=== PATIENT | female | born 2000 | race Caucasian/White ===

== ENCOUNTER 2024-02-06 09:15 | Outpatient (OUT) | payer OTHER, SELFPAY ==
[2024-02-06 10:31] LABS: Estimated Average Glucose 88 mg/dL; Glycohemoglobin A1C 4.7 % (4.5-6.2)
[2024-02-06 10:43] LABS: Thyroid Stimulating Hormone 1.626 uIU/mL (0.358-3.740); Total Protein 6.9 g/dL (6.4-8.2)
[2024-02-07 15:08] LABS: Beta-2 Glycoprotein I Ab, IgA <9 (0-25); Beta-2 Glycoprotein I Ab, IgG <9 (0-20); Beta-2 Glycoprotein I Ab, IgM <9 (0-32)
[2024-02-08 00:07] LABS: Antithrombin Activity 110 % (75-135); Protein C-Functional 101 % (73-180); Protein S, Free 95 % (61-136); Protein S, Total 58 % (60-150)
== END 2024-02-06 09:16 | disposition home or self-care (01) ==
PROVIDERS: PCP Family Medicine; Visit Provider Obstetrics & Gynecology
DX: O09.299 Supervision of pregnancy with other poor reproductive or obstetric history, unspecified trimester (principal); O26.899 Other specified pregnancy related conditions, unspecified trimester; D69.9 Hemorrhagic condition, unspecified; Z3A.00 Weeks of gestation of pregnancy not specified
CPT/HCPCS: 36415; 81241; 83036; 84155; 84443; 85300; 85303; 85305; 85306; 85613; 86146; 86147

== ENCOUNTER 2024-02-17 11:23 | Outpatient (OUT) | payer SELFPAY ==
--- OUTSIDE RECORDS SUMMARY | 2024-02-17 11:27 | XMS_ITS | CCD ---
Author Organization [facility] Care Team Providers Care District Administrator Name Role Phone KEYLA LEYVA Attending Unavailable Unavailable Primary Care Provider UnavailRina Carpio Unavailable MD Zachary Mayes Primary Care Provider DO Paloma Vazquez Attending Provider MD Zachary Mayes Primary Care Provider MD Jackie Reardon Attending Provider [phone] DO Gaby Woods Attending Provider Peggy, Gaby Attending Unavailable Peggy, Gaby Admitting Unavailable Brown, Zachary R Primary Care Unavailable Peggy, Gaby Attending Unavailable Peggy, Gaby Admitting Unavailable Brown, Zachary R Primary Care Unavailable Peggy, Gaby Admitting Unavailable Brown, Zachary R Primary Care Unavailable Peggy, Gaby Attending Unavailable Peggy, Gaby Admitting Unavailable Brown, Zachary R Primary Care Unavailable Peggy, Gaby Attending Unavailable Peggy, Gaby Admitting Unavailable Brown, Zachary R Primary Care Unavailable Peggy, Gaby Attending Unavailable Brown, Zachary R Primary Care Unavailable Peggy, Gaby Admitting Unavailable Peggy, Gaby Attending Unavailable Peggy, Gaby Admitting Unavailable Brown, Zachary R Primary Care Unavailable Peggy, Gaby Attending Unavailable Taylor, Paloma Admitting Unavailable Paloma Vazquez Attending Unavailable Brown, Zachary R Primary Care Unavailable Jackie Reardon Admitting Unavailable Jackie Reardon Attending Unavailable Brown, Zachary R Primary Care Unavailable PEGGY, GABY Attending Unavailable PEGGY, GBAY Attending Unavailable PALOMA VAZQUEZ E Attending Unavailable PALOMA VAZQUEZ Referring Unavailable PALOMA VAZQUEZ Referring Unavailable Allergies Allergy Classification Reported Allergen(s) Allergy Type Date of Onset Reaction(s) Facility (10 sources) Cephalexin Drug Allergy 9 Nausea And Vomiting [place] (10 sources) predniSONE Drug Allergy 9 Nausea And Vomiting [place] (1 source) Cephalexin Drug Allergy 0 [facility] (1 source) predniSONE Drug Allergy 0 [facility] Medications Current Medications Medication Drug Class(es) Dates Sig (Normalized) Sig (Original) ethinyl estradiol 0.03 mg / ferrous fumarate 75 mg / norethindrone 1.5 mg oral tablet (1 source) Estrogen take 1 tablet by mouth once daily, then take 1.5-30 tablets by mouth norethindrone-et hinyl estradiol-iron (AKIL FE 1.5/30) 1.5-30 MG-MCG tablet Take 1 tablet by mouth daily 0 Active ibuprofen 600 mg oral tablet (9 sources) Nonsteroidal Anti-inflammatory Drug Start: 11-20-2019 take 600 mg by mouth every six hours Ibuprofen Active 600 MG PO Q6H November 20, 2019 12:00am predniSONE 20 mg oral tablet (1 source) Start: 03-21-2023 take 1 tablet by mouth every twelve hours prednisone 20 MG 1 tablet Orally BID for 5 Mar, Active traMADol hydrochloride 50 mg oral tablet (9 sources) Opioid Agonist Start: 11-20-2019 take 50 mg by mouth every four to six hours Tramadol Active 50 MG PO EVERY 4-6 HOURS 30 November 20, 2019 12:00am Completed/Discontinued Medications Medication Drug Class(es) Dates Sig (Normalized) Sig (Original) acetaminophen 325 mg / HYDROcodone bitartrate 5 mg oral tablet (1 source) Opioid Agonist Start: 02-01-2019 End: 02-01-2019 HYDROcodone-acetam inophen (NORCO) 5-325 MG per tablet 1 tablet Problems Active Problems Problem Classification Problem Date Documented Date Episodic/Chronic Menstrual disorders (1 source) Irregular menstruation, unspecified; Translations: [Irregular menstruation, unspecified] Onset: 12-07-2023 Chronic Other complications of (1 source) Supervision of with other poor reproductive or obstetric history, unspecified trimester; Translations: [Supervision of with other poor reproductive or obstetric history, unspecified trimester] Onset: 12-22-2023 Episodic Other upper respiratory infections (2 sources) Acute pharyngitis, unspecified; Translations: [Acute upper respiratory infection, unspecified] Episodic Residual codes; unclassified (2 sources) Personal history of other complications of , childbirth and the puerperium; Translations: [Personal history of other complications of , childbirth and the puerperium] Onset: 05-01-2023 Episodic Past or Other Problems Problem Classification Problem Date Documented Da te Episodic/Chronic Abdominal pain (1 source) Right lower quadrant pain; Translations: [Abdominal pain, right lower quadrant] Episodic Other female genital disorders (1 source) H/O gynecological disorder; Translations: [History of ovarian cyst] Episodic Results Test Name Value Interpretation Reference Range Facility Choriogonadotropin.beta subu nit [Units/volume] in Serum or PlasmaOrdered By: Gaby Woods on 01-05-2024 HCG.beta subunit Qn 4.96 m[IU]/mL [facility] Comment on above: Approximate Approxim ate hCG Gestational Age Range (mIU/ml) (weeks)0.2-1 5-50 1-2 50-500 2-3 100-5,000 3-4 500-10,000 4-5 1,000-50,000 5-6 10,000-100,000 6-8 15,000-200,000 8-12 10,000-100,000 HCG,Quantitativeon 4 HCG,Quantitative 4.96 m[iU]/mL Normal [facility] Comment on above: Result Comment: Appr oximate Approximate hCG Gestational Age Range (mIU/ml) (weeks) 0.2-1 5-50 1-2 50-500 2-3 100-5,000 3-4 500-10,000 4-5 1,000-50,000 5-6 10,000-100,000 6-8 15,000-200,000 8-12 10,000-100,000 PERFORMED BY: [place] [id number] PATHOLOGIST SET UP INSPECTOR TO ANAYA M.D. Performed By: #### H CGQNT #### [address] Choriogonadotropin.beta subu nit [Units/volume] in Serum or PlasmaOrdered By: Gaby Woods on 12-28-2023 HCG.beta subunit Qn 108.32 m[IU]/mL [facility] Comment on above: Approximate Approxim ate hCG Gestational Age Range (mIU/ml) (weeks)0.2-1 5-50 1-2 50-500 2-3 100-5,000 3-4 500-10,000 4-5 1,000-50,000 5-6 10,000-100,000 6-8 15,000-200,000 8-12 10,000-100,000 HCG,Quantitativeon 4 HCG,Quantitative 108.32 m[iU]/mL Normal [facility] Comment on above: Result Comment: Appr oximate Approximate hCG Gestational Age Range (mIU/ml) (weeks) 0.2-1 5-50 1-2 50-500 2-3 100-5,000 3-4 500-10,000 4-5 1,000-50,000 5-6 10,000-100,000 6-8 15,000-200,000 8-12 10,000-100,000 PERFORMED BY: [place] [id number] PATHOLOGIST SET UP INSPECTOR TO ANAYA M.D. Performed By: #### H CGQNT #### [address] Choriogonadotropin.beta subu nit [Units/volume] in Serum or PlasmaOrdered By: Gaby Woods on 12-22-2023 HCG.beta subunit Qn 1030.88 m[IU]/mL [facility] Comment on above: Approximate Approxim ate hCG Gestational Age Range (mIU/ml) (weeks)0.2-1 5-50 1-2 50-500 2-3 100-5,000 3-4 500-10,000 4-5 1,000-50,000 5-6 10,000-100,000 6-8 15,000-200,000 8-12 10,000-100,000 HCG,Quantitativeon 4 HCG,Quantitative 1030.88 m[iU]/mL Normal [facility] Comment on above: Result Comment: Appr oximate Approximate hCG Gestational Age Range (mIU/ml) (weeks) 0.2-1 5-50 1-2 50-500 2-3 100-5,000 3-4 500-10,000 4-5 1,000-50,000 5-6 10,000-100,000 6-8 15,000-200,000 8-12 10,000-100,000 PERFORMED BY: [place] [address] PATHOLOGIST SET UP INSPECTOR TO ANAYA M.D. Performed By: #### H CGQNT ####[facility] [address] [place], [place] [address] Choriogonadotropin.beta subu nit [Units/volume] in Serum or PlasmaOrdered By: Gaby Woods on 12-20-2023 HCG.beta subunit Qn 988.06 m[IU]/mL [facility] Comment on above: Approximate Approxim ate hCG Gestational Age Range (mIU/ml) (weeks)0.2-1 5-50 1-2 50-500 2-3 100-5,000 3-4 500-10,000 4-5 1,000-50,000 5-6 10,000-100,000 6-8 15,000-200,000 8-12 10,000-100,000 HCG,Quantitativeon 4 HCG,Quantitative 988.06 m[iU]/mL Normal [facility] Comment on above: Result Comment: Appr oximate Approximate hCG Gestational Age Range (mIU/ml) (weeks) 0.2-1 5-50 1-2 50-500 2-3 100-5,000 3-4 500-10,000 4-5 1,000-50,000 5-6 10,000-100,000 6-8 15,000-200,000 8-12 10,000-100,000 PERFORMED BY: [address] [address] PATHOLOGIST SET UP INSPECTOR TO ANAYA M.D. Performed By: #### H CGQNT #### [facility] [address] [place] [address] [facility] US OB transvaginalon 024 US OB transvaginal [facility] [address] [place] [address] Ultrasound Report Signed Patient: Daphney Al MR#: [id number] : 2000 Acct:[id number] Age/Sex: 23 / F ADM Date: 12/20/23 Loc: Room: Type: [facility] Attending Dr: Gaby Woods DO Ordering Provider: Gaby Woods Date of Service: 12/20/23 US/US OB <= 14 weeks fetus: N92.6 ([id number]) US/US OB transvaginal: N92.6 Copies to: Gaby Woods FIRST TRIMESTER OB ULTRASOUND (transabdominal and transvaginal) COMPARISON: None CLINICAL DATA: Missed menses. History of endometriosis. No current available beta-hCG. Real-time ultrasound evaluation the pelvis was performed utilizing both a transabdominal and transvaginal approach. TRANSABDOMINAL: Estimated uterine size is approximately 9.4 x 3.7 x 5.9 cm. No obvious gestational sac is seen by this approach. The endometrial lining measures 9 - 10 mm in thickness. Both ovaries are seen. There are no dominant adnexal cysts. TRANSVAGINAL: Transvaginal scans were performed to better evaluate the uterus and adnexa. There is a tiny cystic area within the endometrial canal at the fundus. If this is a gestational sac, based on the mean gestational sac size of 3.4 mm, this would correlate with an ultrasound age of 4 weeks 6 days. The estimated date of delivery would be August 22, 2024. There is a hypoechoic area at the myometrium anteriorly toward the left measuring 16 x 10 x 13 mm that may be a fibroid. Both ovaries are again seen. The right measures 4.7 x 3.2 x 3.8 cm. There is a hypoechoic area measuring 3.6 x 2.7 x 3.3 cm. The left ovary measures 4.5 x 3.0 x 4.8 cm. It contains a hypoechoic area measuring approximately 3.4 x 2.4 x 2.9 cm. These hypoechoic areas may be a chocolate cysts/endometrioma given the history of endometriosis. There is documentation of ovarian blood flow. US/US OB <= 14 weeks fetus IMPRESSION: POSSIBLE VERY EARLY INTRAUTERINE 4 WEEKS 6 DAYS. FOLLOW-UP SERIAL BETA-HCG IS RECOMMENDED ALONG WITH REPEAT ULTRASOUND, WARRANTED. POTENTIAL SMALL UTERINE FIBROID. HYPOECHOIC NODULAR AREAS AT BOTH OVARIES THAT MAY BE ENDOMETRIOMAS GIVEN HISTORY OF ENDOMETRIOSIS. Impression dictated by: Lisa Rojas M.D.12/20/2023 5:46 PM Dictation Location: [place] [address] Tech: Deb Real Transcribed By: FLETCHER 12/20/23 174 Dictated By: Lisa Rojas MD 12/20/23 1739 Signed By: 12/20/23 174 Normal [facility] Choriogonadotropin.beta subu nit [Units/volume] in Serum or PlasmaOrdered By: Gaby Woods on 12-09-2023 HCG.beta subunit Qn 295.86 m[IU]/mL [facility] Comment on above: Approximate Approxim ate hCG Gestational Age Range (mIU/ml) (weeks)0.2-1 5-50 1-2 50-500 2-3 100-5,000 3-4 500-10,000 4-5 1,000-50,000 5-6 10,000-100,000 6-8 15,000-200,000 8-12 10,000-100,000 HCG,Quantitativeon 4 HCG,Quantitative 295.86 m[iU]/mL Normal [facility] Comment on above: Result Comment: Appr oximate Approximate hCG Gestational Age Range (mIU/ml) (weeks) 0.2-1 5-50 1-2 50-500 2-3 100-5,000 3-4 500-10,000 4-5 1,000-50,000 5-6 10,000-100,000 6-8 15,000-200,000 8-12 10,000-100,000 PERFORMED BY: [address] [address] PATHOLOGIST SET UP INSPECTOR TO ANAYA M.D. Performed By: #### H CGQNT #### [address] [place] [address] [place] Choriogonadotropin.beta subu nit [Units/volume] in Serum or PlasmaOrdered By: Gaby Woods on 12-07-2023 HCG.beta subunit Qn 135.80 m[IU]/mL [facility] Comment on above: Approximate Approxim ate hCG Gestational Age Range (mIU/ml) (weeks)0.2-1 5-50 1-2 50-500 2-3 100-5,000 3-4 500-10,000 4-5 1,000-50,000 5-6 10,000-100,000 6-8 15,000-200,000 8-12 10,000-100,000 HCG,Quantitativeon 4 HCG,Quantitative 135.80 m[iU]/mL Normal [facility] Comment on above: Result Comment: Appr oximate Approximate hCG Gestational Age Range (mIU/ml) (weeks) 0.2-1 5-50 1-2 50-500 2-3 100-5,000 3-4 500-10,000 4-5 1,000-50,000 5-6 10,000-100,000 6-8 15,000-200,000 8-12 10,000-100,000 PERFORMED BY: [place] [address] PATHOLOGIST SET UP INSPECTOR TO ANAYA M.D. Performed By: #### H CGQNT #### [facility] [address] [place] [address] Choriogonadotropin.beta subu nit [Units/volume] in Serum or PlasmaOrdered By: AMBAR Reardon on 12-05-2023 HCG.beta subunit Qn 69.85 m[IU]/mL [facility] Comment on above: Approximate Approxim ate hCG Gestational Age Range (mIU/ml) (weeks)0.2-1 5-50 1-2 50-500 2-3 100-5,000 3-4 500-10,000 4-5 1,000-50,000 5-6 10,000-100,000 6-8 15,000-200,000 8-12 10,000-100,000 HCG,Quantitativeon 07-23-202 4 HCG,Quantitative 69.85 m[iU]/mL Normal [facility] Comment on above: Result Comment: Appr oximate Approximate hCG Gestational Age Range (mIU/ml) (weeks) 0.2-1 5-50 1-2 50-500 2-3 100-5,000 3-4 500-10,000 4-5 1,000-50,000 5-6 10,000-100,000 6-8 15,000-200,000 8-12 10,000-100,000 PERFORMED BY: [place] [address] PATHOLOGIST SET UP INSPECTOR TO ANAYA M.D. Performed By: #### H CGQNT #### [address] Progesteroneon 12-05-2023 Progesterone 26.5 ng/mL Normal . [facility] Comment on above: Result Comment: Foll icular phase 0.1 - 0.9 Luteal phase 1.8 - 23.9 Ovulation phase 0.1 - 12.0 First trimester 11.0 - 44.3 Second trimester 25.4 - 83.3 Third trimester 58.7 - 214.0 Postmenopausal 0.0 - 0.1 Performed at: [facility] [address] [id number] Security Flex Officer: Jordin Rao PhD, Phone: [phone] PERFORMED BY: [place] [address] PATHOLOGIST SET UP INSPECTOR TO ANAYA M.D. Performed By: #### P JOO #### [facility] , Serum or plasma progesterone measurement (mass/volume)Ordered By: Gaby Woods on 12-05-2023 Progesterone [Mass/Vol] 26.5 ng/mL . [facility] Comment on above: Follicular phase 0.1 - 0.9 Luteal phase 1.8 - 23.9 Ovulation phase 0.1 - 12.0 First trimester 11.0 - 44.3 Second trimester 25.4 - 83.3 Third trimester 58.7 - 214.0 Postmenopausal 0.0 - 0.1Performed at: [facility] [address] [place], [place] [id number] Director: Jordin Rao PhD, Phone: [phone] Choriogonadotropin.beta subu nit [Units/volume] in Serum or PlasmaOrdered By: AMBAR Reardon on 12-02-2023 HCG.beta subunit Qn 12.64 m[IU]/mL [facility] Comment on above: Approximate Approxim ate hCG Gestational Age Range (mIU/ml) (weeks)0.2-1 5-50 1-2 50-500 2-3 100-5,000 3-4 500-10,000 4-5 1,000-50,000 5-6 10,000-100,000 6-8 15,000-200,000 8-12 10,000-100,000 HCG,Quantitativeon 4 HCG,Quantitative 12.64 m[iU]/mL Normal [facility] Comment on above: Result Comment: Appr oximate Approximate hCG Gestational Age Range (mIU/ml) (weeks) 0.2-1 5-50 1-2 50-500 2-3 100-5,000 3-4 500-10,000 4-5 1,000-50,000 5-6 10,000-100,000 6-8 15,000-200,000 8-12 10,000-100,000 PERFORMED BY: [place] [address] PATHOLOGIST SET UP INSPECTOR TO ANAYA M.D. Performed By: #### H CGQNT #### [address] Operative Reporton 3 Operative Report [id number] 20 [id number]#[id number] [id number] Normal [facility] FL hysterosalpingographyon 1 07-02-2022 [place] hysterosalpingography [facility] Main [place] [address] [place], [place] [id number] Fluoroscopy Report Signed Patient: Daphney Al MR#: [id number] : 2000 Acct:[id number] Age/Sex: 23 / F ADM Date: 05/01/23 Loc: XD Room: Type: [facility] Attending Dr: Paloma Vazquez DO Copies to: Paloma Vazquez DO Ordering Provider: Paloma Vazquez DO Date of Service: 05/01/23 FL/FL hysterosalpingography: Z87.59 05/01/2023 6:47 AM SIGNS AND SYMPTOMS: Check for tubal patency, history of endometriosis with 3 miscarriages PROTOCOL: Intraoperative views of the pelvis were obtained during contrast administration through the endometrial canal via the cervix. CONTRAST: 10 mL of Omnipaque 200 COMPARISON: None FINDINGS: Contrast fills the endometrial canal with free passage of contrast through the fallopian tubes spilling into the pelvis bilaterally. Cumulative Air Kerma in mGy: 34.15 mGy FL/FL hysterosalpingography IMPRESSION: Normal hysterosalpingogram. Impression dictated by: Librado Haney M.D.05/01/2023 11:43 AM Dictation Location: [place] [address] Transcribed By: [facility] 05/01/23 1143 Dictated By: Librado Haney II, MD 05/01/23 1141 Signed By: 05/01/23 1143 Normal [facility] Quick Strepon 03-21-2023 S. pyogenes Org specific cx Ql (Throat) Negative Synchro Other Quick Strep Synchro Other CBC Auto Differentialon 09-2 0 Basophils (Bld) [#/Vol] 0.00 10*3/uL [facility] [place] Basophils/100 WBC (Bld) 0 % 0 - 2 % [place], [place] Differential Type YES [place], [place] Eosinophils (Bld) [#/Vol] 0.20 10*3/uL [facility], [place] Eosinophils/100 WBC (Bld) 2 % 0 - 5 % [facility] Erythrocyte distribution width (RBC) [Ratio] 12.6 % 12.1 - 15.2 % [facility] [place] Hematocrit (Bld) [Volume fraction] 39.8 % 36 - 46 % [place], [place] Hemoglobin (Bld) [Mass/Vol] 13.8 g/dL 12 - 16 g/dL [place] Interpretation and review of laboratory results Abnormal [place] Lymphocytes (Bld) [#/Vol] 1.70 10*3/uL [place] Lymphocytes/100 WBC (Bld) 14 % Low 15 - 40 % [place] MCH (RBC) [Entitic mass] 31.5 pg 26 - 34 pg [place] MCHC (RBC) [Mass/Vol] 34.6 g/dL 31 - 3 7 g/dL [place] MCV (RBC) [Entitic vol] 91.2 fL 80 - 100 fL [place] Monocytes (Bld) [#/Vol] 0.60 10*3/uL [place] Monocytes/100 WBC (Bld) 5 % 4 - 8 % M [place], [place] Platelet mean volume (Bld) [Entitic vol] NOT REPORTED 6 - 12 fL [place], [place] Platelets (Bld) [#/Vol] NOT REPORTED [place] Platelets (Bld) [#/Vol] 287 10*3/uL [place] RBC (Bld) [#/Vol] 4.37 10*6/uL 4 - 5.2 m/uL [place] RBC morphology finding Nom (Bld) NOT REPORTED [place] Segmented neutrophils/100 WBC (Bld) 79 % High 47 - 75 % [place] Segs Absolute 9.50 High [place], [place] WBC (Bld) [#/Vol] 12.0 10*3/uL [place] WBC (Bld) [#/Vol] NOT REPORTED per 100 WBC [place] WBC Morphology NOT REPORTED [place], [place] CBC with Diffon 02-01-2019 Abs. Basophil 0.00 k/uL Normal 0.0-0.2 [facility] Comment on above: Performed By: #### C P, CDP #### [facility] [address] [place] [address] Security Flex Officer: Jonathan Chisholm MD Abs.Neutrophil (Seg) 9.50 k/uL High 2.5-7.0 [facility] Comment on above: Performed By: #### C P, CDP #### [facility] [address] [place] [address] Security Flex Officer: Jonathan Chisholm MD Auto Diff Performed YES Normal [facility] Comment on above: Performed By: #### C P, CDP #### [facility] [address] [place] [address] Security Flex Officer: Jonathan Chisholm MD Basophils/100 WBC (Bld) 0 % Normal 0-2 [facility] Comment on above: Performed By: #### C P, CDP #### [facility] [address] [place] [id number] Security Flex Officer: Jonathan Chisholm MD Eosinophils (Bld) [#/Vol] 0.20 10*3/uL Normal 0.0-0.4 [facility] Comment on above: Performed By: #### C P, CDP #### [facility] [address] [place] [address] Security Flex Officer: Jonathan Chisholm MD Eosinophils/100 WBC (Bld) 2 % Normal 0-5 [facility] Comment on above: Performed By: #### C P, CDP #### [facility] [address] [place] [address] Security Flex Officer: Jonathan Chisholm MD Erythrocyte distribution width (RBC) [Ratio] 12.6 % Normal 12.1-15.2 [facility] Comment on above: Performed By: #### C P, CDP #### [facility] [address] [place] [address] Security Flex Officer: Jonathan Chisholm MD Hematocrit (Bld) [Volume fraction] 39.8 % Normal 36-46 [facility] Comment on above: Performed By: #### C P, CDP #### [facility] [address] [place] [address] Security Flex Officer: Jonathan Chisholm MD Hemoglobin (Bld) [Mass/Vol] 13.8 g/dL Normal 12.0-16.0 [facility] Comment on above: Performed By: #### C P, CDP #### [facility] [address] [place] [address] Security Flex Officer: Jonathan Chisholm MD Lymphocytes (Bld) [#/Vol] 1.70 10*3/uL Normal 1.2-5.2 [facility] Comment on above: Performed By: #### C P, CDP #### [facility] [address] [place] [address] Security Flex Officer: Jonathan Chisholm MD Lymphocytes/100 WBC (Bld) 14 % Low 15-40 [facility] Comment on above: Performed By: #### C P, CDP #### [facility] [address] [place] [address] Security Flex Officer: Jonathan Chisholm MD MCH (RBC) [Entitic mass] 31.5 pg Normal 26-34 [facility] Comment on above: Performed By: #### C P, CDP #### [facility] [address] [place] [address] Security Flex Officer: Jonathan Chisholm MD MCHC (RBC) [Mass/Vol] 34.6 g/dL Normal 31-37 [facility] Comment on above: Performed By: #### C P, CDP #### [facility] [address] [place] [address] Security Flex Officer: Jonathan Chisholm MD MCV (RBC) [Entitic vol] 91.2 fL Normal 80-100 [facility] Comment on above: Performed By: #### C P, CDP #### [facility] [address] [place] [address] Security Flex Officer: Jonathan Chisholm MD Monocytes (Bld) [#/Vol] 0.60 10*3/uL Normal 0.0-1.0 [facility] Comment on above: Performed By: #### C P, CDP #### [facility] [address] [place] [address] [phone] Security Flex Officer: Jonathan Chisholm MD Monocytes/100 WBC (Bld) 5 % Normal 4-8 [facility] Comment on above: Performed By: #### C P, CDP #### [facility] [address] [place] [address] [phone] Security Flex Officer: Jonathan Chisholm MD Neutrophil (Seg) 79 % High 47-75 [facility] Comment on above: Performed By: #### C P, CDP #### [facility] [address] [place] [address] Security Flex Officer: Jonathan Chisholm MD Platelets (Bld) [#/Vol] 287 10*3/uL Normal 140-450 [facility] Comment on above: Performed By: #### C P, CDP #### [facility] [address] [place] [address] [phone] Security Flex Officer: Jonathan Chisholm MD RBC (Bld) [#/Vol] 4.37 10*6/uL Normal 4.0-5.2 [facility] Comment on above: Performed By: #### C P, CDP #### [facility] [address] [place] [address] [phone] Security Flex Officer: Jonathan Chisholm MD WBC (Bld) [#/Vol] 12.0 10*3/uL Normal 4.5-13.5 [facility] Comment on above: Performed By: #### C P, CDP #### [facility] [address] [place] [address] [phone] Security Flex Officer: Jonathan Chisholm MD Abs.Imm.Granulocyte NOT REPORTED Normal 0.00-0.30 [facility] Comment on above: Performed By: #### C P, CDP #### [facility] [address] [place], [place] [phone] Security Flex Officer: Jonathan Chisholm MD Immature granulocytes (Bld) [#/Vol] NOT REPORTED Normal 0 [facility] Comment on above: Performed By: #### C P, CDP #### [facility] [address] [place], [place] [id number] [phone] Security Flex Officer: Jonathan Chisholm MD NRBC Automated NOT REPORTED Normal [facility] [facility] Comment on above: Performed By: #### C P, CDP #### [facility] [address] [place] [address] Security Flex Officer: Jonathan Chisholm MD Platelet mean volume (Bld) [Entitic vol] NOT REPORTED Normal 6.0-12.0 [facility] Comment on above: Performed By: #### C P, CDP #### [facility] [address] [place], [place] [phone] Security Flex Officer: Jonathan Chisholm MD Platelets (Bld) [#/Vol] NOT REPORTED Normal [facility] Comment on above: Performed By: #### C P, CDP #### [facility] [address] [place] [address] Security Flex Officer: Jonathan Chisholm MD RBC morphology finding Nom (Bld) NOT REPORTED Normal [facility] Comment on above: Performed By: #### C P, CDP #### [facility] [address] [facility] [place] [address] Security Flex Officer: Jonathan Chisholm MD WBC Morphology NOT REPORTED Normal [facility] Comment on above: Performed By: #### C P, CDP #### [facility] [address] [place] [address] Security Flex Officer: Jonathan Chisholm MD Comp Metabolic Profon 2018 (cont.) Normal [facility] Comment on above: Result Comment: Aver age GFR for 20-29 years old: 116 mL/min/1.73sq m Chronic Kidney Disease: <60 mL/min/1.73sq m Kidney failure: <15 mL/min/1.73sq m eGFR calculated using average adult body mass. Additional eGFR calculator available at: http://www.Bluetector/multiple_crcl_2012.htm Performed By: #### C P, CDP #### [facility] [address] [place], [place] [phone] Security [employer] Officer: Jonathan Chisholm MD Albumin [Mass/Vol] 4.1 g/dL Normal 3.5-5.2 [facility] Comment on above: Performed By: #### C P, CDP #### [facility] [address] [place], [place] [phone] Security [employer] Officer: Jonathan Chisholm MD Alkaline Phos 63 U/L Normal 35-104 [facility] Comment on above: Performed By: #### C P, CDP #### [facility] [address] [place], [place] [phone] Security [employer] Officer: Jonathan Chisholm MD ALT [Catalytic activity/Vol] 8 U/L Normal 5-33 [facility] Comment on above: Performed By: #### C P, CDP #### [facility] [address] [place], [place] [phone] Security Flex Officer: Jonathan Chisholm MD Anion gap [Moles/Vol] 12 mmol/L Normal 9-17 [facility] Comment on above: Performed By: #### C P, CDP #### [facility] [address] [place], [place] [phone] Security Flex Officer: Jonathan Chisholm MD AST [Catalytic activity/Vol] 13 U/L Normal <32 [facility] Comment on above: Performed By: #### C P, CDP #### [facility] [address] [place], [place] [phone] Security Flex Officer: Jonathan Chisholm MD Bilirubin Ql (U) 0.40 mg/dL Normal 0.30-1.20 [facility] Comment on above: Performed By: #### C P, CDP #### [facility] [address] [place] [address] Security Flex Officer: Jonathan Chisholm MD BUN/CRE Ratio 13 Normal 9-20 [facility] Comment on above: Performed By: #### C P, CDP #### [facility] [address] [place] [phone] Security Flex Officer: Jonathan Chisholm MD Calcium [Mass/Vol] 9.1 mg/dL Normal 8.6-10.4 [facility] Comment on above: Performed By: #### C P, CDP #### [facility] [address] [place] [address] Security Flex Officer: Jonathan Chisholm MD Chloride [Moles/Vol] 103 mmol/L Normal 98-107 [facility] Comment on above: Performed By: #### C P, CDP #### [facility] [address] [place] [address] Security Flex Officer: Jonathan Chisholm MD CO2 [Moles/Vol] 24 mmol/L Normal 20-31 [facility] Comment on above: Performed By: #### C P, CDP #### [facility] [address] [place] [address] Security Flex Officer: Jonathan Chisholm MD Creatinine [Mass/Vol] 0.61 mg/dL Normal 0.50-0.90 [facility] Comment on above: Performed By: #### C P, CDP #### [facility] [address] [place] [address] Security Flex Officer: Jonathan Chisholm MD GFR, Amer >60 Normal >60 [facility] Comment on above: Performed By: #### C P, CDP #### [facility] [address] [place] [address] Security Flex Officer: Jonathan Chisholm MD GFR,non Amer >60 Normal >60 [facility] Comment on above: Performed By: #### C P, CDP #### [facility] [address] [place], [place] [phone] Security Flex Officer: Jonathan Chisholm MD Glucose [Mass/Vol] 94 mg/dL Normal 70-99 [facility] Comment on above: Performed By: #### C P, CDP #### [facility] [address] [place], [place] [phone] Security Flex Officer: Jonathan Chisholm MD Potassium [Moles/Vol] 3.8 mmol/L Normal 3.7-5.3 [facility] Comment on above: Performed By: #### C P, CDP #### [facility] [address] [place] [address] Security Flex Officer: Jonathan Chisholm MD Protein [Mass/Vol] 7.1 g/dL Normal 6.4-8.3 [facility] Comment on above: Performed By: #### C P, CDP #### [facility] [address] [place] [address] Security Flex Officer: Jonathan Chisholm MD Sodium [Moles/Vol] 139 mmol/L Normal 135-144 [facility] Comment on above: Performed By: #### C P, CDP #### [facility] [address] [place] [address] Security Flex Officer: Jonathan Chisholm MD Urea nitrogen [Mass/Vol] 8 mg/dL Normal 6-20 [facility] Comment on above: Performed By: #### C P, CDP #### [facility] [address] [place] [address] Security Flex Officer: Jonathan Chisholm MD Albumin/Globulin [Mass ratio] NOT REPORTED Normal 1.0-2.5 [facility] Comment on above: Performed By: #### C P, CDP #### [facility] [address] [place] [address] Security Flex Officer: Jonathan Chisholm MD Staging: NOT REPORTED Normal [facility] Comment on above: Performed By: #### C P, CDP #### [facility] [address] [place] [address] Security Flex Officer: Jonathan Chisholm MD Comprehensive Metabolic Pane markus 02-01-2019 Albumin [Mass/Vol] 4.1 g/dL 3.5 - 5.2 g/dL [place] Albumin/Globulin [Mass ratio] NOT REPORTED [place] ALP [Catalytic activity/Vol] 63 U/L 35 - 104 U/L [place] ALT [Catalytic activity/Vol] 8 U/L 5 - 33 U/L [place] Anion gap [Moles/Vol] 12 mmol/L 9 - 17 mmol/L [place] AST [Catalytic activity/Vol] 13 U/L <32 [place] Bilirubin Ql (U) 0.40 mg/dL 0.3 - 1.2 mg/dL [place] Bun/Cre Ratio 13 [place] Calcium [Mass/Vol] 9.1 mg/dL 8.6 - 10. 4 mg/dL [place] Chloride [Moles/Vol] 103 mmol/L 98 - 10 7 mmol/L [place] CO2 [Moles/Vol] 24 mmol/L 20 - 31 mmol/L [place] Creatinine [Mass/Vol] 0.61 mg/dL 0.5 - 0.9 mg/dL [place] GFR >60 >60 mL/min [place] GFR Non- >60 >60 mL/min [place] GFR/1.73 sq M predicted among non-blacks MDRD (S/P/Bld) [Vol rate/Area] NOT REPORTED [place] GFR/1.73 sq M predicted among non-blacks MDRD (S/P/Bld) [Vol rate/Area] [place] Comment on above: Average GFR for 20-2 9 years old: 116 mL/min/1.73sq m Chronic Kidney Disease: <60 mL/min/1.73sq m Kidney failure: <15 mL/min/1.73sq m eGFR calculated using average adult body mass. Additional eGFR calculator available at: http://www.Bluetector/multiple_crcl_2012.htm Glucose [Mass/Vol] 94 mg/dL 70 - 99 mg/dL [place] Potassium [Moles/Vol] 3.8 mmol/L 3.7 - 5.3 mmol/L [place] Protein [Mass/Vol] 7.1 g/dL 6.4 - 8.3 g/dL [place] Sodium [Moles/Vol] 139 mmol/L 135 - 144 mmol/L [place] Urea nitrogen [Mass/Vol] 8 mg/dL 6 - 20 mg/dL [place] HCG, ,Urineon 02-01 Beta HCG ( test) Ql (U) Negative Normal NEG [facility] Comment on above: Performed By: #### U MICAO, CG, UA #### [facility] [address] [place] [address] Security Flex Officer: Jonathan Chisholm MD Microscopic Urinalysison Amorphous, UA NOT REPORTED None [place] Bacteria, UA 3+ Abnormal None [place] Casts UA NOT REPORTED /LPF [place] Crystals UA NOT REPORTED None /HPF [place] Epithelial Cells UA 20 TO 50 /HPF [place] Interpretation and review of laboratory results Abnormal [place] Mucus, UA 2+ Abnormal None [place] Other Observations UA NOT REPORTED NOT REQ. M [place] RBC (U) [#/Vol] 2 TO 5 [place] Renal Epithelial, Urine NOT REPORTED 0 /HPF [place] Trichomonas, UA NOT REPORTED None [place] WBC, UA 2 TO 5 0 /HPF [place] Yeast, UA NOT REPORTED None [place] Otheron 02-01-2019 Immature granulocytes (Bld) [#/Vol] NOT REPORTED [place] , Urineon 9 Beta HCG ( test) Ql (U) Negative NEGATIVE [place] Urinalysison 02-01-2019 Bilirubin Urine Negative NEGATIVE [place] Color, UA YELLOW YELLOW [place] Glucose, Ur Negative NEGATIVE [place] Interpretation and review of laboratory results Abnormal [place] Ketones Ql (U) TRACE Abnormal NEGATIVE [place] Leukocyte esterase Test strip Ql (U) Negative NEGATIVE [place] Nitrite, Urine Negative NEGATIVE [place] pH, UA 6.0 [place] Protein (U) [Mass/Vol] 1+ Abnormal NEGATIVE [place] Specific [place], UA 1.020 [place] Turbidity UA CLEAR CLEAR [place] Urinalysis Comments [place] Urine Hgb 3+ Abnormal NEGATIVE [place] Urobilinogen, Urine Normal Normal [place] Urinalysis, Routineon 2018 Acetoacetic Acid,Ur TRACE Abnormal NEG [facility] Comment on above: Performed By: #### U PREMA, [facility], UA #### [facility] [address] [place] [address] Security Flex Officer: Jonathan Chisholm MD Bilirubin, SemiQt,Ur Negative Normal NEG [facility] Comment on above: Performed By: #### U MICAO, [facility], UA #### [facility] [address] [place] [address] Security Flex Officer: Jonathan Chisholm MD Color (U) YELLOW Normal L [facility] Comment on above: Performed By: #### U MICAO, [facility], UA #### [facility] [address] [place], [place] [phone] Security Flex Officer: Jonathna Chisholm MD Comment Normal [facility] Comment on above: Performed By: #### U MICAO, [facility], UA #### [facility] [address] [place] [address] Security Flex Officer: Jonathan Chisholm MD Glucose Ql (U) Negative Normal NEG [facility] Comment on above: Performed By: #### U MICAO, [facility], UA #### [facility] [address] [place], [place] [phone] Security Flex Officer: Jonathan Chisholm MD Hemoglobin, Ur 3+ Abnormal NEG [facility] Comment on above: Performed By: #### U MICAO, [facility], UA #### [facility] [address] [place] [address] Security Flex Officer: Jonathan Chisholm MD Leukocyte esterase Test strip Ql (U) Negative Normal NEG [facility] Comment on above: Performed By: #### U MICAO, [facility], UA #### [facility] [address] [place], [place] [phone] Security Flex Officer: Jonathan Chisholm MD Nitrite,Ur Negative Normal [facility] Comment on above: Performed By: #### U MICAO, [facility], UA #### [facility] [address] [place], [place] [phone] Security Flex Officer: Jonathan Chisholm MD pH (U) 6.0 [pH] Normal 5.0-8.0 [facility] Comment on above: Performed By: #### U MICAO, [facility], UA #### [facility] [address] [place], [place] [phone] Security Flex Officer: Jonathan Chisholm MD Protein Ql (U) 1+ Abnormal NEG [facility] Comment on above: Performed By: #### [facility]O, [facility] #### [facility] [address] [place] [address] Security Flex Officer: Jonathan Chisholm MD Specific gravity (U) [Rel density] 1.020 Normal 1.005-1.03 0 [facility] Comment on above: Performed By: #### U MICAO, [facility], UA #### [facility] [address] [place] [address] Security Flex Officer: Jonathan Chisholm MD Turbidity CLEAR Normal CLEAR [facility] Comment on above: Performed By: #### U MICAO, [facility], UA #### [facility] [address] [place] [address] Security Flex Officer: Jonathan Chisholm MD Urobilinogen,Ur Normal Normal NORM [facility] Comment on above: Performed By: #### U JAZMINEO, [facility], UA #### [facility] [address] [place] [address] Security Flex Officer: Jonathan Chisholm MD Urinalysis,Microon 9 ----- Normal [facility] Comment on above: Performed By: #### U MICAO, [facility], UA #### [facility] [address] [place] [address] Security Flex Officer: Jonathan Chisholm MD Bacteria LM.HPF (Urine sed) [#/Area] 3+ Abnormal NONE [facility] Comment on above: Performed By: #### U MICAO, [facility], UA #### [facility] [address] [place] [address] Security Flex Officer: Jonathan Chisholm MD Epithelial cells LM.HPF (Urine sed) [#/Area] 20 TO 50 Normal [facility] Comment on above: Performed By: #### U MICAO, [facility], UA #### [facility] [address] [place] [address] Security Flex Officer: Jonathan Chisholm MD Mucus Strands 2+ Abnormal NONE [facility] Comment on above: Performed By: #### U PREMA, [facility], UA #### [facility] [address] [place], [place] [phone] Security Flex Officer: Jonathan Chisholm MD RBC (U) [#/Vol] 2 TO 5 Normal 0-2 [facility] Comment on above: Performed By: #### U PREMA, [facility], UA #### [facility] [address] [place], [place] [phone] Security Flex Officer: Jonathan Chisholm MD WBC (U) [#/Vol] 2 TO 5 Normal 0 [facility] Comment on above: Performed By: #### U PREMA, [facility], UA #### [facility] [address] [place] [address] Security Flex Officer: Jonatahn Chisholm MD Amorphous sediment LM Ql (Urine sed) NOT REPORTED Normal [facility] Comment on above: Performed By: #### U PREMA, [facility], UA #### [facility] [address] [place] [address] Security Flex Officer: Jonathan Chisholm MD Casts LM.LPF (Urine sed) [#/Area] NOT REPORTED Normal [facility] Comment on above: Performed By: #### U PREMA [facility], UA #### [facility] [address] [place], [place] [phone] Security Flex Officer: Jonathan Chisholm MD Crystals LM Nom (Urine sed) NOT REPORTED Normal [facility] Comment on above: Performed By: #### U MICAO, [facility], UA #### [facility] [address] [place] [address] Security Flex Officer: Jonathan Chisholm MD Epithelial, Renal NOT REPORTED Normal 0 [facility] Comment on above: Performed By: #### U MICAO, [facility], UA #### [facility] [address] [facility], [place] [phone] Security Flex Officer: Jonathan Chisholm MD Other Observations NOT REPORTED Normal NREQ [facility] Comment on above: Performed By: #### U JAZMINEO, [facility], UA #### [facility] [address] [place] [address] Security Flex Officer: Jonathan Chisholm MD Trichomonas NOT REPORTED Normal NONE [facility] Comment on above: Performed By: #### U JAZMINEO, [facility], UA #### [facility] [address] [facility] [place] [address] Security Flex Officer: Jonathan Chisholm MD Yeast LM Ql (Urine sed) NOT REPORTED Normal NONE [facility] Comment on above: Performed By: #### U JAZMINE, [facility], UA #### [facility] [address] [place] [address] Security Flex Officer: Jonathan Chisholm MD Vital Signs Date Time Vital Sign Value Performing Clinician Facility 03-21-2023 18:10-0500 Body height 167.64 cm Rina Anton Other [facility] Other 03-21-2023 18:10-0500 Body mass index (BMI) [Ratio] 26.95 kg/m2 Rina Anton Other [facility] Other 03-21-2023 18:10-0500 Body temperature 98.9 [degF] Rina Anton Other [facility] Other 03-21-2023 18:10-0500 Body weight 75.75 kg Rina Anton Other [facility] Other 03-21-2023 18:10-0500 Respiratory rate 18 /min Rina Anton Other [facility] Other 03-21-2023 18:10-0500 SaO2% (BldA) [Mass fraction] 97 % Rina Anton Other [facility] Other 02-01-2019 06:41-0400 BP Diastolic 64 mm[Hg] [facility] 02-01-2019 06:41-0400 BP Systolic 107 mm[Hg] [facility] [place] 02-01-2019 06:41-0400 Pulse (Heart Rate) 64 /min [facility] - [place] 02-01-2019 04:30-0400 Body Temperature 98.01 [degF] [facility]- [place] 02-01-2019 04:30-0400 Body weight 58.92 kg [facility] [employer] [place] 02-01-2019 04:30-0400 Pulse Oximetry 100 % [facility] 02-01-2019 04:30-0400 Respiratory Rate 18 /min [facility] [place] Encounters Encounter Date Encounter Type Care Provider Facility Start: 2024 End: 2024 ambulatory GABY WOODS Not Available Start: 01-05-2024 End: 01-05-2024 Patient encounter procedure MD Zachary Mayes Work Phone: [facility] [place] Work Phone: Start: 01-05-2024 End: 01-05-2024 ambulatory MD Zachary Mayes Work Phone: [facility] Work Phone: Start: 12-28-2023 End: 12-28-2023 Patient encounter procedure MD Zachary Mayes Work Phone: [facility] [place] Work Phone: Start: 12-28-2023 End: 12-28-2023 ambulatory MD Zachary Mayes Work Phone: [facility] Work Phone: Start: 12-22-2023 End: 12-22-2023 Patient encounter procedure MD Zachary Mayes Work Phone: [facility] [place] Work Phone: Start: 12-22-2023 End: 12-22-2023 ambulatory MD Zachary Mayes Work Phone: [facility] Work Phone: Start: 12-21-2023 End: 12-21-2023 ambulatory GABY WOODS Not Available Start: 12-20-2023 End: 12-20-2023 Patient encounter procedure MD Zachary Mayes Work Phone: [facility] [place] Work Phone: Start: 12-20-2023 End: 12-20-2023 ambulatory MD Zachary Mayes Work Phone: [facility] Work Phone: Start: 12-09-2023 End: 12-09-2023 Patient encounter procedure MD Zachary Mayes Work Phone: [facility] [place] Work Phone: Start: 12-09-2023 End: 12-09-2023 ambulatory MD Zachary Mayes Work Phone: [facility] Work Phone: Start: 12-07-2023 End: 12-07-2023 Patient encounter procedure MD Zachary Mayes Work Phone: [facility] [place] Work Phone: Start: 12-07-2023 End: 12-07-2023 ambulatory MD Zachary Mayes Work Phone: [facility] Work Phone: Start: 12-05-2023 End: 12-05-2023 Patient encounter procedure MD Zachary Mayes Work Phone: [facility] [place] Work Phone: Start: 12-05-2023 End: 12-05-2023 ambulatory MD Zachary Mayes Work Phone: [facility] Work Phone: Start: 12-02-2023 End: 12-02-2023 ambulatory MD Zachary Mayes Work Phone: [facility] Work Phone: Start: 12-02-2023 End: 12-02-2023 Patient encounter procedure MD Zachary Mayes Work Phone: [facility] [place] Work Phone: Start: 05-02-2023 End: 05-02-2023 ambulatory PALOMA Ballesteros YAAKOVJUDIE Not Available Start: 05-01-2023 End: 05-01-2023 Admission to same day surgery center MD Zachary Mayes Work Phone: [facility] [place] Work Phone: Start: 05-01-2023 End: 05-01-2023 ambulatory MD Zachary Mayes Work Phone: [facility] Work Phone: Start: 03-21-2023 End: 03-21-2023 ambulatory Rina Anton Other [facility] Other Start: 03-21-2023 Office outpatient ne w 30 minutes Rina Anton [facility] Start: 02-01-2019 End: 02-01-2019 Emergency department patient visit [facility] Start: 02-01-2019 End: 02-01-2019 Emergency department patient visit [facility] Work Phone: [facility] ED Comment on above: Abdominal pain, righ t lower quadrant (Primary Dx); History of ovarian cyst Procedures Date Procedure Procedure Detail Performing Clinician Start: 12-20-2023 Diagnostic ultrasoun d of gravid uterus MD Zachary Mayes Work Phone: Start: 02-01-2019 Urinalysis microscopic only VESELIN GORDON Start: 02-01-2019 Urine test visual color cmprsn meths VESELIN GORDON Start: 02-01-2019 Urnls dip stick/tabl et rgnt auto w/o microscopy VESELIN GORDON Start: 02-01-2019 Blood count complete auto&auto difrntl wbc VESELIN GORDNO Start: 02-01-2019 Comprehensive metabo lic panel VESELIN GORDON Start: 02-01-2019 Urinalysis microscopic only Veselin Gordon Work Phone: Start: 02-01-2019 Urine test visual color cmprsn meths Veselin Gordon Work Phone: Start: 02-01-2019 Urnls dip stick/tabl et rgnt auto w/o microscopy Veselin Gordon Work Phone: Start: 02-01-2019 Blood count complete auto&auto difrntl wbc Veselin Gordon Work Phone: Start: 02-01-2019 Comprehensive metabo lic panel Veselin Gordon Work Phone: Plan of Treatment Date Care Activity Detail Author Start: 01-13-2019 Influenza vaccination Flu vaccine (# 1) [place] Progesterone [Mass/v olume] in Serum or Plasma [facility] Payers Date Payer Category Payer Self-pay [id number] 2023 Private Health Insurance [id number] 2014 Unknown [id number] 2014 Unknown BC[place] - [place] P PO xxxxxxxxxxxx 2014-Present [address] [place] [address] xxxxxxxxxxxx [id number] 1998 Unknown [id number] 2.16.840.1.147518.3.579.2 .174 1998 Unknown [id number] 2.16840.1.692326.3.579.2 .1259 1998 Unknown [id number] 2.16840.1.168948.3.579.2 .1259 1998 Unknown [id number] 2.16.840.1.850671.3.579.2 .1259 1998 Unknown [id number] 2.16840.1.056618.3.579.2 .1259 Unknown [facility] [id number] Unknown [place] [id number] Unknown [id number] 2.16840.1.003202.3.579.2 .531 Unknown [id number] 2.840.1.798366.3.579.2 .531 Unknown [id number] 2.16840.1.372134.3.579.2 .531 Unknown [id number] 2.16840.1.843106.3.579.2 .531 Unknown [id number] 2.16840.1.411798.3.579.2 .531 Unknown [id number] 2.840.1.709397.3.579.2 .531 Unknown [id number] 2.840.1.924370.3.579.2 .531 Unknown [id number] 2.16840.1.204485.3.579.2 .531 Unknown [id number] 2.840.1.239599.3.579.2 .531 Social History Date Type Detail Facility Start: 02-01-2019 End: 11-20-2019 Tobacco smoking status NHIS Never smoker [facility] Start: 02-01-2019 Alcohol intake Not Currently [place], [place] Sex Assigned At Not on file [place], [place] Start: 2000 Sex Assigned At Female F [facility] Evaluation note 03-21-2023 Note Date & Type Note Facility 03-21-2023 Evaluation note Encounter Date Diagnosis Assessment Notes Mar, Sore throat (ICD-10 - J02.9) Mar, Viral URI (ICD-10 - J06.9) Advised patient that rapid Strep test was negative today. Patient declines/refuses other testing today. Advised patient that will treat as viral URI. Supportive care as directed, increase fluids and rest, rx of prednisone,Tyleno l as directed, OTC cough/cold remedies as directed on packaging, cool mist humidifier, throat lozenges. Discussed infection control practices such as good hand washing and mask wearing. Patient to follow up with PCP if symptoms persist or worsen despite treatment. Immediate eval for SOB, difficulty breathing, chest pain, fevers that do not break with antipyretic or any other concerning symptoms as reviewed on patient education handout. Patient verbalizes understanding and is agreeable to treatment plan. Patient left in stable condition [facility] Other Evaluation note Note Date & Type Note Facility Evaluation note No assessment information availa [facility] Work Phone: History general Narrative - Reported Note Date & Type Note Facility History general Narrative - Reported Type Surgical History tonsillectomy Surgical History laparoscopy [facility] Other Summary Purpose Family History No Family History Records Found Relationship Condition Age at Onset Recorded Date/T juliette father Congestive heart failure Unknown Advance Directives No Advanced Directives Records FoundDocuments on File Type Date Recorded Patient Urban [employer]ster Expl anation Advance Directives and Living Will Power of Relay Dispatcher Advance Directive Response Recorded Date/ Time Advance Directives No August 08 7:47am Advance Directive Response Recorded Date/ Time Advance Directives No August 08 8:47am Discharge Instructions * Instructions* Keyla Leyva MD - 02/01/2019 Follow-up with [facility] * Attachments The following attachments cannot be sent through Care Everywhere. * Abdominal Pain (Italian) * Appendicitis (Italian) documented in this encounter Assessments Diagnosis Abdominal pain, right lower quadrant- Primary History of ovarian cyst Personal history of other genital system and obstetric disorders Chief Complaint and Reason for Visit Chief Complaint Z87.59 Chief Complaint Z87.59 Z87.59 Chief Complaint Z87.59 Z87.59 Z87.59 N92.6 Chief Complaint Z87.59 Z87.59 Z87.59 N92.6 n92.6 Chief Complaint Z87.59 Z87.59 Z87.59 N92.6 n92.6 N92.6 Chief Complaint Z87.59 Z87.59 Z87.59 N92.6 n92.6 N92.6 O029.299 Chief Complaint Z87.59 Z87.59 Z87.59 N92.6 n92.6 N92.6 O029.299 N92.6 Chief Complaint Z87.59 Z87.59 Z87.59 N92.6 n92.6 N92.6 O029.299 N92.6 N92.6 Additional Source Comments INFORMATION SOURCE (unrecogn ized section and content) DATE CREATED AUTHOR 02/01/2019 [facility] DATE CREATED AUTHOR AUTHOR'S ORGANIZ ATION 05/05/2023 [facility] DATE CREATED AUTHOR AUTHOR'S ORGANIZ ATION 01/19/2024 [facility] DATE CREATED AUTHOR AUTHOR'S ORGANIZ ATION 02/08/2024 [facility] EPIC Reason for Visit (unrecogniz ed section and content) Reason Comments Abdominal Pain RLQ pain x 1 hour Care Teams (unrecognized sec tion and content) Team Status: Active Member Role Status Dates Zachary Mayes MD Primary Care Provider Active Team Status: Inactive Member Role Status Dates Zachary Mayes MD Primary Care Provider Active Paloma Vazquez DO Attending Provider Active Team Status: Inactive Member Role Status Dates Zachary Mayes MD Primary Care Provider Active Start: December 02, 2023 End: December 02, 2023 Jackie Reardon MD Attending Provider Active St art: December 02, 2023 End: December 02, 2023 Team Status: Inactive Member Role Status Dates Zachary Mayes MD Primary Care Provider Active Start: December 05, 2023 End: December 05, 2023 Gaby Woods DO Attending Provider Active Start : December 05, 2023 End: December 05, 2023 Team Status: Inactive Member Role Status Dates Zachary Mayes MD Primary Care Provider Active Start: December 07, 2023 End: December 07, 2023 Gaby Woods , DO Attending Provider Active Start : December 07, 2023 End: December 07, 2023 Team Status: Inactive Member Role Status Dates Zachary Mayes MD Primary Care Provider Active Start: December 09, 2023 End: December 09, 2023 Gaby Woods , DO Attending Provider Active Start : December 09, 2023 End: December 09, 2023 Team Status: Inactive Member Role Status Dates Zachary Mayes MD Primary Care Provider Active Start: December 20, 2023 End: December 20, 2023 Gaby Woods DO Attending Provider Active Start : December 20, 2023 End: December 20, 2023 Team Status: Inactive Member Role Status Dates Zachary Mayes MD Primary Care Provider Active Start: December 22, 2023 End: December 22, 2023 Gaby Woods , Attending Provider Active Start : December 22, 2023 End: December 22, 2023 Team Status: Inactive Member Role Status Dates Zachary Mayes MD Primary Care Provider Active Start: December 28, 2023 End: December 28, 2023 Gaby Woods , Attending Provider Active Start : December 28, 2023 End: December 28, 2023 Team Status: Inactive Member Role Status Dates Zachary Mayes MD Primary Care Provider Active Start: January 05, 2024 End: January 05, 2024 Gaby Woods DO Attending Provider Active Start : January 05, 2024 End: January 05, 2024 Goals (unrecognized section and content) Goals may be documented in a n alternate section FOR RECORDS PERTAINING TO PATIENTS WHO ARE OR HAVE BEEN ENROLLED IN A CHEMICAL DEPENDENCY/SUBSTANCEABUSE PROGRAM, SOME INFORMATION MAY BE OMITTED. This clinical summary was aggregated from multiple sources. Caution should be exercised in using it in the provision of clinical care. This summary normalizes information from multiple sources, and as a consequence, information in this document may materially change the coding, format and clinical context of patient data. In addition, data may be omitted in some cases. CLINICAL DECISIONS SHOULD BE BASED ON THE PRIMARY CLINICAL RECORDS. [employer] provides no warranty or guarantee of the accuracy or completeness of information in this document.
[2024-02-19 13:08] LABS: Progesterone 17.9 ng/mL (.)
== END 2024-02-17 11:24 | disposition home or self-care (01) ==
PROVIDERS: PCP Family Medicine; Visit Provider Obstetrics & Gynecology
DX: N97.0 Female infertility associated with anovulation (principal)
CPT/HCPCS: 36415; 84144

== ENCOUNTER 2024-03-21 10:35 | Outpatient (OUT) | payer BC, SELFPAY ==
--- OUTSIDE RECORDS SUMMARY | 2024-03-21 10:44 | XMS_ITS | CCD ---
Author Organization [facility] Care Team Providers Care Tool Straightener Name Role Phone KEYLA LEYVA Attending Unavailable Unavailable Primary Care Provider UnavailRina Carpio Unavailable MD Zachary Mayes Primary Care Provider DO Paloma Vazquez Attending Provider [phone] MD Zachary Mayes Primary Care Provider MD Jackie Reardon Attending Provider DO Gaby Woods Attending Provider Peggy, Gaby [...] Primary Care Unavailable Peggy, Gaby Attending Unavailable Rinkes, Paloma Admitting Unavailable Taylor, Paloma Attending Unavailable Brown, Zachary R Primary Care Unavailable Jackie Reardon Admitting Unavailable Jackie Reardon Attending Unavailable Brown, Zachary R Primary Care Unavailable PEGGY, GABY Attending Unavailable PEGGY, GABY Attending Unavailable RINKES, PALOMA E Attending Unavailable RINKES, PALOMA E Referring Unavailable RINKES, PALOMA E Referring Unavailable Rinkes DO, Paloma E Unavailable Alberto Mayes MD Primary Care Provider Allergies Allergy Classification Reported Allergen(s) Allergy Type Date of Onset Reaction(s) Facility (11 sources) Cephalexin Drug Allergy 9 Nausea And Vomiting [place] (10 sources) predniSONE Drug Allergy 9 Nausea And Vomiting [place] (1 source) Cephalexin Drug Allergy 0 [facility]ository (1 source) predniSONE Drug Allergy 0 [facility] (1 source) Ciprofloxacin Drug Allergy 9 [facility] Healthcare (1 source) Prednisone Propensity to adverse reactions 9 Nausea And Vomiting [facility] Healthcare Medications Current Medications Medication Drug Class(es) Dates Sig (Normalized) Sig (Original) aspirin 81 mg oral tablet (1 source) Platelet Aggregation Inhibitor, Nonsteroidal Anti-inflammatory Drug Start: 10-14-2023 aspirin 81 MG oral suspension 10/14/2023 Active ethinyl estradiol 0.03 mg / ferrous fumarate 75 mg / norethindrone 1.5 mg oral tablet (1 source) Estrogen take 1 tablet by mouth once daily, then take 1.5-30 tablets by mouth norethindrone-ethi nyl estradiol-iron (AKIL FE 1.5/30) 1.5-30 MG-MCG tablet [...] tablet Orally BID for 5 Mar, Active Vit w/Tm-Fawxftmwi-FT (PNV PO) (1 source) Vit w/Ns-Txnzbcmcq-RC (PNV PO) Active Progesterone 200 MG suppository (1 source) Start: 02-14-2024 End: 03-15-2024 Progesterone 200 MG suppository Indications: History of miscarriage Insert 200 mg into the vagina in the morning and 200 mg before bedtime. 30 suppository 3 02/14/2024 03/15/2024 Active traMADol hydrochloride 50 mg oral tablet (9 sources) Opioid Agonist Start: 11-20-2019 take 50 mg by mouth every four to six hours Tramadol Active 50 MG PO EVERY 4-6 HOURS 11 12November 20, 2019 12:00am Completed/Discontinued Medications Medication Drug [...] Test Name Value Interpretation Reference Range Facility ALL PROGESTERONEon 4 PROGESTERONE 17.9 ng/mL . [facility] Comment on above: Follicular phase 0.1 - 0.9 Luteal phase 1.8 - 23.9 Ovulation phase 0.1 - 12.0 First trimester 11.0 - 44.3 Second trimester 25.4 - 83.3 Third trimester 58.7 - 214.0 Postmenopausal 0.0 - 0.1 Performed at: [address] [id number] Wire Winding Machine Operator: Jordin Rao PhD, Phone: [phone] [facility] Choriogonadotropin.beta subu nit [Units/volume] in Serum or PlasmaOrdered By: Gaby Woods on 01-05-2024 HCG.beta subunit Qn 4.96 m[IU]/mL [facility] Comment on above: Approximate Approxim ate hCG Gestational Age Range (mIU/ml) (weeks)0.2-1 5-50 1-2 50-500 2-3 100-5,000 3-4 500-10,000 4-5 1,000-50,000 5-6 10,000-100,000 6-8 15,000-200,000 8-12 10,000-100,000 HCG,Quantitativeon 4 HCG,Quantitative 4.96 m[iU]/mL Normal [facility] Comment on above: Result Comment: Appr oximate Approximate hCG Gestational Age Range (mIU/ml) (weeks) 0.2-1 5-50 1-2 50-500 2-3 100-5,000 3-4 500-10,000 4-5 1,000-50,000 5-6 10,000-100,000 6-8 15,000-200,000 8-12 10,000-100,000 PERFORMED BY: [place] [address] PATHOLOGIST FLOOR LAYER TILE TO ANAYA M.D. Performed By: #### H CGQNT #### [address] Choriogonadotropin.beta subu nit [Units/volume] in Serum or PlasmaOrdered By: Gaby Woods on 12-28-2023 HCG.beta subunit Qn 108.32 m[IU]/mL [facility] Comment on above: Approximate Approxim ate hCG Gestational Age Range (mIU/ml) (weeks)0.2-1 5-50 1-2 50-500 2-3 100-5,000 3-4 500-10,000 4-5 1,000-50,000 5-6 10,000-100,000 6-8 15,000-200,000 8-12 10,000-100,000 HCG,Quantitativeon 4 HCG,Quantitative 108.32 m[iU]/mL Normal [facility] Comment on above: Result Comment: Appr oximate Approximate hCG Gestational Age Range (mIU/ml) (weeks) 0.2-1 5-50 1-2 50-500 2-3 100-5,000 3-4 500-10,000 4-5 1,000-50,000 5-6 10,000-100,000 6-8 15,000-200,000 8-12 10,000-100,000 PERFORMED BY: [place] [address] PATHOLOGIST FLOOR LAYER TILE TO ANAYA M.D. Performed By: #### H CGQNT #### [address] [address] Choriogonadotropin.beta subu nit [Units/volume] in Serum or PlasmaOrdered By: Gaby Woods on 12-22-2023 HCG.beta subunit Qn 1030.88 m[IU]/mL [facility] Comment on above: Approximate Approxim ate hCG Gestational Age Range (mIU/ml) (weeks)0.2-1 5-50 1-2 50-500 2-3 100-5,000 3-4 500-10,000 4-5 1,000-50,000 5-6 10,000-100,000 6-8 15,000-200,000 8-12 10,000-100,000 HCG,Quantitativeon 4 HCG,Quantitative 1030.88 m[iU]/mL Normal [facility] Comment on above: Result Comment: Appr oximate Approximate hCG Gestational Age Range (mIU/ml) (weeks) 0.2-1 5-50 1-2 50-500 2-3 100-5,000 3-4 500-10,000 4-5 1,000-50,000 5-6 10,000-100,000 6-8 15,000-200,000 8-12 10,000-100,000 PERFORMED BY: [address] [address] PATHOLOGIST FLOOR LAYER TILE TO ANAYA M.D. Performed By: #### H CGQNT ####[facility] [address] Choriogonadotropin.beta subu nit [Units/volume] in Serum or PlasmaOrdered By: Gaby Woods on 12-20-2023 HCG.beta subunit Qn 988.06 m[IU]/mL [facility] Comment on above: Approximate Approxim ate hCG Gestational Age Range (mIU/ml) (weeks)0.2-1 5-50 1-2 50-500 2-3 100-5,000 3-4 500-10,000 4-5 1,000-50,000 5-6 10,000-100,000 6-8 15,000-200,000 8-12 10,000-100,000 HCG,Quantitativeon 4 HCG,Quantitative 988.06 m[iU]/mL Normal [facility] Comment on above: Result Comment: Appr oximate Approximate hCG Gestational Age Range (mIU/ml) (weeks) 0.2-1 5-50 1-2 50-500 2-3 100-5,000 3-4 500-10,000 4-5 1,000-50,000 5-6 10,000-100,000 6-8 15,000-200,000 8-12 10,000-100,000 PERFORMED BY: [place] [address] PATHOLOGIST FLOOR LAYER TILE TO ANAYA M.D. Performed By: #### H CGQNT #### [facility] [address] [id number] [facility] US OB transvaginalon 024 US OB transvaginal [facility] Main [place] [address] [place] [address] Ultrasound Report Signed Patient: Daphney Montesinos MR#: [id number] : 2000 Acct:[id number] Age/Sex: 23 / F ADM Date: 12/20/23 Loc: Room: Type: [facility] Attending Dr: Gaby Woods DO Ordering Provider: Gaby Woods Date of Service: 12/20/23 US/US OB <= 14 weeks fetus: N92.6 ([id number]) US/US OB transvaginal: N92.6 Copies to: Gabyashish [facility] FIRST TRIMESTER OB ULTRASOUND (transabdominal and transvaginal) [...] Lisa Rojas M.D.12/20/2023 5:46 PM Dictation Location: [place] [address] Tech: Deb Farhan Transcribed By: FLETCHER 12/20/23 8362 Dictated By: Lisa Rojas MD 12/20/23 1739 Signed By: 12/20/23 1746 Normal [facility] Choriogonadotropin.beta subu nit [Units/volume] in Serum or PlasmaOrdered By: Gaby Woods on 12-09-2023 HCG.beta subunit Qn 295.86 m[IU]/mL [facility] Comment on above: Approximate Approxim ate hCG Gestational Age Range (mIU/ml) (weeks)0.2-1 5-50 1-2 50-500 2-3 100-5,000 3-4 500-10,000 4-5 1,000-50,000 5-6 10,000-100,000 6-8 15,000-200,000 8-12 10,000-100,000 HCG,Quantitativeon HCG,Quantitative 295.86 m[iU]/mL Normal [facility] Comment on above: Result Comment: Appr oximate Approximate hCG Gestational Age Range (mIU/ml) (weeks) 0.2-1 5-50 1-2 50-500 2-3 100-5,000 3-4 500-10,000 4-5 1,000-50,000 5-6 10,000-100,000 6-8 15,000-200,000 8-12 10,000-100,000 PERFORMED BY: [place] [address] PATHOLOGIST FLOOR LAYER TILE TO ANAYA M.D. Performed By: #### H CGQNT #### [address] Choriogonadotropin.beta subu nit [Units/volume] in Serum or PlasmaOrdered By: Gaby Woods on 12-07-2023 HCG.beta subunit Qn 135.80 m[IU]/mL [facility] Comment on above: Approximate Approxim ate hCG Gestational Age Range (mIU/ml) (weeks)0.2-1 5-50 1-2 50-500 2-3 100-5,000 3-4 500-10,000 4-5 1,000-50,000 5-6 10,000-100,000 6-8 15,000-200,000 8-12 10,000-100,000 HCG,Quantitativeon 4 HCG,Quantitative 135.80 m[iU]/mL Normal [facility] Comment on above: Result Comment: Appr oximate Approximate hCG Gestational Age Range (mIU/ml) (weeks) 0.2-1 5-50 1-2 50-500 2-3 100-5,000 3-4 500-10,000 4-5 1,000-50,000 5-6 10,000-100,000 6-8 15,000-200,000 8-12 10,000-100,000 PERFORMED BY: [place] [address] PATHOLOGIST FLOOR LAYER TILE TO ANAYA M.D. Performed By: #### H CGQNT #### [address] [address] [facility] Choriogonadotropin.beta subu nit [Units/volume] in Serum or PlasmaOrdered By: AMBAR Rearodn on 12-05-2023 HCG.beta subunit Qn 69.85 m[IU]/mL [facility] Comment on above: Approximate Approxim ate hCG Gestational Age Range (mIU/ml) (weeks)0.2-1 5-50 1-2 50-500 2-3 100-5,000 3-4 500-10,000 4-5 1,000-50,000 5-6 10,000-100,000 6-8 15,000-200,000 8-12 10,000-100,000 HCG,Quantitativeon 4 HCG,Quantitative 69.85 m[iU]/mL Normal [facility] Comment on above: Result Comment: Appr oximate Approximate hCG Gestational Age Range (mIU/ml) (weeks) 0.2-1 5-50 1-2 50-500 2-3 100-5,000 3-4 500-10,000 4-5 1,000-50,000 5-6 10,000-100,000 6-8 15,000-200,000 8-12 10,000-100,000 PERFORMED BY: [address] [address] PATHOLOGIST FLOOR LAYER TILE TO ANAYA M.D. Performed By: #### H CGQNT #### [address] Progesteroneon 12-05-2023 Progesterone 26.5 ng/mL Normal . [facility] Comment on above: Result Comment: Foll icular phase 0.1 - 0.9 Luteal phase 1.8 - 23.9 Ovulation phase 0.1 - 12.0 First trimester 11.0 - 44.3 Second trimester 25.4 - 83.3 Third trimester 58.7 - 214.0 Postmenopausal 0.0 - 0.1 Performed at: [facility] [address] [id number] Wire Winding Machine Operator: Jordin Rao PhD, Phone: [phone] PERFORMED BY: [place] [address] PATHOLOGIST FLOOR LAYER TILE TO ANAYA M.D. Performed By: #### P JOO #### [facility] , Serum or plasma progesterone measurement (mass/volume)Ordered By: Gaby Woods on 12-05-2023 Progesterone [Mass/Vol] 26.5 ng/mL . [facility] Comment on above: Follicular phase 0.1 - 0.9 Luteal phase 1.8 - 23.9 Ovulation phase 0.1 - 12.0 First trimester 11.0 - 44.3 Second trimester 25.4 - 83.3 Third trimester 58.7 - 214.0 Postmenopausal 0.0 - 0.1Performed at: - [facility] [id number] Director: Jordin Rao PhD, Phone: [phone] Choriogonadotropin.beta subu nit [Units/volume] in Serum or PlasmaOrdered By: AMBAR Reardon on 12-02-2023 HCG.beta subunit Qn 12.64 m[IU]/mL [facility] Comment on above: Approximate Approxim ate hCG Gestational Age Range (mIU/ml) (weeks)0.2-1 5-50 1-2 50-500 2-3 100-5,000 3-4 500-10,000 4-5 1,000-50,000 5-6 10,000-100,000 6-8 15,000-200,000 8-12 10,000-100,000 HCG,Quantitativeon 4 HCG,Quantitative 12.64 m[iU]/mL Normal [facility] Comment on above: Result Comment: Appr oximate Approximate hCG Gestational Age Range (mIU/ml) (weeks) 0.2-1 5-50 1-2 50-500 2-3 100-5,000 3-4 500-10,000 4-5 1,000-50,000 5-6 10,000-100,000 6-8 15,000-200,000 8-12 10,000-100,000 PERFORMED BY: [place] [address] PATHOLOGIST FLOOR LAYER TILE TO ANAYA M.D. Performed By: #### H CGQNT #### [address] Operative Reporton 3 Operative Report [id number] 20 [id number]#[id number] [id number] Normal [facility] [place] hysterosalpingographyon 1 07-02-2022 [place] hysterosalpingography [facility] Main [place] [address] [place], [place] [id number] Fluoroscopy Report Signed Patient: Daphney Montesinos MR#: [id number] : 2000 Acct:[id number] Age/Sex: 23 / F ADM Date: 05/01/23 Loc: XD Room: Type: [facility] Attending Dr: Paloma Vazquez DO Copies to: [...] Librado Haney M.D.05/01/2023 11:43 AM Dictation Location: [place] [address] Transcribed By: FLETCHER 05/01/23 1143 Dictated By: Librado Haney II, MD 05/01/23 1141 Signed By: 05/01/23 1143 Normal [facility] Quick Strepon 03-21-2023 S. pyogenes Org specific cx Ql (Throat) Negative [employer] [facility] [employer] Other Quick Strep [employer] [facility] [employer] [facility] Other CBC Auto Differentialon 01-14 Basophils (Bld) [#/Vol] 0.00 10*3/uL [place] Basophils/100 WBC (Bld) 0 % 0 - 2 % [place], [place] Differential Type YES [place] Eosinophils (Bld) [#/Vol] 0.20 10*3/uL [place] Eosinophils/100 WBC (Bld) 2 % 0 - 5 % [place] Erythrocyte distribution width (RBC) [Ratio] 12.6 % 12.1 - 15.2 % [place] Hematocrit (Bld) [Volume fraction] 39.8 % 36 - 46 % [place] Hemoglobin (Bld) [Mass/Vol] 13.8 g/dL 12 - 16 g/dL [place] Interpretation and review of laboratory results Abnormal [place] Lymphocytes (Bld) [#/Vol] 1.70 10*3/uL [place] Lymphocytes/100 WBC (Bld) 14 % Low 15 - 40 % [place] MCH (RBC) [Entitic mass] 31.5 pg 26 - 34 pg [place] MCHC (RBC) [Mass/Vol] 34.6 g/dL 31 - 3 7 g/dL [place] MCV (RBC) [Entitic vol] 91.2 fL 80 - 100 fL [place] Monocytes (Bld) [#/Vol] 0.60 10*3/uL [place] Monocytes/100 WBC (Bld) 5 % 4 - 8 % [place] Platelet mean volume (Bld) [Entitic vol] NOT REPORTED 6 - 12 fL [place] Platelets (Bld) [#/Vol] NOT REPORTED [place] Platelets (Bld) [#/Vol] 287 10*3/uL [place] RBC (Bld) [#/Vol] 4.37 10*6/uL 4 - 5.2 m/uL [place] RBC morphology finding Nom (Bld) NOT REPORTED [place] Segmented neutrophils/100 WBC (Bld) 79 % High 47 - 75 % [place] Segs Absolute 9.50 [place] WBC (Bld) [#/Vol] 12.0 10*3/uL [place] WBC (Bld) [#/Vol] NOT REPORTED per 100 WBC [place] WBC Morphology NOT REPORTED [place], [place] CBC with Diffon 02-01-2019 Abs. Basophil 0.00 k/uL Normal 0.0-0.2 [facility] Comment on above: Performed By: #### C P, CDP #### [facility] [address] [place] [address] Wire Winding Machine Operator: Jonathan Chisholm MD Abs.Neutrophil (Seg) 9.50 k/uL High 2.5-7.0 [facility] Comment on above: Performed By: #### C P, CDP #### [facility] [address] [place] [address] Wire Winding Machine Operator: Jonathan Chisholm MD Auto Diff Performed YES Normal [facility] Comment on above: Performed By: #### C P, CDP #### [facility] [address] [place] [address] Wire Winding Machine Operator: Jonathan Chisholm MD Basophils/100 WBC (Bld) 0 % Normal 0-2 M [facility] Comment on above: Performed By: #### C P, CDP #### [facility] [address] [place] [address] Wire Winding Machine Operator: Jonathan Chisholm MD Eosinophils (Bld) [#/Vol] 0.20 10*3/uL Normal 0.0-0.4 [facility] Comment on above: Performed By: #### C P, CDP #### [facility] [address] [place] [address] Wire Winding Machine Operator: Jonathan Chisholm MD Eosinophils/100 WBC (Bld) 2 % Normal 0-5 [facility] Comment on above: Performed By: #### C P, CDP #### [facility] [address] [place] [address] Wire Winding Machine Operator: Jonathan Chisholm MD Erythrocyte distribution width (RBC) [Ratio] 12.6 % Normal 12.1-15.2 [facility] Comment on above: Performed By: #### C P, CDP #### [facility] [address] [place] [address] Wire Winding Machine Operator: Jonathan Chisholm MD Hematocrit (Bld) [Volume fraction] 39.8 % Normal 36-46 [facility] Comment on above: Performed By: #### C P, CDP #### [facility] [address] [place] [address] Wire Winding Machine Operator: Jonathan Chisholm MD Hemoglobin (Bld) [Mass/Vol] 13.8 g/dL Normal 12.0-16.0 [facility] Comment on above: Performed By: #### C P, CDP #### [facility] [address] [place] [address] Wire Winding Machine Operator: Jonathan Chisholm MD Lymphocytes (Bld) [#/Vol] 1.70 10*3/uL Normal 1.2-5.2 [facility] Comment on above: Performed By: #### C P, CDP #### [facility] [address] [place] [address] Wire Winding Machine Operator: Jonathan Chisholm MD Lymphocytes/100 WBC (Bld) 14 % Low 15-40 [facility] Comment on above: Performed By: #### C P, CDP #### [facility] [address] [place] [id number] Wire Winding Machine Operator: Jonathan Chisholm MD MCH (RBC) [Entitic mass] 31.5 pg Normal 26-34 [facility] Comment on above: Performed By: #### C P, CDP #### [facility] [address] [place] [address] Wire Winding Machine Operator: Jonathan Chisholm MD MCHC (RBC) [Mass/Vol] 34.6 g/dL Normal 31-[address] [facility] Comment on above: Performed By: #### C P, CDP #### [facility] [address] [place] [address] Wire Winding Machine Operator: Jonathan Chisholm MD MCV (RBC) [Entitic vol] 91.2 fL Normal 80-100 M [facility] Comment on above: Performed By: #### C P, CDP #### [facility] [address] [place] [address] Wire Winding Machine Operator: Jonathan Chisholm MD Monocytes (Bld) [#/Vol] 0.60 10*3/uL Normal 0.0-1.0 [facility] Comment on above: Performed By: #### C P, CDP #### [facility] [address] [place] [address] Wire Winding Machine Operator: Jonathan Chisholm MD Monocytes/100 WBC (Bld) 5 % Normal 4-8 [facility] Comment on above: Performed By: #### C P, CDP #### [facility] [address] [place] [address] Wire Winding Machine Operator: Jonathan Chisholm MD Neutrophil (Seg) 79 % High 47-75 [facility] Comment on above: Performed By: #### C P, CDP #### [facility] [address] [place], [place] [id number] Wire Winding Machine Operator: Jonathan Chisholm MD Platelets (Bld) [#/Vol] 287 10*3/uL Normal 140-450 [facility] Comment on above: Performed By: #### C P, CDP #### [facility] [address] [place], [place] [id number] Wire Winding Machine Operator: Jonathan Chisholm MD RBC (Bld) [#/Vol] 4.37 10*6/uL Normal 4.0-5.2 [facility] Comment on above: Performed By: #### C P, CDP #### [facility] [address] [place] [id number] Wire Winding Machine Operator: Jonathan Chisholm MD WBC (Bld) [#/Vol] 12.0 10*3/uL Normal 4.5-13.5 [facility] Comment on above: Performed By: #### C P, CDP #### [facility] [address] [place] [address] Wire Winding Machine Operator: Jonathan Chisholm MD Abs.Imm.Granulocyte NOT REPORTED Normal 0.00-0.[address] [facility] Comment on above: Performed By: #### C P, CDP #### [facility] [address] [place] [address] Wire Winding Machine Operator: Jonathan Chisholm MD Immature granulocytes (Bld) [#/Vol] NOT REPORTED Normal 0 [facility] Comment on above: Performed By: #### C P, CDP #### [facility] [address] [place] [address] Wire Winding Machine Operator: Jonathan Chisholm MD NRBC Automated NOT REPORTED Normal [facility] Comment on above: Performed By: #### C P, CDP #### [facility] [address] [place], [place] [id number] Wire Winding Machine Operator: Jonathan Chisholm MD Platelet mean volume (Bld) [Entitic vol] NOT REPORTED Normal 6.0-12.0 [facility] Comment on above: Performed By: #### C P, CDP #### [facility] [address] [place], [place] [id number] Wire Winding Machine Operator: Jonathan Chisholm MD Platelets (Bld) [#/Vol] NOT REPORTED Normal [facility] Comment on above: Performed By: #### C P, CDP #### [facility] [address] [place], [place] [id number] Wire Winding Machine Operator: Jonathan Chisholm MD RBC morphology finding Nom (Bld) NOT REPORTED Normal [facility] Comment on above: Performed By: #### C P, CDP #### [facility] [address] [place], [place] [id number] Wire Winding Machine Operator: Jonathan Chisholm MD WBC Morphology NOT REPORTED Normal [facility] Comment on above: Performed By: #### C P, CDP #### [facility] [address] [place] [address] Wire Winding Machine Operator: Jonathan Chisholm MD Comp Metabolic Profon 2018 (cont.) Normal [facility] Comment on above: Result Comment: Aver age GFR for 20-29 years old: 116 mL/min/1.73sq m Chronic Kidney Disease: <60 mL/min/1.73sq m Kidney failure: <15 mL/min/1.73sq m eGFR calculated using average adult body mass. Additional eGFR calculator available at: http://www.[employer].com/multiple_crcl_2012.htm Performed By: #### C P, CDP #### [facility] [address] [place] [address] Wire Winding Machine Operator: Jonathan Chisholm MD Albumin [Mass/Vol] 4.1 g/dL Normal 3.5-5.2 [facility] Comment on above: Performed By: #### C P, CDP #### [facility] [address] [place], [place] [id number] Wire Winding Machine Operator: Jonathan Chisholm MD Alkaline Phos 63 U/L Normal 35-104 [facility] Comment on above: Performed By: #### C P, CDP #### [facility] [address] [place], [place] [id number] Wire Winding Machine Operator: Jonathan Chisholm MD ALT [Catalytic activity/Vol] 8 U/L Normal 5-33 [facility] Comment on above: Performed By: #### C P, CDP #### [facility] [address] [place], [place] [id number] Wire Winding Machine Operator: Jonathan Chisholm MD Anion gap [Moles/Vol] 12 mmol/L Normal 9-[address] [facility] Comment on above: Performed By: #### C P, CDP #### [facility] [address] [place], [place] [id number] Wire Winding Machine Operator: Jonathan Chisholm MD AST [Catalytic activity/Vol] 13 U/L Normal <32 [facility] Comment on above: Performed By: #### C P, CDP #### [facility] [address] [place], [place] [id number] Wire Winding Machine Operator: Jonathan Chisholm MD Bilirubin Ql (U) 0.40 mg/dL Normal 0.30-1.20 [facility] Comment on above: Performed By: #### C P, CDP #### [facility] [address] [place], [place] [id number] Wire Winding Machine Operator: Jonathan Chisholm MD BUN/CRE Ratio 13 Normal 9-20 [facility] Comment on above: Performed By: #### C P, CDP #### [facility] [address] [place], [place] [address]690 Wire Winding Machine Operator: Jonathan Chisholm MD Calcium [Mass/Vol] 9.1 mg/dL Normal 8.6-10.4 [facility] Comment on above: Performed By: #### C P, CDP #### [facility] [address] [place], [place] [id number] Wire Winding Machine Operator: Jonathan Chisholm MD Chloride [Moles/Vol] 103 mmol/L Normal 98-107 [facility] Comment on above: Performed By: #### C P, CDP #### [facility] [address] [place], [place] [id number] Wire Winding Machine Operator: Jonathan Chisholm MD CO2 [Moles/Vol] 24 mmol/L Normal 20-31 [facility] Comment on above: Performed By: #### C P, CDP #### [facility] [address] [place] [address] Wire Winding Machine Operator: Jonathan Chisholm MD Creatinine [Mass/Vol] 0.61 mg/dL Normal 0.50-0.[address] [facility] Comment on above: Performed By: #### C P, CDP #### [facility] [address] [place], [place] [id number] Wire Winding Machine Operator: Jonathan Chisholm MD GFR, Amer >60 Normal >60 [facility] Comment on above: Performed By: #### C P, CDP #### [facility] [address] [place], [place] [id number] Wire Winding Machine Operator: Jonathan Chisholm MD GFR,non Amer >60 Normal >60 [facility] Comment on above: Performed By: #### C P, CDP #### [facility] [address] [place], [place] [id number] Wire Winding Machine Operator: Jonathan Chisholm MD Glucose [Mass/Vol] 94 mg/dL Normal 70-99 [facility] Comment on above: Performed By: #### C P, CDP #### [facility] [address] [place], [place] [phone] Wire Winding Machine Operator: Jonathan Chisholm MD Potassium [Moles/Vol] 3.8 mmol/L Normal 3.7-5.[address] [facility] Comment on above: Performed By: #### C P, CDP #### [facility] [address] [place], [place] [phone] Wire Winding Machine Operator: Jonathan Chisholm MD Protein [Mass/Vol] 7.1 g/dL Normal 6.4-8.3 [facility] Comment on above: Performed By: #### C P, CDP #### [facility] [address] [place], [place] [phone] Wire Winding Machine Operator: Jonathan Chisholm MD Sodium [Moles/Vol] 139 mmol/L Normal 135-144 [facility] Comment on above: Performed By: #### C P, CDP #### [facility] [address] [place], [place] [phone] Wire Winding Machine Operator: Jonathan Chisholm MD Urea nitrogen [Mass/Vol] 8 mg/dL Normal 6-20 [facility] Comment on above: Performed By: #### C P, CDP #### [facility] [address] [place], [place] [phone] Wire Winding Machine Operator: Jonathan Chisholm MD Albumin/Globulin [Mass ratio] NOT REPORTED Normal 1.0-2.5 [facility] Comment on above: Performed By: #### C P, CDP #### [facility] [address] [place], [place] [phone] Wire Winding Machine Operator: Jonathan Chisholm MD Staging: NOT REPORTED Normal [facility] Comment on above: Performed By: #### C P, CDP #### [facility] [address], [place] [phone] Wire Winding Machine Operator: Jonathan Chisholm MD Comprehensive Metabolic Pane markus 02-01-2019 Albumin [Mass/Vol] 4.1 g/dL 3.5 - 5.2 g/dL [place] Albumin/Globulin [Mass ratio] NOT REPORTED [place] ALP [Catalytic activity/Vol] 63 U/L 35 - 104 U/L [place] ALT [Catalytic activity/Vol] 8 U/L 5 - 33 U/L [place] Anion gap [Moles/Vol] 12 mmol/L 9 - 17 mmol/L [place] AST [Catalytic activity/Vol] 13 U/L <32 [place] Bilirubin Ql (U) 0.40 mg/dL 0.3 - 1.2 mg/dL [place] Bun/Cre Ratio 13 [place] Calcium [Mass/Vol] 9.1 mg/dL 8.6 - 10. 4 mg/dL [place] Chloride [Moles/Vol] 103 mmol/L 98 - 10 7 mmol/L [place] CO2 [Moles/Vol] 24 mmol/L 20 - 31 mmol/L [place] Creatinine [Mass/Vol] 0.61 mg/dL 0.5 - 0.9 mg/dL [place] GFR >60 >60 mL/min [place] GFR Non- >60 >60 mL/min [place] GFR/1.73 sq M predicted among non-blacks MDRD (S/P/Bld) [Vol rate/Area] NOT REPORTED [place] GFR/1.73 sq M predicted among non-blacks MDRD (S/P/Bld) [Vol rate/Area] [place] Comment on above: Average GFR for 20-2 9 years old: 116 mL/min/1.73sq m Chronic Kidney Disease: <60 mL/min/1.73sq m Kidney failure: <15 mL/min/1.73sq m eGFR calculated using average adult body mass. Additional eGFR calculator available at: http://www.Drive [employer]/multiple_crcl_2012.htm Glucose [Mass/Vol] 94 mg/dL 70 - 99 mg/dL [place] Potassium [Moles/Vol] 3.8 mmol/L 3.7 - 5.3 mmol/L [place] Protein [Mass/Vol] 7.1 g/dL 6.4 - 8.3 g/dL [place] Sodium [Moles/Vol] 139 mmol/L 135 - 144 mmol/L [place] Urea nitrogen [Mass/Vol] 8 mg/dL 6 - 20 mg/dL [place] HCG, ,Urineon 02-01 Beta HCG ( test) Ql (U) Negative Normal NEG [facility] Comment on above: Performed By: #### U MICAO, UHCG, UA #### [facility] [address] [place] [address] Wire Winding Machine Operator: Jonathan Chisholm MD Microscopic Urinalysison Amorphous, UA NOT REPORTED None [place], [place] Bacteria, UA 3+ Abnormal None [place] Casts UA NOT REPORTED /LPF [place] Crystals UA NOT REPORTED None /HPF [place] Epithelial Cells UA 20 TO 50 /HPF [place] Interpretation and review of laboratory results Abnormal [place] Mucus, UA 2+ Abnormal None [place] Other Observations UA NOT REPORTED NOT REQ. [place] RBC (U) [#/Vol] 2 TO 5 [place] Renal Epithelial, Urine NOT REPORTED 0 /HPF [place] Trichomonas, UA NOT REPORTED None [facility] [place] WBC, UA 2 TO 5 0 /HPF [place] Yeast, UA NOT REPORTED None [place] - [place] Otheron 02-01-2019 Immature granulocytes (Bld) [#/Vol] NOT REPORTED [place] , Urineon 9 Beta HCG ( test) Ql (U) Negative NEGATIVE [place] Urinalysison 02-01-2019 Bilirubin Urine Negative NEGATIVE [place] Color, UA YELLOW YELLOW [place] Glucose, Ur Negative NEGATIVE [place] Interpretation and review of laboratory results Abnormal [place] Ketones Ql (U) TRACE Abnormal NEGATIVE [place] Leukocyte esterase Test strip Ql (U) Negative NEGATIVE [place] Nitrite, Urine Negative NEGATIVE [place] pH, UA 6.0 [place] Protein (U) [Mass/Vol] 1+ Abnormal NEGATIVE [place] Specific [place], UA 1.020 [place], [place] Turbidity UA CLEAR CLEAR [place] Urinalysis Comments [place] Urine Hgb 3+ Abnormal NEGATIVE [place] Urobilinogen, Urine Normal Normal [place] Urinalysis, Routineon 2018 Acetoacetic Acid,Ur TRACE Abnormal NEG [facility] Comment on above: Performed By: #### U MICAO, [facility], UA #### [facility] [address] [place] [address] Wire Winding Machine Operator: Jonathan Chisholm MD Bilirubin, SemiQt,Ur Negative Normal NEG [facility] Comment on above: Performed By: #### U MICAO, [facility], UA #### [facility] [address] [place] [phone] Wire Winding Machine Operator: Jonathan Chisholm MD Color (U) YELLOW Normal L [facility] Comment on above: Performed By: #### U MICAO, CG, UA #### [facility] [address] [place] [id number] Wire Winding Machine Operator: Jonathan Chisholm MD Comment Normal [facility] Comment on above: Performed By: #### [facility], [facility] #### [facility] [address] [place] [phone] Wire Winding Machine Operator: Jonathan Chisholm MD Glucose Ql (U) Negative Normal NEG [facility] Comment on above: Performed By: #### U MICAO, CG, UA #### [facility] [address] [place] [phone] Wire Winding Machine Operator: Jonathan Chisholm MD Hemoglobin, Ur 3+ Abnormal NEG [facility] Comment on above: Performed By: #### U PREMA [facility], UA #### [facility] [address] [place] [address] Wire Winding Machine Operator: Jonathan Chisholm MD Leukocyte esterase Test strip Ql (U) Negative Normal NEG [facility] Comment on above: Performed By: #### U PREMA [facility], UA #### [facility] [address] [place] [address] Wire Winding Machine Operator: Jonathan Chisholm MD Nitrite,Ur Negative Normal NEG [facility] Comment on above: Performed By: #### U PREMA [facility], UA #### [facility] [address] [place] [address] Wire Winding Machine Operator: Jonathan Chisholm MD pH (U) 6.0 [pH] Normal 5.0-8.0 [facility] Comment on above: Performed By: #### U PREMA [facility], UA #### [facility] [address] [place] [address] Wire Winding Machine Operator: Jonathan Chisholm MD Protein Ql (U) 1+ Abnormal NEG [facility] Comment on above: Performed By: #### U PREMA [facility], UA #### [facility] [address] [place] [address] Wire Winding Machine Operator: Jonathan Chisholm MD Specific gravity (U) [Rel density] 1.020 Normal 1.005-1.03 0 [facility] Comment on above: Performed By: #### U PREMA [facility], UA #### [facility] [address] [place] [phone] Wire Winding Machine Operator: Jonathan Chisholm MD Turbidity CLEAR Normal CLEAR [facility] Comment on above: Performed By: #### U PREMA CG, UA #### [facility] [address] [place] [address] Wire Winding Machine Operator: Jonathan Chisholm MD Urobilinogen,Ur Normal Normal NORM [facility] Comment on above: Performed By: #### U [facility]ICAO, [facility] #### [facility] [address] [place] [address] Wire Winding Machine Operator: Jonathan Chisholm MD Urinalysis,Microon 9 ----- Normal [facility] Comment on above: Performed By: #### U MICAO, [facility], UA #### [facility] [address] [place] [address] Wire Winding Machine Operator: Jonathan Chisholm MD Bacteria LM.HPF (Urine sed) [#/Area] 3+ Abnormal NONE [facility] Comment on above: Performed By: #### U MICAO, [facility], UA #### [facility] [address] [place] [address] Wire Winding Machine Operator: Jonathan Chisholm MD Epithelial cells LM.HPF (Urine sed) [#/Area] 20 TO 50 Normal [facility] Comment on above: Performed By: #### U [facility], [facility] #### [facility] [address] [place] [address] Wire Winding Machine Operator: Jonathan Chisholm MD Mucus Strands 2+ Abnormal NONE [facility] Comment on above: Performed By: #### U [facility]ICAO, [facility] #### [facility] [address] [place] [address] Wire Winding Machine Operator: Jonathan Chisholm MD RBC (U) [#/Vol] 2 TO 5 Normal 0-2 [facility] Comment on above: Performed By: #### U [facility]O, [facility] #### [facility] [address] [place] [address] Wire Winding Machine Operator: Jonathan Chisholm MD WBC (U) [#/Vol] 2 TO 5 Normal 0 [facility] Comment on above: Performed By: #### U MICAO, [facility], UA #### [facility] [address] [place] [address] Wire Winding Machine Operator: Jonathan Chisholm MD Amorphous sediment LM Ql (Urine sed) NOT REPORTED Normal NONE [facility] Comment on above: Performed By: #### U MICAO, [facility], UA #### [facility] [address] [place] [address] Wire Winding Machine Operator: Jonathan Chisholm MD Casts LM.LPF (Urine sed) [#/Area] NOT REPORTED Normal [facility] Comment on above: Performed By: #### U JAZMINEO, [facility], UA #### [facility] [address] [place], [place] [phone] Wire Winding Machine Operator: Jonathan Chisholm MD Crystals LM Nom (Urine sed) NOT REPORTED Normal NONE [facility] Comment on above: Performed By: #### U PREMA, [facility], UA #### [facility] [address] [place], [place] [phone] Wire Winding Machine Operator: Jonathan Chisholm MD Epithelial, Renal NOT REPORTED Normal 0 [facility] Comment on above: Performed By: #### U JAZMINEO, [facility], UA #### [facility] [address] [place], [place] [phone] Wire Winding Machine Operator: Jonathan Chisholm MD Other Observations NOT REPORTED Normal NREQ [facility] Comment on above: Performed By: #### U MICAO, [facility], UA #### [facility] [address] [place], [place] [phone] Wire Winding Machine Operator: Jonathan Chisholm MD Trichomonas NOT REPORTED Normal NONE [facility] Comment on above: Performed By: #### U [facility]O, [facility] #### [facility] [address] [place] [address] Wire Winding Machine Operator: Jonathan Chisholm MD Yeast LM Ql (Urine sed) NOT REPORTED Normal NONE [facility] Comment on above: Performed By: #### U MICAO, [facility], UA #### [facility] [address] [place] [address] Wire Winding Machine Operator: Jonathan Chisholm MD Vital Signs Date Time Vital Sign Value Performing Clinician Facility 03-21-2023 18:10-0500 Body height 167.64 cm Rina Anton Other [facility] Other 03-21-2023 18:10-0500 Body mass index (BMI) [Ratio] 26.95 kg/m2 Rina Anton Other [facility] Other 03-21-2023 18:10-0500 Body temperature 98.9 [degF] Rina Anton Other [facility] Other 03-21-2023 18:10-0500 Body weight 75.75 kg Rina Anton Other [facility] Other 03-21-2023 18:10-0500 Respiratory rate 18 /min Rina Anton Other [facility] Other 03-21-2023 18:10-0500 SaO2% (BldA) [Mass fraction] 97 % Rina Anton Other [facility] Other 02-01-2019 06:41-0400 BP Diastolic 64 mm[Hg] [facility] [place] 02-01-2019 06:41-0400 BP Systolic 107 mm[Hg[facility] [place] 02-01-2019 06:41-0400 Pulse (Heart Rate) 64 /min [facility] 02-01-2019 04:30-0400 Body Temperature 98.01 [degF] [facility] [place] 02-01-2019 04:30-0400 Body weight 58.92 kg [facility] [place] [facility] [place] 02-01-2019 04:30-0400 Pulse Oximetry 100 % [facility] [place] [facility] [place] 02-01-2019 04:30-0400 Respiratory Rate 18 /min [facility], [place] Encounters Encounter Date Encounter Type Care Provider Facility Start: 02-17-2024 End: 02-19-2024 Clinisync Result Encounter Gaby Peggy DO Work Phone: [facility] Unsolicited Start: 02-17-2024 End: 02-19-2024 Clinisync Result Encounter Gaby Peggy DO Work Phone: [facility] External [facility] Unsolicited Start: 2024 End: 2024 ambulatory GABY PEGGY Not Available Start: 01-05-2024 End: 01-05-2024 Patient encounter procedure MD Zachary Mayes Work Phone: [facility] [place] Work Phone: Start: 01-05-2024 End: 01-05-2024 ambulatory MD Zachary Mayes Work Phone: [facility] Work Phone: Start: 12-28-2023 End: 12-28-2023 Patient encounter procedure MD Zachary Mayes Work Phone: [facility] [place] Work Phone: Start: 12-28-2023 End: 12-28-2023 ambulatory MD Zachary Mayes Work Phone: [facility] Work Phone: Start: 12-22-2023 End: 12-22-2023 Patient encounter procedure MD Zachary Mayes Work Phone: [facility] [place] Work Phone: Start: 12-22-2023 End: 12-22-2023 ambulatory MD Zachary Mayes Work Phone: [facility] Work Phone: Start: 12-21-2023 End: 12-21-2023 ambulatory GABY WOODS Not Available Start: 12-20-2023 End: 12-20-2023 Patient encounter procedure MD Zachary Mayes Work Phone: [facility] [place] Work Phone: Start: 12-20-2023 End: 12-20-2023 ambulatory MD Zachary Mayes Work Phone: [facility] Work Phone: Start: 12-09-2023 End: 12-09-2023 Patient encounter procedure MD Zachary Mayes Work Phone: [facility] [place] Work Phone: Start: 12-09-2023 End: 12-09-2023 ambulatory MD Zachary Mayes Work Phone: [facility] Work Phone: Start: 12-07-2023 End: 12-07-2023 Patient encounter procedure MD Zachary Mayes Work Phone: [facility] [place] Work Phone: Start: 12-07-2023 End: 12-07-2023 ambulatory MD Zachary Mayes Work Phone: [facility] Work Phone: Start: 12-05-2023 End: 12-05-2023 Patient encounter procedure MD Zachary Mayes Work Phone: [facility] [place] Work Phone: Start: 12-05-2023 End: 12-05-2023 ambulatory MD Zachary Mayes Work Phone: [facility] Work Phone: Start: 12-02-2023 End: 12-02-2023 ambulatory MD Zachary Mayes Work Phone: [facility] Work Phone: Start: 12-02-2023 End: 12-02-2023 Patient encounter procedure MD Zachary Mayes Work Phone: [facility] [place] Work Phone: Start: 05-02-2023 End: 05-02-2023 ambulatory PALOMA VAZQUEZ Not Available Start: 05-01-2023 End: 05-01-2023 Admission to same day surgery center MD Zachary Mayes Work Phone: [facility] [place] Work Phone: Start: 05-01-2023 End: 05-01-2023 ambulatory MD Zachary Mayes Work Phone: [facility] Work Phone: Start: 03-21-2023 End: 03-21-2023 ambulatory Rina Anton Other [facility] Other Start: 03-21-2023 Office outpatient ne w 30 minutes Rina Anton [facility] Start: 02-01-2019 End: 02-01-2019 Emergency department patient visit VESELIN GORDON [facility] Start: 02-01-2019 End: 02-01-2019 Emergency department patient visit Veselin Gordon Work Phone: [facility] ED Comment on above: Abdominal pain, righ t lower quadrant (Primary Dx); History of ovarian cyst Procedures Date Procedure Procedure Detail Performing Clinician Start: 02-17-2024 ALL PROGESTERONE Gaby Peggy DO Work Phone: Start: 12-20-2023 Diagnostic ultrasoun d of gravid uterus MD Zachary Mayes Work Phone: Start: 02-01-2019 Urinalysis microscopic only VESELIN GORDON Start: 02-01-2019 Urine test visual color cmprsn meths VESELIN GORDON Start: 02-01-2019 Urnls dip stick/tabl et rgnt auto w/o microscopy VESELIN GORDON Start: 02-01-2019 Blood count complete auto&auto difrntl wbc VESELIN GORDON Start: 02-01-2019 Comprehensive metabo lic panel VESELIN [...] 01-13-2019 Influenza vaccination Flu vaccine (# 1) [place], [place] Progesterone [Mass/v olume] in Serum or Plasma [facility] Payers Date Payer Category Payer Self-pay [id number] 2023 Private Health Insurance CIGNA CIGNA [id number] 2023-Present [address] [place] [address] [id number] 2023 Private Health Insurance [id number] 2014 Unknown [id number] 2014 Unknown BCBS BCBS - [place] P PO xxxxxxxxxxxx 2014-Present [address] [place] [address] xxxxxxxxxxxx [id number] 1998 Unknown [id number] 1998 Unknown [id number] 1998 Unknown [id number] 1998 Unknown [id number] 1998 Unknown [id number] Unknown [facility] [id number] Unknown [place] BC/BS [id number] Unknown [id number] Unknown [id number] .531 Unknown [id number] .531 Unknown [id number] .531 Unknown [id number] .531 Unknown [id number] .531 Unknown [id number] .531 Unknown [id number] Unknown [id number] Social History Date Type Detail Facility Start: 02-01-2019 End: 04-28-2023 Tobacco smoking status NHIS Never smoker [facility] Start: 02-01-2019 End: 04-28-2023 Alcohol intake Not Currently [facility] Start: 1998 [facility]igned [facility] Start: 2000 Sex Assigned At Female F [facility] Start: 2024 Alcoholic beverage intake Lifetime non-drinker (finding) [facility] Start: 04-28-2023 History of Social function [facility] Start: 04-28-2023 Alcohol Comment Caffeine intak e: 3-4 cups per day [facility] Evaluation note 03-21-2023 Note Date & Type [...] treatment plan. 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 * Abdominal Pain (Stateless) * Appendicitis (Stateless) documented in this encounter Assessments Diagnosis Abdominal [...] and content) DATE CREATED AUTHOR 02/01/2019 Fina Eric Jose ila DATE CREATED AUTHOR AUTHOR'S ORGANIZ ATION 05/05/2023 [facility] DATE CREATED AUTHOR AUTHOR'S ORGANIZ ATION 01/19/2024 [facility] DATE CREATED AUTHOR AUTHOR'S ORGANIZ ATION 02/08/2024 [facility] EPIC Reason for Visit (unrecogniz [...] December 05, 2023 End: December 05, 2023 Gabyashish Altamiranoo , DO Attending Provider Active Start : December 05, 2023 End: December 05, 2023 Team Status: Inactive Member Role Status Dates Zachary Mayes MD Primary Care Provider Active Start: December 07, 2023 End: December 07, 2023 Gaby Peggy , DO Attending Provider Active Start : December 07, 2023 End: December 07, 2023 Team Status: Inactive Member Role Status Dates Zachary Mayes MD Primary Care Provider Active Start: December 09, 2023 End: December 09, 2023 Gaby Peggy , DO Attending Provider Active Start : December 09, 2023 End: December 09, 2023 Team Status: Inactive Member Role Status Dates Zachary Mayes MD Primary Care Provider Active Start: December 20, 2023 End: December 20, 2023 Gaby Peggy , DO Attending Provider Active Start : December 20, 2023 End: December 20, 2023 Team Status: Inactive Member Role Status Dates Zachary Mayes MD Primary Care Provider Active Start: December 22, 2023 End: December 22, 2023 Gaby Peggy , DO Attending Provider Active Start : December 22, 2023 End: December 22, 2023 Team Status: Inactive Member Role Status Dates Zachary Mayes MD Primary Care Provider Active Start: December 28, 2023 End: December 28, 2023 Gaby Peggy , DO Attending Provider Active Start : December 28, 2023 End: December 28, 2023 Team Status: Inactive Member Role Status Dates Zachary Mayes MD Primary Care Provider Active Start: January 05, 2024 End: January 05, 2024 Gaby Peggy , DO Attending Provider Active Start : January 05, 2024 End: January 05, 2024 Tool Straightener Relationship Specialty Start Date End Date Alberto Mayes MD [address] [place] [address] [place] [address] PCP - General 05/02/23 Paloma Vazquez DO [address] [place] [address] Referring Physician Obstetrics and Gynecology 04/25/23 Goals (unrecognized section and content) Goals may [...] BE BASED ON THE PRIMARY CLINICAL RECORDS. [employer] provides no warranty or guarantee of the accuracy or completeness of information in this document.
[2024-03-21 11:43] LABS: HCG Quantitative <1 mIU/mL
[2024-03-22 09:13] LABS: Progesterone 14.9 ng/mL (.)
== END 2024-03-21 10:36 | disposition home or self-care (01) ==
LOC: LAB 10:37
PROVIDERS: PCP Family Medicine; Visit Provider Obstetrics & Gynecology
DX: N97.0 Female infertility associated with anovulation (principal); N92.6 Irregular menstruation, unspecified
CPT/HCPCS: 36415; 84144; 84702

== ENCOUNTER 2024-04-18 09:15 | Outpatient (OUT) | payer BC, SELFPAY ==
[2024-04-19 04:07] LABS: Progesterone 59.6 ng/mL (.)
== END 2024-04-18 09:16 | disposition home or self-care (01) ==
LOC: LAB 09:17
PROVIDERS: PCP Family Medicine; Visit Provider Obstetrics & Gynecology
DX: E34.9 Endocrine disorder, unspecified (principal); N97.0 Female infertility associated with anovulation
CPT/HCPCS: 36415; 82397; 84144

== ENCOUNTER 2024-06-14 06:39 | Outpatient (OUT) | payer BC, SELFPAY ==
--- OUTSIDE RECORDS SUMMARY | 2024-06-14 06:44 | XMS_ITS | CCD ---
Author Organization [facility] Care Team Providers Care Juice Scaleman Name Role Phone KEYLA LEYVA Attending Unavailable Unavailable Primary Care Provider Unavailcasimiro Anton Rina Unavailable MD Zachary Mayes Primary Care Provider [phone] DO Paloma Vazquez Attending Provider MD Zachary Mayes Primary Care Provider [phone] MD Jackie Reardon Attending Provider [phone] DO Gaby Woods Attending Provider Peggy, Gaby [...] Primary Care Unavailable Peggy, Gaby Attending Unavailable Paloma Vazquez Admitting Unavailable Paloma Vazquez Attending Unavailable Brown, Zachary R Primary Care Unavailable Jackie Reardon Admitting Unavailable Jackie Reardon Attending Unavailable Brown, Zachary R Primary Care Unavailable Paloma Vazquez DO E Unavailable [phone] Alberto Mayes MD Primary Care Provider RAJ WOODSY Attending Unavailable PEGGY, GABY Attending Unavailable PALOMA VAZQUEZ Attending Unavailable PALOMA VAZQUEZ Referring Unavailable PALOMA VAZQUEZ Referring Unavailable GABY WOODS Attending Unavailable Allergies Allergy Classification Reported Allergen(s) Allergy Type Date of Onset Reaction(s) Facility (19 sources) Cephalexin Drug Allergy 9 Nausea And Vomiting [place] (10 sources) predniSONE Drug Allergy 9 Nausea And Vomiting [place] (1 source) Cephalexin Drug Allergy 0 [facility] Repository (1 source) predniSONE Drug Allergy 0 [facility] Repository (9 sources) Ciprofloxacin Drug Allergy 9 [facility] Healthcare (9 sources) Prednisone Propensity to adverse reactions 9 Nausea And Vomiting [facility] Healthcare Medications Current Medications Medication Drug Class(es) Dates Sig (Normalized) Sig (Original) aspirin 81 mg oral tablet (9 sources) Platelet Aggregation Inhibitor, Nonsteroidal Anti-inflammatory Drug Start: [...] Orally BID for 5 Mar, Active Vit w/Hq-Morjuyrmf-[place] (PNV PO) (9 sources) Vit w/Up-Maxbiicds-GH (PNV PO) Active Progesterone 200 MG suppository (3 sources) Start: 02-14-2024 End: 03-15-2024 Progesterone 200 MG suppository Indications: History of miscarriage Insert 200 mg into the vagina in the morning and 200 mg before bedtime. 30 suppository 3 02/14/2024 03/15/2024 Active Start: 2024 End: 03-07-2024 Progesterone 200 MG supposit ory Indications: History of miscarriage Insert 200 mg into the vagina at bedtime Insert suppository vaginally every night at bedtime until 12 weeks gestation 30 suppository 3 2024 03/07/2024 Active traMADol hydrochloride 50 mg oral tablet [...] Problem Classification Problem Date Documented Date Episodic/Chronic Contraceptive and procreative management (2 sources) Patient encounter status; Translations: [Encounter for procreative management, unspecified] 04-10-2024 Episodic Female infertility (2 sources) Female infertility; Translations: [Female infertility, unspecified] 2024 Chronic Menstrual disorders (1 source) Irregular menstruation, unspecified; Translations: [Irregular menstruation, unspecified] Onset: 12-07-2023 Chronic Other complications of (1 source) Supervision of with other poor reproductive or obstetric history, unspecified trimester; Translations: [Supervision of with other poor reproductive or obstetric history, unspecified trimester] Onset: 12-22-2023 Episodic Other endocrine disorders (2 sources) Disorder of endocrine system; Translations: [Endocrine disorder, unspecified] 04-10-2024 Episodic Other upper respiratory infections (2 sources) Acute pharyngitis, unspecified; Translations: [Acute upper respiratory infection, unspecified] Episodic Residual codes; unclassified (2 sources) Personal history of other complications of , childbirth and the puerperium; Translations: [Personal history of other complications of , childbirth and the puerperium] Onset: 05-01-2023 Episodic Residual codes; unclassified (2 sources) H/O: miscarriage; Translations: [Personal history of other complications of , childbirth and the puerperium] 2024 Episodic Past or Other Problems Problem Classification Problem Date Documented Da te Episodic/Chronic Abdominal pain (1 source) Right lower quadrant pain; Translations: [Abdominal pain, right lower quadrant] Episodic Other female genital disorders (1 source) H/O gynecological disorder; Translations: [History of ovarian cyst] Episodic Results Test Name Value Interpretation Reference Range Facility ALL PROGESTERONEon 4 PROGESTERONE 59.6 ng/mL . [facility] Comment on above: Follicular phase 0.1 - 0.9 Luteal phase 1.8 - 23.9 Ovulation phase 0.1 - 12.0 First trimester 11.0 - 44.3 Second trimester 25.4 - 83.3 Third trimester 58.7 - 214.0 Postmenopausal 0.0 - 0.1 Performed at: [facility] [employer] [id number] Mobile Application Architect: Jordin Rao PhD, Phone: [phone] [facility]H PREG QUANT HCGon 024 HCG QUANTITATIVE <1 mIU/mL [facility] Comment on above: 5-50 0.2-1 WEEK 50-500 1-2 WEEKS 100-5,000 2-3 WEEKS 500-10,000 3-4 WEEKS 1,000-50,000 4-5 WEEKS 10,000-100,000 5-6 WEEKS 15,000-200,000 6-8 WEEKS 10,000-100,000 2-[address] [facility] ALL PROGESTERONEon 4 PROGESTERONE 17.9 ng/mL . [facility] Comment on above: Follicular phase 0.1 - 0.9 Luteal phase 1.8 - 23.9 Ovulation phase 0.1 - 12.0 First trimester 11.0 - 44.3 Second trimester 25.4 - 83.3 Third trimester 58.7 - 214.0 Postmenopausal 0.0 - 0.1 Performed at: [employer] [id number] Mobile Application Architect: Jordin Rao PhD, Phone: [phone] [facility] HEMOGLOBIN A1Con 024 Glucose [Mass/Vol] 88 mg/dL [facility] HbA1c (Bld) [Mass fraction] 4.7 % 4.5 - 6.2 % [facility] Comment on above: ADA RECOMMENDED LIMI T 4.0 - 6.0 ADA THERAPEUTIC TARGET < 7.0 ACTION SUGGESTED > 7.0 [facility] Choriogonadotropin.beta subu nit [Units/volume] in Serum or PlasmaOrdered By: Gaby Woods on 01-05-2024 HCG.beta subunit Qn 4.96 m[IU]/mL [facility] Comment on above: Approximate Approxim ate hCG Gestational Age Range (mIU/ml) (weeks)0.2-1 5-50 1-2 50-500 2-3 100-5,000 3-4 500-10,000 4-5 1,000-50,000 5-6 10,000-100,000 6-8 15,000-200,000 8-12 10,000-100,000 HCG,Quantitativeon 4 HCG,Quantitative 4.96 m[iU]/mL Normal [facility] Comment on above: Result Comment: Appr oximate Approximate hCG Gestational Age Range (mIU/ml) (weeks) 0.2-1 5-50 1-2 50-500 2-3 100-5,000 3-4 500-10,000 4-5 1,000-50,000 5-6 10,000-100,000 6-8 15,000-200,000 8-12 10,000-100,000 PERFORMED BY: [place] [address] PATHOLOGIST FURNACE HAND TO ANAYA M.D. Performed By: #### H CGQNT #### [address] Choriogonadotropin.beta subu nit [Units/volume] in Serum or PlasmaOrdered By: Gaby Woods on 12-28-2023 HCG.beta subunit Qn 108.32 m[IU]/mL [facility] Comment on above: Approximate Approxim ate hCG Gestational Age Range (mIU/ml) (weeks)0.2-1 5-50 1-2 50-500 2-3 100-5,000 3-4 500-10,000 4-5 1,000-50,000 5-6 10,000-100,000 6-8 15,000-200,000 8-12 10,000-100,000 HCG,Quantitativeon 4 HCG,Quantitative 108.32 m[iU]/mL Normal [facility] Comment on above: Result Comment: Appr oximate Approximate hCG Gestational Age Range (mIU/ml) (weeks) 0.2-1 5-50 1-2 50-500 2-3 100-5,000 3-4 500-10,000 4-5 1,000-50,000 5-6 10,000-100,000 6-8 15,000-200,000 8-12 10,000-100,000 PERFORMED BY: [place] [address] PATHOLOGIST FURNACE HAND TO ANAYA M.D. Performed By: #### H CGQNT #### [address] Choriogonadotropin.beta subu nit [Units/volume] in Serum or PlasmaOrdered By: Gaby Woods on 12-22-2023 HCG.beta subunit Qn 1030.88 m[IU]/mL [facility] Comment on above: Approximate Approxim ate hCG Gestational Age Range (mIU/ml) (weeks)0.2-1 5-50 1-2 50-500 2-3 100-5,000 3-4 500-10,000 4-5 1,000-50,000 5-6 10,000-100,000 6-8 15,000-200,000 8-12 10,000-100,000 HCG,Quantitativeon 4 HCG,Quantitative 1030.88 m[iU]/mL Normal [facility] Comment on above: Result Comment: Appr oximate Approximate hCG Gestational Age Range (mIU/ml) (weeks) 0.2-1 5-50 1-2 50-500 2-3 100-5,000 3-4 500-10,000 4-5 1,000-50,000 5-6 10,000-100,000 6-8 15,000-200,000 8-12 10,000-100,000 PERFORMED BY: [place] [id number] PATHOLOGIST FURNACE HAND TO ANAYA M.D. Performed By: #### H CGQNT ####[facility] [address] [place] [id number] [facility] Choriogonadotropin.beta subu nit [Units/volume] in Serum or PlasmaOrdered By: Gaby Woods on 12-20-2023 HCG.beta subunit Qn 988.06 m[IU]/mL [facility] Comment on above: Approximate Approxim ate hCG Gestational Age Range (mIU/ml) (weeks)0.2-1 5-50 1-2 50-500 2-3 100-5,000 3-4 500-10,000 4-5 1,000-50,000 5-6 10,000-100,000 6-8 15,000-200,000 8-12 10,000-100,000 HCG,Quantitativeon 4 HCG,Quantitative 988.06 m[iU]/mL Normal [facility] Comment on above: Result Comment: Appr oximate Approximate hCG Gestational Age Range (mIU/ml) (weeks) 0.2-1 5-50 1-2 50-500 2-3 100-5,000 3-4 500-10,000 4-5 1,000-50,000 5-6 10,000-100,000 6-8 15,000-200,000 8-12 10,000-100,000 PERFORMED BY: [place] [address] PATHOLOGIST FURNACE HAND TO ANAYA M.D. Performed By: #### H CGQNT #### [facility] [address] [place], [place] [id number] [facility] US OB transvaginalon 024 US OB transvaginal [facility] Main [place] [id number] Ultrasound Report Signed Patient: Daphney Montesinos MR#: [id number] : 2000 Acct:[id number] Age/Sex: 23 / F ADM Date: 12/20/23 Loc: Room: Type: REG CLI Attending Dr: Gaby Woods DO Ordering Provider: Gaby Woods Date of Service: 12/20/23 US/US OB <= 14 weeks fetus: N92.6 ([id number]) US/US OB transvaginal: N92.6 Copies to: Gaby [...] Lisa Rojas M.D.12/20/2023 5:46 PM Dictation Location: [place] [address] Tech: Deb Farhan Transcribed By: FLETCHER 12/20/23 174 Dictated By: Lisa Rojas MD 12/20/23 1739 Signed By: 12/20/23 174 Normal [facility] Choriogonadotropin.beta subu nit [Units/volume] in Serum or PlasmaOrdered By: Gaby Woods on 12-09-2023 HCG.beta subunit Qn 295.86 m[IU]/mL [facility] Comment on above: Approximate Approxim ate hCG Gestational Age Range (mIU/ml) (weeks)0.2-1 5-50 1-2 50-500 2-3 100-5,000 3-4 500-10,000 4-5 1,000-50,000 5-6 10,000-100,000 6-8 15,000-200,000 8-12 10,000-100,000 HCG,Quantitativeon HCG,Quantitative 295.86 m[iU]/mL Normal [facility] Comment on above: Result Comment: Appr oximate Approximate hCG Gestational Age Range (mIU/ml) (weeks) 0.2-1 5-50 1-2 50-500 2-3 100-5,000 3-4 500-10,000 4-5 1,000-50,000 5-6 10,000-100,000 6-8 15,000-200,000 8-12 10,000-100,000 PERFORMED BY: [place] [address] PATHOLOGIST FURNACE HAND TO ANAYA M.D. Performed By: #### H CGQNT #### [address] Choriogonadotropin.beta subu nit [Units/volume] in Serum or PlasmaOrdered By: Gaby Woods on 12-07-2023 HCG.beta subunit Qn 135.80 m[IU]/mL [facility] Comment on above: Approximate Approxim ate hCG Gestational Age Range (mIU/ml) (weeks)0.2-1 5-50 1-2 50-500 2-3 100-5,000 3-4 500-10,000 4-5 1,000-50,000 5-6 10,000-100,000 6-8 15,000-200,000 8-12 10,000-100,000 HCG,Quantitativeon 4 HCG,Quantitative 135.80 m[iU]/mL Normal [facility] Comment on above: Result Comment: Appr oximate Approximate hCG Gestational Age Range (mIU/ml) (weeks) 0.2-1 5-50 1-2 50-500 2-3 100-5,000 3-4 500-10,000 4-5 1,000-50,000 5-6 10,000-100,000 6-8 15,000-200,000 8-12 10,000-100,000 PERFORMED BY: [place] [address] PATHOLOGIST FURNACE HAND TO ANAYA M.D. Performed By: #### H CGQNT #### [facility] [address] [place] [address] Choriogonadotropin.beta subu nit [Units/volume] in Serum or PlasmaOrdered By: AMBAR Reardon on 12-05-2023 HCG.beta subunit Qn 69.85 m[IU]/mL [facility] Comment on above: Approximate Approxim ate hCG Gestational Age Range (mIU/ml) (weeks)0.2-1 5-50 1-2 50-500 2-3 100-5,000 3-4 500-10,000 4-5 1,000-50,000 5-6 10,000-100,000 6-8 15,000-200,000 8-12 10,000-100,000 HCG,Quantitativeon 4 HCG,Quantitative 69.85 m[iU]/mL Normal [facility] Comment on above: Result Comment: Appr oximate Approximate hCG Gestational Age Range (mIU/ml) (weeks) 0.2-1 5-50 1-2 50-500 2-3 100-5,000 3-4 500-10,000 4-5 1,000-50,000 5-6 10,000-100,000 6-8 15,000-200,000 8-12 10,000-100,000 PERFORMED BY: [place] [address] PATHOLOGIST FURNACE HAND TO ANAYA M.D. Performed By: #### H CGQNT #### [address] Progesteroneon 12-05-2023 Progesterone 26.5 ng/mL Normal . [facility] Comment on above: Result Comment: Foll icular phase 0.1 - 0.9 Luteal phase 1.8 - 23.9 Ovulation phase 0.1 - 12.0 First trimester 11.0 - 44.3 Second trimester 25.4 - 83.3 Third trimester 58.7 - 214.0 Postmenopausal 0.0 - 0.1 Performed at: [facility] [address] [place], [place] [id number] Mobile Application Architect: Jordin Rao PhD, Phone: [phone] PERFORMED BY: [place] [address] PATHOLOGIST FURNACE HAND TO ANAYA M.D. Performed By: #### P JOO #### [facility] , Serum or plasma progesterone measurement (mass/volume)Ordered By: Gaby Woods on 12-05-2023 Progesterone [Mass/Vol] 26.5 ng/mL . [facility] Comment on above: Follicular phase 0.1 - 0.9 Luteal phase 1.8 - 23.9 Ovulation phase 0.1 - 12.0 First trimester 11.0 - 44.3 Second trimester 25.4 - 83.3 Third trimester 58.7 - 214.0 Postmenopausal 0.0 - 0.1Performed at: [facility] [place], [place] [id number] Director: Jordin Rao PhD, Phone: [phone] Choriogonadotropin.beta subu nit [Units/volume] in Serum or PlasmaOrdered By: AMBAR Reardon on 12-02-2023 HCG.beta subunit Qn 12.64 m[IU]/mL [facility] Comment on above: Approximate Approxim ate hCG Gestational Age Range (mIU/ml) (weeks)0.2-1 5-50 1-2 50-500 2-3 100-5,000 3-4 500-10,000 4-5 1,000-50,000 5-6 10,000-100,000 6-8 15,000-200,000 8-12 10,000-100,000 HCG,Quantitativeon 4 HCG,Quantitative 12.64 m[iU]/mL Normal [facility] Comment on above: Result Comment: Appr oximate Approximate hCG Gestational Age Range (mIU/ml) (weeks) 0.2-1 5-50 1-2 50-500 2-3 100-5,000 3-4 500-10,000 4-5 1,000-50,000 5-6 10,000-100,000 6-8 15,000-200,000 8-12 10,000-100,000 PERFORMED BY: [place] [address] PATHOLOGIST FURNACE HAND TO ANAYA M.D. Performed By: #### H CGQNT #### [address] Operative Reporton 3 Operative Report [id number] 20 [id number]#[id number] 0TIFF Normal [facility] [place] hysterosalpingographyon 1 07-02-2022 [place] hysterosalpingography [facility] Main [place] [address] [place] [address] Fluoroscopy Report Signed Patient: Daphney Montesinos MR#: [id number] : 2000 Acct:[id number] Age/Sex: 23 / F ADM Date: 05/01/23 Loc: XD Room: Type: [facility] Attending Dr: Paloma Vazquez DO Copies [...] Librado Haney M.D.05/01/2023 11:43 AM Dictation Location: [place] [address] Transcribed By: [facility] 05/01/23 1143 Dictated By: Librado Haney II, MD 05/01/23 1141 Signed By: 05/01/23 1143 Normal [facility] Quick Strepon 03-21-2023 S. pyogenes Org specific cx Ql (Throat) Negative Spl[employer] Other Quick Strep [employer] Other CBC Auto Differentialon 01-14 Basophils (Bld) [#/Vol] 0.00 10*3/uL [place] Basophils/100 WBC (Bld) 0 % 0 - 2 % [place], [place] Differential Type YES [place], [place] Eosinophils (Bld) [#/Vol] 0.20 10*3/uL [place] Eosinophils/100 WBC (Bld) 2 % 0 - 5 % [place] Erythrocyte distribution width (RBC) [Ratio] 12.6 % 12.1 - 15.2 % [place] Hematocrit (Bld) [Volume fraction] 39.8 % 36 - 46 % [place] Hemoglobin (Bld) [Mass/Vol] 13.8 g/dL 12 - 16 g/dL [place] Interpretation and review of laboratory results Abnormal [place], [place] Lymphocytes (Bld) [#/Vol] 1.70 10*3/uL [place] Lymphocytes/100 WBC (Bld) 14 % Low 15 - 40 % [place] MCH (RBC) [Entitic mass] 31.5 pg 26 - 34 pg [place] MCHC (RBC) [Mass/Vol] 34.6 g/dL 31 - 3 7 g/dL [place] MCV (RBC) [Entitic vol] 91.2 fL 80 - 100 fL [place] Monocytes (Bld) [#/Vol] 0.60 10*3/uL [place] Monocytes/100 WBC (Bld) 5 % 4 - 8 % [place] Platelet mean volume (Bld) [Entitic vol] NOT REPORTED 6 - 12 fL [place], [place] Platelets (Bld) [#/Vol] NOT REPORTED [place] Platelets (Bld) [#/Vol] 287 10*3/uL [place] RBC (Bld) [#/Vol] 4.37 10*6/uL 4 - 5.2 m/uL [place] RBC morphology finding Nom (Bld) NOT REPORTED [place] Segmented neutrophils/100 WBC (Bld) 79 % High 47 - 75 % [place] Segs Absolute 9.50 High [place] WBC (Bld) [#/Vol] 12.0 10*3/uL [place] WBC (Bld) [#/Vol] NOT REPORTED per 100 WBC [place] WBC Morphology NOT REPORTED [place], [place] CBC with Diffon 02-01-2019 Abs. Basophil 0.00 k/uL Normal 0.0-0.2 [facility] Comment on above: Performed By: #### C P, CDP #### [facility] [address] [place] [address] Mobile Application Architect: Jonathan Chisholm MD Abs.Neutrophil (Seg) 9.50 k/uL High 2.5-7.0 [facility] Comment on above: Performed By: #### C P, CDP #### [facility] [address] [place] [address] Mobile Application Architect: Jonathan Chisholm MD Auto Diff Performed YES Normal [facility] Comment on above: Performed By: #### C P, CDP #### [facility] [address] [place] [address] Mobile Application Architect: Jonathan Chisholm MD Basophils/100 WBC (Bld) 0 % Normal 0-2 M [facility] Comment on above: Performed By: #### C P, CDP #### [facility] [address] [place] [address] Mobile Application Architect: Jonathan Chisholm MD Eosinophils (Bld) [#/Vol] 0.20 10*3/uL Normal 0.0-0.4 [facility] Comment on above: Performed By: #### C P, CDP #### [facility] [address] [place] [address] Mobile Application Architect: Jonathan Chisholm MD Eosinophils/100 WBC (Bld) 2 % Normal 0-5 [facility] Comment on above: Performed By: #### C P, CDP #### [facility] [address] [place] [address] Mobile Application Architect: Jonathan Chisholm MD Erythrocyte distribution width (RBC) [Ratio] 12.6 % Normal 12.1-15.2 [facility] Comment on above: Performed By: #### C P, CDP #### [facility] [address] [place] [address] Mobile Application Architect: Jonathan Chisholm MD Hematocrit (Bld) [Volume fraction] 39.8 % Normal 36-46 [facility] Comment on above: Performed By: #### C P, CDP #### [facility] [address] [place] [address] Mobile Application Architect: Jonathan Chisholm MD Hemoglobin (Bld) [Mass/Vol] 13.8 g/dL Normal 12.0-16.0 [facility] Comment on above: Performed By: #### C P, CDP #### [facility] [address] [place], [place] [id number] Mobile Application Architect: Jonathan Chisholm MD Lymphocytes (Bld) [#/Vol] 1.70 10*3/uL Normal 1.2-5.2 [facility] Comment on above: Performed By: #### C P, CDP #### [facility] [address] [place] [address] (973) Mobile Application Architect: Jonathan Chisholm MD Lymphocytes/100 WBC (Bld) 14 % Low 15-40 [facility] Comment on above: Performed By: #### C P, CDP #### [facility] [address] [place] [address] Mobile Application Architect: Jonathan Chisholm MD MCH (RBC) [Entitic mass] 31.5 pg Normal 26-34 [facility] Comment on above: Performed By: #### C P, CDP #### [facility] [address] [place] [address] Mobile Application Architect: Jonathan Chisholm MD MCHC (RBC) [Mass/Vol] 34.6 g/dL Normal 31-37 [facility] Comment on above: Performed By: #### C P, CDP #### [facility] [address] [place] [address] (619) Mobile Application Architect: Jonathan Chisholm MD MCV (RBC) [Entitic vol] 91.2 fL Normal 80-100 M [facility] Comment on above: Performed By: #### C P, CDP #### [facility] [address] [place] [address] Mobile Application Architect: Jonathan Chisholm MD Monocytes (Bld) [#/Vol] 0.60 10*3/uL Normal 0.0-1.0 [facility] Comment on above: Performed By: #### C P, CDP #### [facility] [address] [place] [address] Mobile Application Architect: Jonathan Chisholm MD Monocytes/100 WBC (Bld) 5 % Normal 4-8 M [facility] Comment on above: Performed By: #### C P, CDP #### [facility] [address] [place] [address] Mobile Application Architect: Jonathan Chisholm MD Neutrophil (Seg) 79 % High 47-75 [facility] Comment on above: Performed By: #### C P, CDP #### [facility] [address] [place] [address] Mobile Application Architect: Jonathan Chisholm MD Platelets (Bld) [#/Vol] 287 10*3/uL Normal 140-450 [facility] Comment on above: Performed By: #### C P, CDP #### [facility] [address] [place] [id number] Mobile Application Architect: Jonathan Chisholm MD RBC (Bld) [#/Vol] 4.37 10*6/uL Normal 4.0-5.2 [facility] Comment on above: Performed By: #### C P, CDP #### [facility] [address] [place] [address] Mobile Application Architect: Jonathan Chisholm MD WBC (Bld) [#/Vol] 12.0 10*3/uL Normal 4.5-13.5 [facility] Comment on above: Performed By: #### C P, CDP #### [facility] [address] [place] [address] Mobile Application Architect: Jonathan Chisholm MD Abs.Imm.Granulocyte NOT REPORTED Normal 0.00-0.30 [facility] Comment on above: Performed By: #### C P, CDP #### [facility] [address] [place] [address] Mobile Application Architect: Jonathan Chisholm MD Immature granulocytes (Bld) [#/Vol] NOT REPORTED Normal 0 [facility] Comment on above: Performed By: #### C P, CDP #### [facility] [address] [place] [address] Mobile Application Architect: Jonathan Chisholm MD NRBC Automated NOT REPORTED Normal [facility] Comment on above: Performed By: #### C P, CDP #### [facility] [address] [place], [place] [id number] Mobile Application Architect: Jonathan Chisholm MD Platelet mean volume (Bld) [Entitic vol] NOT REPORTED Normal 6.0-12.0 [facility] Comment on above: Performed By: #### C P, CDP #### [facility] [address] [place], [place] [id number] Mobile Application Architect: Jonathan Chisholm MD Platelets (Bld) [#/Vol] NOT REPORTED Normal [facility] Comment on above: Performed By: #### C P, CDP #### [facility] [address] [place] [address] Mobile Application Architect: Jonathan Chisholm MD RBC morphology finding Nom (Bld) NOT REPORTED Normal [facility] Comment on above: Performed By: #### C P, CDP #### [facility] [address] [place] [address] Mobile Application Architect: oJnathan Chisholm MD WBC Morphology NOT REPORTED Normal [facility] Comment on above: Performed By: #### C P, CDP #### [facility] [address] [place] [address] Mobile Application Architect: Jonathan Chisholm MD Comp Metabolic Profon 2018 (cont.) Normal [facility] Comment on above: Result Comment: Aver age GFR for 20-29 years old: 116 mL/min/1.73sq m Chronic Kidney Disease: <60 mL/min/1.73sq m Kidney failure: <15 mL/min/1.73sq m eGFR calculated using average adult body mass. Additional eGFR calculator available at: [email or web address] [email or web address]_[email or web address] Performed By: #### C P, CDP #### [facility] [address] [place], [place] [phone] Mobile Application Architect: Jonathan Chisholm MD Albumin [Mass/Vol] 4.1 g/dL Normal 3.5-5.2 [facility] Comment on above: Performed By: #### C P, CDP #### [facility] [address] [place], [place] [phone] Mobile Application Architect: Jonathan Chisholm MD Alkaline Phos 63 U/L Normal 35-104 [facility] Comment on above: Performed By: #### C P, CDP #### [facility] [address] [place], [place] [phone] Mobile Application Architect: Jonathan Chisholm MD ALT [Catalytic activity/Vol] 8 U/L Normal 5-33 [facility] Comment on above: Performed By: #### C P, CDP #### [facility] [address] [place], [place] [phone] Mobile Application Architect: Jonathan Chisholm MD Anion gap [Moles/Vol] 12 mmol/L Normal 9-17 [facility] Comment on above: Performed By: #### C P, CDP #### [facility] [address] [place], [place] [phone] Mobile Application Architect: Jonathan Chisholm MD AST [Catalytic activity/Vol] 13 U/L Normal <32 [facility] Comment on above: Performed By: #### C P, CDP #### [facility] [address] [place], [place] [phone] Mobile Application Architect: Jonathan Chisholm MD Bilirubin Ql (U) 0.40 mg/dL Normal 0.30-1.20 [facility] Comment on above: Performed By: #### C P, CDP #### [facility] [address] [place], [place] [phone] Mobile Application Architect: Jonathan Chisholm MD BUN/CRE Ratio 13 Normal 9-20 [facility] Comment on above: Performed By: #### C P, CDP #### [facility] [address] [place], [place] [phone] Mobile Application Architect: Jonathan Chisholm MD Calcium [Mass/Vol] 9.1 mg/dL Normal 8.6-10.4 [facility] Comment on above: Performed By: #### C P, CDP #### [facility] [address] [place], [place] [phone] Mobile Application Architect: Jonathan Chisholm MD Chloride [Moles/Vol] 103 mmol/L Normal 98-107 [facility] Comment on above: Performed By: #### C P, CDP #### [facility] [address] [place], [place] [phone] Mobile Application Architect: Jonathan Chisholm MD CO2 [Moles/Vol] 24 mmol/L Normal 20-31 [facility] Comment on above: Performed By: #### C P, CDP #### [facility] [address] [place], [place] [phone] Mobile Application Architect: Jonathan Chisholm MD Creatinine [Mass/Vol] 0.61 mg/dL Normal 0.50-0.90 [facility] Comment on above: Performed By: #### C P, CDP #### [facility] [address] [place], [place] [phone] Mobile Application Architect: Jonathan Chisholm MD GFR, Amer >60 Normal >60 [facility] Comment on above: Performed By: #### C P, CDP #### [facility] [address] [place], [place] [phone] Mobile Application Architect: Jonathan Chisholm MD GFR,non Amer >60 Normal >60 [facility] Comment on above: Performed By: #### C P, CDP #### [facility] [address] [place], [place] [phone] Mobile Application Architect: Jonathan Chisholm MD Glucose [Mass/Vol] 94 mg/dL Normal 70-99 [facility] Comment on above: Performed By: #### C P, CDP #### [facility] [address] [place], [place] [phone] Mobile Application Architect: Jonathan Chisholm MD Potassium [Moles/Vol] 3.8 mmol/L Normal 3.7-5.3 [facility] Comment on above: Performed By: #### C P, CDP #### [facility] [address] [place], [place] [phone] Mobile Application Architect: Jonathan Chisholm MD Protein [Mass/Vol] 7.1 g/dL Normal 6.4-8.3 [facility] Comment on above: Performed By: #### C P, CDP #### [facility] [address] [place], [place] [phone] Mobile Application Architect: Jonathan Chisholm MD Sodium [Moles/Vol] 139 mmol/L Normal 135-144 [facility] Comment on above: Performed By: #### C P, CDP #### [facility] [address] [place], [place] [phone] Mobile Application Architect: Jonathan Chisholm MD Urea nitrogen [Mass/Vol] 8 mg/dL Normal 6-20 [facility] Comment on above: Performed By: #### C P, CDP #### [facility] [address] [place], [place] [phone] Mobile Application Architect: Jonathan Chisholm MD Albumin/Globulin [Mass ratio] NOT REPORTED Normal 1.0-2.5 [facility] Comment on above: Performed By: #### C P, CDP #### [facility] [address] [place] [address] Mobile Application Architect: Jonathan Chisholm MD Staging: NOT REPORTED Normal [facility] Comment on above: Performed By: #### C P, CDP #### [facility] [address] [place], [place] [phone] Mobile Application Architect: Jonathan Chisholm MD Comprehensive Metabolic Pane markus 09-20-2019 Albumin [Mass/Vol] 4.1 g/dL 3.5 - 5.2 g/dL [place] Albumin/Globulin [Mass ratio] NOT REPORTED [place] ALP [Catalytic activity/Vol] 63 U/L 35 - 104 U/L [place] ALT [Catalytic activity/Vol] 8 U/L 5 - 33 U/L [place] Anion gap [Moles/Vol] 12 mmol/L 9 - 17 mmol/L [place] AST [Catalytic activity/Vol] 13 U/L <32 [place] Bilirubin Ql (U) 0.40 mg/dL 0.3 - 1.2 mg/dL [place] Bun/Cre Ratio 13 [place] Calcium [Mass/Vol] 9.1 mg/dL 8.6 - 10. 4 mg/dL [place] Chloride [Moles/Vol] 103 mmol/L 98 - 10 7 mmol/L [place] CO2 [Moles/Vol] 24 mmol/L 20 - 31 mmol/L [place] Creatinine [Mass/Vol] 0.61 mg/dL 0.5 - 0.9 mg/dL [place] GFR >60 >60 mL/min [place] GFR Non- >60 >60 mL/min [place] GFR/1.73 sq M predicted among non-blacks MDRD (S/P/Bld) [Vol rate/Area] NOT REPORTED [place] GFR/1.73 sq M predicted among non-blacks MDRD (S/P/Bld) [Vol rate/Area] [place] Comment on above: Average GFR for 20-2 9 years old: 116 mL/min/1.73sq m Chronic Kidney Disease: <60 mL/min/1.73sq m Kidney failure: <15 mL/min/1.73sq m eGFR calculated using average adult body mass. Additional eGFR calculator available at: http://www.Or[employer]ush.Complete Genomics/multiple_crcl_2011.htm Glucose [Mass/Vol] 94 mg/dL 70 - 99 mg/dL [place] Potassium [Moles/Vol] 3.8 mmol/L 3.7 - 5.3 mmol/L [place] Protein [Mass/Vol] 7.1 g/dL 6.4 - 8.3 g/dL [place] Sodium [Moles/Vol] 139 mmol/L 135 - 144 mmol/L [place] Urea nitrogen [Mass/Vol] 8 mg/dL 6 - 20 mg/dL [place] HCG, ,Urineon 02-01 Beta HCG ( test) Ql (U) Negative Normal NEG [facility] Comment on above: Performed By: #### U MICAO, CG, UA #### [facility] [address] [place] [address] Mobile Application Architect: Jonathan Chisholm MD Microscopic Urinalysison Amorphous, UA NOT REPORTED None [place], [place] Bacteria, UA 3+ Abnormal None [place] Casts UA NOT REPORTED /LPF [place] Crystals UA NOT REPORTED None /HPF [place] Epithelial Cells UA 20 TO 50 /HPF [place] Interpretation and review of laboratory results Abnormal [place], [place] Mucus, UA 2+ Abnormal None [place] Other Observations UA NOT REPORTED NOT REQ. M [place] RBC (U) [#/Vol] 2 TO 5 [place] Renal Epithelial, Urine NOT REPORTED 0 /HPF [place] Trichomonas, UA NOT REPORTED None [facility] [place] WBC, UA 2 TO 5 0 /HPF [place] Yeast, UA NOT REPORTED None [place] - [place] Otheron 02-01-2019 Immature granulocytes (Bld) [#/Vol] NOT REPORTED [place] , Urineon 9 Beta HCG ( test) Ql (U) Negative NEGATIVE [place] Urinalysison 02-01-2019 Bilirubin Urine Negative NEGATIVE [facility], [place] Color, UA YELLOW YELLOW [place] Glucose, Ur Negative NEGATIVE [place] Interpretation and review of laboratory results Abnormal [place] Ketones Ql (U) TRACE Abnormal NEGATIVE [place] Leukocyte esterase Test strip Ql (U) Negative NEGATIVE [place] Nitrite, Urine Negative NEGATIVE [place] pH, UA 6.0 [place] Protein (U) [Mass/Vol] 1+ Abnormal NEGATIVE [place], [place] Specific [place], UA 1.020 [place] Turbidity UA CLEAR CLEAR [place] Urinalysis Comments [place] Urine Hgb 3+ Abnormal NEGATIVE [place] Urobilinogen, Urine Normal Normal [place] Urinalysis, Routineon 2018 Acetoacetic Acid,Ur TRACE Abnormal NEG [facility] Comment on above: Performed By: #### U MICAO, [facility], UA #### [facility] [address] [place] [address] Mobile Application Architect: Jonathan Chisholm MD Bilirubin, SemiQt,Ur Negative Normal NEG [facility] Comment on above: Performed By: #### U MICAO, [facility], UA #### [facility] [address] [place] [address] Mobile Application Architect: Jonathan Chisholm MD Color (U) YELLOW Normal YEL [facility] Comment on above: Performed By: #### U MICAO, [facility], UA #### [facility] [address] [place] [address] Mobile Application Architect: Jonathan Chisholm MD Comment Normal [facility] Comment on above: Performed By: #### U MICAO, [facility], UA #### [facility] [address] [place] [address] Mobile Application Architect: Jonathan Chisholm MD Glucose Ql (U) Negative Normal NEG [facility] Comment on above: Performed By: #### U JAZMINEO, [facility], UA #### [facility] [address] [place], [place] [phone] Mobile Application Architect: Jonathan Chisholm MD Hemoglobin, Ur 3+ Abnormal NEG [facility] Comment on above: Performed By: #### U PREMA [facility], UA #### [facility] [address] [place] [address] Mobile Application Architect: Jonathan Chisholm MD Leukocyte esterase Test strip Ql (U) Negative Normal NEG [facility] Comment on above: Performed By: #### U PREMA [facility], UA #### [facility] [address] [place], [place] [phone] Mobile Application Architect: Jonathan Chisholm MD Nitrite,Ur Negative Normal NEG [facility] Comment on above: Performed By: #### U PREMA [facility], UA #### [facility] [address] [place], [place] [phone] Mobile Application Architect: Jonathan Chisholm MD pH (U) 6.0 [pH] Normal 5.0-8.0 [facility] Comment on above: Performed By: #### U PREMA, [facility], UA #### [facility] [address] [place], [place] [phone] Mobile Application Architect: Jonathan Chisholm MD Protein Ql (U) 1+ Abnormal NEG [facility] Comment on above: Performed By: #### U JAZMINEO, [facility], UA #### [facility] [address] [place], [place] [phone] Mobile Application Architect: Jonathan Chisholm MD Specific gravity (U) [Rel density] 1.020 Normal 1.005-1.03 0 [facility] Comment on above: Performed By: #### U JAZMINEO, [facility], UA #### [facility] [address] [place], [place] [phone] Mobile Application Architect: Jonathan Chisholm MD Turbidity CLEAR Normal CLEAR [facility] Comment on above: Performed By: #### U PREMA [facility], UA #### [facility] [address] [place] [address] Mobile Application Architect: Jonathan Chisholm MD Urobilinogen,Ur Normal Normal NORM [facility] Comment on above: Performed By: #### U PREMA [facility], UA #### [facility] [address] [place] [address] Mobile Application Architect: Jonathan Chisholm MD Urinalysis,Microon 9 ----- Normal [facility] Comment on above: Performed By: #### Yane LLOYD [facility], UA #### [facility] [address] [place] [address] Mobile Application Architect: Jonathan Chisholm MD Bacteria LM.HPF (Urine sed) [#/Area] 3+ Abnormal NONE [facility] Comment on above: Performed By: #### Yane LLOYD [facility], UA #### [facility] [address] [place] [address] Mobile Application Architect: Jonathan Chisholm MD Epithelial cells LM.HPF (Urine sed) [#/Area] 20 TO 50 Normal [facility] Comment on above: Performed By: #### U PREMA [facility], UA #### [facility] [address] [place] [phone] Mobile Application Architect: Jonathan Chisholm MD Mucus Strands 2+ Abnormal [facility] Comment on above: Performed By: #### U PREMA [facility], UA #### [facility] [address] [place] [address] Mobile Application Architect: Jonathan Chisholm MD RBC (U) [#/Vol] 2 TO 5 Normal 0-2 [facility] Comment on above: Performed By: #### [facility] #### [facility] [address] [place] [address] Mobile Application Architect: Jonathan Chisholm MD WBC (U) [#/Vol] 2 TO 5 Normal 0 [facility] Comment on above: Performed By: #### [facility], [facility] #### [facility] [address] [place], [place] [phone] Mobile Application Architect: Jonathan Chisholm MD Amorphous sediment LM Ql (Urine sed) NOT REPORTED Normal NONE [facility] Comment on above: Performed By: #### U MICAO, [facility], UA #### [facility] [address] [place] [address] Mobile Application Architect: Jonathan Chisholm MD Casts LM.LPF (Urine sed) [#/Area] NOT REPORTED Normal [facility] Comment on above: Performed By: #### U MICAO, [facility], UA #### [facility] [address] [place], [place] [phone] Mobile Application Architect: Jonathan Chisholm MD Crystals LM Nom (Urine sed) NOT REPORTED Normal [facility] Comment on above: Performed By: #### U MICAO, [facility], UA #### [facility] [address] [place], [place] [phone] Mobile Application Architect: Jonathan Chisholm MD Epithelial, Renal NOT REPORTED Normal 0 [facility] Comment on above: Performed By: #### U MICAO, [facility], UA #### [facility] [address] [place], [place] [phone] Mobile Application Architect: Jonathan Chisholm MD Other Observations NOT REPORTED Normal NREQ [facility] Comment on above: Performed By: #### [facility], [facility] #### [facility] [address] [place], [place] [phone] Mobile Application Architect: Jonathan Chisholm MD Trichomonas NOT REPORTED Normal NONE [facility] Comment on above: Performed By: #### U JAZMINEO, [facility], UA #### [facility] [address] [place] [address] Mobile Application Architect: Jonathan Chisholm MD Yeast LM Ql (Urine sed) NOT REPORTED Normal NONE [facility] Comment on above: Performed By: #### U PREMA, [facility], UA #### [facility] [address] [place], [place] [phone] Mobile Application Architect: Jonathan Chisholm MD Vital Signs Date Time Vital Sign Value Performing Clinician Facility 04-10-2024 11:05-0500 Body mass index (BMI) [Ratio] 27.6 kg/m2 Gaby Peggy DO Work Phone: [facility] 04-10-2024 11:05-0500 Body weight 77.56 kg Gaby Peggy DO Work Phone: [facility] 04-10-2024 11:05-0500 Diastolic blood pressure 72 mm[Hg] Gaby Peggy DO Work Phone: [facility] 04-10-2024 11:05-0500 Systolic blood pressure 114 mm[Hg] Gaby Peggy DO Work Phone: [facility] 2024 13:52-0400 Body height 167.6 cm Gaby Peggy DO Work Phone: [facility] 2024 13:52-0400 Body mass index (BMI) [Ratio] 26.6 kg/m2 Gaby Peggy DO Work Phone: [facility] 2024 13:52-0400 Body weight 74.75 kg Gaby Peggy DO Work Phone: [facility] 2024 13:52-0400 Diastolic blood pressure 56 mm[Hg] Gaby Peggy DO Work Phone: [facility] 2024 13:52-0400 Systolic blood pressure 100 mm[Hg] Gaby Peggy DO Work Phone: [facility] 03-21-2023 18:10-0500 Body height 167.64 cm Rina Anton Other [facility] Other 03-21-2023 18:10-0500 Body mass index (BMI) [Ratio] 26.95 kg/m2 Rina Anton Other [facility] Other 03-21-2023 18:10-0500 Body temperature 98.9 [degF] Rina Anton Other [facility] Other 03-21-2023 18:10-0500 Body weight 75.75 kg Rina Anton Other [facility] Other 03-21-2023 18:10-0500 Respiratory rate 18 /min Rina Anton Other [facility] Other 03-21-2023 18:10-0500 SaO2% (BldA) [Mass fraction] 97 % Rina Anton Other [facility] Other 02-01-2019 06:41-0400 BP Diastolic 64 mm[Hg] [facility] [employer] [facility] [place] 02-01-2019 06:41-0400 BP Systolic 107 mm[Hg] [facility] [place] 02-01-2019 06:41-0400 Pulse (Heart Rate) 64 /min [facility] [employer] [facility] [place] 02-01-2019 04:30-0400 Body Temperature 98.01 [degF] [facility] [employer] [place] 02-01-2019 04:30-0400 Body weight 58.92 kg [facility] [employer] [facility] [place] 02-01-2019 04:30-0400 Pulse Oximetry 100 % [facility] [employer] [facility] [place] 02-01-2019 04:30-0400 Respiratory Rate 18 /min Keyla Leyva [facility], [place] Encounters Encounter Date Encounter Type Care Provider Facility Start: 04-18-2024 End: 04-19-2024 Clinisync Result Encounter Gaby Peggy DO Work Phone: [facility] Unsolicited Start: 04-18-2024 End: 04-19-2024 Clinisync Result Encounter Gaby Peggy DO Work Phone: [facility] Unsolicited Start: 04-10-2024 End: 04-10-2024 Bamboo flowsheet Gaby Peggy DO Work Phone: [facility] Start: 04-10-2024 End: 04-10-2024 Bamboo flowsheet Gaby Peggy DO Work Phone: [facility] Start: 04-10-2024 End: 04-10-2024 Office outpatient visit 15 minutes Gaby Peggy DO Work Phone: [facility] Comment on above: Encounter for infert ility; Hormone disorder Start: 04-10-2024 End: 04-10-2024 ambulatory GABY PEGGY Not Available Start: 03-21-2024 End: 03-21-2024 Clinisync Result Encounter Gaby Peggy DO Work Phone: [facility] Unsolicited Start: 03-21-2024 End: 03-21-2024 Clinisync Result Encounter Gaby Peggy DO Work Phone: [facility] Unsolicited Start: 02-17-2024 End: 02-19-2024 Clinisync Result Encounter Gaby Peggy DO Work Phone: [facility] Unsolicited Start: 02-17-2024 End: 02-19-2024 Clinisync Result Encounter Gaby Peggy DO Work Phone: [facility] Unsolicited Start: 2024 End: 2024 Clinisync Result Encounter Gaby Peggy DO Work Phone: [facility] Unsolicited Start: 2024 End: 2024 Clinisync Result Encounter Gaby Peggy DO Work Phone: [facility] Unsolicited Start: 2024 End: 2024 Office outpatient visit 15 minutes Gaby Peggy DO Work Phone: [facility] Comment on above: Female infertility; History of miscarriage Start: 2024 End: 2024 ambulatory GABY PEGGY Not Available Start: 01-05-2024 End: 01-05-2024 Patient encounter procedure MD Zachary Mayes Work Phone: [facility] [place] Work Phone: Start: 01-05-2024 End: 01-05-2024 ambulatory MD Zachary Mayes Work Phone: [facility] Work Phone: Start: 12-28-2023 End: 12-28-2023 Patient encounter procedure MD Zachary Mayes Work Phone: [facility] [place] Work Phone: Start: 12-28-2023 End: 12-28-2023 ambulatory MD Zachary Mayes Work Phone: [facility] Work Phone: Start: 12-22-2023 End: 12-22-2023 Patient encounter procedure MD Zachary Mayes Work Phone: [facility] [place] Work Phone: Start: 12-22-2023 End: 12-22-2023 ambulatory MD Zachary Mayes Work Phone: [facility] Work Phone: Start: 12-21-2023 End: 12-21-2023 ambulatory GABY PEGGY Not Available Start: 12-20-2023 End: 12-20-2023 Patient encounter procedure MD Zachary Mayes Work Phone: [facility] [place] Work Phone: Start: 12-20-2023 End: 12-20-2023 ambulatory MD Zachary Mayes Work Phone: [facility] Work Phone: Start: 12-09-2023 End: 12-09-2023 Patient encounter procedure MD Zachary Mayes Work Phone: [facility] [place] Work Phone: Start: 12-09-2023 End: 12-09-2023 ambulatory MD Zachary Mayes Work Phone: [facility] Work Phone: Start: 12-07-2023 End: 12-07-2023 Patient encounter procedure MD Zachary Mayes Work Phone: [facility] [place] Work Phone: Start: 12-07-2023 End: 12-07-2023 ambulatory MD Zachary Mayes Work Phone: [facility] Work Phone: Start: 12-05-2023 End: 12-05-2023 Patient encounter procedure MD Zachary Mayes Work Phone: [facility] [place] Work Phone: Start: 12-05-2023 End: 12-05-2023 ambulatory MD Zachary Mayes Work Phone: [facility] Work Phone: Start: 12-02-2023 End: 12-02-2023 ambulatory MD Zachary Mayes Work Phone: [facility] Work Phone: Start: 12-02-2023 End: 12-02-2023 Patient encounter procedure MD Zachary Mayes Work Phone: [facility] [place] Work Phone: Start: 05-02-2023 End: 05-02-2023 ambulatory PALOMA VAZQUEZ Not Available Start: 05-01-2023 End: 05-01-2023 Admission to same day surgery center MD Zachary Mayes Work Phone: [facility] Work Phone: Start: 05-01-2023 End: 05-01-2023 ambulatory MD Zachary Mayes Work Phone: [facility] Work Phone: Start: 03-21-2023 End: 03-21-2023 ambulatory Rina Anton Other [employer] Other Start: 03-21-2023 Office outpatient ne w 30 minutes Rina Anton [facility] Start: 02-01-2019 End: 02-01-2019 Emergency department patient visit VESELIN GORDON [facility] Start: 02-01-2019 End: 02-01-2019 Emergency department patient visit Veselin Gordon Work Phone: [facility] ED Comment on above: Abdominal pain, righ t lower quadrant (Primary Dx); History of ovarian cyst Procedures Date Procedure Procedure Detail Performing Clinician Start: 04-18-2024 ALL PROGESTERONE Gaby Peggy DO Work Phone: Start: 03-21-2024 [facility] PREG QUANT HCG Core y Peggy DO Work Phone: Start: 02-17-2024 ALL PROGESTERONE Gaby Peggy DO Work Phone: Start: 2024 MLR HEMOGLOBIN A1C Core y Peggy DO Work Phone: Start: 12-20-2023 Diagnostic [...] Treatment Date Care Activity Detail Author Start: 04-10-2024 End: 04-10-2025 Antimullerian hormone ([facility]) Antimullerian hormone ([facility]) Lab Routine Hormone disorder Expected: 04/10/2024 (Approximate), Expires: 04/10/2025 [facility] Work Phone: Comment on above: Expected: 04/10/2024 (Approximate), Expires: 04/10/2025 Start: 04-10-2024 End: 04-10-2024 Patient encounter procedure 04/10/2024 11:10 AM EST Office Visit [facility] [address] [place] [id number] Gaby Woods, DO [address] [place] [address] Arrived [facility] Comment on above: Arrived Start: 2024 End: 2024 Patient encounter procedure 2024 1:20 PM EDT Office Visit [facility] [address] [place] [address] Gaby Woods, DO [address] [place] [address] [place] [address] [facility] Start: 01-13-2019 Influenza vaccination Flu vaccine (# 1) [facility] [place], [place] Progesterone [Mass/volume] in Serum or Plasma [facility] Payers Date Payer Category Payer [employer] [id number] 2024 Unknown [id number] 2023 Self-pay [id number] 2023 Private Health Insurance [id number] 2023 Private Health Insurance [id number] Unknown [id number] 2014 Unknown BCBS [place] - [place] P PO xxxxxxxxxxxx 2014-Present [id number] [place] [address] xxxxxxxxxxxx [id number] 1998 Unknown [id number] 2.16.840.1.418236.3.579.2 .174 1998 Unknown [id number] 2.16.840.1.911142.3.579.2 .1259 1998 Unknown [id number] 2.16.840.1.018630.3.579.2 .1259 1998 Unknown [id number] 2.16.840.1.986580.3.579.2 .1259 1998 Unknown [id number] 2.16.840.1.841095.3.579.2 .1259 1998 Unknown [id number] 2.16.840.1.305341.3.579.2 .1259 Unknown O [id number] Unknown Waves BC/BS [id number] Unknown [id number] 2.16.840.1.912679.3.579.2 .531 Unknown [id number] 2.16.840.1.875451.3.579.2 .531 Unknown [id number] 2.16.840.1.957997.3.579.2 .531 Unknown [id number] 2.16.840.1.534750.3.579.2 .531 Unknown [id number] 2.16.840.1.412685.3.579.2 .531 Unknown [id number] 2.16.840.1.458542.3.579.2 .531 Unknown [id number] 2.16840.1.683803.3.579.2 .531 Unknown [id number] 2.16840.1.670472.3.579.2 .531 Unknown [id number] 2.16840.1.130884.3.579.2 .531 Social History Date Type Detail Facility Start: 02-01-2019 End: 04-28-2023 Tobacco smoking status NHIS Never smoker [facility] Start: 02-01-2019 End: 04-28-2023 Alcohol intake Not Currently [place], [place] Start: 1998 Sex Assigned At Not on file [place], [place] Start: 1998 Sex Assigned At Female [facility] Start: 12-21-2023 End: 2024 Alcoholic beverage intake Lifetime non-drinker (finding) [facility] Start: 04-28-2023 History of Social function [facility] Start: 04-28-2023 Alcohol Comment Caffeine intak e: 3-4 cups per day [facility] History of Present illness Narrative 04-10-2024 Lisa Prasad, BRIANA - 04/10/2024 11:10 AM EST Note Date & Type Note Facility 04-10-2024 History of Presen t illness Narrative Reason for Appointment: Patient ID: Daphney Montesinos is a 24 y.o. female who presents for Infertility Patient presents today for Fertility Follow Up appointment. MEDICATIONS Current Outpatient Medications Medication Instructions aspirin 81 MG oral suspension Vit w/Xj-Bohzrfxsq-QO (PNV PO) ALLERGIES Allergies Allergen Reactions Cephalexin Nausea And Vomiting Other Reaction(s): severe vomiting Other Reaction(s): Vomiting Ciprofloxacin Other Reaction(s): GI Intolerance Pt states projectile vomiting. Prednisone Nausea And Vomiting Other Reaction(s): severe vomiting Other Reaction(s): Vomiting PROBLEMS Active Ambulatory Problems Diagnosis Date Noted No Active Ambulatory Problems Resolved Ambulatory Problems Diagnosis Date Noted No Resolved Ambulatory Problems Past Medical History: Diagnosis Date Acne vulgaris Endometriosis History of medical problems Miscarriage Ovarian cyst HISTORY PAST MEDICAL HISTORY SOCIAL HISTORY Past Medical History: Diagnosis Date Acne vulgaris Endometriosis History of medical problems recurrent strep Miscarriage Ovarian cyst Social History Tobacco Use Smoking status: Never Smokeless tobacco: Not on file Substance Use Topics Alcohol use: Never Comment: Caffeine intake: 3-4 cups per day Drug use: Never FAMILY HISTORY Family History Problem Relation Name Age of Onset Hypertension Father Diabetes Maternal Grandmother Heart disease Maternal Grandfather Heart disease Paternal Grandmother Other (liver failure) Paternal Grandfather Kidney failure Paternal Grandfather SURGICAL HISTORY Past Surgical History: Procedure Laterality Date BREAST BIOPSY Right 12/2018 LAPAROSCOPY DIAGNOSTIC / BIOPSY / ASPIRATION / LYSIS 11/20/2019 Diagnostic lap-endometriosis TONSILLECTOMY 11/03/2016 REVIEW OF SYSTEMS Review of Systems: Review of Systems Constitutional: Negative. HENT: Negative. Eyes: Negative. Respiratory: Negative. Cardiovascular: Negative. Gastrointestinal: Negative. Genitourinary: Negative. Musculoskeletal: Negative. Skin: Negative. Neurological: Negative. All other systems reviewed and are negative. Hematological: Negative. Endocrine: Negative. Allergic/Immunologic: Negative. OBJECTIVE Objective: Physical Exam Constitutional: Appearance: Normal appearance. She is well-developed. Cardiovascular: Rate and Rhythm: Normal rate and regular rhythm. Pulmonary: Effort: Pulmonary effort is normal. Breath sounds: Normal breath sounds. Abdominal: General: Bowel sounds are normal. There is no distension. Palpations: Abdomen is soft. Tenderness: There is no abdominal tenderness. There is no guarding or rebound. Musculoskeletal: General: No swelling. Normal range of motion. Right lower leg: No edema. Left lower leg: No edema. Neurological: Mental Status: She is alert and oriented to person, place, and time. Skin: General: Skin is warm and dry. Psychiatric: Mood and Affect: Mood normal. Behavior: Behavior normal. Vitals and nursing note reviewed. Exam conducted with a side gluer present. Vitals: Estimated body mass index is 27.6 kg/m as calculated from the following: Height as of 02/06/24: 5' 6 . Weight as of this encounter: 171 lb. BP: 114/72 Patient's last menstrual period was 03/29/2024 (exact date). ASSESSMENT & PLAN ICD-10-CM 1. Encounter for infertility Z31.9 Pt presents to discuss fertility and ovulation regarding when to start progesterone. Discussed role of estrogen and progesterone. Pt advised to start progesterone on day 19 of cycle, and continue intercourse on days 12, 14, 16,18, 20. Pt is currently on 3rd round of femara. Progesterone levels show pt is ovulating. Pt voiced understanding. Discussed LAST referral towards [facility]. Documented by Lisa Prasad LPN on behalf of: Gaby Woods DO documented in this encounter [facility] History of Present illness Narrative 2024 Lisa Prasad LPN - 2024 1:20 PM EDT Note Date & Type Note Facility 2024 History of Presen t illness Narrative Reason for Appointment: Patient ID: Daphney Montesinos is a 23 y.o. female who presents for Infertility Patient presents today for Fertility Follow Up appointment. MEDICATIONS Current Outpatient Medications Medication Instructions aspirin 81 MG oral suspension Vit w/Zm-Zdbahkckq-OY (PNV PO) ALLERGIES Allergies Allergen Reactions Cephalexin Nausea And Vomiting Other Reaction(s): severe vomiting Other Reaction(s): Vomiting Ciprofloxacin Other Reaction(s): GI Intolerance Pt states projectile vomiting. Prednisone Nausea And Vomiting Other Reaction(s): severe vomiting Other Reaction(s): Vomiting PROBLEMS Active Ambulatory Problems Diagnosis Date Noted No Active Ambulatory Problems Resolved Ambulatory Problems Diagnosis Date Noted No Resolved Ambulatory Problems Past Medical History: Diagnosis Date Acne vulgaris Endometriosis History of medical problems Miscarriage Ovarian cyst HISTORY PAST MEDICAL HISTORY SOCIAL HISTORY Past Medical History: Diagnosis Date Acne vulgaris Endometriosis History of medical problems recurrent strep Miscarriage Ovarian cyst Social History Tobacco Use Smoking status: Never Smokeless tobacco: Not on file Substance Use Topics Alcohol use: Never Comment: Caffeine intake: 3-4 cups per day Drug use: Never FAMILY HISTORY Family History Problem Relation Name Age of Onset Hypertension Father Diabetes Maternal Grandmother Heart disease Maternal Grandfather Heart disease Paternal Grandmother Other (liver failure) Paternal Grandfather Kidney failure Paternal Grandfather SURGICAL HISTORY Past Surgical History: Procedure Laterality Date BREAST BIOPSY Right 12/2018 LAPAROSCOPY DIAGNOSTIC / BIOPSY / ASPIRATION / LYSIS 11/20/2019 Diagnostic lap-endometriosis TONSILLECTOMY 11/03/2016 REVIEW OF SYSTEMS Review of Systems: Review of Systems Constitutional: Negative. HENT: Negative. Eyes: Negative. Respiratory: Negative. Cardiovascular: Negative. Gastrointestinal: Negative. Genitourinary: Negative. Musculoskeletal: Negative. Skin: Negative. Neurological: Negative. All other systems reviewed and are negative. Hematological: Negative. Endocrine: Negative. Allergic/Immunologic: Negative. OBJECTIVE Objective: Physical Exam Constitutional: Appearance: Normal appearance. She is well-developed. Cardiovascular: Rate and Rhythm: Normal rate and regular rhythm. Pulmonary: Effort: Pulmonary effort is normal. Breath sounds: Normal breath sounds. Abdominal: General: Bowel sounds are normal. There is no distension. Palpations: Abdomen is soft. Tenderness: There is no abdominal tenderness. There is no guarding or rebound. Musculoskeletal: General: No swelling. Normal range of motion. Right lower leg: No edema. Left lower leg: No edema. Neurological: Mental Status: She is alert and oriented to person, place, and time. Skin: General: Skin is warm and dry. Psychiatric: Mood and Affect: Mood normal. Behavior: Behavior normal. Vitals and nursing note reviewed. Exam conducted with a side gluer present. Vitals: Estimated body mass index is 26.6 kg/m as calculated from the following: Height as of this encounter: 5' 6 . Weight as of this encounter: 164 lb 12.8 oz. BP: 100/56 Patient's last menstrual period was 01/28/2024. ASSESSMENT & PLAN ICD-10-CM 1. Female infertility N97.9 Pt has stage 4 endometriosis, currently taking femara. Pt has h/o miscarriages- when pt is will call office and progesterone suppositories will be called in 200mg twice a day. Pt states she is an early ovulation will start intercourse days 10, 12, 14,16, 18 and 20. Pt will start progesterone on day 17 of cycle and still have progesterone lab day 21 of cycle. Reviewed HSG and sonohysterogram with pt. Pt given standing order of HCG. Documented by Lisa Prasad LPN on behalf of: Gaby Woods DO documented in this encounter [facility] Evaluation note 03-21-2023 Note [...] treatment plan. Patient left in stable condition [facility] Other Evaluation note Note Date & Type Note Facility Evaluation note [facility] Evaluation note Note Date & Type Note Facility Evaluation note Diagnosis Encounter for infertility Hormone disorder Unspecified endocrine disorder documented in this encounter [facility] Evaluation note Note Date & Type Note Facility Evaluation note Diagnosis Female infertility Female infertility of unspecified origin History of miscarriage Personal history of other genital system and obstetric disorders documented in this encounter [facility] History general Narrative - Reported Note Date & Type Note Facility History general Narrative - Reported Type Surgical History tonsillectomy Surgical History laparoscopy [facility] Other Summary Purpose Family History Relationship Condition Age at Onset Recorded Date/T juliette father Congestive heart failure Unknown Advance Directives Documents on File Type Date Recorded 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 * Abdominal Pain (Greenlandic) * Appendicitis (Greenlandic) documented in this encounter Assessments Diagnosis Abdominal [...] and content) DATE CREATED AUTHOR 02/01/2019 Fina thorpe DATE CREATED AUTHOR AUTHOR'S ORGANIZ ATION 05/05/2023 [facility] DATE CREATED AUTHOR AUTHOR'S ORGANIZ ATION 01/19/2024 [facility] DATE CREATED AUTHOR AUTHOR'S ORGANIZ ATION 04/13/2024 [facility] EPIC Reason for Visit (unrecogniz ed section and content) Reason Comments Abdominal Pain RLQ pain x 1 hour Reason Comments Infertility Care Teams (unrecognized sec tion and content) [...] 2023 End: December 05, 2023 Gaby Woods , Attending Provider Active Start : December 05, [...] December 20, 2023 End: December 20, 2023 Gabyashish Altamiranoo , DO Attending Provider Active Start : December 20, 2023 End: December 20, 2023 Team Status: Inactive Member Role Status Dates Zachary Mayes MD Primary Care Provider Active Start: December 22, 2023 End: December 22, 2023 Gaby Altamiranoo , DO Attending Provider Active Start : December 22, 2023 End: December 22, 2023 Team Status: Inactive Member Role Status Dates Zachary Mayes MD Primary Care Provider Active Start: December 28, 2023 End: December 28, 2023 Gaby Woods DO Attending Provider Active Start : December 28, 2023 End: December 28, 2023 Team Status: Inactive Member Role Status Dates Zachary Mayes MD Primary Care Provider Active Start: January 05, 2024 End: January 05, 2024 Gaby Woods DO Attending Provider Active Start : January 05, 2024 End: January 05, 2024 Juice Scaleman Relationship Specialty Start Date End Date Alberto Mayes MD [address] [place] [address] PCP - General 05/02/23 Paloma Vazquez DO [address] [place] [address] Referring Physician Obstetrics and Gynecology 04/25/23 Juice Scaleman Relationship Specialty Start Date End Date Alberto Mayes MD [address] [place] [id number] PCP - General 05/02/23 Paloma Vazquez DO [address] [place] [address] Referring Physician Obstetrics and Gynecology 04/25/23 Juice Scaleman Relationship Specialty Start Date End Date Alberto Mayes MD [address] [place] [address] PCP - General 05/02/23 Paloma Vazquez DO [address] [place] [address] Referring Physician Obstetrics and Gynecology 04/25/23 Juice Scaleman Relationship Specialty Start Date End Date Alberto Mayes MD [address] [place] [address] PCP - General 05/02/23 Paloma Vazquez DO [address] [place] [address] Referring Physician Obstetrics and Gynecology 04/25/23 Juice Scaleman Relationship Specialty Start Date End Date Alberto Mayes MD [address] [place] [address] [place] [address] [place] [address] PCP - General 05/02/23 Paloma Vazquez DO [address] [facility] [[email or web address] [address] [place] [address] Referring Physician Obstetrics and Gynecology 04/25/23 Goals [...] BE BASED ON THE PRIMARY CLINICAL RECORDS. [facility] [employer] [facility]. provides no warranty or guarantee of the accuracy or completeness of information in this document.
[2024-06-15 04:08] LABS: Progesterone 26.8 ng/mL (.)
== END 2024-06-14 06:40 | disposition home or self-care (01) ==
LOC: LAB 06:42
PROVIDERS: PCP Family Medicine; Visit Provider Obstetrics & Gynecology
DX: N97.0 Female infertility associated with anovulation (principal)
CPT/HCPCS: 36415; 84144

== ENCOUNTER 2024-08-15 07:37 | Outpatient (RCR) | payer BC, SELFPAY ==
[2024-08-15 08:21] LABS: HCG Quantitative 7 mIU/mL
[2024-08-17 09:33] LABS: HCG Quantitative 42 mIU/mL
[2024-08-20 09:27] LABS: HCG Quantitative 197 mIU/mL
[2024-08-22 10:04] LABS: HCG Quantitative 513 mIU/mL
[2024-08-26 14:34] LABS: HCG Quantitative 2576 mIU/mL
== END 2024-09-11 09:54 | disposition home or self-care (01) ==
LOC: LAB 07:37
PROVIDERS: PCP Family Medicine; Visit Provider Obstetrics & Gynecology
DX: N92.6 Irregular menstruation, unspecified (principal); Z87.59 Personal history of other complications of pregnancy, childbirth and the puerperium
CPT/HCPCS: 36415; 84702

== ENCOUNTER 2024-08-24 06:54 | Outpatient (OUT) | payer BC, SELFPAY ==
--- OUTSIDE RECORDS SUMMARY | 2024-08-24 06:59 | XMS_ITS | CCD ---
Author Organization [facility] Care Team Providers Care Foundation Relations Director Name Role Phone KEYLA LEYVA Attending Unavailable [...] Care Unavailable Paloma Vazquez DO E Unavailable Alberto Mayes MD Primary Care Provider [phone] RAJ WOODSY Attending Unavailable PEGGY, GABY Attending Unavailable PALOMA VAZQUEZ Attending Unavailable PALOMA VAZQUEZ Referring Unavailable PALOMA VAZQUEZ Referring Unavailable GABY WOODS Attending Unavailable Allergies Allergy Classification Reported Allergen(s) Allergy Type Date of Onset Reaction(s) Facility (20 sources) Cephalexin Drug Allergy 9 Nausea And Vomiting [place] (10 sources) predniSONE Drug Allergy 9 Nausea And Vomiting [place] (1 source) Cephalexin Drug Allergy 0 [facility]ository (1 source) predniSONE Drug Allergy 0 [facility] (14 sources) Ciprofloxacin Drug Allergy 9 [facility] Healthcare (14 sources) Prednisone Propensity to adverse reactions 9 Nausea And Vomiting [facility] Healthcare Medications Current Medications Medication Drug Class(es) Dates Sig (Normalized) Sig (Original) aspirin 81 mg oral tablet (14 sources) Platelet Aggregation Inhibitor, Nonsteroidal Anti-inflammatory Drug [...] Orally BID for 5 Mar, Active Vit w/Lc-Opahwrbnz-IW (PNV PO) (14 sources) Vit w/Il-Bgzoigoxn-II (PNV PO) Active Progesterone 200 MG suppository [...] Results Test Name Value Interpretation Reference Range [facility] PREG QUANT HCGon 025 HCG QUANTITATIVE 513 mIU/mL [facility] Comment on above: 5-50 0.2-1 WEEK 50-500 1-2 WEEKS 100-5,000 2-3 WEEKS 500-10,000 3-4 WEEKS 1,000-50,000 4-5 WEEKS 10,000-100,000 5-6 WEEKS 15,000-200,000 6-8 WEEKS 10,000-100,000 2-3 MONTHS [facility] PREG QUANT HCGon 025 HCG QUANTITATIVE 197 mIU/mL [facility] Comment on above: 5-50 0.2-1 WEEK 50-500 1-2 WEEKS 100-5,000 2-3 WEEKS 500-10,000 3-4 WEEKS 1,000-50,000 4-5 WEEKS 10,000-100,000 5-6 WEEKS 15,000-200,000 6-8 WEEKS 10,000-100,000 2-3 MONTHS [facility] PREG QUANT HCGon 025 HCG QUANTITATIVE 42 mIU/mL [facility] Comment on above: 5-50 0.2-1 WEEK 50-500 1-2 WEEKS 100-5,000 2-3 WEEKS 500-10,000 3-4 WEEKS 1,000-50,000 4-5 WEEKS 10,000-100,000 5-6 WEEKS 15,000-200,000 6-8 WEEKS 10,000-100,000 2-3 MONTHS [facility] PREG QUANT HCGon 025 HCG QUANTITATIVE 7 mIU/mL [facility] Comment on above: 5-50 0.2-1 WEEK 50-500 1-2 WEEKS 100-5,000 2-3 WEEKS 500-10,000 3-4 WEEKS 1,000-50,000 4-5 WEEKS 10,000-100,000 5-6 WEEKS 15,000-200,000 6-8 WEEKS 10,000-100,000 2-3 MONTHS [facility] ALL PROGESTERONEon 5 PROGESTERONE 26.8 ng/mL . [facility] Comment on above: Follicular phase 0.1 - 0.9 Luteal phase 1.8 - 23.9 Ovulation phase 0.1 - 12.0 First trimester 11.0 - 44.3 Second trimester 25.4 - 83.3 Third trimester 58.7 - 214.0 Postmenopausal 0.0 - 0.1 Performed at: [address] [id number] [employer]ator: Jordin Rao PhD, Phone: [phone] [facility] ALL PROGESTERONEon 4 PROGESTERONE 59.6 ng/mL . [facility] Comment on above: Follicular phase 0.1 - 0.9 Luteal phase 1.8 - 23.9 Ovulation phase 0.1 - 12.0 First trimester 11.0 - 44.3 Second trimester 25.4 - 83.3 Third trimester 58.7 - 214.0 Postmenopausal 0.0 - 0.1 Performed at: [address] [id number] [employer]ator: Jordin Rao PhD, Phone: [phone] [facility] PREG QUANT HCGon 024 HCG QUANTITATIVE <1 mIU/mL [facility] Comment on above: 5-50 0.2-1 WEEK 50-500 1-2 WEEKS 100-5,000 2-3 WEEKS 500-10,000 3-4 WEEKS 1,000-50,000 4-5 WEEKS 10,000-100,000 5-6 WEEKS 15,000-200,000 6-8 WEEKS 10,000-100,000 2-3 MONTHS [facility] ALL PROGESTERONEon 4 PROGESTERONE 17.9 ng/mL . [facility] Comment on above: Follicular phase 0.1 - 0.9 Luteal phase 1.8 - 23.9 Ovulation phase 0.1 - 12.0 First trimester 11.0 - 44.3 Second trimester 25.4 - 83.3 Third trimester 58.7 - 214.0 Postmenopausal 0.0 - 0.1 Performed at: CB - [facility] [address] [id number] [employer]ator: Jordin Rao PhD, Phone: [phone] [facility] MLR HEMOGLOBIN A1Con 024 Glucose [Mass/Vol] 88 mg/dL [facility] HbA1c (Bld) [Mass fraction] 4.7 % 4.5 - 6.2 % [facility] Comment on above: ADA RECOMMENDED LIMI T 4.0 - 6.0 ADA THERAPEUTIC TARGET < 7.0 ACTION SUGGESTED > 7.0 [facility] Choriogonadotropin.beta subu nit [Units/volume] in Serum or PlasmaOrdered By: Gaby Woods on 01-05-2024 HCG.beta subunit Qn 4.96 m[IU]/mL [facility] Comment on above: Approximate Approxim ate [...] 10,000-100,000 6-8 15,000-200,000 8-12 10,000-100,000 PERFORMED BY: [place] [address] PATHOLOGIST AIRPLANE PILOT TO ANAYA M.D. Performed By: #### H CGQNT #### [address] Choriogonadotropin.beta subu nit [Units/volume] in Serum or PlasmaOrdered By: Gaby Woods on 08-15-2024 HCG.beta subunit Qn 108.32 m[IU]/mL [facility] Comment on above: Approximate Approxim ate hCG Gestational Age Range (mIU/ml) (weeks)0.2-1 5-50 1-2 50-500 2-3 100-5,000 3-4 500-10,000 4-5 1,000-50,000 5-6 10,000-100,000 6-8 15,000-200,000 8-12 10,000-100,000 HCG,Quantitativeon 4 HCG,Quantitative 108.32 m[iU]/mL Normal [facility] Comment on above: Result Comment: Appr oximate Approximate hCG Gestational Age Range (mIU/ml) (weeks) 0.2-1 5-50 1-2 50-500 2-3 100-5,000 3-4 500-10,000 4-5 1,000-50,000 5-6 10,000-100,000 6-8 15,000-200,000 8-12 10,000-100,000 PERFORMED BY: [place] [address] PATHOLOGIST AIRPLANE PILOT TO ANAYA M.D. Performed By: #### H CGQNT #### [address] Choriogonadotropin.beta subu nit [Units/volume] in Serum or PlasmaOrdered By: Gaby Woods on 12-22-2023 HCG.beta subunit Qn 1030.88 m[IU]/mL [facility] Comment on above: Approximate Approxim ate hCG Gestational Age Range (mIU/ml) (weeks)0.2-1 5-50 1-2 50-500 2-3 100-5,000 3-4 500-10,000 4-5 1,000-50,000 5-6 10,000-100,000 6-8 15,000-200,000 8-12 10,000-100,000 HCG,Quantitativeon 4 HCG,Quantitative 1030.88 m[iU]/mL Normal [facility] Comment on above: Result Comment: Appr oximate Approximate hCG Gestational Age Range (mIU/ml) (weeks) 0.2-1 5-50 1-2 50-500 2-3 100-5,000 3-4 500-10,000 4-5 1,000-50,000 5-6 10,000-100,000 6-8 15,000-200,000 8-12 10,000-100,000 PERFORMED BY: [facility] [address] [place] [address] PATHOLOGIST AIRPLANE PILOT TO ANAYA M.D. Performed By: #### H CGQNT ####[facility] [id number] [place] [id number] [facility] Choriogonadotropin.beta subu nit [Units/volume] in Serum or PlasmaOrdered By: Gaby Woods on 12-20-2023 HCG.beta subunit Qn 988.06 m[IU]/mL [facility] Comment on above: Approximate Approxim ate hCG Gestational Age Range (mIU/ml) (weeks)0.2-1 5-50 1-2 50-500 2-3 100-5,000 3-4 500-10,000 4-5 1,000-50,000 5-6 10,000-100,000 6-8 15,000-200,000 8-12 10,000-100,000 HCG,Quantitativeon 4 HCG,Quantitative 988.06 m[iU]/mL Normal [facility] Comment on above: Result Comment: Appr oximate Approximate hCG Gestational Age Range (mIU/ml) (weeks) 0.2-1 5-50 1-2 50-500 2-3 100-5,000 3-4 500-10,000 4-5 1,000-50,000 5-6 10,000-100,000 6-8 15,000-200,000 8-12 10,000-100,000 PERFORMED BY: [facility] [address] [place] [address] PATHOLOGIST AIRPLANE PILOT TO ANAYA M.D. Performed By: #### H CGQNT #### [facility] [address] [place] [address] [facility] US OB transvaginalon 024 OB transvaginal [facility] Main [place] [address] [place] [address] Ultrasound Report Signed Patient: Daphney Montesinos MR#: [id number] : 2000 Acct:[id number] Age/Sex: 23 / F ADM Date: 12/20/23 Loc: Room: Type: [facility] Attending Dr: Gaby Woods DO Ordering Provider: Gaby Woods Date of Service: 12/20/23 US/US OB <= 14 weeks fetus: N92.6 ([id number]) US/US OB transvaginal: N92.6 Copies to: Gaby [...] Lisa Rojas M.D.12/20/2023 5:46 PM Dictation Location: [place] [address] Tech: Deb Real Transcribed By: FLETCHER 12/20/231745 Dictated By: Lisa Rojas MD 12/20/23 1739 Signed By: 12/20/231745 Normal [facility] Choriogonadotropin.beta subu nit [Units/volume] in Serum or PlasmaOrdered By: Gaby Woods on 12-09-2023 HCG.beta subunit Qn 295.86 m[IU]/mL [facility] Comment on above: Approximate Approxim ate hCG Gestational Age Range (mIU/ml) (weeks)0.2-1 5-50 1-2 50-500 2-3 100-5,000 3-4 500-10,000 4-5 1,000-50,000 5-6 10,000-100,000 6-8 15,000-200,000 8-12 10,000-100,000 HCG,Quantitativeon 4 HCG,Quantitative 295.86 m[iU]/mL Normal [facility] Comment on above: Result Comment: Appr oximate Approximate hCG Gestational Age Range (mIU/ml) (weeks) 0.2-1 5-50 1-2 50-500 2-3 100-5,000 3-4 500-10,000 4-5 1,000-50,000 5-6 10,000-100,000 6-8 15,000-200,000 8-12 10,000-100,000 PERFORMED BY: [place] [address] PATHOLOG[address] AIRPLANE PILOT TO ANAYA M.D. Performed By: #### H CGQNT #### [address] Choriogonadotropin.beta subu nit [Units/volume] in Serum or PlasmaOrdered By: Gaby Woods on 12-07-2023 HCG.beta subunit Qn 135.80 m[IU]/mL [facility] Comment on above: Approximate Approxim ate hCG Gestational Age Range (mIU/ml) (weeks)0.2-1 5-50 1-2 50-500 2-3 100-5,000 3-4 500-10,000 4-5 1,000-50,000 5-6 10,000-100,000 6-8 15,000-200,000 8-12 10,000-100,000 HCG,Quantitativeon 4 HCG,Quantitative 135.80 m[iU]/mL Normal [facility] Comment on above: Result Comment: Appr oximate Approximate hCG Gestational Age Range (mIU/ml) (weeks) 0.2-1 5-50 1-2 50-500 2-3 100-5,000 3-4 500-10,000 4-5 1,000-50,000 5-6 10,000-100,000 6-8 15,000-200,000 8-12 10,000-100,000 PERFORMED BY: [place] [address] PATHOLOGIST AIRPLANE PILOT TO ANAYA M.D. Performed By: #### H CGQNT #### [address] Choriogonadotropin.beta subu nit [Units/volume] in Serum or PlasmaOrdered By: AMBAR Reardon on 12-05-2023 HCG.beta subunit Qn 69.85 m[IU]/mL [facility] Comment on above: Approximate Approxim ate hCG Gestational Age Range (mIU/ml) (weeks)0.2-1 5-50 1-2 50-500 2-3 100-5,000 3-4 500-10,000 4-5 1,000-50,000 5-6 10,000-100,000 6-8 15,000-200,000 8-12 10,000-100,000 HCG,Quantitativeon 4 HCG,Quantitative 69.85 m[iU]/mL Normal [facility] Comment on above: Result Comment: Appr oximate Approximate hCG Gestational Age Range (mIU/ml) (weeks) 0.2-1 5-50 1-2 50-500 2-3 100-5,000 3-4 500-10,000 4-5 1,000-50,000 5-6 10,000-100,000 6-8 15,000-200,000 8-12 10,000-100,000 PERFORMED BY: [place] [address] PATHOLOGIST AIRPLANE PILOT TO ANAYA M.D. Performed By: #### H CGQNT #### [address] Progesteroneon 12-05-2023 Progesterone 26.5 ng/mL Normal . [facility] Comment on above: Result Comment: Foll icular phase 0.1 - 0.9 Luteal phase 1.8 - 23.9 Ovulation phase 0.1 - 12.0 First trimester 11.0 - 44.3 Second trimester 25.4 - 83.3 Third trimester 58.7 - 214.0 Postmenopausal 0.0 - 0.1 Performed at: [email or web address] [address] [id number] [employer] Fab[employer]ator: Jordin Rao PhD, Phone: [phone] PERFORMED BY: [place] [address] PATHOLOGIST AIRPLANE PILOT TO ANAYA M.D. Performed By: #### P JOO #### [facility] , Serum or plasma progesterone measurement (mass/volume)Ordered By: Gaby Woods on 12-05-2023 Progesterone [Mass/Vol] 26.5 ng/mL . [facility] Comment on above: Follicular phase 0.1 - 0.9 Luteal phase 1.8 - 23.9 Ovulation phase 0.1 - 12.0 First trimester 11.0 - 44.3 Second trimester 25.4 - 83.3 Third trimester 58.7 - 214.0 Postmenopausal 0.0 - 0.1Performed at: [employer] [id number] Director: Jordin Rao PhD, Phone: [phone] Choriogonadotropin.beta subu nit [Units/volume] in Serum or PlasmaOrdered By: AMBAR Reardon on 12-02-2023 HCG.beta subunit Qn 12.64 m[IU]/mL [facility] Comment on above: Approximate Approxim ate hCG Gestational Age Range (mIU/ml) (weeks)0.2-1 5-50 1-2 50-500 2-3 100-5,000 3-4 500-10,000 4-5 1,000-50,000 5-6 10,000-100,000 6-8 15,000-200,000 8-12 10,000-100,000 HCG,Quantitativeon 4 HCG,Quantitative 12.64 m[iU]/mL Normal [facility] Comment on above: Result Comment: Appr oximate Approximate hCG Gestational Age Range (mIU/ml) (weeks) 0.2-1 5-50 1-2 50-500 2-3 100-5,000 3-4 500-10,000 4-5 1,000-50,000 5-6 10,000-100,000 6-8 15,000-200,000 8-12 10,000-100,000 PERFORMED BY: [place] [address] PATHOLOGIST AIRPLANE PILOT TO ANAYA M.D. Performed By: #### H CGQNT #### [address] Operative Reporton 3 Operative Report [id number]#1.0 0TIFF Normal [facility] [place] hysterosalpingographyon 1 07-02-2022 [place] hysterosalpingography [facility] Main [place] [address] [place] [address] Fluoroscopy Report Signed Patient: Daphney Montesinos MR#: [id number] : 2000 Acct:[id number] Age/Sex: 23 / F ADM Date: 05/01/23 Loc: XD Room: Type: [facility] Attending Dr: Paloma Vazquez DO Copies to: [...] Librado Haney M.D.05/01/2023 11:43 AM Dictation Location: [place] [address] Transcribed By: [facility] 05/01/23 1143 Dictated By: Librado Haney II, MD 05/01/23 1141 Signed By: 05/01/23 1143 Normal [facility] Quick Strepon 03-21-2023 S. pyogenes Org specific cx Ql (Throat) Negative Medialets Other Quick Strep Medialets Other CBC Auto Differentialon 01-14 Basophils (Bld) [#/Vol] 0.00 10*3/uL [place] Basophils/100 WBC (Bld) 0 % 0 - 2 % [place], [place] Differential Type YES [place] Eosinophils (Bld) [#/Vol] 0.20 10*3/uL [place] Eosinophils/100 WBC (Bld) 2 % 0 - 5 % [place] Erythrocyte distribution width (RBC) [Ratio] 12.6 % 12.1 - 15.2 % [place] Hematocrit (Bld) [Volume fraction] 39.8 % 36 - 46 % [place] Hemoglobin (Bld) [Mass/Vol] 13.8 g/dL 12 - 16 g/dL [place] Interpretation and review of laboratory results Abnormal [place], [place] Lymphocytes (Bld) [#/Vol] 1.70 10*3/uL [place] Lymphocytes/100 WBC (Bld) 14 % Low 15 - 40 % [place] MCH (RBC) [Entitic mass] 31.5 pg 26 - 34 pg [place] MCHC (RBC) [Mass/Vol] 34.6 g/dL 31 - 3 7 g/dL [place] MCV (RBC) [Entitic vol] 91.2 fL 80 - 100 fL [place] Monocytes (Bld) [#/Vol] 0.60 10*3/uL [place] Monocytes/100 WBC (Bld) 5 % 4 - 8 % M [place], [place] Platelet mean volume (Bld) [Entitic vol] NOT REPORTED 6 - 12 fL [place], [place] Platelets (Bld) [#/Vol] NOT REPORTED [place] Platelets (Bld) [#/Vol] 287 10*3/uL [place] RBC (Bld) [#/Vol] 4.37 10*6/uL 4 - 5.2 m/uL [place] RBC morphology finding Nom (Bld) NOT REPORTED [place] Segmented neutrophils/100 WBC (Bld) 79 % High 47 - 75 % [place] Segs Absolute 9.50 High [place], [place] WBC (Bld) [#/Vol] 12.0 10*3/uL [place] WBC (Bld) [#/Vol] NOT REPORTED per 100 WBC [place] WBC Morphology NOT REPORTED [place], [place] CBC with Diffon 02-01-2019 Abs. Basophil 0.00 k/uL Normal 0.0-0.2 [facility] Comment on above: Performed By: #### C P, CDP #### [facility] [address] [place] [address] [employer] Fabricator: Jonathan Chisholm MD Abs.Neutrophil (Seg) 9.50 k/uL High 2.5-7.0 [facility] Comment on above: Performed By: #### C P, CDP #### [facility] [address] [place] [address] [employer]ator: Jonathan Chisholm MD Auto Diff Performed YES Normal [facility] Comment on above: Performed By: #### C P, CDP #### [facility] [address] [place] [address] [employer] Fab[employer]ator: Jonathan Chisholm MD Basophils/100 WBC (Bld) 0 % Normal 0-2 [facility] Comment on above: Performed By: #### C P, CDP #### [facility] [address] [place] [address] [employer]ator: Jonathan Chisholm MD Eosinophils (Bld) [#/Vol] 0.20 10*3/uL Normal 0.0-0.4 [facility] Comment on above: Performed By: #### C P, CDP #### [facility] [address] [place] [address] [employer] Fab[employer]ator: Jonathan Chisholm MD Eosinophils/100 WBC (Bld) 2 % Normal 0-5 [facility] Comment on above: Performed By: #### C P, CDP #### [facility] [address] [place] [address] [employer]ator: Jonathan Chisholm MD Erythrocyte distribution width (RBC) [Ratio] 12.6 % Normal 12.1-15.2 [facility] Comment on above: Performed By: #### C P, CDP #### [facility] [address] [place] [address] [employer] Fab[employer]ator: Jonathan Chisholm MD Hematocrit (Bld) [Volume fraction] 39.8 % Normal 36-46 [facility] Comment on above: Performed By: #### C P, CDP #### [facility] [address] [place] [address] [employer] Fab[employer]ator: Jonathan Chisholm MD Hemoglobin (Bld) [Mass/Vol] 13.8 g/dL Normal 12.0-16.0 [facility] Comment on above: Performed By: #### C P, CDP #### [facility] [address] [place] [address] [employer] Fab[employer]ator: Jonathan Chisholm MD Lymphocytes (Bld) [#/Vol] 1.70 10*3/uL Normal 1.2-5.2 [facility] Comment on above: Performed By: #### C P, CDP #### [facility] [address] [place] [address] [employer]ator: Jonathan Chisholm MD Lymphocytes/100 WBC (Bld) 14 % Low 15-40 [facility] Comment on above: Performed By: #### C P, CDP #### [facility] [address] [place] [address] [employer] Fab[employer]ator: Jonathan Chisholm MD MCH (RBC) [Entitic mass] 31.5 pg Normal 26-34 [facility] Comment on above: Performed By: #### C P, CDP #### [facility] [address] [place] [address] [employer] Fab[employer]ator: Jonathan Chisholm MD MCHC (RBC) [Mass/Vol] 34.6 g/dL Normal 31-37 [facility] Comment on above: Performed By: #### C P, CDP #### [facility] [address] [place] [address] [employer] Fab[employer]ator: Jonathan Chisholm MD MCV (RBC) [Entitic vol] 91.2 fL Normal 80-100 [facility] Comment on above: Performed By: #### C P, CDP #### [facility] [address] [place] [address] [employer] Fab[employer]ator: Jonathan Chisholm MD Monocytes (Bld) [#/Vol] 0.60 10*3/uL Normal 0.0-1.0 [facility] Comment on above: Performed By: #### C P, CDP #### [facility] [address] [place] [address] [employer] Fab[employer]ator: Jonathan Chisholm MD Monocytes/100 WBC (Bld) 5 % Normal 4-8 [facility] Comment on above: Performed By: #### C P, CDP #### [facility] [address] [place] [address] [employer] Fab[employer]ator: Jonathan Chisholm MD Neutrophil (Seg) 79 % High 47-75 [facility] Comment on above: Performed By: #### C P, CDP #### [facility] [address] [place] [address] [employer] Fab[employer]ator: Jonathan Chisholm MD Platelets (Bld) [#/Vol] 287 10*3/uL Normal 140-450 [facility] Comment on above: Performed By: #### C P, CDP #### [facility] [address] [place] [address] [employer]ator: Jonathan Chisholm MD RBC (Bld) [#/Vol] 4.37 10*6/uL Normal 4.0-5.2 [facility] Comment on above: Performed By: #### C P, CDP #### [facility] [address] [place] [address] [employer]ator: Jonathan Chisholm MD WBC (Bld) [#/Vol] 12.0 10*3/uL Normal 4.5-13.5 [facility] Comment on above: Performed By: #### C P, CDP #### [facility] [address] [place] [address] [employer] Fab[employer]ator: Jonathan Chisholm MD Abs.Imm.Granulocyte NOT REPORTED Normal 0.00-0.30 [facility] Comment on above: Performed By: #### C P, CDP #### [facility] [address] [place], [place] [id number] [employer]ator: Jonathan Chisholm MD Immature granulocytes (Bld) [#/Vol] NOT REPORTED Normal 0 [facility] Comment on above: Performed By: #### C P, CDP #### [facility] [address] [place], [place] [id number] [employer]ator: Jonathan Chisholm MD NRBC Automated NOT REPORTED Normal [facility] Comment on above: Performed By: #### C P, CDP #### [facility] [address] [place], [place] [id number] [employer]ator: Jonathan Chisholm MD Platelet mean volume (Bld) [Entitic vol] NOT REPORTED Normal 6.0-12.0 [facility] Comment on above: Performed By: #### C P, CDP #### [facility] [address] [place] [address] [employer]ator: Jonathan Chisholm MD Platelets (Bld) [#/Vol] NOT REPORTED Normal [facility] Comment on above: Performed By: #### C P, CDP #### [facility] [address] [place] [address] [employer] Fab[employer]ator: Jonathan Chisholm MD RBC morphology finding Nom (Bld) NOT REPORTED Normal [facility] Comment on above: Performed By: #### C P, CDP #### [facility] [address] [place] [address] [employer] Fabricator: Jonathan Chisholm MD WBC Morphology NOT REPORTED Normal [facility] Comment on above: Performed By: #### C P, CDP #### [facility] [address] [place] [address] [employer] Fab[employer]ator: Jonathan Chisholm MD Comp Metabolic Profon 2018 (cont.) Normal [facility] Comment on above: Result Comment: Aver age GFR for 20-29 years old: 116 mL/min/1.73sq m Chronic Kidney Disease: <60 mL/min/1.73sq m Kidney failure: <15 mL/min/1.73sq m eGFR calculated using average adult body mass. Additional eGFR calculator available at: http://www.[employer].Vivonet/multiple_crcl_2012.htm Performed By: #### C P, CDP #### [facility] [address] [place], [place] [id number] [employer]ator: Jonathan Chisholm MD Albumin [Mass/Vol] 4.1 g/dL Normal 3.5-5.2 [facility] Comment on above: Performed By: #### C P, CDP #### [facility] [address] [place], [place] [id number] [employer]ator: Jonathan Chisholm MD Alkaline Phos 63 U/L Normal 35-104 [facility] Comment on above: Performed By: #### C P, CDP #### [facility] [address] [place], [place] [id number] [employer]ator: Jonathan Chisholm MD ALT [Catalytic activity/Vol] 8 U/L Normal 5-33 [facility] Comment on above: Performed By: #### C P, CDP #### [facility] [address] [place], [place] [id number] [employer]ator: Jonathan Chisholm MD Anion gap [Moles/Vol] 12 mmol/L Normal 9-17 [facility] Comment on above: Performed By: #### C P, CDP #### [facility] [address] [place], [place] [id number] [employer]ator: Jonathan Chisholm MD AST [Catalytic activity/Vol] 13 U/L Normal <32 [facility] Comment on above: Performed By: #### C P, CDP #### [facility] [address] [place], [place] [id number] [employer]ator: Jonathan Chisholm MD Bilirubin Ql (U) 0.40 mg/dL Normal 0.30-1.20 [facility] Comment on above: Performed By: #### C P, CDP #### [facility] [address] [place], [place] [id number] [employer]ator: Jonathan Chisholm MD BUN/CRE Ratio 13 Normal 9-20 [facility] Comment on above: Performed By: #### C P, CDP #### [facility] [address] [place] [address] [employer] Fab[employer]ator: Jonathan Chisholm MD Calcium [Mass/Vol] 9.1 mg/dL Normal 8.6-10.4 [facility] Comment on above: Performed By: #### C P, CDP #### [facility] [address] [place], [place] [id number] [employer]ator: Jonathan Chisholm MD Chloride [Moles/Vol] 103 mmol/L Normal 98-107 [facility] Comment on above: Performed By: #### C P, CDP #### [facility] [address] [place], [place] [id number] [employer]ator: Jonathan Chisholm MD CO2 [Moles/Vol] 24 mmol/L Normal 20-31 [facility] Comment on above: Performed By: #### C P, CDP #### [facility] [facility] [address], [place] [id number] [employer]: Jonathan Chisholm MD Creatinine [Mass/Vol] 0.61 mg/dL Normal 0.50-0.90 [facility] Comment on above: Performed By: #### C P, CDP #### [facility] [address], [place] [id number] [employer]: Jonathan Chisholm MD GFR, Amer >60 Normal >60 [facility] Comment on above: Performed By: #### C P, CDP #### [facility] [address], [place] [id number] [employer]: Jonathan Chisholm MD GFR,non Amer >60 Normal >60 [facility] Comment on above: Performed By: #### C P, CDP #### [facility] [address], [place] [id number] [employer]: Jonathan Chisholm MD Glucose [Mass/Vol] 94 mg/dL Normal 70-99 [facility] Comment on above: Performed By: #### C P, CDP #### [facility] [address], [place] [id number] [employer]: Jonathan Chisholm MD Potassium [Moles/Vol] 3.8 mmol/L Normal 3.7-5.3 [facility] Comment on above: Performed By: #### C P, CDP #### [facility] [address], [place] [id number] [employer]: Jonathan Chisholm MD Protein [Mass/Vol] 7.1 g/dL Normal 6.4-8.3 [facility] Comment on above: Performed By: #### C P, CDP #### [facility] [address], [place] [id number] [employer]: Jonathan Chisholm MD Sodium [Moles/Vol] 139 mmol/L Normal 135-144 [facility] Comment on above: Performed By: #### C P, CDP #### [facility] [address], [place] [id number] [employer]: Jonathan Chisholm MD Urea nitrogen [Mass/Vol] 8 mg/dL Normal 6-20 [facility] Comment on above: Performed By: #### C P, CDP #### [facility] [address] [place] [address] [employer]ator: Jonathan Chisholm MD Albumin/Globulin [Mass ratio] NOT REPORTED Normal 1.0-2.5 [facility] Comment on above: Performed By: #### C P, CDP #### [facility] [address], [place] [id number] [employer]ator: Jonathan Chisholm MD Staging: NOT REPORTED Normal [facility] Comment on above: Performed By: #### C P, CDP #### [facility] [address] [place] [address] [employer]ator: Jonathan Chisholm MD Comprehensive Metabolic Pane markus 02-01-2019 Albumin [Mass/Vol] 4.1 g/dL 3.5 - 5.2 g/dL [place], [place] Albumin/Globulin [Mass ratio] NOT REPORTED [place] ALP [Catalytic activity/Vol] 63 U/L 35 - 104 U/L [place] ALT [Catalytic activity/Vol] 8 U/L 5 - 33 U/L [place] Anion gap [Moles/Vol] 12 mmol/L 9 - 17 mmol/L [place] AST [Catalytic activity/Vol] 13 U/L <32 [place] Bilirubin Ql (U) 0.40 mg/dL 0.3 - 1.2 mg/dL [place] Bun/Cre Ratio 13 [place] Calcium [Mass/Vol] 9.1 mg/dL 8.6 - 10. 4 mg/dL [place] Chloride [Moles/Vol] 103 mmol/L 98 - 10 7 mmol/L [place] CO2 [Moles/Vol] 24 mmol/L 20 - 31 mmol/L [place] Creatinine [Mass/Vol] 0.61 mg/dL 0.5 - 0.9 mg/dL [place] GFR >60 >60 mL/min [place] GFR Non- >60 >60 mL/min [place] GFR/1.73 sq M predicted among non-blacks MDRD (S/P/Bld) [Vol rate/Area] NOT REPORTED [place] GFR/1.73 sq M predicted among non-blacks MDRD (S/P/Bld) [Vol rate/Area] [place] Comment on above: Average GFR for 20-2 9 years old: 116 mL/min/1.73sq m Chronic Kidney Disease: <60 mL/min/1.73sq m Kidney failure: <15 mL/min/1.73sq m eGFR calculated using average adult body mass. Additional eGFR calculator available at: http://www.[employer]/multiple_crcl_2012.htm Glucose [Mass/Vol] 94 mg/dL 70 - 99 mg/dL [place] Potassium [Moles/Vol] 3.8 mmol/L 3.7 - 5.3 mmol/L [place] Protein [Mass/Vol] 7.1 g/dL 6.4 - 8.3 g/dL [place] Sodium [Moles/Vol] 139 mmol/L 135 - 144 mmol/L [place] Urea nitrogen [Mass/Vol] 8 mg/dL 6 - 20 mg/dL [place] HCG, ,Urineon 02-01 Beta HCG ( test) Ql (U) Negative Normal NEG [facility] Comment on above: Performed By: #### U MICAO, CG, UA #### [facility] [address] [place] [address] [employer]ator: Jonathan Chisholm MD Microscopic Urinalysison Amorphous, UA NOT REPORTED None [facility], [place] Bacteria, UA 3+ Abnormal None [facility], [place] Casts UA NOT REPORTED /LPF [place], [place] Crystals UA NOT REPORTED None /HPF [facility], [place] Epithelial Cells UA 20 TO 50 /HPF [place] Interpretation and review of laboratory results Abnormal [facility] [place], [place] Mucus, UA 2+ Abnormal None [place], [place] Other Observations UA NOT REPORTED NOT REQ. M [facility], [place] RBC (U) [#/Vol] 2 TO 5 [facility] [place], [place] Renal Epithelial, Urine NOT REPORTED 0 /HPF [place] Trichomonas, UA NOT REPORTED None [facility], [place] WBC, UA 2 TO 5 0 /HPF [facility], [place] Yeast, UA NOT REPORTED None [place], [place] - [place] Otheron 02-01-2019 Immature granulocytes (Bld) [#/Vol] NOT REPORTED [place], [place] , Urineon 9 Beta HCG ( test) Ql (U) Negative NEGATIVE [place] Urinalysison 02-01-2019 Bilirubin Urine Negative NEGATIVE [place], [place] Color, UA YELLOW YELLOW [place] Glucose, Ur Negative NEGATIVE [place] Interpretation and review of laboratory results Abnormal [place], [place] Ketones Ql (U) TRACE Abnormal NEGATIVE [place] Leukocyte esterase Test strip Ql (U) Negative NEGATIVE [place] Nitrite, Urine Negative NEGATIVE [place], [place] pH, UA 6.0 [place] Protein (U) [Mass/Vol] 1+ Abnormal NEGATIVE [place], [place] Specific Seffner, UA 1.020 [place], [place] Turbidity UA CLEAR CLEAR [place] Urinalysis Comments [place] Urine Hgb 3+ Abnormal NEGATIVE [place] Urobilinogen, Urine Normal Normal [place] Urinalysis, Routineon 2018 Acetoacetic Acid,Ur TRACE Abnormal NEG [facility] Comment on above: Performed By: #### U MICA, [facility], UA #### [facility] [address] [place] [address] [employer]ator: Jonathan Chisholm MD Bilirubin, SemiQt,Ur Negative Normal NEG [facility] Comment on above: Performed By: #### U MICA, [facility], UA #### [facility] [address] [place] [address] [employer]ator: Jonathan Chisholm MD Color (U) YELLOW Normal L [facility] Comment on above: Performed By: #### U MICAO, [facility], UA #### [facility] [address] [place] [address] [employer] Fab[employer]ator: Jonathan Chisholm MD Comment Normal [facility] Comment on above: Performed By: #### U MICAO, [facility], UA #### [facility] [address] [place] [address] [employer] Fab[employer]ator: Jonathan Chisholm MD Glucose Ql (U) Negative Normal NEG [facility] Comment on above: Performed By: #### U MICAO, [facility], UA #### [facility] [address] [place] [address] [employer] Fab[employer]ator: Jonathan Chisholm MD Hemoglobin, Ur 3+ Abnormal NEG [facility] Comment on above: Performed By: #### U MICAO, [facility], UA #### [facility] [address] [place] [address] [employer] Fab[employer]ator: Jonathan Chisholm MD Leukocyte esterase Test strip Ql (U) Negative Normal NEG [facility] Comment on above: Performed By: #### U MICAO, [facility], UA #### [facility] [address] [place] [address] [employer] Fab[employer]ator: Jonathan Chisholm MD Nitrite,Ur Negative Normal NEG [facility] Comment on above: Performed By: #### U MICAO, [facility], UA #### [facility] [address] [place] [address] [employer] Fab[employer]ator: Jonathan Chisholm MD pH (U) 6.0 [pH] Normal 5.0-8.0 [facility] Comment on above: Performed By: #### U MICAO, [facility], UA #### [facility] [address] [place] [address] [employer] Fab[employer]ator: Jonathan Chisholm MD Protein Ql (U) 1+ Abnormal NEG [facility] Comment on above: Performed By: #### [facility], [facility] #### [facility] [address] [place] [address] [employer] Fab[employer]ator: Jonathan Chisholm MD Specific gravity (U) [Rel density] 1.020 Normal 1.005-1.03 0 [facility] Comment on above: Performed By: #### U PREMA [facility], UA #### [facility] [address], [place] [id number] [employer] Fab[employer]ator: Jonathan Chisholm MD Turbidity CLEAR Normal CLEAR [facility] Comment on above: Performed By: #### U PREMA [facility], UA #### [facility] [address] [place] [address] [employer] Fab[employer]ator: Jonathan Chisholm MD Urobilinogen,Ur Normal Normal NORM [facility] Comment on above: Performed By: #### U PREMA [facility], UA #### [facility] [address] [place] [address] [employer] Fabricator: Jonathan Chisholm MD Urinalysis,Microon 9 ----- Normal [facility] Comment on above: Performed By: #### U PREMA [facility], UA #### [facility] [address], [place] [phone] [employer] Fab[employer]ator: Jonathan Chisholm MD Bacteria LM.HPF (Urine sed) [#/Area] 3+ Abnormal [facility] Comment on above: Performed By: #### U PREMA [facility], UA #### [facility] [address], [place] [phone] [employer]ator: Jonathan Chisholm MD Epithelial cells LM.HPF (Urine sed) [#/Area] 20 TO 50 Normal [facility] Comment on above: Performed By: #### U PREMA [facility], UA #### [facility] [address], [place] [phone] [employer] Fab[employer]ator: Jonathan Chisholm MD Mucus Strands 2+ Abnormal [facility] Comment on above: Performed By: #### [facility] #### [facility] [address] [place] [address] [employer]ator: Jonathan Chisholm MD RBC (U) [#/Vol] 2 TO 5 Normal 0-2 [facility] Comment on above: Performed By: #### U MICAO, [facility] #### [facility] [address] [place] [address] [employer] Fab[employer]ator: Jonathan Chisholm MD WBC (U) [#/Vol] 2 TO 5 Normal 0 [facility] Comment on above: Performed By: #### U MICAO, [facility], UA #### [facility] [address] [place] [address] [employer] Fab[employer]ator: Jonathan Chisholm MD Amorphous sediment LM Ql (Urine sed) NOT REPORTED Normal NONE [facility] Comment on above: Performed By: #### U MICAO, [facility], UA #### [facility] [address], [place] [id number] [employer] Fab[employer]ator: Jonathan Chisholm MD Casts LM.LPF (Urine sed) [#/Area] NOT REPORTED Normal [facility] Comment on above: Performed By: #### U MICAO, [facility] #### [facility] [address] [place] [address] [employer] Fab[employer]ator: Jonathan Chisholm MD Crystals LM Nom (Urine sed) NOT REPORTED Normal [facility] Comment on above: Performed By: #### U MICAO, [facility] #### [facility] [address] [place] [address] T[employer] Fabricator: Jonathan Chisholm MD Epithelial, Renal NOT REPORTED Normal 0 [facility] Comment on above: Performed By: #### U MICAO, CG, UA #### [facility] [address], [place] [id number] [employer] Fabricator: Jonathan Chisholm MD Other Observations NOT REPORTED Normal NREQ [facility] Comment on above: Performed By: #### U JAZMINENeville, [facility], UA #### [facility] [address], [place] [id number] [employer] Fab[employer]ator: Jonathan Chisholm MD Trichomonas NOT REPORTED Normal NONE [facility] Comment on above: Performed By: #### U JAZMINENeville, [facility], UA #### [facility] [address], [place] [id number] T[employer] Fab[employer]ator: Jonathan Chisholm MD Yeast LM Ql (Urine sed) NOT REPORTED Normal NONE [facility] Comment on above: Performed By: #### U JAZMINENeville, [facility], UA #### [facility] [address], [place] [phone] [employer]ator: Jonathan Chisholm MD Vital Signs Date Time Vital Sign Value Performing Clinician Facility 04-10-2024 11:05-0500 Body mass index (BMI) [Ratio] 27.6 kg/m2 Gaby Peggy DO Work Phone: [facility] 04-10-2024 11:05-0500 Body weight 77.56 kg Gaby Peggy DO Work Phone: [facility] 04-10-2024 11:05-0500 Diastolic blood pressure 72 mm[Hg] Gaby Peggy DO Work Phone: [facility] 04-10-2024 11:05-0500 Systolic blood pressure 114 mm[Hg] Gaby Peggy DO Work Phone: [facility] 2024 13:52-0400 Body height 167.6 cm Gaby Peggy DO Work Phone: [facility] 2024 13:52-0400 Body mass index (BMI) [Ratio] 26.6 kg/m2 Gaby Peggy DO Work Phone: [facility] 2024 13:52-0400 Body weight 74.75 kg Gaby Peggy DO Work Phone: [facility] 2024 13:52-0400 Diastolic blood pressure 56 mm[Hg] Gaby Altamiranoo DO Work Phone: [facility] 2024 13:52-0400 Systolic blood pressure 100 mm[Hg] Gaby Altamiranoo DO Work Phone: [facility] 03-21-2023 18:10-0500 Body height 167.64 cm Rina Anton Other [employer] Other 03-21-2023 18:10-0500 Body mass index (BMI) [Ratio] 26.95 kg/m2 Rina Anton Other [employer] Other 03-21-2023 18:10-0500 Body temperature 98.9 [degF] Rina Anton Other [employer] Other 03-21-2023 18:10-0500 Body weight 75.75 kg Rina Anton Other [employer] Other 03-21-2023 18:10-0500 Respiratory rate 18 /min Rina Anton Other [employer] Other 03-21-2023 18:10-0500 SaO2% (BldA) [Mass fraction] 97 % Rina Anton Other [employer] Other 02-01-2019 06:41-0400 BP Diastolic 64 mm[Hg] [facility] [place] 02-01-2019 06:41-0400 BP Systolic 107 mm[Hg] [facility] 02-01-2019 06:41-0400 Pulse (Heart Rate) 64 /min [facility] [employer] [place] 02-01-2019 04:30-0400 Body Temperature 98.01 [degF] Keyla Leyva [employer] [facility], [place] 02-01-2019 04:30-0400 Body weight 58.92 kg [facility] [place] 02-01-2019 04:30-0400 Pulse Oximetry 100 % [facility] [place] [facility] [place] 02-01-2019 04:30-0400 Respiratory Rate 18 /min [facility] [place] Encounters Encounter Date Encounter Type Care Provider Facility Start: 08-22-2024 End: 08-22-2024 Clinisync Result Encounter Gaby Peggy DO Work Phone: [facility] Unsolicited Start: 08-22-2024 End: 08-22-2024 Clinisync Result Encounter Gaby Peggy DO Work Phone: [facility] Unsolicited Start: 08-20-2024 End: 08-20-2024 Clinisync Result Encounter Gaby Peggy DO Work Phone: [facility] Unsolicited Start: 08-20-2024 End: 08-20-2024 Clinisync Result Encounter Gaby Peggy DO Work Phone: [facility] Unsolicited Start: 08-17-2024 End: 08-17-2024 Clinisync Result Encounter Gaby Peggy DO Work Phone: [facility] Unsolicited Start: 08-17-2024 End: 08-17-2024 Clinisync Result Encounter Gaby Peggy DO Work Phone: [facility] Unsolicited Start: 08-15-2024 End: 08-15-2024 Clinisync Result Encounter Gaby Peggy DO Work Phone: [facility] Unsolicited Start: 08-15-2024 End: 08-15-2024 Clinisync Result Encounter Gaby Peggy DO Work Phone: [facility] Unsolicited Start: 06-14-2024 End: 06-15-2024 Clinisync Result Encounter Gaby Peggy DO Work Phone: [facility] Unsolicited Start: 06-14-2024 End: 06-15-2024 Clinisync Result Encounter Gaby Peggy DO Work [...] encounter procedure MD Zachary Mayes Work Phone: [facility] [place] Work Phone: Start: 01-05-2024 End: 01-05-2024 ambulatory MD Zachary Mayes Work Phone: [facility] Work Phone: Start: 12-28-2023 End: 12-28-2023 Patient encounter procedure MD Zachary Mayes Work Phone: [facility] [place] Work Phone: Start: 12-28-2023 End: 12-28-2023 ambulatory MD Zachary Mayes Work Phone: [facility] Work Phone: Start: 12-22-2023 End: 12-22-2023 Patient encounter procedure MD Zachary Mayes Work Phone: [facility] [place] Work Phone: Start: 12-22-2023 End: 12-22-2023 ambulatory MD Zachary Mayes Work Phone: [facility] Work Phone: Start: 12-21-2023 End: 12-21-2023 ambulatory GABY PEGGY Not Available Start: 12-20-2023 End: 12-20-2023 Patient encounter procedure MD Zachary Mayes Work Phone: [facility] [place] Work Phone: Start: 12-20-2023 End: 12-20-2023 ambulatory MD Zachary Mayes Work Phone: [facility] Work Phone: Start: 12-09-2023 End: 12-09-2023 Patient encounter procedure MD Zachary Mayes Work Phone: [facility] [place] Work Phone: Start: 12-09-2023 End: 12-09-2023 ambulatory MD Zachary Mayes Work Phone: [facility] Work Phone: Start: 12-07-2023 End: 12-07-2023 Patient encounter procedure MD Zachary Mayes Work Phone: [facility] [place] Work Phone: Start: 12-07-2023 End: 12-07-2023 ambulatory MD Zachary Mayes Work Phone: [facility] Work Phone: Start: 12-05-2023 End: 12-05-2023 Patient encounter procedure MD Zachary Mayes Work Phone: [facility] [place] Work Phone: Start: 12-05-2023 End: 12-05-2023 ambulatory MD Zachary Mayes Work Phone: [facility] Work Phone: Start: 12-02-2023 End: 12-02-2023 ambulatory MD Zachary Mayes Work Phone: [facility] Work Phone: Start: 12-02-2023 End: 12-02-2023 Patient encounter procedure MD Zachary Mayes Work Phone: [facility] [place] Work Phone: Start: 05-02-2023 End: 05-02-2023 ambulatory PALOMA VAZQUEZ Not Available Start: 05-01-2023 End: 05-01-2023 Admission to same day surgery center MD Zachary Mayes Work Phone: [facility] [place] Work Phone: Start: 05-01-2023 End: 05-01-2023 ambulatory MD Zachary Mayes Work Phone: [facility] Work Phone: Start: 03-21-2023 End: 03-21-2023 ambulatory Rina Anton Other [employer] Other Start: 03-21-2023 Office outpatient ne w 30 minutes Rina Anton [facility] Start: 02-01-2019 End: 02-01-2019 Emergency department patient visit [facility] Start: 02-01-2019 End: 02-01-2019 Emergency department patient visit [facility] Work Phone: [facility] ED Comment on above: Abdominal pain, righ t lower quadrant (Primary Dx); History of ovarian cyst Procedures Date Procedure Procedure Detail Performing Clinician Start: 08-22-2024 [facility] PREG QUANT HCG Core y Peggy DO Work Phone: Start: 08-20-2024 [facility] PREG QUANT HCG Core y Peggy DO Work Phone: Start: 08-17-2024 [facility] PREG QUANT HCG Core y Peggy DO Work Phone: Start: 08-15-2024 [facility] PREG QUANT HCG Core y Peggy DO Work Phone: Start: 06-14-2024 ALL PROGESTERONE Gaby Peggy DO Work Phone: Start: 04-18-2024 ALL PROGESTERONE Gaby Peggy DO [...] Hormone disorder Expected: 04/10/2024 (Approximate), Expires: 04/10/2025 [facility] Work Phone: Comment on above: Expected: 04/10/2024 (Approximate), Expires: 04/10/2025 Start: 04-10-2024 End: 04-10-2024 Patient encounter procedure 04/10/2024 11:10 AM EST Office Visit [facility] [address] [place] [id number] Gaby oWods, DO [address] [place], [place] [id number] Arrived [facility] Comment on above: Arrived Start: 2024 End: 2024 Patient encounter procedure 2024 1:20 PM EDT Office Visit [facility] [address] [place] [address] Gaby Woods, DO [address] [place], [place] [id number] [facility] Start: 01-13-2019 Influenza vaccination Flu vaccine (# 1) [place], [place] Progesterone [Mass/volume] in Serum or Plasma [facility] Payers Date Payer Category Payer [facility] [id number] 2024 Unknown [id number] 2023 Self-pay [id number] 2023 Private Health Insurance [id number] 2023 Private Health Insurance [id number] 2014 Unknown [id number] 2014 Unknown BCBS [place] P PO xxxxxxxxxxxx 2014-Present [address] [place] [address] xxxxxxxxxxxx [id number] 1998 Unknown [id number] .174 1998 Unknown [id number] [id number] .1259 1998 Unknown [id number] 2.16.840.1.871969.3.579.2 .1259 1998 Unknown [id number] [id number] .1259 1998 Unknown [id number] [id number] .1259 1998 Unknown [id number] [id number] .1259 Unknown [facility] [id number] Unknown [place]/BS [id number] Unknown [id number] .531 Unknown [id number] 2.16.840.1.395800.3.579.2 .531 Unknown [id number] 2.16.840.1.030619.3.579.2 .531 Unknown [id number] [id number] .531 Unknown [id number] [id number] .531 Unknown [id number] 2.16.840.1.323492.3.579.2 .531 Unknown [id number] 2..[id number] .531 Unknown [id number] 2..[id number] .531 Unknown [id number] 2..[id number] .531 Social History Date Type Detail Facility Start: 02-01-2019 End: 04-28-2023 Tobacco smoking status NHIS Never smoker [facility] Start: 02-01-2019 End: 04-28-2023 Alcohol intake Not [facility] Start: 2000 Sex Assigned At [facility] on file [facility] Start: 1998 Sex Assigned At Female F [facility] Start: 12-21-2023 End: 2024 Alcoholic beverage intake Lifetime non-drinker (finding) [facility] Start: 04-28-2023 History of Social function [facility] Start: 04-28-2023 Alcohol Comment Caffeine intak e: 3-4 cups per day [facility] History of Present illness Narrative 04-10-2024 Lisapeter Prasad LPN - 04/10/2024 11:10 AM EST Note Date & Type Note Facility 04-10-2024 History of Presen t illness Narrative Reason for Appointment: Patient ID: Daphney Montesinos is a 24 y.o. female who presents for Infertility Patient presents today for Fertility Follow Up appointment. MEDICATIONS Current Outpatient Medications Medication Instructions aspirin 81 MG oral suspension Vit w/Lu-Fvgramnuq-YX (PNV PO) ALLERGIES Allergies Allergen Reactions Cephalexin [...] nursing note reviewed. Exam conducted with a head school custodian present. Vitals: Estimated body mass index is [...] Pt voiced understanding. Discussed LAST referral towards [facility]. Documented by Lisa Prasad LPN on behalf [...] Instructions aspirin 81 MG oral suspension Vit w/Eo-Eidwydgib-DG (PNV PO) ALLERGIES Allergies Allergen Reactions Cephalexin [...] nursing note reviewed. Exam conducted with a head school custodian present. Vitals: Estimated body mass index is [...] Gaby Woods DO documented in this encounter [facility] Evaluation note 03-21-2023 Note Date & Type [...] treatment plan. 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 * Abdominal Pain (Spanish) * Appendicitis (Spanish) documented in this encounter Assessments Diagnosis Abdominal [...] DATE CREATED AUTHOR AUTHOR'S ORGANIZ ATION 05/05/2023 [facility] DATE CREATED AUTHOR AUTHOR'S ORGANIZ ATION 01/19/2024 [facility] DATE CREATED AUTHOR AUTHOR'S ORGANIZ ATION 04/13/2024 [facility] Specialists EPIC Reason for Visit (unrecogniz [...] 2023 End: December 07, 2023 Gaby Woods DO Attending Provider Active [...] 20, 2023 End: December 20, 2023 Gaby Altamiranoo , DO Attending Provider Active Start : December 20, 2023 End: December 20, 2023 Team Status: Inactive Member Role Status Dates Zachary Mayes MD Primary Care Provider Active Start: December 22, 2023 End: December 22, 2023 Gaby Woods , DO Attending Provider Active Start : December 22, 2023 End: December 22, 2023 Team Status: Inactive Member Role Status Dates Zachary Mayes MD Primary Care Provider Active Start: December 28, 2023 End: December 28, 2023 Gaby Woods , DO Attending Provider Active Start : December 28, 2023 End: December 28, 2023 Team Status: Inactive Member Role Status Dates Zachary Mayes MD Primary Care Provider Active Start: January 05, 2024 End: January 05, 2024 Gaby Woods , Attending Provider Active Start : January 05, 2024 End: January 05, 2024 Foundation Relations Director Relationship Specialty Start Date End Date Alberto Mayes MD [address] [place] [phone] PCP - General 05/02/23 Paloma Vazquez DO [address] [facility] [address] [place] [address] Referring Physician Obstetrics and Gynecology 04/25/23 Foundation Relations Director Relationship Specialty Start Date End Date Alberto Mayes MD [address] [place] [id number] PCP - General 05/02/23 Paloma Vazquez DO [address] [place] [address] Referring Physician Obstetrics and Gynecology 04/25/23 Foundation Relations Director Relationship Specialty Start Date End Date Alberto Mayes MD [address] [place] [address] PCP - General 05/02/23 Paloma Vazquez DO [address] [place] [address] Referring Physician Obstetrics and Gynecology 04/25/23 Foundation Relations Director Relationship Specialty Start Date End Date Alberto Mayes MD [address] [place] [address] PCP General 05/02/23 Paloma Vazquez DO [address] [facility] [address] [place] [address] Referring Physician Obstetrics and Gynecology 04/25/23 Foundation Relations Director Relationship Specialty Start Date End Date Alberto Mayes MD [address] [place] [address] [facility] General 05/02/23 Paloma Vazquez DO [address] [facility] [address] [place] [address] Referring Physician Obstetrics and Gynecology 04/25/23 Goals [...] BE BASED ON THE PRIMARY CLINICAL RECORDS. [facility], [facility]. provides no warranty or guarantee of the accuracy or completeness of information in this document.
[2024-08-24 07:47] LABS: HCG Quantitative 964 mIU/mL
[2024-08-25 09:08] LABS: Progesterone 55.2 ng/mL (.)
== END 2024-08-24 06:55 | disposition home or self-care (01) ==
PROVIDERS: PCP Family Medicine; Visit Provider Obstetrics & Gynecology
DX: Z87.59 Personal history of other complications of pregnancy, childbirth and the puerperium (principal); N92.6 Irregular menstruation, unspecified
CPT/HCPCS: 36415; 84144; 84702

== ENCOUNTER 2024-09-24 10:14 | Outpatient (OUT) | payer BC, SELFPAY ==
[2024-09-24 10:49] LABS: Estimated Average Glucose 100 mg/dL; Glycohemoglobin A1C 5.1 % (4.5-6.2)
[2024-09-24 11:10] LABS: Basophils Percent Auto 0.4 % (0.2-2.0); Eosinophils Absolute Auto 0.1 10^3/uL (0.0-0.7); Eosinophils Percent Auto 0.8 % (0.9-7.0); Hematocrit 38.3 % (36.0-48.0); Hemoglobin 13.5 g/dL (12.0-16.0); Immature Granulocytes Abs Auto 0.04 10^3/uL (0.00-0.03); Immature Granulocytes Pct Auto 0.4 % (0.0-0.5); Lymphocytes Absolute Auto 1.8 10^3/uL (1.2-3.8); Lymphocytes Percent Auto 19.3 % (20.5-60.0); Mean Corpuscular HGB Conc 35.2 g/dL (29.9-35.2); Mean Corpuscular Hemoglobin 31.2 pg (26.7-34.0); Mean Corpuscular Volume 88.5 fL (81.0-99.0); Mean Platelet Volume 10.1 fL (9.5-13.5); Monocytes Absolute Auto 0.5 10^3/uL (0.3-0.8); Monocytes Percent Auto 5.2 % (1.7-12.0); Neutrophils Absolute Auto 6.8 10^3/uL (1.4-6.5); Neutrophils Percent Auto 73.9 % (43.0-75.0); Platelet Count 281 10^3/uL (150-450); Red Blood Count 4.33 10^6/uL (4.20-5.40); Red Cell Distribution Width 11.8 % (11.0-15.0); White Blood Count 9.2 10^3/uL (4.0-11.0)
[2024-09-24 11:44] LABS: Amphetamine Screen Urine NEGATIVE (NEGATIVE); Barbiturates Screen Urine NEGATIVE (NEGATIVE); Benzodiazepines Screen Urine NEGATIVE (NEGATIVE); Buprenorphine Screen Urine NEGATIVE (NEGATIVE); Cannabinoid Screen Urine NEGATIVE (NEGATIVE); Cocaine Screen Urine NEGATIVE (NEGATIVE); Methadone Screen Urine NEGATIVE (NEGATIVE); Methamphetamines Screen Urine NEGATIVE (NEGATIVE); Opiate Screen Urine NEGATIVE (NEGATIVE); Oxycodone Screen Urine NEGATIVE (NEGATIVE); Phencyclidine Screen Urine NEGATIVE (NEGATIVE); Tricyclic Antidepressant Urine NEGATIVE (NEGATIVE)
[2024-09-24 14:09] LABS: BOX Test Reference Lab unity; BOX Test Sent Out unity
[2024-09-25 05:07] LABS: HIV Ab/p24 Ag Screen Non Reactive (Non Reactive)
[2024-09-25 06:07] LABS: HBsAg Screen Negative (Negative); HCV Ab Non Reactive (Non Reactive)
[2024-09-25 08:09] LABS: Rubella Antibodies, IgG 5.37 index (Immune >0.99)
[2024-09-25 12:10] LABS: Rapid Plasma Reagin, Quant Non Reactive titer (NonRea<1:1)
== END 2024-09-24 10:15 | disposition home or self-care (01) ==
LOC: LAB 10:15
PROVIDERS: PCP Family Medicine; Visit Provider Obstetrics & Gynecology
DX: Z34.01 Encounter for supervision of normal first pregnancy, first trimester (principal); Z36.0 Encounter for antenatal screening for chromosomal anomalies; N92.6 Irregular menstruation, unspecified
CPT/HCPCS: 36415; 80307; 83036; 85025; 86592; 86762; 86803; 86850; 86900; 86901; 87086; 87340; 87389

== ENCOUNTER 2024-11-05 16:48 | Outpatient (REF) | payer BC, SELFPAY ==
--- OUTSIDE RECORDS SUMMARY | 2015-04-03 10:28 | XMS_ITS | Continuity of Care Document ---
Author Organization [facility] Address [address] [place] [address] Phone Care Team Providers Care Mash Tub Cooker Name Role Phone Jonathan Herrera Unavailable Unavailable Procedures Procedure Date TB INTRADERMAL TEST TB INTRADERMAL TEST Advance Directives Directive Yes / No Effective Date File Name No Information Encounters Encounter Description Practice Location Reason(s) For Visit Diagnoses Date Provider Providers Copied on Encounter [facility], [address] [place] [address], [id number], tel:[phone] [facility] No Information Beronica Lopez. [address] [place], [place], [id number], [place]. tel:[phone] [facility], [address] [place] [address], [id number], [place] tel:[phone] [facility] No Information Beronica Lopez. [address] [place], [place], [id number], [place]. tel:[phone] [facility], [address] [place], [place], [id number], [place] tel:[phone] [facility] No Information Beronica Lopez. [address] [place], [place], [id number], [place]. tel:[phone] Family History Family Member Type Diagnosis Age [...]
--- OUTSIDE RECORDS SUMMARY | 2024-11-05 13:40 | XMS_ITS | Encounter Summary ---
Author Organization [facility] Address [address] [place] [address] Care Team Providers Care Console Assembler Name Role Phone Paloma Vazquez DO Unavailable [phone] Alberto Mayes MD Primary Care Provider Encounter Details Date Type Department Care Team (Latest Contact Info) Description 11/05/2024 1:40 PM EDT Routine [facility] OB [address] [place] [address] Jack Woods DO [address] [facility] [address] [place], [place] [id number] Well woman exam with routine gynecological exam; Second trimester ([facility]); 15 weeks gestation of ([facility]); Vaginal discharge; STD exposure Social History Tobacco Use Types Packs/Day Years Used Date Smoking Tobacco: Never Alcohol Use Standard Drinks/Week Comments Never 0 (1 standard drink = 0.6 oz pure alcohol) Caffeine intake: 3-4 cups per day Estimated Date of Delivery Comme nts Yes 04/29/2025 Based on last me nstrual period of 07/23/2024 Sex and Gender Information Value Date Recorded Sex Assigned at Not on file Legal Sex Female 7:33 PM EDT Gender Identity Not on file Sexual Orientation Not on file documented as of this encounter Last Filed Vital Signs Vital Sign Reading Time Taken Comments Blood Pressure 106/68 11/05/2024 2:10 PM EDT Pulse - - Temperature - - Respiratory Rate - - Oxygen Saturation - - Inhaled Oxygen Concentration - - Weight 75.9 kg (167 lb 6.4 oz) 11/05/2024 2:10 P M EDT Height - - Body Mass Index 27.02 2024 1:52 PM EDT documented in this encounter Plan of Treatment Upcoming Encounters Date Type Department Care Team (Late st Contact Info) Description 12/03/2024 1:30 PM EDT Routine [facility] BCP OB [address] [facility] [place] [address] Jayla Leiva PA [address] [place] [address] Scheduled Orders Name Type Priority Associated Diagnoses Orde r Schedule SURESWAB(R) ADVANCED VAGINITIS PLUS, TMA Pathology and Cytology Routine Vaginal discharge Ordered: 11/05/2024 CHLAMYDIA TRACHOMATIS (GENITO/STI) Lab Routine STD exposure Ordered: 11/05/2024 Neisseria gonorrhea DNA probe, direct Lab Routine STD exposure Ordered: 11/05/2024 Alpha fetoprotein, maternal Lab Routine Second trimester ([facility]) 15 weeks gestation of ([facility]) Expected: 11/05/2024 (Approximate), Expires: 05/07/2025 Pap Smear Pathology and Cytology Routine Well woman exam with routine gynecological exam Ordered: 11/05/2024 documented as of this encounter Procedures Procedure Name Priority Date/Time Associated Diagnosis Comments POCT URINALYSIS DIPSTICK Routine 11/05/2024 2:15 PM EDT Second trimester ([facility]) 15 weeks gestation of ([facility]) documented in this encounter Results * POCT urinalysis dipstick manually resulted (11/05/2024 2:15 PM EDT) Color, UA Yellow Clarity, UA Clear Glucose, UA Negative Negative - 2000(110) ++++ mg/dL Bilirubin, UA Negative Negative - 4(70) +++ mg/dL Ketones, UA Negative Negative - 160(16) ++++ mg/dL Spec Grav, UA 1.020 1 - 1.03 Blood, UA Negative Negative - 50 Clarke/mcL pH, UA 5.5 5 - 9 Protein, UA Negative Negative - 2000(20) ++++ mg/dL Urobilinogen, UA 1.0 0.2 - 12 mg/dL Leukocytes, UA Negative Negative - 500+++ Kamaljit/mcL Nitrite, UA Negative Negative - Positive Urine 11/05/2024 2:15 PM EDT Jack Woods DO POINT OF CARE TEST ENTER/EDIT OR DERABLES Final Result documented in this encounter Visit Diagnoses Diagnosis Well woman exam with routine gynecological exam Routine gynecological examination Second trimester ([facility]) state, incidental 15 weeks gestation of ([facility]) Vaginal discharge Leukorrhea, not specified as infective STD exposure documented in this encounter Care Teams Console Assembler Relationship Specialty Start Date End Date Alberto Mayes MD [address] [place] [address] PCP - General 05/02/23 Paloma Vazquez DO [address] [place] [address] Referring Physician Obstetrics and Gynecology 04/25/23 documented as of this encounter
--- OUTSIDE RECORDS SUMMARY | 2024-11-12 08:33 | XMS_ITS | Encounter Summary ---
Author Organization [facility] Address [id number] [address] [place] [address] Care Team Providers Care Mobile Application Tester Name Role Phone Unavailable Primary Care Provider Unavailabl e Reason for Visit * Diagnostic Imaging (Routine) - Pending Review Specialty Diagnoses / Procedures Referred By Contac t Referred To Contact Maternal and Medicine Diagnoses Encounter for anatomic survey Procedures US MFM with or without consult US MFM with or without consult Samantha Peres MD [address] [facility] 1st [place] [address] Phone: tel: fax: Maternal- Medicine at [facility] [address] [place] [address] Phone: tel: fax: Referral ID Status Reason Start Date Expiration Date V isits Requested Visits Authorized [id number] Pending Review 09/27/2024 09/27/2025 1 1 Encounter Details Date Type Department Care Team (Latest Contact Info) Description 11/12/2024 8:33 AM EDT - 11/12/2024 11:59 PM EDT Hospital Encounter [facility] - MFM US Imaging [address] [place] [phone] Encounter for anatomic survey Discharge Disposition: Home Social History Tobacco Use Types Packs/Day Years Used Date Smoking Tobacco: Never Alcohol Use Standard Drinks/Week Comments Never 0 (1 standard drink = 0.6 oz pur e alcohol) Hunger Screening Answer Date Recorded Within the past 12 months we worried whether our food would run out before we got money to buy more. Never True 11/12/2024 Within the past 12 months th e food we bought just didn't last and we didn't have money to get more. Never True 11/12/2024 Estimated Date of Delivery Comme nts Yes 04/29/2025 Based on Ultraso und Sex and Gender Information Value Date Recorded Sex Assigned at Not on file Legal Sex Female 2:00 PM EDT Gender Identity Not on file Sexual Orientation Not on file documented as of this encounter Medications at Time of Discharge aspirin 81 mg chewable tablet Chew 1 tablet (81 mg total) and swallow in the morning. omeprazole (PriLOSEC) 20 mg capsule Take 1 capsule (20 mg total) by mouth in the morning. ondansetron (ZOFRAN) 4 mg tablet Take 1 tablet (4 mg total) by mouth every 8 (eight) hours as needed for nausea or vomiting. PNV 77-oykc-qqtidwjdu ate-dha 29 mg iron-1 mg -350 mg comb pack,tablet DR,capsule DR Take 1 tablet by mouth in the morning. documented as of this encounter Plan of Treatment Upcoming Encounters Date Type Department Care Team (Late st Contact Info) Description 12/10/2024 1:30 PM EDT Appointment Maternal Medicine [place] [address] [facility] [address] [place] [address] documented as of this encounter Procedures Procedure Name Priority Date/Time Associated Diagnosis Comments [facility] COMPREHENSIVE ANATOMIC SURVEY Routine 11/12/2024 10:10 AM EDT Encounter for anatomic survey documented in this encounter Results * [facility] COMPREHENSIVE ANATOMIC SURVEY (11/12/2024 10:10 AM EDT) Anatomical Region Laterality Modality 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 11/12/2024 8:40 AM EDT Narrative 11/12/2024 11:20 AM EDT NAME: SERVANDO LANGLEY : 2000 SEX: F Accession Number: [id number] ORDERING PHYSICIAN: SAMANTHA PERES REFERRING PHYSICIAN: GABY FOX Coding ----- --------- Procedures [id number]: Ultrasound, uterus, real time with image documentation, and maternal evaluation plus detailed anatomic examination, transabdominal approach;single or first gestation 47406: Transvaginal Ultrasound (OB) Indication ----- --------- Screening for Anatomic Survey, Uterine fibroid affecting , Supervision of high risk (bilateral complex ovaries), Screening for cervical length. History ----- --------- OB History 3. Para 0 [id number] Current ----- --------- Cell free DNA Low Risk analysis Maternal Assessment ----- --------- Physical Exam Height 168 cm, 5 ft 6 in. Weight 77 kg, 170 lb. Initial weight 77 kg, 170 lb. BMI 27.44 kg/m . Initial BMI 27.44 kg/m . Weight gain 0 kg, 0 lb Method ----- --------- Transabdominal ultrasound examination. View: Suboptimal view: limited by early gestational age and position. ----- --------- Rodriguez . Number of fetuses: 1 Dating ----- --------- LMP on: 07/23/2024 GA by LMP 16 w + 0 d PORFIRIO by LMP: 04/29/2025 Previous Ultrasound on: 09/19/2024 Type of prior assessment: GA GA at prior assessment date 8 w + 2 d GA by previous U/S 16 w + 0 d PORFIRIO by previous Ultrasound: 04/29/2025 Ultrasound examination on: 11/12/2024 GA by U/S based upon: AC, BPD, Femur, HC GA by U/S 16 w + 3 d PORFIRIO by U/S: 04/26/2025 Assigned: based on the LMP, selected on 11/12/2024 Assigned GA 16 w + 0 d Assigned PORFIRIO: 04/29/2025 General Evaluation ----- --------- Cardiac activity Present. FHR 144 bpm. movements: visualized. Presentation: variable Placenta: Placental site: posterior, away from cervical os Umbilical cord: Cord vessels: 3 vessel cord. Insertion site: normal insertion Amniotic fluid: Amount of AF: normal amount. MVP 3.6 cm Biometry ----- --------- Standard BPD 33.4 mm 16w 3d 64% Hadlock OFD 43.9 mm 17w 0d 82% Nuno HC 123.8 mm 16w 2d 48% Hadlock Cerebellum tr 16.0 mm 16w 3d 50% Hill Nuchal fold 2.7 mm AC 114.0 mm 17w 1d 87% Hadlock Femur 18.7 mm 15w 4d 27% Hadlock Humerus 20.5 mm 16w 0d 58% Nuno HC / AC 1.09 2% Hadlock EFW 154 g 67% Hadlock EFW (lb) 0 lb EFW (oz) 5 oz EFW by: Hadlock (HIM-TS-UR-FL) Extended Tibia 17.7 mm 16w 0d 61% Nuno CM 1.6 mm <1% Nicolaides Nasal bone 4.1 mm 22% S[place] Head / Face / Neck Cephalic index 0.76 15% Nicolaides Nasal bone: present Extremities / Bony Struc FL / BPD 0.56 11% Hadlock FL / HC 0.15 9% Hadlock FL / AC 0.16 <1% Hadlock Other Structures FHR 144 bpm Anatomy ----- --------- The following structures appear normal: Head/Neck: Cranium. Choroid plexus. Midline falx. Cerebellum. Cisterna magna. Parenchyma. Neck. Nuchal fold. Face: Profile. Nasal bone. Maxilla. Orbits. Heart/Thorax: Situs. Cardiac rhythm. Abdomen: Abdom. wall. Cord insertion. Stomach. Kidneys. Bladder. Small bowel. Large bowel. Right renal artery. Left renal artery. Genitals. Extremities/Skeleton: Right upper arm. Right forearm. Right hand. Left upper arm. Left forearm. Left hand. Right upper leg. Right lower leg. Left upper leg. Left lower leg. The following structures could not be adequately visualized: Head / Neck Cavum septi pellucidi. Heart / Thorax 4-chamber view. RVOT view. 3-vessel view. 2-izbeiz-zfpfspj view. Aortic arch view. Ductal arch view. Interventricular septum. Cardiac position. Cardiac axis. Cardiac size. Diaphragm. Spine: Cervical spine. Thoracic spine. Lumbar spine. Sacral spine. The following structures could not be examined: Head / Neck Lateral ventricles. Vermis. Face Lips. Nose. Mandible. Heart / Thorax LVOT view. Bicaval view. Great vessels. Right lung. Left lung. Extremities / Right foot. Left foot. Skeleton Maternal Structures ----- --------- Uterus Visualized Fibroid(s) 1. Size 28 mm x 21 mm x 25 mm. Mean 24.3 mm. Vol 7.307 cm 2. Size 27 mm x 21 mm. Mean 24.0 mm. Vol 6.312 cm Cervix Visualized Approach - Transvaginal: Cervical length 3.83 cm Right Ovary Visualized Size 4.7 cm x 4.3 cm x 3.1 cm. Vol 32.5 cm Left Ovary Visualized Size 3.9 cm x 3.8 cm x 2.7 cm. Vol 21.1 cm Cul de Sac Visualized. No free fluid visualized Impression ----- --------- Single viable intrauterine consistent with 16w 0d with an PORFIRIO of 04/29/2025. Transvaginal cervical length measures 3.83 cm. Amniotic fluid MVP measures 3.6 cm. Uterine fibroid(s) as noted above. Bilateral complex adnexal masses with thick septations and heterogenous echogenic textures. Recommendations ----- --------- Please see [facility] documentation from today. The patient is scheduled in four weeks to complete anatomic survey and cervical length ultrasound. Subsequent follow up or other follow up as clinically determined by primary OB provider unless otherwise specified by [facility]. Results forwarded to ordering provider so they can follow up with the patient as necessary. Procedure Note Samantha Peres MD - 11/12/2024 NAME: SERVANDO LANGLEY : 2000 SEX: F Accession Number: [id number] ORDERING PHYSICIAN: SAMANTHA PERES REFERRING PHYSICIAN: GABY FOX Coding ----- --------- Procedures [id number]: Ultrasound, uterus, real time with imagedocumentation, and maternal evaluation plus detailed anatomic examination, transabdominalapproach;single or first gestation 35644: Transvaginal Ultrasound (OB) Indication ----- --------- Screening for Anatomic Survey, Uterine fibroid affecting ,Supervision of high risk (bilateral complex ovaries), Screening for cervical length. History ----- --------- OB History 3. Para 0 [id number] Current ----- --------- Cell free DNA Low Risk analysis Maternal Assessment ----- --------- Physical Exam Height 168 cm, 5 ft 6 in. Weight 77 kg, 170 lb. Initialweight 77 kg, 170 lb. BMI 27.44 kg/m . Initial BMI 27.44 kg/m . Weight gain 0 kg, 0 lb Method ----- --------- Transabdominal ultrasound examination. View: Suboptimal view: limited byearly gestational age and position. ----- --------- Rodriguez . Number of fetuses: 1 Dating ----- --------- LMP on: 07/23/2024 GA by LMP 16 w + 0 d PORFIRIO by LMP: 04/29/2025 Previous Ultrasound on: 09/19/2024 Type of prior assessment: GA GA at prior assessment date 8 w + 2 d GA by previous U/S 16 w + 0 d PORFIRIO by previous Ultrasound: 04/29/2025 Ultrasound examination on: 11/12/2024 GA by U/S based upon: AC, BPD, Femur, HC GA by U/S 16 w + 3 d PORFIRIO by U/S: 04/26/2025 Assigned: based on the LMP, selected on 11/12/2024 Assigned GA 16 w + 0 d Assigned PORFIRIO: 04/29/2025 General Evaluation ----- --------- Cardiac activity Present. FHR 144 bpm. movements: visualized.Presentation: variable Placenta: Placental site: posterior, away from cervical os Umbilical cord: Cord vessels: 3 vessel cord. Insertion site: normalinsertion Amniotic fluid: Amount of AF: normal amount. MVP 3.6 cm Biometry ----- --------- Standard BPD 33.4 mm 16w 3d 64% Hadlock OFD 43.9 mm 17w 0d 82% Nuno HC 123.8 mm 16w 2d 48% Hadlock Cerebellum tr 16.0 mm 16w 3d 50% Hill Nuchal fold 2.7 mm AC 114.0 mm 17w 1d 87% Hadlock Femur 18.7 mm 15w 4d 27% Hadlock Humerus 20.5 mm 16w 0d 58% Nuno HC / AC 1.09 2% Hadlock EFW 154 g 67% Hadlock EFW (lb) 0 lb EFW (oz) 5 oz EFW by: Hadlock (GLH-MI-WP-FL) Extended Tibia 17.7 mm 16w 0d 61% Nuno CM 1.6 mm <1% Nicolaides Nasal bone 4.1 mm 22% ClassDojo Head / Face / Neck Cephalic index 0.76 15% Nicolaides Nasal bone: present Extremities / Bony Struc FL / BPD 0.56 11% Hadlock FL / HC 0.15 9% Hadlock FL / AC 0.16 <1% Hadlock Other Structures FHR 144 bpm Anatomy ----- --------- The following structures appear normal: Head/Neck: Cranium. Choroid plexus. Midline falx. Cerebellum. Cisternamagna. Parenchyma. Neck. Nuchal fold. Face: Profile. Nasal bone. Maxilla. Orbits. Heart/Thorax: Situs. Cardiac rhythm. Abdomen: Abdom. wall. Cord insertion. Stomach. Kidneys. Bladder. Smallbowel. Large bowel. Right renal artery. Left renal artery. Genitals. Extremities/Skeleton: Right upper arm. Right forearm. Right hand. Leftupper arm. Left forearm. Left hand. Right upper leg. Right lower leg. Left upper leg. Left lower leg. The following structures could not be adequately visualized: Head / Neck Cavum septi pellucidi. Heart / Thorax 4-chamber view. RVOT view. 3-vessel view. 3-nvodva-vunbtcabktc. Aortic arch view. Ductal arch view. Interventricular septum. Cardiac position. Cardiac axis. Cardiacsize. Diaphragm. Spine: Cervical spine. Thoracic spine. Lumbar spine. Sacral spine. The following structures could not be examined: Head / Neck Lateral ventricles. Vermis. Face Lips. Nose. Mandible. Heart / Thorax LVOT view. Bicaval view. Great vessels. Right lung. Left lung. Extremities / Right foot. Left foot. Skeleton Maternal Structures ----- --------- Uterus Visualized Fibroid(s) 1. Size 28 mm x 21 mm x 25 mm. Mean 24.3 mm. Vol 7.307 cm 2. Size 27 mm x 21 mm. Mean 24.0 mm. Vol 6.312 cm Cervix Visualized Approach - Transvaginal: Cervical length 3.83 cm Right Ovary Visualized Size 4.7 cm x 4.3 cm x 3.1 cm. Vol 32.5 cm Left Ovary Visualized Size 3.9 cm x 3.8 cm x 2.7 cm. Vol 21.1 cm Cul de Sac Visualized. No free fluid visualized Impression ----- --------- Single viable intrauterine consistent with 16w 0d with an PORFIRIO of04/29/2025. Transvaginal cervical length measures 3.83 cm. Amniotic fluid MVP measures 3.6 cm. Uterine fibroid(s) as noted above. Bilateral complex adnexal masses with thick septations and heterogenousechogenic textures. Recommendations ----- --------- Please see [facility] documentation from today. The patient is scheduled in four weeks to complete anatomic survey andcervical length ultrasound. Subsequent follow up or other follow up as clinically determined byprimary OB provider unless otherwise specified by MFM. Results forwarded to ordering provider so they can follow up with thepatient as necessary. us Samantha Peres MD [facility] [place] Final Result documented in this encounter Visit Diagnoses Diagnosis Encounter for anatomic survey documented in this encounter
--- OUTSIDE RECORDS SUMMARY | 2024-11-12 10:00 | XMS_ITS | Encounter Summary ---
Author Organization AppSame tem Address [id number] [address] [place] [address] Care Team Providers Care Special Delivery Carrier Name Role Phone Unavailable Primary Care Provider Unavailabl e Reason for Referral * Vascular (Routine) - Pending Review Specialty Diagnoses / Procedures Referred By Contac t Referred To Contact Diagnoses Localized swelling of right lower extremity Procedures Vas venous duplex insufficiency lwr rt Samantha Peres MD [address] [place] [address] Phone: tel: fax: Referral ID Status Reason Start Date Expiration Date V isits Requested Visits Authorized [id number] Pending Review 11/12/2024 11/12/2025 1 1 * Diagnostic Imaging (Routine) - Pending Review Specialty Diagnoses / Procedures Referred By Contac t Referred To Contact Radiology Diagnoses Adnexal mass 16 weeks gestation of Procedures MR pelvis without contrast Samantha Peres MD [address] [place] [address] Phone: tel: fax: Referral ID Status Reason Start Date Expiration Date V isits Requested Visits Authorized [id number] Pending Review 11/12/2024 11/12/2025 1 1 Reason for Visit * Reason Comments Enlarged & Heterogeneous Bilateral Ovari es 2.3cm Isoechoic Left-sided Lesion Possible Endometrioma Encounter Details Date Type Department Care Team (Late st Contact Info) Description 11/12/2024 10:00 AM EDT Office Visit Maternal- Medicine at [facility] [address] [place] [phone] Samantha Peres MD [address] [facility] [address] [place], [place] [id number] Adnexal mass (Primary Dx); 16 weeks gestation [...] nausea or vomiting., Disp: , Rfl: PNV 30-nyjn-nefkwvxunadt-dha 29 mg iron-1 mg -350 mg comb [...] TESTS AND ULTRASOUND REPORTS: Referral records and [facility] chart were reviewed Pertinent Ultrasound findings are [...] (2019) [facility] maternal- medicine :principles and practice [place], [place] : [employer]/Elsevier Sonographic diagnosis of ovarian torsion: accuracy and predictive factors. Monica R, Jeff N, Zion N, Sohan-Chelsea G, Bright I. J Ultrasound Med. 2011 Jan;30(9):1205-10. Adnexal masses in : An updated review. Olivia AM, Dorie Rocha, Adelaide DOMÍNGUEZ, Nory H, Alexi RICKS. [facility] J Med. 2017 Feb-Apr;7(4):153-157. doi: [id number]/[email or web address]. PMID: [id number] Uterine fibroids, affecting I reviewed the uterine [...] and evaluation of bilateral adnexal masses, through [facility] Recommend repeat growth ultrasound in the 3rd trimester, through primary OB, given known uterine fibroid Anticipate term vaginal delivery at local hospital Precautions regarding shortness of breath and chest pain were reviewed with the patient today DISPOSITION: At this point the patient is in complete care of her nurses' association counselor. Thank you for allowing me to participate in the care of Daphney Montesinos. If there any questions please do not hesitate to contact us. Samantha Peres MD Maternal- Medicine [facility] [address] [facility] [address] [place] [address] This document was created with [employer] technology. Though I make every effort to review the dictation as it is transcribed, on occasion the spoken word can be misinterpreted by the technology leading to inappropriate words, phrases, or sentences. This note is addressed to the requesting provider as a consultation for clinical guidance. Specificmedical abbreviations are occasionally used and those are generally approved by the [place]?Board of?Obstetrics and?Gynecology?as well as?[place]???s abbreviations. The above plan of care was based solely on the diagnoses for which a consultation was requested. ?More frequent testing may be indicated based on her other medical/obstetrical conditions. The management of other or medical conditions is beyond the scope of requested consultation and will c ontinue to be followed by the primary nurses' association counselor or primary care provider. Note to patient: [...] risk Have you been seen here at [facility] in a previous ? No Recent ER visits or hospitalizations? No Bring blood sugar log or meter with you today? (Please bring them with you for every visit at [facility]) N/A Flu vaccine (Mar-July)? N/A Any concerns [...] 12/10/2024 1:30 PM EDT Appointment Maternal Medicine [place] [address] [facility] [address] [place] [address] Scheduled Orders Name Type Priority Associated Diagnoses [...]
--- OUTSIDE RECORDS SUMMARY | 2024-11-13 16:50 | XMS_ITS | Encounter Summary ---
Author Organization [facility] Address [address] [place] [address] Care Team Providers Care Advertising Analyst Name Role Phone Paloma Vazquez DO Unavailable [phone] Alberto Mayes MD Primary Care Provider Encounter Details Date Type Department Care Team (Late st Contact Info) Description 09/24/2024 Abstract [facility] [address] [place] [address] Jack Woods [facility] [place], [facility]11 Social History Tobacco Use Types Packs/Day [...] [place] [address] Jayla Leiva PA [address] [place] [address] [place] [address] documented as of this encounter Visit Diagnoses Not on filedocumented in this encounter Care Teams Advertising Analyst Relationship Specialty Start Date End Date Alberto Mayes MD [address] [address] PCP - General 05/02/23 Paolma Vazquez DO [address] [facility] [address] [place] [address] Referring Physician Obstetrics and Gynecology 04/25/23 documented as of this encounter
--- OUTSIDE RECORDS SUMMARY | 2024-11-13 16:50 | XMS_ITS | Encounter Summary ---
Author Organization [employer] Address [id number] [address] [place] [address] Care Team Providers Care Ct Technologist Name Role Phone Unavailable Primary Care Provider [...] 12/10/2024 1:30 PM EDT Appointment Maternal Medicine [place] [address] [address] [place] [address] documented as of this encounter Visit Diagnoses Not on filedocumented in this encounter
--- OUTSIDE RECORDS SUMMARY | 2024-11-13 16:50 | XMS_ITS | Encounter Summary ---
Author Organization [facility] Address [address] [place] [address] Care Team Providers Care Break Up Worker Name Role Phone Paloma Vazquez DO Unavailable [phone] Alberto Mayes MD Primary Care Provider Encounter [...] [place] [address] Jayla Leiva PA [address] [place], [facility]11 documented as of this encounter Visit Diagnoses Not on filedocumented in this encounter Care Teams Break Up Worker Relationship Specialty Start Date End Date Alberto Mayes MD [address] [place] [address] PCP - General 05/02/23 Paloma Vazquez DO [address] [place] [address] Referring Physician Obstetrics and Gynecology 04/25/23 documented as of this encounter
--- OUTSIDE RECORDS SUMMARY | 2024-11-13 16:50 | XMS_ITS | Encounter Summary ---
Author Organization [facility] Address [address] [place] [address] Care Team Providers Care Editor Publications Name Role Phone Paloma Vazquez DO Unavailable [phone] Alberto Mayes MD Primary Care Provider Encounter Details Date Type Department Care Team (Late st Contact Info) Description 11/05/2024 Bamboo flowsheet [facility] [address] [place] [address] Jack Woods [address] [place], [place] [id number] Social History Tobacco Use Types Packs/Day Years [...] PM EDT Routine [facility] [address] [place] [address] Jayla Leiva PA [address] [place] [address] [place] [address] documented as of this encounter Visit Diagnoses Not on filedocumented in this encounter Care Teams Editor Publications Relationship Specialty Start Date End Date Alberto Mayes MD [address] [email or web address] [address] [place] [address] PCP - General 05/02/23 Paloma Vazquez DO [address] [facility] [[email or web address] [address] [place] [address] Referring Physician Obstetrics and Gynecology 04/25/23 documented as of this encounter
--- OUTSIDE RECORDS SUMMARY | 2024-11-13 16:50 | XMS_ITS | Encounter Summary ---
Author Organization [facility] Address [address] [place] [address] Care Team Providers Care Product Applications Engineer Name Role Phone Paloma Vazquez DO Unavailable [phone] Alberto Mayes MD Primary Care Provider Encounter Details Date Type Department Care Team (Late st Contact Info) Description 10/03/2024 Abstract [facility] [address] [place] [address] Jack Woods [facility] [place], [facility]11 Social History Tobacco Use Types Packs/Day Years [...] Routine [facility] OB [address] [place] [address] Jayla Leiva PA [address] [place] [address] [place] [address] documented as of this encounter Visit Diagnoses Not on filedocumented in this encounter Care Teams Product Applications Engineer Relationship Specialty Start Date End Date Alberto Mayes MD [address] [address] PCP - General 05/02/23 Paloma Vazquez DO [address] [facility] [address] [place] [address] Referring Physician Obstetrics and Gynecology 04/25/23 documented as of this encounter
--- OUTSIDE RECORDS SUMMARY | 2024-11-13 16:50 | XMS_ITS | Encounter Summary ---
Author Organization [facility] Address [address] [place] [address] Care Team Providers Care Solar Field Installation Crew Member Name Role Phone Paloma Vazquez DO Unavailable [phone] Alberto Mayes MD Primary Care Provider Encounter Details Date Type Department Care Team (Late st Contact Info) Description 09/25/2024 Abstract [facility] OB [address] [place] [address] [facility] Juan Stephenson, [id number] Social History Tobacco Use Types Packs/Day [place] [...] [place] [address] Jayla Leiva PA [address] [place] [address] [place] [address] documented as of this encounter Visit Diagnoses Not on filedocumented in this encounter Care Teams Solar Field Installation Crew Member Relationship Specialty Start Date End Date Alberto Mayes MD [address] [address] PCP - General 05/02/23 Paloma Vazquez DO [address] [facility] [facility] [address] [place] [address] Referring Physician Obstetrics and Gynecology 04/25/23 documented as of this encounter
--- OUTSIDE RECORDS SUMMARY | 2024-11-13 16:50 | XMS_ITS | Clinical Summary ---
Author Organization [facility] Address [address] [place] [address] Care Team Providers Care Bale Coverer Name Role Phone Paloma Vazquez DO Unavailable [phone] Alberto Mayes MD Primary Care Provider Allergies [...] Department Care Team Description 11/12/2024 Abstract [facility] [address] [place] [address] Gaby Woods, DO 11/12/2024 External Result Encounter [facility] [address] [place] [address] Gaby Woods, DO 11/05/2024 1:40 PM EDT Routine [facility] [address] [place] [address] Gaby Woods, Well woman exam with routine gynecological exam; Second trimester ([facility]); 15 weeks gestation of ([facility]); Vaginal discharge; STD exposure 11/05/2024 External Result Encounter [facility] External Department Unsolicited Gaby Woods, DO 11/05/2024 Clinisync Result Encounter [facility]OM[facility] External Department Unsolicited Gaby Woods, DO 11/05/2024 External Result Encounter [facility] External Department Unsolicited Gaby Woods, DO 11/05/2024 Bamboo flowsheet [facility] [address] [place] [address] Gaby Woods, DO 11/04/2024 Travel 10/08/2024 2:30 PM EDT Routine [facility] [address] [place] [address] Gaby Woods, 11 weeks gestation of ([facility]); First trimester ([facility]); Other constipation; Gastroesophageal reflux in ([facility]) 10/08/2024 Bamboo flowsheet [facility] [address] [place] [address] Gaby Woods, DO 10/03/20[address] Abstract [facility] [address] [place] [address] Gaby Woods, DO 09/25/2024 Abstract [facility] OB [address] [place] [address] [place] [address] Gaby Woods, DO 09/24/2024 Abstract [facility] [address] [place] [address] Gaby Woods, DO 09/24/2024 Clinisync Result Encounter [facility] External Department Unsolicited Gaby Woods, DO 09/23/[address] [address] [place] [address] Kelley Sepulveda, BRIANA 09/19/2024 1:30 PM EDT Initial [facility] [address] [place] [address] GA: 8w2d 09/19/2024 1:00 PM EDT Ancillary Procedure [facility] [address] [place] [address] Missed menses 09/18/2024 Travel 09/05/[address] [address] [place] [address] Kelley Sepulveda LPN History of miscarriage 08/28/2024 8:30 AM EDT Ancillary Procedure [facility] [address] [place] [address] Missed menses 08/26/[address] [address] [place] [address] Kelley Sepulveda LPN 08/26/2024 Clinisync Result Encounter [facility] External Department Unsolicited Gaby Woods, DO 08/26/[address] [address] [place] [address] Kelley Sepluveda LPN 08/24/2024 Clinisync Result Encounter [facility]OMS External Department Unsolicited Peggy, Gaby, DO 08/23/2024 Telephone [facility] OB [address] [place] [address] [place] [address] Bianca Gentile [place] 08/23/2024 Telephone [facility] OB [address] [place] [address] [place] [address] Bianca Gentile GA 08/22/2024 Clinisync Result Encounter [facility] External Department Unsolicited Peggy, Gaby, DO 08/21/2024 Telephone [facility] OB [address] [place] [address] [place] [address] Bianca Gentile [place] 08/20/2024 Clinisync Result Encounter NOMS External Department [...] [address] [facility] [place] [address] Jayla Leiva PA [address] [facility] [place] [address] Procedures Procedure Name Priority Date/Time Associated Diagnosis Comments US OB 14+ WEEKS ANATOMY SCAN 11/12/2024 11:20 AM EDT RECURRENT VAGINITIS (HTRX) Routine 11/05/2024 3:29 PM EDT POCT URINALYSIS DIPSTICK Routine 11/05/2024 2:15 PM EDT Second trimester ([facility]) 15 weeks gestation of ([facility]) IGP,APTIMA HPV,AGE GDLN Routine 11/05/2024 1:57 [...] HCG Routine 08/17/2024 8: 35 AM EDT [facility] PREG QUANT HCG Routine 08/15/2024 7: 50 AM EDT from Last 3 Months Results * US OB 14+ weeks anatomy scan (11/12/2024 11:20 AM EDT) Anatomical Region Laterality Modality Body Ultrasound 11/12/2024 11:2 0 AM EDT Narrative 11/12/2024 11:20 AM EDT THIS EXAM WAS PERFORMED AT [facility] NAME: SERVANDO LANGLEY : 2000 SEX: F Accession Number: [id number] ORDERING PHYSICIAN: GUADALUPE SCHMIDT REFERRING PHYSICIAN: GABY WOODS Coding ----- --------- Procedures 29097: Ultrasound, uterus, real time with image documentation, and maternal evaluation plus detailed anatomic examination, transabdominal approach;single or first gestation 04693: Transvaginal Ultrasound (OB) Indication ----- --------- Screening for Anatomic Survey, Uterine fibroid affecting , Supervision of high risk (bilateral complex ovaries), Screening for cervical length. History ----- --------- OB History 3. Para 0 [id number] Current ----- --------- Cell free DNA Low [...] EFW (oz) 5 oz EFW by: Hadlock (WSI-ON-OP-FL) Extended Tibia 17.7 mm 16w 0d 61% [...] Thorax 4-chamber view. RVOT view. 3-vessel view. 4-rhjscw-bnlklpa view. Aortic arch view. Ductal arch view. [...] echogenic textures. Recommendations ----- --------- Please see [facility] documentation from today. The patient is scheduled in four weeks to complete anatomic survey and cervical length ultrasound. Subsequent follow up or other follow up as clinically determined by primary OB provider unless otherwise specified by [facility]. Results forwarded to ordering provider so they can follow up with the patient as necessary. The copy-to physician of this order is GABY Miguel The ordering physician of this order is GUADALUPE Pacheco Procedure Note Radiology, Radiologist, MD - 11/12/2024 THIS EXAM WAS PERFORMED AT [facility] NAME: SERVANDO LANGLEY : 2000 SEX: F Accession Number: [id number] ORDERING PHYSICIAN: GUADALUPE SCHMIDT REFERRING PHYSICIAN: GABY WOODS Coding ----- --------- Procedures 16621: Ultrasound, uterus, real time with imagedocumentation, and maternal evaluation plus detailed anatomic examination, transabdominalapproach;single or first gestation 73646: Transvaginal Ultrasound (OB) Indication ----- --------- Screening for Anatomic Survey, Uterine fibroid affecting ,Supervision of high risk (bilateral complex ovaries), Screening for cervical length. History ----- --------- OB History 3. Para 0 [id number] Current ----- --------- Cell free DNA Low [...] EFW (oz) 5 oz EFW by: Hadlock (OCT-ZG-KN-FL) Extended Tibia 17.7 mm 16w 0d 61% [...] Thorax 4-chamber view. RVOT view. 3-vessel view. 8-efpowd-krbqewgrlku. Aortic arch view. Ductal arch view. Interventricular [...] heterogenousechogenic textures. Recommendations ----- --------- Please see [facility] documentation from today. The patient is scheduled in four weeks to complete anatomic survey andcervical length ultrasound. Subsequent follow up or other follow up as clinically determined byprimary OB provider unless otherwise specified by [facility]. Results forwarded to ordering provider so they can follow up with thepatient as necessary. The copy-to physician of this order is GABY Miguel The ordering physician of this order is GUADALUPE Pacheco us Gaby Woods DO IMG OB US PROCEDURES Final Resul t * RECURRENT VAGINITIS (HTRX) (11/05/2024 3:29 PM EDT) [facility] ATOPOBIUM VAGINAE 0 19.961 - 24.689 ppm 11/06/2024 7:37 AM EDT [facility] ATOPOBIUM VAGINAE Not Detected 19.961 - 24.689 ppm 11/06/2024 7:37 AM EDT [facility] BVAB 2,3 (BACTERIAL VAGINOSIS ASSOCIATED BACTERIA 2, 3); MOBILUNCUS SPP 0 19.961 - 24.689 ppm 11/06/2024 7:37 AM EDT [facility] BVAB 2,3 (BACTERIAL VAGINOSIS ASSOCIATED BACTERIA 2, 3); MOBILUNCUS SPP Not Detected 19.961 - 24.689 ppm 11/06/2024 7:37 AM EDT [facility] LINDA ALBICANS, PARAPSILOSIS, TROPICALIS 0 19.961 - 30.770 ppm 11/06/2024 7:37 AM EDT [facility] LINDA ALBICANS, PARAPSILOSIS, TROPICALIS Not Detected 19.961 - 30.770 ppm 11/06/2024 7:37 AM EDT [facility] LINDA GLABRATA 0 23.000 - 32.138 ppm 11/06/2024 7:37 AM EDT [facility] LINDA GLABRATA Not Detected 23.000 - 32.138 ppm 11/06/2024 7:37 AM EDT [facility] LINDA KRUSEI 0 23.000 - 32.271 ppm 11/06/2024 7:37 AM EDT [facility] LINDA KRUSEI Not Detected 23.000 - 32.271 ppm 11/06/2024 7:37 AM EDT [facility] CHLAMYDIA TRACHOMATIS 0 23.000 - 31.467 ppm 11/06/2024 7:37 AM EDT [facility] CHLAMYDIA TRACHOMATIS Not Detected 23.000 - 31.467 ppm 11/06/2024 7:37 AM EDT [facility] GARDNERELLA VAGINALIS 0 19.961 - 24.689 ppm 11/06/2024 7:37 AM EDT [facility] GARDNERELLA VAGINALIS Not Detected 19.961 - 24.689 ppm 11/06/2024 7:37 AM EDT [facility] MEGASPHAERA (TYPES 1, 2) 0 19.961 - 24.689 ppm 11/06/2024 7:37 AM EDT [facility] MEGASPHAERA (TYPES 1, 2) Not Detected 19.961 - 24.689 ppm 11/06/2024 7:37 AM EDT [facility] NEISSERIA GONORRHOEAE 0 23.000 - 32.117 ppm 11/06/2024 7:37 AM EDT [facility] NEISSERIA GONORRHOEAE Not Detected 23.000 - 32.117 ppm 11/06/2024 7:37 AM EDT [facility] TRICHOMONAS VAGINALIS 0 23.000 - 32.119 ppm 11/06/2024 7:37 AM EDT [facility] TRICHOMONAS VAGINALIS Not Detected 23.000 - 32.119 ppm 11/06/2024 7:37 AM EDT [facility] MYCOPLASMA GENITALIUM 0 19.961 - 24.689 ppm 11/06/2024 7:37 AM EDT [facility] MYCOPLASMA GENITALIUM Not Detected 19.961 - 24.689 ppm 11/06/2024 7:37 AM EDT [facility] Tissue 11/05/2024 3:29 PM EDT 11/06/2024 2:40 AM EDT us Gaby Woods DO LAB BLOOD ORDERABLES Final Resul t [facility] [address] [place] [address] * POCT urinalysis dipstick manually resulted (11/05/2024 [...] EDT) AGE GDLN ACOG TESTING Note . [facility] Comment: TESTS RESULT FLAG UNITS REF RANGE LAB Clinician Provided Cytology Information Source.............Cervix No. of containers..01 ThinPrep Vial Age Algo ACOG Nery... -12 06 FLAG LEGEND: L-Low Normal,H-High Normal,LL-Alert Low,HH-Alert High <-Panic Low,>-Panic High,A-Abnormal,AA-Critical Abnormal Performed at: 01 =G [facility] [address] [place] [address] Gypsy Mtz MD, IGP, RFX APTIMA HPV ASCU Note . [facility] Comment: TESTS RESULT FLAG UNITS REF RANGE LAB DIAGNOSIS: 02 NEGATIVE FOR INTRAEPITHELIAL LESION OR MALIGNANCY. THIS SPECIMEN WAS RESCREENED PART OF OUR COMPUTER AIDED DESIGN TECHNICIAN PROGRAM. Specimen adequacy: 02 Satisfactory for evaluation. Endocervical and/or squamous metaplastic cells (endocervical component) are present. Performed by: 02 Felicity Rosen, Hotbed Operator ([facility]) QC reviewed by: 02 Esme Mahoney, Hotbed Operator ([facility]) . 02 Note: Note 02 The Pap [...] <-Panic Low,>-Panic High,A-Abnormal,AA-Critical Abnormal Performed at: [address] [address] Gypsy Mtz MD, Performed at: =G - [facility] [address] [id number] Grain Blender: Gypsy Mtz MD, Phone: [phone] Performed at: - [facility] [id number] Grain Blender: Gypsy Mtz MD, Phone: [phone] 11/05/2024 1:57 PM EDT 11/05/2024 9:04 PM EDT Narrative [facility] - 11/11/2024 3:09 PM EDT SPATULA-ALONE CERVIX Gaby Peggy DO LAB BLOOD ORDERABLES [facility] t [facility] PATHOLOGY REQUEST FOR LAB GIA (11/05/2024 12:00 AM EDT) PATHOLOGY REQUEST FOR LAB GIA 11/12/2024 8:15 AM EDT [facility] Comment:See report. Scanned copy available in EMR. Other Topography unknown / Unknown 11/05/2024 11/06/2024 1:31 PM EDT Narrative [facility] - 11/12/2024 8:15 AM EDT SKIN TAG Gaby Peggy DO LAB BLOOD ORDERABLES Final Resul t Performing Organization Address City/[facility]/ZIP Co de Phone Number [facility] [address] [place] [address], [facility] [address] [place] [address] * BOX TEST (09/24/2024 10:25 AM EDT) BOX TEST SENT OUT [facility] BOX1 [facility] BOX2 09/24/24 [facility] 09/24/2024 10:2 5 AM EDT 09/24/2024 10:30 AM EDT Narrative [facility] - 09/24/2024 2:09 PM EDT UNITY BOX Gaby Peggy LAB BLOOD ORDERABLES Final Resul t Performing Organization Address City/[facility]/ZIP Co de Phone Number [facility] * HBSAG SCREEN (09/24/2024 10:25 AM EDT) [facility] HBSAG SCREEN Negative Negative [facility] Comment: Performed at: [address] [id number] Grain Blender: Jordin Rao PhD, Phone: [phone] 09/24/2024 10:2 5 AM EDT 09/24/2024 10:30 AM EDT Narrative [facility] - 09/25/2024 12:10 PM EDT [facility] Peggy LAB BLOOD ORDERABLES Final Resul t Performing Organization Address [facility] Co de Phone Number [facility] * RAPID PLASMA REAGIN, QUANT (09/24/2024 10:25 AM EDT) [facility] RAPID PLASMA REAGIN, QUANT Non Reactive NonRea<1: 1 titer [facility] Comment: Please Note: This test does not meet current guidelines for screening and diagnosis of syphilis. This test is intended for following treatment response in patients being treated for syphilis infection. To screen for syphilis infection, a reflex cascade that includes both RPR and a treponema-specific assay should be utilized, such as Treponema pallidum (Syphilis) Screening Dinuba (522820) or Rapid Plasma Reagin (RPR) Test With Reflex to Quantitative RPR and Confirmatory Treponema pallidum Antibodies (819390). Performed at: [address] [id number] Grain Blender: Jordin Rao PhD, Phone: [phone] 09/24/2024 10:2 5 AM EDT 09/24/2024 10:30 AM EDT Narrative [facility] - 09/25/2024 12:10 PM EDT us Gaby Peggy DO LAB BLOOD ORDERABLES Final Resul t Performing Organization Address [facility] Co de Phone Number [facility] * HIV AB/P24 AG WITH REFLEX (09/24/2024 10:25 AM EDT) HIV AB/P24 AG SCREEN Non Reactive Non Reactive TB Comment: HIV-1/HIV-2 antibodies and HIV-1 p24 antigen were NOT detected. There is no laboratory evidence of HIV infection. HIV Negative Performed at: [address] [id number] Grain Blender: Jordin Rao PhD, Phone: [phone] 09/24/2024 10:2 5 AM EDT 09/24/2024 10:30 AM EDT [facility]3] - 09/25/2024 5:07 AM EDT us Looglao DO LAB BLOOD ORDERABLES Final Resul t Performing Organization Address [facility] de Phone Number [facility] * HCV ANTIBODY RFX TO QUANT PCR (09/24/2024 10:25 AM EDT) Pathologist [facility] HCV AB Non Reactive Non Reactive TB INTERPRETATION: Comment . [facility] Comment: Not infected with HCV unless early or acute infection is suspected (which may be delayed in an immunocompromised individual), or other evidence exists to indicate HCV infection. Performed at: [address] [id number] Grain Blender: Jordin Rao PhD, Phone: [phone] 09/24/2024 10:2 5 AM EDT 09/24/2024 10:30 AM EDT [facility]3] - 09/25/2024 8:09 AM EDT us Gaby Peggy DO LAB BLOOD ORDERABLES Final Resul t Performing Organization Address [facility] Co de Phone Number [facility] * MLR HEMOGLOBIN A1C (09/24/2024 10:25 AM EDT) GLYCOHEMOGLOBIN A1C 5.1 4.5 - 6.2 % [facility] Comment: ADA RECOMMENDED LIMIT 4.0 - 6.0 ADA THERAPEUTIC TARGET < 7.0 ACTION SUGGESTED > 7.0 ESTIMATED AVERAGE GLUCOSE 100 mg/dL TB 09/24/2024 10:2 5 AM EDT 09/24/2024 10:30 AM EDT Narrative [facility] - 09/24/2024 10:49 AM EDT Gaby Peggy DO [facility] Final Result [facility] * ALL TYPE AND SCREEN (09/24/2024 10:25 AM EDT) Pathologist [facility] BLOOD TYPE O Positive [facility] ANTIBODY SCREEN NEGATIVE TB 09/24/2024 10:2 5 AM EDT 09/24/2024 10:30 AM EDT Narrative [facility] - 09/24/2024 12:08 PM EDT [facility] , Gaby Peggy DO [facility] Final Result Performing Organization Address [facility] Co de Phone Number [facility] * ALL RUBELLA IGG AB (09/24/2024 10:25 AM EDT) Pathologist [facility] RUBELLA ANTIBODIES, IGG 5.37 Immune >0.99 index [facility] Comment: Non-immune <0.90 Equivocal 0.90 - 0.99 Immune >0.99 Performed at: - [facility] [id number] Grain Blender: Jordin Rao PhD, Phone: [phone] 09/24/2024 10:2 5 AM EDT 09/24/2024 10:30 AM EDT Narrative [facility] - 09/25/2024 8:09 AM EDT Gaby Peggy DO [facility] * (ABNORMAL) ALL CBC WITH AUTO DIFF (09/24/2024 10:25 AM EDT) [facility] TB WBC 9.2 4.0 - 11.0 10 [...] DO [facility] Final Result Performing Organization Address City/[facility]/ZIP Co de Phone Number [facility] * [facility] DRUG SCREEN RAPID (URINE) (09/24/2024 [...] EDT Gaby Altamiranoo DO [facility] Final Result [facility] * (ABNORMAL) POCT , urine manually [...] II, MD, PHD at 22-Sep-2024 08:21:31 PM [facility] Procedure Note Markie Crawford MD - [...] signed by MARKIE CRAWFORD II, MD, PHD [id number] 08:21:31 PM [facility] us Gaby Peggy DO IMG OB [...] DO [facility] Final Result Performing Organization Address [facility] de Phone Number [facility] * ALL PROGESTERONE (08/24/2024 7:06 AM EDT) [facility] PROGESTERONE 55.2 . ng/mL [facility] Comment: Follicular phase 0.1 - 0.9 Luteal phase 1.8 - 23.9 Ovulation phase 0.1 - 12.0 First trimester 11.0 - 44.3 Second trimester 25.4 - 83.3 Third trimester 58.7 - 214.0 Postmenopausal 0.0 - 0.1 Performed at: - [facility] [id number] Grain Blender: Jordin Rao PhD, Phone: [phone] 08/24/2024 7:06 AM EDT 08/24/2024 7:09 AM EDT Narrative [facility] - 08/25/2024 9:08 AM EDT us Gaby Peggy DO [facility] Final Result Performing Organization Address City/[facility] Co de Phone Number [facility] from Last 3 Months Insurance BCBS Care Teams Bale Coverer Relationship Specialty Start Date End Date Alberto Mayes MD [address] [place] [address] PCP - General 05/02/23 Paloma Vazquez DO [address] [facility] [address] [place] [address] Referring Physician Obstetrics and Gynecology 04/25/23
--- OUTSIDE RECORDS SUMMARY | 2024-11-13 16:50 | XMS_ITS | Clinical Summary ---
Author Organization [facility] Address [address] [place] [address] Care Team Providers Care Packaging Coordinator Name Role Phone Unavailable Primary Care Provider [...] Plan of Treatment Not on file Insurance [facility]
--- OUTSIDE RECORDS SUMMARY | 2024-11-13 16:51 | XMS_ITS | Encounter Summary ---
Author Organization [facility] Address [address] [place] [address] Care Team Providers Care Electrical Engineering Drafting Officer Name Role Phone Paloma Vazquez DO Unavailable [phone] Alberto Mayes MD Primary Care Provider Encounter Details Date Type Department Care Team (Late st Contact Info) Description 11/12/2024 External Result Encounter [facility] OB [address] [place] [address] Gaby Woods [facility] [place], [place] [id number] Social History Tobacco Use Types Packs/Day Years [...] Routine [facility] B[facility] OB [address] [place] [address] Jayla Leiva PA [address] [place] [address] [place] [address] documented as of this encounter Procedures Procedure Name Priority Date/Time Associated Diagnosis Comments US OB 14+ WEEKS ANATOMY SCAN 11/12/2024 11:20 AM EDT documented in this encounter Results * US OB 14+ weeks anatomy scan (11/12/2024 11:20 AM EDT) Anatomical Region Laterality Modality Body Ultrasound 11/12/2024 11:2 0 AM EDT Narrative 11/12/2024 11:20 AM EDT THIS EXAM WAS PERFORMED AT [facility] NAME: SERVANDO LANGLEY : 2000 SEX: F Accession Number: [id number] ORDERING PHYSICIAN: GUADALUPE SCHMIDT REFERRING PHYSICIAN: GABY WOODS Coding ----- --------- Procedures 46151: Ultrasound, uterus, real time with image documentation, and maternal evaluation plus detailed anatomic examination, transabdominal approach;single or first gestation 05893: Transvaginal Ultrasound (OB) Indication ----- --------- Screening for Anatomic Survey, Uterine fibroid affecting , Supervision of high risk (bilateral complex ovaries), Screening for cervical length. History ----- --------- OB History 3. Para 0 [id number] Current ----- --------- Cell free DNA Low [...] EFW (oz) 5 oz EFW by: Hadlock (DOB-AF-PH-FL) Extended Tibia 17.7 mm 16w 0d 61% Nuno CM 1.6 mm <1% Nicolaides Nasal bone 4.1 mm 22% [facility] Head / Face / Neck Cephalic index [...] Thorax 4-chamber view. RVOT view. 3-vessel view. 4-dbeqlx-jnmrxof view. Aortic arch view. Ductal arch view. [...] - 11/12/2024 THIS EXAM WAS PERFORMED AT [facility] NAME: SERVANDO LANGLEY : 2000 SEX: F Accession Number: [id number] ORDERING PHYSICIAN: GUADALUPE SCHMIDT REFERRING PHYSICIAN: GABY WOODS Coding ----- --------- Procedures 18572: Ultrasound, uterus, real time with imagedocumentation, and maternal evaluation plus detailed anatomic examination, transabdominalapproach;single or first gestation 71040: Transvaginal Ultrasound (OB) Indication ----- --------- Screening for Anatomic Survey, Uterine fibroid affecting ,Supervision of high risk (bilateral complex ovaries), Screening for cervical length. History ----- --------- OB History 3. Para 0 [id number] Current ----- --------- Cell free DNA Low [...] EFW (oz) 5 oz EFW by: Hadlock (KRQ-WE-DK-FL) Extended Tibia 17.7 mm 16w 0d 61% Nuno CM 1.6 mm <1% Nicolaides Nasal bone 4.1 mm 22% [facility] Head / Face / Neck Cephalic index [...] Thorax 4-chamber view. RVOT view. 3-vessel view. 7-ixpqtp-wtprijpmqwt. Aortic arch view. Ductal arch view. Interventricular [...] on filedocumented in this encounter Care Teams Electrical Engineering Drafting Officer Relationship Specialty Start Date End Date Alberto Mayes MD [address] [place] [address] PCP - General 05/02/23 Paloma Vazquez DO [address] [place] [address] Referring Physician Obstetrics and Gynecology 04/25/23 documented as of this encounter
--- OUTSIDE RECORDS SUMMARY | 2024-11-13 16:51 | XMS_ITS | Encounter Summary ---
Author Organization [facility] Address [address] [place] [address] Care Team Providers Care Garage Laborer Name Role Phone Paloma Vazquez DO Unavailable Alberto Mayes MD Primary Care Provider Encounter Details Date Type Department Care Team (Late st Contact Info) Description 01/01/2024 Abstract [facility] BCP OB [address] [place] [address] Jack Woods [facility] [address] [place], [facility]11 Social History Tobacco Use Types Packs/Day [...] Routine [facility] BCP OB [address] [place] [address] Jayla Leiva PA [address] [place], [facility]11 documented as of this encounter Visit Diagnoses Not on filedocumented in this encounter Care Teams Garage Laborer Relationship Specialty Start Date End Date Alberto Mayes MD [address] [facility] [address] [place] [address] PCP - General 05/02/23 Paloma Vazquez DO [address] [facility] [address] [place] [address] Referring Physician Obstetrics and Gynecology 04/25/23 documented as of this encounter
--- OUTSIDE RECORDS SUMMARY | 2024-11-13 16:51 | XMS_ITS | Encounter Summary ---
Author Organization [facility] Address [address] [place] [address] Care Team Providers Care Nougat Candy Maker Helper Name Role Phone Paloma Vazquez DO Unavailable [phone] Alberto Mayes MD Primary Care Provider Encounter Details Date Type Department Care Team (Late st Contact Info) Description 11/12/2024 Abstract [facility] BCP OB [address] [place] [address] Jack Woods [facility] [place], [facility]11 Social History Tobacco Use Types [...] Routine [facility] BCP OB [address] [place] [address] Jayla Leiva PA [address] [place] [address] [place] [address] documented as of this encounter Visit Diagnoses Not on filedocumented in this encounter Care Teams Nougat Candy Maker Helper Relationship Specialty Start Date End Date Alberto Mayes MD [address] [address] PCP - General 05/02/23 Paloma Vazquez DO [address] [facility] [address] [place] [address] Referring Physician Obstetrics and Gynecology 04/25/23 documented as of this encounter
--- OUTSIDE RECORDS SUMMARY | 2024-11-13 16:51 | XMS_ITS | Encounter Summary ---
Author Organization [facility] Address [address] [place] [address] Care Team Providers Care Components Engineer Name Role Phone Paloma Vazquez DO Unavailable [phone] Alberto Mayes MD Primary Care Provider [phone] Encounter Details Date Type Department Care Team (Late st Contact Info) Description 12/08/2023 Abstract [facility] B[facility] OB [address] [facility] [address] Corie Cavanaugh LPN [address] [place] [address] Social History Tobacco Use Types [...] EDT Routine [facility] B[facility] OB [address] [facility] [address] Jayla Leiva PA [address] [place] [address] documented as of this encounter Visit Diagnoses Not on filedocumented in this encounter Care Teams Components Engineer Relationship Specialty Start Date End Date Alberto Mayes MD [address] [facility] [address] [place] [address] PCP - General 05/02/23 Paloma Vazquez DO [address] [facility] [address] [place] [address] Referring Physician Obstetrics and Gynecology 04/25/23 documented as of this encounter
--- OUTSIDE RECORDS SUMMARY | 2024-11-13 16:51 | XMS_ITS | Encounter Summary ---
Author Organization [facility] Address [address] [place] [address] Care Team Providers Care Receptionist Clerk Name Role Phone Paloma Vazquez DO Unavailable [phone] Alberto Mayes MD Primary Care Provider [phone] Encounter Details Date Type Department Care Team (Late st Contact Info) Description 11/05/2024 Clinisync Result Encounter NOMS External Department Unsolicited Jack Woods DO [address] [facility] [place] [address] Social History Tobacco Use Types Packs/Day Years [...] PM EDT Routine [facility] BCP OB [address] [facility] [place] [address] Jayla Leiva PA [address] [facility] [place] [address] documented as of this encounter Procedures Procedure Name Priority Date/Time Associated Diagnosis Comments IGP,APTIMA HPV,AGE GDLN Routine 11/05/2024 1:57 PM EDT documented in this encounter Results * IGP,APTIMA HPV,AGE GDLN (11/05/2024 1:57 PM EDT) AGE GDLN ACOG TESTING Note . [facility] Comment: TESTS RESULT FLAG UNITS REF RANGE LAB Clinician Provided Cytology Information Source.............Cervix No. of containers..01 ThinPrep Vial Age Algo ACOG Nery... 01 FLAG LEGEND: L-Low Normal,H-High Normal,LL-Alert Low,HH-Alert High <-Panic Low,>-Panic High,A-Abnormal,AA-Critical Abnormal Performed at: 01 =[facility] [address] [place], [place] [address] [address] Gypsy Mtz MD, IGP, RFX APTIMA HPV ASCU Note . [facility] Comment: TESTS RESULT FLAG UNITS REF RANGE LAB DIAGNOSIS: 02 NEGATIVE FOR INTRAEPITHELIAL LESION OR MALIGNANCY. THIS SPECIMEN WAS RESCREENED PART OF OUR CORRECTIONS NURSE PROGRAM. Specimen adequacy: 02 Satisfactory for evaluation. Endocervical and/or squamous metaplastic cells (endocervical component) are present. Performed by: 02 Felicity Rosen, Director [facility] ([facility]) QC reviewed by: 02 Esme Mahoney, Director [facility] ([facility]) . 02 Note: Note 02 The [...] <-Panic Low,>-Panic High,A-Abnormal,AA-Critical Abnormal Performed at: [address] [place] [address] Gypsy Mtz MD, Performed at: = - [facility] [address], [place] [id number] Geosciences Professor: Gypsy Mtz MD, Phone: [phone] Performed at: [facility] [address] [id number] Geosciences Professor: Gypsy Mtz MD, Phone: [phone] 11/05/2024 1:57 PM EDT 11/05/2024 9:04 PM EDT Narrative [facility] - 11/11/2024 3:09 PM EDT SPATULA-ALONE CERVIX us Jack Peggy DO LAB BLOOD ORDERABLES Final Resul t [facility] documented in this encounter Visit Diagnoses Not on filedocumented in this encounter Care Teams Receptionist Clerk Relationship Specialty Start Date End Date Alberto Mayes MD [address] [place] [address] PCP - General 05/02/23 Paloma Vazquez DO [address] [place] [address] Referring Physician Obstetrics and Gynecology 04/25/23 documented as of this encounter
--- OUTSIDE RECORDS SUMMARY | 2024-11-13 16:51 | XMS_ITS | Encounter Summary ---
Author Organization [facility] Address [address] [place] [address] Care Team Providers Care Nuclear Equipment Sales Engineer Name Role Phone Paloma Vazquez DO Unavailable [phone] Alebrto Mayes MD Primary Care Provider Encounter Details Date Type Department Care Team (Late st Contact Info) Description 05/01/2023 External Result Encounter [facility]OMS External Department Unsolicited Paloma Vazquez, DO [address] [place] [address] Social History Tobacco Use Types Packs/Day Years [...] EDT Routine [facility] BCP OB [address] [facility] [place] [address] Jayla Leiva PA [address] [facility] [place] [address] documented as of this encounter Procedures Procedure Name Priority Date/Time Associated Diagnosis Comments XR HYSTEROSALPINGOGRAM 11:41 AM EST documented in this encounter Results * XR hysterosalpingogram (05/01/2023 11:41 AM EST) Anatomical Region Laterality Modality Uterus Radiographic Jennifer ging 05/01/2023 11:4 1 AM EST Impressions 05/02/2023 2:28 PM EST Normal hysterosalpingogram. Impression dictated by: Librado Haney M.D.05/01/2023 11:43 AM Dictation Location: [place] [address] Transcribed By: [facility] 05/01/23 1143 Dictated By: Librado Haney II, MD 05/01/23 1141 Signed By: <Electronically signed by Librado Haney II, MD in OV> 05/01/23 1143 Narrative 05/02/2023 2:28 PM EST [facility] [place] [address] Fluoroscopy Report Signed Patient: Daphney Montesinos MR#: [id number] : 2000 Acct:[id number] Age/Sex: 23 / F ADM Date: 05/01/23 Loc: XD Room: Type: [facility] Attending Dr: Paloma Vazquez DO Copies to: [...] hysterosalpingography Procedure Note Radiology, Radiologist, - 06/27/2023 [facility] [address] [address] Fluoroscopy Report Signed Patient: Daphney Montesinos JMR#: [id number] : 2000Acct:[id number] Age/Sex: 23 / FADM Date: 05/01/23 Loc: XD Room:Type: [facility] Attending Dr: Paloma Vazquez DO Copies to: [...] Librado Haney M.D.05/01/2023 11:43 AM Dictation Location: [place] [address] Transcribed By: [facility] 05/01/23 1143 Dictated By: Librado Haney II, MD 05/01/23 1141 Signed By: <Electronically signed by Librado Haney II, MD inOV> 05/01/23 1143 Paloma Vazquez DO IMG XR PROCEDURES Edited Re sult - Final documented in this encounter Visit Diagnoses Not on filedocumented in this encounter Care Teams Nuclear Equipment Sales Engineer Relationship Specialty Start Date End Date Alberto Mayes MD [address] [place] [address] PCP - General 05/02/23 Paloma Vazquez DO [address] [place] [address] Referring Physician Obstetrics and Gynecology 04/25/23 documented as of this encounter
--- OUTSIDE RECORDS SUMMARY | 2024-11-13 16:51 | XMS_ITS | Encounter Summary ---
Author Organization [facility] Address [address] [place] [address] Care Team Providers Care Pipefitter Helper Name Role Phone Paloma Vazquez DO Unavailable [phone] Alberto Mayes MD Primary Care Provider Encounter Details Date Type Department Care Team (Late st Contact Info) Description 12/11/2023 Abstract [facility] BCP OB [address] [place] [address] Jack Woods [facility] [address] [place], [id number] Social History Tobacco Use Types Packs/Day Years [...] [address] Jayla Leiva PA [address] [place], [facility] documented as of this encounter Visit Diagnoses Not on filedocumented in this encounter Care Teams Pipefitter Helper Relationship Specialty Start Date End Date Alberto Mayes MD [address] [facility] [address] [place] [address] PCP - General 05/02/23 Paloma Vazquez DO [address] [facility] [address] [place] [address] Referring Physician Obstetrics and Gynecology 04/25/23 documented as of this encounter
--- OUTSIDE RECORDS SUMMARY | 2024-11-13 16:51 | XMS_ITS | Encounter Summary ---
Author Organization [facility] Address [address] [place] [address] Care Team Providers Care Supervisor Mold Shop Name Role Phone Paloma Vazquez DO Unavailable [phone] Alberto Mayes MD Primary Care Provider Encounter Details Date Type Department Care Team (Late st Contact Info) Description 11/05/2024 External Result Encounter NOMS External Department Unsolicited Jack Woods DO [address] [facility] [address] [place], [place] [id number] Social History Tobacco Use Types Packs/Day Years [...] OB [address] [facility] [phone] Jayla Leiva PA [address] [facility] [place] [address] documented as of this encounter Procedures Procedure Name Priority Date/Time Associated Diagnosis Comments PATHOLOGY REQUEST FOR LAB GIA Routine 11/05/2024 12:00 AM EDT documented in this encounter Results * PATHOLOGY REQUEST FOR LAB GIA (11/05/2024 12:00 AM EDT) PATHOLOGY REQUEST FOR LAB GIA 11/12/2024 8:15 AM EDT [facility] Comment:See report. Scanned copy available in EMR. Other Topography unknown / Unknown 11/05/2024 11/06/2024 1:31 PM EDT Narrative [facility] - 11/12/2024 8:15 AM EDT SKIN TAG us Jack Altamiranoo DO LAB BLOOD ORDERABLES Final Resul t Performing Organization Address City/State/[facility] Co de Phone Number [facility] [address] [place] [address], [facility] [address] [place] [address] documented in this encounter Visit Diagnoses Not on filedocumented in this encounter Care Teams Supervisor Mold Shop Relationship Specialty Start Date End Date Alberto Mayes MD [address] [place] [address] PCP - General 05/02/23 Paloma Vazquez DO [address] [place] [address] Referring Physician Obstetrics and Gynecology 04/25/23 documented as of this encounter
--- OUTSIDE RECORDS SUMMARY | 2024-11-13 16:51 | XMS_ITS | Encounter Summary ---
Author Organization [facility] Address [address] [place] [address] Care Team Providers Care Machine Set Up Operator Paper Goods Name Role Phone Paloma Vazquez DO Unavailable Alberto Mayes MD Primary Care Provider Encounter Details Date Type Department Care Team (Late st Contact Info) Description 12/06/2023 Abstract [facility] BCP OB [address] [facility] [place] [address] Corie Cavanaugh LPN [address] [place] [address] Social History Tobacco Use Types [...] PM EDT Routine [facility] BCP OB [address] [facility] [place] [address] Jayla Leiva PA [address] [facility] [place] [address] documented as of this encounter Visit Diagnoses Not on filedocumented in this encounter Care Teams Machine Set Up Operator Paper Goods Relationship Specialty Start Date End Date Alberto Mayes MD [address] [facility] [address] [place] [address] PCP - General 05/02/23 Paloma Vazquez DO [address] [facility] [address] [place] [address] Referring Physician Obstetrics and Gynecology 04/25/23 documented as of this encounter
--- OUTSIDE RECORDS SUMMARY | 2024-11-13 16:51 | XMS_ITS | Clinical Summary ---
Author Organization [facility] tem Address [id number] [address] [place] [address] Care Team Providers Care Test Engineering Manager Name Role Phone Unavailable Primary Care [...] by mouth in the morning. Active PNV 76-krbr-jeszkx folate-dha 29 mg iron-1 mg -350 mg comb pack,tablet DR,capsule DR Take 1 tablet by mouth in the morning. Active progesterone (PROMETRIUM) 200 mg capsule Take 1 capsule (200 mg total) by mouth in the morning. 11/13/19 25 Discontinued Encounters Date Type Department Care Team Description 11/12/2024 10:00 AM EDT Office Visit Maternal- Medicine at [facility] [address] [place] [phone] Samantha Peres MD Adnexal mass (Primary Dx); 16 weeks gestation of ; Uterine fibroids affecting in second trimester; Localized swelling of right lower extremity 11/12/2024 8:33 AM EDT - 11/12/2024 11:59 PM EDT Hospital Encounter [facility] US Imaging [address] [facility] [place] [address] Encounter for anatomic survey Discharge Disposition: Home 11/12/2024 Orders Only Maternal- Medicine at [facility] [address] [place] [address] Jayla Avina LPN Adnexal mass (Primary Dx); Uterine fibroids affecting in second trimester; Localized swelling of right lower extremity 11/12/2024 Travel 10/04/2024 Orders Only Maternal- Medicine at [facility] [address] [place] [address] Ref Prov, Not In System 10/04/2024 Abstract Maternal- Medicine at [facility] [address] [place] [phone] Samantha Peres MD from Last 3 Months [...] 12/10/2024 1:30 PM EDT Appointment Maternal Medicine [place] [address] [place] [address] Health Maintenance Due Date Last Done Comments [...] Ella l Result MANUALLY TRANSCRIBED RESULTS * US [facility] COMPREHENSIVE ANATOMIC SURVEY (11/12/2024 10:10 AM EDT) Anatomical Region Laterality Modality OB-MOMD TEACHER Ultrasound 11/12/2024 8:40 AM EDT Narrative 11/12/2024 11:20 AM EDT NAME: SERVANDO LANGLEY : 2000 SEX: F Accession Number: [id number] ORDERING PHYSICIAN: SAMANTHA PERES REFERRING PHYSICIAN: GABY FOX Coding ----- --------- Procedures [id number]: Ultrasound, uterus, real time with image documentation, and maternal evaluation plus detailed anatomic examination, transabdominal approach;single or first gestation 77200: Transvaginal Ultrasound (OB) Indication ----- --------- Screening for Anatomic Survey, Uterine fibroid affecting , Supervision of high risk (bilateral complex ovaries), Screening for cervical length. History ----- --------- OB History 3. Para 0 [id number] Current ----- --------- Cell free DNA Low [...] EFW (oz) 5 oz EFW by: Hadlock (NUS-IF-TQ-FL) Extended Tibia 17.7 mm 16w 0d 61% Nuno CM 1.6 mm <1% Nicolaides Nasal bone 4.1 mm 22% [facility] Head / Face / Neck Cephalic [...] Thorax 4-chamber view. RVOT view. 3-vessel view. 6-hziscx-uwkzlfx view. Aortic arch view. Ductal arch view. [...] echogenic textures. Recommendations ----- --------- Please see [facility] documentation from today. The patient is [...] LANGLEY : 2000 SEX: F Accession Number: [id number] ORDERING PHYSICIAN: SAMANTHA PERES REFERRING PHYSICIAN: GABY FOX Coding ----- --------- Procedures 97458: Ultrasound, uterus, real time with imagedocumentation, and maternal evaluation plus detailed anatomic examination, transabdominalapproach;single or first gestation 85793: Transvaginal Ultrasound (OB) Indication ----- --------- Screening for Anatomic Survey, Uterine fibroid affecting ,Supervision of high risk (bilateral complex ovaries), Screening for cervical length. History ----- --------- OB History 3. Para 0 [id number] Current ----- --------- Cell free DNA Low [...] EFW (oz) 5 oz EFW by: Hadlock (XAN-SR-DP-FL) Extended Tibia 17.7 mm 16w 0d 61% [...] Thorax 4-chamber view. RVOT view. 3-vessel view. 2-mfmuqv-sjxxnhmmhby. Aortic arch view. Ductal arch view. Interventricular [...] heterogenousechogenic textures. Recommendations ----- --------- Please see [facility] documentation from today. The patient is scheduled in four weeks to complete anatomic survey andcervical length ultrasound. Subsequent follow up or other follow up as clinically determined byprimary OB provider unless otherwise specified by [facility]. Results forwarded to ordering provider so they can follow up with thepatient as necessary. us Samantha Peres MD [facility] US ORDERABLES Final Result * Ultrasound - [...] ORDERABLES Final Re sult Performing Organization Address [facility] de Phone Number MANUALLY TRANSCRIBED RESULTS * CBC without diff (09/24/2024) Only the most recent of2 resultswithin the time period is included. Platelets 281 MANUALLY TRANSCRIBED RESULTS Blood Venous blood / Unknown us Not In System Ref Prov LAB BLOOD ORDERABLES Ella l Result Performing Organization Address [facility] de Phone Number MANUALLY TRANSCRIBED RESULTS * CBC and differential (09/24/2024) Neutrophils Absolute (A) 6.80 1.30 - 8.30 10*3/uL MANUALLY TRANSCRIBED RESULTS Auto WBC 9.2 3.3 - 10.0 10*3/mL MANUALLY TRANSCRIBED RESULTS Blood us Samantha Peres MD LAB BLOOD ORDERABLES Final Resul t Performing Organization Address [facility] de Phone Number MANUALLY TRANSCRIBED RESULTS * Hemoglobin A1c (09/24/2024) Hemoglobin A1C 5.1 4.0 - 6.0 % MANUALLY TRANSCRIBED RESULTS Blood Venous blood / Unknown us Samantha Peres MD LAB BLOOD ORDERABLES Final Resul t MANUALLY TRANSCRIBED RESULTS from Last 3 Months Insurance [address] [place] [address] [facility]
--- OUTSIDE RECORDS SUMMARY | 2024-11-13 16:51 | XMS_ITS | Encounter Summary ---
Author Organization [facility] Inside Secure [facility] tem Address [id number] [address] [place] [address] Care Team Providers Care Car Shunter Name Role Phone Unavailable Primary Care Provider Unavailabl e Encounter Details Date Type Department Care Team (Late Contact Info) Description 10/04/2024 Orders Only Maternal- Medicine at [facility] [address] [place] [address] Ref Prov, [place] [address] Social History Tobacco Use Types Packs/Day Years [...] 12/10/2024 1:30 PM EDT Appointment Maternal Medicine [address] [place] [address] documented as of this encounter Procedures Procedure [...]
--- OUTSIDE RECORDS SUMMARY | 2024-11-13 16:51 | XMS_ITS | Encounter Summary ---
Author Organization [facility] Address [address] [place] [address] Care Team Providers Care Cattle Producers Name Role Phone Paloma Vazquez DO Unavailable Alberto Mayes MD Primary Care Provider Encounter Details Date Type Department Care Team (Late st Contact Info) Description 11/05/2024 External Result Encounter [facility] External Department Unsolicited Jack Woods DO [address] [facility] [address] [place], [place] [id number] Social History Tobacco Use Types Packs/Day Years [...] [address] [facility] [place] [phone] Jayla Leiva PA [address] [facility] [place] [address] documented as of this encounter Procedures Procedure Name Priority Date/Time Associated Diagnosis Comments RECURRENT VAGINITIS (HTRX) Routine 11/05/2024 3:29 PM EDT documented in this encounter Results * RECURRENT VAGINITIS (HTRX) (11/05/2024 3:29 PM EDT) [facility] ATOPOBIUM VAGINAE 0 19.961 - 24.689 ppm 11/06/2024 7:37 AM EDT [facility] ATOPOBIUM VAGINAE Not Detected 19.961 - 24.689 ppm 11/06/2024 7:37 AM EDT [facility] BVAB 2,3 (BACTERIAL VAGINOSIS ASSOCIATED BACTERIA 2, 3); MOBILUNCUS SPP 0 19.961 - 24.689 ppm 11/06/2024 7:37 AM EDT [facility] BVAB 2,3 (BACTERIAL VAGINOSIS ASSOCIATED BACTERIA 2, 3); MOBILUNCUS SPP Not Detected 19.961 - 24.689 ppm 11/06/2024 7:37 AM EDT [facility] LINDA ALBICANS, PARAPSILOSIS, TROPICALIS 0 19.961 - 30.770 ppm 11/06/2024 7:37 AM EDT [facility] LINDA ALBICANS, PARAPSILOSIS, TROPICALIS Not Detected 19.961 - 30.770 ppm 11/06/2024 7:37 AM EDT [facility] LINDA GLABRATA 0 23.000 - 32.138 ppm 11/06/2024 7:37 AM EDT [facility] LINDA GLABRATA Not Detected 23.000 - 32.138 ppm 11/06/2024 7:37 AM EDT [facility] LINDA KRUSEI 0 23.000 - 32.271 ppm 11/06/2024 7:37 AM EDT [facility] LINDA KRUSEI Not Detected 23.000 - 32.271 ppm 11/06/2024 7:37 AM EDT [facility] CHLAMYDIA TRACHOMATIS 0 23.000 - 31.467 ppm 11/06/2024 7:37 AM EDT [facility] CHLAMYDIA TRACHOMATIS Not Detected 23.000 - 31.467 ppm 11/06/2024 7:37 AM EDT [facility] GARDNERELLA VAGINALIS 0 19.961 - 24.689 ppm 11/06/2024 7:37 AM EDT [facility] GARDNERELLA VAGINALIS Not Detected 19.961 - 24.689 ppm 11/06/2024 7:37 AM EDT [facility] MEGASPHAERA (TYPES 1, 2) 0 19.961 - 24.689 ppm 11/06/2024 7:37 AM EDT [facility] MEGASPHAERA (TYPES 1, 2) Not Detected 19.961 - 24.689 ppm 11/06/2024 7:37 AM EDT [facility] NEISSERIA GONORRHOEAE 0 23.000 - 32.117 ppm 11/06/2024 7:37 AM EDT [facility] NEISSERIA GONORRHOEAE Not Detected 23.000 - 32.117 ppm 11/06/2024 7:37 AM EDT [facility] TRICHOMONAS VAGINALIS 0 23.000 - 32.119 ppm 11/06/2024 7:37 AM EDT [facility] TRICHOMONAS VAGINALIS Not Detected 23.000 - 32.119 ppm 11/06/2024 7:37 AM EDT [facility] MYCOPLASMA GENITALIUM 0 19.961 - 24.689 ppm 11/06/2024 7:37 AM EDT [facility] MYCOPLASMA GENITALIUM Not Detected 19.961 - 24.689 ppm 11/06/2024 7:37 AM EDT [facility] Tissue 11/05/2024 3:29 PM EDT 11/06/2024 2:40 AM EDT us Jack Peggy DO LAB BLOOD ORDERABLES Final Resul t [facility] [address] [place] [address] documented in this encounter Visit Diagnoses Not on filedocumented in this encounter Care Teams Cattle Producers Relationship Specialty Start Date End Date Alberto Mayes MD [address] [place] [address] PCP - General 05/02/23 Paloma Vazquez DO [address] [place] [address] Referring Physician Obstetrics and Gynecology 04/25/23 documented as of this encounter
--- OUTSIDE RECORDS SUMMARY | 2024-11-13 16:51 | XMS_ITS | Encounter Summary ---
Author Organization [facility] Address [address] [place] [address] Care Team Providers Care Leather Repairer Name Role Phone Paloma Vazquez DO Unavailable [phone] Alberto Mayes MD Primary Care Provider Encounter Details Date Type Department Care Team (Late st Contact Info) Description 12/06/2023 Abstract [facility] BCP OB [address] [facility] [place] [address] Corie Cavanaugh LPN [address] [place] [address] Social History Tobacco Use Types [...] Routine [facility] BCP OB [address] [facility] [place] [address] Jayla Leiva PA [address] [facility] [place] [address] documented as of this encounter Visit Diagnoses Not on filedocumented in this encounter Care Teams Leather Repairer Relationship Specialty Start Date End Date Alberto Mayes MD [address] [facility] [address] [place] [address] PCP - General 05/02/23 Paloma Vazquez DO [address] [facility] [address] [place] [address] Referring Physician Obstetrics and Gynecology 04/25/23 documented as of this encounter
--- OUTSIDE RECORDS SUMMARY | 2024-11-13 16:51 | XMS_ITS | Clinical Summary ---
Author Organization [facility] Address [facility] [place] [address] Care Team Providers Care Email Marketing Processor Name Role Phone Alberto Mayes MD Primary Care Provider [phone] Allergies Active Allergy Reactions Criticality Noted Date [...] Tetanus: Every 10yrs 12/24/2019 12/23/2009 COVID-19 Vaccine (2023- 5 season) 2024 Influenza Vaccine (#1) 2025 03/18/2017 Pneumococcal Vaccine: Ped or At-Risk Aged Out No longer eligible b ased on patient's age to complete this topic Insurance [employer]/PREF/HMO/PPO ANTHEM BLUE/PREF/HMO/PPO Care Teams Email Marketing Processor Relationship Specialty Start Date End Date Alberto Mayes MD [address] [place] [address] PCP - General Family Medicine 08/03/18
--- OUTSIDE RECORDS SUMMARY | 2024-11-13 16:51 | XMS_ITS | Encounter Summary ---
Author Organization [facility] Address [address] [place] [address] Care Team Providers Care Photographic Restorer Name Role Phone Paloma Vazquez DO Unavailable Alberto Mayes MD Primary Care Provider [phone] Encounter Details Date Type Department Care Team (Late st Contact Info) Description 01/01/2024 Abstract [facility] BCP OB [address] [place] [address] Jack Woods [facility] [address] [place], [facility]11 Social History Tobacco Use Types Packs/Day [...] [place] [address] Jayla Leiva PA [address] [place], [facility]11 documented as of this encounter Visit Diagnoses Not on filedocumented in this encounter Care Teams Photographic Restorer Relationship Specialty Start Date End Date Alberto Mayes MD [address] [facility] [address] [place] [address] PCP - General 05/02/23 Paloma Vazquez DO [address] [facility] [address] [place] [address] Referring Physician Obstetrics and Gynecology 04/25/23 documented as of this encounter
--- OUTSIDE RECORDS SUMMARY | 2024-11-13 16:51 | XMS_ITS | Encounter Summary ---
Author Organization [facility] Address [address] [place] [address] Care Team Providers Care X Ray Control Equipment Repairer Name Role Phone Paloma Vazquez DO Unavailable [phone] Alberto Mayes MD Primary Care Provider Encounter Details Date Type Department Care Team (Late st Contact Info) Description 12/27/2023 Abstract [facility] BCP OB [address] [facility] [place] [address] Corie Cavanaugh LPN [address] [place] [address] Social History Tobacco Use Types [...] [facility] BCP OB [address] [facility] [place] [address] Jayla Leiva PA [address] [facility] [place] [address] documented as of this encounter Visit Diagnoses Not on filedocumented in this encounter Care Teams X Ray Control Equipment Repairer Relationship Specialty Start Date End Date Alberto Mayes MD [address] [facility] [address] [place] [address] PCP - General 05/02/23 Paloma Vazquez DO [address] [facility] [address] [place] [address] Referring Physician Obstetrics and Gynecology 04/25/23 documented as of this encounter
--- OUTSIDE RECORDS SUMMARY | 2024-11-13 16:51 | XMS_ITS | Encounter Summary ---
Author Organization [facility] Address [address] [place] [address] Care Team Providers Care Yarding Supervisor Name Role Phone Paloma Vazquez DO Unavailable [phone] Alberto Mayes MD Primary Care Provider Encounter Details Date Type Department Care Team (Late st Contact Info) Description 01/08/2024 Abstract [facility] [address] [facility] [place] [address] Jack Woods [address] [place], [facility]11 Social History Tobacco Use Types [...] Routine [facility] BCP OB [address] [place] [address] Jayla Leiva PA [address] [place], [facility]11 documented as of this encounter Visit Diagnoses Not on filedocumented in this encounter Care Teams Yarding Supervisor Relationship Specialty Start Date End Date Alberto Mayes MD [address] [facility] [address] [place] [address] PCP - General 05/02/23 Paloma Vazquez DO [address] [facility] [address] [place] [address] Referring Physician Obstetrics and Gynecology 04/25/23 documented as of this encounter
== END 2024-11-05 16:49 | disposition home or self-care (01) ==
LOC: LAB 16:48
PROVIDERS: PCP Family Medicine; Visit Provider Obstetrics & Gynecology
DX: L91.8 Other hypertrophic disorders of the skin (principal); B07.8 Other viral warts

== ENCOUNTER 2024-11-05 19:05 | Outpatient (REF) | payer BC, SELFPAY ==
--- OUTSIDE RECORDS SUMMARY | 2015-04-03 10:28 | XMS_ITS | Continuity of Care Document ---
Author Organization [facility] Address [address] [place] [address] Phone Care Team Providers Care Pulp Plant Supervisor Name Role Phone Jonathan Herrera Unavailable Unavailable Procedures Procedure Date TB INTRADERMAL TEST TB INTRADERMAL TEST Advance Directives Directive Yes / No Effective Date File Name No Information Encounters Encounter Description Practice Location Reason(s) For Visit Diagnoses Date Provider Providers Copied on Encounter [facility], [address] [place] [address], [id number], tel:[phone] [facility] No Information Beronica Lopez. [address] [place], [place], [id number], [place]. tel:[phone] [facility], [address] [place] [address], [id number], [place] tel:[phone] [facility] No Information Beronica Lopez. [address] [place], [place], [id number], [place]. tel:[phone] [facility], [address] [place], [place], [id number], [place] tel:[phone] [facility] No Information Beronica Lopez. [address] [place], [place], [id number], [place]. tel:[phone] Family History Family Member Type Diagnosis Age At Onset No Information Payers Payer name Insurance type Covered republican ID Authoriza tion(s) No Information Social History [...]
--- OUTSIDE RECORDS SUMMARY | 2024-11-05 13:40 | XMS_ITS | Encounter Summary ---
Author Organization [facility] Address [address] [place] [address] Care Team Providers Care Draw String Knotter Name Role Phone Paloma Vazquez DO Unavailable [phone] Alberto Mayes MD Primary Care Provider Encounter Details Date Type Department Care Team (Latest Contact Info) Description 11/05/2024 1:40 PM EDT Routine [facility] BCP OB [address] [place] [address] Jack Woods DO [address] [facility] [address] [place], [place] [id number] Well woman exam with routine gynecological exam; Second trimester ([facility]); 15 weeks gestation of ([facility]); Vaginal discharge; STD exposure Social History Tobacco [...] PM EDT Routine [facility] BCP OB [address] [facility] [place] [address] Jayla Leiva PA [address] [place] [address] Scheduled Orders Name Type Priority Associated Diagnoses Orde r Schedule SURESWAB(R) ADVANCED VAGINITIS PLUS, TMA Pathology and Cytology Routine Vaginal discharge Ordered: 11/05/2024 CHLAMYDIA TRACHOMATIS (GENITO/STI) Lab Routine STD exposure Ordered: 11/05/2024 Neisseria gonorrhea DNA probe, direct Lab Routine STD exposure Ordered: 11/05/2024 Alpha fetoprotein, maternal Lab Routine Second trimester ([facility]) 15 weeks gestation of ([facility]) Expected: 11/05/2024 (Approximate), Expires: 05/07/2025 Pap Smear Pathology and Cytology Routine Well woman exam with routine gynecological exam Ordered: 11/05/2024 documented as of this encounter Procedures Procedure Name Priority Date/Time Associated Diagnosis Comments POCT URINALYSIS DIPSTICK Routine 11/05/2024 2:15 PM EDT Second trimester ([facility]) 15 weeks gestation of ([facility]) documented in this encounter Results * POCT [...] gynecological exam Routine gynecological examination Second trimester ([facility]) state, incidental 15 weeks gestation of ([facility]) Vaginal discharge Leukorrhea, not specified as infective STD exposure documented in this encounter Care Teams Draw String Knotter Relationship Specialty Start Date End Date Alberto Mayes MD [address] [place] [address] PCP - General 05/02/23 Paloma Vazquez DO [address] [place] [address] Referring Physician Obstetrics and Gynecology 04/25/23 documented as of this encounter
--- OUTSIDE RECORDS SUMMARY | 2024-11-05 19:07 | XMS_ITS | Encounter Summary ---
Author Organization [facility] Address [address] [place] [address] Care Team Providers Care Diet Aide Name Role Phone Paloma Vazquez DO Unavailable [phone] Alberto Mayes MD Primary Care Provider Encounter Details Date Type Department Care Team (Late st Contact Info) Description 09/24/2024 Abstract [facility] BCP OB [address] [place] [address] Jack Woods [facility] [place], [facility]11 Social History Tobacco Use Types Packs/Day Years [...] on file documented as of this encounter Plan of Treatment Upcoming Encounters Date Type Department Care Team (Late st Contact Info) Description 12/03/2024 1:30 PM EDT Routine [facility] BCP OB [address] [place] [address] Jayla Leiva PA [address] [place] [address] [place] [address] documented as of this encounter Visit Diagnoses Not on filedocumented in this encounter Care Teams Diet Aide Relationship Specialty Start Date End Date Alberto Mayes MD [address] [address] PCP - General 05/02/23 Paloma Vazquez DO [address] [facility] [address] [place] [address] Referring Physician Obstetrics and Gynecology 04/25/23 documented as of this encounter
--- OUTSIDE RECORDS SUMMARY | 2024-11-05 19:07 | XMS_ITS | Encounter Summary ---
Author Organization [facility] Address [address] [place] [address] Care Team Providers Care Shoe Lacer Name Role Phone Paloma Vazquez DO Unavailable [phone] Alberto Mayes MD Primary Care Provider [phone] Encounter Details Date Type Department Care Team (Late st Contact Info) Description 10/03/2024 Abstract [facility] BCP OB [address] [place] [address] Jack Woods [facility] [place], [facility]11 Social History Tobacco Use Types Packs/Day Years [...] Routine [facility] BCP OB [address] [place] [address] Jayla Leiva PA [address] [place] [address] [place] [address] documented as of this encounter Visit Diagnoses Not on filedocumented in this encounter Care Teams Shoe Lacer Relationship Specialty Start Date End Date Alberto Mayes MD [address] [address] PCP - General 05/02/23 Paloma Vazquez DO [address] [facility] [address] [place] [address] Referring Physician Obstetrics and Gynecology 04/25/23 documented as of this encounter
--- OUTSIDE RECORDS SUMMARY | 2024-11-05 19:08 | XMS_ITS | Encounter Summary ---
Author Organization [facility] Address [address] [place] [address] Care Team Providers Care Cardiology Clinical Nurse Specialist Name Role Phone Paloma Vazquez DO Unavailable Alberto Mayes MD Primary Care Provider Encounter Details Date Type Department Care Team (Late st Contact Info) Description 01/08/2024 Abstract [facility] OB [address] [facility] [place] [address] [address] Woods [address] [place], [facility]11 Social History Tobacco Use Types Packs/Day Years Used Date Smoking Tobacco: Never Alcohol Use Standard Drinks/Week Comments Never 0 (1 standard drink = 0.6 oz pure alcohol) Caffeine intake: 3-4 cups per day Comments Unknown Sex and Gender Information Value Date Recorded Sex Assigned at Not on file Legal Sex Female 7:33 PM EDT Gender Identity Not on file Sexual Orientation Not on file documented as of this encounter Plan of Treatment Upcoming Encounters Date Type Department Care Team (Late st Contact Info) Description 12/03/2024 1:30 PM EDT Routine [facility] BCP OB [address] [place] [address] Jayla Leiva PA [address] [place], [facility]11 documented as of this encounter Visit Diagnoses Not on filedocumented in this encounter Care Teams Cardiology Clinical Nurse Specialist Relationship Specialty Start Date End Date Alberto Mayes MD [address] [facility] [address] [place] [address] PCP - General 05/02/23 Paloma Vazquze DO [address] [facility] [address] [place] [address] Referring Physician Obstetrics and Gynecology 04/25/23 documented as of this encounter
--- OUTSIDE RECORDS SUMMARY | 2024-11-05 19:08 | XMS_ITS | Encounter Summary ---
Author Organization [facility] Address [address] [place] [address] Care Team Providers Care Clinical Marketing Manager Name Role Phone Paloma Vazquez DO Unavailable Alberto Mayes MD Primary Care Provider Encounter Details Date Type Department Care Team (Late st Contact Info) Description 12/27/2023 Abstract [facility] BCP OB [address] [facility] [place] [address] Corie Cavanaugh LPN [address] [place] [address] Social History Tobacco Use Types Packs/Day Years [...] PM EDT Routine [facility] BCP OB [address] [facility] [place] [address] Jayla Leiva PA [address] [facility] [place] [address] documented as of this encounter Visit Diagnoses Not on filedocumented in this encounter Care Teams Clinical Marketing Manager Relationship Specialty Start Date End Date Alberto Mayes MD [address] [facility] [address] [place] [address] PCP - General 05/02/23 Paloma Vazquez DO [address] [facility] [address] [place] [address] Referring Physician Obstetrics and Gynecology 04/25/23 documented as of this encounter
--- OUTSIDE RECORDS SUMMARY | 2024-11-05 19:08 | XMS_ITS | Clinical Summary ---
Author Organization [facility] Address [facility] [place] [address] Care Team Providers Care Lawn Specialist Name Role Phone Alberto Mayes MD Primary Care Provider [phone] Allergies Active Allergy Reactions Criticality Noted Date Comments Ciprofloxacin GI Intolerance Low 08/03/2018 Pt states projectile vomiting. Medications norethindrone-et hinyl estradiol-iron (MICROGESTIN FE1.5/30) 1.5 mg-30 mcg (21)/75 mg (7) tablet Take 1 (one) tablet by mouth daily . 28 tablet 11 08/15/2018 Active Active Problems No known active problems Family History Medical History Relation Comments Arthritis Father Hypertension Father Diabetes Mother Relation Status Comments Father Mother Social History Tobacco Use Types Packs/Day Years Used Date Smoking Tobacco: Never Smokeless Tobacco: Never Alcohol Use Standard Drinks/Week Comments Never 0 (1 standard drink = 0.6 oz pur e alcohol) AUDIT-C Answer Date Recorded Frequency of Alcohol Consumption Never 08/03/2018 Average Number of Drinks Not on file 019 Frequency of Binge Drinking Not on file 07/14 Comments No Sex and Gender Information Value Date Recorded Sex Assigned at Not on file Legal Sex Female 11:38 AM EST Gender Identity Female 08/03/2018 1:23 PM EDT Sexual Orientation Straight 08/03/2018 1: 23 PM EDT Last Filed Vital Signs Vital Sign Reading Time Taken Comments Blood Pressure 110/70 08/15/2018 3:04 PM EDT Pulse 64 08/15/2018 3:04 PM EDT Temperature 36.4 C (97.5 F) 08/15/2018 3:04 PM EDT Respiratory Rate 13 08/15/2018 3:04 PM EDT Oxygen Saturation - - Inhaled Oxygen Concentration - - Weight 59.8 kg (131 lb 12.8 oz) 08/15/2018 3:04 PM EDT Height 163.2 cm (5' 4.25 ) 08/15/2018 3:04 PM ED T Body Mass Index 22.45 08/15/2018 3:04 PM EDT Plan of Treatment Health Maintenance Due Date Last Done Comments Wellness Visit 2001 Depression Screening/Follow- Up (PHQ-2/9) 2010 HIV Screening 2013 Hepatitis C Screening 02/07/2016 Pap Smear 2019 Tetanus: Every 10yrs 12/24/2019 12/23/2009 COVID-19 Vaccine (2023-06 5 season) 2024 Influenza Vaccine (Season Ended) 2025 03/18/20 17 Pneumococcal Vaccine: Ped or At-Risk Aged Out No longer eligible b ased on patient's age to complete this topic Insurance [employer] BLUE/PREF/HMO/PPO [employer] BLUE/PREF/HMO/PPO Care Teams Lawn Specialist Relationship Specialty Start Date End Date Alberto Mayes MD [address] [place] [address] PCP - General Family Medicine 08/03/18
--- OUTSIDE RECORDS SUMMARY | 2024-11-05 19:08 | XMS_ITS | Encounter Summary ---
Author Organization [facility] Address [address] [place] [address] Care Team Providers Care Machinist Set Up Name Role Phone Paloma Vazquez DO Unavailable [phone] Alberto Mayes MD Primary Care Provider Encounter Details Date Type Department Care Team (Late st Contact Info) Description 01/01/2024 Abstract [facility] BCP OB [address] [place] [address] Jack Woods [address] [place], [facility]11 Social History Tobacco Use Types Packs/Day Years [...] Routine [facility] BCP OB [address] [place] [address] Jayla Leiva PA [address] [place], [facility]11 documented as of this encounter Visit Diagnoses Not on filedocumented in this encounter Care Teams Machinist Set Up Relationship Specialty Start Date End Date Alberto Mayes MD [address] [facility] [address] [place] [address] PCP - General 05/02/23 Paloma Vazquez DO [address] [facility] [address] [place] [address] Referring Physician Obstetrics and Gynecology 04/25/23 documented as of this encounter
--- OUTSIDE RECORDS SUMMARY | 2024-11-05 19:08 | XMS_ITS | Encounter Summary ---
Author Organization [facility] [employer] [facility] Address [id number] [address] [place] [address] Care Team Providers Care Drug Room Clerk Name Role Phone Unavailable Primary Care Provider Unavailabl e Encounter Details Date Type Department Care Team (Late Contact Info) Description 10/04/2024 Orders Only Maternal- Medicine at [facility] [address] [facility] [place] [phone] Ref Prov, [place] [address] Social History Tobacco Use Types Packs/Day Years Used Date Smoking Tobacco: Never Alcohol Use Standard Drinks/Week Comments Never 0 (1 standard drink = 0.6 oz pur e alcohol) Estimated Date of Delivery Comme nts Yes 04/29/2025 Based on Ultraso und Sex and Gender Information Value Date Recorded Sex Assigned at Not on file Legal Sex Female 2:00 PM EDT Gender Identity Not on file Sexual Orientation Not on file documented as of this encounter Plan of Treatment Upcoming Encounters Date Type Department Care Team (Late Contact Info) Description 11/12/2024 8:45 AM EDT Appointment [facility] US Imaging [address] [place] [phone] 11/12/2024 10:00 AM EDT Office Visit Maternal- Medicine at [facility] [address] [place] [phone] Samantha Peres MD [address] 1[address] [place] [address] documented as of this encounter Procedures Procedure Name Priority Date/Time Associated Diagnosis Comments ULTRASOUND OFFICE Routine 10/04/2024 2:50 PM EDT ULTRASOUND OFFICE Routine 10/04/2024 2:48 PM EDT documented in this encounter Results * Ultrasound - Office (10/04/2024 2:50 PM EDT) Anatomical Region Laterality Modality AMB Ultrasound us Not In System Ref Prov IMG US ORDERABLES Final R esult * Ultrasound - Office (10/04/2024 2:48 PM EDT) Anatomical Region Laterality Modality AMB Ultrasound us Not In System Ref Prov IMG US ORDERABLES Final R esult documented in this encounter Visit Diagnoses Not on filedocumented in this encounter
--- OUTSIDE RECORDS SUMMARY | 2024-11-05 19:08 | XMS_ITS | Encounter Summary ---
Author Organization [facility] Address [address] [place] [address] Care Team Providers Care Building Architect Name Role Phone Paloma Vazquez DO Unavailable [phone] Alberto Mayes MD Primary Care Provider Encounter Details Date Type Department Care Team (Late st Contact Info) Description 12/11/2023 Abstract [facility] [address] [place] [address] Jack Woods [facility] [address] Zia Stephenson, [facility]11 Social History Tobacco Use Types [...] [place] [address] Jayla Leiva PA [address] [place], [facility]11 documented as of this encounter Visit Diagnoses Not on filedocumented in this encounter Care Teams Building Architect Relationship Specialty Start Date End Date Alberto Mayes MD [address] [facility] [address] [place] [address] PCP - General 05/02/23 Paloma Vazquez DO [address] [facility] [address] [place] [address] Referring Physician Obstetrics and Gynecology 04/25/23 documented as of this encounter
--- OUTSIDE RECORDS SUMMARY | 2024-11-05 19:08 | XMS_ITS | Clinical Summary ---
Author Organization [employer] [facility] Address [id number] [address] [place] [address] Care Team Providers Care Camp Maintenance Supervisor Name Role Phone Unavailable Primary Care Provider Unavailabl e Allergies Active Allergy Reactions Criticality Noted Date Comments Cephalexin Nausea And Vomiting 10/04/2024 Ciprofloxacin Vomiting 10/04/2024 PROJECTILE VOMITING Prednisone Nausea And Vomiting 10/04/2024 Medications ondansetron (ZOFRAN) 4 mg tablet Take 1 tablet (4 mg total) by mouth every 8 (eight) hours as needed for nausea or vomiting. Active aspirin 81 mg chewable tablet Chew 1 tablet (81 mg total) and swallow in the morning. Active omeprazole (PriLOSEC) 20 mg capsule Take 1 capsule (20 mg total) by mouth in the morning. Active progesterone (PROMETRIUM) 200 mg capsule Take 1 capsule (200 mg total) by mouth in the morning. Active PNV 56-bxsu-xhjewka olate-dha 29 mg iron-1 mg -350 mg comb pack,tablet DR,capsule DR Take 1 tablet by mouth in the morning. Active Encounters Date Type Department Care Team Description 10/04/2024 Orders Only Maternal- Medicine at [facility] [address] [place] [phone] Ref Prov, Not In System 10/04/2024 Abstract Maternal- Medicine at [facility] [address] [place] [phone] Samantha Peres MD from Last 3 Months Family History Medical History Relation Name Comments Hypertension Father Heart disease Maternal Grandfather Diabetes Maternal Grandmother Kidney disease Paternal Grandfather Liver disease Paternal Grandfather Heart disease Paternal Grandmother Relation Name Status Comments Father Maternal Grandfather Maternal Grandmother Paternal Grandfather Paternal Grandmother Social History Tobacco Use Types Packs/Day Years Used Date Smoking Tobacco: Never Tobacco Cessation:Counseling Given: Not Answered Alcohol Use Standard Drinks/Week Comments Never 0 (1 standard drink = 0.6 oz pur e alcohol) Estimated Date of Delivery Comme nts Yes 04/29/2025 Based on Ultraso und Sex and Gender Information Value Date Recorded Sex Assigned at Not on file Legal Sex Female 2:00 PM EDT Gender Identity Not on file Sexual Orientation Not on file Last Filed Vital Signs Vital Sign Reading Time Taken Comments Blood Pressure - - Pulse - - Temperature - - Respiratory Rate - - Oxygen Saturation - - Inhaled Oxygen Concentration - - Weight - - Height 167.6 cm (5' 6 ) 10/04/2024 3:09 PM EDT Body Mass Index - - Plan of Treatment Upcoming Encounters Date Type Department Care Team (Late st Contact Info) Description 11/12/2024 8:45 AM EDT Appointment [facility] - [facility] US Imaging [address] [place] [phone] 11/12/2024 10:00 AM EDT Office Visit Maternal- Medicine at [facility] [address] [place] [phone] Samantha Peres MD [address] [facility] 1st [place] [address] Health Maintenance Due Date Last Done Comments Depression Screening 2010 Tobacco Screening 2010 Adult BMI Screening 02/07/2016 Pap Smear 2019 DTaP,Tdap and Td Vaccines (2 - Td or Tdap) 12/24/2019 12/23/2009 Influenza Vaccine 01/13/2025 03/18/2017 Medical Devices Not on file Procedures Procedure Name Priority Date/Time Associated Diagnosis Comments ULTRASOUND OFFICE Routine 10/04/2024 2:5 0 PM EDT ULTRASOUND OFFICE Routine 10/04/2024 2:4 8 PM EDT DRUG SCREEN, URINE Routine 09/24/2024 HEMOGLOBIN A1C Routine 09/24/2024 CBC (NO DIFF) Routine 09/24/2024 CBC AND DIFFERENTIAL Routine 09/24/2024 CBC (NO DIFF) Routine 09/24/2024 from Last 3 Months Results * Ultrasound - Office (10/04/2024 2:50 PM EDT) Only the most recent of2 resultswithin the time period is included. Anatomical Region Laterality Modality AMB Ultrasound us Not In System Ref Prov IMG US ORDERABLES Final R esult * Drug Screen, Urine (09/24/2024) Methadone NEGATIVE MANUALLY TRANSCRIBED RESULTS Opiates NEGATIVE MANUALLY TRANSCRIBED RESULTS Amphetamine/Methamp hetamine NEGATIVE MANUALLY TRANSCRIBED RESULTS Cocaine Metabolite NEGATIVE M ANUALLY TRANSCRIBED RESULTS Phencyclidine NEGATIVE MANUAL LY TRANSCRIBED RESULTS Thc Marijuana, Urine NEGATIVE MANUALLY TRANSCRIBED RESULTS Oxycodone NEGATIVE MANUALLY TRANSCRIBED RESULTS Barbiturates NEGATIVE MANUALL Y TRANSCRIBED RESULTS Benzodiazepines NEGATIVE MANU ALLY TRANSCRIBED RESULTS Urine us Not In System Ref Prov URINE ORDERABLES Final Re sult Performing Organization Address City/[facility]/ZIP Co de Phone Number MANUALLY TRANSCRIBED RESULTS * CBC without diff (09/24/2024) Only the most recent of2 resultswithin the time period is included. Platelets 281 MANUALLY TRANSCRIBED RESULTS Blood Venous blood / Unknown us Not In System Ref Prov LAB BLOOD ORDERABLES Ella l Result MANUALLY TRANSCRIBED RESULTS * CBC and differential (09/24/2024) Neutrophils Absolute (A) 6.80 1.30 - 8.30 10*3/uL MANUALLY TRANSCRIBED RESULTS Auto WBC 9.2 3.3 - 10.0 10*3/mL MANUALLY TRANSCRIBED RESULTS Blood Samatnha Peres MD LAB BLOOD ORDERABLES Final Resul t MANUALLY TRANSCRIBED RESULTS * Hemoglobin A1c (09/24/2024) Hemoglobin A1C 5.1 4.0 - 6.0 % MANUALLY TRANSCRIBED RESULTS Blood Venous blood / Unknown Samantha Peres MD LAB BLOOD ORDERABLES Final Resul t MANUALLY TRANSCRIBED RESULTS from Last 3 Months Insurance [address] [place] [address] [facility]
--- OUTSIDE RECORDS SUMMARY | 2024-11-05 19:08 | XMS_ITS | Clinical Summary ---
Author Organization [facility] Address [address] [place] [address] Care Team Providers Care Fermentation Engineer Name Role Phone Unavailable Primary Care Provider Unavailabl e Allergies Active Allergy Reactions Criticality Noted Date Comments Cephalexin Nausea And Vomiting Low 02/01/2019 Prednisone Nausea And Vomiting Low 02/01/2019 Medications norethindrone-et hinyl estradiol-iron (AKIL FE .10/11) 1.5-30 MG-MCG tablet Take 1 tablet by mouth daily Active Social History Tobacco Use Types Packs/Day Years Used Date Smoking Tobacco: Never Smokeless Tobacco: Never Alcohol Use Standard Drinks/Week Comments Not Currently 0 (1 standard drink = 0.6 oz pur e alcohol) Comments No Sex and Gender Information Value Date Recorded Sex Assigned at Not on file Legal Sex Female 4:01 AM EDT Gender Identity Not on file Sexual Orientation Not on file Last Filed Vital Signs Vital Sign Reading Time Taken Comments Blood Pressure 107/64 02/01/2019 6:41 AM EDT Pulse 64 02/01/2019 6:41 AM EDT Temperature 36.7 C (98 F) 02/01/2019 4:30 AM EDT Respiratory Rate 18 02/01/2019 4:30 AM EDT Oxygen Saturation 100% 02/01/2019 4:30 AM EDT Inhaled Oxygen Concentration - - Weight 58.9 kg (129 lb 14.4 oz) 02/01/2019 4:30 AM EDT Height - - Body Mass Index - - Plan of Treatment Not on file Insurance [facility]
--- OUTSIDE RECORDS SUMMARY | 2024-11-05 19:08 | XMS_ITS | Encounter Summary ---
Author Organization [facility] Address [address] [place] [address] Care Team Providers Care Animation Director Name Role Phone Paloma Vazquez DO Unavailable [phone] Alberto Mayes MD Primary Care Provider Encounter Details Date Type Department Care Team (Late st Contact Info) Description 11/05/2024 Bamboo flowsheet [facility] [address] [place] [address] Jack oWods [address] [place] [place], [place] [id number] Social History Tobacco Use Types Packs/Day Years [...] PM EDT Routine [facility] [address] [facility] [place] [address] Jayla Leiva PA [address] [place] [address] [place] [address] documented as of this encounter Visit Diagnoses Not on filedocumented in this encounter Care Teams Animation Director Relationship Specialty Start Date End Date Alberto Mayes MD [address] [facility] [address] [place] [address] PCP - General 05/02/23 Paloma Vazquez DO [address] [facility] [address] [place] [address] Referring Physician Obstetrics and Gynecology 04/25/23 documented as of this encounter
--- OUTSIDE RECORDS SUMMARY | 2024-11-05 19:08 | XMS_ITS | Encounter Summary ---
Author Organization [facility] Address [address] [place] [address] Care Team Providers Care Tailman Name Role Phone Paloma Vazquez DO Unavailable Alberto Mayes MD Primary Care Provider Encounter Details Date Type Department Care Team (Late st Contact Info) Description 12/06/2023 Abstract [facility] [address] [facility] [place] [address] oCrie Cavanaugh LPN [address] [place] [address] Social History Tobacco Use Types [...] PM EDT Routine [facility] [address] [facility] [place] [address] Jayla Leiva PA [address] [facility] [place] [address] documented as of this encounter Visit Diagnoses Not on filedocumented in this encounter Care Teams Tailman Relationship Specialty Start Date End Date Alberto Mayes MD [address] [facility] [address] [place] [address] PCP - General 05/02/23 Paloma Vazquez DO [address] [place] [address] Referring Physician Obstetrics and Gynecology 04/25/23 documented as of this encounter
--- OUTSIDE RECORDS SUMMARY | 2024-11-05 19:08 | XMS_ITS | Encounter Summary ---
Author Organization [facility] Address [address] [place] [address] Care Team Providers Care Manager Package Name Role Phone Paloma Vazquez DO Unavailable Alberto Mayes MD Primary Care Provider [phone] Encounter Details Date Type Department Care Team (Late st Contact Info) Description 12/08/2023 Abstract [facility] OB [address] [facility] [place] [address] Corie Cavanaugh LPN [address] [place] [address] Social History Tobacco Use Types [...] Routine [facility] OB [address] [facility] [place] [address] Jayla Leiva PA [address] [facility] [place] [address] documented as of this encounter Visit Diagnoses Not on filedocumented in this encounter Care Teams Manager Package Relationship Specialty Start Date End Date Alberto Mayes MD [address] [facility] [address] [place] [address] PCP - General 05/02/23 Paloma Vazquez DO [address] [facility] [address] [place] [address] Referring Physician Obstetrics and Gynecology 04/25/23 documented as of this encounter
--- OUTSIDE RECORDS SUMMARY | 2024-11-05 19:08 | XMS_ITS ---
Author Organization [employer] (ClinicalSummary Clone) Address Unknown Care Team Providers Care Drum Sealer Name Role Phone Unavailable Primary Care Physician Unavailab le Results * [UNITY] ANEUPLOIDY NIPT Performed by: [employer] Component Value Range Date Fraction 3.2% 10/03/2024 06 :42 am UTC Rh(D) NIPT RhD DETECTED 10/03/2024 06:4 2 am UTC Sex Chromosome Aneuploidy NOT DETECTED 06:42 am UTC Monosomy X LOW RISK <1 in 10,000 2024 06:42 am UTC Trisomy 13 LOW RISK <1 in 10,000 2024 06:42 am UTC Trisomy 18 LOW RISK <1 in 10,000 2024 06:42 am UTC Trisomy 21 LOW RISK <1 in 10,000 2024 06:42 am UTC Sex MALE 10/03/2024 06:4 2 am UTC Gestation FARRAR 10/04/19 06:42 am UTC For detailed report, see PDF See PDF 10/03/2024 06:42 am UTC 10/03/2024 06:4 2 am UT Social History Observation Value Start Date End Date
--- OUTSIDE RECORDS SUMMARY | 2024-11-05 19:08 | XMS_ITS | Encounter Summary ---
Author Organization [facility] Address [address] [place] [address] Care Team Providers Care Certified Executive Chef Name Role Phone Paloma Vazquez DO Unavailable [phone] Alberto Mayes MD Primary Care Provider Encounter Details Date Type Department Care Team (Late st Contact Info) Description 01/01/2024 Abstract [facility] OB [address] [place] [address] Jack Woods [address] Zia Stephenson, [facility] [address] Social History Tobacco Use Types Packs/Day Years [...] Routine [facility] B[facility] OB [address] [place] [address] Jayla Leiva PA [address] [place], [facility] [address] documented as of this encounter Visit Diagnoses Not on filedocumented in this encounter Care Teams Certified Executive Chef Relationship Specialty Start Date End Date Alberto Mayes MD [address] [place] [address] PCP - General 05/02/23 Paloma Vazquez DO [address] [place] [address] Referring Physician Obstetrics and Gynecology 04/25/23 documented as of this encounter
--- OUTSIDE RECORDS SUMMARY | 2024-11-05 19:08 | XMS_ITS | Clinical Summary ---
Author Organization [facility] Address [address] [place] [address] Care Team Providers Care Cell Tender Helper Name Role Phone Paloma Vazquez DO Unavailable [phone] Alberto Mayes MD Primary Care Provider Allergies Active Allergy Reactions Criticality Noted Date Comments Cephalexin Nausea And Vomiting Low 02/01/2019 Other Reaction(s): severe vomiting Other Reaction(s): Vomiting Ciprofloxacin Low 08/03/2018 Other Reaction(s): GI Intolerance Pt states projectile vomiting. Other Reaction(s): Vomiting PROJECTILE VOMITING Prednisone Nausea And Vomiting Low 02/01/2019 Other Reaction(s): severe vomiting Other Reaction(s): Vomiting Medications aspirin 81 MG oral suspension 10/14/19 24 Active Vit w/Fe-Methylfol- FA (PNV PO) Active ondansetron (Zofran) 4 MG tabletIndicatio ns:Gastroesopha geal reflux in (HHS-HCC),Nause a and vomiting during (HHS-HCC) Take 1 tablet (4 mg) by mouth every 6 (six) hours if needed for nausea or vomiting for up to 30 doses Take 1 tablet by mouth every 6 hours as needed for nausea. 30 tablet 3 09/20/19 25 Active Doxylamine Succinate, Sleep, (UNISOM PO) Take by mouth Active pyridoxine (Vitamin B-6) 25 MG tablet Take 25 mg by mouth Daily Active docusate sodium (Colace) 100 MG capsule Take 100 mg by mouth Daily Active omeprazole (PriLOSEC) [address] capsuleIndicati ons:Gastroesoph ageal Reflux Disease,Heartbu rn Take 1 capsule (40 mg) by mouth in the morning. Take before meals. Do not crush or chew. 30 capsule 3 10/09/19 25 025 Active omeprazole (PriLOSEC) [address] capsuleIndicati ons:Gastroesoph ageal Reflux Disease,Heartbu rn Take 1 capsule (20 mg) by mouth in the morning. Take before meals. Do not crush or chew. 30 capsule 3 09/20/19 25 025 Discontinu ed(Reorder ) bisacodyl (Dulcolax) 10 MG suppositoryIndi cations:Other constipation Insert 1 suppository (10 mg) into the rectum Daily for 4 days 4 suppository 10/09/19 25 025 Encounters Date Type Department Care Team Description 11/05/2024 1:40 PM EDT Routine [facility] [address] [place] [id number] Jack Woods, Well woman exam with routine gynecological exam; Second trimester ([facility]); 15 weeks gestation of ([facility]); Vaginal discharge; STD exposure 11/05/2024 Bamboo flowsheet [address] [place] [address] Jack Woods, 11/04/2024 Travel 10/08/2024 2:30 PM EDT Routine [facility] [address] [place] [address] Jack Woods, 11 weeks gestation of ([facility]); First trimester ([facility]); Other constipation; Gastroesophageal reflux in ([facility]) 10/08/2024 Bamboo flowsheet [address] [place] [address] Jack Woods, 10/03/2024 Abstract [facility] [address] [place] [address] Jack Woods, DO 09/25/2024 Abstract [facility] [address] [place] [address] Jack Woods, DO 09/24/2024 Abstract [facility] [address] [place] [address] Jack Woods, DO 09/24/2024 Clinisync Result Encounter [facility] External Department Unsolicited Jack Woods, DO 09/23/2024 Telephone [facility] [address] [place] [address] Kelley Sepulveda, BRIANA 09/19/2024 1:30 PM EDT Initial [facility] [address] [place] [address] GA: 8w2d 09/19/2024 1:00 PM EDT Ancillary Procedure [facility] [address] [place] [address] Missed menses 09/18/2024 Travel 09/05/20[address]ill [facility] [address] [place] [address] Kelley Sepulveda, BRIANA History of miscarriage 08/28/2024 8:30 AM EDT Ancillary Procedure [facility] [address] [place] [address] Missed menses 08/26/2024 Telephone [facility] [address] [place] [address] Kelley Sepulveda, BRIANA 08/26/2024 Clinisync Result Encounter [facility] External Department Unsolicited Jack Woods, DO 08/26/2024 [address]phone [facility] [address] [place] [address] Kelley Sepulveda, RESEARCH PHYSICIST 08/24/2024 Clinisync Result Encounter [facility] External Department Unsolicited Jack Woods, DO 08/23/2024 Telephone [facility] [address] [place] [address] Gentile Bianca, [place] 08/23/2024 Telephone [facility] [address] [place] [address] [place] [address] GentileBianca MA 08/22/2024 Clinisync Result Encounter [facility] External Department Unsolicited Jack Woods, DO 08/21/2024 [address]phone [facility] [address] [place] [address] Gentile Bianca, [place] 08/20/2024 Clinisync Result Encounter [facility] External Department Unsolicited Jack Woods, DO 08/17/2024 Clinisync Result Encounter [facility] External Department Unsolicited Jack Woods, 08/15/2024 Clinisync Result Encounter [facility] External Department Unsolicited Jack Woods, DO from Last 3 Months Family History Medical History Relation Name Comments Hypertension Father Heart disease Maternal Grandfather Diabetes Maternal Grandmother Kidney failure Paternal Grandfather liver failure Paternal Grandfather Heart disease Paternal Grandmother Relation Name Status Comments Father Alive Maternal Grandfather Maternal Grandmother Mother Alive Paternal Grandfather Paternal Grandmother Social History Tobacco [...] oz) 11/05/2024 2:10 P M EDT Height 167.6 cm (5' 6 ) 2024 1:52 PM EDT Body Mass Index 27.02 2024 1:52 PM EDT Plan of Treatment Upcoming Encounters Date Type Department Care Team (Late st Contact Info) Description 12/03/2024 1:30 PM EDT Routine [facility] [address] [place] [address] Jayla Leiva PA [address] [facility] [address] Procedures Procedure Name Priority Date/Time Associated Diagnosis Comments POCT URINALYSIS DIPSTICK Routine 11/05/2024 2:15 PM EDT Second trimester ([facility]HS-HCC) 15 weeks gestation of ([facility]) POCT URINALYSIS DIPSTICK Routine 10/08/2024 2:43 PM EDT 11 weeks gestation of ([facility]HS-HCC) First trimester ([facility]) HBSAG SCREEN Routine 09/24/2024 10:25 AM EDT RAPID PLASMA REAGIN, QUANT Routine 09/24/2024 10:25 AM EDT HCV ANTIBODY RFX TO QUANT PCR Routine 09/24/2024 10:25 AM EDT ALL RUBELLA IGG AB Routine 09/24/2024 10 :25 AM EDT HIV AB/P24 AG WITH REFLEX Routine 09/24/2024 10:25 AM EDT BOX TEST Routine 09/24/2024 10:25 AM EDT ALL TYPE AND SCREEN Routine 09/24/2024 1 0:25 AM EDT ALL CBC WITH AUTO DIFF Routine 09/24/2024 10:25 AM EDT MLR HEMOGLOBIN A1C Routine 09/24/2024 10 :25 AM EDT TBH DRUG SCREEN RAPID (URINE) Routine 09/24/2024 10:18 AM EDT POCT URINALYSIS DIPSTICK Routine 09/19/2024 3:23 PM EDT Missed menses POCT , URINE Routine 09/19/2024 3:23 PM EDT Missed menses US OB TRANSVAGINAL Routine 09/19/2024 1: 56 PM EDT Missed menses US OB TRANSVAGINAL Routine 08/28/2024 9: 09 AM EDT Missed menses TBH PREG QUANT HCG Routine 08/26/2024 1 :28 PM EDT ALL PROGESTERONE Routine 08/24/2024 7:06 AM EDT TBH PREG QUANT HCG Routine 08/24/2024 7: 06 AM EDT TBH PREG QUANT HCG Routine 08/22/2024 7: 50 AM EDT TBH PREG QUANT HCG Routine 08/20/2024 7: 41 AM EDT TBH PREG QUANT HCG Routine 08/17/2024 8: 35 AM EDT TBH PREG QUANT HCG Routine 08/15/2024 7: 50 AM EDT from Last 3 Months Results * POCT urinalysis dipstick manually resulted (11/05/2024 2:15 PM EDT) Only the most recent of3 resultswithin the time period is included. Color, UA Yellow Clarity, UA Clear Glucose, [...] Positive Urine 11/05/2024 2:15 PM EDT Jack Peggy DO POINT OF CARE TEST ENTER/EDIT OR DERABLES Final Result * BOX TEST (09/24/2024 10:25 AM EDT) [facility] BOX TEST SENT OUT [facility] BOX1 [facility] BOX2 09/24/24 [facility] 09/24/2024 10:2 5 AM EDT 09/24/2024 10:30 AM EDT Narrative CLINISYNY - 09/24/2024 2:09 PM EDT [place] [facility] Jack Peggy DO LAB BLOOD ORDERABLES Final Resul t Performing Organization Address [facility] Co de Phone Number [facility] * HBSAG SCREEN (09/24/2024 10:25 AM EDT) [facility] HBSAG SCREEN Negative Negative [facility] Comment: Performed at: [address] [id number] Marketing Communications Manager: Jordin Rao PhD, Phone: [phone] 09/24/2024 10:2 5 AM EDT 09/24/2024 10:30 AM EDT Narrative CLINISYNC - 09/25/2024 12:10 PM EDT Jack Peggy DO LAB BLOOD ORDERABLES Final Resul t Performing Organization Address City/[facility] Co de Phone Number [facility] * RAPID PLASMA REAGIN, QUANT (09/24/2024 10:25 AM EDT) [facility] RAPID PLASMA REAGIN, QUANT Non Reactive NonRea<1: 1 titer [facility] Comment: Please Note: This test does not meet current guidelines for screening and diagnosis of syphilis. This test is intended for following treatment response in patients being treated for syphilis infection. To screen for syphilis infection, a reflex cascade that includes both RPR and a treponema-specific assay should be utilized, such as Treponema pallidum (Syphilis) Screening [facility] (980151) or Rapid Plasma Reagin (RPR) Test With Reflex to Quantitative RPR and Confirmatory Treponema pallidum Antibodies (771619). Performed at: [address] [id number] Marketing Communications Manager: Jordin Rao PhD, Phone: [phone] 09/24/2024 10:2 5 AM EDT 09/24/2024 10:30 AM EDT Narrative CLINISYNY - 09/25/2024 12:10 PM EDT Jack Peggy DO LAB BLOOD ORDERABLES Final Resul t Performing Organization Address [facility]/ZIP Co de Phone Number [facility] * HIV AB/P24 AG WITH REFLEX (09/24/2024 10:25 AM EDT) [facility] HIV AB/P24 AG SCREEN Non Reactive Non Reactive [facility] Comment: HIV-1/HIV-2 antibodies and HIV-1 p24 antigen were NOT detected. There is no laboratory evidence of HIV infection. HIV Negative Performed at: [address] [id number] Marketing Communications Manager: Jordin Rao PhD, Phone: [phone] 09/24/2024 10:2 5 AM EDT 09/24/2024 10:30 AM EDT Narrative CLINISYNC - 09/25/2024 5:07 AM EDT us Jack Peggy DO LAB BLOOD ORDERABLES Final Resul t Performing Organization Address [facility]/ZIP Co de Phone Number [facility] * HCV ANTIBODY RFX TO QUANT PCR (09/24/2024 10:25 AM EDT) HCV AB Non Reactive Non Reactive TB INTERPRETATION: Comment . TB Comment: Not infected with HCV unless early or acute infection is suspected (which may be delayed in an immunocompromised individual), or other evidence exists to indicate HCV infection. Performed at: - [facility] [id number] Marketing Communications Manager: Jordin Rao PhD, Phone: [phone] 09/24/2024 10:2 5 AM EDT 09/24/2024 10:30 AM EDT Narrative CLINISYNC - 09/25/2024 8:09 AM EDT Jack Peggy DO LAB BLOOD ORDERABLES Final Resul t Performing Organization Address [facility] Co de Phone Number [facility] * MLR HEMOGLOBIN A1C (09/24/2024 10:25 AM EDT) Pathologist [facility] GLYCOHEMOGLOBIN A1C 5.1 4.5 - 6.2 % [facility] Comment: ADA RECOMMENDED LIMIT 4.0 - 6.0 ADA THERAPEUTIC TARGET < 7.0 ACTION SUGGESTED > 7.0 ESTIMATED AVERAGE GLUCOSE 100 mg/dL TB 09/24/2024 10:2 5 AM EDT 09/24/2024 10:30 AM EDT Narrative CLINISYNC - 09/24/2024 10:49 AM EDT Jack Peggy DO CLINISYNC Final Result Performing Organization Address City/[facility]/ZIP Co de Phone Number [facility] * ALL TYPE AND SCREEN (09/24/2024 10:25 AM EDT) BLOOD TYPE O Positive TBH ANTIBODY SCREEN NEGATIVE TB 09/24/2024 10:2 5 AM EDT 09/24/2024 10:30 AM EDT Narrative CLINISYNC - 09/24/2024 12:08 PM EDT [facility] , Jack Peggy DO CLINISYNC Final Result [facility] * ALL RUBELLA IGG AB (09/24/2024 10:25 AM EDT) [facility] RUBELLA ANTIBODIES, IGG 5.37 Immune >0.99 index [facility]H Comment: Non-immune <0.90 Equivocal 0.90 - 0.99 Immune >0.99 Performed at: - [facility] [id number] Marketing Communications Manager: Jordin Rao PhD, Phone: [phone] 09/24/2024 10:2 5 AM EDT 09/24/2024 10:30 AM EDT Narrative CLINISYNC - 09/25/2024 8:09 AM EDT us Jack Peggy DO CLINISYNC Final Result Performing Organization Address City/[facility]/ZIP Co de Phone Number [facility] * (ABNORMAL) ALL CBC WITH AUTO DIFF (09/24/2024 10:25 AM EDT) [facility] WBC 9.2 4.0 - 11.0 10 3/uL TBH TB RBC 4.33 4.20 - 5.40 10 6/uL TBH TB HGB 13.5 12.0 - 16.0 g/dL TB TB HCT 38.3 36.0 - 48.0 % TB TB MCV 88.5 81.0 - 99.0 fL TB TB MCH 31.2 26.7 - 34.0 pg TBH TB MCHC 35.2 29.9 - 35.2 g/dL TB TB RDW 11.8 11.0 - 15.0 % TBH TB PLT 281 150 - 450 10 3/uL TB TB MPV 10.1 9.5 - 13.5 fL TB NEUTROPHILS PERCENT AUTO 73.9 43.0 - 75.0 % TBH LYMPHOCYTES PERCENT AUTO 19.3(L) 20.5 - 60.0 % TBH MONOCYTES PERCENT AUTO 5.2 1.7 - 12.0 % TBH TBH EO % 0.8(L) 0.9 - 7.0 % TBH BASOPHILS PERCENT AUTO 0.4 0.2 - 2.0 % TBH IMMATURE GRANULOCYTES PCT AUTO 0.4 0.0 - 0.5 % TBH NEUTROPHILS ABSOLUTE AUTO 6.8(H) 1.4 - 6.5 10 3/uL TBH LYMPHOCYTES ABSOLUTE AUTO 1.8 1.2 - 3.8 10 3/uL TBH MONOCYTES ABSOLUTE AUTO 0.5 0.3 - 0.8 10 3/uL TBH TBH EO # 0.1 0.0 - 0.7 10 3/uL TBH BASOPHILS ABSOLUTE AUTO 0.0 0.0 - 0.1 10 3/uL TBH IMMATURE GRANULOCYTES ABS AUTO 0.04(H) 0.00 - 0.03 10 3/uL TBH 09/24/2024 10:2 5 AM EDT 09/24/2024 10:30 AM EDT Narrative CLINISYNC - 09/24/2024 11:12 AM EDT Jack Woods DO CLINISYNC Final Result [facility] * TB DRUG SCREEN RAPID (URINE) (09/24/2024 10:18 AM EDT) CANNABINOID SCREEN URINE NEGATIVE NEGATIVE TBH PHENCYCLIDINE SCREEN URINE NEGATIVE NEGATIVE TBH COCAINE SCREEN URINE NEGATIVE NEGATIVE TBH METHAMPHETAMINES SCREEN URINE NEGATIVE NEGATIVE TBH OPIATE SCREEN URINE NEGATIVE NEGATIVE TBH AMPHETAMINE SCREEN URINE NEGATIVE NEGATIVE TBH BENZODIAZEPINES SCREEN URINE NEGATIVE NEGATIVE TBH TRICYCLIC ANTIDEPRESSANT URINE NEGATIVE NEGATIVE TBH METHADONE SCREEN URINE NEGATIVE NEGATIVE TBH BARBITURATES SCREEN URINE NEGATIVE NEGATIVE TBH OXYCODONE SCREEN URINE NEGATIVE NEGATIVE TBH BUPRENORPHINE SCREEN URINE NEGATIVE NEGATIVE TBH Comment: DRUG CLASS TEST SYSTEM CUT-OFF CONCENTRATIONS ARE FOLLOWS: AMP (Amphetamine): 500 ng/mL BAR (Barbiturates): 200 ng/mL BZO (Benzodiazepines): 150 ng/mL BUP (Buprenorphine): 10 ng/mL GORDY (Cocaine): 150 ng/mL mAMP (Methamphetamine): 500 ng/mL MTD (Methadone): 200 ng/mL OPI (Opiates): 100 ng/mL OXY (Oxycodone): 100 ng/mL PCP (Phencyclidine): 25 ng/mL THC (Cannabinoids): 50 ng/mL TCA (Trycyclic Antidepressants): 300 ng/mL 09/24/2024 10:1 8 AM EDT 09/24/2024 10:30 AM EDT Narrative RODRIGO - 09/24/2024 11:44 AM EDT us Jack Peggy DO CLINISYNC Final Result RODRIGO [facility] * (ABNORMAL) POCT , urine manually resulted (09/19/2024 3:23 PM EDT) Preg Test, Ur Positive Negative Urine 09/19/2024 3:23 PM EDT us Jack Peggy DO POINT OF CARE TEST ENTER/EDIT OR DERABLES Final Result * US OB transvaginal (09/19/2024 1:56 PM EDT) Only the most recent of2 resultswithin the time period is included. Anatomical Region Laterality Modality Body Ultrasound 09/22/2024 8:22 PM EDT Narrative 09/22/2024 8:22 PM EDT EXAM: US OB TRANSVAGINAL HISTORY: Dating/viability. LMP 07/23/2024. A2. Patient has known stage IV endometriosis affecting her ovaries. COMPARISON: U/S Ob 08/28/2024 TECHNIQUE: Two-dimensional transvaginal grayscale and color Doppler ultrasound imaging of the pelvis was performed. FINDINGS: The uterus demonstrates a normal homogeneous echotexture. There is a 2.5 x 1.7 x 1.7 cm intramural left fundal fibroid. A 0.7 cm intramural fibroid is visualized anterior to the gestational sac. The cervical os is closed. The right ovary is enlarged measuring 5.4 x 2.1 x 4.3 cm and demonstrates a heterogeneous echotexture without definite mass lesion. A 1.9 cm corpus luteal cyst is visualized within the right ovary. There is normal color Doppler flow. The left ovary is enlarged measuring 5.1 x 2.8 x 4.7 cm and demonstrates a heterogeneous echotexture. There is a 2.3 x 1.5 x 2.2 cm isoechoic lesion visualized, possibly representing an endometrioma. There is normal color Doppler flow. No fluid is present within the cul-de-sac. There is a single, live intrauterine gestation identified with a heart rate of 185 beats per minute and a crown-rump length measurement of 1.8 cm, correlating to a gestational age of 8 weeks 2 days (+/- 5 days). There is no subchorionic hemorrhage visualized. A yolk sac is visualized. IMPRESSION: 1. Single, live intrauterine gestation 8 weeks, 2 days by LMP. Today's ultrasound measurements correlate with a gestational age of 8 weeks 2 days (+/- 5 days). PORFIRIO by today's ultrasound is 04/29/2025. 2. Enlarged and heterogeneous bilateral ovaries with a 2.3 cm isoechoic left- sided lesion, possibly representing an endometrioma. 3. Right ovarian corpus luteal cyst. Interpreted by: Electronically signed by MARKIE CRAWFORD II, MD, PHD at 22-Sep-2024 08:21:31 PM [facility] Procedure Note Markie Crawford MD - 09/22/2024 EXAM: US OB TRANSVAGINAL HISTORY: Dating/viability. LMP 07/23/2024. A2. Patient has knownstage IV endometriosis affecting her ovaries. COMPARISON: U/S Ob 08/28/2024 TECHNIQUE: Two-dimensional transvaginal grayscale and color Dopplerultrasound imaging of the pelvis was performed. FINDINGS: The uterus demonstrates a normal homogeneous echotexture. There is a 2.5x 1.7 x 1.7 cm intramural left fundal fibroid. A 0.7 cm intramuralfibroid is visualized anterior to the gestational sac. The cervical os isclosed. The right ovary is enlarged measuring 5.4 x 2.1 x 4.3 cm and demonstratesa heterogeneous echotexture without definite mass lesion. A 1.9 cm corpusluteal cyst is visualized within the right ovary. There is normal colorDoppler flow. The left ovary is enlarged measuring 5.1 x 2.8 x 4.7 cm and demonstrates aheterogeneous echotexture. There is a 2.3 x 1.5 x 2.2 cm isoechoic lesionvisualized, possibly representing an endometrioma. There is normal colorDoppler flow. No fluid is present within the cul-de-sac. There is a single, live intrauterine gestation identified with a fetalheart rate of 185 beats per minute and a crown-rump length measurement of1.8 cm, correlating to a gestational age of 8 weeks 2 days (+/- 5 days).There is no subchorionic hemorrhage visualized. A yolk sac isvisualized. IMPRESSION: 1. Single, live intrauterine gestation 8 weeks, 2 days by LMP. Today'sultrasound measurements correlate with a gestational age of 8 weeks 2days (+/- 5 days). PORFIRIO by today's ultrasound is 04/29/2025. 2. Enlarged and heterogeneous bilateral ovaries with a 2.3 cm isoechoicleft- sided lesion, possibly representing an endometrioma. 3. Right ovarian corpus luteal cyst. Interpreted by: Electronically signed by MARKIE CRAWFORD II, MD, PHD [id number] 08:21:31 PM [facility] us Jack Peggy DO IMG OB US PROCEDURES Final Resul t * TBH PREG QUANT HCG (08/26/2024 1:28 PM EDT) Only the most recent of6 resultswithin the time period is included. [facility] HCG QUANTITATIVE 2,576 mIU/mL TBH Comment: 5-50 0.2-1 WEEK 50-500 1-2 WEEKS 100-5,000 2-3 WEEKS 500-10,000 3-4 WEEKS 1,000-50,000 4-5 WEEKS 10,000-100,000 5-6 WEEKS 15,000-200,000 6-8 WEEKS 10,000-100,000 2-3 MONTHS 08/26/2024 1:28 PM EDT 08/26/2024 1:28 PM EDT Narrative CLINISYNC - 08/26/2024 2:34 PM EDT us Jack Peggy DO CLINISYNC Final Result [facility] * ALL PROGESTERONE (08/24/2024 7:06 AM EDT) PROGESTERONE 55.2 . ng/mL TBH Comment: Follicular phase 0.1 - 0.9 Luteal phase 1.8 - 23.9 Ovulation phase 0.1 - 12.0 First trimester 11.0 - 44.3 Second trimester 25.4 - 83.3 Third trimester 58.7 - 214.0 Postmenopausal 0.0 - 0.1 Performed at: - [facility] [id number] Marketing Communications Manager: Jordin Rao PhD, Phone: [phone] 08/24/2024 7:06 AM EDT 08/24/2024 7:09 AM EDT Narrative CLINISYNC - 08/25/2024 9:08 AM EDT Jack Peggy DO CLINISYNC Final Result CLINISYNC TB from Last 3 Months Insurance [facility] [address] [id number] BCBS Care Teams Cell Tender Helper Relationship Specialty Start Date End Date Alberto Mayes MD [address] [place] [address] PCP - General 05/02/23 Paloma Vazquez DO [address] [place] [address] Referring Physician Obstetrics and Gynecology 04/25/23
--- OUTSIDE RECORDS SUMMARY | 2024-11-05 19:08 | XMS_ITS | Encounter Summary ---
Author Organization [facility] Address [address] [place] [address] Care Team Providers Care Computer Numerical Control Machinist Name Role Phone Paloma Vazquez DO Unavailable [phone] Alberto Mayes MD Primary Care Provider Encounter Details Date Type Department Care Team (Late st Contact Info) Description 12/06/2023 Abstract [facility] BCP OB [address] [facility] [address] [place] [address] Corie Cavanaugh LPN [address] [place] [address] Social History Tobacco Use Types [...] PM EDT Routine [facility] BCP OB [address] [facility] [place] [address] Jayla Leiva PA [address] [facility] [place] [address] documented as of this encounter Visit Diagnoses Not on filedocumented in this encounter Care Teams Computer Numerical Control Machinist Relationship Specialty Start Date End Date Alberto Mayes MD [address] [facility] [address] [place] [address] PCP - General 05/02/23 Paloma Vazquez DO [address] [facility] [address] [place] [address] Referring Physician Obstetrics and Gynecology 04/25/23 documented as of this encounter
--- OUTSIDE RECORDS SUMMARY | 2024-11-05 19:08 | XMS_ITS | Encounter Summary ---
Author Organization [facility] Address [address] [place] [address] Care Team Providers Care Dispatcher Relay Name Role Phone Paloma Vazquez DO Unavailable [phone] Alberto Mayes MD Primary Care Provider [phone] Encounter Details Date Type Department Care Team (Latest Contact Info) Description 11/04/2024 Travel Social History Tobacco Use Types Packs/Day Years [...] Routine [facility] BCP OB [address] [place] [address] Jayla Leiva PA [address] [place], [facility] documented as of this encounter Visit Diagnoses Not on filedocumented in this encounter Care Teams Dispatcher Relay Relationship Specialty Start Date End Date Alberto Mayes MD [address] [place] [address] PCP - General 05/02/23 Paloma Vazquez DO [address] [place] [address] Referring Physician Obstetrics and Gynecology 04/25/23 documented as of this encounter
--- OUTSIDE RECORDS SUMMARY | 2024-11-05 19:08 | XMS_ITS | Encounter Summary ---
Author Organization [facility] Address [address] [place] [address] Care Team Providers Care Motor And Chassis Inspector Name Role Phone Paloma Vazquez DO Unavailable [phone] Alberto Mayes MD Primary Care Provider Encounter Details Date Type Department Care Team (Late st Contact Info) Description 05/01/2023 External Result Encounter [facility] External Department Unsolicited Paloma Vazquez, DO [address] [place] [address] Social History Tobacco Use Types Packs/Day Years [...] PM EDT Routine [facility] OB [address] [place] [place] [id number] Jayla Leiva PA [address] [place] [address] documented as of this encounter Procedures Procedure Name Priority Date/Time Associated Diagnosis Comments XR HYSTEROSALPINGOGRAM 11:41 AM EST documented in this encounter Results * XR hysterosalpingogram (05/01/2023 11:41 AM EST) Anatomical Region Laterality Modality Uterus Radiographic Jennifer ging 05/01/2023 11:4 1 AM EST Impressions 05/02/2023 2:28 PM EST Normal hysterosalpingogram. Impression dictated by: Librado Haney M.D.05/01/2023 11:43 AM Dictation Location: [place] [address] Transcribed By: [facility] 05/01/23 1143 Dictated By: Librado Haney II, MD 05/01/23 1141 Signed By: <Electronically signed by Librado Haney II, MD in OV> 05/01/23 1143 Narrative 05/02/2023 2:28 PM EST [facility] [place] [address] Fluoroscopy Report Signed Patient: Daphney Montesinos MR#: [id number] : 2000 Acct:[id number] Age/Sex: 23 / F ADM Date: 05/01/23 Loc: XD Room: Type: [facility] Attending Dr: Paloma Vazquez DO Copies to: [...] Kerma in mGy: 34.15 mGy FL/FL hysterosalpingography Procedure Note Radiology, Radiologist, - 06/27/2023 [facility] [address] [address] Fluoroscopy Report Signed Patient: Daphney Montesinos JMR#: [id number] : 2000Acct:[id number] Age/Sex: 23 / FADM Date: 05/01/23 Loc: XD Room:Type: [facility] Attending Dr: Paloma Vazquez DO Copies to: Paloma Vazquez DO Ordering Provider: Paloma Vazquez DO Date of Service: 05/01/23 FL/FL hysterosalpingography: Z87.59 05/01/2023 6:47 AM SIGNS AND SYMPTOMS: Check for tubal patency, history of endometriosis with3 miscarriages PROTOCOL: Intraoperative views of the pelvis were obtained during contrastadministration through the endometrial canal via the cervix. CONTRAST: 10 mL of Omnipaque 200 COMPARISON: None FINDINGS: Contrast fills the endometrial canal with free passage of contrast throughthe fallopian tubes spilling into the pelvis bilaterally. Cumulative Air Kerma in mGy: 34.15 mGy FL/FL hysterosalpingography IMPRESSION: Normal hysterosalpingogram. Impression dictated by: Librado Haney M.D.05/01/2023 11:43 AM Dictation Location: [place] [address] Transcribed By: [facility] 05/01/23 1143 Dictated By: Librado Haney II, MD 05/01/23 1141 Signed By: <Electronically signed by Librado Haney II, MD inOV> 05/01/23 1143 Paloma Vazquez DO IMG XR PROCEDURES Edited Re sult - Final documented in this encounter Visit Diagnoses Not on filedocumented in this encounter Care Teams Motor And Chassis Inspector Relationship Specialty Start Date End Date Alberto Mayes MD [address] [place] [address] PCP - General 05/02/23 Paloma Vazquez DO [address] [place] [address] Referring Physician Obstetrics and Gynecology 04/25/23 documented as of this encounter
[2024-11-11 15:09] LABS: Age Gdln ACOG Testing Note (.); IGP, rfx Aptima HPV ASCU Note (.)
== END 2024-11-05 19:06 | disposition home or self-care (01) ==
LOC: LAB 19:05
PROVIDERS: PCP Family Medicine; Visit Provider Obstetrics & Gynecology
DX: Z01.419 Encounter for gynecological examination (general) (routine) without abnormal findings (principal)
CPT/HCPCS: 88175

== ENCOUNTER 2024-11-12 18:19 | Emergency (ER) | payer BC, SELFPAY ==
--- OUTSIDE RECORDS SUMMARY | 2015-04-03 10:28 | XMS_ITS | Continuity of Care Document ---
Author Organization [facility] Address [address] [place] [address] Phone Care Team Providers Care Toll Testboard Worker Name Role Phone Jonathan Herrera Unavailable Unavailable Procedures Procedure Date TB INTRADERMAL TEST TB INTRADERMAL TEST Advance Directives Directive Yes / No Effective Date File Name No Information Encounters Encounter Description Practice Location Reason(s) For Visit Diagnoses Date Provider Providers Copied on Encounter [facility], [address] [place] [address], [id number], tel:[phone] [facility] No Information Beronica Lopez. [address] [place], [place], [id number], [place]. tel:[phone] [facility], [address] [place] [address], [id number], [place] tel:[phone] [facility] No Information Beronica Lopez. [address] [place], [place], [id number], [place]. tel:[phone] [facility], [address] [place], [place], [id number], [place] tel:[phone] [facility] No Information Beronica Lopez. [address] [place], [place], [id number], [place]. tel:[phone] Family History Family Member Type Diagnosis Age At Onset No Information Payers Payer name Insurance type Covered green party ID Authoriza tion(s) No Information Social [...]
--- OUTSIDE RECORDS SUMMARY | 2024-11-05 13:40 | XMS_ITS | Encounter Summary ---
Author Organization [facility] Address [address] [place] [address] Care Team Providers Care Photo Print Specialist Name Role Phone Paloma Vazquez DO Unavailable [phone] Alberto Mayes MD Primary Care Provider Encounter Details Date Type Department Care Team (Latest Contact Info) Description 11/05/2024 1:40 PM EDT Routine [facility] BCP OB [address] [place] [address] Jack Woods DO [address] [facility] [address] [place], [place] [id number] Well woman exam with routine gynecological exam; Second trimester ([facility]); 15 weeks gestation of ([facility]); Vaginal discharge; STD exposure Social History Tobacco [...] PM EDT Routine [facility] BCP OB [address] [facility] [place] [address] Jayla Leiva PA [address] [facility] [place] [address] Scheduled Orders Name Type Priority Associated Diagnoses Orde r Schedule SURESWAB(R) ADVANCED VAGINITIS PLUS, TMA Pathology and Cytology Routine Vaginal discharge Ordered: 11/05/2024 CHLAMYDIA TRACHOMATIS (GENITO/STI) Lab Routine STD exposure Ordered: 11/05/2024 Neisseria gonorrhea DNA probe, direct Lab Routine STD exposure Ordered: 11/05/2024 Alpha fetoprotein, maternal Lab Routine Second trimester ([facility]) 15 weeks gestation of ([facility]) Expected: 11/05/2024 (Approximate), Expires: 05/07/2025 Pap Smear Pathology and Cytology Routine Well woman exam with routine gynecological exam Ordered: 11/05/2024 documented as of this encounter Procedures Procedure Name Priority Date/Time Associated Diagnosis Comments POCT URINALYSIS DIPSTICK Routine 11/05/2024 2:15 PM EDT Second trimester ([facility]) 15 weeks gestation of ([facility]) documented in this encounter Results * POCT [...] gynecological exam Routine gynecological examination Second trimester ([facility]) state, incidental 15 weeks gestation of ([facility]) Vaginal discharge Leukorrhea, not specified as infective STD exposure documented in this encounter Care Teams Photo Print Specialist Relationship Specialty Start Date End Date Alberto Mayes MD [address] [place] [address] PCP - General 05/02/23 Paloma Vazquez DO [address] [place] [address] Referring Physician Obstetrics and Gynecology 04/25/23 documented as of this encounter
--- OUTSIDE RECORDS SUMMARY | 2024-11-12 08:33 | XMS_ITS | Encounter Summary ---
Author Organization [facility]99Bill tem Address [id number] [address] [place] [address] Care Team Providers Care Prep Manager Name Role Phone Unavailable Primary Care Provider Unavailabl e Reason for Visit * Diagnostic Imaging (Routine) - Pending Review Specialty Diagnoses / Procedures Referred By Contac t Referred To Contact Maternal and Medicine Diagnoses Encounter for anatomic survey Procedures US MFM with or without consult US MFM with or without consult Samantha Peres MD [address] [facility] 1st [place] [address] Phone: tel: fax: Maternal- Medicine at [facility] [address] [place] [address] Phone: tel: fax: Referral ID Status Reason Start Date Expiration Date V isits Requested Visits Authorized [id number] Pending Review 09/27/2024 09/27/2025 1 1 Encounter Details Date Type Department Care Team (Latest Contact Info) Description 11/12/2024 8:33 AM EDT Hospital Encounter [facility] - MFM US Imaging [address] [place] [phone] Encounter for anatomic survey Social History Tobacco Use Types Packs/Day Years [...] 12/10/2024 1:30 PM EDT Appointment Maternal Medicine [place] [address] [facility] [address] [address] [place] [address] documented as of this encounter Procedures Procedure Name Priority Date/Time Associated Diagnosis Comments [facility] COMPREHENSIVE ANATOMIC SURVEY Routine 11/12/2024 10:10 AM EDT Encounter for anatomic survey documented in this encounter Results * [facility] COMPREHENSIVE ANATOMIC SURVEY (11/12/2024 10:10 AM EDT) Anatomical Region Laterality Modality 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 11/12/2024 8:40 AM EDT Narrative 11/12/2024 11:20 AM EDT NAME: SERVANDO LANGLEY : 2000 SEX: F Accession Number: [id number] ORDERING PHYSICIAN: SAMANTHA PERES REFERRING PHYSICIAN: GABY FOX Coding ----- --------- Procedures [id number]: Ultrasound, uterus, real time with image documentation, and maternal evaluation plus detailed anatomic examination, transabdominal approach;single or first gestation 65195: Transvaginal Ultrasound (OB) Indication ----- --------- Screening for Anatomic Survey, Uterine fibroid affecting , Supervision of high risk (bilateral complex ovaries), Screening for cervical length. History ----- --------- OB History 3. Para 0 [id number] Current ----- --------- Cell free DNA Low [...] EFW (oz) 5 oz EFW by: Hadlock (QGO-DX-NQ-FL) Extended Tibia 17.7 mm 16w 0d 61% [...] Thorax 4-chamber view. RVOT view. 3-vessel view. 3-sdodyj-ynrzxgh view. Aortic arch view. Ductal arch view. [...] echogenic textures. Recommendations ----- --------- Please see [facility] documentation from today. The patient is scheduled in four weeks to complete anatomic survey and cervical length ultrasound. Subsequent follow up or other follow up as clinically determined by primary OB provider unless otherwise specified by [facility]. Results forwarded to ordering provider so they can follow up with the patient as necessary. Procedure Note Samantha Peres MD - 11/12/2024 NAME: SERVANDO LANGLEY : 2000 SEX: F Accession Number: [id number] ORDERING PHYSICIAN: SAMANTHA PERES REFERRING PHYSICIAN: GABY FOX Coding ----- --------- Procedures 44011: Ultrasound, uterus, real time with imagedocumentation, and maternal evaluation plus detailed anatomic examination, transabdominalapproach;single or first gestation 94246: Transvaginal Ultrasound (OB) Indication ----- --------- Screening for Anatomic Survey, Uterine fibroid affecting ,Supervision of high risk (bilateral complex ovaries), Screening for cervical length. History ----- --------- OB History 3. Para 0 [id number] Current ----- --------- Cell free DNA Low [...] EFW (oz) 5 oz EFW by: Hadlock (ISP-FK-MO-FL) Extended Tibia 17.7 mm 16w 0d 61% [...] Thorax 4-chamber view. RVOT view. 3-vessel view. 2-cnskax-imbxsbrxjwc. Aortic arch view. Ductal arch view. Interventricular [...] heterogenousechogenic textures. Recommendations ----- --------- Please see [facility] documentation from today. The patient is scheduled in four weeks to complete anatomic survey andcervical length ultrasound. Subsequent follow up or other follow up as clinically determined byprimary OB provider unless otherwise specified by [facility]. Results forwarded to ordering provider so they can follow up with thepatient as necessary. us Samantha Peres MD [facility] [place] ORDERABLES Final Result documented in this encounter Visit Diagnoses Diagnosis Encounter for anatomic survey documented in this encounter
--- OUTSIDE RECORDS SUMMARY | 2024-11-12 10:00 | XMS_ITS | Encounter Summary ---
Author Organization [email or web address] tem Address [id number] [address] [place] [address] Care Team Providers Care Technician Submarine Cable Equipment Name Role Phone Unavailable Primary Care Provider Unavailabl e Reason for Referral * Vascular (Routine) - Pending Review Specialty Diagnoses / Procedures Referred By Contac t Referred To Contact Diagnoses Localized swelling of right lower extremity Procedures Vas venous duplex insufficiency lwr rt Samantha Peres MD [address] [place] [address] Phone: tel: fax: Referral ID Status Reason Start Date Expiration Date V isits Requested Visits Authorized [id number] Pending Review 11/12/2024 11/12/2025 1 1 * Diagnostic Imaging (Routine) - Pending Review Specialty Diagnoses / Procedures Referred By Contac t Referred To Contact Radiology Diagnoses Adnexal mass 16 weeks gestation of Procedures MR pelvis without contrast Samantha Peres MD [address] [place] [address] Phone: tel: fax: Referral ID Status Reason Start Date Expiration Date V isits Requested Visits Authorized [id number] Pending Review 11/12/2024 11/12/2025 1 1 Reason for Visit * Reason Comments Enlarged & Heterogeneous Bilateral Ovari es 2.3cm Isoechoic Left-sided Lesion Possible Endometrioma Encounter Details Date Type Department Care Team (Late st Contact Info) Description 11/12/2024 10:00 AM EDT Office Visit Maternal- Medicine at [facility] [address] [place] [phone] Samantha Peres MD [address] [facility] [address] [place], [place] [id number] Adnexal mass (Primary Dx); 16 weeks gestation of ; Uterine fibroids affecting in second trimester; Localized swelling of right lower extremity Social History Tobacco Use Types Packs/Day Years [...] Sign Reading Time Taken Comments Blood Pressure 105/73 11/12/2024 8:47 AM EDT Pulse 90 11/12/2024 8:47 AM EDT Temperature - - Respiratory Rate - - Oxygen Saturation - - Inhaled Oxygen Concentration - - Weight 77.2 kg (170 lb 3.2 oz) 11/12/2024 8:47 A M EDT Height 167.6 cm (5' 5.98 ) 11/12/2024 8:47 AM ED T Body Mass Index 27.48 11/12/2024 8:47 AM EDT documented in this encounter Progress Notes * Samantha Peres MD - 11/12/2024 10:00 AM EDT Images from the original note were not included. REASON FOR CONSULTATION: Bilaterally enlarged ovaries HISTORY OF PRESENT ILLNESS: Daphney Montesinos is a pleasant 24 y.o. at 15w6d due on Estimated Date of Delivery: 04/29/25. complicated by: Bilateral adnexal masses in setting of history of endometriosis. Uterine fibroids Right lower extremity pain with some swelling. Patient does not believe she has a bruise and potentially a clot. Today, the patient is doing well. She denies contractions, vaginal bleeding, leaking of fluid. Aneuploidy screening: low risk cell free DNA per patient report Carrier screening: Baby Boy: Rubin Parra Aj have reviewed the pertinent available patient records including but not limited to notes, labs and images. PAST OBSTETRICAL HISTORY: OB History Para Term AB Living 3 2 SAB IAB Ectopic Multiple Live Births 2 # Outcome Date GA Lbr Anand/2nd Weight Sex Type Anes PTL Lv 3 Current 2 SAB 12/2023 6w0d SAB 1 SAB 06/2022 4w0d Biochemical MEDICAL HISTORY: Past Medical History: Diagnosis Date Acne vulgaris Endometriosis History of Miscarriage History of Recurrent strep Ovarian cyst SURGICAL HISTORY: Past Surgical History: Procedure Laterality Date BREAST BIOPSY Right 12/2018 DIAGNOSTIC LAPAROSCOPY 11/20/2019 LAPAROSCOPY DIAGNOSTIC / BIOPSY / ASPIRATION / LYSIS ENDOMETRIOSIS TONSILLECTOMY 11/03/2016 FAMILY/GENETIC HISTORY: Family History Problem Relation Age of Onset Liver disease Paternal Grandfather Kidney disease Paternal Grandfather Heart disease Paternal Grandmother Diabetes Maternal Grandmother Heart disease Maternal Grandfather Autoimmune disease Father RA Hypertension Father Developmental delay Cousin Heart defect Cousin Cancer Neg Hx Autism Neg Hx Down syndrome Neg Hx Bleeding Disorder Neg Hx Clotting disorder Neg Hx Sudden Neg Hx Dysfunctional uterine bleeding Neg Hx SOCIAL HISTORY: Social History Tobacco Use Smoking status: Never Vaping Use Vaping status: Never Used Substance Use Topics Alcohol use: Never Drug use: Never ALLERGIES: Allergies Allergen Reactions Cephalexin Nausea And Vomiting Ciprofloxacin Vomiting PROJECTILE VOMITING Prednisone Nausea And Vomiting CURRENT MEDICATIONS: Current Outpatient Medications: aspirin 81 mg chewable tablet, Chew 1 tablet (81 mg total) and swallow in the morning., Disp: , Rfl: omeprazole (PriLOSEC) 20 mg capsule, Take 1 capsule (20 mg total) by mouth in the morning., Disp: ,Rfl: ondansetron (ZOFRAN) 4 mg tablet, Take 1 tablet (4 mg total) by mouth every 8 (eight) hours as needed for nausea or vomiting., Disp: , Rfl: PNV 94-miib-thsjcjnhnmlb-dha 29 mg iron-1 mg -350 mg comb pack,tablet DR,capsule DR, Take 1 tablet by mouth in the morning., Disp: , Rfl: progesterone (PROMETRIUM) 200 mg capsule, Take 1 capsule (200 mg total) by mouth in the morning., Disp: , Rfl: RECENT HOSPITALIZATION: none HABITS: Patient activity no restrictions, diet no restrictions REVIEW OF SYSTEMS: Head and Neck: Negative for any dizziness and headaches. Cardiovascular and Respiratory System: Denies any chest pain, shortness of breath, and coughing. Abdominal and System: Denies any abdominal pain, nausea, vomiting, vaginal bleeding, and vaginal discharge REVIEW OF TESTS AND ULTRASOUND REPORTS: Referral records and [facility] chart were reviewed Pertinent Ultrasound findings are see formal ultrasound report. PHYSICAL EXAMINATION: BP 105/73 (BP Site: Left Arm, BP Postition: Lying) Pulse 90 Ht 167.6 cm (5' 5.98 ) Wt 77.2 kg (170 lb 3.2 oz) LMP 07/23/2024 BMI 27.48 kg/m?? Well-appearing in no distress. Respirations not labored, speaking comfortably in full sentences Gravid abdomen IMAGING 09/22/2024 OVERALL ASSESSMENT -Daphney Montesinos is a pleasant 24 y.o. at 16w0d -bilateral adnexal masses -history of endometriosis -uterine fibroids -right lower extremity pain COUNSELING/MEDICAL DECISION-MAKING Adnexal mass Patient has a bilateral complex adnexal masses genetic has a having Rubin Fidel noted on ultrasound today. Patient has known history of endometriomas and endometriosis, diagnosed on laparoscopic evaluation. Bilateral adnexal masses today do not appear consistent with endometriomas, though certainly hemorrhagic organized endometriomas could present as more complicated adnexal masses. The majority of adnexal masses in are simple ovarian cysts, many of which spontaneously resolve by the 2nd trimester of . However some large cysts or complex adnexal masses persistthrough and have the potential to cause related complications and may require surgical intervention. Functional cysts are the most common adnexal mass in , followed by dermoid (benign cystic teratoma). Malignant adnexal masses are uncommon, representing approximately 1-3% of related adnexal masses. Large adnexal masses in pose an increased risk of complications during such as pain, internal hemorrhage (<1%), torsion (1-22%) or rupture (0-9%) - and potentially result in urgent/ emergent surgical intervention. Urgent, unscheduled surgical intervention performed as a result of a complication of adnexal mass in incurs a substantially higher risk of complications such as labor or PPROM, compared to planned non- urgent surgical intervention (which has not been found to increase complication risk). Masses that are simple and cystic in nature and <6 cm in diameter have a low risk of malignancy (<1%) and torsion and may be observed during . However, surgical management during is recommended for masses that persist into the second trimester, are rapidly enlarging, appearmalignant, OR are >8 cm in diameter. Serum testing with CA125 in is not reliable. Planned surgical management for adnexal masses in is generally recommended at 16-20 weeks of gestational age, but would be indicated at any gestational age if a complication related to the mass (i.e. torsion) occurs. We discussed the limitation of ultrasound to rule out torsion, and typical approach is with clinical diagnosis combining ultrasound findings in addition to clinical symptoms. The absence of typical sonographic signs of torsion on ultrasound does not rule out ovarian torsion, especially when the clinical presentation is suggestive. To better evaluate the morphology of the mass, an MRI pelvis without contrast has been ordered . MRI has an accuracy rate of 90+% in distinguishing between benign and malignant etiologies. Ref: Gregg Duke, Gregg Casanova.Irvin Tejada (Eds.) (2019) [facility] maternal- medicine :principles and practice [place], [place] : Hall/Elsevier Sonographic diagnosis of ovarian torsion: accuracy and predictive factors. Monica R, Jeff N, Zion N, Sohan-Chelsea G, Bright I. J Ultrasound Med. 2011 Jan;30(9):1205-10. Adnexal masses in : An updated review. Olivia AM, Dorie Rocha, Adelaide DOMÍNGUEZ, Nory H, Alexi RICKS. [facility] J Med. 2017 Feb-Apr;7(4):153-157. doi: [id number]. PMID: [id number] Uterine fibroids, affecting I reviewed the uterine fibroids otherwise known as leiomyomas, are benign smooth muscle tumors of the uterus. We discussed that in the first trimester about half of patients experience growth of fibroids, and half have reduction in size or they remain stable. Later in , in the the majorityof cases (75%), fibroids decrease in size. Several complications have been associated with uterine myomas during . Myomas may degenerate during secondary to ischemia as the uterus grows and can result in severe pain. Pedunculated myomas may also torsed, resulting in severe pain. In addition, there is slight increase in risk of early loss, labor, placenta previa, growth abnormalities, placental abr uption, malpresentation, delivery and hemorrhage. For symptomatic pain control, recommend acetaminophen as the initial intervention. However short courses of NSAIDs can be utilized in severe refractory pain. Indomethacin 25 mg orally every 6 hours for up to 48 hours is a commonly prescribed course if needed. NSAID therapy should be limited to pregn ancies less than 32 weeks of gestation because of the possibility of inducing premature closure of the ductus arteriosus, pulmonary hypertension, oligohydramnios, and / plateletdysfunction. Given the size and the number of the uterine fibroids, I recommend a repeat growth ultrasound in the 3rd trimester through the primary OB. Right lower extremity pain There was no gross evidence of DVT on exam today. However given increased risk of DVTs in , a right lower extremity duplex was ordered. Precautions for chest pain or shortness of breath as asign of VTE were reviewed. SUMMARY/RECOMMENDATION: MRI abdomen without contrast to evaluate bilateral adnexal masses was ordered Right lower extremity venous duplex to rule out DVT, ordered Detailed anatomy ultrasound at 20 weeks' gestation with repeat cervical length and evaluation of bilateral adnexal masses, through [facility] Recommend repeat growth ultrasound in the 3rd trimester, through primary OB, given known uterine fibroid Anticipate term vaginal delivery at local hospital Precautions regarding shortness of breath and chest pain were reviewed with the patient today DISPOSITION: At this point the patient is in complete care of her pinball machine repairer. Thank you for allowing me to participate in the care of Daphney Montesinos. If there any questions please do not hesitate to contact us. Samantha Peres MD Maternal- Medicine [facility] [address] [place] [address] This document was created with [employer] technology. Though I make every effort to review the dictation as it is transcribed, on occasion the spoken word can be misinterpreted by the technology leading to inappropriate words, phrases, or sentences. This note is addressed to the requesting provider as a consultation for clinical guidance. Specificmedical abbreviations are occasionally used and those are generally approved by the [place]?Board of?Obstetrics and?Gynecology?as well as?[place]???s abbreviations. The above plan of care was based solely on the diagnoses for which a consultation was requested. ?More frequent testing may be indicated based on her other medical/obstetrical conditions. The management of other or medical conditions is beyond the scope of requested consultation and will c ontinue to be followed by the primary pinball machine repairer or primary care provider. Note to patient: The Cures Act makes medical notes like these available to patients inthe interest of transparency. However, be advised this is a medical document. It is intended as peer to peer communication. It is written in medical language and may contain abbreviations or verbiagethat are unfamiliar. It may appear blunt or direct. Medical documents are intended to carry relevant information, facts as evident, and the clinical opinion of the practitioner. * Jayla Avina LPN - 11/12/2024 10:00 AM EDT Headache/epigastric pain/blurry vision/swelling? Swelling in BLE with N/T - pre- . Bilat hip pain. Cramping/contractions? No Spotting/vaginal bleeding? Bleeding after pelvic exam x 2 days last week Loss or gush of fluid like your water may have broken? No Do you have cats at home? No Do you change the litter box (reason: risk of toxoplasmosis)? N/A Genetic testing done this here or other office? Yes, through primary OB, [facility], low risk Have you been seen here at [facility] in a previous ? No Recent ER visits or hospitalizations? No Bring blood sugar log or meter with you today? (Please bring them with you for every visit at [facility]) N/A Flu vaccine (Mar-July)? N/A Any concerns that you would like me to mention to the provider today? R calf bruising, +Homans sign, wants to make sure about cysts, feeling nervous about cervix being short, has never been this far along. Right calf = 36.4cm, Left calf = 39.0cm documented in this encounter Plan of Treatment Upcoming Encounters Date Type Department Care Team (Late st Contact Info) Description 12/10/2024 1:30 PM EDT Appointment Maternal Medicine [place] [address] [address] [place] [address] Scheduled Orders Name Type Priority Associated Diagnoses Order Schedule MR pelvis without contrast Imaging Routine Adnexal mass 16 weeks gestation of Expected: 11/12/2024, Expires: 11/12/2025 Vas venous duplex insufficiency lwr rt Vascular Ultrasound Routine Localized swelling of right lower extremity Expected: 11/12/2024, Expires: 11/12/2025 documented as of this encounter Visit Diagnoses Diagnosis Adnexal mass- Primary Other specified symptom associated with female genital organs 16 weeks gestation of Uterine fibroids affecting in second trimester Localized swelling of right lower extremity documented in this encounter
[2024-11-12 18:24] VITALS: BP 118/76; PULSE 98; TEMP 36.8; O2SAT 98; BMI 27.4
--- OUTSIDE RECORDS SUMMARY | 2024-11-12 18:27 | XMS_ITS | Encounter Summary ---
Author Organization [facility] Address [id number] [address] [place] [address] Care Team Providers Care Engineering Librarian Name Role Phone Unavailable Primary Care Provider Unavailabl e Reason for Referral * Diagnostic Imaging (Routine) - Pending Review Specialty Diagnoses / Procedures Referred By Contac t Referred To Contact Maternal and Medicine Diagnoses Adnexal mass Uterine fibroids affecting in second trimester Localized swelling of right lower extremity Procedures US MFM with or without consult Samantha Peres MD [address] [facility] [address] [place] [address] Phone: tel: fax: Maternal- Medicine at [facility] [address] [place] [address] Phone: tel: fax: Referral ID Status Reason Start Date Expiration Date V isits Requested Visits Authorized [id number] Pending Review 11/12/2024 11/12/2025 1 1 Encounter Details Date Type Department Care Team (Late st Contact Info) Description 11/12/2024 Orders Only Maternal- Medicine at [facility] [address] [place] [address] Jayla Avina, BRIANA Adnexal mass (Primary Dx); Uterine fibroids affecting in second trimester; Localized [...] 12/10/2024 1:30 PM EDT Appointment Maternal Medicine [address] [place] [address] Scheduled Orders Name Type Priority Associated Diagnoses Orde r Schedule US MFM with or without consult Imaging Routine Adnexal mass Uterine fibroids affecting in second trimester Localized swelling of right lower extremity Expected: 11/12/2024, Expires: 11/12/2025 documented as of this encounter Procedures Procedure Name Priority Date/Time Associated Diagnosis Comments FREE CELL DNA (NON-[facility] SEND OUT) Routine 11/12/2024 2:42 PM EDT documented in this encounter Results * Free Cell DNA (Non-[facility] Send Out) (11/12/2024 2:42 PM EDT) us Not In System Ref Prov LAB BLOOD ORDERABLES Ella l Result MANUALLY TRANSCRIBED RESULTS documented in this encounter Visit Diagnoses Diagnosis Adnexal mass- Primary Other specified symptom associated with female genital organs Uterine fibroids affecting in second trimester Localized swelling of right lower extremity documented in this encounter
--- OUTSIDE RECORDS SUMMARY | 2024-11-12 18:28 | XMS_ITS | Encounter Summary ---
Author Organization [employer] tem Address [id number] [address] [place] [address] Care Team Providers Care Luggage Repairer Name Role Phone Unavailable Primary Care Provider Unavailabl e Encounter Details Date Type Department Care Team (Latest Contact Info) Description 11/12/2024 Travel Social History Tobacco Use Types Packs/Day [...] 12/10/2024 1:30 PM EDT Appointment Maternal Medicine [place] [address] [facility] [facility] [address] [place] [address] documented as of this encounter Visit Diagnoses Not on filedocumented in this encounter
--- OUTSIDE RECORDS SUMMARY | 2024-11-12 18:28 | XMS_ITS | Clinical Summary ---
Author Organization [facility] Address [address] [place] [address] Care Team Providers Care Hands Assembler Name Role Phone Unavailable Primary Care Provider Unavailabl e Allergies Active Allergy Reactions Criticality Noted Date Comments Cephalexin Nausea And Vomiting Low 02/01/2019 Prednisone Nausea And Vomiting Low 02/01/2019 Medications norethindrone-et hinyl estradiol-iron (AKIL FE .5) 1.5-30 MG-MCG tablet Take 1 tablet by [...] 4:30 AM EDT Respiratory Rate 18 02/01/2019 4:3 0 AM EDT Oxygen Saturation 100% 02/01/2019 4:30 AM EDT Inhaled Oxygen Concentration - - Weight 58.9 kg (129 lb 14.4 oz) 02/01/2019 4:30 AM EDT Height - - Body Mass Index - - Plan of Treatment Not on file Insurance [place] BCBS
--- OUTSIDE RECORDS SUMMARY | 2024-11-12 18:28 | XMS_ITS | Encounter Summary ---
Author Organization [facility] Address [address] [place] [address] Care Team Providers Care Food Quality Tester Name Role Phone Paloma Vazquez DO Unavailable Alberto Mayes MD Primary Care Provider [phone] Encounter Details Date Type Department Care Team (Late st Contact Info) Description 11/05/2024 Bamboo flowsheet [facility] [address] [place] [address] Jack Woods [address] [place], [place] [id number] Social History Tobacco Use Types Packs/Day Years [...] PM EDT Routine [facility] [address] [facility] [place] [address] Jayla Leiva PA [address] [place] [address] [place] [address] documented as of this encounter Visit Diagnoses Not on filedocumented in this encounter Care Teams Food Quality Tester Relationship Specialty Start Date End Date Alberto Mayes MD [address] [facility] [address] [place] [address] PCP - General 05/02/23 Paloma Vazquez DO [address] [facility] [address] [place] [address] Referring Physician Obstetrics and Gynecology 04/25/23 documented as of this encounter
--- OUTSIDE RECORDS SUMMARY | 2024-11-12 18:28 | XMS_ITS | Encounter Summary ---
Author Organization [facility] Address [address] [place] [address] Care Team Providers Care Senior Care Provider Name Role Phone Paloma Vazquez DO Unavailable [phone] Alberto Mayes MD Primary Care Provider Encounter Details Date Type Department Care Team (Late st Contact Info) Description 09/25/2024 Abstract [facility] [address] [place] [address] Jack Woods [facility] Juan [place], [facility] Social History Tobacco Use Types Packs/Day [...] Routine [facility] [address] [place] [address] Jayla Leiva PA [address] [place] [address] [place] [address] documented as of this encounter Visit Diagnoses Not on filedocumented in this encounter Care Teams Senior Care Provider Relationship Specialty Start Date End Date Alberto Mayes MD [address] [address] PCP - General 05/02/23 Paloma Vazquez DO [address] [facility] [address] [place] [address] Referring Physician Obstetrics and Gynecology 04/25/23 documented as of this encounter
--- OUTSIDE RECORDS SUMMARY | 2024-11-12 18:28 | XMS_ITS | Encounter Summary ---
Author Organization [facility] Address [address] [place] [address] Care Team Providers Care Poll Clerk Name Role Phone Paloma Vazquez DO Unavailable [phone] Alberto Mayes MD Primary Care Provider Encounter Details Date Type Department Care Team (Late st Contact Info) Description 09/24/2024 Abstract [facility] [address] [place] [address] [facility] Juan [place], [facility]11 Social History Tobacco Use Types Packs/Day Years [...] Routine [facility] [address] [place] [address] Jayla Leiva PA [address] [place] [address] [place] [address] documented as of this encounter Visit Diagnoses Not on filedocumented in this encounter Care Teams Poll Clerk Relationship Specialty Start Date End Date Alberto Mayes MD [address] [address] PCP - General 05/02/23 Paloma Vazquez DO [address] [facility] [address] [place] [address] Referring Physician Obstetrics and Gynecology 04/25/23 documented as of this encounter
--- OUTSIDE RECORDS SUMMARY | 2024-11-12 18:28 | XMS_ITS | Encounter Summary ---
Author Organization [facility] Address [address] [place] [address] Care Team Providers Care Carbon Capture Power Plant Operator Name Role Phone Paloma Vazquez DO Unavailable [phone] Alberto Mayes MD Primary Care Provider [phone] Encounter Details Date Type Department Care Team [...] Routine [facility] [address] [place] [address] Jayla Leiva PA [address] [place], [facility]11 documented as of this encounter Visit Diagnoses Not on filedocumented in this encounter Care Teams Carbon Capture Power Plant Operator Relationship Specialty Start Date End Date Alberto Mayes MD [address] [place] [address] [place] [address] PCP - General 05/02/23 Paloma Vazquez DO [address] [place] [address] [place] [address] Referring Physician Obstetrics and Gynecology 04/25/23 documented as of this encounter
--- OUTSIDE RECORDS SUMMARY | 2024-11-12 18:28 | XMS_ITS | Encounter Summary ---
Author Organization [facility] Address [address] [address] Care Team Providers Care Nurse Auditor Name Role Phone Paloma Vazquez DO Unavailable [phone] Alberto Mayes MD Primary Care Provider Encounter Details Date Type Department Care Team (Late st Contact Info) Description 10/03/2024 Abstract [facility] [address] [place] [address] Jack Woods [facility] Juan [place], [facility] Social History Tobacco Use Types Packs/Day Years [...] Routine [facility] [address] [place] [address] Jayla Leiva PA [address] [place] [address] [place] [address] documented as of this encounter Visit Diagnoses Not on filedocumented in this encounter Care Teams Nurse Auditor Relationship Specialty Start Date End Date Alberto Mayes MD [address] [address] PCP - General 05/02/23 Paloma Vazquez DO [address] [facility] [address] [place] [address] Referring Physician Obstetrics and Gynecology 04/25/23 documented as of this encounter
--- OUTSIDE RECORDS SUMMARY | 2024-11-12 18:28 | XMS_ITS | Clinical Summary ---
Author Organization [facility] Address [address] [place] [address] Care Team Providers Care Product Technology Scientist Name Role Phone Paloma Vazquez DO Unavailable [phone] Alberto Mayes MD Primary Care Provider Allergies Active Allergy Reactions Criticality Noted Date Comments Cephalexin Nausea And Vomiting Low 02/01/2019 Other Reaction(s): severe vomiting Other Reaction(s): Vomiting Ciprofloxacin Low 08/03/2018 Other Reaction(s): GI Intolerance Pt states projectile vomiting. Other Reaction(s): Vomiting PROJECTILE VOMITING Prednisone Nausea And Vomiting Low 02/01/2019 Other Reaction(s): severe vomiting Other Reaction(s): Vomiting Medications aspirin 81 MG oral suspension 10/14/2023 Act indra Vit w/Fe-Methylfol- FA (PNV PO) Active ondansetron (Zofran) 4 MG tabletIndicatio ns:Gastroesopha geal reflux in (HHS-HCC),Nause a and vomiting during (HHS-HCC) Take 1 tablet (4 mg) by mouth every 6 (six) hours if needed for nausea or vomiting for up to 30 doses Take 1 tablet by mouth every 6 hours as needed for nausea. 30 tablet 3 09/19/2024 Active Doxylamine Succinate, Sleep, (UNISOM PO) Take by mouth Active pyridoxine (Vitamin B-6) 25 MG tablet Take 25 mg by mouth Daily Active docusate sodium (Colace) 100 MG capsule Take 100 mg by mouth Daily Active omeprazole (PriLOSEC) [address] Loera ons:Gastroesoph ageal Reflux Disease,Heartbu rn Take 1 capsule (40 mg) by mouth in the morning. Take before meals. Do not crush or chew. 30 capsule 3 10/08/2024 Active Encounters Date Type Department Care Team Description 11/12/2024 Abstract [facility] [address] [place] [address] Gaby Woods, DO 11/12/2024 External Result Encounter [facility] [address] [place] [address] Gaby Woods, DO 11/05/2024 1:40 PM EDT Routine [facility] [address] [place] [address] Gaby Woods, Well woman exam with routine gynecological exam; Second trimester ([facility]); 15 weeks gestation of ([facility]); Vaginal discharge; STD exposure 11/05/2024 External Result Encounter [facility] External Department Unsolicited Gaby Woods, DO 11/05/2024 Clinisync Result Encounter [facility] External Department Unsolicited Gaby Woods, DO 11/05/2024 External Result Encounter [facility] External Department Unsolicited Gaby Woods, DO 11/05/2024 Bamboo flowsheet [facility] [address] [place] [address] Gaby Woods, DO 11/04/2024 Travel 10/08/2024 2:30 PM EDT Routine [facility] [address] [place] [address] Gaby Woods, 11 weeks gestation of ([facility]); First trimester ([facility]); Other constipation; Gastroesophageal reflux in ([facility]) 10/08/2024 Bamboo flowsheet [facility] [address] [place] [address] Gaby Woods, DO 10/03/[address] [address] [place] [address] Gaby Woods, DO 09/25/2024 Abstract [facility] [address] [place] [address] [place] [address] Gaby Woods, DO 09/24/[address] [facility] [address] [place] [address] Gaby Woods, DO 09/24/2024 Clinisync Result Encounter [facility] External Department Unsolicited Gaby Woods, DO 09/23/[address] [address] [place] [address] Kelley Sepulveda, BRIANA 09/19/2024 1:30 PM EDT Initial [facility] [address] [place] [address] GA: 8w2d 09/19/2024 1:00 PM EDT Ancillary Procedure [facility] [address] [place] [address] Missed menses 09/18/2024 Travel 09/05/[address] [address] [place] [address] Kelley Sepulveda LPN History of miscarriage 08/28/2024 8:30 AM EDT Ancillary Procedure [facility] [address] [place] [address] Missed menses 08/26/[address] [address] [place] [address] Kelley Sepulveda LPN 08/26/2024 Clinisync Result Encounter [facility] External Department Unsolicited Gaby Woods, DO 08/26/[address] [address] [place] [address] Kelley Sepulveda LPN 08/24/2024 Clinisync Result Encounter [facility] External Department Unsolicited Peggy, Gaby, DO 08/23/2024 Telephone [facility] [address] [place] [address] [place] [address] Bianca Gentile [place] 08/23/2024 Telephone [facility] [address] [place] [address] [place] [address] Bianca Gentile MT 08/22/2024 Clinisync Result Encounter [facility] External Department Unsolicited Peggy, Gaby, DO 08/21/2024 Telephone [facility] [address] [place] [address] [place] [address] Bianca Gentile MT 08/20/2024 Clinisync Result Encounter [facility] External Department Unsolicited Peggy, Gaby, DO 08/17/2024 Clinisync Result Encounter [facility]OM[facility] External Department Unsolicited PeggyFidey, DO 08/15/2024 Clinisync Result Encounter [facility] External Department Unsolicited Peggy, Gaby, DO from Last 3 Months Family History [...] PM EDT Routine [facility] [address] [place] [address] Jayla Leiva PA [address] [address] Procedures Procedure Name Priority Date/Time Associated Diagnosis Comments US OB 14+ WEEKS ANATOMY SCAN 11/12/2024 11:20 AM EDT RECURRENT VAGINITIS (HTRX) Routine 11/05/2024 3:29 PM EDT POCT URINALYSIS DIPSTICK Routine 11/05/2024 2:15 PM EDT Second trimester ([facility]) 15 weeks gestation of ([facility]) IGP,APTIMA HPV,AGE GDLN Routine 11/05/2024 1:57 PM EDT PATHOLOGY REQUEST FOR LAB GIA Routine 11/05/2024 12:00 AM EDT POCT URINALYSIS DIPSTICK Routine 10/08/2024 2:43 PM EDT 11 weeks gestation of ([facility]-HCC) First trimester ([facility]) HBSAG SCREEN Routine 09/24/2024 10:25 AM EDT [...] menses [facility] PREG QUANT HCG Routine 08/26/2024 1: 28 PM EDT ALL PROGESTERONE Routine 08/24/2024 7:06 AM EDT TBH PREG QUANT HCG Routine 08/24/2024 7: 06 AM EDT TBH PREG QUANT HCG Routine 08/22/2024 7: 50 AM EDT TBH PREG QUANT HCG Routine 08/20/2024 7: 41 AM EDT [facility] PREG QUANT HCG Routine 08/17/2024 8: 35 AM EDT [facility] PREG QUANT HCG Routine 08/15/2024 7: 50 AM EDT from Last 3 Months Results * US OB 14+ weeks anatomy scan (11/12/2024 11:20 AM EDT) Anatomical Region Laterality Modality Body Ultrasound 11/12/2024 11:2 0 AM EDT Narrative 11/12/2024 11:20 AM EDT THIS EXAM WAS PERFORMED AT [facility] ([place], [place]) NAME: SERVANDO LANGLEY : 2000 SEX: F Accession Number: [id number] ORDERING PHYSICIAN: GUADALUPE SCHMIDT REFERRING PHYSICIAN: GABY WOODS Coding ----- --------- Procedures 75930: Ultrasound, uterus, real time with image documentation, and maternal evaluation plus detailed anatomic examination, transabdominal approach;single or first gestation 69374: Transvaginal Ultrasound (OB) Indication ----- --------- Screening for Anatomic Survey, Uterine fibroid affecting , Supervision of high risk (bilateral complex ovaries), Screening for cervical length. History ----- --------- OB History 3. Para 0 [id number] Current ----- --------- Cell free DNA Low Risk analysis Maternal Assessment ----- --------- Physical Exam Height 168 cm, 5 ft 6 in. Weight 77 kg, 170 lb. Initial weight 77 kg, 170 lb. BMI 27.44 kg/m???. Initial BMI 27.44 kg/m???. Weight gain 0 kg, 0 lb Method [...] EFW (oz) 5 oz EFW by: Hadlock ([id number]-AS-WG-FL) Extended Tibia 17.7 mm 16w 0d 61% [...] Thorax 4-chamber view. RVOT view. 3-vessel view. 4-ifsvhm-htrzkyp view. Aortic arch view. Ductal arch view. [...] 25 mm. Mean 24.3 mm. Vol 7.307 cm??? 2. Size 27 mm x 21 mm. Mean 24.0 mm. Vol 6.312 cm??? Cervix Visualized Approach - Transvaginal: Cervical length 3.83 cm Right Ovary Visualized Size 4.7 cm x 4.3 cm x 3.1 cm. Vol 32.5 cm??? Left Ovary Visualized Size 3.9 cm x 3.8 cm x 2.7 cm. Vol 21.1 cm??? Cul de Sac Visualized. No free fluid visualized Impression ----- --------- Single viable intrauterine consistent with 16w 0d with an PORFIRIO of 04/29/2025. Transvaginal cervical length measures 3.83 cm. Amniotic fluid MVP measures 3.6 cm. Uterine fibroid(s) as noted above. Bilateral complex adnexal masses with thick septations and heterogenous echogenic textures. Recommendations ----- --------- Please see [facility] documentation from today. The patient is scheduled in four weeks to complete anatomic survey and cervical length ultrasound. Subsequent follow up or other follow up as clinically determined by primary OB provider unless otherwise specified by [facility]. Results forwarded to ordering provider so they can follow up with the patient as necessary. The copy-to physician of this order is GABY Miguel The ordering physician of this order is GUADALUPE Pacheco Procedure Note Radiology, Radiologist, MD - 11/12/2024 THIS EXAM WAS PERFORMED AT [facility] ([place], [place]) NAME: SERVANDO LANGLEY : 2000 SEX: F Accession Number: [id number] ORDERING PHYSICIAN: GUADALUPE SCHMIDT REFERRING PHYSICIAN: GABY WOODS Coding ----- --------- Procedures 25847: Ultrasound, uterus, real time with imagedocumentation, and maternal evaluation plus detailed anatomic examination, transabdominalapproach;single or first gestation 33731: Transvaginal Ultrasound (OB) Indication ----- --------- Screening for Anatomic Survey, Uterine fibroid affecting ,Supervision of high risk (bilateral complex ovaries), Screening for cervical length. History ----- --------- OB History 3. Para 0 [id number] Current ----- --------- Cell free DNA Low Risk analysis Maternal Assessment ----- --------- Physical Exam Height 168 cm, 5 ft 6 in. Weight 77 kg, 170 lb. Initialweight 77 kg, 170 lb. BMI 27.44 kg/m???. Initial BMI 27.44 kg/m???. Weight gain 0 kg, 0 lb Method [...] EFW (oz) 5 oz EFW by: Hadlock (RBX-HS-OA-FL) Extended Tibia 17.7 mm 16w 0d 61% [...] Thorax 4-chamber view. RVOT view. 3-vessel view. 9-nveucf-upaxrapbjjo. Aortic arch view. Ductal arch view. Interventricular [...] 25 mm. Mean 24.3 mm. Vol 7.307 cm??? 2. Size 27 mm x 21 mm. Mean 24.0 mm. Vol 6.312 cm??? Cervix Visualized Approach - Transvaginal: Cervical length 3.83 cm Right Ovary Visualized Size 4.7 cm x 4.3 cm x 3.1 cm. Vol 32.5 cm??? Left Ovary Visualized Size 3.9 cm x 3.8 cm x 2.7 cm. Vol 21.1 cm??? Cul de Sac Visualized. No free fluid visualized Impression ----- --------- Single viable intrauterine consistent with 16w 0d with an PORFIRIO of04/29/2025. Transvaginal cervical length measures 3.83 cm. Amniotic fluid MVP measures 3.6 cm. Uterine fibroid(s) as noted above. Bilateral complex adnexal masses with thick septations and heterogenousechogenic textures. Recommendations ----- --------- Please see [facility] documentation from today. The patient is scheduled in four weeks to complete anatomic survey andcervical length ultrasound. Subsequent follow up or other follow up as clinically determined byprimary OB provider unless otherwise specified by [facility]. Results forwarded to ordering provider so they can follow up with thepatient as necessary. The copy-to physician of this order is GABY Miguel The ordering physician of this order is GUADALUPE Pacheco us Gaby Woods DO IMG OB US PROCEDURES Final Resul t * RECURRENT VAGINITIS (HTRX) (11/05/2024 3:29 PM EDT) [facility] ATOPOBIUM VAGINAE 0 19.961 - 24.689 ppm 11/06/2024 7:37 AM EDT [facility] ATOPOBIUM VAGINAE Not Detected 19.961 - 24.689 ppm 11/06/2024 7:37 AM EDT [facility] BVAB 2,3 (BACTERIAL VAGINOSIS ASSOCIATED BACTERIA 2, 3); MOBILUNCUS SPP 0 19.961 - 24.689 ppm 11/06/2024 7:37 AM EDT [facility] BVAB 2,3 (BACTERIAL VAGINOSIS ASSOCIATED BACTERIA 2, 3); MOBILUNCUS SPP Not Detected 19.961 - 24.689 ppm 11/06/2024 7:37 AM EDT [facility] LINDA ALBICANS, PARAPSILOSIS, TROPICALIS 0 19.961 - 30.770 ppm 11/06/2024 7:37 AM EDT [facility] LINDA ALBICANS, PARAPSILOSIS, TROPICALIS Not Detected 19.961 - 30.770 ppm 11/06/2024 7:37 AM EDT [facility] LINDA GLABRATA 0 23.000 - 32.138 ppm 11/06/2024 7:37 AM EDT [facility] LINDA GLABRATA Not Detected 23.000 - 32.138 ppm 11/06/2024 7:37 AM EDT [facility] LINDA KRUSEI 0 23.000 - 32.271 ppm 11/06/2024 7:37 AM EDT [facility] LINDA KRUSEI Not Detected 23.000 - 32.271 ppm 11/06/2024 7:37 AM EDT [facility] CHLAMYDIA TRACHOMATIS 0 23.000 - 31.467 ppm 11/06/2024 7:37 AM EDT [facility] CHLAMYDIA TRACHOMATIS Not Detected 23.000 - 31.467 ppm 11/06/2024 7:37 AM EDT [facility] GARDNERELLA VAGINALIS 0 19.961 - 24.689 ppm 11/06/2024 7:37 AM EDT [facility] GARDNERELLA VAGINALIS Not Detected 19.961 - 24.689 ppm 11/06/2024 7:37 AM EDT [facility] MEGASPHAERA (TYPES 1, 2) 0 19.961 - 24.689 ppm 11/06/2024 7:37 AM EDT [facility] MEGASPHAERA (TYPES 1, 2) Not Detected 19.961 - 24.689 ppm 11/06/2024 7:37 AM EDT [facility] NEISSERIA GONORRHOEAE 0 23.000 - 32.117 ppm 11/06/2024 7:37 AM EDT [facility] NEISSERIA GONORRHOEAE Not Detected 23.000 - 32.117 ppm 11/06/2024 7:37 AM EDT [facility] TRICHOMONAS VAGINALIS 0 23.000 - 32.119 ppm 11/06/2024 7:37 AM EDT [facility] TRICHOMONAS VAGINALIS Not Detected 23.000 - 32.119 ppm 11/06/2024 7:37 AM EDT [facility] MYCOPLASMA GENITALIUM 0 19.961 - 24.689 ppm 11/06/2024 7:37 AM EDT [facility] MYCOPLASMA GENITALIUM Not Detected 19.961 - 24.689 ppm 11/06/2024 7:37 AM EDT [facility] Tissue 11/05/2024 3:29 PM EDT 11/06/2024 2:40 AM EDT us Gaby Woods DO LAB BLOOD ORDERABLES Final Resul t [facility] [address] [place] [address] * POCT urinalysis dipstick manually resulted (11/05/2024 2:15 PM EDT) Only the most recent of3 resultswithin the time period is included. Color, UA Yellow Clarity, UA Clear Glucose, UA Negative Negative - 1999(110) ++++ mg/dL Bilirubin, UA Negative Negative - 4(70) +++ mg/dL Ketones, UA Negative Negative - 160(16) ++++ mg/dL Spec Grav, UA 1.020 1 - 1.03 Blood, UA Negative Negative - 50 Clarke/mcL pH, UA 5.5 5 - 9 Protein, UA Negative Negative - 1999(20) ++++ mg/dL Urobilinogen, UA 1.0 0.2 - 12 mg/dL Leukocytes, UA Negative Negative - 500+++ Kamaljit/mcL Nitrite, UA Negative Negative - Positive Urine 11/05/2024 2:15 PM EDT Gaby Woods DO POINT OF CARE TEST ENTER/EDIT OR DERABLES Final Result * IGP,APTIMA HPV,AGE GDLN (11/05/2024 1:57 PM EDT) AGE GDLN ACOG TESTING Note . [facility] Comment: TESTS RESULT FLAG UNITS REF RANGE LAB Clinician Provided Cytology Information Source.............Cervix No. of containers..01 ThinPrep Vial Age Algo ACOG Nery... -12 06 FLAG LEGEND: L-Low Normal,H-High Normal,LL-Alert Low,HH-Alert High <-Panic Low,>-Panic High,A-Abnormal,AA-Critical Abnormal Performed at: 01 =G [facility] [address] [place] [address] Gypsy Mtz MD, IGP, RFX APTIMA HPV ASCU Note . [facility] Comment: TESTS RESULT FLAG UNITS REF RANGE LAB DIAGNOSIS: 02 NEGATIVE FOR INTRAEPITHELIAL LESION OR MALIGNANCY. THIS SPECIMEN WAS RESCREENED PART OF OUR COMPREHENSIVE OPHTHALMOLOGIST PROGRAM. Specimen adequacy: 02 Satisfactory for evaluation. Endocervical and/or squamous metaplastic cells (endocervical component) are present. Performed by: 02 Felicity Rosen, Can Reconditioner ([facility]) QC reviewed by: 02 Esme Mahoney, Can Reconditioner ([facility]) . 02 Note: Note 02 The Pap smear is a screening test designed to aid in the detection of premalignant and malignant conditions of the uterine cervix. It is not a diagnostic procedure and should not be used as the sole means of detecting cervical cancer. Both false-positive and false-negative reports do occur. Test Methodology: Note 02 This liquid based ThinPrep(R) pap test was screened with the use of an image guided system. . 02 The HPV DNA reflex criteria were not met with this specimen result therefore, no HPV testing was performed. FLAG LEGEND: L-Low Normal,H-High Normal,LL-Alert Low,HH-Alert High <-Panic Low,>-Panic High,A-Abnormal,AA-Critical Abnormal Performed at: [address] [address] Gypsy Mtz MD, Performed at: =G - [facility] [address] [id number] Supervisor Lump Room: Gypsy Mtz MD, Phone: [phone] Performed at: - [facility] [id number] Supervisor Lump Room: Gypsy Mtz MD, Phone: [phone] 11/05/2024 1:57 PM EDT 11/05/2024 9:04 PM EDT Narrative [facility] - 11/11/2024 3:09 PM EDT SPATULA-ALONE CERVIX Gaby Peggy DO LAB BLOOD ORDERABLES Final Resul t [facility] * PATHOLOGY REQUEST FOR LAB GIA (11/05/2024 12:00 AM EDT) PATHOLOGY REQUEST FOR LAB GIA 11/12/2024 8:15 AM EDT [facility] Comment:See report. Scanned copy available in EMR. Other Topography unknown / Unknown 11/05/2024 11/06/2024 1:31 PM EDT Narrative [facility] - 11/12/2024 8:15 AM EDT SKIN TAG Gaby Peggy DO LAB BLOOD ORDERABLES Final Resul t Performing Organization Address City/[facility]/ZIP Co de Phone Number [facility] [address] [place] [address], [facility] [address] [place] [address] * BOX TEST (09/24/2024 10:25 AM EDT) BOX TEST SENT OUT Critical access hospital BOX[facility] hospital BOX[facility] 09/24/24 [facility] 09/24/2024 10:2 5 AM EDT 09/24/2024 10:30 AM EDT Narrative [facility] - 09/24/2024 2:09 PM EDT UNITY BOX Gaby Peggy LAB BLOOD ORDERABLES Final Resul t Performing Organization Address City/[facility]/ZIP Co de Phone Number * HBSAG SCREEN (09/24/2024 10:25 AM EDT) [facility] HBSAG SCREEN Negative Negative [facility] Comment: Performed at: [address] [id number] Supervisor Lump Room: Jordin Rao PhD, Phone: [phone] 09/24/2024 10:2 5 AM EDT 09/24/2024 10:30 AM EDT Narrative [facility] - 09/25/2024 12:10 PM EDT [facility] Peggy LAB BLOOD ORDERABLES Final Resul t Performing Organization Address [facility] Co de Phone Number * RAPID PLASMA REAGIN, QUANT (09/24/2024 10:25 AM EDT) [facility] RAPID PLASMA REAGIN, QUANT Non Reactive NonRea<1: 1 titer [facility] Comment: Please Note: This test does not meet current guidelines for screening and diagnosis of syphilis. This test is intended for following treatment response in patients being treated for syphilis infection. To screen for syphilis infection, a reflex cascade that includes both RPR and a treponema-specific assay should be utilized, such as Treponema pallidum (Syphilis) Screening [place] (710518) or Rapid Plasma Reagin (RPR) Test With Reflex to Quantitative RPR and Confirmatory Treponema pallidum Antibodies (184713). Performed at: [address] [id number] Supervisor Lump Room: Jordin Rao PhD, Phone: [phone] 09/24/2024 10:2 5 AM EDT 09/24/2024 10:30 AM EDT Narrative [facility] - 09/25/2024 12:10 PM EDT us Gaby Peggy DO LAB BLOOD ORDERABLES Final Resul t Performing Organization Address [facility] Co de Phone Number * HIV AB/P24 AG WITH REFLEX (09/24/2024 10:25 AM EDT) HIV AB/P24 AG SCREEN Non Reactive Non Reactive TB Comment: HIV-1/HIV-2 antibodies and HIV-1 p24 antigen were NOT detected. There is no laboratory evidence of HIV infection. HIV Negative Performed at: [address] [id number] Supervisor Lump Room: Jordin Rao PhD, Phone: [phone] 09/24/2024 10:2 5 AM EDT 09/24/2024 10:30 AM EDT [facility] - 09/25/2024 5:07 AM EDT us [employer] DO LAB BLOOD ORDERABLES Final Resul t Performing Organization Address [facility] de Phone Number * HCV ANTIBODY RFX TO QUANT PCR (09/24/2024 10:25 AM EDT) Pathologist [facility] HCV AB Non Reactive Non Reactive TB INTERPRETATION: Comment . [facility] Comment: Not infected with HCV unless early or acute infection is suspected (which may be delayed in an immunocompromised individual), or other evidence exists to indicate HCV infection. Performed at: [address] [id number] Supervisor Lump Room: Jordin Rao PhD, Phone: [phone] 09/24/2024 10:2 5 AM EDT 09/24/2024 10:30 AM EDT [facility] - 09/25/2024 8:09 AM EDT us Gaby Peggy DO LAB BLOOD ORDERABLES Final Resul t Performing Organization Address [facility] Co de Phone Number [facility] * MLR HEMOGLOBIN A1C (09/24/2024 10:25 AM EDT) GLYCOHEMOGLOBIN A1C 5.1 4.5 - 6.2 % [facility] Comment: ADA RECOMMENDED LIMIT 4.0 - 6.0 ADA THERAPEUTIC TARGET < 7.0 ACTION SUGGESTED > 7.0 ESTIMATED AVERAGE GLUCOSE 100 mg/dL TB 09/24/2024 10:2 5 AM EDT 09/24/2024 10:30 AM EDT Narrative [facility] - 09/24/2024 10:49 AM EDT Gaby Peggy DO [facility] Final Result * ALL TYPE AND SCREEN (09/24/2024 10:25 AM EDT) Pathologist [facility] BLOOD TYPE O Positive [facility] ANTIBODY SCREEN NEGATIVE TB 09/24/2024 10:2 5 AM EDT 09/24/2024 10:30 AM EDT Narrative [facility] - 09/24/2024 12:08 PM EDT [facility] , Gaby Peggy DO CLIN[facility] Final Result Performing Organization Address [facility] Co de Phone Number * ALL RUBELLA IGG AB (09/24/2024 10:25 AM EDT) Pathologist [facility] RUBELLA ANTIBODIES, IGG 5.37 Immune >0.99 index [facility] Comment: Non-immune <0.90 Equivocal 0.90 - 0.99 Immune >0.99 Performed at: - [facility] [id number] Supervisor Lump Room: Jordin Rao PhD, Phone: [phone] 09/24/2024 10:2 5 AM EDT 09/24/2024 10:30 AM EDT Narrative [facility] - 09/25/2024 8:09 AM EDT Gaby Peggy DO [facility] Final Result [facility] * (ABNORMAL) ALL CBC WITH AUTO DIFF (09/24/2024 10:25 AM EDT) [facility] TB WBC 9.2 4.0 - 11.0 10 3/uL TBH TBH RBC 4.33 4.20 - 5.40 10 6/uL TB[facility] TBH HGB 13.5 12.0 - 16.0 g/dL TBH TBH HCT 38.3 36.0 - 48.0 % [facility]H [facility]H MCV 88.5 81.0 - 99.0 fL TBH TBH MCH 31.2 26.7 - 34.0 pg TBH TBH MCHC 35.2 29.9 - 35.2 g/dL TBH TBH RDW 11.8 11.0 - 15.0 % TBH TBH PLT 281 150 - 450 10 3/uL TBH TBH MPV 10.1 9.5 - 13.5 fL [facility]H NEUTROPHILS PERCENT AUTO 73.9 43.0 - 75.0 [...] Narrative [facility] - 09/24/2024 11:12 AM EDT Gaby Peggy DO [facility] Final Result Performing Organization Address City/[facility]/ZIP Co de Phone Number * [facility] DRUG SCREEN RAPID (URINE) (09/24/2024 10:18 AM [...] 10:30 AM EDT Narrative [facility] - 09/24/2024 11:44 AM EDT Gaby Altamiranoo DO [facility] Final Result [facility] * (ABNORMAL) POCT , urine manually resulted (09/19/2024 3:23 PM EDT) Preg Test, Ur Positive Negative Urine 09/19/2024 3:23 PM EDT Gaby Woods DO POINT OF CARE TEST ENTER/EDIT [...] II, MD, PHD at 22-Sep-2024 08:21:31 PM [facility] Procedure Note Markie Crawford MD - [...] signed by MARKIE CRAWFORD II, MD, PHD [id number] 08:21:31 PM [facility] us Gaby Peggy DO IMG OB US PROCEDURES Final Resul t * [facility] PREG QUANT HCG (08/26/2024 1:28 PM EDT) Only the most recent of6 resultswithin the time period is included. HCG QUANTITATIVE 2,576 mIU/mL [facility] Comment: 5-50 0.2-1 WEEK 50-500 1-2 WEEKS 100-5,000 2-3 WEEKS 500-10,000 3-4 WEEKS 1,000-50,000 4-5 WEEKS 10,000-100,000 5-6 WEEKS 15,000-200,000 6-8 WEEKS 10,000-100,000 2-3 MONTHS 08/26/2024 1:28 PM EDT 08/26/2024 1:28 PM EDT Narrative [facility] - 08/26/2024 2:34 PM EDT us Gaby Peggy DO [facility] Final Result Performing Organization Address [facility] de Phone Number [facility] * ALL PROGESTERONE (08/24/2024 7:06 AM EDT) [facility] PROGESTERONE 55.2 . ng/mL [facility] Comment: Follicular phase 0.1 - 0.9 Luteal phase 1.8 - 23.9 Ovulation phase 0.1 - 12.0 First trimester 11.0 - 44.3 Second trimester 25.4 - 83.3 Third trimester 58.7 - 214.0 Postmenopausal 0.0 - 0.1 Performed at: - [facility] [id number] Supervisor Lump Room: Jordin Rao PhD, Phone: [phone] 08/24/2024 7:06 AM EDT 08/24/2024 7:09 AM EDT Narrative [facility] - 08/25/2024 9:08 AM EDT us Gaby Peggy DO [facility] Final Result Performing Organization Address City/[facility] Co de Phone Number [facility] from Last 3 Months Insurance BCBS Care Teams Product Technology Scientist Relationship Specialty Start Date End Date Alberto Mayes MD [address] [place] [address] PCP - General 05/02/23 Paloma Vazquez DO [address] [facility] [address] [place] [address] Referring Physician Obstetrics and Gynecology 04/25/23
--- OUTSIDE RECORDS SUMMARY | 2024-11-12 18:28 | XMS_ITS | Encounter Summary ---
Author Organization [facility] Address [address] [place] [address] Care Team Providers Care Straightener And Aligner Name Role Phone Paloma Vazquez DO Unavailable [phone] Alberto Mayes MD Primary Care Provider Encounter Details Date Type Department Care Team (Late st Contact Info) Description 11/05/2024 Clinisync Result Encounter NOMS External Department Unsolicited Jack Woods DO [address] [facility] [place] [address] Social History Tobacco Use Types Packs/Day Years [...] PM EDT Routine [facility] BCP OB [address] [place] [phone] Jayla Leiva PA [address] [facility] [place] [address] documented as of this encounter Procedures Procedure Name Priority Date/Time Associated Diagnosis Comments IGP,APTIMA HPV,AGE GDLN Routine 11/05/2024 1:57 PM EDT documented in this encounter Results * IGP,APTIMA HPV,AGE GDLN (11/05/2024 1:57 PM EDT) AGE GDLN ACOG TESTING Note . [facility] Comment: TESTS RESULT FLAG UNITS REF RANGE LAB Clinician Provided Cytology Information Source.............Cervix No. of containers..01 ThinPrep Vial Age Algo ACOG Nery... 01 FLAG LEGEND: L-Low Normal,H-High Normal,LL-Alert Low,HH-Alert High <-Panic Low,>-Panic High,A-Abnormal,AA-Critical Abnormal Performed at: 01 =[facility] [address] [place], [place] [address] [address] Gypsy Mtz MD, IGP, RFX APTIMA HPV ASCU Note . [facility] Comment: TESTS RESULT FLAG UNITS REF RANGE LAB DIAGNOSIS: 02 NEGATIVE FOR INTRAEPITHELIAL LESION OR MALIGNANCY. THIS SPECIMEN WAS RESCREENED PART OF OUR INJECTION MOLDING MACHINE OPERATOR PROGRAM. Specimen adequacy: 02 Satisfactory for evaluation. Endocervical and/or squamous metaplastic cells (endocervical component) are present. Performed by: 02 Felicity Rosen, Heel Dipper ([facility]) QC reviewed by: 02 Esme Mahoney, Heel Dipper ([facility]) . 02 Note: Note 02 The Pap [...] <-Panic Low,>-Panic High,A-Abnormal,AA-Critical Abnormal Performed at: [address] [place] [address] Gypsy Mtz MD, Performed at: = - [facility] [address], [place] [id number] Meter Calibrator: Gypsy Mtz MD, Phone: [phone] Performed at: [facility] [address] [id number] Meter Calibrator: Gypsy Mtz MD, Phone: [phone] 11/05/2024 1:57 PM EDT 11/05/2024 9:04 PM EDT Narrative [facility] - 11/11/2024 3:09 PM EDT SPATULA-ALONE CERVIX us Jack Peggy DO LAB BLOOD ORDERABLES Final Resul t [facility] documented in this encounter Visit Diagnoses Not on filedocumented in this encounter Care Teams Straightener And Aligner Relationship Specialty Start Date End Date Alberto Mayes MD [address] [place] [address] PCP - General 05/02/23 Paloma Vazquez DO [address] [place] [address] Referring Physician Obstetrics and Gynecology 04/25/23 documented as of this encounter
--- OUTSIDE RECORDS SUMMARY | 2024-11-12 18:28 | XMS_ITS | Encounter Summary ---
Author Organization [facility] Address [address] [place] [address] Care Team Providers Care Goat Driver Name Role Phone Paloma Vazquez DO Unavailable [phone] Alberto Mayes MD Primary Care Provider [phone] Encounter Details Date Type Department Care Team (Late st Contact Info) Description 11/05/2024 External Result Encounter NOMS External Department Unsolicited Jack Woods DO [address] [facility] [address] [place], [place] [id number] Social History Tobacco Use Types Packs/Day Years [...] PM EDT Routine [facility] BCP OB [address] [place] [phone] Jayla Leiva PA [address] [facility] [place] [address] documented as of this encounter Procedures Procedure Name Priority Date/Time Associated Diagnosis Comments PATHOLOGY REQUEST FOR LAB GIA Routine 11/05/2024 12:00 AM EDT documented in this encounter Results * PATHOLOGY REQUEST FOR LAB GIA (11/05/2024 12:00 AM EDT) PATHOLOGY REQUEST FOR LAB GIA 11/12/2024 8:15 AM EDT [facility] Comment:See report. Scanned copy available in EMR. Other Topography unknown / Unknown 11/05/2024 11/06/2024 1:31 PM EDT Narrative [facility] - 11/12/2024 8:15 AM EDT SKIN TAG us Jack Altamiranoo DO LAB BLOOD ORDERABLES Final Resul t Performing Organization Address City/State/[facility] Co de Phone Number [facility] [address] [place] [address], [facility] [address] [place] [address] documented in this encounter Visit Diagnoses Not on filedocumented in this encounter Care Teams Goat Driver Relationship Specialty Start Date End Date Alberto Mayes MD [address] [place] [address] PCP - General 05/02/23 Paloma Vazquez DO [address] [place] [address] Referring Physician Obstetrics and Gynecology 04/25/23 documented as of this encounter
--- OUTSIDE RECORDS SUMMARY | 2024-11-12 18:29 | XMS_ITS | Encounter Summary ---
Author Organization [facility] Address [address] [place] [address] Care Team Providers Care Rail Car Loader Name Role Phone Paloma Vazquez DO Unavailable Alberto Mayes MD Primary Care Provider Encounter Details Date Type Department Care Team (Late st Contact Info) Description 12/08/2023 Abstract [facility] BCP OB [address] [place] [address] Corie Cavanaugh LPN [address] [place] [address] Social History Tobacco Use Types [...] BCP OB [address] [place] [address] Jayla Leiva PA [address] [facility] [place] [address] documented as of this encounter Visit Diagnoses Not on filedocumented in this encounter Care Teams Rail Car Loader Relationship Specialty Start Date End Date Alberto Mayes MD [address] [facility] [address] [place] [address] PCP - General 05/02/23 Paloma Vazquez DO [address] [facility] [address] [place] [address] Referring Physician Obstetrics and Gynecology 04/25/23 documented as of this encounter
--- OUTSIDE RECORDS SUMMARY | 2024-11-12 18:29 | XMS_ITS | Encounter Summary ---
Author Organization [facility] Address [address] [place] [address] Care Team Providers Care Crime Specialist Name Role Phone Paloma Vazquez DO Unavailable [phone] Alberto Mayes MD Primary Care Provider Encounter Details Date Type Department Care Team (Late st Contact Info) Description 11/12/2024 Abstract [facility] BCP OB [address] [place] [address] Jack Woods [facility] [place], [facility]11 Social History Tobacco Use Types Packs/Day [...] Routine [facility] BCP OB [address] [place] [address] Jayla Leiva PA [address] [place] [address] [place] [address] documented as of this encounter Visit Diagnoses Not on filedocumented in this encounter Care Teams Crime Specialist Relationship Specialty Start Date End Date Alberto Mayes MD [address] [address] PCP - General 05/02/23 Paloma Vazquez DO [address] [facility] [address] [place] [address] Referring Physician Obstetrics and Gynecology 04/25/23 documented as of this encounter
--- OUTSIDE RECORDS SUMMARY | 2024-11-12 18:29 | XMS_ITS | Encounter Summary ---
Author Organization [facility] Address [address] [place] [address] Care Team Providers Care Assembly Lead Person Name Role Phone Paloma Vazquez DO Unavailable [phone] Alberto Mayes MD Primary Care Provider Encounter Details Date Type Department Care Team (Late st Contact Info) Description 12/06/2023 Abstract [facility] BCP OB [address] [facility] [address] Corie Cavanaugh LPN [address] [place] [address] Social History Tobacco Use Types [...] PM EDT Routine [facility] BCP OB [address] [facility] [place] [address] Jayla Leiva PA [address] [place] [address] documented as of this encounter Visit Diagnoses Not on filedocumented in this encounter Care Teams Assembly Lead Person Relationship Specialty Start Date End Date Alberto Mayes MD [address] [facility] [address] [place] [address] PCP - General 05/02/23 Paloma Vazquez DO [address] [facility] [address] [place] [address] Referring Physician Obstetrics and Gynecology 04/25/23 documented as of this encounter
--- OUTSIDE RECORDS SUMMARY | 2024-11-12 18:29 | XMS_ITS | Encounter Summary ---
Author Organization [facility] Address [address] [place] [address] Care Team Providers Care Proposal Rep Name Role Phone Paloma Vazquez DO Unavailable [phone] Alberto Mayes MD Primary Care Provider Encounter Details Date Type Department Care Team (Late st Contact Info) Description 01/01/2024 Abstract [facility] BCP OB [address] [place] [address] Jack Woods [facility] [address] [place], [facility]11 Social History Tobacco Use Types Packs/Day [...] Routine [facility] BCP OB [address] [place] [address] Jayla Leiva PA [address] [place], [facility]11 documented as of this encounter Visit Diagnoses Not on filedocumented in this encounter Care Teams Proposal Rep Relationship Specialty Start Date End Date Alberto Mayes MD [address] [facility] [address] [place] [address] PCP - General 05/02/23 Paloma Vazquez DO [address] [facility] [address] [place] [address] Referring Physician Obstetrics and Gynecology 04/25/23 documented as of this encounter
--- OUTSIDE RECORDS SUMMARY | 2024-11-12 18:29 | XMS_ITS | Encounter Summary ---
Author Organization [facility] Address [address] [place] [address] Care Team Providers Care Cable Dispatcher Name Role Phone Paloma Vazquez DO Unavailable [phone] Alberto Mayes MD Primary Care Provider [phone] Encounter Details Date Type Department Care Team (Late st Contact Info) Description 11/05/2024 External Result Encounter NOMS External Department Unsolicited Jack Woods DO [address] [facility] [address] [place], [place] [id number] Social History Tobacco Use Types Packs/Day Years [...] PM EDT Routine [facility] BCP OB [address] [facility] [place] [phone] Jayla Leiva PA [address] [facility] [place] [address] documented as of this encounter Procedures Procedure Name Priority Date/Time Associated Diagnosis Comments RECURRENT VAGINITIS (HTRX) Routine 11/05/2024 3:29 PM EDT documented in this encounter Results * RECURRENT VAGINITIS (HTRX) (11/05/2024 3:29 PM EDT) [facility] ATOPOBIUM VAGINAE 0 19.961 - 24.689 ppm 11/06/2024 7:37 AM EDT [facility] ATOPOBIUM VAGINAE Not Detected 19.961 - 24.689 ppm 11/06/2024 7:37 AM EDT [facility] BVAB 2,3 (BACTERIAL VAGINOSIS ASSOCIATED BACTERIA 2, 3); MOBILUNCUS SPP 0 19.961 - 24.689 ppm 11/06/2024 7:37 AM EDT [facility] BVAB 2,3 (BACTERIAL VAGINOSIS ASSOCIATED BACTERIA 2, 3); MOBILUNCUS SPP Not Detected 19.961 - 24.689 ppm 11/06/2024 7:37 AM EDT [facility] LINDA ALBICANS, PARAPSILOSIS, TROPICALIS 0 19.961 - 30.770 ppm 11/06/2024 7:37 AM EDT [facility] LINDA ALBICANS, PARAPSILOSIS, TROPICALIS Not Detected 19.961 - 30.770 ppm 11/06/2024 7:37 AM EDT [facility] LINDA GLABRATA 0 23.000 - 32.138 ppm 11/06/2024 7:37 AM EDT [facility] LINDA GLABRATA Not Detected 23.000 - 32.138 ppm 11/06/2024 7:37 AM EDT [facility] LINDA KRUSEI 0 23.000 - 32.271 ppm 11/06/2024 7:37 AM EDT [facility] LINDA KRUSEI Not Detected 23.000 - 32.271 ppm 11/06/2024 7:37 AM EDT [facility] CHLAMYDIA TRACHOMATIS 0 23.000 - 31.467 ppm 11/06/2024 7:37 AM EDT [facility] CHLAMYDIA TRACHOMATIS Not Detected 23.000 - 31.467 ppm 11/06/2024 7:37 AM EDT [facility] GARDNERELLA VAGINALIS 0 19.961 - 24.689 ppm 11/06/2024 7:37 AM EDT [facility] GARDNERELLA VAGINALIS Not Detected 19.961 - 24.689 ppm 11/06/2024 7:37 AM EDT [facility] MEGASPHAERA (TYPES 1, 2) 0 19.961 - 24.689 ppm 11/06/2024 7:37 AM EDT [facility] MEGASPHAERA (TYPES 1, 2) Not Detected 19.961 - 24.689 ppm 11/06/2024 7:37 AM EDT [facility] NEISSERIA GONORRHOEAE 0 23.000 - 32.117 ppm 11/06/2024 7:37 AM EDT [facility] NEISSERIA GONORRHOEAE Not Detected 23.000 - 32.117 ppm 11/06/2024 7:37 AM EDT [facility] TRICHOMONAS VAGINALIS 0 23.000 - 32.119 ppm 11/06/2024 7:37 AM EDT [facility] TRICHOMONAS VAGINALIS Not Detected 23.000 - 32.119 ppm 11/06/2024 7:37 AM EDT [facility] MYCOPLASMA GENITALIUM 0 19.961 - 24.689 ppm 11/06/2024 7:37 AM EDT [facility] MYCOPLASMA GENITALIUM Not Detected 19.961 - 24.689 ppm 11/06/2024 7:37 AM EDT [facility] Tissue 11/05/2024 3:29 PM EDT 11/06/2024 2:40 AM EDT us Jack Peggy DO LAB BLOOD ORDERABLES Final Resul t [facility] [address] [place] [address] documented in this encounter Visit Diagnoses Not on filedocumented in this encounter Care Teams Cable Dispatcher Relationship Specialty Start Date End Date Alberto Mayes MD [address] [place] [address] PCP - General 05/02/23 Paloma Vazquez DO [address] [place] [address] Referring Physician Obstetrics and Gynecology 04/25/23 documented as of this encounter
--- OUTSIDE RECORDS SUMMARY | 2024-11-12 18:29 | XMS_ITS | Encounter Summary ---
Author Organization [facility] Address [address] [place] [address] Care Team Providers Care Cargoman Name Role Phone Paloma Vazquez DO Unavailable Alberto Mayes MD Primary Care Provider Encounter Details Date Type Department Care Team (Late st Contact Info) Description 01/08/2024 Abstract [facility] BCP OB [address] [place] [address] Jack Woods [facility] [address] [place], [facility]11 Social History Tobacco Use Types Packs/Day Years [...] Routine [facility] BCP OB [address] [place] [address] Jayla Leiva PA [address] [place], [facility]11 documented as of this encounter Visit Diagnoses Not on filedocumented in this encounter Care Teams Cargoman Relationship Specialty Start Date End Date Alberto Mayes MD [address] [facility] 210 [place] [address] PCP - General 05/02/23 Paloma Vazquez DO [address] [facility] [address] [place] [address] Referring Physician Obstetrics and Gynecology 04/25/23 documented as of this encounter
--- OUTSIDE RECORDS SUMMARY | 2024-11-12 18:29 | XMS_ITS | Encounter Summary ---
Author Organization [facility] Address [address] [place] [address] Care Team Providers Care Catalyst Plant Supervisor Name Role Phone Paloma Vazquez DO Unavailable [phone] Alberto Mayes MD Primary Care Provider Encounter Details Date Type Department Care Team (Late st Contact Info) Description 05/01/2023 External Result Encounter NOMS External Department Unsolicited Paloma Vazquez, DO [address] [place] [address] Social History Tobacco Use Types Packs/Day Years [...] PM EDT Routine [facility] BCP OB [address] [facility] [place] [phone] Jayla Leiva PA [address] [facility] [place] [address] documented as of this encounter Procedures Procedure Name Priority Date/Time Associated Diagnosis Comments XR HYSTEROSALPINGOGRAM 11:41 AM EST documented in this encounter Results * XR hysterosalpingogram (05/01/2023 11:41 AM EST) Anatomical Region Laterality Modality Uterus Radiographic Jennifer ging 05/01/2023 11:4 1 AM EST Impressions 05/02/2023 2:28 PM EST Normal hysterosalpingogram. Impression dictated by: Librado Haney M.D.05/01/2023 11:43 AM Dictation Location: [place] [address] Transcribed By: [facility] 05/01/23 1143 Dictated By: Librado Haney II, MD 05/01/23 1141 Signed By: <Electronically signed by Librado Haney II, MD in OV> 05/01/23 1143 Narrative 05/02/2023 2:28 PM EST [facility] [address] Fluoroscopy Report Signed Patient: Daphney Montesinos MR#: [id number] : 2000 Acct:[id number] Age/Sex: 23 / F ADM Date: 05/01/23 Loc: XD Room: Type: [facility] Attending Dr: Paloma Vazquez DO [...] hysterosalpingography Procedure Note Radiology, Radiologist, - 06/27/2023 [facility] [address] [address] Fluoroscopy Report Signed Patient: Daphney Montesinos JMR#: [id number] : 2000Acct:[id number] Age/Sex: 23 / FADM Date: 05/01/23 Loc: XD Room:Type: [facility] Attending Dr: Paloma Vazquez DO [...] Librado Haney M.D.05/01/2023 11:43 AM Dictation Location: [place] [address] Transcribed By: [facility] 05/01/23 1143 Dictated By: Librado Haney II, MD 05/01/23 1141 Signed By: <Electronically signed by Librado Haney II, MD inOV> 05/01/23 1143 Paloma Vazquez DO IMG XR PROCEDURES Edited Re sult - Final documented in this encounter Visit Diagnoses Not on filedocumented in this encounter Care Teams Catalyst Plant Supervisor Relationship Specialty Start Date End Date Alberto Mayes MD [address] [place] [address] PCP - General 05/02/23 Paloma Vazquez DO [address] [place] [address] Referring Physician Obstetrics and Gynecology 04/25/23 documented as of this encounter
--- OUTSIDE RECORDS SUMMARY | 2024-11-12 18:29 | XMS_ITS | Encounter Summary ---
Author Organization [facility] Address [address] [place] [address] Care Team Providers Care Knotting Machine Operator Name Role Phone Paloma Vazquez DO Unavailable [phone] Alberto Mayes MD Primary Care Provider Encounter Details Date Type Department Care Team (Late st Contact Info) Description 12/11/2023 Abstract [facility] BCP OB [address] [place] [address] Jack Woods [facility] [address] [place], [facility]11 Social History Tobacco Use Types Packs/Day Years [...] Routine [facility] BCP OB [address] [place] [address] Jayla Leiva PA [address] [place], [facility]11 documented as of this encounter Visit Diagnoses Not on filedocumented in this encounter Care Teams Knotting Machine Operator Relationship Specialty Start Date End Date Alberto Mayes MD [address] [facility] [address] [place] [address] PCP - General 05/02/23 Paloma Vazquez DO [address] [facility] [address] [place] [address] Referring Physician Obstetrics and Gynecology 04/25/23 documented as of this encounter
--- OUTSIDE RECORDS SUMMARY | 2024-11-12 18:29 | XMS_ITS | Encounter Summary ---
Author Organization [facility] Address [address] [place] [address] Care Team Providers Care Supervisory Investigative Specialist Name Role Phone Paloma Vazquez DO Unavailable Alberto Mayes MD Primary Care Provider Encounter Details Date Type Department Care Team (Late st Contact Info) Description 01/01/2024 Abstract [facility] BCP OB [address] [place] [address] Jack Woods [facility] [address] [place], [facility]11 [...] PM EDT Routine [facility] BCP OB [address] [place] [address] Jayla Leiva PA [address] [place], [facility]11 documented as of this encounter Visit Diagnoses Not on filedocumented in this encounter Care Teams Supervisory Investigative Specialist Relationship Specialty Start Date End Date Alberto Mayes MD [address] [facility] [address] [place] [address] PCP - General 05/02/23 Paloma Vazquez DO [address] [facility] [address] [place] [address] Referring Physician Obstetrics and Gynecology 04/25/23 documented as of this encounter
--- OUTSIDE RECORDS SUMMARY | 2024-11-12 18:29 | XMS_ITS | Encounter Summary ---
Author Organization [facility] Address [address] [place] [address] Care Team Providers Care Student Financial Services Counselor Name Role Phone Paloma Vazquez DO Unavailable Alberto Mayes MD Primary Care Provider Encounter Details Date Type Department Care Team (Late st Contact Info) Description 12/06/2023 Abstract [facility] BCP OB [address] [facility] [place] [address] Corie Cavanaugh LPN [address] [place] [address] Social History Tobacco Use Types [...] PM EDT Routine [facility] BCP OB [address] [facility] [place] [address] Jayla Leiva PA [address] [place] [address] documented as of this encounter Visit Diagnoses Not on filedocumented in this encounter Care Teams Student Financial Services Counselor Relationship Specialty Start Date End Date Alberto Mayes MD [address] [facility] [address] [place] [address] PCP - General 05/02/23 Paloma Vazquez DO [address] [facility] [address] [place] [address] Referring Physician Obstetrics and Gynecology 04/25/23 documented as of this encounter
--- OUTSIDE RECORDS SUMMARY | 2024-11-12 18:29 | XMS_ITS | Encounter Summary ---
Author Organization [facility] Address [address] [place] [address] Care Team Providers Care Income Tax Consultant Name Role Phone Paloma Vazquez DO Unavailable [phone] Alberto Mayes MD Primary Care Provider Encounter Details Date Type Department Care Team (Late st Contact Info) Description 12/27/2023 Abstract [facility] BCP OB [address] [facility] [address] Corie Cavanaugh LPN [address] [place] [address] Social History Tobacco Use Types [...] PM EDT Routine [facility]S BCP OB [address] [facility] [address] Jayla Leiva PA [address] [facility] [place] [address] documented as of this encounter Visit Diagnoses Not on filedocumented in this encounter Care Teams Income Tax Consultant Relationship Specialty Start Date End Date Alberto Mayes MD [address] [facility] [address] [place] [address] PCP - General 05/02/23 Paloma Vazquez DO [address] [facility] [address] [place] [address] Referring Physician Obstetrics and Gynecology 04/25/23 documented as of this encounter
--- OUTSIDE RECORDS SUMMARY | 2024-11-12 18:29 | XMS_ITS | Encounter Summary ---
Author Organization [facility] tem Address [id number] [address] [place] [address] Care Team Providers Care Machine Deburrer Name Role Phone Unavailable Primary Care Provider Unavailabl e Encounter Details Date Type Department Care Team (Late Contact Info) Description 10/04/2024 Orders Only Maternal- Medicine at [facility] [address] [place] [address] Ref Prov, [place] [address] Social History Tobacco Use Types Packs/Day Years [...] 12/10/2024 1:30 PM EDT Appointment Maternal Medicine [address] [place] [address] documented as of this encounter Procedures Procedure [...]
--- OUTSIDE RECORDS SUMMARY | 2024-11-12 18:29 | XMS_ITS | Clinical Summary ---
Author Organization [facility] tem Address [id number] [address] [place] [address] Care Team Providers Care Brood Station Manager Name Role Phone Unavailable Primary Care [...] by mouth in the morning. Active PNV 84-bxsb-vxyseq folate-dha 29 mg iron-1 mg -350 mg comb pack,tablet DR,capsule DR Take 1 tablet by mouth in the morning. Active progesterone (PROMETRIUM) 200 mg capsule Take 1 capsule (200 mg total) by mouth in the morning. 11/13/19 25 Discontinued Encounters Date Type Department Care Team Description 11/12/2024 10:00 AM EDT Office Visit Maternal- Medicine at [facility] [address] [place] [phone] Samantha Peres MD Adnexal mass (Primary Dx); 16 weeks gestation of ; Uterine fibroids affecting in second trimester; Localized swelling of right lower extremity 11/12/2024 8:33 AM EDT Hospital Encounter [facility] US Imaging [address] [place] [id number] Encounter for anatomic survey 11/12/2024 Orders Only Maternal- Medicine at [facility] [address] [place] [address] Jayla Avina, BRIANA Adnexal mass (Primary Dx); Uterine fibroids affecting in second trimester; Localized swelling of right lower extremity 11/12/2024 Travel 10/04/2024 Orders Only Maternal- Medicine at [facility] [address] [place] [address] Ref Prov, Not In System 10/04/2024 Abstract Maternal- Medicine at [facility] [address] [place] [address] Samantha Peres MD from Last 3 Months Family History Medical History Relation Name Comments Developmental delay Cousin Heart defect Cousin Autoimmune disease Father RA Hypertension Father Heart disease Maternal Grandfather Diabetes Maternal Grandmother Kidney disease Paternal Grandfather Liver disease Paternal Grandfather Heart disease Paternal Grandmother Autism Neg Hx Bleeding Disorder Neg Hx Cancer Neg Hx Clotting disorder Neg Hx Down syndrome Neg Hx Dysfunctional uterine bleeding Neg Hx Sudden Neg Hx Relation Name Status Comments Cousin Alive Father Maternal Grandfather Maternal Grandmother Paternal Grandfather [...] Mass Index 27.48 11/12/2024 8:47 AM EDT Plan of Treatment Upcoming Encounters Date Type Department Care Team (Late st Contact Info) Description 12/10/2024 1:30 PM EDT Appointment Maternal Medicine [place] [address] [place] [address] Health Maintenance Due Date Last Done Comments Depression Screening 2010 Adult BMI Follow Up Plan 02/07/2016 Pap Smear 2019 DTaP,Tdap and Td Vaccines (2 - Td or Tdap) 12/24/2019 12/23/2009 Influenza Vaccine 01/13/2025 03/18/2017 Adult BMI Screening 11/12/2025 11/12/2024 Tobacco Screening 11/12/2025 11/12/2024 Medical Devices Not on file Procedures Procedure Name Priority Date/Time Associated Diagnosis Comments FREE CELL DNA (NON-[facility] SEND OUT) Routine 11/12/2024 2:42 PM EDT US [facility] COMPREHENSIVE ANATOMIC SURVEY Routine 11/12/2024 10:10 AM EDT Encounter for anatomic survey ULTRASOUND OFFICE Routine 10/04/2024 2:5 0 PM EDT ULTRASOUND OFFICE Routine 10/04/2024 2:4 8 PM EDT DRUG SCREEN, URINE Routine 09/24/2024 HEMOGLOBIN A1C Routine 09/24/2024 CBC (NO DIFF) Routine 09/24/2024 CBC AND DIFFERENTIAL Routine 09/24/2024 CBC (NO DIFF) Routine 09/24/2024 from Last 3 Months Results * Free Cell DNA (Non-[facility] Send Out) (11/12/2024 2:42 PM EDT) us Not In System Ref Prov LAB BLOOD ORDERABLES Ella hummel Result MANUALLY TRANSCRIBED RESULTS * US [facility] COMPREHENSIVE ANATOMIC SURVEY (11/12/2024 10:10 AM EDT) Anatomical Region Laterality Modality OB-TECHNICIAN PLANT AND MAINTENANCE Ultrasound 11/12/2024 8:40 AM EDT Narrative 11/12/2024 11:20 AM EDT NAME: SERVANDO LANGLEY : 2000 SEX: F Accession Number: [id number] ORDERING PHYSICIAN: SAMANTHA PERES REFERRING PHYSICIAN: GABY FOX Coding ----- --------- Procedures [id number]: Ultrasound, uterus, real time with image documentation, and maternal evaluation plus detailed anatomic examination, transabdominal approach;single or first gestation 64561: Transvaginal Ultrasound (OB) Indication ----- --------- Screening for Anatomic Survey, Uterine fibroid affecting , Supervision of high risk (bilateral complex ovaries), Screening for cervical length. History ----- --------- OB History 3. Para 0 [id number] Current ----- --------- Cell free DNA Low [...] EFW (oz) 5 oz EFW by: Hadlock (HEO-HF-CJ-FL) Extended Tibia 17.7 mm 16w 0d 61% Nuno CM 1.6 mm <1% Nicolaides Nasal bone 4.1 mm 22% [facility] Head / Face / Neck Cephalic index [...] Thorax 4-chamber view. RVOT view. 3-vessel view. 8-xcevwq-dpbpbgc view. Aortic arch view. Ductal arch view. [...] echogenic textures. Recommendations ----- --------- Please see [facility] documentation from today. The patient is scheduled in four weeks to complete anatomic survey and cervical length ultrasound. Subsequent follow up or other follow up as clinically determined by primary OB provider unless otherwise specified by [facility]. Results forwarded to ordering provider so they can follow up with the patient as necessary. Procedure Note Samantha Peres MD - 11/12/2024 NAME: SERVANDO LANGLEY : 2000 SEX: F Accession Number: [id number] ORDERING PHYSICIAN: SAMANTHA PERES REFERRING PHYSICIAN: GABY FOX Coding ----- --------- Procedures 48100: Ultrasound, uterus, real time with imagedocumentation, and maternal evaluation plus detailed anatomic examination, transabdominalapproach;single or first gestation 10203: Transvaginal Ultrasound (OB) Indication ----- --------- Screening for Anatomic Survey, Uterine fibroid affecting ,Supervision of high risk (bilateral complex ovaries), Screening for cervical length. History ----- --------- OB History 3. Para 0 [id number] Current ----- --------- Cell free DNA Low [...] by LMP 16 w + 0 d PROFIRIO by LMP: 04/29/2025 Previous Ultrasound on: 09/19/2024 [...] EFW (oz) 5 oz EFW by: Hadlock (VGW-MR-HD-FL) Extended Tibia 17.7 mm 16w 0d 61% [...] Thorax 4-chamber view. RVOT view. 3-vessel view. 0-zgpkfr-hpufoslkrlx. Aortic arch view. Ductal arch view. Interventricular [...] heterogenousechogenic textures. Recommendations ----- --------- Please see [facility] documentation from today. The patient is scheduled in four weeks to complete anatomic survey andcervical length ultrasound. Subsequent follow up or other follow up as clinically determined byprimary OB provider unless otherwise specified by [facility]. Results forwarded to ordering provider so they can follow up with thepatient as necessary. us Samantha Peres MD [facility] US ORDERABLES Final Result * Ultrasound - Office (10/04/2024 2:50 PM [...] ORDERABLES Final Re sult Performing Organization Address [facility] de Phone Number MANUALLY TRANSCRIBED RESULTS * CBC without diff (09/24/2024) Only the most recent of2 resultswithin the time period is included. Platelets 281 MANUALLY TRANSCRIBED RESULTS Blood Venous blood / Unknown us Not In System Ref Prov LAB BLOOD ORDERABLES Ella l Result Performing Organization Address [facility] de Phone Number MANUALLY TRANSCRIBED RESULTS * CBC and differential (09/24/2024) Neutrophils Absolute (A) 6.80 1.30 - 8.30 10*3/uL MANUALLY TRANSCRIBED RESULTS Auto WBC 9.2 3.3 - 10.0 10*3/mL MANUALLY TRANSCRIBED RESULTS Blood us Samantha Peres MD LAB BLOOD ORDERABLES Final Resul t Performing Organization Address City/[facility] de Phone Number MANUALLY TRANSCRIBED RESULTS * Hemoglobin A1c (09/24/2024) Hemoglobin A1C 5.1 4.0 - 6.0 % MANUALLY TRANSCRIBED RESULTS Blood Venous blood / Unknown us Samantha Peres MD LAB BLOOD ORDERABLES Final Resul t Performing Organization Address City/[facility] de Phone Number MANUALLY TRANSCRIBED RESULTS from Last [address] [place] [address] [facility]
--- OUTSIDE RECORDS SUMMARY | 2024-11-12 18:29 | XMS_ITS | Clinical Summary ---
Author Organization [facility] Address [facility] [place] [address] Care Team Providers Care Web Applications Programmer Name Role Phone Alberto Mayes MD Primary Care Provider [phone] Allergies Active Allergy Reactions Criticality Noted Date [...] patient's age to complete this topic Insurance [employer] BLUE/PREF/HMO/PPO ANTHEM BLUE/PREF/HMO/PPO Care Teams Web Applications Programmer Relationship Specialty Start Date End Date Alberto Mayes MD [address] [place] [address] PCP - General Family Medicine 08/03/18
--- OUTSIDE RECORDS SUMMARY | 2024-11-12 18:29 | XMS_ITS | Encounter Summary ---
Author Organization [facility] Address [address] [place] [address] Care Team Providers Care Investment Officer Name Role Phone Paloma Vazquez DO Unavailable Alberto Mayes MD Primary Care Provider Encounter Details Date Type Department Care Team (Late st Contact Info) Description 11/12/2024 External Result Encounter [facility] [address] [place] [address] Gaby Woods [facility] [address] [place], [place] [id number] Social History Tobacco Use Types Packs/Day Years [...] Routine [facility] [address] [place] [address] Jayla Leiva PA [address] [place] [address] [place] [address] documented as of this encounter Procedures Procedure Name Priority Date/Time Associated Diagnosis Comments US OB 14+ WEEKS ANATOMY SCAN 11/12/2024 11:20 AM EDT documented in this encounter Results * US OB 14+ weeks anatomy scan (11/12/2024 11:20 AM EDT) Anatomical Region Laterality Modality Body Ultrasound 11/12/2024 11:2 0 AM EDT Narrative 11/12/2024 11:20 AM EDT THIS EXAM WAS PERFORMED AT [facility] NAME: SERVANDO LANGLEY : 2000 SEX: F Accession Number: [id number] ORDERING PHYSICIAN: GUADALUPE SCHMIDT REFERRING PHYSICIAN: GABY WOODS Coding ----- --------- Procedures 99059: Ultrasound, uterus, real time with image documentation, and maternal evaluation plus detailed anatomic examination, transabdominal approach;single or first gestation 89998: Transvaginal Ultrasound (OB) Indication ----- --------- Screening for Anatomic Survey, Uterine fibroid affecting , Supervision of high risk (bilateral complex ovaries), Screening for cervical length. History ----- --------- OB History 3. Para 0 [id number] Current ----- --------- Cell free DNA Low [...] EFW (oz) 5 oz EFW by: Hadlock (FQC-XM-MI-FL) Extended Tibia 17.7 mm 16w 0d 61% Nuno CM 1.6 mm <1% Nicolaides Nasal bone 4.1 mm 22% [facility] Head / Face / Neck Cephalic index [...] Thorax 4-chamber view. RVOT view. 3-vessel view. 7-hglwja-ewvlwrg view. Aortic arch view. Ductal arch view. [...] echogenic textures. Recommendations ----- --------- Please see M documentation from today. The patient is scheduled in four weeks to complete anatomic survey and cervical length ultrasound. Subsequent follow up or other follow up as clinically determined by primary OB provider unless otherwise specified by [facility]. Results forwarded to ordering provider so they can follow up with the patient as necessary. The copy-to physician of this order is GABY Miguel The ordering physician of this order is GUADALUPE Pacheco Procedure Note Radiology, Radiologist, MD - 11/12/2024 THIS EXAM WAS PERFORMED AT [facility] NAME: SERVANDO LANGLEY : 2000 SEX: F Accession Number: [id number] ORDERING PHYSICIAN: GUADALUPE SCHMIDT REFERRING PHYSICIAN: GABY WOODS Coding ----- --------- Procedures 26075: Ultrasound, uterus, real time with imagedocumentation, and maternal evaluation plus detailed anatomic examination, transabdominalapproach;single or first gestation 98679: Transvaginal Ultrasound (OB) Indication ----- --------- Screening for Anatomic Survey, Uterine fibroid affecting ,Supervision of high risk (bilateral complex ovaries), Screening for cervical length. History ----- --------- OB History 3. Para 0 [id number] Current ----- --------- Cell free DNA Low [...] EFW (oz) 5 oz EFW by: Hadlock (TEX-SO-ZF-FL) Extended Tibia 17.7 mm 16w 0d 61% Nuno CM 1.6 mm <1% Nicolaides Nasal bone 4.1 mm 22% [facility] Head / Face / Neck Cephalic index [...] Thorax 4-chamber view. RVOT view. 3-vessel view. 7-wcoxql-lohwdsnzxyt. Aortic arch view. Ductal arch view. Interventricular [...] heterogenousechogenic textures. Recommendations ----- --------- Please see [facility] documentation from today. The patient is scheduled in four weeks to complete anatomic survey andcervical length ultrasound. Subsequent follow up or other follow up as clinically determined byprimary OB provider unless otherwise specified by [facility]. Results forwarded to ordering provider so they can follow up with thepatient as necessary. The copy-to physician of this order is GABY Miguel The ordering physician of this order is GUADALUPE Pacheco us Gaby Woods DO IMG OB US PROCEDURES Final Resul t documented in this encounter Visit Diagnoses Not on filedocumented in this encounter Care Teams Investment Officer Relationship Specialty Start Date End Date Alberto Mayes MD [address] [place] [address] PCP - General 05/02/23 Paloma Vazquez DO [address] [place] [address] Referring Physician Obstetrics and Gynecology 04/25/23 documented as of this encounter
--- NOTE | 2024-11-12 18:37 | ED.GENADUL1 ---
HPI HPI - General Adult General Chief complaint: Extremity Problem, Nontraumatic Stated complaint: Possible Blood Clot in Leg 16 weeks Time Seen by Provider: 11/12/24 18:24 Source: patient Mode of arrival: walk-in Limitations: no limitations History of Present Illness HPI narrative: The patient is a 24-year-old female who presents to the emergency department today for evaluation of concerns for swelling and pain to her right lower leg. She endorses she is approximately 16 weeks and since yesterday she has had some swelling and pain to her right lower leg. She denies any injury/trauma. She mentions there was some bruising to the posterior aspect of the distal right lower leg. No history of VTE. She denies any chest pain, shortness of breath, dizziness or syncope. 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 Related Data Home Medications ?Medication ?Instructions ?Recorded ?Confirmed omeprazole 40 mg capsule,delayed 40 mg PO DAILY 11/12/24 11/12/24 release ondansetron HCl 4 mg tablet 4 mg PO Q6H PRN nausea and vomiting 11/12/24 11/12/24 vit no.95-ferrous 1 tab PO DAILY 11/12/24 11/12/24 fumarate 28 mg-folic acid 800 mcg tablet () Allergies Allergy/AdvReac Type Severity Reaction Status Date / Time ciprofloxacin (From Cipro) AdvReac Intermediate N/V Verified 11/12/24 18:24 prednisone AdvReac Intermediate n/v Verified 11/12/24 18:24 Opioid HPI Opioid Management Most Recent Opioid Data: Ur Phencyclidine Scrn, (NEGATIVE) Negative 09/24/24, 10:18 Review of Systems ROS Status of ROS 10 or more systems reviewed and unremarkable except as noted in history and below PFSH PFSH Social History Little interest or pleasure in doing things: not at all Feeling down, depressed, or hopeless: not at all Exam Narrative Exam Narrative: Constituational: Awake/ alert, no apparent distress, well hydrated HENMT: normocephalic, external ears normal, moist oral mucous membranes and oropharynx normal Eyes: EOMI and conjunctivae normal Neck: ROM intact Chest: inspection of chest normal Respiratory: Normal respiratory effort, clear to auscultation bilaterally Cardio: regular rate and regular rhythm GI: soft to palpation and non-tender Back: nontender MSK: + Edema R lower leg with small area of ecchymosis to posterior/lateral and distal R lower leg, +NVI Skin: no rashes or petechiae Neuro: no focal deficits Psych: mental status grossly normal Constitutional Vital Signs, click to edit/add: Last Vital Signs Temp 98.2 F 11/12/24 18:24 Pulse 97 H 11/12/24 19:35 Resp 16 11/12/24 19:35 BP 117/69 11/12/24 19:35 Pulse Ox 98 11/12/24 19:35 O2 Del Method Room Air 11/12/24 19:35 Course Vital Signs Vital signs: Vital Signs Temperature 98.2 F 11/12/24 18:24 Pulse Rate 98 H 11/12/24 18:24 Respiratory Rate 16 11/12/24 18:24 Blood Pressure 118/76 11/12/24 18:24 Pulse Oximetry 98 11/12/24 18:24 Oxygen Delivery Method Room Air 11/12/24 18:24 Temperature 98.2 F 11/12/24 18:24 Pulse Rate 97 H 11/12/24 19:35 Respiratory Rate 16 11/12/24 19:35 Blood Pressure 117/69 11/12/24 19:35 Pulse Oximetry 98 11/12/24 19:35 Oxygen Delivery Method Room Air 11/12/24 19:35 Medical Decision Making MDM Narrative Medical decision making narrative: Well-appearing 24-year-old female who presented to the emergency department today for evaluation concerns for discomfort and mild edema to her right lower leg. Initial examination vital signs overall stable. No concerning neurovascular or motor findings on exam. Patient noted to have a focal area of ecchymosis to the posterior lateral distal aspect of the right lower leg otherwise no evidence of injury or trauma. Venous Doppler is negative for DVT. Discussed this with the patient including recommendations for supportive care for likely myalgia of the right leg. Advised on follow-up with patient's HEATING ENGINEER and/or PCP for reevaluation. Discussed signs and symptoms of any worsening condition and when to consider reevaluation by the emergency department. Patient verbalized an understanding of this and is agreeable with the plan to be discharged home. Medical Records Medical records reviewed: Yes I reviewed the patient's medical records Imaging Data Venous Doppler Right Leg: Attestation: I have reviewed the pertinent imaging results. (Negative for DVT per bakery technician) Radiologist's impression: Negative for right lower extremity DVT Discharge Plan Discharge Chief Complaint: Extremity Problem, Nontraumatic Clinical Impression: Myalgia Patient Disposition: Home, Self-Care Prescriptions / Home Meds: No Action ondansetron HCl 4 mg tablet 4 mg PO Q6H PRN (Reason: nausea and vomiting) omeprazole 40 mg capsule,delayed release(DR/EC) 40 mg PO DAILY PNV cmb#95-ferrous fumarate-FA [] 28 mg iron- 800 mcg tablet 1 tab PO DAILY Print Language: Setswana Instructions: Musculoskeletal Pain (ED) Additional Instructions: As needed for any pain. May apply warm compresses and gentle massage. If your legs are swollen please keep elevated. Drink plenty of fluids. May wear compression stockings additionally as needed. Follow-up with your primary care provider and/her HEATING ENGINEER for reevaluation as discussed. Referrals: Alberto Mayes MD [Primary Care Provider] - 1 week
[2024-11-12 19:35] VITALS: BP 117/69; PULSE 97; O2SAT 98
== END 2024-11-12 19:40 | disposition home or self-care (01) ==
PROVIDERS: Emergency Provider Student in an Organized Health Care Education/Training Program; PCP Family Medicine
DX: O26.892 Other specified pregnancy related conditions, second trimester (principal); M79.10 Myalgia, unspecified site; Z3A.16 16 weeks gestation of pregnancy
CPT/HCPCS: 93971; 99284

== ENCOUNTER 2025-01-07 14:55 | Emergency (ER) | payer BC, SELFPAY ==
--- OUTSIDE RECORDS SUMMARY | 2024-12-31 14:10 | XMS_ITS | Encounter Summary ---
Author Organization [facility] Address [address] [place] [address] Care Team Providers Care Roll Press Operator Name Role Phone Alberto Mayes MD Primary Care Provider Reason for Visit * Reason Comments Routine Visit Encounter Details Date Type Department Care Team (Late st Contact Info) Description 12/31/2024 2:10 PM EDT Routine [facility] [place] [facility] [address] [facility] [place] [phone] Jack Woods DO [address] [facility] [address] [place], [place] [id number] Second trimester ([facility]); 23 weeks gestation of ([facility]); Diabetes mellitus screening Social History Tobacco Use Types Packs/Day Years [...] Sign Reading Time Taken Comments Blood Pressure 112/62 12/31/2024 2:30 PM EDT Pulse - - Temperature - - Respiratory Rate - - Oxygen Saturation - - Inhaled Oxygen Concentration - - Weight 83.8 kg (184 lb 12.8 oz) 12/31/2024 2:30 PM EDT Height - - Body Mass Index 29.83 2024 1:52 PM EDT documented in this encounter Progress Notes * Lisa Prasad, OPERATOR [employer] - 12/31/2024 2:10 PM EDT Reason for Appointment: Patient ID: Daphney Montesinos is a 24 y.o. female who presents for Routine Visit Patient presents today for Return OB appointment. MEDICATIONS Current Outpatient Medications Medication Instructions aspirin 81 MG oral suspension docusate sodium (COLACE) 100 mg, Daily Doxylamine Succinate, Sleep, (UNISOM PO) Take by mouth omeprazole (PRILOSEC) 40 mg, Oral, Daily before breakfast, Do not crush or chew. ondansetron (ZOFRAN) 4 mg, Oral, Every 6 hours PRN, Take 1 tablet by mouth every 6 hours as needed for nausea. Vit w/Xu-Pbwwexdpp-BS (PNV PO) pyridoxine (VITAMIN B-6) 25 mg, Daily ALLERGIES Allergies Allergen Reactions Cephalexin Nausea And Vomiting Other Reaction(s): severe vomiting Other Reaction(s): Vomiting Ciprofloxacin Other Reaction(s): GI Intolerance Pt states projectile vomiting. Other Reaction(s): Vomiting PROJECTILE VOMITING Prednisone Nausea And Vomiting Other Reaction(s): severe vomiting Other Reaction(s): Vomiting PROBLEMS Active Ambulatory Problems Diagnosis Date Noted No Active Ambulatory Problems Resolved Ambulatory Problems Diagnosis Date Noted No Resolved Ambulatory Problems Past Medical History: Diagnosis Date Acne vulgaris Endometriosis History of medical problems Miscarriage ([facility]) Ovarian cyst HISTORY PAST MEDICAL HISTORY SOCIAL HISTORY Past Medical History: Diagnosis Date Acne vulgaris Endometriosis History of medical problems recurrent strep Miscarriage ([facility]-HCC) Ovarian cyst Social History Tobacco Use Smoking [...] nursing note reviewed. Exam conducted with a gang supervisor present. Vitals: Estimated body mass index is 29.83 kg/m?? as calculated from the following: Height as of 02/06/24: 5' 6 . Weight as of this encounter: 184 lb 12.8 oz. BP: 112/62 Patient's last menstrual period was 07/23/2024. ASSESSMENT & PLAN ICD-10-CM 1. Second trimester ([facility]) Z34.92 POCT urinalysis dipstick manually resulted 2. 23 weeks gestation of ([facility]) Z3A.23 POCT urinalysis dipstick manually resulted 3. Diabetes mellitus screening Z13.1 CBC Glucose tolerance, 1 hour CBC Glucose tolerance, 1 hour Return OB: Patient presents today for a routine obstetrics appointment. Patient is currently 23w0d . Patient states she is doing well but has complaints of being tired due to current . Patient has verbalizes frequent movement. labor precautions was discussed/given. Pt given glucola and cbc orders to have obtained. Orders Placed This Encounter Procedures CBC Glucose tolerance, 1 hour POCT urinalysis dipstick manually resulted Follow Up: Patient is to return to office in 2 week for routine OB appointment. Documented by Lisa Prasad LPN on behalf of: Jack Woods DO documented in this encounter Plan of Treatment Upcoming Encounters Date Type Department Care Team (Late st Contact Info) Description 01/28/2025 8:40 AM EDT Routine [facility] [place] [facility] [address] [facility] [place] [phone] Jayla Leiva PA [address] [facility] [place] [address] Scheduled Orders Name Type Priority Associated Diagnoses Orde r Schedule CBC Lab Routine Diabetes mellitus screening Expected: 12/31/2024 (Approximate), Expires: 12/31/2025 Glucose tolerance, 1 hour Lab Routine Diabetes mellitus screening Expected: 12/31/2024 (Approximate), Expires: 12/31/2025 documented as of this encounter Procedures Procedure Name Priority Date/Time Associated Diagnosis Comments POCT URINALYSIS DIPSTICK Routine 12/31/2024 2:41 PM EDT Second trimester ([facility]) 23 weeks gestation of ([facility]) documented in this encounter Results * (ABNORMAL) POCT urinalysis dipstick manually resulted (12/31/2024 2:41 PM EDT) Color, UA Yellow Clarity, UA Clear Glucose, UA Negative Negative - 1999(110) ++++ mg/dL Bilirubin, UA Negative Negative - 4(70) +++ mg/dL Ketones, UA Negative Negative - 160(16) ++++ mg/dL Spec Grav, UA 1.010 1 - 1.03 Blood, UA Negative Negative - 50 Clarke/mcL pH, UA 6.0 5 - 9 Protein, UA Negative Negative - 2000(20) ++++ mg/dL Urobilinogen, UA 1.0 0.2 - 12 mg/dL Leukocytes, UA Negative Negative - 500+++ Kamaljit/mcL Nitrite, UA Negative Negative - Positive Urine 12/31/2024 2:41 PM EDT Jack Woods DO POINT OF CARE TEST ENTER/EDIT OR DERABLES Final Result documented in this encounter Visit Diagnoses Diagnosis Second trimester ([facility]) state, incidental 23 weeks gestation of ([facility]) Diabetes mellitus screening Screening for diabetes mellitus documented in this encounter Care Teams Roll Press Operator Relationship Specialty Start Date End Date Alberto Mayes MD PCP - General 05/02/23 documented as of this encounter
--- OUTSIDE RECORDS SUMMARY | 2025-01-07 13:50 | XMS_ITS | Encounter Summary ---
Author Organization [facility] Address [address] [place] [address] Care Team Providers Care Rn Radiation Oncology Name Role Phone Alberto Mayes MD Primary Care Provider Reason for Referral * (Routine) - Incomplete Specialty Diagnoses / Procedures Referred By Ky martini Referred To Contact Radiology Diagnoses Palpitations Tachycardia Procedures Echocardiogram 2D complete Jayla Leiva PA [address] [place] [address] Phone: tel: fax: Referral ID Status Reason Start Date Expiration Date Visits Requested Visits Authorized [id number] Incomplete Perform Procedure 01/07/2025 07/06/2025 1 1 Reason for Visit * Reason Comments Routine Visit Encounter Details Date Type Department Care Team (Late st Contact Info) Description 01/07/2025 1:50 PM EDT Routine [facility] [address] [place] [phone] Jayla Leiva PA [address] [place] [address] Dr [place], [facility] Second trimester ([facility]); 23 weeks gestation of ([facility]); Palpitations; Tachycardia Social History Tobacco Use [...] AM EDT Routine [facility] [address] [place] [phone] Jayla Leiva PA [address] [place] [address] Scheduled Orders Name Type Priority Associated Diagnoses Order Schedule ECG 12 lead unit performed ECG Routine Palpitations Expected: 01/07/2025 (Approximate), Expires: 01/07/2026 Echocardiogram 2D complete Echocardiography Routine Palpitations Tachycardia Expected: 01/07/2025 (Approximate), Expires: 01/07/2027 documented as of this encounter Procedures Procedure Name Priority Date/Time Associated Diagnosis Comments POCT URINALYSIS DIPSTICK Routine 01/07/2025 2:18 PM EDT Second trimester ([facility]) documented in this encounter Results * (ABNORMAL) [...] this encounter Visit Diagnoses Diagnosis Second trimester ([facility]) state, incidental 23 weeks gestation of ([facility]) Palpitations Tachycardia Unspecified tachycardia documented in this encounter Care Teams Rn Radiation Oncology Relationship Specialty Start Date End Date Alberto Mayes MD PCP - General 05/02/23 documented as of this encounter
--- NOTE | 2025-01-07 15:00 | ECG_ITS ---
[facility] Test Date: 2025-01-07 Pat Name: KORIN AL Department: Room: - Gender: Female Hand Booked Folder And Stitcher: : 2000 Requested By: [id number] Order Number: [id number] Reading MD: YOSEF MCGARRY Measurements Intervals [place] Rate: 108 P: 34 IL: 138 QRS: 78 QRSD: 74 T: 8 QT: 330 QTc: 393 Interpretive Statements 1120 Sinus tachycardia 4068 Nonspecific Twave abnormality 9140 abnormal rhythm ECG No previous ECG available for comparison Electronically Signed On 01-08-2025 15:57:02 EDT by YOSEF MCGARRY
--- OUTSIDE RECORDS SUMMARY | 2025-01-07 15:01 | XMS_ITS | Encounter Summary ---
Author Organization [facility] Address [address] [place] [address] Care Team Providers Care Back Feeder Plywood Layup Line Name Role Phone Paloma Vazquez DO Unavailable [phone] Alberto Mayes MD Primary Care Provider Encounter Details Date Type Department Care Team (Late st Contact Info) Description 11/14/2024 Orders Only [facility] [address] [place] [place] [address] Manjula Elias MA Social History Tobacco Use Types Packs/Day Years [...] 01/28/2025 8:40 AM EDT Routine [facility] [address] [place] [address] Jayla Leiva PA [address] [place] [address] documented as of this encounter Procedures Procedure Name Priority Date/Time Associated Diagnosis Comments PAP SMEAR Routine 11/05/2024 12:00 AM EDT documented in this encounter Results * Pap Smear (11/05/2024 12:00 AM EDT) Swab Cervical swab / Unknown us Jack Peggy DO LAB CYTOLOGY ORDERABLES Final Re sult EXTERNAL LAB documented in this encounter Visit Diagnoses Not on filedocumented in this encounter Care Teams Back Feeder Plywood Layup Line Relationship Specialty Start Date End Date Alberto Mayes MD [address] [place] [address] PCP - General 05/02/23 Paloma Vazquez DO [address] [place] [address] Referring Physician Obstetrics and Gynecology 04/25/23 12/02/24 documented as of this encounter
--- OUTSIDE RECORDS SUMMARY | 2025-01-07 15:01 | XMS_ITS | Encounter Summary ---
Author Organization [facility] Address [address] [place] [address] Care Team Providers Care Reinforced Concrete Inspector Name Role Phone Alberto Mayes MD Primary Care Provider Encounter Details Date Type Department Care Team (Latest Contact Info) Description 12/31/2024 Travel Social History Tobacco Use Types Packs/Day [...] AM EDT Routine [facility] [address] [place] [phone] Jayla Leiva PA [address] [place] [address] documented as of this encounter Visit Diagnoses Not on filedocumented in this encounter Care Teams Reinforced Concrete Inspector Relationship Specialty Start Date End Date Alberto Mayes MD PCP - General 05/02/23 documented as of this encounter
--- OUTSIDE RECORDS SUMMARY | 2025-01-07 15:01 | XMS_ITS | Encounter Summary ---
Author Organization [facility] Address [address] [place] [address] Care Team Providers Care Data Analysis Intern Name Role Phone Paloma Vazquez DO Unavailable Alberto Mayes MD Primary Care Provider Encounter Details Date Type Department Care Team (Late st Contact Info) Description 09/24/2024 Abstract [facility] [place] [phone] Jack Woods DO [address] [facility] [address] [place], [place] [phone] Social History Tobacco Use Types Packs/Day Years [...] Info) Description 01/28/2025 8:40 AM EDT Routine [facility] [address] [place] [address] Jayla Leiva PA [address] [place] [address] [place] [address] documented as of this encounter Visit Diagnoses Not on filedocumented in this encounter Care Teams Data Analysis Intern Relationship Specialty Start Date End Date Alberto Mayes MD [address] [facility] [address] [place] [address] PCP - General 05/02/23 Paloma Vazquez DO [address] [facility] [address] [place] [address] Referring Physician Obstetrics and Gynecology 04/25/23 12/02/24 documented as of this encounter
--- OUTSIDE RECORDS SUMMARY | 2025-01-07 15:01 | XMS_ITS | Encounter Summary ---
Author Organization [facility] Address [address] [place] [address] Care Team Providers Care Systems Architect Name Role Phone Paloma Vazquez DO Unavailable [phone] Alberto Mayes MD Primary Care Provider Encounter Details Date Type Department Care Team (Late st Contact Info) Description 11/12/2024 External Result Encounter [facility] [place] [phone] Gaby Woods DO [address] [place], [place] [phone] Social History Tobacco Use Types Packs/Day Years [...] AM EDT Routine [facility] [address] [place] [address] Jayla Leiva PA [address] [place] [address] [place] [address] documented as of this encounter Procedures Procedure Name Priority Date/Time Associated Diagnosis Comments US OB 14+ WEEKS ANATOMY SCAN 11/12/2024 11:20 AM EDT documented in this encounter Results * US OB 14+ weeks anatomy scan (11/12/2024 11:20 AM EDT) Anatomical Region Laterality Modality Body Ultrasound 11/12/2024 11:2 0 AM EDT Narrative 11/12/2024 11:20 AM EDT THIS EXAM WAS PERFORMED AT [facility] NAME: SERVANDO LANGLEY : 2000 SEX: F Accession Number: [id number] ORDERING PHYSICIAN: GUADALUPE SCHMIDT REFERRING PHYSICIAN: GABY WOODS Coding ----- --------- Procedures 82923: Ultrasound, uterus, real time with image documentation, and maternal evaluation plus detailed anatomic examination, transabdominal approach;single or first gestation 11743: Transvaginal Ultrasound (OB) Indication ----- --------- Screening for Anatomic Survey, Uterine fibroid affecting , Supervision of high risk (bilateral complex ovaries), Screening for cervical length. History ----- --------- OB History 3. Para 0 [id number] Current ----- --------- Cell free DNA Low [...] EFW (oz) 5 oz EFW by: Hadlock (CAR-SY-SZ-FL) Extended Tibia 17.7 mm 16w 0d 61% [...] Thorax 4-chamber view. RVOT view. 3-vessel view. 8-gvdxdm-ixfzjcy view. Aortic arch view. Ductal arch view. [...] - 11/12/2024 THIS EXAM WAS PERFORMED AT [facility] NAME: SERVANDO LANGLEY : 2000 SEX: F Accession Number: [id number] ORDERING PHYSICIAN: GUADALUPE SCHMIDT REFERRING PHYSICIAN: GABY WOODS Coding ----- --------- Procedures 15646: Ultrasound, uterus, real time with imagedocumentation, and maternal evaluation plus detailed anatomic examination, transabdominalapproach;single or first gestation 17646: Transvaginal Ultrasound (OB) Indication ----- --------- Screening for Anatomic Survey, Uterine fibroid affecting ,Supervision of high risk (bilateral complex ovaries), Screening for cervical length. History ----- --------- OB History 3. Para 0 [id number] Current ----- --------- Cell free DNA Low [...] EFW (oz) 5 oz EFW by: Hadlock (MYO-IM-WM-FL) Extended Tibia 17.7 mm 16w 0d 61% Nuno CM 1.6 mm <1% Nicolaides Nasal bone 4.1 mm 22% [facility] Head / Face / Neck Cephalic [...] Thorax 4-chamber view. RVOT view. 3-vessel view. 6-ovxxbk-orziflsiikn. Aortic arch view. Ductal arch view. Interventricular [...] heterogenousechogenic textures. Recommendations ----- --------- Please see [facility] documentation from today. The patient is scheduled in four weeks to complete anatomic survey andcervical length ultrasound. Subsequent follow up or other follow up as clinically determined byprimary OB provider unless otherwise specified by [facility]. Results forwarded to ordering provider so they can follow up with thepatient as necessary. The copy-to physician of this order is GABY Miguel The ordering physician of this order is GUADALUPE Pacheco us Gaby Woods DO IMG OB US PROCEDURES Final Resul t documented in this encounter Visit Diagnoses Not on filedocumented in this encounter Care Teams Systems Architect Relationship Specialty Start Date End Date Alberto Mayes MD [address] [place] [address] PCP - General 05/02/23 Paloma Vazquez DO [address] [place] [address] Referring Physician Obstetrics and Gynecology 04/25/23 12/02/24 documented as of this encounter
--- OUTSIDE RECORDS SUMMARY | 2025-01-07 15:01 | XMS_ITS | Clinical Summary ---
Author Organization [facility] Healthcare Address [address] [place] [address] Care Team Providers Care Senior Project Manager Engineering Name Role Phone Alberto Mayes MD Primary Care Provider [phone] Allergies Active Allergy Reactions Criticality Noted Date Comments Cephalexin Nausea And Vomiting Low 02/01/2019 Other Reaction(s): severe vomiting Other Reaction(s): Vomiting Ciprofloxacin Low 08/03/2018 Other Reaction(s): GI Intolerance Pt states projectile vomiting. Other Reaction(s): Vomiting PROJECTILE VOMITING Prednisone Nausea And Vomiting Low 02/01/2019 Other Reaction(s): severe vomiting Other Reaction(s): Vomiting Medications aspirin 81 MG oral suspension 4 Active Vit w/Bv-Cvsgskpku-DQ (PNV PO) Active Doxylamine Succinate, Sleep, (UNISOM PO) Take by mouth Active pyridoxine (Vitamin B-6) 25 MG tablet Take 25 mg by mouth Daily Active docusate sodium (Colace) 100 MG capsule Take 100 mg by mouth Daily Active omeprazole (PriLOSEC) [address] capsuleIndications: Gastroesophageal Reflux Disease,Heartburn Take 1 capsule (40 mg) by mouth in the morning. Take before meals. Do not crush or chew. 30 capsule 3 5 Active ondansetron (Zofran) 4 MG tabletIndications:G astroesophageal reflux in (HHS-HCC),Nausea and vomiting during (HHS-HCC) Take 1 tablet (4 mg) by mouth every 6 (six) hours if needed for nausea or vomiting for up to 30 doses Take 1 tablet by mouth every 6 hours as needed for nausea. 30 tablet 3 5 Active iron polysaccharides (ProFe) 391.3 (180 Fe) MG capsuleIndications: Second trimester ([facility]) Take 1 capsule (391.3 mg) by mouth Daily 30 capsule 6 5 08/06/19 Active Encounters Date Type Department Care Team Description 01/07/2025 1:50 PM EDT Routine [facility] [place] [address] Jayla Leiva PA Second trimester ([facility]); 23 weeks gestation of ([facility]); Palpitations; Tachycardia 01/07/2025 Bamboo flowsheet [facility] [place] [address] Jayla Leiva PA 01/03/2025 Telephone [facility] [address] [place] [address] [place] [address] Gaby Woods DO 12/31/2024 2:10 [place] [address] Gaby Woods, Second trimester ([facility]); 23 weeks gestation of ([facility]); Diabetes mellitus screening 12/31/2024 Bamboo flowsheet [facility] [address] [place] [address] [place] [address] Gaby Woods DO 12/31/2024 Travel 12/03/2024 1:30 [place] [address] Jayla Leiva PA Second trimester ([facility]); 19 weeks gestation of ([facility]) 12/03/2024 Bamboo flowsheet [facility] [place] [address] Jayla Leiva PA 11/20/2024 Telephone [facility] [place] [address] Manjula Elias DC 11/14/2024 Orders Only [facility] [place] [address] Manjula Elias, DC 11/12/2024 Abstract [facility] [place] [address] Gaby Woods, DO 11/12/2024 Abstract [facility] [address] [place] [address] [place] [address] Gaby Woods, DO 11/12/2024 External Result Encounter [facility] [place] [address] Gaby Woods, DO 11/05/2024 1:40 PM EDT Routine [place] [place] [address] Gaby Woods, DO Well woman exam with routine gynecological exam; Second trimester ([facility] 15 weeks gestation of ([facility]); Vaginal discharge; STD exposure 11/05/2024 Abstract [facility] [address] [place] [address] [place] [address] Gaby Woods, DO 11/05/2024 External Result Encounter [facility] External Department Unsolicited Gaby Woods, DO 11/05/2024 Clinisync Result Encounter [facility] External Department Unsolicited Gaby Woods, DO 11/05/2024 External Result Encounter [facility] External Department Unsolicited Gaby Woods, DO 11/05/2024 Bamboo flowsheet [facility] [place] [address] Gaby Woods DO 11/04/2024 Travel 10/08/2024 2:30 PM EDT Routine [facility] [address] [place] [address] [place] [address] Gaby Woods DO 11 weeks gestation of ([facility]); First trimester ([facility]); Other constipation; Gastroesophageal reflux in ([facility]) 10/08/2024 Bamboo flowsheet [facility] [address] [place] [address] [place] [address] Gaby Woods DO from Last 3 Months Family History [...] Weight 83.8 kg (184 lb 12.8 oz) 025 2:30 PM EDT Height 167.6 cm (5' 6 ) 2024 1:52 PM EDT Body Mass Index 29.83 2024 1:52 PM EDT Plan of Treatment Upcoming Encounters Date Type Department Care Team (Late st Contact Info) Description 01/28/2025 8:40 AM EDT Routine [facility] [address] [facility] [place] [address] Jayla Leiva PA [address] [facility] [place] [address] Procedures Procedure Name Priority Date/Time Associated Diagnosis Comments POCT URINALYSIS DIPSTICK Routine 01/07/2025 2:18 PM EDT Second trimester ([facility]HS-HCC) POCT URINALYSIS DIPSTICK Routine 12/31/2024 2:41 PM EDT Second trimester ([facility]) 23 weeks gestation of ([facility]) POCT URINALYSIS DIPSTICK Routine 12/03/2024 1:30 PM EDT Second trimester ([facility]HS-HCC) US OB 14+ WEEKS ANATOMY SCAN 11/12/2024 11:20 AM EDT RECURRENT VAGINITIS (HTRX) Routine 11/05/2024 3:29 PM EDT POCT URINALYSIS DIPSTICK Routine 11/05/2024 2:15 PM EDT Second trimester ([facility]-HCC) 15 weeks gestation of ([facility]HCC) IGP,APTIMA HPV,AGE GDLN Routine 11/05/2024 1:57 PM EDT PAP SMEAR Routine 11/05/2024 12:00 AM EDT PATHOLOGY REQUEST FOR LAB GIA Routine 11/05/2024 12:00 AM EDT POCT URINALYSIS DIPSTICK Routine 10/08/2024 2:43 PM EDT 11 weeks gestation of ([facility]-HCC) First trimester ([facility]-HCC) from Last 3 Months Results * (ABNORMAL) POCT urinalysis dipstick manually resulted (01/07/2025 2:18 PM EDT) Only the most recent of5 resultswithin the time period is included. Color, [...] - Positive Urine 01/07/2025 2:18 PM EDT us Jayla DA SILVA POINT OF CARE TEST ENTER/EDIT OR DERABLES Final Result * US OB 14+ weeks anatomy scan (11/12/2024 11:20 AM EDT) Anatomical Region Laterality Modality Body Ultrasound 11/12/2024 11:2 0 AM EDT Narrative 11/12/2024 11:20 AM EDT THIS EXAM WAS PERFORMED AT [facility] NAME: SERVANDO LANGLEY : 2000 SEX: F Accession Number: [id number] ORDERING PHYSICIAN: GUADALUPE SCHMIDT REFERRING PHYSICIAN: GABY WOODS Coding ----- --------- Procedures [id number]: Ultrasound, uterus, real time with image documentation, and maternal evaluation plus detailed anatomic examination, transabdominal approach;single or first gestation 10909: Transvaginal Ultrasound (OB) Indication ----- --------- Screening for Anatomic Survey, Uterine fibroid affecting , Supervision of high risk (bilateral complex ovaries), Screening for cervical length. History ----- --------- OB History 3. Para 0 [id number] Current ----- --------- Cell free DNA Low [...] EFW (oz) 5 oz EFW by: Hadlock (AHA-PZ-BU-FL) Extended Tibia 17.7 mm 16w 0d 61% [...] Thorax 4-chamber view. RVOT view. 3-vessel view. 7-vuxawo-qydwgjd view. Aortic arch view. Ductal arch view. [...] echogenic textures. Recommendations ----- --------- Please see [facility] documentation from today. The patient is scheduled in four weeks to complete anatomic survey and cervical length ultrasound. Subsequent follow up or other follow up as clinically determined by primary OB provider unless otherwise specified by [facility]. Results forwarded to ordering provider so they can follow up with the patient as necessary. The copy-to physician of this order is GABY Miguel The ordering physician of this order is GUADALUPE Pacheco Procedure Note Radiology, Radiologist, - 11/12/2024 THIS EXAM WAS PERFORMED AT [facility] NAME: SERVANDO LANGLEY : 2000 SEX: F Accession Number: [id number] ORDERING PHYSICIAN: GUADALUPE SCHMIDT REFERRING PHYSICIAN: GABY WOODS Coding ----- --------- Procedures [id number]: Ultrasound, uterus, real time with imagedocumentation, and maternal evaluation plus detailed anatomic examination, transabdominalapproach;single or first gestation 50844: Transvaginal Ultrasound (OB) Indication ----- --------- Screening for Anatomic Survey, Uterine fibroid affecting ,Supervision of high risk (bilateral complex ovaries), Screening for cervical length. History ----- --------- OB History 3. Para 0 [id number] Current ----- --------- Cell free DNA Low [...] Cerebellum tr 16.0 mm 16w 3d 50% [place] Nuchal fold 2.7 mm AC 114.0 mm 17w 1d 87% Hadlock Femur 18.7 mm 15w 4d 27% Hadlock Humerus 20.5 mm 16w 0d 58% Nuno HC / AC 1.09 2% Hadlock EFW 154 g 67% Hadlock EFW (lb) 0 lb EFW (oz) 5 oz EFW by: Hadlock (EJW-ER-VB-FL) Extended Tibia 17.7 mm 16w 0d 61% [...] Thorax 4-chamber view. RVOT view. 3-vessel view. 0-bwvbty-nlyosbggdhj. Aortic arch view. Ductal arch view. Interventricular [...] heterogenousechogenic textures. Recommendations ----- --------- Please see [facility] documentation from today. The patient is scheduled in four weeks to complete anatomic survey andcervical length ultrasound. Subsequent follow up or other follow up as clinically determined byprimary OB provider unless otherwise specified by [facility]. Results forwarded to ordering provider so they can follow up with thepatient as necessary. The copy-to physician of this order is GABY Miguel The ordering physician of this order is GUADALUPE Pacheco us Gaby Woods DO IMG OB US PROCEDURES Final Resul t * RECURRENT VAGINITIS (HTRX) (11/05/2024 3:29 PM EDT) Pathologist [facility] ATOPOBIUM VAGINAE 0 19.961 - 24.689 ppm 11/06/2024 7:37 AM EDT [facility] ATOPOBIUM VAGINAE Not Detected 19.961 - 24.689 ppm 11/06/2024 7:37 AM EDT [facility] BVAB 2,3 (BACTERIAL VAGINOSIS ASSOCIATED BACTERIA 2, 3); MOBILUNCUS SPP 0 19.961 - 24.689 ppm 11/06/2024 7:37 AM EDT [facility] BVAB 2,3 (BACTERIAL VAGINOSIS ASSOCIATED BACTERIA 2, 3); MOBILUNCUS SPP Not Detected 19.961 - 24.689 ppm 11/06/2024 7:37 AM EDT [facility] LINDA ALBICANS, PARAPSILOSIS, TROPICALIS 0 19.961 - 30.770 ppm 11/06/2024 7:37 AM EDT [facility] LINDA ALBICANS, PARAPSILOSIS, TROPICALIS Not Detected 19.961 - 30.770 ppm 11/06/2024 7:37 AM EDT [facility] LINDA GLABRATA 0 23.000 - 32.138 ppm 11/06/2024 7:37 AM EDT [facility] LINDA GLABRATA Not Detected 23.000 - 32.138 ppm 11/06/2024 7:37 AM EDT [facility] LINDA KRUSEI 0 23.000 - 32.271 ppm 11/06/2024 7:37 AM EDT [facility] LINDA KRUSEI Not Detected 23.000 - 32.271 ppm 11/06/2024 7:37 AM EDT [facility] CHLAMYDIA TRACHOMATIS 0 23.000 - 31.467 ppm 11/06/2024 7:37 AM EDT [facility] CHLAMYDIA TRACHOMATIS Not Detected 23.000 - 31.467 ppm 11/06/2024 7:37 AM EDT [facility] GARDNERELLA VAGINALIS 0 19.961 - 24.689 ppm 11/06/2024 7:37 AM EDT [facility] GARDNERELLA VAGINALIS Not Detected 19.961 - 24.689 ppm 11/06/2024 7:37 AM EDT [facility] MEGASPHAERA (TYPES 1, 2) 0 19.961 - 24.689 ppm 11/06/2024 7:37 AM EDT [facility] MEGASPHAERA (TYPES 1, 2) Not Detected 19.961 - 24.689 ppm 11/06/2024 7:37 AM EDT [facility] NEISSERIA GONORRHOEAE 0 23.000 - 32.117 ppm 11/06/2024 7:37 AM EDT [facility] NEISSERIA GONORRHOEAE Not Detected 23.000 - 32.117 ppm 11/06/2024 7:37 AM EDT [facility] TRICHOMONAS VAGINALIS 0 23.000 - 32.119 ppm 11/06/2024 7:37 AM EDT [facility] TRICHOMONAS VAGINALIS Not Detected 23.000 - 32.119 ppm 11/06/2024 7:37 AM EDT [facility] MYCOPLASMA GENITALIUM 0 19.961 - 24.689 ppm 11/06/2024 7:37 AM EDT [facility] MYCOPLASMA GENITALIUM Not Detected 19.961 - 24.689 ppm 11/06/2024 7:37 AM EDT [facility] Tissue 11/05/2024 3:29 PM EDT 11/06/2024 2:40 AM EDT us Gaby Woods DO LAB BLOOD ORDERABLES Final Resul t [facility] [address] [place] [address] * IGP,APTIMA HPV,AGE GDLN (11/05/2024 1:57 PM EDT) AGE GDLN ACOG TESTING Note . [facility] Comment: TESTS RESULT FLAG UNITS REF RANGE LAB Clinician Provided Cytology Information Source.............Cervix No. of containers..01 ThinPrep Vial Age Algo ACOG Nery... -12 06 FLAG LEGEND: L-Low Normal,H-High Normal,LL-Alert Low,HH-Alert High <-Panic Low,>-Panic High,A-Abnormal,AA-Critical Abnormal Performed at: 01 =G [facility] [address] [place] [address] Gypsy Mtz MD, IGP, RFX APTIMA HPV ASCU Note . [facility] Comment: TESTS RESULT FLAG UNITS REF RANGE LAB DIAGNOSIS: 02 NEGATIVE FOR INTRAEPITHELIAL LESION OR MALIGNANCY. THIS SPECIMEN WAS RESCREENED PART OF OUR COMMISSIONS MANAGER PROGRAM. Specimen adequacy: 02 Satisfactory for evaluation. Endocervical and/or squamous metaplastic cells (endocervical component) are present. Performed by: 02 Felicity Rosen, Rn Ed ([facility]) QC reviewed by: 02 Esme Mahoney, Rn Ed ([facility]) . 02 Note: Note 02 The [...] <-Panic Low,>-Panic High,A-Abnormal,AA-Critical Abnormal Performed at: 02 [facility] [address] [place] [address] Gypsy Mtz MD, Performed at: =G - [facility] [place] [address] [place] [id number] [employer] Member: Gypsy Mtz MD, Phone: [phone] Performed at: - [facility] [address] [place] [id number] [employer] Member: Gypsy Mtz MD, Phone: [phone] 11/05/2024 1:57 PM EDT 11/05/2024 9:04 PM EDT Narrative [facility] - 11/11/2024 3:09 PM EDT SPATULA-ALONE CERVIX us Gaby Peggy DO LAB BLOOD ORDERABLES Final Resul t [facility] * PATHOLOGY REQUEST FOR LAB GIA (11/05/2024 12:00 AM EDT) PATHOLOGY REQUEST FOR LAB GIA 11/12/2024 8:15 AM EDT [facility] Comment:See report. Scanned copy available in EMR. Other Topography unknown / Unknown 11/05/2024 11/06/2024 1:31 PM EDT Narrative [facility] - 11/12/2024 8:15 AM EDT SKIN TAG us Gaby Peggy DO LAB BLOOD ORDERABLES Final Resul t Performing Organization Address [facility]/ZIP Co de Phone Number [address] [address], [facility] [address] [place] [address] * Pap Smear (11/05/2024 12:00 AM EDT) Swab Cervical swab / Unknown us Gaby Peggy DO LAB CYTOLOGY ORDERABLES Final Re sult EXTERNAL LAB from Last 3 Months Insurance BCBS Care Teams Senior Project Manager Engineering Relationship Specialty Start Date End Date Alberto Mayes MD PCP - General 05/02/23
--- OUTSIDE RECORDS SUMMARY | 2025-01-07 15:01 | XMS_ITS | Encounter Summary ---
Author Organization [facility] Address [address] [place] [address] Care Team Providers Care Visual Associate Name Role Phone Paloma Vazquez DO Unavailable Alberto Mayes MD Primary Care Provider Encounter Details Date Type Department Care Team (Late st Contact Info) Description 10/03/2024 Abstract [facility] [place] [address] Jack Woods DO [address] [facility] [address] [place], [place] [id number] Social History Tobacco Use Types Packs/Day Years [...] EDT Routine [facility] [address] [place] [address] Jayla Leiva PA [address] [place] [address] [place] [address] documented as of this encounter Visit Diagnoses Not on filedocumented in this encounter Care Teams Visual Associate Relationship Specialty Start Date End Date Alberto Mayes MD [address] [facility] [address] [place] [address] PCP - General 05/02/23 Paloma Vazquez DO [address] [facility] [address] [place] [address] Referring Physician Obstetrics and Gynecology 04/25/23 12/02/24 documented as of this encounter
--- OUTSIDE RECORDS SUMMARY | 2025-01-07 15:01 | XMS_ITS | Encounter Summary ---
Author Organization [facility] Address [address] [place] [address] Care Team Providers Care Networks Software Consultant Name Role Phone Alberto Mayes MD Primary Care Provider Encounter Details Date Type Department Care Team (Late Contact Info) Description 12/31/2024 Bamboo flowsheet [facility] [address] [facility] [place] [address] Jack Woods DO [address] [facility] [address] [place], [place] [address] Social History Tobacco Use Types Packs/Day Years [...] Department Care Team (Late Contact Info) Description 01/28/2025 8:40 AM EDT Routine [facility] [address] [facility] [place] [address] Jayla Leiva PA [address] [place] [address] [place] [address] documented as of this encounter Visit Diagnoses Not on filedocumented in this encounter Care Teams Networks Software Consultant Relationship Specialty Start Date End Date Alberto Mayes MD PCP - General 05/02/23 documented as of this encounter
--- OUTSIDE RECORDS SUMMARY | 2025-01-07 15:01 | XMS_ITS | Encounter Summary ---
Author Organization [facility] Address [address] [place] [address] Care Team Providers Care Personal Banking Officer Name Role Phone Alberto Mayes MD Primary Care Provider [phone] Encounter Details Date Type Department Care Team (Late st Contact Info) Description 01/03/2025 Telephone [facility] [address] [place] [address] Jack Woods DO [address] [place], [facility] [address] Social History Tobacco Use Types Packs/Day [...] on file documented as of this encounter Miscellaneous Notes * Telephone Encounter - Ale BRIANA Erwin - 01/03/2025 9:54 AM EDT Patient called the office and she states that she did black out at work and she did drink some fluids but did vomit this so started to sip it and feels better she thinks was dehydrated a little. Patient does not report injury and this was first time happening. Patient was advised to make sure to drink she can drink Gatordae Lyte and if this does happen again to report for Eval. PVU documented in this encounter Plan of Treatment Upcoming Encounters Date Type Department Care Team (Late st Contact Info) Description 01/28/2025 8:40 AM EDT Routine [facility] [address] [facility] [place] [address] Jayla Leiva PA [address] [facility] [place] [address] documented as of this encounter Visit Diagnoses Not on filedocumented in this encounter Care Teams Personal Banking Officer Relationship Specialty Start Date End Date Alberto Mayes MD PCP - General 05/02/23 documented as of this encounter
--- OUTSIDE RECORDS SUMMARY | 2025-01-07 15:01 | XMS_ITS | Encounter Summary ---
Author Organization [facility] Address [address] [place] [address] Care Team Providers Care Health Policy Analyst Name Role Phone Paloma Vazquez DO Unavailable [phone] Alberto Mayes MD Primary Care Provider Encounter Details Date Type Department Care Team (Late st Contact Info) Description 11/05/2024 Abstract [facility] [place] [phone] Jack Woods DO [address] [facility] [address] [place], [place] [id number] Social History Tobacco Use Types Packs/Day Years [...] EDT Routine [facility] [address] [place] [address] Jayla Leiva PA [address] [place] [address] [place] [address] documented as of this encounter Visit Diagnoses Not on filedocumented in this encounter Care Teams Health Policy Analyst Relationship Specialty Start Date End Date Alberto Mayes MD [address] [facility] [address] [place] [address] PCP - General 05/02/23 Paloma Vazquez DO [address] [facility] [address] [place] [address] Referring Physician Obstetrics and Gynecology 04/25/23 12/02/24 documented as of this encounter
--- OUTSIDE RECORDS SUMMARY | 2025-01-07 15:01 | XMS_ITS | Clinical Summary ---
Author Organization [facility] tem Address [id number] [address] [place] [address] Care Team Providers Care Practice Lead Name Role Phone Unavailable Primary Care Provider [...] by mouth in the morning. Active PNV 82-glxj-hkdbvwz olate-dha 29 mg iron-1 mg -350 mg comb pack,tablet DR,capsule DR Take 1 tablet by mouth in the morning. Active Encounters Date Type Department Care Team Description 12/10/2024 Travel 11/12/2024 10:00 AM EDT Office Visit Maternal- Medicine at [facility] [address] [place] [phone] Samantha Peres MD Adnexal mass (Primary Dx); 16 weeks gestation of ; Uterine fibroids affecting in second trimester; Localized swelling of right lower extremity 11/12/2024 8:33 AM EDT - 11/12/2024 11:59 PM EDT Hospital Encounter [facility] US Imaging [address] [place] [address] Encounter for anatomic survey Discharge Disposition: Home 11/12/2024 Orders Only Maternal- Medicine at [facility] [address] [place] [address] Fabrice, Jayla, BANK REPRESENTATIVE Adnexal mass (Primary Dx); Uterine fibroids affecting in second trimester; Localized swelling of right lower extremity 11/12/2024 Travel from Last 3 Months Family History Medical [...] 11/12/2024 8:47 AM EDT Plan of Treatment Health Maintenance Due Date Last Done Comments Depression Screening 2010 Adult BMI Follow Up Plan 02/07/2016 DTaP,Tdap and Td Vaccines (2 - Td or Tdap) 12/24/2019 12/23/2009 Influenza Vaccine 01/13/2025 03/18/2017 Adult BMI Screening 11/12/2025 11/12/2024 Tobacco Screening 11/12/2025 11/12/2024 Pap Smear 11/06/2027 11/05/2024 Medical Devices Not on file Procedures Procedure Name Priority Date/Time Associated Diagnosis Comments US MFM OB FOLLOW-UP, 1 FETUS Routine 12/10/2024 4:00 PM EDT Adnexal mass Uterine fibroids affecting in second trimester Localized swelling of right lower extremity FREE CELL DNA ([facility] SEND OUT) Routine 11/12/2024 2:42 PM EDT US MFM COMPREHENSIVE ANATOMIC SURVEY Routine 11/12/2024 10:10 AM EDT Encounter for anatomic survey from Last 3 Months Results * US MFM OB FOLLOW-UP, 1 FETUS (12/10/2024 4:00 PM EDT) Only the most recent of2 resultswithin the time period is included. Anatomical Region Laterality Modality OB-IMPLEMENTATION LEAD Ultrasound 12/10/2024 1:46 PM EDT Narrative 12/10/2024 4:07 PM EDT NAME: SERVANDO LANGLEY : 2000 SEX: F Accession Number: [id number] ORDERING PHYSICIAN: SAMANTHA PERES REFERRING PHYSICIAN: GABY FOX Coding ----- --------- Procedures 62451: Follow-up Ultrasound, per fetus Indication ----- --------- Screening for follow-up survey, Uterine fibroid affecting , Supervision of high risk (bilateral complex ovaries), Screening for cervical length History ----- --------- OB History 3. Para 0 [id number] Current ----- --------- Cell free DNA Low Risk analysis Maternal Assessment ----- --------- Physical Exam Height 168 cm, 5 ft 6 in. Weight 77 kg, 170 lb. Initial weight 77 kg, 170 lb. BMI 27.44 kg/m . Initial BMI 27.44 kg/m . Weight gain 0 kg, 0 lb Method ----- --------- Transabdominal and transvaginal ultrasound examination ----- --------- Rodriguez . Number of fetuses: 1 Dating ----- --------- LMP on: 07/23/2024 GA by LMP 20 w + 0 d PORFIRIO by LMP: 04/29/2025 Previous Ultrasound on: 09/19/2024 Type of prior assessment: GA GA at prior assessment date 8 w + 2 d GA by previous U/S 20 w + 0 d PORFIRIO by previous Ultrasound: 04/29/2025 Ultrasound examination on: 12/10/2024 GA by U/S based upon: AC, BPD, Femur, HC GA by U/S 20 w + 2 d PORFIRIO by U/S: 04/27/2025 Assigned: based on the LMP, selected on 11/12/2024 Assigned GA 20 w + 0 d Assigned PORFIRIO: 04/29/2025 General Evaluation ----- --------- Cardiac activity Present. FHR 146 bpm. Presentation: variable Placenta: Placental site: anterior, away from cervical os Umbilical cord: Cord vessels: 3 vessel cord. Insertion site: documented previously Amniotic fluid: Amount of AF: normal amount. MVP 5.9 cm Biometry ----- --------- Standard BPD 46.9 mm 20w 1d 58% Hadlock OFD 61.1 mm 21w 0d 83% Nuno HC 174.4 mm 20w 0d 40% Hadlock Cerebellum tr 20.0 mm 19w 2d 50% Hill Nuchal fold 4.7 mm AC 163.3 mm 21w 3d 86% Hadlock Femur 30.7 mm 19w 4d 25% Hadlock Humerus 30.4 mm 20w 0d 57% Nuno HC / AC 1.07 5% Hadlock EFW 356 g 71% Hadlock EFW (lb) 0 lb EFW (oz) 13 oz EFW by: Hadlock ([id number]-[id number]-FL) Extended Tibia 26.9 mm 19w 5d 48% Nuno Software Sales 5.3 mm CM 2.2 mm <1% Nicolaides Head / Face / Neck Cephalic index 0.77 28% Nicolaides Nasal bone: present Extremities / Bony Struc FL / BPD 0.65 13% Hadlock FL / HC 0.18 26% Hadlock FL / AC 0.19 1% Hadlock Other Structures FHR 146 bpm Anatomy ----- --------- The following structures appear normal: Head/Neck: Cranium. Lateral ventricles. Cavum septi pellucidi. Cerebellum. Cisterna magna. Parenchyma. Vermis. Face: Lips. Profile. Nose. Nasal bone. Maxilla. Mandible. Orbits. Heart/Thorax: 4-chamber view. RVOT view. LVOT view. 3-vessel view. 1-uhplix-ujztwqz view. Situs. Aortic arch view. Bicaval view. Ductal arch view. Interventricular septum. Great vessels. Cardiac position. Cardiac axis. Cardiac size. Cardiac rhythm. Right lung. Left lung. Diaphragm. Abdomen: Abdom. wall. Cord insertion. Stomach. Kidneys. Bladder. Small bowel. Large bowel. Spine: Cervical spine. Thoracic spine. Lumbar spine. Sacral spine. Extremities/Skeleton: Right foot. Left foot. Skeleton The following structures were documented previously: Head / Neck Choroid plexus. Midline falx. Neck. Abdomen Right renal artery. Left renal artery. Genitals. Extremities / Right upper arm. Right forearm. Right hand. Left upper arm. Left forearm. Left hand. Right upper leg. Right lower leg. Left upper leg. Left lower leg. Maternal Structures ----- --------- Uterus Visualized Fibroid(s) 1. Size 34 mm x 21 mm x 30 mm. Mean 28.3 mm. Vol 11.177 cm . Intramural, anterior Lt Low 2. Size 14 mm x 8 mm x 11 mm. Mean 10.9 mm. Vol 0.644 cm . Intramural, anterior ML Cervix Visualized Cervical length 4.41 cm Right Ovary Abnormal Size 2.3 cm x 2.4 cm x 4.3 cm. Vol 12.5 cm Appearance: Heterogenous appearance Left Ovary Abnormal Size 4.1 cm x 2.8 cm x 3.2 cm. Vol 19.3 cm Appearance: Heterogenous appearance Cul de Sac Visualized. Free fluid visualized Impression ----- --------- Single viable intrauterine with appropriate interval growth. EFW measures at the 71%, AC measures at the 86%. anatomic survey did not reveal sonographic evidence of any gross structural abnormalities. Amniotic fluid MVP measures 5.9 cm. Transvaginal cervical length measures 4.41 cm. Uterine fibroid(s) as noted above. Bilateral complex adnexal masses again noted with heterogenous appearance. Recommendations ----- --------- Please see [facility] recommendations from prior clinical and/or ultrasound report documentation. Follow up growth ultrasound in the 3rd trimester to be done in referring OB office. Subsequent follow up or other follow up as clinically determined by primary OB provider unless otherwise specified by [facility]. Results forwarded to ordering provider so they can follow up with the patient as necessary. Procedure Note Zion Castillo MD - 12/10/2024 NAME: SERVANDO LANGLEY : 2000 SEX: F Accession Number: [id number] ORDERING PHYSICIAN: SAMANTHA PERES REFERRING PHYSICIAN: GABY FOX Coding ----- --------- Procedures [id number]: Follow-up Ultrasound, per fetus Indication ----- --------- Screening for follow-up survey, Uterine fibroid affecting ,Supervision of high risk (bilateral complex ovaries), Screening for cervical length History ----- --------- OB History 3. Para 0 [id number] Current ----- --------- Cell free DNA Low Risk analysis Maternal Assessment ----- --------- Physical Exam Height 168 cm, 5 ft 6 in. Weight 77 kg, 170 lb. Initialweight 77 kg, 170 lb. BMI 27.44 kg/m . Initial BMI 27.44 kg/m . Weight gain 0 kg, 0 lb Method ----- --------- Transabdominal and transvaginal ultrasound examination ----- --------- Rodriguez . Number of fetuses: 1 Dating ----- --------- LMP on: 07/23/2024 GA by LMP 20 w + 0 d PORFIRIO by LMP: 04/29/2025 Previous Ultrasound on: 09/19/2024 Type of prior assessment: GA GA at prior assessment date 8 w + 2 d GA by previous U/S 20 w + 0 d PORFIRIO by previous Ultrasound: 04/29/2025 Ultrasound examination on: 12/10/2024 GA by U/S based upon: AC, BPD, Femur, HC GA by U/S 20 w + 2 d PORFIRIO by U/S: 04/27/2025 Assigned: based on the LMP, selected on 11/12/2024 Assigned GA 20 w + 0 d Assigned PORFIRIO: 04/29/2025 General Evaluation ----- --------- Cardiac activity Present. FHR 146 bpm. Presentation: variable Placenta: Placental site: anterior, away from cervical os Umbilical cord: Cord vessels: 3 vessel cord. Insertion site: documentedpreviously Amniotic fluid: Amount of AF: normal amount. MVP 5.9 cm Biometry ----- --------- Standard BPD 46.9 mm 20w 1d 58% Hadlock OFD 61.1 mm 21w 0d 83% Nuno HC 174.4 mm 20w 0d 40% Hadlock Cerebellum tr 20.0 mm 19w 2d 50% Hill Nuchal fold 4.7 mm AC 163.3 mm 21w 3d 86% Hadlock Femur 30.7 mm 19w 4d 25% Hadlock Humerus 30.4 mm 20w 0d 57% Nuno HC / AC 1.07 5% Hadlock EFW 356 g 71% Hadlock EFW (lb) 0 lb EFW (oz) 13 oz EFW by: Hadlock (FHY-YD-OY-FL) Extended Tibia 26.9 mm 19w 5d 48% Nuno Software Sales 5.3 mm CM 2.2 mm <1% Nicolaides Head / Face / Neck Cephalic index 0.77 28% Nicolaides Nasal bone: present Extremities / Bony Struc FL / BPD 0.65 13% Hadlock FL / HC 0.18 26% Hadlock FL / AC 0.19 1% Hadlock Other Structures FHR 146 bpm Anatomy ----- --------- The following structures appear normal: Head/Neck: Cranium. Lateral ventricles. Cavum septi pellucidi. Cerebellum.Cisterna magna. Parenchyma. Vermis. Face: Lips. Profile. Nose. Nasal bone. Maxilla. Mandible. Orbits. Heart/Thorax: 4-chamber view. RVOT view. LVOT view. 3-vessel view.4-wisulq-cowwfnz view. Situs. Aortic arch view. Bicaval view. Ductal arch view. Interventricular septum. Greatvessels. Cardiac position. Cardiac axis. Cardiac size. Cardiac rhythm. Right lung. Left lung. Diaphragm. Abdomen: Abdom. wall. Cord insertion. Stomach. Kidneys. Bladder. Smallbowel. Large bowel. Spine: Cervical spine. Thoracic spine. Lumbar spine. Sacral spine. Extremities/Skeleton: Right foot. Left foot. Skeleton The following structures were documented previously: Head / Neck Choroid plexus. Midline falx. Neck. Abdomen Right renal artery. Left renal artery. Genitals. Extremities / Right upper arm. Right forearm. Right hand. Left upper arm.Left forearm. Left hand. Right upper leg. Right lower leg. Left upper leg. Left lower leg. Maternal Structures ----- --------- Uterus Visualized Fibroid(s) 1. Size 34 mm x 21 mm x 30 mm. Mean 28.3 mm. Vol 11.177 cm .Intramural, anterior Lt Low 2. Size 14 mm x 8 mm x 11 mm. Mean 10.9 mm. Vol 0.644 cm .Intramural, anterior ML Cervix Visualized Cervical length 4.41 cm Right Ovary Abnormal Size 2.3 cm x 2.4 cm x 4.3 cm. Vol 12.5 cm Appearance: Heterogenous appearance Left Ovary Abnormal Size 4.1 cm x 2.8 cm x 3.2 cm. Vol 19.3 cm Appearance: Heterogenous appearance Cul de Sac Visualized. Free fluid visualized Impression ----- --------- Single viable intrauterine with appropriate interval growth. EFWmeasures at the 71%, AC measures at the 86%. anatomic survey did not reveal sonographic evidence of any grossstructural abnormalities. Amniotic fluid MVP measures 5.9 cm. Transvaginal cervical length measures 4.41 cm. Uterine fibroid(s) as noted above. Bilateral complex adnexal masses again noted with heterogenousappearance. Recommendations ----- --------- Please see [facility] recommendations from prior clinical and/or ultrasoundreport documentation. Follow up growth ultrasound in the 3rd trimester to be done in referringOB office. Subsequent follow up or other follow up as clinically determined byprimary OB provider unless otherwise specified by MFM. Results forwarded to ordering provider so they can follow up with thepatient as necessary. us Samantha Peres MD IMG US ORDERABLES Final Result * Free Cell DNA ([facility] Send Out) (11/12/2024 2:42 PM EDT) us Not In System Ref Prov LAB BLOOD ORDERABLES Ella l Result MANUALLY TRANSCRIBED RESULTS from Last 3 Months Insurance [address] [place], [place] [id number] [place] [address]
--- OUTSIDE RECORDS SUMMARY | 2025-01-07 15:01 | XMS_ITS | Encounter Summary ---
Author Organization [facility] Address [address] [place] [address] Care Team Providers Care Interior Surface Insulation Worker Name Role Phone Paloma Vazquez DO Unavailable Alberto Mayes MD Primary Care Provider [phone] Encounter Details Date Type Department Care Team (Late st Contact Info) Description 09/25/2024 Abstract [facility] [place] [phone] Jack Woods DO [address] [place], [place] [id number] Social History Tobacco Use Types Packs/Day Years [...] EDT Routine [facility] [address] [place] [address] Jayla Leiva PA [address] [place] [address] [place] [address] documented as of this encounter Visit Diagnoses Not on filedocumented in this encounter Care Teams Interior Surface Insulation Worker Relationship Specialty Start Date End Date Alberto Mayes MD [address] [facility] [address] [place] [address] PCP - General 05/02/23 Paloma Vazquez DO [address] [facility] [address] [place] [address] Referring Physician Obstetrics and Gynecology 04/25/23 12/02/24 documented as of this encounter
--- OUTSIDE RECORDS SUMMARY | 2025-01-07 15:01 | XMS_ITS | Encounter Summary ---
Author Organization [facility] Address [address] [place] [address] Care Team Providers Care Compliance Consultant Name Role Phone Paloma Vazquez DO Unavailable Alberto Mayes MD Primary Care Provider Encounter Details Date Type Department Care Team (Late st Contact Info) Description 11/12/2024 Abstract [facility] [place] [phone] Jack Woods DO [address] [facility] [address] [place], [place] [id number] Social History Tobacco Use Types Packs/Day Years [...] EDT Routine RIMMA GALDAMEZ [address] [place] [address] Jayla Leiva PA [address] [place] [address] [place] [address] documented as of this encounter Visit Diagnoses Not on filedocumented in this encounter Care Teams Compliance Consultant Relationship Specialty Start Date End Date Alberto Mayes MD [address] [facility] [address] [place] [address] PCP - General 05/02/23 Paloma Vazquez DO [address] [facility] [address] [place] [address] Referring Physician Obstetrics and Gynecology 04/25/23 12/02/24 documented as of this encounter
--- OUTSIDE RECORDS SUMMARY | 2025-01-07 15:01 | XMS_ITS | Encounter Summary ---
Author Organization [facility] Address [address] [place] [address] Care Team Providers Care Director Nurses' Registry Name Role Phone Paloma Vazquez DO Unavailable Alberto Mayes MD Primary Care Provider Encounter Details Date Type Department Care Team (Late st Contact Info) Description 11/12/2024 Abstract [facility] [place] [phone] Jack Woods DO [address] [facility] [address] [place], [place] [id number] Social History Tobacco Use Types Packs/Day Years [...] EDT Routine RIMMA GALDAMEZ [address] [place] [address] Jayla Leiva PA [address] [place] [address] [place] [address] documented as of this encounter Visit Diagnoses Not on filedocumented in this encounter Care Teams Director Nurses' Registry Relationship Specialty Start Date End Date Alberto Mayes MD [address] [facility] [address] [place] [address] PCP - General 05/02/23 Paloma Vazquez DO [address] [facility] [address] [place] [address] Referring Physician Obstetrics and Gynecology 04/25/23 12/02/24 documented as of this encounter
--- OUTSIDE RECORDS SUMMARY | 2025-01-07 15:01 | XMS_ITS | Encounter Summary ---
Author Organization [facility] Address [address] [place] [address] Care Team Providers Care Clinical Services Consultant Name Role Phone Paloma Vazquez DO Unavailable [phone] Alberto Mayes MD Primary Care Provider Encounter Details Date Type Department Care Team (Late st Contact Info) Description 05/01/2023 External Result Encounter [facility] External Department Unsolicited Paloma Vazquez, DO [address] [facility] [address] [place] [address] Social History Tobacco Use Types Packs/Day Years [...] 01/28/2025 8:40 AM EDT Routine [facility] [address] [facility] [place] [phone] Jayla Leiva PA [address] [facility] [address] [place], [place] [phone] documented as of this encounter Procedures Procedure Name Priority Date/Time Associated Diagnosis Comments XR HYSTEROSALPINGOGRAM 3 11:41 AM EST documented in this encounter Results * XR hysterosalpingogram (05/01/2023 11:41 AM EST) Anatomical Region Laterality Modality Uterus Radiographic Jennifer ging 05/01/2023 11:4 1 AM EST Impressions 05/02/2023 2:28 PM EST Normal hysterosalpingogram. Impression dictated by: Librado Haney M.D.05/01/2023 11:43 AM Dictation Location: [place] [address] Transcribed By: [facility] 05/01/23 1143 Dictated By: Librado Haney II, MD 05/01/23 1141 Signed By: <Electronically signed by Librado Haney II, MD in OV> 05/01/23 1143 Narrative 05/02/2023 2:28 PM EST [facility] [place] [address] Fluoroscopy Report Signed Patient: Daphney Montesinos MR#: [id number] : 2000 Acct:[id number] Age/Sex: 23 / F ADM Date: 05/01/23 Loc: XD Room: Type: [facility] Attending Dr: Paloma Vazquez DO Copies to: [...] hysterosalpingography Procedure Note Radiology, Radiologist, - 06/27/2023 [facility] Main [place] [address] [place] [address] Fluoroscopy Report Signed Patient: Daphney Montesinos JMR#: [id number] : 2000Acct:[id number] Age/Sex: 23 / FADM Date: 05/01/23 Loc: XD Room:Type: [facility] Attending Dr: Paloma Vazquez DO Copies to: [...] Librado Haney M.D.05/01/2023 11:43 AM Dictation Location: [place] [address] Transcribed By: [facility] 05/01/23 1143 Dictated By: Librado Haney II, MD 05/01/23 1141 Signed By: <Electronically signed by Librado Haney II, MD inOV> 05/01/23 1143 Paloma Vazquez DO IMG XR PROCEDURES Edited Re sult - Final documented in this encounter Visit Diagnoses Not on filedocumented in this encounter Care Teams Clinical Services Consultant Relationship Specialty Start Date End Date Alberto Mayes MD [address] [facility] [address] [place] [address] PCP - General 05/02/23 Paloma Vazquez DO [address] [facility] [address] [place] [address] Referring Physician Obstetrics and Gynecology 04/25/23 12/02/24 documented as of this encounter
--- OUTSIDE RECORDS SUMMARY | 2025-01-07 15:01 | XMS_ITS | Encounter Summary ---
Author Organization [facility] tem Address [id number] [address] [place] [address] Care Team Providers Care Dry Box Tender Name Role Phone Unavailable Primary Care Provider Unavailabl e Encounter Details Date Type Department Care Team (Late st Contact Info) Description 10/04/2024 Orders Only Maternal- Medicine at [facility] [address] [place] [address] Ref Prov, [place] [address] Social History Tobacco Use Types Packs/Day Years [...] as of this encounter Plan of Treatment Not on file documented as of this encounter Procedures Procedure [...]
--- OUTSIDE RECORDS SUMMARY | 2025-01-07 15:01 | XMS_ITS | Clinical Summary ---
Author Organization [facility] Address [address] [facility] [address], [address] [place] [address] Care Team Providers Care Leach Cell Operator Name Role Phone Unavailable Primary Care Provider [...]
[2025-01-07 15:02] VITALS: BP 119/84; PULSE 117; O2SAT 100; BMI 29.2
--- OUTSIDE RECORDS SUMMARY | 2025-01-07 15:02 | XMS_ITS | Encounter Summary ---
Author Organization [facility] Address [address] [place] [address] Care Team Providers Care Assistant Fitness Manager Name Role Phone Paloma Vazquez DO Unavailable Alberto Mayes MD Primary Care Provider Encounter Details Date Type Department Care Team (Late st Contact Info) Description 12/08/2023 Abstract [facility] [address] [place] [address] Corie Cavanaugh LPN [address] [place] [phone] Social History Tobacco Use Types Packs/Day Years [...] Description 01/28/2025 8:40 AM EDT Routine [facility] [address] [place] [address] Jayla Leiva PA [address] [facility] [place] [address] documented as of this encounter Visit Diagnoses Not on filedocumented in this encounter Care Teams Assistant Fitness Manager Relationship Specialty Start Date End Date Alberto Mayes MD [address] [facility] [address] [place] [address] PCP - General 05/02/23 Paloma Vazquez DO [address] [facility] [address] [place] [address] Referring Physician Obstetrics and Gynecology 04/25/23 12/02/24 documented as of this encounter
--- OUTSIDE RECORDS SUMMARY | 2025-01-07 15:02 | XMS_ITS | Encounter Summary ---
Author Organization [facility] Address [address] [place] [address] Care Team Providers Care Title I Assistant Name Role Phone Alberto Mayes MD Primary Care Provider Encounter Details Date Type Department Care Team (Late Contact Info) Description 01/07/2025 Bamboo flowsheet [facility] [address] [place] [address] [place] [address] Jayla Leiva PA [address] [place] [address] Dr [place], [place] [address] Social History Tobacco Use Types Packs/Day Years [...] 8:40 AM EDT Routine [facility] [address] [place] [address] Jayla LeivaREKHA [address] [place] [address] [place] [address] documented as of this encounter Visit Diagnoses Not on filedocumented in this encounter Care Teams Title I Assistant Relationship Specialty Start Date End Date Alberto Mayes MD PCP - General 05/02/23 documented as of this encounter
--- OUTSIDE RECORDS SUMMARY | 2025-01-07 15:02 | XMS_ITS | Encounter Summary ---
Author Organization [facility] Address [address] [place] [address] Care Team Providers Care Glove Printer Name Role Phone Paloma Vazquez DO Unavailable Alberto Mayes MD Primary Care Provider Encounter Details Date Type Department Care Team (Late st Contact Info) Description 12/06/2023 Abstract [facility] [address] [facility] [place] [address] Corie Cavanaugh LPN [address] [place] [phone] Social History Tobacco Use Types Packs/Day Years [...] 8:40 AM EDT Routine [facility] [address] [facility] [place] [address] Jayla Leiva PA [address] [facility] [place] [address] documented as of this encounter Visit Diagnoses Not on filedocumented in this encounter Care Teams Glove Printer Relationship Specialty Start Date End Date Alberto Mayes MD [address] [facility] [address] [place] [address] PCP - General 05/02/23 Paloma Vazquez DO [address] [facility] [address] [place] [address] Referring Physician Obstetrics and Gynecology 04/25/23 12/02/24 documented as of this encounter
--- OUTSIDE RECORDS SUMMARY | 2025-01-07 15:02 | XMS_ITS | Encounter Summary ---
Author Organization [facility] Address [address] [place] [address] Care Team Providers Care Mobile Home Set Up Person Name Role Phone Paloma Vazquez DO Unavailable Alberto Mayes MD Primary Care Provider Encounter Details Date Type Department Care Team (Late st Contact Info) Description 12/27/2023 Abstract [facility] [address] [facility] [place] [address] Corie Cavanaugh LPN [address] [id number] Social History Tobacco Use Types Packs/Day Years [...] 8:40 AM EDT Routine [facility] [address] [facility] [place] [address] Jayla Leiva PA [address] [facility] [place] [address] documented as of this encounter Visit Diagnoses Not on filedocumented in this encounter Care Teams Mobile Home Set Up Person Relationship Specialty Start Date End Date Alberto Mayes MD [address] [facility] [address] [place] [address] PCP - General 05/02/23 Paloma Vazquez DO [address] [facility] [address] [place] [address] Referring Physician Obstetrics and Gynecology 04/25/23 12/02/24 documented as of this encounter
--- OUTSIDE RECORDS SUMMARY | 2025-01-07 15:02 | XMS_ITS | Encounter Summary ---
Author Organization [facility] Address [address] [place] [address] Care Team Providers Care Senior Fire Protection Engineer Name Role Phone Paloma Vazquez DO Unavailable [phone] Alberto Mayes MD Primary Care Provider Encounter Details Date Type Department Care Team (Late st Contact Info) Description 12/06/2023 Abstract [facility] [address] [facility] [place] [address] Corie Cavanaugh LPN [address] [place] [id number] Social History Tobacco Use Types Packs/Day Years [...] [address] [facility] [place] [address] Jayla Leiva PA [address] [facility] [place] [address] documented as of this encounter Visit Diagnoses Not on filedocumented in this encounter Care Teams Senior Fire Protection Engineer Relationship Specialty Start Date End Date Alberto Mayes MD [address] [facility] [address] [place] [address] PCP - General 05/02/23 Paloma Vazquez DO [address] [facility] [address] [place] [address] Referring Physician Obstetrics and Gynecology 04/25/23 12/02/24 documented as of this encounter
--- OUTSIDE RECORDS SUMMARY | 2025-01-07 15:02 | XMS_ITS | Encounter Summary ---
Author Organization [facility] Address [address] [place] [address] Care Team Providers Care Grey Goods Examiner Name Role Phone Paloma Vazquez DO Unavailable [phone] Alberto Mayes MD Primary Care Provider Encounter Details Date Type Department Care Team (Late st Contact Info) Description 01/08/2024 Abstract [facility] [address] [place] [phone] Jack Woods DO [address] [facility] [address] [place], [place] [id number] Social History Tobacco Use Types Packs/Day Years [...] 8:40 AM EDT Routine [facility] [address] [place] [address] Jayla Leiva PA [address] [facility] [address] [place], [place] [phone] documented as of this encounter Visit Diagnoses Not on filedocumented in this encounter Care Teams Grey Goods Examiner Relationship Specialty Start Date End Date Alberto Mayse MD [address] [facility] [facility] [address] [place] [address] PCP - General 05/02/23 Paloma Vazquez DO [address] [facility] [facility] [address] [place] [address] Referring Physician Obstetrics and Gynecology 04/25/23 12/02/24 documented as of this encounter
--- OUTSIDE RECORDS SUMMARY | 2025-01-07 15:02 | XMS_ITS | Encounter Summary ---
Author Organization [facility] Address [address] [place] [address] Care Team Providers Care Linux Engineer Name Role Phone Paloma Vazquez DO Unavailable [phone] Alberto Mayes MD Primary Care Provider Encounter Details Date Type Department Care Team (Late st Contact Info) Description 12/11/2023 Abstract [facility] [address] [facility] [place] [phone] Jack Woods DO [address] [facility] [address] [place], [place] [id number] Social History Tobacco Use Types Packs/Day Years [...] EDT Routine [facility] [address] [facility] [place] [address] Jayla Leiva PA [address] [facility] [address] [place], [place] [phone] documented as of this encounter Visit Diagnoses Not on filedocumented in this encounter Care Teams Linux Engineer Relationship Specialty Start Date End Date Alberto Mayes MD [address] [facility] [address] [place] [address] PCP - General 05/02/23 Paloma Vazquez DO [address] [facility] [address] [place] [address] Referring Physician Obstetrics and Gynecology 04/25/23 12/02/24 documented as of this encounter
--- OUTSIDE RECORDS SUMMARY | 2025-01-07 15:02 | XMS_ITS | Encounter Summary ---
Author Organization [facility] Address [address] [place] [address] Care Team Providers Care Nuclear Physics Teacher Name Role Phone Paloma Vazquez DO Unavailable Alberto Mayes MD Primary Care Provider Encounter Details Date Type Department Care Team (Late st Contact Info) Description 01/01/2024 Abstract [facility] [address] [facility] [place] [phone] Jack Woods DO [address] [facility] [address] [place], [place] [address] Social History Tobacco Use Types Packs/Day Years [...] GALDAMEZ [address] [facility] [place] [address] Jayla Leiva PA [address] [place] [address] documented as of this encounter Visit Diagnoses Not on filedocumented in this encounter Care Teams Nuclear Physics Teacher Relationship Specialty Start Date End Date Alberto Mayes MD [address] [facility] [address] [place] [address] PCP - General 05/02/23 Paloma Vazquez DO [address] [facility] [address] [place] [address] Referring Physician Obstetrics and Gynecology 04/25/23 12/02/24 documented as of this encounter
--- OUTSIDE RECORDS SUMMARY | 2025-01-07 15:02 | XMS_ITS | Clinical Summary ---
Author Organization [facility] Address [facility] [place] [address] Care Team Providers Care Director Of Acquisitions Name Role Phone Alberto Mayes MD Primary Care Provider [phone] Allergies Active Allergy Reactions Criticality Noted Date [...] patient's age to complete this topic Insurance [employer]/PREF/HMO/PPO ANTHEM BLUE/PREF/HMO/PPO Care Teams Director Of Acquisitions Relationship Specialty Start Date End Date Alberto Mayes MD [address] [place] [address] PCP - General Family Medicine 08/03/18
--- OUTSIDE RECORDS SUMMARY | 2025-01-07 15:02 | XMS_ITS | Encounter Summary ---
Author Organization [facility] Address [address] [place] [address] Care Team Providers Care Corporate Trainer Name Role Phone Paloma Vazquez DO Unavailable Alberto Mayes MD Primary Care Provider Encounter Details Date Type Department Care Team (Late st Contact Info) Description 01/01/2024 Abstract [facility] [address] [place] [phone] Jack Wodos DO [address] [facility] [address] [place], [place] [phone] Social History Tobacco Use Types Packs/Day Years [...] 8:40 AM EDT Routine [facility] [address] [facility] [place] [address] Jayla Leiva PA [address] [facility] [place] [address] documented as of this encounter Visit Diagnoses Not on filedocumented in this encounter Care Teams Corporate Trainer Relationship Specialty Start Date End Date Alberto Mayes MD [address] [facility] [address] [place] [address] PCP - General 05/02/23 Paloma Vazquez DO [address] [facility] [address] [place] [address] Referring Physician Obstetrics and Gynecology 04/25/23 12/02/24 documented as of this encounter
[2025-01-07 15:18] LABS: Hematocrit 31.9 % (36.0-48.0); Hemoglobin 11.3 g/dL (12.0-16.0); Immature Granulocytes Abs Auto 0.19 10^3/uL (0.00-0.03); Immature Granulocytes Pct Auto 1.5 % (0.0-0.5); Lymphocytes Absolute Auto 1.7 10^3/uL (1.2-3.8); Mean Corpuscular HGB Conc 35.4 g/dL (29.9-35.2); Mean Corpuscular Hemoglobin 31.6 pg (26.7-34.0); Mean Corpuscular Volume 89.1 fL (81.0-99.0); Platelet Count 299 10^3/uL (150-450); Red Blood Count 3.58 10^6/uL (4.20-5.40); White Blood Count 12.4 10^3/uL (4.0-11.0)
[2025-01-07 15:38] LABS: Anion Gap 13.1; Blood Urea Nitrogen 5.0 mg/dL (7.0-18.0); Calcium 8.1 mg/dL (8.5-10.1); Carbon Dioxide 24.2 mmol/L (21.0-32.0); Chloride 104 mmol/L (98-107); Estimated GFR (African America >60 (>=60 mL/min/1.73m^2); Estimated GFR (Non-African Ame >60 (>=60 mL/min/1.73m^2); Glucose 101 mg/dL (74-106); NT Pro B Type Natriuretic Pept 57.0 pg/mL (<=450.0); Potassium 3.3 mmol/L (3.5-5.1); Sodium 138 mmol/L (136-145)
[2025-01-07] MEDS: 0.9 % SODIUM CHLORIDE 1,000 ML 1000 ML IV (15:45)
[2025-01-07 15:46] VITALS: PULSE 116
--- NOTE | 2025-01-07 16:08 | CT_ITS ---
[address] [address] Patient Name: KORIN AL MRN: [id number] date: 2000 Sex: F Assigned Patient Location: ED.MAIN Current Patient Location: ED.MAIN Accession/Order Number: [id number] Exam Date: 01/07/2025 16:00 Report Date: 01/07/2025 16:41 At the request of: PATI HUDSON DO Procedure: CT angio chest CT angio chest 01/07/2025 4:09 PM SIGN AND SYMPTOMS: Irregular heart rate, dizziness, chest palpitations CONTRAST: 100 mL of intravenous Omnipaque 350 TECHNIQUE: Multidetector CT axial slices of the chest were obtained with IV contrast. Multiplanar and 3-D reformats were performed and viewed on a separate workstation and reviewed to further define anatomy and possible pathology. CT was performed with one or more of the following dose reduction techniques: Automated exposure control, adjustment of the mA and/or kV according to patient size, or use of iterative reconstruction technique. COMPARISON: None. FINDINGS: Lower neck: Thyroid gland within normal limits, no supraclavicle adenopathy. Vessels: Within normal limits. There is no evidence of pulmonary embolism. Mediastinum and Kya: Calcified left hilar lymph nodes are noted. Heart: Normal size. No pericardial effusion. Airways: Within normal limits Lungs: Within normal limits. Pleura: Within normal limits. Chest Wall: Within normal limits. Upper Abdomen: Within normal limits. Bones: Within normal limits. CT/CT angio chest IMPRESSION: No acute intracranial pathology. No evidence of pulmonary most. Impression dictated by: Librado Haney M.D. 01/07/2025 4:41 PM Dictation Location[facility] Electron[facility] authenticated by: [id number] Y Date: 01/07/2025 16:41
[2025-01-07 16:47] VITALS: BP 100/69; PULSE 95; O2SAT 96
--- NOTE | 2025-01-07 17:00 | ED.GENADUL1 ---
HPI HPI - General Adult General Chief complaint: Arrhythmia/Palpitations Stated complaint: 24 WEEKS IRREGULAR HEART RATE Time Seen by Provider: 01/07/25 14:58 Source: patient Mode of arrival: walk-in Limitations: no limitations History of Present Illness HPI narrative: 24-year-old female presents here to the emergency room with a chief complaint of a near syncopal event. She is currently 24 weeks . She was seen at her [facility] office earlier today complaining of dizziness lightheadedness elevated heart rate and near syncopal event earlier today. She states while at work she was doing an activity and fell to the floor with dizziness. She said her heart was racing. 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 She denies any chest pain but states over the past couple days she has increased shortness of breath. She states she has been drinking mom hydration which is an electrolyte supplement to form setter helper in her fluids. She has been drinking that for the past 2 weeks. Related Data Home Medications ?Medication ?Instructions ?Recorded ?Confirmed omeprazole 40 mg capsule,delayed 40 mg PO DAILY 11/12/24 01/07/25 release ondansetron HCl 4 mg tablet 4 mg PO Q6H PRN nausea and vomiting 11/12/24 01/07/25 vit no.95-ferrous 1 tab PO DAILY 11/12/24 01/07/25 fumarate 28 mg-folic acid 800 mcg tablet () aspirin 81 mg capsule 81 mg PO DAILY 01/07/25 01/07/25 Allergies Allergy/AdvReac Type Severity Reaction Status Date / Time ciprofloxacin (From Cipro) AdvReac Intermediate N/V Verified 01/07/25 15:01 prednisone AdvReac Intermediate n/v Verified 01/07/25 15:01 Opioid HPI Opioid Management Most Recent Opioid Data: Ur Phencyclidine Scrn, (NEGATIVE) Negative 09/24/24, 10:18 Review of Systems ROS Status of ROS 10 or more systems reviewed and unremarkable except as noted in history and below PFSH PFSH Social History Little interest or pleasure in doing things: not at all Feeling down, depressed, or hopeless: not at all Exam Constitutional Vital Signs, click to edit/add: Last Vital Signs Pulse 95 H 01/07/25 16:47 Resp 16 01/07/25 16:47 BP 100/69 01/07/25 16:47 Pulse Ox 96 01/07/25 16:47 O2 Del Method Room Air 01/07/25 15:02 Course Vital Signs Vital signs: Vital Signs Pulse Rate 117 H 01/07/25 15:02 Respiratory Rate 20 01/07/25 15:02 Blood Pressure 119/84 01/07/25 15:02 Pulse Oximetry 100 01/07/25 15:02 Oxygen Delivery Method Room Air 01/07/25 15:02 Pulse Rate 95 H 01/07/25 16:47 Respiratory Rate 16 01/07/25 16:47 Blood Pressure 100/69 01/07/25 16:47 Pulse Oximetry 96 01/07/25 16:47 Oxygen Delivery Method Room Air 01/07/25 15:02 Medical Decision Making MDM Narrative Medical decision making narrative: 24-year-old female presents here to the emergency room with a chief complaint of a near syncopal event. She is currently 24 weeks . She was seen at her [employer] [facility] office earlier today complaining of dizziness lightheadedness elevated heart rate and near syncopal event earlier today. She states while at work she was doing an activity and fell to the floor with dizziness. She said her heart was racing. 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 She denies any chest pain but states over the past couple days she has increased shortness of breath. She states she has been drinking mom hydration which is an electrolyte supplement to form setter helper in her fluids. She has been drinking that for the past 2 weeks. Patient was sent over to the emergency room for evaluation per her [facility] office. Patient had complete workup including a PE study which was negative. CBC and CMP were reviewed. Patient does not appear anemic. She does appear dehydrated as BUN and creatinine were 5.0 and 0.41. Patient was given a liter of fluids here she does feel much better heart rate has improved from the 130s to 140s at the [employer] [facility] office to 99-100 here in the emergency room. I explained hydration to the patient. To the patient's symptoms she will be given an outpatient order for a cardiac echo. If her symptoms should return or worsen she is to have the echo scheduled. Patient agrees with plan of care. She will follow-up with as scheduled [facility] office Differential Diagnosis Differential Diagnosis: Dehydration, syncopal, near syncopal event Medical Records Medical records reviewed: Yes I reviewed the patient's medical records Lab Data Lab results reviewed: Yes I reviewed the patient's lab results Labs: Lab Results 01/07/25 Range/Units 15:11 WBC 12.4 H (4.0-11.0) 10^3/uL RBC 3.58 L (4.20-5.40) 10^6/uL Hgb 11.3 L (12.0-16.0) g/dL Hct 31.9 L (36.0-48.0) % MCV 89.1 (81.0-99.0) fL MCH 31.6 (26.7-34.0) pg MCHC 35.4 H (29.9-35.2) g/dL RDW 12.1 (11.0-15.0) % Plt Count 299 (150-450) 10^3/uL MPV 9.6 (9.5-13.5) fL Neut % (Auto) 77.0 H (43.0-75.0) % Lymph % (Auto) 13.7 L (20.5-60.0) % [place] % (Auto) 6.6 (1.7-12.0) % Eos % (Auto) 0.8 L (0.9-7.0) % Baso % (Auto) 0.4 (0.2-2.0) % Neut # (Auto) 9.6 H (1.4-6.5) 10^3/uL Lymph # (Auto) 1.7 (1.2-3.8) 10^3/uL [place] # (Auto) 0.8 (0.3-0.8) 10^3/uL Eos # (Auto) 0.1 (0.0-0.7) 10^3/uL Baso # (Auto) 0.1 (0.0-0.1) 10^3/uL Abs Immat Gran (auto) 0.19 H (0.00-0.03) 10^3/uL Imm/Tot Granulo (auto) 1.5 H (0.0-0.5) % Sodium 138 (136-145) mmol/L Potassium 3.3 L (3.5-5.1) mmol/L Chloride 104 (98-107) mmol/L Carbon Dioxide 24.2 (21.0-32.0) mmol/L Anion Gap 13.1 BUN 5.0 L (7.0-18.0) mg/dL Creatinine 0.41 L (0.55-1.02) mg/dL Est GFR ( Amer) >60 (>=60 mL/min/1.73m^2) Est GFR (Non-Af Amer) >60 (>=60 mL/min/1.73m^2) BUN/Creatinine Ratio 12.2 Glucose 101 (74-106) mg/dL Calcium 8.1 L (8.5-10.1) mg/dL Troponin I High Sens <4.0 L (4.0-51.3) pg/mL NT-Pro-B Natriuret Pep 57.0 (<=450.0) pg/mL ECG Data Interpretation: 1542 sinus tachycardia with a rate of 108 bpm, ME interval 138 ms QRS duration [address] elevation or depression no STEMI Discharge Plan Discharge Chief Complaint: Arrhythmia/Palpitations Clinical Impression: Sinus tachycardia, Near syncope, Dehydration Patient Disposition: Home, Self-Care Time of Disposition Decision: 16:56 Condition: Good Prescriptions / Home Meds: No Action ondansetron HCl 4 mg tablet 4 mg PO Q6H PRN (Reason: nausea and vomiting) omeprazole 40 mg capsule,delayed release(DR/EC) 40 mg PO DAILY PNV no.95-ferrous fumarate-FA [] 28 mg iron- 800 mcg tablet 1 tab PO DAILY aspirin 81 mg capsule 81 mg PO DAILY Print Language: Vietnamese Instructions: Dehydration (ED), Near Syncope (ED) Referrals: Jack Woods DO [Physician, [facility]] - 1 week Referral Note: as scheduled or sooner if symptoms return Alberto Mayes MD [Primary Care Provider] - 1 week
== END 2025-01-07 17:24 | disposition home or self-care (01) ==
PROVIDERS: Emergency Provider Student in an Organized Health Care Education/Training Program; PCP Family Medicine
DX: O99.282 Endocrine, nutritional and metabolic diseases complicating pregnancy, second trimester (principal); E86.0 Dehydration; O99.891 Other specified diseases and conditions complicating pregnancy; R00.0 Tachycardia, unspecified; R55 Syncope and collapse; Z3A.24 24 weeks gestation of pregnancy
CPT/HCPCS: 36415; 71275; 80048; 83880; 84484; 85025; 93005; 96360; 99285; Q9967

== ENCOUNTER 2025-01-20 06:49 | Outpatient (OUT) | payer BC, SELFPAY ==
--- OUTSIDE RECORDS SUMMARY | 2015-04-03 10:28 | XMS_ITS | Continuity of Care Document ---
Author Organization [facility] Address [address] [place] [address] Phone Care Team Providers Care Pulmonology Technician Name Role Phone Jonathan Herrera Unavailable Unavailable Procedures Procedure Date TB INTRADERMAL TEST TB INTRADERMAL TEST Advance Directives Directive Yes / No Effective Date File Name No Information Encounters Encounter Description Practice Location Reason(s) For Visit Diagnoses Date Provider Providers Copied on Encounter [facility], [address] [place] [address], [id number], tel:[phone] [facility] No Information Beronica Lopez. [address] [place], [place], [id number], [place]. tel:[phone] [facility], [address] [place] [address], [id number], [place] tel:[phone] [facility] No Information Beronica Lopez. [address] [place], [place], [id number], [place]. tel:[phone] [facility], [address] [place], [place], [id number], [place] tel:[phone] [facility] No Information Beronica Lopez. [address] [place], [place], [id number], [place]. tel:[phone] Family History Family Member Type Diagnosis Age At Onset No Information Payers Payer name Insurance type Covered constitution party ID Authoriza tion(s) No Information Social [...]
--- OUTSIDE RECORDS SUMMARY | 2025-01-07 13:50 | XMS_ITS | Encounter Summary ---
Author Organization [facility] Address [address] [place] [address] Care Team Providers Care Insulation Sprayer Name Role Phone lAberto Mayes MD Primary Care Provider Reason for Referral * (Routine) - Incomplete Specialty Diagnoses / Procedures Referred By Ky martini Referred To Contact Radiology Diagnoses Palpitations Tachycardia Procedures Echocardiogram 2D complete Jayla Leiva PA [address] [facility] [place] [address] Phone: tel: fax: Referral ID Status Reason Start Date Expiration Date Visits Requested Visits Authorized [id number] Incomplete Perform Procedure 01/07/2025 07/06/2025 1 1 Reason for Visit * Reason Comments Routine Visit Encounter Details Date Type Department Care Team (Late st Contact Info) Description 01/07/2025 1:50 PM EDT Routine [facility] [place] [address] [place] [phone] Jayla Leiva PA [address] [place] [address] Dr [place], [facility]11 Second trimester ([facility]); 23 weeks gestation of ([facility]); Palpitations; Tachycardia Social History Tobacco Use Types Packs/Day Years [...] on file documented as of this encounter Progress Notes * REKHA Ott - 01/07/2025 1:50 PM EDT Reason for Appointment: Patient ID: Daphney Montesinos is a 24 y.o. female who presents for Routine Visit Patient presents today for Return OB appointment. MEDICATIONS Current Outpatient Medications Medication Instructions aspirin 81 MG oral suspension docusate sodium (COLACE) 100 mg, Daily Doxylamine Succinate, Sleep, (UNISOM PO) Take by mouth iron polysaccharides (PROFE) 391.3 mg, Oral, Daily omeprazole (PRILOSEC) 40 mg, Oral, Daily before breakfast, Do not crush or chew. ondansetron (ZOFRAN) 4 mg, Oral, Every 6 hours PRN, Take 1 tablet by mouth every 6 hours as needed for nausea. Vit w/Bp-Ofxwsxeav-ZS (PNV PO) pyridoxine (VITAMIN B-6) 25 mg, [...] Constitutional: Negative. HENT: Negative. Eyes: Negative. Respiratory: Positive for shortness of breath. Gastrointestinal: Negative. Genitourinary: Negative. Musculoskeletal: Negative. Skin: Negative. Neurological: Negative. All other systems reviewed and are negative. Hematological: Negative. Endocrine: Negative. Allergic/Immunologic: Negative. OBJECTIVE Objective: Physical Exam Constitutional: Appearance: Normal appearance. She is normal weight. HENT: Head: Normocephalic. Cardiovascular: Rate and Rhythm: Tachycardia present. Pulses: Normal pulses. Pulmonary: Effort: Pulmonary effort is normal. Breath sounds: Normal breath sounds. Abdominal: Palpations: Abdomen is soft. Musculoskeletal: General: Normal range of motion. Neurological: General: No focal deficit present. Mental Status: She is alert and oriented to person, place, and time. Skin: General: Skin is warm. Coloration: Skin is pale. Psychiatric: Mood and Affect: Mood normal. Behavior: Behavior normal. Thought Content: Thought content normal. Judgment: Judgment normal. Vitals and nursing note reviewed. Vitals: Estimated body mass index is 29.83 kg/m?? as calculated from the following: Height as of 02/06/24: 5' 6 . Weight as of 12/31/24: 184 lb 12.8 oz. BP: Patient's last menstrual period was 07/23/2024. ASSESSMENT & PLAN ICD-10-CM 1. Second trimester ([facility]) Z34.92 POCT urinalysis dipstick manually resulted iron polysaccharides (ProFe) 391.3 (180 Fe) MG capsule 2. 23 weeks gestation of ([facility]) Z3A.23 3. Palpitations R00.2 ECG 12 lead unit performed Echocardiogram 2D complete Echocardiogram 2D complete 4. Tachycardia R00.0 Echocardiogram 2D complete Echocardiogram 2D complete Return OB: Patient presents today for a routine obstetrics appointment. Patient is currently 24w1d . Patient states she is doing well but has complaints of being tired due to current . Patient has verbalizes frequent movement. Orders Placed This Encounter Procedures POCT urinalysis dipstick manually resulted ECG 12 lead unit performed Echocardiogram 2D complete Patient states she has been feeling light headed and heart racing. Patient states she has had 2 syncopal events recently. Patient is lighted headed and tachycardic in office. We will send her to ER today for r/o PE or pneumonia work up. Pt agrees with plan of care Follow Up: Patient is to return to office in 2 week for routine OB appointment. Documented by REKHA Ott on behalf of: REKHA Ott documented in this encounter Plan of Treatment Upcoming Encounters Date Type Department Care Team (Late st Contact Info) Description 01/21/2025 8:40 AM EDT Office Visit [facility] GALDAMEZ [address] [facility] [place] [phone] Jack Woods DO [address] [facility] [address] [place], [facility]11 01/28/2025 8:40 AM EDT Routine [facility] [address] [facility] [place] [address] Jayla Leiva PA [address] [facility] [place] [address] Scheduled Orders Name Type Priority Associated Diagnoses Order Schedule ECG 12 lead unit performed ECG Routine Palpitations Expected: 01/07/2025 (Approximate), Expires: 01/07/2026 Echocardiogram 2D complete Echocardiography Routine Palpitations Tachycardia Expected: 01/07/2025 (Approximate), Expires: 01/07/2027 documented as of this encounter Procedures Procedure Name Priority Date/Time Associated Diagnosis Comments POCT URINALYSIS DIPSTICK Routine 01/07/2025 2:18 PM EDT Second trimester ([facility]) documented in this encounter Results * (ABNORMAL) POCT urinalysis dipstick manually resulted (01/07/2025 2:18 PM EDT) Color, UA Yellow Clarity, UA Clear Glucose, UA Negative Negative - 1999(110) ++++ mg/dL Bilirubin, UA Negative Negative - 4(70) +++ mg/dL Ketones, UA Negative Negative - 160(16) ++++ mg/dL Spec Grav, UA 1.010 1 - 1.03 Blood, UA Negative Negative - 50 Clarke/mcL pH, UA 6.5 5 - 9 Protein, UA Negative Negative - 1999(20) ++++ mg/dL Urobilinogen, UA 0.2 0.2 - 12 mg/dL Leukocytes, UA Positive Negative - 500+++ Kamaljit/mcL Comment:3+ Nitrite, UA Negative Negative - Positive Urine 01/07/2025 2:18 PM EDT Jayla DA SILVA POINT OF CARE TEST ENTER/EDIT OR DERABLES Final Result documented in this encounter Visit Diagnoses Diagnosis Second trimester ([facility]) state, incidental 23 weeks gestation of ([facility]) Palpitations Tachycardia Unspecified tachycardia documented in this encounter Care Teams Insulation Sprayer Relationship Specialty Start Date End Date Alberto Mayes MD PCP - General 05/02/23 documented as of this encounter
--- OUTSIDE RECORDS SUMMARY | 2025-01-16 09:20 | XMS_ITS | Encounter Summary ---
Author Organization [facility] Address [address] [address] Care Team Providers Care Water Safety Instructor Name Role Phone Alberto Mayes MD Primary Care Provider Reason for Visit * Reason Comments Routine Visit Encounter Details Date Type Department Care Team (Late st Contact Info) Description 01/16/2025 9:20 AM EDT Office Visit [facility] [facility] [address] [place] [address] Jack Woods DO [address] [place], [place] [phone] 25 weeks gestation of ([facility]); Second trimester ([facility]); Palpitations; Syncope, unspecified syncope type; Gastroesophageal reflux in ([facility]) Social History Tobacco Use Types Packs/Day Years [...] 6 hours as needed for nausea. Vit w/Cw-Pcpazjvtr-IH (PNV PO) ALLERGIES Allergies Allergen Reactions Cephalexin [...] nursing note reviewed. Exam conducted with a steamtable worker present. Vitals: Estimated body mass index is 29.67 kg/m?? as calculated from the following: Height as of 02/06/24: 5' 6 . Weight as of this encounter: 183 lb 12.8 oz. BP: 120/78 Patient's last menstrual period was 07/23/2024. ASSESSMENT & PLAN ICD-10-CM 1. 25 weeks gestation of ([facility]) Z3A.25 POCT urinalysis dipstick manually resulted 2. Second trimester ([facility]) Z34.92 POCT urinalysis dipstick manually resulted 3. Palpitations R00.2 4. Syncope, unspecified syncope type R55 5. Gastroesophageal reflux in ([facility]) O99.619 K21.9 Patient presents today for a routine obstetrics appointment. Patient is currently 25w2d with a Estimated Date of Delivery: 04/29/25. Patient had spells where she passed out. Patient to have Cardiac Consult hopefully within the next week. Referral will be made today to Cardiology at [facility]. Patient has a EKG scheduled for Monday [...] Description 01/21/2025 8:40 AM EDT Office Visit [facility] [address] [place] [address] Jack Woods DO [address] [place], [place] [phone] 01/28/2025 8:40 AM EDT Routine [facility] [address] [place] [address] Jayla Leiva PA [address] [address] documented as of this encounter Procedures Procedure Name Priority Date/Time Associated Diagnosis Comments POCT URINALYSIS DIPSTICK Routine 01/16/2025 9:45 AM EDT 25 weeks gestation of ([facility]) Second trimester ([facility]) documented in this encounter Results * [...] Visit Diagnoses Diagnosis 25 weeks gestation of ([facility]) Second trimester ([facility]) state, incidental Palpitations Syncope, unspecified syncope type Gastroesophageal reflux in ([facility]) documented in this encounter Care Teams Water Safety Instructor Relationship Specialty Start Date End Date Alberto Mayes MD PCP - General 05/02/23 documented as of this encounter
--- OUTSIDE RECORDS SUMMARY | 2025-01-20 06:53 | XMS_ITS | Encounter Summary ---
Author Organization [facility] Address [address] [place] [address] Care Team Providers Care Post Doctoral Fellow Name Role Phone Paloma Vazquez DO Unavailable [phone] Alberto Mayes MD Primary Care Provider Encounter Details Date Type Department Care Team (Late st Contact Info) Description 11/14/2024 Orders Only [facility] [address] [place] [address] Manjula Elias MA Social History Tobacco [...] AM EDT Office Visit [facility] [address] [place] [address] Jack Woods DO [address] [place], [place] [phone] 01/28/2025 8:40 AM EDT Routine [facility] [address] [phone] Jayla Leiva PA [address] [address] documented as of this encounter Procedures Procedure Name Priority Date/Time Associated Diagnosis Comments PAP SMEAR Routine 11/05/2024 12:00 AM EDT documented in this encounter Results * Pap Smear (11/05/2024 12:00 AM EDT) Swab Cervical swab / Unknown Jack Woods DO LAB CYTOLOGY ORDERABLES Final Re sult EXTERNAL LAB documented in this encounter Visit Diagnoses Not on filedocumented in this encounter Care Teams Post Doctoral Fellow Relationship Specialty Start Date End Date Alberto Mayes MD [address] [place] [address] PCP - General 05/02/23 Paloma Vazquez DO [address] [place] [address] Referring Physician Obstetrics and Gynecology 04/25/23 12/02/24 documented as of this encounter
--- OUTSIDE RECORDS SUMMARY | 2025-01-20 06:53 | XMS_ITS | Clinical Summary ---
Author Organization [facility] Address [address] [place] [address] Care Team Providers Care Loan Representative Name Role Phone Alberto Mayes MD Primary Care Provider Allergies [...] MG oral suspension 10/14/19 24 Active Vit w/Rj-Tfkzdxmsd-IA (PNV PO) Active ondansetron (Zofran) 4 MG tabletIndications: Gastroesophageal reflux in ([facility]),Nausea and vomiting during ([facility]) Take 1 tablet (4 mg) by mouth every 6 (six) hours if needed for nausea or vomiting for up to 30 doses Take 1 tablet by mouth every 6 hours as needed for nausea. 30 tablet 3 11/21/19 25 Active Doxylamine Succinate, Sleep, (UNISOM PO) Take by mouth 025 Discontinued pyridoxine (Vitamin B-6) 25 MG tablet Take 25 mg by mouth Daily 025 Discontinued docusate sodium (Colace) 100 MG capsule Take 100 mg by mouth Daily 025 Discontinued omeprazole (PriLOSEC) 40 MG capsuleIndications :Gastroesophageal Reflux Disease,Heartburn Take 1 capsule (40 mg) by mouth in the morning. Take before meals. Do not crush or chew. 30 capsule 3 10/09/19 25 025 Discontinued iron polysaccharides (ProFe) 391.3 (180 Fe) MG capsuleIndications :Second trimester ([facility]) Take 1 capsule (391.3 mg) by mouth Daily 30 capsule 6 01/08/20 025 Discontinued Encounters Date Type Department Care Team Description 01/16/2025 9:20 AM EDT Office Visit [facility] [address] [place] [address] Gaby Woods DO 25 weeks gestation of ([facility]); Second trimester ([facility]); Palpitations; Syncope, unspecified syncope type; Gastroesophageal reflux in ([facility]) 01/16/2025 Telephone [facility] [address] [place], [phone] Kelley Sepulveda LPN 01/16/2025 Bamboo flowsheet [facility] [address] [place] [address] Gaby Woods DO 01/09/2025 Telephone [facility] [address] [place] [address] Jayla Leiva PA 01/07/2025 1:50 PM EDT Routine [facility] [address] [place] [address] Jayla Leiva PA Second trimester ([facility]); 23 weeks gestation of ([facility]); Palpitations; Tachycardia 01/07/2025 Bamboo flowsheet [facility] [address] [place] [address] Jayla Leiva PA 01/03/2025 [place] [address] Gaby Woods, 12/31/2024 2:10 PM EDT Routine [facility] [address] [place] [address] Gaby Woods, Second trimester ([facility]); 23 weeks gestation of ([facility]); Diabetes mellitus screening 12/31/2024 Bamboo flowsheet [facility] [address] [place] [address] Gaby Woods, DO 12/31/2024 Travel 12/03/2024 1:30 PM EDT Routine [facility] [address] [place] [address] [place] [address] Jayla Leiva, PA Second trimester ([facility]); 19 weeks gestation of ([facility]) 12/03/2024 Bamboo flowsheet [facility] [address] [place] [address] [place] [address] Jayla Leiva PA 11/20/2024 Telephone [facility] [address] [place] [address] [place] [address] Manjula Eli[place], [place] 11/14/2024 Orders Only [facility] [address] [place] [address] [place] [phone] Manjula Eli[place], [place] 11/12/2024 Abstract [facility] [address] [place] [address] [place] [address] Gaby Woods, 11/12/2024 Abstract [facility] [address] [place] [address] [place] [address] Gaby Woods, 11/12/2024 External Result Encounter [facility] [address] [place] [address] [place] [address] Gaby Woods, DO 11/05/2024 1:40 PM EDT Routine [facility] [place] [address] Gaby Woods, DO Well woman exam with routine gynecological exam; Second trimester ([facility]); 15 weeks gestation of ([facility]); Vaginal discharge; STD exposure 11/05/2024 Abstract [facility] [address] Gaby Woods, DO 11/05/2024 External Result Encounter NOMS External Department Unsolicited Gaby Woods, DO 11/05/2024 Clinisync Result Encounter NOMS External Department Unsolicited Gaby Woods, DO 11/05/2024 External Result Encounter NOMS External Department Unsolicited Gaby Woods, DO 11/05/2024 Bamboo flowsheet [facility] [address] [place] [address] [place] [address] Gaby Woods, DO 11/04/2024 Travel from Last 3 Months Family History [...] 12.8 oz) 01/16/2025 9:38 AM EDT Height 167.6 cm (5' 6 ) 2024 1:52 PM EDT Body Mass Index 29.67 2024 1:52 PM EDT Plan of Treatment Upcoming Encounters Date Type Department Care Team (Late st Contact Info) Description 01/21/2025 8:40 AM EDT Office Visit [facility] [address] [place] [address] Gaby Woods DO [address] [place] [address] 01/28/2025 8:40 AM EDT Routine [facility] [address] [address] Jayla Leiva PA [address] [place] [address] Procedures Procedure Name Priority Date/Time Associated Diagnosis Comments POCT URINALYSIS DIPSTICK Routine 01/16/2025 9:45 AM EDT 25 weeks gestation of ([facility]) Second trimester ([facility]) POCT URINALYSIS DIPSTICK Routine 01/07/2025 2:18 PM EDT Second trimester ([facility]) POCT URINALYSIS DIPSTICK Routine 12/31/2024 2:41 PM EDT Second trimester ([facility]) 23 weeks gestation of ([facility]) POCT URINALYSIS DIPSTICK Routine 12/03/2024 1:30 PM EDT Second trimester ([facility]) US OB 14+ WEEKS ANATOMY SCAN 11/12/2024 11:20 AM EDT RECURRENT VAGINITIS (HTRX) Routine 11/05/2024 3:29 PM EDT POCT URINALYSIS DIPSTICK Routine 11/05/2024 2:15 PM EDT Second trimester ([facility]) 15 weeks gestation of ([facility]) IGP,APTIMA HPV,AGE GDLN Routine 11/05/2024 1:57 PM EDT PAP SMEAR Routine 11/05/2024 12:00 AM EDT PATHOLOGY REQUEST FOR LAB GIA Routine 11/05/2024 12:00 AM EDT from Last 3 Months Results * (ABNORMAL) POCT urinalysis dipstick manually resulted (01/16/2025 9:45 AM EDT) Only the most recent of5 resultswithin [...] - Positive Urine 01/16/2025 9:45 AM EDT us Gaby Peggy DO POINT OF CARE TEST ENTER/EDIT OR DERABLES Final Result * US OB 14+ weeks anatomy scan (11/12/2024 11:20 AM EDT) Anatomical Region Laterality Modality Body Ultrasound 11/12/2024 11:2 0 AM EDT Narrative 11/12/2024 11:20 AM EDT THIS EXAM WAS PERFORMED AT [facility] NAME: SERVANDO LANGLEY : 2000 SEX: F Accession Number: [id number] ORDERING PHYSICIAN: GUADALUPE SCHMIDT REFERRING PHYSICIAN: GABY WOODS Coding ----- --------- Procedures 23451: Ultrasound, uterus, real time with image documentation, and maternal evaluation plus detailed anatomic examination, transabdominal approach;single or first gestation 46217: Transvaginal Ultrasound (OB) Indication ----- --------- Screening for Anatomic Survey, Uterine fibroid affecting , Supervision of high risk (bilateral complex ovaries), Screening for cervical length. History ----- --------- OB History 3. Para 0 [id number] Current ----- --------- Cell free DNA Low [...] EFW (oz) 5 oz EFW by: Hadlock (OYP-SM-FU-FL) Extended Tibia 17.7 mm 16w 0d 61% [...] Thorax 4-chamber view. RVOT view. 3-vessel view. 8-yqrloc-yqqefow view. Aortic arch view. Ductal arch view. [...] echogenic textures. Recommendations ----- --------- Please see [facility] documentation from today. The patient is scheduled in four weeks to complete anatomic survey and cervical length ultrasound. Subsequent follow up or other follow up as clinically determined by primary OB provider unless otherwise specified by [facility]. Results forwarded to ordering provider so they can follow up with the patient as necessary. The copy-to physician of this order is GABY Miguel The ordering physician of this order is GUADALUPE Pacheco Procedure Note Radiology, Radiologist, MD - 11/12/2024 THIS EXAM WAS PERFORMED AT [facility] NAME: SERVANDO LANGLEY : 2000 SEX: F Accession Number: [id number] ORDERING PHYSICIAN: GUADALUPE SCHMIDT REFERRING PHYSICIAN: GABY WOODS Coding ----- --------- Procedures [id number]: Ultrasound, uterus, real time with imagedocumentation, and maternal evaluation plus detailed anatomic examination, transabdominalapproach;single or first gestation 43455: Transvaginal Ultrasound (OB) Indication ----- --------- Screening for Anatomic Survey, Uterine fibroid affecting ,Supervision of high risk (bilateral complex ovaries), Screening for cervical length. History ----- --------- OB History 3. Para 0 [id number] Current ----- --------- Cell free DNA Low [...] EFW (oz) 5 oz EFW by: Hadlock (UHW-QI-UX-FL) Extended Tibia 17.7 mm 16w 0d 61% [...] Thorax 4-chamber view. RVOT view. 3-vessel view. 6-yzjizb-zyfowbdeigd. Aortic arch view. Ductal arch view. Interventricular [...] heterogenousechogenic textures. Recommendations ----- --------- Please see [facility] documentation from today. The patient is scheduled [...] is GUADALUPE Pacheco us Gaby Woods DO [facility] OB US PROCEDURES Final Resul t * RECURRENT VAGINITIS (HTRX) (11/05/2024 3:29 PM EDT) ATOPOBIUM VAGINAE 0 19.961 - 24.689 ppm 11/06/2024 7:37 AM EDT [facility] ATOPOBIUM VAGINAE Not Detected 19.961 - 24.689 ppm 11/06/2024 7:37 AM EDT [facility] BVAB 2,3 (BACTERIAL VAGINOSIS ASSOCIATED BACTERIA 2, 3); MOBILUNCUS SPP 0 19.961 - 24.689 ppm 11/06/2024 7:37 AM EDT [facility] BVAB 2,3 (BACTERIAL VAGINOSIS ASSOCIATED BACTERIA 2, 3); MOBILUNCUS SPP Not Detected 19.961 - 24.689 ppm 11/06/2024 7:37 AM EDT [facility] LINDA ALBICANS, PARAPSILOSIS, TROPICALIS 0 19.961 - 30.770 ppm 11/06/2024 7:37 AM EDT [facility] LINDA ALBICANS, PARAPSILOSIS, TROPICALIS Not Detected 19.961 - 30.770 ppm 11/06/2024 7:37 AM EDT [facility] LINDA GLABRATA 0 23.000 - 32.138 ppm 11/06/2024 7:37 AM EDT [facility] LINDA GLABRATA Not Detected 23.000 - 32.138 ppm 11/06/2024 7:37 AM EDT [facility] LINDA KRUSEI 0 23.000 - 32.271 ppm 11/06/2024 7:37 AM EDT [facility] LINDA KRUSEI Not Detected 23.000 - 32.271 ppm 11/06/2024 7:37 AM EDT [facility] CHLAMYDIA TRACHOMATIS 0 23.000 - 31.467 ppm 11/06/2024 7:37 AM EDT [facility] CHLAMYDIA TRACHOMATIS Not Detected 23.000 - 31.467 ppm 11/06/2024 7:37 AM EDT [facility] GARDNERELLA VAGINALIS 0 19.961 - 24.689 ppm 11/06/2024 7:37 AM EDT [facility] GARDNERELLA VAGINALIS Not Detected 19.961 - 24.689 ppm 11/06/2024 7:37 AM EDT [facility] MEGASPHAERA (TYPES 1, 2) 0 19.961 - 24.689 ppm 11/06/2024 7:37 AM EDT [facility] MEGASPHAERA (TYPES 1, 2) Not Detected 19.961 - 24.689 ppm 11/06/2024 7:37 AM EDT [facility] NEISSERIA GONORRHOEAE 0 23.000 - 32.117 ppm 11/06/2024 7:37 AM EDT [facility] NEISSERIA GONORRHOEAE Not Detected 23.000 - 32.117 ppm 11/06/2024 7:37 AM EDT [facility] TRICHOMONAS VAGINALIS 0 23.000 - 32.119 ppm 11/06/2024 7:37 AM EDT [facility] TRICHOMONAS VAGINALIS Not Detected 23.000 - 32.119 ppm 11/06/2024 7:37 AM EDT [facility] MYCOPLASMA GENITALIUM 0 19.961 - 24.689 ppm 11/06/2024 7:37 AM EDT [facility] MYCOPLASMA GENITALIUM Not Detected 19.961 - 24.689 ppm 11/06/2024 7:37 AM EDT [facility] Tissue 11/05/2024 3:29 PM EDT 11/06/2024 2:40 AM EDT us Gaby Woods DO LAB BLOOD ORDERABLES Final Resul t [facility] [address] [place] [address] * IGP,APTIMA HPV,AGE GDLN (11/05/2024 1:57 PM EDT) AGE GDLN ACOG TESTING Note . [facility] Comment: TESTS RESULT FLAG UNITS REF RANGE LAB Clinician Provided Cytology Information Source.............Cervix No. of containers..01 ThinPrep Vial Age Russell LIRA Nery... FLAG LEGEND: L-Low Normal,H-High Normal,LL-Alert Low,HH-Alert High <-Panic Low,>-Panic High,A-Abnormal,AA-Critical Abnormal Performed at: 01 =G [facility] [address] [address] Gypsy Mtz MD, IGP, RFX APTIMA HPV ASCU Note . TB Comment: TESTS RESULT FLAG UNITS REF RANGE LAB DIAGNOSIS: 02 NEGATIVE FOR INTRAEPITHELIAL LESION OR MALIGNANCY. THIS SPECIMEN WAS RESCREENED PART OF OUR FISHING HAND PROGRAM. Specimen adequacy: 02 Satisfactory for evaluation. Endocervical and/or squamous metaplastic cells (endocervical component) are present. Performed by: 02 Felicity Rosen, Cotton Tipper (ASCP) QC reviewed by: 02 Esme Mahoney, Cotton Tipper (ASCP) . 02 Note: Note 02 The Pap [...] <-Panic Low,>-Panic High,A-Abnormal,AA-Critical Abnormal Performed at: [address] [address] Gypsy Mtz MD, Performed at: = - [facility] [id number] Sedimentationist: Gypsy Mtz MD, Phone: [phone] Performed at: [facility] [id number] Sedimentationist: Gypsy Mtz MD, Phone: [phone] 11/05/2024 1:57 PM EDT 11/05/2024 9:04 PM EDT Renetta WALLACE - 11/11/2024 3:09 PM EDT SPATULA-ALONE CERVIX us Gaby Woods DO LAB BLOOD ORDERABLES Final Resul t [facility] * PATHOLOGY REQUEST FOR LAB GIA (11/05/2024 12:00 AM EDT) PATHOLOGY REQUEST FOR LAB GIA 11/12/2024 8:15 AM EDT [facility] Comment:See report. Scanned copy available in EMR. Other Topography unknown / Unknown 11/05/2024 11/06/2024 1:31 PM EDT Renetta [employer] - 11/12/2024 8:15 AM EDT SKIN TAG Gaby Peggy DO LAB BLOOD ORDERABLES Final Resul t [facility] [address] [place] [address], [facility] [address] [place] [address] * Pap Smear (11/05/2024 12:00 AM EDT) Swab Cervical swab / Unknown Gaby Peggy DO LAB CYTOLOGY ORDERABLES Final Re sult EXTERNAL LAB from Last 3 Months Insurance [facility] [address] [address] [employer] Care Teams Loan Representative Relationship Specialty Start Date End Date Alberto Mayes MD PCP - General 05/02/23
--- OUTSIDE RECORDS SUMMARY | 2025-01-20 06:53 | XMS_ITS | Encounter Summary ---
Author Organization [facility] Address [address] [place] [address] Care Team Providers Care Test Desk Supervisor Name Role Phone Paloma Vazquez DO Unavailable Alberto Mayes MD Primary Care Provider Encounter Details Date Type Department Care Team (Late st Contact Info) Description 05/01/2023 External Result Encounter NOM[facility] External Department Unsolicited Paloma Vazquez, DO [address] [place] [address] Social History Tobacco Use Types Packs/Day Years [...] 01/21/2025 8:40 AM EDT Office Visit [facility] [place] [facility] [address] [place] [address] Jack Woods DO [address] [facility] [place] [address] 01/28/2025 8:40 AM EDT Routine [facility] [address] [place] [address] Jayla Leiva PA [address] [facility] [place] [address] documented as of this encounter Procedures Procedure Name Priority Date/Time Associated Diagnosis Comments XR HYSTEROSALPINGOGRAM 11:41 AM EST documented in this encounter Results * XR hysterosalpingogram (05/01/2023 11:41 AM EST) Anatomical Region Laterality Modality Uterus Radiographic Jennifer ging 05/01/2023 11:4 1 AM EST Impressions 05/02/2023 2:28 PM EST Normal hysterosalpingogram. Impression dictated by: Librado Haney M.D.05/01/2023 11:43 AM Dictation Location: [place] [address] Transcribed By: [facility] 05/01/23 1143 Dictated By: Librado Haney II, MD 05/01/23 1141 Signed By: <Electronically signed by Librado Haney II, MD in OV> 05/01/23 1143 Narrative 05/02/2023 2:28 PM EST [place] [address] Fluoroscopy Report Signed Patient: Daphney Montesinos MR#: [id number] : 2000 Acct:[id number] Age/Sex: 23 / F ADM Date: 05/01/23 Loc: XD Room: Type: [facility] Attending Dr: Paloma Vazquez DO Copies to: [...] hysterosalpingography Procedure Note Radiology, Radiologist, - 06/27/2023 [facility] Main [place] [address] [place] [address] Fluoroscopy Report Signed Patient: Daphney Montesinos JMR#: [id number] : 2000Acct:[id number] Age/Sex: 23 / FADM Date: 05/01/23 Loc: XD Room:Type: [facility] Attending Dr: Paloma Vazquez DO Copies to: [...] Librado Haney M.D.05/01/2023 11:43 AM Dictation Location: [place] [address] Transcribed By: [facility] 05/01/23 1143 Dictated By: Librado Haney II, MD 05/01/23 1141 Signed By: <Electronically signed by Librado Haney II, MD inOV> 05/01/23 1143 us Paloma Vazquez DO IMG XR PROCEDURES Edited Re sult - Final documented in this encounter Visit Diagnoses Not on filedocumented in this encounter Care Teams Test Desk Supervisor Relationship Specialty Start Date End Date Alberto Mayes MD [address] [place] [address] PCP - General 05/02/23 Paloma Vazquez DO [address] [place] [address] Referring Physician Obstetrics and Gynecology 04/25/23 12/02/24 documented as of this encounter
--- OUTSIDE RECORDS SUMMARY | 2025-01-20 06:53 | XMS_ITS | Encounter Summary ---
Author Organization [facility] Address [address] [place] [address] Care Team Providers Care Lead Database Developer Name Role Phone Paloma Vazquez DO Unavailable [phone] Alberto Mayes MD Primary Care Provider [phone] Encounter Details Date Type Department Care Team (Late st Contact Info) Description 11/05/2024 Abstract [facility] [place] [address] Jack Woods DO [address] [place], [place] [phone] Social History Tobacco Use Types Packs/Day Years [...] Office Visit [facility] [address] [place] [address] Jack Woods DO [address] [place] [address] 01/28/2025 8:40 AM EDT Routine [facility] [address] [facility] [place] [address] Jayla Leiva PA [address] [place], [place] [address] documented as of this encounter Visit Diagnoses Not on filedocumented in this encounter Care Teams Lead Database Developer Relationship Specialty Start Date End Date Alberto Mayes MD [address] [facility] [address] [place] [address] PCP - General 05/02/23 Paloma Vazquez DO [address] [facility] [address] [place] [address] Referring Physician Obstetrics and Gynecology 04/25/23 12/02/24 documented as of this encounter
--- OUTSIDE RECORDS SUMMARY | 2025-01-20 06:53 | XMS_ITS | Encounter Summary ---
Author Organization [facility] Address [address] [place] [address] Care Team Providers Care Data Integration Analyst Name Role Phone Paloma Vazquez DO Unavailable [phone] Alberto Mayes MD Primary Care Provider Encounter Details Date Type Department Care Team (Late st Contact Info) Description 11/12/2024 Abstract [facility] [place] [address] Jack Woods DO [address] [facility] [address] [place], [place] [phone] Social History Tobacco Use Types Packs/Day Years [...] Office Visit [facility] [address] [place] [address] Jack Woods DO [address] [facility] [place] [address] 01/28/2025 8:40 AM EDT Routine [facility] [address] [place] [phone] Jayla Leiva PA [address] [facility] [address] [place], [place] [address] documented as of this encounter Visit Diagnoses Not on filedocumented in this encounter Care Teams Data Integration Analyst Relationship Specialty Start Date End Date Alberto Mayes MD [address] [facility] 210 [place] [address] PCP - General 05/02/23 Paloma Vazquez DO [address] [facility] 210 [place] [address] Referring Physician Obstetrics and Gynecology 04/25/23 12/02/24 documented as of this encounter
--- OUTSIDE RECORDS SUMMARY | 2025-01-20 06:53 | XMS_ITS | Encounter Summary ---
Author Organization [facility] Address [address] [place] [address] Care Team Providers Care Child And Adolescent Therapist Name Role Phone Paloma Vazquez DO Unavailable [phone] Alberto Mayes MD Primary Care Provider Encounter Details Date Type Department Care Team (Late st Contact Info) Description 12/11/2023 Abstract [facility] [address] [place] [phone] Jack Woods DO [facility] [address] [place], [place] [address] Social History Tobacco Use Types Packs/Day Years [...] Department Care Team (Late Contact Info) Description 01/21/2025 8:40 AM EDT Office Visit RIMMA GALDAMEZ [address] [place] [phone] Jack Woods DO [address] [place], [facility]11 01/28/2025 8:40 AM EDT Routine [facility] [address] [facility] [phone] Jayla Leiva PA [address] [facility] [place] [address] documented as of this encounter Visit Diagnoses Not on filedocumented in this encounter Care Teams Child And Adolescent Therapist Relationship Specialty Start Date End Date Alberto Mayes MD [address] [facility] 210 [place] [address] PCP - General 05/02/23 Paloma Vazquez DO [address] [facility] 210 [place] [address] Referring Physician Obstetrics and Gynecology 04/25/23 12/02/24 documented as of this encounter
--- OUTSIDE RECORDS SUMMARY | 2025-01-20 06:53 | XMS_ITS | Encounter Summary ---
Author Organization [facility] Address [address] [place] [address] Care Team Providers Care Community Support Professional Name Role Phone Paloma Vazquez DO Unavailable [phone] Alberto Mayes MD Primary Care Provider Encounter Details Date Type Department Care Team (Late st Contact Info) Description 12/06/2023 Abstract [facility] [address] [place] [address] Corie Cavanaugh LPN [address] [place] [id number] Social History Tobacco Use Types Packs/Day Years [...] AM EDT Office Visit RIMMA GALDAMEZ [address] [place] [address] Jack Woods DO [address] [place] [address] 01/28/2025 8:40 AM EDT Routine [facility] [address] [place] [phone] Jayla Leiva PA [address] [place] [address] documented as of this encounter Visit Diagnoses Not on filedocumented in this encounter Care Teams Community Support Professional Relationship Specialty Start Date End Date Alberto Mayes MD [address] [facility] 210 [place] [address] PCP - General 05/02/23 Paloma Vazquez DO [address] [facility] [address] [place] [address] Referring Physician Obstetrics and Gynecology 04/25/23 12/02/24 documented as of this encounter
--- OUTSIDE RECORDS SUMMARY | 2025-01-20 06:53 | XMS_ITS | Clinical Summary ---
Author Organization [facility] tem Address [id number] [address] [place] [address] Care Team Providers Care Physician/Ophthalmologist Name Role Phone Unavailable Primary Care Provider [...] by mouth in the morning. Active PNV 87-ufbs-qowqkfy olate-dha 29 mg iron-1 mg -350 mg comb pack,tablet DR,capsule DR Take 1 tablet by mouth in the morning. Active Encounters Date Type Department Care Team Description 12/10/2024 Travel 11/12/2024 10:00 AM EDT Office Visit Maternal- Medicine at [facility] [address] [place] [phone] Samantha Peres MD Adnexal mass (Primary Dx); 16 weeks gestation of ; Uterine fibroids affecting in second trimester; Localized swelling of right lower extremity 11/12/2024 8:33 AM EDT - 11/12/2024 11:59 PM EDT Hospital Encounter [facility] US Imaging [address] [place] [address] Encounter for anatomic survey Discharge Disposition: Home 11/12/2024 Orders Only Maternal- Medicine at [facility] [address] [place] [address] Fabrice, Jayla, CAPACITY MANAGER Adnexal mass (Primary Dx); Uterine fibroids affecting [...] period is included. Anatomical Region Laterality Modality OB-INSTRUCTIONAL MEDIA SERVICES TECHNICIAN Ultrasound 12/10/2024 1:46 PM EDT Narrative 12/10/2024 4:07 PM EDT NAME: SERVANDO LANGLEY : 2000 SEX: F Accession Number: [id number] ORDERING PHYSICIAN: SAMANTHA PERES REFERRING PHYSICIAN: GABY FOX Coding ----- --------- Procedures [id number]: Follow-up Ultrasound, per fetus Indication ----- --------- Screening for follow-up survey, Uterine fibroid affecting , Supervision of high risk (bilateral complex ovaries), Screening for cervical length History ----- --------- OB History 3. Para 0 [id number] Current ----- --------- Cell free DNA Low [...] EFW (oz) 13 oz EFW by: Hadlock (JIU-GQ-ES-FL) Extended Tibia 26.9 mm 19w 5d 48% Nuno Medical Office Technician 5.3 mm CM 2.2 mm <1% Nicolaides [...] view. RVOT view. LVOT view. 3-vessel view. 3-pbbqjk-yabejyb view. Situs. Aortic arch view. Bicaval view. [...] heterogenous appearance. Recommendations ----- --------- Please see [facility] recommendations from prior clinical and/or ultrasound report documentation. Follow up growth ultrasound in the 3rd trimester to be done in referring OB office. Subsequent follow up or other follow up as clinically determined by primary OB provider unless otherwise specified by [facility]. Results forwarded to ordering provider so they can follow up with the patient as necessary. Procedure Note Zion Castillo MD - 12/10/2024 NAME: SERVANDO LANGLEY : 2000 SEX: F Accession Number: [id number] ORDERING PHYSICIAN: SAMANTHA PERES REFERRING PHYSICIAN: GABY FOX Coding ----- --------- Procedures [id number]: Follow-up Ultrasound, per fetus Indication ----- --------- Screening for follow-up survey, Uterine fibroid affecting ,Supervision of high risk (bilateral complex ovaries), Screening for cervical length History ----- --------- OB History 3. Para 0 [id number] Current ----- --------- Cell free DNA Low [...] EFW (oz) 13 oz EFW by: Hadlock ([id number]) Extended Tibia 26.9 mm 19w 5d 48% Nuno Medical Office Technician 5.3 mm CM 2.2 mm <1% Nicolaides [...] 4-chamber view. RVOT view. LVOT view. 3-vessel view.6-qkrnzy-flcjiin view. Situs. Aortic arch view. Bicaval view. [...] with heterogenousappearance. Recommendations ----- --------- Please see [facility] recommendations from prior clinical and/or ultrasoundreport documentation. [...] RESULTS from Last 3 Months Insurance [address] [place], [place] [id number] [place] [address]
--- OUTSIDE RECORDS SUMMARY | 2025-01-20 06:53 | XMS_ITS | Encounter Summary ---
Author Organization [facility] Address [id number] [address] [place] [address] Care Team Providers Care Open Hearth Melter Name Role Phone Unavailable Primary Care Provider Unavailabl e Encounter Details Date Type Department Care Team (Late st Contact Info) Description 10/04/2024 Orders Only Maternal- Medicine at [facility] [address] [place] [address] Ref Prov, [place] [address] Social History Tobacco Use Types Packs/Day Years [...]
--- OUTSIDE RECORDS SUMMARY | 2025-01-20 06:53 | XMS_ITS | Encounter Summary ---
Author Organization [facility] Address [address] [place] [address] Care Team Providers Care News Cameraman Name Role Phone Paloma Vazquez DO Unavailable [phone] Alberto Mayes MD Primary Care Provider Encounter Details Date Type Department Care Team (Late st Contact Info) Description 11/12/2024 Abstract [facility] [place] [address] Jack Woods DO [address] [facility] [address] [place], [place] [phone] Social History Tobacco Use Types Packs/Day Years [...] Office Visit RIMMA GALDAMEZ [address] [place] [address] Jack Woods DO [address] [facility] [place] [address] 01/28/2025 8:40 AM EDT Routine [facility] [address] [facility] [place] [phone] Jayla Leiva PA [address] [facility] [address] [place], [place] [phone] documented as of this encounter Visit Diagnoses Not on filedocumented in this encounter Care Teams News Cameraman Relationship Specialty Start Date End Date Alberto Mayes MD [address] [facility] [address] [place] [address] PCP - General 05/02/23 Paloma Vazquez DO [address] [facility] [address] [place] [address] Referring Physician Obstetrics and Gynecology 04/25/23 12/02/24 documented as of this encounter
--- OUTSIDE RECORDS SUMMARY | 2025-01-20 06:53 | XMS_ITS | Encounter Summary ---
Author Organization [facility] Address [address] [place] [address] Care Team Providers Care Big Data Platform Architect Name Role Phone Paloma Vazquez DO Unavailable Alberto Mayes MD Primary Care Provider Encounter Details Date Type Department Care Team (Late st Contact Info) Description 12/08/2023 Abstract [facility] [address] [place] [address] Corie Cavanaugh LPN [address] [employer] [place] [phone] Social History Tobacco Use Types Packs/Day Years [...] AM EDT Office Visit RIMMA GALDAMEZ [address] [place] [address] Jack Woods DO [address] [place] [address] 01/28/2025 8:40 AM EDT Routine [facility] [address] [facility] [place] [address] Jayla Leiva PA [address] [facility] [place] [address] documented as of this encounter Visit Diagnoses Not on filedocumented in this encounter Care Teams Big Data Platform Architect Relationship Specialty Start Date End Date Alberto Mayes MD [address] [facility] [address] [place] [address] PCP - General 05/02/23 Paloma Vazquez DO [address] [facility] [address] [place] [address] Referring Physician Obstetrics and Gynecology 04/25/23 12/02/24 documented as of this encounter
--- OUTSIDE RECORDS SUMMARY | 2025-01-20 06:53 | XMS_ITS | Encounter Summary ---
Author Organization [facility] Address [address] [place] [address] Care Team Providers Care Marine Railway Operator Name Role Phone Paloma Vazquez DO Unavailable [phone] Alberto Mayes MD Primary Care Provider [phone] Encounter Details Date Type Department Care Team (Late Contact Info) Description 11/12/2024 External Result Encounter [facility] [place] [address] Gaby Woods DO [address] [place], [place] [phone] Social History Tobacco Use Types Packs/Day Years [...] AM EDT Office Visit [facility] [address] [place] [address] Gaby Woods, DO [address] [facility] [place], [place] [address] 01/28/2025 8:40 AM EDT Routine [facility] OBGYN [address] [facility] [place] [address] Jayla Leiva PA [address] [place] [address] documented as of this encounter Procedures Procedure Name Priority Date/Time Associated Diagnosis Comments US OB 14+ WEEKS ANATOMY SCAN 11/12/2024 11:20 AM EDT documented in this encounter Results * US OB 14+ weeks anatomy scan (11/12/2024 11:20 AM EDT) Anatomical Region Laterality Modality Body Ultrasound 11/12/2024 11:2 0 AM EDT Narrative 11/12/2024 11:20 AM EDT THIS EXAM WAS PERFORMED AT [facility] NAME: SERVANDO LANGLEY : 2000 SEX: F Accession Number: [id number] ORDERING PHYSICIAN: GUADALUPE SCHMIDT REFERRING PHYSICIAN: GABY WOODS Coding ----- --------- Procedures 00175: Ultrasound, uterus, real time with image documentation, and maternal evaluation plus detailed anatomic examination, transabdominal approach;single or first gestation 59193: Transvaginal Ultrasound (OB) Indication ----- --------- Screening for Anatomic Survey, Uterine fibroid affecting , Supervision of high risk (bilateral complex ovaries), Screening for cervical length. History ----- --------- OB History 3. Para 0 [id number] Current ----- --------- Cell free DNA Low [...] EFW (oz) 5 oz EFW by: Hadlock (BOX-EH-PB-FL) Extended Tibia 17.7 mm 16w 0d 61% [...] Thorax 4-chamber view. RVOT view. 3-vessel view. 4-ttbkts-lcfeyjs view. Aortic arch view. Ductal arch view. [...] ----- --------- Please see [facility] documentation from today. The patient is scheduled in four weeks to complete anatomic survey and cervical length ultrasound. Subsequent follow up or other follow up as clinically determined by primary OB provider unless otherwise specified by [facility]. Results forwarded to ordering provider so they can follow up with the patient as necessary. The copy-to physician of this order is GABY Miguel The ordering physician of this order is GUAADLUPE Pacheco Procedure Note Radiology, Radiologist, - 11/12/2024 THIS EXAM WAS PERFORMED AT [facility] NAME: SERVANDO LANGLEY : 2000 SEX: F Accession Number: [id number] ORDERING PHYSICIAN: GUADALUPE SCHMIDT REFERRING PHYSICIAN: GABY WOODS Coding ----- --------- Procedures 60881: Ultrasound, uterus, real time with imagedocumentation, and maternal evaluation plus detailed anatomic examination, transabdominalapproach;single or first gestation 85070: Transvaginal Ultrasound (OB) Indication ----- --------- Screening for Anatomic Survey, Uterine fibroid affecting ,Supervision of high risk (bilateral complex ovaries), Screening for cervical length. History ----- --------- OB History 3. Para 0 [id number] Current ----- --------- Cell free DNA Low [...] EFW (oz) 5 oz EFW by: Hadlock ([id number]-FL) Extended Tibia 17.7 mm 16w 0d 61% [...] Thorax 4-chamber view. RVOT view. 3-vessel view. 4-bfiisu-hydiaqwzxvr. Aortic arch view. Ductal arch view. Interventricular [...] on filedocumented in this encounter Care Teams Marine Railway Operator Relationship Specialty Start Date End Date Alberto Mayes MD [address] [facility] [address] [place] [address] PCP - General 05/02/23 Paloma Vazquez DO [address] [facility] [address] [place] [address] Referring Physician Obstetrics and Gynecology 04/25/23 12/02/24 documented as of this encounter
--- OUTSIDE RECORDS SUMMARY | 2025-01-20 06:53 | XMS_ITS | Encounter Summary ---
Author Organization [facility] Address [address] [place] [address] Care Team Providers Care Artificial Snow Making Machine Operator Name Role Phone Paloma Vazquez DO Unavailable Alberto Mayes MD Primary Care Provider Encounter Details Date Type Department Care Team (Late st Contact Info) Description 09/24/2024 Abstract [facility] [place] [address] Jack Woods DO [address] [facility] [address] [place], [place] [address] Social History Tobacco Use Types Packs/Day Years [...] Visit RIMMA GALDAMEZ [address] [place] [address] Jack Woods DO [address] [facility] [place] [address] 01/28/2025 8:40 AM EDT Routine [facility] [address] [facility] [place] [phone] Jayla Leiva PA [address] [facility] [address] [place], [place] [address] documented as of this encounter Visit Diagnoses Not on filedocumented in this encounter Care Teams Artificial Snow Making Machine Operator Relationship Specialty Start Date End Date Alberto Mayes MD [address] [facility] [address] [place] [address] PCP - General 05/02/23 Paloma Vazquez DO [address] [facility] [address] [place] [address] Referring Physician Obstetrics and Gynecology 04/25/23 12/02/24 documented as of this encounter
--- OUTSIDE RECORDS SUMMARY | 2025-01-20 06:53 | XMS_ITS | Encounter Summary ---
Author Organization [facility] Address [address] [place] [address] Care Team Providers Care Water Filter Cleaner Name Role Phone Paloma Vazquez DO Unavailable [phone] Alberto Mayes MD Primary Care Provider Encounter Details Date Type Department Care Team (Late st Contact Info) Description 12/06/2023 Abstract [facility] [address] [place] [address] Corie Cavanaugh LPN [address] [facility] [place] [phone] Social History Tobacco Use Types Packs/Day Years [...] AM EDT Office Visit RIMMA GALDAMEZ [address] [place] [address] Jack Woods DO [address] [place] [address] 01/28/2025 8:40 AM EDT Routine [facility] [address] [facility] [address] Jayla Leiva PA [address] [facility] [place] [address] documented as of this encounter Visit Diagnoses Not on filedocumented in this encounter Care Teams Water Filter Cleaner Relationship Specialty Start Date End Date Alberto Mayes MD [address] [facility] [address] [place] [address] PCP - General 05/02/23 Paloma Vazquez DO [address] [facility] [address] [place] [address] Referring Physician Obstetrics and Gynecology 04/25/23 12/02/24 documented as of this encounter
--- OUTSIDE RECORDS SUMMARY | 2025-01-20 06:53 | XMS_ITS | Encounter Summary ---
Author Organization [facility] Address [address] [place] [address] Care Team Providers Care Hat Presser Name Role Phone Alberto Mayes MD Primary Care Provider Encounter Details Date Type Department Care Team (Late st Contact Info) Description 01/09/2025 Telephone [facility] [address] [email or web address] [address] Jayla Leiva PA [address] [facility] [address] [place], [facility]11 Social History Tobacco Use Types Packs/Day [...] Miscellaneous Notes * Telephone Encounter - Ale Erwin LPN - 01/09/2025 12:01 PM EDT Provider made aware and she states that she would still like the patient to have the Echo done as ordered. Patient states that she is watching her pulse and it does vary. Patient is drinking gatoradelyte and water and she states something is off and she will do the Echo. Advised to call office if needing anything. * Telephone Encounter - Ale Erwin LPN - 01/09/2025 10:13 AM EDT I just wanted to call to leave a message for Jayla to just kind of give her an update on how I was doing. So yesterday I did have had 8 bottles of water and a gatorade lyte like she recommended and I was mostly laying down and I felt fine all day and then at dinner I had like 1 of those really tiny cans of coke and they only have 21 mg of caffeine. That is all I had all day and then I was symptomatic again, so I just wanted to let her know that I think part of it is a little bit caffeine induced,but I am not sure why such a small amount is doing it, but I am just not going to have anymore. Information was given to Provider to review. documented in this encounter Plan of Treatment Upcoming Encounters Date Type Department Care Team (Late st Contact Info) Description 01/21/2025 8:40 AM EDT Office Visit RIMMA GALDAMEZ [address] [facility] [place] [address] Jack Woods DO [address] [place], [place] [phone] 01/28/2025 8:40 AM EDT Routine [facility] [address] [place] [address] Jayla Leiva PA [address] [place] [address] documented as of this encounter Visit Diagnoses Not on filedocumented in this encounter Care Teams Hat Presser Relationship Specialty Start Date End Date Alberto Mayes MD PCP - General 05/02/23 documented as of this encounter
--- OUTSIDE RECORDS SUMMARY | 2025-01-20 06:53 | XMS_ITS | Encounter Summary ---
Author Organization [facility] Address [address] [place] [place] [address] Care Team Providers Care Director Of Category Management Name Role Phone Alberto Mayes MD Primary Care Provider Encounter Details Date Type Department Care Team (Late st Contact Info) Description 01/03/2025 Telephone [facility] OBG[facility] [address] [place] [phone] Jack Woods DO [address] [place], [facility]11 Social History [...] AM EDT Office Visit RIMMA GALDAMEZ [address] [facility] [place] [phone] Jack Woods DO [address] [facility] [address] [place], [facility] 01/28/2025 8:40 AM EDT Routine [facility] [address] [facility] [place] [address] Jayla Leiva PA [address] [facility] [address] [place], [facility]11 documented as of this encounter Visit Diagnoses Not on filedocumented in this encounter Care Teams Director Of Category Management Relationship Specialty Start Date End Date Alberto Mayes MD PCP - General 05/02/23 documented as of this encounter
--- OUTSIDE RECORDS SUMMARY | 2025-01-20 06:53 | XMS_ITS | Encounter Summary ---
Author Organization [facility] Address [address] [place] [address] Care Team Providers Care Community Relations Director Name Role Phone Paloma Vazquez DO Unavailable [phone] Alberto Mayes MD Primary Care Provider [phone] Encounter Details Date Type Department Care Team (Late st Contact Info) Description 09/25/2024 Abstract [facility] [place] [address] Jack Woods DO [address] [facility] [address] [place], [place] [address] Social History Tobacco Use Types Packs/Day Years [...] Office Visit RIMMA GALDAMEZ [address] [place] [address] Jack Woods DO [address] [facility] [place] [address] 01/28/2025 8:40 AM EDT Routine [facility] GALD[facility]Z [address] [place] [phone] Jayla Leiva PA [address] [facility] [address] [place], [place] [address] documented as of this encounter Visit Diagnoses Not on filedocumented in this encounter Care Teams Community Relations Director Relationship Specialty Start Date End Date Alberto Mayes MD [address] [facility] [address] [place] [address] PCP - General 05/02/23 Paloma Vazquez DO [address] [facility] [address] [place] [address] Referring Physician Obstetrics and Gynecology 04/25/23 12/02/24 documented as of this encounter
--- OUTSIDE RECORDS SUMMARY | 2025-01-20 06:53 | XMS_ITS | Encounter Summary ---
Author Organization [facility] Address [address] [place] [address] Care Team Providers Care Range Ecologist Name Role Phone Alberto Mayes MD Primary Care Provider Encounter Details Date Type Department Care Team (Late Contact Info) Description 01/07/2025 Bamboo flowsheet RIMMA GALDAMEZ [address] [facility] [place] [address] Jayla Leiva PA [facility] [address] [place], [place] [address] Social History Tobacco Use Types Packs/Day Years [...] AM EDT Office Visit RIMMA GALDAMEZ [address] [facility] [place] [address] Jack Woods DO [address] [facility] [place] [address] 01/28/2025 8:40 AM EDT Routine [facility] GALDAMEZ [address] [facility] [place] [phone] Jayla Leiva PA [address] [facility] [address] [place], [place] [id number] documented as of this encounter Visit Diagnoses Not on filedocumented in this encounter Care Teams Range Ecologist Relationship Specialty Start Date End Date Alberto Mayes MD PCP - General 05/02/23 documented as of this encounter
--- OUTSIDE RECORDS SUMMARY | 2025-01-20 06:53 | XMS_ITS | Encounter Summary ---
Author Organization [facility] Address [address] [place] [address] Care Team Providers Care Acrobatic Dancer Name Role Phone Paloma Vazquez DO Unavailable [phone] Alberto Mayes MD Primary Care Provider Encounter Details Date Type Department Care Team (Late st Contact Info) Description 01/08/2024 Abstract [facility] [address] [place] [phone] Jack Woods DO [facility] [address] [place], [place] [address] Social History Tobacco Use Types Packs/Day Years [...] AM EDT Office Visit RIMMA GALDAMEZ [address] [place] [phone] Jack Woods DO [address] [place], [id number] 01/28/2025 8:40 AM EDT Routine [facility] GALDAMEZ [address] [place] [phone] Jayla Leiva PA [address] [facility] [place] [address] documented as of this encounter Visit Diagnoses Not on filedocumented in this encounter Care Teams Acrobatic Dancer Relationship Specialty Start Date End Date Alberto Mayes MD [address] [facility] [address] [place] [address] PCP - General 05/02/23 Paloma Vazquez DO [address] [facility] 210 [place] [address] Referring Physician Obstetrics and Gynecology 04/25/23 12/02/24 documented as of this encounter
--- OUTSIDE RECORDS SUMMARY | 2025-01-20 06:53 | XMS_ITS | Encounter Summary ---
Author Organization [facility] Address [address] [place] [address] Care Team Providers Care Release Of Information Clerk Name Role Phone Paloma Vazquez DO Unavailable [phone] Alberto Mayes MD Primary Care Provider [phone] Encounter Details Date Type Department Care Team (Late st Contact Info) Description 01/01/2024 Abstract [facility] [address] [place] [phone] Jack Woods DO [facility] [address] [place], [place] [address] Social History Tobacco Use Types Packs/Day Years [...] AM EDT Office Visit RIMMA GALDAMEZ [address] [place] [address] Jack Woods DO [address] [place], [id number] 01/28/2025 8:40 AM EDT Routine [facility] GALDAMEZ [address] [facility] [place] [phone] Jayla Leiva PA [address] [facility] [place] [address] documented as of this encounter Visit Diagnoses Not on filedocumented in this encounter Care Teams Release Of Information Clerk Relationship Specialty Start Date End Date Alberto Mayes MD [address] [facility] [address] [place] [address] PCP - General 05/02/23 Paloma Vazquez DO [address] [facility] 210 [place] [address] Referring Physician Obstetrics and Gynecology 04/25/23 12/02/24 documented as of this encounter
--- OUTSIDE RECORDS SUMMARY | 2025-01-20 06:53 | XMS_ITS | Encounter Summary ---
Author Organization [facility] Address [address] [place] [address] Care Team Providers Care Back Sizer Name Role Phone Alberto Mayes MD Primary Care Provider [phone] Encounter Details Date Type Department Care Team (Late Contact Info) Description 01/16/2025 Bamboo flowsheet RIMMA GADLAMEZ [facility] [place] [address] Jack Woods DO [facility] [place] Michelle [place], [place] [address] Social History Tobacco Use Types Packs/Day Years [...] AM EDT Office Visit [facility] [address] [place] [address] Jack Woods DO [address] [facility] [place] [address] 01/28/2025 8:40 AM EDT Routine [facility] GALDAMEZ [address] [facility] [place] [address] Jayla Leiva PA [address] [facility] [place] [address] documented as of this encounter Visit Diagnoses Not on filedocumented in this encounter Care Teams Back Sizer Relationship Specialty Start Date End Date Alberto Mayes MD PCP - General 05/02/23 documented as of this encounter
--- OUTSIDE RECORDS SUMMARY | 2025-01-20 06:53 | XMS_ITS | Encounter Summary ---
Author Organization [facility] Address [address] [place] [address] Care Team Providers Care Medical Office Coordinator Name Role Phone Paloma Vazquez DO Unavailable Alberto Mayes MD Primary Care Provider Encounter Details Date Type Department Care Team (Late st Contact Info) Description 10/03/2024 Abstract [facility] [place] [phone] Jack Woods DO [address] [facility] [address] [place], [place] [phone] Social History Tobacco Use Types Packs/Day Years [...] Office Visit RIMMA GALDAMEZ [address] [place] [address] Jack Woods DO [address] [facility] [place] [address] 01/28/2025 8:40 AM EDT Routine [facility] GALD[facility]Z [address] [facility] [place] [phone] Jayla Leiva PA [address] [facility] [address] [place], [place] [phone] documented as of this encounter Visit Diagnoses Not on filedocumented in this encounter Care Teams Medical Office Coordinator Relationship Specialty Start Date End Date Alberto Mayes MD [address] [facility] 210 [place] [address] PCP - General 05/02/23 Paloma Vazquez DO [address] [facility] 210 [place] [address] Referring Physician Obstetrics and Gynecology 04/25/23 12/02/24 documented as of this encounter
--- OUTSIDE RECORDS SUMMARY | 2025-01-20 06:53 | XMS_ITS | Clinical Summary ---
Author Organization [facility] Address [address], [address] [place] [address] Care Team Providers Care Personnel Placement Specialist Name Role Phone Unavailable Primary Care Provider [...]
--- OUTSIDE RECORDS SUMMARY | 2025-01-20 06:53 | XMS_ITS | Encounter Summary ---
Author Organization [facility] Address [address] [place] [address] Care Team Providers Care Sustainability Coordinator Name Role Phone Paloma Vazquez DO Unavailable Alberto Mayes MD Primary Care Provider [phone] Encounter Details Date Type Department Care Team (Late st Contact Info) Description 01/01/2024 Abstract [facility] [address] [place] [phone] Jack Woods DO [facility] [address] [place], [place] [address] Social History Tobacco Use Types Packs/Day Years [...] AM EDT Office Visit RIMMA GALDAMEZ [address] [place] [address] Jack Woods DO [address] [place], [facility] 01/28/2025 8:40 AM EDT Routine [facility] GALD[facility] [address] [facility] [place] [phone] Jayla Leiva PA [address] [facility] [place] [address] documented as of this encounter Visit Diagnoses Not on filedocumented in this encounter Care Teams Sustainability Coordinator Relationship Specialty Start Date End Date Alberto Mayes MD [address] [facility] 210 [place] [address] PCP - General 05/02/23 Paloma Vazquez DO [address] [facility] 210 [place] [address] Referring Physician Obstetrics and Gynecology 04/25/23 12/02/24 documented as of this encounter
--- OUTSIDE RECORDS SUMMARY | 2025-01-20 06:54 | XMS_ITS | Clinical Summary ---
Author Organization [facility] Address [facility] [place] [address] Care Team Providers Care Solids Control Technician Name Role Phone Alberto Mayes MD Primary Care Provider [phone] Allergies Active Allergy Reactions Criticality Noted Date [...] 12/24/2019 12/23/2009 COVID-19 Vaccine (2023-06 5 season) 2025 Influenza Vaccine (#1) 2025 03/18/2017 Pneumococcal Vaccine: Ped or At-Risk Aged Out No longer eligible b ased on patient's age to complete this topic Insurance T[employer]/PREF/HMO/PPO ANTHEM BLUE/PREF/HMO/PPO Care Teams Solids Control Technician Relationship Specialty Start Date End Date Alberto Mayes MD [address] [place] [address] PCP - General Family Medicine 08/03/18
--- OUTSIDE RECORDS SUMMARY | 2025-01-20 06:54 | XMS_ITS | Encounter Summary ---
Author Organization [facility] Address [address] [place] [address] Care Team Providers Care Bus Or Truck Garage Mechanic Name Role Phone Paloma Vazquez DO Unavailable Alberto Mayes MD Primary Care Provider Encounter Details Date Type Department Care Team (Late st Contact Info) Description 12/27/2023 Abstract [facility] [address] [place] [address] Corie Cavanaugh LPN 102 [facility] [place] [phone] Social History Tobacco Use Types Packs/Day Years [...] AM EDT Office Visit RIMMA GALDAMEZ [address] [place] [address] Jack Woods DO [address] [place] [address] 01/28/2025 8:40 AM EDT Routine [facility] GALD[facility]Z [address] [facility] [place] [phone] Jayla Leiva PA [address] [facility] [place] [address] documented as of this encounter Visit Diagnoses Not on filedocumented in this encounter Care Teams Bus Or Truck Garage Mechanic Relationship Specialty Start Date End Date Alberto Mayes MD [address] [facility] [address] [place] [address] PCP - General 05/02/23 Paloma Vazquez DO [address] [facility] 210 [place] [address] Referring Physician Obstetrics and Gynecology 04/25/23 12/02/24 documented as of this encounter
--- OUTSIDE RECORDS SUMMARY | 2025-01-20 06:54 | XMS_ITS | CCD ---
Author Organization [facility] Care Team Providers Care Fish [employer]cher[employer] Man Name Role Phone KEYLA LEYVA Attending Unavailable Unavailable Primary Care Provider Unavailcasimiro Anton Rina Unavailable MD Zachary Mayes Primary Care Provider DO Paloma Vazquez Attending Provider [phone] MD Zachary Mayes Primary Care Provider MD Jackie Reardon Attending Provider DO Jack Woods Attending Provider Paloma Vazquez DO Unavailable Gerber NO, Alberto Primary Care Provider [phone] Gerber [facility], [facility] [place] Primary Care Provider Jack Woods DO Attending Provider Unavailable Primary Care Provider UnavailZachary Tracy Primary Care Unavailable Jackie Reardon Admitting Unavailable Jackie Reardon Attending Unavailable Peggy, Jack Attending Unavailable Gerber, Zachary R Primary Care Unavailable Peggy, Jack Admitting Unavailable Peggy, Jack Attending Unavailable Peggy, Jack Admitting Unavailable Brown, Zachary R Primary Care Unavailable Peggy, Jack Attending Unavailable Peggy, Jack Admitting Unavailable Brown, Zachary R Primary Care Unavailable Peggy, Jack Admitting Unavailable Brown, Zachary R Primary Care Unavailable Peggy, Jack Attending Unavailable Peggy, Jack Admitting Unavailable Brown, Zachary R Primary Care Unavailable Peggy, Jack Attending Unavailable Peggy, Jack Admitting Unavailable Brown, Zachary R Primary Care Unavailable Peggy, Jack Attending Unavailable Gerber, Zachary R Primary Care Unavailable Peggy, Jack Admitting Unavailable Peggy, Jack Attending Unavailable Peggy, Jack Admitting Unavailable Peggy, Jack Attending Unavailable GUADALUPE PERES Attending Unavailable PEGGY, JACK R Referring Unavailable PEGGY, JACK R Referring Unavailable Alberto Mayes MD Primary Care Provider PEGGY, JACK R Referring Unavailable PEGGY, JACK Referring Unavailable PEGGY, JACK Attending Unavailable PEGGY, JACK Attending Unavailable JAYLA ART Attending Unavailable PEGGY, JACK Attending Unavailable PEGGY, JACK Attending Unavailable PEGGY, JACK Attending Unavailable KAELYNJAYLA WINN Attending Unavailable PEGGY, JACK Attending Unavailable Allergies Allergy Classification Reported Allergen(s) Allergy Type Date of Onset Reaction(s) Facility (20 sources) Cephalexin; Translations: [CEPHALEXIN] Drug Allergy 9 Nausea And Vomiting [place] (15 sources) predniSONE; Translations: [PREDNISONE] Drug Allergy 9 Nausea And Vom[place] (20 sources) Ciprofloxacin; Translations: [CIPROFLOXACIN] Drug Allergy 9 Vomiting [facility] (20 sources) Prednisone Propensity to adverse reactions 9 Nausea And Vomiting [facility] (1 source) Cephalexin Drug Allergy 0 [facility] Repository (1 source) predniSONE Drug Allergy 0 [facility] Repository Medications Current Medications Medication Drug Class(es) Dates Sig (Normalized) Sig (Original) aspirin 81 mg oral tablet (20 sources) Platelet Aggregation Inhibitor, Nonsteroidal Anti-inflammatory Drug Start: 10-14-2023 aspirin 81 MG oral suspension 10/14/2023 Active aspirin 81 mg ch ewable tablet Chew 1 tablet (81 mg total) and swallow in the morning. Active bisacodyl 10 mg rectal suppository (2 sources) Stimulant Laxative Start: 10-08-2024 End: 10-12-2024 bisacodyl (Dulcolax) 10 MG suppository Indications: Other constipation Insert 1 suppository (10 mg) into the rectum Daily for 4 days 4 suppository 10/08/2024 10/12/2024 Active docusate sodium 100 mg oral capsule (20 sources) End: 01-16-2025 take 1 capsule by mouth once daily docusate sodium (Colace) 100 MG capsule Take 100 mg by mouth Daily 01/16/2025 Discontinued Doxylamine Succinate, Sleep, (UNISOM PO) (20 sources) End: 01-16-2025 Doxylamine Succinate, Sleep, (UNISOM PO) Take by mouth 01/16/2025 Discontinued Doxylamine Succi rom, Sleep, (UNISOM PO) Take by mouth Active ethinyl estradiol 0.03 mg / ferrous fumarate 75 mg / norethindrone 1.5 mg oral tablet (1 source) Estrogen take 1 tablet by mouth once daily, then take 1.5-30 tablets by mouth norethindrone-ethinyl estradiol-iron (AKIL FE 1.5/30) 1.5-30 MG-MCG tablet Take 1 tablet by mouth daily 0 Active ibuprofen 600 mg oral tablet (10 sources) Nonsteroidal Anti-inflammatory Drug Start: 2019 take 1 tablet by mouth every six hours as needed for pain omeprazole 40 mg delayed release oral capsule (20 sources) Proton Pump Inhibitor Start: 2024 End: 2024 take 1 capsule by mouth before mealtime omeprazole (PriLOSEC) [address] capsule Indications: Gastroesophageal Reflux Disease , Heartburn Take 1 capsule (40 mg) by mouth in the morning. Take before meals. Do not crush or chew. 30 capsule 3 10/08/2024 01/16/2025 Discontinued Start: 09-19-2024 End: 10-19-2024 take 1 capsule by mouth before mealtime omeprazole (PriLOSEC) [address] capsule Indications: Gastroesophageal Reflux Disease , Heartburn Take 1 capsule (20 mg) by mouth in the morning. Take before meals. Do not crush or chew. 30 capsule 3 09/19/2024 10/08/2024 Discontinued (Reorder) ondansetron 4 mg oral tablet (20 sources) Serotonin-3 Receptor Antagonist Start: 11-20-2024 take 1 tablet by mouth every six hours as needed for nausea and nausea, then take 1 tablet by mouth every six hours as needed for nausea and nausea ondansetron (Zofran) 4 MG tablet Indications: Gastroesophageal reflux in ([facility]) , Nausea and vomiting during ([facility]) Take 1 tablet (4 mg) by mouth every 6 (six) hours if needed for nausea or vomiting for up to 30 doses Take 1 tablet by mouth every 6 hours as needed for nausea. 30 tablet 3 11/20/2024 Active Start: 09-19-2024 take 1 tablet by radha th every six hours as needed for nausea and nausea, then take 1 tablet by mouth every six hours as needed for nausea and nausea ondansetron (Zofran) 4 MG tablet Indications: Gastroesophageal reflux in ([facility]-H[facility]) , Nausea and vomiting during ([facility]-H[facility]) Take 1 tablet (4 mg) by mouth every 6 (six) hours if needed for nausea or vomiting for up to 30 doses Take 1 tablet by mouth every 6 hours as needed for nausea. 30 tablet 3 09/19/2024 Active take 1 tablet by radha th every eight hours as needed for nausea and vomiting ondansetron (ZOFRAN) 4 mg tablet Take 1 tablet (4 mg total) by mouth every 8 (eight) hours as needed for nausea or vomiting. Active PNV 27-uqgj-zhxzejzrywqu-dha 29 mg iron-1 mg -350 mg comb pack,tablet DR,capsule DR (2 sources) take 1 tablet by mouth in the morning PNV 46-shgh-wwcuyfhbyxin-dha 29 mg iron-1 mg -350 mg comb pack,tablet DR,capsule DR Take 1 tablet by mouth in the morning. Active polysaccharide iron complex 391 mg oral capsule (5 sources) Start: End: take 1 capsule by mouth once daily iron polysaccharides (ProFe) 391.3 (180 Fe) MG capsule Indications: Second trimester ([facility]) Take 1 capsule (391.3 mg) by mouth Daily 30 capsule 6 01/07/2025 01/16/2025 Discontinued predniSONE 20 mg oral tablet (1 source) Start: 023 take 1 tablet by mouth every twelve hours prednisone 20 MG 1 tablet Orally BID for 5 Mar, Active Vit w/Fe-Methylfol- FA (PNV PO) (20 sources) Vit w/F d-Ogvyibjsn-QB (PNV PO) Active Progesterone 200 MG supposit ory (4 sources) Start: End: Progesterone 200 MG supposit ory Indications: History of miscarriage Insert 200 mg into the vagina in the morning and 200 mg before bedtime. Do all this for 15 days. 30 suppository 3 09/05/2024 09/20/2024 Active Start: 02-14-2024 End: 03-15-2024 Progesterone 200 MG supposit ory Indications: History [...] gestation 30 suppository 3 2024 03/07/2024 Active pyridoxine hydrochloride 25 mg oral tablet (20 sources) End: 01-16-2025 take 1 tablet by mouth once daily pyridoxine (Vitamin B-6) 25 MG tablet Take 25 mg by mouth Daily 01/16/2025 Discontinued traMADol hydrochloride 50 mg oral tablet (10 sources) Opioid Agonist Start: 11-20-2019 take 1 tablet by mouth every four to six hours as needed for pain Completed/Discontinued Medications Medication Drug Class(es) Dates Sig (Normalized) Sig (Original) acetaminophen 325 mg / HYDROcodone bitartrate 5 mg oral tablet (1 source) Opioid Agonist Start: 02-01-2019 End: 02-01-2019 HYDROcodone-acetami nophen (NORCO) 5-325 MG per tablet 1 tablet progesterone 200 mg oral capsule (1 source) Progesterone End: 11-12-2024 take 1 capsule by mouth in the morning progesterone (PROMETRIUM) 200 mg capsule Take 1 capsule (200 mg total) by mouth in the morning. 11/12/2024 Discontinued Problems Active Problems Problem Classification Problem Date Documented Da te Episodic/Chronic Benign neoplasm of uterus (2 sources) Leiomyoma of uterus, unspecified; Translations: [Leiomyoma of uterus, unspecified] Onset: Episodic Cardiac dysrhythmias (10 sources) Palpitations; Translations: [Tachycardia] 01-07-2025 Episodic Contraceptive and procreative management (4 sources) Patient encounter status; Translations: [Encounter for procreative management, unspecified] 04-10-2024 Episodic Female infertility (2 sources) Female infertility; Translations: [Female infertility, unspecified] 2024 Chronic Immunizations and screening for infectious disease (2 sources) Exposure to sexually transmissible disorder; Translations: [Contact with and (suspected) exposure to infections with a predominantly sexual mode of transmission] 11-05-2024 Episodic Menstrual disorders (2 sources) Missed period; Translations: [Irregular menstruation, unspecified] Onset: 09-19-2024 Chronic Other complications of (5 sources) Gastroesophageal reflux disease in ; Translations: [Diseases of the digestive system complicating , unspecified trimester] 09-19-2024 Episodic Other complications of (1 source) Vomiting of , unspecified; Translations: [Unspecified vomiting of , unspecified as to episode of care or not applicable] 09-19-2024 Episodic Other complications of (3 sources) Uterine fibroids affecting ; Translations: [Maternal care for benign tumor of corpus uteri, second trimester] 11-12-2024 Episodic Other complications of (2 sources) Maternal care for benign tumor of corpus uteri, second trimester; Translations: [Maternal care for benign tumor of corpus uteri, second trimester] Onset: Episodic Other endocrine disorders (2 sources) Disorder of endocrine system; Translations: [Endocrine disorder, unspecified] 04-10-2024 Episodic Other female genital disorders (2 sources) Other specified conditions associated with female genital organs and menstrual cycle; Translations: [Other specified conditions associated with female genital organs and menstrual cycle] Onset: Episodic Other female genital disorders (2 sources) Vaginal discharge; Translations: [Other specified noninflammatory disorders of vagina] 11-05-2024 Episodic Other gastrointestinal disorders (2 sources) Constipation; Translations: [Other constipation] 10-08-2024 Episodic Other gastrointestinal disorders (4 sources) Mass of uterine adnexa; Translations: [Other specified conditions associated with female genital organs and menstrual cycle] 11-12-2024 Episodic Other and delivery including normal (14 sources) ; Translations: [Encounter for supervision of normal , unspecified, unspecified trimester] 09-19-2024 Episodic Other screening for suspected conditions (not mental disorders or infectious disease) (1 source) Encounter for other specified screening; Translations: [Encounter for other specified screening] Onset: Episodic Other skin disorders (4 sources) Localized swelling of right lower limb; Translations: [Localized swelling, mass and lump, right lower limb] 11-12-2024 Episodic Other skin disorders (2 sources) Localized swelling, mass and lump, right lower limb; Translations: [Localized swelling, mass and lump, right lower limb] Onset: Episodic Other upper respiratory infections (2 sources) Acute pharyngitis, unspecified; Translations: [Acute upper respiratory infection, unspecified] Episodic Residual codes; unclassified (2 sources) H/O: miscarriage; Translations: [Personal history of other complications of , childbirth and the puerperium] 2024 Episodic Residual codes; unclassified (2 sources) Gestation period, 11 weeks; Translations: [11 weeks gestation of ] 10-08-2024 Episodic Residual codes; unclassified (2 sources) Gestation period, 16 weeks; Translations: [16 weeks gestation of ] 11-12-2024 Episodic Residual codes; unclassified (1 source) 16 weeks gestation of ; Translations: [16 weeks gestation of ] Onset: Episodic Residual codes; unclassified (2 sources) Gestation period, 15 weeks; Translations: [15 weeks gestation of ] 11-05-2024 Episodic Residual codes; unclassified (2 sources) Gestation period, 19 weeks; Translations: [19 weeks gestation of ] 12-03-2024 Episodic Residual codes; unclassified (4 sources) Gestation period, 23 weeks; Translations: [23 weeks gestation of ] 12-31-2024 Episodic Residual codes; unclassified (2 sources) Gestation period, 25 weeks; Translations: [25 weeks gestation of ] 01-16-2025 Episodic Syncope (2 sources) Syncope; Translations: [Syncope and collapse] 01-16-2025 Episodic Unclassified (1 source) Enlarged & Heterogeneous Bilateral Ovaries Onset: Past or Other Problems Problem Classification Problem Date Documented Date Episodic/Chronic Abdominal pain (1 source) Right lower quadrant pain; Translations: [Abdominal pain, right lower quadrant] Episodic Other complications of (1 source) Supervision of with other poor reproductive or obstetric history, unspecified trimester; Translations: [Supervision of with other poor reproductive or obstetric history, unspecified trimester] Onset: 12-22-2023 Episodic Other female genital disorders (1 source) H/O gynecological disorder; Translations: [History of ovarian cyst] Episodic Residual codes; unclassified (1 source) Personal history of other complications of , childbirth and the puerperium; Translations: [Personal history of other complications of , childbirth and the puerperium] Onset: 12-02-2023 Episodic Results Test Name Value Interpretation Reference Range Facility Urinalysis macro (dipstick) panel (U)on 01-16-2025 Bilirubin, UA Negative Negative - 4(70) +++ mg/dL [facility] Blood, UA Positive Negative - 50 Clarke/mcL [facility] Comment on above: 3+ Clarity, UA Clear [facility] re Color, UA Yellow [facility] Glucose, UA Negative Negative - 1999(110) ++++ mg/dL [facility] Interpretation and review of laboratory results Abnormal [facility] Ketones, UA Negative Negative - 160(16) ++++ mg/dL [facility] Leukocytes, UA Positive Negative - 500+++ Kamaljit/mcL [facility] Comment on above: 2+ Nitrite, UA Negative Negative - Positive [facility] pH, UA 6 5 - 9 [facility] Protein, UA Positive Negative - 1999(20) ++++ mg/dL [facility] Spec Grav, UA 1.02 1 - 1.03 [facility] Urobilinogen, UA 1.0 0.2 - 12 mg/dL [facility] Ur[facility] macro (dipstick) panel (U)on 01-07-2025 Bilirubin, UA Negative Negative - 4(70) +++ mg/dL [facility] Blood, UA Negative Negative - 50 Clarke/mcL [facility] Clarity, UA Clear [facility] Color, UA Yellow [facility] Glucose, UA Negative Negative - 1999(110) ++++ mg/dL [facility] Interpretation and review of laboratory results Abnormal [facility] Ketones, UA Negative Negative - 160(16) ++++ mg/dL [facility] Leukocytes, UA Positive Negative - 500+++ Kamaljit/mcL [facility] Comment on above: 3+ Nitrite, UA Negative Negative - Positive [facility] pH, UA 6.5 5 - 9 [facility] Protein, UA Negative Negative - 1999(20) ++++ mg/dL [facility] Spec Grav, UA 1.01 1 - 1.03 [facility] Urobilinogen, UA 0.2 0.2 - 12 mg/dL [facility] Urinalysis macro (dipstick) panel (U)on 12-31-2024 Bilirubin, UA Negative Negative - 4(70) +++ mg/dL [facility] Blood, UA Negative Negative - 50 Clarke/mcL [facility] Clarity, UA Clear [facility] Color, UA Yellow [facility] Glucose, UA Negative Negative - 1999(110) ++++ mg/dL [facility] Interpretation and review of laboratory results Abnormal [facility] Ketones, UA Negative Negative - 160(16) ++++ mg/dL [facility] Leukocytes, UA Negative Negative - 500+++ Kamaljit/mcL [facility] Nitrite, UA Negative Negative - Positive [facility] pH, UA 6 5 - 9 [facility] Protein, UA Negative Negative - 1999(20) ++++ mg/dL [facility] Spec Grav, UA 1.01 1 - 1.03 [facility] care Urobilinogen, UA 1.0 0.2 - 12 mg/dL [facility] Urinalysis macro (dipstick) panel (U)on 12-03-2024 Bilirubin, UA Negative Negative - 4(70) +++ mg/dL [facility] Blood, UA Negative Negative - 50 Clarke/mcL [facility] Clarity, UA Clear [facility] Color, UA Yellow [facility] Glucose, UA Negative Negative - 1999(110) ++++ mg/dL [facility] Interpretation and review of laboratory results Abnormal [facility] Ketones, UA Negative Negative - 160(16) ++++ mg/dL [facility] Leukocytes, UA Positive Negative - 500+++ Kamaljit/mcL [facility] Comment on above: Small Nitrite, UA Negative Negative - Positive [facility] pH, UA 7 5 - 9 [facility] Protein, UA Negative Negative - 1999(20) ++++ mg/dL [facility] Spec Grav, UA 1.01 1 - 1.03 [facility] Urobilinogen, UA 1.0 0.2 - 12 mg/dL [facility] Xigen e Free Cell DNA (Non-Pro Medica Send Out)on 11-12-2024 [facility] PATHOLOGY REQUEST FOR LAB CO RPon 11-12-2024 PATHOLOGY REQUEST FOR LAB GIA [facility] Comment on above: See report. Scanned copy available in EMR. SKIN TAG [facility]HEL[facility]Y [facility] IGP,APTIMA HPV,AGE GDLNon AGE GDLN ACOG TESTING Note . [facility] Comment on above: TESTS RESULT FLAG UN ITS REF RANGE LAB Clinician Provided Cytology Information Source.............Cervix No. of containers..01 ThinPrep Vial Age Algo ACOG Nery... FLAG LEGEND: L-Low Normal,H-High Normal,LL-Alert Low,HH-Alert High <-Panic Low,>-Panic High,A-Abnormal,AA-Critical Abnormal Performed at: 01 [facility] [address] [place] [address] Gypsy Mtz MD, IGP, RFX APTIMA HPV ASCU Note . [facility] Comment on above: TESTS RESULT FLAG UN ITS REF RANGE LAB DIAGNOSIS: 02 NEGATIVE FOR INTRAEPITHELIAL LESION OR MALIGNANCY. THIS SPECIMEN WAS RESCREENED PART OF OUR LOAN INSPECTOR PROGRAM. Specimen adequacy: 02 Satisfactory for evaluation. Endocervical and/or squamous metaplastic cells (endocervical component) are present. Performed by: 02 Felicity Rosen, Videographer ([facility]) QC reviewed by: 02 Esme Mahoney, Videographer ([facility]) . 02 Note: Note 02 The [...] <-Panic Low,>-Panic High,A-Abnormal,AA-Critical Abnormal Performed at: [address] [facility] [address] [place] [address] Gypsy Mtz MD, Performed at: =G - [facility] [address], [place] [id number] Border Patrol Agent: Gypsy Mtz MD, Phone: [phone] Performed at: [facility] [address] [id number] [employer] Patrol Agent: Gypsy Mtz MD, Phone: [phone] SPATULA-ALONE CERVIX [facility] RECURRENT VAGINITIS (HTRX)on 11-06-2024 ATOPOBIUM VAGINAE 0 [facility] ATOPOBIUM VAGINAE Not detected [facility] BVAB 2,3 (BACTERIAL VAGINOSIS ASSOCIATED BACTERIA 2, 3); MOBILUNCUS SPP 0 [facility] BVAB 2,3 (BACTERIAL VAGINOSIS ASSOCIATED BACTERIA 2, 3); MOBILUNCUS SPP Not detected [facility] LINDA ALBICANS, PARAPSILOSIS, TROPICALIS 0 [facility] LINDA ALBICANS, PARAPSILOSIS, TROPICALIS Not detected [facility] LINDA GLABRATA 0 [facility] LINDA GLABRATA Not detected [facility] LINDA KRUSEI 0 [facility]alt [facility] LINDA KRUSEI Not detected [facility] CHLAMYDIA TRACHOMATIS 0 [facility] CHLAMYDIA TRACHOMATIS Not detected [facility] GARDNERELLA VAGINALIS 0 [facility] GARDNERELLA VAGINALIS Not detected [facility] MEGASPHAERA (TYPES 1, 2) 0 [facility] MEGASPHAERA (TYPES 1, 2) Not detected [facility] MYCOPLASMA GENITALIUM 0 [facility] MYCOPLASMA GENITALIUM Not detected [facility] Healthcare NEISSERIA GONORRHOEAE 0 [facility] NEISSERIA GONORRHOEAE Not detected [facility] TRICHOMONAS VAGINALIS 0 [facility] TRICHOMONAS VAGINALIS Not detected [facility] Pathology Request for Lab Co rpon 11-05-2024 Pathology Request for Lab Gia Normal [facility] Comment on above: Order Comment: SKIN TAG Result Comment: See report. Scanned copy available in EMR. PERFORMED BY: [address] [place] [address] PATHOLOGIST COAL CHEMIST JOSUÉ VALENZUELA M.D. Performed By: #### P JOO #### [facility] , Urinalysis macro (dipstick) panel (U)on 11-05-2024 Bilirubin, UA Negative Negative - 4(70) +++ mg/dL [facility] Blood, UA Negative Negative - 50 Clarke/mcL [facility] Clarity, UA Clear [facility] Color, UA Yellow [facility] Glucose, UA Negative Negative - 2000(110) ++++ mg/dL [facility] Interpretation and review of laboratory results Normal [facility] Ketones, UA Negative Negative - 160(16) ++++ mg/dL [facility] Leukocytes, UA Negative Negative - 500+++ Kamaljit/mcL [facility] Nitrite, UA Negative Negative - Positive [facility] pH, UA 5.5 5 - 9 [facility] Protein, UA Negative Negative - 1999(20) ++++ mg/dL [facility] Spec Grav, UA 1.02 1 - 1.03 [facility] Urobilinogen, UA 1.0 0.2 - 12 mg/dL [facility] Urinalysis macro (dipstick) panel (U)on 10-08-2024 Bilirubin, UA Negative Negative - 4(70) +++ mg/dL [facility] Blood, UA Negative Negative - 50 Clarke/mcL [facility] Clarity, UA Clear [facility] re Color, UA Yellow [facility] e Glucose, UA Negative Negative - 1999(110) ++++ mg/dL [facility] Interpretation and review of laboratory results Abnormal [facility] re Ketones, UA Negative Negative - 160(16) ++++ mg/dL [facility] Leukocytes, UA Trace Negative - 500+++ Kamaljit/mcL [facility] Nitrite, UA Negative Negative - Positive [facility] pH, UA 6 5 - 9 [facility] Protein, UA Negative Negative - 1999(20) ++++ mg/dL [facility] Spec Grav, UA 1.02 1 - 1.03 [facility] Urobilinogen, UA 0.2 0.2 - 12 mg/dL [facility] MLR HEMOGLOBIN A1Con 025 Glucose [Mass/Vol] 100 mg/dL [facility]care HbA1c (Bld) [Mass fraction] 5.1 % 4.5 - 6.2 % [facility] Comment on above: ADA RECOMMENDED LIMI T 4.0 - 6.0 ADA THERAPEUTIC TARGET < 7.0 ACTION SUGGESTED > 7.0 [facility] HCG ( test) Ql (U)o n 09-19-2024 Interpretation and review of laboratory results Abnormal [facility] re Preg Test, Ur Positive Negative [facility] US OB TRANSVAGINALon 025 US OB TRANSVAGINAL EXAM: US OB TRANSVAGINAL HISTORY: Dating/viability. LMP [...] bilateral ovaries with a 2.3 cm isoechoic left-sided lesion, possibly representing an endometrioma. 3. Right ovarian corpus luteal cyst. Interpreted by: Electronically signed by MARKIE CRAWFORD II, MD, PHD at 22-Sep-2024 08:21:31 PM [facility] Normal Not Available Comment on above: Order Comment: US OB TRANSVAGINAL No LMP recorded. Urinalysis macro (dipstick) panel (U)on 09-19-2024 Bilirubin, UA Negative Negative - 4(70) +++ mg/dL [facility] Blood, UA Negative Negative - 50 Clarke/mcL [facility] Clarity, UA Clear [facility] [employer] re Color, UA Yellow [facility] [employer] Glucose, UA Negative Negative - 1999(110) ++++ mg/dL [facility] Interpretation and review of laboratory results Normal [facility] [employer] re Ketones, UA Negative Negative - 160(16) ++++ mg/dL [facility] Leukocytes, UA Negative Negative - 500+++ Kamaljit/mcL [facility] Nitrite, UA Negative Negative - Positive [facility] pH, UA 7 5 - 9 [facility] [employer] e Protein, UA Negative Negative - 1999(20) ++++ mg/dL [facility] Spec Grav, UA 1.02 1 - 1.03 [facility] Urobilinogen, UA 0.2 0.2 - 12 mg/dL [facility] US OB TRANSVAGINALon 025 US OB TRANSVAGINAL EXAM: US OB TRANSVAGINAL HISTORY: Missed menses, history of miscarriage. COMPARISON: None available. TECHNIQUE: Two-dimensional transvaginal grayscale ultrasound imaging of the pelvis was performed. Color Doppler evaluation of the ovaries was also performed. FINDINGS: The uterus demonstrates a normal homogeneous echotexture. The cervix measures 4.2 cm in length and the cervical os is closed. The right ovary measures 4.4 x 2.3 x 3.1 cm and demonstrates a normal echotexture. There is normal color Doppler flow. There is a collapsing follicle visualized. The left ovary measures 5.1 x 2.9 x 4.0 cm and demonstrates a normal echotexture. There is normal color Doppler flow. There is a presumed corpus luteal cyst visualized. No fluid is present within the cul-de-sac. There is a single intrauterine gestational sac identified with a measurement of 0.6 cm, which is out of range to determine gestational age. No pole or yolk sac is visualized. There is no subchorionic hemorrhage visualized. IMPRESSION: 1. Single intrauterine gestational sac. No pole or yolk sac is identified on today's exam, likely due to early gestational age. Continue serial beta HCG measurements and a follow-up ultrasound are recommended. 2. Normal color Doppler evaluation of the bilateral ovaries. Interpreted by: Electronically signed by MARKIE CRAWFORD II, MD, PHD at 28-Aug-2024 11:25:24 PM [facility] Normal Not Available Comment on above: Order Comment: US OB TRANSVAGINAL No LMP recorded. TBH PREG QUANT HCGon 025 HCG QUANTITATIVE 2576 mIU/mL [facility] Comment on above: 5-50 0.2-1 WEEK 50-500 1-2 WEEKS 100-5,000 2-3 WEEKS 500-10,000 3-4 WEEKS 1,000-50,000 4-5 WEEKS 10,000-100,000 5-6 WEEKS 15,000-200,000 6-8 WEEKS 10,000-100,000 2-3 [facility]H PREG QUANT HCGon 025 HCG QUANTITATIVE 964 mIU/mL [facility] Comment on above: 5-50 0.2-1 WEEK 50-500 1-2 WEEKS 100-5,000 2-3 WEEKS 500-10,000 3-4 WEEKS 1,000-50,000 4-5 WEEKS 10,000-100,000 5-6 WEEKS 15,000-200,000 6-8 WEEKS 10,000-100,000 2-3 [facility] TBH PREG QUANT HCGon 025 HCG QUANTITATIVE 513 mIU/mL [facility] Comment on above: 5-50 0.2-1 WEEK 50-500 1-2 WEEKS 100-5,000 2-3 WEEKS 500-10,000 3-4 WEEKS 1,000-50,000 4-5 WEEKS 10,000-100,000 5-6 WEEKS 15,000-200,000 6-8 WEEKS 10,000-100,000 2-3 [facility] TBH PREG QUANT HCGon 025 HCG QUANTITATIVE 197 mIU/mL [facility] Comment on above: 5-50 0.2-1 WEEK 50-500 1-2 WEEKS 100-5,000 2-3 WEEKS 500-10,000 3-4 WEEKS 1,000-50,000 4-5 WEEKS 10,000-100,000 5-6 WEEKS 15,000-200,000 6-8 WEEKS 10,000-100,000 2-3 [facility] TBH PREG QUANT HCGon 025 HCG QUANTITATIVE 42 mIU/mL [facility] Comment on above: 5-50 0.2-1 WEEK 50-500 1-2 WEEKS 100-5,000 2-3 WEEKS 500-10,000 3-4 WEEKS 1,000-50,000 4-5 WEEKS 10,000-100,000 5-6 WEEKS 15,000-200,000 6-8 WEEKS 10,000-100,000 2-3 [facility] PREG QUANT HCGon 025 HCG QUANTITATIVE 7 mIU/mL [facility] Comment on above: 5-50 0.2-1 WEEK 50-500 1-2 WEEKS 100-5,000 2-3 WEEKS 500-10,000 3-4 WEEKS 1,000-50,000 4-5 WEEKS 10,000-100,000 5-6 WEEKS 15,000-200,000 6-8 WEEKS 10,000-100,000 2-3 [facility] ALL PROGESTERONEon 5 PROGESTERONE 26.8 ng/mL . [facility] are Comment on above: Follicular phase 0.1 - 0.9 Luteal phase 1.8 - 23.9 Ovulation phase 0.1 - 12.0 First trimester 11.0 - 44.3 Second trimester 25.4 - 83.3 Third trimester 58.7 - 214.0 Postmenopausal 0.0 - 0.1 Performed at: [facility] [employer] [id number] Border Patrol Agent: Jordin Rao PhD, Phone: [phone] [facility] Health[facility] e ALL PROGESTERONEon 4 PROGESTERONE 59.6 ng/mL . [facility] are Comment on above: Follicular phase 0.1 - 0.9 Luteal phase 1.8 - 23.9 Ovulation phase 0.1 - 12.0 First trimester 11.0 - 44.3 Second trimester 25.4 - 83.3 Third trimester 58.7 - 214.0 Postmenopausal 0.0 - 0.1 Performed at: [facility] [employer] [id number] [employer] Agent: Jordin Rao PhD, Phone: [phone] [facility] Health[facility] e TBH PREG QUANT HCGon 024 HCG QUANTITATIVE <1 mIU/mL [facility] Comment on above: 5-50 0.2-1 WEEK 50-500 1-2 WEEKS 100-5,000 2-3 WEEKS 500-10,000 3-4 WEEKS 1,000-50,000 4-5 WEEKS 10,000-100,000 5-6 WEEKS 15,000-200,000 6-8 WEEKS 10,000-100,000 2-3 [facility] ALL PROGESTERONEon 4 PROGESTERONE 17.9 ng/mL . [facility] are Comment on above: Follicular phase 0.1 - 0.9 Luteal phase 1.8 - 23.9 Ovulation phase 0.1 - 12.0 First trimester 11.0 - 44.3 Second trimester 25.4 - 83.3 Third trimester 58.7 - 214.0 Postmenopausal 0.0 - 0.1 Performed at: [facility] [address] [id number] Border Patrol Agent: Jordin Rao PhD, Phone: [phone] [facility] Health[facility] e MLR HEMOGLOBIN A1Con 024 Glucose [Mass/Vol] 88 mg/dL [facility] HbA1c (Bld) [Mass fraction] 4.7 % 4.5 - 6.2 % [facility] Comment on above: ADA RECOMMENDED LIMI T 4.0 - 6.0 ADA THERAPEUTIC TARGET < 7.0 ACTION SUGGESTED > 7.[address] [facility] [employer] Choriogonadotropin.beta subu nit [Units/volume] in Serum or PlasmaOrdered By: Jack Woods on 01-05-2024 HCG.beta subunit Qn 4.96 m[IU]/mL [facility] Comment on above: Approximate Approxim ate hCG Gestational Age Range (mIU/ml) (weeks)0.2-1 5-50 1-2 50-500 2-3 100-5,000 3-4 500-10,000 4-5 1,000-50,000 5-6 10,000-100,000 6-8 15,000-200,000 8-12 10,000-100,000 HCG,Quantitativeon 4 HCG,Quantitative 4.96 m[iU]/mL Normal [facility] Comment on above: Result Comment: Appr oximate Approximate hCG Gestational Age Range (mIU/ml) (weeks) 0.2-1 5-50 1-2 50-500 2-3 100-5,000 3-4 500-10,000 4-5 1,000-50,000 5-6 10,000-100,000 6-8 15,000-200,000 8-12 10,000-100,000 PERFORMED BY: [place] [address] PATHOLOGIST COAL CHEMIST TO ANAYA M.D. Performed By: #### H CGQNT #### [address] [address] [facility] Choriogonadotropin.beta subu nit [Units/volume] in Serum or PlasmaOrdered By: Jack Woods on 12-28-2023 HCG.beta subunit Qn 108.32 m[IU]/mL [facility] Comment on above: Approximate Approxim ate hCG Gestational Age Range (mIU/ml) (weeks)0.2-1 5-50 1-2 50-500 2-3 100-5,000 3-4 500-10,000 4-5 1,000-50,000 5-6 10,000-100,000 6-8 15,000-200,000 8-12 10,000-100,000 HCG,Quantitativeon 4 HCG,Quantitative 108.32 m[iU]/mL Normal [facility] Comment on above: Result Comment: Appr oximate Approximate hCG Gestational Age Range (mIU/ml) (weeks) 0.2-1 5-50 1-2 50-500 2-3 100-5,000 3-4 500-10,000 4-5 1,000-50,000 5-6 10,000-100,000 6-8 15,000-200,000 8-12 10,000-100,000 PERFORMED BY: [address] [address] PATHOLOGIST COAL CHEMIST TO ANAYA M.D. Performed By: #### H CGQNT #### [facility] [address] [place], [place] [id number] [facility] Choriogonadotropin.beta subu nit [Units/volume] in Serum or PlasmaOrdered By: Jack Woods on 12-22-2023 HCG.beta subunit Qn 1030.88 m[IU]/mL [facility] Comment on above: Approximate Approxim ate hCG Gestational Age Range (mIU/ml) (weeks)0.2-1 5-50 1-2 50-500 2-3 100-5,000 3-4 500-10,000 4-5 1,000-50,000 5-6 10,000-100,000 6-8 15,000-200,000 8-12 10,000-100,000 HCG,Quantitativeon HCG,Quantitative 1030.88 m[iU]/mL Normal Th e [facility] Comment on above: Result Comment: Appr oximate Approximate hCG Gestational Age Range (mIU/ml) (weeks) 0.2-1 5-50 1-2 50-500 2-3 100-5,000 3-4 500-10,000 4-5 1,000-50,000 5-6 10,000-100,000 6-8 15,000-200,000 8-12 10,000-100,000 PERFORMED BY: [place] [address] PATHOLOGIST COAL CHEMIST TO ANAYA M.D. Performed By: #### H CGQNT #### [facility] [address] [place] [address] Choriogonadotropin.beta subu nit [Units/volume] in Serum or PlasmaOrdered By: Jack Woods on 12-20-2023 HCG.beta subunit Qn 988.06 m[IU]/mL [facility] Comment on above: Approximate Approxim ate hCG Gestational Age Range (mIU/ml) (weeks)0.2-1 5-50 1-2 50-500 2-3 100-5,000 3-4 500-10,000 4-5 1,000-50,000 5-6 10,000-100,000 6-8 15,000-200,000 8-12 10,000-100,000 HCG,Quantitativeon 4 HCG,Quantitative 988.06 m[iU]/mL Normal [facility] Comment on above: Result Comment: Appr oximate Approximate hCG Gestational Age Range (mIU/ml) (weeks) 0.2-1 5-50 1-2 50-500 2-3 100-5,000 3-4 500-10,000 4-5 1,000-50,000 5-6 10,000-100,000 6-8 15,000-200,000 8-12 10,000-100,000 PERFORMED BY: [place] [address] PATHOLOGIST COAL CHEMIST TO ANAYA M.D. Performed By: #### H CGQNT #### [place] [id number] [facility] US OB transvaginalon 024 US OB transvaginal [facility] Main [place] [address] [place] [address] Ultrasound Report Signed Patient: Daphney Montesinos MR#: [id number] : 2000 Acct:[id number] Age/Sex: 23 / F ADM Date: 12/20/23 Loc: Room: Type: [facility] Attending Dr: Jack Woods DO Ordering Provider: Jack Woods Date of Service: 12/20/23 US/US OB <= 14 weeks fetus: N92.6 ([id number]) US/US OB transvaginal: N92.6 Copies to: Jack Woods FIRST TRIMESTER OB ULTRASOUND (transabdominal and [...] Lisa Rojas M.D.12/20/2023 5:46 PM Dictation Location: [place] [address] Tech: Deb Real Transcribed By: FLETCHER 12/20/23 174 Dictated By: Lisa Rojas MD 12/20/23 1739 Signed By: 12/20/23 174 Normal [facility] Choriogonadotropin.beta subu nit [Units/volume] in Serum or PlasmaOrdered By: Jack Woods on 12-09-2023 HCG.beta subunit Qn 295.86 m[IU]/mL [facility] Comment on above: Approximate Approxim ate hCG Gestational Age Range (mIU/ml) (weeks)0.2-1 5-50 1-2 50-500 2-3 100-5,000 3-4 500-10,000 4-5 1,000-50,000 5-6 10,000-100,000 6-8 15,000-200,000 8-12 10,000-100,000 HCG,Quantitativeon 4 HCG,Quantitative 295.86 m[iU]/mL Normal [facility] Comment on above: Result Comment: Appr oximate Approximate hCG Gestational Age Range (mIU/ml) (weeks) 0.2-1 5-50 1-2 50-500 2-3 100-5,000 3-4 500-10,000 4-5 1,000-50,000 5-6 10,000-100,000 6-8 15,000-200,000 8-12 10,000-100,000 PERFORMED BY: [place] [address] PATHOLOGIST COAL CHEMIST TO ANAYA M.D. Performed By: #### H CGQNT #### [address] [address] [facility] Choriogonadotropin.beta subu nit [Units/volume] in Serum or PlasmaOrdered By: Jack Woods on 12-07-2023 HCG.beta subunit Qn 135.80 m[IU]/mL [facility] Comment on above: Approximate Approxim ate hCG Gestational Age Range (mIU/ml) (weeks)0.2-1 5-50 1-2 50-500 2-3 100-5,000 3-4 500-10,000 4-5 1,000-50,000 5-6 10,000-100,000 6-8 15,000-200,000 8-12 10,000-100,000 HCG,Quantitativeon 4 HCG,Quantitative 135.80 m[iU]/mL Normal [facility] Comment on above: Result Comment: Appr oximate Approximate hCG Gestational Age Range (mIU/ml) (weeks) 0.2-1 5-50 1-2 50-500 2-3 100-5,000 3-4 500-10,000 4-5 1,000-50,000 5-6 10,000-100,000 6-8 15,000-200,000 8-12 10,000-100,000 PERFORMED BY: [address] [address] PATHOLOGIST COAL CHEMIST TO ANAYA M.D. Performed By: #### H CGQNT #### [facility] [address] [place], [place] [id number] [facility] Choriogonadotropin.beta subu nit [Units/volume] in Serum or PlasmaOrdered By: AMBAR Reardon on 12-05-2023 HCG.beta subunit Qn 69.85 m[IU]/mL [facility] Comment on above: Approximate Approxim ate hCG Gestational Age Range (mIU/ml) (weeks)0.2-1 5-50 1-2 50-500 2-3 100-5,000 3-4 500-10,000 4-5 1,000-50,000 5-6 10,000-100,000 6-8 15,000-200,000 8-12 10,000-100,000 HCG,Quantitativeon HCG,Quantitative 69.85 m[iU]/mL Normal [facility] Comment on above: Result Comment: Appr oximate Approximate hCG Gestational Age Range (mIU/ml) (weeks) 0.2-1 5-50 1-2 50-500 2-3 100-5,000 3-4 500-10,000 4-5 1,000-50,000 5-6 10,000-100,000 6-8 15,000-200,000 8-12 10,000-100,000 PERFORMED BY: [place] [address] PATHOLOGIST COAL CHEMIST TO ANAYA M.D. Performed By: #### H CGQNT #### [facility] [address] [place], [place] [id number] [facility] Progesteroneon 12-05-2023 Progesterone 26.5 ng/mL Normal . [facility] Comment on above: Result Comment: Foll icular phase 0.1 - 0.9 Luteal phase 1.8 - 23.9 Ovulation phase 0.1 - 12.0 First trimester 11.0 - 44.3 Second trimester 25.4 - 83.3 Third trimester 58.7 - 214.0 Postmenopausal 0.0 - 0.1 Performed at: [facility] [address] [id number] [employer] Patrol Agent: Jordin Rao PhD, Phone: [phone] PERFORMED BY: [place] [address] [place] [address] PATHOLOGIST COAL CHEMIST TO ANAYA M.D. Performed By: #### P JOO #### [facility] , Serum or plasma progesterone measurement (mass/volume)Ordered By: Jack Woods on 12-05-2023 Progesterone [Mass/Vol] 26.5 ng/mL . [facility] Comment on above: Follicular phase 0.1 - 0.9 Luteal phase 1.8 - 23.9 Ovulation phase 0.1 - 12.0 First trimester 11.0 - 44.3 Second trimester 25.4 - 83.3 Third trimester 58.7 - 214.0 Postmenopausal 0.0 - 0.1Performed at: [facility] [address] [id number] Director: Jordin Rao PhD, Phone: [phone] Choriogonadotropin.beta subu nit [Units/volume] in Serum or PlasmaOrdered By: AMBAR Reardon on 12-02-2023 HCG.beta subunit Qn 12.64 m[IU]/mL [facility] Comment on above: Approximate Approxim ate hCG Gestational Age Range (mIU/ml) (weeks)0.2-1 5-50 1-2 50-500 2-3 100-5,000 3-4 500-10,000 4-5 1,000-50,000 5-6 10,000-100,000 6-8 15,000-200,000 8-12 10,000-100,000 HCG,Quantitativeon 4 HCG,Quantitative 12.64 m[iU]/mL Normal [facility] Comment on above: Result Comment: Appr oximate Approximate hCG Gestational Age Range (mIU/ml) (weeks) 0.2-1 5-50 1-2 50-500 2-3 100-5,000 3-4 500-10,000 4-5 1,000-50,000 5-6 10,000-100,000 6-8 15,000-200,000 8-12 10,000-100,000 PERFORMED BY: [facility] [address] [facility] [place] [address] PATHOLOGIST COAL CHEMIST TO ANAYA M.D. Performed By: #### H CGQNT #### [facility] [address] [place] [address] [facility] Operative Reporton Operative Report [id number] #[id number] Normal [facility] Quick Strepon 03-21-2023 S. pyogenes Org specific cx Ql (Throat) Negative [employer] Other Quick Strep [employer] [facility] [employer] Other CBC Auto Differentialon 01-14 Basophils (Bld) [#/Vol] 0.00 10*3/uL [place] Basophils/100 WBC (Bld) 0 % 0 - 2 % [place] Differential Type YES [place] Eosinophils (Bld) [#/Vol] 0.20 10*3/uL [place] Eosinophils/100 WBC (Bld) 2 % 0 - 5 % [place] Erythrocyte distribution width (RBC) [Ratio] 12.6 % 12.1 - 15.2 % [place] Hematocrit (Bld) [Volume fraction] 39.8 % 36 - 46 % [place] Hemoglobin (Bld) [Mass/Vol] 13.8 g/dL 12 - 16 g/dL [place] Interpretation and review of laboratory results Abnormal [place] Lymphocytes (Bld) [#/Vol] 1.70 10*3/uL [place] Lymphocytes/100 WBC (Bld) 14 % Low 15 - 40 % [place] MCH (RBC) [Entitic mass] 31.5 pg 26 - 34 pg [place] MCHC (RBC) [Mass/Vol] 34.6 g/dL 31 - 37 g/dL [place] MCV (RBC) [Entitic vol] 91.2 fL 80 - 100 fL [place] Monocytes (Bld) [#/Vol] 0.60 10*3/uL [place] Monocytes/100 WBC (Bld) 5 % 4 - 8 % [place] Platelet mean volume (Bld) [Entitic vol] NOT REPORTED 6 - 12 fL [place] Platelets (Bld) [#/Vol] NOT REPORTED [place] Platelets (Bld) [#/Vol] 287 10*3/uL [place] RBC (Bld) [#/Vol] 4.37 10*6/uL 4 - 5.2 m/uL [place] RBC morphology finding Nom (Bld) NOT REPORTED [place] Segmented neutrophils/100 WBC (Bld) 79 % High 47 - 75 % [place] Segs Absolute 9.50 High [place] WBC (Bld) [#/Vol] 12.0 10*3/uL [place] WBC (Bld) [#/Vol] NOT REPORTED per 100 WBC [place] WBC Morphology NOT REPORTED [place], [place] CBC with Diffon 02-01-2019 Abs. Basophil 0.00 k/uL Normal 0.0-0.2 [facility] Comment on above: Performed By: #### C P, CDP #### [facility] [address] [place] [address] [employer] Patrol Agent: Jonathan Chisholm MD Abs.Neutrophil (Seg) 9.50 k/uL High 2.5-7.0 [facility] Comment on above: Performed By: #### C P, CDP #### [facility] [address] [place] [address] [employer] Agent: Jonathan Chisholm MD Auto Diff Performed YES Normal [facility] Comment on above: Performed By: #### C P, CDP #### [facility] [address] [place] [address] [employer] Agent: Jonathan Chisholm MD Basophils/100 WBC (Bld) 0 % Normal 0-2 [facility] Comment on above: Performed By: #### C P, CDP #### [facility] [address] [place] [address] [employer] Agent: Jonathan Chisholm MD Eosinophils (Bld) [#/Vol] 0.20 10*3/uL Normal 0.0-0.4 [facility] Comment on above: Performed By: #### C P, CDP #### [facility] [address] [place] [address] [employer] Patrol Agent: Jonathan Chisholm MD Eosinophils/100 WBC (Bld) 2 % Normal 0-5 [facility] Comment on above: Performed By: #### C P, CDP #### [facility] [address] [place] [address] [employer] Agent: Jonathan Chisholm MD Erythrocyte distribution width (RBC) [Ratio] 12.6 % Normal 12.1-15.2 [facility] Comment on above: Performed By: #### C P, CDP #### [facility] [address] [place] [address] [employer] Agent: Jonathan Chisholm MD Hematocrit (Bld) [Volume fraction] 39.8 % Normal 36-46 [facility] Comment on above: Performed By: #### C P, CDP #### [facility] [address] [place] [address] [employer] Patrol Agent: Jonathan Chisholm MD Hemoglobin (Bld) [Mass/Vol] 13.8 g/dL Normal 12.0-16.0 [facility] Comment on above: Performed By: #### C P, CDP #### [facility] [address] [place] [address] [employer] Agent: Jonathan Chisholm MD Lymphocytes (Bld) [#/Vol] 1.70 10*3/uL Normal 1.2-5.2 [facility] Comment on above: Performed By: #### C P, CDP #### [facility] [address] [place], [place] [id number] [employer] Agent: Jonathan Chisholm MD Lymphocytes/100 WBC (Bld) 14 % Low 15-40 [facility] Comment on above: Performed By: #### C P, CDP #### [facility] [address] [place], [place] [id number] [employer] Agent: Jonathan Chisholm MD MCH (RBC) [Entitic mass] 31.5 pg Normal 26-34 [facility] Comment on above: Performed By: #### C P, CDP #### [facility] [address] [place], [place] [id number] [employer] Agent: Jonathan Chisholm MD MCHC (RBC) [Mass/Vol] 34.6 g/dL Normal 31-37 [facility] Comment on above: Performed By: #### C P, CDP #### [facility] [address] [place], [place] [id number] [employer] Agent: Jonathan Chisholm MD MCV (RBC) [Entitic vol] 91.2 fL Normal 80-100 [facility] Comment on above: Performed By: #### C P, CDP #### [facility] [address] [place], [place] [id number] [employer] Agent: Jonathan Chisholm MD Monocytes (Bld) [#/Vol] 0.60 10*3/uL Normal 0.0-1.0 [facility] Comment on above: Performed By: #### C P, CDP #### [facility] [address] [place], [place] [id number] (602) [employer] Patrol Agent: Jonathan Chisholm MD Monocytes/100 WBC (Bld) 5 % Normal 4-8 [facility] Comment on above: Performed By: #### C P, CDP #### [facility] [address] [place], [place] [id number] [employer] Agent: Jonathan Chisholm MD Neutrophil (Seg) 79 % High 47-75 [facility] Comment on above: Performed By: #### C P, CDP #### [facility] [address] [place] [address] [employer] Agent: Jonathan Chisholm MD Platelets (Bld) [#/Vol] 287 10*3/uL Normal 140-450 [facility] Comment on above: Performed By: #### C P, CDP #### [facility] [address] [place] [address] [employer] Patrol Agent: Jonathan Chisholm MD RBC (Bld) [#/Vol] 4.37 10*6/uL Normal 4.0-5.2 [facility] Comment on above: Performed By: #### C P, CDP #### [facility] [address] [place] [address] [employer] Agent: Jonathan Chisholm MD WBC (Bld) [#/Vol] 12.0 10*3/uL Normal 4.5-13.5 [facility] Comment on above: Performed By: #### C P, CDP #### [facility] [address] [place] [address] [employer] Agent: Jonathan Chisholm MD Abs.Imm.Granulocyte NOT REPORTED Normal 0.00-0.30 [facility] Comment on above: Performed By: #### C P, CDP #### [facility] [address] [place] [address] [employer] Agent: Jonathan Chisholm MD Immature granulocytes (Bld) [#/Vol] NOT REPORTED Normal 0 [facility] Comment on above: Performed By: #### C P, CDP #### [facility] [address] [place] [address] [employer] Agent: Jonathan Chisholm MD NRBC Automated NOT REPORTED Normal [facility] Comment on above: Performed By: #### C P, CDP #### [facility] [address] [place] [address] [employer] Agent: Jonathan Chisholm MD Platelet mean volume (Bld) [Entitic vol] NOT REPORTED Normal 6.0-12.0 [facility] Comment on above: Performed By: #### C P, CDP #### [facility] [address] [place] [address] [employer] Agent: Jonathan Chisholm MD Platelets (Bld) [#/Vol] NOT REPORTED Normal [facility] Comment on above: Performed By: #### C P, CDP #### [facility] [address] [place] [address] [employer] Agent: Jonathan Chisholm MD RBC morphology finding Nom (Bld) NOT REPORTED Normal [facility] Comment on above: Performed By: #### C P, CDP #### [facility] [address] [place] [address] [employer] Agent: Jonathan Chisholm MD WBC Morphology NOT REPORTED Normal [facility] Comment on above: Performed By: #### C P, CDP #### [facility] [address] [place] [address] [employer] Agent: Jonathan Chisholm MD Comp Metabolic Profon 2018 (cont.) Normal [facility] Comment on above: Result Comment: Aver age GFR for 20-29 years old: 116 mL/min/1.73sq m Chronic Kidney Disease: <60 mL/min/1.73sq m Kidney failure: <15 mL/min/1.73sq m eGFR calculated using average adult body mass. Additional eGFR calculator available at: http://www.SiSaf.com/multiple_crcl_2012.htm Performed By: #### C P, CDP #### [facility] [address] [place] [address] Border Patrol Agent: Jonathan Chisholm MD Albumin [Mass/Vol] 4.1 g/dL Normal 3.5-5.2 [facility] Comment on above: Performed By: #### C P, CDP #### [facility] [address] [place], [place] [phone] Border Patrol Agent: Jonathan Chisholm MD Alkaline Phos 63 U/L Normal 35-104 [facility] Comment on above: Performed By: #### C P, CDP #### [facility] [address] [place], [place] [phone] Border Patrol Agent: Jonathan Chisholm MD ALT [Catalytic activity/Vol] 8 U/L Normal 5-33 [facility] Comment on above: Performed By: #### C P, CDP #### [facility] [address] [place], [place] [phone] Border Patrol Agent: Jonathan Chisholm MD Anion gap [Moles/Vol] 12 mmol/L Normal 9-17 [facility] Comment on above: Performed By: #### C P, CDP #### [facility] [address] [place], [place] [phone] Border Patrol Agent: Jonathan Chisholm MD AST [Catalytic activity/Vol] 13 U/L Normal <32 [facility] Comment on above: Performed By: #### C P, CDP #### [facility] [address] [place], [place] [phone] Border Patrol Agent: Jonathan Chisholm MD Bilirubin Ql (U) 0.40 mg/dL Normal 0.30-1.20 [facility] Comment on above: Performed By: #### C P, CDP #### [facility] [address] [place], [place] [phone] Border Patrol Agent: Jonathan Chisholm MD BUN/CRE Ratio 13 Normal 9-20 [facility] Comment on above: Performed By: #### C P, CDP #### [facility] [address] [place], [place] [phone] Border Patrol Agent: Jonathan Chisholm MD Calcium [Mass/Vol] 9.1 mg/dL Normal 8.6-10.4 [facility] Comment on above: Performed By: #### C P, CDP #### [facility] [address] [place], [place] [phone] Border Patrol Agent: Jonathan Chisholm MD Chloride [Moles/Vol] 103 mmol/L Normal 98-107 [facility] Comment on above: Performed By: #### C P, CDP #### [facility] [address] [place], [place] [phone] Border Patrol Agent: Jonathan Chisholm MD CO2 [Moles/Vol] 24 mmol/L Normal 20-[address] [facility] Comment on above: Performed By: #### C P, CDP #### [facility] [address] [place], [place] [phone] Border Patrol Agent: Jonathan Chisholm MD Creatinine [Mass/Vol] 0.61 mg/dL Normal 0.50-0.90 [facility] Comment on above: Performed By: #### C P, CDP #### [facility] [address] [place], [place] [phone] Border Patrol Agent: Jonathan Chisholm MD GFR, Amer >60 Normal >60 [facility] Comment on above: Performed By: #### C P, CDP #### [facility] [address] [place], [place] [phone] Border Patrol Agent: Jonathan Chisholm MD GFR,non Amer >60 Normal >60 [facility] Comment on above: Performed By: #### C P, CDP #### [facility] [address] [place], [place] [phone] Border Patrol Agent: Jonathan Chisholm MD Glucose [Mass/Vol] 94 mg/dL Normal 70-99 [facility] Comment on above: Performed By: #### C P, CDP #### [facility] [address] [place], [place] [phone] Border Patrol Agent: Jonathan Chisholm MD Potassium [Moles/Vol] 3.8 mmol/L Normal 3.7-5.3 [facility] Comment on above: Performed By: #### C P, CDP #### [facility] [address] [place] [address] Border Patrol Agent: Jonathan Chisholm MD Protein [Mass/Vol] 7.1 g/dL Normal 6.4-8.3 [facility] Comment on above: Performed By: #### C P, CDP #### [facility] [address] [place], [place] [phone] Border Patrol Agent: Jonathan Chisholm MD Sodium [Moles/Vol] 139 mmol/L Normal 135-144 [facility] Comment on above: Performed By: #### C P, CDP #### [facility] [address] [place], [place] [phone] Border Patrol Agent: Jonathan Chisholm MD Urea nitrogen [Mass/Vol] 8 mg/dL Normal 6-20 [facility] Comment on above: Performed By: #### C P, CDP #### [facility] [address] [place], [place] [phone] Border Patrol Agent: Jonathan Chisholm MD Albumin/Globulin [Mass ratio] NOT REPORTED Normal 1.0-2.5 [facility] Comment on above: Performed By: #### C P, CDP #### [facility] [address] [place] [address] Border Patrol Agent: Jonathan Chisholm MD Staging: NOT REPORTED Normal [facility] Comment on above: Performed By: #### C P, CDP #### [facility] [address] [place] [address] Border Patrol Agent: Jonathan Chisholm MD Comprehensive Metabolic Pane markus 02-01-2019 Albumin [Mass/Vol] 4.1 g/dL 3.5 - 5.2 g/dL [facility] Albumin/Globulin [Mass ratio] NOT REPORTED [place] ALP [Catalytic activity/Vol] 63 U/L 35 - 104 U/L [place] ALT [Catalytic activity/Vol] 8 U/L 5 - 33 U/L [place] Anion gap [Moles/Vol] 12 mmol/L 9 - 17 mmol/L [place] AST [Catalytic activity/Vol] 13 U/L <32 [place] Bilirubin Ql (U) 0.40 mg/dL 0.3 - 1.2 mg/dL [place] Bun/Cre Ratio 13 [place] Calcium [Mass/Vol] 9.1 mg/dL 8.6 - 10. 4 mg/dL [place] Chloride [Moles/Vol] 103 mmol/L 98 - 107 mmol/L [place] CO2 [Moles/Vol] 24 mmol/L 20 - 31 mmol/L [place] Creatinine [Mass/Vol] 0.61 mg/dL 0.5 - 0.9 mg/dL [place] GFR >60 >60 mL/min [place] GFR Non- >60 >60 mL/min [place] GFR/1.73 sq M predicted among non-blacks MDRD (S/P/Bld) [Vol rate/Area] NOT REPORTED [place] GFR/1.73 sq M predicted among non-blacks MDRD (S/P/Bld) [Vol rate/Area] [place] Comment on above: Average GFR for 20-2 9 years old: 116 mL/min/1.73sq m Chronic Kidney Disease: <60 mL/min/1.73sq m Kidney failure: <15 mL/min/1.73sq m eGFR calculated using average adult body mass. Additional eGFR calculator available at: http://www.SiSaf.[employer]/multiple_crcl_2012.htm Glucose [Mass/Vol] 94 mg/dL 70 - 99 mg/dL [place] Potassium [Moles/Vol] 3.8 mmol/L 3.7 - 5.3 mmol/L [place] Protein [Mass/Vol] 7.1 g/dL 6.4 - 8.3 g/dL [place] Sodium [Moles/Vol] 139 mmol/L 135 - 144 mmol/L [place] Urea nitrogen [Mass/Vol] 8 mg/dL 6 - 20 mg/dL [place] HCG, ,Urineon 02-01 Beta HCG ( test) Ql (U) Negative Normal NEG [facility] Comment on above: Performed By: #### U MICAO, UHCG, UA #### [facility] [address] [place] [address] Border Patrol Agent: Jonathan Chisholm MD Microscopic Urinalysison Amorphous, UA NOT REPORTED None [place] Bacteria, UA 3+ Abnormal None [place] Casts UA NOT REPORTED /LPF [place] Crystals UA NOT REPORTED None /HPF [place] Epithelial Cells UA 20 TO 50 /HPF [place] Interpretation and review of laboratory results Abnormal [place] Mucus, UA 2+ Abnormal None [place] Other Observations UA NOT REPORTED NOT REQ. [place] RBC (U) [#/Vol] 2 TO 5 [place] Renal Epithelial, Urine NOT REPORTED 0 /HPF [place] Trichomonas, UA NOT REPORTED None [place] WBC, UA 2 TO 5 0 /HPF [place] Yeast, UA NOT REPORTED None [place] - [place] Otheron 02-01-2019 Immature granulocytes (Bld) [#/Vol] NOT REPORTED [place] , Urineon 9 Beta HCG ( test) Ql (U) Negative NEGATIVE [place] Urinalysison 02-01-2019 Bilirubin Urine Negative NEGATIVE [place] Color, UA YELLOW YELLOW [place] Glucose, Ur Negative NEGATIVE [place] Interpretation and review of laboratory results Abnormal [place] Ketones Ql (U) TRACE Abnormal NEGATIVE [place] Leukocyte esterase Test strip Ql (U) Negative NEGATIVE [place] Nitrite, Urine Negative NEGATIVE [place] pH, UA 6.0 [place] Protein (U) [Mass/Vol] 1+ Abnormal NEGATIVE [place] Specific [place], UA 1.020 [place] Turbidity UA CLEAR CLEAR [place] Urinalysis Comments [place] Urine Hgb 3+ Abnormal NEGATIVE [place] Urobilinogen, Urine Normal Normal [place] Urinalysis, Routineon 2018 Acetoacetic Acid,Ur TRACE Abnormal NEG [facility] Comment on above: Performed By: #### U MICAO, [facility], UA #### [facility] [address] [place] [address] Border Patrol Agent: Jonathan Chisholm MD Bilirubin, SemiQt,Ur Negative Normal [facility] Comment on above: Performed By: #### U MICAO, [facility], UA #### [facility] [address] [place], [place] [phone] Border Patrol Agent: Jonathan Chisholm MD Color (U) YELLOW Normal [facility] Comment on above: Performed By: #### U MICAO, [facility], UA #### [facility] [address] [place] [address] Border Patrol Agent: Jonathan Chisholm MD Comment Normal [facility] Comment on above: Performed By: #### U MICAO, [facility], UA #### [facility] [address] [place] [address] Border Patrol Agent: Jonathan Chisholm MD Glucose Ql (U) Negative Normal NEG [facility] Comment on above: Performed By: #### U MICAO, [facility], UA #### [facility] [address] [place], [place] [phone] Border Patrol Agent: Jonathan Chisholm MD Hemoglobin, Ur 3+ Abnormal NEG [facility] Comment on above: Performed By: #### U MICAO, [facility], UA #### [facility] [address] [place] [address] Border Patrol Agent: Jonathan Chisholm MD Leukocyte esterase Test strip Ql (U) Negative Normal NEG [facility] Comment on above: Performed By: #### U MICAO, [facility], UA #### [facility] [address] [place] [address] Border Patrol Agent: Jonathan Chisholm MD Nitrite,Ur Negative Normal NEG [facility] Comment on above: Performed By: #### U MICAO, [facility], UA #### [facility] [address] [place] [address] Border Patrol Agent: Jonathan Chisholm MD pH (U) 6.0 [pH] Normal 5.0-8.0 [facility] Comment on above: Performed By: #### U MICAO, [facility], UA #### [facility] [address] [place] [address] Border Patrol Agent: Jonathan Chisholm MD Protein Ql (U) 1+ Abnormal NEG [facility] Comment on above: Performed By: #### U MICAO, [facility], UA #### [facility] [address] [place] [address] Border Patrol Agent: Jonathan Chisholm MD Specific gravity (U) [Rel density] 1.020 Normal 1.005-1.030 [facility] Comment on above: Performed By: #### U MICAO, [facility], UA #### [facility] [address] [place] [address] Border Patrol Agent: Jonathan Chisholm MD Turbidity CLEAR Normal CLEAR [facility] Comment on above: Performed By: #### U MICAO, [facility], UA #### [facility] [address] [place], [place] [phone] Border Patrol Agent: Jonathan Chisholm MD Urobilinogen,Ur Normal Normal NORM [facility] Comment on above: Performed By: #### U PREMA [facility], UA #### [facility] [address] [place] [address] Border Patrol Agent: Jonathan Chisholm MD Urinalysis,Microon 9 ----- Normal [facility] Comment on above: Performed By: #### U PREMA [facility], UA #### [facility] [address] [place] [phone] Border Patrol Agent: Jonathan Chisholm MD Bacteria LM.HPF (Urine sed) [#/Area] 3+ Abnormal NONE [facility] Comment on above: Performed By: #### [facility] #### [facility] [address] [place] [address] Border Patrol Agent: Jonathan Chisholm MD Epithelial cells LM.HPF (Urine sed) [#/Area] 20 TO 50 Normal [facility] Comment on above: Performed By: #### U PREMA [facility], UA #### [facility] [address] [place], [place] [phone] Border Patrol Agent: Jonathan Chisholm MD Mucus Strands 2+ Abnormal NONE [facility] Comment on above: Performed By: #### U PREMA [facility], UA #### [facility] [address] [place], [place] [phone] Border Patrol Agent: Jonathan Chisholm MD RBC (U) [#/Vol] 2 TO 5 Normal 0-[address] [facility] Comment on above: Performed By: #### U [facility] #### [facility] [address] [place], [place] [phone] Border Patrol Agent: Jonathan Chisholm MD WBC (U) [#/Vol] 2 TO 5 Normal [address] [facility] Comment on above: Performed By: #### U PREMA [facility], UA #### [facility] [address] [place] [address] Border Patrol Agent: Jonathan Chisholm MD Amorphous sediment LM Ql (Urine sed) NOT REPORTED Normal NONE [facility] Comment on above: Performed By: #### U JAZMINEO, [facility], UA #### [facility] [address] [place] [address] Border Patrol Agent: Jonathan Chisholm MD Casts LM.LPF (Urine sed) [#/Area] NOT REPORTED Normal [facility] Comment on above: Performed By: #### U [facility], [facility], UA #### [facility] [address] [place] [address] Border Patrol Agent: Jonathan Chisholm MD Crystals LM Nom (Urine sed) NOT REPORTED Normal NONE [facility] Comment on above: Performed By: #### U JAZMINE, [facility], UA #### [facility] [address] [place] [address] Border Patrol Agent: Jonathan Chisholm MD Epithelial, Renal NOT REPORTED Normal 0 [facility] Comment on above: Performed By: #### U JAZMINE, [facility], UA #### [facility] [address] [place] [address] Border Patrol Agent: Jonathan Chisholm MD Other Observations NOT REPORTED Normal NREQ [facility] Comment on above: Performed By: #### U MICAO, [facility], UA #### [facility] [address] [place] [address] Border Patrol Agent: Jonathan Chisholm MD Trichomonas NOT REPORTED Normal NONE [facility] Comment on above: Performed By: #### U MICAO, [facility], UA #### [facility] [address] [place] [address] Border Patrol Agent: Jonathan Chisholm MD Yeast LM Ql (Urine sed) NOT REPORTED Normal NONE [facility] Comment on above: Performed By: #### U JAZMINEO, [facility], UA #### [facility] [address] [place] [address] Border Patrol Agent: Jonathan Chisholm MD Vital Signs Date Time Vital Sign Value Performing Clinician Facility 01-16-2025 09:38-0400 Body mass index (BMI) [Ratio] 29.67 kg/m2 Jack Peggy DO Work Phone: [facility] 01-16-2025 09:38-0400 Body weight 83.37 kg Jack Peggy DO Work Phone: [facility] 01-16-2025 09:38-0400 Diastolic blood pressure 78 mm[Hg] Jack Peggy DO Work Phone: [facility] 01-16-2025 09:38-0400 Systolic blood pressure 120 mm[Hg] Jack Peggy DO Work Phone: [facility] 12-31-2024 14:30-0400 Body mass index (BMI) [Ratio] 29.83 kg/m2 Jack Peggy DO Work Phone: [facility] 12-31-2024 14:30-0400 Body weight 83.83 kg Jack Peggy DO Work Phone: [facility] 12-31-2024 14:30-0400 Diastolic blood pressure 62 mm[Hg] Jack Peggy DO Work Phone: [facility] 12-31-2024 14:30-0400 Systolic blood pressure 112 mm[Hg] Jack Pgegy DO Work Phone: [facility] 12-03-2024 13:26-0400 Body mass index (BMI) [Ratio] 28.29 kg/m2 Jayla DA SILVA Work Phone: [facility] 12-03-2024 13:26-0400 Body weight 79.49 kg Jayla DA SILVA Work Phone: [facility] 12-03-2024 13:26-0400 Diastolic blood pressure 78 mm[Hg] Jayla DA SILVA Work Phone: [facility] 12-03-2024 13:26-0400 Systolic blood pressure 100 mm[Hg] Jayla DA SILVA Work Phone: [facility] 11-12-2024 08:47-0400 Body height 167.6 cm Guadalupe Peres MD Work Phone: [facility] 11-12-2024 08:47-0400 Body mass index (BMI) [Ratio] 27.48 kg/m2 Guadalupe Peres MD Work Phone: [facility] 11-12-2024 08:47-0400 Body weight 77.2 kg Guadalupe Peres MD Work Phone: [facility] 11-12-2024 08:47-0400 Diastolic blood pressure 73 mm[Hg] Guadalupe Peres MD Work Phone: [facility] 11-12-2024 08:47-0400 Heart rate 90 /min Guadalupe Peres MD Work Phone: [facility] 11-12-2024 08:47-0400 Systolic blood pressure 105 mm[Hg] Guadalupe Peres MD Work Phone: [facility] 11-05-2024 14:10-0400 Body mass index (BMI) [Ratio] 27.02 kg/m2 Jack Peggy DO Work Phone: [facility] 11-05-2024 14:10-0400 Body weight 75.93 kg Jack Peggy DO Work Phone: [facility] 11-05-2024 14:10-0400 Diastolic blood pressure 68 mm[Hg] Jack Peggy DO Work Phone: [facility] 11-05-2024 14:10-0400 Systolic blood pressure 106 mm[Hg] Jack Peggy DO Work Phone: [facility] 10-08-2024 14:35-0400 Body mass index (BMI) [Ratio] 27.41 kg/m2 Jack Peggy DO Work Phone: [facility] 10-08-2024 14:35-0400 Body weight 77.02 kg Jack Peggy DO Work Phone: [facility] 10-08-2024 14:35-0400 Diastolic blood pressure 72 mm[Hg] Jack Peggy DO Work Phone: [facility] 10-08-2024 14:35-0400 Systolic blood pressure 100 mm[Hg] Jack Peggy DO Work Phone: [facility] 09-19-2024 13:34-0400 Body mass index (BMI) [Ratio] 26.95 kg/m2 [facility] Nurse [facility] 09-19-2024 13:34-0400 Body weight 75.75 kg [facility] Nurse [facility] 09-19-2024 13:34-0400 Diastolic blood pressure 84 mm[Hg] [facility] Nurse [facility] 09-19-2024 13:34-0400 Systolic blood pressure 108 mm[Hg] [facility] Nurse [facility] 04-10-2024 11:05-0500 Body mass index (BMI) [Ratio] 27.6 kg/m2 Jack Peggy DO Work Phone: [facility] 04-10-2024 11:05-0500 Body weight 77.56 kg Jack Peggy DO Work Phone: [facility] 04-10-2024 11:05-0500 Diastolic blood pressure 72 mm[Hg] Jack Peggy DO Work Phone: [facility] 04-10-2024 11:05-0500 Systolic blood pressure 114 mm[Hg] Jack Peggy DO Work Phone: [facility] 2024 13:52-0400 Body height 167.6 cm Jack Peggy DO Work Phone: [facility] 2024 13:52-0400 Body mass index (BMI) [Ratio] 26.6 kg/m2 Jack Peggy DO Work Phone: [facility] 2024 13:52-0400 Body weight 74.75 kg Jack Peggy DO Work Phone: [facility] 2024 13:52-0400 Diastolic blood pressure 56 mm[Hg] Jack Peggy DO Work Phone: [facility] 2024 13:52-0400 Systolic blood pressure 100 mm[Hg] Jack Peggy DO Work Phone: [facility] 03-21-2023 18:10-0500 Body height 167.64 cm Rina Anton Other [employer] Other 03-21-2023 18:10-0500 Body mass index (BMI) [Ratio] 26.95 kg/m2 Rina Anton Other [employer] Other 03-21-2023 18:10-0500 Body temperature 98.9 [degF] Rina Anton Other [employer] Other 03-21-2023 18:10-0500 Body weight 75.75 kg Rina Anton Other [employer] Other 03-21-2023 18:10-0500 Respiratory rate 18 /min Rina Anton Other [employer] Other 03-21-2023 18:10-0500 SaO2% (BldA) [Mass fraction] 97 % Rina Anton Other [employer] Other 02-01-2019 06:41-0400 BP Diastolic 64 mm[Hg] [facility] [place] [place] 02-01-2019 06:41-0400 BP Systolic 107 mm[Hg] [facility] [place] 02-01-2019 06:41-0400 Pulse (Heart Rate) 64 /[facility] 02-01-2019 04:30-0400 Body Temperature 98.01 [degF] Keyla Leyva [facility], [place] 02-01-2019 04:30-0400 Body weight 58.92 kg [facility] , [place] 02-01-2019 04:30-0400 Pulse Oximetry 100 % [facility] 02-01-2019 04:30-0400 Respiratory Rate 18 /min [facility] Encounters Encounter Date Encounter Type Care Provider Facility Start: 01-16-2025 End: 01-16-2025 Bamboo flowsheet Jack Peggy DO Work Phone: [facility] Start: 01-16-2025 End: 01-16-2025 Bamboo flowsheet Jack Peggy DO Work Phone: [facility] Start: 01-16-2025 End: 01-16-2025 flow sheet Jack Peggy DO Work Phone: [facility] Comment on above: 25 weeks gestation o f ([facility]); Second trimester ([facility]); Palpitations; Syncope, unspecified syncope type; Gastroesophageal reflux in ([facility]) Start: 01-16-2025 End: 01-16-2025 ambulatory JACK PEGGY Not Available Start: 01-07-2025 End: 01-07-2025 Bamboo flowsheet Jayla DA SILVA Work Phone: [facility] Start: 01-07-2025 End: 01-07-2025 Bamboo flowsheet Jayla DA SILVA Work Phone: [facility] Start: 01-07-2025 End: 01-07-2025 flow sheet Jayla DA SILVA Work Phone: [facility] Comment on above: Second trimester pre gnancy ([facility]); 23 weeks gestation of ([facility]); Palpitations; Tachycardia Start: 01-07-2025 End: 01-07-2025 ambulatory JAYLA ART Not Available Start: 12-31-2024 End: 12-31-2024 flow sheet Jack Peggy DO Work Phone: [facility] Comment on above: Second trimester pre gnancy ([facility]); 23 weeks gestation of ([facility]); Diabetes mellitus screening Start: 12-31-2024 End: 12-31-2024 ambulatory JACK PEGGY Not Available Start: 12-31-2024 End: 12-31-2024 Bamboo flowsheet Jack Peggy DO Work Phone: [facility] Start: 12-31-2024 End: 12-31-2024 Bamboo flowsheet Jack Peggy DO Work Phone: [facility] Start: 12-10-2024 End: 12-10-2024 ambulatory [facility] Start: 12-03-2024 End: 12-03-2024 Bamboo flowsheet Jayla DA SILVA Work Phone: [facility] Start: 12-03-2024 End: 12-03-2024 Bamboo flowsheet Jayla DA SILVA Work Phone: [facility] Start: 12-03-2024 End: 12-03-2024 flow sheet Jayla DA SILVA Work Phone: [facility] Comment on above: Second trimester pre gnancy ([facility]); 19 weeks gestation of ([facility]) Start: 12-03-2024 End: 12-03-2024 ambulatory JAYLA ART Not Available Start: 11-12-2024 End: 11-12-2024 Office consultation new/estab patient 60 min Guadalupe Peres MD Work Phone: [facility] Comment on above: Adnexal mass (Primar y Dx); 16 weeks gestation of ; Uterine fibroids affecting in second trimester; Localized swelling of right lower extremity Start: 11-12-2024 End: 11-12-2024 Orders Only 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 [facility] Comment on above: Adnexal mass (Primar y Dx); Uterine fibroids affecting in second trimester; Localized swelling of right lower extremity Start: 11-05-2024 End: 11-05-2024 Bamboo flowsheet Jack Peggy DO Work Phone: [facility] Start: 11-05-2024 End: 11-12-2024 Bamboo flowsheet Jack Peggy DO Work Phone: [facility] Start: 11-05-2024 End: 11-11-2024 Clinisync Result Encounter Jack Peggy DO Work Phone: [facility] Unsolicited Start: 11-05-2024 End: 11-12-2024 External Result Encounter Jack Peggy DO Work Phone: [facility] Unsolicited Start: 11-05-2024 End: 11-05-2024 Patient encounter procedure Jack Peggy DO Work Phone: [facility] Work Phone: Start: 11-05-2024 End: 11-05-2024 Periodic preventive med est patient 18-39 yrs Jack Peggy DO Work Phone: [facility] Comment on above: Well woman exam with routine gynecological exam; Second trimester ([facility]); 15 weeks gestation of ([facility]); Vaginal discharge; STD exposure Start: 11-05-2024 End: 11-05-2024 ambulatory Jack Altamiranoo [facility] Work Phone: Start: 11-05-2024 End: 11-05-2024 Departed Referred Jack Woods -LAB Path [facility] Start: 10-08-2024 End: 10-08-2024 flow sheet Jack Peggy DO Work Phone: [facility] Comment on above: 11 weeks gestation o f ; First trimester ; Other constipation; Gastroesophageal reflux in Start: 10-08-2024 End: 10-08-2024 ambulatory JACK PEGGY Not Available Start: 10-08-2024 End: 10-08-2024 Bamboo flowsheet Jack Peggy DO Work Phone: [facility] Start: 10-08-2024 End: 10-08-2024 Bamboo flowsheet Jack Peggy DO Work Phone: [facility] Start: 09-24-2024 End: 09-24-2024 Clinisync Result Encounter Jack Peggy DO Work Phone: [facility] External Department Unsolicited Start: 09-24-2024 End: 09-24-2024 Clinisync Result Encounter Jack Peggy DO Work Phone: [facility] Department Unsolicited Start: 09-19-2024 End: 09-19-2024 Office outpatient visit 5 minutes [facility] Peggy Nurse [facility] Comment on above: GA: 8w2d Start: 09-19-2024 End: 09-19-2024 ambulatory JACK PEGGY Not Available Start: 08-28-2024 End: 08-28-2024 ambulatory JACK PEGGY Not Available Start: 08-26-2024 End: 08-26-2024 Clinisync Result Encounter Jack Peggy DO Work Phone: [facility] Unsolicited Start: 08-26-2024 End: 08-26-2024 Clinisync Result Encounter Jack Peggy DO Work Phone: [facility] Department Unsolicited Start: 08-24-2024 End: 08-24-2024 Clinisync Result Encounter Jack Peggy DO Work Phone: [facility] Unsolicited Start: 08-24-2024 End: 08-24-2024 Clinisync Result Encounter Jack Peggy DO Work Phone: [facility] Department Unsolicited Start: 08-22-2024 End: 08-22-2024 Clinisync Result Encounter Jack Peggy DO Work Phone: [facility] Department Unsolicited Start: 08-22-2024 End: 08-22-2024 Clinisync Result Encounter Jack Peggy DO Work Phone: [facility] External Department Unsolicited Start: 08-20-2024 End: 08-20-2024 Clinisync Result Encounter Jack Peggy DO Work Phone: [facility] Department Unsolicited Start: 08-20-2024 End: 08-20-2024 Clinisync Result Encounter Jack Peggy DO Work Phone: [facility] Department Unsolicited Start: 08-17-2024 End: 08-17-2024 Clinisync Result Encounter Jack Peggy DO Work Phone: [facility] Department Unsolicited Start: 08-17-2024 End: 08-17-2024 Clinisync Result Encounter Jack Peggy DO Work Phone: [facility] Department Unsolicited Start: 08-15-2024 End: 08-15-2024 Clinisync Result Encounter Jack Peggy DO Work Phone: [facility] Department Unsolicited Start: 08-15-2024 End: 08-15-2024 Clinisync Result Encounter Jack Peggy DO Work Phone: [facility] Department Unsolicited Start: 06-14-2024 End: 06-15-2024 Clinisync Result Encounter Jack Peggy DO Work Phone: [facility] Department Unsolicited Start: 06-14-2024 End: 06-15-2024 Clinisync Result Encounter Jack Peggy DO Work Phone: [facility] Department Unsolicited Start: 04-18-2024 End: 04-19-2024 Clinisync Result Encounter Jack Peggy DO Work Phone: [facility] Department Unsolicited Start: 04-18-2024 End: 04-19-2024 Clinisync Result Encounter Jack Peggy DO Work Phone: [facility] Department Unsolicited Start: 04-10-2024 End: 04-10-2024 Bamboo flowsheet Jack Peggy DO Work Phone: [facility] Start: 04-10-2024 End: 04-10-2024 Bamboo flowsheet Jack Peggy DO Work Phone: [facility] Start: 04-10-2024 End: 04-10-2024 Office outpatient visit 15 minutes Jack Peggy DO Work Phone: [facility] Comment on above: Encounter for infert ility; Hormone disorder Start: 04-10-2024 End: 04-10-2024 ambulatory JACK PEGGY Not Available Start: 03-21-2024 End: 03-21-2024 Clinisync Result Encounter Jack Peggy DO Work Phone: [facility] Unsolicited Start: 03-21-2024 End: 03-21-2024 Clinisync Result Encounter Jack Peggy DO Work Phone: [facility] External Department Unsolicited Start: 02-17-2024 End: 02-19-2024 Clinisync Result Encounter Jack Peggy DO Work Phone: [facility] Unsolicited Start: 02-17-2024 End: 02-19-2024 Clinisync Result Encounter Jack Peggy DO Work Phone: [facility] Department Unsolicited Start: 2024 End: 2024 Clinisync Result Encounter Jack Peggy DO Work Phone: [facility] Department Unsolicited Start: 2024 End: 2024 Clinisync Result Encounter Jack Peggy DO Work Phone: [facility] External Department Unsolicited Start: 2024 End: 2024 Office outpatient visit 15 minutes Jack Peggy DO Work Phone: [facility] Comment on above: Female infertility; History of miscarriage Start: 2024 End: 2024 ambulatory JACK PEGGY Not Available Start: 01-05-2024 End: 01-05-2024 Patient encounter procedure MD Zachary Mayes Work Phone: [facility] [place] Work Phone: Start: 01-05-2024 End: 01-05-2024 ambulatory MD Zachary Mayes Work Phone: [facility] Work Phone: Start: 12-28-2023 End: 12-28-2023 Patient encounter procedure MD Zachary Mayes Work Phone: [facility] [place] Work Phone: Start: 12-28-2023 End: 12-28-2023 ambulatory MD Zachary Mayes Work Phone: [facility] Work Phone: Start: 12-22-2023 End: 12-22-2023 Patient encounter procedure MD Zachary Mayes Work Phone: [facility] [place] Work Phone: Start: 12-22-2023 End: 12-22-2023 ambulatory MD Zachary Mayes Work Phone: [facility] Work Phone: Start: 12-20-2023 End: 12-20-2023 Patient encounter procedure MD Zachary Mayes Work Phone: [facility]Ultrasound [facility] [place] Work Phone: Start: 12-20-2023 End: 12-20-2023 ambulatory MD Zachary Mayes Work Phone: [facility] Work Phone: Start: 12-09-2023 End: 12-09-2023 Patient encounter procedure MD Zachary Mayes Work Phone: [facility] [place] Work Phone: Start: 12-09-2023 End: 12-09-2023 ambulatory MD Zachary Mayes Work Phone: [facility] Work Phone: Start: 12-07-2023 End: 12-07-2023 Patient encounter procedure MD Zachary Mayes Work Phone: [facility] [place] Work Phone: Start: 12-07-2023 End: 12-07-2023 ambulatory MD Zachary Mayes Work Phone: [facility] Work Phone: Start: 12-05-2023 End: 12-05-2023 Patient encounter procedure MD Zachary Mayes Work Phone: [facility] [place] Work Phone: Start: 12-05-2023 End: 12-05-2023 ambulatory MD Zachary Mayes Work Phone: [facility] Work Phone: Start: 12-02-2023 End: 12-02-2023 ambulatory MD Zachary Mayes Work Phone: [facility] Work Phone: Start: 12-02-2023 End: 12-02-2023 Patient encounter procedure MD Zachary Mayes Work Phone: [facility] [place] Work Phone: Start: 05-01-2023 End: 05-01-2023 Admission to same day surgery center MD Zachary Mayes Work Phone: [facility]XRay [facility] [place] Work Phone: Start: 05-01-2023 End: 05-01-2023 ambulatory MD Zachary Mayes Work Phone: [facility] Work Phone: Start: 03-21-2023 End: 03-21-2023 ambulatory Rina Anton Other [employer] Other Start: 03-21-2023 Office outpatient ne w 30 minutes Rina Anton [facility] Start: 02-01-2019 End: 02-01-2019 Emergency department patient visit [facility] Start: 02-01-2019 End: 02-01-2019 Emergency department patient visit [facility] Work Phone: [facility] ED Comment on above: Abdominal pain, righ t lower quadrant (Primary Dx); History of ovarian cyst Procedures Date Procedure Procedure Detail Performing Clinician Start: 01-16-2025 Urnls dip stick/tabl et rgnt non-auto w/o micrscp Jack Peggy DO Work Phone: Start: 01-07-2025 Urnls dip stick/tabl et rgnt non-auto w/o micrscp Jayla DA SILVA Work Phone: Start: 12-31-2024 Urnls dip stick/tabl et rgnt non-auto w/o micrscp Jack Peggy DO Work Phone: Start: 12-03-2024 Urnls dip stick/tabl et rgnt non-auto w/o micrscp Jayla DA SILVA Work Phone: Start: 11-12-2024 FREE CELL DNA (NON-[facility] SEND OUT) Not In System Ref Prov Start: 11-05-2024 RECURRENT VAGINITIS (HTRX) Jack Peggy DO Work Phone: Start: 11-05-2024 Urnls dip stick/tabl et rgnt non-auto w/o micrscp Jack Peggy DO Work Phone: Start: 11-05-2024 IGP,APTIMA HPV,AGE GDLN Jack Peggy DO Work Phone: Start: 11-05-2024 PATHOLOGY REQUEST FO R LAB GIA Jack Peggy DO Work Phone: Start: 10-08-2024 Urnls dip stick/tabl et rgnt non-auto w/o micrscp Jack Peggy DO Work Phone: Start: 09-24-2024 MLR HEMOGLOBIN A1C Core y Peggy DO Work Phone: Start: 09-19-2024 Urnls dip stick/tabl et rgnt non-auto w/o micrscp Jack Peggy DO Work Phone: Start: 08-26-2024 TBH PREG QUANT HCG Core y Peggy DO Work Phone: Start: 08-24-2024 TBH PREG QUANT HCG Core y Peggy DO Work Phone: Start: 08-22-2024 TBH PREG QUANT HCG Core y Peggy DO Work Phone: Start: 08-20-2024 TBH PREG QUANT HCG Core y Peggy DO Work Phone: Start: 08-17-2024 TBH PREG QUANT HCG Core y Peggy DO Work Phone: Start: 08-15-2024 TBH PREG QUANT HCG Core y Peggy DO Work Phone: Start: 06-14-2024 ALL PROGESTERONE Jack Peggy DO Work Phone: Start: 04-18-2024 ALL PROGESTERONE Jack Peggy DO Work Phone: Start: 03-21-2024 TBH PREG QUANT HCG Core y Peggy DO Work Phone: Start: 02-17-2024 ALL PROGESTERONE Jack Peggy DO Work Phone: Start: 2024 MLR HEMOGLOBIN A1C Core y Peggy DO Work Phone: Start: 12-20-2023 Diagnostic ultrasoun d of gravid uterus MD Zachary Mayes Work Phone: Start: 02-01-2019 Urinalysis microscopic only VESELIN DAGO Start: 02-01-2019 Urine test visual color cmprsn meths VESELIN DAGO Start: 02-01-2019 Urnls dip stick/tabl et rgnt auto w/o microscopy VESELIN DAGO Start: 02-01-2019 Blood count complete auto&auto difrntl wbc VESELIN DAGO Start: 02-01-2019 Comprehensive metabo lic panel VESELIN DAGO Start: 02-01-2019 Urinalysis microscopic only Veselin Dago Work Phone: Start: 02-01-2019 Urine test visual color cmprsn meths Veselin Dago Work Phone: Start: 02-01-2019 Urnls dip stick/tabl et rgnt auto w/o microscopy Veselin Dago Work Phone: Start: 02-01-2019 Blood count complete auto&auto difrntl wbc Veselin Dago Work Phone: Start: 02-01-2019 Comprehensive metabo lic panel Veselin Dago Work Phone: Plan of Treatment Date Care Activity Detail Author Start: 11-12-2025 Adult BMI Screening Adult BMI Screen ing [facility] Start: 11-12-2025 Tobacco Screening Tobacco Screening [facility] Start: 01-28-2025 End: 01-28-2025 Patient encounter procedure 01/28/2025 8:40 AM EDT Routine [facility] [address] [place] [phone] Jayla Art, REKHA [address] [place] [address] [facility] Start: 01-21-2025 End: 01-21-2025 Patient encounter procedure 01/21/2025 8:40 AM EDT Office Visit [facility] [address] [place] [address] Jack Woods DO [address] [place] [address] [facility] Start: 01-16-2025 End: 01-16-2025 Patient encounter procedure 01/16/2025 9:20 AM EDT Office Visit [facility] GALDAMEZ [address] [place] [phone] Jack Woods, DO [address] [place] [address] Arrived [facility] [place] [facility] Comment on above: Arrived Start: 01-13-2025 Influenza vaccination Influenza Vacc ine [facility] Start: 01-07-2025 End: 01-07-2026 12 lead ECG ECG 12 lead unit performed ECG Routine Palpitations Expected: 01/07/2025 (Approximate), Expires: 01/07/2026 [facility] Work Phone: Comment on above: Expected: 01/07/2025 (Approximate), Expires: 01/07/2026 Start: 01-07-2025 End: 01-07-2027 Echocardiogram 2D complete Echocardiogram 2D complete Echocardiography Routine Palpitations Tachycardia Expected: 01/07/2025 (Approximate), Expires: 01/07/2027 [facility] Comment on above: Expected: 01/07/2025 (Approximate), Expires: 01/07/2027 Start: 01-07-2025 End: 01-07-2025 Patient encounter procedure 01/07/2025 1:50 PM EDT Office Visit RIMMA GALDAMEZ [address] [place] [phone] Jayla Art PA [address] [place] [address] Arrived [facility] Comment on above: Arrived Start: 12-31-2024 End: 12-31-2024 Patient encounter procedure 12/31/2024 2:10 PM EDT Routine [facility] GALDAMEZ [address] [place] [id number] Jack Woods, DO [address] [place] [address] Arrived [facility] GALD[facility] Comment on above: Arrived Start: 12-31-2024 End: 12-31-2025 CBC panel - Blood by Automated count CBC Lab Routine Diabetes mellitus screening Expected: 12/31/2024 (Approximate), Expires: 12/31/2025 [facility] Work Phone: Comment on above: Expected: 12/31/2024 (Approximate), Expires: 12/31/2025 Start: 12-31-2024 End: 12-31-2025 Measurement of glucose 1 hour after glucose challenge for glucose tolerance test Glucose tolerance, 1 hour Lab Routine Diabetes mellitus screening Expected: 12/31/2024 (Approximate), Expires: 12/31/2025 [facility] Comment on above: Expected: 12/31/2024 (Approximate), Expires: 12/31/2025 Start: 12-10-2024 End: 12-10-2024 Patient encounter procedure 12/10/2024 1:30 PM EDT Appointment [facility] [place] [address] [facility] [address] [place] [address] [facility] [place] Start: 12-03-2024 End: 12-03-2024 Patient encounter procedure [facility] Comment on above: Second trimester pre gnancy ([facility]) Start: 11-12-2024 End: 11-12-2025 MR Pelvis WO contrast MR pelvis without contrast Imaging Routine Adnexal mass 16 weeks gestation of Expected: 11/12/2024, Expires: 11/12/2025 [facility] Work Phone: Comment on above: Expected: 11/12/2024 , Expires: 11/12/2025 Start: 11-12-2024 End: 11-12-2025 US MFM with or without consult US MFM with or without consult Imaging Routine Adnexal mass Uterine fibroids affecting in second trimester Localized swelling of right lower extremity Expected: 11/12/2024, Expires: 11/12/2025 [facility] Work Phone: Comment on above: Expected: 11/12/2024 , Expires: 11/12/2025 Start: 11-12-2024 End: 11-12-2025 US.doppler Lower extremity vein - right Vas venous duplex insufficiency lwr rt Vascular Ultrasound Routine Localized swelling of right lower extremity Expected: 11/12/2024, Expires: 11/12/2025 [facility] Comment on above: Expected: 11/12/2024 , Expires: 11/12/2025 Start: 11-05-2024 End: 05-07-2025 Alpha fetoprotein, maternal Alpha fetoprotein, maternal Lab Routine Second trimester ([facility]) 15 weeks gestation of ([facility]) Expected: 11/05/2024 (Approximate), Expires: 05/07/2025 [facility] Comment on above: Expected: 11/05/2024 (Approximate), Expires: 05/07/2025 Start: 11-05-2024 End: 11-05-2024 Patient encounter procedure [facility] Comment on above: Arrived Start: 11-05-2024 [facility] Start: 10-08-2024 End: 10-08-2024 Patient encounter procedure [facility] Comment on above: Arrived Start: 09-19-2024 End: 09-19-2025 ABO/Rh ABO/Rh Lab Routine Missed menses , unspecified gestational age Expected: 09/19/2024 (Approximate), Expires: 09/19/2025 [facility] Comment on above: Expected: 09/19/2024 (Approximate), Expires: 09/19/2025 Start: 09-19-2024 End: 09-19-2025 Blood type and Indirect antibody screen panel - Blood Type and screen Lab Routine Missed menses , unspecified gestational age Expected: 09/19/2024 (Approximate), Expires: 09/19/2025 [facility] Work Phone: Comment on above: Expected: 09/19/2024 (Approximate), Expires: 09/19/2025 Start: 09-19-2024 End: 09-19-2025 Drugs of abuse panel - Urine by Screen method Rapid drug screen, urine Lab Routine , unspecified gestational age Encounter for supervision of normal first in first trimester Expected: 09/19/2024 (Approximate), Expires: 09/19/2025 [facility] Comment on above: Expected: 09/19/2024 (Approximate), Expires: 09/19/2025 Start: 09-19-2024 End: 09-19-2024 ambulatory 09/19/2024 1:30 PM EDT Initial [facility] [address] [place] [address] [facility] Start: 09-19-2024 End: 09-19-2024 Professional / ancillary services management 09/19/2024 1:00 PM EDT Ancillary Procedure [facility] [address] [place] [address] [facility] Start: 08-28-2024 End: 08-28-2024 Professional / ancillary services management 08/28/2024 8:30 AM EDT Ancillary Procedure [facility] [address] [place] [address] [facility] Start: 04-10-2024 End: 04-10-2025 Antimullerian hormone (AMH) Antimullerian hormone (AMH) Lab Routine Hormone disorder Expected: 04/10/2024 (Approximate), Expires: 04/10/2025 [facility] Work Phone: Comment on above: Expected: 04/10/2024 (Approximate), Expires: 04/10/2025 Start: 04-10-2024 End: 04-10-2024 Patient encounter procedure 04/10/2024 11:10 AM EST Office Visit [facility] [address] [place] [phone] Jack Woods, DO [facility] [address] [place] [address] Arrived [facility] Comment on above: Arrived Start: 2024 End: 2024 Patient encounter procedure 2024 1:20 PM EDT Office Visit [facility] [address] [place] [address] Jack Woods, DO [facility] [place] [address] [facility] Start: 12-24-2019 DTaP,Tdap and Td Vaccines (2 - Td or Tdap) DTaP,Tdap and Td Vaccines (2 - Td or Tdap) [facility] Start: 2019 Screening for malign ant neoplasm of cervix Pap Smear [facility] Start: 01-13-2019 Influenza vaccination Flu vaccine (# 1) [place], [place] Start: 02-07-2016 Adult BMI Follow Up Plan Adult BMI F ollow Up Plan [facility] Start: 2010 Depression Screening Depression Scre ening [facility] Bacteria identified in Urine by Culture Urine culture Microbiology Routine Missed menses Ordered: 09/19/2024 [facility] Comment on above: Ordered: 09/19/2024 CBC W Auto Different ial panel - Blood CBC and differential Lab Routine Missed menses , unspecified gestational age Ordered: 09/19/2024 [facility] Comment on above: Ordered: 09/19/2024 CHLAMYDIA TRACHOMATI S (GENITO/STI) CHLAMYDIA TRACHOMATIS (GENITO/STI) Lab Routine STD exposure Ordered: 11/05/2024 [facility] Comment on above: Ordered: 11/05/2024 Cytology Cervical or vaginal smear or scraping study Pap Smear Pathology and Cytology Routine Well woman exam with routine gynecological exam Ordered: 11/05/2024 [facility] Comment on above: Ordered: 11/05/2024 Hemoglobin A1c/Hemoglobin.total in Blood Hemoglobin A1c Lab Routine Missed menses , unspecified gestational age Ordered: 09/19/2024 [facility] Comment on above: Ordered: 09/19/2024 Hepatitis B virus surface Ag [Presence] in Serum or Plasma by Immunoassay Hepatitis B surface antigen Lab Routine Missed menses , unspecified gestational age Ordered: 09/19/2024 [facility] Comment on above: Ordered: 09/19/2024 Hepatitis C virus Ab [Presence] in Serum or Plasma by Immunoassay Hepatitis C antibody Lab Routine Missed menses , unspecified gestational age Ordered: 09/19/2024 [facility] Comment on above: Ordered: 09/19/2024 HIV-1/HIV-2 antigen/antibody combination immunoassay HIV-1 and HIV-2 antibodies Lab Routine Missed menses , unspecified gestational age Ordered: 09/19/2024 [facility] Comment on above: Ordered: 09/19/2024 Neisseria gonorrhoea e DNA [Presence] in Unspecified specimen by DARIUS with probe detection Neisseria gonorrhea DNA probe, direct Lab Routine STD exposure Ordered: 11/05/2024 [facility] Comment on above: Ordered: 11/05/2024 Progesterone [Mass/volume] in Serum or Plasma [facility] Reagin Ab [Presence] in Serum by RPR RPR Lab Routine Missed menses , unspecified gestational age Ordered: 09/19/2024 [facility] Comment on above: Ordered: 09/19/2024 Rubella antibody, IgG Rubella an tibody, IgG Lab Routine Missed menses , unspecified gestational age Ordered: 09/19/2024 [facility] Comment on above: Ordered: 09/19/2024 SURESWAB(R) ADVANCED VAGINITIS PLUS, TMA SURESWAB(R) ADVANCED VAGINITIS PLUS, TMA Pathology and Cytology Routine Vaginal discharge Ordered: 11/05/2024 [facility] Work Phone: Comment on above: Ordered: 11/05/2024 Immunizations Immunization Date Immunization Notes Care Provider [facility] 03-18-2017 influenza virus vaccine, unspecified formulation Guadalupe Peres MD Work Phone: [facility] Payers Date Payer Category Payer [facility] Managed Care - PPO ANTHEM [id number] 2024 [facility] BCBS [id number] 2024 Unknown [id number] 2023 Self-pay [id number] 2023 Private Health Insurance [id number] 2023 Private Health Insurance [id number] 2014 Unknown [id number] 2014 Unknown BCBS [place] - [place] P PO xxxxxxxxxxxx 2014-Present [address] [place] [address] xxxxxxxxxxxx [id number] 1998 Unknown [id number] 2.16840.1.113137.3.579.2 .174 1998 Unknown [id number] 2.16840.1.582775.3.579.2 .1286 1998 Unknown [id number] 2.16.840.1.281478.3.579.2 .1286 1998 Unknown [id number] 2.16.840.1.839348.3.579.2 .1286 1998 Unknown [id number] 2.16.840.1.852200.3.579.2 .1259 1998 Unknown [id number] 2.16.840.1.355046.3.579.2 .1259 1998 Unknown [id number] 2.16840.1.442564.3.579.2 .1258 1998 Unknown [id number] 2.840.1.007118.3.579.2 .1258 1998 Unknown [id number] 2.840.1.225471.3.579.2 .1258 1998 Unknown [id number] 2.0.1.214648.3.579.2 .1258 1998 Unknown [id number] 2.840.1.359754.3.579.2 .1258 1998 Unknown [id number] 2.0.1.037605.3.579.2 .1258 1998 Unknown [id number] 2.840.1.217123.3.579.2 .1258 1998 Unknown [id number] 2.0.1.917154.3.579.2 .1258 1998 Unknown [id number] 2.840.1.604683.3.579.2 .1258 Unknown [facility] [id number] Unknown [employer]/ [id number] Unknown [id number] .1.079394.3.579.2 .531 Unknown [id number] .840.1.819861.3.579.2 .531 Unknown [id number] 2.840.1.924387.3.579.2 .531 Unknown [id number] 2.840.1.238443.3.579.2 .531 Unknown [id number] 2.840.1.174230.3.579.2 .531 Unknown [id number] 2.840.1.967731.3.579.2 .531 Unknown [id number] 2.840.1.323765.3.579.2 .531 Unknown [id number] 2.16.840.1.711649.3.579.2 .531 Unknown [id number] 2.16.840.1.289527.3.579.2 .531 Social History Date Type Detail Facility Start: 02-01-2019 End: 04-28-2023 Tobacco smoking status NHIS Never smoker [facility] Start: 02-01-2019 End: 2024 Alcohol intake Not Currently [employer] Start: 1998 [facility] Start: 2000 Sex Assigned At Female [facility] Start: 2024 End: 01-16-2025 Alcoholic beverage intake Lifetime non-drinker (finding) [facility] Start: 04-28-2023 End: 2024 History of Social function [facility] Start: 04-28-2023 Alcohol Comment Caffeine intak e: 3-4 cups per day [facility] Start: 08-06-2024 [facility] Start: 12-26-2022 Sex Female (finding) [facility] Within the past 12 months we worried whether our food would run out before we got money to buy more. Never True [facility] Clinical Notes 03-21-2023 to 01-16-2025 Kelley Sepulveda LPN - 01/16/2025 9:20 AM REKHA Corral - 01/07/2025 1:50 PM Gelacio Prasad LPN - 12/31/2024 2:10 PM REKHA Corral - 12/03/2024 1:30 PM EDT Note Date & Type Note Facility 01-16-2025 History of Present illness Narrative Reason for Appointment: Patient ID: Daphney Montesinos is a 24 y.o. female who presents for Routine Visit Patient presents today for Return OB appointment. MEDICATIONS Current Outpatient Medications Medication Instructions aspirin 81 MG oral suspension ondansetron (ZOFRAN) 4 mg, Oral, Every 6 hours PRN, Take 1 tablet by mouth every 6 hours as needed for nausea. Vit w/Ic-Hdfddgtpr-PJ (PNV PO) ALLERGIES Allergies Allergen Reactions Cephalexin [...] nursing note reviewed. Exam conducted with a user experience team lead present. Vitals: Estimated body mass index is 29.67 kg/m as calculated from the following: Height as of 02/06/24: 5' 6 . Weight as of this encounter: 183 lb 12.8 oz. BP: 120/78 Patient's last menstrual period was 07/23/2024. ASSESSMENT & PLAN ICD-10-CM 1. 25 weeks gestation of ([facility]) Z3A.25 POCT urinalysis dipstick manually resulted 2. Second trimester ([facility]) Z34.92 POCT urinalysis dipstick manually resulted 3. Palpitations R00.2 4. Syncope, unspecified syncope type R55 5. Gastroesophageal reflux in ([facility]) O99.619 K21.9 Patient presents today for a routine obstetrics appointment. Patient is currently 25w2d with a Estimated Date of Delivery: 04/29/25. Patient had spells where she passed out. Patient to have Cardiac Consult hopefully within the next week. Referral will be made today to Cardiology at [facility]. Patient has a EKG scheduled for Monday at 1pm. Patient voiced that she sees stars and then gets dizzy. Advised to increase protein and to remain off work until cleared by Cardiology. Patient to return to clinic 1 week. Documented by Kelley Sepulveda LPN on behalf of: Jack Woods DO documented in this encounter [facility] 01-07-2025 History of Present illness Narrative Reason for Appointment: Patient ID: [...] 6 hours as needed for nausea. Vit w/To-Zbmqzvkal-NG (PNV PO) pyridoxine (VITAMIN B-6) 25 mg, [...] Vitals: Estimated body mass index is 29.83 kg/m as calculated from the following: Height as of 02/06/24: 5' 6 . Weight as of 12/31/24: 184 lb 12.8 oz. BP: Patient's last menstrual period was 07/23/2024. ASSESSMENT & PLAN ICD-10-CM 1. Second trimester ([facility]) Z34.92 POCT urinalysis dipstick manually resulted iron polysaccharides (ProFe) 391.3 (180 Fe) MG capsule 2. 23 weeks gestation of ([facility]) Z3A.23 3. Palpitations R00.2 ECG 12 lead [...] of: REKHA Ott documented in this encounter [facility] 12-31-2024 History of Present illness Narrative Reason for Appointment: Patient ID: [...] 6 hours as needed for nausea. Vit w/Te-Zdzhhztds-IG (PNV PO) pyridoxine (VITAMIN B-6) 25 mg, [...] History of medical problems recurrent strep Miscarriage ([facility]) Ovarian cyst Social History Tobacco Use Smoking [...] nursing note reviewed. Exam conducted with a user experience team lead present. Vitals: Estimated body mass index is 29.83 kg/m as calculated from the following: Height as of 02/06/24: 5' 6 . Weight as of this encounter: 184 lb 12.8 oz. BP: 112/62 Patient's last menstrual period was 07/23/2024. ASSESSMENT & PLAN ICD-10-CM 1. Second trimester ([facility]) Z34.92 POCT urinalysis dipstick manually resulted 2. 23 weeks gestation of ([facility]) Z3A.23 POCT urinalysis dipstick manually resulted 3. [...] Jack Woods DO documented in this encounter [facility] 12-03-2024 History of Present illness Narrative Reason for Appointment: Patient ID: [...] 6 hours as needed for nausea. Vit w/Ve-Xyxikncov-UK (PNV PO) pyridoxine (VITAMIN B-6) 25 mg, [...] vulgaris Endometriosis History of medical problems Miscarriage ([facility]) Ovarian cyst HISTORY PAST MEDICAL HISTORY SOCIAL HISTORY Past Medical History: Diagnosis Date Acne vulgaris Endometriosis History of medical problems recurrent strep Miscarriage ([facility]) Ovarian cyst Social History Tobacco Use Smoking [...] Negative. Endocrine: Negative. Allergic/Immunologic: Negative. OBJECTIVE Objective: OBGyn Exam Vitals: Estimated body mass index is 28.29 kg/m as calculated from the following: Height as of 02/06/24: 5' 6 . Weight as of this encounter: 175 lb 4 oz. BP: 100/78 Patient's last menstrual period was 07/23/2024. ASSESSMENT & PLAN ICD-10-CM 1. Second trimester ([facility]) Z34.92 POCT urinalysis dipstick manually resulted 2. 19 weeks gestation of ([facility]) Z3A.19 Return OB: Patient presents today for a routine obstetrics appointment. Patient is currently 19w0d . Patient states she is doing well but has complaints of being tired due to current . Patient has verbalizes frequent movement. Orders Placed This Encounter Procedures POCT urinalysis dipstick manually resulted Follow Up: Patient is to return to office in 4 week for routine OB appointment. Documented by REKHA Ott on behalf of: REKHA Ott documented in this encounter [facility] 11-12-2024 History of Present illness Narrative Images from the original note were not [...] mouth in the morning., Disp: , Rfl: ondansetron (ZOFRAN) 4 mg tablet, Take 1 tablet (4 mg total) by mouth every 8 (eight) hours as needed for nausea or vomiting., Disp: , Rfl: PNV 22-qzxh-ckfzzhamqmto-dha 29 mg iron-1 mg -350 mg comb [...] TESTS AND ULTRASOUND REPORTS: Referral records and epic chart were reviewed Pertinent Ultrasound findings are see formal ultrasound report. PHYSICAL EXAMINATION: BP 105/73 (BP Site: Left Arm, BP Postition: Lying) Pulse 90 Ht 167.6 cm (5' 5.98 ) Wt 77.2 kg (170 lb 3.2 oz) LMP 07/23/2024 BMI 27.48 kg/m Well-appearing in no distress. Respirations not labored, speaking comfortably in full sentences Gravid abdomen IMAGING 09/22/2024 OVERALL ASSESSMENT -Daphney Montesinos is a pleasant 24 y.o. at 16w0d -bilateral adnexal masses -history of endometriosis -uterine fibroids -right lower extremity pain COUNSELING/MEDICAL DECISION-MAKING Adnexal mass Patient has a bilateral complex adnexal masses genetic has a having Rubin Parra noted on ultrasound today. Patient has known [...] some large cysts or complex adnexal masses persist through and have the potential to cause related [...] as labor or PPROM, compared to planned non-urgent surgical intervention (which has not been found to increase complication risk). Masses that are simple and cystic in nature and <6 cm in diameter have a low risk of malignancy (<1%) and torsion and may be observed during . However, surgical management during is recommended for masses that persist into the second trimester, are rapidly enlarging, appear malignant, OR are >8 cm in diameter. Serum [...] between benign and malignant etiologies. Ref: Gregg Duke., Gregg Casanova.Irvin Tejada (Eds.) (2019) [employer] maternal- medicine :principles and practice [place], [place] : [employer] Sonographic diagnosis of ovarian torsion: accuracy and predictive factors. Monica R, Jeff N, Zion N, Sohan-Chelsea G, Bright I. J Ultrasound Med. 2011 Jan;30(9):1205-10. Adnexal masses in : An updated review. Olivia AM, Dorie I, Adelaide KJ, Qhxi-Ek-Ybylm H, A Tanja MN. [facility] J Med. 2017 Feb-Apr;7(4):153-157. doi: [id number]/[email or web address]. PMID: [id number] Uterine fibroids, affecting I reviewed the uterine fibroids otherwise known as leiomyomas, are benign smooth muscle tumors of the uterus. We discussed that in the first trimester about half of patients experience growth of fibroids, and half have reduction in size or they remain stable. Later in , in the the majority of cases (75%), fibroids decrease in size. Several complications have been associated with uterine myomas during . Myomas may degenerate during secondary to ischemia as the uterus grows and can result in severe pain. Pedunculated myomas may also torsed, resulting in severe pain. In addition, there is slight increase in risk of early loss, labor, placenta previa, growth abnormalities, placental abruption, malpresentation, delivery and hemorrhage. For symptomatic pain control, recommend acetaminophen as the initial intervention. However short courses of NSAIDs can be utilized in severe refractory pain. Indomethacin 25 mg orally every 6 hours for up to 48 hours is a commonly prescribed course if needed. NSAID therapy should be limited to pregnancies less than 32 weeks of gestation because of the possibility of inducing premature closure of the ductus arteriosus, pulmonary hypertension, oligohydramnios, and / platelet dysfunction. Given the size and the number of the uterine fibroids, I recommend a repeat growth ultrasound in the 3rd trimester through the primary OB. Right lower extremity pain There was no gross evidence of DVT on exam today. However given increased risk of DVTs in , a right lower extremity duplex was ordered. Precautions for chest pain or shortness of breath as a sign of VTE were reviewed. SUMMARY/RECOMMENDATION: MRI abdomen without contrast to evaluate bilateral adnexal masses was ordered Right lower extremity venous duplex to rule out DVT, ordered Detailed anatomy ultrasound at 20 weeks' gestation with repeat cervical length and evaluation of bilateral adnexal masses, through MFM Recommend repeat growth ultrasound in the 3rd trimester, through primary OB, given known uterine fibroid Anticipate term vaginal delivery at local hospital Precautions regarding shortness of breath and chest pain were reviewed with the patient today DISPOSITION: At this point the patient is in complete care of her metal miner. Thank you for allowing me to participate in the care of Daphney Montesinos. If there any questions please do not hesitate to contact us. Guadalupe Peres MD Maternal- Medicine [facility] [address] [place] [address] This document was created with [employer] technology. Though I make every effort to review the dictation as it is transcribed, on occasion the spoken word can be misinterpreted by the technology leading to inappropriate words, phrases, or sentences. This note is addressed to the requesting provider as a consultation for clinical guidance. Specific medical abbreviations are occasionally used and those are generally approved by the [place]?Board of?Obstetrics and?Gynecology?as well as?Graham chan abbreviations. The above plan of care was based solely on the diagnoses for which a consultation was requested. ?More frequent testing may be indicated based on her other medical/obstetrical conditions. The management of other or medical conditions is beyond the scope of requested consultation and will continue to be followed by the primary metal miner or primary care provider. Note to patient: The 21st Century Cures Act makes medical notes like these available to patients in the interest of transparency. However, be advised this is a medical document. It is intended as peer to peer communication. It is written in medical language and may contain abbreviations or verbiage that are unfamiliar. It may appear blunt or direct. Medical documents are intended to carry relevant information, facts as evident, and the clinical opinion of the practitioner. Headache/epigastric pain/blurry vision/swelling? Swelling in BLE with N/T - pre-. Bilat hip pain. Cramping/contractions? No Spotting/vaginal bleeding? [...] risk Have you been seen here at [facility] in a previous ? No Recent ER visits or hospitalizations? No Bring blood sugar log or meter with you today? (Please bring them with you for every visit at [facility]) N/A Flu vaccine (Mar-July)? N/A Any concerns that you would like me to mention to the provider today? R calf bruising, +Homans sign, wants to make sure about cysts, feeling nervous about cervix being short, has never been this far along. Right calf = 36.4cm, Left calf = 39.0cm [facility] History of Present illness Narrative Reason for Appointment: Patient ID: Daphney Montesinos is a 24 y.o. female who presents for No chief complaint on file. Patient presents today for Annual Exam., STD Check., and Return OB appointment. MEDICATIONS Current Outpatient Medications Medication Instructions aspirin 81 MG oral suspension docusate sodium (COLACE) 100 mg, Daily Doxylamine Succinate, Sleep, (UNISOM PO) Take by mouth omeprazole (PRILOSEC) 40 mg, Oral, Daily before breakfast, Do not crush or chew. ondansetron (ZOFRAN) 4 mg, Oral, Every 6 hours PRN, Take 1 tablet by mouth every 6 hours as needed for nausea. Vit w/Xk-Ekopkskiv-WG (PNV PO) pyridoxine (VITAMIN B-6) 25 mg, [...] Constitutional: Appearance: Normal appearance. She is well-developed. Genitourinary: Vulva normal. Breasts: Breasts are soft. Right: Normal. Left: Normal. Cardiovascular: Rate and Rhythm: Normal rate and [...] nursing note reviewed. Exam conducted with a user experience team lead present. Vitals: Estimated body mass index is 27.02 kg/m as calculated from the following: Height as of 02/06/24: 5' 6 . Weight as of this encounter: 167 lb 6.4 oz. BP: 106/68 Patient's last menstrual period was 07/23/2024. ASSESSMENT & PLAN ICD-10-CM 1. Well woman exam with routine gynecological exam Z01.419 Pap Smear 2. Second trimester ([facility]) Z34.92 POCT urinalysis dipstick manually resulted Alpha fetoprotein, maternal Alpha fetoprotein, maternal 3. 15 weeks gestation of ([facility]) Z3A.15 POCT urinalysis dipstick manually resulted Alpha fetoprotein, maternal Alpha fetoprotein, maternal 4. Vaginal discharge N89.8 SURESWAB(R) ADVANCED VAGINITIS PLUS, TMA 5. STD exposure Z20.2 CHLAMYDIA TRACHOMATIS (GENITO/STI) Neisseria gonorrhea DNA probe, direct Return OB/Annual Exam: Patient presents today for a annual exam/routine obstetrics appointment. Patient is currently 15w0d . Patient states she is doing well but has complaints of nausea in the morning. Pap and cultures was obtained without difficulty and patient was given orders for msAFP to be obtained. Skin tag removed with pickup and scissors. Orders Placed This Encounter Procedures CHLAMYDIA TRACHOMATIS (GENITO/STI) Neisseria gonorrhea DNA probe, direct Alpha fetoprotein, maternal POCT urinalysis dipstick manually resulted Follow Up: Patient is to schedule annual exam for next year and return to office in 4 weeks for OB appointment. Documented by Lisa Prasad LPN on behalf of: Jack Woods DO documented in this encounter [facility] 10-08-2024 History of Present illness Narrative Reason for Appointment: Patient ID: Daphney Montesinos is a 24 y.o. female who presents for Routine Visit Patient presents today for Return OB appointment. MEDICATIONS Current Outpatient Medications Medication Instructions aspirin 81 MG oral suspension docusate sodium (COLACE) 100 mg, Daily Doxylamine Succinate, Sleep, (UNISOM PO) Take by mouth omeprazole (PRILOSEC) 20 mg, Oral, Daily before breakfast, Do not crush or chew. ondansetron (ZOFRAN) 4 mg, Oral, Every 6 hours PRN, Take 1 tablet by mouth every 6 hours as needed for nausea. Vit w/Lm-Idqucnxxl-PX (PNV PO) pyridoxine (VITAMIN B-6) 25 mg, [...] Eyes: Negative. Respiratory: Negative. Cardiovascular: Negative. Gastrointestinal: Positive for constipation, nausea and vomiting. Genitourinary: Negative. Musculoskeletal: Negative. Skin: Negative. Neurological: [...] nursing note reviewed. Exam conducted with a user experience team lead present. Vitals: Estimated body mass index is 27.41 kg/m as calculated from the following: Height as of 02/06/24: 5' 6 . Weight as of this encounter: 169 lb 12.8 oz. BP: 100/72 Patient's last menstrual period was 07/23/2024. ASSESSMENT & PLAN ICD-10-CM 1. 11 weeks gestation of Z3A.11 POCT urinalysis dipstick manually resulted 2. First trimester Z34.91 POCT urinalysis dipstick manually resulted New OB: Patient presents today for 1st time obstetrics appointment with provider. Patient is currently 11w0d . Patients history has been reviewed in great detail including any potential risks. Patient stated she currently has no complaints. Expectations throughout regarding labs, ultrasounds, and appointments have been discussed with the patient in detail. It was reiterated that the patient is to drink 6-8 glasses of water a day, eat 6 small meals a day, do not consume raw or undercooked meat, and stay away from [facility]. Patient has been consulted regarding any further do's and don'ts of . Patient voiced understanding and all questions and concerns were answered. Pt constipated- dulcolax supp faxed to pharmacy. Orders Placed This Encounter Procedures POCT urinalysis dipstick manually resulted Follow Up: Patient is to return in 4 weeks for routine OB appointment. Documented by Lisa Prasad LPN on behalf of: Jack Woods DO documented in this encounter [facility] 09-19-2024 History of Present illness Narrative Reason for Appointment: Patient ID: Daphney Montesinos is a 24 y.o. female who presents for Amenorrhea Patient presents today for a Nurse OB Intake appointment. Patient is 8w2d with a Estimated Date of Delivery: 04/29/25 OB History Para Term AB Living 3 2 SAB IAB Ectopic Multiple Live Births 2 # Outcome Date GA Lbr Anand/2nd Weight Sex Type Anes PTL Lv 3 Current 2 SAB 1 SAB Current Medications: has a current medication list which includes the following prescription(s): aspirin, omeprazole, ondansetron, vit w/bw-ykfshurps-mp, and progesterone. Medical History: Active Ambulatory Problems Diagnosis Date Noted No Active Ambulatory Problems Resolved Ambulatory Problems Diagnosis Date Noted No Resolved Ambulatory Problems Past Medical History: Diagnosis Date Acne vulgaris Endometriosis History of medical problems Miscarriage Ovarian cyst Family History Problem Relation Name Age of Onset Hypertension Father Diabetes Maternal Grandmother Heart disease Maternal Grandfather Heart disease Paternal Grandmother Other (liver failure) Paternal Grandfather Kidney failure Paternal Grandfather Social History Tobacco Use Smoking status: Never Smokeless tobacco: Not on file Substance Use Topics Alcohol use: Never Comment: Caffeine intake: 3-4 cups per day Drug use: Never Past Surgical History: Procedure Laterality Date BREAST BIOPSY Right 12/2018 LAPAROSCOPY DIAGNOSTIC / BIOPSY / ASPIRATION / LYSIS 11/20/2019 Diagnostic lap-endometriosis TONSILLECTOMY 11/03/2016 Allergies Allergen Reactions Cephalexin Nausea And Vomiting Other Reaction(s): severe vomiting Other Reaction(s): Vomiting Ciprofloxacin Other Reaction(s): GI Intolerance Pt states projectile vomiting. Prednisone Nausea And Vomiting Other Reaction(s): severe vomiting Other Reaction(s): Vomiting Vitals: Estimated body mass index is 27.6 kg/m as calculated from the following: Height as of 02/06/24: 5' 6 . Weight as of 04/10/24: 171 lb. BP: Patient's last menstrual period was 07/23/2024. Assessment/Plan Diagnoses and all orders for this visit: Missed menses - Type and screen; Future - ABO/Rh; Future - CBC and differential - Hemoglobin A1c - RPR - Rubella antibody, IgG - Hepatitis B surface antigen - Hepatitis C antibody - HIV-1 and HIV-2 antibodies - Urine culture - POCT , urine manually resulted - POCT urinalysis dipstick manually resulted , unspecified gestational age - Type and screen; Future - ABO/Rh; Future - CBC and differential - Hemoglobin A1c - RPR - Rubella antibody, IgG - Hepatitis B surface antigen - Hepatitis C antibody - HIV-1 and HIV-2 antibodies - Rapid drug screen, urine; Future Encounter for supervision of normal first in first trimester - Rapid drug screen, urine; Future Gastroesophageal reflux in - omeprazole (PriLOSEC) [address] capsule; Take 1 capsule (20 mg) by mouth in the morning. Take before meals. Do not crush or chew. - ondansetron (Zofran) 4 MG tablet; Take 1 tablet (4 mg) by mouth every 6 (six) hours if needed for nausea or vomiting for up to 30 doses Take 1 tablet by mouth every 6 hours as needed for nausea. Nausea and vomiting during - ondansetron (Zofran) 4 MG tablet; Take 1 tablet (4 mg) by mouth every 6 (six) hours if needed for nausea or vomiting for up to 30 doses Take 1 tablet by mouth every 6 hours as needed for nausea. Nurse Note: OB Intake: Patient presents today for first OB visit. Patients history has been reviewed in great detail including any potential risks. Patient signed consent forms and patient desires testing in both trimesters. Patient currently has no complaints and has been advised to drink 6-8 glasses of water a day, eat no raw or undercooked meat, and stay away from [facility]. Patient has also been advised to not change litter boxes and eat 6 small meals a day. Patient has been consulted regarding the do's and don'ts of . Patient was given labs. Pt requesting dr. Woods to review dating scan due to fibroid. Pt also would like to discuss tapering off of progesterone at 12 weeks. Pt complained of nausea, vomiting, and heart burn. Pt to call in if those medications don't help. All questions and concerns were answered. Follow Up: Patient is to return in 2 weeks for routine OB appointment. Patient is to have labs drawn at directed and return to office for initial OB appointment with provider. Patient may call office as needed with any concerns or questions. Nurse Visit Completed by: Manjula Elias MA documented in this encounter [facility] 04-10-2024 History of Present illness Narrative Reason for Appointment: Patient ID: Daphney Montesinos is a 24 y.o. female who presents for Infertility Patient presents today for Fertility Follow Up appointment. MEDICATIONS Current Outpatient Medications Medication Instructions aspirin 81 MG oral suspension Vit w/Wk-Azgdzkxju-QM (PNV PO) ALLERGIES Allergies Allergen Reactions Cephalexin [...] nursing note reviewed. Exam conducted with a user experience team lead present. Vitals: Estimated body mass index is [...] Pt voiced understanding. Discussed LAST referral towards [place]. Documented by Lisa Prasad LPN on behalf of: Jack Woods DO documented in this encounter [facility] 2024 History of Present illness Narrative Reason for Appointment: Patient ID: Daphney Montesinos is a 23 y.o. female who presents for Infertility Patient presents today for Fertility Follow Up appointment. MEDICATIONS Current Outpatient Medications Medication Instructions aspirin 81 MG oral suspension Vit w/Bj-Lmymcoapj-UP (PNV PO) ALLERGIES Allergies Allergen Reactions Cephalexin [...] nursing note reviewed. Exam conducted with a user experience team lead present. Vitals: Estimated body mass index is [...] Jack Woods DO documented in this encounter [facility] 03-21-2023 Evaluation note Encounter Date Diagnosis Assessment [...] treatment plan. Patient left in stable condition [employer] Other Evaluation noteNo assessment information available [facility] Work Phone: Evaluation note* Diagnosis Encounter for infertility Hormone disorder Unspecified endocrine disorder [facility] Diagnosis Female infertility Female infertility of unspecified origin History of miscarriage Personal history of other genital system and obstetric disorders [facility] Diagnosis Missed menses , unspecified gestational age Encounter for supervision of normal first in first trimester Gastroesophageal reflux in Nausea and vomiting during [facility]* Diagnosis 11 weeks gestation of First trimester state, incidental Other constipation Gastroesophageal reflux in [facility]* Diagnosis Adnexal mass- Primary Other specified symptom associated with female genital organs 16 weeks gestation of Uterine fibroids affecting in second trimester Localized swelling of right lower extremity documented in this encounter [facility] Diagnosis Adnexal mass- Primary Other specified symptom associated with female genital organs Uterine fibroids affecting in second trimester Localized swelling of right lower extremity documented in this encounter [facility] Diagnosis Well woman exam with routine gynecological exam Routine gynecological examination Second trimester (HHS-HCC) state, incidental 15 weeks gestation of (HHS-HCC) Vaginal discharge Leukorrhea, not specified as infective STD exposure documented [facility] this encounter [facility] Diagnosis Second trimester (HHS-HCC) state, incidental 19 weeks gestation of (HHS-HCC) documented [facility] this encounter [facility] Diagnosis Second trimester (HHS-HCC) state, incidental 23 weeks gestation of (HHS-HCC) Diabetes mellitus screening Screening for diabetes mellitus documented in this encounter [facility] Diagnosis Second trimester (HHS-HCC) state, incidental 23 weeks gestation of (HHS-HCC) Palpitations Tachycardia Unspecified tachycardia documented in this encounter [facility]* Diagnosis 25 weeks gestation of (HHS-HCC) Second trimester (HHS-HCC) state, incidental Palpitations Syncope, unspecified syncope type Gastroesophageal reflux in (HHS-HCC) documented in this encounter [facility] Narrative - Reported* Type Description Date Surgical History tonsillectomy Surgical History laparoscopy Glasses Direct Other InstructionsNot on filedocumented in this encounter [facility] SystemInstructionsNot on filedocumented in this encounter [facility] SystemReason for referral (narrative)No reason for referral information availableUniversity [facility]als [facility] Work Phone: Summary Purpose Family History No Family History Records Found Relationship Condition Age at Onset Recorded Date/T juliette father Congestive heart failure Unknown Advance Directives No Advanced Directives Records FoundDocuments on File Type Date Recorded 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 * Abdominal Pain (Persian) * Appendicitis (Persian) documented in this encounter Assessments Diagnosis Abdominal [...] Z87.59 N92.6 n92.6 N92.6 O029.299 N92.6 N92.6 Chief Complaint Admit Date Unknown November 05, 2024 9:00 am Additional Source Comments INFORMATION SOURCE (unrecogn ized section and content) DATE CREATED AUTHOR 02/01/2019 [facility] DATE CREATED AUTHOR AUTHOR'S ORGANIZ ATION 05/05/2023 [facility] DATE CREATED AUTHOR AUTHOR'S ORGANIZ ATION 11/13/2024 [facility] DATE CREATED AUTHOR AUTHOR'S ORGANIZ ATION 11/13/2024 [facility] DATE CREATED AUTHOR AUTHOR'S ORGANIZ ATION 12/12/2024 [facility] DATE CREATED AUTHOR AUTHOR'S ORGANIZ ATION 01/18/2025 [facility] EPIC Reason for Visit (unrecogniz ed section and content) Reason Comments Routine Visit Specialty Diagnoses / Procedures Referred By Ky martini Referred To Contact Obstetrics and Gynecology Diagnoses Enlarged & Heterogeneous Bilateral Ovaries 2.3cm Isoechoic Left-sided Lesion Possible Endometrioma Procedures [place] UNLISTED EVALUATION AND MANAGEMENT SERVICE [facility] [address] [place] [address] Jack Woods, [address] [place] [address] Phone: tel: fax: Referral ID Status Reason Start Date Expiration Date Visits Re quested Visits Authorized [id number] Closed 11/12/2024 05/11/2025 1 1 Reason Comments Abdominal Pain RLQ pain x 1 hour Reason Comments Infertility Reason Comments Amenorrhea Reason Comments Enlarged & Heterogeneous Bilateral Ovari es 2.3cm Isoechoic Left-sided Lesion Possible Endometrioma Reason Comments Routine Visit Care Teams (unrecognized sec tion and content) [...] December 05, 2023 End: December 05, 2023 Jackashish Altamiranoo , DO Attending Provider Active Start : December 05, 2023 End: December 05, 2023 Team Status: Inactive Member Role Status Dates Zachary Mayes MD Primary Care Provider Active Start: December 07, 2023 End: December 07, 2023 Jack Woods , DO Attending Provider Active Start : December 07, 2023 End: December 07, 2023 Team Status: Inactive Member Role Status Dates Zachary Mayes MD Primary Care Provider Active Start: December 09, 2023 End: December 09, 2023 Jack Peggy , DO Attending Provider Active Start : December 09, 2023 End: December 09, 2023 Team Status: Inactive Member Role Status Dates Zachary Mayes MD Primary Care Provider Active Start: December 20, 2023 End: December 20, 2023 Jack Peggy , DO Attending Provider Active Start : December 20, 2023 End: December 20, 2023 Team Status: Inactive Member Role Status Dates Zachary Mayes MD Primary Care Provider Active Start: December 22, 2023 End: December 22, 2023 Jack Peggy , DO Attending Provider Active Start : December 22, 2023 End: December 22, 2023 Team Status: Inactive Member Role Status Dates Zachary Mayes MD Primary Care Provider Active Start: December 28, 2023 End: December 28, 2023 Jack Peggy , DO Attending Provider Active Start : December 28, 2023 End: December 28, 2023 Team Status: Inactive Member Role Status Dates Zachary Mayes MD Primary Care Provider Active Start: January 05, 2024 End: January 05, 2024 Jack Peggy , DO Attending Provider Active Start : January 05, 2024 End: January 05, 2024 Fish Hatchery Man Relationship Specialty Start Date End Date Alberto Mayes MD [address] [place] [phone] PCP - General 05/02/23 Paloma Vazquez DO [address] [place] [address] Referring Physician Obstetrics and Gynecology 04/25/23 Fish Hatchery Man Relationship Specialty Start Date End Date Alberto Mayes MD [facility] [address] [place] [phone] PCP - General 05/02/23 Paloma Vazquez DO [address] [place] [address] Referring Physician Obstetrics and Gynecology 04/25/23 Fish Hatchery Man Relationship Specialty Start Date End Date Alberto Mayes MD [facility] [address] [place] [phone] PCP - General 05/02/23 Paloma Vazquez DO [address] [place] [address] Referring Physician Obstetrics and Gynecology 04/25/23 Fish Hatchery Man Relationship Specialty Start Date End Date Alberto Mayes MD [facility] [address] [place] [phone] PCP - General 05/02/23 Paloma Vazquez DO [address] [place] [address] Referring Physician Obstetrics and Gynecology 04/25/23 Fish Hatchery Man Relationship Specialty Start Date End Date Alberto Mayes MD [address] [place] [phone] PCP - General 05/02/23 Paloma Vazquez DO [address] [place] [address] Referring Physician Obstetrics and Gynecology 04/25/23 Fish Hatchery Man Relationship Specialty Start Date End Date Alberto Mayes MD [address] [place] [address] [address] [phone] PCP - General 05/02/23 Paloma Vazquez DO [address] [place] [address] Referring Physician Obstetrics and Gynecology 04/25/23 Fish Hatchery Man Relationship Specialty Start Date End Date Alberto Mayes MD [address] [place] [phone] PCP - General 05/02/23 Paloma Vazquez DO [address] [place] [address] Referring Physician Obstetrics and Gynecology 04/25/23 Fish Hatchery Man Relationship Specialty Start Date End Date Alberto Mayes MD [address] [place] [address] PCP - General 05/02/23 Paloma Vazquez DO [address] [place] [address] Referring Physician Obstetrics and Gynecology 04/25/23 Fish Hatchery Man Relationship Specialty Start Date End Date Alberto Mayes MD [address] [place] [address] PCP - General 05/02/23 Paloma Vazquez DO [address] [place] [address] Referring Physician Obstetrics and Gynecology 04/25/23 Fish Hatchery Man Relationship Specialty Start Date End Date Alberto Mayes MD [address] [place] [address] PCP - General 05/02/23 Paloma Vazquez DO [address] [place] [address] Referring Physician Obstetrics and Gynecology 04/25/23 Team Status: Inactive Member Role Status Dates Jack Woods DO Attending Provider Active Start : November 05, 2024 End: November 05, 2024 Fish Hatchery Man Relationship Specialty Start Date End Date Alberto Mayes MD [address] [place] [address] PCP - General 05/02/23 Paloma Vazquez DO [address] [place] [address] Referring Physician Obstetrics and Gynecology 04/25/23 Fish Hatchery Man Relationship Specialty Start Date End Date Alberto Mayes MD PCP - General 05/02/23 Fish Hatchery Man Relationship Specialty Start Date End Date Alberto Mayes MD PCP - General 05/02/23 Fish Hatchery Man Relationship Specialty Start Date End Date Alberto Mayes MD PCP - General 05/02/23 Fish Hatchery Man Relationship Specialty Start Date End Date Alberto Mayes MD [facility] 05/02/23 Fish Hatchery Man Relationship Specialty Start Date End Date Alberto Mayes MD [facility] 05/02/23 Fish Hatchery Man Relationship Specialty Start Date End Date Alberto Mayes MD [facility] 05/02/23 Fish Hatchery Man Relationship Specialty Start Date End Date Alberto Mayes MD [facility] 05/02/23 Goals (unrecognized section and content) Goals may [...] BE BASED ON THE PRIMARY CLINICAL RECORDS. [facility]. provides no warranty or guarantee of the accuracy or completeness of information in this document.
--- OUTSIDE RECORDS SUMMARY | 2025-01-20 06:54 | XMS_ITS | Clinical Summary ---
Author Organization [facility] Address [address] [place] [address] Care Team Providers Care Membership Solicitor Name Role Phone Unavailable Primary Care Provider Unavailabl e Social History Tobacco Use Types Packs/Day Years Used Date Smoking Tobacco: Never Assessed Comments Unknown Sex and Gender Information Value Date Recorded Sex Assigned at Not on file Legal Sex Female 4:40 PM EDT Gender Identity Not on file Sexual Orientation Not on file Plan of Treatment Upcoming Encounters Date Type Department Care Team ([facility] st Contact Info) Description 2025 11:00 AM EDT Office Visit [facility] [address] [place] [address] Samreen Chen MD [address] [place] [place] [address] Health Maintenance Due Date Last Done Comments Depression Screening 2010 Varicella Vaccines (1 of 2 - 13+ 2-dose series) 2011 HPV Vaccines (1 - 3-dose series) 2013 Adult Tetanus 02/07/2020 Influenza Vaccine (#1) 2025 Pap Smear 11/06/2027 11/05/2024 Zoster Vaccines (1 of 2) 02/07/2048 HIB Vaccines Aged Out No longer eligi ble based on patient's age to complete this topic IPV Vaccines Aged Out No longer eligi ble based on patient's age to complete this topic Meningococcal B Vaccine Aged Out No l onger eligible based on patient's age to complete this topic Meningococcal Vaccine Aged Out No markus kerwin eligible based on patient's age to complete this topic Pneumococcal Vaccine: Pediat rics (0 to 5 Years) and At-Risk Patients (6 to 64 Years) Aged Out No longer eligi ble based on patient's age to complete this topic Rotavirus Vaccines Aged Out No longer eligible based on patient's age to complete this topic [address] [place] [address] [facility] Member Subscriber Plan / Payer (Ef fective 2024-Present) Name:Daphney Montesinos Relation to Subscriber:Self Name:Daphney Montesinos Payer ID:[id number] (NAIC) Type:Not on file Address: [address] [place] [id number]
--- NOTE | 2025-01-20 07:00 | CA_ITS ---
Patient Name: KORIN AL MR#: [id number] : 2000 Exam Date: 01/20/2025 Ordering Doctor: REKHA ART . ECHOCARDIOGRAM REPORT PROCEDURE: CA ECHO DOPPLER COMPLETE INDICATIONS: Palpitations, tachycardia, 26 weeks COMPARISON: None. DESCRIPTION: COMPLETE ECHOCARDIOGRAM Real-time transthoracic echocardiography with 2D, M-mode, spectral and color flow Doppler performed. QUALITY: Technically difficult due to poor acoustics. LEFT VENTRICLE: Normal chamber size. Normal left ventricular wall thickness. LV EF: Global left ventricular systolic function is difficult to assess hypokinesis of; visually estimated ejection fraction 55 to 60%. Unable to assess regional wall motion abnormalities. DIASTOLIC: Normal diastolic function. ATRIAL SEPTUM: Inadequately seen LEFT ATRIUM: Normal chamber size. RIGHT ATRIUM: Normal chamber size. RIGHT VENTRICLE: Normal chamber size. Normal right ventricular systolic function. TRICUSPID VALVE: Normal mobility and thickness. No stenosis with no regurgitation. MITRAL VALVE: Normal mobility and thickness. No evidence of mitral valve stenosis. There is no mitral annular calcification. No mitral regurgitation. AORTIC VALVE: Normal trileaflet appearance. No visible sclerosis. Normal leaflet mobility. No evidence of aortic valve stenosis. No aortic regurgitation. AORTIC ROOT: Normal diameter and appearance. PULMONIC VALVE: Not well visualized. No stenosis. No regurgitation. PERICARDIUM: No evidence of pericardial effusion. IVC: Not well visualized. CONCLUSION: 1. Global left ventricular systolic function is difficult to assess but appears preserved; visually estimated ejection fraction is 55 to 60% 2. Normal right ventricular size and systolic function 3. The left atrium is normal size 4. Normal diastolic function 5. No significant valvular abnormalities Adult Echocardiography Procedure Report Left Ventricle LVEDD (3.7 - 5.6 cm): 3.51 cm LVESD (2.2 - 4.0 cm): 2.40 cm LVIVS thickness (0.6 - 1.2 cm): 1.03 cm LVPW thickness (0.5 - 1.0 cm): 1.02 cm e': 0.16 m/s E - e': 5.11 LVOT Max Gradient: 3.11 mm[Hg] LVOT Area (cm2): 0.88 m/s Peak Velocity (LVOT): 0.88 m/s LVOT Diameter 2.04 cm Left Atrium LA Volume Index (2D A2C): 23.39 ml/m2 Left Atrium Systolic Dimension: 2.87 cm Mitral Valve MV E to A Ratio: 1.54 Mitral Valve A-Wave Peak Velocity: 0.52 m/s Mitral Valve E-Wave Peak Velocity: 0.81 m/s Right Ventricle Aorta AO Root Diam: 2.75 cm Aortic Valve AoV Area (Peak Jaskaran): 2.34 cm2, 2.34 cm2 Peak Velocity(Antegrade Flow): 1.23 m/s Peak Gradient(Antegrade Flow): 6.09 mm[Hg] Tricuspid Valve Pulmonic Valve Peak Gradient: 4.25 mm[Hg], 4.52 mm[Hg] Right Atrium Right Atrium Systolic Pressure: 36.41 ml, 36.41 ml Dictated by: Randy Mraie M.D. on 01/21/2025 at 09:56 Approved by: Randy Marie M.D. on 01/21/2025 at 09:58
== END 2025-01-20 06:50 | disposition home or self-care (01) ==
LOC: CARD 06:50
PROVIDERS: PCP Family Medicine; Visit Provider Physician Assistant
DX: R00.2 Palpitations (principal); R00.0 Tachycardia, unspecified
CPT/HCPCS: 93306

== ENCOUNTER 2025-01-27 08:14 | Outpatient (OUT) | payer BC, SELFPAY ==
--- OUTSIDE RECORDS SUMMARY | 2025-01-27 08:21 | XMS_ITS | CCD ---
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 Name Role Phone KEYLA LEYVA Attending Unavailable Unavailable Primary Care Provider UnavailRina Carpio Unavailable MD Zachary Mayes Primary Care Provider [phone] DO Paloma Vazquez Attending Provider [phone] MD Zachary Mayes Primary Care Provider [phone] MD Jackie Reardon Attending Provider DO aJck Woods Attending Provider Paloma Vazquez DO Unavailable [facility] Provider Jack Woods DO Attending Provider Unavailable Primary Care Provider Unavailcasimiro e Zachary Mayes Primary Care Unavailable Jackie Reardon Admitting Unavailable Jackie Reardon Attending Unavailable Peggy, Jack Attending Unavailable Brown, Zachary R Primary Care Unavailable Peggy, Jack Admitting Unavailable Peggy, Jack Attending Unavailable Peggy, Jack Admitting Unavailable BrownZachary R Primary Care Unavailable Peggy, Jack Attending [...] JACK Attending Unavailable PEGGY, JACK Attending Unavailable KAELYN, JAYLA Attending Unavailable PEGGY, JACK Attending Unavailable PEGGY, JACK Attending Unavailable PEGGY, JACK Attending Unavailable KAELYN JAYLA Attending Unavailable PEGGY, JACK Attending Unavailable KAY BENTLEY Attending Unavailable Allergies Allergy Classification Reported Allergen(s) Allergy Type Date of Onset Reaction(s) Facility (20 sources) Cephalexin; Translations: [CEPHALEXIN] Drug Allergy 9 Nausea And Vomiting [place] (16 sources) predniSONE; Translations: [PREDNISONE] Drug Allergy 9 Nausea And Vomiting [place] (20 sources) Ciprofloxacin; Translations: [CIPROFLOXACIN] Drug Allergy 9 Vomiting [facility] (20 sources) Prednisone Propensity to adverse reactions 9 Nausea And Vomiting [facility] (1 source) Cephalexin Drug Allergy 0 [facility] Repository (1 source) predniSONE Drug Allergy 0 [facility] Rep[facility] Medications Current Medications Medication [...] Active Start: 09-19-2024 take 1 tablet by ardha th every six hours as needed for nausea and nausea, then take 1 tablet by mouth every six hours as needed for nausea and nausea ondansetron (Zofran) 4 MG tablet Indications: Gastroesophageal reflux in ([facility]) , Nausea and vomiting during ([facility]) Take 1 tablet (4 mg) by mouth [...] needed for nausea or vomiting. Active PNV 02-hhga-cvfyvgjsjdfs-dha 29 mg iron-1 mg -350 mg comb pack,tablet DR,capsule DR (2 sources) take 1 tablet by mouth in the morning PNV 43-ukvq-hbtzgkmtrdrm-dha 29 mg iron-1 mg -350 mg comb pack,tablet DR,capsule DR Take 1 tablet by mouth in the morning. Active polysaccharide iron complex 391 mg oral capsule (5 sources) Start: 025 End: 026 take 1 capsule by mouth once daily iron polysaccharides (ProFe) 391.3 (180 Fe) MG capsule Indications: Second trimester ([facility]) Take 1 capsule (391.3 mg) by mouth Daily 30 capsule 6 01/07/2025 01/16/2025 Discontinued predniSONE 20 mg oral tablet (1 source) Start: 023 take 1 tablet by mouth every twelve hours prednisone 20 MG 1 tablet Orally BID for 5 Mar, Active Vit w/Fe-Methylfol- FA (PNV PO) (20 sources) Vit w/F i-Nyjuldhzb-GD (PNV PO) Active Progesterone 200 MG supposit ory (4 sources) Start: 025 End: 025 Progesterone 200 MG supposit ory Indications: History [...] of uterus, unspecified] Onset: Episodic Cardiac dysrhythmias (12 sources) Palpitations; Translations: [Tachycardia] Onset: 5 01-07-2025 Episodic Contraceptive and procreative management (4 [...] [25 weeks gestation of ] 01-16-2025 Episodic Residual codes; unclassified (2 sources) 26 weeks gestation of ; Translations: [26 weeks gestation of ] Onset: Episodic Syncope (4 sources) Syncope; Translations: [Syncope and collapse] Onset: 5 01-16-2025 Episodic Unclassified (1 source) Enlarged & Heterogeneous Bilateral Ovaries Onset: 07-01-202 5 Past or Other Problems Problem Classification Problem [...] Test Name Value Interpretation Reference Range Facility Office Visiton 01-24-2025 Follow-up visit [id number] Daphney Al 2000 F Date Provider Department Center 01/24/2025 [id number] BENTLEY [facility] Family History Problem Relation Age of Onset Hypertension Father Family Status - Relation Status Age at Mother Alive Father Alive Level of Service:61644 [place] OFFICE/OUTPATIENT NEW LOW MDM 30 MINUTES Reason for Visit and Comments: New Patient [632] - Patient is here today as a new patient to establish care with cariology Syncope [506] Palpitations [224278] 26 weeks [Other] Normal [facility] CA ECHO DOPPLER COMPLETEon 0 01-21-2025 [place] [address] Cardiology Report Signed Patient: DAPHNEY AL MR#: [id number] : 2000 Acct:[id number] Age/Sex: 24 / F ADM Date: 01/20/25 Loc: CARD Attending Dr: Jayla Art Ordering Physician: Jayla Art Date of Service: 01/20/25 Procedure(s): CA echo doppler complete Accession Number(s): [id number] cc: Jayla Art; Alberto Mayes M.D. Patient Name: DAPHNEY AL MR#: [id number] : 2000 Exam Date: 01/20/2025 Ordering Doctor: REKHA ART . ECHOCARDIOGRAM REPORT PROCEDURE: CA ECHO DOPPLER COMPLETE INDICATIONS: Palpitations, tachycardia, 26 weeks COMPARISON: None. DESCRIPTION: COMPLETE ECHOCARDIOGRAM Real-time transthoracic echocardiography with 2D, M-mode, spectral and color flow Doppler performed. QUALITY: Technically difficult due to poor acoustics. LEFT VENTRICLE: Normal chamber size. Normal left ventricular wall thickness. LV EF: Global left ventricular systolic function is difficult to assess hypokinesis of; visually estimated ejection fraction 55 to 60%. Unable to assess regional wall motion abnormalities. DIASTOLIC: Normal diastolic function. ATRIAL SEPTUM: Inadequately seen LEFT ATRIUM: Normal chamber size. RIGHT ATRIUM: Normal chamber size. RIGHT VENTRICLE: Normal chamber size. Normal right ventricular systolic function. TRICUSPID VALVE: Normal mobility and thickness. No stenosis with no regurgitation. MITRAL VALVE: Normal mobility and thickness. No evidence of mitral valve stenosis. There is no mitral annular calcification. No mitral regurgitation. AORTIC VALVE: Normal trileaflet appearance. No visible sclerosis. Normal leaflet mobility. No evidence of aortic valve stenosis. No aortic regurgitation. AORTIC ROOT: Normal diameter and appearance. PULMONIC VALVE: Not well visualized. No stenosis. No regurgitation. PERICARDIUM: No evidence of pericardial effusion. IVC: Not well visualized. CONCLUSION: 1. Global left ventricular systolic function is difficult to assess but appears preserved; visually estimated ejection fraction is 55 to 60% 2. Normal right ventricular size and systolic function 3. The left atrium is normal size 4. Normal diastolic function 5. No significant valvular abnormalities Adult Echocardiography Procedure Report Left Ventricle LVEDD (3.7 - 5.6 cm): 3.51 cm LVESD (2.2 - 4.0 cm): 2.40 cm LVIVS thickness (0.6 - 1.2 cm): 1.03 cm LVPW thickness (0.5 - 1.0 cm): 1.02 cm e': 0.16 m/s E - e': 5.11 LVOT Max Gradient: 3.11 mm[Hg] LVOT Area (cm2): 0.88 m/s Peak Velocity (LVOT): 0.88 m/s LVOT Diameter 2.04 cm Left Atrium LA Volume Index (2D A2C): 23.39 ml/m2 Left Atrium Systolic Dimension: 2.87 cm Mitral Valve MV E to A Ratio: 1.54 Mitral Valve A-Wave Peak Velocity: 0.52 m/s Mitral Valve E-Wave Peak Velocity: 0.81 m/s Right Ventricle Aorta AO Root Diam: 2.75 cm Aortic Valve AoV Area (Peak Jaskaran): 2.34 cm2, 2.34 cm2 Peak Velocity(Antegrade Flow): 1.23 m/s Peak Gradient(Antegrade Flow): 6.09 mm[Hg] Tricuspid Valve Pulmonic Valve Peak Gradient: 4.25 mm[Hg], 4.52 mm[Hg] Right Atrium Right Atrium Systolic Pressure: 36.41 ml, 36.41 ml Dictated by: Randy Marie M.D. on 01/21/2025 at 09:56 Approved by: Randy Marie M.D. on 01/21/2025 at 09:58 Dictated By: Randy Marie M.D. Signed By: 01/21/25958 DD/ 7 TD/TT: Ceramic Worker: [facility] Radiology, Radiologist, - 01/21/2025 [place] [address] Cardiology Report Signed Patient: DAPHNEY AL MR#: [id number] : 2000 Acct:[id number] Age/Sex: 24 / F ADM Date: 01/20/25 Loc: CARD Attending Dr: Jayla Art Ordering Physician: Jayla Art Date of Service: 01/20/25 Procedure(s): CA echo doppler complete Accession Number(s): [id number] cc: Jayla Art; Alberto Mayes M.D. Patient Name: DAPHNEY AL MR#: [id number] : 2000 Exam Date: 01/20/2025 Ordering Doctor: REKHA ART . ECHOCARDIOGRAM REPORT PROCEDURE: CA ECHO DOPPLER COMPLETE INDICATIONS: Palpitations, tachycardia, 26 weeks COMPARISON: None. DESCRIPTION: COMPLETE ECHOCARDIOGRAM Real-time transthoracic echocardiography with 2D, M-mode, spectral and color flow Doppler performed. QUALITY: Technically difficult due to poor acoustics. LEFT VENTRICLE: Normal chamber size. Normal left ventricular wall thickness. LV EF: Global left ventricular systolic function is difficult to assess hypokinesis of; visually estimated ejection fraction 55 to 60%. Unable to assess regional wall motion abnormalities. DIASTOLIC: Normal diastolic function. ATRIAL SEPTUM: Inadequately seen LEFT ATRIUM: Normal chamber size. RIGHT ATRIUM: Normal chamber size. RIGHT VENTRICLE: Normal chamber size. Normal right ventricular systolic function. TRICUSPID VALVE: Normal mobility and thickness. No stenosis with no regurgitation. MITRAL VALVE: Normal mobility and thickness. No evidence of mitral valve stenosis. There is no mitral annular calcification. No mitral regurgitation. AORTIC VALVE: Normal trileaflet appearance. No visible sclerosis. Normal leaflet mobility. No evidence of aortic valve stenosis. No aortic regurgitation. AORTIC ROOT: Normal diameter and appearance. PULMONIC VALVE: Not well visualized. No stenosis. No regurgitation. PERICARDIUM: No evidence of pericardial effusion. IVC: Not well visualized. CONCLUSION: 1. Global left ventricular systolic function is difficult to assess but appears preserved; visually estimated ejection fraction is 55 to 60% 2. Normal right ventricular size and systolic function 3. The left atrium is normal size 4. Normal diastolic function 5. No significant valvular abnormalities Adult Echocardiography Procedure Report Left Ventricle LVEDD (3.7 - 5.6 cm): 3.51 cm LVESD (2.2 - 4.0 cm): 2.40 cm LVIVS thickness (0.6 - 1.2 cm): 1.03 cm LVPW thickness (0.5 - 1.0 cm): 1.02 cm e': 0.16 m/s E - e': 5.11 LVOT Max Gradient: 3.11 mm[Hg] LVOT Area (cm2): 0.88 m/s Peak Velocity (LVOT): 0.88 m/s LVOT Diameter 2.04 cm Left Atrium LA Volume Index (2D A2C): 23.39 ml/m2 Left Atrium Systolic Dimension: 2.87 cm Mitral Valve MV E to A Ratio: 1.54 Mitral Valve A-Wave Peak Velocity: 0.52 m/s Mitral Valve E-Wave Peak Velocity: 0.81 m/s Right Ventricle Aorta AO Root Diam: 2.75 cm Aortic Valve AoV Area (Peak Jaskaran): 2.34 cm2, 2.34 cm2 Peak Velocity(Antegrade Flow): 1.23 m/s Peak Gradient(Antegrade Flow): 6.09 mm[Hg] Tricuspid Valve Pulmonic Valve Peak Gradient: 4.25 mm[Hg], 4.52 mm[Hg] Right Atrium Right Atrium Systolic Pressure: 36.41 ml, 36.41 ml Dictated by: Randy Marie M.D. on 01/21/2025 at 09:56 Approved by: Randy Marie M.D. on 01/21/2025 at 09:58 Dictated By: Randy Marie M.D. Signed By: 01/21/2559 DD/ 7 TD/TT: Ceramic Worker: [facility] Radiology Study observation (narrative) [facility] CA ECHO DOPPLER COMPLETEOrde red By: Radiologist Radiology on 01-21-2025 [facility] Work Phone: Urinalysis macro (dipstick) panel (U)on 01-16-2025 Bilirubin, UA Negative Negative - 4(70) +++ mg/dL [facility] Blood, UA Positive Negative - 50 Clarke/mcL [facility] Comment on above: 3+ Clarity, UA Clear [facility] re Color, UA Yellow [facility] Glucose, UA Negative Negative - 1999(110) ++++ mg/dL [facility] Interpretation and review of laboratory results Abnormal [facility] Ketones, UA Negative Negative - 160(16) ++++ mg/dL [facility] Leukocytes, UA Positive Negative - 500+++ Kamaljit/mcL [facility] Healthcare Comment on above: 2+ Nitrite, UA Negative Negative - Positive [facility] pH, UA 6 5 - 9 [facility] Protein, UA Positive Negative - 1999(20) ++++ mg/dL [facility] Spec Grav, UA 1.02 1 - 1.03 [facility] Urobilinogen, UA 1.0 0.2 - 12 mg/dL [facility] Urinalysis macro (dipstick) panel (U)on 01-07-2025 Bilirubin, UA Negative Negative - 4(70) +++ mg/dL [facility] Blood, UA Negative Negative - 50 Clarke/mcL [facility] Clarity, UA Clear [facility] re Color, UA Yellow [facility] Glucose, UA Negative Negative - 1999(110) ++++ mg/dL [facility] Interpretation and review of laboratory results Abnormal [facility] Ketones, UA Negative Negative - 160(16) ++++ mg/dL [facility] Leukocytes, UA Positive Negative - 500+++ Kamaljit/mcL [facility] Comment on above: 3+ Nitrite, UA Negative Negative - Positive [facility] pH, UA 6.5 5 - 9 [facility] Protein, UA Negative Negative - 1999(20) ++++ mg/dL [facility] Spec Grav, UA 1.01 1 - 1.03 [facility] Urobilinogen, UA 0.2 0.2 - 12 mg/dL [facility] Urinalysis macro (dipstick) panel (U)on 12-31-2024 Bilirubin, UA Negative Negative - 4(70) +++ mg/dL [facility] Blood, UA Negative Negative - 50 Clarke/mcL [facility] Clarity, UA Clear [facility] Color, UA Yellow [facility] Glucose, UA Negative Negative - 1999(110) ++++ mg/dL [facility] Interpretation and review of laboratory results Abnormal [facility] Ketones, UA Negative Negative - 160(16) ++++ mg/dL [facility] Leukocytes, UA Negative Negative - 500+++ Kamaljit/mcL [facility] Nitrite, UA Negative Negative - Positive [facility] pH, UA 6 5 - 9 [facility] Protein, UA Negative Negative - 1999(20) ++++ mg/dL [facility] Spec Grav, UA 1.01 1 - 1.03 [facility] care Urobilinogen, UA 1.0 0.2 - 12 mg/dL [facility] Urinalysis macro (dipstick) panel (U)on 12-03-2024 Bilirubin, UA Negative Negative - 4(70) +++ mg/dL [facility] Blood, UA Negative Negative - 50 Clarke/mcL [facility] Clarity, UA Clear [facility] Color, UA Yellow [facility] Glucose, UA Negative Negative - 1999(110) ++++ mg/dL [facility] Interpretation and review of laboratory results Abnormal [facility] Ketones, UA Negative Negative - 160(16) ++++ mg/dL [facility] Leukocytes, UA Positive Negative - 500+++ Kamaljit/mcL [facility] Comment on above: Small Nitrite, UA Negative Negative - Positive [facility] pH, UA 7 5 - 9 [facility] Protein, UA Negative Negative - 1999(20) ++++ mg/dL [facility] Spec Grav, UA 1.01 1 - 1.03 [facility] Urobilinogen, UA 1.0 0.2 - 12 mg/dL [facility] Daily Caller e Free Cell DNA (Non-Pro Medica Send Out)on 11-12-2024 [facility] PATHOLOGY REQUEST FOR LAB CO RPon 11-12-2024 PATHOLOGY REQUEST FOR LAB GIA [facility] Comment on above: See report. Scanned copy available in EMR. SKIN TAG CHELSEY [facility] IGP,APTIMA HPV,AGE GDLNon AGE GDLN ACOG TESTING Note . [facility] Comment on above: TESTS RESULT FLAG UN ITS REF RANGE LAB Clinician Provided Cytology Information Source.............Cervix No. of containers..01 ThinPrep Vial Age Algo ACOG Nery... - 01 FLAG LEGEND: L-Low Normal,H-High Normal,LL-Alert Low,HH-Alert High <-Panic Low,>-Panic High,A-Abnormal,AA-Critical Abnormal Performed at: 01 =G Laurie S[address]chez [address] [place] [address] Gypsy Mtz MD, IGP, RFX APTIMA HPV ASCU Note . [facility] Comment on above: TESTS RESULT FLAG UN ITS REF RANGE LAB DIAGNOSIS: 02 NEGATIVE FOR INTRAEPITHELIAL LESION OR MALIGNANCY. THIS SPECIMEN WAS RESCREENED PART OF OUR MANAGER MAINTENANCE PROGRAM. Specimen adequacy: 02 Satisfactory for evaluation. Endocervical and/or squamous metaplastic cells (endocervical component) are present. Performed by: 02 Felicity Rosen, Assault Amphibious Vehicle Officer ([facility]) QC reviewed by: 02 Esme Mahoney, Assault Amphibious Vehicle Officer ([facility]) . 02 Note: Note 02 The Pap [...] Low,>-Panic High,A-Abnormal,AA-Critical Abnormal Performed at: [address] [facility] [address] [place] [address] Gypsy Mtz MD, Performed at: =G - [facility] [address] [id number] Sleeve Wheel Maker: Gypsy Mtz MD, Phone: [phone] Performed at: [facility] [address] [id number] Sleeve Wheel Maker: Gypsy Mtz MD, Phone: [phone] SPATULA-ALONE CERVIX [facility] RECURRENT VAGINITIS (HTRX)on 11-06-2024 ATOPOBIUM VAGINAE 0 [facility] ATOPOBIUM VAGINAE Not detected [facility] BVAB 2,3 (BACTERIAL VAGINOSIS ASSOCIATED BACTERIA 2, 3); MOBILUNCUS SPP 0 [facility] BVAB 2,3 (BACTERIAL VAGINOSIS ASSOCIATED BACTERIA 2, 3); MOBILUNCUS SPP Not detected [facility] LINDA ALBICANS, PARAPSILOSIS, TROPICALIS 0 [facility] LINDA ALBICANS, PARAPSILOSIS, TROPICALIS Not detected [facility] LINDA GLABRATA 0 [facility] LINDA GLABRATA Not detected [facility] LINDA KRUSEI 0 [facility] LINDA KRUSEI Not detected [facility] CHLAMYDIA TRACHOMATIS 0 [facility] CHLAMYDIA TRACHOMATIS Not detected [facility] GARDNERELLA VAGINALIS 0 [facility] GARDNERELLA VAGINALIS Not detected [facility] MEGASPHAERA (TYPES 1, 2) 0 [facility] MEGASPHAERA (TYPES 1, 2) Not detected [facility] MYCOPLASMA GENITALIUM 0 [facility] MYCOPLASMA GENITALIUM Not detected [facility] NEISSERIA GONORRHOEAE 0 [facility] NEISSERIA GONORRHOEAE Not detected [facility] TRICHOMONAS VAGINALIS 0 [facility] TRICHOMONAS VAGINALIS Not detected [facility] Pathology Request for Lab Co rpon 11-05-2024 Pathology Request for Lab Gia Normal [facility] Comment on above: Order Comment: SKIN TAG Result Comment: See report. Scanned copy available in EMR. PERFORMED BY: [address] [place] [address] PATHOLOGIST ATG ARCHITECT JOSUÉ VALENZUELA M.D. Performed By: #### P JOO #### [facility] , Urinalysis macro (dipstick) panel (U)on 11-05-2024 Bilirubin, UA Negative Negative - 4(70) +++ mg/dL [facility] Blood, UA Negative Negative - 50 Clarke/mcL [facility] Clarity, UA Clear [facility] Color, UA Yellow [facility] Glucose, UA Negative Negative - 2000(110) ++++ mg/dL [facility] Interpretation and review of laboratory results Normal [facility] Ketones, UA Negative Negative - 160(16) ++++ mg/dL [facility] Leukocytes, UA Negative Negative - 500+++ Kamaljit/mcL [facility] Nitrite, UA Negative Negative - Positive [facility] pH, UA 5.5 5 - 9 [facility] Health[facility] e Protein, UA Negative Negative - 1999(20) ++++ mg/dL [facility] Spec Grav, UA 1.02 1 - 1.03 [facility] Urobilinogen, UA 1.0 0.2 - 12 mg/dL [facility] Urinalysis macro (dipstick) panel (U)on 10-08-2024 Bilirubin, UA Negative Negative - 4(70) +++ mg/dL [facility] Blood, UA Negative Negative - 50 Clarke/mcL [facility] Clarity, UA Clear [facility] re Color, UA Yellow [facility] e Glucose, UA Negative Negative - 1999(110) ++++ mg/dL [facility] Interpretation and review of laboratory results Abnormal [facility] Ketones, UA Negative Negative - 160(16) ++++ mg/dL [facility] Leukocytes, UA Trace Negative - 500+++ Kamaljit/mcL [facility] Nitrite, UA Negative Negative - Positive [facility] pH, UA 6 5 - 9 [facility] Protein, UA Negative Negative - 1999(20) ++++ mg/dL [facility] Spec Grav, UA 1.02 1 - 1.03 [facility] Urobilinogen, UA 0.2 0.2 - 12 mg/dL [facility] MLR HEMOGLOBIN A1Con 025 Glucose [Mass/Vol] 100 mg/dL [facility]althcare HbA1c (Bld) [Mass fraction] 5.1 % 4.5 - 6.2 % [facility] Comment on above: ADA RECOMMENDED LIMI T 4.0 - 6.0 ADA THERAPEUTIC TARGET < 7.0 ACTION SUGGESTED > 7.0 [facility] HCG ( test) Ql (U)o n 09-19-2024 Interpretation and review of laboratory results Abnormal [facility] Preg Test, Ur Positive Negative [facility] US OB TRANSVAGINALon 05-08-2 025 US OB TRANSVAGINAL EXAM: US OB [...] II, MD, PHD at 22-Sep-2024 08:21:31 PM [facility] [employer] Normal Not Available Comment on above: Order Comment: US OB TRANSVAGINAL No LMP recorded. Urinalysis macro (dipstick) panel (U)on 09-19-2024 Bilirubin, UA Negative Negative - 4(70) +++ mg/dL [facility] Blood, UA Negative Negative - 50 Clarke/mcL [facility] Clarity, UA Clear [facility] Healthca re Color, UA Yellow [facility] e Glucose, UA Negative Negative - 1999(110) ++++ mg/dL [facility] Interpretation and review of laboratory results Normal [facility] Ketones, UA Negative Negative - 160(16) ++++ mg/dL [facility] Leukocytes, UA Negative Negative - 500+++ Kamaljit/mcL [facility] Nitrite, UA Negative Negative - Positive [facility] pH, UA 7 5 - 9 [facility] e Protein, UA Negative Negative - 1999(20) ++++ mg/dL [facility] Spec Grav, UA 1.02 1 - 1.03 [facility] Urobilinogen, UA 0.2 0.2 - 12 mg/dL [facility] US OB TRANSVAGINALon 025 US [...] II, MD, PHD at 28-Aug-2024 11:25:24 PM [facility] Normal Not Available Comment on above: Order Comment: US OB TRANSVAGINAL No LMP recorded. [facility] PREG QUANT HCGon 025 HCG QUANTITATIVE 2576 mIU/mL [facility] Comment on above: 5-50 0.2-1 WEEK 50-500 1-2 WEEKS 100-5,000 2-3 WEEKS 500-10,000 3-4 WEEKS 1,000-50,000 4-5 WEEKS 10,000-100,000 5-6 WEEKS 15,000-200,000 6-8 WEEKS 10,000-100,000 2-3 MONTHS [facility] TBH PREG QUANT HCGon 025 HCG QUANTITATIVE 964 mIU/mL [facility] Comment on above: 5-50 0.2-1 WEEK 50-500 1-2 WEEKS 100-5,000 2-3 WEEKS 500-10,000 3-4 WEEKS 1,000-50,000 4-5 WEEKS 10,000-100,000 5-6 WEEKS 15,000-200,000 6-8 WEEKS 10,000-100,000 2-[address] [facility] TBH PREG QUANT HCGon 025 HCG QUANTITATIVE 513 mIU/mL [facility] Comment on above: 5-50 0.2-1 WEEK 50-500 1-2 WEEKS 100-5,000 2-3 WEEKS 500-10,000 3-4 WEEKS 1,000-50,000 4-5 WEEKS 10,000-100,000 5-6 WEEKS 15,000-200,000 6-8 WEEKS 10,000-100,000 2-[address] [facility] [facility] PREG QUANT HCGon 025 HCG QUANTITATIVE 197 mIU/mL [facility] Comment on above: 5-50 0.2-1 WEEK 50-500 1-2 WEEKS 100-5,000 2-3 WEEKS 500-10,000 3-4 WEEKS 1,000-50,000 4-5 WEEKS 10,000-100,000 5-6 WEEKS 15,000-200,000 6-8 WEEKS 10,000-100,000 2-3 MONTHS [facility] PREG QUANT HCGon 025 HCG QUANTITATIVE 42 mIU/mL [facility] Comment on above: 5-50 0.2-1 WEEK 50-500 1-2 WEEKS 100-5,000 2-3 WEEKS 500-10,000 3-4 WEEKS 1,000-50,000 4-5 WEEKS 10,000-100,000 5-6 WEEKS 15,000-200,000 6-8 WEEKS 10,000-100,000 2-3 [facility] PREG QUANT HCGon 025 HCG QUANTITATIVE 7 mIU/mL [facility] Comment on above: 5-50 0.2-1 WEEK 50-500 1-2 WEEKS 100-5,000 2-3 WEEKS 500-10,000 3-4 WEEKS 1,000-50,000 4-5 WEEKS 10,000-100,000 5-6 WEEKS 15,000-200,000 6-8 WEEKS 10,000-100,000 2-3 [facility] PROGESTERONEon 5 PROGESTERONE 26.8 ng/mL . [facility] are Comment on above: Follicular phase 0.1 - 0.9 Luteal phase 1.8 - 23.9 Ovulation phase 0.1 - 12.0 First trimester 11.0 - 44.3 Second trimester 25.4 - 83.3 Third trimester 58.7 - 214.0 Postmenopausal 0.0 - 0.1 Performed at: [facility] [employer] [id number] Sleeve Wheel Maker: Jordin Rao PhD, Phone: [phone] [facility] e ALL PROGESTERONEon 4 PROGESTERONE 59.6 ng/mL . [facility] are Comment on above: Follicular phase 0.1 - 0.9 Luteal phase 1.8 - 23.9 Ovulation phase 0.1 - 12.0 First trimester 11.0 - 44.3 Second trimester 25.4 - 83.3 Third trimester 58.7 - 214.0 Postmenopausal 0.0 - 0.1 Performed at: [facility] [employer] [id number] Sleeve Wheel Maker: Jordin Rao PhD, Phone: [phone] [facility] TB[facility] PREG QUANT HCGon 024 HCG QUANTITATIVE <1 mIU/mL [facility] Comment on above: 5-50 0.2-1 WEEK 50-500 1-2 WEEKS 100-5,000 2-3 WEEKS 500-10,000 3-4 WEEKS 1,000-50,000 4-5 WEEKS 10,000-100,000 5-6 WEEKS 15,000-200,000 6-8 WEEKS 10,000-100,000 2-3 [facility] [employer] e ALL PROGESTERONEon 4 PROGESTERONE 17.9 ng/mL . [facility] are Comment on above: Follicular phase 0.1 - 0.9 Luteal phase 1.8 - 23.9 Ovulation phase 0.1 - 12.0 First trimester 11.0 - 44.3 Second trimester 25.4 - 83.3 Third trimester 58.7 - 214.0 Postmenopausal 0.0 - 0.1 Performed at: [facility] [address] [id number] Sleeve Wheel Maker: Jordin Rao PhD, Phone: [phone] [facility] [employer] e MLR HEMOGLOBIN A1Con 024 Glucose [Mass/Vol] 88 mg/dL [facility] HbA1c (Bld) [Mass fraction] 4.7 % 4.5 - 6.2 % [facility] Comment on above: ADA RECOMMENDED LIMI T 4.0 - 6.0 ADA THERAPEUTIC TARGET < 7.0 ACTION SUGGESTED > 7.0 [facility] [employer] [employer] Choriogonadotropin.beta subu nit [Units/volume] in Serum or PlasmaOrdered By: Jack Woods on 01-05-2024 HCG.beta subunit Qn 4.96 m[IU]/mL [facility] Comment on above: Approximate Approxim [...] 10,000-100,000 6-8 15,000-200,000 8-12 10,000-100,000 PERFORMED BY: [place] [address] PATHOLOGIST ATG ARCHITECT TO ANAYA M.D. Performed By: #### H CGQNT #### [address] [address] Choriogonadotropin.beta subu nit [Units/volume] in Serum or PlasmaOrdered By: Jack Woods on 12-28-2023 HCG.beta subunit Qn 108.32 m[IU]/mL [facility] Comment on above: Approximate Approxim ate hCG Gestational Age Range (mIU/ml) (weeks)0.2-1 5-50 1-2 50-500 2-3 100-5,000 3-4 500-10,000 4-5 1,000-50,000 5-6 10,000-100,000 6-8 15,000-200,000 8-12 10,000-100,000 HCG,Quantitativeon 4 HCG,Quantitative 108.32 m[iU]/mL Normal [facility] Comment on above: Result Comment: Appr oximate Approximate hCG Gestational Age Range (mIU/ml) (weeks) 0.2-1 5-50 1-2 50-500 2-3 100-5,000 3-4 500-10,000 4-5 1,000-50,000 5-6 10,000-100,000 6-8 15,000-200,000 8-12 10,000-100,000 PERFORMED BY: [address] [address] PATHOLOGIST ATG ARCHITECT JIANLAN SUN M.D. Performed By: #### H CGQNT #### [facility] [address] [place], [place] [id number] [facility] Choriogonadotropin.beta subu nit [Units/volume] in Serum or PlasmaOrdered By: Jack Woods on 12-22-2023 HCG.beta subunit Qn 1030.88 m[IU]/mL [facility] Comment on above: Approximate Approxim ate hCG Gestational Age Range (mIU/ml) (weeks)0.2-1 5-50 1-2 50-500 2-3 100-5,000 3-4 500-10,000 4-5 1,000-50,000 5-6 10,000-100,000 6-8 15,000-200,000 8-12 10,000-100,000 HCG,Quantitativeon HCG,Quantitative 1030.88 m[iU]/mL Normal [facility] Comment on above: Result Comment: Appr oximate Approximate hCG Gestational Age Range (mIU/ml) (weeks) 0.2-1 5-50 1-2 50-500 2-3 100-5,000 3-4 500-10,000 4-5 1,000-50,000 5-6 10,000-100,000 6-8 15,000-200,000 8-12 10,000-100,000 PERFORMED BY: [place] [address] PATHOLOGIST ATG ARCHITECT TO ANAYA M.D. Performed By: #### H CGQNT #### [facility] [address] [place], [place] [id number] [facility] Choriogonadotropin.beta subu nit [Units/volume] in Serum or PlasmaOrdered By: Jack Woods on 12-20-2023 HCG.beta subunit Qn 988.06 m[IU]/mL [facility] Comment on above: Approximate Approxim ate hCG Gestational Age Range (mIU/ml) (weeks)0.2-1 5-50 1-2 50-500 2-3 100-5,000 3-4 500-10,000 4-5 1,000-50,000 5-6 10,000-100,000 6-8 15,000-200,000 8-12 10,000-100,000 HCG,Quantitativeon 4 HCG,Quantitative 988.06 m[iU]/mL Normal [facility] Comment on above: Result Comment: Appr oximate Approximate hCG Gestational Age Range (mIU/ml) (weeks) 0.2-1 5-50 1-2 50-500 2-3 100-5,000 3-4 500-10,000 4-5 1,000-50,000 5-6 10,000-100,000 6-8 15,000-200,000 8-12 10,000-100,000 PERFORMED BY: [place] [address] PATHOLOGIST ATG ARCHITECT TO ANAYA M.D. Performed By: #### H CGQNT #### [address] US OB transvaginalon 024 US OB transvaginal [facility] Main [place] [address] [place] [address] Ultrasound Report Signed Patient: Daphney Al MR#: [id number] : 2000 Acct:[id number] Age/Sex: 23 / F ADM Date: 12/20/23 Loc: Room: Type: [facility] Attending Dr: Jack Woods DO Ordering Provider: Jack Woods Date of Service: 12/20/23 US/US OB <= 14 weeks fetus: N92.6 ([id number]) US/US OB transvaginal: N92.6 Copies to: Jack [...] Lisa Rojas M.D.12/20/2023 5:46 PM Dictation Location: [place] [address] Tech: Deb Real Transcribed By: FLETCHER 12/20/23 174 Dictated By: Lisa Rojas MD 12/20/23 1739 Signed By: 12/20/23 174 Normal [facility] Choriogonadotropin.beta subu nit [Units/volume] in Serum or PlasmaOrdered By: Jack Woods on 12-09-2023 HCG.beta subunit Qn 295.86 m[IU]/mL [facility] Comment on above: Approximate Approxim ate hCG Gestational Age Range (mIU/ml) (weeks)0.2-1 5-50 1-2 50-500 2-3 100-5,000 3-4 500-10,000 4-5 1,000-50,000 5-6 10,000-100,000 6-8 15,000-200,000 8-12 10,000-100,000 HCG,Quantitativeon 4 HCG,Quantitative 295.86 m[iU]/mL Normal [facility] Comment on above: Result Comment: Appr oximate Approximate hCG Gestational Age Range (mIU/ml) (weeks) 0.2-1 5-50 1-2 50-500 2-3 100-5,000 3-4 500-10,000 4-5 1,000-50,000 5-6 10,000-100,000 6-8 15,000-200,000 8-12 10,000-100,000 PERFORMED BY: [place] [address] PATHOLOGIST ATG ARCHITECT TO ANAYA M.D. Performed By: #### H CGQNT #### [address] [address] [facility] Choriogonadotropin.beta subu nit [Units/volume] in Serum or PlasmaOrdered By: Jack Woods on 12-07-2023 HCG.beta subunit Qn 135.80 m[IU]/mL [facility] Comment on above: Approximate Approxim ate hCG Gestational Age Range (mIU/ml) (weeks)0.2-1 5-50 1-2 50-500 2-3 100-5,000 3-4 500-10,000 4-5 1,000-50,000 5-6 10,000-100,000 6-8 15,000-200,000 8-12 10,000-100,000 HCG,Quantitativeon 4 HCG,Quantitative 135.80 m[iU]/mL Normal [facility] Comment on above: Result Comment: Appr oximate Approximate hCG Gestational Age Range (mIU/ml) (weeks) 0.2-1 5-50 1-2 50-500 2-3 100-5,000 3-4 500-10,000 4-5 1,000-50,000 5-6 10,000-100,000 6-8 15,000-200,000 8-12 10,000-100,000 PERFORMED BY: [address] [address] PATHOLOGIST ATG ARCHITECT TO ANAYA M.D. Performed By: #### H CGQNT #### [address] [address] [facility] Choriogonadotropin.beta subu nit [Units/volume] in Serum or PlasmaOrdered By: AMBAR Reardon on 12-05-2023 HCG.beta subunit Qn 69.85 m[IU]/mL [facility] Comment on above: Approximate Approxim ate hCG Gestational Age Range (mIU/ml) (weeks)0.2-1 5-50 1-2 50-500 2-3 100-5,000 3-4 500-10,000 4-5 1,000-50,000 5-6 10,000-100,000 6-8 15,000-200,000 8-12 10,000-100,000 HCG,Quantitativeon 4 HCG,Quantitative 69.85 m[iU]/mL Normal [facility] Comment on above: Result Comment: Appr oximate Approximate hCG Gestational Age Range (mIU/ml) (weeks) 0.2-1 5-50 1-2 50-500 2-3 100-5,000 3-4 500-10,000 4-5 1,000-50,000 5-6 10,000-100,000 6-8 15,000-200,000 8-12 10,000-100,000 PERFORMED BY: [place] [address] PATHOLOGIST ATG ARCHITECT TO ANAYA M.D. Performed By: #### H CGQNT #### [place] [id number] [facility] Progesteroneon 12-05-2023 Progesterone 26.5 ng/mL Normal . [facility] Comment on above: Result Comment: Foll icular phase 0.1 - 0.9 Luteal phase 1.8 - 23.9 Ovulation phase 0.1 - 12.0 First trimester 11.0 - 44.3 Second trimester 25.4 - 83.3 Third trimester 58.7 - 214.0 Postmenopausal 0.0 - 0.1 Performed at: [address] [id number] Sleeve Wheel Maker: Jordin Rao PhD, Phone: [phone] PERFORMED BY: [facility] [place] [place] [address] PATHOLOGIST ATG ARCHITECT TO ANAYA M.D. Performed By: #### P JOO #### [facility] , Serum or plasma progesterone measurement (mass/volume)Ordered By: Jack Woods on 12-05-2023 Progesterone [Mass/Vol] 26.5 ng/mL . [facility] Comment on above: Follicular phase 0.1 - 0.9 Luteal phase 1.8 - 23.9 Ovulation phase 0.1 - 12.0 First trimester 11.0 - 44.3 Second trimester 25.4 - 83.3 Third trimester 58.7 - 214.0 Postmenopausal 0.0 - 0.1Performed at: [facility] [address] [id number] Director: Jordin Rao PhD, Phone: [phone] Choriogonadotropin.beta subu nit [Units/volume] in Serum or PlasmaOrdered By: AMBAR Reardon on 12-02-2023 HCG.beta subunit Qn 12.64 m[IU]/mL [facility] Comment on above: Approximate Approxim ate hCG Gestational Age Range (mIU/ml) (weeks)0.2-1 5-50 1-2 50-500 2-3 100-5,000 3-4 500-10,000 4-5 1,000-50,000 5-6 10,000-100,000 6-8 15,000-200,000 8-12 10,000-100,000 HCG,Quantitativeon 4 HCG,Quantitative 12.64 m[iU]/mL Normal [facility] Comment on above: Result Comment: Appr oximate Approximate hCG Gestational Age Range (mIU/ml) (weeks) 0.2-1 5-50 1-2 50-500 2-3 100-5,000 3-4 500-10,000 4-5 1,000-50,000 5-6 10,000-100,000 6-8 15,000-200,000 8-12 10,000-100,000 PERFORMED BY: [facility] [address] [place] [address] PATHOLOGIST ATG ARCHITECT TO ANAYA M.D. Performed By: #### H CGQNT #### [facility] [address] [place] [address] [facility] Operative Reporton 3 Operative Report [id number] Normal [facility] Quick Strepon 03-21-2023 S. pyogenes Org specific cx Ql (Throat) Negative [employer] Engine Other Quick Strep [facility] F.8 Interactive Other CBC Auto Differentialon 01-14 Basophils (Bld) [#/Vol] 0.00 10*3/uL [place] Basophils/100 WBC (Bld) 0 % 0 - 2 % [place] Differential Type YES [place] Eosinophils (Bld) [#/Vol] 0.20 10*3/uL [place] Eosinophils/100 WBC (Bld) 2 % 0 - 5 % [place] Erythrocyte distribution width (RBC) [Ratio] 12.6 % 12.1 - 15.2 % [place] Hematocrit (Bld) [Volume fraction] 39.8 % 36 - 46 % [place] Hemoglobin (Bld) [Mass/Vol] 13.8 g/dL 12 - 16 g/dL [place] Interpretation and review of laboratory results Abnormal [place] Lymphocytes (Bld) [#/Vol] 1.70 10*3/uL [place] Lymphocytes/100 WBC (Bld) 14 % Low 15 - 40 % [place] MCH (RBC) [Entitic mass] 31.5 pg 26 - 34 pg [place] MCHC (RBC) [Mass/Vol] 34.6 g/dL 31 - 37 g/dL [place] MCV (RBC) [Entitic vol] 91.2 fL 80 - 100 fL [place] Monocytes (Bld) [#/Vol] 0.60 10*3/uL [place] Monocytes/100 WBC (Bld) 5 % 4 - 8 % [place] Platelet mean volume (Bld) [Entitic vol] NOT REPORTED 6 - 12 fL [place], [place] Platelets (Bld) [#/Vol] NOT REPORTED [place] Platelets (Bld) [#/Vol] 287 10*3/uL [place] RBC (Bld) [#/Vol] 4.37 10*6/uL 4 - 5.2 m/uL [place], [place] RBC morphology finding Nom (Bld) NOT REPORTED [place] Segmented neutrophils/100 WBC (Bld) 79 % High 47 - 75 % [place] Segs Absolute 9.50 [place] WBC (Bld) [#/Vol] 12.0 10*3/uL [place] WBC (Bld) [#/Vol] NOT REPORTED per 100 WBC [place], [place] WBC Morphology NOT REPORTED [place], [place] CBC with Diffon 02-01-2019 Abs. Basophil 0.00 k/uL Normal 0.0-0.2 [facility] Comment on above: Performed By: #### C P, CDP #### [facility] [address] [place] [address] Sleeve Wheel Maker: Jonathan Chisholm MD Abs.Neutrophil (Seg) 9.50 k/uL [place] 2.5-7.0 [facility] Comment on above: Performed By: #### C P, CDP #### [facility] [address] [place] [address] Sleeve Wheel Maker: Jonathan Chisholm MD Auto Diff Performed YES Normal [facility] Comment on above: Performed By: #### C P, CDP #### [facility] [address] [place] [address] Sleeve Wheel Maker: Jonathan Chisholm MD Basophils/100 WBC (Bld) 0 % Normal 0-2 [facility] Comment on above: Performed By: #### C P, CDP #### [facility] [address] [place] [address] Sleeve Wheel Maker: Jonathan Chisholm MD Eosinophils (Bld) [#/Vol] 0.20 10*3/uL Normal 0.0-0.4 [facility] Comment on above: Performed By: #### C P, CDP #### [facility] [address] [place] [address] Sleeve Wheel Maker: Jonathan Chisholm MD Eosinophils/100 WBC (Bld) 2 % Normal 0-5 [facility] Comment on above: Performed By: #### C P, CDP #### [facility] [address] [place] [address] Sleeve Wheel Maker: Jonathan Chisholm MD Erythrocyte distribution width (RBC) [Ratio] 12.6 % Normal 12.1-15.2 [facility] Comment on above: Performed By: #### C P, CDP #### [facility] [address] [place] [address] Sleeve Wheel Maker: Jonathan Chisholm MD Hematocrit (Bld) [Volume fraction] 39.8 % Normal 36-46 [facility] Comment on above: Performed By: #### C P, CDP #### [facility] [address] [place] [address] Sleeve Wheel Maker: Jonathan Chisholm MD Hemoglobin (Bld) [Mass/Vol] 13.8 g/dL Normal 12.0-16.0 [facility] Comment on above: Performed By: #### C P, CDP #### [facility] [address] [place] [address] Sleeve Wheel Maker: Jonathan Chisholm MD Lymphocytes (Bld) [#/Vol] 1.70 10*3/uL Normal 1.2-5.2 [facility] Comment on above: Performed By: #### C P, CDP #### [facility] [address] [place] [address] Sleeve Wheel Maker: Jonathan Chisholm MD Lymphocytes/100 WBC (Bld) 14 % Low 15-40 [facility] Comment on above: Performed By: #### C P, CDP #### [facility] [address] [place], [place] [phone] Sleeve Wheel Maker: Jonathan Chisholm MD MCH (RBC) [Entitic mass] 31.5 pg Normal 26-34 [facility] Comment on above: Performed By: #### C P, CDP #### [facility] [address] [place] [address] Sleeve Wheel Maker: Jonathan Chisholm MD MCHC (RBC) [Mass/Vol] 34.6 g/dL Normal 31-37 [facility] Comment on above: Performed By: #### C P, CDP #### [facility] [address] [place] [address] Sleeve Wheel Maker: Jonathan Chisholm MD MCV (RBC) [Entitic vol] 91.2 fL Normal 80-100 [facility] Comment on above: Performed By: #### C P, CDP #### [facility] [address] [place] [address] Sleeve Wheel Maker: Jonathan Chisholm MD Monocytes (Bld) [#/Vol] 0.60 10*3/uL Normal 0.0-1.0 [facility] Comment on above: Performed By: #### C P, CDP #### [facility] [address] [place], [place] [phone] Sleeve Wheel Maker: Jonathan Chisholm MD Monocytes/100 WBC (Bld) 5 % Normal 4-8 [facility] Comment on above: Performed By: #### C P, CDP #### [facility] [address] [place] [address] Sleeve Wheel Maker: Jonathan Chisholm MD Neutrophil (Seg) 79 % High 47-75 [facility] Comment on above: Performed By: #### C P, CDP #### [facility] [address] [place] [address] Sleeve Wheel Maker: Jonathan Chisholm MD Platelets (Bld) [#/Vol] 287 10*3/uL Normal 140-450 [facility] Comment on above: Performed By: #### C P, CDP #### [facility] [address] [place] [address] Sleeve Wheel Maker: Jonathan Chisholm MD RBC (Bld) [#/Vol] 4.37 10*6/uL Normal 4.0-5.2 [facility] Comment on above: Performed By: #### C P, CDP #### [facility] [address] [place] [address] Sleeve Wheel Maker: Jonathan Chisholm MD WBC (Bld) [#/Vol] 12.0 10*3/uL Normal 4.5-13.5 [facility] Comment on above: Performed By: #### C P, CDP #### [facility] [address] [place] [address] Sleeve Wheel Maker: Jonathan Chisholm MD Abs.Imm.Granulocyte NOT REPORTED Normal 0.00-0.30 [facility] Comment on above: Performed By: #### C P, CDP #### [facility] [address] [place], [place] [phone] ([phone] Sleeve Wheel Maker: Jonathan Chisholm MD Immature granulocytes (Bld) [#/Vol] NOT REPORTED Normal 0 [facility] Comment on above: Performed By: #### C P, CDP #### [facility] [address] [place] [address] (316) Sleeve Wheel Maker: Jonathan Chisholm MD NRBC Automated NOT REPORTED Normal [facility] Comment on above: Performed By: #### C P, CDP #### [facility] [address] [place] [address] Sleeve Wheel Maker: Jonathan Chisholm MD Platelet mean volume (Bld) [Entitic vol] NOT REPORTED Normal 6.0-12.0 [facility] Comment on above: Performed By: #### C P, CDP #### [facility] [address] [place] [address] Sleeve Wheel Maker: Jonathan Chisholm MD Platelets (Bld) [#/Vol] NOT REPORTED Normal [facility] Comment on above: Performed By: #### C P, CDP #### [facility] [address] [place] [address] Sleeve Wheel Maker: Jonathan Chisholm MD RBC morphology finding Nom (Bld) NOT REPORTED Normal [facility] Comment on above: Performed By: #### C P, CDP #### [facility] [address] [place] [address] Sleeve Wheel Maker: Jonathan Chisholm MD WBC Morphology NOT REPORTED Normal [facility] Comment on above: Performed By: #### C P, CDP #### [facility] [address] [place] [address] Sleeve Wheel Maker: Jonathan Chisholm MD Comp Metabolic Profon 2018 (cont.) Normal [facility] Comment on above: Result Comment: Aver age GFR for 20-29 years old: 116 mL/min/1.73sq m Chronic Kidney Disease: <60 mL/min/1.73sq m Kidney failure: <15 mL/min/1.73sq m eGFR calculated using average adult body mass. Additional eGFR calculator available at: http:// /multiple_crcl_2012.htm Performed By: #### C P, CDP #### [facility] [address] [place] [address] Sleeve Wheel Maker: Jonathan Chisholm MD Albumin [Mass/Vol] 4.1 g/dL Normal 3.5-5.2 [facility] Comment on above: Performed By: #### C P, CDP #### [facility] [address] [place], [place] [phone] Sleeve Wheel Maker: Jonathan Chisholm MD Alkaline Phos 63 U/L Normal 35-104 [facility] Comment on above: Performed By: #### C P, CDP #### [facility] [address] [place], [place] [phone] Sleeve Wheel Maker: Jonathan Chisholm MD ALT [Catalytic activity/Vol] 8 U/L Normal 5-33 [facility] Comment on above: Performed By: #### C P, CDP #### [facility] [address] [place], [place] [phone] Sleeve Wheel Maker: Jonathan Chisholm MD Anion gap [Moles/Vol] 12 mmol/L Normal 9-17 [facility] Comment on above: Performed By: #### C P, CDP #### [facility] [address] [place], [place] [phone] Sleeve Wheel Maker: Jonathan Chisholm MD AST [Catalytic activity/Vol] 13 U/L Normal <32 [facility] Comment on above: Performed By: #### C P, CDP #### [facility] [address] [place], [place] [phone] Sleeve Wheel Maker: Jonathan Chisholm MD Bilirubin Ql (U) 0.40 mg/dL Normal 0.30-1.20 [facility] Comment on above: Performed By: #### C P, CDP #### [facility] [address] [place], [place] [phone] Sleeve Wheel Maker: Jonathan Chisholm MD BUN/CRE Ratio 13 Normal 9-20 [facility] Comment on above: Performed By: #### C P, CDP #### [facility] [address] [place], [place] [phone] Sleeve Wheel Maker: Jonathan Chisholm MD Calcium [Mass/Vol] 9.1 mg/dL Normal 8.6-10.4 [facility] Comment on above: Performed By: #### C P, CDP #### [facility] [address] [place], [place] [phone] Sleeve Wheel Maker: Jonathan Chisholm MD Chloride [Moles/Vol] 103 mmol/L Normal 98-107 [facility] Comment on above: Performed By: #### C P, CDP #### [facility] [address] [place], [place] [phone] Sleeve Wheel Maker: Jonathan Chisholm MD CO2 [Moles/Vol] 24 mmol/L Normal 20-31 [facility] Comment on above: Performed By: #### C P, CDP #### [facility] [address] [place], [place] [phone] Sleeve Wheel Maker: Jonathan Chisholm MD Creatinine [Mass/Vol] 0.61 mg/dL Normal 0.50-0.90 [facility] Comment on above: Performed By: #### C P, CDP #### [facility] [address] [place], [place] [phone] Sleeve Wheel Maker: Jonathan Chisholm MD GFR, Amer >60 Normal >60 [facility] Comment on above: Performed By: #### C P, CDP #### [facility] [address] [place], [place] [phone] Sleeve Wheel Maker: Jonathan Chisholm MD GFR,non Amer >60 Normal >60 [facility] Comment on above: Performed By: #### C P, CDP #### [facility] [address] [place], [place] [phone] Sleeve Wheel Maker: Jonathan Chisholm MD Glucose [Mass/Vol] 94 mg/dL Normal 70-99 [facility] Comment on above: Performed By: #### C P, CDP #### [facility] [address] [place], [place] [phone] Sleeve Wheel Maker: Jonathan Chisholm MD Potassium [Moles/Vol] 3.8 mmol/L Normal 3.7-5.3 [facility] Comment on above: Performed By: #### C P, CDP #### [facility] [address] [place], [place] [phone] Sleeve Wheel Maker: Jonathan Chisholm MD Protein [Mass/Vol] 7.1 g/dL Normal 6.4-8.3 [facility] Comment on above: Performed By: #### C P, CDP #### [facility] [address] [place], [place] [phone] Sleeve Wheel Maker: Jonathan Chisholm MD Sodium [Moles/Vol] 139 mmol/L Normal 135-144 [facility] Comment on above: Performed By: #### C P, CDP #### [facility] [address] [place] [address] Sleeve Wheel Maker: Jonathan Chisholm MD Urea nitrogen [Mass/Vol] 8 mg/dL Normal 6-20 [facility] Comment on above: Performed By: #### C P, CDP #### [facility] [address] [place], [place] [id number] Sleeve Wheel Maker: Jonathan Chisholm MD Albumin/Globulin [Mass ratio] NOT REPORTED Normal 1.0-2.5 [facility] Comment on above: Performed By: #### C P, CDP #### [facility] [address] [place] [address] Sleeve Wheel Maker: Jonathan Chisholm MD Staging: NOT REPORTED Normal [facility] Comment on above: Performed By: #### C P, CDP #### [facility] [address] [place] [address] Sleeve Wheel Maker: Jonathan Chisholm MD Comprehensive Metabolic Pane markus 02-01-2019 Albumin [Mass/Vol] 4.1 g/dL 3.5 - 5.2 g/dL [place] Albumin/Globulin [Mass ratio] NOT REPORTED [place] ALP [Catalytic activity/Vol] 63 U/L 35 - 104 U/L [place] ALT [Catalytic activity/Vol] 8 U/L 5 - 33 U/L [place] Anion gap [Moles/Vol] 12 mmol/L 9 - 17 mmol/L [place] AST [Catalytic activity/Vol] 13 U/L <32 [place] Bilirubin Ql (U) 0.40 mg/dL 0.3 - 1.2 mg/dL [place] Bun/Cre Ratio 13 [place] Calcium [Mass/Vol] 9.1 mg/dL 8.6 - 10. 4 mg/dL [place] Chloride [Moles/Vol] 103 mmol/L 98 - 10 7 mmol/L [place] CO2 [Moles/Vol] 24 mmol/L 20 - 31 mmol/L [place] Creatinine [Mass/Vol] 0.61 mg/dL 0.5 - 0.9 mg/dL [place] GFR >60 >60 mL/min [place] GFR Non- >60 >60 mL/min [place] GFR/1.73 sq M predicted among non-blacks MDRD (S/P/Bld) [Vol rate/Area] NOT REPORTED [place] GFR/1.73 sq M predicted among non-blacks MDRD (S/P/Bld) [Vol rate/Area] [place] Comment on above: Average GFR for 20-2 9 years old: 116 mL/min/1.73sq m Chronic Kidney Disease: <60 mL/min/1.73sq m Kidney failure: <15 mL/min/1.73sq m eGFR calculated using average adult body mass. Additional eGFR calculator available at: http://www.Holla@Me.Techfoo/multiple_crcl_2012.htm Glucose [Mass/Vol] 94 mg/dL 70 - 99 mg/dL [place] Potassium [Moles/Vol] 3.8 mmol/L 3.7 - 5.3 mmol/L [place] Protein [Mass/Vol] 7.1 g/dL 6.4 - 8.3 g/dL [place] Sodium [Moles/Vol] 139 mmol/L 135 - 144 mmol/L [place] Urea nitrogen [Mass/Vol] 8 mg/dL 6 - 20 mg/dL [place] HCG, ,Urineon 02-01 Beta HCG ( test) Ql (U) Negative Normal NEG [facility] Comment on above: Performed By: #### U MICAO, UHCG, UA #### [facility] [address] [place] [address] Sleeve Wheel Maker: Jonathan Chisholm MD Microscopic Urinalysison Amorphous, UA NOT REPORTED None [place], [place] Bacteria, UA 3+ Abnormal None [place], [place] Casts UA NOT REPORTED /LPF [place] Crystals UA NOT REPORTED None /HPF [place] Epithelial Cells UA 20 TO 50 /HPF [place] Interpretation and review of laboratory results Abnormal [place] Mucus, UA 2+ Abnormal None [place] Other Observations UA NOT REPORTED NOT REQ. [place] RBC (U) [#/Vol] 2 TO 5 [place], [place] Renal Epithelial, Urine NOT REPORTED 0 /HPF [place] Trichomonas, UA NOT REPORTED None [place], [place] WBC, UA 2 TO 5 0 /HPF [place] Yeast, UA NOT REPORTED None [place] Otheron 02-01-2019 Immature granulocytes (Bld) [#/Vol] NOT REPORTED [place] , Urineon 9 Beta HCG ( test) Ql (U) Negative NEGATIVE [place] Urinalysison 02-01-2019 Bilirubin Urine Negative NEGATIVE [place] Color, UA YELLOW YELLOW [place] Glucose, Ur Negative NEGATIVE [place] Interpretation and review of laboratory results Abnormal [place] Ketones Ql (U) TRACE Abnormal NEGATIVE [place], [place] Leukocyte esterase Test strip Ql (U) Negative NEGATIVE [place] Nitrite, Urine Negative NEGATIVE [place] pH, UA 6.0 [place] Protein (U) [Mass/Vol] 1+ Abnormal NEGATIVE [place] Specific [place], UA 1.020 [place], [place] Turbidity UA CLEAR CLEAR [place] Urinalysis Comments [place] Urine Hgb 3+ Abnormal NEGATIVE [place] Urobilinogen, Urine Normal Normal [place] Urinalysis, Routineon 2018 Acetoacetic Acid,Ur TRACE Abnormal NEG [facility] Comment on above: Performed By: #### U MICAO, [facility], UA #### [facility] [address] [place] [address] Sleeve Wheel Maker: Jonathan Chisholm MD Bilirubin, SemiQt,Ur Negative Normal NEG [facility] Comment on above: Performed By: #### U MICAO, [facility], UA #### [facility] [address] [place] [address] Sleeve Wheel Maker: Jonathan Chisholm MD Color (U) YELLOW Normal L [facility] Comment on above: Performed By: #### U MICAO, [facility], UA #### [facility] [address] [place] [address] Sleeve Wheel Maker: Jonathan Chisholm MD Comment Normal [facility] Comment on above: Performed By: #### U MICAO, [facility], UA #### [facility] [address] [place] [address] Sleeve Wheel Maker: Jonathan Chisholm MD Glucose Ql (U) Negative Normal NEG [facility] Comment on above: Performed By: #### U MICAO, [facility], UA #### [facility] [address] [place] [address] Sleeve Wheel Maker: Jonathan Chisholm MD Hemoglobin, Ur 3+ Abnormal NEG [facility] Comment on above: Performed By: #### U MICAO, [facility], UA #### [facility] [address] [place] [address] Sleeve Wheel Maker: Jonathan Chisholm MD Leukocyte esterase Test strip Ql (U) Negative Normal NEG [facility] Comment on above: Performed By: #### U PREMA [facility], UA #### [facility] [address] [place] [address] Sleeve Wheel Maker: Jonathan Chisholm MD Nitrite,Ur Negative Normal NEG [facility] Comment on above: Performed By: #### U PREMA, [facility], UA #### [facility] [address] [place] [address] Sleeve Wheel Maker: Jonathan Chisholm MD pH (U) 6.0 [pH] Normal 5.0-8.0 [facility] Comment on above: Performed By: #### U JAZMINEO, [facility], UA #### [facility] [address] [place] [address] Sleeve Wheel Maker: Jonathan Chisholm MD Protein Ql (U) 1+ Abnormal NEG [facility] Comment on above: Performed By: #### U PREMA [facility], UA #### [facility] [address] [place] [address] Sleeve Wheel Maker: Jonathan Chisholm MD Specific gravity (U) [Rel density] 1.020 Normal 1.005-1.030 [facility] Comment on above: Performed By: #### U MICAO, [facility], UA #### [facility] [address] [place] [address] Sleeve Wheel Maker: Jonathan Chisholm MD Turbidity CLEAR Normal CLEAR [facility] Comment on above: Performed By: #### U MICAO, [facility], UA #### [facility] [address] [place] [id number] Sleeve Wheel Maker: Jonathan Chisholm MD Urobilinogen,Ur Normal Normal NORM [facility] Comment on above: Performed By: #### U PREMA [facility], UA #### [facility] [address] [place], [place] [phone] Sleeve Wheel Maker: Jonathan Chisholm MD Urinalysis,Microon 9 ----- Normal [facility] Comment on above: Performed By: #### U PREMA, [facility], UA #### [facility] [address] [place], [place] [phone] Sleeve Wheel Maker: Jonathan Chisholm MD Bacteria LM.HPF (Urine sed) [#/Area] 3+ Abnormal NONE [facility] Comment on above: Performed By: #### Yane LLOYD [facility], UA #### [facility] [address] [place], [place] [phone] Sleeve Wheel Maker: Jonathan Chisholm MD Epithelial cells LM.HPF (Urine sed) [#/Area] 20 TO 50 Normal [facility] Comment on above: Performed By: #### U PREMA [facility], UA #### [facility] [address] [place], [place] [phone] Sleeve Wheel Maker: Jonathan Chisholm MD Mucus Strands 2+ Abnormal [facility] Comment on above: Performed By: #### U PREMA [facility], UA #### [facility] [address] [place], [place] [phone] Sleeve Wheel Maker: Jonathan Chisholm MD RBC (U) [#/Vol] 2 TO 5 Normal 0-2 [facility] Comment on above: Performed By: #### U PREMA [facility], UA #### [facility] [address] [place], [place] [phone] Sleeve Wheel Maker: Jonathan Chisholm MD WBC (U) [#/Vol] 2 TO 5 Normal 0 [facility] Comment on above: Performed By: #### U MICAO, [facility] #### [facility] [address] [place] [address] Sleeve Wheel Maker: Jonathan Chisholm MD Amorphous sediment LM Ql (Urine sed) NOT REPORTED Normal NONE [facility] Comment on above: Performed By: #### U MICAO, [facility], UA #### [facility] [address] [place] [address] Sleeve Wheel Maker: Jonathan Chisholm MD Casts LM.LPF (Urine sed) [#/Area] NOT REPORTED Normal [facility] Comment on above: Performed By: #### U MICAO, [facility], UA #### [facility] [address] [place] [address] Sleeve Wheel Maker: Jonathan Chisholm MD Crystals LM Nom (Urine sed) NOT REPORTED Normal NONE [facility] Comment on above: Performed By: #### U MICAO, [facility], UA #### [facility] [address] [place] [address] Sleeve Wheel Maker: Jonathan Chisholm MD Epithelial, Renal NOT REPORTED Normal 0 [facility] Comment on above: Performed By: #### U MICAO, [facility], UA #### [facility] [address] [place] [address] Sleeve Wheel Maker: Jonathan Chisholm MD Other Observations NOT REPORTED Normal NREQ [facility] Comment on above: Performed By: #### U MICAO, [facility], UA #### [facility] [address] [place] [address] Sleeve Wheel Maker: Jonathan Chisholm MD Trichomonas NOT REPORTED Normal NONE [facility] Comment on above: Performed By: #### U MICAO, [facility] #### [facility] [address] [place] [address] Sleeve Wheel Maker: Jonathan Chisholm MD Yeast LM Ql (Urine sed) NOT REPORTED Normal NONE [facility] Comment on above: Performed By: #### U JAZMINE, [facility], UA #### [facility] [address] [place] [address] Sleeve Wheel Maker: Jonathan Chisholm MD Vital Signs Date Time Vital Sign Value Performing Clinician Facility 01-16-2025 09:38-0400 Body mass index (BMI) [Ratio] 29.67 kg/m2 Jack Peggy DO Work Phone: [facility] 01-16-2025 09:38-0400 Body weight 83.37 kg Jakc Peggy DO Work Phone: [facility] 01-16-2025 09:38-0400 Diastolic blood pressure 78 mm[Hg] Jack Peggy DO Work Phone: [facility] 01-16-2025 09:38-0400 Systolic blood pressure 120 mm[Hg] Jack Peggy DO Work Phone: [facility] 12-31-2024 14:30-0400 Body mass index (BMI) [Ratio] 29.83 kg/m2 Jack Peggy DO Work Phone: [facility] 12-31-2024 14:30-0400 Body weight 83.83 kg Jack Peggy DO Work Phone: [facility] 12-31-2024 14:30-0400 Diastolic blood pressure 62 mm[Hg] Jack Peggy DO Work Phone: [facility] 12-31-2024 14:30-0400 Systolic blood pressure 112 mm[Hg] Jack Peggy DO Work Phone: [facility] 12-03-2024 13:26-0400 Body mass index (BMI) [Ratio] 28.29 kg/m2 Jayla DA SILVA Work Phone: [facility] 12-03-2024 13:26-0400 Body weight 79.49 kg Jayla DA SILVA Work Phone: [facility] 12-03-2024 13:26-0400 Diastolic blood pressure 78 mm[Hg] Jayla DA SILVA Work Phone: [facility] 12-03-2024 13:26-0400 Systolic blood pressure 100 mm[Hg] Jayla DA SILVA Work Phone: [facility] 11-12-2024 08:47-0400 Body height 167.6 cm Guadalupe Peres MD Work Phone: [facility] 11-12-2024 08:47-0400 Body mass index (BMI) [Ratio] 27.48 kg/m2 Guadalupe Peres MD Work Phone: [facility] 11-12-2024 08:47-0400 Body weight 77.2 kg Guadalupe Peres MD Work Phone: [facility] 11-12-2024 08:47-0400 Diastolic blood pressure 73 mm[Hg] Guadalupe Peres MD Work Phone: [facility] 11-12-2024 08:47-0400 Heart rate 90 /min Guadalupe Peres MD Work Phone: [facility] 11-12-2024 08:47-0400 Systolic blood pressure 105 mm[Hg] Guadalupe Peres MD Work Phone: [facility] 11-05-2024 14:10-0400 Body mass index (BMI) [Ratio] 27.02 kg/m2 Jack Peggy DO Work Phone: [facility] 11-05-2024 14:10-0400 Body weight 75.93 kg Jack Peggy DO Work Phone: [facility] 11-05-2024 14:10-0400 Diastolic blood pressure 68 mm[Hg] Jack Peggy DO Work Phone: [facility] 11-05-2024 14:10-0400 Systolic blood pressure 106 mm[Hg] Jack Peggy DO Work Phone: [facility] 10-08-2024 14:35-0400 Body mass index (BMI) [Ratio] 27.41 kg/m2 Jack Peggy DO Work Phone: [facility] 10-08-2024 14:35-0400 Body weight 77.02 kg Jack Peggy DO Work Phone: [facility] 10-08-2024 14:35-0400 Diastolic blood pressure 72 mm[Hg] Jack Peggy DO Work Phone: [facility] 10-08-2024 14:35-0400 Systolic blood pressure 100 mm[Hg] Jack Peggy DO Work Phone: [facility] 09-19-2024 13:34-0400 Body mass index (BMI) [Ratio] 26.95 kg/m2 Nom Nurse [facility] 09-19-2024 13:34-0400 Body weight 75.75 kg [facility] Nurse [facility] 09-19-2024 13:34-0400 Diastolic blood pressure 84 mm[Hg] [facility] Nurse [facility] 09-19-2024 13:34-0400 Systolic blood pressure 108 mm[Hg] [facility] Nurse [facility] 04-10-2024 11:05-0500 Body mass index (BMI) [Ratio] 27.6 kg/m2 Jack Peggy DO Work Phone: [facility] 04-10-2024 11:05-0500 Body weight 77.56 kg Jack Peggy DO Work Phone: [facility] 04-10-2024 11:05-0500 Diastolic blood pressure 72 mm[Hg] Jack Peggy DO Work Phone: [facility] 04-10-2024 11:05-0500 Systolic blood pressure 114 mm[Hg] Jack Peggy DO Work Phone: [facility] 2024 13:52-0400 Body height 167.6 cm Jack Peggy DO Work Phone: [facility] 2024 13:52-0400 Body mass index (BMI) [Ratio] 26.6 kg/m2 Jack Peggy DO Work Phone: [facility] 2024 13:52-0400 Body weight 74.75 kg Jack Peggy DO Work Phone: [facility] 2024 13:52-0400 Diastolic blood pressure 56 mm[Hg] Jack Peggy DO Work Phone: [facility] 2024 13:52-0400 Systolic blood pressure 100 mm[Hg] Jack Peggy DO Work Phone: [facility] 03-21-2023 18:10-0500 Body height 167.64 cm Rina Anton Other [employer] Other 03-21-2023 18:10-0500 Body mass index (BMI) [Ratio] 26.95 kg/m2 Rina Anton Other [employer] Other 03-21-2023 18:10-0500 Body temperature 98.9 [degF] Rina Anton Other [employer] Other 03-21-2023 18:10-0500 Body weight 75.75 kg Rina Anton Other [employer] Other 03-21-2023 18:10-0500 Respiratory rate 18 /min Rina Anton Other [employer] Other 03-21-2023 18:10-0500 SaO2% (BldA) [Mass fraction] 97 % Rina Anton Other [employer] Other 02-01-2019 06:41-0400 BP Diastolic 64 mm[Hg] [facility] 02-01-2019 06:41-0400 BP Systolic 107 mm[Hg] [facility] [place] [facility] 02-01-2019 06:41-0400 Pulse (Heart Rate) 64 /min [employer] [facility] [place], [facility] 02-01-2019 04:30-0400 Body Temperature 98.01 [degF] Keyla Harden [facility], [place] 02-01-2019 04:30-0400 Body weight 58.92 kg Keyla Harden [facility], [place] 02-01-2019 04:30-0400 Pulse Oximetry 100 % [facility] [place] 02-01-2019 04:30-0400 Respiratory Rate 18 /min Keyla Harden [facility] Encounters Encounter Date Encounter Type Care Provider Facility Start: 01-24-2025 End: 01-24-2025 ambulatory [facility] Start: 01-21-2025 End: 01-21-2025 Clinisync Result Encounter Jayla DA SILVA Work Phone: [facility] Unsolicited Start: 01-21-2025 End: 01-21-2025 Clinisync Result Encounter Jayla DA SILVA Work Phone: [facility] Unsolicited Start: 01-16-2025 End: 01-16-2025 Bamboo flowsheet Jack Peggy DO Work Phone: [facility] Start: 01-16-2025 End: 01-16-2025 Bamboo flowsheet Jack Peggy DO Work Phone: [facility] Start: 01-16-2025 End: 01-16-2025 flow sheet Jack Peggy DO Work Phone: [facility] Comment on above: 25 weeks gestation o f ([facility]); Second trimester ([facility]); Palpitations; Syncope, unspecified syncope type; Gastroesophageal reflux in ([facility]) Start: 01-16-2025 End: 01-16-2025 ambulatory JACK PEGGY Not Available Start: 01-07-2025 End: 01-07-2025 Bamboo flowsheet Jayla DA SILVA Work Phone: [facility] Start: 01-07-2025 End: 01-07-2025 Bamboo flowsheet Jayla DA SILVA Work Phone: [facility] Start: 01-07-2025 End: 01-07-2025 flow sheet Jayla DA SILVA Work Phone: [facility] Comment on above: Second trimester pre gnancy ([facility]); 23 weeks gestation of ([facility]); Palpitations; Tachycardia Start: 01-07-2025 End: 01-07-2025 ambulatory JAYLA ART Not Available Start: 12-31-2024 End: 12-31-2024 flow sheet Jack Peggy DO Work Phone: [facility] Comment on above: Second trimester pre gnancy ([facility]); 23 weeks gestation of ([facility]); Diabetes mellitus screening Start: 12-31-2024 End: 12-31-2024 ambulatory JACK PEGGY Not Available Start: 12-31-2024 End: 12-31-2024 Bamboo flowsheet Jack Peggy DO Work Phone: [facility] Start: 12-31-2024 End: 12-31-2024 Bamboo flowsheet Jack Peggy DO Work Phone: [facility] Start: 12-10-2024 End: 12-10-2024 ambulatory JACK R PEGGY [facility] Start: 12-03-2024 End: 12-03-2024 Bamboo flowsheet Jayla DA SILVA Work Phone: [facility] Start: 12-03-2024 End: 12-03-2024 Bamboo flowsheet Jayla DA SILVA Work Phone: [facility] Start: 12-03-2024 End: 12-03-2024 flow sheet Jayla DA SILVA Work Phone: [facility] Comment on above: Second trimester pre gnancy ([facility]); 19 weeks gestation of ([facility]) Start: 12-03-2024 End: 12-03-2024 ambulatory JAYLA ART Not Available Start: 11-12-2024 End: 11-12-2024 Office consultation new/estab patient 60 min Guadalupe Peres MD Work Phone: [facility] Comment on above: Adnexal mass (Primar y Dx); 16 weeks gestation of ; Uterine fibroids affecting in second trimester; Localized swelling of right lower extremity Start: 11-12-2024 End: 11-12-2024 Orders Only Jayla Avina [employer] [facility] Comment on above: Adnexal mass (Primar y [...] exam with routine gynecological exam; Second trimester ([facility]); 15 weeks gestation of ([facility]); Vaginal discharge; STD exposure Start: 11-05-2024 End: 11-05-2024 ambulatory [facility] Work Phone: Start: 11-05-2024 End: 11-05-2024 Departed Referred Jack Peggy [facility] Start: 10-08-2024 End: 10-08-2024 flow [...] 06-14-2024 End: 06-15-2024 Clinisync Result Encounter Jack Pgegy DO Work Phone: [facility] Unsolicited [...] miscarriage Start: 2024 End: 2024 ambulatory JACK HERNANDEZO Not Available Start: 01-05-2024 End: 01-05-2024 Patient encounter procedure MD Zachary Mayes Work Phone: [facility] [place] Work Phone: Start: 01-05-2024 End: 01-05-2024 ambulatory MD Zachary Mayes Work Phone: [facility] Work Phone: Start: 12-28-2023 End: 12-28-2023 Patient encounter procedure MD Zachary Mayes Work Phone: [facility] [place] Work Phone: Start: 12-28-2023 End: 12-28-2023 ambulatory MD Zachary Mayes Work Phone: [facility] Work Phone: Start: 12-22-2023 End: 12-22-2023 Patient encounter procedure MD Zachary Mayes Work Phone: [facility] [place] Work Phone: Start: 12-22-2023 End: 12-22-2023 ambulatory MD Zachary Mayes Work Phone: [facility] Work Phone: Start: 12-20-2023 End: 12-20-2023 Patient encounter procedure MD Zachary Mayes Work Phone: [facility] [place] Work Phone: Start: 12-20-2023 End: 12-20-2023 ambulatory MD Zachary Mayes Work Phone: [facility] Work Phone: Start: 12-09-2023 End: 12-09-2023 Patient encounter procedure MD Zachary Mayes Work Phone: [facility] [place] Work Phone: Start: 12-09-2023 End: 12-09-2023 ambulatory MD Zachary Mayes Work Phone: [facility] Work Phone: Start: 12-07-2023 End: 12-07-2023 Patient encounter procedure MD Zachary Mayes Work Phone: [facility] [place] Work Phone: Start: 12-07-2023 End: 12-07-2023 ambulatory MD Zachary Mayes Work Phone: [facility] Work Phone: Start: 12-05-2023 End: 12-05-2023 Patient encounter procedure MD Zachary Mayes Work Phone: [facility] [place] Work Phone: Start: 12-05-2023 End: 12-05-2023 ambulatory MD Zachary Mayes Work Phone: [facility] Work Phone: Start: 12-02-2023 End: 12-02-2023 ambulatory MD Zachary Mayes Work Phone: [facility] Work Phone: Start: 12-02-2023 End: 12-02-2023 Patient encounter procedure MD Zachary Mayes Work Phone: [facility] [place] Work Phone: Start: 05-01-2023 End: 05-01-2023 Admission to same day surgery center MD Zachary Mayes Work Phone: [facility] Work Phone: Start: 05-01-2023 End: 05-01-2023 ambulatory MD Zachary Mayes Work Phone: [facility] Work Phone: Start: 03-21-2023 End: 03-21-2023 ambulatory Rina Anton Other [employer] Other Start: 03-21-2023 Office outpatient ne w 30 minutes Rina Anton [facility] Start: 02-01-2019 End: 02-01-2019 Emergency department patient visit [facility] Start: 02-01-2019 End: 02-01-2019 Emergency department patient visit [facility] Work Phone: [facility] Comment on above: Abdominal pain, righ t lower quadrant (Primary Dx); History of ovarian cyst Procedures Date Procedure Procedure Detail Performing Clinician Start: 01-21-2025 CA ECHO DOPPLER COMPLETE Jayla DA SILVA Work Phone: Start: 01-16-2025 Urnls dip stick/tabl et rgnt [...] Adult BMI Screening Adult BMI Screen ing [facility] Start: 11-12-2025 Tobacco Screening Tobacco Screening [facility] Start: 01-28-2025 End: 01-28-2025 Patient encounter procedure 01/28/2025 8:40 AM EDT Routine [facility] [address] [place] [id number] Jayla Art PA [address] [place] [address] RIMMA GALDAMEZ Start: 01-21-2025 End: 01-21-2025 Patient encounter procedure 01/21/2025 8:40 AM EDT Office Visit RIMMA GALDAMEZ [address] [place] [phone] Jack Woods, DO [address] [place] [address] R[place]MA [place] OBMYA Start: 01-16-2025 End: 01-16-2025 Patient encounter procedure 01/16/2025 9:20 AM EDT Office Visit RIMMA GALDAMEZ [address] [place] [place] [phone] Jack Woods, DO [address] [place] [address] Arrived RIMMA GALDAMEZ Comment on above: Arrived Start: 01-13-2025 Influenza vaccination Influenza Vacc [facility] Start: 01-07-2025 End: 01-07-2026 12 lead ECG ECG 12 lead unit performed ECG Routine Palpitations Expected: 01/07/2025 (Approximate), Expires: 01/07/2026 [facility] Work Phone: Comment on above: Expected: 01/07/2025 (Approximate), Expires: 01/07/2026 Start: 01-07-2025 End: 01-07-2027 Echocardiogram 2D complete Echocardiogram 2D complete Echocardiography Routine Palpitations Tachycardia Expected: 01/07/2025 (Approximate), Expires: 01/07/2027 [facility] Comment on above: Expected: 01/07/2025 (Approximate), Expires: 01/07/2027 Start: 01-07-2025 End: 01-07-2025 Patient encounter procedure 01/07/2025 1:50 PM EDT Office Visit RIMMA GALDAMEZ [address] [place] [phone] Jayla Art PA [address] [place] [address] Arrived RIMMA GALDAMEZ Comment on above: Arrived Start: 12-31-2024 End: 12-31-2024 Patient encounter procedure 12/31/2024 2:10 PM EDT Routine RIMMA GALDAMEZ [address] [place] [phone] Jack Woods DO [address] [place] [address] Arrived RIMMA GALDAMEZ Comment on above: Arrived Start: 12-31-2024 End: 12-31-2025 CBC panel - Blood by Automated count CBC Lab Routine Diabetes mellitus screening Expected: 12/31/2024 (Approximate), Expires: 12/31/2025 [facility] Work Phone: Comment on above: Expected: 12/31/2024 (Approximate), Expires: 12/31/2025 Start: 12-31-2024 End: 12-31-2025 Measurement of glucose 1 hour after glucose challenge for glucose tolerance test Glucose tolerance, 1 hour Lab Routine Diabetes mellitus screening Expected: 12/31/2024 (Approximate), Expires: 12/31/2025 [facility] Comment on above: Expected: 12/31/2024 (Approximate), Expires: 12/31/2025 Start: 12-10-2024 End: 12-10-2024 Patient encounter procedure 12/10/2024 1:30 PM EDT Appointment [facility] [address] [place] [address] [facility] Start: 12-03-2024 End: 12-03-2024 Patient encounter procedure [facility] Comment on above: Second trimester pre gnancy ([facility]) Start: 11-12-2024 End: 11-12-2025 MR Pelvis WO [...] right lower extremity Expected: 11/12/2024, Expires: 11/12/2025 [facility] Work Phone: Comment on above: Expected: 11/12/2024 , Expires: 11/12/2025 Start: 11-12-2024 End: 11-12-2025 US.doppler Lower extremity vein - right Vas venous duplex insufficiency lwr rt Vascular Ultrasound Routine Localized swelling of right lower extremity Expected: 11/12/2024, Expires: 11/12/2025 [facility] Comment on above: Expected: 11/12/2024 , Expires: 11/12/2025 Start: 11-05-2024 End: 05-07-2025 Alpha fetoprotein, maternal Alpha fetoprotein, maternal Lab Routine Second trimester ([facility]) 15 weeks gestation of ([facility]) Expected: 11/05/2024 (Approximate), Expires: 05/07/2025 [facility] Comment on above: Expected: 11/05/2024 (Approximate), Expires: 05/07/2025 Start: 11-05-2024 End: 11-05-2024 Patient encounter procedure [facility] Comment on above: Arrived Start: 11-05-2024 [facility] Start: 10-08-2024 End: 10-08-2024 Patient encounter procedure [facility] Comment on above: Arrived Start: 09-19-2024 End: 09-19-2025 ABO/Rh ABO/Rh Lab Routine Missed menses , unspecified gestational age Expected: 09/19/2024 (Approximate), Expires: 09/19/2025 [facility] Comment on above: Expected: 09/19/2024 (Approximate), Expires: 09/19/2025 Start: 09-19-2024 End: 09-19-2025 Blood type and Indirect antibody screen panel - Blood Type and screen Lab Routine Missed menses , unspecified gestational age Expected: 09/19/2024 (Approximate), Expires: 09/19/2025 [facility] Work Phone: Comment on above: Expected: 09/19/2024 (Approximate), Expires: 09/19/2025 Start: 09-19-2024 End: 09-19-2025 Drugs of abuse panel - Urine by Screen method Rapid drug screen, urine Lab Routine , unspecified gestational age Encounter for supervision of normal first in first trimester Expected: 09/19/2024 (Approximate), Expires: 09/19/2025 [facility] Comment on above: Expected: 09/19/2024 (Approximate), Expires: 09/19/2025 Start: 09-19-2024 End: 09-19-2024 ambulatory 09/19/2024 1:30 PM EDT Initial [facility] [address] [place] [phone] [facility] Start: 09-19-2024 End: 09-19-2024 Professional / ancillary services management 09/19/2024 1:00 PM EDT Ancillary Procedure [facility] [address] [place] [phone] [facility] Start: 08-28-2024 End: 08-28-2024 Professional / ancillary services management 08/28/2024 8:30 AM EDT Ancillary Procedure [facility] [address] [place] [phone] [facility] Start: 04-10-2024 End: 04-10-2025 Antimullerian hormone (AMH) Antimullerian hormone (AMH) Lab Routine Hormone disorder Expected: 04/10/2024 (Approximate), Expires: 04/10/2025 [facility] Work Phone: Comment on above: Expected: 04/10/2024 (Approximate), Expires: 04/10/2025 Start: 04-10-2024 End: 04-10-2024 Patient encounter procedure 04/10/2024 11:10 AM EST Office Visit [facility] [address] [place] [address] Jack Woods, DO [address] [place] [address] Arrived [facility] Comment on above: Arrived Start: 2024 End: 2024 Patient encounter procedure 2024 1:20 PM EDT Office Visit [facility] [address] [place] [phone] aJck Woods, DO [address] [place] [address] [facility] Start: 12-24-2019 DTaP,Tdap and Td Vaccines (2 - Td or Tdap) DTaP,Tdap and Td Vaccines (2 - Td or Tdap) [facility] Start: 2019 Screening for malign ant neoplasm of cervix Pap Smear [facility] Start: 01-13-2019 Influenza vaccination Flu vaccine (# 1) [place], [place] Start: 02-07-2016 Adult BMI Follow Up Plan Adult BMI F ollow Up Plan [facility] Start: 2010 Depression Screening Depression Scre [facility] Bacteria identified in Urine by Culture Urine culture Microbiology Routine Missed menses Ordered: 09/19/2024 [facility] Comment on above: Ordered: 09/19/2024 CBC W Auto Different ial panel - Blood CBC and differential Lab Routine Missed menses , unspecified gestational age Ordered: 09/19/2024 [facility] Comment on above: Ordered: 09/19/2024 CHLAMYDIA TRACHOMATI S (GENITO/STI) CHLAMYDIA TRACHOMATIS (GENITO/STI) Lab Routine STD exposure Ordered: 11/05/2024 [facility] Comment on above: Ordered: 11/05/2024 Cytology Cervical or vaginal smear or scraping study Pap Smear Pathology and Cytology Routine Well woman exam with routine gynecological exam Ordered: 11/05/2024 [facility] Comment on above: Ordered: 11/05/2024 Hemoglobin A1c/Hemoglobin.total in Blood Hemoglobin A1c Lab Routine Missed menses , unspecified gestational age Ordered: 09/19/2024 [facility] Comment on above: Ordered: 09/19/2024 Hepatitis B virus surface Ag [Presence] in Serum or Plasma by Immunoassay Hepatitis B surface antigen Lab Routine Missed menses , unspecified gestational age Ordered: 09/19/2024 [facility] Comment on above: Ordered: 09/19/2024 Hepatitis C virus Ab [Presence] in Serum or Plasma by Immunoassay Hepatitis C antibody Lab Routine Missed menses , unspecified gestational age Ordered: 09/19/2024 [facility] Comment on above: Ordered: 09/19/2024 HIV-1/HIV-2 antigen/antibody combination immunoassay HIV-1 and HIV-2 antibodies Lab Routine Missed menses , unspecified gestational age Ordered: 09/19/2024 [facility] Comment on above: Ordered: 09/19/2024 Neisseria gonorrhoea e DNA [Presence] in Unspecified specimen by DARIUS with probe detection Neisseria gonorrhea DNA probe, direct Lab Routine STD exposure Ordered: 11/05/2024 [facility] Comment on above: Ordered: 11/05/2024 Progesterone [Mass/volume] in Serum or Plasma [facility] Reagin Ab [Presence] in Serum by RPR RPR Lab Routine Missed menses , unspecified gestational age Ordered: 09/19/2024 [facility] Comment on above: Ordered: 09/19/2024 Rubella antibody, IgG Rubella an tibody, IgG Lab Routine Missed menses , unspecified gestational age Ordered: 09/19/2024 [facility] Comment on above: Ordered: 09/19/2024 SURESWAB(R) ADVANCED VAGINITIS PLUS, TMA SURESWAB(R) ADVANCED VAGINITIS PLUS, TMA Pathology and Cytology Routine Vaginal discharge Ordered: 11/05/2024 [facility] Work Phone: Comment on above: Ordered: 11/05/2024 Immunizations Immunization Date Immunization Notes Care Provider [facility] 03-18-2017 influenza virus vaccine, unspecified formulation Guadalupe Peres MD Work Phone: [facility] [employer] Payers Date Payer Category Payer Blue [employer] Yaron Pradhan Managed Care - PPO ANTHADELA [id number] 2024 Blue [place] Blue Shield BCBS [id number] 2024 Unknown [id number] 2023 Self-pay [id number] 2023 Private Health Insurance [id number] 2023 Private Health Insurance [id number] 2014 Unknown [id number] 2014 Unknown BCBS [place] - [place] P PO xxxxxxxxxxxx 2014-Present [address] [place] [address] xxxxxxxxxxxx [id number] 1998 Unknown [id number] 2.16.840.1.883023.3.579.2 .174 1998 Unknown [id number] 2.16.840.1.711334.3.579.2 .1286 1998 Unknown [id number] 2.16.840.1.346748.3.579.2 .128 1998 Unknown [id number] 2.16.840.1.099663.3.579.2 .1286 1998 Unknown [id number] 2.16.840.1.742078.3.579.2 .1258 1998 Unknown [id number] 2.16.840.1.837791.3.579.2 .125 1998 Unknown [id number] 2.16.840.1.365618.3.579.2 .1258 1998 Unknown [id number] 2.16840.1.346957.3.579.2 .1258 1998 Unknown [id number] 2.16840.1.708013.3.579.2 .1258 1998 Unknown [id number] 2.16840.1.129316.3.579.2 .1258 1998 Unknown [id number] 2.16840.1.450010.3.579.2 .1258 1998 Unknown [id number] 2.16840.1.450345.3.579.2 .1258 1998 Unknown [id number] 2.16840.1.464864.3.579.2 .1258 1998 Unknown [id number] 2.16.840.1.168063.3.579.2 .1258 1998 Unknown [id number] 2.16840.1.680736.3.579.2 .125 Unknown [facility] [id number] Unknown [place] BC/ [id number] Unknown [id number] 2.16840.1.672013.3.579.2 .531 Unknown [id number] 2.16.840.1.275121.3.579.2 .531 Unknown [id number] 2.16.840.1.617595.3.579.2 .531 Unknown [id number] 2.16.840.1.089695.3.579.2 .531 Unknown [id number] 2.16.840.1.190236.3.579.2 .531 Unknown [id number] 2.16.840.1.842463.3.579.2 .531 Unknown [id number] 2.16.840.1.647058.3.579.2 .531 Unknown [id number] 2.16.840.1.154500.3.579.2 .531 Unknown [id number] 2.16.840.1.130891.3.579.2 .531 Social History Date Type Detail Facility Start: 02-01-2019 End: 04-28-2023 Tobacco smoking status IAIS Never smoker [facility] Start: 02-01-2019 End: 2024 Alcohol intake Not Currently [place], [place] Start: 1998 Sex Assigned At Not on file M [place], [place] Start: 1998 Sex Assigned At Female F [facility] Start: 2024 End: 01-16-2025 Alcoholic beverage intake Lifetime non-drinker (finding) [facility] Start: 04-28-2023 End: 2024 History of Social function [facility] Start: 04-28-2023 Alcohol Comment Caffeine intak e: 3-4 cups per day [facility] Start: 08-06-2024 [facility] Start: 12-26-2022 Sex Female (finding) [facility] Within the past 12 months we worried whether our food would run out before we got money to buy more. Never True [facility] Clinical Notes 03-21-2023 to 01-24-2025 Kelley Sepulveda LPN - 01/16/2025 9:20 AM REKHA Corral 01/07/2025 1:50 PM EDTEdpeter PrasadBRIANA - 12/31/2024 2:10 PM REKHA Corral - 12/03/2024 1:30 PM EDT Note Date & Type Note Facility 01-24-2025 Note [facility] Note Reason for cardiology consult: Syncope Chief Complaint: Syncope HPI: Daphney Al is a 24 y.o. female without prior [...] give her the remote of the TV and when she stood up and walked little bit she started seeing stars in the front of her and she became fainty and she passed out briefly. Since then she had several episodes of syncope near syncope, all of them when she is standing, sometimes she can avoid them by sitting right away. She has been drinking and eating well. No nausea or vomiting or diarrhea. She does not drink caffeine or alcohol. She tries to drink a lot of water. She [...] negative for PE or any abnormalities. Her commercial green building designer ordered echo which came back normal. A nurse friend noted while she was listening to her that her heart rate goes to fast followed by slower and keeps [...] is very frustrated that she cannot go b (more content not included)... [facility] 01-16-2025 History of Present illness Narrative Reason for Appointment: Patient ID: Daphney Al is a 24 y.o. female who presents for Routine Visit Patient presents today for Return OB appointment. MEDICATIONS Current Outpatient Medications Medication Instructions aspirin 81 MG oral suspension ondansetron (ZOFRAN) 4 mg, Oral, Every 6 hours PRN, Take 1 tablet by mouth every 6 hours as needed for nausea. Vit w/Jk-Ndsrddvoi-AB (PNV PO) ALLERGIES Allergies Allergen Reactions Cephalexin [...] nursing note reviewed. Exam conducted with a vat house laborer present. Vitals: Estimated body mass index is 29.67 kg/m as calculated from the following: Height as of 02/06/24: 5' 6 . Weight as of this encounter: 183 lb 12.8 oz. BP: 120/78 Patient's last menstrual period was 07/23/2024. ASSESSMENT & PLAN ICD-10-CM 1. 25 weeks gestation of ([facility]) Z3A.25 POCT urinalysis dipstick manually resulted 2. Second trimester ([facility]) Z34.92 POCT urinalysis dipstick manually resulted 3. Palpitations R00.2 4. Syncope, unspecified syncope type R55 5. Gastroesophageal reflux in ([facility]) O99.619 K21.9 Patient presents today for a routine obstetrics appointment. Patient is currently 25w2d with a Estimated Date of Delivery: 04/29/25. Patient had spells where she passed out. Patient to have Cardiac Consult hopefully within the next week. Referral will be made today to Cardiology at [facility]. Patient has a EKG scheduled for Monday at 1pm. Patient voiced that she sees stars and then gets dizzy. Advised to increase protein and to remain off work until cleared by Cardiology. Patient to return to clinic 1 week. Documented by Kelley Sepulveda LPN on behalf of: Jack Woods DO documented in this encounter [facility] 01-07-2025 History of Present illness Narrative Reason for Appointment: Patient ID: Daphney Al is a 24 y.o. female who presents [...] 6 hours as needed for nausea. Vit w/Qs-Awjtyqgwr-WK (PNV PO) pyridoxine (VITAMIN B-6) 25 mg, [...] ASSESSMENT & PLAN ICD-10-CM 1. Second trimester ([facility]) Z34.92 POCT urinalysis dipstick manually resulted iron polysaccharides (ProFe) 391.3 (180 Fe) MG capsule 2. 23 weeks gestation of ([facility]) Z3A.23 3. Palpitations R00.2 ECG 12 lead [...] of: REKHA Ott documented in this encounter [facility] 12-31-2024 History of Present illness Narrative Reason for Appointment: Patient ID: Daphney Al is a 24 y.o. female who presents [...] 6 hours as needed for nausea. Vit w/Wy-Bbxbmrkps-WX (PNV PO) pyridoxine (VITAMIN B-6) 25 mg, [...] nursing note reviewed. Exam conducted with a vat house laborer present. Vitals: Estimated body mass index is 29.83 kg/m as calculated from the following: Height as of 02/06/24: 5' 6 . Weight as of this encounter: 184 lb 12.8 oz. BP: 112/62 Patient's last menstrual period was 07/23/2024. ASSESSMENT & PLAN ICD-10-CM 1. Second trimester ([facility]) Z34.92 POCT urinalysis dipstick manually resulted 2. 23 weeks gestation of ([facility]) Z3A.23 POCT urinalysis dipstick manually resulted 3. [...] Jack Woods DO documented in this encounter [facility] 12-03-2024 History of Present illness Narrative Reason for Appointment: Patient ID: Daphney Al is a 24 y.o. female who presents [...] 6 hours as needed for nausea. Vit w/Yj-Wodrektvj-DG (PNV PO) pyridoxine (VITAMIN B-6) 25 mg, [...] ASSESSMENT & PLAN ICD-10-CM 1. Second trimester ([facility]) Z34.92 POCT urinalysis dipstick manually resulted 2. 19 weeks gestation of ([facility]) Z3A.19 Return OB: Patient presents today for [...] of: REKHA Ott documented in this encounter [facility] 11-12-2024 History of Present illness Narrative Images from the original note were not included. REASON FOR CONSULTATION: Bilaterally enlarged ovaries HISTORY OF PRESENT ILLNESS: Daphney Al is a pleasant 24 y.o. at 15w6d [...] report Carrier screening: Baby Boy: Rubin Parra I have reviewed the pertinent available patient records [...] nausea or vomiting., Disp: , Rfl: PNV 65-onfk-pisxjplxmkks-dha 29 mg iron-1 mg -350 mg comb [...] TESTS AND ULTRASOUND REPORTS: Referral records and [facility] chart were reviewed Pertinent Ultrasound findings are see formal ultrasound report. PHYSICAL EXAMINATION: BP 105/73 (BP Site: Left Arm, BP Postition: Lying) Pulse 90 Ht 167.6 cm (5' 5.98 ) Wt 77.2 kg (170 lb 3.2 oz) LMP 07/23/2024 BMI 27.48 kg/m Well-appearing in no distress. Respirations not labored, speaking comfortably in full sentences Gravid abdomen IMAGING 09/22/2024 OVERALL ASSESSMENT -Daphney Al is a pleasant 24 y.o. at 16w0d [...] (2019) [facility] maternal- medicine :principles and practice [place] : [employer] Sonographic diagnosis of ovarian torsion: accuracy and predictive factors. Monica R, Jeff N, Zion N, Sohan-Chelsea G, Bright I. J Ultrasound Med. 2011 Jan;30(9):1205-10. Adnexal masses in : An updated review. Olivia AM, Dorie I, Adelaide DOMÍNGUEZ, Nory H, Alexi RICKS. [facility] J Med. 2017 Feb-Apr;7(4):153-157. doi: 10.4103/[id number]. PMID: [id number] Uterine fibroids, affecting I reviewed the uterine [...] and evaluation of bilateral adnexal masses, through [facility] Recommend repeat growth ultrasound in the 3rd trimester, through primary OB, given known uterine fibroid Anticipate term vaginal delivery at local hospital Precautions regarding shortness of breath and chest pain were reviewed with the patient today DISPOSITION: At this point the patient is in complete care of her commercial green building designer. Thank you for allowing me to participate in the care of Daphney Al. If there any questions please do not hesitate to contact us. Guadalupe Peres MD Maternal- Medicine [facility] [address] [place] [address] This document was created with [employer] technology. Though I make every effort to review the dictation as it is transcribed, on occasion the spoken word can be misinterpreted by the technology leading to inappropriate words, phrases, or sentences. This note is addressed to the requesting provider as a consultation for clinical guidance. Specific medical abbreviations are occasionally used and those are generally approved by the [place]?Board of?Obstetrics and?Gynecology?as well as?Graham chan abbreviations. The above plan of care was based solely on the diagnoses for which a consultation was requested. ?More frequent testing may be indicated based on her other medical/obstetrical conditions. The management of other or medical conditions is beyond the scope of requested consultation and will continue to be followed by the primary commercial green building designer or primary care provider. Note to patient: [...] risk Have you been seen here at [facility] in a previous ? No Recent ER visits or hospitalizations? No Bring blood sugar log or meter with you today? (Please bring them with you for every visit at [facility]) N/A Flu vaccine (Mar-July)? N/A Any concerns that you would like me to mention to the provider today? R calf bruising, +Homans sign, wants to make sure about cysts, feeling nervous about cervix being short, has never been this far along. Right calf = 36.4cm, Left calf = 39.0cm documented [facility] History of Present illness Narrative Reason for Appointment: Patient ID: Daphney Al is a 24 y.o. female who presents [...] 6 hours as needed for nausea. Vit w/Dd-Nmkpguoes-QV (PNV PO) pyridoxine (VITAMIN B-6) 25 mg, [...] vulgaris Endometriosis History of medical problems Miscarriage ([facility]) Ovarian cyst HISTORY PAST MEDICAL HISTORY SOCIAL [...] nursing note reviewed. Exam conducted with a vat house laborer present. Vitals: Estimated body mass index is 27.02 kg/m as calculated from the following: Height as of 02/06/24: 5' 6 . Weight as of this encounter: 167 lb 6.4 oz. BP: 106/68 Patient's last menstrual period was 07/23/2024. ASSESSMENT & PLAN ICD-10-CM 1. Well woman exam with routine gynecological exam Z01.419 Pap Smear 2. Second trimester ([facility]) Z34.92 POCT urinalysis dipstick manually resulted Alpha fetoprotein, maternal Alpha fetoprotein, maternal 3. 15 weeks gestation of ([facility]) Z3A.15 POCT urinalysis dipstick manually resulted Alpha [...] Jack Woods DO documented in this encounter [facility] 10-08-2024 History of Present illness Narrative Reason for Appointment: Patient ID: Daphney Al is a 24 y.o. female who presents [...] 6 hours as needed for nausea. Vit w/Zq-Iujorfotb-VL (PNV PO) pyridoxine (VITAMIN B-6) 25 mg, [...] nursing note reviewed. Exam conducted with a vat house laborer present. Vitals: Estimated body mass index is [...] or undercooked meat, and stay away from [facility]. Patient has been consulted regarding any further [...] Jack Woods DO documented in this encounter [facility] 09-19-2024 History of Present illness Narrative Reason for Appointment: Patient ID: Daphney Al is a 24 y.o. female who presents [...] the following prescription(s): aspirin, omeprazole, ondansetron, vit w/pz-wckokphhe-fe, and progesterone. Medical History: Active Ambulatory Problems [...] or undercooked meat, and stay away from [facility]. Patient has also been advised to not [...] Manjula Elias MA documented in this encounter [facility] 04-10-2024 History of Present illness Narrative Reason for Appointment: Patient ID: Daphney Al is a 24 y.o. female who presents for Infertility Patient presents today for Fertility Follow Up appointment. MEDICATIONS Current Outpatient Medications Medication Instructions aspirin 81 MG oral suspension Vit w/Ae-Njvwupssl-LA (PNV PO) ALLERGIES Allergies Allergen Reactions Cephalexin [...] nursing note reviewed. Exam conducted with a vat house laborer present. Vitals: Estimated body mass index is [...] Pt voiced understanding. Discussed LAST referral towards [facility]. Documented by Lisa Prasad LPN on behalf of: Jack Woods DO documented in this encounter [facility] 2024 History of Present illness Narrative Reason for Appointment: Patient ID: Daphney Al is a 23 y.o. female who presents for Infertility Patient presents today for Fertility Follow Up appointment. MEDICATIONS Current Outpatient Medications Medication Instructions aspirin 81 MG oral suspension Vit w/Sa-Okpwzaivg-SP (PNV PO) ALLERGIES Allergies Allergen Reactions Cephalexin [...] nursing note reviewed. Exam conducted with a vat house laborer present. Vitals: Estimated body mass index is [...] Jack Woods DO documented in this encounter [facility] 03-21-2023 Evaluation note Encounter Date Diagnosis Assessment [...] treatment plan. Patient left in stable condition [employer] Other Evaluation noteNo assessment information available [facility] Work Phone: Evaluation note* Diagnosis Encounter for infertility Hormone disorder Unspecified endocrine disorder documented in this encounter [facility] HealthcareEvaluation note* Diagnosis Female infertility Female infertility of unspecified origin History of miscarriage Personal history of other genital system and obstetric disorders documented in this encounter [facility] HealthcareEvaluation note* Diagnosis Missed menses , unspecified [...] right lower extremity [facility] Diagnosis Adnexal mass- Primary Other specified symptom associated with female genital organs Uterine fibroids affecting in second trimester Localized swelling of right lower extremity [facility] Diagnosis Well woman exam with [...] Date Surgical History tonsillectomy Surgical History laparoscopy [employer] Other InstructionsNot on filedocumented in this encounter [facility]ructionsNot on filedocumented in this encounter [facility]Reason for referral (narrative)No reason for referral [facility] Work Phone: Summary Purpose Family History No Family History Records Found Relationship Condition Age at Onset Recorded Date/T juliette father Congestive heart failure Unknown Advance Directives No Advanced Directives Records FoundDocuments on File Type Date Recorded Patient Director Of Reservations Expl anation Advance Directives and Living Will Power of Chlorinator Operator Advance Directive Response Recorded Date/ Time Advance Directives No August 08 7:47am Advance Directive Response Recorded Date/ Time Advance Directives No August 08 8:47am Discharge Instructions * Instructions* Keyla Leyva MD - 02/01/2019 Follow-up with CLINIC RECEPTIONIST * Attachments The following attachments cannot be sent through Care Everywhere. * Abdominal Pain ([place]) * Appendicitis ([place]) documented in this encounter Assessments Diagnosis Abdominal [...] DATE CREATED AUTHOR AUTHOR'S ORGANIZ ATION 05/05/2023 [facility] DATE CREATED AUTHOR AUTHOR'S ORGANIZ ATION 11/13/2024 [facility] DATE CREATED AUTHOR AUTHOR'S ORGANIZ ATION 11/13/2024 [facility] DATE CREATED AUTHOR AUTHOR'S ORGANIZ ATION 12/12/2024 [facility] DATE CREATED AUTHOR AUTHOR'S ORGANIZ ATION 01/18/2025 [facility] DATE CREATED AUTHOR AUTHOR'S ORGANIZ ATION 01/26/[address] [facility] Reason for Visit (unrecogniz ed section and content) Reason Comments Routine Visit Specialty Diagnoses / Procedures Referred By Ky t Referred To Contact Obstetrics and Gynecology Diagnoses Enlarged & Heterogeneous Bilateral Ovaries 2.3cm Isoechoic Left-sided Lesion Possible Endometrioma Procedures [place] UNLISTED EVALUATION AND MANAGEMENT SERVICE [facility] [address] [place] [address] Jack Woods DO [address] [place] [address] Phone: tel: fax: Referral ID Status Reason Start Date Expiration Date Visits Re quested Visits Authorized [id number] Closed 11/12/2024 05/11/2025 1 1 Reason Comments [...] December 05, 2023 End: December 05, 2023 Jack Woods DO Attending Provider Active Start : December 05, 2023 End: December 05, 2023 Team Status: Inactive Member Role Status Dates Zachary Mayes MD Primary Care Provider Active Start: December 07, 2023 End: December 07, 2023 Jack Woods DO Attending Provider Active Start : December 07, 2023 End: December 07, 2023 Team Status: Inactive Member Role Status Dates Zachary Mayes MD Primary Care Provider Active Start: December 09, 2023 End: December 09, 2023 Jack Woods DO Attending Provider Active Start : December 09, 2023 End: December 09, 2023 Team Status: Inactive Member Role Status Dates Zachary Mayes MD Primary Care Provider Active Start: December 20, 2023 End: December 20, 2023 Jack Woods DO Attending Provider Active Start : December 20, 2023 End: December 20, 2023 Team Status: Inactive Member Role Status Dates Zachary Mayes MD Primary Care Provider Active Start: December 22, 2023 End: December 22, 2023 Jack Woods DO Attending Provider Active Start : December 22, 2023 End: December 22, 2023 Team Status: Inactive Member Role Status Dates Zachary Mayes MD Primary Care Provider Active Start: December 28, 2023 End: December 28, 2023 Jack Woods DO Attending Provider Active Start : December 28, 2023 End: December 28, 2023 Team Status: Inactive Member Role Status Dates Zachary Mayes MD Primary Care Provider Active Start: January 05, 2024 End: January 05, 2024 Jack Woods DO Attending Provider Active Start : January 05, 2024 End: January 05, 2024 Cd Reactor Operator Head Relationship Specialty Start Date End Date Alberto Mayes MD [address] [place] [id number] PCP - General 05/02/23 Paloma Vazquez DO [address] [place] [address] Referring Physician Obstetrics and Gynecology 04/25/23 Cd Reactor Operator Head Relationship Specialty Start Date End Date Alberto Mayes MD [address] [place] [id number] PCP - General 05/02/23 Paloma Vazquez DO [address] [place] [address] Referring Physician Obstetrics and Gynecology 04/25/23 Cd Reactor Operator Head Relationship Specialty Start Date End Date Alberto Mayes MD [address] [place], [place] [address] [place] [address] PCP - General 05/02/23 Paloma Vazquez DO [address] [place] [address] Referring Physician Obstetrics and Gynecology 04/25/23 Cd Reactor Operator Head Relationship Specialty Start Date End Date Alberto Mayes MD [address] [place], [place] [address] [phone] PCP - General 05/02/23 Paloma Vazquez DO [address] [place] [address] Referring Physician Obstetrics and Gynecology 04/25/23 Cd Reactor Operator Head Relationship Specialty Start Date End Date Alberto Mayes MD [address] [place] [address] [place] [address] PCP - General 05/02/23 Paloma Vazquez DO [address] [place] [address] Referring Physician Obstetrics and Gynecology 04/25/23 Cd Reactor Operator Head Relationship Specialty Start Date End Date Alberto Mayes MD [address] [place], [place] [address] [phone] PCP - General 05/02/23 Paloma Vazquez DO [address] [place] [address] Referring Physician Obstetrics and Gynecology 04/25/23 Cd Reactor Operator Head Relationship Specialty Start Date End Date Alberto Mayes MD [address] [place] [address] PCP - General 05/02/23 Paloma Vazquez DO [address] [place] [address] Referring Physician Obstetrics and Gynecology 04/25/23 Cd Reactor Operator Head Relationship Specialty Start Date End Date Alberto Mayes MD [address] [place] [address] PCP - General 05/02/23 Paloma Vazquez DO [address] [place] [address] Referring Physician Obstetrics and Gynecology 04/25/23 Cd Reactor Operator Head Relationship Specialty Start Date End Date Alberto Mayes MD [address] [place] [address] PCP - General 05/02/23 Paloma Vazquez DO [address] [place] [address] Referring Physician Obstetrics and Gynecology 04/25/23 Cd Reactor Operator Head Relationship Specialty Start Date End Date Alberto Mayes MD [address] [place] [address] PCP - General 05/02/23 Paloma Vazquez DO [address] [place] [address] Referring Physician Obstetrics and Gynecology 04/25/23 Team Status: Inactive Member Role Status Dates Jack Woods DO Attending Provider Active Start : November 05, 2024 End: November 05, 2024 Cd Reactor Operator Head Relationship Specialty Start Date End Date Alberto Mayes MD [address] [place] [address] PCP - General 05/02/23 Paloma Vazquez DO [address] [place] [address] Referring Physician Obstetrics and Gynecology 04/25/23 Cd Reactor Operator Head Relationship Specialty Start Date End Date Alberto Mayse MD PCP - General 05/02/23 Cd Reactor Operator Head Relationship Specialty Start Date End Date Alberto Mayes MD PCP - General 05/02/23 Cd Reactor Operator Head Relationship Specialty Start Date End Date Alberto Mayes MD PCP - General 05/02/23 Cd Reactor Operator Head Relationship Specialty Start Date End Date Alberto Mayes MD PCP - General 05/02/23 Cd Reactor Operator Head Relationship Specialty Start Date End Date Alberto Mayes MD PCP - General 05/02/23 Cd Reactor Operator Head Relationship Specialty Start Date End Date Alberto Mayes MD PCP - General 05/02/23 Cd Reactor Operator Head Relationship Specialty Start Date End Date Alberto Mayes MD PCP - General 05/02/23 Cd Reactor Operator Head Relationship Specialty Start Date End Date Alberto Mayes MD PCP - General 05/02/23 Goals (unrecognized section and content) Goals [...] BE BASED ON THE PRIMARY CLINICAL RECORDS. [employer] [facility]. provides no warranty or guarantee of the accuracy or completeness of information in this document.
[2025-01-27 10:01] LABS: Glucose 1 Hour 150 mg/dL (<130)
== END 2025-01-27 08:15 | disposition home or self-care (01) ==
LOC: LAB 08:15
PROVIDERS: PCP Family Medicine; Visit Provider Obstetrics & Gynecology
DX: Z13.1 Encounter for screening for diabetes mellitus (principal)
CPT/HCPCS: 36415; 82950

== ENCOUNTER 2025-01-27 08:15 | Outpatient (OUT) | payer BC, SELFPAY ==
--- OUTSIDE RECORDS SUMMARY | 2025-01-27 08:27 | XMS_ITS | CCD ---
Author Organization [facility] Inform ion Partnership [facility] Care Team Providers Care Carpentry Instructor Name Role Phone KEYLA LEYVA Attending Unavailable Unavailable Primary Care Provider UnavailRina Carpio Unavailable MD Zachary Mayes Primary Care Provider DO Paloma Vazquez Attending Provider MD Zachary Mayes Primary Care Provider MD Jackie Reardon Attending Provider DO Jack Woods Attending Provider Paloma Vazquez DO Unavailable [facility] Gerber NO, [facility] Primary Care Provider [phone] Jack Woods DO Attending Provider [phone] Unavailable Primary Care Provider Unavailcasimiro e Zachary [...] [CEPHALEXIN] Drug Allergy 9 Nausea And Vomiting [place], [place] (16 sources) predniSONE; Translations: [PREDNISONE] Drug Allergy 9 Nausea And Vomiting [place], [place] (20 sources) Ciprofloxacin; Translations: [CIPROFLOXACIN] Drug Allergy 9 Vomiting [facility] (20 sources) Prednisone Propensity to adverse reactions 9 Nausea And Vomiting [facility] (1 source) Cephalexin Drug Allergy 0 [facility] Repository (1 source) predniSONE Drug Allergy 0 [facility] Repository Medications Current Medications Medication Drug [...] 4 MG tablet Indications: Gastroesophageal reflux in ([facility]) , Nausea and vomiting during ([facility]) Take 1 tablet (4 mg) by mouth [...] needed for nausea or vomiting. Active PNV 95-vsef-qlgagtvktoyc-dha 29 mg iron-1 mg -350 mg comb pack,tablet DR,capsule DR (2 sources) take 1 tablet by mouth in the morning PNV 03-cdfq-ejumqdeyqpgv-dha 29 mg iron-1 mg -350 mg comb pack,tablet DR,capsule DR Take 1 tablet by mouth in the morning. Active polysaccharide iron complex 391 mg oral capsule (5 sources) Start: 025 End: 026 take 1 capsule by mouth once daily iron polysaccharides (ProFe) 391.3 (180 Fe) MG capsule Indications: Second trimester ([facility]) Take 1 capsule (391.3 mg) by mouth Daily 30 capsule 6 01/07/2025 01/16/2025 Discontinued predniSONE 20 mg oral tablet (1 source) Start: 023 take 1 tablet by mouth every twelve hours prednisone 20 MG 1 tablet Orally BID for 5 Mar, Active Vit w/Fe-Methylfol- FA (PNV PO) (20 sources) Vit w/F q-Wtmqmnnft-GS (PNV PO) Active Progesterone 200 MG supposit [...] Range Facility Office Visiton 01-24-2025 Follow-up visit [id number] Daphney Al 2000 F Date Provider Department Center 01/24/2025 [id number] B[facility]LEY [facility] Hos Family History Problem Relation Age of Onset Hypertension Father Family Status - Relation Status Age at Mother Alive Father Alive Level of Service:95753 OK OFFICE/OUTPATIENT NEW LOW MDM 30 MINUTES Reason for Visit and Comments: New Patient [632] - Patient is here today as a new patient to establish care with cariology Syncope [506] Palpitations [878137] 26 weeks [Other] Normal [facility] CA ECHO DOPPLER COMPLETEon 0 01-21-2025 [place] [address] Cardiology Report Signed Patient: DAPHNEY AL MR#: [id number] : 2000 Acct:[id number] Age/Sex: 24 / F ADM Date: 01/20/25 Loc: CARD Attending Dr: Jayla Art Ordering Physician: Jayla Art Date of Service: 01/20/25 Procedure(s): CA echo doppler complete Accession Number(s): [id number] cc: Jayla Art; Alberto Mayes M.D. Patient Name: DAPHNEY AL MR#: [id number] : 2000 Exam Date: 01/20/2025 Ordering Doctor: [...] M.D. Signed By: 01/21/25958 DD/ 7 TD/TT: Credit Controller: [facility] Radiology, Radiologist, - 01/21/2025 [place] [address] Cardiology Report Signed Patient: DAPHNEY AL MR#: [id number] : 2000 Acct:[id number] Age/Sex: 24 / F ADM Date: 01/20/25 Loc: CARD Attending Dr: Jayla Art Ordering Physician: Jayla Art Date of Service: 01/20/25 Procedure(s): CA echo doppler complete Accession Number(s): [id number] cc: Jayla Art; Alberto Mayes M.D. Patient Name: DAPHNEY AL MR#: [id number] : 2000 Exam Date: 01/20/2025 Ordering Doctor: [...] 36.41 ml, 36.41 ml Dictated by: Randy aMrie M.D. on 01/21/2025 at 09:56 Approved by: Randy Marie M.D. on 01/21/2025 at 09:58 Dictated By: Randy Marie M.D. Signed By: 01/21/2559 DD/ 7 TD/TT: Credit Controller: [facility] Radiology Study observation (narrative) [facility] CA ECHO DOPPLER COMPLETEOrde red By: Radiologist Radiology on 01-21-2025 [facility] Healthcar e Work Phone: Urinalysis macro (dipstick) panel (U)on 01-16-2025 Bilirubin, UA Negative Negative - 4(70) +++ mg/dL [facility] Blood, UA Positive Negative - 50 Clarke/mcL [facility] Healthcare Comment on above: 3+ Clarity, UA Clear [facility] Healthca re Color, UA Yellow [facility] Healthcar e Glucose, UA Negative Negative - 1999(110) ++++ mg/dL [facility] Interpretation and review of laboratory results Abnormal [facility] Ketones, UA Negative Negative - 160(16) ++++ mg/dL [facility] Leukocytes, UA Positive Negative - 500+++ Kamaljit/mcL [facility] Healthcare Comment on above: 2+ Nitrite, UA Negative Negative - Positive [facility] pH, UA 6 5 - 9 [facility] Healthcar e Protein, UA Positive Negative - 1999(20) ++++ mg/dL [facility] Spec Grav, UA 1.02 1 - 1.03 [facility] Urobilinogen, UA 1.0 0.2 - 12 mg/dL [facility] Urinalysis macro (dipstick) panel (U)on 01-07-2025 Bilirubin, UA Negative Negative - 4(70) +++ mg/dL [facility] Blood, UA Negative Negative - 50 Clarke/mcL [facility] Healthcare Clarity, UA Clear [facility] Healthca re Color, UA Yellow [facility] Healthcar e Glucose, UA Negative Negative - 1999(110) ++++ mg/dL [facility] Interpretation and review of laboratory results Abnormal [facility] Ketones, UA Negative Negative - 160(16) ++++ mg/dL [facility] Leukocytes, UA Positive Negative - 500+++ Kamaljit/mcL [facility] Comment on above: 3+ Nitrite, UA Negative Negative - Positive [facility] Healthcare pH, UA 6.5 5 - 9 [facility] Protein, UA Negative Negative - 1999(20) ++++ mg/dL [facility] Spec Grav, UA 1.01 1 - 1.03 [facility] Urobilinogen, UA 0.2 0.2 - 12 mg/dL [facility] Urinalysis macro (dipstick) panel (U)on 12-31-2024 Bilirubin, UA Negative Negative - 4(70) +++ mg/dL [facility] Healthcare Blood, UA Negative Negative - 50 Clarke/mcL [facility] Healthcare Clarity, UA Clear [facility] Health[facility] re Color, UA Yellow [facility] Glucose, UA Negative Negative - 1999(110) ++++ mg/dL [facility] Interpretation and review of laboratory results Abnormal [facility] Ketones, UA Negative Negative - 160(16) ++++ mg/dL [facility] Leukocytes, UA Negative Negative - 500+++ Kamaljit/mcL [facility] Healthcare Nitrite, UA Negative Negative - Positive [facility] pH, UA 6 5 - 9 [facility] Healthcar e Protein, UA Negative Negative - 1999(20) ++++ mg/dL [facility] Healthcare Spec Grav, UA 1.01 1 - 1.03 [facility] care Urobilinogen, UA 1.0 0.2 - 12 mg/dL [facility] Urinalysis macro (dipstick) panel (U)on 12-03-2024 Bilirubin, UA Negative Negative - 4(70) +++ mg/dL [facility] Healthcare Blood, UA Negative Negative - 50 Clarke/mcL [facility] Healthcare Clarity, UA Clear [facility] re Color, UA Yellow [facility] Glucose, UA Negative Negative - 1999(110) ++++ mg/dL [facility] Interpretation and review of laboratory results Abnormal [facility] Ketones, UA Negative Negative - 160(16) ++++ mg/dL [facility] Healthcare Leukocytes, UA Positive Negative - 500+++ Kamaljit/mcL [facility] Healthcare Comment on above: Small Nitrite, UA Negative Negative - Positive [facility] Healthcare pH, UA 7 5 - 9 [facility] Protein, UA Negative Negative - 1999(20) ++++ mg/dL [facility] Healthcare Spec Grav, UA 1.01 1 - 1.03 [facility] Urobilinogen, UA 1.0 0.2 - 12 mg/dL [facility] e Free Cell DNA (Non-Pro Medica Send Out)on 11-12-2024 [facility] PATHOLOGY REQUEST FOR LAB CO RPon 11-12-2024 PATHOLOGY REQUEST FOR LAB GIA [facility] Comment on above: See report. Scanned copy available in EMR. SKIN TAG CHELSEY [facility] IGP,APTIMA HPV,AGE GDLNon AGE GDLN ACOG TESTING Note . [facility] Comment on above: TESTS RESULT FLAG UN ITS REF RANGE LAB Clinician Provided Cytology Information Source.............Cervix No. of containers..01 ThinPrep Vial Age Algo ACOG Nery... - 01 FLAG LEGEND: L-Low Normal,H-High Normal,LL-Alert Low,HH-Alert High <-Panic Low,>-Panic High,A-Abnormal,AA-Critical Abnormal Performed at: 01 =G Laurie Sánchez [address] [facility] [place] [address] Gypsy Mtz MD, IGP, RFX APTIMA HPV ASCU Note . [facility] Comment on above: TESTS RESULT FLAG UN ITS REF RANGE LAB DIAGNOSIS: 02 NEGATIVE FOR INTRAEPITHELIAL LESION OR MALIGNANCY. THIS SPECIMEN WAS RESCREENED PART OF OUR ENVIRONMENTAL ATTORNEY PROGRAM. Specimen adequacy: 02 Satisfactory for evaluation. Endocervical and/or squamous metaplastic cells (endocervical component) are present. Performed by: 02 Felicity Rosen, Washer Engineer Helper ([facility]) QC reviewed by: 02 Esme Mahoney, Washer Engineer Helper ([facility]) . 02 Note: Note 02 The [...] Low,>-Panic High,A-Abnormal,AA-Critical Abnormal Performed at: [address] [facility] [address] [place] [address] Gypsy Mtz MD, Performed at: =G - [facility] [address] [id number] Charger Operator: Gypsy Mtz MD, Phone: [phone] Performed at: [facility] [address] [id number] Charger Operator: Gypsy Mtz MD, Phone: [phone] [facility] CERVIX [facility] RECURRENT [...] Pathology Request for Lab Gia Normal [facility] Comment on above: Order Comment: SKIN TAG Result Comment: See report. Scanned copy available in EMR. PERFORMED BY: [address] [place] [address] PATHOLOGIST SERVICE CENTER SUPERVISOR JOSUÉ VALENZUELA M.D. Performed By: #### P JOO #### [facility] , Urinalysis macro (dipstick) panel (U)on 11-05-2024 Bilirubin, UA Negative Negative - 4(70) +++ mg/dL [facility] Blood, UA Negative Negative - 50 Clarke/mcL [facility] Clarity, UA Clear [facility] Health[facility] re Color, UA Yellow [facility] Glucose, UA Negative Negative - 2000(110) ++++ mg/dL [facility] Interpretation and review of laboratory results Normal [facility] Ketones, UA Negative Negative - 160(16) ++++ mg/dL [facility] Leukocytes, UA Negative Negative - 500+++ Kamaljit/mcL [facility] Nitrite, UA Negative Negative - Positive [facility] pH, UA 5.5 5 - 9 [facility] Healthcar e Protein, UA Negative Negative - 1999(20) ++++ mg/dL [facility] Spec Grav, UA 1.02 1 - 1.03 [facility] Urobilinogen, UA 1.0 0.2 - 12 mg/dL [facility] Healthcar e Urinalysis macro (dipstick) panel (U)on 10-08-2024 Bilirubin, UA Negative Negative - 4(70) +++ mg/dL [facility] Blood, UA Negative Negative - 50 Clarke/mcL [facility] Clarity, UA Clear [facility] re Color, UA Yellow [facility] e Glucose, UA Negative Negative - 1999(110) ++++ mg/dL [facility] Interpretation and review of laboratory results Abnormal [facility] Ketones, UA Negative Negative - 160(16) ++++ mg/dL [facility] Leukocytes, UA Trace Negative - 500+++ Kamaljit/mcL [facility] Nitrite, UA Negative Negative - Positive [facility] pH, UA 6 5 - 9 [facility] Protein, UA Negative Negative - 1999(20) ++++ mg/dL [facility] Spec Grav, UA 1.02 1 - 1.03 [facility] Urobilinogen, UA 0.2 0.2 - 12 mg/dL [facility] Healthcar e MLR HEMOGLOBIN A1Con 025 Glucose [Mass/Vol] 100 mg/dL [facility] ealthcare HbA1c (Bld) [Mass fraction] 5.1 % 4.5 - 6.2 % [facility] Comment on above: ADA RECOMMENDED LIMI T 4.0 - 6.0 ADA THERAPEUTIC TARGET < 7.0 ACTION SUGGESTED > 7.0 [facility] Healthcar e HCG ( test) Ql (U)o n 09-19-2024 Interpretation and review of laboratory results Abnormal [facility] Preg Test, Ur Positive Negative [facility] Healthcar e US OB TRANSVAGINALon 05-08-2 025 [...] II, MD, PHD at 22-Sep-2024 08:21:31 PM [facility] Normal Not Available Comment on above: Order Comment: US OB TRANSVAGINAL No LMP recorded. Urinalysis macro (dipstick) panel (U)on 09-19-2024 Bilirubin, UA Negative Negative - 4(70) +++ mg/dL [facility] Blood, UA Negative Negative - 50 Clarke/mcL [facility] Clarity, UA Clear [facility] Healthca re Color, UA Yellow [facility] Healthcar e Glucose, UA Negative Negative - 1999(110) ++++ mg/dL [facility] Interpretation and review of laboratory results Normal [facility] Ketones, UA Negative Negative - 160(16) ++++ mg/dL [facility] Leukocytes, UA Negative Negative - 500+++ Kamaljit/mcL [facility] Nitrite, UA Negative Negative - Positive [facility] pH, UA 7 5 - 9 [facility] e Protein, UA Negative Negative - 1999(20) ++++ mg/dL [facility] Spec Grav, UA 1.02 1 - 1.03 [facility] Urobilinogen, UA 0.2 0.2 - 12 mg/dL [facility] US OB TRANSVAGINALon 025 [...] II, MD, PHD at 28-Aug-2024 11:25:24 PM [facility] Normal Not Available Comment on above: Order Comment: US OB TRANSVAGINAL No LMP recorded. TBH PREG QUANT HCGon 025 HCG QUANTITATIVE 2576 mIU/mL [facility] Comment on above: 5-50 0.2-1 WEEK 50-500 1-2 WEEKS 100-5,000 2-3 WEEKS 500-10,000 3-4 WEEKS 1,000-50,000 4-5 WEEKS 10,000-100,000 5-6 WEEKS 15,000-200,000 6-8 WEEKS 10,000-100,000 2-3 MONTHS CLINIS[facility] Healthcar e TBH PREG QUANT HCGon 025 HCG QUANTITATIVE 964 mIU/mL [facility] Comment on above: 5-50 0.2-1 WEEK 50-500 1-2 WEEKS 100-5,000 2-3 WEEKS 500-10,000 3-4 WEEKS 1,000-50,000 4-5 WEEKS 10,000-100,000 5-6 WEEKS 15,000-200,000 6-8 WEEKS 10,000-100,000 2-3 [facility]TH[facility] TBH PREG QUANT HCGon 025 HCG QUANTITATIVE 513 mIU/mL [facility] Comment on above: 5-50 0.2-1 WEEK 50-500 1-2 WEEKS 100-5,000 2-3 WEEKS 500-10,000 3-4 WEEKS 1,000-50,000 4-5 WEEKS 10,000-100,000 5-6 WEEKS 15,000-200,000 6-8 WEEKS 10,000-100,000 2-3 MONTHS [facility] TBH PREG QUANT HCGon 025 HCG QUANTITATIVE 197 mIU/mL [facility] Comment on above: 5-50 0.2-1 WEEK 50-500 1-2 WEEKS 100-5,000 2-3 WEEKS 500-10,000 3-4 WEEKS 1,000-50,000 4-5 WEEKS 10,000-100,000 5-6 WEEKS 15,000-200,000 6-8 WEEKS 10,000-100,000 2-3 MONTHS CLIN[facility] TBH PREG QUANT HCGon 025 HCG QUANTITATIVE 42 mIU/mL [facility] Comment on above: 5-50 0.2-1 WEEK 50-500 1-2 WEEKS 100-5,000 2-3 WEEKS 500-10,000 3-4 WEEKS 1,000-50,000 4-5 WEEKS 10,000-100,000 5-6 WEEKS 15,000-200,000 6-8 WEEKS 10,000-100,000 2-3 MONTHS [facility] TBH PREG QUANT HCGon 025 HCG QUANTITATIVE 7 mIU/mL [facility] Comment on above: 5-50 0.2-1 WEEK 50-500 1-2 WEEKS 100-5,000 2-3 WEEKS 500-10,000 3-4 WEEKS 1,000-50,000 4-5 WEEKS 10,000-100,000 5-6 WEEKS 15,000-200,000 6-8 WEEKS 10,000-100,000 2-[facility] PROGESTERONEon 5 PROGESTERONE 26.8 ng/mL . [facility] are Comment on above: Follicular phase 0.1 - 0.9 Luteal phase 1.8 - 23.9 Ovulation phase 0.1 - 12.0 First trimester 11.0 - 44.3 Second trimester 25.4 - 83.3 Third trimester 58.7 - 214.0 Postmenopausal 0.0 - 0.1 Performed at: [facility] [employer] [id number] Charger Operator: Jordin Rao PhD, Phone: [phone] [facility][note 3] e ALL PROGESTERONEon 4 PROGESTERONE 59.6 ng/mL . [facility] are Comment on above: Follicular phase 0.1 - 0.9 Luteal phase 1.8 - 23.9 Ovulation phase 0.1 - 12.0 First trimester 11.0 - 44.3 Second trimester 25.4 - 83.3 Third trimester 58.7 - 214.0 Postmenopausal 0.0 - 0.1 Performed at: [facility] [employer] [id number] Charger Operator: Jordin Rao PhD, Phone: [phone] [facility] TBH PREG QUANT HCGon 024 HCG QUANTITATIVE <1 mIU/mL [facility] Comment on above: 5-50 0.2-1 WEEK 50-500 1-2 WEEKS 100-5,000 2-3 WEEKS 500-10,000 3-4 WEEKS 1,000-50,000 4-5 WEEKS 10,000-100,000 5-6 WEEKS 15,000-200,000 6-8 WEEKS 10,000-100,000 2-3 MONTHS [facility] Alexandre de Pariscar e ALL PROGESTERONEon 4 PROGESTERONE 17.9 ng/mL . [facility] are Comment on above: Follicular phase 0.1 - 0.9 Luteal phase 1.8 - 23.9 Ovulation phase 0.1 - 12.0 First trimester 11.0 - 44.3 Second trimester 25.4 - 83.3 Third trimester 58.7 - 214.0 Postmenopausal 0.0 - 0.1 Performed at: [facility] Lab[address] [id number] Charger Operator: Jordin Rao PhD, Phone: [phone] [facility] [employer] MLR HEMOGLOBIN A1Con 024 Glucose [Mass/Vol] 88 mg/dL [facility] HbA1c (Bld) [Mass fraction] 4.7 % 4.5 - 6.2 % [facility] Comment on above: ADA RECOMMENDED LIMI T 4.0 - 6.0 ADA THERAPEUTIC TARGET < 7.0 ACTION SUGGESTED > 7.0 [facility] Alexandre de Pariscar e Choriogonadotropin.beta subu nit [Units/volume] in Serum or PlasmaOrdered By: Jack Woods on 01-05-2024 HCG.beta subunit Qn 4.96 m[IU]/mL [facility] Comment on above: Approximate Approxim ate hCG Gestational Age Range (mIU/ml) (weeks)0.2-1 5-50 1-2 50-500 2-3 100-5,000 3-4 500-10,000 4-5 1,000-50,000 5-6 10,000-100,000 6-8 15,000-200,000 8-12 10,000-100,000 HCG,Quantitativeon 4 HCG,Quantitative 4.96 m[iU]/mL Normal [facility] Comment on above: Result Comment: Appr oximate Approximate hCG Gestational Age Range (mIU/ml) (weeks) 0.2-1 5-50 1-2 50-500 2-3 100-5,000 3-4 500-10,000 4-5 1,000-50,000 5-6 10,000-100,000 6-8 15,000-200,000 8-12 10,000-100,000 PERFORMED BY: [place] [address] PATHOLOGIST SERVICE [facility]ENTER SUPERVISOR TO ANAYA M.D. Performed By: #### H CGQNT #### [address] [id number] Choriogonadotropin.beta subu nit [Units/volume] in Serum or PlasmaOrdered By: Jack Woods on 12-28-2023 HCG.beta subunit Qn 108.32 m[IU]/mL [facility] Comment on above: Approximate Approxim ate hCG Gestational Age Range (mIU/ml) (weeks)0.2-1 5-50 1-2 50-500 2-3 100-5,000 3-4 500-10,000 4-5 1,000-50,000 5-6 10,000-100,000 6-8 15,000-200,000 8-12 10,000-100,000 HCG,Quantitativeon 4 HCG,Quantitative 108.32 m[iU]/mL Normal [facility] Comment on above: Result Comment: Appr oximate Approximate hCG Gestational Age Range (mIU/ml) (weeks) 0.2-1 5-50 1-2 50-500 2-3 100-5,000 3-4 500-10,000 4-5 1,000-50,000 5-6 10,000-100,000 6-8 15,000-200,000 8-12 10,000-100,000 PERFORMED BY: [address] [address] PATHOLOGIST SERVICE CENTER SUPERVISOR JIANLAN SUN M.D. Performed By: #### H CGQNT #### [facility] [address] [place], [place] [id number] [facility] Choriogonadotropin.beta subu nit [Units/volume] in Serum or PlasmaOrdered By: Jack Woods on 12-22-2023 HCG.beta subunit Qn 1030.88 m[IU]/mL [facility] Comment on above: Approximate Approxim ate hCG Gestational Age Range (mIU/ml) (weeks)0.2-1 5-50 1-2 50-500 2-3 100-5,000 3-4 500-10,000 4-5 1,000-50,000 5-6 10,000-100,000 6-8 15,000-200,000 8-12 10,000-100,000 HCG,Quantitativeon HCG,Quantitative 1030.88 m[iU]/mL Normal Th e [facility] Comment on above: Result Comment: Appr oximate Approximate hCG Gestational Age Range (mIU/ml) (weeks) 0.2-1 5-50 1-2 50-500 2-3 100-5,000 3-4 500-10,000 4-5 1,000-50,000 5-6 10,000-100,000 6-8 15,000-200,000 8-12 10,000-100,000 PERFORMED BY: [place] [address] PATHOLOGIST SERVICE CENTER SUPERVISOR TO ANAYA M.D. Performed By: #### H CGQNT #### [facility] [address] [place], [place] [id number] [facility] Choriogonadotropin.beta subu nit [Units/volume] in Serum or PlasmaOrdered By: Jack Woods on 12-20-2023 HCG.beta subunit Qn 988.06 m[IU]/mL [facility] Comment on above: Approximate Approxim ate hCG Gestational Age Range (mIU/ml) (weeks)0.2-1 5-50 1-2 50-500 2-3 100-5,000 3-4 500-10,000 4-5 1,000-50,000 5-6 10,000-100,000 6-8 15,000-200,000 8-12 10,000-100,000 HCG,Quantitativeon 4 HCG,Quantitative 988.06 m[iU]/mL Normal [facility] Comment on above: Result Comment: Appr oximate Approximate hCG Gestational Age Range (mIU/ml) (weeks) 0.2-1 5-50 1-2 50-500 2-3 100-5,000 3-4 500-10,000 4-5 1,000-50,000 5-6 10,000-100,000 6-8 15,000-200,000 8-12 10,000-100,000 PERFORMED BY: [place] [address] PATHOLOGIST SERVICE CENTER SUPERVISOR TO ANAYA M.D. Performed By: #### H CGQNT #### [address] US OB transvaginalon 024 US OB transvaginal [facility] Main [place] [address] [place] [address] Ultrasound Report Signed Patient: Daphney Al MR#: [id number] : 2000 Acct:[id number] Age/Sex: 23 / F ADM Date: 12/20/23 Loc: Room: Type: [facility] Attending Dr: Jack Woods DO Ordering Provider: Jack Woods Date of Service: 12/20/23 US/US OB <= 14 weeks fetus: N92.6 ([id number]) US/US OB transvaginal: N92.6 Copies to: Jack [...] Lisa Rojas M.D.12/20/2023 5:46 PM Dictation Location: [place] [address] Tech: Deb Real Transcribed By: FLETCHER 12/20/23 174 Dictated By: Lisa Rojas MD 12/20/23 1739 Signed By: 12/20/23 174 Normal [facility] Choriogonadotropin.beta subu nit [Units/volume] in Serum or PlasmaOrdered By: Jack Woods on 12-09-2023 HCG.beta subunit Qn 295.86 m[IU]/mL [facility] Comment on above: Approximate Approxim ate hCG Gestational Age Range (mIU/ml) (weeks)0.2-1 5-50 1-2 50-500 2-3 100-5,000 3-4 500-10,000 4-5 1,000-50,000 5-6 10,000-100,000 6-8 15,000-200,000 8-12 10,000-100,000 HCG,Quantitativeon 4 HCG,Quantitative 295.86 m[iU]/mL Normal [facility] Comment on above: Result Comment: Appr oximate Approximate hCG Gestational Age Range (mIU/ml) (weeks) 0.2-1 5-50 1-2 50-500 2-3 100-5,000 3-4 500-10,000 4-5 1,000-50,000 5-6 10,000-100,000 6-8 15,000-200,000 8-12 10,000-100,000 PERFORMED BY: [place] [address] PATHOLOGIST SERVICE [facility]ENTER SUPERVISOR TO ANAYA M.D. Performed By: #### H CGQNT #### [address] [address] [facility] Choriogonadotropin.beta subu nit [Units/volume] in Serum or PlasmaOrdered By: Jack Woods on 12-07-2023 HCG.beta subunit Qn 135.80 m[IU]/mL [facility] Comment on above: Approximate Approxim ate hCG Gestational Age Range (mIU/ml) (weeks)0.2-1 5-50 1-2 50-500 2-3 100-5,000 3-4 500-10,000 4-5 1,000-50,000 5-6 10,000-100,000 6-8 15,000-200,000 8-12 10,000-100,000 HCG,Quantitativeon 4 HCG,Quantitative 135.80 m[iU]/mL Normal [facility] Comment on above: Result Comment: Appr oximate Approximate hCG Gestational Age Range (mIU/ml) (weeks) 0.2-1 5-50 1-2 50-500 2-3 100-5,000 3-4 500-10,000 4-5 1,000-50,000 5-6 10,000-100,000 6-8 15,000-200,000 8-12 10,000-100,000 PERFORMED BY: [address] [id number] [facility] [employer] M.D. Performed By: #### H CGQNT #### [address] [address] [facility] Choriogonadotropin.beta subu nit [Units/volume] in Serum or PlasmaOrdered By: AMBAR Reardon on 12-05-2023 HCG.beta subunit Qn 69.85 m[IU]/mL F [facility] Comment on above: Approximate Approxim ate hCG Gestational Age Range (mIU/ml) (weeks)0.2-1 5-50 1-2 50-500 2-3 100-5,000 3-4 500-10,000 4-5 1,000-50,000 5-6 10,000-100,000 6-8 15,000-200,000 8-12 10,000-100,000 HCG,Quantitativeon 4 HCG,Quantitative 69.85 m[iU]/mL Normal [facility] Comment on above: Result Comment: Appr oximate Approximate hCG Gestational Age Range (mIU/ml) (weeks) 0.2-1 5-50 1-2 50-500 2-3 100-5,000 3-4 500-10,000 4-5 1,000-50,000 5-6 10,000-100,000 6-8 15,000-200,000 8-12 10,000-100,000 PERFORMED BY: [place] [address] [facility] SUPERVISOR TO ANAYA M.D. Performed By: #### H CGQNT #### [place] [id number] [facility] Progesteroneon 12-05-2023 Progesterone 26.5 ng/mL Normal . [facility] Comment on above: Result Comment: Foll icular phase 0.1 - 0.9 Luteal phase 1.8 - 23.9 Ovulation phase 0.1 - 12.0 First trimester 11.0 - 44.3 Second trimester 25.4 - 83.3 Third trimester 58.7 - 214.0 Postmenopausal 0.0 - 0.1 Performed at: [address] [id number] Charger Operator: Jordin Rao PhD, Phone: [phone] PERFORMED BY: [facility] [place] [address] PATHOLOGIST SERVICE [facility]ENTER SUPERVISOR TO ANAYA M.D. Performed By: #### P JOO #### [facility] , Serum or plasma progesterone measurement (mass/volume)Ordered By: Jack Woods on 12-05-2023 Progesterone [Mass/Vol] 26.5 ng/mL . [facility] Comment on above: Follicular phase 0.1 - 0.9 Luteal phase 1.8 - 23.9 Ovulation phase 0.1 - 12.0 First trimester 11.0 - 44.3 Second trimester 25.4 - 83.3 Third trimester 58.7 - 214.0 Postmenopausal 0.0 - 0.1Performed at: [facility] [address] [id number] Director: Jordin Rao PhD, Phone: [phone] Choriogonadotropin.beta subu nit [Units/volume] in Serum or PlasmaOrdered By: AMBAR Reardon on 12-02-2023 HCG.beta subunit Qn 12.64 m[IU]/mL [facility] Comment on above: Approximate Approxim ate hCG Gestational Age Range (mIU/ml) (weeks)0.2-1 5-50 1-2 50-500 2-3 100-5,000 3-4 500-10,000 4-5 1,000-50,000 5-6 10,000-100,000 6-8 15,000-200,000 8-12 10,000-100,000 HCG,Quantitativeon 4 HCG,Quantitative 12.64 m[iU]/mL Normal [facility] Comment on above: Result Comment: Appr oximate Approximate hCG Gestational Age Range (mIU/ml) (weeks) 0.2-1 5-50 1-2 50-500 2-3 100-5,000 3-4 500-10,000 4-5 1,000-50,000 5-6 10,000-100,000 6-8 15,000-200,000 8-12 10,000-100,000 PERFORMED BY: [facility] [address] [place] [address] PATHOLOGIST SERVICE CENTER SUPERVISOR TO ANAYA M.D. Performed By: #### H CGQNT #### [facility] [address] [place] [address] [facility] Operative Reporton 3 Operative Report [id number] Normal [facility] Quick Strepon 03-21-2023 S. pyogenes Org specific cx Ql (Throat) Negative Mobile Event Guide Other Quick Strep [employer] [facility] [email or web address] Other CBC Auto Differentialon 01-14 Basophils (Bld) [#/Vol] 0.00 10*3/uL [place] Basophils/100 WBC (Bld) 0 % 0 - 2 % [place] Differential Type YES [place] Eosinophils (Bld) [#/Vol] 0.20 10*3/uL [place] Eosinophils/100 WBC (Bld) 2 % 0 - 5 % [place] Erythrocyte distribution width (RBC) [Ratio] 12.6 % 12.1 - 15.2 % [place] Hematocrit (Bld) [Volume fraction] 39.8 % 36 - 46 % [place] Hemoglobin (Bld) [Mass/Vol] 13.8 g/dL 12 - 16 g/dL [place] Interpretation and review of laboratory results Abnormal [place] Lymphocytes (Bld) [#/Vol] 1.70 10*3/uL [place] Lymphocytes/100 WBC (Bld) 14 % Low 15 - 40 % [place] MCH (RBC) [Entitic mass] 31.5 pg 26 - 34 pg [place] MCHC (RBC) [Mass/Vol] 34.6 g/dL 31 - 37 g/dL [place] MCV (RBC) [Entitic vol] 91.2 fL 80 - 100 fL [place] Monocytes (Bld) [#/Vol] 0.60 10*3/uL [place] Monocytes/100 WBC (Bld) 5 % 4 - 8 % [place] Platelet mean volume (Bld) [Entitic vol] NOT REPORTED 6 - 12 fL [place] Platelets (Bld) [#/Vol] NOT REPORTED [place] Platelets (Bld) [#/Vol] 287 10*3/uL [place] RBC (Bld) [#/Vol] 4.37 10*6/uL 4 - 5.2 m/uL [place] RBC morphology finding Nom (Bld) NOT REPORTED [place] Segmented neutrophils/100 WBC (Bld) 79 % High 47 - 75 % [place] Segs Absolute 9.50 High [place] WBC (Bld) [#/Vol] 12.0 10*3/uL [place] WBC (Bld) [#/Vol] NOT REPORTED per 100 WBC [place] WBC Morphology NOT REPORTED [place], [place] CBC with Diffon 02-01-2019 Abs. Basophil 0.00 k/uL Normal 0.0-0.2 [facility] Comment on above: Performed By: #### C P, CDP #### [facility] [address] [place] [address] Charger Operator: Jonathan Chisholm MD Abs.Neutrophil (Seg) 9.50 k/uL High 2.5-7.0 [facility] Comment on above: Performed By: #### C P, CDP #### [facility] [address] [place] [address] Charger Operator: Jonathan Chisholm MD Auto Diff Performed YES Normal [facility] Comment on above: Performed By: #### C P, CDP #### [facility] [address] [place] [address] Charger Operator: Jonathan Chisholm MD Basophils/100 WBC (Bld) 0 % Normal 0-2 [facility] Comment on above: Performed By: #### C P, CDP #### [facility] [address] [place] [address] Charger Operator: Jonathan Chisholm MD Eosinophils (Bld) [#/Vol] 0.20 10*3/uL Normal 0.0-0.4 [facility] Comment on above: Performed By: #### C P, CDP #### [facility] [address] [place] [address] Charger Operator: Jonathan Chisholm MD Eosinophils/100 WBC (Bld) 2 % Normal 0-5 [facility] Comment on above: Performed By: #### C P, CDP #### [facility] [address] [place] [address] Charger Operator: Jonathan Chisholm MD Erythrocyte distribution width (RBC) [Ratio] 12.6 % Normal 12.1-15.2 [facility] Comment on above: Performed By: #### C P, CDP #### [facility] [address] [place] [address] Charger Operator: Jonathan Chisholm MD Hematocrit (Bld) [Volume fraction] 39.8 % Normal 36-46 [facility] Comment on above: Performed By: #### C P, CDP #### [facility] [address] [place] [address] Charger Operator: Jonathan Chisholm MD Hemoglobin (Bld) [Mass/Vol] 13.8 g/dL Normal 12.0-16.0 [facility] Comment on above: Performed By: #### C P, CDP #### [facility] [address] [place] [address] Charger Operator: Jonathan Chisholm MD Lymphocytes (Bld) [#/Vol] 1.70 10*3/uL Normal 1.2-5.2 [facility] Comment on above: Performed By: #### C P, CDP #### [facility] [address] [place] [address] Charger Operator: Jonathan Chisholm MD Lymphocytes/100 WBC (Bld) 14 % Low 15-40 [facility] Comment on above: Performed By: #### C P, CDP #### [facility] [address] [place], [place] [id number] Charger Operator: Jonathan Chisholm MD MCH (RBC) [Entitic mass] 31.5 pg Normal 26-34 [facility] Comment on above: Performed By: #### C P, CDP #### [facility] [address] [place] [address] Charger Operator: Jonathan Chisholm MD MCHC (RBC) [Mass/Vol] 34.6 g/dL Normal 31-37 [facility] Comment on above: Performed By: #### C P, CDP #### [facility] [address] [place] [address] Charger Operator: Jonathan Chisholm MD MCV (RBC) [Entitic vol] 91.2 fL Normal 80-100 [facility] Comment on above: Performed By: #### C P, CDP #### [facility] [address] [place] [address] Charger Operator: Jonathan Chisholm MD Monocytes (Bld) [#/Vol] 0.60 10*3/uL Normal 0.0-1.0 [facility] Comment on above: Performed By: #### C P, CDP #### [facility] [address] [place], [place] [phone] Charger Operator: Jonathan Chisholm MD Monocytes/100 WBC (Bld) 5 % Normal 4-8 [facility] Comment on above: Performed By: #### C P, CDP #### [facility] [address] [place] [address] Charger Operator: Jonathan Chisholm MD Neutrophil (Seg) 79 % High 47-75 [facility] Comment on above: Performed By: #### C P, CDP #### [facility] [address] [place] [address] Charger Operator: Jonathan Chisholm MD Platelets (Bld) [#/Vol] 287 10*3/uL Normal 140-450 [facility] Comment on above: Performed By: #### C P, CDP #### [facility] [address] [place] [address] Charger Operator: Jonathan Chisholm MD RBC (Bld) [#/Vol] 4.37 10*6/uL Normal 4.0-5.2 [facility] Comment on above: Performed By: #### C P, CDP #### [facility] [address] [place] [address] Charger Operator: Jonathan Chisholm MD WBC (Bld) [#/Vol] 12.0 10*3/uL Normal 4.5-13.5 [facility] Comment on above: Performed By: #### C P, CDP #### [facility] [address] [place] [address] Charger Operator: Jonathan Chisholm MD Abs.Imm.Granulocyte NOT REPORTED Normal 0.00-0.30 [facility] Comment on above: Performed By: #### C P, CDP #### [facility] [address] [place], [place] [phone] Charger Operator: Jonathan Chisholm MD Immature granulocytes (Bld) [#/Vol] NOT REPORTED Normal 0 [facility] Comment on above: Performed By: #### C P, CDP #### [facility] [address] [place] [address] ([phone] Charger Operator: Jonathan Chisholm MD NRBC Automated NOT REPORTED Normal [facility] Comment on above: Performed By: #### C P, CDP #### [facility] [address] [place] [address] Charger Operator: Jonathan Chisholm MD Platelet mean volume (Bld) [Entitic vol] NOT REPORTED Normal 6.0-12.0 [facility] Comment on above: Performed By: #### C P, CDP #### [facility] [address] [place] [address] Charger Operator: Jonathan Chisholm MD Platelets (Bld) [#/Vol] NOT REPORTED Normal [facility] Comment on above: Performed By: #### C P, CDP #### [facility] [address] [place] [address] Charger Operator: Jonathan Chisholm MD RBC morphology finding Nom (Bld) NOT REPORTED Normal [facility] Comment on above: Performed By: #### C P, CDP #### [facility] [address] [place] [address] Charger Operator: Jonathan Chisholm MD WBC Morphology NOT REPORTED Normal [facility] Comment on above: Performed By: #### C P, CDP #### [facility] [address] [place] [address] Charger Operator: Jonathan Chisholm MD Comp Metabolic Profon 2018 (cont.) Normal [facility] Comment on above: Result Comment: Aver age GFR for 20-29 years old: 116 mL/min/1.73sq m Chronic Kidney Disease: <60 mL/min/1.73sq m Kidney failure: <15 mL/min/1.73sq m eGFR calculated using average adult body mass. Additional eGFR calculator available at: http://www.SkuServe.com/multiple_crcl_2012.htm Performed By: #### C P, CDP #### [facility] [address] [place] [address] Charger Operator: Jonathan Chisholm MD Albumin [Mass/Vol] 4.1 g/dL Normal 3.5-5.2 [facility] Comment on above: Performed By: #### C P, CDP #### [facility] [address] [place], [place] [id number] Charger Operator: Jonathan Chisholm MD Alkaline Phos 63 U/L Normal 35-104 [facility] Comment on above: Performed By: #### C P, CDP #### [facility] [address] [place], [place] [id number] Charger Operator: Jonathan Chisholm MD ALT [Catalytic activity/Vol] 8 U/L Normal 5-33 [facility] Comment on above: Performed By: #### C P, CDP #### [facility] [address] [place], [place] [id number] Charger Operator: Jonathan Chisholm MD Anion gap [Moles/Vol] 12 mmol/L Normal 9-17 [facility] Comment on above: Performed By: #### C P, CDP #### [facility] [address] [place], [place] [phone] Charger Operator: Jonathan Chisholm MD AST [Catalytic activity/Vol] 13 U/L Normal <32 [facility] Comment on above: Performed By: #### C P, CDP #### [facility] [address] [place], [place] [id number] Charger Operator: Jonathan Chisholm MD Bilirubin Ql (U) 0.40 mg/dL Normal 0.30-1.20 [facility] Comment on above: Performed By: #### C P, CDP #### [facility] [address] [place], [place] [id number] Charger Operator: Jonathan Chisholm MD BUN/CRE Ratio 13 Normal 9-20 [facility] Comment on above: Performed By: #### C P, CDP #### [facility] [address] [place], [place] [id number] Charger Operator: Jonathan Chisholm MD Calcium [Mass/Vol] 9.1 mg/dL Normal 8.6-10.4 [facility] Comment on above: Performed By: #### C P, CDP #### [facility] [address] [place], [place] [phone] Charger Operator: Jonathan Chisholm MD Chloride [Moles/Vol] 103 mmol/L Normal 98-107 [facility] Comment on above: Performed By: #### C P, CDP #### [facility] [address] [place], [place] [phone] Charger Operator: Jonathan Chisholm MD CO2 [Moles/Vol] 24 mmol/L Normal 20-31 [facility] Comment on above: Performed By: #### C P, CDP #### [facility] [address] [place], [place] [phone] Charger Operator: Jonathan Chisholm MD Creatinine [Mass/Vol] 0.61 mg/dL Normal 0.50-0.90 [facility] Comment on above: Performed By: #### C P, CDP #### [facility] [address] [place], [place] [id number] Charger Operator: Jonathan Chisholm MD GFR, Amer >60 Normal >60 [facility] Comment on above: Performed By: #### C P, CDP #### [facility] [address] [place], [place] [id number] Charger Operator: Jonathan Chisholm MD GFR,non Amer >60 Normal >60 [facility] Comment on above: Performed By: #### C P, CDP #### [facility] [address] [place], [place] [phone] Charger Operator: Jonathan Chisholm MD Glucose [Mass/Vol] 94 mg/dL Normal 70-99 [facility] Comment on above: Performed By: #### C P, CDP #### [facility] [address] [place], [place] [phone] Charger Operator: Jonathan Chisholm MD Potassium [Moles/Vol] 3.8 mmol/L Normal 3.7-5.3 [facility] Comment on above: Performed By: #### C P, CDP #### [facility] [address] [place], [place] [phone] Charger Operator: Jonathan Chisholm MD Protein [Mass/Vol] 7.1 g/dL Normal 6.4-8.3 [facility] Comment on above: Performed By: #### C P, CDP #### [facility] [address] [place], [place] [phone] Charger Operator: Jonathan Chisholm MD Sodium [Moles/Vol] 139 mmol/L Normal 135-144 [facility] Comment on above: Performed By: #### C P, CDP #### [facility] [address] [place] [address] Charger Operator: Jonathan Chisholm MD Urea nitrogen [Mass/Vol] 8 mg/dL Normal 6-20 [facility] Comment on above: Performed By: #### C P, CDP #### [facility] [address] [place], [place] [id number] Charger Operator: Jonahtan Chisholm MD Albumin/Globulin [Mass ratio] NOT REPORTED Normal 1.0-2.5 [facility] Comment on above: Performed By: #### C P, CDP #### [facility] [address] [place] [address] Charger Operator: Jonathan Chisholm MD Staging: NOT REPORTED Normal [facility] Comment on above: Performed By: #### C P, CDP #### [facility] [address] [place] [address] Charger Operator: Jonathan Chisholm MD Comprehensive Metabolic Pane markus 02-01-2019 Albumin [Mass/Vol] 4.1 g/dL 3.5 - 5.2 g/dL [place] Albumin/Globulin [Mass ratio] NOT REPORTED [place] ALP [Catalytic activity/Vol] 63 U/L 35 - 104 U/L [place] ALT [Catalytic activity/Vol] 8 U/L 5 - 33 U/L [place] Anion gap [Moles/Vol] 12 mmol/L 9 - 17 mmol/L [place] AST [Catalytic activity/Vol] 13 U/L <32 [place] Bilirubin Ql (U) 0.40 mg/dL 0.3 - 1.2 mg/dL [place] Bun/Cre Ratio 13 [place] Calcium [Mass/Vol] 9.1 mg/dL 8.6 - 10. 4 mg/dL [place] Chloride [Moles/Vol] 103 mmol/L 98 - 10 7 mmol/L [place] CO2 [Moles/Vol] 24 mmol/L 20 - 31 mmol/L [place] Creatinine [Mass/Vol] 0.61 mg/dL 0.5 - 0.9 mg/dL [place] GFR >60 >60 mL/min [place] GFR Non- >60 >60 mL/min [place] GFR/1.73 sq M predicted among non-blacks MDRD (S/P/Bld) [Vol rate/Area] NOT REPORTED [place] GFR/1.73 sq M predicted among non-blacks MDRD (S/P/Bld) [Vol rate/Area] [place] Comment on above: Average GFR for 20-2 9 years old: 116 mL/min/1.73sq m Chronic Kidney Disease: <60 mL/min/1.73sq m Kidney failure: <15 mL/min/1.73sq m eGFR calculated using average adult body mass. Additional eGFR calculator available at: http://www.SkuServe.MET Tech/multiple_crcl_2012.htm Glucose [Mass/Vol] 94 mg/dL 70 - 99 mg/dL [place] Potassium [Moles/Vol] 3.8 mmol/L 3.7 - 5.3 mmol/L [place] Protein [Mass/Vol] 7.1 g/dL 6.4 - 8.3 g/dL [place] Sodium [Moles/Vol] 139 mmol/L 135 - 144 mmol/L [place] Urea nitrogen [Mass/Vol] 8 mg/dL 6 - 20 mg/dL [place] HCG, ,Urineon 02-01 Beta HCG ( test) Ql (U) Negative Normal NEG [facility] Comment on above: Performed By: #### U MICAO, UHCG, UA #### [facility] [address] [place] [address] Charger Operator: Jonathan Chisholm MD Microscopic Urinalysison Amorphous, UA NOT REPORTED None [place], [place] Bacteria, UA 3+ Abnormal None [place] Casts UA NOT REPORTED /LPF [place] Crystals UA NOT REPORTED None /HPF [place] Epithelial Cells UA 20 TO 50 /HPF [place] Interpretation and review of laboratory results Abnormal [place] Mucus, UA 2+ Abnormal None [place] Other Observations UA NOT REPORTED NOT REQ. [place] RBC (U) [#/Vol] 2 TO 5 [place], [place] Renal Epithelial, Urine NOT REPORTED 0 /HPF [place] Trichomonas, UA NOT REPORTED None [place] WBC, UA 2 TO 5 0 /HPF [place] Yeast, UA NOT REPORTED None [place] - [place] Otheron 02-01-2019 Immature granulocytes (Bld) [#/Vol] NOT REPORTED [place], [place] , Urineon 9 Beta HCG ( test) Ql (U) Negative NEGATIVE [place] Urinalysison 02-01-2019 Bilirubin Urine Negative NEGATIVE [place] Color, UA YELLOW YELLOW [place], [place] Glucose, Ur Negative NEGATIVE [place] Interpretation and review of laboratory results Abnormal [place] Ketones Ql (U) TRACE Abnormal NEGATIVE [place], [place] Leukocyte esterase Test strip Ql (U) Negative NEGATIVE [place] Nitrite, Urine Negative NEGATIVE [place] pH, UA 6.0 [place] Protein (U) [Mass/Vol] 1+ Abnormal NEGATIVE [place] Specific [place], UA 1.020 [place], [place] Turbidity UA CLEAR CLEAR [place] Urinalysis Comments [place] Urine Hgb 3+ Abnormal NEGATIVE [place] Urobilinogen, Urine Normal Normal [place] Urinalysis, Routineon 2018 Acetoacetic Acid,Ur TRACE Abnormal NEG [facility] Comment on above: Performed By: #### U MICAO, [facility], UA #### [facility] [address] [place] [address] Charger Operator: Jonathan Chisholm MD Bilirubin, SemiQt,Ur Negative Normal NEG [facility] Comment on above: Performed By: #### U MICAO, [facility], UA #### [facility] [address] [place] [address] Charger Operator: Jonathan Chisholm MD Color (U) YELLOW Normal L [facility] Comment on above: Performed By: #### U MICAO, [facility], UA #### [facility] [address] [place] [address] Charger Operator: Jonathan Chisholm MD Comment Normal [facility] Comment on above: Performed By: #### U MICAO, [facility], UA #### [facility] [address] [place] [address] Charger Operator: Jonathan Chisholm MD Glucose Ql (U) Negative Normal NEG [facility] Comment on above: Performed By: #### U MICAO, [facility], UA #### [facility] [address] [place] [address] Charger Operator: Jonathan Chisholm MD Hemoglobin, Ur 3+ Abnormal NEG [facility] Comment on above: Performed By: #### U MICAO, [facility], UA #### [facility] [address] [place] [address] Charger Operator: Jonathan Chisholm MD Leukocyte esterase Test strip Ql (U) Negative Normal NEG [facility] Comment on above: Performed By: #### U PREMA [facility], UA #### [facility] [address] [place] [address] Charger Operator: Jonathan Chisholm MD Nitrite,Ur Negative Normal NEG [facility] Comment on above: Performed By: #### U PREMA, [facility], UA #### [facility] [address] [place] [address] Charger Operator: Jonathan Chisholm MD pH (U) 6.0 [pH] Normal 5.0-8.0 [facility] Comment on above: Performed By: #### U JAZMINEO, [facility], UA #### [facility] [address] [place] [address] Charger Operator: Jonathan Chisholm MD Protein Ql (U) 1+ Abnormal NEG [facility] Comment on above: Performed By: #### U PREMA [facility], UA #### [facility] [address] [place] [address] Charger Operator: Jonathan Chisholm MD Specific gravity (U) [Rel density] 1.020 Normal 1.005-1.030 [facility] Comment on above: Performed By: #### U MICAO, [facility], UA #### [facility] [address] [place] [address] Charger Operator: Jonathan Chisholm MD Turbidity CLEAR Normal CLEAR [facility] Comment on above: Performed By: #### U MICAO, [facility], UA #### [facility] [address] [place] [phone] Charger Operator: Jonathan Chisholm MD Urobilinogen,Ur Normal Normal NORM [facility] Comment on above: Performed By: #### U PREMA [facility], UA #### [facility] [address] [place], [place] [phone] Charger Operator: Jonathan Chisholm MD Urinalysis,Microon 9 ----- Normal [facility] Comment on above: Performed By: #### U PREMA, [facility], UA #### [facility] [address] [place], [place] [phone] Charger Operator: Jonathan Chisholm MD Bacteria LM.HPF (Urine sed) [#/Area] 3+ Abnormal NONE [facility] Comment on above: Performed By: #### Yane LLOYD [facility], UA #### [facility] [address] [place], [place] [phone] Charger Operator: Jonathan Chisholm MD Epithelial cells LM.HPF (Urine sed) [#/Area] 20 TO 50 Normal [facility] Comment on above: Performed By: #### U PREMA [facility], UA #### [facility] [address] [place], [place] [phone] Charger Operator: Jonathan Chisholm MD Mucus Strands 2+ Abnormal [facility] Comment on above: Performed By: #### U PREMA [facility], UA #### [facility] [address] [place], [place] [phone] Charger Operator: Jonathan Chisholm MD RBC (U) [#/Vol] 2 TO 5 Normal 0-2 [facility] Comment on above: Performed By: #### U PREMA [facility], UA #### [facility] [address] [place], [place] [phone] Charger Operator: Jonathan Chisholm MD WBC (U) [#/Vol] 2 TO 5 Normal 0 [facility] Comment on above: Performed By: #### U [facility]ICAO, [facility] #### [facility] [address] [facility] [address] Charger Operator: Jonathan Chisholm MD Amorphous sediment LM Ql (Urine sed) NOT REPORTED Normal NONE [facility] Comment on above: Performed By: #### U MICAO, [facility], U[facility] #### [facility] [address] [place] [address] Charger Operator: Jonathan Chisholm MD Casts LM.LPF (Urine sed) [#/Area] NOT REPORTED Normal [facility] Comment on above: Performed By: #### U MICAO, [facility], [facility] #### [facility] [address] [place] [address] Charger Operator: Jonathan Chisholm MD Crystals LM Nom (Urine sed) NOT REPORTED Normal NONE [facility] Comment on above: Performed By: #### U MICAO, [facility], [facility] #### [facility] [address] [facility] [place] [address] Charger Operator: Jonathan Chisholm MD Epithelial, Renal NOT REPORTED Normal 0 [facility] Comment on above: Performed By: #### U MICAO, [facility], [facility] #### [facility] [address] [facility] [place] [address] Charger Operator: Jonathan Chisholm MD Other Observations NOT REPORTED Normal NREQ [facility] Comment on above: Performed By: #### U MICAO, [facility], [facility] #### [facility] [address] [facility] [place] [address] Charger Operator: Jonathan Chisholm MD Trichomonas NOT REPORTED Normal NONE [facility] Comment on above: Performed By: #### [facility], [facility] #### [facility] [address] [facility] [place] [address] Charger Operator: Jonathan Chisholm MD Yeast LM Ql (Urine sed) NOT REPORTED Normal NONE [facility] Comment on above: Performed By: #### U JAZMINE, [facility], UA #### [facility] [address] [place] [address] Charger Operator: Jonathan Chisholm MD Vital Signs Date Time Vital Sign Value Performing Clinician Facility 01-16-2025 09:38-0400 Body mass index (BMI) [Ratio] 29.67 kg/m2 Jack Peggy DO Work Phone: [facility] 01-16-2025 09:38-0400 Body weight 83.37 kg Jack Peggy DO Work Phone: [facility] 01-16-2025 09:38-0400 Diastolic blood pressure 78 mm[Hg] Jack Peggy DO Work Phone: [facility] 01-16-2025 09:38-0400 Systolic blood pressure 120 mm[Hg] Jack Peggy DO Work Phone: [facility] 12-31-2024 14:30-0400 Body mass index (BMI) [Ratio] 29.83 kg/m2 Jack Peggy DO Work Phone: [facility] 12-31-2024 14:30-0400 Body weight 83.83 kg Jack Peggy DO Work Phone: [facility] 12-31-2024 14:30-0400 Diastolic blood pressure 62 mm[Hg] Jack Peggy DO Work Phone: [facility] 12-31-2024 14:30-0400 Systolic blood pressure 112 mm[Hg] Jack Peggy DO Work Phone: [facility] 12-03-2024 13:26-0400 Body mass index (BMI) [Ratio] 28.29 kg/m2 Jayla DA SILVA Work Phone: [facility] 12-03-2024 13:26-0400 Body weight 79.49 kg Jayla DA SILVA Work Phone: [facility] 12-03-2024 13:26-0400 Diastolic blood pressure 78 mm[Hg] Jayla DA SILVA Work Phone: [facility] 12-03-2024 13:26-0400 Systolic blood pressure 100 mm[Hg] Jayla DA SILVA Work Phone: [facility] 11-12-2024 08:47-0400 Body height 167.6 cm Guadalupe Peres MD Work Phone: [facility] 11-12-2024 08:47-0400 Body mass index (BMI) [Ratio] 27.48 kg/m2 Guadalupe Peres MD Work Phone: [facility] 11-12-2024 08:47-0400 Body weight 77.2 kg Guadalupe Peres MD Work Phone: [facility] 11-12-2024 08:47-0400 Diastolic blood pressure 73 mm[Hg] Guadalupe Peres MD Work Phone: [facility] 11-12-2024 08:47-0400 Heart rate 90 /min Guadalupe Peres MD Work Phone: [facility] 11-12-2024 08:47-0400 Systolic blood pressure 105 mm[Hg] Guadalupe Peres MD Work Phone: [facility] 11-05-2024 14:10-0400 Body mass index (BMI) [Ratio] 27.02 kg/m2 Jack Peggy DO Work Phone: [facility] 11-05-2024 14:10-0400 Body weight 75.93 kg Jack Peggy DO Work Phone: [facility] 11-05-2024 14:10-0400 Diastolic blood pressure 68 mm[Hg] Jack Peggy DO Work Phone: [facility] 11-05-2024 14:10-0400 Systolic blood pressure 106 mm[Hg] Jack Peggy DO Work Phone: [facility] 10-08-2024 14:35-0400 Body mass index (BMI) [Ratio] 27.41 kg/m2 Jack Peggy DO Work Phone: [facility] 10-08-2024 14:35-0400 Body weight 77.02 kg Jack Peggy DO Work Phone: [facility] 10-08-2024 14:35-0400 Diastolic blood pressure 72 mm[Hg] Jack Peggy DO Work Phone: [facility] 10-08-2024 14:35-0400 Systolic blood pressure 100 mm[Hg] Jack Peggy DO Work Phone: [facility] 09-19-2024 13:34-0400 Body mass index (BMI) [Ratio] 26.95 kg/m2 Nom Nurse [facility] 09-19-2024 13:34-0400 Body weight 75.75 kg [facility] Nurse [facility] 09-19-2024 13:34-0400 Diastolic blood pressure 84 mm[Hg] [facility] Nurse [facility] 09-19-2024 13:34-0400 Systolic blood pressure 108 mm[Hg] [facility] Nurse [facility] 04-10-2024 11:05-0500 Body mass index (BMI) [Ratio] 27.6 kg/m2 Jack Peggy DO Work Phone: [facility] 04-10-2024 11:05-0500 Body weight 77.56 kg Jack Peggy DO Work Phone: [facility] 04-10-2024 11:05-0500 Diastolic blood pressure 72 mm[Hg] Jack Peggy DO Work Phone: [facility] 04-10-2024 11:05-0500 Systolic blood pressure 114 mm[Hg] Jack Peggy DO Work Phone: [facility] 2024 13:52-0400 Body height 167.6 cm Jack Peggy DO Work Phone: [facility] 2024 13:52-0400 Body mass index (BMI) [Ratio] 26.6 kg/m2 Jack Peggy DO Work Phone: [facility] 2024 13:52-0400 Body weight 74.75 kg Jack Peggy DO Work Phone: [facility] 2024 13:52-0400 Diastolic blood pressure 56 mm[Hg] Jack Peggy DO Work Phone: [facility] 2024 13:52-0400 Systolic blood pressure 100 mm[Hg] Jack Peggy DO Work Phone: [facility] 03-21-2023 18:10-0500 Body height 167.64 cm Rina Anton Other [employer] Other 03-21-2023 18:10-0500 Body mass index (BMI) [Ratio] 26.95 kg/m2 Rina Anton Other [employer] Other 03-21-2023 18:10-0500 Body temperature 98.9 [degF] Rina Anton Other [employer] Other 03-21-2023 18:10-0500 Body weight 75.75 kg Rina Anton Other [employer] Other 03-21-2023 18:10-0500 Respiratory rate 18 /min Rina Anton Other [employer] Other 03-21-2023 18:10-0500 SaO2% (BldA) [Mass fraction] 97 % Rina Anton Other [employer] Other 02-01-2019 06:41-0400 BP Diastolic 64 mm[Hg] [facility] [place] 02-01-2019 06:41-0400 BP Systolic 107 mm[Hg] [facility] [place] 02-01-2019 06:41-0400 Pulse (Heart Rate) 64 /min [facility] [place] 02-01-2019 04:30-0400 Body Temperature 98.01 [degF] Keyla Harden [facility], [facility] 02-01-2019 04:30-0400 Body weight 58.92 kg Keyla Harden [facility], [facility] 02-01-2019 04:30-0400 Pulse Oximetry 100 % [facility], [facility] 02-01-2019 04:30-0400 Respiratory Rate 18 /min Keyla Harden [facility], [facility] Encounters Encounter Date Encounter Type Care Provider Facility Start: 01-24-2025 End: 01-24-2025 ambulatory [facility] Start: 01-21-2025 End: 01-21-2025 Clinisync Result Encounter Jalya DA SILVA Work Phone: [facility] Unsolicited Start: 01-21-2025 End: 01-21-2025 Clinisync Result Encounter Jayla DA SILVA Work Phone: [facility] Unsolicited Start: 01-16-2025 End: 01-16-2025 Bamboo flowsheet Jack Peggy DO Work Phone: [facility] Start: 01-16-2025 End: 01-16-2025 Bamboo flowsheet Jack Peggy DO Work Phone: [facility] Start: 01-16-2025 End: 01-16-2025 flow sheet Jack Peggy DO Work Phone: [facility] Comment on above: 25 weeks gestation o f ([facility]); Second trimester ([facility]); Palpitations; Syncope, unspecified syncope type; Gastroesophageal reflux in ([facility]) Start: 01-16-2025 End: 01-16-2025 ambulatory JACK PEGGY Not Available Start: 01-07-2025 End: 01-07-2025 Bamboo flowsheet Jayla DA SILVA Work Phone: [facility] Start: 01-07-2025 End: 01-07-2025 Bamboo flowsheet Jayla DA SILVA Work Phone: [facility] Start: 01-07-2025 End: 01-07-2025 flow sheet Jayla DA SILVA Work Phone: [facility] Comment on above: Second trimester pre gnancy ([facility]); 23 weeks gestation of ([facility]); Palpitations; Tachycardia Start: 01-07-2025 End: 01-07-2025 ambulatory JAYLA ART Not Available Start: 12-31-2024 End: 12-31-2024 flow sheet Jack Peggy DO Work Phone: [facility] Comment on above: Second trimester pre gnancy ([facility]); 23 weeks gestation of ([facility]); Diabetes mellitus screening Start: 12-31-2024 End: 12-31-2024 ambulatory JACK PEGGY Not Available Start: 12-31-2024 End: 12-31-2024 Bamboo flowsheet Jack Peggy DO Work Phone: [facility] Start: 12-31-2024 End: 12-31-2024 Bamboo flowsheet Jack Peggy DO Work Phone: [facility] Start: 12-10-2024 End: 12-10-2024 ambulatory JACK R PEGGY [facility] Start: 12-03-2024 End: 12-03-2024 Bamboo flowsheet Jayla DA SILVA Work Phone: [facility] Start: 12-03-2024 End: 12-03-2024 Bamboo flowsheet Jayla DA SILVA Work Phone: [facility] Start: 12-03-2024 End: 12-03-2024 flow sheet Jayla DA SILVA Work Phone: [facility] Comment on above: Second trimester pre gnancy ([facility]); 19 weeks gestation of ([facility]) Start: 12-03-2024 End: 12-03-2024 ambulatory JAYLA ART Not Available Start: 11-12-2024 End: 11-12-2024 Office consultation new/estab patient 60 min Guadalupe Peres MD Work Phone: [facility] Comment on above: Adnexal mass (Primar y Dx); 16 weeks gestation of ; Uterine fibroids affecting in second trimester; Localized swelling of right lower extremity Start: 11-12-2024 End: 11-12-2024 Orders Only Jayla Avina LEATHER SPONGER [facility] at [facility] Comment on above: Adnexal mass (Primar [...] exposure Start: 11-05-2024 End: 11-05-2024 ambulatory Jack [facility] Work Phone: Start: 11-05-2024 End: 11-05-2024 [...] End: 01-05-2024 Patient encounter procedure MD Zachary Mayse Work Phone: [facility] [place] Work Phone: Start: 01-05-2024 End: 01-05-2024 ambulatory MD Zachary Mayes Work Phone: [facility] Work Phone: Start: 12-28-2023 End: 12-28-2023 Patient encounter procedure MD Zachary Mayes Work Phone: [facility] [place] Work Phone: Start: 12-28-2023 End: 12-28-2023 ambulatory MD Zachary Mayes Work Phone: [facility] Work Phone: Start: 12-22-2023 End: 12-22-2023 Patient encounter procedure MD Zachary Mayes Work Phone: [facility] [place] Work Phone: Start: 12-22-2023 End: 12-22-2023 ambulatory MD Zachary Mayes Work Phone: [facility] Work Phone: Start: 12-20-2023 End: 12-20-2023 Patient encounter procedure MD Zachary Mayes Work Phone: [facility] [place] Work Phone: Start: 12-20-2023 End: 12-20-2023 ambulatory MD Zachary Mayes Work Phone: [facility] Work Phone: Start: 12-09-2023 End: 12-09-2023 Patient encounter procedure MD Zachary Mayes Work Phone: [facility] [place] Work Phone: Start: 12-09-2023 End: 12-09-2023 ambulatory MD Zachary Mayes Work Phone: [facility] Work Phone: Start: 12-07-2023 End: 12-07-2023 Patient encounter procedure MD Zachary Mayes Work Phone: [facility] [place] Work Phone: Start: 12-07-2023 End: 12-07-2023 ambulatory MD Zachary Mayes Work Phone: [facility] Work Phone: Start: 12-05-2023 End: 12-05-2023 Patient encounter procedure MD Zachary Mayes Work Phone: [facility] [place] Work Phone: Start: 12-05-2023 End: 12-05-2023 ambulatory MD Zachary Mayes Work Phone: [facility] Work Phone: Start: 12-02-2023 End: 12-02-2023 ambulatory MD Zachary Mayes Work Phone: [facility] Work Phone: Start: 12-02-2023 End: 12-02-2023 Patient encounter procedure MD Zachary Mayes Work Phone: [facility] [place] Work Phone: Start: 05-01-2023 End: 05-01-2023 Admission to same day surgery center MD Zachary Mayes Work Phone: [facility] Work Phone: Start: 05-01-2023 End: 05-01-2023 ambulatory MD Zachary Mayes Work Phone: [facility] Work Phone: Start: 03-21-2023 End: 03-21-2023 ambulatory Rina Anton Other [employer] Other Start: 03-21-2023 Office outpatient ne w 30 minutes Rina Anton [facility] Start: 02-01-2019 End: 02-01-2019 Emergency department patient visit [facility] Start: 02-01-2019 End: 02-01-2019 Emergency department patient visit [facility] Work Phone: [facility] Comment on above: Abdominal [...] Adult BMI Screening Adult BMI Screen ing [facility] Start: 11-12-2025 Tobacco Screening Tobacco Screening [facility] Start: 01-28-2025 End: 01-28-2025 Patient encounter procedure 01/28/2025 8:40 AM EDT Routine [facility] [address] [place] [id number] Jayla Art PA [address] [place] [address] [facility] Start: 01-21-2025 End: 01-21-2025 Patient encounter procedure 01/21/2025 8:40 AM EDT Office Visit [facility] GALDAMEZ [address] [place] [id number] Jack Woods, DO [address] [place] [address] [facility] [place] OBM[facility] Start: 01-16-2025 End: 01-16-2025 Patient encounter procedure 01/16/2025 9:20 AM EDT Office Visit [facility]IMMA [facility]DAMEZ [address] [facility] [facility] [place] [phone] Jack Woods, DO [address] [place] [address] Arrived [facility] G[facility] Comment on above: Arrived Start: 01-13-2025 Influenza vaccination Influenza Vacc [facility] Start: 01-07-2025 End: 01-07-2026 12 lead ECG ECG 12 lead unit performed ECG Routine Palpitations Expected: 01/07/2025 (Approximate), Expires: 01/07/2026 [facility] Work Phone: Comment on above: Expected: 01/07/2025 (Approximate), Expires: 01/07/2026 Start: 01-07-2025 End: 01-07-2027 Echocardiogram 2D complete Echocardiogram 2D complete Echocardiography Routine Palpitations Tachycardia Expected: 01/07/2025 (Approximate), Expires: 01/07/2027 [facility] Comment on above: Expected: 01/07/2025 (Approximate), Expires: 01/07/2027 Start: 01-07-2025 End: 01-07-2025 Patient encounter procedure 01/07/2025 1:50 PM EDT Office Visit RIMMA GALDAMEZ [address] [facility] [place] [phone] Jayla Art PA [address] [place] [address] Arrived [facility] GAL[facility] Comment on above: Arrived Start: 12-31-2024 End: 12-31-2024 Patient encounter procedure 12/31/2024 2:10 PM EDT Routine RIMMA GALDAMEZ [address] [place] [phone] Jack Woods DO [address] [place] [address] Arrived [facility] GALDAME[facility] Comment on above: Arrived Start: 12-31-2024 End: 12-31-2025 CBC panel - Blood by Automated count CBC Lab Routine Diabetes mellitus screening Expected: 12/31/2024 (Approximate), Expires: 12/31/2025 [facility] Work Phone: Comment on above: Expected: 12/31/2024 (Approximate), Expires: 12/31/2025 Start: 12-31-2024 End: 12-31-2025 Measurement of glucose 1 hour after glucose challenge for glucose tolerance test Glucose tolerance, 1 hour Lab Routine Diabetes mellitus screening Expected: 12/31/2024 (Approximate), Expires: 12/31/2025 [facility] Comment on above: Expected: 12/31/2024 (Approximate), Expires: 12/31/2025 Start: 12-10-2024 End: 12-10-2024 Patient encounter procedure 12/10/2024 1:30 PM EDT Appointment [facility] [place] [address] [place] [address] [facility] [place] Start: 12-03-2024 End: 12-03-2024 Patient encounter procedure [facility] Comment on above: Second trimester [...] right lower extremity Expected: 11/12/2024, Expires: 11/12/2025 [employer] Work Phone: Comment on above: Expected: 11/12/2024 , Expires: 11/12/2025 Start: 11-12-2024 End: 11-12-2025 US.doppler Lower extremity vein - right Vas venous duplex insufficiency lwr rt Vascular Ultrasound Routine Localized swelling of right lower extremity Expected: 11/12/2024, Expires: 11/12/2025 [facility] Comment on above: Expected: 11/12/2024 , Expires: 11/12/2025 Start: 11-05-2024 End: 05-07-2025 Alpha fetoprotein, maternal Alpha fetoprotein, maternal Lab Routine Second trimester ([facility]) 15 weeks gestation of ([facility]) Expected: 11/05/2024 (Approximate), Expires: 05/07/2025 [facility] Comment on above: Expected: 11/05/2024 (Approximate), Expires: 05/07/2025 Start: 11-05-2024 End: 11-05-2024 Patient encounter procedure [facility] Comment on above: Arrived Start: 11-05-2024 [facility] Start: 10-08-2024 End: 10-08-2024 Patient encounter procedure [...] Initial [facility] [address] [place] [phone] [facility] Start: 09-19-2024 End: 09-19-2024 Professional / ancillary services management 09/19/2024 1:00 PM EDT Ancillary Procedure [facility] [address] [place] [address] [facility] Start: 08-28-2024 End: 08-28-2024 Professional / ancillary services management 08/28/2024 8:30 AM EDT Ancillary Procedure [facility] [address] [place] [address] [facility] Start: 04-10-2024 End: 04-10-2025 Antimullerian hormone (AMH) Antimullerian hormone (AMH) Lab Routine Hormone disorder Expected: 04/10/2024 (Approximate), Expires: 04/10/2025 [facility] Work Phone: Comment on above: Expected: 04/10/2024 (Approximate), Expires: 04/10/2025 Start: 04-10-2024 End: 04-10-2024 Patient encounter procedure 04/10/2024 11:10 AM EST Office Visit [facility] [address] [place] [phone] Jack Woods, DO [address] [place] [address] Arrived [facility] Comment on above: Arrived Start: 2024 End: 2024 Patient encounter procedure 2024 1:20 PM EDT Office Visit [facility] [address] [place] [address] Jack Woods, DO [address] [place] [address] [facility] Start: 12-24-2019 DTaP,Tdap and Td Vaccines (2 - Td or Tdap) DTaP,Tdap and Td Vaccines (2 - Td or Tdap) [facility] Start: 2019 Screening for malign ant neoplasm of cervix Pap Smear [facility] Start: 01-13-2019 Influenza vaccination Flu vaccine (# 1) [place], [place] Start: 02-07-2016 Adult BMI Follow Up Plan Adult BMI F ollow Up Plan [facility] Start: 2010 Depression Screening Depression Scre [facility] Bacteria identified in Urine by Culture Urine culture Microbiology Routine Missed menses Ordered: 09/19/2024 [facility] Comment on above: Ordered: 09/19/2024 CBC W Auto Different ial panel - Blood CBC and differential Lab Routine Missed menses , unspecified gestational age Ordered: 09/19/2024 [facility] Comment on above: Ordered: 09/19/2024 CHLAMYDIA TRACHOMATI S (GENITO/STI) CHLAMYDIA TRACHOMATIS (GENITO/STI) Lab Routine STD exposure Ordered: 11/05/2024 [facility] Comment on above: Ordered: 11/05/2024 Cytology Cervical or vaginal smear or scraping study Pap Smear Pathology and Cytology Routine Well woman exam with routine gynecological exam Ordered: 11/05/2024 [facility] Comment on above: Ordered: 11/05/2024 Hemoglobin A1c/Hemoglobin.total in Blood Hemoglobin A1c Lab Routine Missed menses , unspecified gestational age Ordered: 09/19/2024 [facility] Comment on above: Ordered: 09/19/2024 Hepatitis B virus surface Ag [Presence] in Serum or Plasma by Immunoassay Hepatitis B surface antigen Lab Routine Missed menses , unspecified gestational age Ordered: 09/19/2024 [facility] Comment on above: Ordered: 09/19/2024 Hepatitis C virus Ab [Presence] in Serum or Plasma by Immunoassay Hepatitis C antibody Lab Routine Missed menses , unspecified gestational age Ordered: 09/19/2024 [facility] Comment on above: Ordered: 09/19/2024 HIV-1/HIV-2 antigen/antibody combination immunoassay HIV-1 and HIV-2 antibodies Lab Routine Missed menses , unspecified gestational age Ordered: 09/19/2024 [facility] Comment on above: Ordered: 09/19/2024 Neisseria gonorrhoea e DNA [Presence] in Unspecified specimen by DARIUS with probe detection Neisseria gonorrhea DNA probe, direct Lab Routine STD exposure Ordered: 11/05/2024 [facility] Comment on above: Ordered: 11/05/2024 Progesterone [Mass/volume] in Serum or Plasma [facility] Reagin Ab [Presence] in Serum by RPR RPR Lab Routine Missed menses , unspecified gestational age Ordered: 09/19/2024 [facility] Comment on above: Ordered: 09/19/2024 Rubella antibody, IgG Rubella an tibody, IgG Lab Routine Missed menses , unspecified gestational age Ordered: 09/19/2024 [facility] Comment on above: Ordered: 09/19/2024 SURESWAB(R) ADVANCED VAGINITIS PLUS, TMA SURESWAB(R) ADVANCED VAGINITIS PLUS, TMA Pathology and Cytology Routine Vaginal discharge Ordered: 11/05/2024 [facility] Work Phone: Comment on above: Ordered: 11/05/2024 Immunizations Immunization Date Immunization Notes Care Provider [facility] 03-18-2017 influenza virus vaccine, unspecified formulation Guadalupe Peres MD Work Phone: [facility] [employer] [facility] Payers Date Payer Category Payer [employer] Yaron Pradhan Managed Care - PPO ANTHADELA [id number] 2024 [employer] BCBS [id number] 2024 Unknown [id number] 2023 Self-pay [id number] 2023 Private Health Insurance [id number] 2023 Private Health Insurance [id number] 2014 Unknown [id number] 2014 Unknown BCBS [place] - [place] P PO xxxxxxxxxxxx 2014-Present [address] [place] [address] xxxxxxxxxxxx [id number] 1998 Unknown [id number] 2.16.840.1.797168.3.579.2 .174 1998 Unknown [id number] 2.16.840.1.664592.3.579.2 .1286 1998 Unknown [id number] 2.16.840.1.022990.3.579.2 .128 1998 Unknown [id number] 2.16.840.1.277299.3.579.2 .1286 1998 Unknown [id number] 2.16.840.1.822307.3.579.2 .1258 1998 Unknown [id number] 2.16.840.1.182636.3.579.2 .125 1998 Unknown [id number] 2.16.840.1.926437.3.579.2 .1258 1998 Unknown [id number] 2.16840.1.926838.3.579.2 .1258 1998 Unknown [id number] 2.16840.1.733519.3.579.2 .1258 1998 Unknown [id number] 2.16840.1.490067.3.579.2 .1258 1998 Unknown [id number] 2.16840.1.625221.3.579.2 .1258 1998 Unknown [id number] 2.16840.1.584622.3.579.2 .1258 1998 Unknown [id number] 2.16840.1.841788.3.579.2 .1258 1998 Unknown [id number] 2.16.840.1.785514.3.579.2 .1258 1998 Unknown [id number] 2.16840.1.940210.3.579.2 .125 Unknown [facility] [id number] Unknown [place]/ [id number] Unknown [id number] 2.16840.1.115899.3.579.2 .531 Unknown [id number] 2.16.840.1.596129.3.579.2 .531 Unknown [id number] 2.16.840.1.425798.3.579.2 .531 Unknown [id number] 2.16.840.1.949769.3.579.2 .531 Unknown [id number] 2.16.840.1.826941.3.579.2 .531 Unknown [id number] 2.16.840.1.346764.3.579.2 .531 Unknown [id number] 2.16.840.1.101600.3.579.2 .531 Unknown [id number] 2.16.840.1.887594.3.579.2 .531 Unknown [id number] 2.16.840.1.650713.3.579.2 .531 Social History Date Type Detail Facility Start: 02-01-2019 End: 04-28-2023 Tobacco smoking status MEIS Never smoker [facility] Start: 02-01-2019 End: 2024 Alcohol intake Not Currently [place], [place] Start: 1998 Sex Assigned At Not on file M [place], [place] Start: 1998 Sex Assigned At Female F [facility] Start: 2024 End: 01-16-2025 Alcoholic beverage intake Lifetime non-drinker (finding) [facility] Start: 04-28-2023 End: 2024 History of Social function [facility] Start: 04-28-2023 Alcohol Comment Caffeine intak e: 3-4 cups per day [facility] Start: 08-06-2024 [facility] Start: 12-26-2022 Sex Female (finding) [facility] Within the past 12 months we worried whether our food would run out before we got money to buy more. Never True [facility] Clinical Notes 03-21-2023 to 01-24-2025 Kelley Sepulveda LPN - 01/16/2025 9:20 AM REKHA Corral 01/07/2025 1:50 PM EDTEdpeter PrasadBRIANA - 12/31/2024 2:10 PM REKHA Corral - 12/03/2024 1:30 PM EDT Note Date & Type Note Facility 01-24-2025 Note [facility] Note Reason for cardiology [...] negative for PE or any abnormalities. Her cattle care worker ordered echo which came back normal. A [...] cannot go b (more content not included)... [facility] 01-16-2025 History of Present illness Narrative [...] 6 hours as needed for nausea. Vit w/Yk-Ugddjtpab-AM (PNV PO) ALLERGIES Allergies Allergen Reactions Cephalexin [...] nursing note reviewed. Exam conducted with a printing press operator apprentice present. Vitals: Estimated body mass index is 29.67 kg/m as calculated from the following: Height as of 02/06/24: 5' 6 . Weight as of this encounter: 183 lb 12.8 oz. BP: 120/78 Patient's last menstrual period was 07/23/2024. ASSESSMENT & PLAN ICD-10-CM 1. 25 weeks gestation of ([facility]) Z3A.25 POCT urinalysis dipstick manually resulted 2. Second trimester ([facility]) Z34.92 POCT urinalysis dipstick manually resulted 3. Palpitations R00.2 4. Syncope, unspecified syncope type R55 5. Gastroesophageal reflux in ([facility]) O99.619 K21.9 Patient presents today for a routine obstetrics appointment. Patient is currently 25w2d with a Estimated Date of Delivery: 04/29/25. Patient had spells where she passed out. Patient to have Cardiac Consult hopefully within the next week. Referral will be made today to Cardiology at [facility]. Patient has a EKG scheduled for Monday at 1pm. Patient voiced that she sees stars and then gets dizzy. Advised to increase protein and to remain off work until cleared by Cardiology. Patient to return to clinic 1 week. Documented by Kelley Sepulveda LPN on behalf of: Jack Woods DO documented in this encounter [facility] 01-07-2025 History of Present illness Narrative Reason [...] 6 hours as needed for nausea. Vit w/Dd-Zmvrmahzk-GO (PNV PO) pyridoxine (VITAMIN B-6) 25 mg, [...] ASSESSMENT & PLAN ICD-10-CM 1. Second trimester ([facility]) Z34.92 POCT urinalysis dipstick manually resulted iron polysaccharides (ProFe) 391.3 (180 Fe) MG capsule 2. 23 weeks gestation of ([facility]) Z3A.23 3. Palpitations R00.2 ECG 12 [...] of: REKHA Ott documented in this encounter [facility] 12-31-2024 History of Present illness Narrative Reason [...] 6 hours as needed for nausea. Vit w/Ap-Omcfcvlby-TG (PNV PO) pyridoxine (VITAMIN B-6) 25 mg, [...] nursing note reviewed. Exam conducted with a printing press operator apprentice present. Vitals: Estimated body mass index is 29.83 kg/m as calculated from the following: Height as of 02/06/24: 5' 6 . Weight as of this encounter: 184 lb 12.8 oz. BP: 112/62 Patient's last menstrual period was 07/23/2024. ASSESSMENT & PLAN ICD-10-CM 1. Second trimester ([facility]) Z34.92 POCT urinalysis dipstick manually resulted 2. 23 weeks gestation of ([facility]) Z3A.23 POCT urinalysis dipstick manually resulted [...] Jack Woods DO documented in this encounter [facility] 12-03-2024 History of Present illness Narrative Reason [...] 6 hours as needed for nausea. Vit w/Ya-Imdbhmeir-KB (PNV PO) pyridoxine (VITAMIN B-6) 25 mg, [...] ASSESSMENT & PLAN ICD-10-CM 1. Second trimester ([facility]) Z34.92 POCT urinalysis dipstick manually resulted 2. 19 weeks gestation of ([facility]) Z3A.19 Return OB: Patient presents today for [...] of: REKHA Ott documented in this encounter [facility] 11-12-2024 History of Present illness Narrative Images [...] nausea or vomiting., Disp: , Rfl: PNV 46-eaoa-rktxmtzqudnl-dha 29 mg iron-1 mg -350 mg comb [...] TESTS AND ULTRASOUND REPORTS: Referral records and [facility] chart were reviewed Pertinent Ultrasound findings [...] (2019) [facility] maternal- medicine :principles and practice [place], [place] : [employer] Sonographic diagnosis of ovarian torsion: accuracy and predictive factors. Monica R, Jeff N, Zion N, Sohan-Chelsea G, Bright I. J Ultrasound Med. 2011 Jan;30(9):1205-10. Adnexal masses in : An updated review. Olivia AM, Dorie I, Adelaide DOMÍNGUEZ, Nory H, Alexi RICKS. [facility] J Med. 2017 Feb-Apr;7(4):153-157. doi: [id number]. PMID: [id number] Uterine fibroids, affecting I reviewed the uterine [...] and evaluation of bilateral adnexal masses, through [facility] Recommend repeat growth ultrasound in the 3rd trimester, through primary OB, given known uterine fibroid Anticipate term vaginal delivery at local hospital Precautions regarding shortness of breath and chest pain were reviewed with the patient today DISPOSITION: At this point the patient is in complete care of her cattle care worker. Thank you for allowing me to participate in the care of Daphney Al. If there any questions please do not hesitate to contact us. Guadalupe Peres MD Maternal- Medicine [facility] [address] [facility] [place] [address] This document was created with stickK technology. Though I make every effort to review the dictation as it is transcribed, on occasion the spoken word can be misinterpreted by the technology leading to inappropriate words, phrases, or sentences. This note is addressed to the requesting provider as a consultation for clinical guidance. Specific medical abbreviations are occasionally used and those are generally approved by the [place]?Board of?Obstetrics and?Gynecology?as well as?Graham chan abbreviations. The above plan of care was based solely on the diagnoses for which a consultation was requested. ?More frequent testing may be indicated based on her other medical/obstetrical conditions. The management of other or medical conditions is beyond the scope of requested consultation and will continue to be followed by the primary cattle care worker or primary care provider. Note to patient: [...] risk Have you been seen here at [facility] in a previous ? No Recent ER visits or hospitalizations? No Bring blood sugar log or meter with you today? (Please bring them with you for every visit at [facility]) N/A Flu vaccine (Mar-July)? N/A Any concerns that you would like me to mention to the provider today? R calf bruising, +Homans sign, wants to make sure about cysts, feeling nervous about cervix being short, has never been this far along. Right calf = 36.4cm, Left calf = 39.0cm [facility] History of Present illness Narrative Reason [...] 6 hours as needed for nausea. Vit w/Ht-Kkqurwgfd-NW (PNV PO) pyridoxine (VITAMIN B-6) 25 mg, [...] vulgaris Endometriosis History of medical problems Miscarriage ([facility]) Ovarian cyst HISTORY PAST MEDICAL HISTORY SOCIAL [...] nursing note reviewed. Exam conducted with a printing press operator apprentice present. Vitals: Estimated body mass index is 27.02 kg/m as calculated from the following: Height as of 02/06/24: 5' 6 . Weight as of this encounter: 167 lb 6.4 oz. BP: 106/68 Patient's last menstrual period was 07/23/2024. ASSESSMENT & PLAN ICD-10-CM 1. Well woman exam with routine gynecological exam Z01.419 Pap Smear 2. Second trimester ([facility]) Z34.92 POCT urinalysis dipstick manually resulted Alpha fetoprotein, maternal Alpha fetoprotein, maternal 3. 15 weeks gestation of ([facility]) Z3A.15 POCT urinalysis dipstick manually resulted Alpha [...] Jack Woods DO documented in this encounter [facility] 10-08-2024 History of Present illness Narrative Reason [...] 6 hours as needed for nausea. Vit w/Xx-Niecbxvva-QN (PNV PO) pyridoxine (VITAMIN B-6) 25 mg, [...] nursing note reviewed. Exam conducted with a printing press operator apprentice present. Vitals: Estimated body mass index is [...] or undercooked meat, and stay away from [facility]. Patient has been consulted regarding any [...] Jack Woods DO documented in this encounter [facility] 09-19-2024 History of Present illness Narrative Reason [...] the following prescription(s): aspirin, omeprazole, ondansetron, vit w/ll-nxucohmlq-lk, and progesterone. Medical History: Active Ambulatory Problems [...] or undercooked meat, and stay away from [facility]. Patient has also been advised to [...] Manjula Elias MA documented in this encounter [facility] 04-10-2024 History of Present illness Narrative Reason for Appointment: Patient ID: Daphney Al is a 24 y.o. female who presents for Infertility Patient presents today for Fertility Follow Up appointment. MEDICATIONS Current Outpatient Medications Medication Instructions aspirin 81 MG oral suspension Vit w/Rp-Pnperjgne-JN (PNV PO) ALLERGIES Allergies Allergen Reactions Cephalexin [...] nursing note reviewed. Exam conducted with a printing press operator apprentice present. Vitals: Estimated body mass index is [...] Pt voiced understanding. Discussed LAST referral towards [facility]. Documented by Lisa Prasad LPN on behalf of: Jack Woods DO documented in this encounter [facility] 2024 History of Present illness Narrative Reason for Appointment: Patient ID: Daphney Al is a 23 y.o. female who presents for Infertility Patient presents today for Fertility Follow Up appointment. MEDICATIONS Current Outpatient Medications Medication Instructions aspirin 81 MG oral suspension Vit w/Xt-Okgvdfxqu-MX (PNV PO) ALLERGIES Allergies Allergen Reactions Cephalexin [...] nursing note reviewed. Exam conducted with a printing press operator apprentice present. Vitals: Estimated body mass index is [...] Jack Woods DO documented in this encounter [facility] 03-21-2023 Evaluation note Encounter Date Diagnosis Assessment [...] treatment plan. Patient left in stable condition Mobile Event Guide Other Evaluation noteNo assessment information available [facility] Work Phone: Evaluation note* Diagnosis Encounter for infertility Hormone disorder Unspecified endocrine disorder documented in this encounter [facility] HealthcareEvaluation note* Diagnosis Female infertility Female infertility of unspecified origin History of miscarriage Personal history of other genital system and obstetric disorders documented in this encounter [facility] HealthcareEvaluation note* Diagnosis Missed menses [...] right lower extremity [facility] Diagnosis Adnexal mass- Primary Other specified symptom associated with female genital organs Uterine fibroids affecting in second trimester Localized swelling of right lower extremity [facility] Diagnosis Well woman exam [...] Date Surgical History tonsillectomy Surgical History laparoscopy Mobile Event Guide Other InstructionsNot on filedocumented in this encounter [facility] System[facility]ructionsNot on filedocumented in this encounter [facility]Reason for referral (narrative)No reason for referral [facility] Work Phone: Summary Purpose Family History No Family History Records Found Relationship Condition Age at Onset Recorded Date/T juliette father Congestive heart failure Unknown Advance Directives No Advanced Directives Records FoundDocuments on File Type Date Recorded 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 * Abdominal Pain (Georgian) * Appendicitis (Georgian) documented in this encounter Assessments Diagnosis Abdominal [...] AUTHOR AUTHOR'S ORGANIZ ATION 05/05/2023 [facility] DATE CREATED AUTHOR AUTHOR'S ORGANIZ ATION 11/13/2024 [facility] DATE CREATED AUTHOR AUTHOR'S ORGANIZ ATION 11/13/2024 [facility] DATE CREATED AUTHOR AUTHOR'S ORGANIZ ATION 12/12/2024 [facility] DATE CREATED AUTHOR AUTHOR'S ORGANIZ ATION 01/18/2025 [facility] DATE CREATED AUTHOR AUTHOR'S ORGANIZ ATION 01/26/2025 [facility] Reason for Visit (unrecogniz ed section and content) Reason Comments Routine Visit Specialty Diagnoses / Procedures Referred By Ky t Referred To Contact Obstetrics and Gynecology Diagnoses Enlarged & Heterogeneous Bilateral Ovaries 2.3cm Isoechoic Left-sided Lesion Possible Endometrioma Procedures OK UNLISTED EVALUATION AND MANAGEMENT SERVICE [facility] [address] [place] [address] Jack Woods DO [address] [place] [address] Phone: tel: fax: Referral ID Status Reason Start Date Expiration Date Visits Re quested Visits Authorized [id number] Closed 11/12/2024 05/11/2025 1 1 Reason Comments [...] Zachary Mayes MD Primary Care Provider Active Plaoma Vazquez DO Attending Provider Active Team Status: [...] January 05, 2024 End: January 05, 2024 Carpentry Instructor Relationship Specialty Start Date End Date Alberto Mayes MD [address] [place] [place] [phone] PCP - General 05/02/23 Paloma Vazquez DO [address] [place] [address] Referring Physician Obstetrics and Gynecology 04/25/23 Carpentry Instructor Relationship Specialty Start Date End Date Alberto Mayes MD [address] [place] [id number] PCP - General 05/02/23 Paloma Vazquez DO [address] [place] [address] Referring Physician Obstetrics and Gynecology 04/25/23 Carpentry Instructor Relationship Specialty Start Date End Date Alberto Mayes MD [address] [place], [place] [address] [address] PCP - General 05/02/23 Paloma Vazquez DO [address] [place] [address] Referring Physician Obstetrics and Gynecology 04/25/23 Carpentry Instructor Relationship Specialty Start Date End Date Alberto Mayes MD [address] [place], [place] [address] [phone] PCP - General 05/02/23 Paloma Vazquez DO [address] [place] [address] Referring Physician Obstetrics and Gynecology 04/25/23 Carpentry Instructor Relationship Specialty Start Date End Date Alberto Mayes MD [address] [place] [address] [place] [address] PCP - General 05/02/23 Paloma Vazquez DO [address] [place] [address] Referring Physician Obstetrics and Gynecology 04/25/23 Carpentry Instructor Relationship Specialty Start Date End Date Alberto Mayes MD [address] [place], [place] [address] [phone] PCP - General 05/02/23 Paloma Vazquez DO [address] [place] [address] Referring Physician Obstetrics and Gynecology 04/25/23 Carpentry Instructor Relationship Specialty Start Date End Date Alberto Mayes MD [address] [place] [address] PCP - General 05/02/23 Paloma Vazquez DO [address] [place] [address] Referring Physician Obstetrics and Gynecology 04/25/23 Carpentry Instructor Relationship Specialty Start Date End Date Alberto Mayes MD [address] [place] [address] PCP - General 05/02/23 Paloma Vazquez DO [address] [place] [address] Referring Physician Obstetrics and Gynecology 04/25/23 Carpentry Instructor Relationship Specialty Start Date End Date Alberto Mayes MD [address] [place] [address] PCP - General 05/02/23 Paloma Vazquez DO [address] [place] [address] Referring Physician Obstetrics and Gynecology 04/25/23 Carpentry Instructor Relationship Specialty Start Date End Date Alberto Mayes MD [address] [place] [address] PCP - General 05/02/23 Paloma Vazquez DO [address] [place] [address] Referring Physician Obstetrics and Gynecology 04/25/23 Team Status: Inactive Member Role Status Dates Jack Woods DO Attending Provider Active Start : November 05, 2024 End: November 05, 2024 Carpentry Instructor Relationship Specialty Start Date End Date Alberto Mayes MD [address] [place] [address] PCP - General 05/02/23 Paloma Vazquez DO [address] [place] [address] Referring Physician Obstetrics and Gynecology 04/25/23 Carpentry Instructor Relationship Specialty Start Date End Date Alberto Mayes MD PCP - General 05/02/23 Carpentry Instructor Relationship Specialty Start Date End Date Alberto Mayes MD PCP - General 05/02/23 Carpentry Instructor Relationship Specialty Start Date End Date Alberto Mayes MD PCP - General 05/02/23 Carpentry Instructor Relationship Specialty Start Date End Date Alberto Mayes MD PCP - General 05/02/23 Carpentry Instructor Relationship Specialty Start Date End Date Alberto Mayes MD PCP - General 05/02/23 Carpentry Instructor Relationship Specialty Start Date End Date Alberto Mayes MD PCP - General 05/02/23 Carpentry Instructor Relationship Specialty Start Date End Date Alberto Mayes MD PCP - General 05/02/23 Carpentry Instructor Relationship Specialty Start Date End Date [...] BE BASED ON THE PRIMARY CLINICAL RECORDS. [facility]. provides no warranty or guarantee of the accuracy or completeness of information in this document.
== END 2025-01-27 08:16 | disposition home or self-care (01) ==
LOC: LAB 08:15
PROVIDERS: PCP Family Medicine; Visit Provider Internal Medicine Cardiovascular Disease
DX: R55 Syncope and collapse (principal); Z13.1 Encounter for screening for diabetes mellitus
CPT/HCPCS: 36415; 82533; 82950

== ENCOUNTER 2025-01-29 07:51 | Outpatient (OUT) | payer BC, SELFPAY ==
--- OUTSIDE RECORDS SUMMARY | 2015-04-03 10:28 | XMS_ITS | Continuity of Care Document ---
Author Organization [facility] Address [address] [place] [address] Phone Care Team Providers Care Licensing Engineer Name Role Phone Jonathan Herrera Unavailable Unavailable Procedures Procedure Date TB INTRADERMAL TEST TB INTRADERMAL TEST Advance Directives Directive Yes / No Effective Date File Name No Information Encounters Encounter Description Practice Location Reason(s) For Visit Diagnoses Date Provider Providers Copied on Encounter [facility], [address] [place] [address], [id number], tel:[phone] [facility] No Information Beronica Lopez. [address] [place], [place], [id number], [place]. tel:[phone] [facility], [address] [place] [address], [id number], [place] tel:[phone] [facility] No Information Beronica Lopez. [address] [place], [place], [id number], [place]. tel:[phone] [facility], [address] [place], [place], [id number], [place] tel:[phone] [facility] No Information Beronica Lopez. [address] [place], [place], [id number], [place]. tel:[phone] Family History Family Member Type Diagnosis Age At Onset No Information Payers Payer name Insurance type Covered libertarian ID Authoriza tion(s) No Information Social History [...]
--- OUTSIDE RECORDS SUMMARY | 2025-01-16 09:20 | XMS_ITS | Encounter Summary ---
Author Organization [facility] Address [address] [place] [address] Care Team Providers Care Arborist Name Role Phone Alberto Mayes MD Primary Care Provider Reason for Visit * Reason Comments Routine Visit Encounter Details Date Type Department Care Team (Late st Contact Info) Description 01/16/2025 9:20 AM EDT Office Visit [facility] [place] [facility] [address] [facility] [place] [address] Jack Woods DO [address] [facility] [address] [place], [place] [id number] 25 weeks gestation of ([facility]); Second trimester ([facility]); Palpitations; Syncope, unspecified syncope type; Gastroesophageal reflux in ([facility]) Social History Tobacco Use Types Packs/Day Years [...] Sign Reading Time Taken Comments Blood Pressure 120/78 01/16/2025 9:38 AM EDT Pulse - - Temperature - - Respiratory Rate - - Oxygen Saturation - - Inhaled Oxygen Concentration - - Weight 83.4 kg (183 lb 12.8 oz) 01/16/2025 9:38 AM EDT Height - - Body Mass Index 29.67 2024 1:52 PM EDT documented in this encounter Progress Notes * Kelley Sepulveda, BRIANA - 01/16/2025 9:20 AM EDT Reason for Appointment: Patient ID: Daphney Montesinos is a 24 y.o. female who presents for Routine Visit Patient presents today for Return OB appointment. MEDICATIONS Current Outpatient Medications Medication Instructions aspirin 81 MG oral suspension ondansetron (ZOFRAN) 4 mg, Oral, Every 6 hours PRN, Take 1 tablet by mouth every 6 hours as needed for nausea. Vit w/Fe-Zzhelbxby-TF (PNV PO) ALLERGIES Allergies Allergen Reactions Cephalexin [...] nursing note reviewed. Exam conducted with a enrolled nurse present. Vitals: Estimated body mass index is 29.67 kg/m?? as calculated from the following: Height as of 02/06/24: 5' 6 . Weight as of this encounter: 183 lb 12.8 oz. BP: 120/78 Patient's last menstrual period was 07/23/2024. ASSESSMENT & PLAN ICD-10-CM 1. 25 weeks gestation of ([facility]) Z3A.25 POCT urinalysis dipstick manually resulted 2. Second trimester ([facility]) Z34.92 POCT urinalysis dipstick manually resulted 3. Palpitations R00.2 4. Syncope, unspecified syncope type R55 5. Gastroesophageal reflux in ([facility]) O99.619 K21.9 Patient presents today for a routine obstetrics appointment. Patient is currently 25w2d with a Estimated Date of Delivery: 04/29/25. Patient had spells where she passed out. Patient to have Cardiac Consult hopefully within the next week. Referral will be made today to Cardiology at [facility]. Patient has a EKG scheduled for Monday at 1pm. Patient voiced that she sees stars and then gets dizzy.Advised to increase protein and to remain off work until cleared by Cardiology. Patient to return to clinic 1 week. Documented by Kelley Sepulveda LPN on behalf of: Jack Woods DO documented in this encounter Plan of Treatment Upcoming Encounters Date Type Department Care Team (Late st Contact Info) Description 02/11/2025 9:50 AM EDT Routine [facility] [address] [address] [place] [address] Vielka Romero, JAZZY [address] [facility] [place] [address] documented as of this encounter Procedures Procedure Name Priority Date/Time Associated Diagnosis Comments POCT URINALYSIS DIPSTICK Routine 01/16/2025 9:45 AM EDT 25 weeks gestation of ([facility]) Second trimester ([facility]) documented in this encounter Results * (ABNORMAL) POCT urinalysis dipstick manually resulted (01/16/2025 9:45 AM EDT) Color, UA Yellow Clarity, UA Clear Glucose, UA Negative Negative - 2000(110) ++++ mg/dL Bilirubin, UA Negative Negative - 4(70) +++ mg/dL Ketones, UA Negative Negative - 160(16) ++++ mg/dL Spec Grav, UA 1.020 1 - 1.03 Blood, UA Positive Negative - 50 Clarke/mcL Comment:3+ pH, UA 6.0 5 - 9 Protein, UA Positive Negative - 2000(20) ++++ mg/dL Urobilinogen, UA 1.0 0.2 - 12 mg/dL Leukocytes, UA Positive Negative - 500+++ Kamaljit/mcL Comment:2+ Nitrite, UA Negative Negative - Positive Urine 01/16/2025 9:45 AM EDT Jack Woods DO POINT OF CARE TEST ENTER/EDIT OR DERABLES Final Result documented in this encounter Visit Diagnoses Diagnosis 25 weeks gestation of ([facility]) Second trimester ([facility]) state, incidental Palpitations Syncope, unspecified syncope type Gastroesophageal reflux in ([facility]) documented in this encounter Care Teams Arborist Relationship Specialty Start Date End Date Alberto Mayes MD PCP - General 05/02/23 documented as of this encounter
--- OUTSIDE RECORDS SUMMARY | 2025-01-24 13:00 | XMS_ITS | Encounter Summary ---
Author Organization [facility] Address [address] [place] [address] Care Team Providers Care Energy Systems Laboratory Director Name Role Phone Jack Woods DO Primary Care Provider [phone] Reason for Visit * Reason Comments New Patient Patient is here toda y as a new patient to establish care with cariology Syncope Palpitations 26 weeks Encounter Details Date Type Department Care Team (Late st Contact Info) Description 01/24/2025 1:00 PM EDT Office Visit [facility] [address] [place] [address] Samreen Chen MD [address] [place] [address] Syncope and collapse (Primary Dx); Palpitations; 26 weeks gestation of Social History Tobacco Use Types Packs/Day Years Used Date Smoking Tobacco: Never Smokeless Tobacco: Never Tobacco Cessation:Counseling Given: Not Answered Alcohol Use Standard Drinks/Week Comments Not Currently 0 (1 standard drink = 0.6 oz pur e alcohol) Comments Yes Sex and Gender Information Value Date Recorded Sex Assigned at Female 01/24/2025 12:52 PM EDT Legal Sex Female 4:40 PM EDT Gender Identity Female 01/24/2025 12:52 PM EDT Sexual Orientation Heterosexual or Straight 01/13 12:52 PM EDT documented as of this encounter Last Filed Vital Signs Vital Sign Reading Time Taken Comments Blood Pressure 106/82 01/24/2025 1:26 PM EDT Pulse 113 01/24/2025 1:26 PM EDT Temperature - - Respiratory Rate - - Oxygen Saturation 96% 01/24/2025 1:26 PM EDT Inhaled Oxygen Concentration - - Weight 83.5 kg (184 lb) 01/24/2025 1:08 PM EDT Height - - Body Mass Index - - documented in this encounter Progress Notes * Samreen Chen MD - 01/24/2025 1:00 PM EDT Images from the original note were not included. [facility] Note Reason for cardiology consult: Syncope Chief Complaint: Syncope HPI: Daphney Montesinos is a 24 y.o. female without prior cardiac history. She denies history of hypertension hyperlipidemia or diabetes mellitus. About 3 weeks ago when she was 23 weeks she had a syncopal episode. 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 Since then she had several episodes of syncope near syncope, allof them when she is standing, sometimes she can avoid them by sitting right away. She has been drinking and eating well. No nausea or vomiting or diarrhea. She does not drink caffeine or alcohol. Shetries to drink a lot of water. She is wearing compression stockings knee-high during the daytime. 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 Never had similar episodes prior to the . She had prior brief pregnancies but had early loss, this is the first lasting She went to the emergency room and she was in sinus tachycardia. All labs were normal. EKG showed only sinus tachycardia. Chest CTA was negative for PE or any abnormalities. Her packer and carry out ordered echo which came back normal. A nurse friend noted while she was listening to her that her heart rategoes to fast followed by slower and keeps doing that. The patient is concerned about having other type of arrhythmia Other than that she denies chest pain or shortness of breath at rest or with exertion. She denies orthopnea or paroxysmal nocturnal dyspnea or legs edema or legs comfort on exertion. She does not drink caffeine or alcohol. No history of illicit drugs Cardiology ROS: GENERAL: Denies fever, chills, night sweats, weight loss. HEENT: Denies changes in vision, photophobia, changes in hearing, epistaxis, oral bleeding. CARDIOVASCULAR: Described above in the RESPIRATORY: Denies SOB, coughing, wheezing GI: Denies abdominal pain, nausea/vomiting, heartburn, melena/hematochezia. RENAL: Denies dysuria, hematuria, flank pain. MSK: Denies muscle weakness/pain, arthralgias/joint pain. NEUROLOGIC: Denies LOC, weakness, numbness, headaches. SKIN: Denies abnormal rashes or bleeding. PSYCH: Denies significant anxiety, depression, sleep disturbances. Past Medical History She has a past medical history of Palpitations (01/24/2025) and Syncope and collapse. Surgical History She has no past surgical history on file. Social History She reports that she has never smoked. She has never used smokeless tobacco. She reports that she does not currently use alcohol. She reports that she does not use drugs. Family History Family History[1] Allergies Cephalexin, Ciprofloxacin, and Prednisone Medications Current Medications[2] Last Recorded Vitals Visit Vitals BP 106/82 (BP Location: Left arm, Patient Position: Standing) Pulse (!) 113 Wt 83.5 kg (184 lb) SpO2 96% Smoking Status Never Physical Examination: GENERAL: alert and oriented x3, well developed, in no acute distress. HEAD: atraumatic, normocephalic. EYES: TAMRA, EOMI. NECK: trachea midline, no JVD present, no carotid bruits present. CARDIAC: S1, S2 present. RRR. No murmur, rubs, or gallops. RESPIRATORY: CTAB, no increased effort of breathing, no rales, rhonchi, or wheezing. ABDOMEN: soft, nontender, nondistended. EXTREMITIES: no lower extremity edema, peripheral pulses are 2+ bilaterally. No rash/skin discoloration present. NEURO: strength/sensation equal and symmetric in bilateral upper and lower extremities. PSYCH: appropriate mood, affect, and judgement. Labs: 2024 HbA1c 4.7%, average glucose 88 Total protein 6.9 TSH 1.626 01/07/2025 White blood count 12.4, hemoglobin 11.3, hematocrit 31.9, platelets 299 Sodium 138, potassium 3.3, BUN 5, creatinine 0.41, GFR above 60, glucose 101, calcium 8.1 BNP 57, high-sensitivity troponin less than 4 Last Images: EKG 01/07/2025 showed sinus tachycardia otherwise normal EKG Echo 01/20/2025 CTA of the chest 01/07/2025 No PE, lungs are normal Assessment and Plan: Dizziness and palpitations, most likely due to orthostatic hypotension and compensating sinus tachycardia/POTS as a result of All labs are normal. Her EKG showed mild sinus tachycardia. CTA no PE. Her echo is normal. 26-week GERD Plan: I explained to the patient's that her symptoms are most likely due to orthostatic hypotension and associated sinus tachycardia due to the hormonal changes during . 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 My recommendation is to try a thigh-high compression stockings. I gave her prescription of that, moderate pressure 20 to 30 mmHg during the daytime. She was advised again to avoid caffeine and alcohol and to increase her fluids intake with electrolytes. I discussed with her the possibility of using Florinef for treatment. We discussed that in details. Florinef in is considered category C, also it could cause adrenal insufficiency in the . She understands the above very well and she will discuss that with her packer and carry out and let me know. She was given written materials to review I will provide her with 2 weeks event monitor to evaluate for other arrhythmias during her symptoms I will obtain a.m. cortisol She was given a notice to her job that probably she will continue to have those symptoms the rest of her , and sedentary job was recommended for that duration Follow-up in 3 weeks or so Samreen Chen MD,[facility] [1] Family History Problem Relation Name Age of Onset Hypertension Father [2] Current Outpatient Medications: ondansetron (Zofran) 4 mg tablet, Take 4 mg by mouth every 8 (eight) hours if needed., Disp: , Rfl: 115/iron/folic acid ( 19 ORAL), Take by mouth., Disp: , Rfl: documented in this encounter Plan of Treatment Upcoming Encounters Date Type Department Care Team (Late st Contact Info) Description 02/14/2025 2:20 PM EDT Office Visit [facility] [address] [place] [phone] Samreen Chen MD [address] [place] [address] Scheduled Orders Name Type Priority Associated Diagnoses Orde r Schedule Cortisol Lab Routine Syncope and collapse Expected: 01/24/2025 (Approximate), Expires: 01/24/2026 documented as of this encounter Visit Diagnoses Diagnosis Syncope and collapse- Primary Palpitations 26 weeks gestation of documented in this encounter Care Teams Energy Systems Laboratory Director Relationship Specialty Start Date End Date Jack Woods DO [address] [place] [address] PCP - General Obstetrics and Gynecology 01/24/25 documented as of this encounter
--- OUTSIDE RECORDS SUMMARY | 2025-01-28 08:40 | XMS_ITS | Encounter Summary ---
Author Organization [facility] Address [address] [facility] [place] [address] Care Team Providers Care Open Hearth Furnace Operator Helper Name Role Phone Alberto Mayes MD Primary Care Provider Reason for Visit * Reason Comments Routine Visit Encounter Details Date Type Department Care Team (Late st Contact Info) Description 01/28/2025 8:40 AM EDT Routine [facility] [address] [place] [address] Jayla Leiva PA [address] [place], [place] [id number] Second trimester ([facility] 27 weeks gestation of ([facility]); Elevated glucose tolerance test Social History Tobacco Use Types Packs/Day Years [...] Sign Reading Time Taken Comments Blood Pressure 112/70 01/28/2025 8:54 AM EDT Pulse - - Temperature - - Respiratory Rate - - Oxygen Saturation - - Inhaled Oxygen Concentration - - Weight 84.9 kg (187 lb 4 oz) 01/28/2025 8:54 AM EDT Height - - Body Mass Index 30.22 2024 1:52 PM EDT documented in this encounter Progress Notes * REKHA Ott - 01/28/2025 8:40 AM EDT Reason for Appointment: Patient ID: Daphney Montesinos is a 24 y.o. female who presents for Routine Visit Patient presents today for Return OB appointment. MEDICATIONS Current Outpatient Medications Medication Instructions aspirin 81 MG oral suspension ondansetron (ZOFRAN) 4 mg, Oral, Every 6 hours PRN, Take 1 tablet by mouth every 6 hours as needed for nausea. Vit w/Da-Ehatzmdmi-VC (PNV PO) ALLERGIES Allergies Allergen Reactions Cephalexin [...] HENT: Head: Normocephalic. Cardiovascular: Rate and Rhythm: Normal rate. Pulses: Normal pulses. Pulmonary: Effort: Pulmonary effort is normal. Breath sounds: Normal breath sounds. Abdominal: Palpations: Abdomen is soft. Musculoskeletal: General: Normal range of motion. Neurological: General: No focal deficit present. Mental Status: She is alert and oriented to person, place, and time. Psychiatric: Mood and Affect: Mood normal. Behavior: Behavior normal. Thought Content: Thought content normal. Judgment: Judgment normal. Vitals and nursing note reviewed. Vitals: Estimated body mass index is 30.22 kg/m?? as calculated from the following: Height as of 02/06/24: 5' 6 . Weight as of this encounter: 187 lb 4 oz. BP: 112/70 Patient's last menstrual period was 07/23/2024. ASSESSMENT & PLAN ICD-10-CM 1. Second trimester ([facility]) Z34.92 POCT urinalysis dipstick manually resulted 2. 27 weeks gestation of ([facility]) Z3A.27 3. Elevated glucose tolerance test R73.09 Glucose tolerance, 3 hours Glucose tolerance, 3 hours Return OB: Patient presents today for a routine obstetrics appointment. Patient is currently 27w0d . Patient states she is doing well but has complaints of being tired due to current . Patient has verbalizes frequent movement. labor precautions was discussed/given and patient was instructed to perform kick counts three times a day. Orders Placed This Encounter Procedures Glucose tolerance, 3 hours POCT urinalysis dipstick manually resulted Follow Up: Patient is to return to office in 2 week for routine OB appointment. Documented by REKHA Ott on behalf of: REKHA Ott documented in this encounter Plan of Treatment Upcoming Encounters Date Type Department Care Team (Late st Contact Info) Description 02/11/2025 9:50 AM EDT Routine [facility] [address] [place] [address] [place] [address] Vielka Romero, JAZZY [address] [place] [address] Scheduled Orders Name Type Priority Associated Diagnoses Orde r Schedule Glucose tolerance, 3 hours Lab Routine Elevated glucose tolerance test Expected: 01/28/2025 (Approximate), Expires: 01/28/2026 documented as of this encounter Procedures Procedure Name Priority Date/Time Associated Diagnosis Comments POCT URINALYSIS DIPSTICK Routine 01/28/2025 8:57 AM EDT Second trimester ([facility]) documented in this encounter Results * (ABNORMAL) POCT urinalysis dipstick manually resulted (01/28/2025 8:57 AM EDT) Color, UA Yellow Clarity, UA Clear Glucose, UA Negative Negative - 2000(110) ++++ mg/dL Bilirubin, UA Negative Negative - 4(70) +++ mg/dL Ketones, UA Negative Negative - 160(16) ++++ mg/dL Spec Grav, UA 1.010 1 - 1.03 Blood, UA Negative Negative - 50 Clarke/mcL pH, UA 6.5 5 - 9 Protein, UA Negative Negative - 2000(20) ++++ mg/dL Urobilinogen, UA 0.2 0.2 - 12 mg/dL Leukocytes, UA Positive Negative - 500+++ Kamaljit/mcL Comment:3+ Nitrite, UA Negative Negative - Positive Urine 01/28/2025 8:57 AM EDT Jack Woods DO POINT OF CARE TEST ENTER/EDIT OR DERABLES Final Result documented in this encounter Visit Diagnoses Diagnosis Second trimester ([facility]) state, incidental 27 weeks gestation of ([facility]) Elevated glucose tolerance test Impaired glucose tolerance test documented in this encounter Care Teams Open Hearth Furnace Operator Helper Relationship Specialty Start Date End Date Alberto Mayes MD PCP - General 05/02/23 documented as of this encounter
--- OUTSIDE RECORDS SUMMARY | 2025-01-29 07:54 | XMS_ITS | Encounter Summary ---
Author Organization [facility] Address [address] [place] [address] Care Team Providers Care Body Press Operator Name Role Phone Paloma Vazquez DO Unavailable Alberto Mayes MD Primary Care Provider [phone] Encounter Details Date Type Department Care Team (Late st Contact Info) Description 10/03/2024 Abstract [facility] [place] [id number] Jack Woods DO [address] [place], [place] [id number] Social History Tobacco Use Types Packs/Day Years [...] Info) Description 02/11/2025 9:50 AM EDT Routine [facility] [address] [place] [address] Vielka Romero, CLINICAL TRAINING SPECIALIST [address] [place] [address] documented as of this encounter Visit Diagnoses Not on filedocumented in this encounter Care Teams Body Press Operator Relationship Specialty Start Date End Date Alberto Mayes MD [address] [place] [address] PCP - General 05/02/23 Paloma Vazquez DO [address] [place] [address] Referring Physician Obstetrics and Gynecology 04/25/23 12/02/24 documented as of this encounter
--- OUTSIDE RECORDS SUMMARY | 2025-01-29 07:54 | XMS_ITS | Encounter Summary ---
Author Organization [facility] Address [address] [place] [address] Care Team Providers Care Sales Process Manager Name Role Phone Alberto Mayes MD Primary Care Provider [phone] Encounter Details Date Type Department Care Team (Late Contact Info) Description 01/16/2025 Bamboo flowsheet [facility] [address] [place] [address] Jack Woods DO [address] [facility] [address] [place], [place] [address] Social History Tobacco Use Types Packs/Day Years [...] 02/11/2025 9:50 AM EDT Routine [facility] [address] [place] [address] Vielka Romero, JAZZY [address] [facility] [place] [address] documented as of this encounter Visit Diagnoses Not on filedocumented in this encounter Care Teams Sales Process Manager Relationship Specialty Start Date End Date Alberto Mayes MD PCP - General 05/02/23 documented as of this encounter
--- OUTSIDE RECORDS SUMMARY | 2025-01-29 07:54 | XMS_ITS | Encounter Summary ---
Author Organization [facility] Address [address] [place] [address] Care Team Providers Care Portrait Photographer Name Role Phone Paloma Vazquez DO Unavailable Alberto Mayes MD Primary Care Provider Encounter Details Date Type Department Care Team (Late st Contact Info) Description 09/25/2024 Abstract [facility] [place] [address] Jack Woods DO [address] [facility] [address] [place], [place] [phone] Social History Tobacco Use Types Packs/Day Years [...] Routine [facility] [address] [place] [address] Vielka Romero, RN CLINICAL COORDINATOR [address] [facility] [place] [address] documented as of this encounter Visit Diagnoses Not on filedocumented in this encounter Care Teams Portrait Photographer Relationship Specialty Start Date End Date Alberto Mayes MD [address] [place] [address] PCP - General 05/02/23 Paloma Vazquez DO [address] [place] [address] Referring Physician Obstetrics and Gynecology 04/25/23 12/02/24 documented as of this encounter
--- OUTSIDE RECORDS SUMMARY | 2025-01-29 07:54 | XMS_ITS | Encounter Summary ---
Author Organization [facility] Address [address] [place] [address] Care Team Providers Care Inventory Planner Name Role Phone Alberto Mayes MD Primary Care Provider Encounter Details Date Type Department Care Team (Late st Contact Info) Description 01/16/2025 Telephone [facility] [address] [place] [address] [place] [address] Kelley Sepulveda LPN Social History Tobacco Use Types Packs/Day Years [...] encounter Miscellaneous Notes * Telephone Encounter - Kelley Sepulveda LPN - 01/16/2025 9:56 AM EDT Refer to cardiology at [facility] documented in this encounter Plan of Treatment Upcoming Encounters Date Type Department Care Team (Late st Contact Info) Description 02/11/2025 9:50 AM EDT Routine [facility] [address] [facility] [place] [address] Vielka Romero, JAZZY [address] [facility] [place] [address] documented as of this encounter Visit Diagnoses Not on filedocumented in this encounter Care Teams Inventory Planner Relationship Specialty Start Date End Date Alberto Mayes MD PCP - General 05/02/23 documented as of this encounter
--- OUTSIDE RECORDS SUMMARY | 2025-01-29 07:54 | XMS_ITS | Encounter Summary ---
Author Organization [facility] Address [id number] [address] [place] [address] Care Team Providers Care Patch Finisher Name Role Phone Unavailable Primary Care Provider Unavailabl e Encounter Details Date Type Department Care Team (Late st Contact Info) Description 10/04/2024 Orders Only Maternal- Medicine at [facility] [address] [place] [address] Ref Prov, [place] [address] Social History Tobacco Use Types Packs/Day Years [...]
--- OUTSIDE RECORDS SUMMARY | 2025-01-29 07:54 | XMS_ITS | Clinical Summary ---
Author Organization [facility] tem Address [id number] [address] [place] [address] Care Team Providers Care Tennis Racket Repairer Name Role Phone Unavailable Primary Care [...] by mouth in the morning. Active PNV 13-gehf-jxxcxhl olate-dha 29 mg iron-1 mg -350 mg comb pack,tablet DR,capsule DR Take 1 tablet by mouth in the morning. Active Encounters Date Type Department Care Team Description 12/10/2024 Travel 11/12/2024 10:00 AM EDT Office Visit Maternal- Medicine at [facility] [address] [place] [address] Samantha Peres MD Adnexal mass (Primary Dx); 16 weeks gestation of ; Uterine fibroids affecting in second trimester; Localized swelling of right lower extremity 11/12/2024 8:33 AM EDT - 11/12/2024 11:59 PM EDT Hospital Encounter [facility] [address] [place] [address] Encounter for anatomic survey Discharge Disposition: Home 11/12/2024 Orders Only Maternal- Medicine at [facility] [address] [place] [address] Fabrice, Jayla, TAR ROOFER Adnexal mass (Primary Dx); Uterine fibroids affecting [...] period is included. Anatomical Region Laterality Modality OB-MALT HOUSE KILN OPERATOR Ultrasound 12/10/2024 1:46 PM EDT Narrative 12/10/2024 4:07 PM EDT NAME: SERVANDO LANGLEY : 2000 SEX: F Accession Number: [id number] ORDERING PHYSICIAN: SAMANTHA PERES REFERRING PHYSICIAN: GABY FOX Coding ----- --------- Procedures [id number]: Follow-up Ultrasound, per fetus Indication ----- --------- Screening for follow-up survey, Uterine fibroid affecting , Supervision of high risk (bilateral complex ovaries), Screening for cervical length History ----- --------- OB History 3. Para 0 [id number] Current ----- --------- Cell free DNA Low [...] EFW (oz) 13 oz EFW by: Hadlock (HBF-EA-OR-FL) Extended Tibia 26.9 mm 19w 5d 48% Nuno Barrel Driller 5.3 mm CM 2.2 mm <1% Nicolaides [...] view. RVOT view. LVOT view. 3-vessel view. 3-jweswu-wjnbtzm view. Situs. Aortic arch view. Bicaval view. [...] heterogenous appearance. Recommendations ----- --------- Please see [facility] recommendations from prior clinical and/or ultrasound report documentation. Follow up growth ultrasound in the 3rd trimester to be done in referring OB office. Subsequent follow up or other follow up as clinically determined by primary OB provider unless otherwise specified by [facility]. Results forwarded to ordering provider so they can follow up with the patient as necessary. Procedure Note Zion Castillo MD - 12/10/2024 NAME: SERVANDO LANGLEY : 2000 SEX: F Accession Number: [id number] ORDERING PHYSICIAN: SAMANTHA PERES REFERRING PHYSICIAN: GABY FOX Coding ----- --------- Procedures [id number]: Follow-up Ultrasound, per fetus Indication ----- --------- Screening for follow-up survey, Uterine fibroid affecting ,Supervision of high risk (bilateral complex ovaries), Screening for cervical length History ----- --------- OB History 3. Para 0 [id number] Current ----- --------- Cell free DNA Low [...] EFW (oz) 13 oz EFW by: Hadlock (EGM-GE-JS-FL) Extended Tibia 26.9 mm 19w 5d 48% Nuno Barrel Driller 5.3 mm CM 2.2 mm <1% Nicolaides [...] 4-chamber view. RVOT view. LVOT view. 3-vessel view.3-yamapi-kzqkcgr view. Situs. Aortic arch view. Bicaval view. [...] with heterogenousappearance. Recommendations ----- --------- Please see [facility] recommendations from prior clinical and/or ultrasoundreport [...] RESULTS from Last 3 Months Insurance [address] [place], [place] [id number] [place] [address]
--- OUTSIDE RECORDS SUMMARY | 2025-01-29 07:54 | XMS_ITS | Encounter Summary ---
Author Organization [facility] Address [address] [place] [address] Care Team Providers Care Adjunct Mathematics Instructor Name Role Phone Paloma Vazquez DO Unavailable Alberto Mayes MD Primary Care Provider Encounter Details Date Type Department Care Team (Late st Contact Info) Description 09/24/2024 Abstract [facility] [place] [address] Jack Woods DO [address] [facility] [address] [place] [place], [place] [id number] Social History Tobacco Use Types Packs/Day Years [...] EDT Routine [facility] [address] [place] [address] Vielka Romero, POCKET MARKER [address] [facility] [place] [address] documented as of this encounter Visit Diagnoses Not on filedocumented in this encounter Care Teams Adjunct Mathematics Instructor Relationship Specialty Start Date End Date Alberto Mayes MD [address] [place] [address] PCP - General 05/02/23 Paloma Vazquez DO [address] [place] [address] Referring Physician Obstetrics and Gynecology 04/25/23 12/02/24 documented as of this encounter
--- OUTSIDE RECORDS SUMMARY | 2025-01-29 07:55 | XMS_ITS | Encounter Summary ---
Author Organization [facility] Address [address] [place] [address] Care Team Providers Care Clinical Laboratory Aides Teacher Name Role Phone Paloma Vazquez DO Unavailable Alberto Mayes MD Primary Care Provider [phone] Encounter Details Date Type Department Care Team (Late st Contact Info) Description 11/05/2024 Abstract [facility] [employer] [place] [address] Jack Woods DO [address] [facility] [address] [place] [place], [place] [phone] Social History Tobacco Use Types Packs/Day Years [...] EDT Routine [facility] [address] [place] [address] Vielka Romero, HARNESS RACING HANDICAPPER [address] [facility] [place] [address] documented as of this encounter Visit Diagnoses Not on filedocumented in this encounter Care Teams Clinical Laboratory Aides Teacher Relationship Specialty Start Date End Date Alberto Mayes MD [address] [place] [address] PCP - General 05/02/23 Paloma Vazquez DO [address] [place] [address] Referring Physician Obstetrics and Gynecology 04/25/23 12/02/24 documented as of this encounter
--- OUTSIDE RECORDS SUMMARY | 2025-01-29 07:55 | XMS_ITS | Encounter Summary ---
Author Organization [facility] Address [address] [place] [address] Care Team Providers Care Disability Manager Name Role Phone Paloma Vazquez DO Unavailable Alberto Mayes MD Primary Care Provider Encounter Details Date Type Department Care Team (Late st Contact Info) Description 12/06/2023 Abstract [facility] [address] [employer] [address] [place] [address] Corie Cavanaugh LPN [address] [place] [id number] Social History Tobacco Use Types Packs/Day Years [...] Department Care Team (Late Contact Info) Description 02/11/2025 9:50 AM EDT Routine [facility] [address] [place] [address] Vielka Romero, JAZZY [address] [place] [address] documented as of this encounter Visit Diagnoses Not on filedocumented in this encounter Care Teams Disability Manager Relationship Specialty Start Date End Date Alberto Mayes MD [address] [place] [address] PCP - General 05/02/23 Paloma Vazquez DO [address] [place] [address] Referring Physician Obstetrics and Gynecology 04/25/23 12/02/24 documented as of this encounter
--- OUTSIDE RECORDS SUMMARY | 2025-01-29 07:55 | XMS_ITS | Encounter Summary ---
Author Organization [facility] Address [address] [place] [address] Care Team Providers Care Single Ending Machine Operator Name Role Phone Paloma Vazquez DO Unavailable [phone] Alberto Mayes MD Primary Care Provider Encounter Details Date Type Department Care Team (Late st Contact Info) Description 12/27/2023 Abstract [facility] [address] [place] [address] Corie Cavanaugh LPN [address] [place] [id number] Social History Tobacco Use Types Packs/Day Years [...] 9:50 AM EDT Routine [facility] [address] [place] [address] Vielka Romero, JAZZY [address] [place] [address] documented as of this encounter Visit Diagnoses Not on filedocumented in this encounter Care Teams Single Ending Machine Operator Relationship Specialty Start Date End Date Alberto Mayes MD [address] [place] [address] PCP - General 05/02/23 Paloma Vazquez DO [address] [place] [address] Referring Physician Obstetrics and Gynecology 04/25/23 12/02/24 documented as of this encounter
--- OUTSIDE RECORDS SUMMARY | 2025-01-29 07:55 | XMS_ITS | Encounter Summary ---
Author Organization [facility] Address [address] [place] [address] Care Team Providers Care Contract Graphic Designer Name Role Phone Paloma Vazquez DO Unavailable [phone] Alberto Mayes MD Primary Care Provider Encounter Details Date Type Department Care Team (Late st Contact Info) Description 01/08/2024 Abstract [facility] [address] [facility] [place] [address] Jack Woods DO [address] [facility] [address] [place], [facility] Social History Tobacco Use Types Packs/Day [...] 9:50 AM EDT Routine [facility] [address] [place] [address] Vielka Romero, JAZZY [address] [facility] [place] [address] documented as of this encounter Visit Diagnoses Not on filedocumented in this encounter Care Teams Contract Graphic Designer Relationship Specialty Start Date End Date Alberto Mayes MD [address] [place] [address] PCP - General 05/02/23 Paloma Vazquez DO [address] [place] [address] Referring Physician Obstetrics and Gynecology 04/25/23 12/02/24 documented as of this encounter
--- OUTSIDE RECORDS SUMMARY | 2025-01-29 07:55 | XMS_ITS | Encounter Summary ---
Author Organization [facility] Address [address] [place] [address] Care Team Providers Care Membership Sales Advisor Name Role Phone Paloma Vazquez DO Unavailable [phone] Alberto Mayes MD Primary Care Provider Encounter Details Date Type Department Care Team (Late st Contact Info) Description 12/11/2023 Abstract [facility] [address] [facility] [place] [address] Jack Woods DO [address] [facility] [address] [place], [facility] Social History Tobacco Use Types [...] 9:50 AM EDT Routine [facility] [address] [place] [address] Vielka Romero, JAZZY [address] [facility] [place] [address] documented as of this encounter Visit Diagnoses Not on filedocumented in this encounter Care Teams Membership Sales Advisor Relationship Specialty Start Date End Date Alberto Mayes MD [address] [place] [address] PCP - General 05/02/23 Paloma Vazquez DO [address] [place] [address] Referring Physician Obstetrics and Gynecology 04/25/23 12/02/24 documented as of this encounter
--- OUTSIDE RECORDS SUMMARY | 2025-01-29 07:55 | XMS_ITS | Encounter Summary ---
Author Organization [facility] Address [address] [place] [address] Care Team Providers Care Ecommerce Project Manager Name Role Phone Paloma Vazquez DO Unavailable Alberto Mayes MD Primary Care Provider Encounter Details Date Type Department Care Team (Late Contact Info) Description 11/12/2024 External Result Encounter [facility] [place] [facility] [address] [place] [phone] Gaby Woods DO [address] [place], [place] [phone] Social History Tobacco Use Types Packs/Day Years [...] Routine [facility] [place] [facility] [address] [place] [address] Vielka Romero, JZAZY [address] [facility] [address] documented as of this encounter Procedures Procedure Name Priority Date/Time Associated Diagnosis Comments US OB 14+ WEEKS ANATOMY SCAN 11/12/2024 11:20 AM EDT documented in this encounter Results * US OB 14+ weeks anatomy scan (11/12/2024 11:20 AM EDT) Anatomical Region Laterality Modality Body Ultrasound 11/12/2024 11:2 0 AM EDT Narrative 11/12/2024 11:20 AM EDT THIS EXAM WAS PERFORMED AT [facility] NAME: SERVANDO LANGLEY : 2000 SEX: F Accession Number: [id number] ORDERING PHYSICIAN: GUADALUPE SCHMIDT REFERRING PHYSICIAN: GABY WOODS Coding ----- --------- Procedures 88657: Ultrasound, uterus, real time with image documentation, and maternal evaluation plus detailed anatomic examination, transabdominal approach;single or first gestation 99158: Transvaginal Ultrasound (OB) Indication ----- --------- Screening for Anatomic Survey, Uterine fibroid affecting , Supervision of high risk (bilateral complex ovaries), Screening for cervical length. History ----- --------- OB History 3. Para 0 [id number] Current ----- --------- Cell free DNA Low [...] EFW (oz) 5 oz EFW by: Hadlock ([id number]-AY-FL) Extended Tibia 17.7 mm 16w 0d 61% Nuno CM 1.6 mm <1% Nicolaides Nasal bone 4.1 mm 22% [facility] Head / Face / Neck Cephalic [...] Thorax 4-chamber view. RVOT view. 3-vessel view. 5-ieekau-uavswmi view. Aortic arch view. Ductal arch view. [...] primary OB provider unless otherwise specified by [facility]. Results forwarded to ordering provider so they can follow up with the patient as necessary. The copy-to physician of this order is GABY Miguel The ordering physician of this order is GUADALUPE Pacheco Procedure Note Radiology, Radiologist, MD - 11/12/2024 THIS EXAM WAS PERFORMED AT [facility] NAME: SERVANDO LANGLEY : 2000 SEX: F Accession Number: [id number] ORDERING PHYSICIAN: GUADALUPE SCHMIDT REFERRING PHYSICIAN: GABY WOODS Coding ----- --------- Procedures [id number]: Ultrasound, uterus, real time with imagedocumentation, and maternal evaluation plus detailed anatomic examination, transabdominalapproach;single or first gestation 09840: Transvaginal Ultrasound (OB) Indication ----- --------- Screening for Anatomic Survey, Uterine fibroid affecting ,Supervision of high risk (bilateral complex ovaries), Screening for cervical length. History ----- --------- OB History 3. Para 0 [id number] Current ----- --------- Cell free DNA Low [...] EFW (oz) 5 oz EFW by: Hadlock ([id number]-FL) Extended Tibia 17.7 mm 16w 0d 61% [...] Thorax 4-chamber view. RVOT view. 3-vessel view. 4-ijtwwq-jdnqgegrobc. Aortic arch view. Ductal arch view. Interventricular [...] heterogenousechogenic textures. Recommendations ----- --------- Please see [facility] documentation from today. The patient is scheduled in four weeks to complete anatomic survey andcervical length ultrasound. Subsequent follow up or other follow up as clinically determined byprimary OB provider unless otherwise specified by [facility]. Results forwarded to ordering provider so they can follow up with thepatient as necessary. The copy-to physician of this order is GABY Miguel The ordering physician of this order is GUADALUPE Pahceco us Gaby Woods DO IMG OB US PROCEDURES Final Resul t documented in this encounter Visit Diagnoses Not on filedocumented in this encounter Care Teams Ecommerce Project Manager Relationship Specialty Start Date End Date Alberto Mayes MD [address] [facility] [address] [place] [address] PCP - General 05/02/23 Paloma Vazquez DO [address] [place] [address] Referring Physician Obstetrics and Gynecology 04/25/23 12/02/24 documented as of this encounter
--- OUTSIDE RECORDS SUMMARY | 2025-01-29 07:55 | XMS_ITS | Clinical Summary ---
Author Organization [facility] Address [address], [address] [place] [address] Care Team Providers Care Panelboard Assembler Name Role Phone Unavailable Primary Care [...]
--- OUTSIDE RECORDS SUMMARY | 2025-01-29 07:55 | XMS_ITS | Encounter Summary ---
Author Organization [facility] Address [address] [place] [address] Care Team Providers Care Motion Study Engineer Name Role Phone Alberto Mayes MD Primary Care Provider Encounter Details Date Type Department Care Team (Late st Contact Info) Description 01/22/2025 Abstract [facility] [address] [place] [phone] Jack Woods DO [address] [place], [place] [address] Social History Tobacco Use Types Packs/Day Years [...] Routine [facility] [address] [place] [address] Vielka Romero, JAZZY [address] [place] [phone] documented as of this encounter Visit Diagnoses Not on filedocumented in this encounter Care Teams Motion Study Engineer Relationship Specialty Start Date End Date Alberto Mayes MD PCP - General 05/02/23 documented as of this encounter
--- OUTSIDE RECORDS SUMMARY | 2025-01-29 07:55 | XMS_ITS | Encounter Summary ---
Author Organization [facility] Address [address] [place] [address] Care Team Providers Care Photographic Engineer Name Role Phone Paloma Vazquez DO Unavailable [phone] Alberto Mayes MD Primary Care Provider Encounter Details Date Type Department Care Team (Late st Contact Info) Description 11/12/2024 Abstract [facility] [place] [phone] Jack Woods DO [address] [facility] [address] [place], [place] [phone] Social History Tobacco Use Types Packs/Day Years [...] EDT Routine [facility] [address] [place] [address] Vielka Romero, EXTRACTING MACHINE OPERATOR [address] [facility] [place] [address] documented as of this encounter Visit Diagnoses Not on filedocumented in this encounter Care Teams Photographic Engineer Relationship Specialty Start Date End Date Alberto Mayes MD [address] [place] [address] PCP - General 05/02/23 Paloma Vazquez DO [address] [place] [address] Referring Physician Obstetrics and Gynecology 04/25/23 12/02/24 documented as of this encounter
--- OUTSIDE RECORDS SUMMARY | 2025-01-29 07:55 | XMS_ITS | Encounter Summary ---
Author Organization [facility] Address [address] [place] [address] Care Team Providers Care Roll Clamp Operator Name Role Phone Paloma Vazquez DO Unavailable Alberto Mayes MD Primary Care Provider Encounter Details Date Type Department Care Team (Late st Contact Info) Description 05/01/2023 External Result Encounter [facility] Department Unsolicited Paloma Vazquez, DO [address] [place] [address] Social History Tobacco Use Types Packs/Day Years [...] AM EDT Routine [facility] [place] [facility] [address] [place] [address] Vielka Romero, TEAM PHYSICIAN [address] [place] [address] documented as of this encounter Procedures Procedure Name Priority Date/Time Associated Diagnosis Comments XR HYSTEROSALPINGOGRAM 11:41 AM EST documented in this encounter Results * XR hysterosalpingogram (05/01/2023 11:41 AM EST) Anatomical Region Laterality Modality Uterus Radiographic Jennifer ging 05/01/2023 11:4 1 AM EST Impressions 05/02/2023 2:28 PM EST Normal hysterosalpingogram. Impression dictated by: Librado Haney M.D.05/01/2023 11:43 AM Dictation Location: [place] [address] Transcribed By: [facility] 05/01/23 1143 Dictated By: Librado Haney II, MD 05/01/23 1141 Signed By: <Electronically signed by Librado Haney II, MD in OV> 05/01/23 1143 Narrative 05/02/2023 2:28 PM EST [facility] Main [place] [address] [place] [address] Fluoroscopy Report Signed Patient: Daphney Montesinos MR#: [id number] : 2000 Acct:[id number] Age/Sex: 23 / F ADM Date: 05/01/23 Loc: XD Room: Type: [facility] Attending Dr: Paloma Vazquez DO Copies to: [...] hysterosalpingography Procedure Note Radiology, Radiologist, - 06/27/2023 [facility] Main [place] [address] [place] [address] Fluoroscopy Report Signed Patient: Daphney Montesinos JMR#: [id number] : 2000Acct:[id number] Age/Sex: 23 / FADM Date: 05/01/23 Loc: XD Room:Type: [facility] Attending Dr: Paloma Vazquez DO Copies to: [...] M.D.05/01/2023 11:43 AM Dictation Location: [place] [address] Transcribed By: [facility] 05/01/23 1143 Dictated By: Librado Haney II, MD 05/01/23 1141 Signed By: <Electronically signed by Librado Haney II, MD inO> 05/01/23 1143 Paloma Vazquez DO IMG XR PROCEDURES Edited Re sult - Final documented in this encounter Visit Diagnoses Not on filedocumented in this encounter Care Teams Roll Clamp Operator Relationship Specialty Start Date End Date Alberto Mayes MD [address] [place] [address] PCP - General 05/02/23 Paloma Vazquez DO [address] [place] [address] Referring Physician Obstetrics and Gynecology 04/25/23 12/02/24 documented as of this encounter
--- OUTSIDE RECORDS SUMMARY | 2025-01-29 07:55 | XMS_ITS | Encounter Summary ---
Author Organization [facility] Address [address] [place] [address] Care Team Providers Care Branch Office Administrator Name Role Phone Paloma Vazquez DO Unavailable [phone] Alberto Mayes MD Primary Care Provider Encounter Details Date Type Department Care Team (Late st Contact Info) Description 12/06/2023 Abstract [facility] [address] [place] [address] Corie Cavanaugh LPN [address] [place] [phone] Social History Tobacco Use Types Packs/Day Years [...] 9:50 AM EDT Routine [facility] [address] [facility] [place] [address] Vielka Romero, JAZZY [address] [address] documented as of this encounter Visit Diagnoses Not on filedocumented in this encounter Care Teams Branch Office Administrator Relationship Specialty Start Date End Date Alberto Mayes MD [address] [place] [address] PCP - General 05/02/23 Paloma Vazquez DO [address] [place] [address] Referring Physician Obstetrics and Gynecology 04/25/23 12/02/24 documented as of this encounter
--- OUTSIDE RECORDS SUMMARY | 2025-01-29 07:55 | XMS_ITS | Clinical Summary ---
Author Organization [facility] Healthcare Address [address] [place] [address] Care Team Providers Care Content Creation Manager Name Role Phone Alberto Mayes MD [...] MG oral suspension 10/14/19 24 Active Vit w/Jq-Xofjebdxm-WK (PNV PO) Active ondansetron (Zofran) 4 MG [...] 391.3 (180 Fe) MG capsuleIndications :Second trimester ([facility]) Take 1 capsule (391.3 mg) by mouth Daily 30 capsule 6 01/08/20 025 Discontinued Encounters Date Type Department Care Team Description 01/28/2025 8:40 AM [place] [phone] Jayla Art PA Second trimester ([facility]); 27 weeks gestation of ([facility]); Elevated glucose tolerance test 01/28/2025 [place] [address] Jayla Art PA 01/27/2025 Clinisync Result Encounter NOMS External Department Unsolicited Gaby Woods, 01/22/2025 [place] [phone] Gaby Woods, 01/21/2025 Clinisync Result Encounter NOMS External Department Unsolicited Jayla Art PA 01/16/2025 9:20 AM [place] [phone] Gaby Woods, DO 25 weeks gestation of ([facility]); Second trimester ([facility]); Palpitations; Syncope, unspecified syncope type; Gastroesophageal reflux in ([facility]) 01/16/2025 [place] [phone] Kelley Sepulveda LPN 01/16/2025 Bamboo flowsheet [facility] [place] [address] Gaby Woods, 01/09/2025 Telephone [facility] [place] [facility] [address] [facility] [place] [address] Jayla Art PA 01/07/2025 1:50 PM EDT Routine [facility] [place] [facility] [address] [facility] [place] [address] Jayla Art PA Second trimester ([facility]); 23 weeks gestation of ([facility]); Palpitations; Tachycardia 01/07/2025 Bamboo flowsheet [facility] [place] [facility] [address] [facility] [place] [address] Jayla Art PA 01/03/2025 Telephone [facility] [place] [facility] [address] [facility] [place] [address] Gaby Woods DO 12/31/2024 2:10 PM EDT Routine [facility] [place] [facility] [address] [facility] [place] [address] Gaby Woods, Second trimester ([facility]); 23 weeks gestation of ([facility]); Diabetes mellitus screening 12/31/2024 Bamboo flowsheet [facility] [place] [facility] [address] [facility] [place] [address] Gaby Woods DO 12/31/2024 Travel 12/03/2024 1:30 PM EDT Routine [facility] [place] [facility] [address] [facility] [place] [address] Jayla Art PA Second trimester ([facility]); 19 weeks gestation of ([facility]) 12/03/2024 Bamboo flowsheet [facility] [place] [facility] [address] [facility] [place] [address] Jayla Art PA 11/20/2024 Telephone [facility] [place] [facility] [address] [place] [address] Manjula Elias MA 11/14/2024 Orders Only [facility] [place] [facility] [address] [place] [address] Manjula Elias MA 11/12/2024 Abstract [facility] [place] [facility] [place] [address] Gaby Woods, DO 11/12/2024 Abstract [facility] [place] [facility] [address] [place] [address] Gaby Woods, DO 11/12/2024 External Result Encounter [facility] [place] [facility] [address] [place] [address] Gaby Woods, DO 11/05/2024 1:40 PM EDT Routine [facility] [place] [facility] [address] [place] [address] Gaby Woods, DO Well woman exam with routine gynecological exam; Second trimester ([facility]); 15 weeks gestation of ([facility]); Vaginal discharge; STD exposure 11/05/2024 Abstract [facility] [place] [facility] [address] [facility] [place] [address] Gaby Woods, DO 11/05/2024 External Result Encounter NOMS External Department Unsolicited Gaby Woods, DO 11/05/2024 Clinisync Result Encounter NOMS External Department Unsolicited Gaby Woods, DO 11/05/2024 External Result Encounter NOMS External Department Unsolicited Gaby Woods, DO 11/05/2024 Bamboo flowsheet [facility] [place] [facility] [address] [place] [address] Gaby Woods, DO 11/04/2024 Travel from Last [...] 4 oz) 01/28/2025 8:54 AM EDT Height 167.6 cm (5' 6 ) 2024 1:52 PM EDT Body Mass Index 30.22 2024 1:52 PM EDT Plan of Treatment Upcoming Encounters Date Type Department Care Team (Late st Contact Info) Description 02/11/2025 9:50 AM EDT Routine [facility] [place] [facility] [address] [facility] [place] [address] Vielka Romero, JAZZY [address] [facility] [place] [address] Procedures Procedure Name Priority Date/Time Associated Diagnosis Comments POCT URINALYSIS DIPSTICK Routine 01/28/2025 8:57 AM EDT Second trimester ([facility]) GLUCOSE 1 HOUR Routine 01/27/2025 9:23 AM EDT CA ECHO DOPPLER COMPLETE 01/21/2025 9:58 AM EDT POCT URINALYSIS DIPSTICK Routine 01/16/2025 9:45 AM EDT 25 weeks gestation of ([facility]) Second trimester ([facility]) POCT URINALYSIS DIPSTICK Routine 01/07/2025 2:18 PM [...] Second trimester ([facility]) 15 weeks gestation of ([facility]) IGP,APTIMA HPV,AGE GDLN Routine 11/05/2024 1:57 PM EDT PAP SMEAR Routine 11/05/2024 12:00 AM EDT PATHOLOGY REQUEST FOR LAB GIA Routine 11/05/2024 12:00 AM EDT from Last 3 Months Results * (ABNORMAL) POCT urinalysis dipstick manually resulted (01/28/2025 8:57 AM EDT) Only the most recent of6 resultswithin the time period is included. Color, [...] - Positive Urine 01/28/2025 8:57 AM EDT us Gaby Peggy DO POINT OF CARE TEST ENTER/EDIT OR DERABLES Final Result * (ABNORMAL) GLUCOSE 1 HOUR (01/27/2025 9:23 AM EDT) GLUCOSE 1 HOUR 150(H) <130 mg/dL TB 01/27/2025 9:23 AM EDT 01/27/2025 9:24 AM EDT Narrative [facility] - 01/27/2025 10:14 AM EDT us Gaby Peggy DO LAB BLOOD ORDERABLES Final Resul t [facility] * CA ECHO DOPPLER COMPLETE (01/21/2025 9:58 AM EDT) Anatomical Region Laterality Modality Other 01/21/2025 9:58 AM EDT Narrative 01/21/2025 9:59 [place] [address] Cardiology Report Signed Patient: DAPHNEY AL MR#: [id number] : 2000 Acct:[id number] Age/Sex: 24 / F ADM Date: 01/20/25 Loc: CARD Attending Dr: Jayla Art Ordering Physician: Jayla Art Date of Service: 01/20/25 Procedure(s): CA echo doppler complete Accession Number(s): [id number] cc: Jayla Art; Alberto Mayes M.D. Patient Name: DAPHNEY AL MR#: [id number] : 2000 Exam Date: 01/20/2025 Ordering Doctor: [...] M.D. Signed By: 01/21/25958 DD/ 7 TD/TT: Camera Storage Clerk: Procedure Note Radiology, Radiologist, MD - 01/21/2025 [place] [address] Cardiology Report Signed Patient: DAPHNEY AL JMR#: [id number] : 2000Acct:[id number] Age/Sex: 24 FADM Date: 01/20/25 Loc: CARD Attending Dr: Jayla Art Ordering Physician: Jayla Art Date of Service: 01/20/25 Procedure(s): CA echo doppler complete Accession Number(s): [id number] cc: Jayla Art; Alberto Mayes M.D. Patient Name: DAPHNEY AL MR#: [id number] : 2000 Exam Date: 01/20/2025 Ordering Doctor: REKHA ART . ECHOCARDIOGRAM REPORT PROCEDURE: CA ECHO DOPPLER COMPLETE INDICATIONS: Palpitations, tachycardia, 26 weeks COMPARISON: None. DESCRIPTION: COMPLETE ECHOCARDIOGRAM Real-time transthoracic echocardiography with 2D, M-mode, spectral and color flow Dopplerperformed. QUALITY: Technically difficult due to poor acoustics. LEFT VENTRICLE: Normal chamber size. Normal left ventricular wall thickness. LV EF: Global left ventricular systolic function is difficult toassess hypokinesis of; visually estimated ejection fraction 55 to 60%. Unable to assess regional wall motion abnormalities. DIASTOLIC: Normal diastolic function. ATRIAL SEPTUM: Inadequately seen LEFT ATRIUM: Normal chamber size. RIGHT ATRIUM: Normal chamber size. RIGHT VENTRICLE: Normal chamber size. Normal right ventricularsystolic function. TRICUSPID VALVE: Normal mobility and thickness. No stenosis with no regurgitation. MITRAL VALVE: Normal mobility and thickness. No evidence of mitralvalve stenosis. There is no mitral annular calcification. No mitralregurgitation. AORTIC VALVE: Normal trileaflet appearance. No visible sclerosis.Normal leaflet mobility. No evidence of aortic valve [...] 09:58 Dictated By: Randy Marie M.D. Signed By:01/21/25958 DD/ 7 TD/TT: Camera Storage Clerk: us Jayla DA [facility] Final Result * US OB 14+ weeks anatomy scan (11/12/2024 11:20 AM EDT) Anatomical Region Laterality Modality Body Ultrasound 11/12/2024 11:2 0 AM EDT Narrative 11/12/2024 11:20 AM EDT THIS EXAM WAS PERFORMED AT [facility] NAME: SERVANDO LANGLEY : 2000 SEX: F Accession Number: [id number] ORDERING PHYSICIAN: GUADALUPE PERES REFERRING PHYSICIAN: GABY WOODS Coding ----- --------- Procedures 91596: Ultrasound, uterus, real time with image documentation, and maternal evaluation plus detailed anatomic examination, transabdominal approach;single or first gestation 00856: Transvaginal Ultrasound (OB) Indication ----- --------- Screening for Anatomic Survey, Uterine fibroid affecting , Supervision of high risk (bilateral complex ovaries), Screening for cervical length. History ----- --------- OB History 3. Para 0 [id number] Current ----- --------- Cell free DNA Low [...] EFW (oz) 5 oz EFW by: Hadlock ([id number]-[id number]-TZ-FL) Extended Tibia 17.7 mm 16w 0d 61% [...] Thorax 4-chamber view. RVOT view. 3-vessel view. 0-xtvaeo-ofaauli view. Aortic arch view. Ductal arch view. [...] - 11/12/2024 THIS EXAM WAS PERFORMED AT [facility] NAME: SERVANDO LANGLEY : 2000 SEX: F Accession Number: [id number] ORDERING PHYSICIAN: GUADALUEP PERES REFERRING PHYSICIAN: GABY WOODS Coding ----- --------- Procedures 61875: Ultrasound, uterus, real time with imagedocumentation, and maternal evaluation plus detailed anatomic examination, transabdominalapproach;single or first gestation 62906: Transvaginal Ultrasound (OB) Indication ----- --------- Screening for Anatomic Survey, Uterine fibroid affecting ,Supervision of high risk (bilateral complex ovaries), Screening for cervical length. History ----- --------- OB History 3. Para 0 [id number] Current ----- --------- Cell free DNA Low [...] EFW (oz) 5 oz EFW by: Hadlock (OEA-AR-GE-FL) Extended Tibia 17.7 mm 16w 0d 61% [...] Thorax 4-chamber view. RVOT view. 3-vessel view. 2-kjmijs-gxkdizfulrh. Aortic arch view. Ductal arch view. Interventricular [...] byprimary OB provider unless otherwise specified by [facility]. Results forwarded to ordering provider so they can follow up with thepatient as necessary. The copy-to physician of this order is GABY Miguel The ordering physician of this order is GUADALUPE Pacheco us Gaby Woods DO IMG OB US PROCEDURES Final Resul t * RECURRENT VAGINITIS (HTRX) (11/05/2024 3:29 PM EDT) [facility] ATOPOBIUM VAGINAE 0 19.961 - 24.689 ppm 11/06/2024 7:37 AM EDT [facility] ATOPOBIUM VAGINAE Not Detected 19.961 - 24.689 ppm 11/06/2024 7:37 AM EDT [facility] BVAB 2,3 (BACTERIAL VAGINOSIS ASSOCIATED BACTERIA 2, 3); MOBILUNCUS SPP 0 19.961 - 24.689 ppm 11/06/2024 7:37 AM EDT [facility] BVAB 2,3 (BACTERIAL VAGINOSIS ASSOCIATED BACTERIA 2, 3); MOBILUNCUS SPP Not Detected 19.961 - 24.689 ppm 11/06/2024 7:37 AM EDT [facility] LINDA ALBICANS, PARAPSILOSIS, TROPICALIS 0 19.961 - 30.770 ppm 11/06/2024 7:37 AM EDT [facility] LINDA ALBICANS, PARAPSILOSIS, TROPICALIS Not Detected 19.961 - 30.770 ppm 11/06/2024 7:37 AM EDT [facility] LINDA GLABRATA 0 23.000 - 32.138 ppm 11/06/2024 7:37 AM EDT [facility] LINDA GLABRATA Not Detected 23.000 - 32.138 ppm 11/06/2024 7:37 AM EDT [facility] LINDA KRUSEI 0 23.000 - 32.271 ppm 11/06/2024 7:37 AM EDT [facility] LINDA KRUSEI Not Detected 23.000 - 32.271 ppm 11/06/2024 7:37 AM EDT [facility] [place] [facility] CHLAMYDIA TRACHOMATIS 0 23.000 - 31.467 ppm 11/06/2024 7:37 AM EDT [facility] CHLAMYDIA TRACHOMATIS Not Detected 23.000 - 31.467 ppm 11/06/2024 7:37 AM EDT [facility] GARDNERELLA VAGINALIS 0 19.961 - 24.689 ppm 11/06/2024 7:37 AM EDT [facility] GARDNERELLA VAGINALIS Not Detected 19.961 - 24.689 ppm 11/06/2024 7:37 AM EDT [facility] MEGASPHAERA (TYPES 1, 2) 0 19.961 - 24.689 ppm 11/06/2024 7:37 AM EDT [facility] MEGASPHAERA (TYPES 1, 2) Not Detected 19.961 - 24.689 ppm 11/06/2024 7:37 AM EDT [facility] NEISSERIA GONORRHOEAE 0 23.000 - 32.117 ppm 11/06/2024 7:37 AM EDT [facility] NEISSERIA GONORRHOEAE Not Detected 23.000 - 32.117 ppm 11/06/2024 7:37 AM EDT [facility] TRICHOMONAS VAGINALIS 0 23.000 - 32.119 ppm 11/06/2024 7:37 AM EDT [facility] TRICHOMONAS VAGINALIS Not Detected 23.000 - 32.119 ppm 11/06/2024 7:37 AM EDT [facility] MYCOPLASMA GENITALIUM 0 19.961 - 24.689 ppm 11/06/2024 7:37 AM EDT [facility] MYCOPLASMA GENITALIUM Not Detected 19.961 - 24.689 ppm 11/06/2024 7:37 AM EDT [facility] Tissue 11/05/2024 3:29 PM EDT 11/06/2024 2:40 AM EDT us Gaby Woods DO LAB BLOOD ORDERABLES Final Resul t [facility] [address] [place] [address] * IGP,APTIMA HPV,AGE GDLN (11/05/2024 1:57 PM EDT) AGE GDLN ACOG TESTING Note . [facility] Comment: TESTS RESULT FLAG UNITS REF RANGE LAB Clinician Provided Cytology Information Source.............Cervix No. of containers..01 ThinPrep Vial Age Algo ACOG Nery... FLAG LEGEND: L-Low Normal,H-High Normal,LL-Alert Low,HH-Alert High <-Panic Low,>-Panic High,A-Abnormal,AA-Critical Abnormal Performed at: 01 =G [address] S[address] [place] [address] Gypsy Mtz MD, IGP, RFX APTIMA HPV ASCU Note . [facility] Comment: TESTS RESULT FLAG UNITS REF RANGE LAB DIAGNOSIS: 02 NEGATIVE FOR INTRAEPITHELIAL LESION OR MALIGNANCY. THIS SPECIMEN WAS RESCREENED PART OF OUR MANAGER INTERN PROGRAM. Specimen adequacy: 02 Satisfactory for evaluation. Endocervical and/or squamous metaplastic cells (endocervical component) are present. Performed by: 02 Felicity Rosen, Salesperson [employer] (ASC) QC reviewed by: 02 Esme Mahoney, Salesperson [employer] (ASC) . 02 Note: Note 02 The Pap [...] <-Panic Low,>-Panic High,A-Abnormal,AA-Critical Abnormal Performed at: [address] [place] [address] Gypsy Mtz MD, Performed at: =G - [facility] [address], [place] [id number] Small Lot Operator: Gypsy Mtz MD, Phone: [phone] Performed at: [facility] [id number] Small Lot Operator: Gypsy Mtz MD, Phone: [phone] 11/05/2024 1:57 PM EDT 11/05/2024 9:04 PM EDT Narrative [facility] - 11/11/2024 3:09 PM EDT SPATULA-ALONE CERVIX us Gaby Peggy DO LAB BLOOD ORDERABLES Final [facility]ul t [facility] * PATHOLOGY REQUEST FOR LAB GIA (11/05/2024 12:00 AM EDT) PATHOLOGY REQUEST FOR LAB GIA 11/12/2024 8:15 AM EDT [facility] Comment:See report. Scanned copy available in EMR. Other Topography unknown / Unknown 11/05/2024 11/06/2024 1:31 PM EDT Narrative [facility] - 11/12/2024 8:15 AM EDT SKIN TAG us Gaby Peggy DO LAB BLOOD ORDERABLES Final Resul t Performing Organization Address City/[facility]/ZIP Co de Phone Number [facility] [address] [place] [address], [facility] [address] [place] [address] * Pap Smear (11/05/2024 12:00 AM EDT) Swab Cervical swab / Unknown us Gaby Peggy DO LAB CYTOLOGY ORDERABLES Final Re sult EXTERNAL LAB from Last 3 Months Insurance BS Care Teams Content Creation Manager Relationship Specialty Start Date End Date Alberto Mayes MD PCP - General 05/02/23
--- OUTSIDE RECORDS SUMMARY | 2025-01-29 07:55 | XMS_ITS | Encounter Summary ---
Author Organization [facility] Address [address] [place] [address] Care Team Providers Care Painter Interior Finish Name Role Phone Paloma Vazquez DO Unavailable Alberto Mayes MD Primary Care Provider Encounter Details Date Type Department Care Team (Late st Contact Info) Description 11/14/2024 Orders Only [facility] [place] [address] [place] [address] Manjula Elias MA Social History Tobacco [...] 9:50 AM EDT Routine [facility] [address] [place] [address] Vielka Romero, QUALITY CONTROL SUPERVISOR [address] [place] [address] documented as of this encounter Procedures Procedure Name Priority Date/Time Associated Diagnosis Comments PAP SMEAR Routine 11/05/2024 12:00 AM EDT documented in this encounter Results * Pap Smear (11/05/2024 12:00 AM EDT) Swab Cervical swab / Unknown Jack Woods DO LAB CYTOLOGY ORDERABLES Final Re sult EXTERNAL LAB documented in this encounter Visit Diagnoses Not on filedocumented in this encounter Care Teams Painter Interior Finish Relationship Specialty Start Date End Date Alberto Mayes MD [address] [place] [address] PCP - General 05/02/23 Paloma Vazquez DO [address] [place] [address] Referring Physician Obstetrics and Gynecology 04/25/23 12/02/24 documented as of this encounter
--- OUTSIDE RECORDS SUMMARY | 2025-01-29 07:55 | XMS_ITS | Encounter Summary ---
Author Organization [facility] Address [address] [place] [address] Care Team Providers Care Marker Machine Name Role Phone Alberto Mayes MD Primary Care Provider Encounter Details Date Type Department Care Team (Late Contact Info) Description 01/28/2025 Bamboo flowsheet [facility] [address] [place] [address] Jayla Levia PA [address] [facility] [place], [place] [address] Social History Tobacco Use Types Packs/Day Years [...] 9:50 AM EDT Routine [facility] [address] [place] [address] Vielka Romero, JAZZY [address] [place] [address] [place] [address] documented as of this encounter Visit Diagnoses Not on filedocumented in this encounter Care Teams Marker Machine Relationship Specialty Start Date End Date Alberto Mayes MD PCP - General 05/02/23 documented as of this encounter
--- OUTSIDE RECORDS SUMMARY | 2025-01-29 07:55 | XMS_ITS | Encounter Summary ---
Author Organization [facility] Address [address] [place] [address] Care Team Providers Care Retanner Name Role Phone Paloma Vazquez DO Unavailable Alberto Mayes MD Primary Care Provider Encounter Details Date Type Department Care Team (Late st Contact Info) Description 01/01/2024 Abstract [facility] [address] [facility] [place] [address] Jack Woods DO [address] [facility] [address], [facility] Social History Tobacco Use Types [...] 9:50 AM EDT Routine [facility] [address] [place] [address] Vielka Romero, JAZZY [address] [facility] [place] [address] documented as of this encounter Visit Diagnoses Not on filedocumented in this encounter Care Teams Retanner Relationship Specialty Start Date End Date Alberto Mayes MD [address] [place] [address] PCP - General 05/02/23 Paloma Vazquez DO [address] [place] [address] Referring Physician Obstetrics and Gynecology 04/25/23 12/02/24 documented as of this encounter
--- OUTSIDE RECORDS SUMMARY | 2025-01-29 07:55 | XMS_ITS | Encounter Summary ---
Author Organization [facility] Address [address] [place] [address] Care Team Providers Care Flamer Sealer Name Role Phone Alberto Mayes MD Primary Care Provider Encounter Details Date Type Department Care Team (Late st Contact Info) Description 01/27/2025 Clinisync Result Encounter [facility] External Department Unsolicited Jack Woods DO [address] [place] [address] Social History Tobacco Use Types Packs/Day [...] AM EDT Routine [facility] [facility] [address] [place] [address] Vielka Romero, CUSTOMER SUCCESS [employer] [address] [place] [address] documented as of this encounter Procedures Procedure Name Priority Date/Time Associated Diagnosis Comments GLUCOSE 1 HOUR Routine 01/27/2025 9:23 AM EDT documented in this encounter Results * (ABNORMAL) GLUCOSE 1 HOUR (01/27/2025 9:23 AM EDT) GLUCOSE 1 HOUR 150(H) <130 mg/dL [facility] 01/27/2025 9:23 AM EDT 01/27/2025 9:24 AM EDT Narrative [facility] - 01/27/2025 10:14 AM EDT us Jack Peggy DO LAB BLOOD ORDERABLES Final Resul t [facility] documented in this encounter Visit Diagnoses Not on filedocumented in this encounter Care Teams Flamer Sealer Relationship Specialty Start Date End Date Alberto Mayes MD PCP - General 05/02/23 documented as of this encounter
--- OUTSIDE RECORDS SUMMARY | 2025-01-29 07:55 | XMS_ITS | Encounter Summary ---
Author Organization [facility] Address [address] [place] [address] Care Team Providers Care Tool Crib Supervisor Name Role Phone Paloma Vazquez DO Unavailable Alberto Mayes MD Primary Care Provider Encounter Details Date Type Department Care Team (Late st Contact Info) Description 01/01/2024 Abstract [facility] [address] [place] [address] Jack Woods DO [address] [facility] [address] [place], [facility] Social History Tobacco Use Types Packs/Day Years [...] 9:50 AM EDT Routine [facility] [address] [place] [address] Vielka Romero, JAZZY [address] [facility] [place] [address] documented as of this encounter Visit Diagnoses Not on filedocumented in this encounter Care Teams Tool Crib Supervisor Relationship Specialty Start Date End Date Alberto Mayes MD [address] [place] [address] PCP - General 05/02/23 Paloma Vazquez DO [address] [place] [address] Referring Physician Obstetrics and Gynecology 04/25/23 12/02/24 documented as of this encounter
--- OUTSIDE RECORDS SUMMARY | 2025-01-29 07:55 | XMS_ITS | Clinical Summary ---
Author Organization [facility] Address [facility] [place] [address] Care Team Providers Care Hazardous Waste Remover Name Role Phone Alberto Mayes MD Primary Care Provider [phone] Allergies Active Allergy Reactions Criticality Noted Date [...] patient's age to complete this topic Insurance [employer]/PREF/HMO/PPO ANTHEM BLUE/PREF/HMO/PPO Care Teams Hazardous Waste Remover Relationship Specialty Start Date End Date Alberto Mayes MD [address] [place] [address] PCP - General Family Medicine 08/03/18
--- OUTSIDE RECORDS SUMMARY | 2025-01-29 07:55 | XMS_ITS | Clinical Summary ---
Author Organization [facility] Address [address] [place] [address] Care Team Providers Care Circulation Worker Name Role Phone Jack Woods DO Primary Care Provider [phone] Allergies Active Allergy Reactions Criticality Noted Date Comments Cephalexin Nausea And Vomiting Low 02/01/2019 Other Reaction(s): severe vomiting Other Reaction(s): Vomiting Ciprofloxacin GI intolerance Low 08/03/2018 PROJECTILE VOMITING Other Reaction(s): GI Intolerance Pt states projectile vomiting. Other Reaction(s): Vomiting PROJECTILE VOMITING Pt states projectile vomiting. Prednisone Nausea And Vomiting Low 02/01/2019 Other Reaction(s): severe vomiting Other Reaction(s): Vomiting Medications ondansetron (Zofran) 4 mg tablet Take 4 mg by mouth every 8 (eight) hours if needed. 01/16/2025 Active 115/iron/folic acid ( 19 ORAL) Take by mouth. Active Active Problems Problem Noted Date Diagnosed Date Palpitations 01/24/2025 Syncope and collapse 01/24/2025 26 weeks gestation of 01/24/2025 Comments Yes Encounters Date Type Department Care Team Description 01/24/2025 1:00 PM EDT Office Visit [facility] [address] [place] [address] Samreen Chen MD Syncope and collapse (Primary Dx); Palpitations; 26 weeks gestation of from Last 3 Months Family History Medical History Relation Name Comments Hypertension Father Relation Name Status Comments Father Alive Mother Alive Social History Tobacco Use Types Packs/Day Years [...] Heterosexual or Straight 01/13 12:52 PM EDT Last Filed Vital Signs Vital [...] Description 02/14/2025 2:20 PM EDT Office Visit [facility] [address] [place] [address] Samreen Chen MD [address] [place] [address] Health Maintenance Due Date Last Done Comments Depression Screening 2010 Varicella Vaccines (1 of 2 - 13+ 2-dose series) 2011 HPV Vaccines (1 - 3-dose series) 2013 Adult Tetanus 02/07/2020 COVID-19 Vaccine ( - 2023-2 5 season) 2025 Influenza Vaccine (#1) 2025 Pap Smear 11/06/2027 [...] patient's age to complete this topic Insurance [address] [place] [address] [facility] Care Teams Circulation Worker Relationship Specialty Start Date End Date Jack Woods DO [address] [place] [address] PCP - General Obstetrics and Gynecology 01/24/25
--- OUTSIDE RECORDS SUMMARY | 2025-01-29 07:55 | XMS_ITS | Encounter Summary ---
Author Organization [facility] Address [address] [place] [address] Care Team Providers Care Youth Pastor Name Role Phone Paloma Vazquez DO Unavailable Alberto Mayes MD Primary Care Provider Encounter Details Date Type Department Care Team (Late st Contact Info) Description 11/12/2024 Abstract [facility] [place] [id number] Jack Woods DO [address] [place], [place] [id number] Social History Tobacco Use Types Packs/Day Years [...] Routine [facility] [address] [place] [address] Vielka Romero, STEM MOUNTER [address] [place] [address] documented as of this encounter Visit Diagnoses Not on filedocumented in this encounter Care Teams Youth Pastor Relationship Specialty Start Date End Date Alberto Mayes MD [address] [place] [address] PCP - General 05/02/23 Paloma Vazquez DO [address] [place] [address] Referring Physician Obstetrics and Gynecology 04/25/23 12/02/24 documented as of this encounter
--- OUTSIDE RECORDS SUMMARY | 2025-01-29 07:55 | XMS_ITS | Encounter Summary ---
Author Organization [facility] Address [address] [place] [address] Care Team Providers Care Glass Smoother Name Role Phone Alberto Mayes MD Primary Care Provider Encounter Details Date Type Department Care Team (Late st Contact Info) Description 01/21/2025 Clinisync Result Encounter [facility] External Department Unsolicited Jayla Art PA [address] [place] [address] Social History Tobacco Use Types Packs/Day [...] Description 02/11/2025 9:50 AM EDT Routine [facility] [place] [facility] [address] [place] [address] Vielka Romero, JAZZY [address] [facility] [place] [address] documented as of this encounter Procedures Procedure Name Priority Date/Time Associated Diagnosis Comments CA ECHO DOPPLER COMPLETE 01/21/2025 9:58 AM EDT documented in this encounter Results * CA ECHO DOPPLER COMPLETE (01/21/2025 9:58 AM EDT) Anatomical Region Laterality Modality Other 01/21/2025 9:58 AM EDT Narrative 01/21/2025 9:59 [place] [address] Cardiology Report Signed Patient: KORIN MONTESINOS MR#: [id number] : 2000 Acct:[id number] Age/Sex: 24 / F ADM Date: 01/20/25 Loc: CARD Attending Dr: Jayla Art Ordering Physician: Jayla Art Date of Service: 01/20/25 Procedure(s): CA echo doppler complete Accession Number(s): [id number] cc: Jayla Art; Alberto Mayes M.D. Patient Name: KORIN MONTESINOS MR#: [id number] : 2000 Exam Date: 01/20/2025 Ordering Doctor: [...] Randy Marie M.D. Signed By: 01/21/2559 DD/ TD/TT: Merchandise Collector: Procedure Note Radiology, Radiologist, MD - 01/21/2025 [place] [address] Cardiology Report Signed Patient: KORIN MONTESINOS JMR#: [id number] : 2000Acct:[id number] Age/Sex: 24 / FADM Date: 01/20/25 Loc: CARD Attending Dr: Jayla Art Ordering Physician: Jayla Art Date of Service: 01/20/25 Procedure(s): CA echo doppler complete Accession Number(s): [id number] cc: Jayla Art; Alberto Mayes M.D. Patient Name: KORIN MONTESINOS MR#: [id number] : 2000 Exam Date: 01/20/2025 Ordering Doctor: [...] 09:58 Dictated By: Randy Marie M.D. Signed By:01/21/25 0959 DD/ 0958 TD/TT: Merchandise Collector: us Jayla [facility] Final Result documented in this encounter Visit Diagnoses Not on filedocumented in this encounter Care Teams Glass Smoother Relationship Specialty Start Date End Date Alberto Mayes MD PCP - General 05/02/23 documented as of this encounter
--- OUTSIDE RECORDS SUMMARY | 2025-01-29 07:55 | XMS_ITS | Encounter Summary ---
Author Organization [facility] Address [address] [place] [address] Care Team Providers Care Enrober Name Role Phone Paloma Vazquez DO Unavailable Alberto Mayes MD Primary Care Provider Encounter Details Date Type Department Care Team (Late st Contact Info) Description 12/08/2023 Abstract [facility] [address] [place] [address] Corie Cavanaugh LPN [address] [place] [id number] Social History Tobacco Use Types Packs/Day Years [...] 9:50 AM EDT Routine [facility] [address] [place] [address] Vielka Romero, JAZZY [address] [place] [address] documented as of this encounter Visit Diagnoses Not on filedocumented in this encounter Care Teams Enrober Relationship Specialty Start Date End Date Alberto Mayes MD [address] [place] [address] PCP - General 05/02/23 Paloma Vazquez DO [address] [place] [address] Referring Physician Obstetrics and Gynecology 04/25/23 12/02/24 documented as of this encounter
--- OUTSIDE RECORDS SUMMARY | 2025-01-29 07:57 | XMS_ITS | CCD ---
Author Organization [facility] Care Team Providers Care Hose Maker Name Role Phone KEYLA LEYVA Attending Unavailable Unavailable Primary Care Provider Unavailcasimiro Anton Rina Unavailable MD Zachary Mayes Primary Care Provider DO Paloma Vazquez Attending Provider MD Zachary Mayes Primary Care Provider MD Jackie Reardon Attending Provider DO Jack Woods Attending Provider Paloma Vazquez DO Unavailable Gerber NO, Alberto Primary Care Provider [facility], [facility] Provider Jack Woods DO Attending [...] Unavailable Alberto Mayes MD Primary Care Provider [phone] PEGGY, JACK R Referring Unavailable KAY BENTLEY Attending Unavailable PEGGY, JACK Referring Unavailable PEGGY, JACK Attending Unavailable PEGGY, JACK Attending Unavailable KAELYN, JAYLA Attending Unavailable PEGGY, JACK Attending Unavailable PEGGY, JACK Attending Unavailable PEGGY, JACK Attending Unavailable KAELYN, JAYLA Attending Unavailable PEGGY, JACK Attending Unavailable KAELYN, JAYLA Attending Unavailable Allergies Allergy Classification Reported Allergen(s) Allergy Type Date of Onset Reaction(s) Facility (20 sources) Cephalexin; Translations: [CEPHALEXIN] Drug Allergy 9 Nausea And Vomiting [place] (16 sources) predniSONE; Translations: [PREDNISONE] Drug Allergy 9 Nausea And Vomiting [place] (20 sources) Ciprofloxacin; Translations: [CIPROFLOXACIN] Drug Allergy 9 Vomiting [facility] (20 sources) Prednisone Propensity to adverse reactions 9 Nausea And Vomiting [facility] (1 source) Cephalexin Drug Allergy 0 [facility] Repository (1 source) predniSONE Drug Allergy 0 [facility] Repository Medications Current Medications Medication [...] 4 MG tablet Indications: Gastroesophageal reflux in ([facility]) , Nausea and vomiting during ([facility]) Take 1 tablet (4 mg) by mouth [...] needed for nausea or vomiting. Active PNV 17-eeru-mcqkdtjpdwai-dha 29 mg iron-1 mg -350 mg comb pack,tablet DR,capsule DR (2 sources) take 1 tablet by mouth in the morning PNV 89-iijv-yakwaujczhxj-dha 29 mg iron-1 mg -350 mg comb pack,tablet DR,capsule DR Take 1 tablet by mouth in the morning. Active polysaccharide iron complex 391 mg oral capsule (5 sources) Start: End: 026 take 1 capsule by mouth once daily iron polysaccharides (ProFe) 391.3 (180 Fe) MG capsule Indications: Second trimester ([facility]) Take 1 capsule (391.3 mg) by mouth Daily 30 capsule 6 01/07/2025 01/16/2025 Discontinued predniSONE 20 mg oral tablet (1 source) Start: take 1 tablet by mouth every twelve hours prednisone 20 MG 1 tablet Orally BID for 5 Mar, Active Vit w/Fe-Methylfol- FA (PNV PO) (20 sources) Vit w/F j-Vewdeuwyk-QN (PNV PO) Active Progesterone 200 MG supposit ory (4 sources) Start: 025 End: Progesterone 200 MG supposit ory Indications: [...] [Encounter for procreative management, unspecified] 04-10-2024 Episodic Diabetes mellitus without complication (2 sources) Abnormal glucose tolerance test; Translations: [Other abnormal glucose] 01-28-2025 Episodic Female infertility (2 sources) Female infertility; [...] 11-12-2024 Episodic Other and delivery including normal (16 sources) ; Translations: [Encounter for supervision of [...] [26 weeks gestation of ] Onset: Episodic Residual codes; unclassified (2 sources) Gestation period, 27 weeks; Translations: [27 weeks gestation of ] 01-28-2025 Episodic Syncope (4 sources) Syncope; Translations: [Syncope [...] Range Facility Urinalysis macro (dipstick) panel (U)on 01-28-2025 Bilirubin, UA Negative Negative - 4(70) +++ mg/dL [facility] Blood, UA Negative Negative - 50 Clarke/mcL [facility] Clarity, UA Clear [facility] re Color, UA Yellow [facility] e Glucose, UA Negative Negative - 1999(110) ++++ mg/dL [facility] Interpretation and review of laboratory results Abnormal [facility] Ketones, UA Negative Negative - 160(16) ++++ mg/dL [facility] Leukocytes, UA Positive Negative - 500+++ Kamaljit/mcL [facility] Comment on above: 3+ Nitrite, UA Negative Negative - Positive [facility] pH, UA 6.5 5 - 9 [facility] e Protein, UA Negative Negative - 1999(20) ++++ mg/dL [facility] Spec Grav, UA 1.01 1 - 1.03 [facility] Urobilinogen, UA 0.2 0.2 - 12 mg/dL [facility] GLUCOSE 1 HOURon 01-27-2025 Glucose [Mass/Vol] 150 mg/dL High NINF - 13 0 mg/dL [facility] Interpretation and review of laboratory results Abnormal [facility] Office Visiton 01-24-2025 Follow-up visit [id number] Daphney Al 2000 F Date Provider Department Center 01/24/2025 KAY VANEGAS [facility] Family History Problem Relation Age of Onset Hypertension Father Family Status - Relation Status Age at Mother Alive Father Alive Level of Service:21013 NE OFFICE/OUTPATIENT NEW LOW MDM 30 MINUTES Reason for Visit and Comments: New Patient [632] - Patient is here today as a new patient to establish care with cariology Syncope [506] Palpitations [773684] 26 weeks [Other] Normal [facility] CA ECHO DOPPLER COMPLETEon 0 01-21-2025 [place] [address] Cardiology Report Signed Patient: DAPHNEY AL MR#: [id number] : 2000 Acct:[id number] Age/Sex: 24 / F ADM Date: 01/20/25 Loc: CARD Attending Dr: Jayla Art Ordering Physician: Jayla Art Date of Service: 01/20/25 Procedure(s): CA echo doppler complete Accession Number(s): [id number] cc: Jayla Art; Alberto Mayes M.D. Patient Name: DAPHNEY AL MR#: [id number] : 2000 Exam Date: 01/20/2025 Ordering Doctor: [...] Randy Marie M.D. Signed By: 01/21/25958 DD/ TD/TT: Confidential Investigator: [facility] Radiology, Radiologist, - 01/21/2025 [place] [address] Cardiology Report Signed Patient: DAPHNEY AL MR#: [id number] : 2000 Acct:[id number] Age/Sex: 24 / F ADM Date: 01/20/25 Loc: CARD Attending Dr: Jayla Art Ordering Physician: Jayla Art Date of Service: 01/20/25 Procedure(s): CA echo doppler complete Accession Number(s): [id number] cc: Jayla Art; Alberto Mayes M.D. Patient Name: DAPHNEY AL MR#: [id number] : 2000 Exam Date: 01/20/2025 Ordering Doctor: [...] M.D. Signed By: 01/21/2559 DD/ 7 TD/TT: Confidential Investigator: [facility] Radiology Study observation (narrative) [facility] CA ECHO DOPPLER COMPLETEOrde red By: Radiologist Radiology on 01-21-2025 [facility] XYDOcar e Work Phone: Urinalysis macro (dipstick) panel (U)on 01-16-2025 Bilirubin, UA Negative Negative - 4(70) +++ mg/dL [facility] Blood, UA Positive Negative - 50 Clarke/mcL [facility] Healthcare Comment on above: 3+ Clarity, UA Clear [facility] re Color, UA Yellow [facility] Glucose, UA Negative Negative - 1999(110) ++++ mg/dL [facility] Interpretation and review of laboratory results Abnormal [facility] Ketones, UA Negative Negative - 160(16) ++++ mg/dL [facility] Leukocytes, UA Positive Negative - 500+++ Kamaljit/mcL [facility] Comment on above: 2+ Nitrite, UA Negative Negative - Positive [facility] pH, UA 6 5 - 9 [facility] Protein, UA Positive Negative - 1999(20) ++++ mg/dL [facility] Healthcare Spec Grav, UA 1.02 1 - 1.03 [facility] care Urobilinogen, UA 1.0 0.2 - 12 mg/dL [facility] Urinalysis macro (dipstick) panel (U)on 01-07-2025 Bilirubin, UA Negative Negative - 4(70) +++ mg/dL [facility] Blood, UA Negative Negative - 50 Clarke/mcL [facility] Healthcare Clarity, UA Clear [facility] re Color, UA Yellow [facility] Healthcar e Glucose, UA Negative Negative - 1999(110) ++++ mg/dL [facility] Interpretation and review of laboratory results Abnormal [facility] Ketones, UA Negative Negative - 160(16) ++++ mg/dL [facility] Leukocytes, UA Positive Negative - 500+++ Kamaljit/mcL [facility] Healthcare Comment on above: 3+ Nitrite, UA Negative Negative - Positive [facility] pH, UA 6.5 5 - 9 [facility] Protein, UA Negative Negative - 1999(20) ++++ mg/dL [facility] Healthcare Spec Grav, UA 1.01 1 - 1.03 [facility] care Urobilinogen, UA 0.2 0.2 - 12 mg/dL [facility] Urinalysis macro (dipstick) panel (U)on 12-31-2024 Bilirubin, UA Negative Negative - 4(70) +++ mg/dL [facility] Blood, UA Negative Negative - 50 Clarke/mcL [facility] Healthcare Clarity, UA Clear [facility] re Color, UA Yellow [facility] Glucose, UA Negative Negative - 1999(110) ++++ mg/dL [facility] Interpretation and review of laboratory results Abnormal [facility] Ketones, UA Negative Negative - 160(16) ++++ mg/dL [facility] Leukocytes, UA Negative Negative - 500+++ Kamaljit/mcL [facility] Nitrite, UA Negative Negative - Positive [facility] pH, UA 6 5 - 9 [facility] Healthcar e Protein, UA Negative Negative - 1999(20) ++++ mg/dL [facility] Spec Grav, UA 1.01 1 - 1.03 [facility] Urobilinogen, UA 1.0 0.2 - 12 mg/dL [facility] Urinalysis macro (dipstick) panel (U)on 12-03-2024 Bilirubin, UA Negative Negative - 4(70) +++ mg/dL [facility] Blood, UA Negative Negative - 50 Clarke/mcL [facility] Clarity, UA Clear [facility] re Color, UA [facility] Glucose, UA Negative Negative - 1999(110) ++++ mg/dL [facility] Interpretation and review of laboratory results Abnormal [facility] Ketones, UA Negative Negative - 160(16) ++++ mg/dL [facility] Leukocytes, UA Positive Negative - 500+++ Kamaljit/mcL [facility] Comment on above: Small Nitrite, UA Negative Negative - Positive [facility] pH, UA 7 5 - 9 [facility] Healthcar e Protein, UA Negative Negative - 1999(20) ++++ mg/dL [facility] Spec Grav, UA 1.01 1 - 1.03 [facility] Urobilinogen, UA 1.0 0.2 - 12 mg/dL [facility] Free Cell DNA (Non-Pro Medica Send Out)on 11-12-2024 [facility]OLOGY REQUEST FOR LAB CO RPon 11-12-2024 PATHOLOGY REQUEST FOR LAB GIA [facility] Comment on above: See report. Scanned copy available in EMR. SKIN TAG CHELSEY [facility] Healthcar e IGP,APTIMA HPV,AGE GDLNon AGE GDLN ACOG TESTING Note . [facility] Comment on above: TESTS RESULT FLAG UN ITS REF RANGE LAB Clinician Provided Cytology Information Source.............Cervix No. of containers..01 ThinPrep Vial Age Russell LIRA Nery... FLAG LEGEND: L-Low Normal,H-High Normal,LL-Alert Low,HH-Alert High <-Panic Low,>-Panic High,A-Abnormal,AA-Critical Abnormal Performed at: 01 =G [facility] [address] Gypsy Mtz MD, IGP, RFX APTIMA HPV ASCU Note . [facility] Comment on above: TESTS RESULT FLAG UN ITS REF RANGE LAB DIAGNOSIS: 02 NEGATIVE FOR INTRAEPITHELIAL LESION OR MALIGNANCY. THIS SPECIMEN WAS RESCREENED PART OF OUR PERSONNEL SUPERVISOR PROGRAM. Specimen adequacy: 02 Satisfactory for evaluation. Endocervical and/or squamous metaplastic cells (endocervical component) are present. Performed by: 02 Felicity Rosen, [facility] Hand (ASCP) QC reviewed by: 02 Esme Mahoney, [facility] Hand (ASCP) . 02 Note: Note 02 The [...] <-Panic Low,>-Panic High,A-Abnormal,AA-Critical Abnormal Performed at: [address] [address] Gypsy Mtz MD, Performed at: =[facility] [id number] Supervisor [employer]: Gypsy Mtz MD, Phone: [phone] Performed at: [address] [id number] Supervisor [employer]: Gypsy Mtz MD, Phone: [phone] SPATULA-ALONE CERVIX [facility] Healthcar e RECURRENT VAGINITIS (HTRX)on 11-06-2024 ATOPOBIUM VAGINAE 0 [facility] ATOPOBIUM VAGINAE Not detected [facility] BVAB 2,3 (BACTERIAL VAGINOSIS ASSOCIATED BACTERIA 2, 3); MOBILUNCUS SPP 0 [facility] BVAB 2,3 (BACTERIAL VAGINOSIS ASSOCIATED BACTERIA 2, 3); MOBILUNCUS SPP Not detected [facility] LINDA ALBICANS, PARAPSILOSIS, TROPICALIS 0 [facility] LINDA ALBICANS, PARAPSILOSIS, TROPICALIS Not detected [facility] LINDA GLABRATA 0 [facility] LINDA GLABRATA Not detected [facility] LINDA KRUSEI 0 [facility] LINDA KRUSEI Not detected [facility] CHLAMYDIA TRACHOMATIS 0 [facility] CHLAMYDIA TRACHOMATIS Not detected [facility] GARDNERELLA VAGINALIS 0 [facility] GARDNERELLA VAGINALIS Not detected [facility] MEGASPHAERA (TYPES 1, 2) 0 [facility] MEGASPHAERA (TYPES 1, 2) Not detected [facility] MYCOPLASMA GENITALIUM 0 [facility] MYCOPLASMA GENITALIUM Not detected [facility] NEISSERIA GONORRHOEAE 0 [facility] NEISSERIA GONORRHOEAE Not detected [facility] TRICHOMONAS VAGINALIS 0 [facility] TRICHOMONAS VAGINALIS Not detected [facility] Pathology Request for Lab Co rpon 11-05-2024 Pathology Request for Lab Gia Normal [facility] Comment on above: Order Comment: SKIN TAG Result Comment: See report. Scanned copy available in EMR. PERFORMED BY: [address] [place] [address] PATHOLOGIST STOCK HANDLER JOSUÉ VALENZUELA M.D. Performed By: #### P JOO #### [facility] , Urinalysis macro (dipstick) panel (U)on 11-05-2024 Bilirubin, UA Negative Negative - 4(70) +++ mg/dL [facility] Blood, UA Negative Negative - 50 Clarke/mcL [facility] Clarity, UA Clear [facility] re Color, UA Yellow [facility] Healthcar e Glucose, UA Negative Negative - 1999(110) ++++ mg/dL [facility] Interpretation and review of laboratory results Normal [facility] Ketones, UA Negative Negative - 160(16) ++++ mg/dL [facility] Leukocytes, UA Negative Negative - 500+++ Kamaljit/mcL [facility] Nitrite, UA Negative Negative - Positive [facility] pH, UA 5.5 5 - 9 [facility] Healthcar e Protein, UA Negative Negative - 1999(20) ++++ mg/dL [facility] Spec Grav, UA 1.02 1 - 1.03 [facility] Urobilinogen, UA 1.0 0.2 - 12 mg/dL [facility] Urinalysis macro (dipstick) panel (U)on 10-08-2024 Bilirubin, UA Negative Negative - 4(70) +++ mg/dL [facility] Blood, UA Negative Negative - 50 Clarke/mcL [facility] Clarity, UA Clear [facility] re Color, UA Yellow [facility] Healthcar e Glucose, UA Negative Negative - 1999(110) ++++ mg/dL [facility] Interpretation and review of laboratory results Abnormal [facility] Ketones, UA Negative Negative - 160(16) ++++ mg/dL [facility] Leukocytes, UA Trace Negative - 500+++ Kamaljit/mcL [facility] Nitrite, UA Negative Negative - Positive [facility] pH, UA 6 5 - 9 [facility] Protein, UA Negative Negative - 1999(20) ++++ mg/dL [facility] Spec Grav, UA 1.02 1 - 1.03 [facility] Urobilinogen, UA 0.2 0.2 - 12 mg/dL [facility] MLR HEMOGLOBIN A1Con 025 Glucose [Mass/Vol] 100 mg/dL [facility] HbA1c (Bld) [Mass fraction] 5.1 % 4.5 - 6.2 % [facility] Comment on above: ADA RECOMMENDED LIMI T 4.0 - 6.0 ADA THERAPEUTIC TARGET < 7.0 ACTION SUGGESTED > 7.0 [facility] Healthcar e HCG ( test) Ql (U)o n 09-19-2024 Interpretation and review of laboratory results Abnormal [facility] Preg Test, Ur Positive Negative [facility] US OB TRANSVAGINALon 025 [...] II, MD, PHD at 22-Sep-2024 08:21:31 PM [facility] Normal Not Available Comment on above: Order Comment: US OB TRANSVAGINAL No LMP recorded. Urinalysis macro (dipstick) panel (U)on 09-19-2024 Bilirubin, UA Negative Negative - 4(70) +++ mg/dL [facility] Blood, UA Negative Negative - 50 Clarke/mcL [facility] Clarity, UA Clear [facility] Color, UA Yellow [facility] e Glucose, UA Negative Negative - 1999(110) ++++ mg/dL [facility] Interpretation and review of laboratory results Normal [facility] Ketones, UA Negative Negative - 160(16) ++++ mg/dL [facility] Leukocytes, UA Negative Negative - 500+++ Kamaljit/mcL [facility] Nitrite, UA Negative Negative - Positive [facility] pH, UA 7 5 - 9 [facility] Protein, UA Negative Negative - 1999(20) ++++ mg/dL [facility] Spec Grav, UA 1.02 1 - 1.03 [facility] Urobilinogen, UA 0.2 0.2 - 12 mg/dL [facility] US OB TRANSVAGINALon 025 US OB [...] II, MD, PHD at 28-Aug-2024 11:25:24 PM [facility] Normal Not Available Comment on above: Order Comment: US OB TRANSVAGINAL No LMP recorded. [facility] PREG QUANT HCGon 025 HCG QUANTITATIVE 2576 mIU/mL [facility] Comment on above: 5-50 0.2-1 WEEK 50-500 1-2 WEEKS 100-5,000 2-3 WEEKS 500-10,000 3-4 WEEKS 1,000-50,000 4-5 WEEKS 10,000-100,000 5-6 WEEKS 15,000-200,000 6-8 WEEKS 10,000-100,000 2-3 MONTHS [facility] health e TBH PREG QUANT HCGon 025 HCG QUANTITATIVE 964 mIU/mL [facility] Comment on above: 5-50 0.2-1 WEEK 50-500 1-2 WEEKS 100-5,000 2-3 WEEKS 500-10,000 3-4 WEEKS 1,000-50,000 4-5 WEEKS 10,000-100,000 5-6 WEEKS 15,000-200,000 6-8 WEEKS 10,000-100,000 2-3 [facility] PREG QUANT HCGon 025 HCG QUANTITATIVE 513 mIU/mL [facility] Comment on above: 5-50 0.2-1 WEEK 50-500 1-2 WEEKS 100-5,000 2-3 WEEKS 500-10,000 3-4 WEEKS 1,000-50,000 4-5 WEEKS 10,000-100,000 5-6 WEEKS 15,000-200,000 6-8 WEEKS 10,000-100,000 2-3 [facility] PREG QUANT HCGon 025 HCG QUANTITATIVE 197 mIU/mL [facility] Hea lthcare Comment on above: 5-50 0.2-1 WEEK 50-500 1-2 WEEKS 100-5,000 2-3 WEEKS 500-10,000 3-4 WEEKS 1,000-50,000 4-5 WEEKS 10,000-100,000 5-6 WEEKS 15,000-200,000 6-8 WEEKS 10,000-100,000 2-3 [facility] PREG QUANT HCGon 025 HCG QUANTITATIVE 42 mIU/mL [facility] Hea lthcare Comment on above: 5-50 0.2-1 WEEK 50-500 1-2 WEEKS 100-5,000 2-3 WEEKS 500-10,000 3-4 WEEKS 1,000-50,000 4-5 WEEKS 10,000-100,000 5-6 WEEKS 15,000-200,000 6-8 WEEKS 10,000-100,000 2-3 MON[facility] PREG QUANT HCGon 025 HCG QUANTITATIVE 7 mIU/mL [facility] Comment on above: 5-50 0.2-1 WEEK 50-500 1-2 WEEKS 100-5,000 2-3 WEEKS 500-10,000 3-4 WEEKS 1,000-50,000 4-5 WEEKS 10,000-100,000 5-6 WEEKS 15,000-200,000 6-8 WEEKS 10,000-100,000 2-3 MONTHS [facility] ALL PROGESTERONEon 5 PROGESTERONE 26.8 ng/mL . [facility] are Comment on above: Follicular phase 0.1 - 0.9 Luteal phase 1.8 - 23.9 Ovulation phase 0.1 - 12.0 First trimester 11.0 - 44.3 Second trimester 25.4 - 83.3 Third trimester 58.7 - 214.0 Postmenopausal 0.0 - 0.1 Performed at: [place] [id number] Supervisor [employer]: Jordin Rao PhD, Phone: [phone] [facility] ALL PROGESTERONEon 4 PROGESTERONE 59.6 ng/mL . [facility] are Comment on above: Follicular phase 0.1 - 0.9 Luteal phase 1.8 - 23.9 Ovulation phase 0.1 - 12.0 First trimester 11.0 - 44.3 Second trimester 25.4 - 83.3 Third trimester 58.7 - 214.0 Postmenopausal 0.0 - 0.1 Performed at: [facility] netZentry[address] [id number] Supervisor [employer]: Jordin Rao PhD, Phone: [phone] [facility] TBH PREG QUANT HCGon 024 HCG QUANTITATIVE <1 mIU/mL [facility] Comment on above: 5-50 0.2-1 WEEK 50-500 1-2 WEEKS 100-5,000 2-3 WEEKS 500-10,000 3-4 WEEKS 1,000-50,000 4-5 WEEKS 10,000-100,000 5-6 WEEKS 15,000-200,000 6-8 WEEKS 10,000-100,000 2-3 MONTHS [facility] ALL PROGESTERONEon 4 PROGESTERONE 17.9 ng/mL . [facility] are Comment on above: Follicular phase 0.1 - 0.9 Luteal phase 1.8 - 23.9 Ovulation phase 0.1 - 12.0 First trimester 11.0 - 44.3 Second trimester 25.4 - 83.3 Third trimester 58.7 - 214.0 Postmenopausal 0.0 - 0.1 Performed at: [facility] [address] [id number] Supervisor [employer]: Jordin Rao PhD, Phone: [phone] [facility] MLR HEMOGLOBIN A1Con 024 Glucose [Mass/Vol] 88 mg/dL [facility] HbA1c (Bld) [Mass fraction] 4.7 % 4.5 - 6.2 % [facility] Healthcare Comment on above: ADA RECOMMENDED LIMI T 4.0 - 6.0 ADA THERAPEUTIC TARGET < 7.0 ACTION SUGGESTED > 7.0 [facility] Choriogonadotropin.beta subu nit [Units/volume] in Serum or PlasmaOrdered By: Jack Woods on 01-05-2024 HCG.beta subunit Qn 4.96 m[IU]/mL [facility] Comment on above: Approximate Approxim ate hCG Gestational Age Range (mIU/ml) (weeks)0.2-1 5-50 1-2 50-500 2-3 100-5,000 3-4 500-10,000 4-5 1,000-50,000 5-6 10,000-100,000 6-8 15,000-200,000 8-12 10,000-100,000 HCG,Quantitativeon 4 HCG,Quantitative 4.96 m[iU]/mL Normal [facility] Comment on above: Result Comment: Appr oximate Approximate hCG Gestational Age Range (mIU/ml) (weeks) 0.2-1 5-50 1-2 50-500 2-3 100-5,000 3-4 500-10,000 4-5 1,000-50,000 5-6 10,000-100,000 6-8 15,000-200,000 8-12 10,000-100,000 PERFORMED BY: [facility] [place] [address] PATHOLOGIST STOCK HANDLER TO ANAYA M.D. Performed By: #### H CGQNT #### [facility] [address] [place], [place] [id number] [facility] Choriogonadotropin.beta subu nit [Units/volume] in Serum or PlasmaOrdered By: Jack Woods on 12-28-2023 HCG.beta subunit Qn 108.32 m[IU]/mL [facility] Comment on above: Approximate Approxim ate hCG Gestational Age Range (mIU/ml) (weeks)0.2-1 5-50 1-2 50-500 2-3 100-5,000 3-4 500-10,000 4-5 1,000-50,000 5-6 10,000-100,000 6-8 15,000-200,000 8-12 10,000-100,000 HCG,Quantitativeon HCG,Quantitative 108.32 m[iU]/mL Normal [facility] Comment on above: Result Comment: Appr oximate Approximate hCG Gestational Age Range (mIU/ml) (weeks) 0.2-1 5-50 1-2 50-500 2-3 100-5,000 3-4 500-10,000 4-5 1,000-50,000 5-6 10,000-100,000 6-8 15,000-200,000 8-12 10,000-100,000 PERFORMED BY: [place] [address] PATHOLOGIST STOCK HANDLER TO ANAYA M.D. Performed By: #### H CGQNT #### [facility] [address] [place] [address] Choriogonadotropin.beta subu nit [Units/volume] in Serum or PlasmaOrdered By: Jack Woods on 12-22-2023 HCG.beta subunit Qn 1030.88 m[IU]/mL [facility] Comment on above: Approximate Approxim ate hCG Gestational Age Range (mIU/ml) (weeks)0.2-1 5-50 1-2 50-500 2-3 100-5,000 3-4 500-10,000 4-5 1,000-50,000 5-6 10,000-100,000 6-8 15,000-200,000 8-12 10,000-100,000 HCG,Quantitativeon 4 HCG,Quantitative 1030.88 m[iU]/mL Normal [facility] Comment on above: Result Comment: Appr oximate Approximate hCG Gestational Age Range (mIU/ml) (weeks) 0.2-1 5-50 1-2 50-500 2-3 100-5,000 3-4 500-10,000 4-5 1,000-50,000 5-6 10,000-100,000 6-8 15,000-200,000 8-12 10,000-100,000 PERFORMED BY: [place] [address] PATHOLOGIST STOCK HANDLER TO ANAYA M.D. Performed By: #### H CGQNT #### [address] [address] [facility] Choriogonadotropin.beta subu nit [Units/volume] in Serum or PlasmaOrdered By: Jack Woods on 12-20-2023 HCG.beta subunit Qn 988.06 m[IU]/mL [facility] Comment on above: Approximate Approxim ate hCG Gestational Age Range (mIU/ml) (weeks)0.2-1 5-50 1-2 50-500 2-3 100-5,000 3-4 500-10,000 4-5 1,000-50,000 5-6 10,000-100,000 6-8 15,000-200,000 8-12 10,000-100,000 HCG,Quantitativeon 4 HCG,Quantitative 988.06 m[iU]/mL Normal [facility] Comment on above: Result Comment: Appr oximate Approximate hCG Gestational Age Range (mIU/ml) (weeks) 0.2-1 5-50 1-2 50-500 2-3 100-5,000 3-4 500-10,000 4-5 1,000-50,000 5-6 10,000-100,000 6-8 15,000-200,000 8-12 10,000-100,000 PERFORMED BY: [address] [address] PATHOLOGIST STOCK HANDLER TO ANAYA M.D. Performed By: #### H CGQNT #### [facility] [address] US OB transvaginalon 024 US OB transvaginal [facility] [address] [place] [address] [place] [id number] Ultrasound Report Signed Patient: Daphney Al MR#: [id number] : 2000 Acct:[id number] Age/Sex: 23 / F ADM Date: 12/20/23 Loc: Room: Type: [facility] CL Attending Dr: Jack Woods DO Ordering Provider: Jack Woods Date of Service: 12/20/23 US/US OB <= 14 weeks fetus: N92.6 ([id number]) US/US OB transvaginal: N92.6 Copies to: Jack [...] Lisa Rojas M.D.12/20/2023 5:46 PM Dictation Location: [place] [address] Tech: Deb Real Transcribed By: FLETCHER 12/20/231745 Dictated By: Lisa Rojas MD 12/20/23 173 Signed By: 12/20/231745 Normal [facility] Choriogonadotropin.beta subu nit [Units/volume] in Serum or PlasmaOrdered By: Jack Woods on 12-09-2023 HCG.beta subunit Qn 295.86 m[IU]/mL [facility] Comment on above: Approximate Approxim ate hCG Gestational Age Range (mIU/ml) (weeks)0.2-1 5-50 1-2 50-500 2-3 100-5,000 3-4 500-10,000 4-5 1,000-50,000 5-6 10,000-100,000 6-8 15,000-200,000 8-12 10,000-100,000 HCG,Quantitativeon 4 HCG,Quantitative 295.86 m[iU]/mL Normal [facility] Comment on above: Result Comment: Appr oximate Approximate hCG Gestational Age Range (mIU/ml) (weeks) 0.2-1 5-50 1-2 50-500 2-3 100-5,000 3-4 500-10,000 4-5 1,000-50,000 5-6 10,000-100,000 6-8 15,000-200,000 8-12 10,000-100,000 PERFORMED BY: [place] [address] [place] [address] PATHOLOGIST STOCK HANDLER TO ANAYA M.D. Performed By: #### H CGQNT #### [facility] [address] [place], [place] [phone] [facility] Choriogonadotropin.beta subu nit [Units/volume] in Serum or PlasmaOrdered By: Jack Woods on 12-07-2023 HCG.beta subunit Qn 135.80 m[IU]/mL [facility] Comment on above: Approximate Approxim ate hCG Gestational Age Range (mIU/ml) (weeks)0.2-1 5-50 1-2 50-500 2-3 100-5,000 3-4 500-10,000 4-5 1,000-50,000 5-6 10,000-100,000 6-8 15,000-200,000 8-12 10,000-100,000 HCG,Quantitativeon HCG,Quantitative 135.80 m[iU]/mL Normal [facility] Comment on above: Result Comment: Appr oximate Approximate hCG Gestational Age Range (mIU/ml) (weeks) 0.2-1 5-50 1-2 50-500 2-3 100-5,000 3-4 500-10,000 4-5 1,000-50,000 5-6 10,000-100,000 6-8 15,000-200,000 8-12 10,000-100,000 PERFORMED BY: [place] [address] PATHOLOGIST STOCK HANDLER TO ANAYA M.D. Performed By: #### H CGQNT #### [facility] [address] [place] [address] Choriogonadotropin.beta subu nit [Units/volume] in Serum or PlasmaOrdered By: AMBAR Reardon on 12-05-2023 HCG.beta subunit Qn 69.85 m[IU]/mL [facility] [place] [facility] Comment on above: Approximate Approxim ate hCG Gestational Age Range (mIU/ml) (weeks)0.2-1 5-50 1-2 50-500 2-3 100-5,000 3-4 500-10,000 4-5 1,000-50,000 5-6 10,000-100,000 6-8 15,000-200,000 8-12 10,000-100,000 HCG,Quantitativeon HCG,Quantitative 69.85 m[iU]/mL Normal [facility] Comment on above: Result Comment: Appr oximate Approximate hCG Gestational Age Range (mIU/ml) (weeks) 0.2-1 5-50 1-2 50-500 2-3 100-5,000 3-4 500-10,000 4-5 1,000-50,000 5-6 10,000-100,000 6-8 15,000-200,000 8-12 10,000-100,000 PERFORMED BY: [place] [address] PATHOLOGIST STOCK HANDLER TO ANAYA M.D. Performed By: #### H CGQNT #### [address] Progesteroneon 12-05-2023 Progesterone 26.5 ng/mL Normal . [facility] Comment on above: Result Comment: Foll icular phase 0.1 - 0.9 Luteal phase 1.8 - 23.9 Ovulation phase 0.1 - 12.0 First trimester 11.0 - 44.3 Second trimester 25.4 - 83.3 Third trimester 58.7 - 214.0 Postmenopausal 0.0 - 0.1 Performed at: [facility] [id number] Supervisor [employer]: Jordin Rao PhD, Phone: [phone] PERFORMED BY: [place] [address] PATHOLOGIST STOCK HANDLER TO ANAAY M.D. Performed By: #### P JOO #### [facility] , Serum or plasma progesterone measurement (mass/volume)Ordered By: Jack Woods on 12-05-2023 Progesterone [Mass/Vol] 26.5 ng/mL . [facility] Comment on above: Follicular phase 0.1 - 0.9 Luteal phase 1.8 - 23.9 Ovulation phase 0.1 - 12.0 First trimester 11.0 - 44.3 Second trimester 25.4 - 83.3 Third trimester 58.7 - 214.0 Postmenopausal 0.0 - 0.1Performed at: [facility] [address] [id number] Director: Jordin Rao PhD, Phone: [phone] Choriogonadotropin.beta subu nit [Units/volume] in Serum or PlasmaOrdered By: AMBAR Reardon on 12-02-2023 HCG.beta subunit Qn 12.64 m[IU]/mL [facility] [place] [facility] Comment on above: Approximate Approxim ate hCG Gestational Age Range (mIU/ml) (weeks)0.2-1 5-50 1-2 50-500 2-3 100-5,000 3-4 500-10,000 4-5 1,000-50,000 5-6 10,000-100,000 6-8 15,000-200,000 8-12 10,000-100,000 HCG,Quantitativeon 4 HCG,Quantitative 12.64 m[iU]/mL Normal [facility] Comment on above: Result Comment: Appr oximate Approximate hCG Gestational Age Range (mIU/ml) (weeks) 0.2-1 5-50 1-2 50-500 2-3 100-5,000 3-4 500-10,000 4-5 1,000-50,000 5-6 10,000-100,000 6-8 15,000-200,000 8-12 10,000-100,000 PERFORMED BY: [place] [address] PATHOLOGIST STOCK HANDLER TO ANAYA M.D. Performed By: #### H CGQNT #### [address] Operative Reporton 3 Operative Report [id number] Normal [facility] Strep[facility] 03-21-2023 S. pyogenes Org specific cx Ql (Throat) Negative [facility] Other Quick Strep [facility] Other CBC Auto Differentialon 01-14 Basophils (Bld) [#/Vol] 0.00 10*3/uL [place] Basophils/100 WBC (Bld) 0 % 0 - 2 % [place] Differential Type YES [place] Eosinophils (Bld) [#/Vol] 0.20 10*3/uL [place] Eosinophils/100 WBC (Bld) 2 % 0 - 5 % [place] Erythrocyte distribution width (RBC) [Ratio] 12.6 % 12.1 - 15.2 % [place] Hematocrit (Bld) [Volume fraction] 39.8 % 36 - 46 % [place] Hemoglobin (Bld) [Mass/Vol] 13.8 g/dL 12 - 16 g/dL [place] Interpretation and review of laboratory results Abnormal [place] Lymphocytes (Bld) [#/Vol] 1.70 10*3/uL [place] Lymphocytes/100 WBC (Bld) 14 % Low 15 - 40 % [place] MCH (RBC) [Entitic mass] 31.5 pg 26 - 34 pg [place] MCHC (RBC) [Mass/Vol] 34.6 g/dL 31 - 37 g/dL [place] MCV (RBC) [Entitic vol] 91.2 fL 80 - 100 fL [place] Monocytes (Bld) [#/Vol] 0.60 10*3/uL [place] Monocytes/100 WBC (Bld) 5 % 4 - 8 % [place] Platelet mean volume (Bld) [Entitic vol] NOT REPORTED 6 - 12 fL [place] Platelets (Bld) [#/Vol] NOT REPORTED [place] Platelets (Bld) [#/Vol] 287 10*3/uL [place] RBC (Bld) [#/Vol] 4.37 10*6/uL 4 - 5.2 m/uL [place] RBC morphology finding Nom (Bld) NOT REPORTED [place] Segmented neutrophils/100 WBC (Bld) 79 % High 47 - 75 % [place] Segs Absolute 9.50 High [place] WBC (Bld) [#/Vol] 12.0 10*3/uL [place] WBC (Bld) [#/Vol] NOT REPORTED per 100 WBC [place] WBC Morphology NOT REPORTED [place] CBC with Diffon 02-01-2019 Abs. Basophil 0.00 k/uL Normal 0.0-0.2 [facility] Comment on above: Performed By: #### C P, CDP #### [facility] [address] [place] [address] Supervisor [employer]: Jonathan Chisholm MD Abs.Neutrophil (Seg) 9.50 k/uL High 2.5-7.0 [facility] Comment on above: Performed By: #### C P, CDP #### [facility] [address] [place] [phone] Supervisor [employer]: Jonathan Chisholm MD Auto Diff Performed YES Normal [facility] Comment on above: Performed By: #### C P, CDP #### [facility] [address] [place] [address] Supervisor [employer]: Jonathan Chisholm MD Basophils/100 WBC (Bld) 0 % Normal 0-2 [facility] Comment on above: Performed By: #### C P, CDP #### [facility] [address] [place] [phone] Supervisor [employer]: Jonathan Chisholm MD Eosinophils (Bld) [#/Vol] 0.20 10*3/uL Normal 0.0-0.4 [facility] Comment on above: Performed By: #### C P, CDP #### [facility] [address] [facility] [place] [address] Supervisor [employer]: Jonathan Chisholm MD Eosinophils/100 WBC (Bld) 2 % Normal 0-5 [facility] Comment on above: Performed By: #### C P, CDP #### [facility] [address] [place] [address] Supervisor [employer]: Jonathan Chisholm MD Erythrocyte distribution width (RBC) [Ratio] 12.6 % Normal 12.1-15.2 [facility] Comment on above: Performed By: #### C P, CDP #### [facility] [address] [place] [address] Supervisor [employer]: Jonathan Chisholm MD Hematocrit (Bld) [Volume fraction] 39.8 % Normal 36-46 [facility] Comment on above: Performed By: #### C P, CDP #### [facility] [address] [place] [address] Supervisor [employer]: Jonathan Chisholm MD Hemoglobin (Bld) [Mass/Vol] 13.8 g/dL Normal 12.0-16.0 [facility] Comment on above: Performed By: #### C P, CDP #### [facility] [address] [place] [address] Supervisor [employer]: Jonathan Chisholm MD Lymphocytes (Bld) [#/Vol] 1.70 10*3/uL Normal 1.2-5.2 [facility] Comment on above: Performed By: #### C P, CDP #### [facility] [address] [place] [address] Supervisor [employer]: Jonathan Chisholm MD Lymphocytes/100 WBC (Bld) 14 % Low 15-40 [facility] Comment on above: Performed By: #### C P, CDP #### [facility] [address] [place] [address] Supervisor [employer]: Jonathan Chisholm MD MCH (RBC) [Entitic mass] 31.5 pg Normal 26-34 [facility] Comment on above: Performed By: #### C P, CDP #### [facility] [address] [place] [phone] Supervisor [employer]: Jonathan Chisholm MD MCHC (RBC) [Mass/Vol] 34.6 g/dL Normal 31-37 [facility] Comment on above: Performed By: #### C P, CDP #### [facility] [address] [place] [address] [phone] Supervisor [employer]: Jonathan Chisholm MD MCV (RBC) [Entitic vol] 91.2 fL Normal 80-100 [facility] Comment on above: Performed By: #### C P, CDP #### [facility] [address] [place] [phone] ([phone] Supervisor [employer]: Jonathan Chisholm MD Monocytes (Bld) [#/Vol] 0.60 10*3/uL Normal 0.0-1.0 [facility] Comment on above: Performed By: #### C P, CDP #### [facility] [address] [place] [address] Supervisor [employer]: Jonathan Chisholm MD Monocytes/100 WBC (Bld) 5 % Normal 4-8 [facility] Comment on above: Performed By: #### C P, CDP #### [facility] [address] [place] [address] ([phone]) Supervisor [employer]: Jonathan Chisholm MD Neutrophil (Seg) 79 % High 47-75 [facility] Comment on above: Performed By: #### C P, CDP #### [facility] [address] [place] [address] ([phone] Supervisor [employer]: Jonathan Chisholm MD Platelets (Bld) [#/Vol] 287 10*3/uL Normal 140-450 [facility] Comment on above: Performed By: #### C P, CDP #### [facility] [address] [place] [address] [phone] Supervisor [employer]: Jonathan Chisholm MD RBC (Bld) [#/Vol] 4.37 10*6/uL Normal 4.0-5.2 [facility] Comment on above: Performed By: #### C P, CDP #### [facility] [address] [place] [address] Supervisor [employer]: Jonathan Chisholm MD WBC (Bld) [#/Vol] 12.0 10*3/uL Normal 4.5-13.5 [facility] Comment on above: Performed By: #### C P, CDP #### [facility] [address] [place] [address] Supervisor [employer]: Jonathan Chisholm MD Abs.Imm.Granulocyte NOT REPORTED Normal 0.00-0.30 [facility] Comment on above: Performed By: #### C P, CDP #### [facility] [address] [place] [address] Supervisor [employer]: Jonathan Chisholm MD Immature granulocytes (Bld) [#/Vol] NOT REPORTED Normal 0 [facility] Comment on above: Performed By: #### C P, CDP #### [facility] [address] [place] [address] Supervisor [employer]: Jonathan Chisholm MD NRBC Automated NOT REPORTED Normal [facility] Comment on above: Performed By: #### C P, CDP #### [facility] [address] [place] [address] Supervisor [employer]: Jonathan Chisholm MD Platelet mean volume (Bld) [Entitic vol] NOT REPORTED Normal 6.0-12.0 [facility] Comment on above: Performed By: #### C P, CDP #### [facility] [address] [place] [address] Supervisor [employer]: Jonathan Chisholm MD Platelets (Bld) [#/Vol] NOT REPORTED Normal [facility] Comment on above: Performed By: #### C P, CDP #### [facility] [address] [place] [address] Supervisor [employer]: Jonathan Chisholm MD RBC morphology finding Nom (Bld) NOT REPORTED Normal [facility] Comment on above: Performed By: #### C P, CDP #### [facility] [address] [place] [address] Supervisor [employer]: Jonathan Chisholm MD WBC Morphology NOT REPORTED Normal [facility] Comment on above: Performed By: #### C P, CDP #### [facility] [address] [place] [address] Supervisor [employer]: Jonathan Chisholm MD Comp Metabolic Profon 2018 (cont.) Normal [facility] Comment on above: Result Comment: Aver age GFR for 20-29 years old: 116 mL/min/1.73sq m Chronic Kidney Disease: <60 mL/min/1.73sq m Kidney failure: <15 mL/min/1.73sq m eGFR calculated using average adult body mass. Additional eGFR calculator available at: http://www.Ininal.Mobile Action/multiple_crcl_2012.htm Performed By: #### C P, CDP #### [facility] [address] [place] [address] Supervisor [employer]: Jonathan Chisholm MD Albumin [Mass/Vol] 4.1 g/dL Normal 3.5-5.2 [facility] Comment on above: Performed By: #### C P, CDP #### [facility] [address] [place] [address] Supervisor [employer]: Jonathan Chisholm MD Alkaline Phos 63 U/L Normal 35-104 [facility] Comment on above: Performed By: #### C P, CDP #### [facility] [address] [place] [address] Supervisor [employer]: Jonathan Chisholm MD ALT [Catalytic activity/Vol] 8 U/L Normal 5-33 [facility] Comment on above: Performed By: #### C P, CDP #### [facility] [address] [place] [address] Supervisor [employer]: Jonathan Chisholm MD Anion gap [Moles/Vol] 12 mmol/L Normal 9-17 [facility] Comment on above: Performed By: #### C P, CDP #### [facility] [address] [place], [place] [phone] Supervisor [employer]: Jonathan Chisholm MD AST [Catalytic activity/Vol] 13 U/L Normal <32 [facility] Comment on above: Performed By: #### C P, CDP #### [facility] [address] [place], [place] [phone] Supervisor [employer]: Jonathan Chisholm MD Bilirubin Ql (U) 0.40 mg/dL Normal 0.30-1.20 [facility] Comment on above: Performed By: #### C P, CDP #### [facility] [address] [place], [place] [phone] Supervisor [employer]: Jonathan Chisholm MD BUN/CRE Ratio 13 Normal 9-20 [facility] Comment on above: Performed By: #### C P, CDP #### [facility] [address] [place] [address] Supervisor [employer]: Jonathan Chisholm MD Calcium [Mass/Vol] 9.1 mg/dL Normal 8.6-10.4 [facility] Comment on above: Performed By: #### C P, CDP #### [facility] [address] [place], [place] [phone] Supervisor [employer]: Jonathan Chisholm MD Chloride [Moles/Vol] 103 mmol/L Normal 98-107 [facility] Comment on above: Performed By: #### C P, CDP #### [facility] [address] [place], [place] [phone] Supervisor [employer]: Jonathan Chisholm MD CO2 [Moles/Vol] 24 mmol/L Normal 20-31 [facility] Comment on above: Performed By: #### C P, CDP #### [facility] [address] [place], [place] [phone] Supervisor [employer]: Jonathan Chisholm MD Creatinine [Mass/Vol] 0.61 mg/dL Normal 0.50-0.90 [facility] Comment on above: Performed By: #### C P, CDP #### [facility] [address] [place], [place] [phone] Supervisor [employer]: Jonathan Chisholm MD GFR, Amer >60 Normal >60 [facility] Comment on above: Performed By: #### C P, CDP #### [facility] [address] [place] [address] Supervisor [employer]: Jonathan Chisholm MD GFR,non Amer >60 Normal >60 [facility] Comment on above: Performed By: #### C P, CDP #### [facility] [address] [place], [place] [phone] Supervisor [employer]: Jonathan Chisholm MD Glucose [Mass/Vol] 94 mg/dL Normal 70-99 [facility] Comment on above: Performed By: #### C P, CDP #### [facility] [address] [place], [place] [phone] Supervisor [employer]: Jonathan Chisholm MD Potassium [Moles/Vol] 3.8 mmol/L Normal 3.7-5.3 [facility] Comment on above: Performed By: #### C P, CDP #### [facility] [address] [place], [place] [phone] Supervisor [employer]: Jonathan Chisholm MD Protein [Mass/Vol] 7.1 g/dL Normal 6.4-8.3 [facility] Comment on above: Performed By: #### C P, CDP #### [facility] [address] [place], [place] [phone] Supervisor [employer]: Jonathan Chisholm MD Sodium [Moles/Vol] 139 mmol/L Normal 135-144 [facility] Comment on above: Performed By: #### C P, CDP #### [facility] [address] [place] [address] Supervisor [employer]: Jonathan Chisholm MD Urea nitrogen [Mass/Vol] 8 mg/dL Normal 6-20 [facility] Comment on above: Performed By: #### C P, CDP #### [facility] [address] [place] [address] Supervisor [employer]: Jonathan Chisholm MD Albumin/Globulin [Mass ratio] NOT REPORTED Normal 1.0-2.5 [facility] Comment on above: Performed By: #### C P, CDP #### [facility] [address] [place] [address] Supervisor [employer]: Jonathan Chisholm MD Staging: NOT REPORTED Normal [facility] Comment on above: Performed By: #### C P, CDP #### [facility] [address] [place] [address] Supervisor [employer]: Jonathan Chisholm MD Comprehensive Metabolic Pane [facility] 02-01-2019 Albumin [Mass/Vol] 4.1 g/dL 3.5 - 5.2 g/dL [place] Albumin/Globulin [Mass ratio] NOT REPORTED [place] ALP [Catalytic activity/Vol] 63 U/L 35 - 104 U/L [place] ALT [Catalytic activity/Vol] 8 U/L 5 - 33 U/L [place] Anion gap [Moles/Vol] 12 mmol/L 9 - 17 mmol/L [place] AST [Catalytic activity/Vol] 13 U/L <32 [place] Bilirubin Ql (U) 0.40 mg/dL 0.3 - 1.2 mg/dL [place] Bun/Cre Ratio 13 [place] Calcium [Mass/Vol] 9.1 mg/dL 8.6 - 10. 4 mg/dL [place] Chloride [Moles/Vol] 103 mmol/L 98 - 10 7 mmol/L [place] CO2 [Moles/Vol] 24 mmol/L 20 - 31 mmol/L [place] Creatinine [Mass/Vol] 0.61 mg/dL 0.5 - 0.9 mg/dL [place] GFR >60 >60 mL/min [place] GFR Non- >60 >60 mL/min [place] GFR/1.73 sq M predicted among non-blacks MDRD (S/P/Bld) [Vol rate/Area] NOT REPORTED [place] GFR/1.73 sq M predicted among non-blacks MDRD (S/P/Bld) [Vol rate/Area] [place] Comment on above: Average GFR for 20-2 9 years old: 116 mL/min/1.73sq m Chronic Kidney Disease: <60 mL/min/1.73sq m Kidney failure: <15 mL/min/1.73sq m eGFR calculated using average adult body mass. Additional eGFR calculator available at: http://www.Investorio.de/multiple_crcl_2012.htm Glucose [Mass/Vol] 94 mg/dL 70 - 99 mg/dL [place] Potassium [Moles/Vol] 3.8 mmol/L 3.7 - 5.3 mmol/L [place] Protein [Mass/Vol] 7.1 g/dL 6.4 - 8.3 g/dL [place] Sodium [Moles/Vol] 139 mmol/L 135 - 144 mmol/L [place] Urea nitrogen [Mass/Vol] 8 mg/dL 6 - 20 mg/dL [place] HCG, ,Urineon 02-01 Beta HCG ( test) Ql (U) Negative Normal NEG [facility] Comment on above: Performed By: #### U MICAO, UHCG, UA #### [facility] [address] [place] [address] Supervisor [employer]: Jonathan Chishlom MD Microscopic Urinalysison Amorphous, UA NOT REPORTED None [place] Bacteria, UA 3+ Abnormal None [place] Casts UA NOT REPORTED /LPF [place] Crystals UA NOT REPORTED None /HPF [place] Epithelial Cells UA 20 TO 50 /HPF [place] Interpretation and review of laboratory results Abnormal [place] Mucus, UA 2+ Abnormal None [place] Other Observations UA NOT REPORTED NOT REQ. [place] RBC (U) [#/Vol] 2 TO 5 [place] Renal Epithelial, Urine NOT REPORTED 0 /HPF [place] Trichomonas, UA NOT REPORTED None [place] WBC, UA 2 TO 5 0 /HPF [place] Yeast, UA NOT REPORTED None [place] - [place] Otheron 02-01-2019 Immature granulocytes (Bld) [#/Vol] NOT REPORTED [place] , Urineon 9 Beta HCG ( test) Ql (U) Negative NEGATIVE [place] Urinalysison 02-01-2019 Bilirubin Urine Negative NEGATIVE [place] Color, UA YELLOW YELLOW [place] Glucose, Ur Negative NEGATIVE [place] Interpretation and review of laboratory results Abnormal [place] Ketones Ql (U) TRACE Abnormal NEGATIVE [place] Leukocyte esterase Test strip Ql (U) Negative NEGATIVE [place] Nitrite, Urine Negative NEGATIVE [place] pH, UA 6.0 [place] Protein (U) [Mass/Vol] 1+ Abnormal NEGATIVE [place] Specific [place], UA 1.020 [place], [place] Turbidity UA CLEAR CLEAR [place] Urinalysis [place] Urine Hgb 3+ Abnormal NEGATIVE [place] Urobilinogen, Urine Normal Normal [place] Urinalysis, Routineon 2018 Acetoacetic Acid,Ur TRACE Abnormal NEG [facility] Comment on above: Performed By: #### U PREMA [facility], UA #### [facility] [address] [place] [address] [employer]visor [employer]: Jonathan Chisholm MD Bilirubin, SemiQt,Ur Negative Normal NEG [facility] Comment on above: Performed By: #### U MICAO, [facility], UA #### [facility] [address] [place] [address] Supervisor [employer]: Jonathan Chisholm MD Color (U) YELLOW Normal YEL [facility] Comment on above: Performed By: #### U MICAO, [facility], UA #### [facility] [address] [place] [address] Supervisor [employer]: Jonathan Chisholm MD Comment [facility] Comment on above: Performed By: #### U MICAO, [facility], UA #### [facility] [address] [place] [address] Supervisor [employer]: Jonathan Chisholm MD Glucose Ql (U) Negative Normal [facility] Comment on above: Performed By: #### U MICAO, [facility], UA #### [facility] [address] [place] [address] Supervisor [employer]: Jonathan Chisholm MD Hemoglobin, Ur 3+ Abnormal NEG [facility] Comment on above: Performed By: #### U MICAO, [facility], UA #### [facility] [address] [place] [address] Supervisor [employer]: Jonathan Chisholm MD Leukocyte esterase Test strip Ql (U) Negative Normal NEG [facility] Comment on above: Performed By: #### U MICAO, [facility], UA #### [facility] [address] [place] [address] Supervisor [employer]: Jonathan Chisholm MD Nitrite,Ur Negative Normal [facility] Comment on above: Performed By: #### U MICAO, [facility], [facility] #### [facility] [address] [place] [address] Supervisor [employer]: Jonathan Chisholm MD pH (U) 6.0 [pH] Normal 5.0-8.0 [facility] Comment on above: Performed By: #### [place], [facility], UA #### [facility] [address] [place] [address] Supervisor [employer]: Jonathan Chisholm MD Protein Ql (U) 1+ Abnormal NEG [facility] Comment on above: Performed By: #### U [place], [facility], UA #### [facility] [address] [place] [address] Supervisor [employer]: Jonathan Chisholm MD Specific gravity (U) [Rel density] 1.020 Normal 1.005-1.030 [facility] Comment on above: Performed By: #### U [place] [facility], UA #### [facility] [address] [place] [address] Supervisor [employer]: Jonathan Chisholm MD Turbidity CLEAR Normal CLEAR [facility] Comment on above: Performed By: #### U [place], [facility], UA #### [facility] [address] [place] [address] Supervisor [employer]: Jonathan Chisholm MD Urobilinogen,Ur Normal Normal NORM [facility] Comment on above: Performed By: #### U PREMA, [facility], UA #### [facility] [address] [place] [address] Supervisor [employer]: Jonathan Chisholm MD Urinalysis,Microon 9 ----- Normal [facility] Comment on above: Performed By: #### U PREMA, [facility], UA #### [facility] [address] [place] [address] Supervisor [employer]: Jonathan Chisholm MD Bacteria LM.HPF (Urine sed) [#/Area] 3+ Abnormal [facility] Comment on above: Performed By: #### U JAZMINE, [facility], UA #### [facility] [address] [place] [address] Supervisor [employer]: Jonathan Chisholm MD Epithelial cells LM.HPF (Urine sed) [#/Area] 20 TO 50 Normal [facility] Comment on above: Performed By: #### U [facility], [facility], UA #### [facility] [address] [place] [address] Supervisor [employer]: Jonathan Chisholm MD Mucus Strands 2+ Abnormal [facility] Comment on above: Performed By: #### U PREMA [facility], UA #### [facility] [address] [place] [address] Supervisor [employer]: Jonathan Chisholm MD RBC (U) [#/Vol] 2 TO 5 Normal 0-2 [facility] Comment on above: Performed By: #### U [facility], UA #### [facility] [address] [place] [address] Supervisor [employer]: Jonathan Chisholm MD WBC (U) [#/Vol] 2 TO 5 Normal 0 [facility] Comment on above: Performed By: #### U JAZMINE [facility], UA #### [facility] [address] [place] [address] Supervisor [employer]: Jonathan Chisholm MD Amorphous sediment LM Ql (Urine sed) NOT REPORTED Normal [facility] Comment on above: Performed By: #### U [facility], [facility], UA #### [facility] [address] [place] [address] Supervisor [employer]: Jonathan Chisholm MD Casts LM.LPF (Urine sed) [#/Area] NOT REPORTED Normal [facility] Comment on above: Performed By: #### U [facility], [facility] #### [facility] [address] [place] [address] Supervisor [employer]: Jonathan Chisholm MD Crystals LM Nom (Urine sed) NOT REPORTED Normal NONE [facility] Comment on above: Performed By: #### U JAZMINEO, [facility], UA #### [facility] [address] [place] [address] Supervisor [employer]: Jonathan Chisholm MD Epithelial, Renal NOT REPORTED Normal 0 [facility] Comment on above: Performed By: #### U JAZMINEO, [facility], UA #### [facility] [address] [place] [address] Supervisor [employer]: Jonathan Chisholm MD Other Observations NOT REPORTED Normal NREQ [facility] Comment on above: Performed By: #### U [place], [facility], UA #### [facility] [address] [place] [address] Supervisor [employer]: Jonathan Chisholm MD Trichomonas NOT REPORTED Normal NONE [facility] Comment on above: Performed By: #### U PREMA, [facility], UA #### [facility] [address] [place] [address] Supervisor [employer]: Jonathan Chisholm MD Yeast LM Ql (Urine sed) NOT REPORTED Normal NONE [facility] Comment on above: Performed By: #### U JAZMINEO, [facility], UA #### [facility] [address] [place] [address] Supervisor [employer]: Jonathan Chisholm MD Vital Signs Date Time Vital Sign Value Performing Clinician Facility 01-28-2025 08:54-0400 Body mass index (BMI) [Ratio] 30.22 kg/m2 Jayla DA SILVA Work Phone: [facility] 01-28-2025 08:54-0400 Body weight 84.94 kg Jayla DA SILVA Work Phone: [facility] 01-28-2025 08:54-0400 Diastolic blood pressure 70 mm[Hg] Jayla DA SILVA Work Phone: [facility] 01-28-2025 08:54-0400 Systolic blood pressure 112 mm[Hg] Jayla DA SILVA Work Phone: [facility] 01-16-2025 09:38-0400 Body mass index (BMI) [Ratio] 29.67 kg/m2 Jack Peggy DO Work Phone: [facility] 01-16-2025 09:38-0400 Body weight 83.37 kg Jack Peggy DO Work Phone: [facility] 01-16-2025 09:38-0400 Diastolic blood pressure 78 mm[Hg] Jack Peggy DO Work Phone: [facility] 01-16-2025 09:38-0400 Systolic blood pressure 120 mm[Hg] Jack Peggy DO Work Phone: [facility] 12-31-2024 14:30-0400 Body mass index (BMI) [Ratio] 29.83 kg/m2 Jack Peggy DO Work Phone: [facility] 12-31-2024 14:30-0400 Body weight 83.83 kg Jack Peggy DO Work Phone: [facility] 12-31-2024 14:30-0400 Diastolic blood pressure 62 mm[Hg] Jack Peggy DO Work Phone: [facility] 12-31-2024 14:30-0400 Systolic blood pressure 112 mm[Hg] Jack Peggy DO Work Phone: [facility] 12-03-2024 13:26-0400 Body mass index (BMI) [Ratio] 28.29 kg/m2 Jayla DA SILVA Work Phone: [facility] 12-03-2024 13:26-0400 Body weight 79.49 kg Jayla DA SILVA Work Phone: [facility] 12-03-2024 13:26-0400 Diastolic blood pressure 78 mm[Hg] Jayla DA SILVA Work Phone: [facility] 12-03-2024 13:26-0400 Systolic blood pressure 100 mm[Hg] Jayla DA SILVA Work Phone: [facility] 11-12-2024 08:47-0400 Body height 167.6 cm Guadalupe Peres MD Work Phone: [facility] 11-12-2024 08:47-0400 Body mass index (BMI) [Ratio] 27.48 kg/m2 Guadalupe Peres MD Work Phone: [facility] 11-12-2024 08:47-0400 Body weight 77.2 kg Guadalupe Peres MD Work Phone: [facility] 11-12-2024 08:47-0400 Diastolic blood pressure 73 mm[Hg] Guadalupe Peres MD Work Phone: [facility] 11-12-2024 08:47-0400 Heart rate 90 /min Guadalupe Peres MD Work Phone: [facility] 11-12-2024 08:47-0400 Systolic blood pressure 105 mm[Hg] Guadalupe Peres MD Work Phone: [facility] 11-05-2024 14:10-0400 Body mass index (BMI) [Ratio] 27.02 kg/m2 Jack Peggy DO Work Phone: [facility] 11-05-2024 14:10-0400 Body weight 75.93 kg Jack Peggy DO Work Phone: [facility] 11-05-2024 14:10-0400 Diastolic blood pressure 68 mm[Hg] Jack Peggy DO Work Phone: [facility] 11-05-2024 14:10-0400 Systolic blood pressure 106 mm[Hg] Jack Peggy DO Work Phone: [facility] 10-08-2024 14:35-0400 Body mass index (BMI) [Ratio] 27.41 kg/m2 Jack Peggy DO Work Phone: [facility] 10-08-2024 14:35-0400 Body weight 77.02 kg Jack Peggy DO Work Phone: [facility] 10-08-2024 14:35-0400 Diastolic blood pressure 72 mm[Hg] Jack Peggy DO Work Phone: [facility] 10-08-2024 14:35-0400 Systolic blood pressure 100 mm[Hg] Jack Peggy DO Work Phone: [facility] 09-19-2024 13:34-0400 Body mass index (BMI) [Ratio] 26.95 kg/m2 Nom Nurse [facility] 09-19-2024 13:34-0400 Body weight 75.75 kg [facility] Nurse [facility] 09-19-2024 13:34-0400 Diastolic blood pressure 84 mm[Hg] [facility] Nurse [facility] 09-19-2024 13:34-0400 Systolic blood pressure 108 mm[Hg] [facility] Nurse [facility] 04-10-2024 11:05-0500 Body mass index (BMI) [Ratio] 27.6 kg/m2 Jakc Peggy DO Work Phone: [facility] 04-10-2024 11:05-0500 Body weight 77.56 kg Jack Peggy DO Work Phone: [facility] 04-10-2024 11:05-0500 Diastolic blood pressure 72 mm[Hg] Jack Peggy DO Work Phone: [facility] 04-10-2024 11:05-0500 Systolic blood pressure 114 mm[Hg] Jack Peggy DO Work Phone: [facility] 2024 13:52-0400 Body height 167.6 cm Jack Peggy DO Work Phone: [facility] 2024 13:52-0400 Body mass index (BMI) [Ratio] 26.6 kg/m2 Jack Peggy DO Work Phone: [facility] 2024 13:52-0400 Body weight 74.75 kg Jack Peggy DO Work Phone: [facility] 2024 13:52-0400 Diastolic blood pressure 56 mm[Hg] Jack Peggy DO Work Phone: [facility] 2024 13:52-0400 Systolic blood pressure 100 mm[Hg] Jack Peggy DO Work Phone: [facility] 03-21-2023 18:10-0500 Body height 167.64 cm Rina Anton Other [facility] Other 03-21-2023 18:10-0500 Body mass index (BMI) [Ratio] 26.95 kg/m2 Rina Anton Other [facility] Other 03-21-2023 18:10-0500 Body temperature 98.9 [degF] Rina Anton Other [facility] Other 03-21-2023 18:10-0500 Body weight 75.75 kg Rina Anton Other [facility] Other 03-21-2023 18:10-0500 Respiratory rate 18 /min Rina Anton Other [facility] Other 03-21-2023 18:10-0500 SaO2% (BldA) [Mass fraction] 97 % Rina Anton Other [facility] Other 02-01-2019 06:41-0400 BP Diastolic 64 mm[Hg] [facility] [place] 02-01-2019 06:41-0400 BP Systolic 107 mm[Hg] [facility] [place] 02-01-2019 06:41-0400 Pulse (Heart Rate) 64 /min [facility] [place] 02-01-2019 04:30-0400 Body Temperature 98.01 [degF] [facility] 02-01-2019 04:30-0400 Body weight 58.92 kg [facility] , [place] 02-01-2019 04:30-0400 Pulse Oximetry 100 % [facility] 02-01-2019 04:30-0400 Respiratory Rate 18 /min [facility] Encounters Encounter Date Encounter Type Care Provider Facility Start: 01-28-2025 End: 01-28-2025 Bamboo flowsheet Jayla DA SILVA Work Phone: [facility] Start: 01-28-2025 End: 01-28-2025 Bamboo flowsheet Jayla DA SILVA Work Phone: [facility] Start: 01-28-2025 End: 01-28-2025 flow sheet Jayla DA SILVA Work Phone: [facility] Comment on above: Second trimester pre gnancy ([facility]); 27 weeks gestation of ([facility]); Elevated glucose tolerance test Start: 01-28-2025 End: 01-28-2025 ambulatory JAYLA ART Not Available Start: 01-27-2025 End: 01-27-2025 Clinisync Result Encounter Jack Peggy DO Work Phone: [facility] Unsolicited Start: 01-27-2025 End: 01-27-2025 Clinisync Result Encounter Jack Peggy DO Work Phone: [facility] Unsolicited Start: 01-24-2025 End: 01-24-2025 ambulatory [facility] Start: 01-21-2025 End: 01-21-2025 Clinisync Result Encounter Jayla DA SILVA Work Phone: [facility] External [facility] Unsolicited Start: 01-21-2025 End: 01-21-2025 Clinisync Result Encounter Jayla DA SILVA Work Phone: [facility] Unsolicited Start: 01-16-2025 End: 01-16-2025 Bamboo flowsheet Jack Peggy DO Work Phone: [facility] [place] [facility] Start: 01-16-2025 End: 01-16-2025 Bamboo flowsheet Jack Peggy DO Work Phone: [facility] [place] [facility] Start: 01-16-2025 End: 01-16-2025 flow sheet Jack Peggy DO Work Phone: [facility] [place] [facility] Comment on above: 25 weeks gestation o f ([facility]); Second trimester ([facility]); Palpitations; Syncope, unspecified syncope type; Gastroesophageal reflux in ([facility]) Start: 01-16-2025 End: 01-16-2025 ambulatory JACK PEGGY Not Available Start: 01-07-2025 End: 01-07-2025 Bamboo flowsheet Jayla DA SILVA Work Phone: [facility] [place] [facility] Start: 01-07-2025 End: 01-07-2025 Bamboo flowsheet Jayla DA SILVA Work Phone: [facility] [place] [facility] Start: 01-07-2025 End: 01-07-2025 flow sheet Jayla DA SILVA Work Phone: [facility] [facility] Comment on above: Second trimester pre gnancy ([facility]); 23 weeks gestation of ([facility]); Palpitations; Tachycardia Start: 01-07-2025 End: 01-07-2025 ambulatory JAYLA KAELYN Not Available Start: 12-31-2024 End: 12-31-2024 flow sheet Jack Peggy DO Work Phone: [facility] Comment on above: Second trimester pre gnancy ([facility]); 23 weeks gestation of ([facility]); Diabetes mellitus screening Start: 12-31-2024 End: 12-31-2024 ambulatory JACK PEGGY Not Available Start: 12-31-2024 End: 12-31-2024 Bamboo flowsheet Jack Peggy DO Work Phone: [facility] [place] [facility] Start: 12-31-2024 End: 12-31-2024 Bamboo flowsheet Jack Peggy DO Work Phone: [facility] [facility] Start: 12-10-2024 End: 12-10-[address] [facility] Start: 12-03-2024 End: 12-03-2024 Bamboo flowsheet Jayla DA SILVA Work Phone: [facility] Start: 12-03-2024 End: 12-03-2024 Bamboo flowsheet Jayla DA SILVA Work Phone: [facility] Start: 12-03-2024 End: 12-03-2024 flow sheet Jayla DA SILVA Work Phone: [facility] Comment on above: Second trimester pre gnancy ([facility]); 19 weeks gestation of ([facility]) Start: 12-03-2024 End: 12-03-2024 ambulatory JAYLA ART Not Available Start: 11-12-2024 End: 11-12-2024 Office consultation new/estab patient 60 min Guadalupe Peres MD Work Phone: [facility] Comment on above: Adnexal mass (Primar y Dx); 16 weeks gestation of ; Uterine fibroids affecting in second trimester; Localized swelling of right lower extremity Start: 11-12-2024 End: 11-12-2024 Orders Only Jayla Avina LPN [facility] Comment on above: Adnexal mass (Primar y [...] exam with routine gynecological exam; Second trimester ([facility]); 15 weeks gestation of ([facility]); Vaginal discharge; STD exposure Start: 11-05-2024 End: 11-05-2024 ambulatory Jack Peggy [facility] Work Phone: Start: 11-05-2024 End: 11-05-2024 Departed Referred Jack Peggy -[facility] [place] [facility] Start: 10-08-2024 End: 10-08-2024 flow [...] encounter procedure MD Zachary Mayes Work Phone: [facility] [place] Work Phone: Start: 01-05-2024 End: 01-05-2024 ambulatory MD Zachary Mayes Work Phone: [facility] Work Phone: Start: 12-28-2023 End: 12-28-2023 Patient encounter procedure MD Zachary Mayes Work Phone: [facility] [place] Work Phone: Start: 12-28-2023 End: 12-28-2023 ambulatory MD Zachary Mayes Work Phone: [facility] Work Phone: Start: 12-22-2023 End: 12-22-2023 Patient encounter procedure MD Zachary Mayes Work Phone: [facility] [place] Work Phone: Start: 12-22-2023 End: 12-22-2023 ambulatory MD Zachary Mayes Work Phone: [facility] Work Phone: Start: 12-20-2023 End: 12-20-2023 Patient encounter procedure MD Zachary Mayes Work Phone: [facility] [place] Work Phone: Start: 12-20-2023 End: 12-20-2023 ambulatory MD Zachary Mayes Work Phone: [facility] Work Phone: Start: 12-09-2023 End: 12-09-2023 Patient encounter procedure MD Zachary Mayes Work Phone: [facility] [place] Work Phone: Start: 12-09-2023 End: 12-09-2023 ambulatory MD Zachary Mayes Work Phone: [facility] Work Phone: Start: 12-07-2023 End: 12-07-2023 Patient encounter procedure MD Zachary Mayes Work Phone: [facility] [place] Work Phone: Start: 12-07-2023 End: 12-07-2023 ambulatory MD Zachary Mayes Work Phone: [facility] Work Phone: Start: 12-05-2023 End: 12-05-2023 Patient encounter procedure MD Zachary Mayes Work Phone: [facility] [place] Work Phone: Start: 12-05-2023 End: 12-05-2023 ambulatory MD Zachary Mayes Work Phone: [facility] Work Phone: Start: 12-02-2023 End: 12-02-2023 ambulatory MD Zachary Mayes Work Phone: [facility] Work Phone: Start: 12-02-2023 End: 12-02-2023 Patient encounter procedure MD Zachary Mayes Work Phone: [facility] [place] Work Phone: Start: 05-01-2023 End: 05-01-2023 Admission to same day surgery center MD Zachary Mayes Work Phone: [facility] [place] Work Phone: Start: 05-01-2023 End: 05-01-2023 ambulatory MD Zachary Mayes Work Phone: [facility] Work Phone: Start: 03-21-2023 End: 03-21-2023 ambulatory Rina Anton Other [facility] Other Start: 03-21-2023 Office outpatient ne w 30 minutes Rina Anton [facility] Start: 02-01-2019 End: 02-01-2019 Emergency department [facility] Start: 02-01-2019 End: 02-01-2019 [facility] Work Phone: [facility] ED Comment on above: Abdominal pain, righ t lower quadrant (Primary Dx); History of ovarian cyst Procedures Date Procedure Procedure Detail Performing Clinician Start: 01-28-2025 Urnls dip stick/tabl et rgnt non-auto w/o micrscp Jack Peggy DO Work Phone: Start: 01-27-2025 GLUCOSE 1 HOUR Jack Fa zio DO Work Phone: Start: 01-21-2025 CA ECHO DOPPLER COMPLETE Jayla [...] Adult BMI Screening Adult BMI Screen ing [facility] Start: 11-12-2025 Tobacco Screening Tobacco Screening [facility] Start: 02-11-2025 End: 02-11-2025 Patient encounter procedure 02/11/2025 9:50 AM EDT Routine [facility] [address] [place] [address] Vielka Romero, FOOD PREPARER [address] [place] [id number] [facility] Start: 01-28-2025 End: 01-28-2026 Measurement of glucose 3 hours after glucose challenge for glucose tolerance test Glucose tolerance, 3 hours Lab Routine Elevated glucose tolerance test Expected: 01/28/2025 (Approximate), Expires: 01/28/2026 [facility]: Comment on above: Expected: 01/28/2025 (Approximate), Expires: 01/28/2026 Start: 01-28-2025 End: 01-28-2025 Patient encounter procedure [facility] Comment on above: Arrived Start: 01-21-2025 End: 01-21-2025 Patient encounter procedure 01/21/2025 8:40 AM EDT Office Visit [facility] [address] [place] [id number] Jack Woods, DO [address] [place] [address] [facility] Start: 01-16-2025 End: 01-16-2025 Patient encounter procedure 01/16/2025 9:20 AM EDT Office Visit [facility] [address] [place] [address] Jack Woods, DO [address] [place] [address] Arrived [facility] Comment on above: Arrived Start: 01-13-2025 Influenza vaccination Influenza Vacc ine [facility] Start: 01-07-2025 End: 01-07-2026 12 lead ECG ECG 12 lead unit performed ECG Routine Palpitations Expected: 01/07/2025 (Approximate), Expires: 01/07/2026 [facility] Work Phone: Comment on above: Expected: 01/07/2025 (Approximate), Expires: 01/07/2026 Start: 01-07-2025 End: 01-07-2027 Echocardiogram 2D complete Echocardiogram 2D complete Echocardiography Routine Palpitations Tachycardia Expected: 01/07/2025 (Approximate), Expires: 01/07/2027 [facility] Comment on above: Expected: 01/07/2025 (Approximate), Expires: 01/07/2027 Start: 01-07-2025 End: 01-07-2025 Patient encounter procedure 01/07/2025 1:50 PM EDT Office Visit RIMMA GALDAMEZ [address] [place] [place] [id number] Jayla Art PA [address] [place], [place] [id number] Arrived RIMMA GALDAMEZ Comment on above: Arrived Start: 12-31-2024 End: 12-31-2024 Patient encounter procedure 12/31/2024 2:10 PM EDT Routine [facility] [place] [facility] [address] [place] [phone] Jack Woods DO [address] [place] [address] Arrived RIMMA GALDAMEZ Comment on above: Arrived Start: 12-31-2024 End: 12-31-2025 CBC panel - Blood by Automated count CBC Lab Routine Diabetes mellitus screening Expected: 12/31/2024 (Approximate), Expires: 12/31/2025 [facility] Work Phone: Comment on above: Expected: 12/31/2024 (Approximate), Expires: 12/31/2025 Start: 12-31-2024 End: 12-31-2025 Measurement of glucose 1 hour after glucose challenge for glucose tolerance test Glucose tolerance, 1 hour Lab Routine Diabetes mellitus screening Expected: 12/31/2024 (Approximate), Expires: 12/31/2025 [facility] Comment on above: Expected: 12/31/2024 (Approximate), Expires: 12/31/2025 Start: 12-10-2024 End: 12-10-2024 Patient encounter procedure 12/10/2024 1:30 PM EDT Appointment [facility] [place] [address] [place] [address] [facility] [place] Start: 12-03-2024 End: 12-03-2024 Patient encounter procedure [facility] Comment on above: Second [...] right lower extremity Expected: 11/12/2024, Expires: 11/12/2025 [facility] Phone: Comment on above: Expected: 11/12/2024 , Expires: 11/12/2025 Start: 11-12-2024 End: 11-12-2025 US.doppler Lower extremity vein - right Vas venous duplex insufficiency lwr rt Vascular Ultrasound Routine Localized swelling of right lower extremity Expected: 11/12/2024, Expires: 11/12/2025 [facility] Comment on above: Expected: 11/12/2024 , Expires: 11/12/2025 Start: 11-05-2024 End: 05-07-2025 Alpha fetoprotein, maternal Alpha fetoprotein, maternal Lab Routine Second trimester ([facility]CC) 15 weeks gestation of ([facility]) Expected: 11/05/2024 (Approximate), Expires: 05/07/2025 [facility] Comment on above: Expected: 11/05/2024 (Approximate), Expires: 05/07/2025 Start: 11-05-2024 End: 11-05-2024 Patient encounter procedure [facility] Comment on above: Arrived Start: 11-05-2024 [facility] Start: 10-08-2024 End: 10-08-2024 Patient [...] 1:30 PM EDT Initial [facility] [address] [place], [place] [address] [address] [facility] Start: 09-19-2024 End: 09-19-2024 Professional / ancillary services management 09/19/2024 1:00 PM EDT Ancillary Procedure [facility] [place] [address] [place] [address] [facility] Start: 08-28-2024 End: 08-28-2024 Professional / ancillary services management 08/28/2024 8:30 AM EDT Ancillary Procedure [facility] [address] [place], [place] [address], [place] [phone] [facility] Start: 04-10-2024 End: 04-10-2025 Antimullerian hormone (AMH) Antimullerian hormone (AMH) Lab Routine Hormone disorder Expected: 04/10/2024 (Approximate), Expires: 04/10/2025 [facility] Work Phone: Comment on above: Expected: 04/10/2024 (Approximate), Expires: 04/10/2025 Start: 04-10-2024 End: 04-10-2024 Patient encounter procedure 04/10/2024 11:10 AM EST Office Visit [facility] [address] [place] [address] aJck Woods, [address] [place] [address] Arrived [facility] Comment on above: Arrived Start: 2024 End: 2024 Patient encounter procedure 2024 1:20 PM EDT Office Visit [facility] [address] [place] [phone] Jack Woods, [address] [place] [address] [facility] Start: 12-24-2019 DTaP,Tdap and Td Vaccines (2 - Td or Tdap) DTaP,Tdap and Td Vaccines (2 - Td or Tdap) [facility] Start: 2019 Screening for malign ant neoplasm of cervix Pap Smear [facility] Start: 01-13-2019 Influenza vaccination Flu vaccine (# 1) [place], [place] Start: 02-07-2016 Adult BMI Follow Up Plan Adult BMI F ollow Up Plan [facility] Start: 2010 Depression Screening Depression Scre [facility] Bacteria identified in Urine by Culture Urine culture Microbiology Routine Missed menses Ordered: 09/19/2024 [facility] Comment on above: Ordered: 09/19/2024 CBC W Auto Different ial panel - Blood CBC and differential Lab Routine Missed menses , unspecified gestational age Ordered: 09/19/2024 [facility] Comment on above: Ordered: 09/19/2024 CHLAMYDIA TRACHOMATI S (GENITO/STI) CHLAMYDIA TRACHOMATIS (GENITO/STI) Lab Routine STD exposure Ordered: 11/05/2024 [facility] Comment on above: Ordered: 11/05/2024 Cytology Cervical or vaginal smear or scraping study Pap Smear Pathology and Cytology Routine Well woman exam with routine gynecological exam Ordered: 11/05/2024 [facility] Comment on above: Ordered: 11/05/2024 Hemoglobin A1c/Hemoglobin.total in Blood Hemoglobin A1c Lab Routine Missed menses , unspecified gestational age Ordered: 09/19/2024 [facility] Comment on above: Ordered: 09/19/2024 Hepatitis B virus surface Ag [Presence] in Serum or Plasma by Immunoassay Hepatitis B surface antigen Lab Routine Missed menses , unspecified gestational age Ordered: 09/19/2024 [facility] Comment on above: Ordered: 09/19/2024 Hepatitis C virus Ab [Presence] in Serum or Plasma by Immunoassay Hepatitis C antibody Lab Routine Missed menses , unspecified gestational age Ordered: 09/19/2024 [facility] Comment on above: Ordered: 09/19/2024 HIV-1/HIV-2 antigen/antibody combination immunoassay HIV-1 and HIV-2 antibodies Lab Routine Missed menses , unspecified gestational age Ordered: 09/19/2024 [facility] Comment on above: Ordered: 09/19/2024 Neisseria gonorrhoea e DNA [Presence] in Unspecified specimen by DARIUS with probe detection Neisseria gonorrhea DNA probe, direct Lab Routine STD exposure Ordered: 11/05/2024 [facility] Comment on above: Ordered: 11/05/2024 Progesterone [Mass/volume] in Serum or Plasma [facility] Reagin Ab [Presence] in Serum by RPR RPR Lab Routine Missed menses , unspecified gestational age Ordered: 09/19/2024 [facility] Comment on above: Ordered: 09/19/2024 Rubella antibody, IgG Rubella an tibody, IgG Lab Routine Missed menses , unspecified gestational age Ordered: 09/19/2024 [facility] Comment on above: Ordered: 09/19/2024 SURESWAB(R) ADVANCED VAGINITIS PLUS, TMA SURESWAB(R) ADVANCED VAGINITIS PLUS, TMA Pathology and Cytology Routine Vaginal discharge Ordered: 11/05/2024 [facility] Work Phone: Comment on above: Ordered: 11/05/2024 Immunizations Immunization Date Immunization Notes Care Provider [facility] 03-18-2017 influenza virus vaccine, unspecified formulation Guadalupe Peres MD Work Phone: [facility] Payers Date Payer Category Payer Blue Cross Blue Shie Managed Care - PPO ANTHEM Member Subscriber Plan / Payer (Effective 2024-Present) Name: Daphney Al Relation to Subscriber: Self Name: Jaguar, Katarina Payer ID: [id number] (NAIC) Type: Not on file Address: [address] [place] [id number] 2024 Blue Cross Blue Shield BCBS Memb er Subscriber Plan / Payer (Effective 2024-Present) Name: Daphney Al Relation to Subscriber: Self Name: Daphney Al Payer ID: Not on file Type: Not on file Address: [address] [place] [id number] 2024 Unknown [id number] 2023 Self-pay [id number] 2023 Private Health Insurance [id number] 2023 Private Health Insurance [id number] 2014 Unknown [id number] 2014 Unknown BCBS BCBS - [place] P PO xxxxxxxxxxxx 2014-Present [address] [place] [address] xxxxxxxxxxxx [id number] 1998 Unknown [id number] 2.16.840.1.297243.3.579.2 .174 1998 Unknown [id number] 2.16.840.1.384327.3.579.2 .1286 1998 Unknown [id number] 2.16840.1.710255.3.579.2 .1286 1998 Unknown [id number] 2.16840.1.223515.3.579.2 .1285 1998 Unknown [id number] 2.16840.1.570481.3.579.2 .1258 1998 Unknown [id number] 2.16840.1.285571.3.579.2 .1258 1998 Unknown [id number] 2.16840.1.607858.3.579.2 .1258 1998 Unknown [id number] 2.16840.1.131515.3.579.2 .1258 1998 Unknown [id number] 2.16840.1.324089.3.579.2 .1258 1998 Unknown [id number] 2.840.1.760206.3.579.2 .1258 1998 Unknown [id number] 2.16840.1.717050.3.579.2 .1258 1998 Unknown [id number] 2.0.1.761231.3.579.2 .1258 1998 Unknown [id number] 2.0.1.054012.3.579.2 .1258 1998 Unknown [id number] 2.840.1.894711.3.579.2 .1258 1998 Unknown [id number] 2.16840.1.374084.3.579.2 .1258 1998 Unknown [id number] 2.16840.1.097468.3.579.2 .1258 Unknown [facility] [id number] Unknown [place] BC/BS [id number] Unknown [id number] 2.16.840.1.122288.3.579.2 .531 Unknown [id number] 2.16.840.1.699015.3.579.2 .531 Unknown [id number] 2.16.840.1.572952.3.579.2 .531 Unknown [id number] 2.16.840.1.218832.3.579.2 .531 Unknown [id number] 2.16.840.1.761561.3.579.2 .531 Unknown [id number] 2.16.840.1.600491.3.579.2 .531 Unknown [id number] 2.16.840.1.664627.3.579.2 .531 Unknown [id number] 2.16.840.1.489831.3.579.2 .531 Unknown [id number] 2.16.840.1.078458.3.579.2 .531 Social History Date Type Detail Facility Start: 02-01-2019 End: 04-28-2023 Tobacco smoking status NHIS Never smoker [facility] Start: 02-01-2019 End: 2024 Alcohol intake Not Currently [place], [place] Start: 1998 Sex Assigned At Not on file [place], [place] Start: 1998 Sex Assigned At Female [facility] Start: 2024 End: 01-16-2025 Alcoholic beverage intake Lifetime non-drinker (finding) [facility] Start: 04-28-2023 End: 2024 History of Social function [facility] Start: 04-28-2023 Alcohol Comment Caffeine intak e: 3-4 cups per day [facility] Start: 08-06-2024 [facility] Start: 12-26-2022 Sex Female (finding) [facility] Within the past 12 months we worried whether our food would run out before we got money to buy more. Never True [facility] Clinical Notes 03-21-2023 to 01-28-2025 REKHA Ott - 01/28/2025 8:40 AM Inessa Kearneyr, BRIANA - 01/16/2025 9:20 AM REKHA Corral - 01/07/2025 1:50 PM ANKITEdpeter Shanice, BRIANA - 12/31/2024 2:10 PM REKHA Corral - 12/03/2024 1:30 PM EDT Note Date & Type Note Facility 01-28-2025 History of Present illness Narrative Reason for Appointment: Patient ID: Daphney Al is a 24 y.o. female who presents for Routine Visit Patient presents today for Return OB appointment. MEDICATIONS Current Outpatient Medications Medication Instructions aspirin 81 MG oral suspension ondansetron (ZOFRAN) 4 mg, Oral, Every 6 hours PRN, Take 1 tablet by mouth every 6 hours as needed for nausea. Vit w/Je-Kcxzkkurm-YG (PNV PO) ALLERGIES Allergies Allergen Reactions Cephalexin [...] Vitals: Estimated body mass index is 30.22 kg/m as calculated from the following: Height [...] of: REKHA Ott documented in this encounter [facility] 01-24-2025 Note [facility] Note Reason for cardiology [...] negative for PE or any abnormalities. Her transportation director ordered echo which came back normal. A [...] cannot go b (more content not included)... [facility] 01-16-2025 History of Present illness Narrative [...] 6 hours as needed for nausea. Vit w/Pe-Ijarjtjml-EH (PNV PO) ALLERGIES Allergies Allergen Reactions Cephalexin [...] nursing note reviewed. Exam conducted with a electronic systems technician present. Vitals: Estimated body mass index is 29.67 kg/m as calculated from the following: Height as of 02/06/24: 5' 6 . Weight as of this encounter: 183 lb 12.8 oz. BP: 120/78 Patient's last menstrual period was 07/23/2024. ASSESSMENT & PLAN ICD-10-CM 1. 25 weeks gestation of ([facility]) Z3A.25 POCT urinalysis dipstick manually resulted 2. Second trimester ([facility]) Z34.92 POCT urinalysis dipstick manually resulted 3. Palpitations R00.2 4. Syncope, unspecified syncope type R55 5. Gastroesophageal reflux in ([facility]) O99.619 K21.9 Patient presents today for a routine obstetrics appointment. Patient is currently 25w2d with a Estimated Date of Delivery: 04/29/25. Patient had spells where she passed out. Patient to have Cardiac Consult hopefully within the next week. Referral will be made today to Cardiology at [facility]. Patient has a EKG scheduled for Monday at 1pm. Patient voiced that she sees stars and then gets dizzy. Advised to increase protein and to remain off work until cleared by Cardiology. Patient to return to clinic 1 week. Documented by Kelley Sepulveda LPN on behalf of: Jack Woods DO documented in this encounter [facility] 01-07-2025 History of Present illness Narrative [...] 6 hours as needed for nausea. Vit w/Ks-Bglcubunp-HF (PNV PO) pyridoxine (VITAMIN B-6) 25 mg, [...] vulgaris Endometriosis History of medical problems Miscarriage ([facility]) Ovarian cyst HISTORY PAST MEDICAL HISTORY SOCIAL [...] MG capsule 2. 23 weeks gestation of ([facility]) Z3A.23 3. Palpitations R00.2 ECG 12 [...] of: REKHA Ott documented in this encounter [facility] 12-31-2024 History of Present illness Narrative [...] 6 hours as needed for nausea. Vit w/Ot-Dxnnaiqxp-DG (PNV PO) pyridoxine (VITAMIN B-6) 25 mg, [...] nursing note reviewed. Exam conducted with a electronic systems technician present. Vitals: Estimated body mass index is 29.83 kg/m as calculated from the following: Height as of 02/06/24: 5' 6 . Weight as of this encounter: 184 lb 12.8 oz. BP: 112/62 Patient's last menstrual period was 07/23/2024. ASSESSMENT & PLAN ICD-10-CM 1. Second trimester ([facility]) Z34.92 POCT urinalysis dipstick manually resulted 2. 23 weeks gestation of ([facility]) Z3A.23 POCT urinalysis dipstick manually resulted [...] week for routine OB appointment. Documented by Lsia Prasad LPN on behalf of: Jack Woods DO documented in this encounter [facility] 12-03-2024 History of Present illness Narrative [...] 6 hours as needed for nausea. Vit w/Av-Gyiymlaof-MX (PNV PO) pyridoxine (VITAMIN B-6) 25 mg, [...] manually resulted 2. 19 weeks gestation of ([facility]) Z3A.19 Return OB: Patient presents today [...] of: REKHA Ott documented in this encounter [facility] 11-12-2024 History of Present illness Narrative [...] nausea or vomiting., Disp: , Rfl: PNV 77-kxta-ynzahlrwiejs-dha 29 mg iron-1 mg -350 mg comb [...] (2019) [facility]- [facility] :principles and practice [place] : Hall/ElseRecordSled Sonographic diagnosis of ovarian torsion: accuracy and predictive factors. Monica R, Jeff N, Zion N, Sohan-Chelsea G, Bright I. J Ultrasound Med. 2010;30(9):1205-10. Adnexal masses in : An updated review. Olivia AM, Dorie I, Adelaide KJ, Dwsc-Ws-Iyiyd H, A Tanja MN. [facility] J Med. 2017 Feb-Apr;7(4):153-157. doi: 10.4103/aj.[id number]_[id number]_17. PMID: [id number] Uterine fibroids, affecting I reviewed the uterine [...] and evaluation of bilateral adnexal masses, through [facility] Recommend repeat growth ultrasound in the 3rd trimester, through primary OB, given known uterine fibroid Anticipate term vaginal delivery at local hospital Precautions regarding shortness of breath and chest pain were reviewed with the patient today DISPOSITION: At this point the patient is in complete care of her transportation director. Thank you for allowing me to participate in the care of Daphney Al. If there any questions please do not hesitate to contact us. Guadalupe Peres MD [facility]- [facility] [place] [id number] [facility] [address] [place] [phone] This document was created with [employer] technology. Though I make every effort to review the dictation as it is transcribed, on occasion the spoken word can be misinterpreted by the technology leading to inappropriate words, phrases, or sentences. This note is addressed to the requesting provider as a consultation for clinical guidance. Specific medical abbreviations are occasionally used and those are generally approved by the [place]?Board of?Obstetrics and?Gynecology?as well as?Graham chan abbreviations. The above plan of care was based solely on the diagnoses for which a consultation was requested. ?More frequent testing may be indicated based on her other medical/obstetrical conditions. The management of other or medical conditions is beyond the scope of requested consultation and will continue to be followed by the primary transportation director or primary care provider. Note to patient: The Century Cures Act makes medical notes like [...] risk Have you been seen here at [facility] in a previous ? No Recent ER visits or hospitalizations? No Bring blood sugar log or meter with you today? (Please bring them with you for every visit at [facility]) N/A Flu vaccine (Mar-July)? N/A Any concerns that you would like me to mention to the provider today? R calf bruising, +Homans sign, wants to make sure about cysts, feeling nervous about cervix being short, has never been this far along. Right calf = 36.4cm, Left calf = 39.0cm documented in this encounter [facility] 11-05-2024 History of Present illness Narrative Reason [...] 6 hours as needed for nausea. Vit w/Rm-Zlavezuxa-BJ (PNV PO) pyridoxine (VITAMIN B-6) 25 mg, [...] vulgaris Endometriosis History of medical problems Miscarriage ([facility]) Ovarian cyst HISTORY PAST MEDICAL HISTORY SOCIAL HISTORY Past Medical History: Diagnosis Date Acne vulgaris Endometriosis History of medical problems recurrent strep Miscarriage ([facility]) Ovarian cyst Social History Tobacco Use Smoking [...] nursing note reviewed. Exam conducted with a electronic systems technician present. Vitals: Estimated body mass index is 27.02 kg/m as calculated from the following: Height as of 02/06/24: 5' 6 . Weight as of this encounter: 167 lb 6.4 oz. BP: 106/68 Patient's last menstrual period was 07/23/2024. ASSESSMENT & PLAN ICD-10-CM 1. Well woman exam with routine gynecological exam Z01.419 Pap Smear 2. Second trimester ([facility]) Z34.92 POCT urinalysis dipstick manually resulted Alpha fetoprotein, maternal Alpha fetoprotein, maternal 3. 15 weeks gestation of ([facility]) Z3A.15 POCT urinalysis dipstick manually resulted [...] Jack Woods DO documented in this encounter [facility] 10-08-2024 History of Present illness Narrative [...] 6 hours as needed for nausea. Vit w/Rg-Wwpezwkid-OC (PNV PO) pyridoxine (VITAMIN B-6) 25 mg, [...] nursing note reviewed. Exam conducted with a electronic systems technician present. Vitals: Estimated body mass index is [...] or undercooked meat, and stay away from [facility]. Patient has been consulted regarding any further [...] Jack Woods DO documented in this encounter [facility] 09-19-2024 History of Present illness Narrative [...] the following prescription(s): aspirin, omeprazole, ondansetron, vit w/an-kyiecomvr-ah, and progesterone. Medical History: Active Ambulatory Problems [...] or undercooked meat, and stay away from [facility]. Patient has also been advised to not [...] Manjula Elias MA documented in this encounter [facility] 04-10-2024 History of Present illness Narrative Reason for Appointment: Patient ID: Daphney Al is a 24 y.o. female who presents for Infertility Patient presents today for Fertility Follow Up appointment. MEDICATIONS Current Outpatient Medications Medication Instructions aspirin 81 MG oral suspension Vit w/Iq-Ipgeginhf-WU (PNV PO) ALLERGIES Allergies Allergen Reactions Cephalexin [...] nursing note reviewed. Exam conducted with a electronic systems technician present. Vitals: Estimated body mass index is [...] Pt voiced understanding. Discussed LAST referral towards [place]. Documented by Lisa Prasad LPN on behalf of: Jack Woods DO documented in this encounter [facility] 2024 History of Present illness Narrative Reason for Appointment: Patient ID: Daphney Al is a 23 y.o. female who presents for Infertility Patient presents today for Fertility Follow Up appointment. MEDICATIONS Current Outpatient Medications Medication Instructions aspirin 81 MG oral suspension Vit w/Xq-Masuaivoh-RT (PNV PO) ALLERGIES Allergies Allergen Reactions Cephalexin [...] nursing note reviewed. Exam conducted with a electronic systems technician present. Vitals: Estimated body mass index is [...] Jack Woods DO documented in this encounter [facility] 03-21-2023 Evaluation note Encounter Date Diagnosis [...] treatment plan. Patient left in stable condition [facility] Other Evaluation noteNo assessment information available [facility] Work Phone: Evaluation note* Diagnosis Encounter for infertility Hormone disorder Unspecified endocrine disorder documented in this encounter [facility] HealthcareEvaluation note* Diagnosis Female infertility Female infertility of unspecified origin History of miscarriage Personal history of other genital system and obstetric disorders documented in this encounter [facility] HealthcareEvaluation note* Diagnosis Missed menses , unspecified gestational age Encounter for supervision of normal first in first trimester Gastroesophageal reflux in Nausea and vomiting during documented in this encounter [facility] HealthcareEvaluation note* Diagnosis 11 weeks gestation of First trimester state, incidental Other constipation Gastroesophageal reflux in documented in this encounter [facility] HealthcareEvaluation note* Diagnosis Adnexal mass- Primary Other specified symptom associated with female genital organs 16 weeks gestation of Uterine fibroids affecting in second trimester Localized swelling of right lower extremity [facility] Adnexal mass- Primary Other specified symptom associated with female genital organs Uterine fibroids affecting in second trimester Localized swelling of right lower extremity [facility] Diagnosis Well woman exam with [...] in ([facility]) [facility] Diagnosis Second trimester ([facility]) state, incidental 27 weeks gestation of ([facility]) Elevated glucose tolerance test Impaired glucose tolerance test documented in this [facility] Narrative - Reported* Type Description Date Surgical History tonsillectomy Surgical History laparoscopy [facility] Other InstructionsNot on filedocumented in this encounter [facility]Not on filedocumented in this encounter [facility] SystemReason for referral (narrative)No reason for referral [facility] Work Phone: Summary Purpose Family History No Family History Records Found Relationship Condition Age at Onset Recorded Date/T juliette father Congestive heart failure Unknown Advance Directives No Advanced Directives Records FoundDocuments on File Type Date Recorded Patient Cradle Placer Expl anation Advance Directives and Living Will Power of Regional Rehabilitation Director Advance Directive Response Recorded Date/ Time Advance Directives No August 08 7:47am Advance Directive Response Recorded Date/ Time Advance Directives No March 27th, 2 018 8:47am Discharge Instructions * Instructions* Keyla Leyva MD - 02/01/2019 Follow-up with [employer] * Attachments The following attachments cannot be sent through Care Everywhere. * Abdominal Pain ([place]) * Appendicitis ([place]) documented in this encounter Assessments Diagnosis Abdominal [...] DATE CREATED AUTHOR 02/01/2019 Fina Eric Jose thorpe DATE CREATED AUTHOR AUTHOR'S ORGANIZ ATION 05/05/2023 [facility] DATE CREATED AUTHOR AUTHOR'S ORGANIZ ATION 11/13/2024 [facility] DATE CREATED AUTHOR AUTHOR'S ORGANIZ ATION 11/13/2024 [facility] DATE CREATED AUTHOR AUTHOR'S ORGANIZ ATION 12/12/2024 [facility] DATE CREATED AUTHOR AUTHOR'S ORGANIZ ATION 01/26/2025 [facility] DATE CREATED AUTHOR AUTHOR'S ORGANIZ ATION 01/29/2025 [facility] EPIC Reason for Visit (unrecogniz ed section and content) Reason Comments Routine Visit Specialty Diagnoses / Procedures Referred By Ky martini Referred To Contact Obstetrics and Gynecology Diagnoses Enlarged & Heterogeneous Bilateral Ovaries 2.3cm Isoechoic Left-sided Lesion Possible Endometrioma Procedures NE UNLISTED EVALUATION AND MANAGEMENT SERVICE [facility] [address] [place] [address] Jack Woods DO [address] [place] [address] Phone: tel: fax: Referral ID Status Reason Start Date Expiration Date Visits Re quested Visits Authorized [id number] Closed 11/12/2024 05/11/2025 1 1 Reason Comments [...] January 05, 2024 End: January 05, 2024 Hose Maker Relationship Specialty Start Date End Date Alberto Mayes MD [address] [place] [phone] PCP - General 05/02/23 Paloma Vazquez DO [address] [place] [address] Referring Physician Obstetrics and Gynecology 04/25/23 Hose Maker Relationship Specialty Start Date End Date Alberto Mayes MD [address] [place] [address] PCP - General 05/02/23 Paloma Vazquez DO [address] [place] [address] Referring Physician Obstetrics and Gynecology 04/25/23 Hose Maker Relationship Specialty Start Date End Date Alberto Mayes MD [address] [place] [phone] PCP - General 05/02/23 Paloma Vazquez DO [address] [place] [address] Referring Physician Obstetrics and Gynecology 04/25/23 Hose Maker Relationship Specialty Start Date End Date Alberto Mayes MD [facility] [place] [phone] PCP - General 05/02/23 Paloma Vazquez DO [address] [place] [address] Referring Physician Obstetrics and Gynecology 04/25/23 Hose Maker Relationship Specialty Start Date End Date Alberto Mayes MD [address] [place], [place] [address] [phone] PCP - General 05/02/23 Paloma Vazquez DO [address] [place] [address] Referring Physician Obstetrics and Gynecology 04/25/23 Hose Maker Relationship Specialty Start Date End Date Alberto Mayes MD [address] [place], [place] [address] [address] PCP - General 05/02/23 Paloma Vazquez DO [address] [place] [address] Referring Physician Obstetrics and Gynecology 04/25/23 Hose Maker Relationship Specialty Start Date End Date Alberto Mayes MD [address] [place] [address] PCP - General 05/02/23 Paloma Vazquez DO [address] [place] [address] Referring Physician Obstetrics and Gynecology 04/25/23 Hose Maker Relationship Specialty Start Date End Date Alberto Mayes MD [address] [place] [address] PCP - General 05/02/23 Paloma Vazquez DO [address] [place] [address] Referring Physician Obstetrics and Gynecology 04/25/23 Hose Maker Relationship Specialty Start Date End Date Alberto Mayes MD [address] [place] [address] PCP - General 05/02/23 Paloma Vazquez DO [address] [place] [address] Referring Physician Obstetrics and Gynecology 04/25/23 Hose Maker Relationship Specialty Start Date End Date Alberto Mayes MD [address] [place] [address] PCP - General 05/02/23 Paloma Vazquez DO [address] [place] [address] Referring Physician Obstetrics and Gynecology 04/25/23 Team Status: Inactive Member Role Status Dates Jack Woods DO Attending Provider Active Start : November 05, 2024 End: November 05, 2024 Hose Maker Relationship Specialty Start Date End Date Alberto Mayes MD [address] [place] [address] PCP - General 05/02/23 Paloma Vazquez DO [address] [address] Referring Physician Obstetrics and Gynecology 04/25/23 Hose Maker Relationship Specialty Start Date End Date Alberto Mayes MD PCP - General 05/02/23 Hose Maker Relationship Specialty Start Date End Date Alberto Mayes MD PCP - General 05/02/23 Hose Maker Relationship Specialty Start Date End Date Alberto Mayes MD PCP - General 05/02/23 Hose Maker Relationship Specialty Start Date End Date Alberto Mayes MD PCP - General 05/02/23 Hose Maker Relationship Specialty Start Date End Date Alberto Mayes MD PCP - General 05/02/23 Hose Maker Relationship Specialty Start Date End Date Alberto Mayes MD PCP - General 05/02/23 Hose Maker Relationship Specialty Start Date End Date Alberto Mayes MD PCP - General 05/02/23 Hose Maker Relationship Specialty Start Date End Date Alberto Mayes MD PCP - General 12/19/23 Goals (unrecognized section and content) Goals may [...] BE BASED ON THE PRIMARY CLINICAL RECORDS. [facility] [employer] [facility]. provides no warranty or guarantee of the accuracy or completeness of information in this document.
[2025-01-29 09:24] LABS: Glucose 1 Hour 163 mg/dL (<180)
[2025-01-29 10:22] LABS: Glucose 2 Hour 140 mg/dL (<155)
[2025-01-29 11:25] LABS: Glucose 3 Hour 121 mg/dL (<140)
== END 2025-01-29 07:52 | disposition home or self-care (01) ==
LOC: LAB 07:51
PROVIDERS: PCP Family Medicine; Visit Provider Physician Assistant
DX: R73.09 Other abnormal glucose (principal)
CPT/HCPCS: 36415; 82951; 82952

== ENCOUNTER 2025-03-08 11:02 | Outpatient (OUT) | payer BC, SELFPAY ==
--- OUTSIDE RECORDS SUMMARY | 2015-04-03 10:28 | XMS_ITS | Continuity of Care Document ---
Author Organization [facility] Address [address] [place] [address] Phone Care Team Providers Care Control Systems Specialist Name Role Phone Jonathan Herrera Unavailable Unavailable Procedures Procedure Date TB INTRADERMAL TEST TB INTRADERMAL TEST Advance Directives Directive Yes / No Effective Date File Name No Information Encounters Encounter Description Practice Location Reason(s) For Visit Diagnoses Date Provider Providers Copied on Encounter [facility], [address] [place] [address], [id number], tel:[phone] [facility] No Information Beronica Lopez. [address] [place], [place], [id number], [place]. tel:[phone] [facility], [address] [place] [address], [id number], [place] tel:[phone] [facility] No Information Beronica Lopez. [address] [place], [place], [id number], [place]. tel:[phone] [facility], [address] [place], [place], [id number], [place] tel:[phone] [facility] No Information Beronica Lopez. [address] [place], [place], [id number], [place]. tel:[phone] Family History Family Member Type Diagnosis Age At Onset No Information Payers Payer name Insurance type Covered democrat ID Authoriza tion(s) No Information Social History [...]
--- OUTSIDE RECORDS SUMMARY | 2025-02-25 13:50 | XMS_ITS | Encounter Summary ---
Author Organization [facility] Address [address] [place] [place] [address] Care Team Providers Care Resin Shaver Name Role Phone Alberto Mayes MD Primary Care Provider [phone] Reason for Referral * (Routine) - AuthorizedSpecialtyDiagnoses / ProceduresReferred By Contact Referred To ContactRadiology Diagnoses Pain of right lower extremity Procedures Vascular US lower extremity venous duplex right Jack Woods DO [address] [place] [address] Phone: tel: fax: Referral IDStatusReasonStart DateExpiration DateVisits RequestedVisits [id number]/14/20254/ Reason for Visit * ReasonCommentsRoutine Visit Encounter Details DateTypeDepartmentCare Team (Latest Contact Info)Cnnqznvxkas72/14/2025 1:50 PM EDTRoutine [facility] [place] [facility] [address] [place] [phone] Jack Woods DO [address] [place] [address] Third trimester ([facility] 31 weeks gestation of ([facility]); POTS (postural orthostatic tachycardia syndrome); Pain of right lower extremity Social History Tobacco UseTypesPacks/DayYears UsedDateSmoking Tobacco: NeverAlcohol UseStandard Drinks/WeekCommentsNever0 (1 standard drink = 0.6 oz pure alcohol)Caffeine intake: 3-4 cups per dayEstimated Date of FujwmonqGjblzpdiQrb96/16/2025 Based on last menstrual period of 07/23/2024Sex and Gender InformationValueDate RecordedSex Assigned at BirthNot on fileLegal NajUhihof52/15/2023 7:33 PM EDT Gender IdentityNot on fileSexual OrientationNot on filedocumented as of this encounter Last Filed Vital Signs Vital SignReadingTime TakenCommentsBlood Ihmadexr909/7002/25/2025 2:14 PM EDT Pulse--Temperature--Respiratory Rate--Oxygen Saturation--Inhaled Oxygen Concentration--Fgdluu03.2 kg (190 lb)02/25/2025 2:14 PM EDTHeight--Body Mass Index30.6709 1:52 PM EDTdocumented in this encounter Progress Notes * Lisa Prasad, BRIANA - 02/25/2025 1:50 PM EDT Reason for Appointment: Patient ID: Daphney Montesinos is a 25 y.o. female who presents for Routine Visit Patient presents today for Return OB appointment. MEDICATIONS Current Outpatient Medications Medication Instructions aspirin 81 MG oral suspension ondansetron (ZOFRAN) 4 mg, Oral, Every 6 hours PRN, Take 1 tablet by mouth every 6 hours as needed for nausea. Vit w/Cw-Lqdxratom-NR (PNV PO) ALLERGIES Allergies[1] PROBLEMS Active Ambulatory Problems Diagnosis Date Noted No Active Ambulatory Problems Resolved Ambulatory Problems Diagnosis Date Noted No Resolved Ambulatory Problems Past Medical History: Diagnosis Date Acne vulgaris Endometriosis History of medical problems Miscarriage ([facility]) Ovarian cyst HISTORY PAST MEDICAL HISTORY SOCIAL HISTORY Medical History[2] Social History Tobacco Use Smoking status: Never Smokeless tobacco: Not on file Substance Use Topics Alcohol use: Never Comment: Caffeine intake: 3-4 cups per day Drug use: Never FAMILY HISTORY Family History[3] SURGICAL HISTORY Surgical History[4] REVIEW OF SYSTEMS Review of Systems: Review [...] nursing note reviewed. Exam conducted with a harmonica maker present. Vitals: Estimated body mass index is 30.67 kg/m?? as calculated from the following: Height as of 02/06/24: 5' 6 . Weight as of this encounter: 190 lb. BP: 120/70 Patient's last menstrual period was 07/23/2024. ASSESSMENT & PLAN ICD-10-CM 1. Third trimester ([facility]) Z34.93 POCT urinalysis dipstick manually resulted 2. 31 weeks gestation of ([facility]) Z3A.31 3. POTS (postural orthostatic tachycardia syndrome) G90.A Return OB: Patient presents today for a routine obstetrics appointment. Patient is currently 31w0d . Patient states she is doing well but has complaints of being tired due to current . Patient has verbalizes frequent movement. labor precautions was discussed/given and patient was instructed to perform kick counts three times a day. Pt has pain and lower right leg varicosities- pt given venous doppler for right leg. Orders Placed This Encounter Procedures POCT urinalysis dipstick manually resulted Follow Up: Patient is to return to office in 2 week for routine OB appointment. Documented by Lisa Prasad LPN on behalf of: Jack Woods DO [1] Allergies Allergen Reactions Cephalexin Nausea And Vomiting Other Reaction(s): severe vomiting Other Reaction(s): Vomiting Other Reaction(s): severe vomiting Other Reaction(s): Vomiting Ciprofloxacin GI intolerance Other Reaction(s): GI Intolerance Pt states projectile vomiting. Other Reaction(s): Vomiting PROJECTILE VOMITING PROJECTILE VOMITING Other Reaction(s): GI Intolerance Pt states projectile vomiting. Other Reaction(s): Vomiting PROJECTILE VOMITING Pt states projectile vomiting. Prednisone Nausea And Vomiting Other Reaction(s): severe vomiting Other Reaction(s): Vomiting Other Reaction(s): severe vomiting Other Reaction(s): Vomiting [2] Past Medical History: Diagnosis Date Acne vulgaris Endometriosis History of medical problems recurrent strep Miscarriage ([facility]) Ovarian cyst [3] Family History Problem Relation Name Age of Onset Hypertension Father Diabetes Maternal Grandmother Heart disease Maternal Grandfather Heart disease Paternal Grandmother Other (liver failure) Paternal Grandfather Kidney failure Paternal Grandfather [4] Past Surgical History: Procedure Laterality Date BREAST BIOPSY Right 12/2018 LAPAROSCOPY DIAGNOSTIC / BIOPSY / ASPIRATION / LYSIS 11/20/2019 Diagnostic lap-endometriosis TONSILLECTOMY 11/03/2016 documented in this encounter Plan of Treatment DateTypeDepartmentCare Team (Latest Contact Info)Oglwvjyviux45/29/2025 2:40 PM EDTRoutine [facility] [address] [place] [address] Vielka Romero, JAZZY [address] [place] [address] NameTypePriorityAssociated DiagnosesOrder ScheduleVascular US lower extremity venous duplex rightImagingRoutine Pain of right lower extremity Expected: 02/25/2025, Expires: 02/25/2026documented as of this encounter Procedures Procedure NamePriorityDate/TimeAssociated DiagnosisCommentsPOCT URINALYSIS LEYUJADJMwigxgb09/14/2025 2:15 PM EDT Third trimester ([facility]) documented in this encounter Results * (ABNORMAL) POCT urinalysis dipstick manually resulted (02/25/2025 2:15 PM EDT) ComponentValueRef RangeTest MethodAnalysis TimePerformed AtPathologist SignatureColor, UAYellowClarity, UAClearGlucose, UANegativeNegative - 1999(110) ++++ mg/dLBilirubin, UANegativeNegative - 4(70) +++ mg/dLKetones, UA NegativeNegative - 160(16) ++++ mg/dLSpec Grav, UA1.0251 - 1.03Blood, UA NegativeNegative - 50 Clarke/mcLpH, UA6.05 - 9Protein, UA1+Negative - 2000(20) ++++ mg/dLUrobilinogen, UA1.00.2 - 12 mg/dLLeukocytes, UA3+Negative - 500+++ Kamaljit/mcLNitrite, UANegativeNegative - PositiveSpecimen (Source)Anatomical Location / LateralityCollection Method / VolumeCollection TimeReceived Time Urine02/25/2025 2:15 PM EDT Narrative Authorizing ProviderResult TypeResult StatusCorey Peggy DOPOINT OF CARE TEST ENTER/EDIT ORDERABLESFinal Result documented in this encounter Visit Diagnoses Diagnosis Third trimester ([facility]) state, incidental 31 weeks gestation of ([facility]) POTS (postural orthostatic tachycardia syndrome) Unspecified tachycardia Pain of right lower extremity documented in this encounter Care Teams Team MemberRelationshipSpecialtyStart DateEnd Date Alberto Mayes MD PCP - Bajmabl44/19/23documented as of this encounter
--- OUTSIDE RECORDS SUMMARY | 2025-02-27 11:00 | XMS_ITS | Encounter Summary ---
Author Organization [facility] Address [address] [place] [address] Care Team Providers Care Cartridge Feeder Name Role Phone Alberto Mayes MD Primary Care Provider [phone] Encounter Details DateTypeDepartmentCare Team (Latest Contact Info)Vijqojbhnpt69/16/2025 11:00 AM EDTAncillary Procedure [facility] [address] [address] [place] [address] size inconsistent with dates ([facility] Social History Tobacco UseTypesPacks/DayYears UsedDateSmoking Tobacco: NeverAlcohol UseStandard Drinks/WeekCommentsNever0 (1 standard drink = 0.6 oz pure alcohol)Caffeine intake: 3-4 cups per dayEstimated Date of WlgoeziwVqvijjkwMmv26/16/2025 Based on last menstrual period of 07/23/2024Sex and Gender InformationValueDate RecordedSex Assigned at BirthNot on fileLegal AiuHfsubj77/15/2023 7:33 PM EDT Gender IdentityNot on fileSexual OrientationNot on filedocumented as of this encounter Plan of Treatment DateTypeDepartmentCare Team (Latest Contact Info)Rxtotdclolq36/29/2025 2:40 PM EDTRoutine [facility] [address] [place] [address] Vielka Romero, INSTRUCTOR ADJUNCT PHARMACY TECHNICIAN [address] [place] [address] documented as of this encounter Procedures Procedure NamePriorityDate/TimeAssociated DiagnosisCommentsUS OB FOLLOW UP TRANSABDOMINAL VJHAUGKFKmdymid92/16/2025 11:33 AM EDT size inconsistent with dates ([facility]) documented in this encounter Results * OB follow up transabdominal approach (02/27/2025 11:33 AM EDT)Anatomical RegionLateralityModalityBodyUltrasoundSpecimen (Source)Anatomical Location / LateralityCollection Method / VolumeCollection TimeReceived Time02/27/2025 1:29 PM EDT Impressions 02/27/2025 2:19 PM EDT 1. Single, live intrauterine , current sonographic age of 31 weeks and 1 days, with an estimated date of delivery of April 30, 2025. 2. ??Comparison made with September 19, 2024 delivery at that time was April 29, 2025. * ??Estimated Weight (g) by Percentile is based upon an accurate estimated age based onlast menstrual period. ?? TRANSCRIBED BY: ? ELECTRONICALLY SIGNED BY: Renan Francis MD Narrative 02/27/2025 2:19 PM EDT FINDINGS: A single, live intrauterine is present with normal cardiac rate of ??147 beats per minute. Normal activity and amniotic fluid volume. Amniotic fluid index is 19.0 ??cm. ??The current sonographic age is 31 weeks and 1 days, based on the following measurements: BPD ? 7.6 cm (30 weeks, 4 ??days) Head Circumference ?28.3cm ( 31weeks, 1 days) Abdominal Circumference ?28.4cm (32 weeks, 3 days) Femur Length ? 5.8cm (31 weeks,2 ??days) Presentation ? Variable ? Weight (g) by Percentile ??44.4 % * These measurements result in an estimated date of delivery of ??April 30, 2025. ??The current estimated weight is 1776 ??grams ( 3 ??pound, 15 ounces). ?? A significant intramural fibroid is not visualized on this examination. Procedure Note Renan Francis MD - 02/27/2025 FINDINGS: A single, live intrauterine is present with normal cardiacrate of 147 beats per minute. Normal activity and amniotic fluidvolume. Amniotic fluid index is 19.0 cm. The current sonographic age is31 weeks and 1 days, based on the following measurements: BPD 7.6 cm (30 weeks, 4 days) Head Circumference 28.3cm ( 31weeks, 1 days) Abdominal Circumference 28.4cm (32 weeks, 3 days) Femur Length 5.8cm (31 weeks,2 days) Presentation Variable Weight (g) by Percentile 44.4 % * These measurements result in an estimated date of delivery of 2024. The current estimated weight is 1776 grams ( 3 pound,15 ounces). A significant intramural fibroid is not visualized on this examination. IMPRESSION: 1. Single, live intrauterine , current sonographic age of 31weeks and 1 days, with an estimated date of delivery of April. 2. Comparison made with September 19, 2024 delivery at that time was 2024. * Estimated Weight (g) by Percentile is based upon an accurateestimated age based on last menstrual period. TRANSCRIBED BY: ELECTRONICALLY SIGNED BY: Renan Francis MD Authorizing ProviderResult TypeResult StatusVielka Romero NPIMG OB US PROCEDURESFinal Result documented in this encounter Visit Diagnoses Diagnosis size inconsistent with dates ([facility]) documented in this encounter Care Teams Team MemberRelationshipSpecialtyStart DateEnd Date Alberto Mayes MD PCP - Yzzovyu76/19/23documented as of this encounter
--- OUTSIDE RECORDS SUMMARY | 2025-03-08 11:03 | XMS_ITS ---
Author Organization [facility] Source Produ ction (ClinicalSummary Clone) Address Unknown Care Team Providers Care Technology Development Intern Name Role Phone Unavailable Primary Care Physician Unavailab le Results * [UNITY] ANEUPLOIDY NIPT Performed by: [employer] Component Value Range Date Fraction 3.2% 10/03/2024 06:42 am UTCRh(D) NIPTRhD YAOWNBZI68/22/2025 06:42 am UTCSex Chromosome AneuploidyNOT KOWIYOQB44/22/2025 06:42 am UTCMonosomy XLOW RISK <1 in , 06:42 am UTCTrisomy 13LOW RISK <1 in , 06:42 am UTCTrisomy 18LOW RISK <1 in , 06:42 am UTCTrisomy 21LOW RISK <1 in , 06:42 am UTCFetal BofEFMC6710/03/2024 06:42 am UTCPregnancy NrketyipuJUKHYMVTF05/22/2025 06:42 am UTCFor detailed report, see PDFSee PDF 10/03/2024 06:42 am UTC10/03/2024 06:42 am UTC Social History Observation Value Start Date End Date
--- OUTSIDE RECORDS SUMMARY | 2025-03-08 11:03 | XMS_ITS | Clinical Summary ---
Author Organization [facility] Address [address] [place] [address] Care Team Providers Care Analytical Lab Analyst Name Role Phone Alberto Mayes MD Primary Care Provider [phone] Allergies Active AllergyReactionsCriticalityNoted DateCommentsCephalexinNausea And AajxlpziIgf02/20/2019 Other Reaction(s): severe vomiting Other Reaction(s): Vomiting Other Reaction(s): severe vomiting ??Other Reaction(s): Vomiting CiprofloxacinGI eoawbcotbkgLyc91/22/2019 Other Reaction(s): GI Intolerance Pt states projectile vomiting. Other Reaction(s): Vomiting PROJECTILE VOMITING PROJECTILE VOMITING Other Reaction(s): GI Intolerance ??Pt states projectile vomiting. ??Other Reaction(s): Vomiting ??PROJECTILE VOMITING Pt states projectile vomiting. PrednisoneNausea And KmkymuwpCjg69/20/2019 Other Reaction(s): severe vomiting Other Reaction(s): Vomiting Other Reaction(s): severe vomiting ??Other Reaction(s): Vomiting Medications MedicationSigDispense QuantityRefillsLast FilledStart DateEnd DateStatus aspirin 81 MG oral suspension 4Active Vit w/Fk-Cawheiwvb-YZ (PNV PO) Active ondansetron (Zofran) 4 MG tablet Indications:Gastroesophageal reflux in ([facility]),Nausea and vomiting during ([facility])Take 1 tablet (4 mg) by mouth every 6 (six) hours if needed for nausea or vomiting for up to 30 doses Take 1 tablet by mouth every 6 hours as needed for nausea. 30 tablet 5Active Encounters DateTypeDepartmentCare OxvhHmqomzafcjh65/16/2025 11:00 AM EDTAncillary Procedure [facility] [address] [place] [address] size inconsistent with dates ([facility])02/25/2025 1:50 PM EDTRoutine [facility] [address] [place] [phone] Jack Woods, Third trimester ([facility]); 31 weeks gestation of ([facility]); POTS (postural orthostatic tachycardia syndrome); Pain of right lower ycojiefze37/14/2025amboo flowsheet [facility] [address] [place] [phone] Jack Woods, 02/11/2025 9:50 AM EDTRoutine [facility] GALD[facility] [address] [place] [address] [place] [phone] Vielka Romero NP size inconsistent with dates ([facility]) (Primary Dx); Third trimester ([facility]); 29 weeks gestation of ([facility])02/11/2025amboo flowsheet [facility] [address] [place] [address] Vielka Romero NP 02/05/2025Telephone [facility] [address] [place] [address] [place] [phone] Jack Woods, 5Clinisync Result Encounter [facility] External Department Unsolicited Jayla Art PA 01/28/2025 8:40 AM EDTRoutine [facility] [address] [place] [address] Jayla Art PA Second trimester ([facility]); 27 weeks gestation of ([facility]); Elevated glucose tolerance test01/28/2025amboo flowsheet [facility] [place] [facility] [address] [place] [phone] Jayla Art PA 01/27/2025linisync Result Encounter [facility] External Department Unsolicited Jack Woods, DO 01/22/2025bstract [facility] [place] [facility] [address] [place] [phone] Jack Woods, DO 01/21/2025linisync Result Encounter [facility] External Department Unsolicited Jayla Art PA 01/16/2025 9:20 AM EDTOffice Visit [facility] [address] [place] [phone] Jack Woods, DO 25 weeks gestation of ([facility]); Second trimester ([facility]); Palpitations; Syncope, unspecified syncope type; Gastroesophageal reflux in ([facility])01/16/2025Telephone [facility] [address] [place] [phone] Kelley Sepulveda LPN 01/16/2025amboo flowsheet [facility] [address] [place] [address] Jack Woods, DO 01/09/2025Telephone [facility] [address] [place] [address] Jayla Art PA 01/07/2025 1:50 PM EDTRoutine [facility] [place] [facility] [address] [place] [phone] Jayla Art PA Second trimester ([facility]); 23 weeks gestation of ([facility]); Palpitations; Kyfkyhabcrn60/26/2025amboo flowsheet [facility] [address] [place] [address] Jayla Art PA 01/03/2025Telephone [facility] [address] [place] [phone] Jack Woods DO 12/31/2024 2:10 PM EDTRoutine [facility] [address] [place] [address] Jack Woods, Second trimester ([facility]); 23 weeks gestation of ([facility]); Diabetes mellitus adsxsideq15/19/2025amboo flowsheet [facility] [address] [place] [address] Jack Woods DO 12/31/2024Travelfrom Last 3 Months Family History Medical HistoryRelationNameCommentsHypertensionFatherHeart diseaseMaternal GrandfatherDiabetesMaternal GrandmotherKidney failurePaternal Grandfatherliver failurePaternal GrandfatherHeart diseasePaternal GrandmotherRelationNameStatus CommentsFatherAliveMaternal GrandfatherDeceasedMaternal GrandmotherDeceased MotherAlivePaternal GrandfatherDeceasedPaternal GrandmotherDeceased Social History Tobacco UseTypesPacks/DayYears UsedDateSmoking Tobacco: Never Tobacco Cessation:Counseling Given: Not Answered Alcohol UseStandard Drinks/WeekCommentsNever0 (1 standard drink = 0.6 oz pure alcohol)Caffeine intake: 3-4 cups per dayEstimated Date of Delivery EckacekwEya80/16/2025Based on last menstrual period of 07/23/2024Sex and Gender InformationValueDate RecordedSex Assigned at BirthNot on fileLegal SexFemale 07/27/2022 7:33 PM EDTGender IdentityNot on fileSexual OrientationNot on file Last Filed Vital Signs Vital SignReadingTime TakenCommentsBlood Ywzvavpw431/7002/25/2025 2:14 PM EDT Pulse--Temperature--Respiratory Rate--Oxygen Saturation--Inhaled Oxygen Concentration--Jklkql18.2 kg (190 lb)02/25/2025 2:14 PM ZQCLqwtrv534.6 cm (5' 6 )2024 1:52 PM EDTBody Mass Index30.67002/06/2024 1:52 PM EDT Plan of Treatment DateTypeDepartmentCare Team (Latest Contact Info)Gfpcivdacua15/29/2025 2:40 PM EDTRoutine [facility] [address] [place] [address] Vielka Romero, FOOD AND BEVERAGE CHECKER [address] [place] [phone] Procedures Procedure NamePriorityDate/TimeAssociated DiagnosisCommentsUS OB FOLLOW UP TRANSABDOMINAL PAKRNKIHTpddajz68/16/2025 11:33 AM EDT size inconsistent with dates ([facility]) POCT URINALYSIS FHMGGKGTCfyugax08/14/2025 2:15 PM EDT Third trimester ([facility]) POCT URINALYSIS ZMGRHVMZUktknvo72/30/2025 9:59 AM EDT Third trimester ([facility]) GLUCOSE TOLERANCE 3 APOZEhpvaew36/17/2025 8:02 AM EDT POCT URINALYSIS MDVJTRDISjidjjl04/16/2025 8:57 AM EDT Second trimester ([facility]) GLUCOSE 1 KKJWMcbweuc32/15/2025 9:23 AM EDT CA ECHO DOPPLER RREIYRBN79/09/2025 9:58 AM EDT POCT URINALYSIS JDDKOKBYYhvntzy17/04/2025 9:45 AM EDT 25 weeks gestation of ([facility]) Second trimester ([facility]) POCT URINALYSIS JLMTUKQWZuchtbh34/26/2025 2:18 PM EDT Second trimester ([facility]) POCT URINALYSIS OOQHRHKYSxcxdtc39/19/2025 2:41 PM EDT Second trimester ([facility]) 23 weeks gestation of ([facility]) from Last 3 Months Results * US OB follow up transabdominal approach (02/27/2025 11:33 [...] BY: Renan Francis MD Authorizing ProviderResult TypeResult Statusdayton Romero [facility] OB US PROCEDURESFinal Result * (ABNORMAL) POCT urinalysis dipstick manually resulted (02/25/2025 2:15 PM EDT) Only the most recent of6 resultswithin the time period is included. ComponentValueRef RangeTest MethodAnalysis TimePerformed AtPathologist Signature Color, UAYellowClarity, UAClearGlucose, UANegativeNegative - 2000(110) ++++ mg/dLBilirubin, UANegativeNegative - 4(70) +++ mg/dLKetones, UANegativeNegative - 160(16) ++++ mg/dLSpec Grav, UA1.0251 - 1.03Blood, UANegativeNegative - 50 Clarke/mcLpH, UA6.05 - 9Protein, UA1+Negative - 2000(20) ++++ mg/dLUrobilinogen, UA 1.00.2 - 12 mg/dLLeukocytes, UA3+Negative - 500+++ Kamaljit/mcLNitrite, UANegative Negative - PositiveSpecimen (Source)Anatomical Location / LateralityCollection Method / VolumeCollection TimeReceived UqjrZytbv07/14/2025 2:15 PM EDT Narrative Authorizing ProviderResult TypeResult StatusCoreEdith [facility] DOPOINT OF CARE TEST ENTER/EDIT ORDERABLESFinal Result * GLUCOSE TOLERANCE 3 HOUR (01/29/2025 8:02 AM EDT)ComponentValueRef RangeTest MethodAnalysis TimePerformed AtPathologist SignatureGLUCOSE TOLERANCE 3 HOUR mg/dLTBHComment: GLU FAST 83 (<95) Col: 01/29/25 0802 GLU 1HR 163 (<180) Col: 01/29/25 0906 GLU 2HR 140 (<155) Col: 01/29/25 1005 GLU 3HR 121 (<140) Col: 01/29/25 1104 Specimen (Source)Anatomical Location / LateralityCollection Method / Volume Collection TimeReceived Time01/29/2025 8:02 AM EDT01/29/2025 8:03 AM EDT Narrative [facility] - 01/29/2025 11:34 AM EDT Authorizing ProviderResult TypeResult StatusMass[facility] BLOOD ORDERABLES Final ResultPerforming OrganizationAddressCity/State/ZIP CodePhone Number [facility] * (ABNORMAL) GLUCOSE 1 HOUR (01/27/2025 9:23 AM EDT)ComponentValueRef RangeTest MethodAnalysis TimePerformed AtPathologist SignatureGLUCOSE 1 YMWF574(H)<130 mg/dLTBHSpecimen (Source)Anatomical Location / LateralityCollection Method / VolumeCollection TimeReceived Time01/27/2025 9:23 AM EDT01/27/2025 9:24 AM EDT Narrative [facility] - 01/27/2025 10:14 AM EDT Authorizing ProviderResult TypeResult StatusCorey Peggy [facility] BLOOD ORDERABLES Final ResultPerforming OrganizationAddressCity/State/ZIP CodePhone Number [facility] * CA ECHO DOPPLER COMPLETE (01/21/2025 9:58 AM EDT)Anatomical RegionLaterality ModalityOtherSpecimen (Source)Anatomical Location / LateralityCollection Method / VolumeCollection TimeReceived Time01/21/2025 9:58 AM EDT Narrative 01/21/2025 9:59 AM EDT [facility] ?[address] ? [place], [facility] ? Cardiology Report ? Signed ? Patient: DAPHNEY MONTESINOS ? MR#: [id number] ?? : 2000 ?Acct:[id number] ?? Age/Sex: 24 / F ?ADM Date: 01/20/25 ?? Loc: CARD ? Attending Dr: Jayla Art ? Ordering Physician: Jayla Art ?? Date of Service: 01/20/25 ?? Procedure(s): CA echo doppler complete ?? Accession Number(s): [id number] ? cc: Jayla Art; Alberto Mayes M.D. ? Patient Name: ? DAPHNEY MONTESINOS ? MR#: [id number] ? : 2000 ? Exam Date: 01/20/2025 ?? Ordering Doctor: REKHA ART . ? ECHOCARDIOGRAM REPORT ? PROCEDURE: ? CA ECHO DOPPLER COMPLETE ? INDICATIONS: ? Palpitations, tachycardia, 26 weeks ? COMPARISON: ? None. ? DESCRIPTION: ? COMPLETE ECHOCARDIOGRAM Real-time transthoracic ?? echocardiography with 2D, M-mode, spectral and color flow Doppler performed. ? QUALITY: ? Technically difficult due to poor acoustics. ?? LEFT VENTRICLE: ? Normal chamber size. Normal left ventricular wall ?? thickness. ? LV EF: ? Global left ventricular systolic function is difficult to assess ?? hypokinesis of; visually estimated ejection fraction 55 to 60%. ??Unable to ?? assess regional wall motion abnormalities. ?? DIASTOLIC: ? Normal diastolic function. ?? ATRIAL SEPTUM: ? Inadequately seen ?? LEFT ATRIUM: ? Normal chamber size. ?? RIGHT ATRIUM: ? Normal chamber size. ?? RIGHT VENTRICLE: ? Normal chamber size. Normal right ventricular systolic ?? function. ? TRICUSPID VALVE: ? Normal mobility and thickness. No stenosis with no ?? regurgitation. ? MITRAL VALVE: ? Normal mobility and thickness. ?? No evidence of mitral valve ?? stenosis. ??There is no mitral annular calcification. No mitral regurgitation. ? AORTIC VALVE: ? Normal trileaflet appearance. No visible sclerosis. ??Normal ?? leaflet mobility. ??No evidence of aortic valve stenosis. No aortic ?? regurgitation. ? AORTIC ROOT: ? Normal diameter and appearance. ? PULMONIC VALVE: ? Not well visualized. No stenosis. No regurgitation. ? PERICARDIUM: ? No evidence of pericardial effusion. ? IVC: ? Not well visualized. ? CONCLUSION: ? 1. Global left ventricular systolic function is difficult to assess but ?? appears preserved; visually estimated ejection fraction is 55 to 60% ?? 2. Normal right ventricular size and systolic function ?? 3. The left atrium is normal size ?? 4. Normal diastolic function ?? 5. No significant valvular abnormalities ? Adult Echocardiography Procedure Report ?? Left Ventricle ?? LVEDD (3.7 - 5.6 cm): ? 3.51 cm ?? LVESD (2.2 - 4.0 cm): ? 2.40 cm ?? LVIVS thickness (0.6 - 1.2 cm): ? 1.03 cm ?? LVPW thickness (0.5 - 1.0 cm): ? 1.02 cm ?? e': ? 0.16 m/s ?? E - e': ? 5.11 ?? LVOT Max Gradient: ? 3.11 mm[Hg] ?? LVOT Area (cm2): ? 0.88 m/s ?? Peak Velocity (LVOT): ? 0.88 m/s ?? LVOT Diameter ? 2.04 cm ?? Left Atrium ?? LA Volume Index (2D A2C): ? 23.39 ml/m2 ?? Left Atrium Systolic Dimension: ? 2.87 cm ?? Mitral Valve ?? MV E to A Ratio: ? 1.54 ?? Mitral Valve A-Wave Peak Velocity: ? 0.52 m/s ?? Mitral Valve E-Wave Peak Velocity: ? 0.81 m/s ?? Right Ventricle ?? Aorta ?? AO Root Diam: ? 2.75 cm ?? Aortic Valve ?? AoV Area (Peak Jaskaran): ? 2.34 cm2, 2.34 cm2 ?? Peak Velocity(Antegrade Flow): ? 1.23 m/s ?? Peak Gradient(Antegrade Flow): ? 6.09 mm[Hg] ?? Tricuspid Valve ?? Pulmonic Valve ?? Peak Gradient: ? 4.25 mm[Hg], 4.52 mm[Hg] ?? Right Atrium ?? Right Atrium Systolic Pressure: ? 36.41 ml, 36.41 ml ? Dictated by: Randy Marie M.D. on 01/21/2025 at 09:56 ? Approved by: Randy Marie M.D. on 01/21/2025 at 09:58 ? Dictated By: ?Randy Marie M.D. ? Signed By: ?01/21/25 0959 ? DD/ 0958 ? TD/TT: ? Retail Operations Specialist: Procedure Note Radiology, Radiologist, - 01/21/2025 [place] [address] Cardiology Report Signed Patient: DAPHNEY MONTESINOS JMR#: [id number] : 2000Acct:[id number] Age/Sex: 24 / FADM Date: 01/20/25 Loc: CARD Attending Dr: Jayla Art Ordering Physician: Jayla Art Date of Service: 01/20/25 Procedure(s): CA echo doppler complete Accession Number(s): [id number] cc: Jayla Art; Alberto Mayes M.D. Patient Name: DAPHNEY MONTESINOS MR#: [id number] : 2000 Exam Date: 01/20/2025 Ordering Doctor: [...] Marie M.D. Signed By:01/21/25958 DD/ 7 TD/TT: Retail Operations Specialist: Authorizing ProviderResult TypeResult StatusAmy Cali PACLUNIVERSITY OF SOUTH ALABAMA CHILDREN'S AND WOMEN'S HOSPITALYNC IMAGINGFinal Result from Last 3 Months Insurance * Guarantor: Eugenia Montesinos TypeRelation to PatientDate of BirthPhoneBilling AddressPersonal/QzascrCsdt2000 [facility] [phone] Care Teams Team MemberRelationshipSpecialtyStart DateEnd Alberto Mayes MD [facility] - Jchtehr28/19/23
--- OUTSIDE RECORDS SUMMARY | 2025-03-08 11:03 | XMS_ITS | Clinical Summary ---
Author Organization [employer] Address [id number] [address] [place] [address] Care Team Providers Care Project Inspector Name Role Phone Unavailable Primary Care Provider Unavailabl e Allergies Active AllergyReactionsCriticalityNoted DateCommentsCephalexinNausea And Qfbpvhht65/23/9335BpzynyggjzlagBbfpcziw37/23/2025 PROJECTILE VOMITING PrednisoneNausea And Xykbfmys03/23/2025 Medications MedicationSigDispense QuantityRefillsLast FilledStart DateEnd DateStatus ondansetron (ZOFRAN) 4 mg tablet Take 1 tablet (4 mg total) by mouth every 8 (eight) hours as needed for nausea or vomiting.Active aspirin 81 mg chewable tablet Chew 1 tablet (81 mg total) and swallow in the morning.Active omeprazole (PriLOSEC) 20 mg capsule Take 1 capsule (20 mg total) by mouth in the morning.Active PNV 78-copw-xksudqkunfcv-dha 29 mg iron-1 mg -350 mg comb pack,tablet DR,capsule DR Take 1 tablet by mouth in the morning.Active Encounters DateTypeDepartmentCare LabqCnjoljqjwng44/29/2025Travelfrom Last 3 Months Family History Medical HistoryRelationNameCommentsDevelopmental delayCousinHeart defectCousin Autoimmune diseaseFatherRAHypertensionFatherHeart diseaseMaternal Grandfather DiabetesMaternal GrandmotherKidney diseasePaternal GrandfatherLiver disease Paternal GrandfatherHeart diseasePaternal GrandmotherAutismNeg HxBleeding DisorderNeg HxCancerNeg HxClotting disorderNeg HxDown syndromeNeg Hx Dysfunctional uterine bleedingNeg HxSudden deathNeg HxRelationNameStatusComments CousinAliveFatherMaternal GrandfatherMaternal GrandmotherPaternal Grandfather Paternal Grandmother Social History Tobacco UseTypesPacks/DayYears UsedDateSmoking Tobacco: Never Tobacco Cessation:Counseling Given: Not Answered Alcohol UseStandard Drinks/WeekCommentsNever0 (1 standard drink = 0.6 oz pure alcohol)Hunger ScreeningAnswerDate RecordedWithin the past 12 months we worried whether our food would run out before we got money to buy more.Never True 11/12/2024Within the past 12 months the food we bought just didn't last and we didn't have money to get more.Never True11/12/2024Estimated Date of NgjnddbxIqkivapmEtu44/16/2025ased on UltrasoundSex and Gender InformationValue Date RecordedSex Assigned at BirthNot on fileLegal TjaOndgzm07/14/2023 2:00 PM EDTGender IdentityNot on fileSexual OrientationNot on file Last Filed Vital Signs Vital SignReadingTime TakenCommentsBlood Eidqmwab845/7311/12/2024 8:47 AM EDT Ccojx645411/12/2024 8:47 AM EDTTemperature--Respiratory Rate--Oxygen Saturation-- Inhaled Oxygen Concentration--Zaaixx63.2 kg (170 lb 3.2 oz)11/12/2024 8:47 AM PEJJigcwk936.6 cm (5' 5.98 )11/12/2024 8:47 AM EDTBody Mass Index27.48011/12/2024 8:47 AM EDT Plan of Treatment Health MaintenanceDue DateLast DoneCommentsDepression Prqobdafo89/25/2010dult BMI Follow Up Plan02/07/2016DTaP,Tdap and Td Vaccines (2 - Td or Tdap)12/24/2019 12/23/2009Influenza Ioavhaz07Adult BMI Qcfpetycf08/01/2026 11/12/2024Tobacco Jmcetadfm87Pap Smear Medical Devices Not on file Procedures Procedure NamePriorityDate/TimeAssociated DiagnosisCommentsUS MFM OB FOLLOW-UP, 1 SQECHJxvrjex89/29/2025 4:00 PM EDT Adnexal mass Uterine fibroids affecting in second trimester Localized swelling of right lower extremity from Last 3 Months Results * US MFM OB FOLLOW-UP, 1 FETUS (12/10/2024 4:00 PM EDT)Anatomical Region LateralityModalityOB-GYNUltrasoundSpecimen (Source)Anatomical Location / LateralityCollection Method / VolumeCollection TimeReceived Time12/10/2024 1:46 PM EDT Narrative 12/10/2024 4:07 PM EDT NAME: ??SERVANDO LANGLEY : 2000 SEX: F Accession Number: [id number] ORDERING PHYSICIAN: SAMANTHA SCHMIDT REFERRING PHYSICIAN: GABY FOX Coding Procedures ? 04662: Follow-up Ultrasound, per fetus Indication Screening for follow-up survey, Uterine fibroid affecting , Supervision of high risk (bilateral complex ovaries), Screening for cervical length History OB History ? 3. Para 0 ? [id number] Current Cell free DNA ?Low Risk analysis Maternal Assessment Physical Exam ??Height 168 cm, 5 ft 6 in. Weight 77 kg, 170 lb. Initial weight 77 kg, 170 lb. BMI 27.44 kg/m??. Initial ? BMI 27.44 kg/m??. Weight gain 0 kg, 0 lb Method Transabdominal and transvaginal ultrasound examination Rodriguez . Number of fetuses: 1 Dating LMP on: ?07/23/2024 GA by LMP ?20 w + 0 d PORFIRIO by LMP: ?04/29/2025 Previous Ultrasound on: ?09/19/2024 Type of prior assessment: ?GA GA at prior assessment date ?8 w + 2 d GA by previous U/S ? 20 w + 0 d PORFIRIO by previous Ultrasound: ?04/29/2025 Ultrasound examination on: ? 12/10/2024 GA by U/S based upon: ??AC, BPD, Femur, HC GA by U/S ?20 w + 2 d PORFIRIO by U/S: ?04/27/2025 Assigned: ?based on the LMP, selected on 11/12/2024 Assigned GA ?20 w + 0 d Assigned PORFIRIO: ??04/29/2025 General Evaluation Cardiac activity Present. FHR 146 bpm. Presentation: variable Placenta: Placental site: anterior, away from cervical os Umbilical cord: Cord vessels: 3 vessel cord. Insertion site: documented previously Amniotic fluid: Amount of AF: normal amount. MVP 5.9 cm Biometry Standard BPD ?46.9 mm 20w 1d 58% Hadlock OFD ?61.1 mm 21w 0d 83% Nuno HC ? 174.4 mm ?20w 0d 40% Hadlock Cerebellum tr ??20.0 mm 19w 2d 50% Hill Nuchal fold ?4.7 mm AC ? 163.3 mm ?21w 3d 86% Hadlock Femur ??30.7 mm 19w 4d 25% Hadlock Humerus ?30.4 mm 20w 0d 57% Nuno HC / AC ?1.07 ? 5% Hadlock EFW ?356 g ?71% Hadlock EFW (lb) ? 0 lb EFW (oz) ? 13 oz EFW by: ?Hadlock (SUH-JM-ZU-FL) Extended Tibia ??26.9 mm 19w 5d 48% Nuno Machine Operators ? 5.3 mm CM 2.2 mm <1% Nicolaides Head / Face / Neck Cephalic index 0.77 ? 28% Nicolaides Nasal bone: ?present Extremities / Bony Struc FL / BPD ? 0.65 ? 13% Hadlock FL / HC ?0.18 ? 26% Hadlock FL / AC ?0.19 ? 1% Hadlock Other Structures FHR ?146 bpm Anatomy The following structures appear normal: Head/Neck: Cranium. Lateral ventricles. Cavum septi pellucidi. Cerebellum. Cisterna magna. Parenchyma. Vermis. Face: Lips. Profile. Nose. Nasal bone. Maxilla. Mandible. Orbits. Heart/Thorax: 4-chamber view. RVOT view. LVOT view. 3-vessel view. 5-kczouo-pnjarsv view. Situs. Aortic arch view. ? Bicaval view. Ductal arch view. Interventricular septum. Great vessels. Cardiac position. Cardiac axis. ? Cardiac size. Cardiac rhythm. ? Right lung. Left lung. Diaphragm. Abdomen: Abdom. wall. Cord insertion. Stomach. Kidneys. Bladder. Small bowel. Large bowel. Spine: Cervical spine. Thoracic spine. Lumbar spine. Sacral spine. Extremities/Skeleton: Right foot. Left foot. Skeleton The following structures were documented previously: Head / Neck ?Choroid plexus. Midline falx. ? Neck. Abdomen ?Right renal artery. Left renal artery. Genitals. Extremities / ??Right upper arm. Right forearm. Right hand. Left upper arm. Left forearm. Left hand. Right upper leg. ? Right lower leg. Left upper leg. Left lower leg. Maternal Structures Uterus Visualized ? Fibroid(s) ? 1. ?Size 34 mm x 21 mm x 30 mm. Mean 28.3 mm. Vol 11.177 cm??. Intramural, anteriorLt Low ? 2. ?Size 14 mm x 8 mm x 11 mm. Mean 10.9 mm. Vol 0.644 cm??. Intramural, anterior ML Cervix Visualized ? Cervical length 4.41 cm Right Ovary ?Abnormal ? Size 2.3 cm x 2.4 cm x 4.3 cm. Vol 12.5 cm? Appearance: Heterogenous appearance Left Ovary ? Abnormal ? Size 4.1 cm x 2.8 cm x 3.2 cm. Vol 19.3 cm? Appearance: Heterogenous appearance Cul de Sac ? Visualized. Free fluid visualized Impression Single viable intrauterine with appropriate interval growth. EFW measures at the 71%, AC measures at the 86%. anatomic survey did not reveal sonographic evidence of any gross structural abnormalities. Amniotic fluid MVP measures 5.9 cm. Transvaginal cervical length measures 4.41 cm. Uterine fibroid(s) as noted above. Bilateral complex adnexal masses again noted with heterogenous appearance. Recommendations Please see [facility] recommendations from prior clinical and/or ultrasound [...] LANGLEY : 2000 SEX: F Accession Number: [id number] ORDERING PHYSICIAN: SAMANTHA SCHMIDT REFERRING PHYSICIAN: GABY FOX Coding Procedures 34083: Follow-up Ultrasound, per fetus Indication Screening for follow-up survey, Uterine fibroid affecting ,Supervision of high risk (bilateral complex ovaries), Screening for cervical length History OB History 3. Para 0 [id number] Current Cell free DNA Low Risk analysis Maternal Assessment Physical Exam Height 168 cm, 5 ft 6 in. Weight 77 kg, 170 lb. Initialweight 77 kg, 170 lb. BMI 27.44 kg/m??. Initial BMI 27.44 kg/m??. Weight gain 0 kg, 0 lb Method Transabdominal and transvaginal ultrasound examination Rodriguez . Number of fetuses: 1 Dating LMP on: 07/23/2024 GA by LMP 20 [...] 0 d Assigned PORFIRIO: 04/29/2025 General Evaluation Cardiac activity Present. FHR 146 bpm. Presentation: variable Placenta: Placental site: anterior, away from cervical os Umbilical cord: Cord vessels: 3 vessel cord. Insertion site: documented previously Amniotic fluid: Amount of AF: normal amount. MVP 5.9 cm Biometry Standard BPD 46.9 mm 20w 1d 58% [...] EFW (oz) 13 oz EFW by: Hadlock (NUI-IF-DU-FL) Extended Tibia 26.9 mm 19w 5d 48% Nuno Machine Operators 5.3 mm CM 2.2 mm <1% Nicolaides Head / Face / Neck Cephalic index 0.77 28% Nicolaides Nasal bone: present Extremities / Bony Struc FL / BPD 0.65 13% Hadlock FL / HC 0.18 26% Hadlock FL / AC 0.19 1% Hadlock Other Structures FHR 146 bpm Anatomy The following structures appear normal: Head/Neck: Cranium. Lateral ventricles. Cavum septi pellucidi. Cerebellum. Cisterna magna. Parenchyma. Vermis. Face: Lips. Profile. Nose. Nasal bone. Maxilla. Mandible. Orbits. Heart/Thorax: 4-chamber view. RVOT view. LVOT view. 3-vessel view. 8-mjdxsz-ovvpadz view. Situs. Aortic arch view. Bicaval view. [...] upper leg. Left lower leg. Maternal Structures Uterus Visualized Fibroid(s) 1. Size 34 mm x 21 mm x 30 mm. Mean 28.3 mm. Vol 11.177 cm??.Intramural, anterior Lt Low 2. Size 14 mm x 8 mm x 11 mm. Mean 10.9 mm. Vol 0.644 cm??.Intramural, anterior ML Cervix Visualized Cervical length 4.41 cm Right Ovary Abnormal Size 2.3 cm x 2.4 cm x 4.3 cm. Vol 12.5 cm?? Appearance: Heterogenous appearance Left Ovary Abnormal Size 4.1 cm x 2.8 cm x 3.2 cm. Vol 19.3 cm?? Appearance: Heterogenous appearance Cul de Sac Visualized. Free fluid visualized Impression Single viable intrauterine with appropriate interval growth. EFW measures at the 71%, AC measures at the 86%. anatomic survey did not reveal sonographic evidence of any grossstructural abnormalities. Amniotic fluid MVP measures 5.9 cm. Transvaginal cervical length measures 4.41 cm. Uterine fibroid(s) as noted above. Bilateral complex adnexal masses again noted with heterogenousappearance. Recommendations Please see M recommendations from prior clinical and/or ultrasoundreport documentation. Follow up growth ultrasound in the 3rd trimester to be done in referringOB office. Subsequent follow up or other follow up as clinically determined byprimary OB provider unless otherwise specified by MFM. Results forwarded to ordering provider so they can follow up with thepatient as necessary. Authorizing ProviderResult TypeResult StatusSamantha ANGEL US ORDERABLES Final Result from Last 3 Months Insurance [address] [place] [address]
--- OUTSIDE RECORDS SUMMARY | 2025-03-08 11:03 | XMS_ITS | Clinical Summary ---
Author Organization [facility] Address [facility] [place] [address] Care Team Providers Care Manager Hi Name Role Phone Alberto Mayes MD Primary Care Provider [phone] Allergies Active AllergyReactionsCriticalityNoted DateCommentsCiprofloxacinGI Intolerance Low08/03/2018 Pt states projectile vomiting. Medications MedicationSigDispense QuantityRefillsLast FilledStart DateEnd DateStatus norethindrone-ethinyl estradiol-iron (MICROGESTIN FE1.5/30) 1.5 mg-30 mcg (21)/75 mg (7) tablet Take 1 (one) tablet by mouth daily . 28 tablet 11008/15/2018Active Active Problems No known active problems Family History Medical HistoryRelationCommentsArthritisFatherHypertensionFatherDiabetesMother RelationStatusCommentsFatherMother Social History Tobacco UseTypesPacks/DayYears UsedDateSmoking Tobacco: NeverSmokeless Tobacco: NeverAlcohol UseStandard Drinks/WeekCommentsNever0 (1 standard drink = 0.6 oz pure alcohol)AUDIT-CAnswerDate RecordedFrequency of Alcohol ConsumptionNever 08/03/2018Average Number of DrinksNot on file08/03/2018Frequency of Binge DrinkingNot on file08/03/2018CommentsNoSex and Gender InformationValue Date RecordedSex Assigned at BirthNot on fileLegal FgaTixbys54/26/2019 11:38 AM ESTGender DgffjnadSuzmvb63/22/2019 1:23 PM EDTSexual OrientationStraight 08/03/2018 1:23 PM EDT Last Filed Vital Signs Vital SignReadingTime TakenCommentsBlood Ouyvxnqq314/7004 3:04 PM EDT Juxqk4812 3:04 PM NLTNlelwigyfow89.4 ??C (97.5 ??F)08/15/2018 3:04 PM EDTRespiratory Hxqx3037 3:04 PM EDTOxygen Saturation--Inhaled Oxygen Concentration--Qktkoa16.8 kg (131 lb 12.8 oz)08/15/2018 3:04 PM UUDUfibkf474.2 cm (5' 4.25 )08/15/2018 3:04 PM EDTBody Mass Index22.45008/15/2018 3:04 PM EDT Plan of Treatment Health MaintenanceDue DateLast DoneCommentsWellness Visit2001Depression Screening/Follow-Up (PHQ-2/9)2010HIV Vhdwkmgyp04/25/2013Hepatitis C Gznjucggv81/25/2016Pap Smear2019Tetanus: Every 10yrs (RETIRED)12/24/2019 12/23/2009COVID-19 Vaccine ( season)2025Influenza Vaccine (#1) Pneumococcal VaccineAged OutNo longer eligible based on patient's age to complete this topic Insurance * Guarantor: Korin MontesinosAccount TypeRelation to PatientDate of BirthPhoneBilling AddressPersonal/StimskMzws2000 [address] [id number] Care Teams Team MemberRelationshipSpecialtyStart DateEnd Date Alberto Mayes MD [address] [place], [place] [id number] PCP - GeneralFamily Medicine08/03/18
--- OUTSIDE RECORDS SUMMARY | 2025-03-08 11:03 | XMS_ITS | Clinical Summary ---
Author Organization [facility] Address [address], [address] [place] [address] Care Team Providers Care Embedded Case Manager Name Role Phone Unavailable Primary Care Provider Unavailabl e Allergies Active AllergyReactionsCriticalityNoted DateCommentsCephalexinNausea And NckyrljkVof44/20/2019PrednisoneNausea And AupokjxwMcp30/20/2019 Medications MedicationSigDispense QuantityRefillsLast FilledStart DateEnd DateStatus norethindrone-ethinyl estradiol-iron (AKIL FE ) 1.5-30 MG-MCG tablet Take 1 tablet by mouth dailyActive Social History Tobacco UseTypesPacks/DayYears UsedDateSmoking Tobacco: NeverSmokeless Tobacco: NeverAlcohol UseStandard Drinks/WeekCommentsNot Currently0 (1 standard drink = 0.6 oz pure alcohol)CommentsNoSex and Gender InformationValueDate RecordedSex Assigned at BirthNot on fileLegal LkcLdxvom65/20/2019 4:01 AM EDT Gender IdentityNot on fileSexual OrientationNot on file Last Filed Vital Signs Vital SignReadingTime TakenCommentsBlood Bnvmregv181/6409 6:41 AM EDT Xzfeh248002/01/2019 6:41 AM IZEHbqfttxkuuf84.7 ??C (98 ??F)02/01/2019 4:30 AM EDT Respiratory Ktnx5523 4:30 AM EDTOxygen Sguibratkj161%02/01/2019 4:30 AM EDTInhaled Oxygen Concentration--Gedwso95.9 kg (129 lb 14.4 oz)02/01/2019 4:30 AM EDTHeight--Body Mass Index-- Plan of Treatment Not on file Insurance
--- OUTSIDE RECORDS SUMMARY | 2025-03-08 11:03 | XMS_ITS | Encounter Summary ---
Author Organization [facility] Address [address] [address] Care Team Providers Care Horser Up Name Role Phone Alberto Mayes MD Primary Care Provider Encounter Details DateTypeDepartmentCare Team (Latest Contact Info)Apwoticsguy94/14/2025amboo flowsheet RIMMA GALDAMEZ [address] [place] [place] [address] Jack Woods DO [address] [place], [place] [address] Social History Tobacco UseTypesPacks/DayYears UsedDateSmoking Tobacco: NeverAlcohol UseStandard Drinks/WeekCommentsNever0 (1 standard drink = 0.6 oz pure alcohol)Caffeine intake: 3-4 cups per dayEstimated Date of MhlvgclvKnzfvflbAjo90/16/2025 Based on last menstrual period of 07/23/2024Sex and Gender InformationValueDate RecordedSex Assigned at BirthNot on fileLegal GdiTjfdat47/15/2023 7:33 PM EDT Gender IdentityNot on fileSexual OrientationNot on filedocumented as of this encounter Plan of Treatment DateTypeDepartmentCare Team (Latest Contact Info)Wqrndngqovq17/29/2025 2:40 PM EDTRoutine [facility]OM[facility] GALDAMEZ [address] [place] [place] [address] Vielka Romero NP [address] [place] [address] documented as of this encounter Visit Diagnoses Not on filedocumented in this encounter Care Teams Team MemberRelationshipSpecialtyStart DateEnd Date Alberto Mayes MD PCP - Ukzfhwq00/19/23documented as of this encounter
--- OUTSIDE RECORDS SUMMARY | 2025-03-08 11:04 | XMS_ITS | CCD ---
Author Organization [facility] Care Team Providers Care Refractory Products Supervisor Name Role Phone KEYLA LEYVA Attending Unavailable Unavailable Primary Care Provider UnavailRina Carpio Unavailable MD Zachary Mayes Primary Care Provider DO Paloma Vazquez Attending Provider MD Zachary Mayes Primary Care Provider MD Jackie Reardon Attending Provider [phone] DO Jack Woods Attending Provider Paloma Vazquez DO Unavailable [phone] [facility] [phone] [place] [facility], [facility] Provider Jack Woods DO Attending Provider [phone] Unavailable Primary Care Provider Unavailcasimiro e Zachary Mayes Primary Care Unavailable Jackie Reardon Admitting Unavailable Jackie Reardon Attending Unavailable Peggy, Jack Attending Unavailable Zachary Mayes R Primary Care Unavailable Peggy, Jack Admitting Unavailable Peggy, Jack Attending Unavailable Peggy, Jack Admitting Unavailable Zachary Mayes R Primary Care Unavailable Peggy, Jack Attending Unavailable Peggy, Jack Admitting Unavailable Zachary Mayes R Primary Care Unavailable Peggy, Jack Admitting Unavailable Zachary Mayes R Primary Care Unavailable Peggy, Jack Attending Unavailable Peggy, Jack Admitting Unavailable Zachary Mayes R Primary Care Unavailable Peggy, Jack Attending Unavailable Peggy, Jack Admitting Unavailable Zachary Mayes R Primary Care Unavailable Peggy, Jack Attending Unavailable Brown, Zachary R Primary Care Unavailable Peggy, Jack Admitting Unavailable Peggy, Jack Attending Unavailable Peggy, Jack Admitting Unavailable Peggy, Jack Attending Unavailable GUADALUPE PERES Attending Unavailable PEGGY, JACK R Referring Unavailable PEGGY, JACK R Referring Unavailable Alberto Mayes MD Primary Care Provider [phone] PEGGY, JACK R Referring Unavailable KAY BENTLEY Attending Unavailable PEGGY, JACK Referring Unavailable PEGGY, JACK Attending Unavailable PEGGY, JACK Attending Unavailable CALI, JAYLA Attending Unavailable PEGYG, JACK Attending Unavailable PEGGY, JACK Attending Unavailable CALI, JAYLA Attending Unavailable PEGGY, JACK Attending Unavailable CALI, JAYLA Attending Unavailable HAZEL ROMERO Attending Unavailable PEGGY, JACK Attending Unavailable Allergies Allergy ClassificationReported Allergen(s)Allergy TypeDate of OnsetReaction(s) Facility (20 sources)Cephalexin; Translations: [CEPHALEXIN]Drug Igmnkou77-68-4084[facility] (16 sources)predniSONE; Translations: [PREDNISONE]Drug Nmjmhia35-61-2196[facility] [place] (20 sources)Ciprofloxacin; Translations: [CIPROFLOXACIN]Drug Baodvao16-80-9266 Vomiting, GI intoleranceNOCox North (20 sources)PrednisonePropensity to adverse msailsikl72-81-6336Kfhxod [facility]iting[facility] (1 source)CephalexinDrug Gnphjkq36-61-1840WrtficqrrA[facility] (1 source)predniSONEDrug Usjniza22-41-0553TnpehzftcAdena Regional Medical Center Repository Medications Current Medications MedicationDrug Class(es)DatesSig (Normalized)Sig (Original)aspirin 81 mg oral tablet (20 sources)Platelet Aggregation Inhibitor, Nonsteroidal Anti-inflammatory Drug Start: 23-59-3706shsapzc 81 MG oral suspension 10/14/2023 Activeaspirin 81 mg chewable tablet Chew 1 tablet (81 mg total) and swallow in the morning. Active bisacodyl 10 mg rectal suppository (2 sources)Stimulant LaxativeStart: 10-08-2024 End: 57-48-0933dmlgijdhh (Dulcolax) 10 MG suppository Indications: Other constipation Insert 1 suppository (10 mg)into the rectum Daily for 4 days 4 suppository 10/08/2024 10/12/2024 Activedocusate sodium 100 mg oral capsule (20 sources) End: 48-73-8388uiee 1 capsule by mouth once dailydocusate sodium (Colace) 100 MG capsule Take 100 mg by mouth Daily 01/16/2025 DiscontinuedDoxylamine Succinate, Sleep, (UNISOM PO) (20 sources) End: 31-76-8078Ujxoevesuj Succinate, Sleep, (UNISOM PO) Take by mouth 01/16/2025 DiscontinuedDoxylamine Succinate, Sleep, (UNISOM PO) Take by mouth Active ethinyl estradiol 0.03 mg / ferrous fumarate 75 mg / norethindrone 1.5 mg oral tablet (1 source)Estrogentake 1 tablet by mouth once daily, then take 1.5-30 tablets by mouthnorethindrone-ethinyl estradiol-iron (AKIL FE 1.5/30) 1.5-30 MG-MCG tablet Take 1 tablet by mouth daily 0 Activeibuprofen 600 mg oral tablet (10 sources)Nonsteroidal Anti-inflammatory DrugStart: 09-04-2882ccvm 1 tablet by mouth every six hours as needed for painomeprazole 40 mg delayed release oral capsule (20 sources)Proton Pump InhibitorStart: 10-08-2024 End: 87-93-0912hxwh 1 capsule by mouth before mealtimeomeprazole (PriLOSEC) [address] capsule Indications: Gastroesophageal Reflux Disease , Heartburn Take 1 capsule (40 mg) by mouth in the morning. Take before meals. Do not crush or chew. 30 capsule 3 10/08/2024 01/16/2025 DiscontinuedStart: 09-19-2024 End: 69-20-1459drzh 1 capsule by mouth before mealtimeomeprazole (PriLOSEC) [address] capsule Indications: Gastroesophageal Reflux Disease , Heartburn Take 1 capsule (20 mg) by mouth in the morning. Take before meals. Do not crush or chew. 30 capsule 3 09/19/2024 10/08/2024 Discontinued (Reorder)ondansetron 4 mg oral tablet (20 sources)Serotonin-3 Receptor AntagonistStart: 73-48-1989hhcu 1 tablet by mouth every six hours as needed for nausea and nausea, then take 1 tablet by mouthevery six hours as needed for nausea and nauseaondansetron (Zofran) 4 MG tablet Indications: Gastroesophageal reflux in ([facility]) , Nausea and vomiting during ([facility]) Take 1 tablet (4 mg) by mouth every 6 (six) hours if needed for nausea or vomiting for up to 30 doses Take 1 tablet by mouth every 6 hours as needed for nausea. 30 tablet 3 11/20/2024 ActiveStart: 35-08-3851zunt 1 tablet by mouth every six hours as needed for nausea and nausea, then take 1 tablet by mouthevery six hours as needed for nausea and nauseaondansetron (Zofran) 4 MG tablet Indications: Gastroesophageal reflux in ([facility]) , Nausea and vomiting during ([facility]) Take 1 tablet (4 mg) by mouth every 6 (six) hours if needed for nausea or vomiting for up to 30 doses Take 1 tablet by mouth every 6 hours as needed for nausea. 30 tablet 3 09/19/2024 Activetake 1 tablet by mouth every eight hours as needed for nausea and vomitingondansetron (ZOFRAN) 4 mg tablet Take 1 tablet (4 mg total) by mouth every 8 (eight) hours as needed for nausea or vomiting. ActivePNV 97-pcrr-klmbemzhqqbo-dha 29 mg iron-1 mg -350 mg comb pack,tablet DR,capsule DR (2 sources)take 1 tablet by mouth in the morningPNV 39-looz-dfahxvmvqouo-dha 29 mg iron-1 mg -350 mg comb pack,tablet DR,capsule DR Take 1 tablet by mouth in the morning. Activepolysaccharide iron complex 391 mg oral capsule (5 sources)Start: 01-07-2025 End: 42-75-1462wfon 1 capsule by mouth once dailyiron polysaccharides (ProFe) 391.3 (180 Fe) MG capsule Indications: Second trimester ([facility]) Take 1 capsule (391.3 mg) by mouth Daily 30 capsule 6 01/07/2025 01/16/2025 DiscontinuedpredniSONE 20 mg oral tablet (1 source)Start: 02-62-7618ilci 1 tablet by mouth every twelve hoursprednisone 20 MG 1 tablet Orally BID for 5 Mar, ActivePrenatal Vit w/Ol-Vkdsbqomp-AD (PNV PO) (20 sources) Vit w/Mz-Mtmiaaaxc-ME (PNV PO) ActiveProgesterone 200 MG suppository (4 sources)Start: 09-05-2024 End: 99-78-4671Riyazrzilotr 200 MG suppository Indications: History of miscarriage Insert 200 mg into the vagina in the morning and 200 mg before bedtime. Do all this for 15 days. 30 suppository 3 09/05/2024 09/20/2024 Active Start: 02-14-2024 End: 06-19-0579Nunyipgvbsun 200 MG suppository Indications: History of miscarriage Insert 200 mg into the vagina in the morning and 200 mg before bedtime. 30 suppository 3 02/14/2024 03/15/2024 ActiveStart: 2024 End: 39-67-0755Xebphftwcgxu 200 MG suppository Indications: History of miscarriage Insert 200 mg into the vagina at bedtime Insert suppository vaginally every night at bedtime until 12 weeks gestation 30 suppository 3 2024 03/07/2024 Activepyridoxine hydrochloride 25 mg oral tablet (20 sources) End: 21-01-6505ipjz 1 tablet by mouth once dailypyridoxine (Vitamin B-6) 25 MG tablet Take 25 mg by mouth Daily 01/16/2025 DiscontinuedtraMADol hydrochloride 50 mg oral tablet (10 sources)Opioid AgonistStart: 97-27-0195fwdf 1 tablet by mouth every four to six hours as needed for pain Completed/Discontinued Medications MedicationDrug Class(es)DatesSig (Normalized)Sig (Original)acetaminophen 325 mg / HYDROcodone bitartrate 5 mg oral tablet (1 source)Opioid AgonistStart: 02-01-2019 End: 34-07-0026WEGEEehuqnk-acetaminophen (NORCO) 5-325 MG per tablet 1 tablet progesterone 200 mg oral capsule (1 source)Progesterone End: 59-88-2637erba 1 capsule by mouth in the morningprogesterone (PROMETRIUM) 200 mg capsule Take 1 capsule (200 mg total) by mouth in the morning. 11/12/2024 Discontinued Problems Active Problems Problem ClassificationProblemDateDocumented DateEpisodic/ChronicBenign neoplasm of uterus (2 sources)Leiomyoma of uterus, unspecified; Translations: [Leiomyoma of uterus, unspecified]Onset: 46-07-0516LigarhonJalzpms dysrhythmias (2 sources)Postural orthostatic tachycardia syndrome ; Translations: [POTS (postural orthostatic tachycardia syndrome)]67-18-9867LugbtuxZzxabkp dysrhythmias (12 sources)Palpitations; Translations: [Tachycardia]Onset: EpisodicContraceptive and procreative management (4 sources)Patient encounter status; Translations: [Encounter for procreative management, unspecified]20-21-9448IougnvgzSpxenwot mellitus without complication (2 sources)Abnormal glucose tolerance test; Translations: [Other abnormal glucose]95-17-8531ZpgrbeqbEgaanj infertility (2 sources)Female infertility; Translations: [Female infertility, unspecified] 25-56-4707QkpuqitMizobjmgmrsow and screening for infectious disease (2 sources)Exposure to sexually transmissible disorder; Translations: [Contact with and (suspected) exposure to infections with a predominantly sexual mode of transmission]90-31-5132QxinejupOayqxbnpg disorders (2 sources)Missed period; Translations: [Irregular menstruation, unspecified] Onset: 684472-52-8166XmxexczYqsgr complications of (5 sources)Gastroesophageal reflux disease in ; Translations: [Diseases of the digestive system complicating , unspecified trimester] 72-37-4229EbirwsmlXoldc complications of (1 source)Vomiting of , unspecified; Translations: [Unspecified vomiting of , unspecified as to episode of care or not applicable] 16-07-1663XkmdclmyAzwyw complications of (3 sources)Uterine fibroids affecting ; Translations: [Maternal care for benign tumor of corpus uteri, second trimester]10-73-0140OigqgcjlBlfix complications of (2 sources)Maternal care for benign tumor of corpus uteri, second trimester; Translations: [Maternal care for benign tumor of corpus uteri, second trimester] Onset: 05-82-8894ChiukcdtRagjs complications of (2 sources) size does not accord with dates; Translations: [Uterine size- date discrepancy, unspecified trimester]12-85-2372GraevvjkEkqsj connective tissue disease (4 sources)Pain in right lower limb; Translations: [Pain in right leg]02-26-2025 EpisodicOther endocrine disorders (2 sources)Disorder of endocrine system; Translations: [Endocrine disorder, unspecified]18-10-4342CkufthexWvuho female genital disorders (2 sources)Other specified conditions associated with female genital organs and menstrual cycle; Translations:[Other specified conditions associated with female genital organs and menstrual cycle]Onset: 93-07-6623YdkxlsggEuecn female genital disorders (2 sources)Vaginal discharge; Translations: [Other specified noninflammatory disorders of vagina]62-04-3640YiyruphoLyhda gastrointestinal disorders (2 sources)Constipation; Translations: [Other constipation]50-98-9355Jikwkbja Other gastrointestinal disorders (4 sources)Mass of uterine adnexa; Translations: [Other specified conditions associated with female genital organs and menstrual cycle]06-70-6383Gealwfru Other and delivery including normal (20 sources); Translations: [Encounter for supervision of normal , unspecified, unspecified trimester]25-82-0998VyednddlQqyia screening for suspected conditions (not mental disorders or infectious disease) (1 source)Encounter for other specified screening; Translations: [Encounter for other specified screening]Onset: 16-06-0830Rmnjzjub Other skin disorders (4 sources)Localized swelling of right lower limb; Translations: [Localized swelling, mass and lump, right lower limb]45-54-3104VswnzhbcNpqku skin disorders (2 sources)Localized swelling, mass and lump, right lower limb; Translations: [Localized swelling, mass and lump, right lower limb]Onset: 56-32-9197Byjipqkj Other upper respiratory infections (2 sources)Acute pharyngitis, unspecified; Translations: [Acute upper respiratory infection, unspecified]EpisodicResidual codes; unclassified (2 sources)H/O: miscarriage; Translations: [Personal history of other complications of , childbirth and the puerperium]78-46-9940Xmxawuhc Residual codes; unclassified (2 sources)Gestation period, 11 weeks; Translations: [11 weeks gestation of ]89-38-8965WlnjeequAbttuafe codes; unclassified (2 sources)Gestation period, 16 weeks; Translations: [16 weeks gestation of ]93-61-2292MozbzxaiActrpnrl codes; unclassified (1 source)16 weeks gestation of ; Translations: [16 weeks gestation of ]Onset: 69-12-5282IjoivcgwJanptrsj codes; unclassified (2 sources)Gestation period, 15 weeks; Translations: [15 weeks gestation of ]97-71-0456KszhrimsCeteeqfh codes; unclassified (2 sources)Gestation period, 19 weeks; Translations: [19 weeks gestation of ]10-05-2203MovpuxipSjrktfpi codes; unclassified (4 sources)Gestation period, 23 weeks; Translations: [23 weeks gestation of ]71-12-3319RfwctvgmQckbsrlj codes; unclassified (2 sources)Gestation period, 25 weeks; Translations: [25 weeks gestation of ]25-33-8817EtmgrozyJbtzncdw codes; unclassified (2 sources)26 weeks gestation of ; Translations: [26 weeks gestation of ]Onset: 69-88-4949BoalwrljTgwkazjx codes; unclassified (2 sources)Gestation period, 27 weeks; Translations: [27 weeks gestation of ]27-84-3695ZdldrovlKwkkjofp codes; unclassified (2 sources)Gestation period, 29 weeks; Translations: [29 weeks gestation of ]07-13-9504NskcsxhaFnramgjq codes; unclassified (2 sources)Gestation period, 31 weeks; Translations: [31 weeks gestation of ]24-97-2865RflareosVpnfhhc (4 sources)Syncope; Translations: [Syncope and collapse]Onset: 01-24-2025 30-48-0516BeffwvieUxyvfdansfvy (1 source)Enlarged & Heterogeneous Bilateral OvariesOnset: 11-12-2024 Past or Other Problems Problem ClassificationProblemDateDocumented DateEpisodic/ChronicAbdominal pain (1 source)Right lower quadrant pain; Translations: [Abdominal pain, right lower quadrant]EpisodicOther complications of (1 source)Supervision of with other poor reproductive or obstetric history, unspecified trimester; Translations: [Supervision of with other poor reproductive or obstetric history, unspecified trimester]Onset: 04-29-1503ZleofcveTiwmt female genital disorders (1 source)H/O gynecological disorder; Translations: [History of ovarian cyst] EpisodicResidual codes; unclassified (1 source)Personal history of other complications of , childbirth and the puerperium; Translations: [Personal history of other complications of , childbirth and the puerperium]Onset: 84-25-9577Rggsnpqu Results Test NameValueInterpretationReference RangeFacilityUS OB FOLLOW UP TRANSABDOMINAL APPROACHon 90-29-3435MY OB FOLLOW UP TRANSABDOMINAL APPROACH FINDINGS: A single, live intrauterine is present with normal cardiac rate of 147 beats per minute. Normal activity and amniotic fluid volume. Amniotic fluid index is 19.0 cm. The current sonographic age is 31 weeks and 1 days, based on the following measurements: BPD 7.6 cm (30 weeks, 4 days) Head Circumference 28.3cm ( 31weeks, 1 days) Abdominal Circumference 28.4cm (32 weeks, 3 days) Femur Length 5.8cm (31 weeks,2 days) Presentation Variable Weight (g) by Percentile 44.4 % * These measurements result in an estimated date of delivery of April 30, 2025. The current estimated weight is 1776 grams ( 3 pound, 15 ounces). A significant intramural fibroid is not visualized on this examination. IMPRESSION: 1. Single, live intrauterine , current sonographic age of 31 weeks and 1 days, with an estimated date of delivery of April 30, 2025. 2. Comparison made with September 19, 2024 delivery at that time was April 29, 2025. * Estimated Weight (g) by Percentile is based upon an accurate estimated age based on last menstrual period. TRANSCRIBED BY: ELECTRONICALLY SIGNED BY: Kash Yuan AvailableComment on above:Order Comment: US OB SCAN FOR GROWTH Estimated Date of Delivery: 04/29/25 Gestational Age as of 02/11/2025: 05t0rDkeqtizeps macro (dipstick) panel (U)on 19-88-1976Kdclhifpn, UANegativeNegative - 4(70) +++ mg/dLNOMS HealthcareBlood, UANegativeNegative - 50 Clarke/mcLNOMS HealthcareClarity, UAClearNOMS Healthcare Color, UAYellowNOMS HealthcareGlucose, UANegativeNegative - 2000(110) ++++ mg/dL NOMS HealthcareInterpretation and review of laboratory resultsAbnormalNOMS HealthcareKetones, UANegativeNegative - 160(16) ++++ mg/dLNOMS Healthcare Leukocytes, UA3+Negative - 500+++ Kamaljit/mcLNOMS HealthcareNitrite, UANegative Negative - PositiveNOMS HealthcarepH, UA6.05 - 9NOMS HealthcareProtein, UA1+ Negative - 2000(20) ++++ mg/dLNOMS HealthcareSpec Grav, UA1.0251 - 1.03NOMS HealthcareUrobilinogen, UA1.00.2 - 12 mg/dLNOMS HealthcareNOMS Healthcare Urinalysis macro (dipstick) panel (U)on 55-40-5891Vmgsaenmb, UANegativeNegative - 4(70) +++ mg/dLNOMS HealthcareBlood, UANegativeNegative - 50 Clarke/mcLNOMS HealthcareClarity, UAClearNOMS HealthcareColor, UAYellowNOMS HealthcareGlucose, UANegativeNegative - 2000(110) ++++ mg/dLNOMS HealthcareInterpretation and review of laboratory resultsAbnormalNOMS HealthcareKetones, UANegativeNegative - 160(16) ++++ mg/dLNOMS HealthcareLeukocytes, UA3+Negative - 500+++ Kamaljit/[facility] CenterNOCA HealthcareNitrite, UANegativeNegative - PositiveNOMS HealthcarepH, UA75 - 9NOMS HealthcareProtein, UANegativeNegative - 2000(20) ++++ mg/dLNOMS HealthcareSpec Grav, UA1.011 - 1.03NOMS HealthcareUrobilinogen, UA1.00.2 - 12 mg/dLNOMS HealthcareNOCA HealthcareGLUCOSE TOLERANCE 3 HOURon 24-62-9758BKESIZF TOLERANCE 3 HOURmg/dLNOMS HealthcareComment on above:GLU FAST 83 (<95) Col: 01/29/25 0802 GLU 1HR 163 (<180) Col: 01/29/25 0906 GLU 2HR 140 (<155) Col: 01/29/25 1005 GLU 3HR 121 (<140) Col: 01/29/25 1104 [facility] HealthcareUrinalysis macro (dipstick) panel (U)on 01-28-2025 Bilirubin, UANegativeNegative - 4(70) +++ mg/dLNOMS HealthcareBlood, UANegative Negative - 50 Clarke/mcLNOMS HealthcareClarity, UAClearNOMS HealthcareColor, UA YellowNOMS HealthcareGlucose, UANegativeNegative - 2000(110) ++++ mg/dLNOMS HealthcareInterpretation and review of laboratory resultsAbnormalTexas [facility] Hospital Ketones, UANegativeNegative - 160(16) ++++ mg/dLNOMS HealthcareLeukocytes, UA PositiveNegative - 500+++ Kamaljit/mcLNOMS HealthcareComment on above:3+Nitrite, UA NegativeNegative - PositiveNOMS HealthcarepH, UA6.55 - 9NOMS HealthcareProtein, UANegativeNegative - 2000(20) ++++ mg/dLNOMS HealthcareSpec Grav, UA1.011 - 1.03 NOMS HealthcareUrobilinogen, UA0.20.2 - 12 mg/dLNOCA HealthcareNOCA Healthcare GLUCOSE 1 HOURon 66-05-4501Secboxy [Mass/Vol]150 mg/dLHighNINF - 130 mg/dLNOCA HealthcareInterpretation and review of laboratory resultsAbnormEncompass Health [facility] HealthcareOffice Visiton 78-13-0424Yeakuz-up [id number] Daphney Al 2000 F Date Provider Department Center 01/24/2025 [id number] BENTLEY [facility] Family History Problem Relation Age of Onset Hypertension Father Family Status - Relation Status Age at Mother Alive Father Alive Level of Service:70870 [place] OFFICE/OUTPATIENT NEW LOW MDM 30 MINUTES Reason for Visit and Comments: New Patient [632] - Patient is here today as a new patient to establish care with cariology Syncope [506] Palpitations [799322] 26 weeks [Other][facility] ECHO DOPPLER COMPLETEon 44-86-7792[place]tn[place] [address] Cardiology Report Signed Patient: DAPHNEY AL MR#: [id number] : 2000 Acct:[id number] Age/Sex: 24 / F ADM Date: 01/20/25 Loc: CARD Attending Dr: Jayla Art Ordering Physician: Jayla Art Date of Service: 01/20/25 Procedure(s): CA echo doppler complete Accession Number(s): [id number] cc: Jayla Art; Alberto Mayes M.D. Patient Name: DAPHNEY AL MR#: [id number] : 2000 Exam Date: 01/20/2025 Ordering Doctor: [...] M.D. Signed By: 01/21/25958 DD/ 7 TD/TT: Outside Plant Technician:KELLYHRadiology, Radiologist, - 01/21/2025 [place] [address] Cardiology Report Signed Patient: DAPHNEY AL MR#: [id number] : 2000 Acct:[id number] Age/Sex: 24 / F ADM Date: 01/20/25 Loc: CARD Attending Dr: Jayla Art Ordering Physician: Jayla Art Date of Service: 01/20/25 Procedure(s): CA echo doppler complete Accession Number(s): [id number] cc: Jayla Art; Alberto Mayes M.D. Patient Name: DAPHNEY AL MR#: [id number] : 2000 Exam Date: 01/20/2025 Ordering Doctor: [...] M.D. Signed By: 01/21/25958 DD/ 7 TD/TT: Outside Plant Technician: [facility] HospitalRadiology Study observation (narrative)[facility] ECHO DOPPLER COMPLETEOrdered By: Radiologist Radiology on 44-12-6246TGCFTexas County Memorial Hospital Work Phone: Urinalysis macro (dipstick) panel (U)on 01-16-2025 Bilirubin, UANegativeNegative - 4(70) +++ mg/dLNOMS HealthcareBlood, UAPositive Negative - 50 Clarke/mcLNOCA HealthcareComment on above:3+Clarity, UAClearNOCA HealthcareColor, UAYellowNOCA HealthcareGlucose, UANegativeNegative - 1999(110) ++++ mg/dLLONE [facility] HealthcareInterpretation and review of laboratory resultsAbnormal [facility] HospitalKetones, UANegativeNegative - 160(16) ++++ mg/dLLONE PEAK [facility]ITAL Healthcare Leukocytes, UAPositiveNegative - 500+++ Kamaljit/mcLNOCA HealthcareComment on above: 2+Nitrite, UANegativeNegative - PositiveNOMS HealthcarepH, UA65 - 9NOMS HealthcareProtein, UAPositiveNegative - 2000(20) ++++ mg/dLNOCA HealthcareSpec Grav, UA1.021 - 1.03NOMS HealthcareUrobilinogen, UA1.00.2 - 12 mg/dLNOCA HealthcareNOMS HealthcareUrinalysis macro (dipstick) panel (U)on 01-07-2025 Bilirubin, UANegativeNegative - 4(70) +++ mg/dLNOMS HealthcareBlood, UANegative Negative - 50 Clarke/mcLNOMS HealthcareClarity, UAClearNOMS HealthcareColor, UA YellowNOMS HealthcareGlucose, UANegativeNegative - 2000(110) ++++ mg/dLNOMS HealthcareInterpretation and review of laboratory resultsAbnormalNOMS Healthcare Ketones, UANegativeNegative - 160(16) ++++ mg/dLNOMS HealthcareLeukocytes, UA PositiveNegative - 500+++ Kamaljit/mcLNOMS HealthcareComment on above:3+Nitrite, UA NegativeNegative - PositiveNOMS HealthcarepH, UA6.55 - 9NOMS HealthcareProtein, UANegativeNegative - 2000(20) ++++ mg/dLNOMS HealthcareSpec Grav, UA1.011 - 1.03 NOMS HealthcareUrobilinogen, UA0.20.2 - 12 mg/dLNOMS HealthcareNOMS Healthcare Urinalysis macro (dipstick) panel (U)on 29-98-8675Vwrqxbujs, UANegativeNegative - 4(70) +++ mg/dLNOMS HealthcareBlood, UANegativeNegative - 50 Clarke/mcLNOMS HealthcareClarity, UAClearNOMS HealthcareColor, UAYellowNOMS HealthcareGlucose, UANegativeNegative - 2000(110) ++++ mg/dLNOMS HealthcareInterpretation and review of laboratory resultsAbnormalNOMS HealthcareKetones, UANegativeNegative - 160(16) ++++ mg/dLNOMS HealthcareLeukocytes, UANegativeNegative - 500+++ Kamaljit/[facility] CenterNOCA HealthcareNitrite, UANegativeNegative - PositiveNOMS HealthcarepH, UA65 - 9NOMS HealthcareProtein, UANegativeNegative - 2000(20) ++++ mg/dLNOMS HealthcareSpec Grav, UA1.011 - 1.03NOMS HealthcareUrobilinogen, UA1.00.2 - 12 mg/dLNOMS HealthcareNOMS HealthcareUrinalysis macro (dipstick) panel (U)on 72-45-5965Xyoogaelj, UANegativeNegative - 4(70) +++ mg/dLNOMS HealthcareBlood, UANegativeNegative - 50 Clarke/mcLNOMS HealthcareClarity, UAClearNOMS Healthcare Color, UAYellowNOMS HealthcareGlucose, UANegativeNegative - 2000(110) ++++ mg/dL NOMS HealthcareInterpretation and review of laboratory resultsAbnormalNOMS HealthcareKetones, UANegativeNegative - 160(16) ++++ mg/dLNOMS Healthcare Leukocytes, UAPositiveNegative - 500+++ Kamaljit/mcLNOMS HealthcareComment on above: SmallNitrite, UANegativeNegative - PositiveNOMS HealthcarepH, UA75 - 9NOMS HealthcareProtein, UANegativeNegative - 2000(20) ++++ mg/dLNOMS HealthcareSpec Grav, UA1.011 - 1.03NOMS HealthcareUrobilinogen, UA1.00.2 - 12 mg/dLNOMS HealthcareNOMS HealthcareFetal Free Cell DNA (Non-[facility] Send Out)on 03-80-2685BxlWdecjv Health SystemPATHOLOGY REQUEST FOR LAB CORPon 11-12-2024 PATHOLOGY REQUEST FOR LAB CORPNOMS HealthcareComment on above:See report. Scanned copy available in EMR.SKIN TAGFIRELANDSNOMS HealthcareIGP,APTIMA HPV,AGE GDLNon 26-83-5322SUQ GDLN ACOG TESTINGNote.NOMS HealthcareComment on above: TESTS RESULT FLAG UNITS REF RANGE LAB Clinician Provided Cytology Information Source.............Cervix No. of containers..01 ThinPrep Vial Age Algo ACOG Nery... FLAG LEGEND: L-Low Normal,H-High Normal,LL-Alert Low,HH-Alert High <-Panic Low,>-Panic High,A-Abnormal,AA-Critical Abnormal Performed at: 01 =[address] [facility] [address] Gypsy Mtz MD, IGP, RFX APTIMA HPV ASCUNote.NOMS HealthcareComment on above:TESTS RESULT FLAG UNITS REF RANGE LAB DIAGNOSIS: 02 NEGATIVE FOR INTRAEPITHELIAL LESION OR MALIGNANCY. THIS SPECIMEN WAS RESCREENED PART OF OUR HYDRAULICS ENGINEER PROGRAM. Specimen adequacy: 02 Satisfactory for evaluation. Endocervical and/or squamous metaplastic cells (endocervical component) are present. Performed by: Fabio Rosen, Cartography/Mapping Technician ([facility]) QC reviewed by: Fabio Mahoney, Cartography/Mapping Technician ([facility]) . 02 Note: Note 02 The [...] <-Panic Low,>-Panic High,A-Abnormal,AA-Critical Abnormal Performed at: [address] [address] Gypsy Mtz MD, Performed at: =[facility] [id number] Discharge Planner: Gypsy Mtz MD, Phone: [phone] Performed at: [address] [id number] Discharge Planner: Gypsy Mtz MD, Phone: [phone] SPATULA-ALONE CERVIX CLINISYNCNOMS HealthcareRECURRENT VAGINITIS (HTRX)on 87-01-3444ITQXQPOXE VAGINAE 0NOMS HealthcareATOPOBIUM VAGINAENot detectedNOMS HealthcareBVAB 2,3 (BACTERIAL VAGINOSIS ASSOCIATED BACTERIA 2, 3); MOBILUNCUS MCO7RSNW HealthcareBVAB 2,3 (BACTERIAL VAGINOSIS ASSOCIATED BACTERIA 2, 3); MOBILUNCUS SPPNot detectedNOMS HealthcareCANDIDA ALBICANS, PARAPSILOSIS, XUXSTDAQVB1EHPG HealthcareCANDIDA ALBICANS, PARAPSILOSIS, TROPICALISNot detectedNOMS HealthcareCANDIDA GLABRATA0 NOMS HealthcareCANDIDA GLABRATANot detectedNOMS HealthcareCANDIDA NMMPDT4XIIE HealthcareCANDIDA KRUSEINot detectedNOMS HealthcareCHLAMYDIA MEKNUVDZYHP1XHUU HealthcareCHLAMYDIA TRACHOMATISNot detectedNOMS HealthcareGARDNERELLA VAGINALIS0 NOMS HealthcareGARDNERELLA VAGINALISNot detectedNOMS HealthcareMEGASPHAERA (TYPES 1, 2)0NOMS HealthcareMEGASPHAERA (TYPES 1, 2)Not detectedNOMS Healthcare MYCOPLASMA FYFJZUWKLQ1WOMB HealthcareMYCOPLASMA GENITALIUMNot detectedNOMS HealthcareNEISSERIA IZQBRPDQWHJ0MBVH HealthcareNEISSERIA GONORRHOEAENot detected NOMS HealthcareTRICHOMONAS CFHLXMVMK7KBMG HealthcareTRICHOMONAS VAGINALISNot detectedNOMS HealthcareNOMS HealthcarePathology Request for Lab Corpon 64-07-0876Ezxnfoxmv Request for Lab CorpNormC[facility] Clinic [facility] Comment on above:Order Comment: SKIN TAGResult Comment: See report. Scanned copy available in EMR. PERFORMED BY: [facility] [place] [address] PATHOLOGIST CONTROL PANEL OPERATOR JOSUÉ VALENZUELA M.D.Performed By: #### PROG #### [facility] ,Urinalysis macro (dipstick) panel (U)on 67-71-6292Toprrmcve, UANegativeNegative - 4(70) +++ mg/dLNOMS HealthcareBlood, UANegativeNegative - 50 Clarke/mcLNOMS HealthcareClarity, UAClearNOMS HealthcareColor, UAYellowNOMS HealthcareGlucose, UANegativeNegative - 1999(110) ++++ mg/dLNOMS HealthcareInterpretation and review of laboratory resultsNormalNOMS HealthcareKetones, UANegativeNegative - 160(16) ++++ mg/dLNOMS HealthcareLeukocytes, UANegativeNegative - 500+++ Kamaljit/mcL NOMS HealthcareNitrite, UANegativeNegative - PositiveNOMS HealthcarepH, UA5.55 - 9NOMS HealthcareProtein, UANegativeNegative - 2000(20) ++++ mg/dLNOMS HealthcareSpec Grav, UA1.021 - 1.03NOMS HealthcareUrobilinogen, UA1.00.2 - 12 mg/dLNOMS HealthcareNOMS HealthcareUrinalysis macro (dipstick) panel (U)on 32-94-1591Jqqeuifmj, UANegativeNegative - 4(70) +++ mg/dLNOMS HealthcareBlood, UANegativeNegative - 50 Clarke/mcLNOMS HealthcareClarity, UAClearNOMS Healthcare Color, UAYellowNOMS HealthcareGlucose, UANegativeNegative - 2000(110) ++++ mg/dL NOMS HealthcareInterpretation and review of laboratory resultsAbnormalNOMS HealthcareKetones, UANegativeNegative - 160(16) ++++ mg/dLNOMS Healthcare Leukocytes, UATraceNegative - 500+++ Kamaljit/mcLNOMS HealthcareNitrite, UANegative Negative - PositiveNOMS HealthcarepH, UA65 - 9NOMS HealthcareProtein, UANegative Negative - 2000(20) ++++ mg/dLNOCA HealthcareSpec Grav, UA1.021 - 1.03NOCA HealthcareUrobilinogen, UA0.20.2 - 12 mg/dLNOCA HealthcareNOMS HealthcareMLR HEMOGLOBIN A1Con 70-13-7786Otjltpk [Mass/Vol]100 mg/dLNOCA MfbnbzotoyPlZ9d (Bld) [Mass fraction]5.1 %4.5 - 6.2 %NOMS HealthcareComment on above:ADA RECOMMENDED LIMIT 4.0 - 6.0 ADA THERAPEUTIC TARGET < 7.0 ACTION SUGGESTED > 7.0 CLINISYNCNOCA HealthcareHCG ( test) Ql (U)on 49-71-7853Vmopareuwmsngr and review of laboratory resultsAbnormalNOMS HealthcarePreg Test, UrPositive NegativeNOSaint Francis Medical Center HealthcareUS OB TRANSVAGINALon 22-88-1348JF OB TRANSVAGINALEXAM: US OB TRANSVAGINAL HISTORY: Dating/viability. LMP 07/23/2024. [...] cm isoechoic lesion visualized, possibly representing an endometrioma.There is normal color Doppler flow. No fluid [...] a 2.3 cm isoechoic left- sided lesion, possiblyrepresenting an endometrioma. 3. Right ovarian corpus luteal cyst. Interpreted by: Electronically signed by MARKIE CRAWFORD II, MD, PHD at 22-Sep-2024 08:21:31 PM [facility] TeleradiologyNormalNot AvailableComment on above:Order Comment: US OB TRANSVAGINAL No LMP recorded.Urinalysis macro (dipstick) panel (U)on 11-60-1240Onvhbvykp, UA NegativeNegative - 4(70) +++ mg/dLNOMS HealthcareBlood, UANegativeNegative - 50 Clarke/mcLNOMS HealthcareClarity, UAClearNOMS HealthcareColor, UAYellowNOMS HealthcareGlucose, UANegativeNegative - 2000(110) ++++ mg/dLNOMS Healthcare Interpretation and review of laboratory resultsNormalNOMS HealthcareKetones, UA NegativeNegative - 160(16) ++++ mg/dLNOMS HealthcareLeukocytes, UANegative Negative - 500+++ Kamaljit/mcLNOMS HealthcareNitrite, UANegativeNegative - Positive NOMS HealthcarepH, UA75 - 9NOMS HealthcareProtein, UANegativeNegative - 2000(20) ++++ mg/dLNOMS HealthcareSpec Grav, UA1.021 - 1.03NOMS HealthcareUrobilinogen, UA0.20.2 - 12 mg/dLNOMS HealthcareNOMS HealthcareUS OB TRANSVAGINALon 08-28-2024 US OB TRANSVAGINALEXAM: US OB TRANSVAGINAL HISTORY: Missed menses, history [...] II, MD, PHD at 28-Aug-2024 11:25:24 PM [facility] TeleradiologyNormalNot AvailableComment on above:Order Comment: US OB TRANSVAGINAL No LMP recorded.TB PREG QUANT HCGon 26-67-8510UGT EAVEWOODVRIF1323jZI/mLNOMS HealthcareComment on above:5-50 0.2-1 WEEK 50-500 1-2 WEEKS 100-5,000 2-3 WEEKS 500-10,000 3-4 WEEKS 1,000-50,000 4-5 WEEKS 10,000-100,000 5-6 WEEKS 15,000-200,000 6-8 WEEKS 10,000-100,000 2-3 MONTHS CLINISYNCNOMS HealthcareTB PREG QUANT HCGon 28-31-5139KLQ HBPASSKBFXBT092dBE/mL NOMS HealthcareComment on above:5-50 0.2-1 WEEK 50-500 1-2 WEEKS 100-5,000 2-3 WEEKS 500-10,000 3-4 WEEKS 1,000-50,000 4-5 WEEKS 10,000-100,000 5-6 WEEKS 15,000-200,000 6-8 WEEKS 10,000-100,000 2-3 MONTHS CLINISYNCNOMS HealthcareTBH PREG QUANT HCGon 34-54-9536GFZ AVBMSUVBXHFM170iYH/mL NOMS HealthcareComment on above:5-50 0.2-1 WEEK 50-500 1-2 WEEKS 100-5,000 2-3 WEEKS 500-10,000 3-4 WEEKS 1,000-50,000 4-5 WEEKS 10,000-100,000 5-6 WEEKS 15,000-200,000 6-8 WEEKS 10,000-100,000 2-3 [facility]ANT HCGon 10-26-8791JVD OLXLLRMLACDX010rAW/mL NOMS HealthcareComment on above:5-50 0.2-1 WEEK 50-500 1-2 WEEKS 100-5,000 2-3 WEEKS 500-10,000 3-4 WEEKS 1,000-50,000 4-5 WEEKS 10,000-100,000 5-6 WEEKS 15,000-200,000 6-8 WEEKS 10,000-100,000 2-3 MONTHS [facility] PREG QUANT HCGon 89-33-0118WQV HATGLTZDCMPM74mSW/mL NOMS HealthcareComment on above:5-50 0.2-1 WEEK 50-500 1-2 WEEKS 100-5,000 2-3 WEEKS 500-10,000 3-4 WEEKS 1,000-50,000 4-5 WEEKS 10,000-100,000 5-6 WEEKS 15,000-200,000 6-8 WEEKS 10,000-100,000 2-3 MONTHS [facility] PREG QUANT HCGon 41-79-6099JVW GWYUQYNVDILX0cXF/mL NOMS HealthcareComment on above:5-50 0.2-1 WEEK 50-500 1-2 WEEKS 100-5,000 2-3 WEEKS 500-10,000 3-4 WEEKS 1,000-50,000 4-5 WEEKS 10,000-100,000 5-6 WEEKS 15,000-200,000 6-8 WEEKS 10,000-100,000 2-3 MONTHS [facility] PROGESTERONEon 37-08-2262MSWIMARVJSRF38.8 ng/mL.NOMS HealthcareComment on above:Follicular phase 0.1 - 0.9 Luteal phase 1.8 - 23.9 Ovulation phase 0.1 - 12.0 First trimester 11.0 - 44.3 Second trimester 25.4 - 83.3 Third trimester 58.7 - 214.0 Postmenopausal 0.0 - 0.1 Performed at: [address] [id number] Discharge Planner: Jordin Rao PhD, Phone: [phone] [facility]PITALEnerkemIAInari MedicalLake Regional [facility] PROGESTERONEon 01-20-8328RODCBSAAMZFC99.6 ng/mL.NOMS HealthcareComment on above:Follicular phase 0.1 - 0.9 Luteal phase 1.8 - 23.9 Ovulation phase 0.1 - 12.0 First trimester 11.0 - 44.3 Second trimester 25.4 - 83.3 Third trimester 58.7 - 214.0 Postmenopausal 0.0 - 0.1 Performed at: [address] [id number] Discharge Planner: Jordin Rao PhD, Phone: [phone] [facility] PREG QUANT HCGon 89-55-0927AFX QUANTITATIVE<1mIU/mL NOMS HealthcareComment on above:5-50 0.2-1 WEEK 50-500 1-2 WEEKS 100-5,000 2-3 WEEKS 500-10,000 3-4 WEEKS 1,000-50,000 4-5 WEEKS 10,000-100,000 5-6 WEEKS 15,000-200,000 6-8 WEEKS 10,000-100,000 2-[facility] PROGESTERONEon 93-27-6761YWEQJQNRHHZL58.9 ng/mL.NOMS HealthcareComment on above:Follicular phase 0.1 - 0.9 Luteal phase 1.8 - 23.9 Ovulation phase 0.1 - 12.0 First trimester 11.0 - 44.3 Second trimester 25.4 - 83.3 Third trimester 58.7 - 214.0 Postmenopausal 0.0 - 0.1 Performed at: [address] [id number] Discharge Planner: Jordin Rao PhD, Phone: [phone] [facility]ITALEnerkemFort [facility]oud[facility], [place] HEMOGLOBIN A1Con 13-06-9943Maggzyj [Mass/Vol]88 mg/dLTexas County Memorial HospitalHbA1c (Bld) [Mass fraction]4.7 %4.5 - 6.2 %[facility] Comment on above:ADA RECOMMENDED LIMIT 4.0 - 6.0 ADA THERAPEUTIC TARGET < 7.0 ACTION SUGGESTED > 7.0 CLINISYNCNOCA HealthcareChoriogonadotropin.beta subunit [Units/volume] in Serum or PlasmaOrdered By: Jack Woods on 80-14-0312QCI.beta subunit Qn4.96 m[IU]/mL [facility] CenterComment on above:Approximate Approximate hCG Gestational Age Range (mIU/ml) (weeks)0.2-1 5-50 1-2 50-500 2-3 100-5,000 3-4 500-10,000 4-5 1,000-50,000 5-6 10,000-100,000 6-8 15,000-200,000 8-12 10,000-100,000HCG,Quantitativeon 27-86-8207QHM,Quantitative4.96 m[iU]/mLNormal [facility] Physician GroupComment on above:Result Comment: Approximate Approximate hCG Gestational Age Range (mIU/ml) (weeks) 0.2-1 5-50 1-2 50-500 2-3 100-5,000 3-4 500-10,000 4-5 1,000-50,000 5-6 10,000-100,000 6-8 15,000-200,000 8-12 10,000-100,000 PERFORMED BY: [address] [place] [address] PATHOLOGIST CONTROL PANEL OPERATOR TO ANAYA M.D.Performed By: #### HCGQNT #### [place] [id number] USAChoriogonadotropin.beta subunit [Units/volume] in Serum or PlasmaOrdered By: Jack Woods on 20-93-7036DLE.beta subunit Qn108.32 m[IU]/mL [facility] Medical CenterComment on above:Approximate Approximate hCG Gestational Age Range (mIU/ml) (weeks)0.2-1 5-50 1-2 50-500 2-3 100-5,000 3-4 500-10,000 4-5 1,000-50,000 5-6 10,000-100,000 6-8 15,000-200,000 8-12 10,000-100,000HCG,Quantitativeon 02-70-2475FJD,Ibwwcznvocjc047.32 m[iU]/mLNormal [facility] Physician GroupComment on above:Result Comment: Approximate Approximate hCG Gestational Age Range (mIU/ml) (weeks) 0.2-1 5-50 1-2 50-500 2-3 100-5,000 3-4 500-10,000 4-5 1,000-50,000 5-6 10,000-100,000 6-8 15,000-200,000 8-12 10,000-100,000 PERFORMED BY: [place] [id number] PATHOLOGIST CONTROL PANEL OPERATOR TO ANAYA M.D.Performed By: #### HCGQNT #### [place] [address] USAChoriogonadotropin.beta subunit [Units/volume] in Serum or PlasmaOrdered By: Jack Woods on 08-47-2998MHT.beta subunit Uw3651.88 m[IU]/mL [facility] CenterComment on above:Approximate Approximate hCG Gestational Age Range (mIU/ml) (weeks)0.2-1 5-50 1-2 50-500 2-3 100-5,000 3-4 500-10,000 4-5 1,000-50,000 5-6 10,000-100,000 6-8 15,000-200,000 8-12 10,000-100,000HCG,Quantitativeon 54-87-1760CRQ,Hxsdwbrroyjs5854.88 m[iU]/mL NormalThe [facility] Hospital Physician GroupComment on above:Result Comment: Approximate Approximate hCG Gestational Age Range (mIU/ml) (weeks) 0.2-1 5-50 1-2 50-500 2-3 100-5,000 3-4 500-10,000 4-5 1,000-50,000 5-6 10,000-100,000 6-8 15,000-200,000 8-12 10,000-100,000 PERFORMED BY: [address] [address] PATHOLOGIST CONTROL PANEL OPERATOR TO ANAYA M.D.Performed By: #### HCGQNT #### [facility] [address] [place] [address] USAChoriogonadotropin.beta subunit [Units/volume] in Serum or PlasmaOrdered By: Jack Woods on 61-96-1652MGG.beta subunit Qn988.06 m[IU]/mL [facility] CenterComment on above:Approximate Approximate hCG Gestational Age Range (mIU/ml) (weeks)0.2-1 5-50 1-2 50-500 2-3 100-5,000 3-4 500-10,000 4-5 1,000-50,000 5-6 10,000-100,000 6-8 15,000-200,000 8-12 10,000-100,000HCG,Quantitativeon 70-79-3660OSN,Bjcfyywsxjgh715.06 m[iU]/mLNormal [facility] Physician GroupComment on above:Result Comment: Approximate Approximate hCG Gestational Age Range (mIU/ml) (weeks) 0.2-1 5-50 1-2 50-500 2-3 100-5,000 3-4 500-10,000 4-5 1,000-50,000 5-6 10,000-100,000 6-8 15,000-200,000 8-12 10,000-100,000 PERFORMED BY: [address] [address] PATHOLOGIST CONTROL PANEL OPERATOR TO ANAYA M.D.Performed By: #### HCGQNT #### [facility] [address] [place] [address] USAUS OB transvaginalon 23-76-5575JK OB transvaginalMEMORIAL HOSPITAL [facility] [address] [place] [address] Ultrasound Report Signed Patient: Daphney Al MR#: [id number] : 2000 Acct:[id number] Age/Sex: 23 / F ADM Date: 12/20/23 Loc: Room: Type: [facility] Attending Dr: Jack Woods DO Ordering Provider: Jack Woods Date of Service: 12/20/23 US/US OB <= 14 weeks fetus: N92.6 ([id number]) US/US OB transvaginal: N92.6 Copies to: Jack [...] Lisa Rojas M.D.12/20/2023 5:46 PM Dictation Location: [place] [address] Tech: Deb Real Transcribed By: FLETCHER 12/20/231745 Dictated By: Lisa Rojas MD 12/20/23 173 Signed By: 12/20/23 [facility] Physician GroupChoriogonadotropin.beta subunit [Units/volume] in Serum or PlasmaOrdered By: Jack Woods on 74-91-9311CGD.beta subunit Qn295.86 m[IU]/mLAdena Regional Medical CenterComment on above: Approximate Approximate hCG Gestational Age Range (mIU/ml) (weeks)0.2-1 5-50 1-2 50-500 2-3 100-5,000 3-4 500-10,000 4-5 1,000-50,000 5-6 10,000-100,000 6-8 15,000-200,000 8-12 10,000-100,000HCG,Quantitativeon 72-62-6242GXM,Quantitative 295.86 m[iU]/mLNNovant Health Brunswick Medical Center Physician GroupComment on above:Result Comment: Approximate Approximate hCG Gestational Age Range (mIU/ml) (weeks) 0.2-1 5-50 1-2 50-500 2-3 100-5,000 3-4 500-10,000 4-5 1,000-50,000 5-6 10,000-100,000 6-8 15,000-200,000 8-12 10,000-100,000 PERFORMED BY: [place] [address] PATHOLOGIST CONTROL PANEL OPERATOR TO ANAYA M.D.Performed By: #### HCGQNT #### [place] [address] USAChoriogonadotropin.beta subunit [Units/volume] in Serum or PlasmaOrdered By: Jack Woods on 40-04-0264MYC.beta subunit Qn135.80 m[IU]/mL [facility] CenterComment on above:Approximate Approximate hCG Gestational Age Range (mIU/ml) (weeks)0.2-1 5-50 1-2 50-500 2-3 100-5,000 3-4 500-10,000 4-5 1,000-50,000 5-6 10,000-100,000 6-8 15,000-200,000 8-12 10,000-100,000HCG,Quantitativeon 80-09-3294KSA,Xzrghuninngl423.80 m[iU]/mLNormal [facility] Physician GroupComment on above:Result Comment: Approximate Approximate hCG Gestational Age Range (mIU/ml) (weeks) 0.2-1 5-50 1-2 50-500 2-3 100-5,000 3-4 500-10,000 4-5 1,000-50,000 5-6 10,000-100,000 6-8 15,000-200,000 8-12 10,000-100,000 PERFORMED BY: [place] [address] PATHOLOGIST CONTROL PANEL OPERATOR TO ANAYA M.D.Performed By: #### HCGQNT #### [place] [address] USAChoriogonadotropin.beta subunit [Units/volume] in Serum or PlasmaOrdered By: ANT Reardon on 70-83-4175AOK.beta subunit Qn69.85 m[IU]/mLAdena Regional Medical CenterComment on above:Approximate Approximate hCG Gestational Age Range (mIU/ml) (weeks)0.2-1 5-50 1-2 50-500 2-3 100-5,000 3-4 500-10,000 4-5 1,000-50,000 5-6 10,000-100,000 6-8 15,000-200,000 8-12 10,000-100,000HCG,Quantitativeon 96-59-0253PNF,Yinpnhqxcyrl42.85 m[iU]/mL NormalThe [facility] Physician GroupComment on above:Result Comment: Approximate Approximate hCG Gestational Age Range (mIU/ml) (weeks) 0.2-1 5-50 1-2 50-500 2-3 100-5,000 3-4 500-10,000 4-5 1,000-50,000 5-6 10,000-100,000 6-8 15,000-200,000 8-12 10,000-100,000 PERFORMED BY: [place] [address] PATHOLOGIST CONTROL PANEL OPERATOR TO ANAYA M.D.Performed By: #### HCGQNT #### [place] [address] USAProgesteroneon 58-94-6541Wrwlxkniltua63.5 ng/mLNormal.The [facility] Physician GroupComment on above:Result Comment: Follicular phase 0.1 - 0.9 Luteal phase 1.8 - 23.9 Ovulation phase 0.1 - 12.0 First trimester 11.0 - 44.3 Second trimester 25.4 - 83.3 Third trimester 58.7 - 214.0 Postmenopausal 0.0 - 0.1 Performed at: [facility] [address] [id number] Discharge Planner: Jordin Rao PhD, Phone: [phone] PERFORMED BY: [place] [address] PATHOLOGIST CONTROL PANEL OPERATOR TO ANAYA M.D.Performed By: #### PROG #### [facility] ,Serum or plasma progesterone measurement (mass/volume)Ordered By: Jack Woods on 93-97-4864Plncdxywcdyq [Mass/Vol]26.5 ng/mL.[facility] Comment on above:Follicular phase 0.1 - 0.9 Luteal phase 1.8 - 23.9 Ovulation phase 0.1 - 12.0 First trimester 11.0 - 44.3 Second trimester 25.4 - 83.3 Third trimester 58.7 - 214.0 Postmenopausal 0.0 - 0.1Performed at: [facility] [address] [id number] Director: Jordin Muhammad, Phone: [phone].beta subunit [Units/volume] in Serum or PlasmaOrdered By: ANT Reardon on 37-46-9689MOH.beta subunit Qn12.64 m[IU]/mLAdena Regional Medical CenterComment on above:Approximate Approximate hCG Gestational Age Range (mIU/ml) (weeks)0.2-1 5-50 1-2 50-500 2-3 100-5,000 3-4 500-10,000 4-5 1,000-50,000 5-6 10,000-100,000 6-8 15,000-200,000 8-12 10,000-100,000HCG,Quantitativeon 06-25-3529JIR,Fydzyzbbszwv68.64 m[iU]/mL NormalThe [facility] Physician GroupComment on above:Result Comment: Approximate Approximate hCG Gestational Age Range (mIU/ml) (weeks) 0.2-1 5-50 1-2 50-500 2-3 100-5,000 3-4 500-10,000 4-5 1,000-50,000 5-6 10,000-100,000 6-8 15,000-200,000 8-12 10,000-100,000 PERFORMED BY: [place] [address] PATHOLOGIST CONTROL PANEL OPERATOR TO ANAYA M.D.Performed By: #### HCGQNT #### [address]Operative Reporton 33-10-8086Umfeleqwl Report [id number]#[id number] Medstar Good Samaritan HospitalQuick Strepon 03-21-2023S. pyogenes Org specific cx Ql (Throat)Negative [place] IZI-collecte Other Quick StrepNort IZI-collecte Other CB Auto Differentialon 80-41-7378Terqftvqx (Bld) [#/Vol]0.00 10*3/uLCity Hospital [place], KYBasophils/100 WBC (Bld)0 %0 - 2 %[facility] [place], KYDifferential TypeYEFisher-[facility] [place], KYEosinophils (Bld) [#/Vol] 0.20 10*3/[facility]- [place], USHAEosinophils/100 WBC (Bld)2 %0 - 5 %[facility]- [place], LAErythrocyte distribution width (RBC) [Ratio]12.6 %12.1 - 15.2 %[facility]- [place], USHAHematocrit (Bld) [Volume fraction]39.8 %36 - 46 %[facility]- [place], KYHemoglobin (Bld) [Mass/Vol]13.8 g/dL12 - 16 g/dLThe [facility]- [place], [place] Interpretation and review of laboratory resultsAbnormalThe [facility]- [place], [place] Lymphocytes (Bld) [#/Vol]1.70 10*3/[facility]- [place], KYLymphocytes/100 WBC (Bld)14 %Low15 - 40 %[facility]- [place], LAMCH (RBC) [Entitic mass]31.5 pg26 - 34 pgThe [facility]- [place], USHAMCHC (RBC) [Mass/Vol]34.6 g/dL31 - 37 g/dLThe [facility]- [place], USHAMCV (RBC) [Entitic vol]91.2 fL80 - 100 fLThe [facility]- [place], KYMonocytes (Bld) [#/Vol]0.60 10*3/[facility]- [place], USHAMonocytes/100 WBC (Bld)5 %4 - 8 % [facility], USHAPlatelet mean volume (Bld) [Entitic vol]NOT REPORTED6 - 12 fLThe [facility]- [place], KYPlatelets (Bld) [#/Vol]NOT REPORTEDMercy Health [facility], [place] Platelets (Bld) [#/Vol]287 10*3/[facility]- [place], KYRBC (Bld) [#/Vol]4.37 10*6/uL4 - 5.2 m/[facility]- [place], LARBC morphology finding Nom (Bld)NOT REPORTEDThe [facility]- [place], LASegmented neutrophils/100 WBC (Bld)79 %High47 - 75 % [facility]- [place], KYSegs Absolute9.50HighThe [facility]- [place], KYWBC (Bld) [#/Vol] 12.0 10*3/uLMercy Health [facility], [facility] (Bld) [#/Vol]NOT REPORTEDper 100 WBCMercy Health [facility]sburg Hospital, KYWBC MorphologyNOT REPORTEDMercy Health [facility], KYCBC with Diffon [id number]. Basophil0.00 k/uLNormal0.0-0.2MElyria Memorial HospitalComment on above:Performed By: #### CP, CDP #### [facility] [address] [id number] Discharge Planner: José Higgins.Neutrophil (Seg)9.50 k/uLHigh2.5-7.0[facility] Mercy HospitalComment on above:Performed By: #### CP, CDP #### [facility] [address] [place] [address] Discharge Planner: Maya Higgins Diff PerformedYESNormalOur Lady Of Mercy HospitalComment on above:Performed By: #### CP, CDP #### [facility] [address] [id number] Discharge Planner: Jonathan Chisholm MDBasophils/100 WBC (Bld)0 %Normal0-2MElyria Memorial HospitalComment on above:Performed By: #### CP, CDP #### [facility] [address] [id number] Discharge Planner: Jonathan Chisholm MDEosinophils (Bld) [#/Vol]0.20 10*3/uLNormal 0.0-0.4[facility] Mercy HospitalComment on above:Performed By: #### CP, CDP #### [facility] [address] [place], [place] [id number] Discharge Planner: CHRISTINE Higginsosinophils/100 WBC (Bld)2 %Normal0-5Our [facility] Mercy HospitalComment on above:Performed By: #### CP, CDP #### [facility] [address] [place], [place] [id number] Discharge Planner: Jonathan Chisholm MDErythrocyte distribution width (RBC) [Ratio]12.6 %Ydcpgb16.1-15.2MElyria Memorial HospitalComment on above:Performed By: #### CP, CDP #### [facility] [address] [id number] Discharge Planner: Jonathan Chisholm MDHematocrit (Bld) [Volume fraction]39.8 %Normal 36-46Our [facility] Mercy HospitalComment on above:Performed By: #### CP, CDP #### [facility] [address] [id number] Discharge Planner: Jonathan Chisholm MDHemoglobin (Bld) [Mass/Vol]13.8 g/dLNormal 12.0-16.0[facility] Mer[facility] HospitalComment on above:Performed By: #### CP, CDP #### [facility] [address] [id number] Discharge Planner: Jonathan Chisholm MDLymphocytes (Bld) [#/Vol]1.70 10*3/uLNormal 1.2-5.2MElyria Memorial HospitalComment on above:Performed By: #### CP, CDP #### [facility] [address] [place] [address] Discharge Planner: Jamie Higginsmphocytes/100 WBC (Bld)14 %Jig18-77ElnegOur Lady Of Mercy HospitalComment on above:Performed By: #### CP, CDP #### [facility] [address] [place] [id number] Discharge Planner: AWA Higgins (RBC) [Entitic mass]31.5 baQdzphj78-00NsuzzOur Lady Of Mercy HospitalComment on above:Performed By: #### CP, CDP #### [facility] [address] [place] [id number] Discharge Planner: Jonathan Phan, MDMCHC (RBC) [Mass/Vol]34.6 g/tKYxrtqf55-29FraaxOur Lady Of Mercy HospitalComment on above:Performed By: #### CP, CDP #### [facility] [address] [place] [address] Discharge Planner: MEETA HigginsCV (RBC) [Entitic vol]91.2 vNBwybpk58-486IbspzOur Lady Of Mercy HospitalCommarshfield medical center on above:Performed By: #### CP, CDP #### [facility] [address] [place] [address] Discharge Planner: MEETA Higginsonocytes (Bld) [#/Vol]0.60 10*3/uLNormal0.0-1.0 [facility] on above:Performed By: #### CP, CDP #### [facility] [address] [place] [address] Discharge Planner: MEETA Higginsonocytes/100 WBC (Bld)5 %Normal4-8Our [facility] Of Mercy HospitalCommarshfield medical center on above:Performed By: #### CP, CDP #### [facility] [address] [place] [address] Discharge Planner: Zachary Higginsophil (Seg)79 %Brie92-78EpftqOur Lady Of Mercy HospitalCommarshfield medical center on above:Performed By: #### CP, CDP #### [facility] [address] [place] [address] Discharge Planner: GAGE Higginslatelets (Bld) [#/Vol]287 10*3/mBVfiwhg487-967 [facility] HospitalCommarshfield medical center on above:Performed By: #### CP, CDP #### [facility] [address] [place] [address] Discharge Planner: Jonathan Chisholm MDRBC (Bld) [#/Vol]4.37 10*6/uLNormal4.0-5.2[facility]aton HospitalComment on above:Performed By: #### CP, CDP #### [facility] [address] [place] [address] Discharge Planner: RUDDY Higgins (Bld) [#/Vol]12.0 10*3/uLNormal4.5-13.5[facility] System HospitalComment on above:Performed By: #### CP, CDP #### [facility] [address] [place] [address] Discharge Planner: José Higgins.Imm.GranulocyteNOT REPORTEDNormal0.00-0.30 [facility] Mercy HospitalComment on above:Performed By: #### CP, CDP #### [facility] [address] [place] [address] Discharge Planner: Marlys Higginsture granulocytes (Bld) [#/Vol]NOT REPORTED Hayliy9WmkrbAdena Health System HospitalComment on above:Performed By: #### CP, CDP #### [facility] [address] [place] [address] Discharge Planner: NAHID Higgins AutomatedNOT REPORTEDNormalAdena Health System HospitalComment on above:Performed By: #### CP, CDP #### [facility] [address] [place] [address] Discharge Planner: John Higgins mean volume (Bld) [Entitic vol]NOT REPORTEDNormal6.0-12.0[facility] System HospitalComment on above:Performed By: #### CP, CDP #### [facility] [address] [place] [address] Discharge Planner: Estuardo Higginslets (Bld) [#/Vol]NOT REPORTEDNormalAdena Health System HospitalComment on above:Performed By: #### CP, CDP #### [facility] [address] [place] [phone] Discharge Planner: COURT Higgins morphology finding Nom (Bld)NOT REPORTED [facility] on above:Performed By: #### CP, CDP #### [facility] [address] [place] [address] Discharge Planner: RUDDY Higgins MorphologyNOT REPORTEDNormalOur Lady Of Mercy HospitalComment on above:Performed By: #### CP, CDP #### [facility] [address] [place] [address] Discharge Planner: HODAN [facility]ginsstew[facility] Metabolic Profon 02-01-2019(cont.)Normal [facility] on above:Result Comment: Average GFR for 20-29 years old: 116 mL/min/1.73sq m Chronic Kidney Disease: <60 mL/min/1.73sq m Kidney failure: <15 mL/min/1.73sq m eGFR calculated using average adult body mass. Additional eGFR calculator available at: http://www.[employer].Linktone/multiple_crcl_2012.htmPerformed By: #### CP, CDP #### [facility] [address] [place] [address] Discharge Planner: Jonathan Chisholm MDAlbumin [Mass/Vol]4.1 g/dLNormal3.5-5.2[facility] HospitalComment on above:Performed By: #### CP, CDP #### [facility] [address] [place] [address] Discharge Planner: Jonathan Chisholm MDAlkaline Phos63 U/MCtngqo16-098PrbzmCleveland Clinic Mercy Hospitalment on above:Performed By: #### CP, CDP #### [facility] [address] [place] [address] Discharge Planner: Jonathan Chisholm MDALT [Catalytic activity/Vol]8 U/LNormal5-33Our [facility] Of Mercy HospitalComment on above:Performed By: #### CP, CDP #### [facility] [address] [place] [address] Discharge Planner: Jonathan Chisholm MDAnion gap [Moles/Vol]12 mmol/LNormal9-17Our [facility] Of Mercy HospitalComment on above:Performed By: #### CP, CDP #### [facility] [address] [place] [phone] Discharge Planner: Jonathan Chisholm MDAST [Catalytic activity/Vol]13 U/LNormal<32Our [facility] Of Mercy HospitalComment on above:Performed By: #### CP, CDP #### [facility] [address] [place] [address] Discharge Planner: Jonathan Chisholm MDBilirubin Ql (U)0.40 mg/dLNormal0.30-1.20Our [facility] Of Mercy HospitalComment on above:Performed By: #### CP, CDP #### [facility] [address] [place] [address] Discharge Planner: Jonathan Chisholm MDBUN/CRE Vlzxp82Cciyix5-31Xvbyh [facility] Comment on above:Performed By: #### CP, CDP #### [facility] [address] [place] [phone] Discharge Planner: HODAN Higginsalcium [Mass/Vol]9.1 mg/dLNormal8.6-10.4Our [facility] Of Mercy HospitalComment on above:Performed By: #### CP, CDP #### [facility] [address] [place] [phone] Discharge Planner: HODAN Higginshloride [Moles/Vol]103 mmol/BEgddgk29-719KqronOur Lady Of Mercy HospitalCommarshfield medical center on above:Performed By: #### CP, CDP #### [facility] [address] [place], [place] [address] Discharge Planner: Jonathan Chisholm MDCO2 [Moles/Vol]24 mmol/YVnnmyd16-78Ljwtt Willard HospitalComment on above:Performed By: #### CP, CDP #### [facility] [address] [place], [place] 8[address]90 Discharge Planner: Jonathan Chisholm MDCreatinine [Mass/Vol]0.61 mg/dLNormal0.50-0.90 [facility] HospitalComment on above:Performed By: #### CP, CDP #### [facility] [address] [place] [phone] Discharge Planner: Jonathan Chisholm MDGFR, Amer>60Normal>60MerSt. Mary's Medical Center, Ironton Campus HospitalComment on above:Performed By: #### CP, CDP #### [facility] [address] [place] [phone] Discharge Planner: Jonathan Chisholm MDGFR,non Amer>60Normal>60MerSt. Mary's Medical Center, Ironton Campus HospitalComment on above:Performed By: #### CP, CDP #### [facility] [address] [place] [phone] Discharge Planner: Jonathan Chisholm MDGlucose [Mass/Vol]94 mg/oTRderqi71-96Nrwqa Willard HospitalComment on above:Performed By: #### CP, CDP #### [facility] [address] [phone] Discharge Planner: Jonathan Chisholm MDPotassium [Moles/Vol]3.8 mmol/LNormal3.7-5.3Mmedina hospitaly [facility]aton HospitalComment on above:Performed By: #### CP, CDP #### [facility] [address] [phone] Discharge Planner: Jonathan Chisholm MDProtein [Mass/Vol]7.1 g/dLNormal6.4-8.3[facility]aton HospitalComment on above:Performed By: #### CP, CDP #### [facility] [address] [place] [address] Discharge Planner: KARLENE Higginsodium [Moles/Vol]139 mmol/CBhdehg998-367SnxfsOur Lady Of Mercy HospitalComment on above:Performed By: #### CP, CDP #### [facility] [address] [place], [place] 7[address]90 Discharge Planner: Jonathan Chisholm MDUrea nitrogen [Mass/Vol]8 mg/dLNormal6-20Our [facility] Mercy HospitalComment on above:Performed By: #### CP, CDP #### [facility] [address] [place], [place] 9[address]90 Discharge Planner: Jonathan Chisholm MDAlbumin/Globulin [Mass ratio]NOT REPORTEDNormal 1.0-2.5Our [facility] Of Mercy HospitalComment on above:Performed By: #### CP, CDP #### [facility] [address] [place] [address] Discharge Planner: KARLENE Higginstaging:NOT REPORTEDNoClinton Memorial Hospital Comment on above:Performed By: #### CP, CDP #### [facility] [address] [place] [address] Discharge Planner: Jonathan Chisholm [facility] CITYomprehensive Metabolic Panelon 49-37-4334Iccbykw [Mass/Vol]4.1 g/dL3.5 - 5.2 g/dLMercy Health Perrysburg Hospital, KYAlbumin/Globulin [Mass ratio]NOT REPORTEDMercy Health Perrysburg Hospital, KYALP [Catalytic activity/Vol]63 U/L35 - 104 U/LMOhioHealth [facility]ide [facility] [place], KYALT [Catalytic activity/Vol]8 U/L5 - 33 U/[facility]- [place], KYAnion gap [Moles/Vol]12 mmol/L9 - 17 mmol/LMHarrison Community Hospital- [place], KYAST [Catalytic activity/Vol]13 U/L<32[facility] [place], KYBilirubin Ql (U)0.40 mg/dL 0.3 - 1.2 mg/dLThe [facility]- [place], KYBun/Cre Ggbqg83JkfqlMercy Health Perrysburg Hospital, KYCalcium [Mass/Vol]9.1 mg/dL8.6 - 10.4 mg/dLMercy Health Perrysburg Hospital, KYChloride [Moles/Vol]103 mmol/L98 - 107 mmol/LMOhioHealth [facility]ide [facility] [place], KYCO2 [Moles/Vol]24 mmol/L20 - 31 mmol/L [facility], KYCreatinine [Mass/Vol]0.61 mg/dL0.5 - 0.9 mg/dLMercy Health Perrysburg Hospital, KYGFR >60>60 mL/minCity Hospital [place], KYGFR Non->60>60 mL/minMercy Health Perrysburg Hospital, KYGFR/1.73 sq M predicted among non- blacks MDRD (S/P/Bld) [Vol rate/Area]NOT REPORTEDMercy Health Perrysburg Hospital, KYGFR/1.73 sq M predicted among non-blacks MDRD (S/P/Bld) [Vol rate/Area][facility], [place] Comment on above:Average GFR for 20-29 years old: 116 mL/min/1.73sq m Chronic Kidney Disease: <60 mL/min/1.73sq m Kidney failure: <15 mL/min/1.73sq m eGFR calculated using average adult body mass. Additional eGFR calculator available at: http://www.[employer]/multiple_crcl_2011.htm Glucose [Mass/Vol]94 mg/dL70 - 99 mg/dLMercy Health Perrysburg Hospital, KYPotassium [Moles/Vol] 3.8 mmol/L3.7 - 5.3 mmol/[facility], KYProtein [Mass/Vol]7.1 g/dL6.4 - 8.3 g/dLMercy Health Perrysburg Hospital, KYSodium [Moles/Vol]139 mmol/L135 - 144 mmol/LMAdena Fayette Medical Center, KYUrea nitrogen [Mass/Vol]8 mg/dL6 - 20 mg/dLMercy Health Perrysburg Hospital, [place] HCG, ,Urineon 12-01-9486Ppiq HCG ( test) Ql (U)NegativeNormal NEGOur Lady Of Mercy HospitalComment on above:Performed By: #### CHULA UHCG, UA #### [facility] [address] [place] [address] Discharge Planner: Jonathan Chisholm, MDMicroscopic Urinalysison 49-68-6839Chiannien, UA NOT REPORTEDNoneMercy Health- [place], KYBacteria, UA3+AbnormalNoneMercy Health- [place], KYCasts UANOT REPORTED/LPFMercy Health- [place], KYCrystals UANOT REPORTEDNone /HPF [facility]- [place], KYEpithelial Cells UA20 TO 50/HPFMercy Health- [place], [place] Interpretation and review of laboratory resultsAbnormalMercy Health- [place], [place] Mucus, UA2+AbnormalNoneMercy Health- [place], KYOther Observations UANOT REPORTEDNOT REQ.[facility]- [place], KYRBC (U) [#/Vol]2 TO 5[facility]- [place], KYRenal Epithelial, UrineNOT REPORTED0 /HPFMercy Health- [place], KYTrichomonas, UANOT REPORTEDNoneMercy Health- [place], KYWBC, UA2 TO 50 /HPFMercy Health- [place], KYYeast, UA NOT REPORTEDNoneMercy Health- [place], [place]-[facility]- [place], KYOtheron 02-01-2019 Immature granulocytes (Bld) [#/Vol]NOT REPORTEDMercy Health- [place], KYPregnancy, Urineon 24-28-3605Iihi HCG ( test) Ql (U)NegativeNEGATIVEMercy Health- [place], KYUrinalysison 27-78-4484Xghjvufaz UrineNegativeNEGATIVEMercy Health- [place], [place] Color, UAYELLOWYELLOWMercy Health- [place], KYGlucose, UrNegativeNEGATIVEMercy Health- [place], KYInterpretation and review of laboratory resultsAbnormalMercy Health- [place], KYKetones Ql (U)TRACEAbnormalNEGATIVEMercy Health- [place], KYLeukocyte esterase Test strip Ql (U)NegativeNEGATIVEMercy Health- [place], KYNitrite, Urine NegativeNEGATIVEMercy Health- [place], KYpH, UA6.0[facility]- [place], KYProtein (U) [Mass/Vol]1+AbnormalNEGATIVEMercy Health- [place], KYSpecific Howard, UA1.020[facility]- [place], KYTurbidity UACLEARCLEARMercy Health- [place], KYUrinalysis CommentsMercy Health Perrysburg Hospital, KYUrine Hgb3+AbnormalNEGATIVEMercy Health [facility]sburg Hospital, KYUrobilinogen, UrineNormalNormalMercy Health [facility] Hospital, KYUrinalysis, Routineon 95-14-2043Qntbovrdqcc Acid,UrTRACEAbnormalNEGMercy Noxubee General HospitalComment on above:Performed By: #### [place]ICA[place], [facility] [place] #### [facility] [address] [place] [address] Discharge Planner: Jonathan Chisholm MDBilirubin, SemiQt,UrNegativeNormalSelect Medical Special[facility] [place] on above:Performed By: #### UMICANeville, [facility] [place] #### [facility] [address] [place] [address] Discharge Planner: HODAN Higginsolor (U)YELLOWNormSelect Medical Specialty Hospital [facility] [place] Comment on above:Performed By: #### [place], [facility] [place] #### [facility] [address] [place] [address] Discharge Planner: HODAN HigginsommentNormWood County Hospital on above:Performed By: #### UMICANeville, [facility] [place] #### [facility] [address] [place] [address] Discharge Planner: Jonathan Chisholm MDGlucose Ql (U)NegativeNormalNEGOur Lady Of Mercy HospitalCommarshfield medical center on above:Performed By: #### UMICA[place], [facility] [place] #### [facility] [address] [place] [address] Discharge Planner: Jonathan Chisholm MDHemoglobin, Ur3+AbnormalSelect Medical [facility] Comment on above:Performed By: #### UMICA[place], [facility] [place] #### [facility] [address] [place] [address] Discharge Planner: Jonathan Chisholm MDLeukocyte esterase Test strip Ql (U)Negative NormalSelect Medical [facility] Clinic Rehabilitation Hospital, Edwin ShawComment on above:Performed By: #### CHULA [facility] [place] #### [facility] [address] [place] [address] Discharge Planner: Rian Higginsite,UrNegativeNormalSelect Medical [facility] Comment on above:Performed By: #### [place] [facility] [place] #### [facility] [address] [place] [address] Discharge Planner: Gage Higgins (U)6.0 [pH]Normal5.0-8.0[facility] Comment on above:Performed By: #### [place] [facility] [place] #### [facility] [address] [place], [place] [address] Discharge Planner: GAGE Higginsrotein Ql (U)1+AbnormalSelect Medical [facility] Comment on above:Performed By: #### [facility] [facility] [place] #### [facility] [address] [place] [address] Discharge Planner: KARLENE Higginspecific gravity (U) [Rel density]1.020Normal 1.005-1.030Our [facility] Mer[facility] HospitalComment on above:Performed By: #### [place] [facility] [place] #### [facility] [address] [place] [address] Discharge Planner: Jonathan Chisholm MDTurbidityCLEARNormalCSelect Medical Specialty [facility] [place] Comment on above:Performed By: #### [place] [facility] [place] #### [facility] [address] [place] [address] Discharge Planner: Jonathan Chisholm MDUrobilinogen,UrNormalNormalNORMOur Lady Of Mercy HospitalComment on above:Performed By: #### [place] [facility] [place] #### [facility] [address] [place] [address] Discharge Planner: Jonathan Chisholm MDUrinalysis,Dearborn Heightson 02-01-2019-----NormalMercy Boca Raton HospitalComment on above:Performed By: #### [place] [facility] [place] #### [facility] [address] [place] [address] Discharge Planner: Jonathan Chisholm MDBacteria LM.HPF (Urine sed) [#/Area]3+Abnormal NONEAdena Health System HospitalComment on above:Performed By: #### BINH, [facility] [place] #### [facility] [address] [place] [address] Discharge Planner: Jonathan Chisholm MDEpithelial cells LM.HPF (Urine sed) [#/Area]20 TO 50NormalAdena Health System HospitalComment on above:Performed By: #### [place] [facility] [place] #### [facility] [address] [place] [address] Discharge Planner: MEETA Higginsucus Strands2+AbnormalNONEMeACMC Healthcare System Glenbeigh Comment on above:Performed By: #### [place] [facility] [place] #### [facility] [address] [place] [address] Discharge Planner: COURT Higgins (U) [#/Vol]2 TO 3Plbakb7-4Egnwy [facility] [facility] HospitalComment on above:Performed By: #### [place] [facility] [place] #### [facility] [address] [place] [address] Discharge Planner: RUDDY Higgins (U) [#/Vol]2 TO 8Jinlst1Cnqij [facility] [facility] HospitalComment on above:Performed By: #### [place] [facility] [place] #### [facility] [address] [place] [address] Discharge Planner: Kevan Higginsrphoudustin sediment LM Ql (Urine sed)NOT REPORTED NormalNONEMeProtestant Hospital HospitalComment on above:Performed By: #### UMICAO, [facility] [place] #### [facility] [address] [place] [address] Discharge Planner: HODAN Higginsasts LM.LPF (Urine sed) [#/Area]NOT REPORTED NormalMercy Boca Raton HospitalComment on above:Performed By: #### [facility] [facility] [place] #### [facility] [address] [place] [address] Discharge Planner: HODAN Higginsrystals LM Nom (Urine sed)NOT REPORTEDNormalNONE [facility] HospitalComment on above:Performed By: #### [facility] [facility] [place] #### [facility] [address] [place] [address] Discharge Planner: Jonathan Chisholm MDEpithelial, RenalNOT YECTACIFAsltel3Mxnzr [facility] [facility] HospitalComment on above:Performed By: #### CHULA, [facility] [place] #### [facility] [address] [place] [address] Discharge Planner: Jonathan Chisholm MDOther ObservationsNOT REPORTEDNormalNREQMerSt. Mary's [facility] Center, [facility] Campus HospitalComment on above:Performed By: #### UMICANeville [facility] [place] #### [facility] [address] [place] [address] Discharge Planner: Jonathan Chisholm MDTrichomonasNOT REPORTEDNormalNONEMeProtestant Hospital HospitalComment on above:Performed By: #### UMICAO, [facility] [place] #### [facility] [address] [place] [address] Discharge Planner: Baljeet Higginsast LM Ql (Urine sed)NOT REPORTEDNormalNONE [facility] HospitalComment on above:Performed By: #### CHULA, [facility] [place] #### [facility] [address] [place] [address] Discharge Planner: Jonathan Chisholm MD Vital Signs Date TimeVital SignValuePerforming IxtelhalzQmpchhmd20-20-0150 14:14-0400Body mass index (BMI) [Ratio]30.67 kg/t9Oeayh Peggy DO Work Phone: [phone])[address] [place], [place] 1566510-14-2025 14:14-0400Body ekqzal93.18 kgCorey Peggy DO Work Phone: [phone])[facility] [place], [place] [address]Pvatzjdukv42-38-1505 14:14-0400Diastolic blood yfyutpcd89 mm[Hg]Jack Peggy DO Work Phone: 1(538)[facility] [place], [place] [address]Jvsaggpvou29-28-1103 14:14-0400Systolic blood cuschmik808 mm[Hg]Jack Peggy DO Work Phone: [phone])[address] [place], [place] 1566509-30-2025 09:59-0400Body mass index (BMI) [Ratio]30.18 kg/a9Lucublda Heather DAM OPERATOR Work Phone: [phone])[facility] [place], [place] [address]Lpmarrhevl41-89-7998 09:59-0400Body wylpex71.82 kgKrvenancioa Heather DAM OPERATOR Work Phone: [phone])[facility] [place], [place] [address]Tjviphicnj45-67-8678 09:59-0400Diastolic blood xmnkqtop48 mm[Hg]Hazel Heather DAM OPERATOR Work Phone: 1([phone])[address] [place], [place] 1566509-30-2025 09:59-0400Systolic blood kgalhtoj910 mm[Hg]Hazel Heather DAM OPERATOR Work Phone: [phone])[facility] [place], [place] [address]Uwmydvmlde37-08-3593 08:54-0400Body mass index (BMI) [Ratio]30.22 kg/m2Jayla DA SILVA Work Phone: 1(295)[facility] [place], [place] [address]Oaqxpsopri34-48-6118 08:54-0400Body ubnnhx96.94 kgJayla DA SILVA Work Phone: [phone])[address] [place] [address]-16-2025 08:54-0400Diastolic blood bhmqstbo41 mm[Hg]Jayla DA SILVA Work Phone: 1(857)[facility] [place], [place] [address]Ufhbknwhjj70-33-3159 08:54-0400Systolic blood gtwlxzjy657 mm[Hg]Jayla DA SILVA Work Phone: [phone])949-[address] [place], [place] [address]Nsnxatdoyx25-61-2328 09:38-0400Body mass index (BMI) [Ratio]29.67 kg/u2Ffszk Peggy DO Work Phone: 1(814)[facility] [place], [place] [address]Iojrcfpbjg16-46-5018 09:38-0400Body .37 kgCorey Peggy DO Work Phone: [phone])[facility] [place], [place] [address]Ycdvqoyszh52-40-8794 09:38-0400Diastolic blood rafbsqie62 mm[Hg]Jack Peggy DO Work Phone: 1(833)[facility] [place], [place] [address]Cukeinoyto07-50-6823 09:38-0400Systolic blood ufbvcbzm951 mm[Hg]Jack Peggy DO Work Phone: 1(323)[facility] [place], [place] [address]Aynysyhjob39-99-7779 14:30-0400Body mass index (BMI) [Ratio]29.83 kg/h3Xzfrl Peggy DO Work Phone: 1(585)[facility] [place], [place] [address]Fdxwfnpnbp36-73-3576 14:30-0400Body .83 kgCorey Peggy DO Work Phone: 1(645)[facility] [place], [place] [address]Ytznumnzeg13-76-8003 14:30-0400Diastolic blood khwernqh51 mm[Hg]Jack Peggy DO Work Phone: 1(019)[facility] [place], [place] [address]Melhihlegw50-44-5870 14:30-0400Systolic blood mm[Hg]Jack Peggy DO Work Phone: 1(113)[facility] [place], [place] [address]Nppazsvuvq56-48-2629 13:26-0400Body mass index (BMI) [Ratio]28.29 kg/m2Jayla DA SILVA Work Phone: [phone] [place], [place] [address]Lsrelpnqwi25-25-2723 13:26-0400Body rukwes20.49 kgJayla DA SILVA Work Phone: 1(370)548-[address] [place], [place] [address]Evudyxruuk20-13-2398 13:26-0400Diastolic blood umniildd77 mm[Hg]Jayla DA SILVA Work Phone: 1(047)[address] [place], [place] 1566507-22-2025 13:26-0400Systolic blood ieibclam986 mm[Hg]Jayla DA SILVA Work Phone: 1(670)[address] [place], [place] 1566507-01-2025 08:47-0400Body izgnxw242.6 cmGuadalupe Peres MD Work Phone: 1(103)[address] [place], [place] 5005407-01-2025 08:47-0400Body mass index (BMI) [Ratio]27.48 kg/m2Guadalupe Peres MD Work Phone: 1(071)[address] [place], [place] 5005407-01-2025 08:47-0400Body hpowvr93.2 kgGuadalupe Peres MD Work Phone: 1(975)[address] [place], [place] 5005407-01-2025 08:47-0400Diastolic blood tjpqcqqi47 mm[Hg]Guadalupe Peres MD Work Phone: 1(176)[address] [place], [place] 5005407-01-2025 08:47-0400Heart rate 90 /Zahra Peres MD Work Phone: 1(729)[address] [place], [place] 5005407-01-2025 08:47-0400Systolic blood mm[Hg]Guadalupe Peres MD Work Phone: 1(458)[address] [place], [place] 5005406-24-2025 14:10-0400Body mass index (BMI) [Ratio]27.02 kg/q6Kawkw Peggy DO Work Phone: 1(727)[address] [place], [place] 1566506-24-2025 14:10-0400Body .93 kgCorey Peggy DO Work Phone: 1(882)[address] [place], [place] 1566506-24-2025 14:10-0400Diastolic blood efylcnta09 mm[Hg]Jack Peggy DO Work Phone: 1(685)[address] [place], [place] 1566506-24-2025 14:10-0400Systolic blood whauudfm865 mm[Hg]Jack Peggy DO Work Phone: [phone] [place], [place] 1566505-27-2025 14:35-0400Body mass index (BMI) [Ratio]27.41 kg/w6Jrknz Peggy DO Work Phone: [phone] [place], [place] [address]Tedxmnsfhm80-04-5954 14:35-0400Body zljpwi77.02 kgCorey Peggy DO Work Phone: [phone])[facility] [place], [place] [address]Ddtmsntsrd21-34-7469 14:35-0400Diastolic blood mm[Hg]Jack Peggy DO Work Phone: [phone])[facility] [place], [place] [address]Wudebmawtm54-05-7423 14:35-0400Systolic blood vsfedbuz063 mm[Hg]Jack Peggy DO Work Phone: [phone] [place], [place] 1566505-08-2025 13:34-0400Body mass index (BMI) [Ratio]26.95 kg/m2[facility]05-08-2025 13:34-0400Body avyrnv38.75 [facility]05-[facility]2025 13:34-0400Diastolic blood omufjreo42 mm[Hg][facility]05-08-2025 13:34-0400Systolic blood qaszqrpr699 mm[Hg][facility]11-27-2024 11:05-0500Body mass index (BMI) [Ratio]27.6 kg/o0Ddkox Peggy DO Work Phone: 1(371)[facility] [place], [place] [address]Wcloikodqk16-84-4226 11:05-0500Body .56 kgCorey Peggy DO Work Phone: 1(322)[facility] [place], [place] [address]Bkmshzuzfi25-79-4878 11:05-0500Diastolic blood bfjkogpf61 mm[Hg]Jack Peggy DO Work Phone: 1(802)[facility] [place] [address]-27-2024 11:05-0500Systolic blood vwawiyff721 mm[Hg]Jack Peggy DO Work Phone: [phone])[address] [place], [place] 1566509-24-2024 13:52-0400Body hquxir031.6 cmCorey Peggy DO Work Phone: 1(007)[facility] [place], [place] [address]Xaamnegatg36-70-3803 13:52-0400Body mass index (BMI) [Ratio]26.6 kg/c3Oymov Peggy DO Work Phone: [employer] Pdknewhwdb82-66-0560 13:52-0400Body zbfcer98.75 kgCorey Peggy DO Work Phone: NOCox NorthHehszmixzg66-56-6394 13:52-0400Diastolic blood uidsdssm73 mm[Hg]Jack Peggy DO Work Phone: noCox NorthTvaxrjvqge03-51-8890 13:52-0400Systolic blood mm[Hg]Jack Peggy DO Work Phone: noCox NorthEktdtlcpex52-77-0769 18:10-0500Body rugvfe172.64 cmAmbtony Anton Other [employer] Other 11-07-2023 18:10-0500Body mass index (BMI) [Ratio] 26.95 kg/m5IfkpvRina Anton Other [employer] Other 11-07-2023 18:10-0500Body rxsenusvwgr48.9 [degF]Rina Anton Other [employer] Other 11-07-2023 18:10-0500Body .75 kgRina Anton Other [employer] Other 11-07-2023 18:10-0500Respiratory rate18 /minRina Anton Other [employer] Other 11-07-2023 18:10-8474InG0% (BldA) [Mass fraction]97 % Rina Anton Other [employer] Other [id number] 06:41-0400BP Mmofrzztp38 mm[Hg][facility] [place]05-50-3551 06:41-0400BP Mrpacmwi620 mm[Hg][facility], UD03-04-5689 06:41-0400Pulse (Heart Rate)64 /min [facility], IO98-97-7354 04:30-0400Body Pfwkpkqrkfp38.01 [degF][facility], LJ11-14-5481 04:30-0400Body eiixgu66.92 kgMem[facility], LV36-28-2908 04:30-0400Pulse Hgeezlgx592 % [facility], QI71-48-5108 04:30-0400Respiratory Rate18 /min [facility], [place] Encounters Encounter DateEncounter TypeCare ProviderFacilityStart: 02-27-2025 End: 06-22-5666vrazwpnyzdFLYPT FAZIONot AvailableStart: 02-25-2025 End: 48-90-4247Kwkvfi flowsheetCorey Peggy DO Work Phone: [facility] OBGYNStart: 02-25-2025 End: 97-60-9933Ojrhwb flowsheetCorey Peggy DO Work Phone: [facility] OBGYNStart: 02-25-2025 End: 30-69-9334Nrvorcng flow sheetCorey Peggy DO Work Phone: [facility] OBGYNComment on above:Third trimester ([facility]); 31 weeks gestation of ([facility]); POTS (postural orthostatic tachycardia syndrome); Pain of right lower extremityStart: 02-25-2025 End: 89-13-8900kcodpbcigeBBKKS FAZIONot AvailableStart: 02-11-2025 End: 06-25-8743Kvzcoalázaro Romero NP Work Phone: [facility] [place] OBGYNStart: 02-11-2025 End: 64-65-0103Qqxldbshaina Romero NP Work Phone: [facility] [place] OBGYNStart: 02-11-2025 End: 56-52-9002Vhklessa flow sheetHazel Romero DAM OPERATOR Work Phone: [facility] [place] OBGYNComment on above: size inconsistent with dates ([facility]) (Primary Dx); Third trimester ([facility]); 29 weeks gestation of ([facility])Start: 02-11-2025 End: 00-30-3726ledbtvkyqcXLLSIRHA EBERLYNot AvailableStart: 01-29-2025 End: 61-98-1848Wmgadccfr Result EncounterJalya DA SILVA Work Phone: [facility] External Department UnsolicitedStart: 01-29-2025 End: 60-18-4175Sabdwxgxv Result EncounterJayla DA SILVA Work Phone: [facility] External Department UnsolicitedStart: 01-28-2025 End: 94-86-4303Gpkivl Izzy DA SILVA Work Phone: [facility] OBGYNStart: 01-28-2025 End: 04-94-7970Yeijkj flowsabhishekJayla DA SILVA Work Phone: [facility] OBGYNStart: 01-28-2025 End: 88-99-3057Pmcwvjgt flow Nathaniel DA SILVA Work Phone: [facility] [place] OBGYNComment on above:Second trimester ([facility]); 27 weeks gestation of ([facility]); Elevated glucose tolerance testStart: 01-28-2025 End: 10-65-7723qqcskezgpmVYD RAMPANot AvailableStart: 01-27-2025 End: 84-89-3197Ntfltusry Result EncounterCorey Peggy DO Work Phone: [facility] External Department UnsolicitedStart: 01-27-2025 End: 78-86-6355Jeyzhsclb Result EncounterCorey Peggy DO Work Phone: [facility] External Department UnsolicitedStart: 01-24-2025 End: 96-80-0365ijjilgyipiIJWABToledo Hospitaltart: 01-21-2025 End: 02-83-8171Hbhvhivai Result EncounterJayla DA SILVA Work Phone: NOFE External Department UnsolicitedStart: 01-21-2025 End: 89-65-0032Vjctmeucl Result EncounterJayla DA SILVA Work Phone: noms External Department UnsolicitedStart: 01-16-2025 End: 68-23-3182Clkcbp flowsheetCorey Peggy DO Work Phone: [facility] [place] OBGYNStart: 01-16-2025 End: 83-83-8009Angyji flowsheetCorey Peggy DO Work Phone: [facility] [place] OBGYNStart: 01-16-2025 End: 87-56-4734Qncprwwj flow sheetCorey Peggy DO Work Phone: [facility] [place] OBGYNComment on above:25 weeks gestation of ([facility]); Second trimester ([facility]); Palpitations; Syncope, unspecified syncope type; Gastroesophageal reflux in ([facility])Start: 01-16-2025 End: 02-28-2238fuicgtydsqWEEFW FAZIONot AvailableStart: 01-07-2025 End: 78-78-4518Ewsnxa Izzy DA SILVA Work Phone: [facility] [place] OBGYNStart: 01-07-2025 End: 26-07-1828Sgcxsx Izzy DA SILVA Work Phone: [facility] [place] OBGYNStart: 01-07-2025 End: 04-62-7011Bshnauib flow sheetJayla DA SILVA Work Phone: [facility] [place] OBGYNComment on above:Second trimester ([facility]); 23 weeks gestation of ([facility]); Palpitations; TachycardiaStart: 01-07-2025 End: 90-19-7485qdgzppemoxZYW Eduardo AvailableStart: 12-31-2024 End: 82-56-2535Jgucuxpp flow sheetCorey Peggy DO Work Phone: [facility] OBGYNComment on above:Second trimester ([facility]); 23 weeks gestation of ([facility]); Diabetes mellitus screeningStart: 12-31-2024 End: 58-95-6200knvtqbirieUCQDI FAZIONot AvailableStart: 12-31-2024 End: 83-28-9135Lzsewt flowsheetCorey Peggy DO Work Phone: [facility] [place] OBGYNStart: 12-31-2024 End: 42-45-2477Ghcbwt flowsheetCorey Peggy DO Work Phone: [facility] [place] OBGYNStart: 12-10-2024 End: 51-43-1942mzgydbtcweQYLMK R FAZIOProMedica Banner [facility] HospitalStart: 12-03-2024 End: 41-89-5920Bpplhs flowsheetJayla DA SILVA Work Phone: [facility] OBStart: 12-03-2024 End: 79-62-4300Lgtreq flowsheetAmy Cali DA SILVA Work Phone: [facility] OBStart: 12-03-2024 End: 03-06-8256Oqigwcyj flow sheetAmy Cali PA Work Phone: [facility] BCP OBComment on above:Second trimester ([facility]); 19 weeks gestation of ([facility])Start: 12-03-2024 End: 55-86-2603aomyczoqjdPMN RAMEYNot AvailableStart: 11-12-2024 End: 25-43-9514Yhlfsn consultation new/estab patient 58 Zahra Peres MD Work Phone: [phone]-Uhcpi Medicine at [facility] Comment on above:Adnexal mass (Primary Dx); 16 weeks gestation of ; Uterine fibroids affecting in second trimester; Localized swelling of right lower extremityStart: 11-12-2024 End: 60-17-8251Xlitsk OnlyAmy Ward LPNMaternal- Medicine at [facility]onComment on above:Adnexal mass (Primary Dx); Uterine fibroids affecting in second trimester; Localized swelling of right lower extremityStart: 11-05-2024 End: 67-48-9730Aepwgu flowsheetCorey Peggy DO Work Phone: noms BCP OBStart: 11-05-2024 End: 30-93-4953Utoudh flowsheetCorey Peggy DO Work Phone: noms BCP OBStart: 11-05-2024 End: 53-96-1828Isohunwwc Result EncounterCorey Peggy DO Work Phone: noms External Department UnsolicitedStart: 11-05-2024 End: 29-80-0783Mrxhpdoa Result EncounterCorey Peggy DO Work Phone: noms External Department UnsolicitedStart: 11-05-2024 End: 62-93-9936Ecdysnu encounter procedureCorey Peggy DO Work Phone: [facility] Work Phone: Start: 11-05-2024 End: 77-53-5637Joernqod preventive med est patient 18-39 yrsCorey Peggy DO Work Phone: noms [facility] OBComment on above:Well woman exam with routine gynecological exam; Second trimester ([facility]); 15 weeks gestation of ([facility]); Vaginal discharge; STD exposureStart: 11-05-2024 End: 95-37-1669pegnrqjezzXortq FaSumma Health [facility] Campus Work Phone: Start: 11-05-2024 End: 70-13-8881Rzovwkfi ReferredCorey Peggy-LAB [facility] HospStart: 10-08-2024 End: 90-90-0371Mfpsxnri flow sheetCorey Peggy DO Work Phone: noms [facility] OBComment on above:11 weeks gestation of ; First trimester ; Other constipation; Gastroesophageal reflux in pregnancyStart: 10-08-2024 End: 71-47-4595gbahcnxytvANMFW FAZIONot AvailableStart: 10-08-2024 End: 31-33-6144Ksexbi flowsheetCorey Peggy DO Work Phone: [facility] OBStart: 10-08-2024 End: 92-84-9921Dbjzxs flowsheetCorey Peggy DO Work Phone: [facility] OBStart: 09-24-2024 End: 13-78-3282Dqguxvjou Result EncounterCorey Peggy DO Work Phone: [facility] External Department UnsolicitedStart: 09-24-2024 End: 84-91-4198Xahapavgy Result EncounterCorey Peggy DO Work Phone: [facility] External Department UnsolicitedStart: 09-19-2024 End: 29-45-8152Kbvyqt outpatient visit 5 minutesNoms Bcp Ob Peggy NurseNOMS BCP OBComment on above:GA: 2w5wEzdtl: 09-19-2024 End: 18-78-3248bdnexsguzdATFOP FAZIONot AvailableStart: 08-28-2024 End: 11-28-6337symuuyqgsdLSYSJ FAZIONot AvailableStart: 08-26-2024 End: 51-60-8112Hivmtbonb Result EncounterCorey Peggy DO Work Phone: [facility] External Department UnsolicitedStart: 08-26-2024 End: 02-60-0069Skmsdwqnv Result EncounterCorey Peggy DO Work Phone: [facility] External Department UnsolicitedStart: 08-24-2024 End: 01-85-9353Oiqbybrrz Result EncounterCorey Peggy DO Work Phone: [facility] External Department UnsolicitedStart: 08-24-2024 End: 71-18-3153Bmuburlmx Result EncounterCorey Peggy DO Work Phone: [facility] External Department UnsolicitedStart: 08-22-2024 End: 01-90-4593Kqaoztcfe Result EncounterCorey Peggy DO Work Phone: NOTC External Department UnsolicitedStart: 08-22-2024 End: 08-58-2076Vdwykpely Result EncounterCorey Peggy DO Work Phone: NOKR External Department UnsolicitedStart: 08-20-2024 End: 40-82-9606Nqxpsvzyi Result EncounterCorey Peggy DO Work Phone: NOSY External Department UnsolicitedStart: 08-20-2024 End: 14-71-1732Uxxbidstj Result EncounterCorey Peggy DO Work Phone: NOYP External Department UnsolicitedStart: 08-17-2024 End: 23-95-9764Mnrnfssxq Result EncounterCorey Peggy DO Work Phone: NOLE External Department UnsolicitedStart: 08-17-2024 End: 04-28-7845Dknlvozqc Result EncounterCorey Peggy DO Work Phone: NOAT External Department UnsolicitedStart: 08-15-2024 End: 12-92-4068Cbhpmkxjh Result EncounterCorey Peggy DO Work Phone: NOZK External Department UnsolicitedStart: 08-15-2024 End: 39-15-1847Tdxuzvjeu Result EncounterCorey Peggy DO Work Phone: NOVA External Department UnsolicitedStart: 06-14-2024 End: 18-98-1445Brtmhfham Result EncounterCorey Peggy DO Work Phone: NOZX External Department UnsolicitedStart: 06-14-2024 End: 22-33-9317Zrkgabjwt Result EncounterCorey Peggy DO Work Phone: NOM[facility] External Department UnsolicitedStart: 04-18-2024 End: 98-09-0116Tnglleers Result EncounterCorey Peggy DO Work Phone: NOM[facility] External Department UnsolicitedStart: 04-18-2024 End: 61-38-0741Xbizfgsok Result EncounterCorey Peggy DO Work Phone: noms External Department UnsolicitedStart: 04-10-2024 End: 96-60-7305Qfuyyu flowsheetCorey Peggy DO Work Phone: noms BCP OBStart: 04-10-2024 End: 98-67-8435Cizqtq flowsheetCorey Peggy DO Work Phone: [facility] BCP OBStart: 04-10-2024 End: 02-80-8213Skhbfx outpatient visit 15 minutesCorey Peggy DO Work Phone: NODH [facility] OBComment on above:Encounter for infertility; Hormone disorderStart: 04-10-2024 End: 62-32-7586vwavkcfreuVJVUR FAZIONot AvailableStart: 03-21-2024 End: 05-04-6124Kwllkxoqg Result EncounterCorey Peggy DO Work Phone: NOMS External Department UnsolicitedStart: 03-21-2024 End: 43-30-7743Kowlemjum Result EncounterCorey Peggy DO Work Phone: noms External Department UnsolicitedStart: 02-17-2024 End: 86-94-5490Vrynzkzcb Result EncounterCorey Peggy DO Work Phone: NOIX External Department UnsolicitedStart: 02-17-2024 End: 71-61-9160Dsftxuhzb Result EncounterCorey Peggy DO Work Phone: NOBI External Department UnsolicitedStart: 2024 End: 25-74-0286Xiibsakal Result EncounterCorey Peggy DO Work Phone: noms External Department UnsolicitedStart: 2024 End: 00-47-8225Rcfkaaafd Result EncounterCorey Peggy DO Work Phone: NOZA External Department UnsolicitedStart: 2024 End: 85-23-3247Eyuhjr outpatient visit 15 minutesCorey Peggy DO Work Phone: [facility] BCP OBComment on above:Female infertility; History of miscarriageStart: 01-05-2024 End: 97-04-2560Fbfmwuq encounter procedureMD Zachary Mayes Work Phone: [facility] Work Phone: Start: 01-05-2024 End: 02-30-7327dkvusbbinaWL Zachary Alvarez Gerber Work Phone: [phone] [place] [address] Ctr Work Phone: Start: 12-28-2023 End: 00-69-2198Zaaqcjm encounter procedureMD Zachary Mayes Work Phone: [phone] [place] [address] Ctr-Lab [facility] Work Phone: Start: 12-28-2023 End: 03-66-9097dbiieyxzabHB Zachary Mayes Work Phone: [facility] Work Phone: Start: 12-22-2023 End: 57-51-9760Wsculoz encounter procedureMD Zachary Mayes Work Phone: [phone] [place] [address] Ctr-Lab [facility] Work Phone: Start: 12-22-2023 End: 47-27-1418sptppuzxxoXE Zachary Mayes Work Phone: [phone] [place] [address] Ctr Work Phone: Start: 12-20-2023 End: 39-89-8670Etfydiz encounter procedureMD Zachary Mayes Work Phone: [facility]-Ultrasound [facility] Work Phone: Start: 12-20-2023 End: 68-34-6252ilijrjdenaFU Zachary Alvarez Gerber Work Phone: [facility] Work Phone: Start: 12-09-2023 End: 50-56-1980Dthpnve encounter procedureMD Zachary Mayes Work Phone: [facility] [place] Work Phone: Start: 12-09-2023 End: 46-79-4791tbbrqfjuqmDM Zachary Kim Mayes Work Phone: [facility] Work Phone: Start: 12-07-2023 End: 59-27-6694Fimsxux encounter procedureMD Zachary Mayes Work Phone: [phone] [place] [address] Medical Ctr-Lab [facility] Work Phone: Start: 12-07-2023 End: 65-63-5869bdhlbwutvmIF Zachary Alvarez Gerber Work Phone: [phone] [place] [address] Ctr Work Phone: Start: 12-05-2023 End: 03-03-9410Tdzzwjn encounter procedureMD Zachary Gerber Work Phone: [phone] [place] [address] Ctr-Lab [facility] Work Phone: Start: 12-05-2023 End: 24-21-8645erjbwijbllYJ Zachary Alvarez Gerber Work Phone: [phone] [place] [address] Ctr Work Phone: Start: 12-02-2023 End: 79-74-7254hruhkhzfkyQS Zachary Alvarez Gerber Work Phone: [phone] [place] [address] Ctr Work Phone: Start: 12-02-2023 End: 65-37-5210Aipivfx encounter procedureMD Zachary Gerber Work Phone: [facility] Work Phone: Start: 05-01-2023 End: 32-33-5710Ffonobmkz to same day surgery center Zachary Mayes Work Phone: [phone] [place] [address] Ctr-XRay [facility] Work Phone: Start: 05-01-2023 End: 93-95-1186ctcyvrsmlaWS Zachary Mayes Work Phone: [phone] [place] [address] Ctr Work Phone: Start: 03-21-2023 End: 35-21-4647rlrnnpaawsTrook Keller Other Nort IZI-collecte Other Start: 12-56-4253Ascdrl outpatient new 30 minutesAmbtony AntonFPG Urgent Care ClydeStart: 02-01-2019 End: 72-67-2940Pwjlkluaz department patient visitVESHUTZEL [facility] DIMITROVMercy Oceans [facility] Hospital Biloxitart: 02-01-2019 End: 87-71-9067Rroutwfmh department patient visitVesunited hospital center Dago Work Phone: [facility] EDComment on above:Abdominal pain, right lower quadrant (Primary Dx); History of ovarian cyst Procedures DateProcedureProcedure DetailPerforming ClinicianStart: 50-24-9033Klaxw dip stick/tablet rgnt non-auto w/o micrscpCorey Peggy DO Work Phone: Start: 01-53-3244Gdccy dip stick/tablet rgnt non-auto w/o micrscpKristina Heather PURCELL Work Phone: Start: 85-51-3199FFIIVZX TOLERANCE 3 HOURAmy Cali DA SILVA Work Phone: Start: 48-59-1539Uotrm dip stick/tablet rgnt non-auto w/o micrscpCorey Peggy DO Work Phone: Start: 64-13-8207IFVYGSH 1 HOURCorey Peggy DO Work Phone: Start: 03-42-2284BW ECHO DOPPLER COMPLETEAmy Cali DA SILVA Work Phone: Start: 10-19-2945Iswxd dip stick/tablet rgnt non-auto w/o micrscpCorey Peggy DO Work Phone: Start: 72-68-7537Gblsi dip stick/tablet rgnt non-auto w/o micrscpAmy Cali DA SILVA Work Phone: Start: 60-13-4119Nkyui dip stick/tablet rgnt non-auto w/o micrscpCorey Peggy DO Work Phone: Start: 35-88-4302Avuza dip stick/tablet rgnt non-auto w/o micrscpAmy Cali PA Work Phone: Start: 02-56-4197ILZYP FREE CELL DNA (NON-[facility] SEND OUT)Not In System Ref ProvStart: 18-53-9117GQNSCADFQ VAGINITIS (HTRX)Jack Peggy DO Work Phone: Start: 70-45-7943Bfeox dip stick/tablet rgnt non-auto w/o micrscpCorey Peggy DO Work Phone: Start: 16-24-3133ZZL,APTIMA HPV,AGE GDLNCorey Peggy DO Work Phone: Start: 97-80-9164EHYYGCKXH REQUEST FOR LAB CORPCorey Peggy DO Work Phone: Start: 82-16-1799Tqtts dip stick/tablet rgnt non-auto w/o micrscpCorey Peggy DO Work Phone: Start: 14-86-8434CXV HEMOGLOBIN L0ULoixf Peggy DO Work Phone: Start: 99-30-0759Zukpj dip stick/tablet rgnt non-auto w/o micrscpCorey Peggy DO Work Phone: Start: 96-60-7783XNM PREG QUANT HCGCorey Peggy DO Work Phone: Start: 31-71-9443UQS PREG QUANT HCGCorey Peggy DO Work Phone: Start: 47-67-5776MWT PREG QUANT HCGCorey Peggy DO Work Phone: Start: 10-91-1574DOU PREG QUANT HCGCorey Peggy DO Work Phone: Start: 03-84-2407KSZ PREG QUANT HCGCorey Peggy DO Work Phone: Start: 80-88-2307JCP PREG QUANT HCGCorey Peggy DO Work Phone: Start: 16-23-5095HDT PROGESTERONECorey Peggy DO Work Phone: Start: 84-78-9910URM PROGESTERONECorey Peggy DO Work Phone: Start: 15-78-8702XXJ PREG QUANT HCGCorey Peggy DO Work Phone: Start: 65-20-1719SQI PROGESTERONECorey Peggy DO Work Phone: Start: 73-97-9216QPJ HEMOGLOBIN K2ERvctq Peggy DO Work Phone: Start: 34-13-6554Xktphybklq ultrasound of gravid uterusMD Zachary Mayes Work Phone: Start: 07-46-7073Vemkbooffw microscopic onlyVESELIN DIMITROVStart: 61-30-4747Wogko test visual color cmprsn methsVESELIN DIMITROVStart: 61-15-0834Ffcxc dip stick/tablet rgnt auto w/o microscopyVESELIN DIMITROVStart: 48-15-8507Zmyxz count complete auto&auto difrntl wbcVESELIN DIMITROVStart: 23-07-8511Gckengqsnxkpo metabolic panelVESELIN DIMITROVStart: 06-56-8745Cningplknh microscopic onlyVeselin Dago Work Phone: start: 71-83-7082Ulazg test visual color cmprsn methsVeselin Dago Work Phone: start: 40-53-9966Ydxlr dip stick/tablet rgnt auto w/o microscopyVeselin Dago Work Phone: start: 59-64-1782Dthwo count complete auto&auto difrntl wbcVeselin Dago Work Phone: start: 33-14-8590Mgkmfolpgzjlr metabolic panelVeselin Dago Work Phone: Plan of Treatment DateCare ActivityDetailAuthorStart: 49-82-7939Ypieg BMI ScreeningAdult BMI ScreeningParkview Health Bryan Hospital SystemStart: 09-93-4596Oltpyma ScreeningTobacco ScreeningProSelect [facility] Southtart: 03-12-2025 End: 18-62-7339Manrplw encounter njyaehfql68/29/2025 2:40 PM EDT Routine [facility] HOPEGYAriel [address] [place], [id number] Hazel Romero, DAM OPERATOR [address] [place] [id number] [facility] OBGYNStart: 02-27-2025 End: 73-29-3333Mxiqrvtxazcr / ancillary services uwifubizsm51/16/2025 11:00 AM EDT Ancillary Procedure [facility]OPE[facility] [address] [place] [address] [facility] [place] OBGYNStart: 02-25-2025 End: 82-84-2712BW.doppler Lower extremity vein - rightVascular US lower extremity venous duplex right Imaging Routine Pain of right lower extremity Expected: 02/25/2025, Expires: 02/25/2026[facility] Work Phone: comment on above:Expected: 02/25/2025, Expires: 02/25/2026Start: 02-25-2025 End: 56-39-0974Gfxapnx encounter procedureNOMS [place] OBGYNComment on above: ArrivedStart: 02-19-2025 End: 56-07-5788Xmvgnlemewss / ancillary services hmwihazqlr09/08/2025 11:30 AM EDT Ancillary Procedure [facility] [address] [place] [address] [facility] [place] OBGYNStart: 02-11-2025 End: 46-55-5790RO for pregnancyUS OB follow up transabdominal approach Imaging Routine size inconsistent with dates ([facility]) Expected: 02/11/2025, Expires: 06/13/2025[facility] Work Phone: comment on above:Expected: 02/11/2025, Expires: 06/13/2025Start: 02-11-2025 End: 35-81-6462Opxbvtx encounter procedureNO aSchin OBGYNComment on above: ArrivedStart: 01-28-2025 End: 52-87-8437Lyztlrnfjps of glucose 3 hours after glucose challenge for glucose tolerance testGlucose tolerance, 3 hours Lab Routine Elevated glucose tolerance test Expected: 01/28/2025 (Approximate), Expires: 01/28/2026[facility] Work Phone: comment on above:Expected: 01/28/2025 (Approximate), Expires: 01/28/2026Start: 01-28-2025 End: 74-62-3106Aecwruo encounter procedureNOMS [place] OBGYNComment on above: ArrivedStart: 01-21-2025 End: 06-79-6102Wtydphk encounter twfzglizt03/09/2025 8:40 AM EDT Office Visit NOMDustin GALDAMEZ [address] [place] [id number] Jack Woods, DO [address] [place] [address] NOMDustin HOPEGYNStart: 01-16-2025 End: 83-46-8133Vpykipo encounter wtrbmucdk32/04/2025 9:20 AM EDT Office Visit RIMMA GALDAMEZ [address] [facility] [place] [phone] Jack Woods, DO [address] [place] [address] ArrivedNOMS [place] OBGYNComment on above:ArrivedStart: 85-08-2840Nzdqbycmt vaccinationInfluenza VaccineParkview Health Bryan Hospital SystemStart: 01-07-2025 End: lead ECGECG 12 lead unit performed ECG Routine Palpitations Expected: 01/07/2025 (Approximate), Expires: 01/07/2026[facility] Work Phone: comment on above:Expected: 01/07/2025 (Approximate), Expires: 01/07/2026Start: 01-07-2025 End: 26-50-1280Guvaegeohebtwl 2D completeEchocardiogram 2D complete Echocardiography Routine Palpitations Tachycardia Expected: 01/07/2025 (A pproximate), Expires: 01/07/2027[facility] HealthcareComment on above:Expected: 01/07/2025 (Approximate), Expires: 01/07/2027Start: 01-07-2025 End: 20-57-6202Bbpcupn encounter zjbyruiwe67/26/2025 1:50 PM EDT Office Visit RIMMA GALDAMEZ [address] [place] [phone] Jayla Art PA [address] [facility] [address] [place], [place] [id number] ArrivedNOMS [place] OBGYNComment on above:ArrivedStart: 12-31-2024 End: 52-86-4242Kkqhjgs encounter eebqxtapg59/19/2025 2:10 PM EDT Routine NOMDustin GALDAMEZ [address] [place], [id number] Jack Woods DO [address] [place], [place] [id number] ArrivedRIMMA [place] OBGYNComment on above:ArrivedStart: 12-31-2024 End: 80-23-7994QWR panel - Blood by Automated countCBC Lab Routine Diabetes mellitus screening Expected: 12/31/2024 (Approximate), Expires: 12/31/2025[facility] Work Phone: Comment on above:Expected: 12/31/2024 (Approximate), Expires: 12/31/2025Start: 12-31-2024 End: 70-71-2507Urqafqjkyjf of glucose 1 hour after glucose challenge for glucose tolerance testGlucose tolerance, 1 hour Lab Routine Diabetes mellitus screening Expected: 12/31/2024 (Approximate), Expires: 12/31/2025[facility] HealthcareComment on above:Expected: 12/31/2024 (Approximate), Expires: 12/31/2025Start: 12-10-2024 End: 86-62-3512Lzysdgy encounter yqpjdovig13/29/2025 1:30 PM EDT Appointment Maternal Medicine [place] [address] [place] [address] [facility] 12-[facility]-2024 End: 89-55-5836Zennqyk encounter procedureNOMS BCP OBComment on above:Second trimester ([facility])Start: 11-12-2024 End: 13-58-2470PD Pelvis WO contrastMR pelvis without contrast Imaging Routine Adnexal mass 16 weeks gestation of Expected: 11/12/2024, Expires: 11/12/2025[employer] Work Phone: Comment on above:Expected: 11/12/2024, Expires: 11/12/2025Start: 11-12-2024 End: 98-68-2977CL MFM with or without consultUS MFM with or without consult Imaging Routine Adnexal mass Uterine fibroids affecting insecond trimester Localized swelling of right lower extremity Expected: 11/12/2024, Expires: 11/12/2025[employer] Work Phone: Comment on above:Expected: 11/12/2024, Expires: 11/12/2025Start: 11-12-2024 End: 19-13-5453UM.doppler Lower extremity vein - rightVas venous duplex insufficiency lwr rt Vascular Ultrasound Routine Localized swelling of right lower extremity Expected: 11/12/2024, Expires: 11/12/[email or web address] Comment on above:Expected: 11/12/2024, Expires: 11/12/2025Start: 11-05-2024 End: 85-95-4618Qzsin fetoprotein, maternalAlpha fetoprotein, maternal Lab Routine Second trimester ([facility]) 15 weeks gestation of ([facility]) Expected: 11/05/2024 (Approximate), Expires: 05/07/2025[facility] Comment on above:Expected: 11/05/2024 (Approximate), Expires: 05/07/2025Start: 11-05-2024 End: 14-53-0695Hnvlvmt encounter procedureNOMS BCP OBComment on above:Arrived Start: 82-04-0278NwtticfqpHolzer Hospitaltart: 10-08-2024 End: 35-88-7945Fnxdbjn encounter procedureNOMS BCP OBComment on above:Arrived Start: 09-19-2024 End: 59-40-0537GTU/RhABO/Rh Lab Routine Missed menses , unspecified gestational age Expected: 09/19/2024 (Approximate), Expires: 09/19/2025N[facility] HealthcareComment on above:Expected: 09/19/2024 (Approximate), Expires: 09/19/2025Start: 09-19-2024 End: 63-52-4853Ffenx type and Indirect antibody screen panel - BloodType and screen Lab Routine Missed menses , unspecified gestational age Expected: 09/19/2024 (Approximate), Expires: 09/19/2025[facility] Work Phone: comment on above:Expected: 09/19/2024 (Approximate), Expires: 09/19/2025Start: 09-19-2024 End: 25-64-8772Nkswn of abuse panel - Urine by Screen methodRapid drug screen, urine Lab Routine , unspecified gestational age Encounter for supervision of normal first in first trimester Expected: 09/19/2024 (Approximate), Expires: 09/19/2025[facility] HealthcareComment on above:Expected: 09/19/2024 (Approximate), Expires: 09/19/2025Start: 09-19-2024 End: 02-48-6391hckzbtjvic56/08/2025 1:30 PM EDT Initial [facility] [address] [place] [address] ESFG BCP OBStart: 09-19-2024 End: 98-63-7150Jvhijzywxegg / ancillary services qmdakbixmi00/08/2025 1:00 PM EDT Ancillary Procedure [facility] [address] [place] [address] IWYV BCP OBStart: 08-28-2024 End: 73-44-2802Wveyidoldbis / ancillary services eywhhiyanp25/16/2025 8:30 AM EDT Ancillary Procedure [facility] [address] [place] [address] KFAT BCP OBStart: 04-10-2024 End: 99-84-5290Kbuqrmitolmom hormone (AMH)Antimullerian hormone (AMH) Lab Routine Hormone disorder Expected: 04/10/2024 (Approximate), Expires: 04/10/2025 [facility] Work Phone: comment on above:Expected: 04/10/2024 (Approximate), Expires: 04/10/2025Start: 04-10-2024 End: 62-19-8974Bdaiior encounter mkxpchepg68/27/2024 11:10 AM EST Office Visit [facility] [address] [place] [phone] Jack Woods, DO [address] [place] [address] ArrivedNOMS BCP OBComment on above:ArrivedStart: 2024 End: 23-68-2167Kldbamq encounter jcmyebcsl35/24/2024 1:20 PM EDT Office Visit [facility] [address] [place] [address] Jack Woods, DO [address] [place] [address] NOMS BCP OBStart: 87-52-5951MNsZ,Tdap and Td Vaccines (2 - Td or Tdap)DTaP,Tdap and Td Vaccines (2 - Td or Tdap)[facility]: 16-36-1388Maowzbtig for malignant neoplasm of cervixPap Smear [facility]: 27-63-5515Wljuwiues vaccinationFlu vaccine (#1) [facility]: 23-36-0014Muocw BMI Follow Up PlanAdult BMI Follow Up PlanDorothea Dix Hospitaltart: 50-38-3915Phkuizrjmb ScreeningDepression ScreeningPremier Health Miami Valley Hospital NorthBacteria identified in Urine by CultureUrine culture Microbiology Routine Missed menses Ordered: 09/19/2024[facility] Healthcare Comment on above:Ordered: 09/19/2024BC W Auto Differential panel - BloodCBC and differential Lab Routine Missed menses , unspecified gestational age Ordered: 09/19/2024[facility] HealthcareComment on above:Ordered: 09/19/2024HLAMYDIA TRACHOMATIS (GENITO/STI)CHLAMYDIA TRACHOMATIS (GENITO/STI) Lab Routine STD exposure Ordered: 11/05/2024[facility] HealthcareComment on above:Ordered: 11/05/2024 Cytology Cervical or vaginal smear or scraping studyPap Smear Pathology and Cytology Routine Well woman exam with routine gynecological exam Ordered: [facility] HealthcareComment on above:Ordered: 11/05/2024Hemoglobin A1c/Hemoglobin.total in BloodHemoglobin A1c Lab Routine Missed menses , unspecified gestational age Ordered: 09/19/2024[facility] HealthcareComment on above: Ordered: 09/19/2024Hepatitis B virus surface Ag [Presence] in Serum or Plasma by ImmunoassayHepatitis B surface antigen Lab Routine Missed menses , unspecified gestational age Ordered: 09/19/2024[facility] HealthcareComment on above: Ordered: 09/19/2024Hepatitis C virus Ab [Presence] in Serum or Plasma by ImmunoassayHepatitis C antibody Lab Routine Missed menses , unspecified gestational age Ordered: 09/19/2024[facility] HealthcareComment on above:Ordered: 09/19/2024HIV-1/HIV-2 antigen/antibody combination immunoassayHIV-1 and HIV-2 antibodies Lab Routine Missed menses , unspecified gestational age Ordered: 09/19/2024[facility] HealthcareComment on above:Ordered: 09/19/2024Neisseria gonorrhoeae DNA [Presence] in Unspecified specimen by DARIUS with probe detection Neisseria gonorrhea DNA probe, direct Lab Routine STD exposure Ordered: 11/05/2024[facility] HealthcareComment on above:Ordered: 11/05/2024Progesterone [Mass/volume] in Serum or PlasmaAdena Regional Medical CenterReagin Ab [Presence] in Serum by RPRRPR Lab Routine Missed menses , unspecified gestational age Ordered: 09/19/2024[facility] HealthcareComment on above:Ordered: 09/19/2024Rubella antibody, IgGRubella antibody, IgG Lab Routine Missed menses , unspecified gestational age Ordered: 09/19/2024[facility] above:Ordered: 09/19/2024SURESWAB(R) ADVANCED VAGINITIS PLUS, TMASURESWAB(R) ADVANCED VAGINITIS PLUS, TMA Pathology and Cytology Routine Vaginal discharge Ordered: 11/05/2024[facility] Work Phone: comment on above:Ordered: 11/05/2024 Immunizations Immunization DateImmunizationNotesCare GidjzgnbVfammmqo59-32-3112bzmulzkiw virus vaccine, unspecified formulationGuadalupe Peres MD Work Phone: [facility] Payers DatePayer CategoryPayerPolicy [id number] [facility] Managed Care - PPOANTHEM Member Subscriber Plan / Payer (Effective 2024-Present) Name: Daphney Al Relation to Subscriber: Self Name: Daphney Al Jean PayerID: [id number] (NAIC) Type: Not on file Address: [facility] [address] [place] [id number][facility]Ro[facility] 1.2.840.054230.1.13.693.2.7.9.367875.859[id number] 11-86-1404Vsoapjt Health [id number] .5.678358.2697-20-2024 Kpde-[id number] Health Insurance 1.2.840.071819.1.13.693.2.7.3.328346.13[id number] UnknownBCBS BCBS - [place] PPO xxxxxxxxxxxx 2014-Present [address] [place], [place] [address]bdappocewvaa 1.2.840.821458.1.13.239.2.7.3.385393.78542-75-3078Etnhvfi [id number] 2..1.880782.3.57[id number] 2..1.223813.3.57[id number] 2..1.479172.3.579.[id number] 2..1.031323.3.57[id number] 2..1.769815.3.57[id number] 2.16.840.1.567262.3.57[id number] 2..1.978900.3.579.2.342[id number] 2..1.886421.3.579.2.8[id number] 2..1.284880.3.579.2.322698-77-2737Chddyxq27114049 2..1.186860.3.579.2.751378-79-6516Gkgkzyb06790007 2..1.316750.3.579.2.228711-30-6452Ohmjklo30742331 2..1.342133.3.579.2.041140-48-7863Nbdqqht18160009 2..1.697152.3.579.2.022081-55-4607Pyyigui7237494 2..1.886456.3.579.2.160766-74-9200Euvqxne4869183 2..1.798349.3.579.2.743391-57-6053Yztxszt7243924 2..1.472387.3.579.2.551231-25-9037Niqndep3339820 2..1.047674.3.579.2.340979-42-2889Nxlxres6320143 2..1.099587.[id number] [id number]-u25v-53fp-lx73-4s84u764h0ghXdwebpiLaoocc /[id number]-q10o-[id number] 2.16.840.1.5[id number] 2.16.840.1.395304.3.579.2.531 [id number] 2.16.840.1.185745.3.579.2.429Jzvksjf24448788 2.16.840.1.297164.3.579.2.434Oxtuaea82704230 2.16.840.1.156450.3.579.2.531 [id number] 2.16.840.1.034020.3.579.2.069Zbtlsyf17809868 2.16.840.1.164983.3.579.2.953Sinvsec27474492 2.16.840.1.456045.3.579.2.531 [id number] 2.840.1.374282.3.579.2.531 Social History DateTypeDetailFacilityStart: 02-01-2019 End: 25-93-2181Xpppvkv smoking status NHISNever smokerHolzer Hospitaltart: 02-01-2019 End: 54-96-1363Qzscfbm intakeNot [facility]: 2000 Sex Assigned At BirthNot on [facility]: 90-96-0097Ahg Assigned At BirthFeAshtabula General Hospitaltart: 2024 End: 24-76-6818Wunaxcrxe beverage intakeLifetime non-drinker (finding)[facility] HealthcareStart: 04-28-2023 End: 69-49-1380Mybmkxx of Social functionNOMS HealthcareStart: 77-92-3439Wrkdnum CommentCaffeine intake: 3-4 cups per dayNOMS HealthcareStart: 08-06-2024 PregnancyNOCA HealthcareStart: 93-32-5457RtlXchyun (finding)[facility]: 01-90-6798Osafof the past 12 months we worried whether our food would run out before we got money to buy more.Never [facility] Clinical Notes 03-21-2023 to 02-25-2025 Note Date & ExcoHcieRxhsfmuz23-98-6169 History of Present illness Narrative* Lisa Prasad, SLAG EXPANDER - 02/25/2025 1:50 PM EDT Reason for Appointment: Patient ID: Daphney Al is a 25 y.o. female who presents for Routine Visit Patient presents today for Return OB appointment. MEDICATIONS Current Outpatient Medications Medication Instructions aspirin 81 MG oral suspension ondansetron (ZOFRAN) 4 mg, Oral, Every 6 hours PRN, Take 1 tablet by mouth every 6 hours as needed for nausea. Vit w/Fg-Cyqxvvavw-ZB (PNV PO) ALLERGIES Allergies[1] PROBLEMS Active Ambulatory Problems Diagnosis Date Noted No Active Ambulatory Problems Resolved Ambulatory Problems Diagnosis Date Noted No Resolved Ambulatory Problems Past Medical History: Diagnosis Date Acne vulgaris Endometriosis History of medical problems Miscarriage ([facility]) Ovarian cyst HISTORY PAST MEDICAL HISTORY SOCIAL [...] nursing note reviewed. Exam conducted with a seed production field supervisor present. Vitals: Estimated body mass index is 30.67 kg/m as calculated from the following: Height as of 02/06/24: 5' 6 . Weight as of this encounter: 190 lb. BP: 120/70 Patient's last menstrual period was 07/23/2024. ASSESSMENT & PLAN ICD-10-CM 1. Third trimester ([facility]) Z34.93 POCT urinalysis dipstick manually resulted 2. 31 weeks gestation of ([facility]) Z3A.31 3. POTS (postural orthostatic tachycardia syndrome) [...] History of medical problems recurrent strep Miscarriage ([facility]) Ovarian cyst [3] Family History Problem Relation Name Age of Onset Hypertension Father Diabetes Maternal Grandmother Heart disease Maternal Grandfather Heart disease Paternal Grandmother Other (liver failure) Paternal Grandfather Kidney failure Paternal Grandfather [4] Past Surgical History: Procedure Laterality Date BREAST BIOPSY Right 12/2018 LAPAROSCOPY DIAGNOSTIC / BIOPSY / ASPIRATION / LYSIS 11/20/2019 Diagnostic lap-endometriosis TONSILLECTOMY 11/03/2016 documented in this encounterTexas County Memorial HospitalVqqlsqmdcs35-76-5862 History of Present illness Narrative* Hazel Romero NP - 02/11/2025 9:50 AM EDT Reason for Appointment: Patient ID: Daphney Al is a 25 y.o. female who presents for Routine Visit Patient presents today for Return OB appointment. MEDICATIONS Current Outpatient Medications Medication Instructions aspirin 81 MG oral suspension ondansetron (ZOFRAN) 4 mg, Oral, Every 6 hours PRN, Take 1 tablet by mouth every 6 hours as needed for nausea. Vit w/Hv-Cgivabgan-JZ (PNV PO) ALLERGIES Allergies Allergen Reactions Cephalexin [...] Respiratory: Negative. Cardiovascular: Negative. Gastrointestinal: Positive for nausea. Genitourinary: Negative. Musculoskeletal: Negative. Skin: Negative. Neurological: [...] nursing note reviewed. Exam conducted with a seed production field supervisor present. Vitals: Estimated body mass index is 30.18 kg/m as calculated from the following: Height as of 02/06/24: 5' 6 . Weight as of this encounter: 187 lb. BP: 118/72 Patient's last menstrual period was 07/23/2024. ASSESSMENT & PLAN ICD-10-CM 1. Third trimester ([facility]) Z34.93 POCT urinalysis dipstick manually resulted 2. 29 weeks gestation of ([facility]) Z3A.29 Return OB: Patient presents today for a routine obstetrics appointment. Patient is currently 29w0d . Patient states she is doing well but has complaints of being tired due to current . Patient has verbalizes frequent movement. labor precautions was discussed/given and patient was instructed to perform kick counts three times a day. Patient has been evaluated by [facility] Cardiology with a history of syncopal episodes during this on 01/24/25. She does have noted sinus tachycardia. CTA was negative for PE and echo was normal . Diagnosis was most likely due to orthostatic hypotension and sinus tachycardia. She was ordered thi gh high compression stockings and instructed to maintain sedentary lifestyle. She is doing well anddoes have 1 syncopal episode per week and reports that she can anticipate this and is able to maintain a safe position and that this passes quickly. Orders Placed This Encounter Procedures POCT urinalysis dipstick manually resulted Follow Up: Order was placed for repeat growth ultrasound in the 3rd trimester. Patient is to return to office in 2 week for routine OB appointment. Documented by Bianca Gentile MA on behalf of: Hazel Romero NP documented in this encounterTexas County Memorial HospitalXaihcaakel90-41-8478 History of Present illness Narrative* REKHA Ott - 01/28/2025 8:40 AM EDT Reason for Appointment: Patient ID: Daphney Al is a 24 y.o. female who presents for Routine Visit Patient presents today for Return OB appointment. MEDICATIONS Current Outpatient Medications Medication Instructions aspirin 81 MG oral suspension ondansetron (ZOFRAN) 4 mg, Oral, Every 6 hours PRN, Take 1 tablet by mouth every 6 hours as needed for nausea. Vit w/Sz-Pnsvdcuik-PK (PNV PO) ALLERGIES Allergies Allergen Reactions Cephalexin [...] ASSESSMENT & PLAN ICD-10-CM 1. Second trimester ([facility]) Z34.92 POCT urinalysis dipstick manually resulted 2. 27 weeks gestation of ([facility]) Z3A.27 3. Elevated glucose tolerance test R73.09 [...] behalf of: REKHA Ott documented in this encounterTexas County Memorial HospitalKqhbmswzdv81-79-5083 [facility] Reason for cardiology [...] negative for PE or any abnormalities. Her travel agent ordered echo which came back normal. A [...] she cannot go b (more content not included)...[facility]09-04-2025 History of Present illness Narrative* Kelley Sepulveda, BRIANA - 01/16/2025 9:20 AM EDT Reason for Appointment: Patient ID: Daphney Al is a 24 y.o. female who presents for Routine Visit Patient presents today for Return OB appointment. MEDICATIONS Current Outpatient Medications Medication Instructions aspirin 81 MG oral suspension ondansetron (ZOFRAN) 4 mg, Oral, Every 6 hours PRN, Take 1 tablet by mouth every 6 hours as needed for nausea. Vit w/Lv-Asguwnnzt-BP (PNV PO) ALLERGIES Allergies Allergen Reactions Cephalexin [...] nursing note reviewed. Exam conducted with a seed production field supervisor present. Vitals: Estimated body mass index is 29.67 kg/m as calculated from the following: Height as of 02/06/24: 5' 6 . Weight as of this encounter: 183 lb 12.8 oz. BP: 120/78 Patient's last menstrual period was 07/23/2024. ASSESSMENT & PLAN ICD-10-CM 1. 25 weeks gestation of ([facility]) Z3A.25 POCT urinalysis dipstick manually resulted 2. Second trimester ([facility]) Z34.92 POCT urinalysis dipstick manually resulted 3. Palpitations R00.2 4. Syncope, unspecified syncope type R55 5. Gastroesophageal reflux in ([facility]) O99.619 K21.9 Patient presents today for a routine obstetrics appointment. Patient is currently 25w2d with a Estimated Date of Delivery: 04/29/25. Patient had spells where she passed out. Patient to have Cardiac Consult hopefully within the next week. Referral will be made today to Cardiology at [facility]. Patient has a EKG scheduled for Monday at 1pm. Patient voiced that she sees stars and then gets dizzy.Advised to increase protein and to remain off work until cleared by Cardiology. Patient to return to clinic 1 week. Documented by Kelley Sepulveda LPN on behalf of: Jack Woods DO documented in this encounterTexas County Memorial HospitalUskwhulkrq71-65-5268 History of Present illness Narrative* REKHA Ott - 01/07/2025 1:50 PM EDT Reason for Appointment: Patient ID: Daphney Al [...] 6 hours as needed for nausea. Vit w/Us-Xootlrwul-TL (PNV PO) pyridoxine (VITAMIN B-6) 25 mg, [...] ASSESSMENT & PLAN ICD-10-CM 1. Second trimester ([facility]) Z34.92 POCT urinalysis dipstick manually resulted iron polysaccharides (ProFe) 391.3 (180 Fe) MG capsule 2. 23 weeks gestation of ([facility]) Z3A.23 3. Palpitations R00.2 ECG 12 lead [...] behalf of: REKHA Ott documented in this encounterTexas County Memorial HospitalOcuciwaibj75-71-3495 History of Present illness Narrative* Lisa Shanice, SLAG EXPANDER - 12/31/2024 2:10 PM EDT Reason for Appointment: Patient ID: Daphney Al [...] 6 hours as needed for nausea. Vit w/Uk-Olzmujrjo-ZG (PNV PO) pyridoxine (VITAMIN B-6) 25 mg, [...] vulgaris Endometriosis History of medical problems Miscarriage ([facility]) Ovarian cyst HISTORY PAST MEDICAL HISTORY SOCIAL HISTORY Past Medical History: Diagnosis Date Acne vulgaris Endometriosis History of medical problems recurrent strep Miscarriage ([facility]) Ovarian cyst Social History Tobacco Use Smoking [...] nursing note reviewed. Exam conducted with a seed production field supervisor present. Vitals: Estimated body mass index is 29.83 kg/m as calculated from the following: Height as of 02/06/24: 5' 6 . Weight as of this encounter: 184 lb 12.8 oz. BP: 112/62 Patient's last menstrual period was 07/23/2024. ASSESSMENT & PLAN ICD-10-CM 1. Second trimester ([facility]) Z34.92 POCT urinalysis dipstick manually resulted 2. 23 weeks gestation of ([facility]) Z3A.23 POCT urinalysis dipstick manually resulted 3. [...] of: Jack Woods DO documented in this encounterTexas County Memorial HospitalOpmldeakfx29-30-0751 History of Present illness Narrative* REKHA Ott - 12/03/2024 1:30 PM EDT Reason for Appointment: Patient ID: Daphney Al [...] 6 hours as needed for nausea. Vit w/Ft-Azipvivjm-QQ (PNV PO) pyridoxine (VITAMIN B-6) 25 mg, [...] vulgaris Endometriosis History of medical problems Miscarriage ([facility]) Ovarian cyst HISTORY PAST MEDICAL HISTORY SOCIAL HISTORY Past Medical History: Diagnosis Date Acne vulgaris Endometriosis History of medical problems recurrent strep Miscarriage ([facility]) Ovarian cyst Social History Tobacco Use Smoking [...] ASSESSMENT & PLAN ICD-10-CM 1. Second trimester ([facility]) Z34.92 POCT urinalysis dipstick manually resulted 2. 19 weeks gestation of ([facility]) Z3A.19 Return OB: Patient presents today for [...] behalf of: REKHA Ott documented in this encounterTexas County Memorial HospitalShursumtaz46-21-3772 History of Present illness Narrative* Guadalupe Peres MD - 11/12/2024 10:00 AM EDT [...] nausea or vomiting., Disp: , Rfl: PNV 97-booo-qgsbxyzpmtdw-dha 29 mg iron-1 mg -350 mg comb [...] (2019) [facility]ero's maternal- medicine :principles and practice [place], [place] : [employer] Sonographic diagnosis of ovarian torsion: accuracy and predictive factors. Monica R, Jeff N, Zoin N, Sohan-Shiedvin G, Bright I. J Ultrasound Med. 2011 Jan;30(9):1205-10. Adnexal masses in : An updated review. Olivia AM, Dorie Rocha, Adelaide DOMÍNGUEZ, Nory H, A Tanja MILLICENT. [facility] J Med. 2017 Feb-Apr;7(4):153-157. doi: 10.4103/ajm.AJM_22_17. PMID: [id number] Uterine fibroids, affecting I reviewed the uterine [...] and evaluation of bilateral adnexal masses, through [facility] Recommend repeat growth ultrasound in the 3rd trimester, through primary OB, given known uterine fibroid Anticipate term vaginal delivery at local hospital Precautions regarding shortness of breath and chest pain were reviewed with the patient today DISPOSITION: At this point the patient is in complete care of her travel agent. Thank you for allowing me to participate in the care of Daphney Al. If there any questions please do not hesitate to contact us. Guadalupe Peres MD Maternal- Medicine [facility] [address] [place] [address] This document was created with [employer] technology. Though I make every effort to review the dictation as it is transcribed, on occasion the spoken word can be misinterpreted by the technology leading to inappropriate words, phrases, or sentences. This note is addressed to the requesting provider as a consultation for clinical guidance. Specificmedical abbreviations are occasionally used and those are generally approved by the Spanish?Board of?Obstetrics and?Gynecology?as well as?Graham s abbreviations. The above plan of care was based solely on the diagnoses for which a consultation was requested. ?More frequent testing may be indicated based on her other medical/obstetrical conditions. The management of other or medical conditions is beyond the scope of requested consultation and will c ontinue to be followed by the primary travel agent or primary care provider. Note to patient: [...] risk Have you been seen here at [facility] in a previous ? No Recent ER visits or hospitalizations? No Bring blood sugar log or meter with you today? (Please bring them with you for every visit at [facility] [facility] N/A Flu vaccine (Mar-July)? N/A Any concerns that you would like me to mention to the provider today? R calf bruising, +Homans sign, wants to make sure about cysts, feeling nervous about cervix being short, has never been this far along. Right calf = 36.4cm, Left calf = 39.0cm [facility] History of Present illness Narrative* Lisa Prasad LPN - 11/05/2024 1:40 PM EDT Reason for Appointment: Patient ID: Daphney Al [...] 6 hours as needed for nausea. Vit w/Qs-Knxhthotr-ZB (PNV PO) pyridoxine (VITAMIN B-6) 25 mg, [...] nursing note reviewed. Exam conducted with a seed production field supervisor present. Vitals: Estimated body mass index is 27.02 kg/m as calculated from the following: Height as of 02/06/24: 5' 6 . Weight as of this encounter: 167 lb 6.4 oz. BP: 106/68 Patient's last menstrual period was 07/23/2024. ASSESSMENT & PLAN ICD-10-CM 1. Well woman exam with routine gynecological exam Z01.419 Pap Smear 2. Second trimester ([facility]) Z34.92 POCT urinalysis dipstick manually resulted Alpha fetoprotein, maternal Alpha fetoprotein, maternal 3. 15 weeks gestation of ([facility]) Z3A.15 POCT urinalysis dipstick manually resulted Alpha fetoprotein, maternal Alpha fetoprotein, maternal 4. Vaginal discharge N89.8 SURESWAB(R) ADVANCED VAGINITIS PLUS, TMA 5. STD exposure Z20.2 CHLAMYDIA TRACHOMATIS (GENITO/STI) Neisseria gonorrhea DNA probe, direct Return OB/Annual Exam: Patient presents today for a annual exam/routine obstetrics appointment. Patient is currently 21s0xirwzqmcl. Patient states she is doing well but [...] of: Jack Woods DO documented in this encounterTexas County Memorial [id number] History of Present illness Narrative* Lisa Prasad LPN - 10/08/2024 2:30 PM EDT Reason for Appointment: Patient ID: Daphney Al [...] 6 hours as needed for nausea. Vit w/Hy-Ztuyihgim-BA (PNV PO) pyridoxine (VITAMIN B-6) 25 mg, [...] nursing note reviewed. Exam conducted with a seed production field supervisor present. Vitals: Estimated body mass index [...] undercooked meat, and stay away from [facility]. Patient has been consulted regarding any further do's and don'tsof . Patient voiced understanding and all questions and concerns were answered. Pt constipa belem- dulcolax supp faxed to pharmacy. Orders Placed This Encounter Procedures POCT urinalysis dipstick manually resulted Follow Up: Patient is to return in 4 weeks for routine OB appointment. Documented by Lisa Prasad LPN on behalf of: Jack Woods DO documented in this encounterTexas County Memorial [id number] History of Present illness Narrative* Manjula Elias MA - 09/19/2024 1:30 PM EDT Reason for Appointment: Patient ID: Daphney Al [...] the following prescription(s): aspirin, omeprazole, ondansetron, vit w/ct-hetuxijqm-am, and progesterone. Medical History: Active Ambulatory Problems [...] mouth every 6 (six) hours if needed fornausea or vomiting for up to 30 doses Take 1 tablet by mouth every 6 hours as needed for nausea. Nausea and vomiting during - ondansetron (Zofran) 4 MG tablet; Take 1 tablet (4 mg) by mouth every 6 (six) hours if needed fornausea or vomiting for up to 30 doses [...] drink 6-8 glasses of water a day, eatno raw or undercooked meat, and stay away from [facility]. Patient has also been advised to not change litter boxes and eat 6 small meals a day. Patient has been consulted regarding the do's and don'ts ofpregnancy. Patient was given labs. Pt requesting dr. [...] by: Manjula Elias MA documented in this encounterTexas County Memorial HospitalRtzatjlkxm02-28-8175 History of Present illness Narrative* Lisa Prasad LPN - 04/10/2024 11:10 AM EST Reason for Appointment: Patient ID: Daphney Al is a 24 y.o. female who presents for Infertility Patient presents today for Fertility Follow Up appointment. MEDICATIONS Current Outpatient Medications Medication Instructions aspirin 81 MG oral suspension Vit w/Lc-Kyrstyqql-LD (PNV PO) ALLERGIES Allergies Allergen Reactions Cephalexin [...] nursing note reviewed. Exam conducted with a seed production field supervisor present. Vitals: Estimated body mass index is 27.6 kg/m as calculated from the following: Height as of 02/06/24: 5' 6 . Weight as of this encounter: 171 lb. BP: 114/72 Patient's last menstrual period was 03/29/2024 (exact date). ASSESSMENT & PLAN ICD-10-CM 1. Encounter for infertility Z31.9 Pt presents to discuss fertility and ovulation regarding when to start progesterone. Discussed roleof estrogen and progesterone. Pt advised to start progesterone on day 19 of cycle, and continue intercourse on days 12, 14, 16,18, 20. Pt is currently on 3rd round of femara. Progesterone levels showpt is ovulating. Pt voiced understanding. Discussed LAST referral towards [place]. Documented by Lisa Prasad LPN on behalf of: Jack Woods DO documented in this encounterTexas County Memorial [id number] History of Present illness Narrative* Lisa Prasad LPN - 2024 1:20 PM EDT Reason for Appointment: Patient ID: Daphney Al is a 23 y.o. female who presents for Infertility Patient presents today for Fertility Follow Up appointment. MEDICATIONS Current Outpatient Medications Medication Instructions aspirin 81 MG oral suspension Vit w/Jx-Gadvwgijv-DR (PNV PO) ALLERGIES Allergies Allergen Reactions Cephalexin [...] nursing note reviewed. Exam conducted with a seed production field supervisor present. Vitals: Estimated body mass index [...] of: Jack Woods DO documented in this encounterTexas County Memorial [id number] Evaluation note* Encounter Date Diagnosis Assessment Notes Treatment Notes Treatment Clinical Notes Mar, Sore throat (ICD-10 - J02.9) Mar,Viral URI (ICD-10 - J06.9) Advised patient that rapid Strep test was negative today. Patient declines/refuses other testing today. Advised patient that will treat as viral URI. Supportive care as directed, increase fluids and rest, rx of prednisone,Tylenol as directed, OTC cough/cold remedies as directed [...] treatment plan. Patient left in stable condition [employer] Other Evaluation noteNo assessment information available [facility] Work Phone: Evaluation note* Diagnosis Encounter [...] right lower extremity documented in this encounter [facility]* Diagnosis Well woman exam [...] tolerance test [facility] Diagnosis size inconsistent with dates (HHS-HCC)- Primary Third trimester (HHS-HCC) state, incidental 29 weeks gestation of (HHS-HCC) documented [facility]* Diagnosis Third trimester (HHS-HCC) state, incidental 31 weeks gestation of (HHS-HCC) POTS (postural orthostatic tachycardia syndrome) Unspecified tachycardia Pain of right lower extremity documented in this encounter [facility] HealthcareHistory general Narrative - Reported* Type Description Date Surgical History tonsillectomy Surgical Historylaparoscopy [facility] Other InstructionsNot on filedocumented in this encounter [facility] SystemInstructionsNot on filedocumented in this encounter [facility] SystemReason for referral (narrative)No reason for referral information availableParkwood Hospital Work Phone: Summary Purpose Family History No Family History Records Found Relationship Condition Age at Onset Recorded Date/T juliette father Congestive heart failure Unknown Advance Directives No Advanced Directives Records FoundDocuments on File TypeDate RecordedPatient RepresentativeExplanationAdvance Directives and Living WillPower of Language Teacher Advance Directive Response Recorded Date/ Time Advance Directives No August 08 7:47am Advance Directive Response Recorded Date/ Time Advance Directives No August 08 8:47am Discharge Instructions * Instructions* Keyla Leyva MD - 02/01/2019 Follow-up with [facility] * Attachments The following attachments cannot be sent through Care Everywhere. * Abdominal Pain (Bulgarian) * Appendicitis (Bulgarian) documented in this encounter Assessments Diagnosis Abdominal [...] section and content) DATE CREATED AUTHOR 02/01/2019 [facility] DATE CREATED AUTHOR AUTHOR'S ORGANIZ ATION 05/05/2023 [facility] DATE CREATED AUTHOR AUTHOR'S ORGANIZ ATION 11/13/2024 [facility] DATE CREATED AUTHOR AUTHOR'S ORGANIZ ATION 11/13/2024 [facility] DATE CREATED AUTHOR AUTHOR'S ORGANIZ ATION 12/12/2024 [facility] DATE CREATED AUTHOR AUTHOR'S ORGANIZ ATION 01/26/[address] [facility] DATE CREATED AUTHOR AUTHOR'S ORGANIZ ATION 03/01/2025 [facility] EPIC Reason for Visit (unrecogniz ed section and content) ReasonCommentsRoutine VisitSpecialtyDiagnoses / ProceduresReferred By ContactReferred To ContactObstetrics and Gynecology Diagnoses Enlarged & Heterogeneous Bilateral Ovaries 2.3cm Isoechoic Left-sided Lesion Possible Endometrioma Procedures [place] UNLISTED EVALUATION AND MANAGEMENT SERVICE [facility] [address] [place] [address] Jack Woods, DO [address] [place], [place] [address] [place] [address] Phone: tel: fax: Referral IDStatusReasonStart DateExpiration DateVisits RequestedVisits [id number]/[id number] PainRLQ pain x 1 hourReasonCommentsInfertilityReasonCommentsAmenorrheaReasonCommentsEnlarged & Heterogeneous Bilateral Ovaries2.3cm Isoechoic Left-sided LesionPossible EndometriomaReasonCommentsRoutine Visit Care Teams (unrecognized sec tion and content) Team Status: Active Member Role Status Dates Zachary Mayes MD Primary Care Provider Active Team Status: Inactive Member Role Status Dates Zachary Mayes MD Primary Care Provider Active Kailey Walkerending ProviderActive Team Status: Inactive Member Role Status Dates Zachary Mayes MD Primary Care Provider Active Start: December 02, 2023 End: December 01enolkevin Reardon MDAttbilly ProviderActiveStart: December 02, 2023 End: December 02, 2023 Team Status: Inactive Member Role Status Dates Zachary Mayes MD Primary Care Provider Active Start: December 05, 2023 End: December 04oreashish Woods DOAttending ProviderActiveStart: December 05, 2023 End: December 05, 2023 Team Status: Inactive Member Role Status Dates Zachary Mayes MD Primary Care Provider Active Start: December 07, 2023 End: December 06oreashish Altamiranoo DOAttending ProviderActiveStart: December 07, 2023 End: December 07, 2023 Team Status: Inactive Member Role Status Dates Zachary Mayes MD Primary Care Provider Active Start: December 09, 2023 End: December 08gal Woods DOAttending ProviderActiveStart: December 09, 2023 End: December 09, 2023 Team Status: Inactive Member Role Status Dates Zachary Mayes MD Primary Care Provider Active Start: December 20, 2023 End: December 19gal Woods DOAttending ProviderActiveStart: December 20, 2023 End: December 20, 2023 Team Status: Inactive Member Role Status Dates Zachary Mayes MD Primary Care Provider Active Start: December 22, 2023 End: December 21gal Woods DOAttending ProviderActiveStart: December 22, 2023 End: December 22, 2023 Team Status: Inactive Member Role Status Dates Zachary Mayes MD Primary Care Provider Active Start: December 28, 2023 End: December 27gal Woods DOAttending ProviderActiveStart: December 28, 2023 End: December 28, 2023 Team Status: Inactive Member Role Status Dates Zachary Mayes MD Primary Care Provider Active Start: January 05, 2024 End: January 04gal Woods DOAttending ProviderActiveStart: January 05, 2024 End: January 05, 2024Team MemberRelationshipSpecialtyStart DateEnd Alberto Mayes MD [address] [place] [phone] [facility] Ceanlnc99/19/23 Paloma Vazquez DO [address] [place] [address] Referring PhysicianObstetrics and Ufgbnuaucm43/12/23Te MemberRelationship SpecialtyStart DateEnd Alberto Mayes MD [address] [place], [place] [address]daiana [place] [phone] [facility] Xzqddsc08/19/23 Paloma Vazquez DO [address] [place] [address] Referring PhysicianObstetrics and Jwjpmxmnpm71/12/23Te MemberRelationship SpecialtyStart DateEnd Date Alberto Mayes MD [address] [place] [phone] PCP - Pbuykaj15/19/23 Paloma Vazquez DO [address] [place] [address] Referring PhysicianObstetrics and Htpfzqzdpz03/12/23Te MemberRelationship SpecialtyStart DateEnd Date Alberto Mayes MD [facility] [address] [place] [phone] PCP - Rajvqrs61/19/23 Paloma Vazquez DO [address] [place] [address] Referring PhysicianObstetrics and Nwhuppdtxk96/12/23Te MemberRelationship SpecialtyStart DateEnd Date Alberto Mayes MD [facility] [address] [place] [phone] [facility] - Mswnwsb55/19/23 Paloma Vazquez DO [address] [place] [address] Referring PhysicianObstetrics and Ycgxbzjovb07/12/23Te MemberRelationship SpecialtyStart DateEnd Date Alberto Mayes MD [facility] [address] [place] [phone] [facility] - Fxhmqpm20/19/23 Paloma Vazquez DO [address] [place] [address] Referring PhysicianObstetrics and Kklbxkfwtq25/12/23Te MemberRelationship SpecialtyStart DateEnd Date Alberto Mayes MD [address] [place] [address] PCP - Tddywet08/19/23 Paloma Vazquez DO [address] [place] [address] Referring PhysicianObstetrics and Gqbfcnvtji65/12/23Te MemberRelationship SpecialtyStart DateCorp[facility] Alberto Mayes MD [address] [place] [address] PCP - Cuodqep22/19/23 Paloma Vazquez DO [address] [place] [address] Referring PhysicianObstetrics and Uyeiblxwyg88/12/23Te MemberRelationship SpecialtyStart DateEnd [facility] Alberto Mayes MD [address] [place] [address] PCP - Vwzvvqx90/19/23 Paloma Vazquez DO [address] [place] [address] Referring PhysicianObstetrics and Fuxjicrxkr54/12/23Te MemberRelationship SpecialtyStart DateEnd [facility] Alberto Mayes MD [address] [place] [address] PCP - Dchxazy51/19/23 Paloma Vazquez DO [address] [place] [address] Referring PhysicianObstetrics and Fnnspovdut20/12/23 Team Status: Inactive Member Role Status Daniel Woods DO Attending Provider Active Start : November 05, 2024 End: November 05, 2024Team MemberRelationshipSpecialtyStart DateEnd Date Alberto Mayes MD [address] [place] [address] PCP - Bykpsww43/19/23 Paloma Vazquez DO [address] [place] [address] Referring PhysicianObstetrics and Ebsvmjkspw42/12/23Team MemberRelationship SpecialtyStart DateEnd Date Alberto Mayes MD PCP - Jfpumnu64/19/23Team MemberRelationshipSpecialtyStart DateEnd Date Alberto Mayes MD PCP - Hxsyzin09/19/23Team MemberRelationshipSpecialtyStart DateEnd Date Alberto Mayes MD PCP - Lcqzsqr06/19/23Team MemberRelationshipSpecialtyStart DateEnd Date Alberto Mayes MD PCP - Vwhukbq69/19/23Team MemberRelationshipSpecialtyStart DateEnd Date Alberto Mayes MD PCP - Ogzzpcd18/19/23Team MemberRelationshipSpecialtyStart DateEnd Date Alberto Mayes MD PCP - Xmwylov75/19/23Team MemberRelationshipSpecialtyStart DateEnd Date Alberto Mayes MD PCP [place] [phone] MemberRelationshipSpecialtyStart DateEnd Date Alberto Mayes MD PCP [place] [phone] MemberRelationshipSpecialtyStart DateEnd Date Alberto Mayes MD PCP [place] [address]/Te MemberRelationshipSpecialtyStart DateEnd Date Alberto Mayes MD [place] [address] MemberRelationshipSpecialtyStart DateEnd Date Alberto Mayes MD [facility]05/02/23 Goals (unrecognized section and content) Goals may [...] BE BASED ON THE PRIMARY CLINICAL RECORDS. [facility] [employer] [facility]. provides no warranty or guarantee of the accuracy or completeness of information in this document.
--- OUTSIDE RECORDS SUMMARY | 2025-03-08 11:04 | XMS_ITS | Clinical Summary ---
Author Organization [facility] Address [address] [place] [address] Care Team Providers Care Manager Delivery Name Role Phone Jack Woods DO Primary Care Provider [phone] Allergies Active AllergyReactionsCriticalityNoted DateCommentsCephalexinNausea And TqzazwmrMot20/20/2019 Other Reaction(s): severe vomiting Other Reaction(s): Vomiting CiprofloxacinGI zhwuawhltquGoy40/22/2019 PROJECTILE VOMITING Other Reaction(s): GI Intolerance Pt states projectile vomiting. Other Reaction(s): Vomiting PROJECTILE VOMITING Pt states projectile vomiting. PrednisoneNausea And BwdhyarzCsy18/20/2019 Other Reaction(s): severe vomiting Other Reaction(s): Vomiting Medications MedicationSigDispense QuantityRefillsLast FilledStart DateEnd DateStatus ondansetron (Zofran) 4 mg tablet Take 4 mg by mouth every 8 (eight) hours if needed.5Active 115/iron/folic acid ( 19 ORAL) Take by mouth.Active Active Problems ProblemNoted DateDiagnosed BqkjFvkkvqvqgmnn81/12/2025Syncope and collapse 6 weeks gestation of kzvaidpai63/12/2025CommentsYes Encounters DateTypeDepartmentCare NsegGelujrsvyof86/12/2025 1:00 PM EDTOffice Visit [facility] [address] [place] [address] Samreen Chen MD Syncope and collapse (Primary Dx); Palpitations; 26 weeks gestation of pregnancyfrom Last 3 Months Family History Medical HistoryRelationNameCommentsHypertensionFatherRelationNameStatusComments FatherAliveMotherAlive Social History Tobacco UseTypesPacks/DayYears UsedDateSmoking Tobacco: NeverSmokeless Tobacco: Never Tobacco Cessation:Counseling Given: Not Answered Alcohol UseStandard Drinks/WeekCommentsNot Currently0 (1 standard drink = 0.6 oz pure alcohol)CommentsYesSex and Gender InformationValueDate RecordedSex Assigned at FditeDqprdh02/12/2025 12:52 PM EDTLegal FatClcnhn33/04/2025 4:40 PM EDTGender SognkejgMtfioq20/12/2025 12:52 PM EDTSexual OrientationHeterosexual or Cukjxtwb35/12/2025 12:52 PM EDT Last Filed Vital Signs Vital SignReadingTime TakenCommentsBlood Kfsvnuaz575/8201/24/2025 1:26 PM EDT Afviy92742/12/2025 1:26 PM EDTTemperature--Respiratory Rate--Oxygen Saturation 96%01/24/2025 1:26 PM EDTInhaled Oxygen Concentration--Hiwdge09.5 kg (184 lb) 01/24/2025 1:08 PM EDTHeight--Body Mass Index-- Plan of Treatment DateTypeDepartmentCare Team (Latest Contact Info)Zxarnvvcpdv14/07/2025 2:00 PM ESTOffice Visit [facility] [address] [place] [address] Samreen Chen MD [address] [place] [address] Health MaintenanceDue DateLast DoneCommentsDepression Wjuyhrwso37/25/2010 Varicella Vaccines (1 of 2 - 13+ 2-dose series)2011dult Umckvcq3302/07/2020 COVID-19 Vaccine ( - 2024- season)2025Influenza Vaccine (#1)2025 HPV Vaccines (1 - 3-dose SCDM series)2025Pap Smear11/05/08763111/05/2024 Zoster Vaccines (1 of 2)02/07/2048HIB VaccinesAged OutNo longer eligible based on patient's age to complete this topicIPV VaccinesAged OutNo longer eligible based on patient's age to complete this topicMeningococcal B VaccineAged OutNo longer eligible based on patient's age to complete this topicMeningococcal VaccineAged OutNo longer eligible based on patient's age to complete this topic Pneumococcal Vaccine: Pediatrics (0 to 5 Years) and At-Risk Patients (6 to 64 Years)Aged OutNo longer eligible based on patient's age to complete this topic Rotavirus VaccinesAged OutNo longer eligible based on patient's age to complete this topic Insurance * Guarantor: Daphney Montesinos TypeRelation to PatientDate of BirthPhone Billing AddressPersonal/AwxsnoAumo2000 [facility] [place] [address] Care Teams Team MemberRelationshipSpecialtyStart DateEnd Date Jack Woods DO [address] [facility] [place] [address] PCP - GeneralObstetrics and Gynecology01/24/25
== END 2025-03-08 11:03 | disposition home or self-care (01) ==
LOC: US 11:02
PROVIDERS: PCP Family Medicine; Visit Provider Obstetrics & Gynecology
DX: M79.604 Pain in right leg (principal)
CPT/HCPCS: 93971

== ENCOUNTER 2025-03-17 14:18 | Outpatient (OUT) | payer BC, SELFPAY ==
--- OUTSIDE RECORDS SUMMARY | 2015-04-03 09:28 | XMS_ITS | Continuity of Care Document ---
Author Organization [facility] Address [address] [place] [address] Phone Care Team Providers Care Swimming Pool Attendant Name Role Phone Jonathan Herrera Unavailable Unavailable Procedures Procedure Date TB INTRADERMAL TEST TB INTRADERMAL TEST Advance Directives Directive Yes / No Effective Date File Name No Information Encounters Encounter Description Practice Location Reason(s) For Visit Diagnoses Date Provider Providers Copied on Encounter [facility], [address] [place] [address], [id number], tel:[phone] [facility] No Information Beronica Lopez. [address] [place], [place], [id number], [place]. tel:[phone] [facility], [address] [place] [address], [id number], [place] tel:[phone] [facility] No Information Beronica Lopez. [address] [place], [place], [id number], [place]. tel:[phone] [facility], [address] [place], [place], [id number], [place] tel:[phone] [facility] No Information Beronica Lopez. [address] [place], [place], [id number], [place]. tel:[phone] Family History Family Member Type Diagnosis Age At Onset No Information Payers Payer name Insurance type Covered alliance party ID Authoriza tion(s) No Information Social History Type Description Quantity Date Captured Comments Sex Female Smoking Status No Information Chief Complaint And Reason For Visit No Information Reason For Referral Reason For Referral No Information History Of Present Illness Encounter Date Complaint History Of Prese nt Illness No Information Functional Status Date Functional Assessmen t No Information Instructions Date Instruction Additional Infor mation No Information Assessments Type Assessment Date No Information Patient Care Teams Name Effective Dates (start - stop) Status Members No Information
--- OUTSIDE RECORDS SUMMARY | 2025-03-12 13:40 | XMS_ITS | Encounter Summary ---
Author Organization [facility] Address [address] [place] [address] Care Team Providers Care Diesel Roller Operator Name Role Phone Alberto Mayes MD Primary Care Provider [phone] Reason for Visit * ReasonCommentsRoutine Visit Encounter Details DateTypeDepartmentCare Team (Latest Contact Info)Pmnoylvaqfl86/29/2025 2:40 PM EDTRoutine [facility] [address] [place] [address] Vielka Romero, JAZZY [address] [facility] [place] [address] Hemorrhoids, unspecified hemorrhoid type (Primary Dx); Third trimester ([facility]); 33 weeks gestation of ([facility]) Social History Tobacco UseTypesPacks/DayYears UsedDateSmoking Tobacco: NeverAlcohol UseStandard Drinks/WeekCommentsNever0 (1 standard drink = 0.6 oz pure alcohol)Caffeine intake: 3-4 cups per dayEstimated Date of NqugxuctAbjoxouoJvz02/16/2025 Based on last menstrual period of 07/23/2024Sex and Gender InformationValueDate RecordedSex Assigned at BirthNot on fileLegal BusRfmpim31/15/2023 7:33 PM EDT Gender IdentityNot on fileSexual OrientationNot on filedocumented as of this encounter Last Filed Vital Signs Vital SignReadingTime TakenCommentsBlood Twvhslei314/7210/ 2:49 PM EDT Pulse--Temperature--Respiratory Rate--Oxygen Saturation--Inhaled Oxygen Concentration--Zmcgda60.8 kg (189 lb 4 oz)03/12/2025 2:49 PM EDTHeight--Body Mass Index30.5509 1:52 PM EDTdocumented in this encounter Progress Notes * Vielka Romero NP - 03/12/2025 2:40 PM EDT Reason for Appointment: Patient ID: Daphney Montesinos is a 25 y.o. female who presents for Routine Visit Patient presents today for Return OB appointment. MEDICATIONS Current Outpatient Medications Medication Instructions aspirin 81 MG oral suspension ondansetron (Zofran) 4 MG tablet TAKE 1 TABLET BY MOUTH EVERY 6 HOURS NEEDED FOR NAUSEA AND VOMITING Vit w/Vw-Trgnojghi-XL (PNV PO) ALLERGIES Allergies Allergen Reactions Cephalexin [...] Negative. Respiratory: Negative. Cardiovascular: Negative. Gastrointestinal: Negative. Hemorrhoid using tucks pads Genitourinary: Negative. Musculoskeletal: Negative. Skin: Negative. Neurological: [...] nursing note reviewed. Exam conducted with a engineer station mainline present. Vitals: Estimated body mass index is 30.55 kg/m?? as calculated from the following: Height as of 02/06/24: 5' 6 . Weight as of this encounter: 189 lb 4 oz. BP: 102/72 Patient's last menstrual period was 07/23/2024. Assessment/Plan ICD-10-CM 1. Third trimester ([facility]) Z34.93 POCT urinalysis dipstick manually resulted 2. 33 weeks gestation of ([facility]) Z3A.33 Return OB: Patient presents today for a routine obstetrics appointment. Patient is currently 33w1d . Patient states she is doing well but has complaints of being tired due to current . Patient has verbalizes frequent movement. labor precautions was discussed/given and patient was instructed to perform kick counts three times a day. Patient has been eating ice frequently and appears pallor today. Will obtain CBC and review at next office visit. Patient reports hemorrhoids and has tried witch palomo without relief. Anusol HC suppository sent topharmacy. Orders Placed This Encounter Procedures CBC and differential POCT urinalysis dipstick manually resulted Follow Up: Patient is to return to office in 2 week for routine OB appointment. Documented by Vielka Romero NP on behalf of: Vielka Romero NP documented in this encounter Plan of Treatment DateTypeDepartmentCare Team (Latest Contact Info)Ndtbumpimsd52/12/2025 2:40 PM ESTRoutine [facility] [address] [place] [phone] Jack Woods DO [address] [place] [address] NameTypePriorityAssociated DiagnosesOrder ScheduleCBC and differentialLabRoutine Third trimester ([facility]) Ordered: 03/12/2025documented as of this encounter Procedures Procedure NamePriorityDate/TimeAssociated DiagnosisCommentsPOCT URINALYSIS SCZBKQYSSrfxwom40/29/2025 2:55 PM EDT Third trimester ([facility]) documented in this encounter Results * (ABNORMAL) POCT urinalysis dipstick manually resulted (03/12/2025 2:55 PM EDT) ComponentValueRef RangeTest MethodAnalysis TimePerformed AtPathologist SignatureColor, UAYellowClarity, UAClearGlucose, UANegativeNegative - 2000(110) ++++ mg/dLBilirubin, UANegativeNegative - 4(70) +++ mg/dLKetones, UA NegativeNegative - 160(16) ++++ mg/dLSpec Grav, UA1.0101 - 1.03Blood, UA NegativeNegative - 50 Clarke/mcLpH, UA8.05 - 9Protein, UANegativeNegative - 2000(20) ++++ mg/dLUrobilinogen, UA0.20.2 - 12 mg/dLLeukocytes, UAPositive Negative - 500+++ Kamaljit/mcLComment:2+Nitrite, UANegativeNegative - Positive Specimen (Source)Anatomical Location / LateralityCollection Method / Volume Collection TimeReceived PhxjGmvvm59/29/2025 2:55 PM EDT Narrative Authorizing ProviderResult TypeResult StatusVielka Romero NPPOINT OF CARE TEST ENTER/EDIT ORDERABLESFinal Result documented in this encounter Visit Diagnoses Diagnosis Hemorrhoids, unspecified hemorrhoid type- Primary Third trimester ([facility]) state, incidental 33 weeks gestation of ([facility]) documented in this encounter Care Teams Team MemberRelationshipSpecialtyStart DateEnd Date Alberto Mayes MD PCP - Nxxxzmb71/19/23documented as of this encounter
--- OUTSIDE RECORDS SUMMARY | 2025-03-17 14:24 | XMS_ITS | Clinical Summary ---
Author Organization [facility] Address [address] [place] [address] Care Team Providers Care Advertising Photographer Name Role Phone Jack Woods DO Primary Care Provider [phone] Allergies Active AllergyReactionsCriticalityNoted DateCommentsCephalexinNausea And ZaqxwggyOvm57/20/2019 Other Reaction(s): severe vomiting Other Reaction(s): Vomiting CiprofloxacinGI puckfacswlvAkp70/22/2019 PROJECTILE VOMITING Other Reaction(s): GI Intolerance Pt states projectile vomiting. Other Reaction(s): Vomiting PROJECTILE VOMITING Pt states projectile vomiting. PrednisoneNausea And KcmxmhztWdp21/20/2019 Other Reaction(s): severe vomiting Other Reaction(s): Vomiting Medications MedicationSigDispense QuantityRefillsLast FilledStart DateEnd DateStatus ondansetron (Zofran) 4 mg tablet Take 4 mg by mouth every 8 (eight) hours if needed.5Active 115/iron/folic acid ( 19 ORAL) Take by mouth.Active Active Problems ProblemNoted DateDiagnosed GhiuLyvvbilnwoks02/12/2025Syncope and collapse 6 weeks gestation of tgglfasew64/12/2025CommentsYes Encounters DateTypeDepartmentCare CafoLacbdqccnes53/12/2025 1:00 PM EDTOffice Visit [facility] [address] [place] [address] Samreen Chen MD Syncope and collapse (Primary Dx); Palpitations; 26 weeks gestation of pregnancyfrom Last 3 Months Family History Medical HistoryRelationNameCommentsHypertensionFatherRelationNameStatusComments FatherAliveMotherAlive Social History Tobacco UseTypesPacks/DayYears UsedDateSmoking Tobacco: NeverSmokeless Tobacco: Never Tobacco Cessation:Counseling Given: Not Answered Alcohol UseStandard Drinks/WeekCommentsNot Currently0 (1 standard drink = 0.6 oz pure alcohol)CommentsYesSex and Gender InformationValueDate RecordedSex Assigned at GavzxKzfwbp71/12/2025 12:52 PM EDTLegal RtxZatmkr99/04/2025 4:40 PM EDTGender TbdhxsubXpjclr31/12/2025 12:52 PM EDTSexual OrientationHeterosexual or Qtlyqklq44/12/2025 12:52 PM EDT Last Filed Vital Signs Vital SignReadingTime TakenCommentsBlood Wsqwwspo654/8201/24/2025 1:26 PM EDT Uqxkh16834/12/2025 1:26 PM EDTTemperature--Respiratory Rate--Oxygen Saturation 96%01/24/2025 1:26 PM EDTInhaled Oxygen Concentration--Gwhmls34.5 kg (184 lb) 01/24/2025 1:08 PM EDTHeight--Body Mass Index-- Plan of Treatment DateTypeDepartmentCare Team (Latest Contact Info)Ovvqlygzjky74/07/2025 2:00 PM ESTOffice Visit [facility] [address] [place] [address] Samreen Chen MD [address] [place] [address] Health MaintenanceDue DateLast DoneCommentsDepression Smtldacbu12/25/2010 Varicella Vaccines (1 of 2 - 13+ 2-dose series)2011dult Oynggvh1802/07/2020 COVID-19 Vaccine ( - 2024- season)2025Influenza Vaccine (#1)2025 HPV Vaccines (1 - 3-dose SCDM series)2025Pap Smear11/05/52977411/05/2024 Zoster Vaccines (1 of 2)02/07/2048HIB VaccinesAged OutNo [...] Montesinos TypeRelation to PatientDate of BirthPhone Billing AddressPersonal/XupidjNxld[address] [facility] [place] [address] Care Teams Team MemberRelationshipSpecialtyStart DateEnd Date Jack Woods DO [address] [facility] [place] [address] PCP - GeneralObstetrics and Gynecology01/24/25
--- OUTSIDE RECORDS SUMMARY | 2025-03-17 14:24 | XMS_ITS | Encounter Summary ---
Author Organization [facility] Address [address] [facility] [place] [address] Care Team Providers Care Nurse Practitioner Manager Name Role Phone Alberto Mayes MD Primary Care Provider Encounter Details DateTypeDepartmentCare Team (Latest Contact Info)Oqyxvbjvzis19/29/2025amboo flowsheet RIMMA GALDAMEZ [address] [place] [address] Vielka Romero, JAZZY [address] [place] [address] Social History Tobacco UseTypesPacks/DayYears UsedDateSmoking Tobacco: NeverAlcohol UseStandard Drinks/WeekCommentsNever0 (1 standard drink = 0.6 oz pure alcohol)Caffeine intake: 3-4 cups per dayEstimated Date of HzlotmotBeglqlkjUmo75/16/2025 Based on last menstrual period of 07/23/2024Sex and Gender InformationValueDate RecordedSex Assigned at BirthNot on fileLegal OepOmpydm34/15/2023 7:33 PM EDT Gender IdentityNot on fileSexual OrientationNot on filedocumented as of this encounter Plan of Treatment DateTypeDepartmentCare Team (Latest Contact Info)Ynwsrjogrds71/12/2025 2:40 PM ESTRoutine [facility] [address] [place] [address] Jack Woods, DO [address] [place] [address] [place] [address] documented as of this encounter Visit Diagnoses Not on filedocumented in this encounter Care Teams Team MemberRelationshipSpecialtyStart DateEnd Date Alberto Mayes MD PCP - Qlegdnr73/19/23documented as of this encounter
--- OUTSIDE RECORDS SUMMARY | 2025-03-17 14:24 | XMS_ITS | Clinical Summary ---
Author Organization [employer] Address [id number] [address] [place] [address] Care Team Providers Care Civil Structural Designer Name Role Phone Unavailable Primary Care Provider Unavailabl e Allergies Active AllergyReactionsCriticalityNoted DateCommentsCephalexinNausea And Ofutwdci26/23/4051PjfhnjbqvmgbpJykctbku07/23/2025 PROJECTILE VOMITING PrednisoneNausea And Iufsbuaa45/23/2025 Medications MedicationSigDispense QuantityRefillsLast FilledStart DateEnd DateStatus ondansetron (ZOFRAN) 4 mg tablet Take 1 tablet (4 mg total) by mouth every 8 (eight) hours as needed for nausea or vomiting.Active aspirin 81 mg chewable tablet Chew 1 tablet (81 mg total) and swallow in the morning.Active omeprazole (PriLOSEC) 20 mg capsule Take 1 capsule (20 mg total) by mouth in the morning.Active PNV 99-ompa-pugdzozjyaww-dha 29 mg iron-1 mg -350 mg comb pack,tablet DR,capsule DR Take 1 tablet by mouth in the morning.Active Family History Medical HistoryRelationNameCommentsDevelopmental delayCousinHeart defectCousin Autoimmune [...] money to get more.Never True11/12/2024Estimated Date of EnemjmccRocqbfqqAll27/16/2025ased on UltrasoundSex and Gender InformationValue Date RecordedSex Assigned at BirthNot on fileLegal PyaAdbmqa53/14/2023 2:00 PM EDTGender IdentityNot on fileSexual OrientationNot on file Last Filed Vital Signs Vital SignReadingTime TakenCommentsBlood Kfchfiet780/7311/12/2024 8:47 AM EDT Dxgnc424811/12/2024 8:47 AM EDTTemperature--Respiratory Rate--Oxygen Saturation-- Inhaled Oxygen Concentration--Yvkzyl19.2 kg (170 lb 3.2 oz)11/12/2024 8:47 AM WZQNepjlo836.6 cm (5' 5.98 )11/12/2024 8:47 AM EDTBody Mass Index27.48011/12/2024 8:47 AM EDT Plan of Treatment Health MaintenanceDue DateLast DoneCommentsDepression Eejlljdxx42/25/2010dult BMI Follow Up Plan02/07/2016DTaP,Tdap and Td Vaccines (2 - Td or Tdap)12/24/2019 12/23/2009Influenza Nrwwwqa81RSV ( or age 60+ yrs) (1 - Risk 1-dose series)03/04/2025dult BMI Wjbhnwzgb21 Tobacco Zargorcuj60Pap Smear Medical Devices Not on file Insurance [address] [place] [address]
--- OUTSIDE RECORDS SUMMARY | 2025-03-17 14:24 | XMS_ITS | Encounter Summary ---
Author Organization [facility] Address [address] [place] [address] Care Team Providers Care Lining Ironer Name Role Phone Alberto Mayes MD Primary Care Provider [phone] Reason for Visit * ReasonCommentsMed Refill Encounter Details DateTypeDepartmentCare Team (Latest Contact Info)Hcpxfwvsljt36/25/2025Refill [facility] [address] [place] [address] Jack Woods DO [address] [place] [place], [place] [id number] Gastroesophageal reflux in ([facility]); Nausea and vomiting during ([facility]) Social History Tobacco UseTypesPacks/DayYears UsedDateSmoking Tobacco: NeverAlcohol UseStandard Drinks/WeekCommentsNever0 (1 standard drink = 0.6 oz pure alcohol)Caffeine intake: 3-4 cups per dayEstimated Date of HcsjnycfDxlmljlxFin14/16/2025 Based on last menstrual period of 07/23/2024Sex and Gender InformationValueDate RecordedSex Assigned at BirthNot on fileLegal GhzUslikt50/15/2023 7:33 PM EDT Gender IdentityNot on fileSexual OrientationNot on filedocumented as of this encounter Plan of Treatment DateTypeDepartmentCare Team (Latest Contact Info)Eblgvjqmpzd44/12/2025 2:40 PM ESTRoutine [facility] [address] [place] [address] Jack Woods DO [address] [place] [address] documented as of this encounter Visit Diagnoses Diagnosis Gastroesophageal reflux in ([facility]) Nausea and vomiting during ([facility]) documented in this encounter Care Teams Team MemberRelationshipSpecialtyStart DateEnd Date Alberto Mayes MD PCP - Scdlnel74/19/23documented as of this encounter
--- OUTSIDE RECORDS SUMMARY | 2025-03-17 14:24 | XMS_ITS | Clinical Summary ---
Author Organization [facility] Address [address] [place] [address] Care Team Providers Care System Programmer Name Role Phone Alberto Mayes MD Primary Care Provider Allergies Active AllergyReactionsCriticalityNoted DateCommentsCephalexinNausea And MfxeijwoGes20/20/2019 Other Reaction(s): severe vomiting Other Reaction(s): Vomiting Other Reaction(s): severe vomiting ??Other Reaction(s): Vomiting CiprofloxacinGI bzuutusedexGcd99/22/2019 Other Reaction(s): GI Intolerance Pt states projectile vomiting. Other Reaction(s): Vomiting PROJECTILE VOMITING PROJECTILE VOMITING Other Reaction(s): GI Intolerance ??Pt states projectile vomiting. ??Other Reaction(s): Vomiting ??PROJECTILE VOMITING Pt states projectile vomiting. PrednisoneNausea And EuyyejvoIao40/20/2019 Other Reaction(s): severe vomiting Other Reaction(s): Vomiting Other Reaction(s): severe vomiting ??Other Reaction(s): Vomiting Medications MedicationSigDispense QuantityRefillsLast FilledStart DateEnd DateStatus aspirin 81 MG oral suspension 4Active Vit w/Pn-Itexnvkup-ND (PNV PO) Active ondansetron (Zofran) 4 MG tablet Indications:Gastroesophageal reflux in ([facility]),Nausea and vomiting during ([facility])TAKE 1 TABLET BY MOUTH EVERY 6 HOURS NEEDED FOR NAUSEA AND VOMITING 30 tablet 5Active hydrocortisone (Anusol-HC) 25 MG suppository Indications:Hemorrhoids, unspecified hemorrhoid typeInsert 1 suppository (25 mg) into the rectum in the morning and 1 suppository (25 mg) before bedtime. 6 suppository 5Active ondansetron (Zofran) 4 MG tablet Indications:Gastroesophageal reflux in ([facility]),Nausea and vomiting during ([facility])Take 1 tablet (4 mg) by mouth every 6 (six) hours if needed for nausea or vomiting for up to 30 doses Take 1 tablet by mouth every 6 hours as needed for nausea. 30 tablet Discontinued Encounters DateTypeDepartmentCare QagwIxgmdxctafh92/29/2025 2:40 PM EDTRoutine [facility] [place] [facility] [place] [phone] Vielka Romero NP Hemorrhoids, unspecified hemorrhoid type (Primary Dx); Third trimester ([facility]); 33 weeks gestation of ([facility])03/12/2025amboo flowsheet [facility] [place] [facility] [address] [place] [address] [place] [phone] Vielka Romero NP 03/08/2025Refill [facility] [place] [facility] [address] [place] [address] [place] [phone] Jack Woods DO Gastroesophageal reflux in ([facility]); Nausea and vomiting during ([facility])02/27/2025 11:00 AM EDTAncillary Procedure [facility] [place] [facility] [address] [place] [address] [place] [phone] size inconsistent with dates ([facility])02/25/2025 1:50 PM EDTRoutine [facility] [place] [facility] [place] [phone] Jack Woods DO Third trimester ([facility]); 31 weeks gestation of ([facility]); POTS (postural orthostatic tachycardia syndrome); Pain of right lower zlrniuhgv13/14/2025Bamboo flowsheet [facility] [address] [facility] [place] [phone] Jack Woods, 02/11/2025 9:50 AM EDTRoutine [facility] [place] [facility] [address] [facility] [place] [phone] Vielka Romero, JAZZY size inconsistent with dates ([facility]) (Primary Dx); Third trimester ([facility]); 29 weeks gestation of ([facility])02/11/2025amboo flowsheet [facility] [place] [facility] [address] [facility] [place] [phone] Vielka Romero NP 02/05/2025Telephone [facility] [place] [facility] [address] [facility] [place] [phone] Jack Woods, DO 01/29/2025linisync Result Encounter [facility] External Department Unsolicited Jayla Art PA 01/28/2025 8:40 AM EDTRoutine [facility] [place] [facility] [address] [facility] [place] [phone] Jayla Art PA Second trimester ([facility]); 27 weeks gestation of ([facility]); Elevated glucose tolerance test01/28/2025amb flowsheet [facility] [place] [facility] [address] [facility] [place] [address] Jayla Art PA 01/27/2025linisync Result Encounter [facility] External Department Unsolicited Jack Woods, DO 01/22/2025bstract [facility] [place] [facility] [address] [facility] [place] [phone] Jack Woods, DO 01/21/2025linisync Result Encounter [facility] External Department Unsolicited Jayla Art PA 01/16/2025 9:20 AM EDTOffice Visit [facility] [address] [facility] [place] [address] Jack Woods, 25 weeks gestation of ([facility]); Second trimester ([facility]); Palpitations; Syncope, unspecified syncope type; Gastroesophageal reflux in ([facility])01/16/2025Telephone [facility] [place] [facility] [address] [facility] [place] [address] Kelley Sepulveda LPN 01/16/2025amboo flowsheet [facility] [place] [facility] [address] [facility] [place] [address] Jack Woods, 01/09/2025Telephone [facility] [address] [facility] [place] [address] Jayla Art PA 01/07/2025 1:50 PM EDTRoutine [facility] [address] [facility] [place] [address] Jayla Art PA Second trimester ([facility]); 23 weeks gestation of ([facility]); Palpitations; Ekhkpygdowy14/26/2025amboo flowsheet [facility] [address] [facility] [place] [address] Jayla Art PA 01/03/2025Telephone [facility] [address] [facility] [place] [phone] Jack Woods, 12/31/2024 2:10 PM EDTRoutine [facility] [address] [facility] [place] [address] Jack Woods, Second trimester ([facility]); 23 weeks gestation of ([facility]); Diabetes mellitus azafhwhyj89/19/2025amboo flowsheet [facility] [address] [facility] [place] [address] Jack Woods DO 12/31/2024Travelfrom Last 3 Months Family History Medical HistoryRelationNameCommentsHypertensionFatherHeart diseaseMaternal GrandfatherDiabetesMaternal GrandmotherKidney failurePaternal Grandfatherliver failurePaternal GrandfatherHeart diseasePaternal GrandmotherRelationNameStatus CommentsFatherAliveMaternal GrandfatherDeceasedMaternal GrandmotherDeceased MotherAlivePaternal GrandfatherDeceasedPaternal GrandmotherDeceased Social History Tobacco UseTypesPacks/DayYears UsedDateSmoking Tobacco: Never Tobacco Cessation:Counseling Given: Not Answered Alcohol UseStandard Drinks/WeekCommentsNever0 (1 standard drink = 0.6 oz pure alcohol)Caffeine intake: 3-4 cups per dayEstimated Date of Delivery TqaoswstWju23/16/2025Based on last menstrual period of 07/23/2024Sex and Gender InformationValueDate RecordedSex Assigned at BirthNot on fileLegal SexFemale 07/27/2022 7:33 PM EDTGender IdentityNot on fileSexual OrientationNot on file Last Filed Vital Signs Vital SignReadingTime TakenCommentsBlood Ocqzyseo477/7203/12/2025 2:49 PM EDT Pulse--Temperature--Respiratory Rate--Oxygen Saturation--Inhaled Oxygen Concentration--Czdkhy87.8 kg (189 lb 4 oz)03/12/2025 2:49 PM NORZpiotc109.6 cm (5' 6 )2024 1:52 PM EDTBody Mass Index30.55002/06/2024 1:52 PM EDT Plan of Treatment DateTypeDepartmentCare Team (Latest Contact Info)Rybisygypvs57/12/2025 2:40 PM ESTRoutine [facility] [place] [facility] [address] [facility] [place] [phone] Jack Woods, DO [address] [facility] [address] [place], [place] [phone] Procedures Procedure NamePriorityDate/TimeAssociated DiagnosisCommentsPOCT URINALYSIS WPJUAUJCKrzscjn55/29/2025 2:55 PM EDT Third trimester ([facility]) US OB FOLLOW UP TRANSABDOMINAL MRTSMQMMCatkymp19/16/2025 11:33 AM EDT size inconsistent with dates ([facility]) POCT URINALYSIS JINLJLSLTstengv28/14/2025 2:15 PM EDT Third trimester ([facility]) POCT URINALYSIS TLYDYCRCLkuwmqr88/30/2025 9:59 AM EDT Third trimester ([facility]) GLUCOSE TOLERANCE 3 KENWOxfupen61/17/2025 8:02 AM EDT POCT URINALYSIS ELBXJLMHDglbfht81/16/2025 8:57 AM EDT Second trimester ([facility]) GLUCOSE 1 HKBVLdvrelf23/15/2025 9:23 AM EDT CA ECHO DOPPLER PAHQAQIH25/09/2025 9:58 AM EDT POCT URINALYSIS NRJUVLMFIjecufd53/04/2025 9:45 AM EDT 25 weeks gestation of ([facility]) Second trimester ([facility]) POCT URINALYSIS KFFVVGPLLbazuvq53/26/2025 2:18 PM EDT Second trimester ([facility]) POCT URINALYSIS VVTMEDJUQclgojr85/19/2025 2:41 PM EDT Second trimester ([facility]) 23 weeks gestation of ([facility]) from Last 3 Months Results * (ABNORMAL) POCT urinalysis dipstick manually resulted (03/12/2025 2:55 PM EDT) Only the most recent of7 resultswithin the time period is included. ComponentValueRef RangeTest MethodAnalysis TimePerformed AtPathologist Signature Color, UAYellowClarity, UAClearGlucose, UANegativeNegative - 2000(110) ++++ mg/dLBilirubin, UANegativeNegative - 4(70) +++ mg/dLKetones, UANegativeNegative - 160(16) ++++ mg/dLSpec Grav, UA1.0101 - 1.03Blood, UANegativeNegative - 50 Clarke/mcLpH, UA8.05 - 9Protein, UANegativeNegative - 2000(20) ++++ mg/dL Urobilinogen, UA0.20.2 - 12 mg/dLLeukocytes, UAPositiveNegative - 500+++ Kamaljit/mcL Comment:2+Nitrite, UANegativeNegative - PositiveSpecimen (Source)Anatomical Location / LateralityCollection Method / VolumeCollection TimeReceived TimeUrine 03/12/2025 2:55 PM EDT Narrative Authorizing ProviderResult TypeResult StatusVielka Romero NPPOINT OF CARE TEST ENTER/EDIT ORDERABLESFinal Result * US OB follow up transabdominal approach [...] BY: Renan Francis MD Authorizing ProviderResult TypeResult StatusRichydayton Heather NPIMG OB US PROCEDURESFinal Result * GLUCOSE TOLERANCE 3 HOUR (01/29/2025 [...] 8:02 AM EDT01/29/2025 8:03 AM EDT [facility]ative [facility] - 01/29/2025 11:34 AM EDT Authorizing ProviderResult TypeResult StatusAmy Cali PALAB BLOOD ORDERABLES Final ResultPerforming OrganizationAddressCity/State/ZIP CodePhone Number [facility] * (ABNORMAL) GLUCOSE 1 HOUR (01/27/2025 9:23 AM EDT)ComponentValueRef RangeTest MethodAnalysis TimePerformed AtPathologist SignatureGLUCOSE 1 GTCQ470(H)<130 mg/dLTBHSpecimen (Source)Anatomical Location / LateralityCollection Method / VolumeCollection TimeReceived Time01/27/2025 9:23 AM EDT01/27/2025 9:24 AM EDT Narrative [facility] - 01/27/2025 10:14 AM EDT Authorizing ProviderResult TypeResult StatusCoreashish Woods DOLAB BLOOD ORDERABLES Final ResultPerforming OrganizationAddressCity/State/ZIP CodePhone Number [facility] * CA ECHO DOPPLER COMPLETE (01/21/2025 9:58 AM EDT)Anatomical RegionLaterality ModalityOtherSpecimen (Source)Anatomical Location / LateralityCollection Method / VolumeCollection TimeReceived Time01/21/2025 9:58 AM EDT Narrative 01/21/2025 9:59 AM EDT [facility] [place] [facility] ?[address] ? [place] [address] ? Cardiology Report ? Signed ? Patient: SERVANDO,EDDIE ? MR#: [id number] ?? : 2000 ?Acct:[id number] ?? Age/Sex: 24 / F ?ADM Date: 09/08/25 ?? Loc: CARD ? Attending Dr: Jayla Art ? Ordering Physician: Jayla Art ?? Date of Service: 01/20/25 ?? Procedure(s): CA echo doppler complete ?? Accession Number(s): [id number] ? cc: Jayla Art; Alberto Mayes M.D. ? Patient Name: ? DAPHNEY MONTESINOS ? MR#: [id number] ? : 2000 ? Exam Date: 01/20/2025 [...] 0959 ? DD/ 0958 ? TD/TT: ? Hand Decorator: Procedure Note Radiology, Radiologist, - 01/21/2025 [place] [address] Cardiology Report Signed Patient: DAPHNEY MONTESINOS JMR#: [id number] : 2000Acct:[id number] Age/Sex: FADM Date: 01/20/25 Loc: CARD Attending Dr: Jayla Art Ordering Physician: Jayla Art Date of Service: 01/20/25 Procedure(s): CA echo doppler complete Accession Number(s): [id number] cc: Jayla Art; Alberto Mayes M.D. Patient Name: DAPHNEY MONTESINOS MR#: [id number] : 2000 Exam Date: 01/20/2025 Ordering Doctor: [...] 2.75 cm Aortic Valve AoV Area (Peak Jaskarna): 2.34 cm2, 2.34 cm2 Peak Velocity(Antegrade Flow): 1.23 m/s Peak Gradient(Antegrade Flow): 6.09 mm[Hg] Tricuspid Valve Pulmonic Valve Peak Gradient: 4.25 mm[Hg], 4.52 mm[Hg] Right Atrium Right Atrium Systolic Pressure: 36.41 ml, 36.41 ml Dictated by: Randy Marie M.D. on 01/21/2025 at 09:56 Approved by: Randy Marie M.D. on 01/21/2025 at 09:58 Dictated By: Randy Marie M.D. Signed By:01/21/25958 DD/ 7 TD/TT: Hand Decorator: Authorizing ProviderResult TypeResult StatusAmy Geneva [facility] IMAGINGFinal Result from Last 3 Months Insurance * Guarantor: Servando DaphneyAccount TypeRelation to PatientDate of BirthPhoneBilling AddressPersonal/ZmhgjlBaic2000 [facility] [address] Care Teams Team MemberRelationshipSpecialtyStart DateEnd Date Alberto Mayes MD [facility] - Buwvhui15/19/23
--- OUTSIDE RECORDS SUMMARY | 2025-03-17 14:24 | XMS_ITS | Clinical Summary ---
Author Organization [facility] Address [facility] [place] [address] Care Team Providers Care Risk Control Consultant Name Role Phone Alberto Mayes MD Primary Care Provider [phone] Allergies Active AllergyReactionsCriticalityNoted DateCommentsCiprofloxacinGI Intolerance Low08/03/2018 Pt [...] Date RecordedSex Assigned at BirthNot on fileLegal MfzTwtuag25/26/2019 11:38 AM ESTGender TftmlsfnLwbmza59/22/2019 1:23 PM EDTSexual OrientationStraight 08/03/2018 1:23 PM EDT Last Filed Vital Signs Vital SignReadingTime TakenCommentsBlood Slzwxewd751/7004 3:04 PM EDT Mqgiu3484 3:04 PM TPPSfdgbiseslz90.4 ??C (97.5 ??F)08/15/2018 3:04 PM EDTRespiratory Ycfu3785 3:04 PM EDTOxygen Saturation--Inhaled Oxygen Concentration--Ygtuma89.8 kg (131 lb 12.8 oz)08/15/2018 3:04 PM WIASaoldj691.2 cm (5' 4.25 )08/15/2018 3:04 PM EDTBody Mass Index22.45008/15/2018 3:04 PM EDT Plan of Treatment Health MaintenanceDue DateLast DoneCommentsWellness Visit2001Depression Screening/Follow-Up (PHQ-2/9)2010HIV Mfiheykzg27/25/2013Hepatitis C Dfkmycrya86/25/2016MMR Vaccines (1 of 1 - Standard series)01/18/2017Varicella Vaccines (2 of 2 - 13+ 2-dose series)Hepatitis B Vaccines (1 of 3 - 19+ 3-dose series)2017Pap Smear2019 Tetanus/Diphtheria/Pertussis (2 - Td or Tdap)COVID-19 Vaccine ( - season)2025Influenza Vaccine (#1) HPV Vaccines (1 - 3-dose SCDM series)2025Zoster Vaccines (1 of 2) 02/07/2048RSV Vaccines (1 - 1-dose 75+ series)2073Meningococcal ACWY VaccineAged Out12/23/2009No longer eligible based on patient's age to complete this topicHIB VaccinesAged OutNo longer eligible based on patient's age to complete this topicHepatitis A VaccinesAged OutNo longer eligible based on patient's age to complete this topicIPV VaccinesAged OutNo longer eligible based on patient's age to complete this topicMeningococcal B VaccineAged OutNo longer eligible based on patient's age to complete this topicPneumococcal VaccineAged OutNo longer eligible based on patient's age to complete this topicRotavirus VaccinesAged OutNo longer eligible based on patient's age to complete this topic Insurance Care Teams Team MemberRelationshipSpecialtyStart DateEnd Date Alberto Mayes MD [address] [place], [place] [id number] PCP - [facility]08/03/18
--- OUTSIDE RECORDS SUMMARY | 2025-03-17 14:24 | XMS_ITS | Clinical Summary ---
Author Organization [facility] Address [address] [facility], [address] [place] [address] Care Team Providers Care Semiconductor Lab Technician Name Role Phone Unavailable Primary Care Provider Unavailabl e Allergies Active AllergyReactionsCriticalityNoted DateCommentsCephalexinNausea And CczfiiasCgz89/20/2019PrednisoneNausea And ZrxfcwcaCwk44/20/2019 Medications MedicationSigDispense QuantityRefillsLast FilledStart DateEnd DateStatus norethindrone-ethinyl estradiol-iron (AKIL FE ) 1.5-30 MG-MCG tablet Take 1 tablet by mouth dailyActive Social History Tobacco UseTypesPacks/DayYears UsedDateSmoking Tobacco: NeverSmokeless Tobacco: NeverAlcohol UseStandard Drinks/WeekCommentsNot Currently0 (1 standard drink = 0.6 oz pure alcohol)CommentsNoSex and Gender InformationValueDate RecordedSex Assigned at BirthNot on fileLegal ZfdNmrgzw69/20/2019 4:01 AM EDT Gender IdentityNot on fileSexual OrientationNot on file Last Filed Vital Signs Vital SignReadingTime TakenCommentsBlood Gsottiba015/6409 6:41 AM EDT Dvlao048602/01/2019 6:41 AM BEIAoizysbusbg96.7 ??C (98 ??F)02/01/2019 4:30 AM EDT Respiratory Qkss0926 4:30 AM EDTOxygen Kzpwirapcy021%02/01/2019 4:30 AM EDTInhaled Oxygen Concentration--Kkcpmj98.9 kg (129 lb 14.4 oz)02/01/2019 4:30 AM EDTHeight--Body Mass Index-- Plan of Treatment Not on file Insurance
--- OUTSIDE RECORDS SUMMARY | 2025-03-17 14:27 | XMS_ITS | CCD ---
Author Organization [facility] Care Team Providers Care Veneer Department Manager Name Role Phone KEYLA LEYVA Attending Unavailable Unavailable Primary Care Provider Unavailcasimiro Anton Rina Unavailable MD Zachary Mayes Primary Care Provider DO Paloma Vazquez Attending Provider MD Zachary Mayes Primary Care Provider [phone] MD Jackie Reardon Attending Provider DO Jack Woods Attending Provider Paloma Vazquez DO Unavailable [phone] Gerber NO, Alberto Primary Care Provider [facility], [facility] [place] Primary Care Provider Jack Woods DO Attending Provider [phone] Unavailable Primary Care Provider UnavailZachary Tracy Primary [...] Unavailable Alberto Mayes MD Primary Care Provider [phone] PEGGY, JACK R Referring Unavailable KAY BENTLEY Attending Unavailable PEGGY, JACK Referring Unavailable PEGGY, JACK Attending Unavailable PEGGY, JACK Attending Unavailable CALI, JAYLA Attending Unavailable PEGGY, JACK Attending Unavailable CALI, JAYLA Attending Unavailable PEGGY, JACK Attending Unavailable CALI, JAYLA Attending Unavailable HEATHER, HAZEL Attending Unavailable PEGGY, JACK Attending Unavailable HEATHER, HAZEL Attending Unavailable PEGGY, JACK Attending Unavailable Allergies Allergy ClassificationReported Allergen(s)Allergy TypeDate of OnsetReaction(s) Facility (20 sources)Cephalexin; Translations: [CEPHALEXIN]Drug Webqnpb54-69-7137Wdfjeo And [place], [place] (16 sources)predniSONE; Translations: [PREDNISONE]Drug Qxjquos43-68-5662Vrcrhz And [place], [place] (20 sources)Ciprofloxacin; Translations: [CIPROFLOXACIN]Drug Cerizal83-03-3277 Vomiting, [facility] intoleranceNOFreeman [facility] System ([facility] sources)PrednisonePropensity to adverse doynuibub19-17-0396Ijrkta And VomitingFreeman Health System (1 source)CephalexinDrug Rscueqh54-23-0152QijroozjiK[facility] (1 source)predniSONEDrug Tocpqcg94-59-5703NzdwamevmKettering Health [facility] Repository Medications Current Medications MedicationDrug Class(es)DatesSig (Normalized)Sig (Original)aspirin 81 mg oral tablet (20 sources)Platelet Aggregation Inhibitor, Nonsteroidal Anti-inflammatory Drug Start: 39-16-0398wwalkaf 81 MG oral suspension 10/14/2023 Activeaspirin 81 mg chewable tablet Chew 1 tablet (81 mg total) and swallow in the morning. Active bisacodyl 10 mg rectal suppository (2 sources)Stimulant LaxativeStart: 10-08-2024 End: 31-38-3504hbimukpyv (Dulcolax) 10 MG suppository Indications: Other constipation Insert 1 suppository (10 mg)into the rectum Daily for 4 days 4 suppository 10/08/2024 10/12/2024 Activedocusate sodium 100 mg oral capsule (20 sources) End: 32-38-5546mdtu 1 capsule by mouth once dailydocusate sodium (Colace) 100 MG capsule Take 100 mg by mouth Daily 01/16/2025 DiscontinuedDoxylamine Succinate, Sleep, (UNISOM PO) (20 sources) End: 35-05-2494Wyvuiudtff Succinate, Sleep, (UNISOM PO) Take by mouth 01/16/2025 DiscontinuedDoxylamine Succinate, Sleep, (UNISOM PO) Take by mouth Active ethinyl estradiol 0.03 mg / ferrous fumarate 75 mg / norethindrone 1.5 mg oral tablet (1 source)Estrogentake 1 tablet by mouth once daily, then take 1.5-30 tablets by mouthnorethindrone-ethinyl estradiol-iron (AKIL FE 1.5/30) 1.5-30 MG-MCG tablet Take 1 tablet by mouth daily 0 Activehydrocortisone acetate 25 mg rectal suppository (2 sources)CorticosteroidStart: 03-12-2025 End: 97-85-4891zqiflzcyjrucqe (Anusol-HC) 25 MG suppository Indications: Hemorrhoids, unspecified hemorrhoid type Insert 1 suppository (25 mg) into the rectum in the morning and 1 suppository (25 mg) before bedtime. 6 suppository 03/12/2025 03/15/2025 Activeibuprofen 600 mg oral tablet (10 sources)Nonsteroidal Anti-inflammatory DrugStart: 32-22-9582suux 1 tablet by mouth every six hours as needed for painomeprazole 40 mg delayed release oral capsule (20 sources)Proton Pump InhibitorStart: 10-08-2024 End: 24-45-7805tnix 1 capsule by mouth before mealtimeomeprazole (PriLOSEC) [address] capsule Indications: Gastroesophageal Reflux Disease , Heartburn Take 1 capsule (40 mg) by mouth in the morning. Take before meals. Do not crush or chew. 30 capsule 3 10/08/2024 01/16/2025 DiscontinuedStart: 09-19-2024 End: 79-50-6274bqkd 1 capsule by mouth before mealtimeomeprazole (PriLOSEC) [address] capsule Indications: Gastroesophageal Reflux Disease , Heartburn Take 1 capsule (20 mg) by mouth in the morning. Take before meals. Do not crush or chew. 30 capsule 3 09/19/2024 10/08/2024 Discontinued (Reorder)ondansetron 4 mg oral tablet (20 sources)Serotonin-3 Receptor AntagonistStart: 63-63-7493ihej 1 tablet by mouth every six hours as needed for nausea and vomitingondansetron (Zofran) 4 MG tablet Indications: Gastroesophageal reflux in ([facility]-HCC) , Nausea and vomiting during ([facility] TAKE 1 TABLET BY MOUTH EVERY 6 HOURS NEEDED FOR NAUSEAAND VOMITING 30 tablet 3 03/10/2025 ActiveStart: 55-33-0948mvjx 1 tablet by mouth every six hours as needed for nausea and nausea, then take 1 tablet by mouthevery six hours as needed for nausea and nauseaondansetron (Zofran) 4 MG tablet Indications: Gastroesophageal reflux in ([facility]) , Nausea and vomiting during ([facility] Take 1 tablet (4 mg) by mouth every 6 (six) hours if needed for nausea or vomiting for up to 30 doses Take 1 tablet by mouth every 6 hours as needed for nausea. 30 tablet 3 11/20/2024 ActiveStart: 58-65-4912gnhl 1 tablet by mouth every six hours as needed for nausea and nausea, then take 1 tablet by mouthevery six hours as needed for nausea and nauseaondansetron (Zofran) 4 MG tablet Indications: Gastroesophageal reflux in ([facility]) , Nausea and vomiting during ([facility] Take 1 tablet (4 mg) by mouth [...] as needed for nausea or vomiting. ActivePNV 60-laxd-tokbgzexsoms-dha 29 mg iron-1 mg -350 mg comb pack,tablet DR,capsule DR (2 sources)take 1 tablet by mouth in the morningPNV 23-bckj-xxzxdcrurieo-dha 29 mg iron-1 mg -350 mg comb pack,tablet DR,capsule DR Take 1 tablet by mouth in the morning. Activepolysaccharide iron complex 391 mg oral capsule (5 sources)Start: 01-07-2025 End: 15-27-1019kbre 1 capsule by mouth once dailyiron polysaccharides (ProFe) 391.3 (180 Fe) MG capsule Indications: Second trimester ([facility]) Take 1 capsule (391.3 mg) by mouth Daily 30 capsule 6 01/07/2025 01/16/2025 DiscontinuedpredniSONE 20 mg oral tablet (1 source)Start: 38-74-8341vrty 1 tablet by mouth every twelve hoursprednisone 20 MG 1 tablet Orally BID for 5 Mar, ActivePrenatal Vit w/Bo-Ixxiceplg-OI (PNV PO) (20 sources) Vit w/Yg-Mzmtzsiyn-MT (PNV PO) ActiveProgesterone 200 MG suppository (4 sources)Start: 09-05-2024 End: 47-05-2737Pqnxsgtwoepl 200 MG suppository Indications: History of miscarriage Insert 200 mg into the vagina in the morning and 200 mg before bedtime. Do all this for 15 days. 30 suppository 3 09/05/2024 09/20/2024 Active Start: 02-14-2024 End: 44-87-6762Dtqianollthj 200 MG suppository Indications: History of miscarriage Insert 200 mg into the vagina in the morning and 200 mg before bedtime. 30 suppository 3 02/14/2024 03/15/2024 ActiveStart: 2024 End: 18-67-5276Iqxjbbcmfntl 200 MG suppository Indications: History of miscarriage Insert 200 mg into the vagina at bedtime Insert suppository vaginally every night at bedtime until 12 weeks gestation 30 suppository 3 2024 03/07/2024 Activepyridoxine hydrochloride 25 mg oral tablet (20 sources) End: 74-27-3855qgde 1 tablet by mouth once dailypyridoxine (Vitamin B-6) 25 MG tablet Take 25 mg by mouth Daily 01/16/2025 DiscontinuedtraMADol hydrochloride 50 mg oral tablet (10 sources)Opioid AgonistStart: 17-25-6948rcpd 1 tablet by mouth every four to six hours as needed for pain Completed/Discontinued Medications MedicationDrug Class(es)DatesSig (Normalized)Sig (Original)acetaminophen 325 mg / HYDROcodone bitartrate 5 mg oral tablet (1 source)Opioid AgonistStart: 02-01-2019 End: 35-62-3449ZZWOTjvufoe-acetaminophen (NORCO) 5-325 MG per tablet 1 tablet progesterone 200 mg oral capsule (1 source)Progesterone End: 05-23-7377dseo 1 capsule by mouth in the morningprogesterone (PROMETRIUM) 200 mg capsule Take 1 capsule (200 mg total) by mouth in the morning. 11/12/2024 Discontinued Problems Active Problems Problem ClassificationProblemDateDocumented DateEpisodic/ChronicBenign neoplasm of uterus (2 sources)Leiomyoma of uterus, unspecified; Translations: [Leiomyoma of uterus, unspecified]Onset: 98-77-0435RktifbopLkzuetb dysrhythmias (2 sources)Postural orthostatic tachycardia syndrome ; Translations: [POTS (postural orthostatic tachycardia syndrome)]55-71-2547LdjggmnOxsjeun dysrhythmias (12 sources)Palpitations; Translations: [Tachycardia]Onset: EpisodicContraceptive and procreative management (4 sources)Patient encounter status; Translations: [Encounter for procreative management, unspecified]47-25-6461RanucopaKetaojnq mellitus without complication (2 sources)Abnormal glucose tolerance test; Translations: [Other abnormal glucose]41-98-3777EairmhukDptlhr infertility (2 sources)Female infertility; Translations: [Female infertility, unspecified] 36-44-9885HjeuqyvModghgoyzwi (2 sources)Hemorrhoids; Translations: [Unspecified hemorrhoids]03-12-2025 EpisodicImmunizations and screening for infectious disease (2 sources)Exposure to sexually transmissible disorder; Translations: [Contact with and (suspected) exposure to infections with a predominantly sexual mode of transmission]27-53-7335KffqlsjcQgpsvfekx disorders (2 sources)Missed period; Translations: [Irregular menstruation, unspecified] Onset: 005377-36-8270NkkmoitDoacx complications of (5 sources)Gastroesophageal reflux disease in ; Translations: [Diseases of the digestive system complicating , unspecified trimester] 87-90-2803BclkwlneJnron complications of (1 source)Vomiting of , unspecified; Translations: [Unspecified vomiting of , unspecified as to episode of care or not applicable] 98-56-3648JcbpeeakIgmfn complications of (3 sources)Uterine fibroids affecting ; Translations: [Maternal care for benign tumor of corpus uteri, second trimester]51-51-1484WfprgxivAahmi complications of (2 sources)Maternal care for benign tumor of corpus uteri, second trimester; Translations: [Maternal care for benign tumor of corpus uteri, second trimester] Onset: 56-15-0155YydgxdzuXcrxb complications of (2 sources) size does not accord with dates; Translations: [Uterine size- date discrepancy, unspecified trimester]82-59-8936KecbztubDwxev connective tissue disease (4 sources)Pain in right lower limb; Translations: [Pain in right leg]02-26-2025 EpisodicOther endocrine disorders (2 sources)Disorder of endocrine system; Translations: [Endocrine disorder, unspecified]29-62-4342KglhvpxlJtvan female genital disorders (2 sources)Other specified conditions associated with female genital organs and menstrual cycle; Translations:[Other specified conditions associated with female genital organs and menstrual cycle]Onset: 10-46-4728LvousutqFiqpd female genital disorders (2 sources)Vaginal discharge; Translations: [Other specified noninflammatory disorders of vagina]42-30-9936BtoajaneZchwi gastrointestinal disorders (2 sources)Constipation; Translations: [Other constipation]08-50-6697Xxwsksno Other gastrointestinal disorders (4 sources)Mass of uterine adnexa; Translations: [Other specified conditions associated with female genital organs and menstrual cycle]87-06-7487Ftygnhso Other and delivery including normal (20 sources); Translations: [Encounter for supervision of normal , unspecified, unspecified trimester]63-44-3993XuouseptGbkhp screening for suspected conditions (not mental disorders or infectious disease) (1 source)Encounter for other specified screening; Translations: [Encounter for other specified screening]Onset: 82-30-5793Ovwvnnpi Other skin disorders (4 sources)Localized swelling of right lower limb; Translations: [Localized swelling, mass and lump, right lower limb]80-94-3528UkuppnpzRodda skin disorders (2 sources)Localized swelling, mass and lump, right lower limb; Translations: [Localized swelling, mass and lump, right lower limb]Onset: 44-11-0233Glepabrb Other upper respiratory infections (2 sources)Acute pharyngitis, unspecified; Translations: [Acute upper respiratory infection, unspecified]EpisodicResidual codes; unclassified (2 sources)H/O: miscarriage; Translations: [Personal history of other complications of , childbirth and the puerperium]21-82-1974Poiolgeb Residual codes; unclassified (2 sources)Gestation period, 11 weeks; Translations: [11 weeks gestation of ]66-31-3607CesxwrhfBwnxwnni codes; unclassified (2 sources)Gestation period, 16 weeks; Translations: [16 weeks gestation of ]17-18-4057UkwqryymGpcyhhhj codes; unclassified (1 source)16 weeks gestation of ; Translations: [16 weeks gestation of ]Onset: 97-68-6997UyggvuojMhwvxvxw codes; unclassified (2 sources)Gestation period, 15 weeks; Translations: [15 weeks gestation of ]01-95-0768RxpqrxdjQlulvazt codes; unclassified (2 sources)Gestation period, 19 weeks; Translations: [19 weeks gestation of ]92-47-3165FawserrmAevgbnzt codes; unclassified (4 sources)Gestation period, 23 weeks; Translations: [23 weeks gestation of ]05-10-5980BufipqtlYixecfyl codes; unclassified (2 sources)Gestation period, 25 weeks; Translations: [25 weeks gestation of ]10-27-2002KhhbnieuNmcaxtbx codes; unclassified (2 sources)26 weeks gestation of ; Translations: [26 weeks gestation of ]Onset: 60-32-5884OnkrxdsnDluvlvmm codes; unclassified (2 sources)Gestation period, 27 weeks; Translations: [27 weeks gestation of ]66-67-2751XghcniheVjoxgdiq codes; unclassified (2 sources)Gestation period, 29 weeks; Translations: [29 weeks gestation of ]21-44-7341LiagmkesFbzmdwnt codes; unclassified (2 sources)Gestation period, 31 weeks; Translations: [31 weeks gestation of ]46-83-8408TobzzmvyRbvggudo codes; unclassified (2 sources)Gestation period, 33 weeks; Translations: [33 weeks gestation of ]38-41-7715IiuwmeolFwavejq (4 sources)Syncope; Translations: [Syncope and collapse]Onset: 01-24-2025 44-65-8840HzxudgvhSecimtltfdoy (1 source)Enlarged & Heterogeneous Bilateral OvariesOnset: 11-12-2024 Past or Other Problems Problem ClassificationProblemDateDocumented DateEpisodic/ChronicAbdominal pain (1 source)Right lower quadrant pain; Translations: [Abdominal pain, right lower quadrant]EpisodicOther complications of (1 source)Supervision of with other poor reproductive or obstetric history, unspecified trimester; Translations: [Supervision of with other poor reproductive or obstetric history, unspecified trimester]Onset: 32-12-7264NkhqdrgyIakux female genital disorders (1 source)H/O gynecological disorder; Translations: [History of ovarian cyst] EpisodicResidual codes; unclassified (1 source)Personal history of other complications of , childbirth and the puerperium; Translations: [Personal history of other complications of , childbirth and the puerperium]Onset: 72-17-7762Nbfrojln Results Test NameValueInterpretationReference RangeFacilityUrinalysis macro (dipstick) panel (U)on 87-07-2713Ioiilzoxr, UANegativeNegative - 4(70) +++ mg/dLNOMS HealthcareBlood, UANegativeNegative - 50 Clarke/mcLNOMS HealthcareClarity, UAClear NOMS HealthcareColor, UAYellowNOMS HealthcareGlucose, UANegativeNegative - 2000(110) ++++ mg/dLNOMS HealthcareInterpretation and review of laboratory resultsAbnormalNOMS HealthcareKetones, UANegativeNegative - 160(16) ++++ mg/dL NOMS HealthcareLeukocytes, UAPositiveNegative - 500+++ Kamaljit/mcLNOMS Healthcare Comment on above:2+Nitrite, UANegativeNegative - PositiveNOMS HealthcarepH, UA 8.05 - 9NOMS HealthcareProtein, UANegativeNegative - 2000(20) ++++ mg/dLNOMS HealthcareSpec Grav, UA1.0101 - 1.03NOMS HealthcareUrobilinogen, UA0.20.2 - 12 mg/dLNOMS HealthcareNOMS HealthcareUS OB FOLLOW UP TRANSABDOMINAL APPROACHon 25-02-0922SY OB FOLLOW UP TRANSABDOMINAL APPROACHFINDINGS: A single, live intrauterine is present with [...] menstrual period. TRANSCRIBED BY: ELECTRONICALLY SIGNED BY: Julia YuanalNot AvailableComment on above:Order Comment: US OB SCAN FOR GROWTH Estimated Date of Delivery: 04/29/25 Gestational Age as of 02/11/2025: 64r0kWsixoaeuzt macro (dipstick) panel (U)on 99-15-1813Ieduiwczc, UANegativeNegative - 4(70) +++ mg/dLNOMS HealthcareBlood, UANegativeNegative [...] HealthcareNOMS Healthcare Urinalysis macro (dipstick) panel (U)on 51-82-7049Qypumfntf, UANegativeNegative - 4(70) +++ mg/dLNOMS HealthcareBlood, UANegativeNegative - 50 Clarke/mcLNOMS HealthcareClarity, UAClearNOMS HealthcareColor, UAYellowNOMS HealthcareGlucose, UANegativeNegative - 1999(110) ++++ mg/dLNOMS HealthcareInterpretation and review of laboratory resultsAbnormalNOMS HealthcareKetones, UANegativeNegative - 160(16) ++++ mg/dLNOMS HealthcareLeukocytes, UA3+Negative - 500+++ Kamaljit/mcLNOMS HealthcareNitrite, UANegativeNegative - PositiveNOMS HealthcarepH, UA75 - 9NOMS HealthcareProtein, UANegativeNegative - 2000(20) ++++ mg/dLNOMS HealthcareSpec Grav, UA1.011 - 1.03NOMS HealthcareUrobilinogen, UA1.00.2 - 12 mg/dLNOMS HealthcareNOMS HealthcareGLUCOSE TOLERANCE 3 HOURon 64-37-2918BFHYRIE TOLERANCE 3 HOURmg/dLNOMS HealthcareComment on above:GLU FAST 83 (<95) Col: 01/29/25 0802 GLU 1HR 163 (<180) Col: 01/29/25 0906 GLU 2HR 140 (<155) Col: 01/29/25 1005 GLU 3HR 121 (<140) Col: 01/29/25 1104 CLINISYNCNOMS HealthcareUrinalysis macro (dipstick) panel (U)on 01-28-2025 Bilirubin, UANegativeNegative - 4(70) +++ mg/dLNOMS HealthcareBlood, UANegative Negative - 50 Clarke/mcLNOMS HealthcareClarity, UAClearNOMS HealthcareColor, UA YellowNOMS HealthcareGlucose, UANegativeNegative - 2000(110) ++++ mg/dLNOMS HealthcareInterpretation and review of laboratory resultsAbnormalFreeman Health System Ketones, UANegativeNegative - 160(16) ++++ mg/dLNONV HealthcareLeukocytes, UA PositiveNegative - 500+++ Kamaljit/mcLNOMS HealthcareComment on above:3+Nitrite, UA NegativeNegative - PositiveNOMS HealthcarepH, UA6.55 - 9NOMS HealthcareProtein, UANegativeNegative - 2000(20) ++++ mg/dLNOMS HealthcareSpec Grav, UA1.011 - 1.03 NOMS HealthcareUrobilinogen, UA0.20.2 - 12 mg/dLNOFreeman Health SystemNONV Healthcare GLUCOSE 1 HOURon 44-99-9153Gxggnff [Mass/Vol]150 mg/dLHighNINF - 130 mg/dLNONV HealthcareInterpretation and review of laboratory resultsAbnormGeisinger-Shamokin [facility] CLINISYNCCASTLEVIEW [facility]OS[facility]ITAL HealthcareOffice Visiton 72-88-7153Etrhrw-up [id number] Daphney Al 2000 F Date Provider Department Center 01/24/2025 [id number] BENTLEY [facility] Family History Problem Relation Age of Onset Hypertension Father Family Status - Relation Status Age at Mother Alive Father Alive Level of Service:69493 [place] OFFICE/OUTPATIENT NEW LOW MDM 30 MINUTES Reason for Visit and Comments: New Patient [632] - Patient is here today as a new patient to establish care with cariology Syncope [506] Palpitations [651718] 26 weeks [Other]NormalCleveland Clinic Hillcrest HospitalCA ECHO DOPPLER COMPLETEon 41-72-4246FagMercy Health [facility] [address] [place] [address] Cardiology Report Signed Patient: DAPHNEY AL MR#: [id number] : 2000 Acct:[id number] Age/Sex: 24 / F ADM Date: 01/20/25 Loc: CARD Attending Dr: Jayla Art Ordering Physician: Jayla Art Date of Service: 01/20/25 Procedure(s): CA echo doppler complete Accession Number(s): [id number] cc: Jayla Art; Alberto Mayes M.D. Patient Name: DAPHNEY AL MR#: [id number] : 2000 Exam Date: 01/20/2025 Ordering Doctor: [...] M.D. Signed By: 01/21/2559 DD/ 7 TD/TT: [employer]cher[employer] Supervisor:TBHRadiology, Radiologist, - 01/21/2025 [place] [address] Cardiology Report Signed Patient: DAPHNEY AL MR#: [id number] : 2000 Acct:[id number] Age/Sex: 24 / F ADM Date: 01/20/25 Loc: CARD Attending Dr: Jayla Art Ordering Physician: Jayla Art Date of Service: 01/20/25 Procedure(s): CA echo doppler complete Accession Number(s): [id number] cc: Jayla Art; Alberto Mayes M.D. Patient Name: DAPHNEY AL MR#: [id number] : 2000 Exam Date: 01/20/2025 Ordering Doctor: [...] Marie M.D. Signed By: 01/21/2559 DD/ TD/TT: [employer] Supervisor: [facility] SystemRadiology Study observation (narrative)[facility] ECHO DOPPLER COMPLETEOrdered By: Radiologist Radiology on 14-39-2715IOPBFreeman Health System Work Phone: Urinalysis macro (dipstick) panel (U)on 01-16-2025 Bilirubin, UANegativeNegative - 4(70) +++ mg/dLNOMS HealthcareBlood, UAPositive Negative - 50 Clarke/mcLNOMS HealthcareComment on above:3+Clarity, UAClearNONV HealthcareColor, UAYellowNOMS HealthcareGlucose, UANegativeNegative - 2000(110) ++++ mg/dLNONV HealthcareInterpretation and review of laboratory resultsAbnormal [facility] HealthcareKetones, UANegativeNegative - 160(16) ++++ mg/dLNONV Healthcare Leukocytes, UAPositiveNegative - 500+++ Kamaljit/mcLNOMS HealthcareComment on above: 2+Nitrite, UANegativeNegative - PositiveNOMS HealthcarepH, UA65 - 9NOMS HealthcareProtein, UAPositiveNegative - 2000(20) ++++ mg/dLNOMS HealthcareSpec Grav, UA1.021 - 1.03NOMS HealthcareUrobilinogen, UA1.00.2 - 12 mg/dLNOMS HealthcareNOMS HealthcareUrinalysis macro (dipstick) panel (U)on 01-07-2025 [...] HealthcareNOMS Healthcare Urinalysis macro (dipstick) panel (U)on 06-59-1707Tfbhrniro, UANegativeNegative - 4(70) +++ mg/dLNOMS HealthcareBlood, UANegativeNegative - 50 Clarke/mcLNOMS HealthcareClarity, UAClearNOMS HealthcareColor, UAYellowNOMS HealthcareGlucose, UANegativeNegative - 2000(110) ++++ mg/dLNOMS HealthcareInterpretation and review of laboratory resultsAbnormalNOMS HealthcareKetones, UANegativeNegative - 160(16) ++++ mg/dLNOMS HealthcareLeukocytes, UANegativeNegative - 500+++ Kamaljit/mcLNOMS HealthcareNitrite, UANegativeNegative - PositiveNOMS HealthcarepH, UA65 - 9NOMS HealthcareProtein, UANegativeNegative - 2000(20) ++++ mg/dLNOMS HealthcareSpec Grav, UA1.011 - 1.03NOMS HealthcareUrobilinogen, UA1.00.2 - 12 mg/dLNOMS HealthcareNOMS HealthcareUrinalysis macro (dipstick) panel (U)on 94-85-7268Xczcgnnzo, UANegativeNegative - 4(70) +++ mg/dLNOMS HealthcareBlood, UANegativeNegative - 50 Clarke/mcLNOMS HealthcareClarity, UAClearNOMS Healthcare Color, UAYellowNOMS HealthcareGlucose, UANegativeNegative - 2000(110) ++++ mg/dL NOMS HealthcareInterpretation and review of laboratory resultsAbnormalNOMS HealthcareKetones, UANegativeNegative - 160(16) ++++ mg/dLNONV Healthcare Leukocytes, UAPositiveNegative - 500+++ Kamaljit/mcLNOMS HealthcareComment on above: SmallNitrite, UANegativeNegative - PositiveNOMS HealthcarepH, UA75 - 9NOMS HealthcareProtein, UANegativeNegative - 2000(20) ++++ mg/dLNOMS HealthcareSpec Grav, UA1.011 - 1.03NOMS HealthcareUrobilinogen, UA1.00.2 - 12 mg/dLNOMS HealthcareNOMS HealthcareFetal Free Cell DNA (Non-[facility] Send Out)on 56-30-4936FdlNvfccj Health SystemPATHOLOGY REQUEST FOR LAB CORPon 11-12-2024 PATHOLOGY REQUEST FOR LAB CORPCASTLEVIEW HOSPITAL HealthcareComment on above:See report. Scanned copy available in EMR.SKIN TAGFIRELANDSNOMS HealthcareIGP,APTIMA HPV,AGE GDLNon 10-98-5509KMQ GDLN ACOG TESTINGNote.[facility] HealthcareComment on above: TESTS RESULT FLAG UNITS REF RANGE LAB Clinician Provided Cytology Information Source.............Cervix No. of containers..01 ThinPrep Vial Age Algo ACOG Nery... FLAG LEGEND: L-Low Normal,H-High Normal,LL-Alert Low,HH-Alert High <-Panic Low,>-Panic High,A-Abnormal,AA-Critical Abnormal Performed at: 01 =[address] [facility] [address] Gypsy Mtz MD, IGP, RFX APTIMA HPV ASCUNote.[facility] HealthcareComment on above:TESTS RESULT FLAG UNITS REF RANGE LAB DIAGNOSIS: 02 NEGATIVE FOR INTRAEPITHELIAL LESION OR MALIGNANCY. THIS SPECIMEN WAS RESCREENED PART OF OUR GAS TENDER PROGRAM. Specimen adequacy: 02 Satisfactory for evaluation. Endocervical and/or squamous metaplastic cells (endocervical component) are present. Performed by: 02 Felicity Rosen, Disabilities Caregiver (ASC) QC reviewed by: 02 Esme Mahoney, Disabilities Caregiver ([facility]) . 02 Note: Note 02 The [...] <-Panic Low,>-Panic High,A-Abnormal,AA-Critical Abnormal Performed at: [address] [id number] Gypsy Mtz MD, Performed at: = - [facility] [address] [id number] Reprographics Technician: Gypsy Mtz MD, Phone: [phone] Performed at: [facility] [address] [id number] Reprographics Technician: Gypsy Mtz MD, Phone: [phone] SPATULA-ALONE CERVIX CLINISYNCNOMS HealthcareRECURRENT VAGINITIS (HTRX)on 21-29-4147NBFFUSQCU VAGINAE 0NOMS HealthcareATOPOBIUM VAGINAENot detectedNOMS HealthcareBVAB 2,3 (BACTERIAL VAGINOSIS ASSOCIATED BACTERIA 2, 3); MOBILUNCUS XQC5IMEO HealthcareBVAB 2,3 (BACTERIAL VAGINOSIS ASSOCIATED BACTERIA 2, 3); MOBILUNCUS SPPNot detectedNOMS HealthcareCANDIDA ALBICANS, PARAPSILOSIS, OVOCJTEYTK6EZWQ HealthcareCANDIDA ALBICANS, PARAPSILOSIS, TROPICALISNot detectedNOMS HealthcareCANDIDA GLABRATA0 NOMS HealthcareCANDIDA GLABRATANot detectedNOMS HealthcareCANDIDA HIVDZL2ZYNO HealthcareCANDIDA KRUSEINot detectedNOMS HealthcareCHLAMYDIA VQZLMWRSRQU1WXWF HealthcareCHLAMYDIA TRACHOMATISNot detectedNOMS HealthcareGARDNERELLA VAGINALIS0 NOMS HealthcareGARDNERELLA VAGINALISNot detectedNOMS HealthcareMEGASPHAERA (TYPES 1, 2)0NOMS HealthcareMEGASPHAERA (TYPES 1, 2)Not detectedNOMS Healthcare MYCOPLASMA KCTEIVNEKJ8QNLO HealthcareMYCOPLASMA GENITALIUMNot detectedNOMS HealthcareNEISSERIA LEMQTYFJYYH4GVOW HealthcareNEISSERIA GONORRHOEAENot detected NOMS HealthcareTRICHOMONAS YILODOCJI9EBFE HealthcareTRICHOMONAS VAGINALISNot detectedNOMS HealthcareNOMS HealthcarePathology Request for Lab Corpon 49-89-7235Jjgjcakvs Request for Lab CorpNormThe Christ Hospitale [facility] Comment on above:Order Comment: SKIN TAGResult Comment: See report. Scanned copy available in EMR. PERFORMED BY: [place] [id number] PATHOLOGIST REFRIGERATION BRAZER/SOLDERER JOSUÉ VALENZUELA M.D.Performed By: #### PROG #### [facility] ,Urinalysis macro (dipstick) panel (U)on 78-23-1531Ykftiwugx, UANegativeNegative - 4(70) +++ mg/dLNOMS HealthcareBlood, UANegativeNegative - 50 Clarke/mcLNOMS HealthcareClarity, UAClearNOMS HealthcareColor, UAYellowNOMS HealthcareGlucose, UANegativeNegative - 1999(110) ++++ mg/dLNOMS HealthcareInterpretation and review of laboratory resultsNormalNOMS HealthcareKetones, UANegativeNegative - 160(16) ++++ mg/dLNOMS HealthcareLeukocytes, UANegativeNegative - 500+++ Kamaljit/mcL NOMS HealthcareNitrite, UANegativeNegative - PositiveNOMS HealthcarepH, UA5.55 - 9NOMS HealthcareProtein, UANegativeNegative - 1999(20) ++++ mg/dLNOMS HealthcareSpec Grav, UA1.021 - 1.03NOMS HealthcareUrobilinogen, UA1.00.2 - 12 mg/dLNOMS HealthcareNOMS HealthcareUrinalysis macro (dipstick) panel (U)on 22-69-9620Nhszmqzrf, UANegativeNegative - 4(70) +++ mg/dLNOMS HealthcareBlood, UANegativeNegative - 50 Clarke/mcLNOMS HealthcareClarity, UAClearNOMS Healthcare Color, UAYellowNOMS HealthcareGlucose, UANegativeNegative - 2000(110) ++++ mg/dL NOMS HealthcareInterpretation and review of laboratory resultsAbnormalNOMS HealthcareKetones, UANegativeNegative - 160(16) ++++ mg/dLNOMS Healthcare Leukocytes, UATraceNegative - 500+++ Kamaljit/mcLNOMS HealthcareNitrite, UANegative Negative - PositiveNOMS HealthcarepH, UA65 - 9NOMS HealthcareProtein, UANegative Negative - 2000(20) ++++ mg/dLNONV HealthcareSpec Grav, UA1.021 - 1.03NONV HealthcareUrobilinogen, UA0.20.2 - 12 mg/dLNONV HealthcareNOMS HealthcareMLR HEMOGLOBIN A1Con 42-55-5279Jcchgch [Mass/Vol]100 mg/dLFreeman Health SystemHbA1c (Bld) [Mass fraction]5.1 %4.5 - 6.2 %NOMS HealthcareComment on above:ADA RECOMMENDED LIMIT 4.0 - 6.0 ADA THERAPEUTIC TARGET < 7.0 ACTION SUGGESTED > 7.0 CLINISYNCNONV HealthcareHCG ( test) Ql (U)on 86-22-8652Devqgxkhgsbgig and review of laboratory resultsAbnormalNONV HealthcarePreg Test, UrPositive NegativeNOAudrain Medical Center HealthcareUS OB TRANSVAGINALon 69-46-7873RL OB TRANSVAGINALEXAM: US OB TRANSVAGINAL HISTORY: Dating/viability. [...] II, MD, PHD at 22-Sep-2024 08:21:31 PM [facility] TeleradiologyNormalNot AvailableComment on above:Order Comment: US OB TRANSVAGINAL No LMP recorded.Urinalysis macro (dipstick) panel (U)on 81-86-4576Mgxelawmn, UA NegativeNegative - 4(70) +++ mg/dLNOMS HealthcareBlood, [...] II, MD, PHD at 28-Aug-2024 11:25:24 PM [facility] TeleradiologyNormalNot AvailableComment on above:Order Comment: US OB TRANSVAGINAL No LMP recorded.TB PREG QUANT HCGon 56-12-8455QEL AKWGUNIJYBMD5523gAN/mLNOMS HealthcareComment on above:5-50 0.2-1 WEEK 50-500 1-2 WEEKS 100-5,000 2-3 WEEKS 500-10,000 3-4 WEEKS 1,000-50,000 4-5 WEEKS 10,000-100,000 5-6 WEEKS 15,000-200,000 6-8 WEEKS 10,000-100,000 2-3 MONTHS CLINISYNCNOMS HealthcareTB PREG QUANT HCGon 51-32-1250UJQ FQCUKDXDJBTG515rPO/mL NOMS HealthcareComment on above:5-50 0.2-1 WEEK 50-500 1-2 WEEKS 100-5,000 2-3 WEEKS 500-10,000 3-4 WEEKS 1,000-50,000 4-5 WEEKS 10,000-100,000 5-6 WEEKS 15,000-200,000 6-8 WEEKS 10,000-100,000 2-3 MONTHS CLINISYNCNOMS HealthcareTB PREG QUANT HCGon 32-02-9096MBX MXRRKSNEIEOW404hIT/mL NOMS HealthcareComment on above:5-50 0.2-1 WEEK 50-500 1-2 WEEKS 100-5,000 2-3 WEEKS 500-10,000 3-4 WEEKS 1,000-50,000 4-5 WEEKS 10,000-100,000 5-6 WEEKS 15,000-200,000 6-8 WEEKS 10,000-100,000 2-3 MONTHS [facility] PREG QUANT HCGon 29-12-9399VNT QXMQWDLIGWKC203gYZ/mL NOMS HealthcareComment on above:5-50 0.2-1 WEEK 50-500 1-2 WEEKS 100-5,000 2-3 WEEKS 500-10,000 3-4 WEEKS 1,000-50,000 4-5 WEEKS 10,000-100,000 5-6 WEEKS 15,000-200,000 6-8 WEEKS 10,000-100,000 2-3 MONTHS [facility] PREG QUANT HCGon 51-95-0429WNI SOQZPVGGZLBT18jGS/mL NOMS HealthcareComment on above:5-50 0.2-1 WEEK 50-500 1-2 WEEKS 100-5,000 2-3 WEEKS 500-10,000 3-4 WEEKS 1,000-50,000 4-5 WEEKS 10,000-100,000 5-6 WEEKS 15,000-200,000 6-8 WEEKS 10,000-100,000 2-3 MONTHS [facility] PREG QUANT HCGon 90-50-5353WIA SYWRRUMTUOGL9wOD/mL NOMS HealthcareComment on above:5-50 0.2-1 WEEK 50-500 1-2 WEEKS 100-5,000 2-3 WEEKS 500-10,000 3-4 WEEKS 1,000-50,000 4-5 WEEKS 10,000-100,000 5-6 WEEKS 15,000-200,000 6-8 WEEKS 10,000-100,000 2-3 MONTHS [facility] PROGESTERONEon 70-72-2630PMTXAWONRHUE10.8 ng/mL.NOMS HealthcareComment on above:Follicular phase 0.1 - 0.9 Luteal phase 1.8 - 23.9 Ovulation phase 0.1 - 12.0 First trimester 11.0 - 44.3 Second trimester 25.4 - 83.3 Third trimester 58.7 - 214.0 Postmenopausal 0.0 - 0.1 Performed at: [address] [id number] Reprographics Technician: Jordin Rao PhD, Phone: [phone] [facility]ALScreenMethod[facility] PROGESTERONEon 26-89-8840LARPRWSOOXPM72.6 ng/mL.NOMS HealthcareComment on above:Follicular phase 0.1 - 0.9 Luteal phase 1.8 - 23.9 Ovulation phase 0.1 - 12.0 First trimester 11.0 - 44.3 Second trimester 25.4 - 83.3 Third trimester 58.7 - 214.0 Postmenopausal 0.0 - 0.1 Performed at: [address] [id number] Reprographics Technician: Jordin Rao PhD, Phone: [phone] [facility] PREG QUANT HCGon 34-01-9494ZVZ QUANTITATIVE<1mIU/mL NOMS HealthcareComment on above:5-50 0.2-1 WEEK 50-500 1-2 WEEKS 100-5,000 2-3 WEEKS 500-10,000 3-4 WEEKS 1,000-50,000 4-5 WEEKS 10,000-100,000 5-6 WEEKS 15,000-200,000 6-8 WEEKS 10,000-100,000 2-3 [facility] PROGESTERONEon 74-43-8980XNKVBFRHNXYR02.9 ng/mL.NOMS HealthcareComment on above:Follicular phase 0.1 - 0.9 Luteal phase 1.8 - 23.9 Ovulation phase 0.1 - 12.0 First trimester 11.0 - 44.3 Second trimester 25.4 - 83.3 Third trimester 58.7 - 214.0 Postmenopausal 0.0 - 0.1 Performed at: [address] [id number] Reprographics Technician: Jordin Rao PhD, Phone: [phone] [facility] HEMOGLOBIN A1Con 90-92-7463Rvlyurs [Mass/Vol]88 mg/dLNOMS ZtwvtbndxbKiB6k (Bld) [Mass fraction]4.7 %4.5 - 6.2 %[facility] Comment on above:ADA RECOMMENDED LIMIT 4.0 - 6.0 ADA THERAPEUTIC TARGET < 7.0 ACTION SUGGESTED > 7.0 CLINISYNCNONV HealthcareChoriogonadotropin.beta subunit [Units/volume] in Serum or PlasmaOrdered By: Jack Woods on 94-87-3704MRI.beta subunit Qn4.96 m[IU]/mL [facility] DaytonComment on above:Approximate Approximate hCG Gestational Age Range (mIU/ml) (weeks)0.2-1 5-50 1-2 50-500 2-3 100-5,000 3-4 500-10,000 4-5 1,000-50,000 5-6 10,000-100,000 6-8 15,000-200,000 8-12 10,000-100,000HCG,Quantitativeon 40-99-0687IDJ,Quantitative4.96 m[iU]/mLNormal The [facility] Physician GroupComment on above:Result Comment: Approximate Approximate hCG Gestational Age Range (mIU/ml) (weeks) 0.2-1 5-50 1-2 50-500 2-3 100-5,000 3-4 500-10,000 4-5 1,000-50,000 5-6 10,000-100,000 6-8 15,000-200,000 8-12 10,000-100,000 PERFORMED BY: [address] [place] [address] PATHOLOGIST REFRIGERATION BRAZER/SOLDERER TO ANAYA M.D.Performed By: #### HCGQNT #### [place] [address] USAChoriogonadotropin.beta subunit [Units/volume] in Serum or PlasmaOrdered By: Jack Woods on 10-49-1765VGA.beta subunit Qn108.32 m[IU]/mL [facility] DaytonComment on above:Approximate Approximate hCG Gestational Age Range (mIU/ml) (weeks)0.2-1 5-50 1-2 50-500 2-3 100-5,000 3-4 500-10,000 4-5 1,000-50,000 5-6 10,000-100,000 6-8 15,000-200,000 8-12 10,000-100,000HCG,Quantitativeon 98-66-2266LKT,Tchhyajawywm661.32 m[iU]/mLNormal The [facility] Physician GroupComment on above:Result Comment: Approximate Approximate hCG Gestational Age Range (mIU/ml) (weeks) 0.2-1 5-50 1-2 50-500 2-3 100-5,000 3-4 500-10,000 4-5 1,000-50,000 5-6 10,000-100,000 6-8 15,000-200,000 8-12 10,000-100,000 PERFORMED BY: [place] [id number] PATHOLOGIST REFRIGERATION BRAZER/SOLDERER TO ANAYA M.D.Performed By: #### HCGQNT #### [place] [address] USAChoriogonadotropin.beta subunit [Units/volume] in Serum or PlasmaOrdered By: Jack Woods on 06-38-8440RQN.beta subunit Vq6975.88 m[IU]/mL [facility] DaytonComment on above:Approximate Approximate hCG Gestational Age Range (mIU/ml) (weeks)0.2-1 5-50 1-2 50-500 2-3 100-5,000 3-4 500-10,000 4-5 1,000-50,000 5-6 10,000-100,000 6-8 15,000-200,000 8-12 10,000-100,000HCG,Quantitativeon 35-10-3082GEB,Pbuzqeoxbgew7422.88 m[iU]/mL NormalThe [facility] Hospital Physician GroupComment on above:Result Comment: Approximate Approximate hCG Gestational Age Range (mIU/ml) (weeks) 0.2-1 5-50 1-2 50-500 2-3 100-5,000 3-4 500-10,000 4-5 1,000-50,000 5-6 10,000-100,000 6-8 15,000-200,000 8-12 10,000-100,000 PERFORMED BY: [address] [address] PATHOLOGIST REFRIGERATION BRAZER/SOLDERER TO ANAYA M.D.Performed By: #### HCGQNT #### [facility] [address] [place] [address] USAChoriogonadotropin.beta subunit [Units/volume] in Serum or PlasmaOrdered By: Jack Woods on 67-63-0571QIH.beta subunit Qn988.06 m[IU]/mL [facility] DaytonComment on above:Approximate Approximate hCG Gestational Age Range (mIU/ml) (weeks)0.2-1 5-50 1-2 50-500 2-3 100-5,000 3-4 500-10,000 4-5 1,000-50,000 5-6 10,000-100,000 6-8 15,000-200,000 8-12 10,000-100,000HCG,Quantitativeon 12-12-5552AOZ,Ribyehqcxpyl755.06 m[iU]/mLNormal The [facility] Physician GroupComment on above:Result Comment: Approximate Approximate hCG Gestational Age Range (mIU/ml) (weeks) 0.2-1 5-50 1-2 50-500 2-3 100-5,000 3-4 500-10,000 4-5 1,000-50,000 5-6 10,000-100,000 6-8 15,000-200,000 8-12 10,000-100,000 PERFORMED BY: [address] [address] PATHOLOGIST REFRIGERATION BRAZER/SOLDERER TO ANAYA M.D.Performed By: #### HCGQNT #### [facility] [address] [place] [address] USAUS OB transvaginalon 38-47-1313PQ OB transvaginalAULTMAN [facility] Main [address] [address] Ultrasound Report Signed Patient: Daphney Al MR#: [id number] : 2000 Acct:[id number] Age/Sex: 23 / F ADM Date: 12/20/23 Loc: Room: Type: [facility] Attending Dr: Jack Woods DO Ordering Provider: Jack Woods Date of Service: 12/20/23 US/US OB <= 14 weeks fetus: N92.6 ([id number]) US/US OB transvaginal: N92.6 Copies to: Jack [...] Lisa Rojas M.D.12/20/2023 5:46 PM Dictation Location: [place] [address] Tech: Deb Real Transcribed By: FLETCHER 12/20/231745 Dictated By: Lisa Rojas MD 12/20/231738 Signed By: 12/20/23 1746NoSloop [facility] Physician GroupChoriogonadotropin.beta subunit [Units/volume] in Serum or PlasmaOrdered By: Jack Woods on 52-25-9219FZX.beta subunit Qn295.86 m[IU]/mLKettering Health DaytonComment on above: Approximate Approximate hCG Gestational Age Range (mIU/ml) (weeks)0.2-1 5-50 1-2 50-500 2-3 100-5,000 3-4 500-10,000 4-5 1,000-50,000 5-6 10,000-100,000 6-8 15,000-200,000 8-12 10,000-100,000HCG,Quantitativeon 76-47-2184HNR,Quantitative 295.86 m[iU]/mLNRandolph Health Physician [facility]ippah County HospitalComment on above:Result Comment: Approximate Approximate hCG Gestational Age Range (mIU/ml) (weeks) 0.2-1 5-50 1-2 50-500 2-3 100-5,000 3-4 500-10,000 4-5 1,000-50,000 5-6 10,000-100,000 6-8 15,000-200,000 8-12 10,000-100,000 PERFORMED BY: [address] [address] PATHOLOGIST REFRIGERATION BRAZER/SOLDERER TO ANAYA M.D.Performed By: #### HCGQNT #### [place] [address] USAChoriogonadotropin.beta subunit [Units/volume] in Serum or PlasmaOrdered By: Jack Woods on 50-11-5230IAE.beta subunit Qn135.80 m[IU]/mL [facility] DaytonComment on above:Approximate Approximate hCG Gestational Age Range (mIU/ml) (weeks)0.2-1 5-50 1-2 50-500 2-3 100-5,000 3-4 500-10,000 4-5 1,000-50,000 5-6 10,000-100,000 6-8 15,000-200,000 8-12 10,000-100,000HCG,Quantitativeon 07-33-6101MVX,Wdlnfnguyoeo227.80 m[iU]/mLNormal The [facility] Physician GroupComment on above:Result Comment: Approximate Approximate hCG Gestational Age Range (mIU/ml) (weeks) 0.2-1 5-50 1-2 50-500 2-3 100-5,000 3-4 500-10,000 4-5 1,000-50,000 5-6 10,000-100,000 6-8 15,000-200,000 8-12 10,000-100,000 PERFORMED BY: [place] [address] PATHOLOGIST REFRIGERATION BRAZER/SOLDERER TO ANAYA M.D.Performed By: #### HCGQNT #### [place] [address] USAChoriogonadotropin.beta subunit [Units/volume] in Serum or PlasmaOrdered By: ANT Reardon on 53-82-4700EFY.beta subunit Qn69.85 m[IU]/mLKettering Health DaytonComment on above:Approximate Approximate hCG Gestational Age Range (mIU/ml) (weeks)0.2-1 5-50 1-2 50-500 2-3 100-5,000 3-4 500-10,000 4-5 1,000-50,000 5-6 10,000-100,000 6-8 15,000-200,000 8-12 10,000-100,000HCG,Quantitativeon 98-44-6017OFS,Jemlkyzkrsla60.85 m[iU]/mL NormalThe [facility] Hospital Physician GroupComment on above:Result Comment: Approximate Approximate hCG Gestational Age Range (mIU/ml) (weeks) 0.2-1 5-50 1-2 50-500 2-3 100-5,000 3-4 500-10,000 4-5 1,000-50,000 5-6 10,000-100,000 6-8 15,000-200,000 8-12 10,000-100,000 PERFORMED BY: [place] [address] PATHOLOGIST REFRIGERATION BRAZER/SOLDERER TO ANAYA M.D.Performed By: #### HCGQNT #### [place] [address] USAProgesteroneon 45-42-3475Lfynvuqalkgd57.5 ng/mLNormal.The [facility] Physician GroupComment on above:Result Comment: Follicular phase 0.1 - 0.9 Luteal phase 1.8 - 23.9 Ovulation phase 0.1 - 12.0 First trimester 11.0 - 44.3 Second trimester 25.4 - 83.3 Third trimester 58.7 - 214.0 Postmenopausal 0.0 - 0.1 Performed at: [address] [id number] Reprographics Technician: Jordin Rao PhD, Phone: [phone] PERFORMED BY: [place] [address] PATHOLOGIST REFRIGERATION BRAZER/SOLDERER TO ANAYA M.D.Performed By: #### PROG #### [facility] ,Serum or plasma progesterone measurement (mass/volume)Ordered By: Jack Woods on 47-06-7988Ixhsozwktzsa [Mass/Vol]26.5 ng/mL.[facility] Comment on above:Follicular phase 0.1 - 0.9 Luteal phase 1.8 - 23.9 Ovulation phase 0.1 - 12.0 First trimester 11.0 - 44.3 Second trimester 25.4 - 83.3 Third trimester 58.7 - 214.0 Postmenopausal 0.0 - 0.1Performed at: [email or web address] [address] [id number] Director: Jordin Muhammad, Phone: [phone].beta subunit [Units/volume] in Serum or PlasmaOrdered By: ANT Reardon on 13-76-5046UQY.beta subunit Qn12.64 m[IU]/mLKettering Health DaytonComment on above:Approximate Approximate hCG Gestational Age Range (mIU/ml) (weeks)0.2-1 5-50 1-2 50-500 2-3 100-5,000 3-4 500-10,000 4-5 1,000-50,000 5-6 10,000-100,000 6-8 15,000-200,000 8-12 10,000-100,000HCG,Quantitativeon 03-93-2942OHJ,Eqnbheultmff46.64 m[iU]/mL NormalThe [facility] Hospital Physician GroupComment on above:Result Comment: Approximate Approximate hCG Gestational Age Range (mIU/ml) (weeks) 0.2-1 5-50 1-2 50-500 2-3 100-5,000 3-4 500-10,000 4-5 1,000-50,000 5-6 10,000-100,000 6-8 15,000-200,000 8-12 10,000-100,000 PERFORMED BY: [place] [address] PATHOLOGIST REFRIGERATION BRAZER/SOLDERER TO ANAYA M.D.Performed By: #### HCGQNT #### [address]Operative Reporton 24-92-2570Gpgubcxlf Report [id number]#1.00TIFFNormalFisher Saint Luke InstituteQuick Strepon 03-21-2023S. pyogenes Org specific cx Ql (Throat)Negative [employer] Other Quick StrepNofreeman [facility] [employer] Other CBG Auto Differentialon 16-32-7208Amoihsbue (Bld) [#/Vol]0.00 10*3/[facility], KYBasophils/100 WBC (Bld)0 %0 - 2 %[facility], KYDifferential TypeYESMKettering Health [facility]al [facility], KYEosinophils (Bld) [#/Vol] 0.20 10*3/[facility]- [place], KYEosinophils/100 WBC (Bld)2 %0 - 5 %[facility]- [place], KYErythrocyte distribution width (RBC) [Ratio]12.6 %12.1 - 15.2 %[facility]- [place], KYHematocrit (Bld) [Volume fraction]39.8 %36 - 46 %[facility]- [place], KYHemoglobin (Bld) [Mass/Vol]13.8 g/dL12 - 16 g/dLMercy Health Tiffin Hospital- [place], [place] Interpretation and review of laboratory resultsAbnormalMercy Health [facility]- [place], USHA Lymphocytes (Bld) [#/Vol]1.70 10*3/[facility]- [place], USHALymphocytes/100 WBC (Bld)14 %Low15 - 40 %[facility]- [place], KYMCH (RBC) [Entitic mass]31.5 pg26 - 34 pgMercy Health Tiffin Hospital- [place], KYMCHC (RBC) [Mass/Vol]34.6 g/dL31 - 37 g/dLMercy Health Tiffin Hospital- [place], KYMCV (RBC) [Entitic vol]91.2 fL80 - 100 fLMercy Health Tiffin Hospital- [place], KYMonocytes (Bld) [#/Vol]0.60 10*3/[facility]- [place], KYMonocytes/100 WBC (Bld)5 %4 - 8 % [facility]- [place], USHAPlatelet mean volume (Bld) [Entitic vol]NOT REPORTED6 - 12 fLMercy Health Tiffin Hospital- [place], KYPlatelets (Bld) [#/Vol]NOT REPORTEDMercy Health [facility] Hospital- [place], [place] Platelets (Bld) [#/Vol]287 10*3/[facility]- [place], KYRBC (Bld) [#/Vol]4.37 10*6/uL4 - 5.2 m/[facility]- [place], KYRBC morphology finding Nom (Bld)NOT REPORTEDMercy Health [facility]- [place], KYSegmented neutrophils/100 WBC (Bld)79 %High47 - 75 % [facility]- [place], KYSegs Absolute9.50HighMercy Health [facility]iff[facility] Hospital- [place], KYWBC (Bld) [#/Vol] 12.0 10*3/uLMercy [facility] (Bld) [#/Vol]NOT REPORTEDper 100 WBCMercy Health [facility]sburg Hospital MorphologyNOT REPORTEDSt. [facility], [facility] with Diffon 60-81-2049Tvw. Basophil0.00 k/uLNormal0.0-0.2MSt. Vincent HospitalComment on above:Performed By: #### CP, CDP #### [facility] [address] [place] [id number] Reprographics Technician: José Higgins.Neutrophil (Seg)9.50 k/uLHigh2.5-7.0[facility] [address] Rita'S Medical CenterComment on above:Performed By: #### CP, CDP #### [facility] [address] [place] [address] Reprographics Technician: Maya Higgins Diff PerformedYESNormalMercy Health St. Rita'S Medical CenterComment on above:Performed By: #### CP, CDP #### [facility] [address] [place] [id number] Reprographics Technician: Jonathan Chisholm MDBasophils/100 WBC (Bld)0 %Normal0-2MSt. Vincent HospitalComment on above:Performed By: #### CP, CDP #### [facility] [address] [place] [id number] Reprographics Technician: CHRISTINE Higginsosinophils (Bld) [#/Vol]0.20 10*3/uLNormal 0.0-0.4[facility] Rita'S Medical CenterComcorewell health gerber hospital on above:Performed By: #### CP, CDP #### [facility] [address] [place] [id number] Reprographics Technician: CHRISTINE Higginsosinophils/100 WBC (Bld)2 %Normal0-5Mer[facility] Health St[facility] Rita'S Medical CenterComcorewell health gerber hospital on above:Performed By: #### CP, CDP #### [facility] [address] [place] [id number] Reprographics Technician: Jonathan Chisholm MDErythrocyte distribution width (RBC) [Ratio]12.6 %Ukgder54.1-15.2MSt. Vincent HospitalComment on above:Performed By: #### CP, CDP #### [facility] [address] [place] [id number] Reprographics Technician: Jonathan Chisholm MDHematocrit (Bld) [Volume fraction]39.8 %Normal 36-46Mer[facility] Health St. Rita'S Medical CenterComment on above:Performed By: #### CP, CDP #### [facility] [address] [place] [id number] Reprographics Technician: Jonathan Chisholm MDHemoglobin (Bld) [Mass/Vol]13.8 g/dLNormal 12.0-16.0Mer[address]. Rita'S Medical CenterComment on above:Performed By: #### CP, CDP #### [facility] [address] [place] [id number] Reprographics Technician: Jonathan Chisholm MDLymphocytes (Bld) [#/Vol]1.70 10*3/uLNormal 1.2-5.2MSt. Vincent HospitalComment on above:Performed By: #### CP, CDP #### [facility] [address] [place], [place] [id number] Reprographics Technician: Jamie Higginsmphocytes/100 WBC (Bld)14 %Pwa98-25OujccMercy Health St. Rita'S Medical CenterComment on above:Performed By: #### CP, CDP #### [facility] [address] [place], [place] [id number] Reprographics Technician: MEETA HigginsCH (RBC) [Entitic mass]31.5 xyUtcdlv01-99UvomdMercy Health St. Rita'S Medical CenterComment on above:Performed By: #### CP, CDP #### [facility] [address] [place] [address] Reprographics Technician: AWA HigginsC (RBC) [Mass/Vol]34.6 g/[id number] Health St. Rita'S Medical CenterComment on above:Performed By: #### CP, CDP #### [facility] [address] [place] [address] Reprographics Technician: MEETA HigginsCV (RBC) [Entitic vol]91.2 [id number] Health St. Rita'S Medical CenterComcorewell health ger[facility] hospital on above:Performed By: #### CP, CDP #### [facility] [address] [place] [address] Reprographics Technician: MEETA Higginsonocytes (Bld) [#/Vol]0.60 10*3/uLNormal0.0-1.[address] [facility] Medical CenterComcorewell health gerber hospital on above:Performed By: #### CP, CDP #### [facility] [address] [place] [address] Reprographics Technician: MEETA Higginsonocytes/100 WBC (Bld)5 %Normal4-8Mercy Health St. Rita'S Medical CenterComment on above:Performed By: #### CP, CDP #### [facility] [address] [place] [address] Reprographics Technician: Zachary Higginsophil (Seg)79 %Gdie34-06HtsptMercy Health St. Rita'S Medical CenterComment on above:Performed By: #### CP, CDP #### [facility] [address] [place] [id number] Reprographics Technician: GAGE Higginslatelets (Bld) [#/Vol]287 10*3/aYLygyst829-[address] [facility] Medical CenterComcorewell health gerber hospital on above:Performed By: #### CP, CDP #### [facility] [address] [place] [address] Reprographics Technician: Jonathan Chisholm MDRBC (Bld) [#/Vol]4.37 10*6/uLNormal4.0-5.2[facility] Hernesto HospitalComment on above:Performed By: #### CP, CDP #### [facility] [address] [place] [address] Reprographics Technician: RUDDY Higgins (Bld) [#/Vol]12.0 10*3/uLNormal4.5-13.5[facility] HospitalComment on above:Performed By: #### CP, CDP #### [facility] [address] [place] [address] Reprographics Technician: José Higgins.Imm.GranulocyteNOT REPORTEDNormal0.00-0.30 [facility] HospitalComment on above:Performed By: #### CP, CDP #### [facility] [address] [place] [address] Reprographics Technician: Luciana Higginsmature granulocytes (Bld) [#/Vol]NOT REPORTED Svzjnj0EihbwFulton County Health Center HospitalComment on above:Performed By: #### CP, CDP #### [facility] [facility] [address] [place] [address] Reprographics Technician: NAHID Higgins AutomatedNOT REPORTEDNormalFulton County Health Center HospitalComment on above:Performed By: #### CP, CDP #### [facility] [address] [place] [address] Reprographics Technician: John Higgins mean volume (Bld) [Entitic vol]NOT REPORTEDNormal6.0-12.0[facility] HospitalComment on above:Performed By: #### CP, CDP #### [facility] [address] [place] [address] Reprographics Technician: Brian Higgins (Bld) [#/Vol]NOT REPORTEDNormalFulton County Health Center HospitalComment on above:Performed By: #### CP, CDP #### [facility] [address] [place], [place] [id number] Reprographics Technician: COURT Higgins morphology finding Nom (Bld)NOT REPORTED [facility]lower HospitalComment on above:Performed By: #### CP, CDP #### [facility] [address] [place] [address] Reprographics Technician: RUDDY Higgins MorphologyNOT REPORTEDNormalMercy Health St. Rita'S Medical CenterComment on above:Performed By: #### CP, CDP #### [facility] [address] [place] [address] Reprographics Technician: HODAN [facility]ginsash[facility] Metabolic Profon 02-01-2019(cont.)Normal [facility]S Medical CenterComcorewell health gerber hospital on above:Result Comment: Average GFR for 20-29 years old: 116 mL/min/1.73sq m Chronic Kidney Disease: <60 mL/min/1.73sq m Kidney failure: <15 mL/min/1.73sq m eGFR calculated using average adult body mass. Additional eGFR calculator available at: http://www.BigDoor/multiple_crcl_2012.htmPerformed By: #### CP, CDP #### [facility] [address] [place] [address] Reprographics Technician: Jonathan Chisholm MDAlbumin [Mass/Vol]4.1 g/dLNormal3.5-5.2[facility]'S HospitalComment on above:Performed By: #### CP, CDP #### [facility] [address] [place] [address] Reprographics Technician: Binu Higginskaline Phos63 U/SWywivn72-881GniljMercy Health St. Rita'S Medical CenterComment on above:Performed By: #### CP, CDP #### [facility] [address] [place] [address] Reprographics Technician: Jonathan Chisholm MDALT [Catalytic activity/Vol]8 U/LNormal5-33[facility] Rita'S Medical CenterComment on above:Performed By: #### CP, CDP #### [facility] [address] [place] [address] Reprographics Technician: Jono Higgins gap [Moles/Vol]12 mmol/LNormal9-17[facility] Hospitalment on above:Performed By: #### CP, CDP #### [facility] [address] [place] [phone] Reprographics Technician: Jonathan Chisholm MDAST [Catalytic activity/Vol]13 U/LNormal<32[facility]. Rita'S Medical CenterComment on above:Performed By: #### CP, CDP #### [facility] [address] [place] [address] Reprographics Technician: Jonathan Chisholm MDBilirubin Ql (U)0.40 mg/dLNormal0.30-1.20[facility]. Rita'S Medical CenterComment on above:Performed By: #### CP, CDP #### [facility] [address] [place] [address] Reprographics Technician: Jonathan Chisholm MDBUN/CRE Gytut07Kgasap5-81PeyvyPromedica Fostoria Community Hospital on above:Performed By: #### CP, CDP #### [facility] [address] [place] [id number] Reprographics Technician: HODAN Higginsalcium [Mass/Vol]9.1 mg/dLNormal8.6-10.4[facility] Rita'S Medical CenterComment on above:Performed By: #### CP, CDP #### [facility] [address] [place] [address] Reprographics Technician: HODAN Higginshloride [Moles/Vol]103 mmol/UZwemob34-632CzfwdMercy Health St. Rita'S Medical CenterComcorewell health gerber hospital on above:Performed By: #### CP, CDP #### [facility] [address] [place] [address] Reprographics Technician: HODAN HigginsO2 [Moles/Vol]24 mmol/ZZmtncw66-49Fiiii Leoti HospitalComment on above:Performed By: #### CP, CDP #### [facility] [address] [place], [place] [phone] Reprographics Technician: HODAN Higginsreatinine [Mass/Vol]0.61 mg/dLNormal0.50-[address] Rita'S Medical CenterComment on above:Performed By: #### CP, CDP #### [facility] [address] [place] [address] Reprographics Technician: Jonathan Chisholm MDGFR, Amer>60Normal>60[facility] HospitalComment on above:Performed By: #### CP, CDP #### [facility] [address] [place] [address] Reprographics Technician: Jonathan Chisholm MDGFR,non Amer>60Normal>60[facility] HospitalComment on above:Performed By: #### CP, CDP #### [facility] [address] [place] [address] Reprographics Technician: Jonathan Chisholm MDGlucose [Mass/Vol]94 mg/wONsvslu14-92PxtimSt. Vincent HospitalComment on above:Performed By: #### CP, CDP #### [facility] [address] [place] [address] Reprographics Technician: Jonathan Chisholm MDPotassium [Moles/Vol]3.8 mmol/LNormal3.7-5.3MSycamore Medical Center HospitalComment on above:Performed By: #### CP, CDP #### [facility] [address] [place] [phone] Reprographics Technician: Jonathan Chisholm MDProtein [Mass/Vol]7.1 g/dLNormal6.4-8.3Mgenesis hospitaly Leoti HospitalComment on above:Performed By: #### CP, CDP #### [facility] [address] [place] [phone] Reprographics Technician: KARLENE Higginsodium [Moles/Vol]139 mmol/ZIlqgro054-686ZljaxMercy Health St. Rita'S Medical CenterComment on above:Performed By: #### CP, CDP #### [facility] [address] [place] [address] Reprographics Technician: Jonathan Chisholm MDUrea nitrogen [Mass/Vol]8 mg/dLNormal6-20[facility] Rita'S Medical CenterComment on above:Performed By: #### CP, CDP #### [facility] [address] [place] [address] Reprographics Technician: Jonathan Chisholm MDAlbumin/Globulin [Mass ratio]NOT REPORTEDNormal 1.0-2.5Mer[facility] St. Rita'S Medical CenterComment on above:Performed By: #### CP, CDP #### [facility] [address] [place] [address] Reprographics Technician: KARLENE Higginstaging:NOT REPORTEDNormalMercy Health St. [facility]'S Medical Center Comment on above:Performed By: #### CP, CDP #### [facility] [address] [place] [address] Reprographics Technician: Jonathan Chisholm [facility] ASSOCIATIONomptogus va medical centerensive Metabolic Panelon 85-68-6111Zffqlqv [Mass/Vol]4.1 g/dL3.5 - 5.2 g/dLMercy Health Tiffin Hospital- [place], KYAlbumin/Globulin [Mass ratio]NOT REPORTEDOhiohealth Riverside [facility] [place], KYALP [Catalytic activity/Vol]63 U/L35 - 104 U/LMSelect Medical [facility]ty [facility] [place], KYALT [Catalytic activity/Vol]8 U/L5 - 33 U/LMmercy health [facility] Health- [place], KYAnion gap [Moles/Vol]12 mmol/L9 - 17 mmol/LMgenesis hospitaly Health- [place], KYAST [Catalytic activity/Vol]13 U/L<32MerOverlake Hospital [facility] Center- [place], KYBilirubin Ql (U)0.40 mg/dL 0.3 - 1.2 mg/dLDayton Osteopathic Hospital Health- [place], KYBun/Cre Kqkmm76[facility]- [place], KYCalcium [Mass/Vol]9.1 mg/dL8.6 - 10.4 mg/dLSt. [facility], KYChloride [Moles/Vol]103 mmol/L98 - 107 mmol/[facility], KYCO2 [Moles/Vol]24 mmol/L20 - 31 mmol/L [facility], KYCreatinine [Mass/Vol]0.61 mg/dL0.5 - 0.9 mg/dLSt. [facility], KYGFR >60>60 mL/minOhiohealth Riverside Methodist Hospital [place], KYGFR Non->60>60 mL/minSt. Mary's [facility], KYGFR/1.73 sq M predicted among non- blacks MDRD (S/P/Bld) [Vol rate/Area]NOT REPORTEDSt. Mary's [facility], KYGFR/1.73 sq M predicted among non-blacks MDRD (S/P/Bld) [Vol rate/Area][facility], [place] Comment on above:Average GFR for 20-29 years old: 116 mL/min/1.73sq m Chronic Kidney Disease: <60 mL/min/1.73sq m Kidney failure: <15 mL/min/1.73sq m eGFR calculated using average adult body mass. Additional eGFR calculator available at: http://www.BigDoor/multiple_crcl_2011.htm Glucose [Mass/Vol]94 mg/dL70 - 99 mg/dLSt. Mary's [facility], KYPotassium [Moles/Vol] 3.8 mmol/L3.7 - 5.3 mmol/[facility], KYProtein [Mass/Vol]7.1 g/dL6.4 - 8.3 g/dLSt. [facility], KYSodium [Moles/Vol]139 mmol/L135 - 144 mmol/LMWilson Memorial [facility]- [place], KYUrea nitrogen [Mass/Vol]8 mg/dL6 - 20 mg/dLSt. [facility]'s [facility], [place] HCG, ,Urineon 03-65-6798Zbmv HCG ( test) Ql (U)NegativeNormal NEGMercy Health St. Rita'S Medical CenterComment on above:Performed By: #### CHULA, A[facility] SYSTEMG, UA #### [facility] [address] [place] [address] Reprographics Technician: Jonathan Chisholm, MDMicroscopic Urinalysison 23-18-5873Kvzzddurc, UA NOT REPORTEDNoneMercy Health- [place], KYBacteria, UA3+AbnormalNoneMercy [...] (Bld) [#/Vol]NOT REPORTEDMercy Health- [place], KYPregnancy, Urineon 87-21-4811Jzwe HCG ( test) Ql (U)NegativeNEGATIVEMercy Health- [place], KYUrinalysison 44-05-1980Yruqtiuxr UrineNegativeNEGATIVEMercy Health- [place], [place] Color, UAYELLOWYELLOWMercy Health- [place], KYGlucose, UrNegativeNEGATIVEMercy Health- [place], KYInterpretation and review of laboratory resultsAbnormalMercy Health- [place], KYKetones Ql (U)TRACEAbnormalNEGATIVEMercy Health- [place], KYLeukocyte esterase Test strip Ql (U)NegativeNEGATIVEMercy Health- [place], KYNitrite, Urine NegativeNEGATIVEMercy Health- [place], KYpH, UA6.0[facility]- [place], KYProtein (U) [Mass/Vol]1+AbnormalNEGATIVEMercy Health- [place], KYSpecific [place], UA1.020[facility]- [place], KYTurbidity UACLEARCLEARMercy Health- [place], KYUrinalysis CommentsMercy Health- [place], KYUrine Hgb3+AbnormalNEGATIVESt. [facility], KYUrobilinogen, UrineNormalNormalSt. [facility], KYUrinalysis, Routineon 50-61-5299Jqbwbewfque Acid,UrTRACEAbnormalNEGMercy Health St. Rita'S Medical CenterComment on above:Performed By: #### [facility]ULA [facility], UA #### [facility] [address] [place] [address] Reprographics Technician: Jonathan Chisholm MDBilirubin, SemiQt,UrNegativeNormalSamaritan North Health CenterComcorewell health gerber hospital on above:Performed By: #### [facility], UA #### [facility] [address] [place] [address] Reprographics Technician: HODAN Higginsolor (U)YELLOWNoTriHealth Bethesda [facility] Comment on above:Performed By: #### [facility], UA #### [facility] [address] [place] [address] Reprographics Technician: HODAN HigginsommentNoKettering Health Washington TownshipComcorewell health gerber hospital on above:Performed By: #### [facility], UA #### [facility] [address] [place] [address] Reprographics Technician: Jonathan Chisholm MDGlucose Ql (U)NegativeNormalParkview Health [facility] on above:Performed By: #### [facility], UA #### [facility] [address] [place] [address] Reprographics Technician: Jonathan Chisholm MDHemoglobin, Ur3+AbnormalSamaritan North Health Center Comment on above:Performed By: #### [facility], UA #### [facility] [address] [place] [address] Reprographics Technician: Jonathan Chisholm MDLeukocyte esterase Test strip Ql (U)Negative NormalSamaritan North Health CenterComment on above:Performed By: #### [facility], UA #### [facility] [address] [place], [place] [id number] Reprographics Technician: Elizabeth Higgins,UrNegativeNoProMedica Memorial [facility] Comment on above:Performed By: #### [facility], UA #### [facility] [address] [place] [phone] Reprographics Technician: Jonathan Chisholm [facility] (U)6.0 [pH]Normal5.0-8.0[facility] Comment on above:Performed By: #### [facility], UA #### [facility] [address] [place] [address] Reprographics Technician: GAGE Higginsrotein Ql (U)1+AbnormalSamaritan North Health Center Comment on above:Performed By: #### [facility], UA #### [facility] [address] [place] [id number] Reprographics Technician: KARLENE Higginspecific gravity (U) [Rel density]1.020Normal 1.005-1.030Mer[facility] Health St. Rita'S Medical CenterComment on above:Performed By: #### [facility], UA #### [facility] [address] [place] [address] Reprographics Technician: ALFREDO HigginsurbidityCLEARNormalCSelect Medical [facility] Comment on above:Performed By: #### [facility], UA #### [facility] [address] [place] [id number] Reprographics Technician: Yrn Higgins,UrNormalNormalNOMarymount HospitalComment on above:Performed By: #### [facility], UA #### [facility] [address] [place] [address] Reprographics Technician: Jonathan Chisholm MDUrinalysis,[place]leyon 02-01-2019-----NormalMerTriHealth Good Samaritan Hospital HospitalComment on above:Performed By: #### [facility], UA #### [facility] [address] [place] [address] Reprographics Technician: Jonathan Chisholm MDBacteria LM.HPF (Urine sed) [#/Area]3+Abnormal NONEFulton County Health Center HospitalComment on above:Performed By: #### CHULA, [facility], UA #### [facility] [address] [place] [address] Reprographics Technician: Jonathan Chisholm MDEpithelial cells LM.HPF (Urine sed) [#/Area]20 TO 50NormalFulton County Health Center HospitalComment on above:Performed By: #### [facility], UA #### [facility] [address] [place] [address] Reprographics Technician: MEETA Higginsucus Strands2+AbnormalNONEMeCleveland Clinic Mercy Hospital Comment on above:Performed By: #### [facility], UA #### [facility] [address] [place] [address] Reprographics Technician: COURT Higgins (U) [#/Vol]2 TO 8Lsxzyr5-1Hpfbj Leoti HospitalComment on above:Performed By: #### [facility], UA #### [facility] [address] [place] [address] Reprographics Technician: RUDDY Higgins (U) [#/Vol]2 TO 5Oukyxq2Yhays Willard HospitalComment on above:Performed By: #### [facility]H [facility], UA #### [facility] [address] [place] [address] Reprographics Technician: Kevan Higginsrphoudustin sediment LM Ql (Urine sed)NOT REPORTED NormalNONEMeCleveland Clinic Mercy Hospital HospitalComment on above:Performed By: #### UMICANeville, [facility], UA #### [facility] [address] [place] [address] Reprographics Technician: HODAN Higginsasts LM.LPF (Urine sed) [#/Area]NOT REPORTED NormalMercy Leoti HospitalComment on above:Performed By: #### UMICANeville, [facility], UA #### [facility] [address] [place] [address] Reprographics Technician: HODAN Higginsrystals LM Nom (Urine sed)NOT REPORTEDNormalNONE [facility] HospitalComment on above:Performed By: #### [facility], UA #### [facility] [address] [place] [address] Reprographics Technician: Jonathan Chisholm MDEpithelial, RenalNOT WIYJPUKZOzapzu2Xppup Leoti HospitalComment on above:Performed By: #### CHULA, [facility], UA #### [facility] [address] [place] [address] Reprographics Technician: Jonathan Chisholm MDOther ObservationsNOT REPORTEDNormalNREQMercy Leoti HospitalComment on above:Performed By: #### UMICANeville [facility], UA #### [facility] [address] [place] [address] Reprographics Technician: Jonathan Chisholm MDTrichomonasNOT REPORTEDNormalNONEMeCleveland Clinic Mercy Hospital HospitalComment on above:Performed By: #### UMICANeville, [facility], UA #### [facility] [address] [place] [address] Reprographics Technician: Jonathan Chisholm MDYeast LM Ql (Urine sed)NOT REPORTEDNormalNONE [facility] HospitalComment on above:Performed By: #### CHULA, [facility], UA #### [facility] [address] [place] [address] Reprographics Technician: Jonathan Chisholm MD Vital Signs Date TimeVital SignValuePerforming XqouccdvxTulycpvi30-31-2931 14:49-0400Body mass index (BMI) [Ratio]30.55 kg/i7ViwbeptiHazel Romero BUNDLE COLLECTOR Work Phone: 1(482)[facility] [place], [place] [address]Gscchxldjn50-49-4005 14:49-0400Body lzblpe74.84 kgKristina Heather BUNDLE COLLECTOR Work Phone: 1(980)[facility] [place], [place] [address]Cheszgubeu50-24-3953 14:49-0400Diastolic blood psaitfkg14 mm[Hg]Hazel Heather BUNDLE COLLECTOR Work Phone: 1(861)[facility] [place], [place] [address]Xypxztrczh37-90-1943 14:49-0400Systolic blood hubngzoi604 mm[Hg]Hazel Heather BUNDLE COLLECTOR Work Phone: 1(586)[facility] [place], [place] [address]Jztkixlcim49-78-3840 14:14-0400Body mass index (BMI) [Ratio]30.67 kg/x6Aoccy Peggy DO Work Phone: 1(671)[facility] [place], [place] [address]Mjyjkbxfjx44-36-8099 14:14-0400Body .18 kgCorey Peggy DO Work Phone: 1(330)[facility] [place], [place] [address]Veawtbtrfi35-78-5293 14:14-0400Diastolic blood fioomriy96 mm[Hg]Jack Peggy DO Work Phone: 1(415)[facility] [place], [place] [address]Aszvdiwxii02-91-4054 14:14-0400Systolic blood bqwxqosb471 mm[Hg]Jack Peggy DO Work Phone: 1(741)[facility] [place], [place] [address]Leouxywzxa73-72-5573 09:59-0400Body mass index (BMI) [Ratio]30.18 kg/k7Lgstztcu Heather BUNDLE COLLECTOR Work Phone: 1(569)[facility] [place], [place] [address]Kgwwjitgce70-01-0099 09:59-0400Body jiaewx51.82 kgKrvenancioa Heather BUNDLE COLLECTOR Work Phone: 1(132)[facility] [place] [address]-30-2025 09:59-0400Diastolic blood luduopqj70 mm[Hg]Hazel Heather BUNDLE COLLECTOR Work Phone: 1(827)[facility] [place] [address]-30-2025 09:59-0400Systolic blood pejgswit086 mm[Hg]Hazel Heather BUNDLE COLLECTOR Work Phone: 1(704)[facility] [place] [address]-16-2025 08:54-0400Body mass index (BMI) [Ratio]30.22 kg/m2Amy Cali PA Work Phone: 1(190)[facility] [place] [address]-16-2025 08:54-0400Body isasjt00.94 kgAmy Cali DA SILVA Work Phone: 1(752)[facility] [place] [address]-16-2025 08:54-0400Diastolic blood osmgycik39 mm[Hg]Jayla DA SILVA Work Phone: 1(600)[facility] [place] [address]-16-2025 08:54-0400Systolic blood vefkrkaa326 mm[Hg]Jayla DA SILVA Work Phone: 1(128)[facility] [place], [place] [address]Dsnjkbpnjj61-80-6630 09:38-0400Body mass index (BMI) [Ratio]29.67 kg/e9Lplpz Peggy DO Work Phone: 1(382)[facility] [place] [address]-04-2025 09:38-0400Body ploubi12.37 kgCorey Peggy DO Work Phone: 1(878)[facility] [place], [place] [address]Ohhzlbakqd01-90-5270 09:38-0400Diastolic blood awojrkiy56 mm[Hg]Jack Peggy DO Work Phone: 1(317)[facility] [place] [address]-04-2025 09:38-0400Systolic blood cpzuraey723 mm[Hg]Jack Peggy DO Work Phone: 1(602)[facility] [place], [place] [address]Ondtehanzz69-76-0099 14:30-0400Body mass index (BMI) [Ratio]29.83 kg/e5Xkdhu Peggy DO Work Phone: 1(125)[facility] [place] [address]-19-2025 14:30-0400Body jexjoz83.83 kgCorey Peggy DO Work Phone: 1(255)[facility]-[address] [place], [place] [address]25 14:30-0400Diastolic blood rvaybfha63 mm[Hg]Jack Peggy DO Work Phone: 1(130)[facility] [place], [place] [address]Lhgkpsoquo55-97-7124 14:30-0400Systolic blood vepedfcc499 mm[Hg]Jack Peggy DO Work Phone: 1(295)[facility] [place], [place] [address]Ilfnqlsosa83-64-3149 13:26-0400Body mass index (BMI) [Ratio]28.29 kg/m2Jayla DA SILVA Work Phone: 1(133)[facility] [place], [place] [address]Dpmaovftjf19-27-6421 13:26-0400Body jreone53.49 kgJayla DA SILVA Work Phone: 1(443)[facility] [place], [place] [address]Scugiwwklo05-80-8016 13:26-0400Diastolic blood dyobxpch92 mm[Hg]Jayla DA SILVA Work Phone: 1(104)[facility] [place], [place] [address]Yndivnggtg62-07-9065 13:26-0400Systolic blood fpskegru927 mm[Hg]Jayla DA SILVA Work Phone: 1(764)[address] [place], [place] 49[address]307-01-2025 08:47-0400Body .6 cmGuadalupe Peres MD Work Phone: 1(386)[address] [place], [place] 4808807-01-2025 08:47-0400Body mass index (BMI) [Ratio]27.48 kg/m2Guadalupe Peres MD Work Phone: 1(077)[address] [place], [place] 4808807-01-2025 08:47-0400Body edeoyb67.2 kgGuadalupe Peres MD Work Phone: 1(803)[address] [place], [place] 4808807-01-2025 08:47-0400Diastolic blood codoayts72 mm[Hg]Guadalupe Peres MD Work Phone: 1(419)[address] [place], [place] 4808807-01-2025 08:47-0400Heart rate 90 /Zahra Peres MD Work Phone: 1(495)[address] [place], [place] 4808807-01-2025 08:47-0400Systolic blood wnfiewbr446 mm[Hg]Guadalupe Peres MD Work Phone: 1(802)[address] [place], [place] 4808806-24-2025 14:10-0400Body mass index (BMI) [Ratio]27.02 kg/q2Ealuj Peggy DO Work Phone: 1(727)466-[address] [place], [place] [address]Qfcmewajgz47-68-3009 14:10-0400Body izdykt50.93 kgCorey Peggy DO Work Phone: 1(761)235-[address] [place], [place] [address]Xhkblojiht87-64-8442 14:10-0400Diastolic blood gaduxkzs56 mm[Hg]Jack Peggy DO Work Phone: 1(918)257-[address] [place], [place] [address]Urdgulbdku67-53-7569 14:10-0400Systolic blood dijubbcl003 mm[Hg]Jack Peggy DO Work Phone: 1(161)981-[address] [place], [place] [address]Mhkvnirwti09-38-8648 14:35-0400Body mass index (BMI) [Ratio]27.41 kg/x6Ohxtn Peggy DO Work Phone: 1(436)102-[address] [place], [place] [address]Kykvfjopgm47-03-6663 14:35-0400Body yfcfbw39.02 kgCorey Peggy DO Work Phone: 1(355)009-[address] [place], [place] [address]Ahkzehrxfh43-58-6705 14:35-0400Diastolic blood kmmaraus16 mm[Hg]Jack Peggy DO Work Phone: 1(605)523-[address] [place], [place] [address]Qijitgxmlm07-37-1726 14:35-0400Systolic blood aguludmg073 mm[Hg]Jack Peggy DO Work Phone: 1(040)140-[address] [place], [place] [address]Oyjmyiljii87-01-1137 13:34-0400Body mass index (BMI) [Ratio]26.95 kg/m2[facility]05-08-2025 13:34-0400Body tixdwt90.75 kgResearch [facility]05-08-2025 13:34-0400Diastolic blood zovahime68 mm[Hg][facility]05-08-2025 13:34-0400Systolic blood vahhmmkq303 mm[Hg][facility]11-27-2024 11:05-0500Body mass index (BMI) [Ratio]27.6 kg/o0Uugxh Peggy DO Work Phone: [facility] SystemYbgulvjghc08-81-4295 11:05-0500Body laeirk24.56 kgCorey Peggy DO Work Phone: [facility] SystemCzmsbojfli79-73-9800 11:05-0500Diastolic blood mm[Hg]Jack Peggy DO Work Phone: [place] [address]Aawsizrzoj05-03-9034 11:05-0500Systolic blood rkojxxln724 mm[Hg]Jack Peggy DO Work Phone: [facility] SystemRwolfqhwed36-19-1460 13:52-0400Body zwjhaa555.6 cmCorey Peggy DO Work Phone: [facility] SystemQghqtzgyof27-02-8660 13:52-0400Body mass index (BMI) [Ratio]26.6 kg/t4Ebzuw Peggy DO Work Phone: [facility] SystemUdeqrovykm72-37-4971 13:52-0400Body vgmucb47.75 kgCorey Peggy DO Work Phone: [facility] SystemQoqmhnotff15-50-4670 13:52-0400Diastolic blood urppvazq55 mm[Hg]Jack Peggy DO Work Phone: [place] [address]Rtylxfiaaw06-51-9670 13:52-0400Systolic blood mm[Hg]Jack Peggy DO Work Phone: [place] [address]Vrtlrtklvl74-50-4483 18:10-0500Body rgxlam810.64 cmAcelestina Anton Other [employer] Other 11-07-2023 18:10-0500Body mass index (BMI) [Ratio] 26.95 kg/d7LrfgfRina Anton Other [employer] Other 11-07-2023 18:10-0500Body wxuoqvdamqv30.9 [degF]Rina Anton Other [facility] [employer] Other 11-07-2023 18:10-0500Body nznxxy70.75 kgRina Anton Other [phone] [employer] Other 11-07-2023 18:10-0500Respiratory rate18 /minRina Anton Other [employer] Other 11-07-2023 18:10-3225WfY1% (BldA) [Mass fraction]97 % Rina Desean Other [employer] Other [id number] 06:41-0400BP Zcdcuptkz60 mm[Hg][facility] HospitalCausataRefinder by GnowsisWellington Regional [facility], [id number] 06:41-0400BP Mxpgkbtm250 mm[Hg][facility] HospitalCausataMarietta [facility]opathic [facility], [id number] 06:41-0400Pulse (Heart Rate)64 /min [facility], [id number] 04:30-0400Body Nwtsouwyors49.01 [degF][facility] HospitalCausataMarietta Osteopathic Clinic, [id number] 04:30-0400Body xpgfyu67.92 kgK[facility], [id number] 04:30-0400Pulse Nhvdvkkf900 % [facility], [id number] 04:30-0400Respiratory Rate18 /min [facility], [place] Encounters Encounter DateEncounter TypeCare ProviderFacilityStart: 03-12-2025 End: 64-64-8589Ueecvepa flow Lea Romero NP Work Phone: [facility] OBGYNComment on above:Hemorrhoids, unspecified hemorrhoid type (Primary Dx); Third trimester ([facility]); 33 weeks gestation of ([facility])Start: 03-12-2025 End: 84-11-4241mkxtbjxgqtIUZMQTPZ EBERLYNot AvailableStart: 03-12-2025 End: 30-63-7973Qbfwsw Evita Romero NP Work Phone: [facility] [place] [facility]BGYNStart: 03-12-2025 End: 02-14-9260Frdtcc flowsheetHazel Romero BUNDLE COLLECTOR Work Phone: [facility] [facility]BGYNStart: 02-27-2025 End: 81-14-4457mnfmkpnvkbLHUEW FAZIONot AvailableStart: 02-25-2025 End: 63-76-1330Xapsar flowsheetCorey Peggy DO Work Phone: [facility] [place] [facility]BGYNStart: 02-25-2025 End: 98-77-3306Ldeljg flowsheetCorey Peggy DO Work Phone: [facility] [place] [facility]BGYNStart: 02-25-2025 End: 73-03-8769Rcbbvjdr flow sheetCorey Peggy DO Work Phone: [facility] [place] OBGYNComment on above:Third trimester ([facility]); 31 weeks gestation of ([facility]); POTS (postural orthostatic tachycardia syndrome); Pain of right lower extremityStart: 02-25-2025 End: 71-00-9855drkysnjjmcQQJSP FAZIONot AvailableStart: 02-11-2025 End: 79-36-8477Pjsytr flowsheetRashmia Heather BUNDLE COLLECTOR Work Phone: [facility] [place] [facility]BGYNStart: 02-11-2025 End: 30-83-6757Nqykqw flowsPepe Romero BUNDLE COLLECTOR Work Phone: [facility] [place] [facility]BGYNStart: 02-11-2025 End: 26-16-8996Hijgdklf flow sheetKristina Heather BUNDLE COLLECTOR Work Phone: [facility] [place] OBGYNComment on above: size inconsistent with dates ([facility]) (Primary Dx); Third trimester ([facility]); 29 weeks gestation of ([facility])Start: 02-11-2025 End: 40-95-8898qjclujbxvsKRZLTWQE HEATHERNot AvailableStart: 01-29-2025 End: 12-51-0652Shmfbdfrt Result EncounterJayla Art REKHA Work Phone: NOM[facility] External Department UnsolicitedStart: 01-29-2025 End: 87-66-7808Gbgwmkqkr Result EncounterAmy Cali REKHA Work Phone: noms External Department UnsolicitedStart: 01-28-2025 End: 13-31-3237Yzvjxy flowsheetJayla Art REKHA Work Phone: [facility] OBGYNStart: 01-28-2025 End: 10-78-4117Xdgcoo flowsheetJayla Art PA Work Phone: N[facility] [place] OBGYNStart: 01-28-2025 End: 00-37-2336Oodukbrd flow sheetJayla Art REKHA Work Phone: NOFL [facility] OBGYNComment on above:Second trimester ([facility]); 27 weeks gestation of ([facility]); Elevated glucose tolerance testStart: 01-28-2025 End: 92-36-4210jujioobysgDSZ CALINot AvailableStart: 01-27-2025 End: 01-08-4780Vpjabwiyv Result EncounterCorey Peggy DO Work Phone: noMS External Department UnsolicitedStart: 01-27-2025 End: 06-31-1881Ourwfzslp Result EncounterCorey Peggy DO Work Phone: noms External Department UnsolicitedStart: 01-24-2025 End: 08-49-9220dbkfmdesllCKRTHCleveland Clinic Mentor Hospitaltart: 01-21-2025 End: 82-23-3262Xehfooqlv Result EncounterAmy Cali REKHA Work Phone: noms External Department UnsolicitedStart: 01-21-2025 End: 78-68-3421Wyanbjzcs Result EncounterJayla Art REKHA Work Phone: noms External Department UnsolicitedStart: 01-16-2025 End: 29-46-9194Mhrzcx flowsheetCorey Peggy DO Work Phone: [facility] [place] [facility]BGYNStart: 01-16-2025 End: 30-50-2087Kkyxgq flowsheetCorey Peggy DO Work Phone: [facility] [place] OBGYNStart: 01-16-2025 End: 62-85-3687Fwprrygk flow sheetCorey Peggy DO Work Phone: [facility] [place] OBGYNComment on above:25 weeks gestation of ([facility]); Second trimester ([facility]); Palpitations; Syncope, unspecified syncope type; Gastroesophageal reflux in ([facility])Start: 01-16-2025 End: 27-21-6536dmhtccwlczVZYKY FAZIONot AvailableStart: 01-07-2025 End: 38-63-7176Tjqyvy flowsheetJayla Art PA Work Phone: [facility] [place] OBGYNStart: 01-07-2025 End: 24-22-9220Pvojue flowsheetJayla Art PA Work Phone: [facility] [place] OBGYNStart: 01-07-2025 End: 64-35-7306Vnaosdja flow sheetJayla Art PA Work Phone: [facility] [place] OBGYNComment on above:Second trimester ([facility]); 23 weeks gestation of ([facility]); Palpitations; TachycardiaStart: 01-07-2025 End: 26-22-7106ptrnsbvhkaZGJ RAMEYNot AvailableStart: 12-31-2024 End: 37-75-1851Rreepthk flow sheetCorey Peggy DO Work Phone: [facility] [place] OBGYNComment on above:Second trimester ([facility]); 23 weeks gestation of ([facility]); Diabetes mellitus screeningStart: 12-31-2024 End: 13-41-2906ypmpntzmpdFFHDV FAZIONot AvailableStart: 12-31-2024 End: 02-45-2285Aslkyb flowsheetCorey Peggy DO Work Phone: [facility] [place] [facility]BGYNStart: 12-31-2024 End: 82-30-0454Uiljjm flowsheetCorey Peggy DO Work Phone: [facility] [place] OBGYNStart: 12-10-2024 End: 79-98-0132xaihqpedvaESUJG R FAZIOProMedica St. Charles [facility] Center - Bendtart: 12-03-2024 End: 71-45-3733Suirtk flowsheetJayla DA SILVA Work Phone: [facility] BCP OBStart: 12-03-2024 End: 94-79-8721Dzcfoo flowsheetJayla Art PA Work Phone: [facility] OBStart: 12-03-2024 End: 99-46-9345Afhzzmss flow sheetJayla Art PA Work Phone: [facility] OBComment on above:Second trimester ([facility]); 19 weeks gestation of ([facility])Start: 12-03-2024 End: 97-88-3954wrmzvwmezwPGO RAMEYNot AvailableStart: 11-12-2024 End: 39-27-5475Uhydkp consultation new/estab patient 58 Zahra Peres MD Work Phone: [phone]-Qsaxj Medicine at [facility] Comment on above:Adnexal mass (Primary Dx); 16 weeks gestation of ; Uterine fibroids affecting in second trimester; Localized swelling of right lower extremityStart: 11-12-2024 End: 18-74-9951Gdzmlb OnlyAmy [place] LPNMaternal- Medicine at [facility] HospitalComment on above:Adnexal mass (Primary Dx); Uterine fibroids affecting in second trimester; Localized swelling of right lower extremityStart: 11-05-2024 End: 05-34-0888Pmfpgi flowsheetCorey Peggy DO Work Phone: [facility] BCP OBStart: 11-05-2024 End: 01-94-1452Hlwsrv flowsheetCorey Peggy DO Work Phone: [facility] BCP OBStart: 11-05-2024 End: 47-25-4909Bdgkjmiaq Result EncounterCorey Peggy DO Work Phone: noms External Department UnsolicitedStart: 11-05-2024 End: 02-65-2570Wnimkfjl Result EncounterCorey Peggy DO Work Phone: noms External Department UnsolicitedStart: 11-05-2024 End: 87-63-1364Vtuhgnk encounter procedureCorey Peggy DO Work Phone: [facility] Work Phone: Start: 11-05-2024 End: 51-09-8924Kabidpxu preventive med est patient 18-39 yrsCorey Peggy DO Work Phone: noms BCP OBComment on above:Well woman exam with routine gynecological exam; Second trimester ([facility]); 15 weeks gestation of ([facility]); Vaginal discharge; STD exposureStart: 11-05-2024 End: 37-73-9252xrcbifkmmgCmgoj FaMercy Health St[facility] Work Phone: Start: 11-05-2024 End: 73-38-0574Rnfpcczs ReferredCorey Peggy-LAB Path Spec [facility] HospStart: 10-08-2024 End: 10-54-7196Xemmuvwm flow sheetCorey Peggy DO Work Phone: noms BCP OBComment on above:11 weeks gestation of ; First trimester ; Other constipation; Gastroesophageal reflux in pregnancyStart: 10-08-2024 End: 27-93-5879yjydcwlljoZKCFY FAZIONot AvailableStart: 10-08-2024 End: 49-48-4768Ikxrsc flowsheetCorey Peggy DO Work Phone: noms BCP OBStart: 10-08-2024 End: 78-92-7082Ifbuxv flowsheetCorey Peggy DO Work Phone: noms BCP OBStart: 09-24-2024 End: 45-53-5937Irnyqmhtk Result EncounterCorey Peggy DO Work Phone: noms External Department UnsolicitedStart: 09-24-2024 End: 41-51-2138Aekpjrgxf Result EncounterCorey Peggy DO Work Phone: noms External Department UnsolicitedStart: 09-19-2024 End: 12-54-4967Pwzusb outpatient visit 5 minutesNoms Bcp Ob Peggy NurseNOMS BCP OBComment on above:GA: 2s3dYccdl: 09-19-2024 End: 26-57-1674rwrcpmfyajAZYZU FAZIONot AvailableStart: 08-28-2024 End: 94-83-5061vfkxwehgoaJHQIM FAZIONot AvailableStart: 08-26-2024 End: 15-07-9360Feezlghum Result EncounterCorey Peggy DO Work Phone: noms External Department UnsolicitedStart: 08-26-2024 End: 52-80-5170Onekbhibq Result EncounterCorey Peggy DO Work Phone: NOEA External Department UnsolicitedStart: 08-24-2024 End: 74-98-9810Znwedfdtf Result EncounterCorey Peggy DO Work Phone: noms External Department UnsolicitedStart: 08-24-2024 End: 82-26-4976Txnnbqjcy Result EncounterCorey Peggy DO Work Phone: noms External Department UnsolicitedStart: 08-22-2024 End: 50-15-6096Gqtkkvqrt Result EncounterCorey Peggy DO Work Phone: NODG External Department UnsolicitedStart: 08-22-2024 End: 75-24-8392Rzaenmxxs Result EncounterCorey Peggy DO Work Phone: noMS External Department UnsolicitedStart: 08-20-2024 End: 18-16-7297Rfzzwoyfw Result EncounterCorey Peggy DO Work Phone: noMS External Department UnsolicitedStart: 08-20-2024 End: 43-71-6996Hnryxysjx Result EncounterCorey Peggy DO Work Phone: NOKW External Department UnsolicitedStart: 08-17-2024 End: 04-35-5209Mklenfhwh Result EncounterCorey Peggy DO Work Phone: NOXM External Department UnsolicitedStart: 08-17-2024 End: 23-28-9696Fgnniyxnd Result EncounterCorey Peggy DO Work Phone: NOZY External Department UnsolicitedStart: 08-15-2024 End: 11-61-7243Exfnzuqda Result EncounterCorey Peggy DO Work Phone: NOSL External Department UnsolicitedStart: 08-15-2024 End: 91-23-7280Rvwbnivnj Result EncounterCorey Peggy DO Work Phone: NOJD External Department UnsolicitedStart: 06-14-2024 End: 72-24-3131Hmdcvzwpe Result EncounterCorey Peggy DO Work Phone: NONV External Department UnsolicitedStart: 06-14-2024 End: 56-25-1838Rfzutxqjn Result EncounterCorey Peggy DO Work Phone: NOPP External Department UnsolicitedStart: 04-18-2024 End: 61-50-9639Orbjsfvzv Result EncounterCorey Peggy DO Work Phone: NOUP External Department UnsolicitedStart: 04-18-2024 End: 29-71-1174Vgvswrvdg Result EncounterCorey Peggy DO Work Phone: NORE External Department UnsolicitedStart: 04-10-2024 End: 72-47-2640Manogv flowsheetCorey Peggy DO Work Phone: [facility]OM[facility] BCP OBStart: 04-10-2024 End: 72-31-7968Iohooh flowsheetCorey Peggy DO Work Phone: [facility]OM[facility] BCP OBStart: 04-10-2024 End: 74-79-7056Fjapwn outpatient visit 15 minutesCorey Peggy DO Work Phone: noms BCP OBComment on above:Encounter for infertility; Hormone disorderStart: 04-10-2024 End: 67-28-8904preukpadepLOHEJ FAZIONot AvailableStart: 03-21-2024 End: 90-86-6059Ixycumdgo Result EncounterCorey Peggy DO Work Phone: noms External Department UnsolicitedStart: 03-21-2024 End: 51-30-8909Wwpqylvxw Result EncounterCorey Pgegy DO Work Phone: noms External Department UnsolicitedStart: 02-17-2024 End: 54-61-9121Lcqjjeykn Result EncounterCorey Peggy DO Work Phone: noms External Department UnsolicitedStart: 02-17-2024 End: 88-12-9079Ixvfxnpgr Result EncounterCorey Peggy DO Work Phone: noms External Department UnsolicitedStart: 2024 End: 47-41-9152Fqvmffqrv Result EncounterCorey Peggy DO Work Phone: noms External Department UnsolicitedStart: 2024 End: 26-21-8987Kxrliarin Result EncounterCorey Peggy DO Work Phone: noms External Department UnsolicitedStart: 2024 End: 21-76-5220Kutbgg outpatient visit 15 minutesCorey Peggy DO Work Phone: noms BCP OBComment on above:Female infertility; History of miscarriageStart: 01-05-2024 End: 01-29-1406Wapcpuq encounter procedureMD Zachary Mayes Work Phone: [facility] [place] Work Phone: Start: 01-05-2024 End: 00-97-8406kupomqxqraJC Zachary Mayes Work Phone: [facility] Work Phone: Start: 12-28-2023 End: 57-78-4089Glrkref encounter procedureMD Zachary Mayes Work Phone: [facility] [place] Work Phone: Start: 12-28-2023 End: 16-46-4991qhpvzjhxndMN Zachary Mayes Work Phone: [phone] [place] [address] Medical Ctr Work Phone: Start: 12-22-2023 End: 44-81-0065Umwztgh encounter procedureMD Zachary Mayes Work Phone: [phone] [place] [address] [facility] [place] Work Phone: Start: 12-22-2023 End: 50-01-1792nnxyulanooHL Zachary Mayes Work Phone: [facility] Work Phone: Start: 12-20-2023 End: 03-12-1277Qsjpycm encounter procedureMD Zachary Mayes Work Phone: [phone] [place] [address] [facility] Ctr[facility] [place] Work Phone: Start: 12-20-2023 End: 54-61-8945zuavmxtncxJE Zachary Mayes Work Phone: [phone] [place] [address] Ctr Work Phone: Start: 12-09-2023 End: 27-01-2330Jqnecru encounter procedureMD Zachary Mayes Work Phone: [facility] [place] Work Phone: Start: 12-09-2023 End: 27-68-7722olugehllueMD Zachary Mayes Work Phone: [facility] Work Phone: Start: 12-07-2023 End: 94-45-0776Sjzfyei encounter procedureMD Zachary Mayes Work Phone: [phone] [place] [address] Ctr-[facility] [place] Work Phone: Start: 12-07-2023 End: 34-49-3404ihtdlqorycUJ Zachary Alvarez Gerber Work Phone: [facility] Work Phone: Start: 12-05-2023 End: 88-09-7074Ryixymd encounter procedureMD Zachary Mayes Work Phone: [facility] [place] Work Phone: Start: 12-05-2023 End: 97-22-3661iedulhoegoKR Zachary Mayes Work Phone: [facility] Work Phone: Start: 12-02-2023 End: 43-25-5819kocifreaqtNS Zachary Mayes Work Phone: [facility] Work Phone: Start: 12-02-2023 End: 95-09-4543Isotxvw encounter procedureMD Zachary Mayes Work Phone: [phone] [place] [address] [facility]tr-[facility] [place] Work Phone: Start: 05-01-2023 End: 45-22-8543Zyvnvjsey to same day surgery centerMD Zachary Mayes Work Phone: [facility] [place] Work Phone: Start: 05-01-2023 End: 86-69-7321ujvvdowttyEI Zachary Mayes Work Phone: [facility] Work Phone: Start: 03-21-2023 End: 06-05-6915smplkigqyaHlvds [place] Other [place] [employer] Other Start: 45-67-0982Bcktxq outpatient new 30 minutesAmbtony Guerrero [facility] Care ClydeStart: 02-01-2019 End: 31-02-9307Ftchgyxxv department patient visitVESELIN [facility]tart: 02-01-2019 End: 18-80-4233Zjuxagdfx department patient visitKeyla Leyva Work Phone: [facility] EDComment on above:Abdominal pain, right lower quadrant (Primary Dx); History of ovarian cyst Procedures DateProcedureProcedure DetailPerforming ClinicianStart: 54-97-4514Gdpmq dip stick/tablet rgnt non-auto w/o micrscpKristina Heather BUNDLE COLLECTOR Work Phone: Start: 31-14-5310Yptoo dip stick/tablet rgnt non-auto w/o micrscpCorey Peggy DO Work Phone: Start: 98-74-0389Aewrr dip stick/tablet rgnt non-auto w/o micrscpKristina Heather BUNDLE COLLECTOR Work Phone: Start: 89-77-9956ILFFFQM TOLERANCE 3 HOURAmy Cali DA SILVA Work Phone: Start: 49-74-1894Phbwa dip stick/tablet rgnt non-auto w/o micrscpCorey Peggy DO Work Phone: Start: 57-63-8714OTQEZNQ 1 HOURCorey Peggy DO Work Phone: Start: 26-20-1807IN ECHO DOPPLER COMPLETEAmy Cali DA SILVA Work Phone: Start: 86-87-0966Kdbvt dip stick/tablet rgnt non-auto w/o micrscpCorey Peggy DO Work Phone: Start: 53-20-3478Jcagk dip stick/tablet rgnt non-auto w/o micrscpAmy Cali DA SILVA Work Phone: Start: 42-16-7275Lwavu dip stick/tablet rgnt non-auto w/o micrscpCorey Peggy DO Work Phone: Start: 87-13-1482Zglzx dip stick/tablet rgnt non-auto w/o micrscpAmy Cali DA SILVA Work Phone: Start: 47-28-9596PPZTI FREE CELL DNA (NON-[facility] SEND OUT)Not In System Ref ProvStart: 71-83-1996JXEQOXHJO VAGINITIS (HTRX)Jack Peggy DO Work Phone: Start: 69-50-9916Drasb dip stick/tablet rgnt non-auto w/o micrscpCorey Peggy DO Work Phone: [phone]: 04-14-8186EMH,APTIMA HPV,AGE GDLNCorey Peggy DO Work Phone: [phone]: 99-47-7214AWICUTQSK REQUEST FOR LAB CORPCorey Peggy DO Work Phone: Start: 27-13-7347Gwilg dip stick/tablet rgnt non-auto w/o micrscpCorey Peggy DO Work Phone: [phone]: 19-33-1827CWD HEMOGLOBIN Q9JBkksh Peggy DO Work Phone: Start: 52-94-4222Pudbe dip stick/tablet rgnt non-auto w/o micrscpCorey Peggy DO Work Phone: Start: 62-10-0277WJJ PREG QUANT HCGCorey Peggy DO Work Phone: Start: 49-26-5712CDS PREG QUANT HCGCorey Peggy DO Work Phone: Start: 75-64-5445ZNO PREG QUANT HCGCorey Peggy DO Work Phone: Start: 66-08-8031IMT PREG QUANT HCGCorey Peggy DO Work Phone: Start: 95-08-0299JUY PREG QUANT HCGCorey Peggy DO Work Phone: Start: 86-31-2053CGU PREG QUANT HCGCorey Peggy DO Work Phone: Start: 75-27-7763UNO PROGESTERONECorey Peggy DO Work Phone: Start: 05-12-3416PFA PROGESTERONECorey Peggy DO Work Phone: Start: 52-67-6958ERO PREG QUANT HCGCorey Peggy DO Work Phone: Start: 55-48-9617GNL PROGESTERONECorey Peggy DO Work Phone: Start: 31-94-1900TKD HEMOGLOBIN S8DHzsct Peggy DO Work Phone: Start: 41-44-4199Vjcyjrjids ultrasound of gravid uterusMD Zachary Mayes Work Phone: Start: 36-46-2204Gkyeciuowc microscopic onlyVESELIN DIMITROVStart: 26-86-0919Joxke test visual color cmprsn methsVESELIN DIMITROVStart: 54-18-2345Gffzl dip stick/tablet rgnt auto w/o microscopyVESELIN DIMITROVStart: 87-20-2026Oudyu count complete auto&auto difrntl wbcVESELIN DIMITROVStart: 22-62-8787Zepjyxprgvfhl metabolic panelVESELIN DIMITROVStart: 14-70-3704Wftshzkoon microscopic onlyVeselin Dago Work Phone: start: 83-17-8358Bndbv test visual color cmprsn methsVeselin Dago Work Phone: start: 86-01-3088Gtfps dip stick/tablet rgnt auto w/o microscopyVeselin Dago Work Phone: start: 55-39-2985Xpune count complete auto&auto difrntl wbcVeselin Dago Work Phone: start: 25-78-7776Lmvjifcprnazr metabolic panelVeselin Dago Work Phone: Plan of Treatment DateCare ActivityDetailAuthorStart: 68-37-9274Aqnhm BMI ScreeningAdult BMI ScreeningProUniversity Hospitals Lake West Medical Centerca Health SystemStart: 65-21-4842Ctenhtu ScreeningTobacco ScreeningProMedica Health SystemStart: 03-26-2025 End: 53-67-9099Ohfbqom encounter rfcwnjxze83/12/2025 2:40 PM EST Routine [facility] [address] [place], [id number] Jack Woods DO [address] [place] [address] [facility] [place] OBGYNStart: 03-12-2025 End: 09-82-6453Ciypzge encounter procedureNOMS [place] OBGYNComment on above: ArrivedStart: 02-27-2025 End: 27-89-9123Rvrwkwbuofpz / ancillary services ujlfudfhbc76/16/2025 11:00 AM EDT Ancillary Procedure [facility] [address] [place] [address] [facility] [place] OBGYNStart: 02-25-2025 End: 93-01-3305RD.doppler Lower extremity vein - rightVascular US lower extremity venous duplex right Imaging Routine Pain of right lower extremity Expected: 02/25/2025, Expires: 02/25/2026[facility] Work Phone: Comment on above:Expected: 02/25/2025, Expires: 02/25/2026Start: 02-25-2025 End: 44-57-7928Ivlwrta encounter procedureNOMS [facility] OBGYNComment on above: ArrivedStart: 02-19-2025 End: 74-78-7008Ilrppjbuqsib / ancillary services asawcuezlv17/08/2025 11:30 AM EDT Ancillary Procedure [facility] [address] [place] [address] [facility] OBGYNStart: 02-11-2025 End: 93-01-3319UR for pregnancyUS OB follow up transabdominal approach Imaging Routine size inconsistent with dates ([facility]) Expected: 02/11/2025, Expires: 06/13/2025NONV Healthcare Work Phone: comment on above:Expected: 02/11/2025, Expires: 06/13/2025Start: 02-11-2025 End: 11-39-6470Gpctvra encounter procedureNO [facility] OBGYNComment on above: ArrivedStart: 01-28-2025 End: 82-35-4965Gqjvmpowtqq of glucose 3 hours after glucose challenge for glucose tolerance testGlucose tolerance, 3 hours Lab Routine Elevated glucose tolerance test Expected: 01/28/2025 (Approximate), Expires: 01/28/2026[facility] Work Phone: Comment on above:Expected: 01/28/2025 (Approximate), Expires: 01/28/2026Start: 01-28-2025 End: 67-28-6007Jbuwvvr encounter procedureNO [facility] OBGYNComment on above: ArrivedStart: 01-21-2025 End: 56-33-2417Vktoxnt encounter /09/2025 8:40 AM EDT Office Visit RIMMA GALDAMEZ [address] [place] [address] [place] [phone] Jack Woods, DO [address] [place] [address] RIMMA HOPEGYNStart: 01-16-2025 End: 84-11-3817Wpgkkte encounter qehqbtfpg93/04/2025 9:20 AM EDT Office Visit RIMMA GALDAMEZ [address] [place] [address] [place] [phone] Jack Woods, DO [address] [place] [address] Carlin [place] OBGYNComment on above:ArrivedStart: 78-96-4659Hhjjugbpb vaccinationInfluenza VaccineCleveland Clinic Lutheran Hospitalca Health SystemStart: 01-07-2025 End: lead ECGECG 12 lead unit performed ECG Routine Palpitations Expected: 01/07/2025 (Approximate), Expires: 01/07/2026[facility] Work Phone: comment on above:Expected: 01/07/2025 (Approximate), Expires: 01/07/2026Start: 01-07-2025 End: 21-19-8538Kafbthxpmlukdj 2D completeEchocardiogram 2D complete Echocardiography Routine Palpitations Tachycardia Expected: 01/07/2025 (A pproximate), Expires: 01/07/2027NONV HealthcareComment on above:Expected: 01/07/2025 (Approximate), Expires: 01/07/2027Start: 01-07-2025 End: 50-04-9045Bvggvsq encounter mdjgeaxqu89/26/2025 1:50 PM EDT Office Visit RIMMA GALDAMEZ [address] [place] [phone] Jayla Art PA [address] [place] [address] ArrivedRIMMA [place] OBGYNComment on above:ArrivedStart: 12-31-2024 End: 32-81-1749Mcosrch encounter eefavcbix81/19/2025 2:10 PM EDT Routine RIMMA SILVESTREN [address] [place], [id number] Jack Woods DO [address] [place], [place] [id number] ArrivedRIMMA [place] OBGYNComment on above:ArrivedStart: 12-31-2024 End: 05-71-9350BFU panel - Blood by Automated countCBC Lab Routine Diabetes mellitus screening Expected: 12/31/2024 (Approximate), Expires: 12/31/2025[facility] Work Phone: comment on above:Expected: 12/31/2024 (Approximate), Expires: 12/31/2025Start: 12-31-2024 End: 56-64-6161Qpxpspubtoa of glucose 1 hour after glucose challenge for glucose tolerance testGlucose tolerance, 1 hour Lab Routine Diabetes mellitus screening Expected: 12/31/2024 (Approximate), Expires: 12/31/2025[facility] HealthcareComment on above:Expected: 12/31/2024 (Approximate), Expires: 12/31/2025Start: 12-10-2024 End: 72-15-6956Yfjraml encounter rfmsiaefa11/29/2025 1:30 PM EDT Appointment [facility] [place] [address] [place] [id number] [phone] 12-[facility]-2024 End: 00-70-9002Rwnkdho encounter procedureNOMS BCP OBComment on above:Second trimester ([facility])Start: 11-12-2024 End: 01-42-7179JF Pelvis WO contrastMR pelvis without contrast Imaging Routine Adnexal mass 16 weeks gestation of Expected: 11/12/2024, Expires: 11/12/2025[facility] Work Phone: Comment on above:Expected: 11/12/2024, Expires: 11/12/2025Start: 11-12-2024 End: 14-84-0838XE MFM with or without consultUS MFM with or without consult Imaging Routine Adnexal mass Uterine fibroids affecting insecond trimester Localized swelling of right lower extremity Expected: 11/12/2024, Expires: 11/12/2025[employer] Work Phone: Comment on above:Expected: 11/12/2024, Expires: 11/12/2025Start: 11-12-2024 End: 78-35-0994TI.doppler Lower extremity vein - rightVas venous duplex insufficiency lwr rt Vascular Ultrasound Routine Localized swelling of right lower extremity Expected: 11/12/2024, Expires: 11/12/2025[facility] Comment on above:Expected: 11/12/2024, Expires: 11/12/2025Start: 11-05-2024 End: 66-30-2789Rveyf fetoprotein, maternalAlpha fetoprotein, maternal Lab Routine Second trimester ([facility]) 15 weeks gestation of ([facility]) Expected: 11/05/2024 (Approximate), Expires: 05/07/2025[facility] Comment on above:Expected: 11/05/2024 (Approximate), Expires: 05/07/2025Start: 11-05-2024 End: 80-07-4926Hevcwdj encounter procedureNOKAISER FOUNDATION [facility]OSPITAL OBComment on above:Arrived Start: 22-51-9472VbiahohybAvita Health System Ontario Hospitaltart: 10-08-2024 End: 21-27-4905Fifnwhi encounter procedureNOMS [facility] OBComment on above:Arrived Start: 09-19-2024 End: 57-86-0013UUB/RhABO/Rh Lab Routine Missed menses , unspecified gestational age Expected: 09/19/2024 (Approximate), Expires: 09/19/2025[facility] HealthcareComment on above:Expected: 09/19/2024 (Approximate), Expires: 09/19/2025Start: 09-19-2024 End: 70-78-4803Zbsrr type and Indirect antibody screen panel - BloodType and screen Lab Routine Missed menses , unspecified gestational age Expected: 09/19/2024 (Approximate), Expires: 09/19/2025[facility] Work Phone: comment on above:Expected: 09/19/2024 (Approximate), Expires: 09/19/2025Start: 09-19-2024 End: 56-66-4819Xccxv of abuse panel - Urine by Screen methodRapid drug screen, urine Lab Routine , unspecified gestational age Encounter for supervision of normal first in first trimester Expected: 09/19/2024 (Approximate), Expires: 09/19/2025[facility] HealthcareComment on above:Expected: 09/19/2024 (Approximate), Expires: 09/19/2025Start: 09-19-2024 End: 52-69-9811uctsdyrasy10/08/2025 1:30 PM EDT Initial [facility] OB [address] [place], [place] [address] [place] [address] [phone] BCP OBStart: 09-19-2024 End: 72-54-4729Brodenibapyc / ancillary services iwvxkpknjg24/08/2025 1:00 PM EDT Ancillary Procedure [facility] OB [address] [place] [address] TTIZ BCP OBStart: 08-28-2024 End: 54-75-5013Jlzczkyrulwe / ancillary services onsrwcfxbr47/16/2025 8:30 AM EDT Ancillary Procedure [facility] OB [address] [place] [address] FELB BCP OBStart: 04-10-2024 End: 21-62-7103Rtluawgctllwm hormone (AMH)Antimullerian hormone (AMH) Lab Routine Hormone disorder Expected: 04/10/2024 (Approximate), Expires: 04/10/2025 [facility] Work Phone: comment on above:Expected: 04/10/2024 (Approximate), Expires: 04/10/2025Start: 04-10-2024 End: 07-51-7633Xcqbrlp encounter ndysjkcia47/27/2024 11:10 AM EST Office Visit [facility] OB [address] [place] [phone] Jack Woods, DO [address] [place] [address] ArrivedNOKAISER FOUNDATION [facility]PITAL OBComment on above:ArrivedStart: 2024 End: 81-48-7746Mulghnb encounter hcmcoicwi86/24/2024 1:20 PM EDT Office Visit [facility] OB [address] [place] [address] Jack Woods, DO [address] [place] [address] [facility] OBStart: 56-34-7588CJrW,Tdap and Td Vaccines (2 - Td or Tdap)DTaP,Tdap and Td Vaccines (2 - Td or Tdap)[place] SystemStart: 35-77-2911Hkdvmnudj for malignant neoplasm of cervixPap Smear ProMFederal [facility], [place] SystemStart: 44-79-2682Jfcemjjph vaccinationFlu vaccine (#1) [facility]: 14-45-6148Vmger BMI Follow Up PlanAdult BMI Follow Up [facility]: 40-25-6899Omqcrehigk ScreeningDepression ScreeningOhio State Harding HospitalBacteria identified in Urine by CultureUrine culture Microbiology Routine Missed menses Ordered: 09/19/2024[facility] Comment on above:Ordered: 09/19/2024BC W Auto Differential panel - BloodCBC and differential Lab Routine Missed menses , unspecified gestational age Ordered: 09/19/2024[facility] HealthcareComment on above:Ordered: 09/19/2024BC W Auto Differential panel - BloodCBC and differential Lab Routine Third trimester ([facility]) Ordered: 03/12/2025[facility] Work Phone: comment on above:Ordered: 03/12/2025HLAMYDIA TRACHOMATIS (GENITO/STI)CHLAMYDIA TRACHOMATIS (GENITO/STI) Lab Routine STD exposure Ordered: 11/05/2024[facility] HealthcareComment on above:Ordered: 11/05/2024 Cytology Cervical or vaginal smear or scraping studyPap Smear Pathology and Cytology Routine Well woman exam with routine gynecological exam Ordered: [facility] HealthcareComment on above:Ordered: 11/05/2024Hemoglobin A1c/Hemoglobin.total in BloodHemoglobin A1c Lab Routine Missed menses , unspecified gestational age Ordered: 09/19/2024[facility] HealthcareComment on above: Ordered: 09/19/2024Hepatitis B virus surface Ag [Presence] in Serum or Plasma by ImmunoassayHepatitis B surface antigen Lab Routine Missed menses , unspecified gestational age Ordered: 09/19/2024[facility] HealthcareComment on above: Ordered: 09/19/2024Hepatitis C virus Ab [Presence] in Serum or Plasma by ImmunoassayHepatitis C antibody Lab Routine Missed menses , unspecified gestational age Ordered: 09/19/2024[facility] HealthcareComment on above:Ordered: 09/19/2024HIV-1/HIV-2 antigen/antibody combination immunoassayHIV-1 and HIV-2 antibodies Lab Routine Missed menses , unspecified gestational age Ordered: 09/19/2024[facility] HealthcareComment on above:Ordered: 09/19/2024Neisseria gonorrhoeae DNA [Presence] in Unspecified specimen by DARIUS with probe detection Neisseria gonorrhea DNA probe, direct Lab Routine STD exposure Ordered: 11/05/2024[facility] HealthcareComment on above:Ordered: 11/05/2024Progesterone [Mass/volume] in Serum or PlasmaKettering Health DaytonReagin Ab [Presence] in Serum by RPRRPR Lab Routine Missed menses , unspecified gestational age Ordered: 09/19/2024[facility] HealthcareComment on above:Ordered: 09/19/2024Rubella antibody, IgGRubella antibody, IgG Lab Routine Missed menses , unspecified gestational age Ordered: 09/19/2024[facility] HealthcareComment on above:Ordered: 09/19/2024SURESWAB(R) ADVANCED VAGINITIS PLUS, TMASURESWAB(R) ADVANCED VAGINITIS PLUS, TMA Pathology and Cytology Routine Vaginal discharge Ordered: 11/05/2024[facility] Work Phone: comment on above:Ordered: 11/05/2024 Immunizations Immunization DateImmunizationNotesCare JryywiliVtiaxhwr49-27-8593rnqzqdgvj virus vaccine, unspecified formulationGuadalupe Peres MD Work Phone: [facility] Payers DatePayer CategoryPayerPolicy [id number] Man[facility] - PPOANTHEM Member Subscriber Plan / Payer (Effective 2024-Present) Name: Jaguar Katarina Relation to Subscriber: Self Name: Daphney Al PayerID: [id number] (NAIC) Type: Not on file Address: [facility] [address] [place] [id number] Hospital 1.2.840.364968.1.13.693.2.7.9.785464.257291.69826-95-1853FucrkcpYQM987H31674 43-19-9634Qcwprgl Health [id number] .7.097238.4360-20-2024 Ohfh-wryv0r31658-8o33kshf0j38965-0n37-7w27-7v53-6p51494zl73s09-18-5817Tfkixhw Health Insurance 1.2.840.595295.1.13.693.2.7.3.272127.48[id number] UnknownBCBS BCBS - [place] PPO xxxxxxxxxxxx 2014-Present [address] [place], [place] [address]xvjaaojisiyy 1.2.840.725390.1.13.239.2.7.3.721991.18661-08-3060Xeymmgx [id number] 2..1.650139.3.579.2.0[id number] 2..1.679893.3.579.2.3[id number] 2..1.775646.3.579.2.379837-47-9874Uytcmfa176786314 2..1.162114.3.579.2.264260-27-1201Jrfqyrr19609639 2..1.340914.3.579.2.586972-80-7680Qsfhowh95120421 2.0.1.427279.3.579.2.036564-67-9078Glbfawf39149872 2.0.1.451839.3.57[id number] 2.16840.1.796797.3.579.2.[id number] 2.0.1.679779.3.579.2.931308-31-2521Fwaxhfd39699790 2.160.1.146148.3.579.2.233935-50-7082Yepgiau40806278 2..1.889373.3.579.2.628381-38-7150Qpckbtc31154771 2..1.086086.3.579.2.609065-43-7562Ejlhyad45362557 2..1.002023.3.579.2.457161-99-2525Jmnmfwc51137002 2..1.726850.3.579.2.696893-52-8419Fpaeexd3075485 2.0.1.324980.3.579.2.285378-81-6644Azrzcrr5749931 2..1.753873.3.579.2.641783-59-3907Gfgctep4512979 2..1.884446.3.579.2.168016-24-1822Rjkpfcg4101500 2..1.524048.3.579.2.484939-74-0307Dvpkrpw3495127 2.0.1.736055.3.579.2.4752SjinnmgXDN625925976193 17n7p596-p70p-86tf-bz02-9l55t651q9kyEvnuucpOtrqtq /[id number] 94yc2e03-9725-3gj3-p06z-[id number] 2.16.840.1.729342.3.579.2.930Lkqwrvn80139827 2.16.840.1.960916.3.579.2.531 Yvffzxm38900149 2.16.840.1.460533.3.579.2.223Mkaximo85288511 2.16.840.1.043439.3.579.2.591Pblojpq86643171 2.16.840.1.292919.3.579.2.531 Slnusmp86473732 2.16.840.1.028065.3.579.2.676Cgfgrpz59438812 2.16.840.1.312053.3.579.2.662Geopwcd75767074 2.840.1.882404.3.579.2.531 Aalkqeu13934483 2.16.840.1.476175.3.579.2.531 Social History DateTypeDetailFacilityStart: 02-01-2019 End: 84-07-3827Vbgrcxw smoking status NHISNegood [facility] smokerAvita Health System Ontario Hospitaltart: 02-01-2019 End: 07-15-9735Crtdnlq intakeNot [facility]: 2000 Sex Assigned At BirthNot on [facility]: 15-21-3277Zbi Assigned At BirthFeLutheran Hospitaltart: 2024 End: 49-37-0315Sjqkrskjy beverage intakeLifetime non-drinker (finding)[facility] HealthcareStart: 04-28-2023 End: 71-14-9394Lgcondr of Social functionNOMS HealthcareStart: 78-53-6552Lmvwzyi CommentCaffeine intake: 3-4 cups per dayNONV HealthcareStart: 08-06-2024 PregnancyNOMS HealthcareStart: 56-98-7001QocEqonak (finding)[facility] Hospitalt[facility]: 14-79-8571Xdloqa the past 12 months we worried whether our food would run out before we got money to buy more.Never [facility] Clinical Notes 03-21-2023 to 03-12-2025 Note Date & HxcpYamjYuvevvkf41-60-6356 History of Present illness Narrative* Hazel Romero, BUNDLE COLLECTOR - 03/12/2025 2:40 PM EDT Reason for Appointment: Patient ID: Daphney Al is a 25 y.o. female who presents for Routine Visit Patient presents today for Return OB appointment. MEDICATIONS Current Outpatient Medications Medication Instructions aspirin 81 MG oral suspension ondansetron (Zofran) 4 MG tablet TAKE 1 TABLET BY MOUTH EVERY 6 HOURS NEEDED FOR NAUSEA AND VOMITING Vit w/Ya-Segmxorax-GB (PNV PO) ALLERGIES Allergies Allergen Reactions Cephalexin [...] nursing note reviewed. Exam conducted with a fountain brush assembler present. Vitals: Estimated body mass index is 30.55 kg/m as calculated from the following: Height as of 02/06/24: 5' 6 . Weight as of this encounter: 189 lb 4 oz. BP: 102/72 Patient's last menstrual period was 07/23/2024. Assessment/Plan ICD-10-CM 1. Third trimester ([facility]) Z34.93 POCT urinalysis dipstick manually resulted 2. 33 weeks gestation of ([facility]) Z3A.33 Return OB: Patient presents today for [...] week for routine OB appointment. Documented by Hazel Romero NP on behalf of: Hazel Romero NP documented in this encounterFreeman Health SystemHhyimruxpm35-11-2060 History of Present illness Narrative* Lisapeter Prasad, BRIANA - 02/25/2025 1:50 PM EDT [...] 6 hours as needed for nausea. Vit w/Sg-Lwwynhygc-KJ (PNV PO) ALLERGIES Allergies[1] PROBLEMS Active Ambulatory Problems Diagnosis Date Noted No Active Ambulatory Problems Resolved Ambulatory Problems Diagnosis Date Noted No Resolved Ambulatory Problems Past Medical History: Diagnosis Date Acne vulgaris Endometriosis History of medical problems Miscarriage ([facility] Ovarian cyst HISTORY PAST MEDICAL HISTORY SOCIAL [...] nursing note reviewed. Exam conducted with a fountain brush assembler present. Vitals: Estimated body mass index is 30.67 kg/m as calculated from the following: Height as of 02/06/24: 5' 6 . Weight as of this encounter: 190 lb. BP: 120/70 Patient's last menstrual period was 07/23/2024. ASSESSMENT & PLAN ICD-10-CM 1. Third trimester ([facility]) Z34.93 POCT urinalysis dipstick manually resulted 2. 31 weeks gestation of ([facility]) Z3A.31 3. POTS (postural orthostatic tachycardia syndrome) [...] Diagnostic lap-endometriosis TONSILLECTOMY 11/03/2016 documented in this encounterFreeman Health SystemQtnzguqkyh93-89-0496 History of Present illness Narrative* Hazel Romero, JAZZY - 02/11/2025 9:50 AM EDT Reason for Appointment: Patient ID: Daphney Al is a 25 y.o. female who presents for Routine Visit Patient presents today for Return OB appointment. MEDICATIONS Current Outpatient Medications Medication Instructions aspirin 81 MG oral suspension ondansetron (ZOFRAN) 4 mg, Oral, Every 6 hours PRN, Take 1 tablet by mouth every 6 hours as needed for nausea. Vit w/If-Unjtueviu-JM (PNV PO) ALLERGIES Allergies Allergen Reactions Cephalexin [...] nursing note reviewed. Exam conducted with a fountain brush assembler present. Vitals: Estimated body mass index is 30.18 kg/m as calculated from the following: Height as of 02/06/24: 5' 6 . Weight as of this encounter: 187 lb. BP: 118/72 Patient's last menstrual period was 07/23/2024. ASSESSMENT & PLAN ICD-10-CM 1. Third trimester ([facility]) Z34.93 POCT urinalysis dipstick manually resulted 2. 29 weeks gestation of ([facility]) Z3A.29 Return OB: Patient presents today for a routine obstetrics appointment. Patient is currently 29w0d . Patient states she is doing well but has complaints of being tired due to current . Patient has verbalizes frequent movement. labor precautions was discussed/given and patient was instructed to perform kick counts three times a day. Patient has been evaluated by [facility] Cardiology with a history of syncopal episodes [...] of: Hazel Romero NP documented in this encounterFreeman Health SystemRdjghlghek17-97-5479 History of Present illness Narrative* REKHA Ott [...] 6 hours as needed for nausea. Vit w/We-Jvqrfksfq-KM (PNV PO) ALLERGIES Allergies Allergen Reactions Cephalexin [...] ASSESSMENT & PLAN ICD-10-CM 1. Second trimester ([facility]) Z34.92 POCT urinalysis dipstick manually resulted 2. 27 weeks gestation of ([facility]) Z3A.27 3. Elevated glucose tolerance test R73.09 [...] behalf of: REKHA Ott documented in this encounterFreeman Health SystemXlljznclsg75-76-4806 [facility] Note Reason for [...] negative for PE or any abnormalities. Her deputy sheriff civil division ordered echo which came back normal. A [...] she cannot go b (more content not included)...[facility]09-04-2025 History of Present illness Narrative* Kelley [...] 6 hours as needed for nausea. Vit w/Py-Uauzbfamx-MC (PNV PO) ALLERGIES Allergies Allergen Reactions Cephalexin [...] nursing note reviewed. Exam conducted with a fountain brush assembler present. Vitals: Estimated body mass index is 29.67 kg/m as calculated from the following: Height as of 02/06/24: 5' 6 . Weight as of this encounter: 183 lb 12.8 oz. BP: 120/78 Patient's last menstrual period was 07/23/2024. ASSESSMENT & PLAN ICD-10-CM 1. 25 weeks gestation of ([facility]) Z3A.25 POCT urinalysis dipstick manually resulted 2. Second trimester ([facility]) Z34.92 POCT urinalysis dipstick manually resulted 3. Palpitations R00.2 4. Syncope, unspecified syncope type R55 5. Gastroesophageal reflux in ([facility]) O99.619 K21.9 Patient presents today for a routine obstetrics appointment. Patient is currently 25w2d with a Estimated Date of Delivery: 04/29/25. Patient had spells where she passed out. Patient to have Cardiac Consult hopefully within the next week. Referral will be made today to Cardiology at [facility]. Patient has a EKG scheduled for Monday at 1pm. Patient voiced that she sees stars and then gets dizzy.Advised to increase protein and to remain off work until cleared by Cardiology. Patient to return to clinic 1 week. Documented by Kelley Sepulveda LPN on behalf of: Jack Woods DO documented in this encounterFreeman Health SystemJguukzrcrf99-07-7551 History of Present illness Narrative* REKHA Ott [...] 6 hours as needed for nausea. Vit w/Zk-Lxrspkmlv-DY (PNV PO) pyridoxine (VITAMIN B-6) 25 mg, [...] vulgaris Endometriosis History of medical problems Miscarriage ([facility]) Ovarian cyst HISTORY PAST MEDICAL HISTORY SOCIAL HISTORY Past Medical History: Diagnosis Date Acne vulgaris Endometriosis History of medical problems recurrent strep Miscarriage ([facility]) Ovarian cyst Social History Tobacco Use Smoking [...] ASSESSMENT & PLAN ICD-10-CM 1. Second trimester ([facility]) Z34.92 POCT urinalysis dipstick manually resulted iron polysaccharides (ProFe) 391.3 (180 Fe) MG capsule 2. 23 weeks gestation of ([facility]) Z3A.23 3. Palpitations R00.2 ECG 12 [...] behalf of: REKHA Ott documented in this encounterFreeman Health SystemTcbcooljin96-68-1665 History of Present illness Narrative* Lisa Prasad, BRIANA - 12/31/2024 2:10 PM EDT Reason for [...] 6 hours as needed for nausea. Vit w/Wr-Nhcpbwhmk-ST (PNV PO) pyridoxine (VITAMIN B-6) 25 mg, [...] nursing note reviewed. Exam conducted with a fountain brush assembler present. Vitals: Estimated body mass index is 29.83 kg/m as calculated from the following: Height as of 02/06/24: 5' 6 . Weight as of this encounter: 184 lb 12.8 oz. BP: 112/62 Patient's last menstrual period was 07/23/2024. ASSESSMENT & PLAN ICD-10-CM 1. Second trimester ([facility]) Z34.92 POCT urinalysis dipstick manually resulted 2. 23 weeks gestation of ([facility]) Z3A.23 POCT urinalysis dipstick manually resulted [...] of: Jack Woods DO documented in this encounterFreeman Health SystemOfceeepgxp54-48-2832 History of Present illness Narrative* REKHA Ott [...] 6 hours as needed for nausea. Vit w/Ov-Ytvooqdbj-JA (PNV PO) pyridoxine (VITAMIN B-6) 25 mg, [...] vulgaris Endometriosis History of medical problems Miscarriage ([facility]) Ovarian cyst HISTORY PAST MEDICAL HISTORY SOCIAL HISTORY Past Medical History: Diagnosis Date Acne vulgaris Endometriosis History of medical problems recurrent strep Miscarriage ([facility]) Ovarian cyst Social History Tobacco Use Smoking [...] ASSESSMENT & PLAN ICD-10-CM 1. Second trimester ([facility]) Z34.92 POCT urinalysis dipstick manually resulted 2. 19 weeks gestation of ([facility]) Z3A.19 Return OB: Patient presents today [...] behalf of: REKHA Ott documented in this encounterFreeman Health SystemGvvzecsazb22-08-9150 History of Present illness Narrative* Guadalupe Peres MD - 11/12/2024 10:00 AM EDT Images from the original note were not included. REASON FOR CONSULTATION: Bilaterally enlarged ovaries HISTORY OF PRESENT ILLNESS: Dapheny Al is a pleasant 24 y.o. at [...] per patient report Carrier screening: Baby Boy: Rbuin Parra I have reviewed the pertinent available [...] nausea or vomiting., Disp: , Rfl: PNV 24-nyjl-ydsymcltqxhp-dha 29 mg iron-1 mg -350 mg comb [...] TESTS AND ULTRASOUND REPORTS: Referral records and [facility] chart were reviewed Pertinent Ultrasound findings [...] and malignant etiologies. Ref: Gregg Duke, Gregg Casanova.Stockton State HospitalIrvin (Eds.) (2019) Romero's maternal- medicine :principles and practice Page, [place] : Hall/Elsevier Sonographic diagnosis of ovarian torsion: accuracy and predictive factors. Monica R, Jeff N, Zion N, Sohan-Chelsea G, Bright I. J Ultrasound Med. 2010;30(9):1205-10. Adnexal masses in : An updated review. Olivia AMIN, Dorie I, Adelaide DOMÍNGUEZ, Nory H, A [facility]. [facility]. 2017 Feb-Apr;7(4):153-157. doi: 10.4103/aj.AJM_22_17. PMID: [id number] Uterine fibroids, affecting I reviewed the uterine [...] and evaluation of bilateral adnexal masses, through M Recommend repeat growth ultrasound in the 3rd trimester, through primary OB, given known uterine fibroid Anticipate term vaginal delivery at local hospital Precautions regarding shortness of breath and chest pain were reviewed with the patient today DISPOSITION: At this point the patient is in complete care of her deputy sheriff civil division. Thank you for allowing me to participate in the care of Daphney Al. If there any questions please do not hesitate to contact us. Guadalupe Peres MD Maternal- Medicine [facility] [address] [facility] 1[address] [place] [address] This document was created with [employer] technology. Though I make every effort to review the dictation as it is transcribed, on occasion the spoken word can be misinterpreted by the technology leading to inappropriate words, phrases, or sentences. This note is addressed to the requesting provider as a consultation for clinical guidance. Specificmedical abbreviations are occasionally used and those are generally approved by the [place]?Board of?Obstetrics and?Gynecology?as well as?Graham chan abbreviations. The above plan of care was based solely on the diagnoses for which a consultation was requested. ?More frequent testing may be indicated based on her other medical/obstetrical conditions. The management of other or medical conditions is beyond the scope of requested consultation and will c ontinue to be followed by the primary deputy sheriff civil division or primary care provider. Note to patient: [...] risk Have you been seen here at [facility] in a previous ? No Recent ER visits or hospitalizations? No Bring blood sugar log or meter with you today? (Please bring them with you for every visit at [facility]) N/A Flu vaccine (Mar-July)? N/A Any concerns that you would like me to mention to the provider today? R calf bruising, +Homans sign, wants to make sure about cysts, feeling nervous about cervix being short, has never been this far along. Right calf = 36.4cm, Left calf = 39.0cm documented in this encounterOhio State Harding Hospital06-24-2025 History of Present illness Narrative* Lisa Prasad [...] 6 hours as needed for nausea. Vit w/Jn-Qgbkcoqva-PA (PNV PO) pyridoxine (VITAMIN B-6) 25 mg, [...] vulgaris Endometriosis History of medical problems Miscarriage ([facility]) Ovarian cyst HISTORY PAST MEDICAL HISTORY SOCIAL HISTORY Past Medical History: Diagnosis Date Acne vulgaris Endometriosis History of medical problems recurrent strep Miscarriage ([facility]) Ovarian cyst Social History Tobacco Use Smoking [...] nursing note reviewed. Exam conducted with a fountain brush assembler present. Vitals: Estimated body mass index is 27.02 kg/m as calculated from the following: Height as of 02/06/24: 5' 6 . Weight as of this encounter: 167 lb 6.4 oz. BP: 106/68 Patient's last menstrual period was 07/23/2024. ASSESSMENT & PLAN ICD-10-CM 1. Well woman exam with routine gynecological exam Z01.419 Pap Smear 2. Second trimester ([facility]) Z34.92 POCT urinalysis dipstick manually resulted Alpha fetoprotein, maternal Alpha fetoprotein, maternal 3. 15 weeks gestation of ([facility]) Z3A.15 POCT urinalysis dipstick manually resulted Alpha fetoprotein, maternal Alpha fetoprotein, maternal 4. Vaginal discharge N89.8 SURESWAB(R) ADVANCED VAGINITIS PLUS, TMA 5. STD exposure Z20.2 CHLAMYDIA TRACHOMATIS (GENITO/STI) Neisseria gonorrhea DNA probe, direct Return OB/Annual Exam: Patient presents today for a annual exam/routine obstetrics appointment. Patient is currently 76. Patient states she is doing well but [...] of: Jack Woods DO documented in this encounterFreeman Health [id number] History of Present illness Narrative* Lisa Prasad LPN - 10/08/2024 2:30 PM EDT Reason for Appointment: Patient ID: Daphney lA is a 24 y.o. female who presents [...] 6 hours as needed for nausea. Vit w/Nd-Dxztpuzrl-YN (PNV PO) pyridoxine (VITAMIN B-6) 25 mg, [...] nursing note reviewed. Exam conducted with a fountain brush assembler present. Vitals: Estimated body mass index is [...] or undercooked meat, and stay away from [facility]. Patient has been consulted regarding any [...] of: Jack Woods DO documented in this encounterFreeman Health [id number] History of Present illness Narrative* Manjula Elias [...] the following prescription(s): aspirin, omeprazole, ondansetron, vit w/eg-sywtkiqcf-zg, and progesterone. Medical History: Active Ambulatory Problems [...] or undercooked meat, and stay away from [facility]. Patient has also been advised to [...] by: Manjula Elias MA documented in this encounterFreeman Health [id number] History of Present illness Narrative* Lisa Prasad, BRIANA - 04/10/2024 11:10 AM EST Reason for Appointment: Patient ID: Daphney Al is a 24 y.o. female who presents for Infertility Patient presents today for Fertility Follow Up appointment. MEDICATIONS Current Outpatient Medications Medication Instructions aspirin 81 MG oral suspension Vit w/Mc-Hpoyawykj-RP (PNV PO) ALLERGIES Allergies Allergen Reactions Cephalexin [...] nursing note reviewed. Exam conducted with a fountain brush assembler present. Vitals: Estimated body mass index is 27.6 kg/m as calculated from the following: Height as of 9/24/24: 5' 6 . Weight as of this [...] Pt voiced understanding. Discussed LAST referral towards [place]. Documented by Lisa Prasad LPN on behalf of: Jack Woods DO documented in this encounterFreeman Health [id number] History of Present illness Narrative* Lisa Prasad LPN - 2024 1:20 PM EDT Reason for Appointment: Patient ID: Daphney Al is a 23 y.o. female who presents for Infertility Patient presents today for Fertility Follow Up appointment. MEDICATIONS Current Outpatient Medications Medication Instructions aspirin 81 MG oral suspension Vit w/Vk-Zgzbvgaks-OK (PNV PO) ALLERGIES Allergies Allergen Reactions Cephalexin [...] nursing note reviewed. Exam conducted with a fountain brush assembler present. Vitals: Estimated body mass index is [...] of: Jack Woods DO documented in this encounterFreeman Health [id number] Evaluation note* Encounter Date Diagnosis Assessment Notes [...] treatment plan. Patient left in stable condition [facility] Other Evaluation noteNo assessment information available [facility] Work Phone: Evaluation note* Diagnosis Encounter for infertility Hormone disorder Unspecified endocrine disorder documented in this encounter [facility] HealthcareEvaluation [facility]* Diagnosis Female infertility Female infertility of unspecified origin History of miscarriage Personal history of other genital system and obstetric disorders documented in this encounter [facility] HealthcareEvaluation [facility]* Diagnosis Missed menses , unspecified gestational age Encounter for supervision of normal first in first trimester Gastroesophageal reflux in Nausea and vomiting during documented in this encounter [facility] HealthcareEvaluation note* Diagnosis 11 weeks gestation of First trimester state, incidental Other constipation Gastroesophageal reflux in documented in this encounter [facility] HealthcareEvaluation note* Diagnosis Adnexal mass- Primary Other specified symptom associated with female genital organs 16 weeks gestation of Uterine fibroids affecting in second trimester Localized swelling of right lower extremity [facility]* Diagnosis Adnexal mass- Primary Other specified symptom associated with female genital organs Uterine fibroids affecting in second trimester Localized swelling of right lower extremity documented in this encounter [place] SystemEvaluation note* Diagnosis Well woman exam with routine gynecological exam Routine gynecological examination Second trimester ([facility]) state, incidental 15 weeks gestation of ([facility]) [...] lower extremity documented in this encounter [facility]* Diagnosis Hemorrhoids, unspecified hemorrhoid type- Primary Third trimester ([facility]) state, incidental 33 weeks gestation of ([facility]) documented in this encounter [facility] HealthcareHistory general Narrative - Reported* Type Description Date Surgical History tonsillectomy Surgical Historylaparoscopy [facility] Other InstructionsNot on filedocumented in this encounter [facility] SystemInstructionsNot on filedocumented in this encounter [facility] SystemReason for referral (narrative)No reason for referral information availableUpper [facility] Work Phone: Summary Purpose Family History No Family History Records Found Relationship Condition Age at Onset Recorded Date/T juliette father Congestive heart failure Unknown Advance Directives No Advanced Directives Records FoundDocuments on File TypeDate RecordedPatient RepresentativeExplanationAdvance Directives and Living WillPower of Patient Care Assistant Advance Directive Response Recorded Date/ Time Advance Directives No August 08 7:47am Advance Directive Response Recorded Date/ Time Advance Directives No August 08 8:47am Discharge Instructions * Instructions* Keyla Leyva MD - 02/01/2019 Follow-up with [facility] * Attachments The following attachments cannot be sent through Care Everywhere. * Abdominal Pain ([place]) * Appendicitis ([place]) documented in this encounter Assessments Diagnosis Abdominal [...] section and content) DATE CREATED AUTHOR 02/01/[address] [facility] DATE CREATED AUTHOR AUTHOR'S ORGANIZ ATION 05/05/2023 [facility] DATE CREATED AUTHOR AUTHOR'S ORGANIZ ATION 11/13/2024 [facility] DATE CREATED AUTHOR AUTHOR'S ORGANIZ ATION 11/13/[address] [facility] DATE CREATED AUTHOR AUTHOR'S ORGANIZ ATION 12/12/2024 [facility] DATE CREATED AUTHOR AUTHOR'S ORGANIZ ATION 01/26/2025 [facility] DATE CREATED AUTHOR AUTHOR'S ORGANIZ ATION 03/14/2025 [facility] EPIC Reason for Visit (unrecogniz ed section and content) ReasonCommentsRoutine VisitSpecialtyDiagnoses / ProceduresReferred By ContactReferred To ContactObstetrics and Gynecology Diagnoses Enlarged & Heterogeneous Bilateral Ovaries 2.3cm Isoechoic Left-sided Lesion Possible Endometrioma Procedures [place] UNLISTED EVALUATION AND MANAGEMENT SERVICE [facility] [address] [place] [address] Jack Woods DO [address] [place], [place] [address]jay[place] [address] Phone: tel: fax: Referral IDStatusReasonStart DateExpiration DateVisits RequestedVisits [id number] PainRLQ pain x 1 hourReasonCommentsInfertilityReasonCommentsAmenorrheaReasonCommentsEnlarged & Heterogeneous Bilateral Ovaries2.3cm Isoechoic Left-sided LesionPossible EndometriomaReasonCommentsRoutine Visit Care Teams (unrecognized sec tion and content) Team Status: Active Member Role Status Dates Zachary Mayes MD Primary Care Provider Active Team Status: Inactive Member Role Status Dates Zachary Mayes MD Primary Care Provider Active Mine Walker ProviderActive Team Status: Inactive Member Role Status Dates Zachary Mayes MD Primary Care Provider Active Start: December 02, 2023 End: December 01enolAdelfo Hutson ProviderActiveStart: December 02, 2023 End: December 02, 2023 Team Status: Inactive Member Role Status Dates Zachary Mayes MD Primary Care Provider Active Start: December 05, 2023 End: December 04Mine Munoz ProviderActiveStart: December 05, 2023 End: December 05, 2023 Team Status: Inactive Member Role Status Dates Zachary Mayes MD Primary Care Provider Active Start: December 07, 2023 End: December 06Mine Munoz ProviderActiveStart: December 07, 2023 End: December 07, 2023 Team Status: Inactive Member Role Status Dates Zachary Mayes MD Primary Care Provider Active Start: December 09, 2023 End: December 084Corey Peggy , DOAttending ProviderActiveStart: December 09, 2023 End: December 09, 2023 Team Status: Inactive Member Role Status Daniel Mayes MD Primary Care Provider Active Start: December 20, 2023 End: December 194Corey Peggy , DOAttending ProviderActiveStart: December 20, 2023 End: December 20, 2023 Team Status: Inactive Member Role Status Daniel Mayes MD Primary Care Provider Active Start: December 22, 2023 End: December 214Corey Peggy , DOAttending ProviderActiveStart: December 22, 2023 End: December 22, 2023 Team Status: Inactive Member Role Status Daniel Mayes MD Primary Care Provider Active Start: December 28, 2023 End: December 274Corey Peggy , DOAttending ProviderActiveStart: December 28, 2023 End: December 28, 2023 Team Status: Inactive Member Role Status Daniel Mayes MD Primary Care Provider Active Start: January 05, 2024 End: January 04orey Peggy , DOAttending ProviderActiveStart: January 05, 2024 End: January 05, 2024Team MemberRelationshipSpecialtyStart DateEnd Date Alberto Mayes MD [address] [place] [address] PCP - Iapnxxl38/19/23 Paloma Vazquez DO [address] [facility] [address] [place] [address] Referring PhysicianObstetrics and Rubxhhxqxl54/12/23Team MemberRelationship SpecialtyStart DateEnd Date Alberto Mayes MD [address] [place] [phone] PCP - Ejpdehk41/19/23 Paloma Vazquez DO [address] [place] [address] Referring PhysicianObstetrics and Ewuidkykkj28/12/23Te MemberRelationship SpecialtyStart [facility] Alberto Mayes MD [address] [place] [phone] [facility]05/02/23 Paloma Vazquez DO [address] [place] [address] Referring PhysicianObstetrics and Upftmioscm37/12/23[facility] MemberRelationship Specialtyart [facility] Alberto Mayes MD [address] [place] [phone] [facility]05/02/23 Paloma Vazquez, DO [address] [place] [address] Referring PhysicianObstetrics and Zlytdhcewh34/12/23[facility] MemberRelationship SpecialtyStart [facility] Alberto Mayes MD [address] [place] [address] [facility]05/02/23 Paloma Vazquez, DO [address] [place] [address] Referring PhysicianObstetrics and Vvgsjinlxd08/12/23[facility] MemberRelationship Specialtyart [facility] Alberto Mayes MD [address] [place] [phone] PCP - Vswimqd95/19/23 Paloma Vazquez DO [address] [place] [address] Referring PhysicianObstetrics and Xbdhyhhovp58/12/23[facility] MemberRelationship SpecialtyStart DateEnd Alberto Mayes MD [address] [place] [address] [facility] - Urtlfii93/19/23 Paloma Vazquez DO [address] [place] [address] Referring PhysicianObstetrics and Rcfmeqwrmu38/12/23[facility] MemberRelationship SpecialtyStart DateEnd Date Alberto Mayes MD [address] [place] [address] [facility] - Npmwfmd82/19/23 Paloma Vazquez DO [address] [place] [address] Referring PhysicianObstetrics and Omlgqgtyjg53/12/23Te MemberRelationship SpecialtyStart DateEnd Date Alberto Mayes MD [address] [place] [address] [facility] - Mgmuvhd21/19/23 Paloma Vazquez DO [address] [place] [address] Referring PhysicianObstetrics and Lzelzixtnb29/12/23[facility] MemberRelationship SpecialtyStart DateEnd Date Alberto Mayes MD [address] [place] [address] PCP - Eahrrne99/19/23 Paloma Vazquez DO [address] [place] [address] Referring PhysicianObstetrics and Hjoswtrhhn24/12/23 Team Status: Inactive Member Role Status Dates Jack Woods DO Attending Provider Active Start : November 05, 2024 End: November 05, 2024Team MemberRelationshipSpecialtyStart DateEnd Date Alberto Mayes MD [address] [place] [address] PCP - Aimpktj06/19/23 Paloma Vazquez DO [address] [place] [address] Referring PhysicianObstetrics and Nmksvbvqxg72/12/23Team MemberRelationship SpecialtyStart DateEnd Date Alberto Mayes MD PCP - Battrfh23/19/23Team MemberRelationshipSpecialtyStart DateEnd Date Alberto Mayes MD PCP - Ltxygig81/19/23Team MemberRelationshipSpecialtyStart DateEnd Date Alberto Mayes MD PCP - Ypgrezx36/19/23Team MemberRelationshipSpecialtyStart DateEnd Date Alberto Mayes MD PCP - Oiadxvl45/19/23Team MemberRelationshipSpecialtyStart DateEnd Date Alberto Mayes MD PCP - Dxefcvb80/19/23Team MemberRelationshipSpecialtyStart DateEnd Date Alberto Mayes MD PCP - Cvezoyy76/19/23Team MemberRelationshipSpecialtyStart DateEnd Date Alberto Mayes MD PCP - Vwyolrf94/19/23Team MemberRelationshipSpecialtyStart DateEnd Date Alberto Mayes MD [facility] - Breojip74/1923Team MemberRelationshipSpecialtyStart DateEnd Date Alberto Mayes MD PCP Dcdvebr44/19/23Team MemberRelationshipSpecialtyStart DateEnd Date Alberto Mayes MD [facility] Idynyoa31/19/23Team MemberRelationshipSpecialtyStart DateEnd Date Alberto Mayes MD [facility] - Tqscvye10/23 Goals (unrecognized section and content) Goals may [...] BE BASED ON THE PRIMARY CLINICAL RECORDS. [facility] [employer] [facility]. provides no warranty or guarantee of the accuracy or completeness of information in this document.
[2025-03-17 14:51] LABS: Hematocrit 29.8 % (36.0-48.0); Hemoglobin 10.0 g/dL (12.0-16.0); Immature Granulocytes Abs Auto 0.19 10^3/uL (0.00-0.03); Immature Granulocytes Pct Auto 1.9 % (0.0-0.5); Lymphocytes Absolute Auto 1.7 10^3/uL (1.2-3.8); Mean Corpuscular HGB Conc 33.6 g/dL (29.9-35.2); Mean Corpuscular Hemoglobin 29.7 pg (26.7-34.0); Mean Corpuscular Volume 88.4 fL (81.0-99.0); Platelet Count 304 10^3/uL (150-450); Red Blood Count 3.37 10^6/uL (4.20-5.40); White Blood Count 10.0 10^3/uL (4.0-11.0)
== END 2025-03-17 14:19 | disposition home or self-care (01) ==
PROVIDERS: PCP Family Medicine; Visit Provider Nurse Practitioner Family
DX: Z34.93 Encounter for supervision of normal pregnancy, unspecified, third trimester (principal)
CPT/HCPCS: 36415; 85025

== ENCOUNTER 2025-03-19 08:58 | Observation (INO) | payer BC, SELFPAY ==
--- OUTSIDE RECORDS SUMMARY | 2025-03-19 09:06 | XMS_ITS | CCD ---
Author Organization [facility] Care Team Providers Care Data Entry Assistant Name Role Phone KEYLA LEYVA Attending Unavailable Unavailable Primary Care Provider Unavailcasimiro Anton Rina Unavailable MD Zachary Mayes Primary Care Provider [phone] DO Paloma Vazquez Attending Provider MD Zachary Mayes Primary Care Provider MD Jackie Reardon Attending Provider [phone] DO Jack Woods Attending Provider Paloma Vazquez DO Unavailable Gerber NO, Alberto Primary Care Provider [phone] Gerber NO, [facility] Provider [phone] Jack Woods DO Attending Provider [phone] Unavailable Primary Care Provider UnavailZachary Tracy [...] Care Provider PEGGY, JACK R Referring Unavailable KAY BENTLEY [...] of OnsetReaction(s) Facility (20 sources)Cephalexin; Translations: [CEPHALEXIN]Drug Jodyjuu15-55-0763Zrmzga [place] (16 sources)predniSONE; Translations: [PREDNISONE]Drug Rmwhblg67-19-1781Xoqybq [place] (20 sources)Ciprofloxacin; Translations: [CIPROFLOXACIN]Drug Avzjzla93-70-4964 Vomiting, GI intoleranceNOSac-[facility] (20 sources)PrednisonePropensity to adverse ehmhbfisg88-07-8367Hhirmn And VomitingCenterPointe Hospital (1 source)CephalexinDrug Nrmgpvw24-79-0545FthahgcjlPremier Health [facility] (1 source)predniSONEDrug Myswcqh31-35-5376LxuzfatttPremier Health [facility] Repository Medications Current Medications MedicationDrug Class(es)DatesSig (Normalized)Sig (Original)aspirin 81 mg oral tablet (20 sources)Platelet Aggregation Inhibitor, Nonsteroidal Anti-inflammatory Drug Start: 21-62-9042vppctvj 81 MG oral suspension 10/14/2023 Activeaspirin 81 mg chewable tablet Chew 1 tablet (81 mg total) and swallow in the morning. Active bisacodyl 10 mg rectal suppository (2 sources)Stimulant LaxativeStart: 10-08-2024 End: 91-15-3401qkfbvjtgb (Dulcolax) 10 MG suppository Indications: Other constipation Insert 1 suppository (10 mg)into the rectum Daily for 4 days 4 suppository 10/08/2024 10/12/2024 Activedocusate sodium 100 mg oral capsule (20 sources) End: 60-90-6975xzoy 1 capsule by mouth once dailydocusate sodium (Colace) 100 MG capsule Take 100 mg by mouth Daily 01/16/2025 DiscontinuedDoxylamine Succinate, Sleep, (UNISOM PO) (20 sources) End: 61-67-5988Veghmjojgs Succinate, Sleep, (UNISOM PO) Take by mouth [...] 0 Activehydrocortisone acetate 25 mg rectal suppository (3 sources)CorticosteroidStart: 03-12-2025 End: 19-64-0829vknbzhpxxmjcrm (Anusol-HC) 25 MG suppository Indications: Hemorrhoids, unspecified hemorrhoid type Insert 1 suppository (25 mg) into the rectum in the morning and 1 suppository (25 mg) before bedtime. 6 suppository 03/12/2025 Activeibuprofen 600 mg oral tablet (10 sources)Nonsteroidal Anti-inflammatory DrugStart: 84-33-1938vdcf 1 tablet by mouth every six hours as needed for painomeprazole 40 mg delayed release oral capsule (20 sources)Proton Pump InhibitorStart: 10-08-2024 End: 46-50-7875btmn 1 capsule by mouth before mealtimeomeprazole (PriLOSEC) [address] capsule Indications: Gastroesophageal Reflux Disease , Heartburn Take 1 capsule (40 mg) by mouth in the morning. Take before meals. Do not crush or chew. 30 capsule 3 10/08/2024 01/16/2025 DiscontinuedStart: 09-19-2024 End: 53-66-8576kelw 1 capsule by mouth before mealtimeomeprazole (PriLOSEC) [address] capsule Indications: Gastroesophageal Reflux Disease , Heartburn Take 1 capsule (20 mg) by mouth in the morning. Take before meals. Do not crush or chew. 30 capsule 3 09/19/2024 10/08/2024 Discontinued (Reorder)ondansetron 4 mg oral tablet (20 sources)Serotonin-3 Receptor AntagonistStart: 22-27-3442epdi 1 tablet by mouth every six hours as needed for nausea and vomitingondansetron (Zofran) 4 MG tablet Indications: Gastroesophageal reflux in ([facility]) , Nausea and vomiting during ([facility]) TAKE 1 TABLET BY MOUTH EVERY 6 HOURS NEEDED FOR NAUSEAAND VOMITING 30 tablet 3 03/10/2025 ActiveStart: 91-76-9250jugq 1 tablet by mouth every six hours as needed for nausea and nausea, then take 1 tablet by mouthevery six hours as needed for nausea and nauseaondansetron (Zofran) 4 MG tablet Indications: Gastroesophageal reflux in ([facility]) , Nausea and vomiting during ([facility]) Take 1 tablet (4 mg) by mouth every 6 (six) hours if needed for nausea or vomiting for up to 30 doses Take 1 tablet by mouth every 6 hours as needed for nausea. 30 tablet 3 11/20/2024 ActiveStart: 61-48-8693ehwy 1 tablet by mouth every six hours as needed for nausea and nausea, then take 1 tablet by mouthevery six hours as needed for nausea and nauseaondansetron (Zofran) 4 MG tablet Indications: Gastroesophageal reflux in ([facility]) , Nausea and vomiting during ([facility]) Take 1 tablet (4 mg) by [...] as needed for nausea or vomiting. ActivePNV 47-lulf-pghjxujuqwcm-dha 29 mg iron-1 mg -350 mg comb pack,tablet DR,capsule DR (2 sources)take 1 tablet by mouth in the morningPNV 90-cvka-mgycohspeuue-dha 29 mg iron-1 mg -350 mg comb pack,tablet DR,capsule DR Take 1 tablet by mouth in the morning. Activepolysaccharide iron complex 391 mg oral capsule (5 sources)Start: 01-07-2025 End: 39-90-6905trgq 1 capsule by mouth once dailyiron polysaccharides (ProFe) 391.3 (180 Fe) MG capsule Indications: Second trimester ([facility]) Take 1 capsule (391.3 mg) by mouth Daily 30 capsule 6 01/07/2025 01/16/2025 DiscontinuedpredniSONE 20 mg oral tablet (1 source)Start: 88-89-9111lono 1 tablet by mouth every twelve hoursprednisone 20 MG 1 tablet Orally BID for 5 Mar, ActivePrenatal Vit w/Ut-Pqqojotut-DR (PNV PO) (20 sources) Vit w/Co-Dwhupyyze-IK (PNV PO) ActiveProgesterone 200 MG suppository (4 sources)Start: 09-05-2024 End: 26-01-8229Syawzhlemtgq 200 MG suppository Indications: History of miscarriage Insert 200 mg into the vagina in the morning and 200 mg before bedtime. Do all this for 15 days. 30 suppository 3 09/05/2024 09/20/2024 Active Start: 02-14-2024 End: 79-73-5165Lvirflbsjlrp 200 MG suppository Indications: History of miscarriage Insert 200 mg into the vagina in the morning and 200 mg before bedtime. 30 suppository 3 02/14/2024 03/15/2024 ActiveStart: 2024 End: 13-03-2041Wddozseouioa 200 MG suppository Indications: History of miscarriage Insert 200 mg into the vagina at bedtime Insert suppository vaginally every night at bedtime until 12 weeks gestation 30 suppository 3 2024 03/07/2024 Activepyridoxine hydrochloride 25 mg oral tablet (20 sources) End: 00-01-6116icym 1 tablet by mouth once dailypyridoxine (Vitamin B-6) 25 MG tablet Take 25 mg by mouth Daily 01/16/2025 DiscontinuedtraMADol hydrochloride 50 mg oral tablet (10 sources)Opioid AgonistStart: 17-55-2990rswm 1 tablet by mouth every four to six hours as needed for pain Completed/Discontinued Medications MedicationDrug Class(es)DatesSig (Normalized)Sig (Original)acetaminophen 325 mg / HYDROcodone bitartrate 5 mg oral tablet (1 source)Opioid AgonistStart: 02-01-2019 End: 24-78-8580YCJNTiykzlw-acetaminophen (NORCO) 5-325 MG per tablet 1 tablet progesterone 200 mg oral capsule (1 source)Progesterone End: 03-53-2842pryk 1 capsule by mouth in the morningprogesterone (PROMETRIUM) 200 mg capsule Take 1 capsule (200 mg total) by mouth in the morning. 11/12/2024 Discontinued Problems Active Problems Problem ClassificationProblemDateDocumented DateEpisodic/ChronicBenign neoplasm of uterus (2 sources)Leiomyoma of uterus, unspecified; Translations: [Leiomyoma of uterus, unspecified]Onset: 03-11-0450BnpvhqnwBalndrf dysrhythmias (2 sources)Postural orthostatic tachycardia syndrome ; Translations: [POTS (postural orthostatic tachycardia syndrome)]35-71-9133HtcsbqkKkqukgc dysrhythmias (12 sources)Palpitations; Translations: [Tachycardia]Onset: EpisodicContraceptive and procreative management (4 sources)Patient encounter status; Translations: [Encounter for procreative management, unspecified]99-12-4609VzaglbctKxkokbiz mellitus without complication (2 sources)Abnormal glucose tolerance test; Translations: [Other abnormal glucose]49-52-4463BlqppfriUnpkth infertility (2 sources)Female infertility; Translations: [Female infertility, unspecified] 85-87-0758QzlyisiOqqqtpnauyp (2 sources)Hemorrhoids; Translations: [Unspecified hemorrhoids]03-12-2025 EpisodicImmunizations and screening for infectious disease (2 sources)Exposure to sexually transmissible disorder; Translations: [Contact with and (suspected) exposure to infections with a predominantly sexual mode of transmission]24-84-3308HiuttdnsKntuvozwp disorders (2 sources)Missed period; Translations: [Irregular menstruation, unspecified] Onset: 803066-50-5786ZjoblykFkokx complications of (5 sources)Gastroesophageal reflux disease in ; Translations: [Diseases of the digestive system complicating , unspecified trimester] 61-77-6944RsvalwtfIwirv complications of (1 source)Vomiting of , unspecified; Translations: [Unspecified vomiting of , unspecified as to episode of care or not applicable] 38-03-6629UcnlweqpDpfoe complications of (3 sources)Uterine fibroids affecting ; Translations: [Maternal care for benign tumor of corpus uteri, second trimester]41-55-5748BmbfmrpxUpoqh complications of (2 sources)Maternal care for benign tumor of corpus uteri, second trimester; Translations: [Maternal care for benign tumor of corpus uteri, second trimester] Onset: 39-10-4789BtigkorbIdnvm complications of (2 sources) size does not accord with dates; Translations: [Uterine size- date discrepancy, unspecified trimester]61-41-5318GshgpcasDqvgc connective tissue disease (4 sources)Pain in right lower limb; Translations: [Pain in right leg]02-26-2025 EpisodicOther endocrine disorders (2 sources)Disorder of endocrine system; Translations: [Endocrine disorder, unspecified]88-41-9913RcrzukpiRvsmu female genital disorders (2 sources)Other specified conditions associated with female genital organs and menstrual cycle; Translations:[Other specified conditions associated with female genital organs and menstrual cycle]Onset: 38-37-4802MuxkywezGrjlm female genital disorders (2 sources)Vaginal discharge; Translations: [Other specified noninflammatory disorders of vagina]86-33-7263WjsexjmbEdcnt gastrointestinal disorders (2 sources)Constipation; Translations: [Other constipation]63-38-7394Gpquraou Other gastrointestinal disorders (4 sources)Mass of uterine adnexa; Translations: [Other specified conditions associated with female genital organs and menstrual cycle]52-30-7741Ocdmqwan Other and delivery including normal (20 sources); Translations: [Encounter for supervision of normal , unspecified, unspecified trimester]72-87-6671XvyikfvhHnvsu screening for suspected conditions (not mental disorders or infectious disease) (1 source)Encounter for other specified screening; Translations: [Encounter for other specified screening]Onset: 96-44-0687Culyamas Other skin disorders (4 sources)Localized swelling of right lower limb; Translations: [Localized swelling, mass and lump, right lower limb]12-90-4476ZxatejwkWsahj skin disorders (2 sources)Localized swelling, mass and lump, right lower limb; Translations: [Localized swelling, mass and lump, right lower limb]Onset: 07-90-5197Jbujjixo Other upper respiratory infections (2 sources)Acute pharyngitis, unspecified; Translations: [Acute upper respiratory infection, unspecified]EpisodicResidual codes; unclassified (2 sources)H/O: miscarriage; Translations: [Personal history of other complications of , childbirth and the puerperium]59-80-2195Ccjkbfed Residual codes; unclassified (2 sources)Gestation period, 11 weeks; Translations: [11 weeks gestation of ]62-22-1399TchghxhaQspxmjhz codes; unclassified (2 sources)Gestation period, 16 weeks; Translations: [16 weeks gestation of ]19-36-1542XvaabjhbUwyxynin codes; unclassified (1 source)16 weeks gestation of ; Translations: [16 weeks gestation of ]Onset: 05-90-6080NihhyegcDbbzmvjl codes; unclassified (2 sources)Gestation period, 15 weeks; Translations: [15 weeks gestation of ]19-32-8597ZtmdkditVdxrtfmj codes; unclassified (2 sources)Gestation period, 19 weeks; Translations: [19 weeks gestation of ]17-75-2348HuotbrbjJxlwieyh codes; unclassified (4 sources)Gestation period, 23 weeks; Translations: [23 weeks gestation of ]75-43-1143MbhmiuniYljevihh codes; unclassified (2 sources)Gestation period, 25 weeks; Translations: [25 weeks gestation of ]45-26-5786JfdffbgfMxhwjbaw codes; unclassified (2 sources)26 weeks gestation of ; Translations: [26 weeks gestation of ]Onset: 82-48-4786AsntdzauPdsbmupy codes; unclassified (2 sources)Gestation period, 27 weeks; Translations: [27 weeks gestation of ]83-82-1911KsimjunoZxhvzcel codes; unclassified (2 sources)Gestation period, 29 weeks; Translations: [29 weeks gestation of ]87-75-0642OixwqriqThlgvlpj codes; unclassified (2 sources)Gestation period, 31 weeks; Translations: [31 weeks gestation of ]69-35-8251OqbbwgvtHibpqvmh codes; unclassified (2 sources)Gestation period, 33 weeks; Translations: [33 weeks gestation of ]78-82-6081EbbouynlOaodepv (4 sources)Syncope; Translations: [Syncope and collapse]Onset: 01-24-2025 14-98-7721BldprbhwOkreabyyykir (1 source)Enlarged & Heterogeneous Bilateral OvariesOnset: 11-12-2024 Past or Other Problems Problem ClassificationProblemDateDocumented DateEpisodic/ChronicAbdominal pain (1 source)Right lower quadrant pain; Translations: [Abdominal pain, right lower quadrant]EpisodicOther complications of (1 source)Supervision of with other poor reproductive or obstetric history, unspecified trimester; Translations: [Supervision of with other poor reproductive or obstetric history, unspecified trimester]Onset: 96-98-3585UmmzrinwLbhyj female genital disorders (1 source)H/O gynecological disorder; Translations: [History of ovarian cyst] EpisodicResidual codes; unclassified (1 source)Personal history of other complications of , childbirth and the puerperium; Translations: [Personal history of other complications of , childbirth and the puerperium]Onset: 15-78-6034Rlouqief Results Test NameValueInterpretationReference RangeFacilityALL CBC WITH AUTO DIFFon 97-81-7019CMVARBFDX ABSOLUTE AUTO0.1NOMS HealthcareBasophils/100 WBC (Bld)0.5 % 0.2 - 2.0 %[facility] HealthcareEosinophils/100 WBC (Bld)0.8 %Low0.9 - 7.0 %[facility] HealthcareErythrocyte distribution width (RBC) [Ratio]12.7 %11.0 - 15.0 %[facility] HealthcareHematocrit (Bld) [Volume fraction]29.8 %Low36.0 - 48.0 %[facility] HealthcareHemoglobin (Bld) [Mass/Vol]10.0 g/dLLow12.0 - 16.0 g/dLNOMS Healthcare IMMATURE GRANULOCYTES ABS AUTO0.19HighNOSac-Osage HospitalImmature granulocytes/100 WBC (Bld)1.9 %High0.0 - 0.5 %[facility] HealthcareInterpretation and review of laboratory resultsAbnormalNOSac-Osage HospitalLYMPHOCYTES ABSOLUTE AUTO1.7NOM[facility] HealthcareLymphocytes/100 WBC (Bld)17.1 %Low20.5 - 60.0 %[facility] WestH (RBC) [Entitic mass]29.7 pg26.7 - 34.0 pgSaint Joseph Hospital WestHC (RBC) [Mass/Vol] 33.6 g/dL29.9 - 35.2 g/dLSaint Joseph Hospital WestV (RBC) [Entitic vol]88.4 fL81.0 - 99.0 fLCenterPointe HospitalMONOCYTES ABSOLUTE AUTO0.8NOMS HealthcareMonocytes/100 WBC (Bld)7.5 %1.7 - 12.0 %[facility]Pointe HospitalNEUTROPHILS ABSOLUTE AUTO7.3HighNOSac-Osage HospitalNeutrophils/100 WBC (Bld)72.2 %43.0 - 75.0 %CenterPointe HospitalPlatelet mean volume (Bld) [Entitic vol]9.7 fL9.5 - 13.5 fLCenterPointe HospitalTBH EO #0.1NOMS [facility] CenterTB GNT405RKXURusk Rehabilitation Center RBC3.37LowNOSac-Osage HospitalTB WBC10.0NOSac-Osage HospitalCLINISYNCNWestern Missouri Mental Health CenterUrinalysis macro (dipstick) panel (U)on 93-26-6713Vykmlnkjb, UANegativeNegative - 4(70) +++ mg/dLCASTLEVIEW HOSPITAL HealthcareBlood, UANegativeNegative - 50 Clarke/mcLNOMD HealthcareClarity, UAClearNOMD Healthcare Color, UAYellowNOMD HealthcareGlucose, UANegativeNegative - 2000(110) ++++ mg/dL [facility] HealthcareInterpretation and review of laboratory resultsAbnormalCASTLEVIEW HOSPITAL HealthcareKetones, UANegativeNegative - 160(16) ++++ mg/dLCenterPointe Hospital Leukocytes, UAPositiveNegative - 500+++ Kamaljit/mcLNOMD HealthcareComment on above: 2+Nitrite, UANegativeNegative - PositiveNOMD HealthcarepH, UA8.05 - 9NOMS HealthcareProtein, UANegativeNegative - 1999(20) ++++ mg/dLNOMS HealthcareSpec Grav, UA1.0101 - 1.03NOMS HealthcareUrobilinogen, UA0.20.2 - 12 mg/dLNOMS HealthcareNOMS HealthcareUS OB FOLLOW UP TRANSABDOMINAL APPROACHon 65-14-5721YZ OB FOLLOW UP TRANSABDOMINAL APPROACHFINDINGS: A single, [...] Delivery: 04/29/25 Gestational Age as of 02/11/2025: 66j5cTeiqdwkkae macro (dipstick) panel (U)on 11-29-1335Vvidqxatf, UANegativeNegative - 4(70) +++ mg/dLNOMS HealthcareBlood, UANegativeNegative - 50 Clarke/mcLNOMS HealthcareClarity, UAClearNOMS Healthcare Color, UAYellowNOMS HealthcareGlucose, UANegativeNegative - 1999(110) ++++ mg/dL [facility] HealthcareInterpretation and review of laboratory resultsAbnormalNOMS HealthcareKetones, UANegativeNegative - 160(16) ++++ mg/dLNOMS Healthcare Leukocytes, UA3+Negative - 500+++ Kamaljit/mcLNOMS HealthcareNitrite, UANegative Negative - PositiveNOMS HealthcarepH, UA6.05 - 9NOMS HealthcareProtein, UA1+ Negative - 2000(20) ++++ mg/dLNOMS HealthcareSpec Grav, UA1.0251 - 1.03NOMS HealthcareUrobilinogen, UA1.00.2 - 12 mg/dLNOMS HealthcareNOMS Healthcare Urinalysis macro (dipstick) panel (U)on 24-64-2018Xycvlurxz, UANegativeNegative - 4(70) +++ mg/dLNOMS HealthcareBlood, UANegativeNegative [...] 12 mg/dLNOMS HealthcareNOMS HealthcareGLUCOSE TOLERANCE 3 HOURon 86-27-7838XVRNAQG TOLERANCE 3 HOURmg/dLNOMS HealthcareComment on above:GLU FAST 83 (<95) Col: 01/29/25 0802 GLU 1HR 163 (<180) Col: 01/29/25 0906 GLU 2HR 140 (<155) Col: 01/29/25 1005 GLU 3HR 121 (<140) Col: 01/29/25 1104 CLINISYNCNOMD HealthcareUrinalysis macro (dipstick) panel (U)on 01-28-2025 Bilirubin, UANegativeNegative - 4(70) +++ mg/dLNOMS HealthcareBlood, UANegative Negative - 50 Clarke/mcLNOMS HealthcareClarity, UAClearNOMS HealthcareColor, UA YellowNOMS HealthcareGlucose, UANegativeNegative - 2000(110) ++++ mg/dLNOMS HealthcareInterpretation and review of laboratory resultsAbnormalNOSac-[facility] Hospital Ketones, UANegativeNegative - 160(16) ++++ mg/dLNOMS HealthcareLeukocytes, UA PositiveNegative - 500+++ Kamaljit/mcLNOMS HealthcareComment on above:3+Nitrite, UA NegativeNegative - PositiveNOMS HealthcarepH, UA6.55 - 9NOMS HealthcareProtein, UANegativeNegative - 2000(20) ++++ mg/dLNOMS HealthcareSpec Grav, UA1.011 - 1.03 NOMS HealthcareUrobilinogen, UA0.20.2 - 12 mg/dLNOMD HealthcareNOMD Healthcare GLUCOSE 1 HOURon 46-25-5747Lkezypw [Mass/Vol]150 mg/dLHighNINF - 130 mg/dLNOMS HealthcareInterpretation and review of laboratory resultsAbnormalCenterPointe Hospital CLINISYNCNOMD HealthcareOffice Visiton 90-42-1203Xookjw-up [id number] Daphney Al 2000 F Date Provider Department Center 01/24/2025 [id number] APODACA [facility] Family History Problem Relation Age of Onset Hypertension Father Family Status - Relation Status Age at Mother Alive Father Alive Level of Service:78674 CO OFFICE/OUTPATIENT NEW LOW MDM 30 MINUTES Reason for Visit and Comments: New Patient [632] - Patient is here today as a new patient to establish care with cariology Syncope [506] Palpitations [137016] 26 weeks [Other][facility] CenterCA ECHO DOPPLER COMPLETEon 19-72-7885Axr[address] [address] Cardiology Report Signed Patient: DAPHNEY AL MR#: [id number] : 2000 Acct:[id number] Age/Sex: 24 / F ADM Date: 01/20/25 Loc: CARD Attending Dr: Jayla Art Ordering Physician: Jayla Art Date of Service: 01/20/25 Procedure(s): CA echo doppler complete Accession Number(s): [id number] cc: Jayla Art; Alberto Mayes M.D. Patient Name: DAPHNEY AL MR#: [id number] : 2000 Exam Date: 01/20/2025 Ordering Doctor: [...] Dictated By: Randy Marie M.D. Signed By: 01/21/25 0959 DD/ TD/TT: Disc Pad Grinder:KELLYHRadiology, Radiologist, - 01/21/2025 [place] [address] Cardiology Report Signed Patient: DAPHNEY AL MR#: [id number] : 2000 Acct:[id number] Age/Sex: 24 / F ADM Date: 01/20/25 Loc: CARD Attending Dr: Jayla Art Ordering Physician: Jayla Art Date of Service: 01/20/25 Procedure(s): CA echo doppler complete Accession Number(s): [id number] cc: Jayla Art; Alberto Mayes M.D. Patient Name: DAPHNEY AL MR#: [id number] : 2000 Exam Date: 01/20/2025 Ordering Doctor: [...] M.D. Signed By: 01/21/25958 DD/ 7 TD/TT: Disc Pad Grinder: [facility]Po[facility] HospitalRadiology Study observation (narrative)[facility] ECHO DOPPLER COMPLETEOrdered By: Radiologist Radiology on 75-65-3151IISWCenterPointe Hospital Work Phone: Urinalysis macro (dipstick) panel (U)on 01-16-2025 Bilirubin, UANegativeNegative - 4(70) +++ mg/dLNOMS HealthcareBlood, UAPositive Negative - 50 Clarke/mcLNOMD HealthcareComment on above:3+Clarity, UAClearNOMD HealthcareColor, UAYellowNOMD HealthcareGlucose, UANegativeNegative - 1999(110) ++++ mg/dLNOMD HealthcareInterpretation and review of laboratory resultsAbnormal CenterPointe HospitalKetones, UANegativeNegative - 160(16) ++++ mg/dLNOMD Healthcare Leukocytes, UAPositiveNegative - 500+++ Kamaljit/mcLNOMS HealthcareComment on above: 2+Nitrite, UANegativeNegative - PositiveNOMS HealthcarepH, UA65 - 9NOMS HealthcareProtein, UAPositiveNegative - 2000(20) ++++ mg/dLNOMD HealthcareSpec Grav, UA1.021 - 1.03NOMS HealthcareUrobilinogen, UA1.00.2 - 12 mg/dLNOMS HealthcareNOMS HealthcareUrinalysis macro (dipstick) panel (U)on 01-07-2025 Bilirubin, UANegativeNegative - 4(70) +++ mg/dLNOMS HealthcareBlood, UANegative Negative - 50 Clarke/mcLNOMS HealthcareClarity, UAClearNOMS HealthcareColor, UA YellowNOMS HealthcareGlucose, UANegativeNegative - 1999(110) ++++ mg/dLNOMS HealthcareInterpretation and review of laboratory resultsAbThe [facility] Healthcare Ketones, UANegativeNegative - 160(16) ++++ mg/dLNOMS HealthcareLeukocytes, UA PositiveNegative - 500+++ Kamaljit/mcLNOMS HealthcareComment on above:3+Nitrite, UA NegativeNegative - PositiveNOMS HealthcarepH, UA6.55 - 9NOMS HealthcareProtein, UANegativeNegative - 1999(20) ++++ mg/dLNOMS HealthcareSpec Grav, UA1.011 - 1.03 N[facility]S HealthcareUrobilinogen, UA0.20.2 - 12 mg/dLNOMS HealthcareNOMD Healthcare Urinalysis macro (dipstick) panel (U)on 34-79-7262Jmoegnrwg, UANegativeNegative - 4(70) +++ mg/dLNOMS HealthcareBlood, UANegativeNegative - 50 Clarke/mcLNOMS HealthcareClarity, UAClearNOMS HealthcareColor, UAYellowNOMS HealthcareGlucose, UANegativeNegative - 1999(110) ++++ mg/dLNOMS HealthcareInterpretation and review of laboratory resultsAbnoKettering Health Hamilton HealthcareKetones, UANegativeNegative - 160(16) ++++ mg/dLNOMS HealthcareLeukocytes, UANegativeNegative - 500+++ Kamaljit/[facility] HospitalNOMD HealthcareNitrite, UANegativeNegative - PositiveNOMS HealthcarepH, UA65 - 9NOMS HealthcareProtein, UANegativeNegative - 2000(20) ++++ mg/dLNOMS HealthcareSpec Grav, UA1.011 - 1.03NOMS HealthcareUrobilinogen, UA1.00.2 - 12 mg/dLNOMS HealthcareNOMD HealthcareUrinalysis macro (dipstick) panel (U)on 63-75-4851Wihiziadr, UANegativeNegative - 4(70) +++ mg/dLNOMS HealthcareBlood, UANegativeNegative - 50 Clarke/mcLNOMS HealthcareClarity, UAClearNOMS Healthcare Color, UAYellowNOMD HealthcareGlucose, UANegativeNegative - 1999(110) ++++ mg/dL [facility] HealthcareInterpretation and review of laboratory resultsAbnormalNOMD HealthcareKetones, UANegativeNegative - 160(16) ++++ mg/dLNOMD Healthcare Leukocytes, UAPositiveNegative - 500+++ Kamaljit/mcLNOMD HealthcareComment on above: SmallNitrite, UANegativeNegative - PositiveNOMD HealthcarepH, UA75 - 9NOMS HealthcareProtein, UANegativeNegative - 2000(20) ++++ mg/dLNOMD HealthcareSpec Grav, UA1.011 - 1.03NOMS HealthcareUrobilinogen, UA1.00.2 - 12 mg/dLNORipley County Memorial Hospital HealthcareFetal Free Cell DNA (Non-[employer] Send Out)on 13-45-6164QhgRrtadt Health SystemPATHOLOGY REQUEST FOR LAB CORPon 11-12-2024 PATHOLOGY REQUEST FOR LAB CORPCASTLEVIEW HOSPITAL HealthcareComment on above:See report. Scanned copy available in EMR.SKIN TAGFIRELANDSCASTLEVIEW HOSPITAL HealthcareIGP,APTIMA HPV,AGE GDLNon 40-87-3760TKF GDLN ACOG TESTINGNote.[facility] HealthcareComment on above: TESTS RESULT FLAG UNITS REF RANGE LAB Clinician Provided Cytology Information Source.............Cervix No. of containers..01 ThinPrep Vial Age Algo ACOG Nery... -12 06 FLAG LEGEND: L-Low Normal,H-High Normal,LL-Alert Low,HH-Alert High <-Panic Low,>-Panic High,A-Abnormal,AA-Critical Abnormal Performed at: 01 =[facility]zaSelect [facility] [place] [address] Gypsy Mtz MD, IGP, RFX APTIMA HPV ASCUNote.NOMS HealthcareComment on above:TESTS RESULT FLAG UNITS REF RANGE LAB DIAGNOSIS: 02 NEGATIVE FOR INTRAEPITHELIAL LESION OR MALIGNANCY. THIS SPECIMEN WAS RESCREENED PART OF OUR REPAIRER GENERAL PROGRAM. Specimen adequacy: 02 Satisfactory for evaluation. Endocervical and/or squamous metaplastic cells (endocervical component) are present. Performed by: 02 Felicity Rosen, Truck Rental Service Attendant (ASCP) QC reviewed by: 02 Esme Mahoney, Truck Rental Service Attendant (ASCP) . 02 Note: Note 02 The [...] <-Panic Low,>-Panic High,A-Abnormal,AA-Critical Abnormal Performed at: [address] [address] Gypsy Mtz MD, Performed at: = - [address] [id number] Advanced Practice Psychiatric Nurse: Gypsy Mtz MD, Phone: [phone] Performed at: - [facility] [id number] Advanced Practice Psychiatric Nurse: Gypsy Mtz MD, Phone: [phone] SPATULA-ALONE CERVIX CLINISYNCNOMS HealthcareRECURRENT VAGINITIS (HTRX)on 70-63-8280OVJFOCNUW VAGINAE 0NOMS HealthcareATOPOBIUM VAGINAENot detectedNOMS HealthcareBVAB 2,3 (BACTERIAL VAGINOSIS ASSOCIATED BACTERIA 2, 3); MOBILUNCUS [id number] HealthcareBVAB 2,3 (BACTERIAL VAGINOSIS ASSOCIATED BACTERIA 2, 3); MOBILUNCUS SPPNot detectedNOMS HealthcareCANDIDA ALBICANS, PARAPSILOSIS, [id number] HealthcareCANDIDA ALBICANS, PARAPSILOSIS, TROPICALISNot detectedNOMS HealthcareCANDIDA GLABRATA0 NOMS HealthcareCANDIDA GLABRATANot detectedNOMS HealthcareCANDIDA UEQOGE7WZAG HealthcareCANDIDA KRUSEINot detectedNOMS HealthcareCHLAMYDIA ZWHGBXRJWQR7NYCQ HealthcareCHLAMYDIA TRACHOMATISNot detectedNOMS HealthcareGARDNERELLA VAGINALIS0 NOMS HealthcareGARDNERELLA VAGINALISNot detectedNOMS HealthcareMEGASPHAERA (TYPES 1, 2)0NOMS HealthcareMEGASPHAERA (TYPES 1, 2)Not detectedNOMS Healthcare MYCOPLASMA XBGUUUQZOT1QXRV HealthcareMYCOPLASMA GENITALIUMNot detectedNOMS HealthcareNEISSERIA LYYMYWQJORC9SJEX HealthcareNEISSERIA GONORRHOEAENot detected NOMS HealthcareTRICHOMONAS KUDVYSGEX0NWIO HealthcareTRICHOMONAS VAGINALISNot detectedNOMS HealthcareNOMS HealthcarePathology Request for Lab Corpon 20-79-6939Rydtpopfu Request for Lab [facility] Comment on above:Order Comment: SKIN TAGResult Comment: See report. Scanned copy available in EMR. PERFORMED BY: [facility] [place] [address] PATHOLOGIST CORROSION PREVENTION METAL SPRAYER JOSUÉ VALENZUELA M.D.Performed By: #### PROG #### [facility] ,Urinalysis macro (dipstick) panel (U)on 16-25-8079Nuntmkgen, UANegativeNegative - 4(70) +++ mg/dLNOMS HealthcareBlood, UANegativeNegative [...] mg/dLNOMS HealthcareNOMS HealthcareUrinalysis macro (dipstick) panel (U)on 87-74-1782Flppapqhi, UANegativeNegative - 4(70) +++ mg/dLNOMS HealthcareBlood, UANegativeNegative - 50 Clarke/mcLNOMS HealthcareClarity, UAClearNOMS Healthcare Color, UAYellowNOMS HealthcareGlucose, UANegativeNegative - 2000(110) ++++ mg/dL NOMS HealthcareInterpretation and review of laboratory resultsAbnormalNOMS HealthcareKetones, UANegativeNegative - 160(16) ++++ mg/dLNOMS Healthcare Leukocytes, UATraceNegative - 500+++ Kamaljit/mcLNOMS HealthcareNitrite, UANegative Negative - PositiveNOMS HealthcarepH, UA65 - 9NOMS HealthcareProtein, UANegative Negative - 2000(20) ++++ mg/dLCASTLEVIEW HOSPITAL HealthcareSpec Grav, UA1.021 - 1.03NOMD HealthcareUrobilinogen, UA0.20.2 - 12 mg/dLSaint Luke's Hospital HealthcareMLR HEMOGLOBIN A1Con 95-18-5522Gpdvxek [Mass/Vol]100 mg/dLCenterPointe HospitalHbA1c (Bld) [Mass fraction]5.1 %4.5 - 6.2 %NOMS HealthcareComment on above:ADA RECOMMENDED LIMIT 4.0 - 6.0 ADA THERAPEUTIC TARGET < 7.0 ACTION SUGGESTED > 7.0 CLINISYNCNOMD HealthcareHCG ( test) Ql (U)on 67-34-5615Frpjgznaqutjaw and review of laboratory resultsAbnormalNOSac-Osage HospitalPreg Test, UrPositive NegativeNOAscension Northeast Wisconsin Mercy Medical CenterUS OB TRANSVAGINALon 76-92-1919GD OB TRANSVAGINALEXAM: US OB TRANSVAGINAL HISTORY: Dating/viability. [...] II, MD, PHD at 22-Sep-2024 08:21:31 PM [facility] TeleradiologyNormalNot AvailableComment on above:Order Comment: US OB TRANSVAGINAL No LMP recorded.Urinalysis macro (dipstick) panel (U)on 77-47-6627Ycfvmaibv, UA NegativeNegative - 4(70) +++ mg/dLNOMS HealthcareBlood, [...] II, MD, PHD at 28-Aug-2024 11:25:24 PM [facility] TeleradiologyNormalNot AvailableComment on above:Order Comment: US OB TRANSVAGINAL No LMP recorded.[facility] PREG QUANT HCGon 32-74-0882XTS TSVFHVQYIYCS0424aWN/mLNOMS HealthcareComment on above:5-50 0.2-1 WEEK 50-500 1-2 WEEKS 100-5,000 2-3 WEEKS 500-10,000 3-4 WEEKS 1,000-50,000 4-5 WEEKS 10,000-100,000 5-6 WEEKS 15,000-200,000 6-8 WEEKS 10,000-100,000 2-3 MONTHS CLINISYNCNOMD HealthcareTB PREG QUANT HCGon 06-61-5223SVM ZIMKDWBAUAWT705jYA/mL [facility] HealthcareComment on above:5-50 0.2-1 WEEK 50-500 1-2 WEEKS 100-5,000 2-3 WEEKS 500-10,000 3-4 WEEKS 1,000-50,000 4-5 WEEKS 10,000-100,000 5-6 WEEKS 15,000-200,000 6-8 WEEKS 10,000-100,000 2-3 MONTHS CLINISYNCNOMD HealthcareTB PREG QUANT HCGon 00-93-1710GVX EXNSIQUTEPMG341pDD/mL NOMS HealthcareComment on above:5-50 0.2-1 WEEK 50-500 1-2 WEEKS 100-5,000 2-3 WEEKS 500-10,000 3-4 WEEKS 1,000-50,000 4-5 WEEKS 10,000-100,000 5-6 WEEKS 15,000-200,000 6-8 WEEKS 10,000-100,000 2-3 [facility] P[facility] QUANT HCGon 41-61-6509IAB NOMEVMXXKXKX162mJN/mL NOMS HealthcareComment on above:5-50 0.2-1 WEEK 50-500 1-2 WEEKS 100-5,000 2-3 WEEKS 500-10,000 3-4 WEEKS 1,000-50,000 4-5 WEEKS 10,000-100,000 5-6 WEEKS 15,000-200,000 6-8 WEEKS 10,000-100,000 2-3 MONTHS [facility] PREG QUANT HCGon 00-58-6014UJF SPIMDWTABAOF84qMC/mL NOMS HealthcareComment on above:5-50 0.2-1 WEEK 50-500 1-2 WEEKS 100-5,000 2-3 WEEKS 500-10,000 3-4 WEEKS 1,000-50,000 4-5 WEEKS 10,000-100,000 5-6 WEEKS 15,000-200,000 6-8 WEEKS 10,000-100,000 2-3 MONTHS [facility] PREG QUANT HCGon 39-25-8031UEN TLFRKXNFYOQP0kSY/mL NOMS HealthcareComment on above:5-50 0.2-1 WEEK 50-500 1-2 WEEKS 100-5,000 2-3 WEEKS 500-10,000 3-4 WEEKS 1,000-50,000 4-5 WEEKS 10,000-100,000 5-6 WEEKS 15,000-200,000 6-8 WEEKS 10,000-100,000 2-3 MONTHS [facility] PROGESTERONEon 52-19-3222SENLEFCDEJVD55.8 ng/mL.NOMS HealthcareComment on above:Follicular phase 0.1 - 0.9 Luteal phase 1.8 - 23.9 Ovulation phase 0.1 - 12.0 First trimester 11.0 - 44.3 Second trimester 25.4 - 83.3 Third trimester 58.7 - 214.0 Postmenopausal 0.0 - 0.1 Performed at: [facility] [email or web address] [id number] Advanced Practice Psychiatric Nurse: Jordin Rao PhD, Phone: [phone] [facility] CLAREINFRARED IMAGING SYSTEMSDCzlienHCA Midwest Division PROGESTERONEon 65-11-4487MTUTREEEUIHK96.6 ng/mL.NOMS HealthcareComment on above:Follicular phase 0.1 - 0.9 Luteal phase 1.8 - 23.9 Ovulation phase 0.1 - 12.0 First trimester 11.0 - 44.3 Second trimester 25.4 - 83.3 Third trimester 58.7 - 214.0 Postmenopausal 0.0 - 0.1 Performed at: [address] [id number] Advanced Practice Psychiatric Nurse: Jordin Rao PhD, Phone: [phone] [facility] CLAREINFRARED IMAGING SYSTEMSClaiborne County Hospital PREG QUANT HCGon 44-03-2692BDZ QUANTITATIVE<1mIU/mL NOMS HealthcareComment on above:5-50 0.2-1 WEEK 50-500 1-2 WEEKS 100-5,000 2-3 WEEKS 500-10,000 3-4 WEEKS 1,000-50,000 4-5 WEEKS 10,000-100,000 5-6 WEEKS 15,000-200,000 6-8 WEEKS 10,000-100,000 2-3 MON[facility]S [facility] PROGESTERONEon 55-53-5470HUBAWJJAFRTV98.9 ng/mL.NOMS HealthcareComment on above:Follicular phase 0.1 - 0.9 Luteal phase 1.8 - 23.9 Ovulation phase 0.1 - 12.0 First trimester 11.0 - 44.3 Second trimester 25.4 - 83.3 Third trimester 58.7 - 214.0 Postmenopausal 0.0 - 0.1 Performed at: [address] [id number] Advanced Practice Psychiatric Nurse: Jordin Rao PhD, Phone: [phone] [facility] CLAREINFRARED IMAGING SYSTEMSSt. Johns & [facility] HEMOGLOBIN A1Con 89-41-3136Erfmwmy [Mass/Vol]88 mg/dLNOSac-Osage HospitalUcawunuhlnVbT2l (Bld) [Mass fraction]4.7 %4.5 - 6.2 %[facility] Comment on above:ADA RECOMMENDED LIMIT 4.0 - 6.0 ADA THERAPEUTIC TARGET < 7.0 ACTION SUGGESTED > 7.0 CLINISYNCNOMS HealthcareChoriogonadotropin.beta subunit [Units/volume] in Serum or PlasmaOrdered By: Jack Woods on 46-28-1322KTH.beta subunit Qn4.96 m[IU]/mL [facility] CenterComment on above:Approximate Approximate hCG Gestational Age Range (mIU/ml) (weeks)0.2-1 5-50 1-2 50-500 2-3 100-5,000 3-4 500-10,000 4-5 1,000-50,000 5-6 10,000-100,000 6-8 15,000-200,000 8-12 10,000-100,000HCG,Quantitativeon 27-21-4373QQT,Quantitative4.96 m[iU]/mLNormal [facility] Physician GroupComment on above:Result Comment: Approximate Approximate hCG Gestational Age Range (mIU/ml) (weeks) 0.2-1 5-50 1-2 50-500 2-3 100-5,000 3-4 500-10,000 4-5 1,000-50,000 5-6 10,000-100,000 6-8 15,000-200,000 8-12 10,000-100,000 PERFORMED BY: [place] [address] PATHOLOGIST CORROSION PREVENTION METAL SPRAYER TO ANAYA M.D.Performed By: #### HCGQNT #### [place] [address] USAChoriogonadotropin.beta subunit [Units/volume] in Serum or PlasmaOrdered By: Jack Woods on 92-93-6719XXB.beta subunit Qn108.32 m[IU]/mL [facility] CenterComment on above:Approximate Approximate hCG Gestational Age Range (mIU/ml) (weeks)0.2-1 5-50 1-2 50-500 2-3 100-5,000 3-4 500-10,000 4-5 1,000-50,000 5-6 10,000-100,000 6-8 15,000-200,000 8-12 10,000-100,000HCG,Quantitativeon 54-61-1994ZTD,Trqgsvsraxnm256.32 m[iU]/mLNormal [facility] Physician GroupComment on above:Result Comment: Approximate Approximate hCG Gestational Age Range (mIU/ml) (weeks) 0.2-1 5-50 1-2 50-500 2-3 100-5,000 3-4 500-10,000 4-5 1,000-50,000 5-6 10,000-100,000 6-8 15,000-200,000 8-12 10,000-100,000 PERFORMED BY: [place] [address] PATHOLOGIST CORROSION PREVENTION METAL SPRAYER TO ANAYA M.D.Performed By: #### HCGQNT #### [address] [address] USAChoriogonadotropin.beta subunit [Units/volume] in Serum or PlasmaOrdered By: Jack Woods on 85-25-9547AEG.beta subunit Cy8642.88 m[IU]/mL [facility] CenterComment on above:Approximate Approximate hCG Gestational Age Range (mIU/ml) (weeks)0.2-1 5-50 1-2 50-500 2-3 100-5,000 3-4 500-10,000 4-5 1,000-50,000 5-6 10,000-100,000 6-8 15,000-200,000 8-12 10,000-100,000HCG,Quantitativeon 45-41-4500QTD,Nxwfquwsellw2726.88 m[iU]/mL NormalThe [facility] Physician GroupComment on above:Result Comment: Approximate Approximate hCG Gestational Age Range (mIU/ml) (weeks) 0.2-1 5-50 1-2 50-500 2-3 100-5,000 3-4 500-10,000 4-5 1,000-50,000 5-6 10,000-100,000 6-8 15,000-200,000 8-12 10,000-100,000 PERFORMED BY: [address] [address] PATHOLOGIST CORROSION PREVENTION METAL SPRAYER TO ANAYA M.D.Performed By: #### HCGQNT #### [facility] [address] [place] [address] USAChoriogonadotropin.beta subunit [Units/volume] in Serum or PlasmaOrdered By: Jack Woods on 77-72-7082YLP.beta subunit Qn988.06 m[IU]/mL [facility] CenterComment on above:Approximate Approximate hCG Gestational Age Range (mIU/ml) (weeks)0.2-1 5-50 1-2 50-500 2-3 100-5,000 3-4 500-10,000 4-5 1,000-50,000 5-6 10,000-100,000 6-8 15,000-200,000 8-12 10,000-100,000HCG,Quantitativeon 90-60-4482DYH,Qmizmdqgfygs563.06 m[iU]/mLNormal [facility] Physician GroupComment on above:Result Comment: Approximate Approximate hCG Gestational Age Range (mIU/ml) (weeks) 0.2-1 5-50 1-2 50-500 2-3 100-5,000 3-4 500-10,000 4-5 1,000-50,000 5-6 10,000-100,000 6-8 15,000-200,000 8-12 10,000-100,000 PERFORMED BY: [place] [address] PATHOLOGIST CORROSION PREVENTION METAL SPRAYER TO ANAYA M.D.Performed By: #### HCGQNT #### [facility] [address] [place] [address] USAUS OB transvaginalon 43-75-6101IR OB transvaginalKETTERING [facility] Main [address] [address] Ultrasound Report Signed Patient: Daphney Al MR#: [id number] : 2000 Acct:[id number] Age/Sex: 23 / F ADM Date: 12/20/23 Loc: Room: [facility] Attending Dr: Jack Woods DO Ordering Provider: Jack Woods Date of Service: 12/20/23 US/US OB <= 14 weeks fetus: N92.6 ([id number]) US/US OB transvaginal: N92.6 Copies to: Jack [...] Lisa Rojas M.D.12/20/2023 5:46 PM Dictation Location: [facility]ITALGreenWizard Tech: Deb Real Transcribed By: FLETCHER 12/20/23 174 Dictated By: Lisa Rojas MD 12/20/23 1739 Signed By: 12/20/23 1746NoNovant Health [facility] Physician GroupChoriogonadotropin.beta subunit [Units/volume] in Serum or PlasmaOrdered By: Jack Woods on 43-73-4967CKC.beta subunit Qn295.86 m[IU]/mLPremier Health Upper Valley Medical CenterComment on above: Approximate Approximate hCG Gestational Age Range (mIU/ml) (weeks)0.2-1 5-50 1-2 50-500 2-3 100-5,000 3-4 500-10,000 4-5 1,000-50,000 5-6 10,000-100,000 6-8 15,000-200,000 8-12 10,000-100,000HCG,Quantitativeon 53-59-8222VCC,Quantitative 295.86 m[iU]/mLNFrye Regional Medical Center [facility] Physician GroupComment on above:Result Comment: Approximate Approximate hCG Gestational Age Range (mIU/ml) (weeks) 0.2-1 5-50 1-2 50-500 2-3 100-5,000 3-4 500-10,000 4-5 1,000-50,000 5-6 10,000-100,000 6-8 15,000-200,000 8-12 10,000-100,000 PERFORMED BY: [place] [address] PATHOLOGIST CORROSION PREVENTION METAL SPRAYER TO ANAYA M.D.Performed By: #### HCGQNT #### [place] [address] USAChoriogonadotropin.beta subunit [Units/volume] in Serum or PlasmaOrdered By: Jack Woods on 59-92-4904HWK.beta subunit Qn135.80 m[IU]/mL [facility] CenterComment on above:Approximate Approximate hCG Gestational Age Range (mIU/ml) (weeks)0.2-1 5-50 1-2 50-500 2-3 100-5,000 3-4 500-10,000 4-5 1,000-50,000 5-6 10,000-100,000 6-8 15,000-200,000 8-12 10,000-100,000HCG,Quantitativeon 11-14-9141MTQ,Clgbrxxwrsme986.80 m[iU]/mLNormal [facility] Physician GroupComment on above:Result Comment: Approximate Approximate hCG Gestational Age Range (mIU/ml) (weeks) 0.2-1 5-50 1-2 50-500 2-3 100-5,000 3-4 500-10,000 4-5 1,000-50,000 5-6 10,000-100,000 6-8 15,000-200,000 8-12 10,000-100,000 PERFORMED BY: [address] [place] [id number] PATHOLOGIST CORROSION PREVENTION METAL SPRAYER TO ANAYA M.D.Performed By: #### HCGQNT #### [place] [address] USAChoriogonadotropin.beta subunit [Units/volume] in Serum or PlasmaOrdered By: ANT Reardon on 08-85-8641CGY.beta subunit Qn69.85 m[IU]/mLPremier Health Upper Valley Medical CenterComment on above:Approximate Approximate hCG Gestational Age Range (mIU/ml) (weeks)0.2-1 5-50 1-2 50-500 2-3 100-5,000 3-4 500-10,000 4-5 1,000-50,000 5-6 10,000-100,000 6-8 15,000-200,000 8-12 10,000-100,000HCG,Quantitativeon 72-17-8391FKU,Sprryxokkuty96.85 m[iU]/mL NormalThe [facility] Physician GroupComment on above:Result Comment: Approximate Approximate hCG Gestational Age Range (mIU/ml) (weeks) 0.2-1 5-50 1-2 50-500 2-3 100-5,000 3-4 500-10,000 4-5 1,000-50,000 5-6 10,000-100,000 6-8 15,000-200,000 8-12 10,000-100,000 PERFORMED BY: [place] [address] PATHOLOGIST CORROSION PREVENTION METAL SPRAYER TO ANAYA M.D.Performed By: #### HCGQNT #### [place] [address] USAProgesteroneon 12-96-3683Ebrddqcgisxw71.5 ng/mLNormal.The [facility] Physician GroupComment on above:Result Comment: Follicular phase 0.1 - 0.9 Luteal phase 1.8 - 23.9 Ovulation phase 0.1 - 12.0 First trimester 11.0 - 44.3 Second trimester 25.4 - 83.3 Third trimester 58.7 - 214.0 Postmenopausal 0.0 - 0.1 Performed at: [employer] [address] [id number] Advanced Practice Psychiatric Nurse: Jordin Rao PhD, Phone: [phone] PERFORMED BY: [place] [address] PATHOLOGIST CORROSION PREVENTION METAL SPRAYER TO ANAYA M.D.Performed By: #### PROG #### [facility] ,Serum or plasma progesterone measurement (mass/volume)Ordered By: Jack Woods on 50-79-5122Wcqtrowzhweo [Mass/Vol]26.5 ng/mL.[facility] Comment on above:Follicular phase 0.1 - 0.9 Luteal phase 1.8 - 23.9 Ovulation phase 0.1 - 12.0 First trimester 11.0 - 44.3 Second trimester 25.4 - 83.3 Third trimester 58.7 - 214.0 Postmenopausal 0.0 - 0.1Performed at: [facility] [address] [id number] Director: Jordin Muhammad, Phone: [phone].beta subunit [Units/volume] in Serum or PlasmaOrdered By: ANT Reardon on 09-45-8616QYQ.beta subunit Qn12.64 m[IU]/mLPremier Health Upper Valley Medical CenterComment on above:Approximate Approximate hCG Gestational Age Range (mIU/ml) (weeks)0.2-1 5-50 1-2 50-500 2-3 100-5,000 3-4 500-10,000 4-5 1,000-50,000 5-6 10,000-100,000 6-8 15,000-200,000 8-12 10,000-100,000HCG,Quantitativeon 60-94-1179CHP,Mbacvgwlkixx43.64 m[iU]/mL NormalThe [facility] Physician GroupComment on above:Result Comment: Approximate Approximate hCG Gestational Age Range (mIU/ml) (weeks) 0.2-1 5-50 1-2 50-500 2-3 100-5,000 3-4 500-10,000 4-5 1,000-50,000 5-6 10,000-100,000 6-8 15,000-200,000 8-12 10,000-100,000 PERFORMED BY: [place] [id number] PATHOLOGIST CORROSION PREVENTION METAL SPRAYER TO ANAYA M.D.Performed By: #### HCGQNT #### [address] [address] USAOperative Reporton 26-62-5554Dpgrsroop Report [id number]#[id number] Medical CenterQuick Strepon 03-21-2023S. pyogenes Org specific cx Ql (Throat)Negative [facility] [place] Spirits Other Quick StrepCascade Medical Center [place] Spirits Other [facility] Auto Differentialon 55-49-1281Iazubciwm (Bld) [#/Vol]0.00 10*3/[place]badWiTric[place] [facility] [place], KYBasophils/100 WBC (Bld)0 %0 - 2 %[facility], KYDifferential TypeYEGeorgetown Behavioral Hospital [place], KYEosinophils (Bld) [#/Vol] 0.20 10*3/uLMerWiTricity [facility]- [place], KYEosinophils/100 WBC (Bld)2 %0 - 5 %[facility]- [place], KYErythrocyte distribution width (RBC) [Ratio]12.6 %12.1 - 15.2 %[facility]- [place], USHAHematocrit (Bld) [Volume fraction]39.8 %36 - 46 %[facility]- [place], USHAHemoglobin (Bld) [Mass/Vol]13.8 g/dL12 - 16 g/dLCleveland Clinic Children'[facility]- [place], USHA Interpretation and review of laboratory resultsAbnormalCleveland Clinic [facility]- [place], [place] Lymphocytes (Bld) [#/Vol]1.70 10*3/[facility]- [place], USHALymphocytes/100 WBC (Bld)14 %Low15 - 40 %[facility]- [place], USHAMCH (RBC) [Entitic mass]31.5 pg26 - 34 pgCleveland Clinic Children'S Hospital [facility]- [place], USHAMCHC (RBC) [Mass/Vol]34.6 g/dL31 - 37 g/dLCleveland Clinic [facility]- [place], USHAMCV (RBC) [Entitic vol]91.2 fL80 - 100 [facility]- [place], KYMonocytes (Bld) [#/Vol]0.60 10*3/[facility]- [place], USHAMonocytes/100 WBC (Bld)5 %4 - 8 % [facility]- [place], USHAPlatelet mean volume (Bld) [Entitic vol]NOT REPORTED6 - 12 fLCleveland Clinic Children'S [facility]- [place], KYPlatelets (Bld) [#/Vol]NOT REPORTEDCleveland Clinic [facility]- [place], USHA Platelets (Bld) [#/Vol]287 10*3/[facility]- [place], KYRBC (Bld) [#/Vol]4.37 10*6/uL4 - 5.2 m/[facility]- [place], KYRBC morphology finding Nom (Bld)NOT REPORTEDCleveland Clinic [facility]- [place], USHASegmented neutrophils/100 WBC (Bld)79 %High47 - 75 % [facility]- [place], KYSegs Absolute9.50HighCleveland Clinic [facility]- [place], KYWBC (Bld) [#/Vol] 12.0 10*3/[facility]- [place], KYWBC (Bld) [#/Vol]NOT REPORTEDper 100 WBCCleveland Clinic [facility]- [place], KYWBC MorphologyNOT REPORTEDMercy Health- [place], KYCBC with Diffon 32-43-2839Kbh. Basophil0.00 k/uLNormal0.0-0.2MCity HospitalComment on above:Performed By: #### CP, CDP #### [facility] [address] [place] [id number] Advanced Practice Psychiatric Nurse: José Higgins.Neutrophil (Seg)9.50 k/uLHigh2.5-7.0[facility] CenterComment on above:Performed By: #### CP, CDP #### [facility] [address] [id number] Advanced Practice Psychiatric Nurse: Maya Higgins Diff PerformedYESNormalUniversity Hospitals Cleveland Medical CenterComment on above:Performed By: #### CP, CDP #### [facility] [address] [id number] Advanced Practice Psychiatric Nurse: Jonathan Chisholm MDBasophils/100 WBC (Bld)0 %Normal0-2MCity HospitalComment on above:Performed By: #### CP, CDP #### [facility] [address] [place] [id number] Advanced Practice Psychiatric Nurse: Jonathan Chisholm MDEosinophils (Bld) [#/Vol]0.20 10*3/uLNormal 0.0-0.4[facility] Medical CenterComhavenwyck hospital on above:Performed By: #### CP, CDP #### [facility] [address] [id number] Advanced Practice Psychiatric Nurse: CHRISTINE Higginsosinophils/100 WBC (Bld)2 %Normal0-5[facility] on above:Performed By: #### CP, CDP #### [facility] [address] [id number] Advanced Practice Psychiatric Nurse: Jonathan Chisholm MDErythrocyte distribution width (RBC) [Ratio]12.6 %Vyozqw26.1-15.2MCity HospitalComment on above:Performed By: #### CP, CDP #### [facility] [address] [place] [address] Advanced Practice Psychiatric Nurse: Jonathan Chisholm MDHematocrit (Bld) [Volume fraction]39.8 %Normal 36-46[facility] CenterComment on above:Performed By: #### CP, CDP #### [facility] [address] [id number] Advanced Practice Psychiatric Nurse: Jonathan Chisholm MDHemoglobin (Bld) [Mass/Vol]13.8 g/dLNormal 12.0-16.0[facility] CenterComhavenwyck hospital on above:Performed By: #### CP, CDP #### [facility] [address] [id number] Advanced Practice Psychiatric Nurse: Jonathan Chisholm MDLymphocytes (Bld) [#/Vol]1.70 10*3/uLNormal 1.2-5.2MCity HospitalComhavenwyck hospital on above:Performed By: #### CP, CDP #### [facility] [address] [place] [address] Advanced Practice Psychiatric Nurse: Jamie Higginsmphocytes/100 WBC (Bld)14 %Fvg68-91ZlwdcUniversity Hospitals Cleveland Medical CenterComhavenwyck hospital on above:Performed By: #### CP, CDP #### [facility] [address] [id number] Advanced Practice Psychiatric Nurse: MEETA HigginsCH (RBC) [Entitic mass]31.5 pkKhnktk20-01Xtjjp Willard HospitalComment on above:Performed By: #### CP, CDP #### [facility] [address] [place] [address] Advanced Practice Psychiatric Nurse: AWA HigginsC (RBC) [Mass/Vol]34.6 g/fFPeypfy34-49KilqkUniversity Hospitals Cleveland Medical CenterComment on above:Performed By: #### CP, CDP #### [facility] [address] [place] [address] Advanced Practice Psychiatric Nurse: MEETA HigginsCV (RBC) [Entitic vol]91.2 bUPoosxg32-777KwpqgUniversity Hospitals Cleveland Medical CenterComhavenwyck hospital on above:Performed By: #### CP, CDP #### [facility] [address] [place] [address] Advanced Practice Psychiatric Nurse: MEETA Higginsonocytes (Bld) [#/Vol]0.60 10*3/uLNormal0.0-1.0 [facility] CenterComment on above:Performed By: #### CP, CDP #### [facility] [address] [place] [address] Advanced Practice Psychiatric Nurse: MEETA Higginsonocytes/100 WBC (Bld)5 %Normal4-8[facility] Cleveland Medical CenterComment on above:Performed By: #### CP, CDP #### [facility] [address] [place] [address] Advanced Practice Psychiatric Nurse: Zachary Higginsophil (Seg)79 %Seuc64-06PsozpUniversity Hospitals Cleveland Medical CenterComment on above:Performed By: #### CP, CDP #### [facility] [address] [place] [address] Advanced Practice Psychiatric Nurse: GAGE Higginslatelets (Bld) [#/Vol]287 10*3/bCHzyfwg502-357 [facility] CenterComhavenwyck hospital on above:Performed By: #### CP, CDP #### [facility] [address] [place] [address] Advanced Practice Psychiatric Nurse: SONJA HigginsBC (Bld) [#/Vol]4.37 10*6/uLNormal4.0-5.2MCity HospitalComment on above:Performed By: #### CP, CDP #### [facility] [address] [place], [place] [id number] Advanced Practice Psychiatric Nurse: REED HigginsBC (Bld) [#/Vol]12.0 10*3/uLNormal4.5-13.5[facility] HospitalComment on above:Performed By: #### CP, CDP #### [facility] [address] [place] [id number] Advanced Practice Psychiatric Nurse: José Higgins.Imm.GranulocyteNOT REPORTEDNormal0.00-0.[address] [facility] HospitalComment on above:Performed By: #### CP, CDP #### [facility] [address] [place] [address] Advanced Practice Psychiatric Nurse: Luciana Higginsmature granulocytes (Bld) [#/Vol]NOT REPORTED Kpwkyh0XypttMercy Health St. [facility] HospitalComment on above:Performed By: #### CP, CDP #### [facility] [address] [place] [address] Advanced Practice Psychiatric Nurse: NAHID Higgins AutomatedNOT REPORTEDNormalUniversity Hospitals Cleveland Medical CenterComment on above:Performed By: #### CP, CDP #### [facility] [address] [place] [phone] Advanced Practice Psychiatric Nurse: Ynes Higginsteserena mean volume (Bld) [Entitic vol]NOT REPORTEDNormal6.0-12.0[facility] HospitalComment on above:Performed By: #### CP, CDP #### [facility] [address] [place] [phone] Advanced Practice Psychiatric Nurse: Ynes Higginstelets (Bld) [#/Vol]NOT REPORTEDNormalMercy Health St. [facility] HospitalComment on above:Performed By: #### CP, CDP #### [facility] [address] [place], [place] [id number] Advanced Practice Psychiatric Nurse: COURT Higgins morphology finding Nom (Bld)NOT REPORTED NormalMercy Health St. [facility] HospitalComment on above:Performed By: #### CP, CDP #### [facility] [address] [place] [address] Advanced Practice Psychiatric Nurse: REED Higgins MorphologyNOT REPORTEDNoParkview Health on above:Performed By: #### CP, CDP #### [facility] [address] [place] [address] Advanced Practice Psychiatric Nurse: HODAN [facility]ginshuntsman mental [facility] Metabolic Profon 02-01-2019(cont.)Normal [facility] on above:Result Comment: Average GFR for 20-29 years old: 116 mL/min/1.73sq m Chronic Kidney Disease: <60 mL/min/1.73sq m Kidney failure: <15 mL/min/1.73sq m eGFR calculated using average adult body mass. Additional eGFR calculator available at: http://www.[employer]/multiple_crcl_2012.htmPerformed By: #### CP, CDP #### [facility] [address] [place] [address] Advanced Practice Psychiatric Nurse: Jonathan Chisholm MDAlbumin [Mass/Vol]4.1 g/dLNormal3.5-5.2MAdena Fayette Medical Center on above:Performed By: #### CP, CDP #### [facility] [address] [place] [address] Advanced Practice Psychiatric Nurse: Hector Higginsline Phos63 U/DJjytdn90-455ChqsuAshtabula County Medical Center on above:Performed By: #### CP, CDP #### [facility] [address] [place] [address] Advanced Practice Psychiatric Nurse: Jonathan Chisholm MDALT [Catalytic activity/Vol]8 U/LNormal5-33[facility] on above:Performed By: #### CP, CDP #### [facility] [address] [place] [address] Advanced Practice Psychiatric Nurse: Jonathan Phan, MDAnion gap [Moles/Vol]12 mmol/LNormal9-17[facility] CenterComment on above:Performed By: #### CP, CDP #### [facility] [address] [place], [place] [id number] Advanced Practice Psychiatric Nurse: Jonathan Chisholm MDAST [Catalytic activity/Vol]13 U/LNormal<32MerHospital for Special SurgeryComment on above:Performed By: #### CP, CDP #### [facility] [address] [place] [phone] Advanced Practice Psychiatric Nurse: Jonathan Chisholm MDBilirubin Ql (U)0.40 mg/dLNormal0.30-1.20[facility] Medical CenterComment on above:Performed By: #### CP, CDP #### [facility] [address] [place] [address] Advanced Practice Psychiatric Nurse: Jonathan Chisholm MDBUN/CRE Xarjo95Xmxlko5-67[facility] Comment on above:Performed By: #### CP, CDP #### [facility] [address] [place] [address] Advanced Practice Psychiatric Nurse: HODAN Higginsalcium [Mass/Vol]9.1 mg/dLNormal8.6-10.4[facility] Medical CenterComment on above:Performed By: #### CP, CDP #### [facility] [address] [place] [address] Advanced Practice Psychiatric Nurse: HODAN Higginshloride [Moles/Vol]103 mmol/PJaewtv97-051OypswUniversity Hospitals Cleveland Medical CenterComment on above:Performed By: #### CP, CDP #### [facility] [address] [place], [place] [phone] Advanced Practice Psychiatric Nurse: HODAN HigginsO2 [Moles/Vol]24 mmol/LSuvfzy39-74MhxgoUniversity Hospitals Cleveland Medical CenterComment on above:Performed By: #### CP, CDP #### [facility] [address] [place], [place] [phone] Advanced Practice Psychiatric Nurse: HODAN Higginsreatinine [Mass/Vol]0.61 mg/dLNormal0.50-0.90 [facility] CenterComment on above:Performed By: #### CP, CDP #### [facility] [address] [place], [place] [id number] Advanced Practice Psychiatric Nurse: Jonathan Chisholm MDGFR, Amer>60Normal>60[facility] HospitalComment on above:Performed By: #### CP, CDP #### [facility] [address] [place] [phone] Advanced Practice Psychiatric Nurse: Jonathan Chisholm MDGFR,non Amer>60Normal>60[facility] HospitalComment on above:Performed By: #### CP, CDP #### [facility] [address] [place] [phone] Advanced Practice Psychiatric Nurse: Jonathan Chisholm MDGlucose [Mass/Vol]94 mg/yAAdkhmi56-70CfdbaCity HospitalComment on above:Performed By: #### CP, CDP #### [facility] [address] [place] [phone] Advanced Practice Psychiatric Nurse: Jonathan Chisholm MDPotassium [Moles/Vol]3.8 mmol/LNormal3.7-5.3MMiddletown Hospital HospitalComment on above:Performed By: #### CP, CDP #### [facility] [address] [place] [address] Advanced Practice Psychiatric Nurse: Jonathan Chisholm, MDProtein [Mass/Vol]7.1 g/dLNormal6.4-8.3Mohiohealth pickerington methodist hospitaly Federal Way HospitalComment on above:Performed By: #### CP, CDP #### [facility] [address] [place], [place] [phone] Advanced Practice Psychiatric Nurse: Jonathan Chisholm MDSodium [Moles/Vol]139 mmol/JBbwomj306-572OufivUniversity Hospitals Cleveland Medical CenterComment on above:Performed By: #### CP, CDP #### [facility] [address] [place] [address] Advanced Practice Psychiatric Nurse: Jonathan Chisholm MDUrea nitrogen [Mass/Vol]8 mg/dLNormal6-20[facility] CenterComment on above:Performed By: #### CP, CDP #### [facility] [address] [place] [address] Advanced Practice Psychiatric Nurse: Jonathan Chisholm MDAlbumin/Globulin [Mass ratio]NOT REPORTEDNormal 1.0-2.5[facility] Medical CenterComment on above:Performed By: #### CP, CDP #### [facility] [address] [place] [address] Advanced Practice Psychiatric Nurse: KARLENE Higginstaging:NOT REPORTEDNormalUniversity Hospitals Cleveland Medical Center Comment on above:Performed By: #### CP, CDP #### [facility] [address] [place] [address] Advanced Practice Psychiatric Nurse: HODAN Higginsomprehensive Metabolic Panelon [id number] [Mass/Vol]4.1 g/dL3.5 - 5.2 g/dLCleveland Clinic Children'S [facility]- [place], KYAlbumin/Globulin [Mass ratio]NOT REPORTEDCleveland Clinic Children'S [facility]- [place], KYALP [Catalytic activity/Vol]63 U/L35 - 104 U/LMohiohealth pickerington methodist hospitaly Health- [place], KYALT [Catalytic activity/Vol]8 U/L5 - 33 U/LMohiohealth pickerington methodist hospitaly [facility]- [place], KYAnion gap [Moles/Vol]12 mmol/L9 - 17 mmol/LMercy Health- [place], KYAST [Catalytic activity/Vol]13 U/L<32[facility]- [place], KYBilirubin Ql (U)0.40 mg/dL 0.3 - 1.2 mg/dLSalem City Hospitalcy Health- [place], KYBun/Cre Uxksi20Dwyfp Health- [place], KYCalcium [Mass/Vol]9.1 mg/dL8.6 - 10.4 mg/dLMercy [facility]- [place], KYChloride [Moles/Vol]103 mmol/L98 - 107 mmol/[facility], KYCO2 [Moles/Vol]24 mmol/L20 - 31 mmol/L [facility], KYCreatinine [Mass/Vol]0.61 mg/dL0.5 - 0.9 mg/dLBlanchard Valley Health [facility], KYGFR >60>60 mL/minBlanchard Valley Health [facility], KYGFR Non->60>60 mL/minBlanchard Valley Health System [facility], KYGFR/1.73 sq M predicted among non- blacks MDRD (S/P/Bld) [Vol rate/Area]NOT REPORTEDBlanchard Valley Health [facility], KYGFR/1.73 sq M predicted among non-blacks MDRD (S/P/Bld) [Vol rate/Area][facility], [place] Comment on above:Average GFR for 20-29 years old: 116 mL/min/1.73sq m Chronic Kidney Disease: <60 mL/min/1.73sq m Kidney failure: <15 mL/min/1.73sq m eGFR calculated using average adult body mass. Additional eGFR calculator available at: http://www.[employer]/multiple_crcl_2012.htm Glucose [Mass/Vol]94 mg/dL70 - 99 mg/dLBlanchard Valley Health [facility], KYPotassium [Moles/Vol] 3.8 mmol/L3.7 - 5.3 mmol/[facility], KYProtein [Mass/Vol]7.1 g/dL6.4 - 8.3 g/dLBlanchard Valley [facility], KYSodium [Moles/Vol]139 mmol/L135 - 144 mmol/[facility], KYUrea nitrogen [Mass/Vol]8 mg/dL6 - 20 mg/dLBlanchard Valley [facility], [place] HCG, ,Urineon [id number] HCG ( test) Ql (U)NegativeNormal NEGUniversity Hospitals Cleveland Medical CenterComment on above:Performed By: #### [facility] #### [facility] [address] [place] [address] Advanced Practice Psychiatric Nurse: Jonathan Chisholm, MDMicroscopic Urinalysison [id number], UA NOT REPORTEDNoneMercy Health- [place], KYBacteria, UA3+AbnormalNoneMercy [...] (Bld) [#/Vol]NOT REPORTEDMercy Health- [place], KYPregnancy, Urineon [id number] HCG ( test) Ql (U)NegativeNEGATIVEMercy Health- [place], KYUrinalysison [id number] UrineNegativeNEGATIVEMercy Health- [place], [place] Color, UAYELLOWYELLOWMercy Health- [place], KYGlucose, UrNegativeNEGATIVEMercy Health- [place], KYInterpretation and review of laboratory resultsAbnormalMercy Health- [place], KYKetones Ql (U)TRACEAbnormalNEGATIVEMercy Health- [place], KYLeukocyte esterase Test strip Ql (U)NegativeNEGATIVEMercy Health- [place], KYNitrite, Urine NegativeNEGATIVEMercy Health- [place], KYpH, UA6.0[facility]- [place], KYProtein (U) [Mass/Vol]1+AbnormalNEGATIVEMercy Health- [place], KYSpecific [place], UA1.020[facility]- [place], KYTurbidity UACLEARCLEARMercy Health- [place], KYUrinalysis CommentsMercy Health- [place], KYUrine Hgb3+AbnormalNEGATIVEMercy Health- [place], KYUrobilinogen, UrineNormalNormalMercy Health- [place], KYUrinalysis, Routineon [id number] Acid,UrTRACEAbnormalNEGUniversity Hospitals Cleveland Medical CenterComhavenwyck hospital on above:Performed By: #### [facility], UA #### [facility] [address] [place] [address] Advanced Practice Psychiatric Nurse: Jonathan Chisholm MDBilirubin, SemiQt,UrNegativeNormalNEGUniversity Hospitals Cleveland Medical CenterComhavenwyck hospital on above:Performed By: #### [facility], UA #### [facility] [address] [place] [address] Advanced Practice Psychiatric Nurse: HODAN Higginsolor (U)YELLOWNoAvita Health System [facility] Comment on above:Performed By: #### [facility], UA #### [facility] [address] [place] [address] Advanced Practice Psychiatric Nurse: HODAN HigginsommentNoParkview Health on above:Performed By: #### [facility] #### [facility] [address] [place] [address] Advanced Practice Psychiatric Nurse: Jonathan Chisholm MDGlucose Ql (U)NegativeNormalParkwood Hospital on above:Performed By: #### [facility], [facility]A #### [facility] [address] [place] [address] Advanced Practice Psychiatric Nurse: Jonathan Chisholm MDHemoglobin, Ur3+AbnormalPike Community Hospital Comment on above:Performed By: #### [facility], UA #### [facility] [address] [place] [address] Advanced Practice Psychiatric Nurse: Jonathan Chisholm MDLeukocyte esterase Test strip Ql (U)Negative NormalNEGUniversity Hospitals Cleveland Medical CenterComhavenwyck hospital on above:Performed By: #### [facility], UA #### [facility] [address] [place] [address] Advanced Practice Psychiatric Nurse: Elizabeth Higgins,UrNegativeNormKettering Health Main Campus Comment on above:Performed By: #### [facility], [facility]A #### [facility] [address] [place] [address] Advanced Practice Psychiatric Nurse: Jonathan Chisholm [facility] (U)6.0 [pH]Normal5.0-8.0[facility] Comment on above:Performed By: #### [facility], [facility]A #### [facility] [address] [place] [address] Advanced Practice Psychiatric Nurse: GAGE Higginsdeborah heart and lung center Ql (U)1+AbnormalPike Community Hospital Comment on above:Performed By: #### [facility], UA #### [facility] [address] [place] [address] Advanced Practice Psychiatric Nurse: KARLENE Higginspecific gravity (U) [Rel density]1.020Normal 1.005-1.030[facility] Medical CenterComment on above:Performed By: #### [facility], UA #### [facility] [address] [place] [address] Advanced Practice Psychiatric Nurse: ALFREDO HigginsurbidityCLEARNormalCKindred Healthcare Comment on above:Performed By: #### [facility], UA #### [facility] [address] [place] [address] Advanced Practice Psychiatric Nurse: Ruben Higginsbilinogen,UrNormalNormalNorwalk Memorial HospitalComment on above:Performed By: #### [facility], UA #### [facility] [address] [place] [address] Advanced Practice Psychiatric Nurse: Jonathan Chisholm MDUrinalysis,Microon 02-01-2019-----NormalMercy Federal Way HospitalComment on above:Performed By: #### [facility], UA #### [facility] [address] [place] [address] Advanced Practice Psychiatric Nurse: Jonathan Chisholm MDBacteria LM.HPF (Urine sed) [#/Area]3+Abnormal NONEMerMercy Health Allen Hospital HospitalComment on above:Performed By: #### [facility], UA #### [facility] [address] [place] [address] Advanced Practice Psychiatric Nurse: Jonathan Chisholm MDEpithelial cells LM.HPF (Urine sed) [#/Area]20 TO 50NormalMerMercy Health Allen Hospital HospitalComment on above:Performed By: #### [facility], UA #### [facility] [address] [place] [address] Advanced Practice Psychiatric Nurse: MEETA Higginsucus Strands2+AbnormalNONFisher-Titus Medical Center Comment on above:Performed By: #### [facility], UA #### [facility] [address] [place] [address] Advanced Practice Psychiatric Nurse: SONJA HigginsBC (U) [#/Vol]2 TO 4Afxqim4-6Rzike [facility] Way HospitalComment on above:Performed By: #### [facility], UA #### [facility] [address] [place] [address] Advanced Practice Psychiatric Nurse: Jonathan Chisholm MDWBC (U) [#/Vol]2 TO 9Yeaypt8Mshim [facility] Way HospitalComment on above:Performed By: #### [facility], UA #### [facility] [address] [place] [address] Advanced Practice Psychiatric Nurse: Jonathan Chisholm MDAmorphous sediment LM Ql (Urine sed)NOT REPORTED NormalNONEMeWilson Health HospitalComment on above:Performed By: #### [facility], [facility] #### [facility] [address] [place] [address] Advanced Practice Psychiatric Nurse: HODAN Higginsasts LM.LPF (Urine sed) [#/Area]NOT REPORTED NormalMercy Federal Way HospitalComment on above:Performed By: #### [facility], [facility] #### [facility] [address] [place] [address] Advanced Practice Psychiatric Nurse: HODAN Higginsrystals LM Nom (Urine sed)NOT REPORTEDNormalNONE [facility] HospitalComment on above:Performed By: #### [facility], UA #### [facility] [address] [place] [address] Advanced Practice Psychiatric Nurse: Jonathan Chisholm MDEpithelial, RenalNOT NPLKZCHHLrqgwp7Cboig [facility] Way HospitalComment on above:Performed By: #### [facility], UA #### [facility] [address] [place], [place] [id number] Advanced Practice Psychiatric Nurse: Jonathan Chisholm MDOther ObservationsNOT REPORTEDNormalNREQMercy Health St. [facility] HospitalComment on above:Performed By: #### [facility], UA #### [facility] [address] [place], [place] [id number] Advanced Practice Psychiatric Nurse: Jonathan Chisholm MDTrichomonasNOT REPORTEDNormalNONEMeWilson Health HospitalComment on above:Performed By: #### [facility], [facility] #### [facility] [address] [place] [address] Advanced Practice Psychiatric Nurse: Jonathan Chisholm MDYeast LM Ql (Urine sed)NOT REPORTEDNormalNONE [facility] HospitalComment on above:Performed By: #### [facility], [facility] #### [facility] [address] [place] [address] Advanced Practice Psychiatric Nurse: Jonathan Chisholm MD Vital Signs Date TimeVital SignValuePerforming XmwwsnvcnTnouansh90-02-4177 14:49-0400Body mass index (BMI) [Ratio]30.55 kg/f7DwvzixhyHazel Romero FINISH MOLDER Work Phone: [phone]10-29-2025 14:49-0400Body qnimef58.84 kgKrdayton Peraltaly FINISH MOLDER Work Phone: [phone] [place], [place] [address]Yrbfmzliwx12-51-1163 14:49-0400Diastolic blood qxctisxp06 mm[Hg]Hazel Heather FINISH MOLDER Work Phone: [phone] [place], [place] [address]Jpdbppgtjt73-92-6889 14:49-0400Systolic blood chincxik704 mm[Hg]Hazel Heather FINISH MOLDER Work Phone: [phone])[address] [place], [place] 4104410-14-2025 14:14-0400Body mass index (BMI) [Ratio]30.67 kg/z2Ikkqp Peggy DO Work Phone: [phone])[address] [place], [place] 4104410-14-2025 14:14-0400Body arukis23.18 kgCorey Peggy DO Work Phone: [phone])[address] [place], [place] 4104410-14-2025 14:14-0400Diastolic blood vzrfgwul78 mm[Hg]Jack Peggy DO Work Phone: [phone])[address] [place], [place] 4104410-14-2025 14:14-0400Systolic blood gbeqmeer069 mm[Hg]Jack Peggy DO Work Phone: [phone])[address] [place], [place] 4104409-30-2025 09:59-0400Body mass index (BMI) [Ratio]30.18 kg/k0VczcnmdqHazel Sanchezerly FINISH MOLDER Work Phone: 1(822)[address] [place], [place] 4104409-30-2025 09:59-0400Body .82 kgKrvenancioa Heather FINISH MOLDER Work Phone: [phone] [place], [place] [address]Ehrkywthzi27-24-8367 09:59-0400Diastolic blood ybjamfve25 mm[Hg]Hazel Heather FINISH MOLDER Work Phone: [facility] HospitalHqtsujoiic37-24-5557 09:59-0400Systolic blood nkdzoyil461 mm[Hg]Hazel Heather PURCELL Work Phone: [facility] HospitalBdxlyabqqy37-53-7749 08:54-0400Body mass index (BMI) [Ratio]30.22 kg/m2Jayla DA SILVA Work Phone: [facility] HospitalLodzrxqfio91-66-7033 08:54-0400Body jvebtu28.94 kgJayla DA SILVA Work Phone: [facility] HospitalEqryfbfqwn55-93-7213 08:54-0400Diastolic blood txpbhivb85 mm[Hg]Jayla DA SILVA Work Phone: [facility] HospitalBiedzsddny26-22-4833 08:54-0400Systolic blood inkgtdcq984 mm[Hg]Jayla DA SILVA Work Phone: [facility] HospitalCxfuytidly22-74-8019 09:38-0400Body mass index (BMI) [Ratio]29.67 kg/s6Ahkul Peggy DO Work Phone: [facility] HospitalUubarylfxl47-32-3877 09:38-0400Body qbekcz11.37 kgCorey Peggy DO Work Phone: [facility] HospitalWdwsfjjdke70-49-4649 09:38-0400Diastolic blood otefhgxa32 mm[Hg]Jack Peggy DO Work Phone: [facility] HospitalHxydhliato08-12-2062 09:38-0400Systolic blood mjewswww574 mm[Hg]Jack Peggy DO Work Phone: [facility] HospitalLodgbwvxiu73-84-9131 14:30-0400Body mass index (BMI) [Ratio]29.83 kg/u8Dejnf Peggy DO Work Phone: [facility] HospitalOpicozbxsz15-59-2493 14:30-0400Body vixiqa72.83 kgCorey Peggy DO Work Phone: [place] [address]Xvjtlnbpjh26-50-2356 14:30-0400Diastolic blood jazdbubd61 mm[Hg]Jack Peggy DO Work Phone: [facility] HospitalOhfugchfjb48-88-7910 14:30-0400Systolic blood kyloytvz553 mm[Hg]Jack Altamiranoo DO Work Phone: [phone] [place], [place] [address]Lmgyagbvuo49-35-5072 13:26-0400Body mass index (BMI) [Ratio]28.29 kg/m2Jayla Cali PA Work Phone: [phone] [place], [place] [address]Zwfzabhooz70-18-7274 13:26-0400Body apkndh62.49 kgJayla DA SILVA Work Phone: [phone] [place], [place] [address]Lkidajpwnl47-92-5360 13:26-0400Diastolic blood mm[Hg]Jayla DA SILVA Work Phone: [phone] [place], [place] [address]Kzltobikfe67-37-4002 13:26-0400Systolic blood gvnjvvmy727 mm[Hg]Jayla DA SILVA Work Phone: [phone]07-01-2025 08:47-0400Body usnsad452.6 cmGuadalupe Peres MD Work Phone: 1([phone] [place], [place] 1573607-01-2025 08:47-0400Body mass index (BMI) [Ratio]27.48 kg/m2Guadalupe Peres MD Work Phone: 1(907)[address] [place], [place] 1573607-01-2025 08:47-0400Body .2 kgGuadalupe Peres MD Work Phone: [phone])[address] [place], [place] 1573607-01-2025 08:47-0400Diastolic blood xfbdhcpa06 mm[Hg]Guadalupe Peres MD Work Phone: 1(839)[address] [place], [place] 1573607-01-2025 08:47-0400Heart rate 90 /Zahra Peres MD Work Phone: 1(568)[address] [place], [place] 1573607-01-2025 08:47-0400Systolic blood schypbmp856 mm[Hg]Guadalupe Peres MD Work Phone: 1(857)[address] [place], [place] 1573606-24-2025 14:10-0400Body mass index (BMI) [Ratio]27.02 kg/e9Tmles Peggy DO Work Phone: [phone] [place], [place] [address]Kmivbtohaw31-57-2047 14:10-0400Body ugzxdi61.93 kgCorey Peggy DO Work Phone: [phone] [place], [place] [address]Bxpwdynhmj40-64-9849 14:10-0400Diastolic blood dkiejtyv54 mm[Hg]Jack Peggy DO Work Phone: [phone])501-[address] [place], [place] [address]Dgosufutni28-90-4090 14:10-0400Systolic blood qghvewxj913 mm[Hg]Jack Peggy DO Work Phone: [phone])655-[address] [place], [place] [address]Uarxkwztea68-30-5186 14:35-0400Body mass index (BMI) [Ratio]27.41 kg/e4Kzvqq Peggy DO Work Phone: [phone])576-[address] [place], [place] [address]Pajyozwkfd44-33-4868 14:35-0400Body plpfyt06.02 kgCorey Peggy DO Work Phone: [phone])215-[address] [place], [place] [address]Chlqdlosqk55-64-5375 14:35-0400Diastolic blood mm[Hg]Jack Peggy DO Work Phone: 1(281)[facility] [place], [place] [address]Rooovryzde28-59-1528 14:35-0400Systolic blood mzcwnivt292 mm[Hg]Jack Peggy DO Work Phone: 1(531)423-[address] [place], [place] [address]Tlrnvjikch76-91-8891 13:34-0400Body mass index (BMI) [Ratio]26.95 kg/m2[facility]05-08-2025 13:34-0400Body ikcobk18.75 kgSaint [facility]05-[facility]-2025 13:34-0400Diastolic blood yfjqmbvq63 mm[Hg][facility]05-08-2025 13:34-0400Systolic blood xyqdxxfy772 mm[Hg][facility]11-27-2024 11:05-0500Body mass index (BMI) [Ratio]27.6 kg/e6Agknw Peggy DO Work Phone: [phone] [place], [place] [address]Zcdwsrnbdv43-41-8410 11:05-0500Body aklsta14.56 kgCorey Peggy DO Work Phone: [phone]-[facility] HospitalFylckytjoh52-85-9478 11:05-0500Diastolic blood nvslvfuw17 mm[Hg]Jack Peggy DO Work Phone: [facility] HospitalNptlmoxnvl74-14-5944 11:05-0500Systolic blood jfiajmom944 mm[Hg]Jack Peggy DO Work Phone: [facility] HospitalIluholgepg34-15-2004 13:52-0400Body pwbyvd406.6 cmCorey Peggy DO Work Phone: [facility] HospitalZpwgmtkbsy48-95-4170 13:52-0400Body mass index (BMI) [Ratio]26.6 kg/y8Samrb Peggy DO Work Phone: [phone] [place], [place] [address]Lpjamzwvmk33-60-8776 13:52-0400Body riwthl76.75 kgCorey Peggy DO Work Phone: [phone] [place], [place] [address]Yjamaruomk46-68-9764 13:52-0400Diastolic blood drsaglvd22 mm[Hg]Jack Peggy DO Work Phone: [facility] HospitalVwobzrzilq63-22-8561 13:52-0400Systolic blood sayymsev112 mm[Hg]Jack Peggy DO Work Phone: [facility] HospitalQbwodinoav85-51-0607 18:10-0500Body yjdgpv637.64 cmAmbtoyn Anton Other [employer] Other 11-07-2023 18:10-0500Body mass index (BMI) [Ratio] 26.95 kg/i5RszokRina Anton Other [employer] Other 11-07-2023 18:10-0500Body cywjlqafwdq44.9 [degF]Rina Anton Other [employer] Other 11-07-2023 18:10-0500Body .75 kgRina Anton Other [employer] Other 11-07-2023 18:10-0500Respiratory rate18 /minAmbtony Anton Other [place] Other 11-07-2023 18:10-7243AxG1% (BldA) [Mass fraction]97 % Rina Anton Other [place] Other 397806-55-0315 06:41-0400BP Kntogigss62 mm[Hg][facility], [id number] 06:41-0400BP Ekwivfom093 mm[Hg][facility] [employer] [facility], EP52-42-9587 06:41-0400Pulse (Heart Rate)64 /min [facility] HospitalC2 TherapeuticsSupplyHog [facility], HL78-45-1065 04:30-0400Body Timiskxtgzn53.01 [degF][facility] HospitalG[facility], PJ26-91-1826 04:30-0400Body bucbrs08.92 kgSt[address] Joseph'S HospitalGift Card Impressions [facility], [id number] 04:30-0400Pulse Eqzlixcm673 % [facility] HospitalG[facility] Imp[facility], [id number] 04:30-0400Respiratory Rate18 /min [facility] HospitalG[facility] Card Impressions [facility], [place] Encounters Encounter DateEncounter TypeCare ProviderFacilityStart: 03-17-2025 End: 46-49-3155Pprbkoafl Result EncounterHazel Romero NP Work Phone: noms External Department UnsolicitedStart: 03-17-2025 End: 66-96-1493Mitqgjsdq Result EncounterHazel Romero NP Work Phone: noms External Department UnsolicitedStart: 03-12-2025 End: 47-47-3084Hckivpmy flow sheetHazel Romero NP Work Phone: [facility]oms [facility]BGYNComment on above:Hemorrhoids, unspecified hemorrhoid type (Primary Dx); Third trimester ([facility]); 33 weeks gestation of ([facility])Start: 03-12-2025 End: 52-51-2378gttmhzaevvKJQMKBKG EBERLYNot AvailableStart: 03-12-2025 End: 10-53-5669Rsnktm flowsheetRashmia Heather FINISH MOL[employer] Work Phone: [facility] [place] [facility]BGYNStart: 03-12-2025 End: 05-90-9493Olqhpx flowsheetKristina Heather FINISH MOLDER Work Phone: [facility] [place] [facility]BGYNStart: 02-27-2025 End: 91-40-7981zaqdepgxsaVSHZV FAZIONot AvailableStart: 02-25-2025 End: 57-61-9386Fudcju flowsheetCorey Peggy DO Work Phone: [facility] [facility]BGYNStart: 02-25-2025 End: 62-79-8303Zgbhds flowsheetCorey Peggy DO Work Phone: [facility] [facility]BGYNStart: 02-25-2025 End: 91-29-9117Wxpqwjqf flow sheetCorey Peggy DO Work Phone: [facility] [place] OBGYNComment on above:Third trimester ([facility]); 31 weeks gestation of ([facility]); POTS (postural orthostatic tachycardia syndrome); Pain of right lower extremityStart: 02-25-2025 End: 46-91-3140euzkzaxrncYRMRF FAZIONot AvailableStart: 02-11-2025 End: 24-09-0712Iridsk flowsheetRashmia Heather FINISH MOLDER Work Phone: [facility] [facility]BGYNStart: 02-11-2025 End: 58-51-2148Xadvcu flowsheetKristina Heather FINISH MOLDER Work Phone: [facility] [place] [facility]BGYNStart: 02-11-2025 End: 62-14-4287Iawllkow flow sheetKristina Heather FINISH MOLDER Work Phone: [facility] [place] OBGYNComment on above: size inconsistent with dates ([facility]) (Primary Dx); Third trimester ([facility]); 29 weeks gestation of ([facility])Start: 02-11-2025 End: 70-02-4905fhpztmwhtjRRQVAUXM EBERLYNot AvailableStart: 01-29-2025 End: 98-83-4416Ffbuwrjvx Result EncounterJayla DA SILVA Work Phone: NOIN External Department UnsolicitedStart: 01-29-2025 End: 19-73-6881Wqolfbmvg Result EncounterJayla DA SILVA Work Phone: NONC External Department UnsolicitedStart: 01-28-2025 End: 98-00-0299Tqgtlr flowsheetJayla DA SILVA Work Phone: [facility]BGYNStart: 01-28-2025 End: 79-76-1367Cxrelj flowsheetJayla DA SILVA Work Phone: NOON [facility]BGYNStart: 01-28-2025 End: 34-07-6987Bkmmmvlc flow sheetJayla DA SILVA Work Phone: [facility] [place] OBGYNComment on above:Second trimester ([facility]); 27 weeks gestation of ([facility]); Elevated glucose tolerance testStart: 01-28-2025 End: 27-18-1549bcoovdfradVPN RAMEYNot AvailableStart: 01-27-2025 End: 49-25-4870Zqutovofr Result EncounterCorey Peggy DO Work Phone: NOHI External Department UnsolicitedStart: 01-27-2025 End: 58-04-1840Sawubdpzo Result EncounterCorey Peggy DO Work Phone: NONP External Department UnsolicitedStart: 01-24-2025 End: 74-33-6262btgadelhvpMNDLESt. Francis Hospitaltart: 01-21-2025 End: 99-01-2959Pwqeubgkn Result EncounterJayla DA SILVA Work Phone: noms External Department UnsolicitedStart: 01-21-2025 End: 32-20-2804Owccvsszt Result EncounterJayla DA SILVA Work Phone: NOMS External Department UnsolicitedStart: 01-16-2025 End: 26-42-1066Cwtxkw flowsheetCorey Peggy DO Work Phone: [facility] [place] OBGYNStart: 01-16-2025 End: 42-65-0547Hjcndf flowsheetCorey Peggy DO Work Phone: [facility] [place] OBGYNStart: 01-16-2025 End: 08-23-5572Bupkrxul flow sheetCorey Peggy DO Work Phone: [facility] [place] OBGYNComment on above:25 weeks gestation of ([facility]); Second trimester ([facility]); Palpitations; Syncope, unspecified syncope type; Gastroesophageal reflux in ([facility])Start: 01-16-2025 End: 10-80-4716hmevkxxazsEIOSU FAZIONot AvailableStart: 01-07-2025 End: 44-16-4183Igiwnj radhaJayla DA SILVA Work Phone: [facility] [place] [facility]BGYNStart: 01-07-2025 End: 78-54-9331Ieoxpo radhaJayla DA SILVA Work Phone: [facility] [place] [facility]BGYNStart: 01-07-2025 End: 99-86-1833Remtwozq flow yulisaJayla DA SILVA Work Phone: [facility] [place] OBGYNComment on above:Second trimester ([facility]); 23 weeks gestation of ([facility]); Palpitations; TachycardiaStart: 01-07-2025 End: 31-71-8702qjnumbgvrhTCN Eduardo AvailableStart: 12-31-2024 End: 60-29-9455Gvxfclfc flow sheetCorey Peggy DO Work Phone: [facility] [place] OBGYNComment on above:Second trimester ([facility]); 23 weeks gestation of ([facility]); Diabetes mellitus screeningStart: 12-31-2024 End: 93-28-0279ilucpnzofsNJORF FAZIONot AvailableStart: 12-31-2024 End: 97-54-6276Kfqzmj flowsheetCorey Peggy DO Work Phone: [facility] [place] [facility]BGYNStart: 12-31-2024 End: 28-25-7420Esvelz flowsheetCorey Peggy DO Work Phone: [facility] [place] [facility]BGYNStart: 12-10-2024 End: 80-83-9386zoryqdaivhXPQWY R FAZIOProMedica [facility] HospitalStart: 12-03-2024 End: 10-42-7414Afoaaz flowsheetJayla DA SILVA Work Phone: NOMS [facility] OBStart: 12-03-2024 End: 07-91-0378Vjssgq flowsheetJayla DA SILVA Work Phone: noMS BCP OBStart: 12-03-2024 End: 21-02-6323Jpdceeup flow sheetJayla DA SILVA Work Phone: [facility]OM[facility] OBComment on above:Second trimester ([facility]); 19 weeks gestation of ([facility])Start: 12-03-2024 End: 47-40-1199ltnhkllmtaNPM RAMEYNot AvailableStart: 11-12-2024 End: 46-70-1619Yihukd consultation new/estab patient 58 Zahra Peres MD Work Phone: [phone]-Nnand Medicine at [facility] Comment on above:Adnexal mass (Primary Dx); 16 weeks gestation of ; Uterine fibroids affecting in second trimester; Localized swelling of right lower extremityStart: 11-12-2024 End: 80-11-0044Sbttmv OnlyAmy Fabrice LPNMaternal- Medicine at [facility] CenterComment on above:Adnexal mass (Primary Dx); Uterine fibroids affecting in second trimester; Localized swelling of right lower extremityStart: 11-05-2024 End: 92-05-6001Oifqhz flowsheetCorey Peggy DO Work Phone: noms BCP OBStart: 11-05-2024 End: 11-57-6657Uyeafa flowsheetCorey Peggy DO Work Phone: noms BCP OBStart: 11-05-2024 End: 55-48-6306Kqqpcjfmj Result EncounterCorey Peggy DO Work Phone: noms External Department UnsolicitedStart: 11-05-2024 End: 37-53-0168Nozydxxf Result EncounterCorey Peggy DO Work Phone: noms External Department UnsolicitedStart: 11-05-2024 End: 18-15-0540Vhyplrd encounter procedureCorey Peggy DO Work Phone: [facility] Work Phone: Start: 11-05-2024 End: 50-74-8582Oafoqudc preventive med est patient 18-39 yrsCorey Peggy DO Work Phone: noms [facility] OBComment on above:Well woman exam with routine gynecological exam; Second trimester ([facility]); 15 weeks gestation of ([facility]); Vaginal discharge; STD exposureStart: 11-05-2024 End: 51-58-5440dyeomvymczDsnjz [facility] Work Phone: Start: 11-05-2024 End: 02-01-0733Bpepwnau ReferredCorey Peggy-LAB Path Spec [facility] HospStart: 10-08-2024 End: 19-54-7752Qrrjybwh flow sheetCorey Peggy DO Work Phone: noms [facility] OBComment on above:11 weeks gestation of ; First trimester ; Other constipation; Gastroesophageal reflux in pregnancyStart: 10-08-2024 End: 93-09-1681kbirzpveciWZJAD FAZIONot AvailableStart: 10-08-2024 End: 08-55-6054Utndpc flowsheetCorey Peggy DO Work Phone: noms BCP OBStart: 10-08-2024 End: 78-83-9558Mbonuk flowsheetCorey Peggy DO Work Phone: NOMS [facility] OBStart: 09-24-2024 End: 46-54-7396Htzklfpeb Result EncounterCorey Peggy DO Work Phone: NOMS External Department UnsolicitedStart: 09-24-2024 End: 51-17-5405Sevcobkse Result EncounterCorey Peggy DO Work Phone: NOMS External Department UnsolicitedStart: 09-19-2024 End: 19-50-7376Mavpbg outpatient visit 5 minutesNoms Bcp Ob Peggy NurseNOMS BCP OBComment on above:GA: 4v5pNmfnh: 09-19-2024 End: 54-94-4489tfazznybnxRZNXT FAZIONot AvailableStart: 08-28-2024 End: 14-29-5238tgfcyzpqlcCOHVB FAZIONot AvailableStart: 08-26-2024 End: 96-99-0317Okgsjobzi Result EncounterCorey Peggy DO Work Phone: NOMS External Department UnsolicitedStart: 08-26-2024 End: 25-43-2025Bekzrbcef Result EncounterCorey Peggy DO Work Phone: NOMS External Department UnsolicitedStart: 08-24-2024 End: 20-21-9903Yowmuwhfw Result EncounterCorey Peggy DO Work Phone: NOMS External Department UnsolicitedStart: 08-24-2024 End: 85-62-2568Yblkaoogg Result EncounterCorey Peggy DO Work Phone: NOMS External Department UnsolicitedStart: 08-22-2024 End: 21-60-3237Dqlefytzx Result EncounterCorey Pgegy DO Work Phone: NOMS External Department UnsolicitedStart: 08-22-2024 End: 76-32-9510Xjjcxtwiq Result EncounterCorey Peggy DO Work Phone: NOMS External Department UnsolicitedStart: 08-20-2024 End: 44-27-0552Uyztvoftu Result EncounterCorey Peggy DO Work Phone: noms External Department UnsolicitedStart: 08-20-2024 End: 27-67-1010Yrrnaixur Result EncounterCorey Peggy DO Work Phone: NORR External Department UnsolicitedStart: 08-17-2024 End: 32-31-5085Xsjaktphh Result EncounterCorey Peggy DO Work Phone: NOPH External Department UnsolicitedStart: 08-17-2024 End: 09-50-8615Pedxohysm Result EncounterCorey Peggy DO Work Phone: NOUZ External Department UnsolicitedStart: 08-15-2024 End: 56-01-9541Vwkpnjoel Result EncounterCorey Peggy DO Work Phone: NORS External Department UnsolicitedStart: 08-15-2024 End: 14-58-3711Cfstrwnyt Result EncounterCorey Peggy DO Work Phone: NOHN External Department UnsolicitedStart: 06-14-2024 End: 50-35-6644Ecjbeuykw Result EncounterCorey Peggy DO Work Phone: NOCY External Department UnsolicitedStart: 06-14-2024 End: 98-93-7845Icbehzncz Result EncounterCorey Peggy DO Work Phone: NOVF External Department UnsolicitedStart: 04-18-2024 End: 18-89-2966Yldttbrql Result EncounterCorey Peggy DO Work Phone: NOKN External Department UnsolicitedStart: 04-18-2024 End: 83-85-5751Qfliqohkk Result EncounterCorey Pgegy DO Work Phone: NOMS External Department UnsolicitedStart: 04-10-2024 End: 43-18-3813Pgzkos flowsheetCorey Peggy DO Work Phone: NOMS BCP OBStart: 04-10-2024 End: 73-29-5961Hgzboa flowsheetCorey Peggy DO Work Phone: noms BCP OBStart: 04-10-2024 End: 75-01-9121Hoxrsv outpatient visit 15 minutesCorey Peggy DO Work Phone: noms BCP OBComment on above:Encounter for infertility; Hormone disorderStart: 04-10-2024 End: 80-48-9855cpxvliemlyOAEOZ FAZIONot AvailableStart: 03-21-2024 End: 81-07-9590Xqcewdoik Result EncounterCorey Peggy DO Work Phone: noms External Department UnsolicitedStart: 03-21-2024 End: 70-74-2029Eopgrxtoo Result EncounterCorey Peggy DO Work Phone: noms External Department UnsolicitedStart: 02-17-2024 End: 19-37-6102Vpseoeqpo Result EncounterCorey Peggy DO Work Phone: noms External Department UnsolicitedStart: 02-17-2024 End: 73-98-4109Yowklyoxu Result EncounterCorey Peggy DO Work Phone: noms External Department UnsolicitedStart: 2024 End: 44-08-7782Kkcqvrtcu Result EncounterCorey Peggy DO Work Phone: noms External Department UnsolicitedStart: 2024 End: 65-42-2720Jdazpbivo Result EncounterCorey Peggy DO Work Phone: noms External Department UnsolicitedStart: 2024 End: 69-23-9418Bjxxpx outpatient visit 15 minutesCorey Peggy DO Work Phone: noms BCP OBComment on above:Female infertility; History of miscarriageStart: 01-05-2024 End: 29-01-4893Vtxpzts encounter procedureMD Zachary Mayes Work Phone: [facility]-Lab Main [place] Work Phone: Start: 01-05-2024 End: 27-59-5867uydxwbpffkYG Zachary Alvarez Gerber Work Phone: [phone] [place] [address] Medical Ctr Work Phone: Start: 12-28-2023 End: 52-98-5415Zswgcsc encounter procedureMD Zachary Mayes Work Phone: [phone] [place] [address] Ctr-Lab Main [place] Work Phone: Start: 12-28-2023 End: 83-93-0244qfovagwghtBW Zachary Mayes Work Phone: [phone] [place] [address] Ctr Work Phone: Start: 12-22-2023 End: 63-76-8514Qzxmvst encounter procedureMD Zachary Mayes Work Phone: [phone] [place] [address] Ctr-Lab Main [place] Work Phone: Start: 12-22-2023 End: 29-97-5441vlegwdqruwKF Zachary Mayes Work Phone: [phone] [place] [address] Ctr Work Phone: Start: 12-20-2023 End: 30-45-0247Qmgdgqq encounter procedureMD Zachary Mayes Work Phone: [phone] [place] [address] Ctr-Ultrasound Main [place] Work Phone: Start: 12-20-2023 End: 02-68-5956ejzgecdrcsLW Zachary Alvarez Gerber Work Phone: [phone] [place] [address] Ctr Work Phone: Start: 12-09-2023 End: 68-04-2247Udlswxm encounter procedureMD Zachary Mayes Work Phone: [phone] [place] [address] Ctr-Lab Main [place] Work Phone: Start: 12-09-2023 End: 85-60-0214hsynibnrjdZV Zachary Alvarez Gerber Work Phone: [phone] [place] [address] Ctr Work Phone: Start: 12-07-2023 End: 08-49-3520Oknztdp encounter procedureMD Zachary Mayes Work Phone: [facility]-Lab Main [place] Work Phone: Start: 12-07-2023 End: 77-81-6012fvdipqwdinKP Zachary Mayes Work Phone: [phone] [place] [address] Ctr Work Phone: Start: 12-05-2023 End: 28-69-9010Lpxwqhv encounter procedureMD Zachary Mayes Work Phone: [phone] [place] [address] Medical Ctr-Lab Main [place] Work Phone: Start: 12-05-2023 End: 44-80-2132atfocwcydrAT Zachary Mayes Work Phone: [phone] [place] [address] Ctr Work Phone: Start: 12-02-2023 End: 14-39-3624gdynagnqpoUY Zachary Mayes Work Phone: [phone] [place] [address] Medical Ctr Work Phone: Start: 12-02-2023 End: 83-52-5108Neouhqg encounter procedureMD Zachary Mayes Work Phone: [phone] [place] [address] Ctr-Lab Main [place] Work Phone: Start: 05-01-2023 End: 70-25-7328Orgohjilm to same day surgery centerMD Zachary Mayes Work Phone: [phone] [place] [address] Ctr-XRay Main [place] Work Phone: Start: 05-01-2023 End: 19-63-1938yjbmifegvsTL Zachary Mayes Work Phone: [phone] [place] [address] Ctr Work Phone: Start: 03-21-2023 End: 76-16-2046dofdptkkmnLafsv Keller Other [place] Other Start: 66-13-8385Gadvmp outpatient new 30 minutesAmber KellerFPG Urgent Care ClydeStart: 02-01-2019 End: 01-30-2145Citsvxrom department patient visitVESKATH PROCTORVMercashish [facility] Hospitaltart: 02-01-2019 End: 84-92-1734Kdxdpkgtm department patient visitVesgrafton city hospital Dago Work Phone: [facility] EDComment on above:Abdominal pain, right lower quadrant (Primary Dx); History of ovarian cyst Procedures DateProcedureProcedure DetailPerforming ClinicianStart: 57-25-3198RTS CBC WITH AUTO DIFFKristina Heather FINISH MOLDER Work Phone: Start: 57-21-5741Dzuyj dip stick/tablet rgnt non-auto w/o micrscpKristina Heather FINISH MOLDER Work Phone: Start: 19-97-6702Hvqxz dip stick/tablet rgnt non-auto w/o micrscpCorey Peggy DO Work Phone: Start: 62-07-7611Jklwy dip stick/tablet rgnt non-auto w/o micrscpKristina Heather FINISH MOLDER Work Phone: Start: 35-62-4784XWTOZSL TOLERANCE 3 HOURAmy Cali DA SILVA Work Phone: Start: 43-60-8532Sgbxa dip stick/tablet rgnt non-auto w/o micrscpCorey Peggy DO Work Phone: Start: 87-69-9200SPFMGQH 1 HOURCorey Peggy DO Work Phone: Start: 21-49-3816QM ECHO DOPPLER COMPLETEJayla DA SILVA Work Phone: Start: 18-41-8892Esikq dip stick/tablet rgnt non-auto w/o micrscpCorey Peggy DO Work Phone: Start: 91-18-2663Nkzys dip stick/tablet rgnt non-auto w/o micrscpAmy Cali DA SILVA Work Phone: Start: 32-13-9234Vdadn dip stick/tablet rgnt non-auto w/o micrscpCorey Peggy DO Work Phone: Start: 63-40-8146Bbets dip stick/tablet rgnt non-auto w/o micrscpAmy Cali DA SILVA Work Phone: [phone]: 66-56-7877WBAQA FREE CELL DNA (NON-[facility] SEND OUT)Not In System Ref ProvStart: 66-14-8004NHJWBNXNT VAGINITIS (HTRX)Jack Peggy DO Work Phone: Start: 57-86-9392Wlyxs dip stick/tablet rgnt non-auto w/o micrscpCorey Peggy DO Work Phone: Start: 95-05-5782YJX,APTIMA HPV,AGE GDLNCorey Peggy DO Work Phone: Start: 31-66-4245PTMMMNWCB REQUEST FOR LAB CORPCorey Peggy DO Work Phone: [phone]: 77-53-7174Aahty dip stick/tablet rgnt non-auto w/o micrscpCorey Peggy DO Work Phone: Start: 35-18-3065LGJ HEMOGLOBIN G7ECnlaj Peggy DO Work Phone: Start: 44-00-4629Rpdlx dip stick/tablet rgnt non-auto w/o micrscpCorey Peggy DO Work Phone: Start: 50-18-1103ZSQ PREG QUANT HCGCorey Peggy DO Work Phone: Start: 43-98-8543FUD PREG QUANT HCGCorey Peggy DO Work Phone: Start: 29-45-0841NCC PREG QUANT HCGCorey Peggy DO Work Phone: Start: 70-05-5552LXA PREG QUANT HCGCorey Peggy DO Work Phone: Start: 69-67-1827XTC PREG QUANT HCGCorey Peggy DO Work Phone: Start: 21-34-3349UZS PREG QUANT HCGCorey Peggy DO Work Phone: Start: 88-95-1528QYE PROGESTERONECorey Peggy DO Work Phone: Start: 04-81-7479VIR PROGESTERONECorey Peggy DO Work Phone: Start: 37-89-3038SLJ PREG QUANT HCGCorey Peggy DO Work Phone: Start: 79-48-2850TFX PROGESTERONECorey Peggy DO Work Phone: Start: 50-48-0958PML HEMOGLOBIN W0CWtexk Peggy DO Work Phone: Start: 23-07-5550Sdxnlyvekq ultrasound of gravid uterusMD Zachary Mayes Work Phone: Start: 01-65-0245Uhqfocsjid microscopic onlyVESELIN DIMITROVStart: 86-93-6765Eagbw test visual color cmprsn methsVESELIN DIMITROVStart: 95-99-9844Psels dip stick/tablet rgnt auto w/o microscopyVESELIN DIMITROVStart: 53-03-4351Tdqfi count complete auto&auto difrntl wbcVESELIN DIMITROVStart: 97-34-3484Ejxaaoesubhnf metabolic panelVESELIN DIMITROVStart: 80-30-2647Vcjdshacei microscopic onlyVeselin Dago Work Phone: start: 84-24-8244Xxmfx test visual color cmprsn methsVeselin Dago Work Phone: start: 21-09-1528Sqsbi dip stick/tablet rgnt auto w/o microscopyVeselin Dago Work Phone: start: 37-78-2765Mmect count complete auto&auto difrntl wbcVeselin Dago Work Phone: start: 71-21-6809Mplalcsdeacor metabolic panelVeselin Dago Work Phone: Plan of Treatment DateCare ActivityDetailAuthorStart: 91-89-3400Qmaed BMI ScreeningAdult BMI ScreeningProPremier Health SystemStart: 50-17-0947Euhqebz ScreeningTobacco ScreeningProPremier Health SystemStart: 03-26-2025 End: 32-60-8712Ildjzyz encounter phhusfeau31/12/2025 2:40 PM EST Routine [facility] [address] [place], [id number] Jack Woods DO [address] [place] [address] [facility]BGYNStart: 03-12-2025 End: 46-07-8183Wjadhov encounter procedureNOMS [facility] OBGYNComment on above: ArrivedStart: 02-27-2025 End: 07-41-5115Hyypgooifauz / ancillary services nqtgtnuekj91/16/2025 11:00 AM EDT Ancillary Procedure [facility] [address] [place] [id number] [facility]BGYNStart: 02-25-2025 End: 96-80-4272KM.doppler Lower extremity vein - rightVascular US lower extremity venous duplex right Imaging Routine Pain of right lower extremity Expected: 02/25/2025, Expires: 02/25/2026[facility] Work Phone: comment on above:Expected: 02/25/2025, Expires: 02/25/2026Start: 02-25-2025 End: 31-59-3725Bpcerrl encounter procedureNOMS [facility] OBGYNComment on above: ArrivedStart: 02-19-2025 End: 99-09-1930Griigqvjaelt / ancillary services vifvvbfxuz62/08/2025 11:30 AM EDT Ancillary Procedure [facility] [address] [place] [address] [phone] [facility] OBGYNStart: 02-11-2025 End: 25-36-6029HJ for pregnancyUS OB follow up transabdominal approach Imaging Routine size inconsistent with dates ([facility]) Expected: 02/11/2025, Expires: 06/13/2025[facility] Work Phone: comment on above:Expected: 02/11/2025, Expires: 06/13/2025Start: 02-11-2025 End: 09-57-6165Ihhfrpw encounter procedureNOMS [place] OBGYNComment on above: ArrivedStart: 01-28-2025 End: 80-77-3314Unbkcqomeua of glucose 3 hours after glucose challenge for glucose tolerance testGlucose tolerance, 3 hours Lab Routine Elevated glucose tolerance test Expected: 01/28/2025 (Approximate), Expires: 01/28/2026[facility] Work Phone: comment on above:Expected: 01/28/2025 (Approximate), Expires: 01/28/2026Start: 01-28-2025 End: 99-05-4949Jtczidb encounter procedureNOMS [place] OBGYNComment on above: ArrivedStart: 01-21-2025 End: 44-75-1026Lsvqluj encounter zcdmtrtge83/09/2025 8:40 AM EDT Office Visit RIMMA GALDAMEZ [address] [place] [id number] Jack Woods, DO [address] [place] [address] [facility] [place] [facility]BGYNStart: 01-16-2025 End: 19-08-6550Trevdzh encounter /04/2025 9:20 AM EDT Office Visit RIMMA GALDAMEZ [address] [place] [id number] Jack Woods, DO [address] [place] [address] ArrivedNOMS [place] OBGYNComment on above:ArrivedStart: 61-34-0417Zvfbxkgpe vaccinationInfluenza [facility] SystemStart: 01-07-2025 End: lead ECGECG 12 lead unit performed ECG Routine Palpitations Expected: 01/07/2025 (Approximate), Expires: 01/07/2026[facility] Work Phone: comment on above:Expected: 01/07/2025 (Approximate), Expires: 01/07/2026Start: 01-07-2025 End: 53-59-3949Bptxbkzbwnclem 2D completeEchocardiogram 2D complete Echocardiography Routine Palpitations Tachycardia Expected: 01/07/2025 (A pproximate), Expires: 01/07/2027NOMS HealthcareComment on above:Expected: 01/07/2025 (Approximate), Expires: 01/07/2027Start: 01-07-2025 End: 23-00-6604Kyfqyak encounter enyaaouiu54/26/2025 1:50 PM EDT Office Visit RIMMA GALDAMEZ [address] [place] [address] Jayla Art PA [address] [place], [place] [id number] ArrivedNOMS [place] OBGYNComment on above:ArrivedStart: 12-31-2024 End: 20-08-0663Courykt encounter aikqgsbhg82/19/2025 2:10 PM EDT Routine [facility] [place] [facility]BANABELAN [address] [place], [id number] Jack Woods DO [address] [place], [place] [id number] ArrivedNOMS [place] OBGYNComment on above:ArrivedStart: 12-31-2024 End: 97-75-5527BFG panel - Blood by Automated countCBC Lab Routine Diabetes mellitus screening Expected: 12/31/2024 (Approximate), Expires: 12/31/2025[facility] Work Phone: Comment on above:Expected: 12/31/2024 (Approximate), Expires: 12/31/2025Start: 12-31-2024 End: 79-60-9919Agwyrmeiknd of glucose 1 hour after glucose challenge for glucose tolerance testGlucose tolerance, 1 hour Lab Routine Diabetes mellitus screening Expected: 12/31/2024 (Approximate), Expires: 12/31/2025NOMS HealthcareComment on above:Expected: 12/31/2024 (Approximate), Expires: 12/31/2025Start: 12-10-2024 End: 04-63-1191Nwufghx encounter vnzwbqgaj84/29/2025 1:30 PM EDT Appointment Maternal Medicine [place] [address] [place] [address] [facility]: 12-03-2024 End: 77-99-5090Wggpjpd encounter procedureNOMS BCP OBComment on above:Second trimester ([facility])Start: 11-12-2024 End: 88-95-0073ZT Pelvis WO contrastMR pelvis without contrast Imaging Routine Adnexal mass 16 weeks gestation of Expected: 11/12/2024, Expires: 11/12/2025[facility] Work Phone: Comment on above:Expected: 11/12/2024, Expires: 11/12/2025Start: 11-12-2024 End: 29-44-8492FU MFM with or without consultUS MFM with or without consult Imaging Routine Adnexal mass Uterine fibroids affecting insecond trimester Localized swelling of right lower extremity Expected: 11/12/2024, Expires: 11/12/2025[facility] Work Phone: Comment on above:Expected: 11/12/2024, Expires: 11/12/2025Start: 11-12-2024 End: 05-87-4191QP.doppler Lower extremity vein - rightVas venous duplex insufficiency lwr rt Vascular Ultrasound Routine Localized swelling of right lower extremity Expected: 11/12/2024, Expires: 11/12/2025[facility] Comment on above:Expected: 11/12/2024, Expires: 11/12/2025Start: 11-05-2024 End: 83-86-8758Rowpc fetoprotein, maternalAlpha fetoprotein, maternal Lab Routine Second trimester ([facility]) 15 weeks gestation of ([facility]) Expected: 11/05/2024 (Approximate), Expires: 05/07/2025[facility] Comment on above:Expected: 11/05/2024 (Approximate), Expires: 05/07/2025Start: 11-05-2024 End: 58-56-6233Qzbfrlg encounter procedureNOMS BCP OBComment on above:Arrived Start: 89-69-3790LeukbzyujKindred Healthcaretart: 10-08-2024 End: 78-89-5905Wsxbblk encounter procedureNOMS BCP OBComment on above:Arrived Start: 09-19-2024 End: 63-70-5917TJE/RhABO/Rh Lab Routine Missed menses , unspecified gestational age Expected: 09/19/2024 (Approximate), Expires: 09/19/2025NOMD HealthcareComment on above:Expected: 09/19/2024 (Approximate), Expires: 09/19/2025Start: 09-19-2024 End: 38-78-7424Ptstx type and Indirect antibody screen panel - BloodType and screen Lab Routine Missed menses , unspecified gestational age Expected: 09/19/2024 (Approximate), Expires: 09/19/2025[facility] Work Phone: comment on above:Expected: 09/19/2024 (Approximate), Expires: 09/19/2025Start: 09-19-2024 End: 47-56-3090Xwlyt of abuse panel - Urine by Screen methodRapid drug screen, urine Lab Routine , unspecified gestational age Encounter for supervision of normal first in first trimester Expected: 09/19/2024 (Approximate), Expires: 09/19/2025NOMD HealthcareComment on above:Expected: 09/19/2024 (Approximate), Expires: 09/19/2025Start: 09-19-2024 End: 19-93-1954rbudmghaim74/08/2025 1:30 PM EDT Initial [facility] B[facility] OB [address] [place] [address] RIDX BCP OBStart: 09-19-2024 End: 33-44-4555Vhwjdvpaymrm / ancillary services ftoduaswjt62/08/2025 1:00 PM EDT Ancillary Procedure [facility] OB [address] [place] [address] YWUL BCP OBStart: 08-28-2024 End: 89-42-4590Hredwcphdjce / ancillary services hvbnmoprfm82/16/2025 8:30 AM EDT Ancillary Procedure [facility] [address] [place] [address] OPSA BCP OBStart: 04-10-2024 End: 50-50-1165Abctksqgdhcjy hormone (AMH)Antimullerian hormone (AMH) Lab Routine Hormone disorder Expected: 04/10/2024 (Approximate), Expires: 04/10/2025 [facility] Work Phone: comment on above:Expected: 04/10/2024 (Approximate), Expires: 04/10/2025Start: 04-10-2024 End: 06-85-4834Vmwhxat encounter uermtkaag23/27/2024 11:10 AM EST Office Visit [facility] [address] [place] [phone] Jack Woods, DO [address] [place] [address] [place] [address] ArrivedNOMS BCP OBComment on above:ArrivedStart: 2024 End: 45-65-9305Lzfjbao encounter ovdfssxig76/24/2024 1:20 PM EDT Office Visit [facility] B[facility] OB [address] [place] [address] Jack Woods, DO [address] [place] [address] NOMS BCP OBStart: 28-82-3532HAmF,Tdap and Td Vaccines (2 - Td or Tdap)DTaP,Tdap and Td Vaccines (2 - Td or Tdap)[facility]: 89-51-6489Pmmyxszxg for malignant neoplasm of cervixPap Smear [facility]: 28-49-8550Xcrzzyokd vaccinationFlu vaccine (#1) [facility]: 45-79-8393Hfqqh BMI Follow Up PlanAdult BMI Follow Up PlanAtrium Health [facility] Centertart: 03-03-4140Fznlyfmoyd ScreeningDepression ScreeningUC HealthBacteria identified in Urine by CultureUrine culture Microbiology Routine Missed menses Ordered: 09/19/2024[facility] Comment on above:Ordered: 09/19/2024BC W Auto Differential panel - BloodCBC and differential Lab Routine Missed menses , unspecified gestational age Ordered: 09/19/2024[facility] HealthcareComment on above:Ordered: 09/19/2024BC W Auto Differential panel - BloodCBC and differential Lab Routine Third trimester ([facility]) Ordered: 03/12/2025[facility] Work Phone: comment on above:Ordered: 03/12/2025HLAMYDIA TRACHOMATIS [...] on above:Ordered: 11/05/2024Progesterone [Mass/volume] in Serum or PlasmaPremier Health Upper Valley Medical CenterReagin Ab [Presence] in Serum by RPRRPR Lab Routine Missed menses , unspecified gestational age Ordered: 09/19/2024[facility] HealthcareComment on above:Ordered: 09/19/2024Rubella antibody, IgGRubella antibody, IgG Lab Routine Missed menses , unspecified gestational age Ordered: 09/19/2024[facility] HealthcareComment on above:Ordered: 09/19/2024SURESWAB(R) ADVANCED VAGINITIS PLUS, TMASURESWAB(R) ADVANCED VAGINITIS PLUS, TMA Pathology and Cytology Routine Vaginal discharge Ordered: 11/05/2024[facility] Work Phone: comment on above:Ordered: 11/05/2024 Immunizations Immunization DateImmunizationNotesCare LnrlpsrjZiobsbtu95-70-9667jiywswnjw virus vaccine, unspecified formulationGuadalupe Peres MD Work Phone: [facility] Payers DatePayer CategoryPayerPolicy [id number] Medical Center Care - OAFORMERLY [facility] Member Subscriber Plan / Payer (Effective 2024-Present) Name: Daphney Al Relation to Subscriber: Self Name: Daphney Al PayerID: [facility] ([facility]) Type: Not on file Address: [address] [place] [id number] [address] [facility] 1.2.840.360106.1.13.693.2.7.9.645544.603[id number] 84-91-8240Fccuksg Health [id number] 2..7.688457.2131-20-2024 Irrq-ixoi0b80317-8b08ediv4a59849-2k30-2j15-1y90-6f64128ms65c92-82-6094Gbzhrsu Health Insurance 1.2.840.173050.1.13.693.2.7.3.440544.03[id number] UnknownBCBS BCBS - [place] PPO xxxxxxxxxxxx 2014-Present [address] [place], [place] [address]mmhnwxkjgdip 1.2.840.037240.1.13.239.2.7.3.898219.81485-91-3331Dfpksrv [id number] 2..1.892095.3.57[id number] 2.0.1.372130.3.57[id number] 2.0.1.815222.3.579.[id number] 2.16840.1.756017.3.579.[id number] 2.16840.1.962492.3.57[id number] 2.16840.1.718720.3.579.2.[id number] 2.160.1.846409.3.57[id number] 2.0.1.668456.3.57[id number] 2..1.680566.3.57[id number] 2..1.698032.3.579.2.352555-32-9684Eicilqk07769826 2..1.637211.3.579.2.7[id number] 2..1.884980.3.579.2.[id number] 2..1.680693.3.579.2.406668-54-3025Jaaymfy75942471 2..1.425479.3.579.[id number] 2.0.1.532405.3.579.2.239208-68-3093Utupnzp5222466 2..1.002198.3.57[id number] 2.840.1.403180.3.57[id number] 2.840.1.319888.3.579.2.[id number] 2.16840.1.488175.3.[id number] 75h3m182-o08q-10hb-it35-1s53m766f9rvSftjiacJuawxi /[id number] 89mv1p89-2578-1nq8-x09e-[id number] 2.16.840.1.0[id number] 2.16840.1.830961.3.579.2.531 [id number] 2.16840.1.969[id number] 2.16840.1.0033[id number] 2.16840.1.409080.3.579.2.531 [id number] 2.16840.1.4[id number] 2.16840.1.6[id number] 2.16840.1.778431.3.579.2.531 [id number] 2.0.1.798157.3.579.2.531 Social History DateTypeDetailFacilityStart: 02-01-2019 End: 64-94-2853Drwztiy smoking status [facility] smokerKindred Healthcaretart: 02-01-2019 End: 43-37-5443Feyfbqz intakeNot [facility]: 2000 Sex Assigned At BirthNot on [facility]: 24-72-0309Vqq Assigned At BirthFeThe University of Toledo Medical Centertart: 2024 End: 17-70-6500Cgnsczgxp beverage intakeLifetime non-drinker (finding)[facility] HealthcareStart: 04-28-2023 End: 61-37-5862Chadisz of Social functionNOMD HealthcareStart: 25-50-4129Mfoubhi CommentCaffeine intake: 3-4 cups per dayCASTLEVIEW HOSPITAL HealthcareStart: 08-06-2024 PregnancyNOMD HealthcareStart: 66-75-8834VsqKrnhug (finding)[facility] Healthcaretart: 06-24-4119Mttahy the past 12 months we worried whether our food would run out before we got money to buy more.Never [facility] Clinical Notes 03-21-2023 to 03-12-2025 Note Date & JfoqArygZajuehkc32-53-2603 History of Present illness Narrative* Hazel Romero, FINISH MOLDER - 03/12/2025 2:40 PM EDT Reason for Appointment: Patient ID: Daphney Al is a 25 y.o. female who presents for Routine Visit Patient presents today for Return OB appointment. MEDICATIONS Current Outpatient Medications Medication Instructions aspirin 81 MG oral suspension ondansetron (Zofran) 4 MG tablet TAKE 1 TABLET BY MOUTH EVERY 6 HOURS NEEDED FOR NAUSEA AND VOMITING Vit w/Zu-Otmtpaxxn-UQ (PNV PO) ALLERGIES Allergies Allergen Reactions Cephalexin [...] nursing note reviewed. Exam conducted with a real estate agency licensee present. Vitals: Estimated body mass index is 30.55 kg/m as calculated from the following: Height as of 02/06/24: 5' 6 . Weight as of this encounter: 189 lb 4 oz. BP: 102/72 Patient's last menstrual period was 07/23/2024. Assessment/Plan ICD-10-CM 1. Third trimester ([facility]) Z34.93 POCT urinalysis dipstick manually resulted 2. 33 weeks gestation of ([facility]) Z3A.33 Return OB: Patient presents today [...] of: Hazel Romero NP documented in this encounterCenterPointe HospitalBwkpomloqi87-52-8588 History of Present illness Narrative* Lisa Prasad, BRIANA - 02/25/2025 1:50 PM [...] 6 hours as needed for nausea. Vit w/Xz-Ybixjlayo-RJ (PNV PO) ALLERGIES Allergies[1] PROBLEMS Active Ambulatory Problems Diagnosis Date Noted No Active Ambulatory Problems Resolved Ambulatory Problems Diagnosis Date Noted No Resolved Ambulatory Problems Past Medical History: Diagnosis Date Acne vulgaris Endometriosis History of medical problems Miscarriage ([facility]) Ovarian cyst HISTORY PAST MEDICAL HISTORY [...] nursing note reviewed. Exam conducted with a real estate agency licensee present. Vitals: Estimated body mass index is 30.67 kg/m as calculated from the following: Height as of 02/06/24: 5' 6 . Weight as of this encounter: 190 lb. BP: 120/70 Patient's last menstrual period was 07/23/2024. ASSESSMENT & PLAN ICD-10-CM 1. Third trimester ([facility]) Z34.93 POCT urinalysis dipstick manually resulted 2. 31 weeks gestation of ([facility]) Z3A.31 3. POTS (postural orthostatic tachycardia syndrome) [...] Diagnostic lap-endometriosis TONSILLECTOMY 11/03/2016 documented in this encounterCenterPointe HospitalZqxtwnvqrl17-88-9918 History of Present illness Narrative* Hazel Romero, [...] 6 hours as needed for nausea. Vit w/No-Lueuzbhve-TQ (PNV PO) ALLERGIES Allergies Allergen Reactions Cephalexin [...] nursing note reviewed. Exam conducted with a real estate agency licensee present. Vitals: Estimated body mass index is 30.18 kg/m as calculated from the following: Height as of 02/06/24: 5' 6 . Weight as of this encounter: 187 lb. BP: 118/72 Patient's last menstrual period was 07/23/2024. ASSESSMENT & PLAN ICD-10-CM 1. Third trimester ([facility]) Z34.93 POCT urinalysis dipstick manually resulted 2. 29 weeks gestation of ([facility]) Z3A.29 Return OB: Patient presents today for a routine obstetrics appointment. Patient is currently 29w0d . Patient states she is doing well but has complaints of being tired due to current . Patient has verbalizes frequent movement. labor precautions was discussed/given and patient was instructed to perform kick counts three times a day. Patient has been evaluated by [facility] Cardiology with a history of [...] of: Hazel Romero NP documented in this encounterCenterPointe HospitalMnqtbgvjwl18-69-0808 History of Present illness Narrative* REKHA Ott [...] 6 hours as needed for nausea. Vit w/Jy-Xibcemdul-VW (PNV PO) ALLERGIES Allergies Allergen Reactions Cephalexin [...] vulgaris Endometriosis History of medical problems Miscarriage ([facility]) Ovarian cyst HISTORY PAST MEDICAL HISTORY SOCIAL HISTORY Past Medical History: Diagnosis Date Acne vulgaris Endometriosis History of medical problems recurrent strep Miscarriage ([facility]) Ovarian cyst Social History Tobacco Use Smoking [...] ASSESSMENT & PLAN ICD-10-CM 1. Second trimester ([facility]) Z34.92 POCT urinalysis dipstick manually resulted 2. 27 weeks gestation of ([facility]) Z3A.27 3. Elevated glucose tolerance test R73.09 [...] behalf of: REKHA Ott documented in this encounterCenterPointe HospitalCyqkydsvzz57-08-8795 [facility] Reason for [...] negative for PE or any abnormalities. Her band splitter ordered echo which came back normal. A [...] she cannot go b (more content not included)...[facility]09-04-2025 History of Present illness Narrative* Kelley Kearneydmitri, EDUCATOR SENIOR CLINICAL - 01/16/2025 9:20 AM EDT Reason for Appointment: Patient ID: Daphney Al is a 24 y.o. female who presents for Routine Visit Patient presents today for Return OB appointment. MEDICATIONS Current Outpatient Medications Medication Instructions aspirin 81 MG oral suspension ondansetron (ZOFRAN) 4 mg, Oral, Every 6 hours PRN, Take 1 tablet by mouth every 6 hours as needed for nausea. Vit w/Nf-Twoqkupfp-AX (PNV PO) ALLERGIES Allergies Allergen Reactions Cephalexin [...] nursing note reviewed. Exam conducted with a real estate agency licensee present. Vitals: Estimated body mass index is 29.67 kg/m as calculated from the following: Height as of 02/06/24: 5' 6 . Weight as of this encounter: 183 lb 12.8 oz. BP: 120/78 Patient's last menstrual period was 07/23/2024. ASSESSMENT & PLAN ICD-10-CM 1. 25 weeks gestation of ([facility]) Z3A.25 POCT urinalysis dipstick manually resulted 2. Second trimester ([facility]) Z34.92 POCT urinalysis dipstick manually resulted 3. Palpitations R00.2 4. Syncope, unspecified syncope type R55 5. Gastroesophageal reflux in ([facility]) O99.619 K21.9 Patient presents today for a routine obstetrics appointment. Patient is currently 25w2d with a Estimated Date of Delivery: 04/29/25. Patient had spells where she passed out. Patient to have Cardiac Consult hopefully within the next week. Referral will be made today to Cardiology at [facility]. Patient has a EKG scheduled for Monday at 1pm. Patient voiced that she sees stars and then gets dizzy.Advised to increase protein and to remain off work until cleared by Cardiology. Patient to return to clinic 1 week. Documented by Kelley Sepulveda LPN on behalf of: Jack Woods DO documented in this encounterCenterPointe HospitalUdctdlnoku47-59-2556 History of Present illness Narrative* REKHA Ott [...] 6 hours as needed for nausea. Vit w/Kz-Lhiiyvimn-UP (PNV PO) pyridoxine (VITAMIN B-6) 25 mg, [...] calculated from the following: Height as of 24: 5' 6 . Weight as of 8/19/25: 184 lb 12.8 oz. BP: Patient's last menstrual period was 07/23/2024. ASSESSMENT & PLAN ICD-10-CM 1. Second trimester ([facility]) Z34.92 POCT urinalysis dipstick manually resulted iron polysaccharides (ProFe) 391.3 (180 Fe) MG capsule 2. 23 weeks gestation of ([facility]) Z3A.23 3. Palpitations R00.2 ECG 12 lead [...] behalf of: REKHA Ott documented in this encounterCenterPointe HospitalYwqigrpilq41-29-3590 History of Present illness Narrative* Lisa Prasad LPN - 12/31/2024 2:10 PM EDT Reason for [...] 6 hours as needed for nausea. Vit w/Rs-Wcvfhhcor-AF (PNV PO) pyridoxine (VITAMIN B-6) 25 mg, [...] nursing note reviewed. Exam conducted with a real estate agency licensee present. Vitals: Estimated body mass index is 29.83 kg/m as calculated from the following: Height as of 24: 5' 6 . Weight as of this encounter: 184 lb 12.8 oz. BP: 112/62 Patient's last menstrual period was 07/23/2024. ASSESSMENT & PLAN ICD-10-CM 1. Second trimester ([facility]) Z34.92 POCT urinalysis dipstick manually resulted 2. 23 weeks gestation of ([facility]) Z3A.23 POCT urinalysis dipstick manually resulted 3. [...] of: Jack Woods DO documented in this encounterCenterPointe HospitalIrillraojw82-21-5624 History of Present illness Narrative* REKHA Ott [...] 6 hours as needed for nausea. Vit w/Rk-Qyxwnfwob-PB (PNV PO) pyridoxine (VITAMIN B-6) 25 mg, [...] vulgaris Endometriosis History of medical problems Miscarriage ([facility]) Ovarian cyst HISTORY PAST MEDICAL HISTORY SOCIAL HISTORY Past Medical History: Diagnosis Date Acne vulgaris Endometriosis History of medical problems recurrent strep Miscarriage ([facility]) Ovarian cyst Social History Tobacco Use [...] ASSESSMENT & PLAN ICD-10-CM 1. Second trimester ([facility]) Z34.92 POCT urinalysis dipstick manually resulted 2. 19 weeks gestation of ([facility]) Z3A.19 Return OB: Patient presents today for [...] behalf of: REKHA Ott documented in this encounterCenterPointe HospitalPsehjdnwbh89-89-8977 History of Present illness Narrative* Guadalupe Peres [...] nausea or vomiting., Disp: , Rfl: PNV 19-btnr-qphiphmfekqo-dha 29 mg iron-1 mg -350 mg comb [...] TESTS AND ULTRASOUND REPORTS: Referral records and [facility] chart were reviewed Pertinent Ultrasound findings [...] and malignant etiologies. Ref: Gregg Duke., Gregg Casanova.Iams, Irvin D. (Eds.) (2019) Romero's maternal- medicine :principles and practice [place], [place] : [employer]/Elsevier Sonographic diagnosis of ovarian torsion: accuracy and predictive factors. Monica R, Jeff N, Zion N, Sohan-Chelsea G, Bright I. J Ultrasound Med. 2011 Jan;30(9):1205-10. Adnexal masses in : An updated review. Olivia AM, Dorie I, Adelaide KJ, Nory H, A Tanja MN. [facility] J Med. 2017 Feb-Apr;7(4):153-157. doi: 10.4103/ajm.AJM_22_17. PMID: [id number] Uterine fibroids, affecting I reviewed the uterine [...] patient is in complete care of her band splitter. Thank you for allowing me to participate in the care of Daphney Al. If there any questions please do not hesitate to contact us. Guadalupe Peres MD Maternal- Medicine [facility] [address] 1st [place] [address] This document was created with [employer] technology. Though I make every effort to review the dictation as it is transcribed, on occasion the spoken word can be misinterpreted by the technology leading to inappropriate words, phrases, or sentences. This note is addressed to the requesting provider as a consultation for clinical guidance. Specificmedical abbreviations are occasionally used and those are generally approved by the [place]?Board of?Obstetrics and?Gynecology?as well as?Graham chan abbreviations. The above plan of care was based solely on the diagnoses for which a consultation was requested. ?More frequent testing may be indicated based on her other medical/obstetrical conditions. The management of other or medical conditions is beyond the scope of requested consultation and will c ontinue to be followed by the primary band splitter or primary care provider. Note to patient: [...] risk Have you been seen here at [facility] in a previous ? No Recent ER visits or hospitalizations? No Bring blood sugar log or meter with you today? (Please bring them with you for every visit at [facility]) N/A Flu vaccine (Mar-July)? N/A Any concerns that you would like me to mention to the provider today? R calf bruising, +Homans sign, wants to make sure about cysts, feeling nervous about cervix being short, has never been this far along. Right calf = 36.4cm, Left calf = 39.0cm documented in this encounterUC Health06-24-2025 History of Present illness Narrative* Lisa Prasad [...] 6 hours as needed for nausea. Vit w/Ec-Fqqgcuvvx-WF (PNV PO) pyridoxine (VITAMIN B-6) 25 mg, [...] nursing note reviewed. Exam conducted with a real estate agency licensee present. Vitals: Estimated body mass index is 27.02 kg/m as calculated from the following: Height as of 24: 5' 6 . Weight as of this encounter: 167 lb 6.4 oz. BP: 106/68 Patient's last menstrual period was 07/23/2024. ASSESSMENT & PLAN ICD-10-CM 1. Well woman exam with routine gynecological exam Z01.419 Pap Smear 2. Second trimester ([facility]) Z34.92 POCT urinalysis dipstick manually resulted Alpha fetoprotein, maternal Alpha fetoprotein, maternal 3. 15 weeks gestation of ([facility]) Z3A.15 POCT urinalysis dipstick manually resulted Alpha fetoprotein, maternal Alpha fetoprotein, maternal 4. Vaginal discharge N89.8 SURESWAB(R) ADVANCED VAGINITIS PLUS, TMA 5. STD exposure Z20.2 CHLAMYDIA TRACHOMATIS (GENITO/STI) Neisseria gonorrhea DNA probe, direct Return OB/Annual Exam: Patient presents today for a annual exam/routine obstetrics appointment. Patient is currently 30m0gqwizpndb. Patient states she is doing well but [...] of: Jack Woods DO documented in this encounterCenterPointe HospitalAypmuexigt41-55-7459 History of Present illness Narrative* Lisa Prasad [...] 6 hours as needed for nausea. Vit w/Ys-Phjetvgwo-HW (PNV PO) pyridoxine (VITAMIN B-6) 25 mg, [...] nursing note reviewed. Exam conducted with a real estate agency licensee present. Vitals: Estimated body mass index is [...] or undercooked meat, and stay away from [facility]. Patient has been consulted regarding any [...] of: Jack Woods DO documented in this encounterCenterPointe [id number] History of Present illness Narrative* Manjula Elias [...] the following prescription(s): aspirin, omeprazole, ondansetron, vit w/fm-vdiuqawqg-qn, and progesterone. Medical History: Active Ambulatory Problems [...] or undercooked meat, and stay away from [facility]. Patient has also been advised to [...] by: Manjula Elias MA documented in this encounterCenterPointe [id number] History of Present illness Narrative* Lisa Prasad LPN - 04/10/2024 11:10 AM EST Reason for Appointment: Patient ID: Daphney Al is a 24 y.o. female who presents for Infertility Patient presents today for Fertility Follow Up appointment. MEDICATIONS Current Outpatient Medications Medication Instructions aspirin 81 MG oral suspension Vit w/Wm-Xsxgbxpll-CB (PNV PO) ALLERGIES Allergies Allergen Reactions Cephalexin [...] nursing note reviewed. Exam conducted with a real estate agency licensee present. Vitals: Estimated body mass index is [...] Pt voiced understanding. Discussed LAST referral towards [place]. Documented by Lisa Prasad LPN on behalf of: Jack Woods DO documented in this encounterCenterPointe [id number] History of Present illness Narrative* Lisa Prasad LPN - 2024 1:20 PM EDT Reason for Appointment: Patient ID: Daphney Al is a 23 y.o. female who presents for Infertility Patient presents today for Fertility Follow Up appointment. MEDICATIONS Current Outpatient Medications Medication Instructions aspirin 81 MG oral suspension Vit w/Ac-Fwbjrqfzp-AG (PNV PO) ALLERGIES Allergies Allergen Reactions Cephalexin [...] nursing note reviewed. Exam conducted with a real estate agency licensee present. Vitals: Estimated body mass index is [...] of: Jack Woods DO documented in this encounterCenterPointe [id number] Evaluation note* Encounter Date Diagnosis Assessment Notes [...] treatment plan. Patient left in stable condition [employer] Other Evaluation noteNo assessment information available [facility] Work Phone: Evaluation note* Diagnosis Encounter for infertility Hormone disorder Unspecified endocrine disorder documented in this encounter [facility] HealthcareEvaluation [facility]* Diagnosis Female infertility Female infertility of unspecified origin History of miscarriage Personal history of other genital system and obstetric disorders documented in this encounter [facility]* Diagnosis Missed menses , unspecified gestational age Encounter for supervision of normal first in first trimester Gastroesophageal reflux in Nausea and vomiting during documented in this encounter [facility] HealthcareEvaluation note* Diagnosis 11 weeks gestation of First trimester state, incidental Other constipation Gastroesophageal reflux in documented in this encounter [facility]* Diagnosis Adnexal mass- Primary Other specified symptom associated with female genital organs 16 weeks gestation of Uterine fibroids affecting in second trimester Localized swelling of right lower extremity [facility]* Diagnosis Adnexal mass- Primary Other specified symptom associated with female genital organs Uterine fibroids affecting in second trimester Localized swelling of right lower extremity documented [facility]* Diagnosis Well woman exam [...] Description Date Surgical History tonsillectomy Surgical Historylaparoscopy [employer] Other InstructionsNot on filedocumented in this encounter [facility] SystemInstructionsNot on filedocumented in this encounter [facility] SystemReason for referral (narrative)No reason for referral information availableCh[facility] Work Phone: Summary Purpose Family History Relationship Condition Age at Onset Recorded Date/T juliette father Congestive heart failure Unknown Advance Directives TypeDate RecordedPatient RepresentativeExplanationAdvance Directives and Living WillPower of Craft Center Director Advance Directive Response Recorded Date/ Time Advance Directives No August 08 7:47am Advance Directive Response Recorded Date/ Time Advance Directives No August 08 8:47am Discharge Instructions * Instructions* Keyla Leyva MD - 02/01/2019 Follow-up with HARDWARE TEST ENGINEER * Attachments The following attachments cannot be [...] section and content) DATE CREATED AUTHOR 02/01/2019 [facility] DATE CREATED AUTHOR AUTHOR'S ORGANIZ ATION 05/05/2023 [facility] DATE CREATED AUTHOR AUTHOR'S ORGANIZ ATION 11/13/2024 [facility] DATE CREATED AUTHOR AUTHOR'S ORGANIZ ATION 11/13/2024 [facility] DATE CREATED AUTHOR AUTHOR'S ORGANIZ ATION 12/12/2024 [facility] DATE CREATED AUTHOR AUTHOR'S ORGANIZ ATION 01/26/2025 [facility] DATE CREATED AUTHOR AUTHOR'S ORGANIZ ATION 03/14/2025 [facility] EPIC Reason for Visit (unrecogniz ed section and content) ReasonCommentsRoutine VisitSpecialtyDiagnoses / ProceduresReferred By ContactReferred To ContactObstetrics and Gynecology Diagnoses Enlarged & Heterogeneous Bilateral Ovaries 2.3cm Isoechoic Left-sided Lesion Possible Endometrioma Procedures CO UNLISTED EV[employer]UATION [employer] MANAGEMENT SERVICE [facility] [address] [place] [address] Jack Woods DO [address] [place] [address] [place] [address] Phone: tel: fax: Referral IDStatusReasonStart DateExpiration DateVisits RequestedVisits [id number] PainRLQ pain x 1 hourReasonCommentsInfertilityReasonCommentsAmenorrheaReasonCommentsEnlarged & Heterogeneous [...] Active Start: December 02, 2023 End: December 01Adelfo Maria ProviderActiveStart: December 02, 2023 End: December 02, 2023 Team Status: Inactive Member Role Status Dates Zachary Mayes MD Primary Care Provider Active Start: December 05, 2023 End: December 04Mine Munoz ProviderActiveStart: December 05, 2023 End: December 05, 2023 Team Status: Inactive Member Role Status Dates Zachary Mayes MD Primary Care Provider Active Start: December 07, 2023 End: December 06oreashish Peggy , DOAttending ProviderActiveStart: December 07, 2023 End: December 07, 2023 Team Status: Inactive Member Role Status Dates Zachary Mayes MD Primary Care Provider Active Start: December 09, 2023 End: December 08orey Peggy , DOAttending ProviderActiveStart: December 09, 2023 End: December 09, 2023 Team Status: Inactive Member Role Status Dates Zachary Mayes MD Primary Care Provider Active Start: December 20, 2023 End: December 19orey Peggy , DOAttending ProviderActiveStart: December 20, 2023 End: December 20, 2023 Team Status: Inactive Member Role Status Dates Zachary Mayes MD Primary Care Provider Active Start: December 22, 2023 End: December 21orey Peggy , DOAttending ProviderActiveStart: December 22, 2023 End: December 22, 2023 Team Status: Inactive Member Role Status Dates Zachary Mayes MD Primary Care Provider Active Start: December 28, 2023 End: December 27oreashish Altamiranoo , DOAttending ProviderActiveStart: December 28, 2023 End: December 28, 2023 Team Status: Inactive Member Role Status Dates Zachary Mayes MD Primary Care Provider Active Start: January 05, 2024 End: January 04orey Peggy , DOAttending ProviderActiveStart: January 05, 2024 End: January 05, 2024Team MemberRelationshipSpecialtyStart DateEnd Date Alberto Mayes MD [address] [place] [address] [place] [address] PCP - Ebmxyna09/19/23 Paloma Vazquez DO [address] [place] [address] Referring PhysicianObstetrics and Wmsucwegxk31/12/23Team MemberRelationship SpecialtyStart DateEnd [facility] Alberto Mayes MD [address] [place] [id number] [facility]05/02/23 Paloma Vazquez DO [address] [place] [address] Referring PhysicianObstetrics and Rbcnspfunq49/12/23[facility] MemberRelationship SpecialtyStart DateEnd [facility] Alberto Mayes MD [address] [place] [address] [facility]05/02/23 Paloma Vazquez DO [address] [place] [address] Referring PhysicianObstetrics and Kqlunbyesl68/12/23[facility] MemberRelationship SpecialtyStart Date[facility]to Mayes MD [address] [place] [address] [facility]05/02/23 Paloma Vazquez DO [address] [place] [address] Referring PhysicianObstetrics and Xilhjgmdlj41/12/23[facility] MemberRelationship SpecialtyStart DateEnd [facility] Alberto Mayes MD [address] [place] [address] [facility]05/02/23 Paloma Vazquez DO [address] [place] [address] Referring PhysicianObstetrics and Qcjlsyalsp14/12/23Te MemberRelationship SpecialtyStart DateEnd Date Alberto Mayes MD [address] [place] [address] [place] [address] PCP - Ozuknmz02/19/23 Paloma Vazquez DO [address] [place] [address] Referring PhysicianObstetrics and Dvsxjgqfpt38/12/23Te MemberRelationship SpecialtyStart DateEnd [facility] Alberto Mayes MD [address] [place] [address] PCP - Swjpnkk05/19/23 Paloma Vazquez DO [address] [place] [address] Referring PhysicianObstetrics and Gnvgdwpomj76/12/23Te MemberRelationship SpecialtyStart DateEnd Date Alberto Mayes MD [address] [place] [address] PCP - Winvbuq81/19/23 Paloma Vazquez DO [address] [place] [address] Referring PhysicianObstetrics and Raosmntikm53/12/23Te MemberRelationship SpecialtyStart DateEnd Date Alberto Mayes MD [address] [place] [address] PCP - Cjsywsh37/19/23 Paloma Vazquez DO [address] [place] [address] Referring PhysicianObstetrics and Ofmvzadzky96/12/23Team MemberRelationship SpecialtyStart DateEnd Date Alberto Mayes MD [address] [place] [address] PCP - Mqgudud00/19/23 Paloma Vazquez DO [address] [place] [address] Referring PhysicianObstetrics and Adoegvwuol73/12/23 Team Status: Inactive Member Role Status Dates Jack Woods DO Attending Provider Active Start : November 05, 2024 End: November 05, 2024Team MemberRelationshipSpecialtyStart DateEnd Date Alberto Mayes MD [address] [facility] [address] [place] [address] PCP - Jdrywdn26/19/23 Paloma Vazquez DO [address] [facility] [address] [place] [address] Referring PhysicianObstetrics and Txbvvlxrnb39/12/23Team MemberRelationship SpecialtyStart DateEnd Date Alberto Mayes MD PCP - Ruytvne28/19/23Team MemberRelationshipSpecialtyStart DateEnd Date Alberto Mayes MD PCP - Oauunnj43/19/23Team MemberRelationshipSpecialtyStart DateEnd Date Alberto Mayes MD PCP - Nvdpyfo71/19/23Team MemberRelationshipSpecialtyStart DateEnd Date Alberto Mayes MD PCP - Hbqgcsl89/19/23Team MemberRelationshipSpecialtyStart DateEnd Date Alberto Mayes MD PCP - Pcqgsyk85/19/23Team MemberRelationshipSpecialtyStart DateEnd Date Alberto Mayes MD PCP - Weurckc91/19/23Team MemberRelationshipSpecialtyStart DateEnd Date Alberto Mayes MD PCP - Qufkubo76/19/23Team MemberRelationshipSpecialtyStart DateEnd Date Alberto Mayes MD PCP - Gtihawk77/19/23Team MemberRelationshipSpecialtyStart DateEnd Date Alberto Mayes MD PCP - Rvmjkco94/19/23Team MemberRelationshipSpecialtyStart DateEnd Date Alberto Mayes MD PCP - Gtyhofm11/19/23Team MemberRelationshipSpecialtyStart DateEnd Date Alberto Mayes MD PCP - Jafqkcn58/19/23Team MemberRelationshipSpecialtyStart DateEnd Date Alberto Mayes MD PCP - Tlzeupt81/19/23 Goals (unrecognized section and content) Goals may [...] BE BASED ON THE PRIMARY CLINICAL RECORDS. [facility] [employer] [facility]. provides no warranty or guarantee of the accuracy or completeness of information in this document.
[2025-03-19 09:18] VITALS: BP 123/72; PULSE 103
[2025-03-19 09:30] LABS: Glucose Urine UA NEGATIVE (NEGATIVE)
[2025-03-19 09:44] LABS: Cast Seen? NONE SEEN #/LPF (NONE SEEN); Crystals Seen? None Seen #/HPF (None Seen); Urine Culture Indicated YES-LC
--- NOTE | 2025-03-19 10:04 | US_ITS ---
[facility] [place] [id number] Patient Name: KORIN GRADY MRN: [id number] date: 2000 Sex: F Assigned Patient Location: [facility] Current Patient Location: [facility] Accession/Order Number: [id number] Exam Date: 03/19/2025 10:05 Report Date: 03/19/2025 10:57 At the request of: GABY FOX DO Procedure: US OB BPP w non-stress CLINICAL DATA: patient with vaginal bleeding for the past day. ULTRASOUND OB CERVICAL LENGTH The cervix was evaluated with a transvaginal probe. The cervix is closed with estimated length of 5.1 cm. There is no evidence of previa. US/US OB BPP w non-stress IMPRESSION: UNREMARKABLE CLOSED CERVIX. ULTRASOUND OB PLACENTA The placenta is fundal. Appearance is within normal limits. There is no evidence of previa or abruption. IMPRESSION: NO SIGNIFICANT PLACENTAL ABNORMALITIES. BIOPHYSICAL PROFILE: COMPARISON: None There is a single live intrauterine gestation in transverse presentation, head to the maternal right. There is cardiac and somatic activity with heart rate of 139 bpm. The reported gestational age is 34 weeks 1 day. FINDINGS: TONE: 1 or more episodes of activity extension and flexion of extremity or opening and closing of the hand [Y] 2/2 GROSS BODY MOVEMENTS: 3 or more discrete body or limb movements [Y] 2/2 BREATHING MOVEMENTS: 1 or more episodes of breathing lasting at least 30 seconds [Y] 2/2 JHON: A single deepest vertical pocket of amniotic fluid greater than 2 cm [Y] 2/2 JHON: 24.6 cm. The 95th percentile is 24.8 cm. Total score: 8/8 IMPRESSION: NORMAL BIOPHYSICAL PROFILE SCORE. BORDERLINE POLYHYDRAMNIOS. Impression dictated by: Lisa Rojas M.D. 03/19/2025 10:57 AM [facility]ictation [facility] Electronically authenticated by: [id number] Y Date: 03/19/2025 10:57
--- NOTE | 2025-03-19 10:04 | US_ITS ---
[facility] [place] [id number] Patient Name: KORIN GRADY MRN: [id number] date: 2000 Sex: F Assigned Patient Location: [facility] Current Patient Location: [facility] Accession/Order Number: [id number] Exam Date: 03/19/2025 10:05 Report Date: 03/19/2025 10:57 At the request of: GABY FOX DO Procedure: US OB BPP w non-stress CLINICAL DATA: patient with vaginal bleeding for the past day. ULTRASOUND OB CERVICAL LENGTH The cervix was evaluated with a transvaginal probe. The cervix is closed with estimated length of 5.1 cm. There is no evidence of previa. US/US OB placenta IMPRESSION: UNREMARKABLE CLOSED CERVIX. ULTRASOUND OB PLACENTA The placenta is fundal. Appearance is within normal limits. There is no evidence of previa or abruption. IMPRESSION: NO SIGNIFICANT PLACENTAL ABNORMALITIES. BIOPHYSICAL PROFILE: COMPARISON: None There is a single live intrauterine gestation in transverse presentation, head to the maternal right. There is cardiac and somatic activity with heart rate of 139 bpm. The reported gestational age is 34 weeks 1 day. FINDINGS: TONE: 1 or more episodes of activity extension and flexion of extremity or opening and closing of the hand [Y] 2/2 GROSS BODY MOVEMENTS: 3 or more discrete body or limb movements [Y] 2/2 BREATHING MOVEMENTS: 1 or more episodes of breathing lasting at least 30 seconds [Y] 2/2 JHON: A single deepest vertical pocket of amniotic fluid greater than 2 cm [Y] 2/2 JHON: 24.6 cm. The 95th percentile is 24.8 cm. Total score: 8/8 IMPRESSION: NORMAL BIOPHYSICAL PROFILE SCORE. BORDERLINE POLYHYDRAMNIOS. Impression dictated by: Lisa Rojas M.D. 03/19/2025 10:57 AM Dictation Location: [place] [address] Electronically authenticated by: [id number] Y Date: 03/19/2025 10:57
--- NOTE | 2025-03-19 10:04 | US_ITS ---
[facility] [place] [id number] Patient Name: KORIN GRADY MRN: [id number] date: 2000 Sex: F Assigned Patient Location: [facility] Current Patient Location: [facility] Accession/Order Number: [id number] Exam Date: 03/19/2025 10:05 Report Date: 03/19/2025 10:57 At the request of: GABY FOX DO Procedure: US OB BPP w non-stress CLINICAL DATA: patient with vaginal bleeding for the past day. ULTRASOUND OB CERVICAL LENGTH The cervix was evaluated with a transvaginal probe. The cervix is closed with estimated length of 5.1 cm. There is no evidence of previa. US/US OB cervical length IMPRESSION: UNREMARKABLE CLOSED CERVIX. ULTRASOUND OB PLACENTA The placenta is fundal. Appearance is within normal limits. There is no evidence of previa or abruption. IMPRESSION: NO SIGNIFICANT PLACENTAL ABNORMALITIES. BIOPHYSICAL PROFILE: COMPARISON: None There is a single live intrauterine gestation in transverse presentation, head to the maternal right. There is cardiac and somatic activity with heart rate of 139 bpm. The reported gestational age is 34 weeks 1 day. FINDINGS: TONE: 1 or more episodes of activity extension and flexion of extremity or opening and closing of the hand [Y] 2/2 GROSS BODY MOVEMENTS: 3 or more discrete body or limb movements [Y] 2/2 BREATHING MOVEMENTS: 1 or more episodes of breathing lasting at least 30 seconds [Y] 2/2 JHON: A single deepest vertical pocket of amniotic fluid greater than 2 cm [Y] 2/2 JHON: 24.6 cm. The 95th percentile is 24.8 cm. Total score: 8/8 IMPRESSION: NORMAL BIOPHYSICAL PROFILE SCORE. BORDERLINE POLYHYDRAMNIOS. Impression dictated by: Lisa Rojas M.D. 03/19/2025 10:57 AM Dictation Location: [place] [address] Electronically authenticated by: [id number] Y Date: 03/19/2025 10:57
[2025-03-19] MEDS: 0.9 % SODIUM CHLORIDE 1,000 ML 999 ML IV (10:58)
[2025-03-19] MEDS: CLINDAMYCIN PHOSPHATE/D5W 900 MG/50 ML PREMIX 100 MG IV ×2 (10:59→18:45)
--- OUTSIDE RECORDS SUMMARY | 2025-03-19 12:02 | XMS_ITS | CCD ---
Author Organization [facility] Care Team Providers Care Cyber Security Instructor Name Role Phone KEYLA LEYVA Attending Unavailable Unavailable Primary Care Provider Unavailcasimiro Anton Rina Unavailable MD Zachary Mayes Primary Care Provider DO Paloma Vazquez Attending Provider MD Zachary Mayes Primary Care Provider [phone] MD Jackie Reardon Attending Provider [phone] DO Jack Woods Attending Provider [phone] Paloma Vazquez DO Unavailable Gerber NO, Alberto Primary Care Provider Gerber NO, [facility] [place] Primary Care Provider Jack Woods DO Attending [...] of OnsetReaction(s) Facility (20 sources)Cephalexin; Translations: [CEPHALEXIN]Drug Hnnxjel40-89-7543[place] (16 sources)predniSONE; Translations: [PREDNISONE]Drug Jdtpfcq29-82-6100[place] (20 sources)Ciprofloxacin; Translations: [CIPROFLOXACIN]Drug Avqxkrv11-68-1872 [facility], [facility] ([facility])PrednisonePropensity to adverse mktdiyrha34-77-7548Eqbvqv [facility]iting[facility] ([facility] source)CephalexinDrug Ofgpxrs17-57-6389EyojuxreiK[facility] (1 source)predniSONEDrug Pvqgrbk02-20-9782ZflbygpxfKettering Health Behavioral Medical Center Repository Medications Current Medications MedicationDrug Class(es)DatesSig (Normalized)Sig (Original)aspirin 81 mg oral tablet (20 sources)Platelet Aggregation Inhibitor, Nonsteroidal Anti-inflammatory Drug Start: 59-41-6714ufirozd 81 MG oral suspension 10/14/2023 Activeaspirin 81 mg chewable tablet Chew 1 tablet (81 mg total) and swallow in the morning. Active bisacodyl 10 mg rectal suppository (2 sources)Stimulant LaxativeStart: 10-08-2024 End: 26-98-9722fsstwigkr (Dulcolax) 10 MG suppository Indications: Other constipation Insert 1 suppository (10 mg)into the rectum Daily for 4 days 4 suppository 10/08/2024 10/12/2024 Activedocusate sodium 100 mg oral capsule (20 sources) End: 02-42-1445aobz 1 capsule by mouth once dailydocusate sodium (Colace) 100 MG capsule Take 100 mg by mouth Daily 01/16/2025 DiscontinuedDoxylamine Succinate, Sleep, (UNISOM PO) (20 sources) End: 71-71-9384Shxgguxpwt Succinate, Sleep, (UNISOM PO) Take by mouth [...] 0 Activehydrocortisone acetate 25 mg rectal suppository (6 sources)CorticosteroidStart: 03-12-2025 End: 04-11-3903fnnzonlxvorfec (Anusol-HC) 25 MG suppository Indications: Hemorrhoids, unspecified hemorrhoid type Insert 1 suppository (25 mg) into the rectum in the morning and 1 suppository (25 mg) before bedtime. 6 suppository 03/12/2025 Activeibuprofen 600 mg oral tablet (10 sources)Nonsteroidal Anti-inflammatory DrugStart: 12-00-1808iaae 1 tablet by mouth every six hours as needed for painomeprazole 40 mg delayed release oral capsule (20 sources)Proton Pump InhibitorStart: 10-08-2024 End: 65-38-9707tori 1 capsule by mouth before mealtimeomeprazole (PriLOSEC) [address] capsule Indications: Gastroesophageal Reflux Disease , Heartburn Take 1 capsule (40 mg) by mouth in the morning. Take before meals. Do not crush or chew. 30 capsule 3 10/08/2024 01/16/2025 DiscontinuedStart: 09-19-2024 End: 94-64-4150ians 1 capsule by mouth before mealtimeomeprazole (PriLOSEC) [address] capsule Indications: Gastroesophageal Reflux Disease , Heartburn Take 1 capsule (20 mg) by mouth in the morning. Take before meals. Do not crush or chew. 30 capsule 3 09/19/2024 10/08/2024 Discontinued (Reorder)ondansetron 4 mg oral tablet (20 sources)Serotonin-3 Receptor AntagonistStart: 50-33-8494xdcl 1 tablet by mouth every six hours as needed for nausea and vomitingondansetron (Zofran) 4 MG tablet Indications: Gastroesophageal reflux in ([facility]) , Nausea and vomiting during ([facility]) TAKE 1 TABLET BY MOUTH EVERY 6 HOURS NEEDED FOR NAUSEAAND VOMITING 30 tablet 3 03/10/2025 ActiveStart: 35-90-2749rysr 1 tablet by mouth every six hours as needed for nausea and nausea, then take 1 tablet by mouthevery six hours as needed for nausea and nauseaondansetron (Zofran) 4 MG tablet Indications: Gastroesophageal reflux in ([facility]) , Nausea and vomiting during ([facility]) Take 1 tablet (4 mg) by mouth every 6 (six) hours if needed for nausea or vomiting for up to 30 doses Take 1 tablet by mouth every 6 hours as needed for nausea. 30 tablet 3 11/20/2024 ActiveStart: 40-14-8857bhkw 1 tablet by mouth every six hours as needed for nausea and nausea, then take 1 tablet by mouthevery six hours as needed for nausea and nauseaondansetron (Zofran) 4 MG tablet Indications: Gastroesophageal reflux in ([facility]) , Nausea and vomiting during ([facility]) Take 1 tablet (4 mg) by [...] as needed for nausea or vomiting. ActivePNV 18-dyyl-teizztenkdbi-dha 29 mg iron-1 mg -350 mg comb pack,tablet DR,capsule DR (2 sources)take 1 tablet by mouth in the morningPNV 21-ibpj-ityfpwsicsas-dha 29 mg iron-1 mg -350 mg comb pack,tablet DR,capsule DR Take 1 tablet by mouth in the morning. Activepolysaccharide iron complex 391 mg oral capsule (5 sources)Start: 01-07-2025 End: 88-52-1881jxzp 1 capsule by mouth once dailyiron polysaccharides (ProFe) 391.3 (180 Fe) MG capsule Indications: Second trimester ([facility]) Take 1 capsule (391.3 mg) by mouth Daily 30 capsule 6 01/07/2025 01/16/2025 DiscontinuedpredniSONE 20 mg oral tablet (1 source)Start: 89-22-5490tyqn 1 tablet by mouth every twelve hoursprednisone 20 MG 1 tablet Orally BID for 5 Mar, ActivePrenatal Vit w/Fq-Amvazifnk-OU (PNV PO) (20 sources) Vit w/Mn-Aancxzzqd-GY (PNV PO) ActiveProgesterone 200 MG suppository (4 sources)Start: 09-05-2024 End: 60-87-9099Wnnarwnouyyz 200 MG suppository Indications: History of miscarriage Insert 200 mg into the vagina in the morning and 200 mg before bedtime. Do all this for 15 days. 30 suppository 3 09/05/2024 09/20/2024 Active Start: 02-14-2024 End: 39-53-4148Ndzcyeyqyxac 200 MG suppository Indications: History of miscarriage Insert 200 mg into the vagina in the morning and 200 mg before bedtime. 30 suppository 3 02/14/2024 03/15/2024 ActiveStart: 2024 End: 79-36-9710Jthwgjvxgxat 200 MG suppository Indications: History of miscarriage Insert 200 mg into the vagina at bedtime Insert suppository vaginally every night at bedtime until 12 weeks gestation 30 suppository 3 2024 03/07/2024 Activepyridoxine hydrochloride 25 mg oral tablet (20 sources) End: 92-58-1832foyb 1 tablet by mouth once dailypyridoxine (Vitamin B-6) 25 MG tablet Take 25 mg by mouth Daily 01/16/2025 DiscontinuedtraMADol hydrochloride 50 mg oral tablet (10 sources)Opioid AgonistStart: 40-46-6872cgxp 1 tablet by mouth every four to six hours as needed for pain Completed/Discontinued Medications MedicationDrug Class(es)DatesSig (Normalized)Sig (Original)acetaminophen 325 mg / HYDROcodone bitartrate 5 mg oral tablet (1 source)Opioid AgonistStart: 02-01-2019 End: 10-67-8471ACRMGleueca-acetaminophen (NORCO) 5-325 MG per tablet 1 tablet progesterone 200 mg oral capsule (1 source)Progesterone End: 74-72-9761qgnr 1 capsule by mouth in the morningprogesterone (PROMETRIUM) 200 mg capsule Take 1 capsule (200 mg total) by mouth in the morning. 11/12/2024 Discontinued Problems Active Problems Problem ClassificationProblemDateDocumented DateEpisodic/ChronicBenign neoplasm of uterus (2 sources)Leiomyoma of uterus, unspecified; Translations: [Leiomyoma of uterus, unspecified]Onset: 24-55-1625ZhiotfamOgzxgdl dysrhythmias (2 sources)Postural orthostatic tachycardia syndrome ; Translations: [POTS (postural orthostatic tachycardia syndrome)]69-14-3259XhsarhlNpnmjhd dysrhythmias (12 sources)Palpitations; Translations: [Tachycardia]Onset: EpisodicContraceptive and procreative management (4 sources)Patient encounter status; Translations: [Encounter for procreative management, unspecified]03-63-9920SpgditdyRijusxdj mellitus without complication (2 sources)Abnormal glucose tolerance test; Translations: [Other abnormal glucose]07-03-0233ExooewaxFtaznv infertility (2 sources)Female infertility; Translations: [Female infertility, unspecified] 74-34-0750UghciwvQveyjajvsct (2 sources)Hemorrhoids; Translations: [Unspecified hemorrhoids]03-12-2025 EpisodicImmunizations and screening for infectious disease (2 sources)Exposure to sexually transmissible disorder; Translations: [Contact with and (suspected) exposure to infections with a predominantly sexual mode of transmission]29-27-6598TaabkazoIfouqrgtv disorders (2 sources)Missed period; Translations: [Irregular menstruation, unspecified] Onset: 687206-60-6995NwmulnlUxogt complications of (5 sources)Gastroesophageal reflux disease in ; Translations: [Diseases of the digestive system complicating , unspecified trimester] 23-53-6228CbdwqymoMvyce complications of (1 source)Vomiting of , unspecified; Translations: [Unspecified vomiting of , unspecified as to episode of care or not applicable] 27-60-5791EngrfkooJkduu complications of (3 sources)Uterine fibroids affecting ; Translations: [Maternal care for benign tumor of corpus uteri, second trimester]83-64-2201JhrzghghQgrrv complications of (2 sources)Maternal care for benign tumor of corpus uteri, second trimester; Translations: [Maternal care for benign tumor of corpus uteri, second trimester] Onset: 17-88-1249SvakradpXcgsg complications of (2 sources) size does not accord with dates; Translations: [Uterine size- date discrepancy, unspecified trimester]39-46-0996RymwmxfxUgree connective tissue disease (4 sources)Pain in right lower limb; Translations: [Pain in right leg]02-26-2025 EpisodicOther endocrine disorders (2 sources)Disorder of endocrine system; Translations: [Endocrine disorder, unspecified]21-50-2539GgpefbweQuxjj female genital disorders (2 sources)Other specified conditions associated with female genital organs and menstrual cycle; Translations:[Other specified conditions associated with female genital organs and menstrual cycle]Onset: 50-53-3453MeglgcjkBodkl female genital disorders (2 sources)Vaginal discharge; Translations: [Other specified noninflammatory disorders of vagina]66-15-8521RglhivtjQhtuy gastrointestinal disorders (2 sources)Constipation; Translations: [Other constipation]03-62-6881Hrifhaac Other gastrointestinal disorders (4 sources)Mass of uterine adnexa; Translations: [Other specified conditions associated with female genital organs and menstrual cycle]53-89-2513Iicseljj Other and delivery including normal (20 sources); Translations: [Encounter for supervision of normal , unspecified, unspecified trimester]89-29-1482KzupgcifCzmks screening for suspected conditions (not mental disorders or infectious disease) (1 source)Encounter for other specified screening; Translations: [Encounter for other specified screening]Onset: 11-11-6803Trgxzwba Other skin disorders (4 sources)Localized swelling of right lower limb; Translations: [Localized swelling, mass and lump, right lower limb]43-20-6904DgjcqalnFehab skin disorders (2 sources)Localized swelling, mass and lump, right lower limb; Translations: [Localized swelling, mass and lump, right lower limb]Onset: 29-45-2970Jcxszqpw Other upper respiratory infections (2 sources)Acute pharyngitis, unspecified; Translations: [Acute upper respiratory infection, unspecified]EpisodicResidual codes; unclassified (2 sources)H/O: miscarriage; Translations: [Personal history of other complications of , childbirth and the puerperium]56-97-6859Kzdcfmzh Residual codes; unclassified (2 sources)Gestation period, 11 weeks; Translations: [11 weeks gestation of ]78-85-9790GhurdezrHuanhqct codes; unclassified (2 sources)Gestation period, 16 weeks; Translations: [16 weeks gestation of ]49-63-5123PickixywQymlnppp codes; unclassified (1 source)16 weeks gestation of ; Translations: [16 weeks gestation of ]Onset: 12-89-8487FpisglhgVfrzaaos codes; unclassified (2 sources)Gestation period, 15 weeks; Translations: [15 weeks gestation of ]47-75-2822BpykahwlDikwbpzz codes; unclassified (2 sources)Gestation period, 19 weeks; Translations: [19 weeks gestation of ]00-00-1616ZbstjwyiWugylved codes; unclassified (4 sources)Gestation period, 23 weeks; Translations: [23 weeks gestation of ]20-26-0928BgjrtzhrGyxjtvlp codes; unclassified (2 sources)Gestation period, 25 weeks; Translations: [25 weeks gestation of ]72-67-7465IlqayhvkEvlncvah codes; unclassified (2 sources)26 weeks gestation of ; Translations: [26 weeks gestation of ]Onset: 48-42-5753NiifndwiTburfgjt codes; unclassified (2 sources)Gestation period, 27 weeks; Translations: [27 weeks gestation of ]80-84-9203BmudpahuUnxqecjh codes; unclassified (2 sources)Gestation period, 29 weeks; Translations: [29 weeks gestation of ]22-87-1352RbcldwmnAzymzemv codes; unclassified (2 sources)Gestation period, 31 weeks; Translations: [31 weeks gestation of ]37-95-3334SxsajnqmBitsaawb codes; unclassified (2 sources)Gestation period, 33 weeks; Translations: [33 weeks gestation of ]38-68-8596EbkufeytFmlohlu (4 sources)Syncope; Translations: [Syncope and collapse]Onset: 01-24-2025 83-35-8121PusubptaHyfipvvpvpoc (1 source)Enlarged & Heterogeneous Bilateral OvariesOnset: 11-12-2024 Past or Other Problems Problem ClassificationProblemDateDocumented DateEpisodic/ChronicAbdominal pain (1 source)Right lower quadrant pain; Translations: [Abdominal pain, right lower quadrant]EpisodicOther complications of (1 source)Supervision of with other poor reproductive or obstetric history, unspecified trimester; Translations: [Supervision of with other poor reproductive or obstetric history, unspecified trimester]Onset: 97-18-0037CqjmmeqcPqlbi female genital disorders (1 source)H/O gynecological disorder; Translations: [History of ovarian cyst] EpisodicResidual codes; unclassified (1 source)Personal history of other complications of , childbirth and the puerperium; Translations: [Personal history of other complications of , childbirth and the puerperium]Onset: 86-98-6729Gscmgxgb Results Test NameValueInterpretationReference RangeFacilityNo Panel InformationOrdered By: Radiologist Radiology on 63-56-6031[facility] Work Phone: No Panel Informationon 14-85-5462Ovqapepjk Study observation (narrative)[facility] HealthcareUS OB CERVICAL LENGTHon 02-96-[place]35[place] [address] Ultrasound Report Signed Patient: DAPHNEY GRADY MR#: [id number] : 2000 Acct:[id number] Age/Sex: 25 / F ADM Date: Loc: [facility] Attending Dr: Jack Woods D.O. Ordering Physician: Peggy,Jack D.O. Date of Service: 03/19/25 Procedure(s): US OB cervical length Accession Number(s): [id number] cc: Alberto Mayes M.D.; Jack Woods D.O. [address] [address] Patient Name: DAPHNEY GRADY MRN: [id number] date: 2000 Sex: F Assigned Patient Location: [facility] Current Patient Location: [facility] Accession/Order Number: [id number] Exam Date: 03/19/2025 10:05 Report Date: 03/19/2025 10:57 At the request of: JACK WOODS DO Procedure: US OB BPP w non-stress CLINICAL DATA: patient with vaginal bleeding for the past day. ULTRASOUND OB CERVICAL LENGTH The cervix was evaluated with a transvaginal probe. The cervix is closed with estimated length of 5.1 cm. There is no evidence of previa. US/US OB cervical length IMPRESSION: UNREMARKABLE CLOSED CERVIX. ULTRASOUND OB PLACENTA The placenta is fundal. Appearance is within normal limits. There is no evidence of previa or abruption. IMPRESSION: NO SIGNIFICANT PLACENTAL ABNORMALITIES. BIOPHYSICAL PROFILE: COMPARISON: None There is a single live intrauterine gestation in transverse presentation, head to the maternal right. There is cardiac and somatic activity with heart rate of 139 bpm. The reported gestational age is 34 weeks 1 day. FINDINGS: TONE: 1 or more episodes of activity extension and flexion of extremity or opening and closing of the hand [Y] 2/2 GROSS BODY MOVEMENTS: 3 or more discrete body or limb movements [Y] 2/2 BREATHING MOVEMENTS: 1 or more episodes of breathing lasting at least 30 seconds [Y] 2/2 JHON: A single deepest vertical pocket of amniotic fluid greater than 2 cm [Y] 2/2 JHON: 24.6 cm. The 95th percentile is 24.8 cm. Total score: 8/8 IMPRESSION: NORMAL BIOPHYSICAL PROFILE SCORE. BORDERLINE POLYHYDRAMNIOS. Impression dictated by: Lisa Rojas M.D. 03/19/2025 10:57 AM Dictation Location: [place] [address] Electronically authenticated by: [id number] Y Date: 03/19/2025 10:57 Dictated By: Lisa Rojas M.D. Signed By: 03/19/25 1100 DD/ 1057 TD/TT: Director Digital:ESTEFANYadiologashish, Radiologist, - 03/19/2025 [place] [address] Ultrasound Report Signed Patient: DAPHNEY GRADY MR#: [id number] : 2000 Acct:[id number] Age/Sex: 25 / F ADM Date: Loc: [facility] 250-[address]: Jack Woods D.O. Ordering Physician: Jack Woods D.O. Date of Service: 03/19/25 Procedure(s): US OB cervical length Accession Number(s): [id number] cc: Alberto Mayes M.D.; Jack Woods D.O. [place] [address] Patient Name: DAPHNEY GRADY MRN: [id number] date: 2000 Sex: F Assigned Patient Location: [facility] Current Patient Location: [facility] Accession/Order Number: [id number] Exam Date: 03/19/2025 10:05 Report Date: 03/19/2025 10:57 At the request of: JACK WOODS DO Procedure: US OB BPP w non-stress CLINICAL DATA: patient with vaginal bleeding for the past day. ULTRASOUND OB CERVICAL LENGTH The cervix was evaluated with a transvaginal probe. The cervix is closed with estimated length of 5.1 cm. There is no evidence of previa. US/US OB cervical length IMPRESSION: UNREMARKABLE CLOSED CERVIX. ULTRASOUND OB PLACENTA The placenta is fundal. Appearance is within normal limits. There is no evidence of previa or abruption. IMPRESSION: NO SIGNIFICANT PLACENTAL ABNORMALITIES. BIOPHYSICAL PROFILE: COMPARISON: None There is a single live intrauterine gestation in transverse presentation, head to the maternal right. There is cardiac and somatic activity with heart rate of 139 bpm. The reported gestational age is 34 weeks 1 day. FINDINGS: TONE: 1 or more episodes of activity extension and flexion of extremity or opening and closing of the hand [Y] 2/2 GROSS BODY MOVEMENTS: 3 or more discrete body or limb movements [Y] 2/2 BREATHING MOVEMENTS: 1 or more episodes of breathing lasting at least 30 seconds [Y] 2/2 JHON: A single deepest vertical pocket of amniotic fluid greater than 2 cm [Y] 2/2 JHON: 24.6 cm. The 95th percentile is 24.8 cm. Total score: 8/8 IMPRESSION: NORMAL BIOPHYSICAL PROFILE SCORE. BORDERLINE POLYHYDRAMNIOS. Impression dictated by: Lisa Rojas M.D. 03/19/2025 10:57 AM Dictation Location: [place] [address] Electronically authenticated by: [id number] Y Date: 03/19/2025 10:57 Dictated By: Lisa Rojas M.D. Signed By: 03/19/251099 DD/ 105 TD/TT: Director Digital: RIMMA Looney OB BPP W NON-STRESSon 08-36-4676[place]aw[place], [place] [address] Ultrasound Report Signed Patient: DAPHNEY GRADY MR#: [id number] : 2000 Acct:[id number] Age/Sex: 25 / F ADM Date: Loc: [facility] Attending Dr: Jack Woods D.O. Ordering Physician: Jack Woods D.O. Date of Service: 03/19/25 Procedure(s): US OB BPP w non-stress Accession Number(s): [id number] cc: Alberto Mayes M.D.; Jack Woods D.O. [place] [address] Patient Name: DAPHNEY GRADY MRN: [id number] date: 2000 Sex: F Assigned Patient Location: [facility] Current Patient Location: [facility] Accession/Order Number: [id number] Exam Date: 03/19/2025 10:05 Report Date: 03/19/2025 10:57 At the request of: JACK WOODS DO Procedure: US OB BPP w non-stress CLINICAL DATA: patient with vaginal bleeding for the past day. ULTRASOUND OB CERVICAL LENGTH The cervix was evaluated with a transvaginal probe. The cervix is closed with estimated length of 5.1 cm. There is no evidence of previa. US/US OB BPP w non-stress IMPRESSION: UNREMARKABLE CLOSED CERVIX. ULTRASOUND OB PLACENTA The placenta is fundal. Appearance is within normal limits. There is no evidence of previa or abruption. IMPRESSION: NO SIGNIFICANT PLACENTAL ABNORMALITIES. BIOPHYSICAL PROFILE: COMPARISON: None There is a single live intrauterine gestation in transverse presentation, head to the maternal right. There is cardiac and somatic activity with heart rate of 139 bpm. The reported gestational age is 34 weeks 1 day. FINDINGS: TONE: 1 or more episodes of activity extension and flexion of extremity or opening and closing of the hand [Y] 2/2 GROSS BODY MOVEMENTS: 3 or more discrete body or limb movements [Y] 2/2 BREATHING MOVEMENTS: 1 or more episodes of breathing lasting at least 30 seconds [Y] 2/2 JHON: A single deepest vertical pocket of amniotic fluid greater than 2 cm [Y] 2/2 JHON: 24.6 cm. The 95th percentile is 24.8 cm. Total score: 8/8 IMPRESSION: NORMAL BIOPHYSICAL PROFILE SCORE. BORDERLINE POLYHYDRAMNIOS. Impression dictated by: Lisa Rojas M.D. 03/19/2025 10:57 AM Dictation Location: [place] [address] Electronically authenticated by: [id number] Y Date: 03/19/2025 10:57 Dictated By: Lisa Rojas M.D. Signed By: 03/19/25 1100 DD/ 1057 TD/TT: Director Digital:TBHRadiology, Radiologist, - 03/19/2025 [place] [address] Ultrasound Report Signed Patient: DAPHNEY GRADY MR#: [id number] : 2000 Acct:[id number] Age/Sex: 25 / F ADM Date: Loc: [facility] 250- Attending Dr: Jack Woods D.O. Ordering Physician: Jack Woods D.O. Date of Service: 03/19/25 Procedure(s): US OB BPP w non-stress Accession Number(s): [id number] cc: Alberto Mayes M.D.; Jack Woods D.O. [address] [address] Patient Name: DAPHNEY GRADY MRN: [id number] date: 2000 Sex: F Assigned Patient Location: [facility] Current Patient Location: [facility] Accession/Order Number: [id number] Exam Date: 03/19/2025 10:05 Report Date: 03/19/2025 10:57 At the request of: JACK WOODS DO Procedure: US OB BPP w non-stress CLINICAL DATA: patient with vaginal bleeding for the past day. ULTRASOUND OB CERVICAL LENGTH The cervix was evaluated with a transvaginal probe. The cervix is closed with estimated length of 5.1 cm. There is no evidence of previa. US/US OB BPP w non-stress IMPRESSION: UNREMARKABLE CLOSED CERVIX. ULTRASOUND OB PLACENTA The placenta is fundal. Appearance is within normal limits. There is no evidence of previa or abruption. IMPRESSION: NO SIGNIFICANT PLACENTAL ABNORMALITIES. BIOPHYSICAL PROFILE: COMPARISON: None There is a single live intrauterine gestation in transverse presentation, head to the maternal right. There is cardiac and somatic activity with heart rate of 139 bpm. The reported gestational age is 34 weeks 1 day. FINDINGS: TONE: 1 or more episodes of activity extension and flexion of extremity or opening and closing of the hand [Y] 2/2 GROSS BODY MOVEMENTS: 3 or more discrete body or limb movements [Y] 2/2 BREATHING MOVEMENTS: 1 or more episodes of breathing lasting at least 30 seconds [Y] 2/2 JHON: A single deepest vertical pocket of amniotic fluid greater than 2 cm [Y] 2/2 JHON: 24.6 cm. The 95th percentile is 24.8 cm. Total score: 8/8 IMPRESSION: NORMAL BIOPHYSICAL PROFILE SCORE. BORDERLINE POLYHYDRAMNIOS. Impression dictated by: Lisa Rojas M.D. 03/19/2025 10:57 AM Dictation Location: [place] [address] Electronically authenticated by: [id number] Y Date: 03/19/2025 10:57 Dictated By: Lisa Rojas M.D. Signed By: 03/19/25 1100 DD/ 1057 TD/TT: Director Digital: RIMMA HOPE PLACENTAon 81-62-6779[place]st[place] [address] Ultrasound Report Signed Patient: DAPHNEY GRADY MR#: [id number] : 2000 Acct:[id number] Age/Sex: 25 / F ADM Date: Loc: [facility] 250-[address]: Jack Woods D.O. Ordering Physician: Jack Woods D.O. Date of Service: 03/19/25 Procedure(s): US OB placenta Accession Number(s): [id number] cc: Alberto Mayes M.D.; Jack Woods D.O. [place] [address] Patient Name: DAPHNEY GRADY MRN: [id number] date: 2000 Sex: F Assigned Patient Location: [facility] Current Patient Location: [facility] Accession/Order Number: [id number] Exam Date: 03/19/2025 10:05 Report Date: 03/19/2025 10:57 At the request of: JACK WOODS DO Procedure: US OB BPP w non-stress CLINICAL DATA: patient with vaginal bleeding for the past day. ULTRASOUND OB CERVICAL LENGTH The cervix was evaluated with a transvaginal probe. The cervix is closed with estimated length of 5.1 cm. There is no evidence of previa. US/US OB placenta IMPRESSION: UNREMARKABLE CLOSED CERVIX. ULTRASOUND OB PLACENTA The placenta is fundal. Appearance is within normal limits. There is no evidence of previa or abruption. IMPRESSION: NO SIGNIFICANT PLACENTAL ABNORMALITIES. BIOPHYSICAL PROFILE: COMPARISON: None There is a single live intrauterine gestation in transverse presentation, head to the maternal right. There is cardiac and somatic activity with heart rate of 139 bpm. The reported gestational age is 34 weeks 1 day. FINDINGS: TONE: 1 or more episodes of activity extension and flexion of extremity or opening and closing of the hand [Y] 2/2 GROSS BODY MOVEMENTS: 3 or more discrete body or limb movements [Y] 2/2 BREATHING MOVEMENTS: 1 or more episodes of breathing lasting at least 30 seconds [Y] 2/2 JHON: A single deepest vertical pocket of amniotic fluid greater than 2 cm [Y] 2/2 JHON: 24.6 cm. The 95th percentile is 24.8 cm. Total score: 8/8 IMPRESSION: NORMAL BIOPHYSICAL PROFILE SCORE. BORDERLINE POLYHYDRAMNIOS. Impression dictated by: Lisa Rojas M.D. 03/19/2025 10:57 AM Dictation Location: [place] [address] Electronically authenticated by: [id number] Y Date: 03/19/2025 10:57 Dictated By: Lisa Rojas M.D. Signed By: 03/19/251099 DD/ 56 TD/TT: Director Digital:ESTEFANYadiologashish, Radiologist, - 03/19/2025 [place] [address] Ultrasound Report Signed Patient: DAPHNEY GRADY MR#: [id number] : 2000 Acct:[id number] Age/Sex: 25 / F ADM Date: Loc: [facility] Attending Dr: Jack Woods D.O. Ordering Physician: Jack Woods D.O. Date of Service: 03/19/25 Procedure(s): US OB placenta Accession Number(s): [id number] cc: Alberto Mayes M.D.; Jack Woods D.O. [place] [address] Patient Name: DAPHNEY GRADY MRN: [id number] date: 2000 Sex: F Assigned Patient Location: [facility] Current Patient Location: [facility] Accession/Order Number: [id number] Exam Date: 03/19/2025 10:05 Report Date: 03/19/2025 10:57 At the request of: JACK WOODS DO Procedure: US OB BPP w non-stress CLINICAL DATA: patient with vaginal bleeding for the past day. ULTRASOUND OB CERVICAL LENGTH The cervix was evaluated with a transvaginal probe. The cervix is closed with estimated length of 5.1 cm. There is no evidence of previa. US/US OB placenta IMPRESSION: UNREMARKABLE CLOSED CERVIX. ULTRASOUND OB PLACENTA The placenta is fundal. Appearance is within normal limits. There is no evidence of previa or abruption. IMPRESSION: NO SIGNIFICANT PLACENTAL ABNORMALITIES. BIOPHYSICAL PROFILE: COMPARISON: None There is a single live intrauterine gestation in transverse presentation, head to the maternal right. There is cardiac and somatic activity with heart rate of 139 bpm. The reported gestational age is 34 weeks 1 day. FINDINGS: TONE: 1 or more episodes of activity extension and flexion of extremity or opening and closing of the hand [Y] 2/2 GROSS BODY MOVEMENTS: 3 or more discrete body or limb movements [Y] 2/2 BREATHING MOVEMENTS: 1 or more episodes of breathing lasting at least 30 seconds [Y] 2/2 JHON: A single deepest vertical pocket of amniotic fluid greater than 2 cm [Y] 2/2 JHON: 24.6 cm. The 95th percentile is 24.8 cm. Total score: 8/8 IMPRESSION: NORMAL BIOPHYSICAL PROFILE SCORE. BORDERLINE POLYHYDRAMNIOS. Impression dictated by: Lisa Rojas M.D. 03/19/2025 10:57 AM Dictation Location: [place] [address] Electronically authenticated by: [id number] Y Date: 03/19/2025 10:57 Dictated By: Lisa Rojas M.D. Signed By: 03/19/25 1100 DD/ 1057 TD/TT: Director Digital: RIMMA [place] CBC WITH AUTO DIFFon 98-18-6538OMGDXKRCN ABSOLUTE AUTO0.1NOMS HealthcareBasophils/100 WBC (Bld)0.5 %0.2 - 2.0 %NOMS HealthcareEosinophils/100 WBC (Bld)0.8 %Low0.9 - 7.0 %NOMS HealthcareErythrocyte distribution width (RBC) [Ratio]12.7 %11.0 - 15.0 %NOMS HealthcareHematocrit (Bld) [Volume fraction]29.8 %Low36.0 - 48.0 %NOMS HealthcareHemoglobin (Bld) [Mass/Vol]10.0 g/dLLow12.0 - 16.0 g/dLTwo Rivers Psychiatric HospitalIMMATURE GRANULOCYTES ABS AUTO0.19HighTwo Rivers Psychiatric Hospital Immature granulocytes/100 WBC (Bld)1.9 %High0.0 - 0.5 %[facility] Interpretation and review of laboratory resultsAbnoSpecial Care Hospital LYMPHOCYTES ABSOLUTE AUTO1.7[facility] Psychiatric HospitalLymphocytes/100 WBC (Bld)17.1 %Low 20.5 - 60.0 %[facility] CenterH (RBC) [Entitic mass]29.7 pg26.7 - 34.0 pgOzarks Medical CenterHC (RBC) [Mass/Vol]33.6 g/dL29.9 - 35.2 g/dLOzarks Medical CenterV (RBC) [Entitic vol]88.4 fL81.0 - 99.0 fLTwo Rivers Psychiatric HospitalMONOCYTES ABSOLUTE AUTO0.8NOSt. Joseph Medical CenterMonocytes/100 WBC (Bld)7.5 %1.7 - 12.0 %[facility] HospitalNEUTROPHILS ABSOLUTE AUTO7.3HighTwo Rivers Psychiatric HospitalNeutrophils/100 WBC (Bld)72.2 %43.0 - 75.0 % [facility] Psychiatric HospitalPlatelet mean volume (Bld) [Entitic vol]9.7 fL9.5 - 13.5 fLTwo Rivers Psychiatric HospitalTB EO #0.1NOMS [facility] HospitalTB OEY978XIEPCrossroads Regional Medical Center RBC3.37LowNOCrossroads Regional Medical Center WBC10.0NOSt. Joseph Medical CenterCLINISYNCNRusk Rehabilitation CenterUrinalysis macro (dipstick) panel (U)on 16-87-8513Sulnbqcli, UANegativeNegative - 4(70) +++ mg/dL [facility] HospitalBlood, UANegativeNegative - 50 Clarke/mcLSANPETE VALLEY [facility]OSPITAL HealthcareClarity, UA ClearNOOK HealthcareColor, UAYellowNOOK HealthcareGlucose, UANegativeNegative - 2000(110) ++++ mg/dLTwo Rivers Psychiatric HospitalInterpretation and review of laboratory resultsAbnormHospital of the University of PennsylvaniaKetones, UANegativeNegative - 160(16) ++++ mg/dL [facility] HospitalLeukocytes, UAPositiveNegative - 500+++ Kamaljit/mcLSANPETE VALLEY HOSPITAL Healthcare Comment on above:2+Nitrite, UANegativeNegative - PositiveNOMS HealthcarepH, UA 8.05 - 9NOMS HealthcareProtein, UANegativeNegative - 1999(20) ++++ mg/dLNOMS HealthcareSpec Grav, UA1.0101 - 1.03NOMS HealthcareUrobilinogen, UA0.20.2 - 12 mg/dLNOMS HealthcareNOMS HealthcareUS OB FOLLOW UP TRANSABDOMINAL APPROACHon 51-38-0184MO OB FOLLOW UP TRANSABDOMINAL APPROACHFINDINGS: A single, [...] Delivery: 04/29/25 Gestational Age as of 02/11/2025: 24x9tJdtplapbpa macro (dipstick) panel (U)on 62-83-0664Fhqrimush, UANegativeNegative - 4(70) +++ mg/dLNOMS HealthcareBlood, UANegativeNegative [...] HealthcareNOMS Healthcare Urinalysis macro (dipstick) panel (U)on 85-16-0165Mxrpjbdoi, UANegativeNegative - 4(70) +++ mg/dLNOMS HealthcareBlood, UANegativeNegative [...] 12 mg/dLNOMS HealthcareNOMS HealthcareGLUCOSE TOLERANCE 3 HOURon 71-82-3651WCPLMTR TOLERANCE 3 HOURmg/dLNOMS HealthcareComment on above:GLU FAST [...] ++++ mg/dLNOMS HealthcareInterpretation and review of laboratory resultsAbnormalNOOK Healthcare Ketones, UANegativeNegative - 160(16) ++++ mg/dLNOMS HealthcareLeukocytes, UA PositiveNegative - 500+++ Kamaljit/mcLNOMS HealthcareComment on above:3+Nitrite, UA NegativeNegative - PositiveNOMS HealthcarepH, UA6.55 - 9NOMS HealthcareProtein, UANegativeNegative - 2000(20) ++++ mg/dLNOMS HealthcareSpec Grav, UA1.011 - 1.03 NOMS HealthcareUrobilinogen, UA0.20.2 - 12 mg/dLNOOK HealthcareNOOK Healthcare GLUCOSE 1 HOURon 75-82-8428Adzzooy [Mass/Vol]150 mg/dLHighNINF - 130 mg/dLNOMS HealthcareInterpretation and review of laboratory resultsAbnormalNOOK Healthcare CLINISYNCNOOK HealthcareOffice Visiton 59-26-0286Chwnyc-up [id number] Daphney Al 2000 F Date Provider Department Center 01/24/2025 35058-FEOYAYKAY [place] HANNAH [facility] Family History Problem Relation Age of Onset Hypertension Father Family Status - Relation Status Age at Mother Alive Father Alive Level of Service:39465 MI OFFICE/OUTPATIENT NEW LOW MDM 30 MINUTES Reason for Visit and Comments: New Patient [632] - Patient is here today as a new patient to establish care with cariology Syncope [506] Palpitations [424016] 26 weeks [Other][facility] CenterCA ECHO DOPPLER COMPLETEon 32-73-9501[address] [address] Cardiology Report Signed Patient: DAPHNEY AL MR#: [id number] : 2000 Acct:[id number] Age/Sex: 24 / F ADM Date: 01/20/25 Loc: CARD Attending Dr: Jayla Art Ordering Physician: Jayla Art Date of Service: 01/20/25 Procedure(s): CA echo doppler complete Accession Number(s): [id number] cc: Jayla Art; Alberto Mayes M.D. Patient Name: DAPHNEY AL MR#: [id number] : 2000 Exam Date: 01/20/2025 Ordering Doctor: [...] Marie M.D. Signed By: 01/21/2559 DD/ TD/TT: Director Digital:TBHRadiology, Radiologist, - 01/21/2025 [place] [address] Cardiology Report Signed Patient: DAPHNEY AL MR#: [id number] : 2000 Acct:[id number] Age/Sex: 24 / F ADM Date: 01/20/25 Loc: CARD Attending Dr: Jayla Art Ordering Physician: Jayla Art Date of Service: 01/20/25 Procedure(s): CA echo doppler complete Accession Number(s): [id number] cc: Jayla Art; Alberto Mayes M.D. Patient Name: DAPHNEY AL MR#: [id number] : 2000 Exam Date: 01/20/2025 Ordering Doctor: [...] M.D. Signed By: 01/21/25958 DD/ 7 TD/TT: Director Digital: [facility] Psychiatric HospitalRadiology Study observation (narrative)[facility] ECHO DOPPLER COMPLETEOrdered By: Radiologist Radiology on 94-13-9341TRGXTwo Rivers Psychiatric Hospital Work Phone: Urinalysis macro (dipstick) panel (U)on 01-16-2025 Bilirubin, UANegativeNegative - 4(70) +++ mg/dLNOMS HealthcareBlood, UAPositive Negative - 50 Clarke/mcLNOMS HealthcareComment on above:3+Clarity, UAClearNOOK HealthcareColor, UAYellowNOMS HealthcareGlucose, UANegativeNegative - 1999(110) ++++ mg/dLNOOK HealthcareInterpretation and review of laboratory resultsAbnormal [facility] HealthcareKetones, UANegativeNegative - 160(16) ++++ mg/dLNOOK Healthcare Leukocytes, UAPositiveNegative - 500+++ Kamaljit/mcLNOMS HealthcareComment [...] HealthcareNOMS Healthcare Urinalysis macro (dipstick) panel (U)on 23-62-4033Zmaongrug, UANegativeNegative - 4(70) +++ mg/dLNOMS HealthcareBlood, UANegativeNegative - 50 Clarke/mcLNOMS HealthcareClarity, UAClearNOMS HealthcareColor, UAYellowNOMS HealthcareGlucose, UANegativeNegative - 2000(110) ++++ mg/dLNOMS HealthcareInterpretation and review of laboratory resultsAbnormalNOMS HealthcareKetones, UANegativeNegative - 160(16) ++++ mg/dLNOMS HealthcareLeukocytes, UANegativeNegative - 500+++ Kamaljit/mcLNOOK HealthcareNitrite, UANegativeNegative - PositiveNOMS HealthcarepH, UA65 - 9NOMS HealthcareProtein, UANegativeNegative - 2000(20) ++++ mg/dLNOMS HealthcareSpec Grav, UA1.011 - 1.03NOMS HealthcareUrobilinogen, UA1.00.2 - 12 mg/dLNOMS HealthcareNOMS HealthcareUrinalysis macro (dipstick) panel (U)on 39-77-0070Ispqrkcax, UANegativeNegative - 4(70) +++ mg/dLNOMS HealthcareBlood, UANegativeNegative - 50 Clarke/mcLNOMS HealthcareClarity, UAClearNOMS Healthcare Color, UAYellowNOOK HealthcareGlucose, UANegativeNegative - 2000(110) ++++ mg/dL [facility] HealthcareInterpretation and review of laboratory resultsAbnormalNOMS HealthcareKetones, UANegativeNegative - 160(16) ++++ mg/dLSANPETE VALLEY HOSPITAL Healthcare Leukocytes, UAPositiveNegative - 500+++ Kamaljit/mcLSANPETE VALLEY HOSPITAL HealthcareComment on above: SmallNitrite, UANegativeNegative - PositiveNOMS HealthcarepH, UA75 - 9NOMS HealthcareProtein, UANegativeNegative - 2000(20) ++++ mg/dLSANPETE VALLEY HOSPITAL HealthcareSpec Grav, UA1.011 - 1.03NOOK HealthcareUrobilinogen, UA1.00.2 - 12 mg/dLNOSt. Joseph Medical CenterNOOK HealthcareFetal Free Cell DNA (Non-[facility] Send Out)on 81-12-0857FpaMguszk Health SystemPATHOLOGY REQUEST FOR LAB CORPon 11-12-2024 PATHOLOGY REQUEST FOR LAB CORPSANPETE VALLEY HOSPITAL HealthcareComment on above:See report. Scanned copy available in EMR.SKIN TAGFIRELANDSSANPETE VALLEY HOSPITAL HealthcareIGP,APTIMA HPV,AGE GDLNon 57-78-0599IIQ GDLN ACOG TESTINGNote.[facility] HealthcareComment on above: TESTS RESULT FLAG UNITS REF RANGE LAB Clinician Provided Cytology Information Source.............Cervix No. of containers..01 ThinPrep Vial Age Algo ACOG Nery... -12 06 FLAG LEGEND: L-Low Normal,H-High Normal,LL-Alert Low,HH-Alert High <-Panic Low,>-Panic High,A-Abnormal,AA-Critical Abnormal Performed at: 01 =G [facility] [place] [address] Gypsy Mtz MD, IGP, RFX APTIMA HPV ASCUNote.NOMS HealthcareComment on above:TESTS RESULT FLAG UNITS REF RANGE LAB DIAGNOSIS: 02 NEGATIVE FOR INTRAEPITHELIAL LESION OR MALIGNANCY. THIS SPECIMEN WAS RESCREENED PART OF OUR FARMWORKER GRAIN PROGRAM. Specimen adequacy: 02 Satisfactory for evaluation. Endocervical and/or squamous metaplastic cells (endocervical component) are present. Performed by: 02 Felicity Rosen, Station Cashier (ASCP) QC reviewed by: 02 Esme Mahoney, Station Cashier (ASCP) . 02 Note: Note 02 The [...] <-Panic Low,>-Panic High,A-Abnormal,AA-Critical Abnormal Performed at: [address] [address] Gypsy Mtz MD, Performed at: = - [facility] [address] [id number] Claims Counsel: Gypsy Mtz MD, Phone: [phone] Performed at: - [facility] [id number] Claims Counsel: Gypsy Mtz MD, Phone: [phone] SPATULA-ALONE CERVIX CLINISYNCNOMS HealthcareRECURRENT VAGINITIS (HTRX)on 53-33-3628JPFOQJIXT VAGINAE 0NOMS HealthcareATOPOBIUM VAGINAENot detectedNOMS HealthcareBVAB 2,3 (BACTERIAL VAGINOSIS ASSOCIATED BACTERIA 2, 3); MOBILUNCUS ISG6WJDN HealthcareBVAB 2,3 (BACTERIAL VAGINOSIS ASSOCIATED BACTERIA 2, 3); MOBILUNCUS SPPNot detectedNOMS HealthcareCANDIDA ALBICANS, PARAPSILOSIS, XHEYEVCYCV5LYGM HealthcareCANDIDA ALBICANS, PARAPSILOSIS, TROPICALISNot detectedNOMS HealthcareCANDIDA GLABRATA0 NOMS HealthcareCANDIDA GLABRATANot detectedNOMS HealthcareCANDIDA KTPXKO9DGCW HealthcareCANDIDA KRUSEINot detectedNOMS HealthcareCHLAMYDIA FCQBNNOAPXR3HMJH HealthcareCHLAMYDIA TRACHOMATISNot detectedNOMS HealthcareGARDNERELLA VAGINALIS0 NOMS HealthcareGARDNERELLA VAGINALISNot detectedNOMS HealthcareMEGASPHAERA (TYPES 1, 2)0NOMS HealthcareMEGASPHAERA (TYPES 1, 2)Not detectedNOMS Healthcare MYCOPLASMA TGOYGMOCSJ0LCWD HealthcareMYCOPLASMA GENITALIUMNot detectedNOMS HealthcareNEISSERIA IICZPVTQTQD4AUKY HealthcareNEISSERIA GONORRHOEAENot detected NOMS HealthcareTRICHOMONAS EPASBJSFR1FTHK HealthcareTRICHOMONAS VAGINALISNot detectedNOMS HealthcareNOMS HealthcarePathology Request for Lab Corpon 61-16-9949Xhqaoigfu Request for Lab [facility] Comment on above:Order Comment: SKIN TAGResult Comment: See report. Scanned copy available in EMR. PERFORMED BY: [facility] [address] PATHOLOGIST TELEVISION NEWS PRODUCER JOSUÉ VALENZUELA M.D.Performed By: #### PROG #### [facility] ,Urinalysis macro (dipstick) panel (U)on 59-69-6706Qqeztmisn, UANegativeNegative - 4(70) +++ mg/dLNOMS HealthcareBlood, UANegativeNegative [...] mg/dLNOMS HealthcareNOMS HealthcareUrinalysis macro (dipstick) panel (U)on 21-46-5242Dgsqtkenm, UANegativeNegative - 4(70) +++ mg/dLNOMS HealthcareBlood, UANegativeNegative - 50 Clarke/mcLNOMS HealthcareClarity, UAClearNOMS Healthcare Color, UAYellowNOMS HealthcareGlucose, UANegativeNegative - 2000(110) ++++ mg/dL NOMS HealthcareInterpretation and review of laboratory resultsAbnormalNOMS HealthcareKetones, UANegativeNegative - 160(16) ++++ mg/dLNOMS Healthcare Leukocytes, UATraceNegative - 500+++ Kamaljit/mcLNOMS HealthcareNitrite, UANegative Negative - PositiveNOMS HealthcarepH, UA65 - 9NOMS HealthcareProtein, UANegative Negative - 1999(20) ++++ mg/dLNOOK HealthcareSpec Grav, UA1.021 - 1.03NOOK HealthcareUrobilinogen, UA0.20.2 - 12 mg/dLNOSt. Joseph Medical CenterNOOK HealthcareMLR HEMOGLOBIN A1Con 44-23-7687Vqivdvf [Mass/Vol]100 mg/dLTwo Rivers Psychiatric HospitalHbA1c (Bld) [Mass fraction]5.1 %4.5 - 6.2 %NOMS HealthcareComment on above:ADA RECOMMENDED LIMIT 4.0 - 6.0 ADA THERAPEUTIC TARGET < 7.0 ACTION SUGGESTED > 7.0 CLINISYNCNOOK HealthcareHCG ( test) Ql (U)on 79-76-7033Cbogxkvfudxggb and review of laboratory resultsAbnormalNOOK HealthcarePreg Test, UrPositive NegativeNOLee's Summit Hospital HealthcareUS OB TRANSVAGINALon 79-24-5123WJ OB TRANSVAGINALEXAM: US OB TRANSVAGINAL HISTORY: Dating/viability. [...] II, MD, PHD at 22-Sep-2024 08:21:31 PM [facility] TeleradiologyNormalNot AvailableComment on above:Order Comment: US OB TRANSVAGINAL No LMP recorded.Urinalysis macro (dipstick) panel (U)on 46-85-3214Mrvxhpbfr, UA NegativeNegative - 4(70) +++ mg/dLNOMS HealthcareBlood, [...] II, MD, PHD at 28-Aug-2024 11:25:24 PM [facility] TeleradiologyNormalNot AvailableComment on above:Order Comment: US OB TRANSVAGINAL No LMP recorded.TB PREG QUANT HCGon 11-57-7098IOK UZYMTAKEJFXC9615aGU/mLNOMS HealthcareComment on above:5-50 0.2-1 WEEK 50-500 1-2 WEEKS 100-5,000 2-3 WEEKS 500-10,000 3-4 WEEKS 1,000-50,000 4-5 WEEKS 10,000-100,000 5-6 WEEKS 15,000-200,000 6-8 WEEKS 10,000-100,000 2-3 MONTHS CLINISYNCNOMS HealthcareTB PREG QUANT HCGon 33-34-0547DSN EDDEHONJLGWF324fEL/mL NOMS HealthcareComment on above:5-50 0.2-1 WEEK 50-500 1-2 WEEKS 100-5,000 2-3 WEEKS 500-10,000 3-4 WEEKS 1,000-50,000 4-5 WEEKS 10,000-100,000 5-6 WEEKS 15,000-200,000 6-8 WEEKS 10,000-100,000 2-3 MONTHS CLINISYNCNOMS HealthcareTB PREG QUANT HCGon 18-72-8366FWN PPHSJLFQFRYO475rNI/mL NOMS HealthcareComment on above:5-50 0.2-1 WEEK 50-500 1-2 WEEKS 100-5,000 2-3 WEEKS 500-10,000 3-4 WEEKS 1,000-50,000 4-5 WEEKS 10,000-100,000 5-6 WEEKS 15,000-200,000 6-8 WEEKS 10,000-100,000 2-3 MON[facility]S [facility] PREG QUANT HCGon 66-89-8065KGC LFKJBUWVTXYD238xVJ/mL NOMS HealthcareComment on above:5-50 0.2-1 WEEK 50-500 1-2 WEEKS 100-5,000 2-3 WEEKS 500-10,000 3-4 WEEKS 1,000-50,000 4-5 WEEKS 10,000-100,000 5-6 WEEKS 15,000-200,000 6-8 WEEKS 10,000-100,000 2-3 MONTHS [facility] PREG QUANT HCGon 60-00-3926LQM CUOHJEKRMDCH52mZZ/mL NOMS HealthcareComment on above:5-50 0.2-1 WEEK 50-500 1-2 WEEKS 100-5,000 2-3 WEEKS 500-10,000 3-4 WEEKS 1,000-50,000 4-5 WEEKS 10,000-100,000 5-6 WEEKS 15,000-200,000 6-8 WEEKS 10,000-100,000 2-3 MONTHS [facility] PREG QUANT HCGon 04-38-7906UUT OEPHWSLGUPFL2qJM/mL NOMS HealthcareComment on above:5-50 0.2-1 WEEK 50-500 1-2 WEEKS 100-5,000 2-3 WEEKS 500-10,000 3-4 WEEKS 1,000-50,000 4-5 WEEKS 10,000-100,000 5-6 WEEKS 15,000-200,000 6-8 WEEKS 10,000-100,000 2-3 MONTHS [facility] PROGESTERONEon 09-30-7662IUVHYOHSOCUK53.8 ng/mL.NOMS HealthcareComment on above:Follicular phase 0.1 - 0.9 Luteal phase 1.8 - 23.9 Ovulation phase 0.1 - 12.0 First trimester 11.0 - 44.3 Second trimester 25.4 - 83.3 Third trimester 58.7 - 214.0 Postmenopausal 0.0 - 0.1 Performed at: [address] [id number] Claims Counsel: Jordin Rao PhD, Phone: [phone] [facility] SYSTEMLiveWire MobileNortheast [facility] PROGESTERONEon 17-95-0471GLFLHOWQLIJL33.6 ng/mL.NOMS HealthcareComment on above:Follicular phase 0.1 - 0.9 Luteal phase 1.8 - 23.9 Ovulation phase 0.1 - 12.0 First trimester 11.0 - 44.3 Second trimester 25.4 - 83.3 Third trimester 58.7 - 214.0 Postmenopausal 0.0 - 0.1 Performed at: [address] [id number] Claims Counsel: Jordin Rao PhD, Phone: [phone] [facility] PREG QUANT HCGon 84-52-0629CNH QUANTITATIVE<1mIU/mL NOMS HealthcareComment on above:5-50 0.2-1 WEEK 50-500 1-2 WEEKS 100-5,000 2-3 WEEKS 500-10,000 3-4 WEEKS 1,000-50,000 4-5 WEEKS 10,000-100,000 5-6 WEEKS 15,000-200,000 6-8 WEEKS 10,000-100,000 2-3 MONTHS [facility] PROGESTERONEon 03-94-5603TYHADNHZFNFW09.9 ng/mL.NOMS HealthcareComment on above:Follicular phase 0.1 - 0.9 Luteal phase 1.8 - 23.9 Ovulation phase 0.1 - 12.0 First trimester 11.0 - 44.3 Second trimester 25.4 - 83.3 Third trimester 58.7 - 214.0 Postmenopausal 0.0 - 0.1 Performed at: [address] [id number] Claims Counsel: Jordin Rao PhD, Phone: [phone] [facility] SYSTEMCarWoo![facility] HEMOGLOBIN A1Con 58-79-3465Lamycmt [Mass/Vol]88 mg/dLNOSt. Joseph Medical CenterQgmfcwpsdaAxS3x (Bld) [Mass fraction]4.7 %4.5 - 6.2 %[facility] Healthcare Comment on above:ADA RECOMMENDED LIMIT 4.0 - 6.0 ADA THERAPEUTIC TARGET < 7.0 ACTION SUGGESTED > 7.0 CLINISYNCNOMS HealthcareChoriogonadotropin.beta subunit [Units/volume] in Serum or PlasmaOrdered By: Jack Woods on 47-44-2929QPZ.beta subunit Qn4.96 m[IU]/mL [facility] Medical CenterComment on above:Approximate Approximate hCG Gestational Age Range (mIU/ml) (weeks)0.2-1 5-50 1-2 50-500 2-3 100-5,000 3-4 500-10,000 4-5 1,000-50,000 5-6 10,000-100,000 6-8 15,000-200,000 8-12 10,000-100,000HCG,Quantitativeon 36-93-0359SJG,Quantitative4.96 m[iU]/mLNormal [facility] Physician GroupComment on above:Result Comment: Approximate Approximate hCG Gestational Age Range (mIU/ml) (weeks) 0.2-1 5-50 1-2 50-500 2-3 100-5,000 3-4 500-10,000 4-5 1,000-50,000 5-6 10,000-100,000 6-8 15,000-200,000 8-12 10,000-100,000 PERFORMED BY: [place] [address] PATHOLOGIST TELEVISION NEWS PRODUCER TO ANAYA M.D.Performed By: #### HCGQNT #### [place] [address] USAChoriogonadotropin.beta subunit [Units/volume] in Serum or PlasmaOrdered By: Jack Woods on 15-01-8025LHR.beta subunit Qn108.32 m[IU]/mL [facility] Medical CenterComment on above:Approximate Approximate hCG Gestational Age Range (mIU/ml) (weeks)0.2-1 5-50 1-2 50-500 2-3 100-5,000 3-4 500-10,000 4-5 1,000-50,000 5-6 10,000-100,000 6-8 15,000-200,000 8-12 10,000-100,000HCG,Quantitativeon 74-75-3257BRY,Hgirbftzjtti994.32 m[iU]/mLNormal [facility] Physician GroupComment on above:Result Comment: Approximate Approximate hCG Gestational Age Range (mIU/ml) (weeks) 0.2-1 5-50 1-2 50-500 2-3 100-5,000 3-4 500-10,000 4-5 1,000-50,000 5-6 10,000-100,000 6-8 15,000-200,000 8-12 10,000-100,000 PERFORMED BY: [place] [id number] PATHOLOGIST TELEVISION NEWS PRODUCER TO ANAYA M.D.Performed By: #### HCGQNT #### [place] [id number] USAChoriogonadotropin.beta subunit [Units/volume] in Serum or PlasmaOrdered By: Jack Woods on 79-15-6636YQO.beta subunit Ze7539.88 m[IU]/mL [facility] Medical CenterComment on above:Approximate Approximate hCG Gestational Age Range (mIU/ml) (weeks)0.2-1 5-50 1-2 50-500 2-3 100-5,000 3-4 500-10,000 4-5 1,000-50,000 5-6 10,000-100,000 6-8 15,000-200,000 8-12 10,000-100,000HCG,Quantitativeon 35-78-1084IWT,Htulsdxfipcs5048.88 m[iU]/mL NormalThe [facility] Physician GroupComment on above:Result Comment: Approximate Approximate hCG Gestational Age Range (mIU/ml) (weeks) 0.2-1 5-50 1-2 50-500 2-3 100-5,000 3-4 500-10,000 4-5 1,000-50,000 5-6 10,000-100,000 6-8 15,000-200,000 8-12 10,000-100,000 PERFORMED BY: [place] [id number] PATHOLOGIST [employer]LE[employer] NEWS PRODUCER TO ANAYA M.D.Performed By: #### HCGQNT #### [address] [address] USAChoriogonadotropin.beta subunit [Units/volume] in Serum or PlasmaOrdered By: Jack Woods on [id number].beta subunit Qn988.06 m[IU]/mL [facility] CenterComment on above:Approximate Approximate hCG Gestational Age Range (mIU/ml) (weeks)0.2-1 5-50 1-2 50-500 2-3 100-5,000 3-4 500-10,000 4-5 1,000-50,000 5-6 10,000-100,000 6-8 15,000-200,000 8-12 10,000-100,000HCG,Quantitativeon [id number],Fwpxggntddks996.06 m[iU]/mLNormal [facility] Physician GroupComment on above:Result Comment: Approximate Approximate hCG Gestational Age Range (mIU/ml) (weeks) 0.2-1 5-50 1-2 50-500 2-3 100-5,000 3-4 500-10,000 4-5 1,000-50,000 5-6 10,000-100,000 6-8 15,000-200,000 8-12 10,000-100,000 PERFORMED BY: [address] [address] PATHOLOGIST TELEVISION NEWS PRODUCER TO ANAYA M.D.Performed By: #### HCGQNT #### [address] [address] USAUS OB transvaginalon [id number] OB transvaginalKETTERING HEALTH PRE[facility] Main [address] [address] Ultrasound Report Signed Patient: Daphney Al MR#: [id number] : 2000 Acct:[id number] Age/Sex: 23 / F ADM Date: 12/20/23 Loc: Room: Type: REG CLI Attending Dr: Jack Peggy DO Ordering Provider: Jack Woods Date of Service: 12/20/23 US/US OB <= 14 weeks fetus: N92.6 ([id number]) US/US OB transvaginal: N92.6 Copies to: Jack [...] Lisa Rojas M.D.12/20/2023 5:46 PM Dictation Location: [place] [address] Tech: Deb Farhan Transcribed By: FLETCHER 12/20/23 174 Dictated By: Lisa Rjoas MD 12/20/23 173 Signed By: 12/20/23 1746NoPerson [facility] Physician GroupChoriogonadotropin.beta subunit [Units/volume] in Serum or PlasmaOrdered By: Jack Woods on 17-28-9269AOS.beta subunit Qn295.86 m[IU]/mLKettering Health Behavioral Medical CenterComment on above: Approximate Approximate hCG Gestational Age Range (mIU/ml) (weeks)0.2-1 5-50 1-2 50-500 2-3 100-5,000 3-4 500-10,000 4-5 1,000-50,000 5-6 10,000-100,000 6-8 15,000-200,000 8-12 10,000-100,000HCG,Quantitativeon 66-06-6528DDQ,Quantitative 295.86 m[iU]/mLNAtrium Health Waxhaw Physician GroupComment on above:Result Comment: Approximate Approximate hCG Gestational Age Range (mIU/ml) (weeks) 0.2-1 5-50 1-2 50-500 2-3 100-5,000 3-4 500-10,000 4-5 1,000-50,000 5-6 10,000-100,000 6-8 15,000-200,000 8-12 10,000-100,000 PERFORMED BY: [place] [address] PATHOLOGIST TELEVISION NEWS PRODUCER TO ANAYA M.D.Performed By: #### HCGQNT #### [place] [address] USAChoriogonadotropin.beta subunit [Units/volume] in Serum or PlasmaOrdered By: Jack Woods on 06-96-6025HIG.beta subunit Qn135.80 m[IU]/mL [facility] Medical CenterComment on above:Approximate Approximate hCG Gestational Age Range (mIU/ml) (weeks)0.2-1 5-50 1-2 50-500 2-3 100-5,000 3-4 500-10,000 4-5 1,000-50,000 5-6 10,000-100,000 6-8 15,000-200,000 8-12 10,000-100,000HCG,Quantitativeon 75-86-2874OQB,Cygogbrgeqmc891.80 m[iU]/mLNormal [facility] Physician GroupComment on above:Result Comment: Approximate Approximate hCG Gestational Age Range (mIU/ml) (weeks) 0.2-1 5-50 1-2 50-500 2-3 100-5,000 3-4 500-10,000 4-5 1,000-50,000 5-6 10,000-100,000 6-8 15,000-200,000 8-12 10,000-100,000 PERFORMED BY: [place] [address] PATHOLOGIST TELEVISION NEWS PRODUCER TO ANAYA M.D.Performed By: #### HCGQNT #### [place] [address] USAChoriogonadotropin.beta subunit [Units/volume] in Serum or PlasmaOrdered By: ANT Reardon on 33-69-2257KCJ.beta subunit Qn69.85 m[IU]/mLKettering Health Behavioral Medical CenterComment on above:Approximate Approximate hCG Gestational Age Range (mIU/ml) (weeks)0.2-1 5-50 1-2 50-500 2-3 100-5,000 3-4 500-10,000 4-5 1,000-50,000 5-6 10,000-100,000 6-8 15,000-200,000 8-12 10,000-100,000HCG,Quantitativeon 12-81-7820DWZ,Tyciikpjrppe70.85 m[iU]/mL NormalThe [facility] Physician GroupComment on above:Result Comment: Approximate Approximate hCG Gestational Age Range (mIU/ml) (weeks) 0.2-1 5-50 1-2 50-500 2-3 100-5,000 3-4 500-10,000 4-5 1,000-50,000 5-6 10,000-100,000 6-8 15,000-200,000 8-12 10,000-100,000 PERFORMED BY: [place] [address] PATHOLOGIST TELEVISION NEWS PRODUCER TO ANAYA M.D.Performed By: #### HCGQNT #### [place] [address] USAProgesteroneon 16-62-1461Dzpappljhifn47.5 ng/mLNormal.The [facility] Physician GroupComment on above:Result Comment: Follicular phase 0.1 - 0.9 Luteal phase 1.8 - 23.9 Ovulation phase 0.1 - 12.0 First trimester 11.0 - 44.3 Second trimester 25.4 - 83.3 Third trimester 58.7 - 214.0 Postmenopausal 0.0 - 0.1 Performed at: [facility] [address] [place], [place] [id number] Claims Counsel: Jordin Rao PhD, Phone: [phone] PERFORMED BY: [place] [address] PATHOLOGIST TELEVISION NEWS PRODUCER TO AANYA M.D.Performed By: #### PROG #### [facility] ,Serum or plasma progesterone measurement (mass/volume)Ordered By: Jack Woods on 52-52-7199Ursexubqncdt [Mass/Vol]26.5 ng/mL.[facility] Comment on above:Follicular phase 0.1 - 0.9 Luteal phase 1.8 - 23.9 Ovulation phase 0.1 - 12.0 First trimester 11.0 - 44.3 Second trimester 25.4 - 83.3 Third trimester 58.7 - 214.0 Postmenopausal 0.0 - 0.1Performed at: remoceanSaint Barnabas Medical CenterPmwlij[address] [place], [place] [id number] Director: Jordin Muhammad, Phone: [phone].beta subunit [Units/volume] in Serum or PlasmaOrdered By: ANT Reardon on 38-09-1004TFN.beta subunit Qn12.64 m[IU]/mLKettering Health Behavioral Medical CenterComment on above:Approximate Approximate hCG Gestational Age Range (mIU/ml) (weeks)0.2-1 5-50 1-2 50-500 2-3 100-5,000 3-4 500-10,000 4-5 1,000-50,000 5-6 10,000-100,000 6-8 15,000-200,000 8-12 10,000-100,000HCG,Quantitativeon 62-08-4154YGR,Fkbgzcbvjgpv59.64 m[iU]/mL NormalThe [facility] Physician GroupComment on above:Result Comment: Approximate Approximate hCG Gestational Age Range (mIU/ml) (weeks) 0.2-1 5-50 1-2 50-500 2-3 100-5,000 3-4 500-10,000 4-5 1,000-50,000 5-6 10,000-100,000 6-8 15,000-200,000 8-12 10,000-100,000 PERFORMED BY: [facility] [address] [place] [address] PATHOLOGIST TELEVISION NEWS PRODUCER TO ANAYA M.D.Performed By: #### HCGQNT #### [facility] [address] [place] [address] USAOperative Reporton 54-43-8299Ggymzwuwk Report [id number]#1.00TIFFSelect Medical Specialty Hospital - YoungstownQuick Strepon 03-21-2023S. pyogenes Org specific cx Ql (Throat)Negative [facility] IQzone Other Quick [facility] IQzone Other [facility] Auto Differentialon 64-16-1655Mtaupytgo (Bld) [#/Vol]0.00 10*3/Face++ [facility], KYBasophils/100 WBC (Bld)0 %0 - 2 %Labelby.me [facility], KYDifferential TypeYESMBethesda North Hospital [place], KYEosinophils (Bld) [#/Vol] 0.20 10*3/uLMerMadRat Games [facility] [place], KYEosinophils/100 WBC (Bld)2 %0 - 5 %[facility]- [place], KYErythrocyte distribution width (RBC) [Ratio]12.6 %12.1 - 15.2 %[facility]- [place], USHAHematocrit (Bld) [Volume fraction]39.8 %36 - 46 %[facility]- [place], USHAHemoglobin (Bld) [Mass/Vol]13.8 g/dL12 - 16 g/dLChillicothe Va Medical Center- [place], USHA Interpretation and review of laboratory resultsAbnormalChillicothe [facility]- [place], [place] Lymphocytes (Bld) [#/Vol]1.70 10*3/uLChillicothe Va Medical Center- [place], KYLymphocytes/100 WBC (Bld)14 %Low15 - 40 %[facility]- [place], USHAMCH (RBC) [Entitic mass]31.5 pg26 - 34 pgChillicothe Va Medical Center- [place], USHAMCHC (RBC) [Mass/Vol]34.6 g/dL31 - 37 g/dLChillicothe Va Medical Center- [place], USHAMCV (RBC) [Entitic vol]91.2 fL80 - 100 fLChillicothe Va Medical Center- [place], KYMonocytes (Bld) [#/Vol]0.60 10*3/[facility]- [place], USHAMonocytes/100 WBC (Bld)5 %4 - 8 % [facility]- [place], USHAPlatelet mean volume (Bld) [Entitic vol]NOT REPORTED6 - 12 fLChillicothe Va Medical Center- [place], KYPlatelets (Bld) [#/Vol]NOT REPORTEDChillicothe [facility]- [place], USHA Platelets (Bld) [#/Vol]287 10*3/[facility]- [place], KYRBC (Bld) [#/Vol]4.37 10*6/uL4 - 5.2 m/[facility]- [place], KYRBC morphology finding Nom (Bld)NOT REPORTEDChillicothe [facility]- [place], KYSegmented neutrophils/100 WBC (Bld)79 %High47 - 75 % [facility]- [place], KYSegs Absolute9.50HighChillicothe Va Medical Center- [place], KYWBC (Bld) [#/Vol] 12.0 10*3/[facility]- [place], KYWBC (Bld) [#/Vol]NOT REPORTEDper 100 WBCChillicothe Va Medical Center- [place], KYWBC MorphologyNOT REPORTEDTriHealth [facility], [facility]ITALC with Diffon [id number]. Basophil0.00 k/uLNormal0.0-0.2MRiverside Methodist Hospital on above:Performed By: #### CP, CDP #### [facility] [address] [place] [phone] Claims Counsel: José Higgins.Neutrophil (Seg)9.50 k/uLHigh2.5-7.0[facility] on above:Performed By: #### CP, CDP #### [facility] [address] [place] [phone] Claims Counsel: Maya Higgins Diff PerformedYESNormToledo Hospital on above:Performed By: #### CP, CDP #### [facility] [address] [place] [phone] Claims Counsel: Jonathan Chisholm MDBasophils/100 WBC (Bld)0 %Normal0-2MProMedica Memorial HospitalComment on above:Performed By: #### CP, CDP #### [facility] [address] [place] [phone] Claims Counsel: Jonathan Chisholm MDEosinophils (Bld) [#/Vol]0.20 10*3/uLNormal 0.0-0.4[facility] on above:Performed By: #### CP, CDP #### [facility] [address] [place], [place] [phone] Claims Counsel: CHRISTINE Higginsosinophils/100 WBC (Bld)2 %Normal0-5[facility] on above:Performed By: #### CP, CDP #### [facility] [address] [place] [address] Claims Counsel: Jonathan Chisholm MDErythrocyte distribution width (RBC) [Ratio]12.6 %Hsbquz08.1-15.2MProMedica Memorial HospitalComment on above:Performed By: #### CP, CDP #### [facility] [address] [place] [phone] Claims Counsel: Jonathan Chisholm MDHematocrit (Bld) [Volume fraction]39.8 %Normal 36-46[facility] HospitalComment on above:Performed By: #### CP, CDP #### [facility] [address] [place] [phone] Claims Counsel: Jonathan Chisholm MDHemoglobin (Bld) [Mass/Vol]13.8 g/dLNormal 12.0-16.0[facility] HospitalComment on above:Performed By: #### CP, CDP #### [facility] [address] [place] [phone] Claims Counsel: Jonathan Chisholm MDLymphocytes (Bld) [#/Vol]1.70 10*3/uLNormal 1.2-5.2MC[facility] HospitalComment on above:Performed By: #### CP, CDP #### [facility] [address] [place] [phone] Claims Counsel: Jamie Higginsmphocytes/100 WBC (Bld)14 %Nnm44-22PrcecWyandot Memorial HospitalComment on above:Performed By: #### CP, CDP #### [facility] [address] [place] [phone] Claims Counsel: MEETA HigginsCH (RBC) [Entitic mass]31.5 yqIeukeq85-58Wtgub Willard HospitalComment on above:Performed By: #### CP, CDP #### [facility] [address] [place] [phone] Claims Counsel: AWA HigginsC (RBC) [Mass/Vol]34.6 g/dVSwnuzz25-46Ucgss Willard HospitalComment on above:Performed By: #### CP, CDP #### [facility] [address] [place], [place] [phone] ([address]) Claims Counsel: MEETA HigginsCV (RBC) [Entitic vol]91.2 mYJrziov12-574IrcmwWyandot Memorial HospitalComment on above:Performed By: #### CP, CDP #### [facility] [address] [place], [place] [phone] (191) Claims Counsel: MEETA Higginsonocytes (Bld) [#/Vol]0.60 10*3/uLNormal0.0-1.0 [facility] HospitalCommary free bed rehabilitation hospital on above:Performed By: #### CP, CDP #### [facility] [address] [place], [place] [phone] (382) Claims Counsel: MEETA Higginsonocytes/100 WBC (Bld)5 %Normal4-8[facility] Memorial HospitalComment on above:Performed By: #### CP, CDP #### [facility] [address] [place] [address] Claims Counsel: Zachary Higginsophil (Seg)79 %Joql71-14HqcabWyandot Memorial HospitalComment on above:Performed By: #### CP, CDP #### [facility] [address] [place], [place] [phone] (126) Claims Counsel: Ynes Higginstebrain (Bld) [#/Vol]287 10*3/xVQaytfl730-470 [facility] HospitalCommary free bed rehabilitation hospital on above:Performed By: #### CP, CDP #### [facility] [address] [place] [address] Claims Counsel: SONJA HigginsBC (Bld) [#/Vol]4.37 10*6/uLNormal4.0-5.2MProMedica Memorial HospitalComment on above:Performed By: #### CP, CDP #### [facility] [address] [place], [place] [phone] Claims Counsel: REED HigginsBC (Bld) [#/Vol]12.0 10*3/uLNormal4.5-13.5[facility] Memorial HospitalComment on above:Performed By: #### CP, CDP #### [facility] [address] [place], [place] [phone] Claims Counsel: José Higgins.Imm.GranulocyteNOT REPORTEDNormal0.00-0.30 [facility] HospitalComment on above:Performed By: #### CP, CDP #### [facility] [address] [place] [address] Claims Counsel: Jonathan Chisholm MDImmature granulocytes (Bld) [#/Vol]NOT REPORTED Mleycu5RooygSouthern Ohio Medical Centerment on above:Performed By: #### CP, CDP #### [facility] [address] [place] [phone] Claims Counsel: NAHID Higgins AutomatedNOT REPORTEDNormalWyandot Memorial HospitalComment on above:Performed By: #### CP, CDP #### [facility] [address] [place] [phone] Claims Counsel: Ynes Higginsteserena mean volume (Bld) [Entitic vol]NOT REPORTEDNormal6.0-12.0[facility] Memorial HospitalComment on above:Performed By: #### CP, CDP #### [facility] [address] [place] [address] Claims Counsel: Ynes Higginstelets (Bld) [#/Vol]NOT REPORTEDNormalSouthern Ohio Medical Centerment on above:Performed By: #### CP, CDP #### [facility] [address] [place], [place] [phone] Claims Counsel: COURT Higgins morphology finding Nom (Bld)NOT REPORTED NormalMercy Hernesto HospitalComment on above:Performed By: #### CP, CDP #### [facility] [address] [place] [address] Claims Counsel: REED Higgins MorphologyNOT REPORTEDNormalWyandot Memorial HospitalComment on above:Performed By: #### CP, CDP #### [facility] [address] [place] [address] Claims Counsel: HODAN Higginskane county human resource ssd Metabolic Profon 02-01-2019(cont.)Normal [facility] HospitalCommary free bed rehabilitation hospital on above:Result Comment: Average GFR for 20-29 years old: 116 mL/min/1.73sq m Chronic Kidney Disease: <60 mL/min/1.73sq m Kidney failure: <15 mL/min/1.73sq m eGFR calculated using average adult body mass. Additional eGFR calculator available at: http://www.Preen.Me.CicekSepeti.com/multiple_crcl_2011.htmPerformed By: #### CP, CDP #### [facility] [address] [place] [address] Claims Counsel: Jonathan Chisholm MDAlbumin [Mass/Vol]4.1 g/dLNormal3.5-5.2Mbrown memorial hospitaly [facility] Regional HospitalComment on above:Performed By: #### CP, CDP #### [facility] [address] [place] [address] Claims Counsel: Hector Higginsline Phos63 U/AWcjpnn29-524FxbmpWyandot Memorial HospitalComment on above:Performed By: #### CP, CDP #### [facility] [address] [place] [address] Claims Counsel: Jonathan Chisholm MDALT [Catalytic activity/Vol]8 U/LNormal5-33[facility] on above:Performed By: #### CP, CDP #### [facility] [address] [place] [address] Claims Counsel: Jonathan Chisholm MDAnion gap [Moles/Vol]12 mmol/LNormal9-17[facility] Memorial HospitalComment on above:Performed By: #### CP, CDP #### [facility] [address] [place], [place] [phone] Claims Counsel: Jonathan Chisholm MDAST [Catalytic activity/Vol]13 U/LNormal<32W[facility] Memorial HospitalComment on above:Performed By: #### CP, CDP #### [facility] [address] [place] [phone] Claims Counsel: Jonathan Chisholm MDBilirubin Ql (U)0.40 mg/dLNormal0.30-1.20[facility] Memorial HospitalComment on above:Performed By: #### CP, CDP #### [facility] [address] [place] [phone] Claims Counsel: Jonathan Chisholm MDBUN/CRE Iqdqa68Hlwstp7-92Gqypl [facility] Comment on above:Performed By: #### CP, CDP #### [facility] [address] [place] [phone] Claims Counsel: Jonathan Chisholm MDCalcium [Mass/Vol]9.1 mg/dLNormal8.6-10.4[facility] Memorial HospitalComment on above:Performed By: #### CP, CDP #### [facility] [address] [place] [phone] Claims Counsel: Jonathan Chisholm, MDChloride [Moles/Vol]103 mmol/ROpruyv76-339OorbbWyandot Memorial HospitalComment on above:Performed By: #### CP, CDP #### [facility] [address] [place], [place] [phone] Claims Counsel: Jonathan Chisholm, MDCO2 [Moles/Vol]24 mmol/FJnychl17-62YkdkyWyandot Memorial HospitalComment on above:Performed By: #### CP, CDP #### [facility] [address] [place], [place] [phone] Claims Counsel: HODAN Higginsreatinine [Mass/Vol]0.61 mg/dLNormal0.50-0.90 [facility] Memorial HospitalComment on above:Performed By: #### CP, CDP #### [facility] [address] [place] [phone] Claims Counsel: Jonathan Chisholm MDGFR, Amer>60Normal>60Mer[facility] Millersport HospitalComment on above:Performed By: #### CP, CDP #### [facility] [address] [place] [address] Claims Counsel: Jonathan Chisholm MDGFR,non Amer>60Normal>60[facility]ers[facility] HospitalComment on above:Performed By: #### CP, CDP #### [facility] [address] [place] [phone] Claims Counsel: Jonathan Chisholm MDGlucose [Mass/Vol]94 mg/xHKanixh87-17Eotam Willard HospitalComment on above:Performed By: #### CP, CDP #### [facility] [address] [place] [phone] Claims Counsel: GAGE Higginsotassium [Moles/Vol]3.8 mmol/LNormal3.7-5.3Mbrown memorial hospitaly Millersport HospitalComment on above:Performed By: #### CP, CDP #### [facility] [address] [place] [address] Claims Counsel: Jonathan Chisholm MDProtein [Mass/Vol]7.1 g/dLNormal6.4-8.3Mer[facility] Millersport HospitalComment on above:Performed By: #### CP, CDP #### [facility] [address] [place], [place] [phone] Claims Counsel: Jonathan Chisholm MDSodium [Moles/Vol]139 mmol/KNuyxvw857-989PawioWyandot Memorial HospitalComment on above:Performed By: #### CP, CDP #### [facility] [address] [place] [address] Claims Counsel: Jonathan Chisholm MDUrea nitrogen [Mass/Vol]8 mg/dLNormal6-20[facility] Memorial HospitalComment on above:Performed By: #### CP, CDP #### [facility] [address] [place] [address] Claims Counsel: Jonathan Chisholm MDAlbumin/Globulin [Mass ratio]NOT REPORTEDNormal 1.0-2.5[facility] Memorial HospitalComment on above:Performed By: #### CP, CDP #### [facility] [address] [place] [address] Claims Counsel: KARLENE Higginstaging:NOT REPORTEDNormalWyandot Memorial Hospital Comment on above:Performed By: #### CP, CDP #### [facility] [address] [place] [address] Claims Counsel: Jonathan Chihsolm [facility] – DRUMRIGHTomprehensive Metabolic Panelon 90-32-6301Cqwzydf [Mass/Vol]4.1 g/dL3.5 - 5.2 g/dLChillicothe Va [facility] Center- [place], KYAlbumin/Globulin [Mass ratio]NOT REPORTEDChillicothe Va [facility] Center- [place], KYALP [Catalytic activity/Vol]63 U/L35 - 104 U/LMercy Health- [place], KYALT [Catalytic activity/Vol]8 U/L5 - 33 U/LMercy Health- [place], KYAnion gap [Moles/Vol]12 mmol/L9 - 17 mmol/LMercy Health- [place], KYAST [Catalytic activity/Vol]13 U/L<32[facility]- [place], KYBilirubin Ql (U)0.40 mg/dL 0.3 - 1.2 mg/dLMer Health- [place], KYBun/Cre Zsrnk87Jslih Health- [place], KYCalcium [Mass/Vol]9.1 mg/dL8.6 - 10.4 mg/dLMercy Health- [place], KYChloride [Moles/Vol]103 mmol/L98 - 107 mmol/[facility], KYCO2 [Moles/Vol]24 mmol/L20 - 31 mmol/L [facility], KYCreatinine [Mass/Vol]0.61 mg/dL0.5 - 0.9 mg/dLTriHealth Bethesda North Hospital, KYGFR >60>60 mL/minTriHealth Bethesda North Hospital, KYGFR Non->60>60 mL/minTriHealth Bethesda North Hospital, KYGFR/1.73 sq M predicted among non- blacks MDRD (S/P/Bld) [Vol rate/Area]NOT REPORTEDTriHealth [facility], KYGFR/1.73 sq M predicted among non-blacks MDRD (S/P/Bld) [Vol rate/Area][facility], [place] Comment on above:Average GFR for 20-29 years old: 116 mL/min/1.73sq m Chronic Kidney Disease: <60 mL/min/1.73sq m Kidney failure: <15 mL/min/1.73sq m eGFR calculated using average adult body mass. Additional eGFR calculator available at: http://www.[employer]/multiple_crcl_2011.htm Glucose [Mass/Vol]94 mg/dL70 - 99 mg/dLTriHealth Bethesda North Hospital, KYPotassium [Moles/Vol] 3.8 mmol/L3.7 - 5.3 mmol/[facility], KYProtein [Mass/Vol]7.1 g/dL6.4 - 8.3 g/dLTriHealth Bethesda North [facility], KYSodium [Moles/Vol]139 mmol/L135 - 144 mmol/[facility], KYUrea nitrogen [Mass/Vol]8 mg/dL6 - 20 mg/dLTriHealth Bethesda North Hospital, [place] HCG, ,Urineon 83-96-8739Jyre HCG ( test) Ql (U)NegativeNormal NEGWyandot Memorial HospitalComment on above:Performed By: #### [facility] [place] #### [facility] [address] [place] [address] Claims Counsel: Jonathan Phan, MDMicroscopic Urinalysison 79-75-5101Idhhbwxry, UA NOT REPORTEDNoneMercy Health- [place], KYBacteria, UA3+AbnormalNoneMercy [...] (Bld) [#/Vol]NOT REPORTEDMercy Health- [place], KYPregnancy, Urineon 14-02-3590Uoua HCG ( test) Ql (U)NegativeNEGATIVEMercy Health- [place], KYUrinalysison 47-55-9385Mltrqsqeh UrineNegativeNEGATIVEMercy Health- [place], [place] Color, UAYELLOWYELLOWMercy Health- [place], KYGlucose, UrNegativeNEGATIVEMercy Health- [place], KYInterpretation and review of laboratory resultsAbnormalMercy Health- [place], KYKetones Ql (U)TRACEAbnormalNEGATIVEMercy Health- [place], KYLeukocyte esterase Test strip Ql (U)NegativeNEGATIVEMercy Health- [place], KYNitrite, Urine NegativeNEGATIVEMercy Health- [place], KYpH, UA6.0[facility]- [place], KYProtein (U) [Mass/Vol]1+AbnormalNEGATIVEMercy Health- [place], KYSpecific [place], UA1.020[facility]- [place], KYTurbidity UACLEARCLEARMercy Health- [place], KYUrinalysis CommentsMercy Health- [place], KYUrine Hgb3+AbnormalNEGATIVEMercy Health- [place], KYUrobilinogen, UrineNormalNormTrumbull Memorial Hospital, KYUrinalysis, Routineon 77-13-8179Ryaxzqnjpau Acid,UrTRACEAbnormalNEGWyandot Memorial HospitalCommary free bed rehabilitation hospital on above:Performed By: #### [facility] [place]A #### [facility] [address] [place] [address] Claims Counsel: Jonathan Chisholm MDBilirubin, SemiQt,UrNegativeNormalNEGWyandot Memorial HospitalComment on above:Performed By: #### [facility] [place] #### [facility] [address] [place] [address] Claims Counsel: HODAN Higginsolor (U)YELLOWNoProMedica Bay Park Hospital Comment on above:Performed By: #### [facility] [place], [place]A #### [facility] [address] [place] [address] Claims Counsel: HODAN HigginsommentNoWood County HospitalCommary free bed rehabilitation hospital on above:Performed By: #### [facility] [place] #### [facility] [address] [place] [address] Claims Counsel: Jonathan Chisholm MDGlucose Ql (U)NegativeNormalLouis Stokes Cleveland [facility] Center on above:Performed By: #### [facility] [place]A #### [facility] [address] [place] [address] Claims Counsel: Jonathan Chisholm MDHemoglobin, Ur3+AbnormalUC Health Comment on above:Performed By: #### [facility] [place] #### [facility] [address] [place] [address] Claims Counsel: Jonathan Chisholm MDLeukocyte esterase Test strip Ql (U)Negative NormalNEGWyandot Memorial HospitalCommary free bed rehabilitation hospital on above:Performed By: #### [facility] [place] #### [facility] [address] [place] [address] Claims Counsel: Elizabeth Higgins,UrNegativeNormMercy Health [facility] Hospital Comment on above:Performed By: #### [facility] [place] #### [facility] [address] [place] [address] Claims Counsel: Gage Higgins (U)6.0 [pH]Normal5.0-8.0[facility] Comment on above:Performed By: #### [facility] [place] #### [facility] [address] [place] [address] Claims Counsel: GAGE Higginssaint michael's [facility] center Ql (U)1+AbnormalUC Health Comment on above:Performed By: #### [facility] [place] #### [facility] [address] [place] [address] Claims Counsel: KARLENE Higginspecific gravity (U) [Rel density]1.020Normal 1.005-1.030Wyandot Memorial HospitalComment on above:Performed By: #### [facility] [place] #### [facility] [address] [place], [place] [id number] Claims Counsel: ALFREDO HigginsurbidityCLEARNoalCFostoria City Hospital Comment on above:Performed By: #### [facility] [place] #### [facility] [address] [place] [address] Claims Counsel: Yrn HigginsUrNormalNormalMansfield HospitalComment on above:Performed By: #### [facility] [place] #### [facility] [address] [place] [address] Claims Counsel: Jonathan Chisholm MDUrinalysis,Microon 02-01-2019-----NormalMercy Millersport HospitalComment on above:Performed By: #### [facility] [place] #### [facility] [address] [place] [address] Claims Counsel: Jonathan Chisholm MDBacteria LM.HPF (Urine sed) [#/Area]3+Abnormal NONEMerDoctors Hospital HospitalComment on above:Performed By: #### [facility] [place] #### [facility] [address] [place] [address] Claims Counsel: Jonathan Chisholm MDEpithelial cells LM.HPF (Urine sed) [#/Area]20 TO 50NormalProtestant Hospital HospitalComment on above:Performed By: #### [facility] [place] #### [facility] [address] [place] [address] Claims Counsel: MEETA Higginsucus Strands2+AbnormalNONEMeMorrow County Hospital Comment on above:Performed By: #### [facility] [place] [place] #### [facility] [address] [place] [address] Claims Counsel: SONJA HigginsBC (U) [#/Vol]2 TO 8Obwfub1-5Klxjh [facility] HospitalComment on above:Performed By: #### [facility] [place] #### [facility] [address] [place] [address] Claims Counsel: Jonathan Chisholm MDWBC (U) [#/Vol]2 TO 8Fasizv7Zrrry [facility] HospitalComment on above:Performed By: #### [facility] [place] #### [facility] [address] [place] [address] Claims Counsel: Jonathan Chisholm MDAmorphous sediment LM Ql (Urine sed)NOT REPORTED NormalNONEMeOhio Valley Hospital HospitalComment on above:Performed By: #### [facility] [place] [place] #### [facility] [address] [place] [address] Claims Counsel: HODAN Higginsasts LM.LPF (Urine sed) [#/Area]NOT REPORTED NormalMercy Millersport HospitalComment on above:Performed By: #### [facility] [place] [place] #### [facility] [address] [place] [address] Claims Counsel: HODAN Higginsrystals LM Nom (Urine sed)NOT REPORTEDNormalNONE [facility] HospitalComment on above:Performed By: #### [facility] [place] #### [facility] [address] [place] [address] Claims Counsel: Jonathan Chisholm MDEpithelial, RenalNOT SGBYXWYQXvvghe8Dyhva Willard HospitalComment on above:Performed By: #### [facility] [place] [place] #### [facility] [address] [place] [address] Claims Counsel: Jonathan Chisholm MDOther ObservationsNOT REPORTEDNormalNREQProtestant Hospital HospitalComment on above:Performed By: #### [facility] [place] #### [facility] [address] [place] [address] Claims Counsel: Jonathan Chisholm MDTrichomonasNOT REPORTEDNormalNONEMercSycamore Medical Center HospitalComment on above:Performed By: #### [facility] [place] #### [facility] [address] [place] [address] Claims Counsel: Jonathan Chisholm MDYeast LM Ql (Urine sed)NOT REPORTEDNormalNONE [facility] HospitalComment on above:Performed By: #### [facility] [place] [place] #### [facility] [address] [place] [address] Claims Counsel: Jonathan Chisholm MD Vital Signs Date TimeVital SignValuePerforming CtbocubohHxsyxiod62-66-2390 14:49-0400Body mass index (BMI) [Ratio]30.55 kg/u5EonjpkqiHazel Romero DIRECTOR CLOUD TRANSFORMATION Work Phone: 1(132)000-[address] [place], [place] [address]Steejpvzsu11-25-4898 14:49-0400Body .84 kgKrdayton Romero DIRECTOR CLOUD TRANSFORMATION Work Phone: 1(419)[facility] [place], [place] [address]Jzocuijjin99-17-8415 14:49-0400Diastolic blood sklhflea38 mm[Hg]Hazeldayton Romero DIRECTOR CLOUD TRANSFORMATION Work Phone: 1(611)[facility] [place], [place] [address]Lgldqnbhqa11-15-3746 14:49-0400Systolic blood iggfskru140 mm[Hg]Hazeldayton Romero DIRECTOR CLOUD TRANSFORMATION Work Phone: 1(251)[facility] [place], [place] [address]Qzollfjlum17-66-0743 14:14-0400Body mass index (BMI) [Ratio]30.67 kg/h7Ciwmm Peggy DO Work Phone: 1(328)[facility] [place], [place] [address]Nzzzrqlgrk76-09-1232 14:14-0400Body bjgowf69.18 kgCorey Peggy DO Work Phone: 1(485)[facility] [place], [place] [address]Juzjcbtqlg07-94-0481 14:14-0400Diastolic blood wvghwjeu89 mm[Hg]Jack Peggy DO Work Phone: 1(058)[facility] [place], [place] [address]Tnfhpyzwfb71-31-9042 14:14-0400Systolic blood uqdppvke573 mm[Hg]Jack Peggy DO Work Phone: 1(326)[facility] [place], [place] [address]Oytehnpkmi50-94-5677 09:59-0400Body mass index (BMI) [Ratio]30.18 kg/s6GinybskiHazel Romero DIRECTOR CLOUD TRANSFORMATION Work Phone: 1(387)[facility] [place], [place] [address]Htvqgwksya80-64-1195 09:59-0400Body oaaiud28.82 kgKrvenancioa Heather DIRECTOR CLOUD TRANSFORMATION Work Phone: 1(522)[facility] [place], [place] [address]Yngstqojfp61-51-7868 09:59-0400Diastolic blood ijpyeptv43 mm[Hg]Hazel Romero DIRECTOR CLOUD TRANSFORMATION Work Phone: [facility] HospitalJqhsasrigw37-55-0645 09:59-0400Systolic blood mm[Hg]Hazel Romero DIRECTOR CLOUD TRANSFORMATION Work Phone: 1(274)859-[address] [place], [place] [address]Vushkfofcw14-80-9987 08:54-0400Body mass index (BMI) [Ratio]30.22 kg/m2Jayla DA SILVA Work Phone: 1(786)090-[address] [place], [place] [address]Ckwgnbauhl41-01-7538 08:54-0400Body zpqzib87.94 kgAmy Cali DA SILVA Work Phone: [place] [address]Aklxapfptd23-31-7746 08:54-0400Diastolic blood mm[Hg]Jayla DA SILVA Work Phone: 1(720)995-[address] [place], [place] [address]Bolblgjzxm45-16-1521 08:54-0400Systolic blood yfkzlody651 mm[Hg]Jayla DA SILVA Work Phone: [phone] [place], [place] [address]Rlqwxwzgmg38-63-1007 09:38-0400Body mass index (BMI) [Ratio]29.67 kg/g5Itmhg Peggy DO Work Phone: 1(574)021-[address] [place], [place] [address]Elofhxymfc04-08-0038 09:38-0400Body ixeysd14.37 kgCorey Peggy DO Work Phone: 1(749)276-[address] [place], [place] [address]Sntkunqxjj61-24-5380 09:38-0400Diastolic blood wyurbwbe94 mm[Hg]Jack Peggy DO Work Phone: 1(600)879-[address] [place], [place] [address]Kykgzfmrbp76-40-7762 09:38-0400Systolic blood poxjfufr953 mm[Hg]Jack Peggy DO Work Phone: 1(613)844-[address] [place], [place] [address]Qfoqmnuoxt55-50-3244 14:30-0400Body mass index (BMI) [Ratio]29.83 kg/y9Pdmhk Peggy DO Work Phone: 1(781)217-[address] [place] [address]-19-2025 14:30-0400Body .83 kgCorey Peggy DO Work Phone: [facility] HospitalUjxjjjftug97-95-4784 14:30-0400Diastolic blood jxkqtdzi11 mm[Hg]Jack Peggy DO Work Phone: [facility] HospitalZoysygfiwg73-30-2559 14:30-0400Systolic blood cfakhiqj108 mm[Hg]Jack Peggy DO Work Phone: [facility] HospitalQztkgvfnvn35-71-2680 13:26-0400Body mass index (BMI) [Ratio]28.29 kg/m2Jayla DA SILVA Work Phone: [facility] HospitalNnfbpmaqke18-07-5779 13:26-0400Body .49 kgJayla DA SILVA Work Phone: [facility] HospitalRhlcdtcfxs15-49-4876 13:26-0400Diastolic blood jrpqpvny76 mm[Hg]Jayla DA SILVA Work Phone: [facility] HospitalIzetilyoew20-09-6559 13:26-0400Systolic blood mrbeztci314 mm[Hg]Jayla DA SILVA Work Phone: [facility] HospitalTsoligsjgv88-08-5497 08:47-0400Body .6 cmGuadalupe Peres MD Work Phone: 1(240)[address] [place], [place] 2103607-01-2025 08:47-0400Body mass index (BMI) [Ratio]27.48 kg/m2Guadalupe Peres MD Work Phone: 1(666)[address] [place], [place] 2103607-01-2025 08:47-0400Body oiltfp19.2 kgGuadalupe Peres MD Work Phone: 1(970)[address] [place], [place] 2103607-01-2025 08:47-0400Diastolic blood hxcedwry57 mm[Hg]Guadalupe Peres MD Work Phone: 1(577)[address] [place], [place] 2103607-01-2025 08:47-0400Heart rate 90 /Zahra Peres MD Work Phone: 1(948)[address] [place], [place] 2103607-01-2025 08:47-0400Systolic blood hqaadnpm570 mm[Hg]Guadalupe Peres MD Work Phone: 1(639)[address] [place], [place] 2103606-24-2025 14:10-0400Body mass index (BMI) [Ratio]27.02 kg/s9Fciel Peggy DO Work Phone: 1(459)[address] [place], [place] 6343606-24-2025 14:10-0400Body .93 kgCorey Peggy DO Work Phone: 1(233)[address] [place], [place] 6343606-24-2025 14:10-0400Diastolic blood gcgamvwg18 mm[Hg]Jack Peggy DO Work Phone: 1(701)[facility] [place], [place] [address]Bndjejzilb85-09-6178 14:10-0400Systolic blood hedfruev437 mm[Hg]Jack Peggy DO Work Phone: 1(995)[address] [place], [place] 6343605-27-2025 14:35-0400Body mass index (BMI) [Ratio]27.41 kg/y6Ckzvb Peggy DO Work Phone: 1(703)[address] [place], [place] 6343605-27-2025 14:35-0400Body eqxrry81.02 kgCorey Peggy DO Work Phone: 1(334)[address] [place], [place] 6343605-27-2025 14:35-0400Diastolic blood mfslqnaj91 mm[Hg]Jack Peggy DO Work Phone: 1(156)[address] [place], [place] 6343605-27-2025 14:35-0400Systolic blood mm[Hg]Jack Peggy DO Work Phone: 1(613)[address] [place], [place] 6343605-08-2025 13:34-0400Body mass index (BMI) [Ratio]26.95 kg/m2[facility]05-08-2025 13:34-0400Body zusczj82.75 kgDe[facility]05-08-2025 13:34-0400Diastolic blood dlbobosd34 mm[Hg][facility]05-08-2025 13:34-0400Systolic blood rxzbkyod462 mm[Hg][facility]11-27-2024 11:05-0500Body mass index (BMI) [Ratio]27.6 kg/u5Xxqef Peggy DO Work Phone: 1(210)[address] [place], [place] 6343611-27-2024 11:05-0500Body .56 kgCorey Peggy DO Work Phone: 1(091)348-[address] [place], [place] [address]Akvltaokuy18-65-2198 11:05-0500Diastolic blood qkeeedga24 mm[Hg]Jack Peggy DO Work Phone: [facility] HospitalIcravdserp94-91-1400 11:05-0500Systolic blood haxhkgke655 mm[Hg]Jack Peggy DO Work Phone: [facility] HospitalYyzrtpyeqv98-82-9777 13:52-0400Body caxaow737.6 cmCorey Peggy DO Work Phone: [facility] HospitalVmgupbrzod07-02-1420 13:52-0400Body mass index (BMI) [Ratio]26.6 kg/d4Pjkcx Peggy DO Work Phone: [facility] HospitalQngdygafvx36-72-5982 13:52-0400Body pmdcqu64.75 kgCorey Peggy DO Work Phone: [facility] HospitalOlihlxtmpw31-78-9962 13:52-0400Diastolic blood mm[Hg]Jack Peggy DO Work Phone: [facility] HospitalBxpwmzyzld66-34-3797 13:52-0400Systolic blood iwxmntbs619 mm[Hg]Jack Peggy DO Work Phone: [facility] HospitalSuaymrvrrp49-69-4234 18:10-0500Body yrzuxf772.64 cmAcelestina Anton Other [employer] Other 11-07-2023 18:10-0500Body mass index (BMI) [Ratio] 26.95 kg/l8ToaeqRina Anton Other [employer] Other 11-07-2023 18:10-0500Body fdvkqfredyn61.9 [degF]Rina Anton Other [employer]Wh[employer] Other 11-07-2023 18:10-0500Body ylxlpt01.75 kgRina Anton Other [employer]Wh[employer] Other 11-07-2023 18:10-0500Respiratory rate18 /minRina Anton Other nort [employer] Other 11-07-2023 18:10-6354GeO7% (BldA) [Mass fraction]97 % Rina Anton Other qz [employer] Other 257687-72-1621 06:41-0400BP Casxosaws38 mm[Hg][facility] [employer], PE19-85-7526 06:41-0400BP Gbvtrzts849 mm[Hg][facility] [employer] [facility], OZ69-91-7657 06:41-0400Pulse (Heart Rate)64 /min [facility] [employer], ZN62-35-0277 04:30-0400Body Dlypkywibbo85.01 [degF][facility] CenterPlatform[facility], PH65-12-3109 04:30-0400Body pdywxx91.92 kgIn[facility], KZ74-68-0642 04:30-0400Pulse Liisjwgs995 % [facility] CenterPlatform[facility], XV25-50-8081 04:30-0400Respiratory Rate18 /min [facility] CenterPlatform[facility], [place] Encounters Encounter DateEncounter TypeCare ProviderFacilityStart: 03-19-2025 End: 79-28-1707Hchessjid Result EncounterCorey Peggy DO Work Phone: noms External Department UnsolicitedStart: 03-19-2025 End: 20-71-3023Unirdwecw Result EncounterCorey Peggy DO Work Phone: noms External Department UnsolicitedStart: 03-17-2025 End: 01-08-4783Abvradovt Result EncounterHazel Romero NP Work Phone: noms External Department UnsolicitedStart: 03-17-2025 End: 08-96-0469Bbbwacpku Result EncounterHazel Romero NP Work Phone: no External Department UnsolicitedStart: 03-12-2025 End: 92-93-9633Dgdhlreo flow sheetKristina Heather DIRECTOR CLOUD TRANSFORMATION Work Phone: [facility] OBGYNComment on above:Hemorrhoids, unspecified hemorrhoid type (Primary Dx); Third trimester ([facility]); 33 weeks gestation of ([facility])Start: 03-12-2025 End: 82-82-1907abkkglinulKRSWNVIQ EBERLYNot AvailableStart: 03-12-2025 End: 68-81-4130Vyxash flowsheetKristina Heather DIRECTOR CLOUD TRANSFORMATION Work Phone: [facility] OBGYNStart: 03-12-2025 End: 69-13-7704Ciomrj flowsheetKristina Heather DIRECTOR CLOUD TRANSFORMATION Work Phone: [facility] OBGYNStart: 02-27-2025 End: 84-55-8285dldzlfrgawLEFYJ FAZIONot AvailableStart: 02-25-2025 End: 59-78-3558Jrnmwx flowsheetCorey Peggy DO Work Phone: [facility] OBGYNStart: 02-25-2025 End: 58-02-4002Tteolm flowsheetCorey Peggy DO Work Phone: [facility] OBGYNStart: 02-25-2025 End: 40-18-8625Paceusih flow sheetCorey Peggy DO Work Phone: [facility] [place] OBGYNComment on above:Third trimester ([facility]); 31 weeks gestation of ([facility]); POTS (postural orthostatic tachycardia syndrome); Pain of right lower extremityStart: 02-25-2025 End: 45-98-0353cosekbijorYBGEY FAZIONot AvailableStart: 02-11-2025 End: 90-85-3867Pwtbyu flowsheetKristina Heather DIRECTOR CLOUD TRANSFORMATION Work Phone: [facility] [place] OBGYNStart: 02-11-2025 End: 09-49-6513Gvocmz flowsMoedayton Heather PURCELL Work Phone: [facility] [place] OBGYNStart: 02-11-2025 End: 12-35-0882Vdgtoxva flow Lea Sanchezerly DIRECTOR CLOUD TRANSFORMATION Work Phone: [facility] [place] OBGYNComment on above: size inconsistent with dates ([facility]) (Primary Dx); Third trimester ([facility]); 29 weeks gestation of ([facility])Start: 02-11-2025 End: 67-07-3194lsfpuaojbwFVJFETGT EBBANDARNot AvailableStart: 01-29-2025 End: 45-94-2130Ampcwiprn Result EncounterJayla DA SILVA Work Phone: [facility] External Department UnsolicitedStart: 01-29-2025 End: 63-90-3499Lmygcqlzr Result EncounterJayla DA SILVA Work Phone: [facility] External Department UnsolicitedStart: 01-28-2025 End: 87-82-4587Ovhmpi Izzy DA SILVA Work Phone: [facility] OBGYNStart: 01-28-2025 End: 61-83-3162Xyvrxa Izzy DA SILVA Work Phone: [facility] [place] OBGYNStart: 01-28-2025 End: 03-27-4830Autfcgqn flow Nathaniel DA SILVA Work Phone: [facility] [place] OBGYNComment on above:Second trimester ([facility]); 27 weeks gestation of ([facility]); Elevated glucose tolerance testStart: 01-28-2025 End: 89-27-8077ngiqpueqxzIBB RAMEYNot AvailableStart: 01-27-2025 End: 46-34-8417Kniltucld Result EncounterCorey Peggy DO Work Phone: [facility] External Department UnsolicitedStart: 01-27-2025 End: 40-17-3665Hwzubeqwg Result EncounterCorey Peggy DO Work Phone: [facility] External Department UnsolicitedStart: 01-24-2025 End: 50-68-1300tnvsdqrnaaFWMYZGerman Hospitaltart: 01-21-2025 End: 09-99-1550Ghdhmbmib Result EncounterJayla DA SILVA Work Phone: [facility] External Department UnsolicitedStart: 01-21-2025 End: 52-22-0596Qefroalhu Result EncounterJayla DA SILVA Work Phone: [facility] External Department UnsolicitedStart: 01-16-2025 End: 95-25-2038Bjrwef flowsheetCorey Peggy DO Work Phone: [facility] [place] OBGYNStart: 01-16-2025 End: 88-65-8770Qpyfjg flowsheetCorey Peggy DO Work Phone: [facility] [place] OBGYNStart: 01-16-2025 End: 20-68-0654Bymqzhwq flow sheetCorey Peggy DO Work Phone: [facility] [place] OBGYNComment on above:25 weeks gestation of ([facility]); Second trimester ([facility]); Palpitations; Syncope, unspecified syncope type; Gastroesophageal reflux in ([facility])Start: 01-16-2025 End: 04-46-4497oktfikfbgaIXZVO FAZIONot AvailableStart: 01-07-2025 End: 11-38-5276Mjhebw Izzy DA SILVA Work Phone: [facility] OBGYNStart: 01-07-2025 End: 38-03-4317Wzhawz Izzy DA SILVA Work Phone: [facility] [place] OBGYNStart: 01-07-2025 End: 01-50-9203Kxdmvxwc flow sheetJayla DA SILVA Work Phone: [facility] [place] OBGYNComment on above:Second trimester ([facility]); 23 weeks gestation of ([facility]); Palpitations; TachycardiaStart: 01-07-2025 End: 76-59-7316xxkxqoyljeVRB RAMEYNot AvailableStart: 12-31-2024 End: 19-45-1396Ywnbakns flow sheetCorey Peggy DO Work Phone: [facility] [place] OBGYNComment on above:Second trimester ([facility]); 23 weeks gestation of ([facility]); Diabetes mellitus screeningStart: 12-31-2024 End: 13-63-0433ukqecgtqkbOBBAE FAZIONot AvailableStart: 12-31-2024 End: 40-91-2944Bljcxo flowsheetCorey Peggy DO Work Phone: [facility] [place] OBGYNStart: 12-31-2024 End: 66-46-7353Swfsbq flowsheetCorey Peggy DO Work Phone: [facility] [place] OBGYNStart: 12-10-2024 End: 19-03-6036ddmxtubpfqRIGCQ R FAZIOProMedica [facility] HospitalStart: 12-03-2024 End: 87-82-3565Miscki flowsheetJayla DA SILVA Work Phone: [facility] BCP OBStart: 12-03-2024 End: 81-19-5357Itnrbz flowsheetJayla DA SILVA Work Phone: [facility] OBStart: 12-03-2024 End: 15-10-2474Qwbnsiay flow sheetJayla DA SILVA Work Phone: [facility] BCP OBComment on above:Second trimester ([facility]); 19 weeks gestation of ([facility])Start: 12-03-2024 End: 70-27-2290fysenwskiiRKR RAMEYNot AvailableStart: 11-12-2024 End: 89-85-8106Arneeo consultation new/estab patient 58 Zahra Peres MD Work Phone: [phone]-Hckvj [facility] Comment on above:Adnexal mass (Primary Dx); 16 weeks gestation of ; Uterine fibroids affecting in second trimester; Localized swelling of right lower extremityStart: 11-12-2024 End: 00-06-5116Lqbxep OnlyAmy Fabrice LPNMaternal- [facility] at [facility] CenterComment on above:Adnexal mass (Primary Dx); Uterine fibroids affecting in second trimester; Localized swelling of right lower extremityStart: 11-05-2024 End: 16-72-1181Yinksm flowsheetCorey Peggy DO Work Phone: noms BCP OBStart: 11-05-2024 End: 43-91-5179Elytbe flowsheetCorey Peggy DO Work Phone: noms BCP OBStart: 11-05-2024 End: 79-49-2591Rnwovdhbb Result EncounterCorey Peggy DO Work Phone: noms External Department UnsolicitedStart: 11-05-2024 End: 45-66-1869Vlsrqqsj Result EncounterCorey Peggy DO Work Phone: noms External Department UnsolicitedStart: 11-05-2024 End: 93-11-9130Jodfldx encounter procedureCorey Peggy DO Work Phone: [facility] Work Phone: Start: 11-05-2024 End: 06-18-7080Nmcwasko preventive med est patient 18-39 yrsCorey Peggy DO Work Phone: noms BCP OBComment on above:Well woman exam with routine gynecological exam; Second trimester ([facility]); 15 weeks gestation of ([facility]); Vaginal discharge; STD exposureStart: 11-05-2024 End: 51-75-4419umzuvowreoWtoew [facility] Work Phone: Start: 11-05-2024 End: 15-28-2909Uvhoddmr ReferredCorey Peggy-LAB [facility] HospStart: 10-08-2024 End: 46-25-6147Nuwfmfzm flow sheetCorey Peggy DO Work Phone: noms BCP OBComment on above:11 weeks gestation of ; First trimester ; Other constipation; Gastroesophageal reflux in pregnancyStart: 10-08-2024 End: 29-60-4133syhvsborbhNJRGU FAZIONot AvailableStart: 10-08-2024 End: 90-62-1211Flunrm flowsheetCorey Peggy DO Work Phone: NOZK BCP OBStart: 10-08-2024 End: 71-12-0478Qrhhig flowsheetCorey Peggy DO Work Phone: NOKW BCP OBStart: 09-24-2024 End: 39-49-3997Yntpcoghw Result EncounterCorey Peggy DO Work Phone: NOM[facility] External Department UnsolicitedStart: 09-24-2024 End: 26-17-8046Qkimbnovm Result EncounterCorey Peggy DO Work Phone: noms External Department UnsolicitedStart: 09-19-2024 End: 78-67-2171Zbkkoh outpatient visit 5 minutesNoms Bcp Ob Peggy NurseNOMS BCP OBComment on above:GA: 4n5pOtlvy: 09-19-2024 End: 74-99-3757yzjpvweuscVPVRB FAZIONot AvailableStart: 08-28-2024 End: 66-90-6737tteogyedtfUXWPV FAZIONot AvailableStart: 08-26-2024 End: 34-30-0793Ssewzhpdt Result EncounterCorey Peggy DO Work Phone: NOET External Department UnsolicitedStart: 08-26-2024 End: 57-18-5072Ayyzhoiqw Result EncounterCorey Peggy DO Work Phone: NOCE External Department UnsolicitedStart: 08-24-2024 End: 24-79-3261Zbasjxkre Result EncounterCorey Peggy DO Work Phone: NOZF External Department UnsolicitedStart: 08-24-2024 End: 81-18-5310Ikshkicln Result EncounterCorey Peggy DO Work Phone: NOKO External Department UnsolicitedStart: 08-22-2024 End: 92-49-5460Uchdruauq Result EncounterCorey Peggy DO Work Phone: NODL External Department UnsolicitedStart: 08-22-2024 End: 37-75-0710Xvrmmxpoc Result EncounterCorey Peggy DO Work Phone: NOMS External Department UnsolicitedStart: 08-20-2024 End: 44-35-1306Ynomofjgj Result EncounterCorey Peggy DO Work Phone: NOMS External Department UnsolicitedStart: 08-20-2024 End: 32-57-6112Pnqwsyvzx Result EncounterCorey Peggy DO Work Phone: NOMS External Department UnsolicitedStart: 08-17-2024 End: 80-23-5644Vmbivnpuy Result EncounterCorey Peggy DO Work Phone: NOMS External Department UnsolicitedStart: 08-17-2024 End: 77-63-1889Hknukaqcf Result EncounterCorey Peggy DO Work Phone: NOMS External Department UnsolicitedStart: 08-15-2024 End: 01-84-2358Boqdjicot Result EncounterCorey Peggy DO Work Phone: NOMS External Department UnsolicitedStart: 08-15-2024 End: 45-61-0822Idjueecgb Result EncounterCorey Peggy DO Work Phone: NOMS External Department UnsolicitedStart: 06-14-2024 End: 33-74-3073Uwljrqccd Result EncounterCorey Peggy DO Work Phone: NOMS External Department UnsolicitedStart: 06-14-2024 End: 74-21-3025Fkrknckpp Result EncounterCorey Peggy DO Work Phone: NOMS External Department UnsolicitedStart: 04-18-2024 End: 65-62-9683Ibnyfrurb Result EncounterCorey Peggy DO Work Phone: NOMS External Department UnsolicitedStart: 04-18-2024 End: 89-23-0570Acqxgwhxo Result EncounterCorey Peggy DO Work Phone: noms External Department UnsolicitedStart: 04-10-2024 End: 96-98-3624Jxihbz flowsheetCorey Peggy DO Work Phone: [facility] BCP OBStart: 04-10-2024 End: 86-66-5773Yymkxp flowsheetCorey Peggy DO Work Phone: NOZD BCP OBStart: 04-10-2024 End: 57-37-8835Abdbay outpatient visit 15 minutesCorey Pegyg DO Work Phone: [facility] BCP OBComment on above:Encounter for infertility; Hormone disorderStart: 04-10-2024 End: 44-07-4336umupspserdHIWHC FAZIONot AvailableStart: 03-21-2024 End: 62-27-6245Nczdywcti Result EncounterCorey Peggy DO Work Phone: [facility] External Department UnsolicitedStart: 03-21-2024 End: 28-64-4355Qarktmrpf Result EncounterCorey Peggy DO Work Phone: [facility] External Department UnsolicitedStart: 02-17-2024 End: 79-86-5164Ijdmqfken Result EncounterCorey Peggy DO Work Phone: [facility] External Department UnsolicitedStart: 02-17-2024 End: 51-98-3512Qkvlftlsy Result EncounterCorey Peggy DO Work Phone: [facility] External Department UnsolicitedStart: 2024 End: 09-22-0763Kyjvxtbym Result EncounterCorey Peggy DO Work Phone: NON[facility] External Department UnsolicitedStart: 2024 End: 64-41-1936Lwjytkktw Result EncounterCorey Peggy DO Work Phone: [facility] External Department UnsolicitedStart: 2024 End: 72-09-1141Utfsuu outpatient visit 15 minutesCorey Peggy DO Work Phone: NONJ BCP OBComment on above:Female infertility; History of miscarriageStart: 01-05-2024 End: 37-26-8979Mjdrftl encounter procedureMD Zachary Mayes Work Phone: [facility] [place] Work Phone: Start: 01-05-2024 End: 30-26-4226xildfewuwdIL Zachary Alvarez Gerber Work Phone: [phone] [place] [address] Ctr Work Phone: Start: 12-28-2023 End: 57-80-9103Ukqplpl encounter procedureMD Zachary Mayes Work Phone: [phone] [place] [address] Ctr-Lab [facility] [place] Work Phone: Start: 12-28-2023 End: 71-79-0446beonxeuqnoWO Zachary Alvarez Gerber Work Phone: [phone] [place] [address] Ctr Work Phone: Start: 12-22-2023 End: 94-11-3518Xpyaflx encounter procedureMD Zachary Mayes Work Phone: [phone] [place] [address] Ctr-Lab [facility] [place] Work Phone: Start: 12-22-2023 End: 43-23-9009xfupsxuaobVL Zachary Alvarez Gerber Work Phone: [phone] [place] [address] Ctr Work Phone: Start: 12-20-2023 End: 13-62-6973Hmcrgrh encounter procedureMD Zachary Mayes Work Phone: [facility] Ctr-Ultrasound [facility] [place] Work Phone: Start: 12-20-2023 End: 61-63-6042hgtfihgpxiSA Zachary Alvarez Gerber Work Phone: [phone] [place] [address] Ctr Work Phone: Start: 12-09-2023 End: 95-31-9759Kjvdjkd encounter procedureMD Zachary Mayes Work Phone: [facility] Medical Ctr-Lab [facility] [place] Work Phone: Start: 12-09-2023 End: 73-88-5365ubhvrvnzytMZ Zachary Mayes Work Phone: [facility] Medical Ctr Work Phone: Start: 12-07-2023 End: 45-42-4248Cycbamj encounter procedureMD Zachary Mayes Work Phone: [phone] [place] [address] Medical Ctr-Lab [facility] [place] Work Phone: Start: 12-07-2023 End: 59-81-8878rbrtxsuvbrGM Zachary Mayes Work Phone: [phone] [place] [address] Medical Ctr Work Phone: Start: 12-05-2023 End: 61-91-8767Lpppcey encounter procedureMD Zachary Mayes Work Phone: [phone] [place] [address] Medical Ctr-Lab [facility] [place] Work Phone: Start: 12-05-2023 End: 48-65-3816svvyowuugqXD Zachary Mayes Work Phone: [phone] [place] [address] Ctr Work Phone: Start: 12-02-2023 End: 04-00-2001ntatjzhntmZB Zachary Mayes Work Phone: [phone] [place] [address] Ctr Work Phone: Start: 12-02-2023 End: 26-36-0303Eofyjex encounter procedureMD Zachary Mayes Work Phone: [facility] [place] Work Phone: Start: 05-01-2023 End: 83-10-5499Whloaqxgm to same day surgery centerMD Zachary Mayes Work Phone: [phone] [place] [address] Ctr-XRay [facility] [place] Work Phone: Start: 05-01-2023 End: 07-57-6922isvdmmfcpcTD Zachary Mayes Work Phone: [facility] Work Phone: Start: 03-21-2023 End: 80-38-7775pqvbdwsarjOvtpt [place] Other [place] iQiyi Other Start: 41-56-0071Avjuqt outpatient new 30 minutesAmber DeseanFPG Urgent Care ClydeStart: 02-01-2019 End: 87-36-6780Hkjjstjfy department patient visitVESUNIVERSITY OF MICHIGAN [facility]ST DIMITROVMercy Merit Health Woman's Hospitaltart: 02-01-2019 End: 69-81-9716Vfpjuhomo department patient visitVesjefferson memorial hospital Dago Work Phone: [facility] EDComment on above:Abdominal pain, right lower quadrant (Primary Dx); History of ovarian cyst Procedures DateProcedureProcedure DetailPerforming ClinicianStart: 21-35-7025YW OB CERVICAL LENGTHCorey Peggy DO Work Phone: Start: 19-66-8064XW OB BPP W NON-STRESSCorey Peggy DO Work Phone: Start: 04-10-2473YN OB PLACENTACorey Peggy DO Work Phone: Start: 00-64-0362RIT CBC WITH AUTO DIFFKristina Heather DIRECTOR CLOUD TRANSFORMATION Work Phone: Start: 47-97-4910Qzryz dip stick/tablet rgnt non-auto w/o micrscpKristina Heather DIRECTOR CLOUD TRANSFORMATION Work Phone: Start: 89-79-4822Hnbsu dip stick/tablet rgnt non-auto w/o micrscpCorey Peggy DO Work Phone: Start: 70-90-3423Flsoi dip stick/tablet rgnt non-auto w/o micrscpKristina Heather DIRECTOR CLOUD TRANSFORMATION Work Phone: Start: 93-62-0793NIZCXTL TOLERANCE 3 HOURJayla DA SILVA Work Phone: Start: 30-57-5015Htrpu dip stick/tablet rgnt non-auto w/o micrscpCorey Peggy DO Work Phone: Start: 91-58-8329ZRNWBFE 1 HOURCorey Peggy DO Work Phone: Start: 37-81-3764ZB ECHO DOPPLER COMPLETEJayla DA SILVA Work Phone: Start: 52-84-7747Msnmc dip stick/tablet rgnt non-auto w/o micrscpCorey Peggy DO Work Phone: Start: 46-29-3607Uuebp dip stick/tablet rgnt non-auto w/o micrscpAmy Cali DA SILVA Work Phone: Start: 07-15-2217Fkuyv dip stick/tablet rgnt non-auto w/o micrscpCorey Peggy DO Work Phone: Start: 83-90-8738Nyeur dip stick/tablet rgnt non-auto w/o micrscpAmy Cali DA SILVA Work Phone: Start: 33-44-7488EFQKG FREE CELL DNA (NON-[facility] SEND OUT)Not In System Ref ProvStart: 76-10-2071FWLUFWXVO VAGINITIS (HTRX)Jack Peggy DO Work Phone: Start: 02-67-5954Xrxrz dip stick/tablet rgnt non-auto w/o micrscpCorey Peggy DO Work Phone: Start: 30-34-6944PPH,APTIMA HPV,AGE GDLNCorey Peggy DO Work Phone: Start: 92-59-6617GZNSLDJZW REQUEST FOR LAB CORPCorey Peggy DO Work Phone: Start: 83-30-5620Xuzmx dip stick/tablet rgnt non-auto w/o micrscpCorey Peggy DO Work Phone: Start: 44-98-8274ZKI HEMOGLOBIN H6UKtcel Peggy DO Work Phone: Start: 69-35-7150Kewsd dip stick/tablet rgnt non-auto w/o micrscpCorey Peggy DO Work Phone: Start: 86-44-5950QAY PREG QUANT HCGCorey Peggy DO Work Phone: Start: 90-99-0910UIS PREG QUANT HCGCorey Peggy DO Work Phone: Start: 80-46-3872CZI PREG QUANT HCGCorey Peggy DO Work Phone: Start: 31-27-8019ZJG PREG QUANT HCGCorey Peggy DO Work Phone: Start: 22-56-5634JLD PREG QUANT HCGCorey Peggy DO Work Phone: Start: 91-96-5970XQK PREG QUANT HCGCorey Peggy DO Work Phone: Start: 36-75-2472ZQC PROGESTERONECorey Peggy DO Work Phone: Start: 42-57-4610KYQ PROGESTERONECorey Peggy DO Work Phone: Start: 72-67-9301NNC PREG QUANT HCGCorey Peggy DO Work Phone: Start: 80-00-3058LAN PROGESTERONECorey Peggy DO Work Phone: Start: 23-68-1329OEG HEMOGLOBIN X4NChncl Peggy DO Work Phone: Start: 76-35-6870Oriyjlcezl ultrasound of gravid uterusMD Zachary Mayes Work Phone: Start: 72-03-0252Cnbcavpyiz microscopic onlyVESELIN DIMITROVStart: 84-56-2374Sqfkn test visual color cmprsn methsVESELIN DIMITROVStart: 54-34-9056Exbhc dip stick/tablet rgnt auto w/o microscopyVESELIN DIMITROVStart: 62-56-2032Fmneh count complete auto&auto difrntl wbcVESELIN DIMITROVStart: 51-52-1160Ijkuyzjeieljg metabolic panelVESELIN DIMITROVStart: 88-95-9647Cigytecscy microscopic onlyVeselin Dago Work Phone: start: 09-21-0323Padpr test visual color cmprsn methsVeselin Dago Work Phone: start: 87-41-9442Hzvpg dip stick/tablet rgnt auto w/o microscopyVeselin Dago Work Phone: start: 57-23-7457Zshoc count complete auto&auto difrntl wbcVeselin Dago Work Phone: start: 39-84-1311Zdgwgcyzwbjpz metabolic panelVeselin Dago Work Phone: Plan of Treatment DateCare ActivityDetailAuthorStart: 29-57-5490Zagkm BMI ScreeningAdult BMI ScreeningProParkview Health Bryan Hospitalca Health SystemStart: 20-15-0598Unxdfga ScreeningTobacco ScreeningProParkview Health Bryan Hospitalca Health SystemStart: 03-26-2025 End: 54-10-7756Sbczhws encounter eguiykmba13/12/2025 2:40 PM EST Routine [facility] [place] [facility] [address] [place], [id number] Jack Woods DO [address] [place] [address] [facility] OBGYNStart: 03-12-2025 End: 22-20-1249Rcahumy encounter procedureNOMS [place]in Waltersment on above: ArrivedStart: 02-27-2025 End: 76-22-7882Aceltlppuegd / ancillary services opzxrimddz58/16/2025 11:00 AM EDT Ancillary Procedure [facility] [address] [place] [address] [facility] [place] OBGYNStart: 02-25-2025 End: 90-94-4500MO.doppler Lower extremity vein - rightVascular US lower extremity venous duplex right Imaging Routine Pain of right lower extremity Expected: 02/25/2025, Expires: 02/25/2026[facility] Work Phone: comment on above:Expected: 02/25/2025, Expires: 02/25/2026Start: 02-25-2025 End: 44-08-5366Fjmzdga encounter procedureNOMS [place] OBGYNComment on above: ArrivedStart: 02-19-2025 End: 08-90-2279Cabgoxnhuors / ancillary services xjsxlfevgo62/08/2025 11:30 AM EDT Ancillary Procedure [facility] [facility] [address] [place] [address] [place] [address] [facility] [place] OBGYNStart: 02-11-2025 End: 28-98-4540TK for pregnancyUS OB follow up transabdominal approach Imaging Routine size inconsistent with dates ([facility]) Expected: 02/11/2025, Expires: 06/13/2025[facility] Work Phone: comment on above:Expected: 02/11/2025, Expires: 06/13/2025Start: 02-11-2025 End: 73-35-7100Uzjyrcr encounter procedureNOMS [place] OBGYNComment on above: ArrivedStart: 01-28-2025 End: 39-91-1610Mytwrteiblm of glucose 3 hours after glucose challenge for glucose tolerance testGlucose tolerance, 3 hours Lab Routine Elevated glucose tolerance test Expected: 01/28/2025 (Approximate), Expires: 01/28/2026[facility] Work Phone: comment on above:Expected: 01/28/2025 (Approximate), Expires: 01/28/2026Start: 01-28-2025 End: 68-22-9786Bimnhcm encounter procedureNOMS [place] OBGYNComment on above: ArrivedStart: 01-21-2025 End: 20-46-7236Emtkjcu encounter nfckuqipb05/09/2025 8:40 AM EDT Office Visit [facility] [address] [place] [id number] Jack Woods, DO [address] [place] [address] [facility] OBGYNStart: 01-16-2025 End: 38-80-9425Badkzgd encounter epgjgkquw46/04/2025 9:20 AM EDT Office Visit [facility] [address] [place] [address] Jack Woods, DO [address] [place] [address] ArrivedNOMS Sachin OBGYNComment on above:ArrivedStart: 32-94-3936Yhtwtwekw vaccinationInfluenza VaccineTrinity Health System East Campus SystemStart: 01-07-2025 End: lead ECGECG 12 lead unit performed ECG Routine Palpitations Expected: 01/07/2025 (Approximate), Expires: 01/07/2026[facility] Work Phone: comment on above:Expected: 01/07/2025 (Approximate), Expires: 01/07/2026Start: 01-07-2025 End: 68-65-4775Jgodxjqfhtrpyc 2D completeEchocardiogram 2D complete Echocardiography Routine Palpitations Tachycardia Expected: 01/07/2025 (A pproximate), Expires: 01/07/2027[facility] HealthcareComment on above:Expected: 01/07/2025 (Approximate), Expires: 01/07/2027Start: 01-07-2025 End: 24-49-8573Jdulbsu encounter ryjkqrale33/26/2025 1:50 PM EDT Office Visit [facility] [facility] [address] [place] [address] Jayla Art PA [address] [place] [address] ArrivedRIMMA [place] OBGYNComment on above:ArrivedStart: 12-31-2024 End: 36-93-3659Rwpwmox encounter wagxaqjee53/19/2025 2:10 PM EDT Routine [facility] [facility] [address] [place], [id number] Jack Woods, [address] [place] [address] ArrivedRIMMA [place] OBGYNComment on above:ArrivedStart: 12-31-2024 End: 62-60-1589WTZ panel - Blood by Automated countCBC Lab Routine Diabetes mellitus screening Expected: 12/31/2024 (Approximate), Expires: 12/31/2025[facility] Work Phone: comment on above:Expected: 12/31/2024 (Approximate), Expires: 12/31/2025Start: 12-31-2024 End: 90-91-8111Skqujjhedgo of glucose 1 hour after glucose challenge for glucose tolerance testGlucose tolerance, 1 hour Lab Routine Diabetes mellitus screening Expected: 12/31/2024 (Approximate), Expires: 12/31/2025[facility] HealthcareComment on above:Expected: 12/31/2024 (Approximate), Expires: 12/31/2025Start: 12-10-2024 End: 66-85-0100Mjdpwxj encounter fhcuxqhbd48/29/2025 1:30 PM EDT Appointment [facility] [place] [address] [place] [address] Usojkwse Medicine [facility] Hospitaltart: 12-03-2024 End: 21-01-6392Mabsvic encounter procedureNO [facility] OBComment on above:Second trimester ([facility])Start: 11-12-2024 End: 47-04-0691XK Pelvis WO contrastMR pelvis without contrast Imaging Routine Adnexal mass 16 weeks gestation of Expected: 11/12/2024, Expires: 11/12/2025[facility] Work Phone: comment on above:Expected: 11/12/2024, Expires: 11/12/2025Start: 11-12-2024 End: 34-13-2153DA MFM with or without consultUS MFM with or without consult Imaging Routine Adnexal mass Uterine fibroids affecting insecond trimester Localized swelling of right lower extremity Expected: 11/12/2024, Expires: 11/12/2025[employer] Work Phone: comment on above:Expected: 11/12/2024, Expires: 11/12/2025Start: 11-12-2024 End: 16-40-0324IN.doppler Lower extremity vein - rightVas venous duplex insufficiency lwr rt Vascular Ultrasound Routine Localized swelling of right lower extremity Expected: 11/12/2024, Expires: 11/12/2025[facility] Comment on above:Expected: 11/12/2024, Expires: 11/12/2025Start: 11-05-2024 End: 04-96-9179Guerc fetoprotein, maternalAlpha fetoprotein, maternal Lab Routine Second trimester ([facility]) 15 weeks gestation of ([facility]) Expected: 11/05/2024 (Approximate), Expires: 05/07/2025[facility] Comment on above:Expected: 11/05/2024 (Approximate), Expires: 05/07/2025Start: 11-05-2024 End: 34-09-3711Ooybvkq encounter procedureNOMS BCP OBComment on above:Arrived Start: 14-41-1891JipyjqjgyCleveland Clinic Mercy Hospitaltart: 10-08-2024 End: 35-63-3452Chnlldc encounter procedureNOMS BCP OBComment on above:Arrived Start: 09-19-2024 End: 99-23-9376ZFN/RhABO/Rh Lab Routine Missed menses , unspecified gestational age Expected: 09/19/2024 (Approximate), Expires: 09/19/2025[facility] HealthcareComment on above:Expected: 09/19/2024 (Approximate), Expires: 09/19/2025Start: 09-19-2024 End: 83-78-5985Kacyx type and Indirect antibody screen panel - BloodType and screen Lab Routine Missed menses , unspecified gestational age Expected: 09/19/2024 (Approximate), Expires: 09/19/2025[facility] Work Phone: comment on above:Expected: 09/19/2024 (Approximate), Expires: 09/19/2025Start: 09-19-2024 End: 68-46-2974Eqepb of abuse panel - Urine by Screen methodRapid drug screen, urine Lab Routine , unspecified gestational age Encounter for supervision of normal first in first trimester Expected: 09/19/2024 (Approximate), Expires: 09/19/2025[facility] HealthcareComment on above:Expected: 09/19/2024 (Approximate), Expires: 09/19/2025Start: 09-19-2024 End: 90-33-5263yirxniwuml48/08/2025 1:30 PM EDT Initial [facility] [place] [address] POWN BCP OBStart: 09-19-2024 End: 01-78-3638Amptpftqtsvo / ancillary services rrykfnphtf47/08/2025 1:00 PM EDT Ancillary Procedure [facility] [place] [address] CKQQ BCP OBStart: 08-28-2024 End: 95-78-6923Sessblyltbpc / ancillary services doekisljfy13/16/2025 8:30 AM EDT Ancillary Procedure [facility] [place] [address] OEYK BCP OBStart: 04-10-2024 End: 35-01-7724Tilkgfnaslozt hormone (AMH)Antimullerian hormone (AMH) Lab Routine Hormone disorder Expected: 04/10/2024 (Approximate), Expires: 04/10/2025 [facility] Work Phone: comment on above:Expected: 04/10/2024 (Approximate), Expires: 04/10/2025Start: 04-10-2024 End: 01-19-5804Gmnibbv encounter vmoouvagg39/27/2024 11:10 AM EST Office Visit [facility] OB [address] [place] [phone] Jack Woods, DO [address] [place] [address] [facility]rived[facility] OBComment on above:ArrivedStart: 2024 End: 28-48-5708Tbxzryy encounter ppvgvoiju92/24/2024 1:20 PM EDT Office Visit [facility] OB [address] [place] [address] Jack Woods, DO [address] [place] [address] [facility] OBStart: 17-37-5555TJlT,Tdap and Td Vaccines (2 - Td or Tdap)DTaP,Tdap and Td Vaccines (2 - Td or Tdap)[facility]: 12-24-7735Frlhvlchx for malignant neoplasm of cervixPap Smear [facility]: 56-87-6716Seoddewzx vaccinationFlu vaccine (#1) [facility]: 37-76-7380Jlexj BMI Follow Up PlanAdult BMI Follow Up PlanFormerly [facility] Hospital [facility] Sur[facility] Countytart: 83-28-8393Pidlgnzqhg ScreeningDepression ScreeningUniversity Hospitals Elyria Medical CenterBacteria identified in Urine by CultureUrine culture Microbiology Routine Missed menses Ordered: 09/19/2024[facility] Comment on above:Ordered: 5CBC W Auto Differential panel - BloodCBC and differential Lab Routine Missed menses , unspecified gestational age Ordered: 09/19/2024[facility] HealthcareComment on above:Ordered: 5CBC W Auto Differential panel - BloodCBC and differential Lab Routine Third trimester ([facility]) Ordered: 03/12/2025[facility] Work Phone: comment on above:Ordered: 03/12/2025HLAMYDIA TRACHOMATIS (GENITO/STI)CHLAMYDIA TRACHOMATIS (GENITO/STI) Lab Routine STD exposure Ordered: 11/05/2024[facility] HealthcareComment on above:Ordered: 11/05/2024 Cytology Cervical or vaginal smear or scraping studyPap Smear Pathology and Cytology Routine Well woman exam with routine gynecological exam Ordered: [facility] HealthcareComment on above:Ordered: 11/05/2024Hemoglobin A1c/Hemoglobin.total in BloodHemoglobin A1c Lab Routine Missed menses , unspecified gestational age Ordered: 09/19/2024[facility] HealthcareComment on above: Ordered: 09/19/2024Hepatitis B virus surface Ag [Presence] in Serum or Plasma by ImmunoassayHepatitis B surface antigen Lab Routine Missed menses , unspecified gestational age Ordered: 09/19/2024[facility] HealthcareComment on above: Ordered: 09/19/2024Hepatitis C virus Ab [Presence] in Serum or Plasma by ImmunoassayHepatitis C antibody Lab Routine Missed menses , unspecified gestational age Ordered: 09/19/2024[facility] HealthcareComment on above:Ordered: 09/19/2024HIV-1/HIV-2 antigen/antibody combination immunoassayHIV-1 and HIV-2 antibodies Lab Routine Missed menses , unspecified gestational age Ordered: 09/19/2024[facility] HealthcareComment on above:Ordered: 09/19/2024Neisseria gonorrhoeae DNA [Presence] in Unspecified specimen by DARIUS with probe detection Neisseria gonorrhea DNA probe, direct Lab Routine STD exposure Ordered: 11/05/2024[facility] HealthcareComment on above:Ordered: 11/05/2024Progesterone [Mass/volume] in Serum or PlasmaKettering Health Behavioral Medical CenterReagin Ab [Presence] in Serum by RPRRPR Lab Routine Missed menses , unspecified gestational age Ordered: 09/19/2024[facility] HealthcareComment on above:Ordered: 09/19/2024Rubella antibody, IgGRubella antibody, IgG Lab Routine Missed menses , unspecified gestational age Ordered: 09/19/2024[facility] HealthcareComment on above:Ordered: 09/19/2024SURESWAB(R) ADVANCED VAGINITIS PLUS, TMASURESWAB(R) ADVANCED VAGINITIS PLUS, TMA Pathology and Cytology Routine Vaginal discharge Ordered: 11/05/2024[facility] Work Phone: comment on above:Ordered: 11/05/2024 Immunizations Immunization DateImmunizationNotesCare IqziedfjArjkowbb86-73-8436snsybwzgb virus vaccine, unspecified formulationGuadalupe Peres MD Work Phone: [facility] Payers DatePayer CategoryPayerPolicy [id number] Health Medical Center Care - PPOANTHEM Member Subscriber Plan / Payer (Effective 2024-Present) Name: Daphney Al Relation to Subscriber: Self Name: Daphney Al PayerID: [id number] (NA) Type: Not on file Address: [address] [place] [id number] Medical Center 1.2.840.987027.1.13.693.2.7.9.199389.84925[id number] 27-62-4015[facility] [id number] 2.16.840.3.997498.6365-20-2024 Ggmo-dprx8h22999-0l83blgq9p29688-5z06-7t71-3k65-5b60434rl07v09-57-7256Qfofcqo Health Insurance 1.2.840.871060.1.13.693.2.7.3.283180.71[id number] UnknownBCBS BCBS - [place] PPO xxxxxxxxxxxx 2014-Present [address] [place], [place] [address]lxdraswfswdd 1.2.840.301402.1.13.239.2.7.3.888785.33801-98-8482Wdvgfgw [id number] 2.16840.1.259389.3.57[id number] 2.16840.1.878190.3.57[id number] 2.16840.1.843817.3.57[id number] 2.16840.1.498681.3.57[id number] 2.16840.1.850384.3.579.[id number] 2.16840.1.726300.3.579.[id number] 2.16840.1.195056.3.579.2.164521-55-8124Hlufokh15189108 2.16840.1.443689.3.579.2.488124-23-6911Zbcbrhy61341512 2.16840.1.348336.3.579.2.4[id number] 2.16840.1.442690.3.579.2.670949-84-6982Gduzuwa62151587 2.16840.1.106920.3.579.2.824413-37-4574Nhzdqht41696524 2.16840.1.835502.3.579.2.0[id number] 2..1.808727.3.579.2.359714-06-1680Dukbjaw36357127 2..1.815529.3.579.2.732385-53-1075Kcshsjc9469934 2..1.921314.3.579.2.662331-88-2165Dlpvhcn7350989 2..1.548547.3.579.2.029135-19-2447Uvzthsj1430759 2..1.608958.3.579.2.710035-04-9713Mmkodei3387656 2..1.032739.3.579.2.172438-70-4079Jgexrzi9393683 2..1.64905[id number] 93o0g396-y60p-75kv-ne81-2z98u574p8uuDfsdjlbTgtwsc /[id number] 11nv1c47-6455-4ez2-t83y-[id number] ..1.534822.3.579.2.744Tubipix06329143 2..1.181526.3.579.2.531 Vbwerfu69362081 ..1.213180.3.579.2.308Songmde11731328 2..1.832296.3.579.2.873Fsdjneq97843675 2..1.679216.3.579.2.531 Bsnoxpi90096586 2..1.385195.3.579.2.651Bpuwdxy93239985 2..1.462608.3.579.2.373Xoafonm82311813 2.16.840.1.911012.3.579.2.531 Fgsvihx79456670 2.16.840.1.581051.3.579.2.531 Social History DateTypeDetailFacilityStart: 02-01-2019 End: 36-81-8570Wacdats smoking status NHISNever smokerCleveland Clinic Mercy Hospitaltart: 02-01-2019 End: 93-60-0526Oxcjzot intakeNot [facility]: 2000 Sex Assigned At BirthNot on [facility]: 03-13-9284Guk Assigned At BirthFeHolzer Health Systemtart: 2024 End: 04-96-9978Jmrmbucec beverage intakeLifetime non-drinker (finding)[facility] HealthcareStart: 04-28-2023 End: 28-33-9516Ayxqgwf of Social functionNOOK HealthcareStart: 03-92-9755Sslcszn CommentCaffeine intake: 3-4 cups per daySANPETE VALLEY [facility]OSPITAL HealthcareStart: 08-06-2024 PregnancyNOOK HealthcareStart: 17-59-6817UdpLxvexy (finding)[facility] Hospitaltart: [id number] the past 12 months we worried whether our food would run out before we got money to buy more.Never [facility] Clinical Notes 03-21-2023 to 03-12-2025 Note Date & [id number] History of Present illness Narrative* Hazel Romero, JAZZY - 03/12/2025 2:40 PM EDT Reason for Appointment: Patient ID: Daphney Al is a 25 y.o. female who presents for Routine Visit Patient presents today for Return OB appointment. MEDICATIONS Current Outpatient Medications Medication Instructions aspirin 81 MG oral suspension ondansetron (Zofran) 4 MG tablet TAKE 1 TABLET BY MOUTH EVERY 6 HOURS NEEDED FOR NAUSEA AND VOMITING Vit w/Wz-Qhdskkvkq-XY (PNV PO) ALLERGIES Allergies Allergen Reactions Cephalexin [...] nursing note reviewed. Exam conducted with a sports medicine trainer present. Vitals: Estimated body mass index is 30.55 kg/m as calculated from the following: Height as of 02/06/24: 5' 6 . Weight as of this encounter: 189 lb 4 oz. BP: 102/72 Patient's last menstrual period was 07/23/2024. Assessment/Plan ICD-10-CM 1. Third trimester ([facility]) Z34.93 POCT urinalysis dipstick manually resulted 2. 33 weeks gestation of ([facility]) Z3A.33 Return OB: Patient presents today for [...] of: Hazel Romero NP documented in this encounterTwo Rivers Psychiatric [id number] History of Present illness Narrative* Lisa Prasad LPN - 02/25/2025 1:50 PM EDT Reason for Appointment: Patient ID: Daphney Al is a 25 y.o. female who presents for Routine Visit Patient presents today for Return OB appointment. MEDICATIONS Current Outpatient Medications Medication Instructions aspirin 81 MG oral suspension ondansetron (ZOFRAN) 4 mg, Oral, Every 6 hours PRN, Take 1 tablet by mouth every 6 hours as needed for nausea. Vit w/Mf-Xcksozdaf-LE (PNV PO) ALLERGIES Allergies[1] PROBLEMS Active Ambulatory Problems Diagnosis Date Noted No Active Ambulatory Problems Resolved Ambulatory Problems Diagnosis Date Noted No Resolved Ambulatory Problems Past Medical History: Diagnosis Date Acne vulgaris Endometriosis History of medical problems Miscarriage ([facility]) Ovarian cyst HISTORY PAST MEDICAL HISTORY SOCIAL [...] nursing note reviewed. Exam conducted with a sports medicine trainer present. Vitals: Estimated body mass index is 30.67 kg/m as calculated from the following: Height as of 02/06/24: 5' 6 . Weight as of this encounter: 190 lb. BP: 120/70 Patient's last menstrual period was 07/23/2024. ASSESSMENT & PLAN ICD-10-CM 1. Third trimester ([facility]) Z34.93 POCT urinalysis dipstick manually resulted 2. 31 weeks gestation of ([facility]) Z3A.31 3. POTS (postural orthostatic tachycardia syndrome) [...] Diagnostic lap-endometriosis TONSILLECTOMY 11/03/2016 documented in this encounterTwo Rivers Psychiatric [id number] History of Present illness Narrative* Hazel Romero [...] 6 hours as needed for nausea. Vit w/Fc-Qgjcohmqt-VH (PNV PO) ALLERGIES Allergies Allergen Reactions Cephalexin [...] vulgaris Endometriosis History of medical problems Miscarriage ([facility]) Ovarian cyst HISTORY PAST MEDICAL HISTORY SOCIAL HISTORY Past Medical History: Diagnosis Date Acne vulgaris Endometriosis History of medical problems recurrent strep Miscarriage ([facility]) Ovarian cyst Social History Tobacco Use [...] nursing note reviewed. Exam conducted with a sports medicine trainer present. Vitals: Estimated body mass index is 30.18 kg/m as calculated from the following: Height as of 02/06/24: 5' 6 . Weight as of this encounter: 187 lb. BP: 118/72 Patient's last menstrual period was 07/23/2024. ASSESSMENT & PLAN ICD-10-CM 1. Third trimester ([facility]) Z34.93 POCT urinalysis dipstick manually resulted 2. 29 weeks gestation of ([facility]) Z3A.29 Return OB: Patient presents today for a routine obstetrics appointment. Patient is currently 29w0d . Patient states she is doing well but has complaints of being tired due to current . Patient has verbalizes frequent movement. labor precautions was discussed/given and patient was instructed to perform kick counts three times a day. Patient has been evaluated by [facility] Cardiology with a history of syncopal [...] of: Hazel Romero NP documented in this encounterTwo Rivers Psychiatric [id number] History of Present illness Narrative* REKHA Ott [...] 6 hours as needed for nausea. Vit w/Yv-Yqvgbxort-UI (PNV PO) ALLERGIES Allergies Allergen Reactions Cephalexin [...] ICD-10-CM 1. Second trimester ([facility]) Z34.92 POCT urinalysis dipstick manually resulted 2. 27 weeks gestation of ([facility]) Z3A.27 3. Elevated glucose tolerance test R73.09 [...] behalf of: REKHA Ott documented in this encounterTwo Rivers Psychiatric HospitalXkbjwmcnex87-11-0090 [facility] Reason for [...] negative for PE or any abnormalities. Her multi line claims adjuster ordered echo which came back normal. A [...] she cannot go b (more content not included)...[facility]09-04-2025 History of Present illness Narrative* Kelley Sepulveda, ENGRAVED ROLLER INSPECTOR - 01/16/2025 9:20 AM EDT Reason for Appointment: Patient ID: Daphney Al is a 24 y.o. female who presents for Routine Visit Patient presents today for Return OB appointment. MEDICATIONS Current Outpatient Medications Medication Instructions aspirin 81 MG oral suspension ondansetron (ZOFRAN) 4 mg, Oral, Every 6 hours PRN, Take 1 tablet by mouth every 6 hours as needed for nausea. Vit w/Pe-Ntlkwwwmk-TB (PNV PO) ALLERGIES Allergies Allergen Reactions Cephalexin [...] nursing note reviewed. Exam conducted with a sports medicine trainer present. Vitals: Estimated body mass index is 29.67 kg/m as calculated from the following: Height as of 02/06/24: 5' 6 . Weight as of this encounter: 183 lb 12.8 oz. BP: 120/78 Patient's last menstrual period was 07/23/2024. ASSESSMENT & PLAN ICD-10-CM 1. 25 weeks gestation of ([facility]) Z3A.25 POCT urinalysis dipstick manually resulted 2. Second trimester ([facility]) Z34.92 POCT urinalysis dipstick manually resulted 3. Palpitations R00.2 4. Syncope, unspecified syncope type R55 5. Gastroesophageal reflux in ([facility]) O99.619 K21.9 Patient presents today for a routine obstetrics appointment. Patient is currently 25w2d with a Estimated Date of Delivery: 04/29/25. Patient had spells where she passed out. Patient to have Cardiac Consult hopefully within the next week. Referral will be made today to Cardiology at [facility]. Patient has a EKG scheduled for Monday at 1pm. Patient voiced that she sees stars and then gets dizzy.Advised to increase protein and to remain off work until cleared by Cardiology. Patient to return to clinic 1 week. Documented by Kelley Sepulveda LPN on behalf of: Jack Woods DO documented in this encounterTwo Rivers Psychiatric HospitalPdxvojiyyz46-76-4644 History of Present illness Narrative* REKHA Ott [...] 6 hours as needed for nausea. Vit w/Ky-Vplnjissn-XB (PNV PO) pyridoxine (VITAMIN B-6) 25 mg, [...] vulgaris Endometriosis History of medical problems Miscarriage ([facility]) Ovarian cyst HISTORY PAST MEDICAL HISTORY SOCIAL [...] ICD-10-CM 1. Second trimester ([facility]) Z34.92 POCT urinalysis dipstick manually resulted iron polysaccharides (ProFe) 391.3 (180 Fe) MG capsule 2. 23 weeks gestation of ([facility]) Z3A.23 3. Palpitations R00.2 ECG 12 lead [...] behalf of: REKHA Ott documented in this encounterTwo Rivers Psychiatric [id number] History of Present illness Narrative* Lisa Prasad, ENGRAVED ROLLER INSPECTOR - 12/31/2024 2:10 PM EDT Reason for [...] 6 hours as needed for nausea. Vit w/Zu-Simgudjbv-VM (PNV PO) pyridoxine (VITAMIN B-6) 25 mg, [...] nursing note reviewed. Exam conducted with a sports medicine trainer present. Vitals: Estimated body mass index is 29.83 kg/m as calculated from the following: Height as of 02/06/24: 5' 6 . Weight as of this encounter: 184 lb 12.8 oz. BP: 112/62 Patient's last menstrual period was 07/23/2024. ASSESSMENT & PLAN ICD-10-CM 1. Second trimester ([facility]) Z34.92 POCT urinalysis dipstick manually resulted 2. 23 weeks gestation of ([facility]) Z3A.23 POCT urinalysis dipstick manually resulted 3. [...] of: Jack Woods DO documented in this encounterTwo Rivers Psychiatric HospitalRcxldaddbv75-53-8344 History of Present illness Narrative* REKHA Ott [...] 6 hours as needed for nausea. Vit w/Tu-Pmalguwcy-AZ (PNV PO) pyridoxine (VITAMIN B-6) 25 mg, [...] ICD-10-CM 1. Second trimester ([facility]) Z34.92 POCT urinalysis dipstick manually resulted 2. 19 weeks gestation of ([facility]) Z3A.19 Return OB: Patient presents today for [...] behalf of: REKHA Ott documented in this encounterTwo Rivers Psychiatric HospitalLkcxfvfhbw70-28-4027 History of Present illness Narrative* Guadalupe Peres [...] nausea or vomiting., Disp: , Rfl: PNV 12-ckry-sqevhhmutycl-dha 29 mg iron-1 mg -350 mg comb [...] (2019) Romero's maternal- medicine :principles and practice [place], [place] : [employer] Sonographic diagnosis of ovarian torsion: accuracy and predictive factors. Monica R, Jeff N, Zion N, Sohan-Chelsea G, Bright I. J Ultrasound Med. 2011 Jan;30(9):1205-10. Adnexal masses in : An updated review. Olivia AM, Dorie I, Adelaide DOMÍNGUEZ, Nory H, Alexi AbernathyTanja [place]. [facility] J Med. 2017 Feb-Apr;7(4):153-157. doi: 10.4103/aj.AJM_[email or web address]_17. PMID: [id number] Uterine fibroids, affecting I reviewed the uterine [...] and evaluation of bilateral adnexal masses, through [facility] Recommend repeat growth ultrasound in the 3rd trimester, through primary OB, given known uterine fibroid Anticipate term vaginal delivery at local hospital Precautions regarding shortness of breath and chest pain were reviewed with the patient today DISPOSITION: At this point the patient is in complete care of her multi line claims adjuster. Thank you for allowing me to participate in the care of Daphney Al. If there any questions please do not hesitate to contact us. Guadalupe Peres MD Maternal- Medicine [place] [id number] [facility] [address] [place] [address] This document was created with [employer] technology. Though I make every effort to review the dictation as it is transcribed, on occasion the spoken word can be misinterpreted by the technology leading to inappropriate words, phrases, or sentences. This note is addressed to the requesting provider as a consultation for clinical guidance. Specificmedical abbreviations are occasionally used and those are generally approved by the [place]?Board of?Obstetrics and?Gynecology?as well as?Graham chan abbreviations. The above plan of care was based solely on the diagnoses for which a consultation was requested. ?More frequent testing may be indicated based on her other medical/obstetrical conditions. The management of other or medical conditions is beyond the scope of requested consultation and will c mick to be followed by the primary multi line claims adjuster or primary care provider. Note to patient: [...] risk Have you been seen here at [facility] in a previous ? No Recent ER visits or hospitalizations? No Bring blood sugar log or meter with you today? (Please bring them with you for every visit at [facility]) N/A Flu vaccine (Mar-July)? N/A Any concerns that you would like me to mention to the provider today? R calf bruising, +Homans sign, wants to make sure about cysts, feeling nervous about cervix being short, has never been this far along. Right calf = 36.4cm, Left calf = 39.0cm documented in this encounterUniversity [facility] History of Present illness Narrative* Lisa Prasad [...] 6 hours as needed for nausea. Vit w/Zm-Nudkouxit-LM (PNV PO) pyridoxine (VITAMIN B-6) 25 mg, [...] nursing note reviewed. Exam conducted with a sports medicine trainer present. Vitals: Estimated body mass index is 27.02 kg/m as calculated from the following: Height as of 02/06/24: 5' 6 . Weight as of this encounter: 167 lb 6.4 oz. BP: 106/68 Patient's last menstrual period was 07/23/2024. ASSESSMENT & PLAN ICD-10-CM 1. Well woman exam with routine gynecological exam Z01.419 Pap Smear 2. Second trimester ([facility]) Z34.92 POCT urinalysis dipstick manually resulted Alpha fetoprotein, maternal Alpha fetoprotein, maternal 3. 15 weeks gestation of ([facility]) Z3A.15 POCT urinalysis dipstick manually resulted Alpha fetoprotein, maternal Alpha fetoprotein, maternal 4. Vaginal discharge N89.8 SURESWAB(R) ADVANCED VAGINITIS PLUS, TMA 5. STD exposure Z20.2 CHLAMYDIA TRACHOMATIS (GENITO/STI) Neisseria gonorrhea DNA probe, direct Return OB/Annual Exam: Patient presents today for a annual exam/routine obstetrics appointment. Patient is currently 93a1jumvoxeoq. Patient states she is doing well but [...] of: Jack Woods DO documented in this encounterTwo Rivers Psychiatric HospitalBhouamotsp49-04-1797 History of Present illness Narrative* Lisa Prasad [...] 6 hours as needed for nausea. Vit w/Ld-Ocshhkxxh-NE (PNV PO) pyridoxine (VITAMIN B-6) 25 mg, [...] nursing note reviewed. Exam conducted with a sports medicine trainer present. Vitals: Estimated body mass index is [...] or undercooked meat, and stay away from [facility]. Patient has been consulted regarding [...] of: Jack Woods DO documented in this encounterTwo Rivers Psychiatric HospitalOittdrojnw43-35-4222 History of Present illness Narrative* Manjula Elias [...] the following prescription(s): aspirin, omeprazole, ondansetron, vit w/ft-kcxfdiggm-vq, and progesterone. Medical History: Active Ambulatory Problems [...] or undercooked meat, and stay away from [facility]. Patient has also been advised [...] by: Manjula Elias MA documented in this encounterTwo Rivers Psychiatric HospitalRnlmhwuibp05-92-1506 History of Present illness Narrative* Lisa Prasad, BRIANA - 04/10/2024 11:10 AM EST Reason for Appointment: Patient ID: Daphney Al is a 24 y.o. female who presents for Infertility Patient presents today for Fertility Follow Up appointment. MEDICATIONS Current Outpatient Medications Medication Instructions aspirin 81 MG oral suspension Vit w/Lh-Rlikuvgxc-BQ (PNV PO) ALLERGIES Allergies Allergen Reactions Cephalexin [...] nursing note reviewed. Exam conducted with a sports medicine trainer present. Vitals: Estimated body mass index is [...] Pt voiced understanding. Discussed LAST referral towards [place]. Documented by Lisa Prasad LPN on behalf of: Jack Woods DO documented in this encounterTwo Rivers Psychiatric HospitalOhxllqybwv62-15-2509 History of Present illness Narrative* Lisa Prasad LPN - 2024 1:20 PM EDT Reason for Appointment: Patient ID: Daphney Al is a 23 y.o. female who presents for Infertility Patient presents today for Fertility Follow Up appointment. MEDICATIONS Current Outpatient Medications Medication Instructions aspirin 81 MG oral suspension Vit w/Yh-Pkpzpfuil-VS (PNV PO) ALLERGIES Allergies Allergen Reactions Cephalexin [...] nursing note reviewed. Exam conducted with a sports medicine trainer present. Vitals: Estimated body mass index is [...] of: Jack Woods DO documented in this encounterTwo Rivers Psychiatric HospitalXzmejbnufx11-23-6679 Evaluation note* Encounter Date Diagnosis Assessment Notes [...] treatment plan. Patient left in stable condition Niko Niko Other Evaluation noteNo assessment information available [facility] Work Phone: Evaluation note* Diagnosis Encounter for infertility Hormone disorder Unspecified endocrine disorder documented in this encounter [facility]* Diagnosis Female infertility Female infertility of unspecified origin History of miscarriage Personal history of other genital system and obstetric disorders documented in this encounter [facility]* Diagnosis Missed menses , unspecified gestational age Encounter for supervision of normal first in first trimester Gastroesophageal reflux in Nausea and vomiting during documented in this encounter [facility]* Diagnosis 11 weeks gestation of First trimester state, incidental Other constipation Gastroesophageal reflux in documented in this encounter [facility] note* Diagnosis Adnexal mass- Primary Other specified symptom associated with female genital organs 16 weeks gestation of Uterine fibroids affecting in second trimester Localized swelling of right lower extremity documented in this encounter [facility] SystemEvaluation [facility]* Diagnosis Adnexal mass- Primary Other specified symptom associated with female genital organs Uterine fibroids affecting in second trimester Localized swelling of right lower extremity documented in this encounter [facility] SystemEvaluation note* Diagnosis Well woman exam with routine gynecological exam Routine gynecological examination Second trimester ([facility]) state, incidental 15 weeks gestation of ([facility]) Vaginal discharge Leukorrhea, not specified as infective STD exposure documented [facility]* Diagnosis Second trimester ([facility]) state, incidental 19 weeks gestation of ([facility]) documented in this encounter [facility]* Diagnosis Second trimester ([facility]) state, [...] Description Date Surgical History tonsillectomy Surgical Historylaparoscopy Niko Niko Other InstructionsNot on filedocumented in this encounter [facility] SystemInstructionsNot on filedocumented in this encounter [facility] SystemReason for referral (narrative)No reason for referral information availableSelect [facility] Work Phone: Summary Purpose Family History Relationship Condition Age at Onset Recorded Date/T juliette father Congestive heart failure Unknown Advance Directives TypeDate RecordedPatient RepresentativeExplanationAdvance Directives and Living WillPower of Facility Practice Specialist Advance Directive Response Recorded Date/ Time Advance Directives No August 08 7:47am Advance Directive Response Recorded Date/ Time Advance Directives No August 08 8:47am Discharge Instructions * Instructions* Keyla Leyva MD - 02/01/2019 Follow-up with FIBROUS PLASTERER * Attachments The following attachments cannot be sent through Care Everywhere. * Abdominal Pain (Icelandic) * Appendicitis (Icelandic) documented in this encounter Assessments Diagnosis Abdominal [...] section and content) DATE CREATED AUTHOR 02/01/2019 [facility] DATE CREATED AUTHOR AUTHOR'S ORGANIZ ATION 05/05/2023 [facility] DATE CREATED AUTHOR AUTHOR'S ORGANIZ ATION 11/13/2024 [facility] DATE CREATED AUTHOR AUTHOR'S ORGANIZ ATION 11/13/2024 [facility] DATE CREATED AUTHOR AUTHOR'S ORGANIZ ATION 12/12/2024 [facility] DATE CREATED AUTHOR AUTHOR'S ORGANIZ ATION 01/26/2025 [facility] DATE CREATED AUTHOR AUTHOR'S ORGANIZ ATION 03/14/2025 [facility] EPIC Reason for Visit (unrecogniz ed section and content) ReasonCommentsRoutine VisitSpecialtyDiagnoses / ProceduresReferred By ContactReferred To ContactObstetrics and Gynecology Diagnoses Enlarged & Heterogeneous Bilateral Ovaries 2.3cm Isoechoic Left-sided Lesion Possible Endometrioma Procedures [place] UNLISTED EVALUATION AND MANAGEMENT SERVICE [facility] [address] [place] [address] Jack Woods, DO [address] [place] [address] [place] [address] Phone: tel: fax: Referral IDStatusReasonStart DateExpiration DateVisits RequestedVisits [id number] PainRLQ pain x 1 hourReasonCommentsInfertilityReasonCommentsAmenorrheaReasonCommentsEnlarged & Heterogeneous Bilateral Ovaries2.3cm Isoechoic Left-sided LesionPossible EndometriomaReasonCommentsRoutine Visit Care Teams (unrecognized sec tion and content) Team Status: Active Member Role Status Dates Zachary Mayes MD Primary Care Provider Active Team Status: Inactive Member Role Status Dates Zachary Mayes MD Primary Care Provider Active Paloma Vazquez DOAttending ProviderActive Team Status: Inactive Member Role Status Dates Zachary Mayes MD Primary Care Provider Active Start: December 02, 2023 End: December 01enola Yoav Reardon MDAttending ProviderActiveStart: December 02, 2023 End: December 02, 2023 Team Status: Inactive Member Role Status Dates Zachary Mayes MD Primary Care Provider Active Start: December 05, 2023 End: December 04oreashish Peggy , DOAttending ProviderActiveStart: December 05, 2023 End: December 05, 2023 Team Status: Inactive Member Role Status Dates Zachary Mayes MD Primary Care Provider Active Start: December 07, 2023 End: December 06orey Peggy , DOAttending ProviderActiveStart: December 07, 2023 End: December 07, 2023 Team Status: Inactive Member Role Status Dates Zachary Mayes MD Primary Care Provider Active Start: December 09, 2023 End: December 08oreashish Peggy , DOAttending ProviderActiveStart: December 09, 2023 End: December 09, 2023 Team Status: Inactive Member Role Status Dates Zachary Mayes MD Primary Care Provider Active Start: December 20, 2023 End: December 19orey Peggy , DOAttending ProviderActiveStart: December 20, 2023 End: December 20, 2023 Team Status: Inactive Member Role Status Dates Zachary Mayes MD Primary Care Provider Active Start: December 22, 2023 End: December 21oreashish Peggy , DOAttending ProviderActiveStart: December 22, 2023 End: December 22, 2023 Team Status: Inactive Member Role Status Dates Zachary Mayes MD Primary Care Provider Active Start: December 28, 2023 End: December 27orey Peggy , DOAttending ProviderActiveStart: December 28, 2023 End: December 28, 2023 Team Status: Inactive Member Role Status Dates Zachary Mayes MD Primary Care Provider Active Start: January 05, 2024 End: January 04gal Woods DOAttending ProviderActiveStart: January 05, 2024 End: January 05, 2024Team MemberRelationshipSpecialtyStart DateEnd Alberto Mayes MD [address] [place] [phone] PCP - Hjymndr71/19/23 Paloma Vazquez DO [address] [place] [address] Referring PhysicianObstetrics and Tjisuqyxtf17/12/23Te MemberRelationship SpecialtyStart DateEnd Alberto Mayes MD [address] [phone] PCP [facility]05/02/23 Paloma Vazquez DO [address] [place] [address] Referring PhysicianObstetrics and Dtejrsvwbp22/12/23Te MemberRelationship SpecialtyStart DateEnd Date Alberto Mayes MD [address] [place] [phone] PCP Xcafnrh00/19/23 Paloma Vazquez DO [address] [place] [address] Referring PhysicianObstetrics and Tzmeptdqsp05/12/23Te MemberRelationship SpecialtyStart DateEnd Date Alberto Mayes MD [address] [place] [phone] PCP - Qszawhj58/19/23 Paloma Vazquez DO [address] [place] [address] Referring PhysicianObstetrics and Ctxpmugavq26/12/23Te MemberRelationship SpecialtyStart DateEnd Date Alberto Mayes MD [address] [place], [place] [address] [place] [place] [phone] PCP - Syvyfqw41/19/23 Paloma Vazquez DO [address] [place] [address] Referring PhysicianObstetrics and Eykrekxosc36/12/23Te MemberRelationship SpecialtyStart DateEnd Date Alberto Mayes MD [address] [place], [place] [address] [place] [phone] PCP - Hdercvk24/19/23 Paloma Vazquez DO [address] [place] [address] Referring PhysicianObstetrics and Exzmsglrvu08/12/23Te MemberRelationship SpecialtyStart DateEnd Date Alberto Mayes MD [address] [place] [address] PCP - Sarrtxd33/19/23 Paloma Vazquez DO [address] [place] [address] Referring PhysicianObstetrics and Pbnekvfajb93/12/23Te MemberRelationship SpecialtyStart DateEnd Date Alberto Mayes MD [address] [place] [address] PCP - Adkaugl29/19/23 Paloma Vazquez DO [address] [place] [address] Referring PhysicianObstetrics and Oycxdsiaac41/12/23Team MemberRelationship SpecialtyStart DateEnd Date Alberto Mayes MD [address] [place] [address] PCP - Wsasgrb62/19/23 Paloma Vazquez DO [address] [place] [address] Referring PhysicianObstetrics and Lfvrzygiyb80/12/23Team MemberRelationship SpecialtyStart DateEnd Date Alberto Mayes MD [address] [place] [address] PCP - Pthcvmm20/19/23 Paloma Vazquez DO [address] [place] [address] Referring PhysicianObstetrics and Jwkwbpqkin40/12/23 Team Status: Inactive Member Role Status Dates Jack Woods DO Attending Provider Active Start : November 05, 2024 End: November 05, 2024Team MemberRelationshipSpecialtyStart DateEnd Date Alberto Mayes MD [address] [place] [address] PCP - Qpplwns94/19/23 Paloma Vazquez DO [address] [address] [place] [address] Referring PhysicianObstetrics and Gadbgjjpce07/12/23Team MemberRelationship SpecialtyStart DateEnd Date Alberto Mayes MD PCP - [id number]/23Team MemberRelationshipSpecialtyStart DateEnd Date Alberto Mayes MD PCP - [id number]/23Team MemberRelationshipSpecialtyStart DateEnd Date Alberto Mayes MD PCP - [id number]/Team MemberRelationshipSpecialtyStart DateEnd Date Alberto Mayes MD PCP - [id number]/23Team MemberRelationshipSpecialtyStart DateEnd Date Alberto Mayes MD PCP - [id number]/23Team MemberRelationshipSpecialtyStart DateEnd Date Alberto Mayes MD PCP - Gtpatgf28/23Team MemberRelationshipSpecialtyStart DateEnd Date Alberto Mayes MD PCP - [id number]//23Team MemberRelationshipSpecialtyStart DateEnd Date Alberto Mayes MD PCP - [id number]//23Team MemberRelationshipSpecialtyStart DateEnd Date Alberto Mayes MD PCP - Lnrdghh92/19/23Te MemberRelationshipSpecialtyStart DateEnd Date Alberto Mayes MD [facility] - [place] [id number] MemberRelationshipSpecialtyStart DateEnd Date Alberto Mayes MD [facility] - [place] [address] MemberRelationshipSpecialtyStart DateEnd Date Alberto Mayes MD [facility] - [id number]/19/23 Goals (unrecognized section and content) Goals may [...] BE BASED ON THE PRIMARY CLINICAL RECORDS. [facility]. provides no warranty or guarantee of the accuracy or completeness of information in this document.
[2025-03-19 12:55] VITALS: BP 107/67; PULSE 88; TEMP 36.6
== END 2025-03-19 19:18 | disposition home or self-care (01) ==
PROVIDERS: Admitting Provider Obstetrics & Gynecology; PCP Family Medicine; Visit Provider Obstetrics & Gynecology
DX: O46.93 Antepartum hemorrhage, unspecified, third trimester (principal); Z3A.34 34 weeks gestation of pregnancy
CPT/HCPCS: 59050; 76815; 76817; 76818; 81001; 87086; 96365; 96376; G0378; G0379; J0736

== ENCOUNTER 2025-04-02 15:03 | Outpatient (REF) | payer BC, SELFPAY ==
--- OUTSIDE RECORDS SUMMARY | 2025-04-02 15:09 | XMS_ITS | CCD ---
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 Name Role Phone KEYLA LEYVA Attending Unavailable Unavailable Primary Care Provider Unavailcasimiro Anton Rina Unavailable MD Zachary Mayes Primary Care Provider DO Paloma Vazquez Attending Provider MD Zachary Mayes Primary Care Provider [phone] MD Jackie Reardon Attending Provider [phone] DO Jack Woods Attending Provider Paloma Vazquez DO Unavailable [phone] Gerber NO, Alberto Primary Care Provider [phone] Gerber NO, [facility] [place] Primary Care Provider Jack Woods DO [...] of OnsetReaction(s) Facility (20 sources)Cephalexin; Translations: [CEPHALEXIN]Drug Yhgppms71-86-5183Kpzixz And Line [place], [place] (16 sources)predniSONE; Translations: [PREDNISONE]Drug Mjvpioc52-72-8814Duvhmv And Line [place], [place] (20 sources)Ciprofloxacin; Translations: [CIPROFLOXACIN]Drug Swnafog31-74-8231 Vomiting, GI intoleranceNOCedar County Memorial Hospital (20 sources)PrednisonePropensity to adverse dqcdugvcy17-82-0580Qyttzq And VomitingResearch Medical Center-[facility] Campus (1 source)CephalexinDrug Qqqmmlz31-83-3547MabzemhakGreen Cross Hospital [facility] (1 source)predniSONEDrug Hryawkv58-41-1474SaiymjaqmGreen Cross Hospital Repository Medications Current Medications MedicationDrug Class(es)DatesSig (Normalized)Sig (Original)aspirin 81 mg oral tablet (20 sources)Platelet Aggregation Inhibitor, Nonsteroidal Anti-inflammatory Drug Start: 20-23-5329cmkucxd 81 MG oral suspension 10/14/2023 Activeaspirin 81 mg chewable tablet Chew 1 tablet (81 mg total) and swallow in the morning. Active bisacodyl 10 mg rectal suppository (2 sources)Stimulant LaxativeStart: 10-08-2024 End: 31-82-6354jjgrvkvnm (Dulcolax) 10 MG suppository Indications: Other constipation Insert 1 suppository (10 mg)into the rectum Daily for 4 days 4 suppository 10/08/2024 10/12/2024 Activedocusate sodium 100 mg oral capsule (20 sources) End: 95-68-1272sxye 1 capsule by mouth once dailydocusate sodium (Colace) 100 MG capsule Take 100 mg by mouth Daily 01/16/2025 DiscontinuedDoxylamine Succinate, Sleep, (UNISOM PO) (20 sources) End: 22-66-9294Dnuurormni Succinate, Sleep, (UNISOM PO) Take by mouth [...] mg rectal suppository (6 sources)CorticosteroidStart: 03-12-2025 End: 32-39-3001bypsjvgtidbtgy (Anusol-HC) 25 MG suppository Indications: Hemorrhoids, unspecified hemorrhoid type Insert 1 suppository (25 mg) into the rectum in the morning and 1 suppository (25 mg) before bedtime. 6 suppository 03/12/2025 Activeibuprofen 600 mg oral tablet (10 sources)Nonsteroidal Anti-inflammatory DrugStart: 16-29-9295zgms 1 tablet by mouth every six hours as needed for painomeprazole 40 mg delayed release oral capsule (20 sources)Proton Pump InhibitorStart: 10-08-2024 End: 66-76-7368yofv 1 capsule by mouth before mealtimeomeprazole (PriLOSEC) [address] capsule Indications: Gastroesophageal Reflux Disease , Heartburn Take 1 capsule (40 mg) by mouth in the morning. Take before meals. Do not crush or chew. 30 capsule 3 10/08/2024 01/16/2025 DiscontinuedStart: 09-19-2024 End: 96-32-7817zwjw 1 capsule by mouth before mealtimeomeprazole (PriLOSEC) [address] capsule Indications: Gastroesophageal Reflux Disease , Heartburn Take 1 capsule (20 mg) by mouth in the morning. Take before meals. Do not crush or chew. 30 capsule 3 09/19/2024 10/08/2024 Discontinued (Reorder)ondansetron 4 mg oral tablet (20 sources)Serotonin-3 Receptor AntagonistStart: 61-57-7278uvjr 1 tablet by mouth every six hours as needed for nausea and vomitingondansetron (Zofran) 4 MG tablet Indications: Gastroesophageal reflux in ([facility] , Nausea and vomiting during ([facility] TAKE 1 TABLET BY MOUTH EVERY 6 HOURS NEEDED FOR NAUSEAAND VOMITING 30 tablet 3 03/10/2025 ActiveStart: 21-12-7943flbs 1 tablet by mouth every six hours as needed for nausea and nausea, then take 1 tablet by mouthevery six hours as needed for nausea and nauseaondansetron (Zofran) 4 MG tablet Indications: Gastroesophageal reflux in ([facility]) , Nausea and vomiting during ([facility]) Take 1 tablet (4 mg) by mouth every 6 (six) hours if needed for nausea or vomiting for up to 30 doses Take 1 tablet by mouth every 6 hours as needed for nausea. 30 tablet 3 11/20/2024 ActiveStart: 15-36-2637zcib 1 tablet by mouth every six hours as needed for nausea and nausea, then take 1 tablet by mouthevery six hours as needed for nausea and nauseaondansetron (Zofran) 4 MG tablet Indications: Gastroesophageal reflux in ([facility]) , Nausea and vomiting during ([facility]) Take 1 tablet (4 mg) by mouth [...] as needed for nausea or vomiting. ActivePNV 07-irmm-lqauhjzrfgwv-dha 29 mg iron-1 mg -350 mg comb pack,tablet DR,capsule DR (2 sources)take 1 tablet by mouth in the morningPNV 93-uxlm-rzivhnorpkbl-dha 29 mg iron-1 mg -350 mg comb pack,tablet DR,capsule DR Take 1 tablet by mouth in the morning. Activepolysaccharide iron complex 391 mg oral capsule (5 sources)Start: 01-07-2025 End: 89-99-0800jesb 1 capsule by mouth once dailyiron polysaccharides (ProFe) 391.3 (180 Fe) MG capsule Indications: Second trimester ([facility]) Take 1 capsule (391.3 mg) by mouth Daily 30 capsule 6 01/07/2025 01/16/2025 DiscontinuedpredniSONE 20 mg oral tablet (1 source)Start: 74-13-5595rjtm 1 tablet by mouth every twelve hoursprednisone 20 MG 1 tablet Orally BID for 5 Mar, ActivePrenatal Vit w/Dy-Ahfcvmlpr-GR (PNV PO) (20 sources) Vit w/Qm-Wshqehifo-YS (PNV PO) ActiveProgesterone 200 MG suppository (4 sources)Start: 09-05-2024 End: 96-33-7150Swkagjycfcoz 200 MG suppository Indications: History of miscarriage Insert 200 mg into the vagina in the morning and 200 mg before bedtime. Do all this for 15 days. 30 suppository 3 09/05/2024 09/20/2024 Active Start: 02-14-2024 End: 37-73-1947Bsydrbfhnejy 200 MG suppository Indications: History of miscarriage Insert 200 mg into the vagina in the morning and 200 mg before bedtime. 30 suppository 3 02/14/2024 03/15/2024 ActiveStart: 2024 End: 28-49-7018Jdrmatpepgzw 200 MG suppository Indications: History of miscarriage Insert 200 mg into the vagina at bedtime Insert suppository vaginally every night at bedtime until 12 weeks gestation 30 suppository 3 2024 03/07/2024 Activepyridoxine hydrochloride 25 mg oral tablet (20 sources) End: 78-04-3116gsyr 1 tablet by mouth once dailypyridoxine (Vitamin B-6) 25 MG tablet Take 25 mg by mouth Daily 01/16/2025 DiscontinuedtraMADol hydrochloride 50 mg oral tablet (10 sources)Opioid AgonistStart: 63-54-4599wbln 1 tablet by mouth every four to six hours as needed for pain Completed/Discontinued Medications MedicationDrug Class(es)DatesSig (Normalized)Sig (Original)acetaminophen 325 mg / HYDROcodone bitartrate 5 mg oral tablet (1 source)Opioid AgonistStart: 02-01-2019 End: 27-04-9961ZSUEYxrefpi-acetaminophen (NORCO) 5-325 MG per tablet 1 tablet progesterone 200 mg oral capsule (1 source)Progesterone End: 06-71-0600goxe 1 capsule by mouth in the morningprogesterone (PROMETRIUM) 200 mg capsule Take 1 capsule (200 mg total) by mouth in the morning. 11/12/2024 Discontinued Problems Active Problems Problem ClassificationProblemDateDocumented DateEpisodic/ChronicBenign neoplasm of uterus (2 sources)Leiomyoma of uterus, unspecified; Translations: [Leiomyoma of uterus, unspecified]Onset: 58-87-4487HxuvqqmpJvndfrl dysrhythmias (2 sources)Postural orthostatic tachycardia syndrome ; Translations: [POTS (postural orthostatic tachycardia syndrome)]72-61-7211VkdiaztXgsyqsp dysrhythmias (12 sources)Palpitations; Translations: [Tachycardia]Onset: EpisodicContraceptive and procreative management (4 sources)Patient encounter status; Translations: [Encounter for procreative management, unspecified]40-37-5442YvkvfogcFhhjhrlp mellitus without complication (2 sources)Abnormal glucose tolerance test; Translations: [Other abnormal glucose]31-99-0101EnjxtkqcAqcfqr infertility (2 sources)Female infertility; Translations: [Female infertility, unspecified] 63-85-6561WpljewwJdietcaytve (2 sources)Hemorrhoids; Translations: [Unspecified hemorrhoids]03-12-2025 EpisodicImmunizations and screening for infectious disease (2 sources)Exposure to sexually transmissible disorder; Translations: [Contact with and (suspected) exposure to infections with a predominantly sexual mode of transmission]39-21-3833ItvmtbqgUycdopnzv disorders (2 sources)Missed period; Translations: [Irregular menstruation, unspecified] Onset: 202161-90-9356KlnyunzOrcgx complications of (5 sources)Gastroesophageal reflux disease in ; Translations: [Diseases of the digestive system complicating , unspecified trimester] 94-43-9931QgwornuvQwghj complications of (1 source)Vomiting of , unspecified; Translations: [Unspecified vomiting of , unspecified as to episode of care or not applicable] 45-57-8223RntvblsrBkgux complications of (3 sources)Uterine fibroids affecting ; Translations: [Maternal care for benign tumor of corpus uteri, second trimester]72-82-1847YltcnqdcYtxfq complications of (2 sources)Maternal care for benign tumor of corpus uteri, second trimester; Translations: [Maternal care for benign tumor of corpus uteri, second trimester] Onset: 74-16-2509BlosclupQvykr complications of (2 sources) size does not accord with dates; Translations: [Uterine size- date discrepancy, unspecified trimester]05-35-2845CtbeapxiMlrdh connective tissue disease (4 sources)Pain in right lower limb; Translations: [Pain in right leg]02-26-2025 EpisodicOther endocrine disorders (2 sources)Disorder of endocrine system; Translations: [Endocrine disorder, unspecified]79-52-9010PbvksrdzFzdid female genital disorders (2 sources)Other specified conditions associated with female genital organs and menstrual cycle; Translations:[Other specified conditions associated with female genital organs and menstrual cycle]Onset: 68-32-9258YjkyjyttYdzdy female genital disorders (2 sources)Vaginal discharge; Translations: [Other specified noninflammatory disorders of vagina]49-84-9789MtorbfncSztnl gastrointestinal disorders (2 sources)Constipation; Translations: [Other constipation]73-85-0538Iryvfecv Other gastrointestinal disorders (4 sources)Mass of uterine adnexa; Translations: [Other specified conditions associated with female genital organs and menstrual cycle]56-63-4759Taalnhrj Other and delivery including normal (20 sources); Translations: [Encounter for supervision of normal , unspecified, unspecified trimester]57-62-1094CcywsjtbMnses screening for suspected conditions (not mental disorders or infectious disease) (1 source)Encounter for other specified screening; Translations: [Encounter for other specified screening]Onset: 92-91-5683Oqvvdzrp Other skin disorders (4 sources)Localized swelling of right lower limb; Translations: [Localized swelling, mass and lump, right lower limb]39-89-4738PthppkomHwzzg skin disorders (2 sources)Localized swelling, mass and lump, right lower limb; Translations: [Localized swelling, mass and lump, right lower limb]Onset: 44-33-1654Pirgwafj Other upper respiratory infections (2 sources)Acute pharyngitis, unspecified; Translations: [Acute upper respiratory infection, unspecified]EpisodicResidual codes; unclassified (2 sources)H/O: miscarriage; Translations: [Personal history of other complications of , childbirth and the puerperium]96-02-3428Slvbkpnp Residual codes; unclassified (2 sources)Gestation period, 11 weeks; Translations: [11 weeks gestation of ]41-38-0439DnarcbhmFppfoqmz codes; unclassified (2 sources)Gestation period, 16 weeks; Translations: [16 weeks gestation of ]37-11-6117CyzgdxktMlrbkbrk codes; unclassified (1 source)16 weeks gestation of ; Translations: [16 weeks gestation of ]Onset: 46-84-3978BzhpwjbuJvttmlbg codes; unclassified (2 sources)Gestation period, 15 weeks; Translations: [15 weeks gestation of ]70-05-8082ZywytjrqZkzqsgch codes; unclassified (2 sources)Gestation period, 19 weeks; Translations: [19 weeks gestation of ]99-14-2174WjcxkxkjPswqargf codes; unclassified (4 sources)Gestation period, 23 weeks; Translations: [23 weeks gestation of ]08-09-3264NcbcnqdjWrsohyys codes; unclassified (2 sources)Gestation period, 25 weeks; Translations: [25 weeks gestation of ]98-46-8274YaoksuciNzakdupm codes; unclassified (2 sources)26 weeks gestation of ; Translations: [26 weeks gestation of ]Onset: 34-25-8970WdmoqjztLifjekrj codes; unclassified (2 sources)Gestation period, 27 weeks; Translations: [27 weeks gestation of ]44-95-3448YomvujigAadbnqmh codes; unclassified (2 sources)Gestation period, 29 weeks; Translations: [29 weeks gestation of ]89-09-1381GwhamqdyUkqhnmxj codes; unclassified (2 sources)Gestation period, 31 weeks; Translations: [31 weeks gestation of ]52-54-8149TysmpvbrAbzzbctc codes; unclassified (2 sources)Gestation period, 33 weeks; Translations: [33 weeks gestation of ]36-85-0619DncwahvfYrymghz (4 sources)Syncope; Translations: [Syncope and collapse]Onset: 01-24-2025 35-72-1849GgkcuauuWwyoijccauvh (1 source)Enlarged & Heterogeneous Bilateral OvariesOnset: 11-12-2024 Past or Other Problems Problem ClassificationProblemDateDocumented DateEpisodic/ChronicAbdominal pain (1 source)Right lower quadrant pain; Translations: [Abdominal pain, right lower quadrant]EpisodicOther complications of (1 source)Supervision of with other poor reproductive or obstetric history, unspecified trimester; Translations: [Supervision of with other poor reproductive or obstetric history, unspecified trimester]Onset: 62-05-5684WbfqtzexRyxpt female genital disorders (1 source)H/O gynecological disorder; Translations: [History of ovarian cyst] EpisodicResidual codes; unclassified (1 source)Personal history of other complications of , childbirth and the puerperium; Translations: [Personal history of other complications of , childbirth and the puerperium]Onset: 35-28-1378Bdusbrla Results Test NameValueInterpretationReference RangeFacilityNo Panel InformationOrdered By: Radiologist Radiology on 73-91-9781XA[facility] Work Phone: No Panel Informationon 15-12-0193Pscfqlybf Study observation (narrative)NOMS HealthcareUS OB CERVICAL LENGTHon 97-89-0488[place], [place] [address] Ultrasound Report Signed Patient: DAPHNEY GRADY MR#: [id number] : 2000 Acct:[id number] Age/Sex: 25 / F ADM Date: Loc: [facility] Attending Dr: Jack Woods D.O. Ordering Physician: Peggy,Jack D.O. Date of Service: 03/19/25 Procedure(s): US OB cervical length Accession Number(s): [id number] cc: Alberto Mayes M.D.; Jack Woods D.O. [address] [address] Patient Name: DAPHNEY GRADY MRN: [id number] date: 2000 Sex: F Assigned Patient Location: [facility] Current Patient Location: [facility] Accession/Order Number: [id number] Exam Date: 03/19/2025 10:05 Report Date: 03/19/2025 [...] Rojas M.D. 03/19/2025 10:57 AM Dictation Location: [place] [address] Electronically authenticated by: [id number] Y Date: 03/19/2025 10:57 Dictated By: Lisa Rojas M.D. Signed By: 03/19/25 1100 DD/ 1057 TD/TT: Electric Meter Repairer Apprentice:ESTEFANYadiologashish, Radiologist, - 03/19/2025 [place] [address] Ultrasound Report Signed Patient: DAPHNEY GRADY MR#: [id number] : 2000 Acct:[id number] Age/Sex: 25 / F ADM Date: Loc: [facility] 250-[address]: Jack Woods D.O. Ordering Physician: Jack Woods D.O. Date of Service: 03/19/25 Procedure(s): US OB cervical length Accession Number(s): [id number] cc: Alberto Mayes M.D.; Jack Woods D.O. [place] [address] Patient Name: DAPHNEY GRADY MRN: [id number] date: 2000 Sex: F Assigned Patient Location: [facility] Current Patient Location: [facility] Accession/Order Number: [id number] Exam Date: 03/19/2025 10:05 Report Date: 03/19/2025 [...] Rojas M.D. 03/19/2025 10:57 AM Dictation Location: [place] [address] Electronically authenticated by: [id number] Y Date: 03/19/2025 10:57 Dictated By: Lisa Rojas M.D. Signed By: 03/19/251099 DD/ 105 TD/TT: Electric Meter Repairer Apprentice: RIMMA Looney OB BPP W NON-STRESSon 12-03-4716[place]uv[place], [place] [address] Ultrasound Report Signed Patient: DAPHNEY GRADY MR#: [id number] : 2000 Acct:[id number] Age/Sex: 25 / F ADM Date: Loc: [facility] Attending Dr: Jack Woods D.O. Ordering Physician: Jack Woods D.O. Date of Service: 03/19/25 Procedure(s): US OB BPP w non-stress Accession Number(s): [id number] cc: Alberto Mayes M.D.; Jack Woods D.O. [place] [address] Patient Name: DAPHNEY GRADY MRN: [id number] date: 2000 Sex: F Assigned Patient Location: [facility] Current Patient Location: [facility] Accession/Order Number: [id number] Exam Date: 03/19/2025 10:05 Report Date: 03/19/2025 [...] Rojas M.D. 03/19/2025 10:57 AM Dictation Location: [place] [address] Electronically authenticated by: [id number] Y Date: 03/19/2025 10:57 Dictated By: Lisa Rojas M.D. Signed By: 03/19/25 1100 DD/ 1057 TD/TT: Electric Meter Repairer Apprentice:TBHRadiology, Radiologist, - 03/19/2025 [place] [address] Ultrasound Report Signed Patient: DAPHNEY GRADY MR#: [id number] : 2000 Acct:[id number] Age/Sex: 25 / F ADM Date: Loc: [facility] 250- Attending Dr: Jack Woods D.O. Ordering Physician: Jack Woods D.O. Date of Service: 03/19/25 Procedure(s): US OB BPP w non-stress Accession Number(s): [id number] cc: Alberto Mayes M.D.; Jack Woods D.O. [address] [address] Patient Name: DAPHNEY GRADY MRN: [id number] date: 2000 Sex: F Assigned Patient Location: [facility] Current Patient Location: [facility] Accession/Order Number: [id number] Exam Date: 03/19/2025 10:05 Report Date: 03/19/2025 [...] Rojas M.D. 03/19/2025 10:57 AM Dictation Location: [place] [address] Electronically authenticated by: [id number] Y Date: 03/19/2025 10:57 Dictated By: Lisa Rojas M.D. Signed By: 03/19/25 1100 DD/ 1057 TD/TT: Electric Meter Repairer Apprentice: RIMMA HOPE PLACENTAon 86-47-3298[place]dzDennard, [place] [address] Ultrasound Report Signed Patient: DAPHNEY GRADY MR#: [id number] : 2000 Acct:[id number] Age/Sex: 25 / F ADM Date: Loc: [facility] 250-[address]: Jack Woods D.O. Ordering Physician: Jack Woods D.O. Date of Service: 03/19/25 Procedure(s): US OB placenta Accession Number(s): [id number] cc: Alberto Mayes M.D.; Jack Woods D.O. [place] [address] Patient Name: DAPHNEY GRADY MRN: [id number] date: 2000 Sex: F Assigned Patient Location: [facility] Current Patient Location: [facility] Accession/Order Number: [id number] Exam Date: 03/19/2025 10:05 Report Date: 03/19/2025 [...] Rojas M.D. 03/19/2025 10:57 AM Dictation Location: [place] [address] Electronically authenticated by: [id number] Y Date: 03/19/2025 10:57 Dictated By: Lisa Rojas M.D. Signed By: 03/19/251099 DD/ 56 TD/TT: Electric Meter Repairer Apprentice:ESTEFANYadiologashish, Radiologist, - 03/19/2025 [place] [address] Ultrasound Report Signed Patient: DAPHNEY GRADY MR#: [id number] : 2000 Acct:[id number] Age/Sex: 25 / F ADM Date: Loc: [facility] Attending Dr: Jack Woods D.O. Ordering Physician: Jack Woods D.O. Date of Service: 03/19/25 Procedure(s): US OB placenta Accession Number(s): [id number] cc: Alberto Mayes M.D.; Jack Woods D.O. [place] [address] Patient Name: DAPHNEY GRADY MRN: [id number] date: 2000 Sex: F Assigned Patient Location: [facility] Current Patient Location: [facility] Accession/Order Number: [id number] Exam Date: 03/19/2025 10:05 Report Date: 03/19/2025 [...] Rojas M.D. 03/19/2025 10:57 AM Dictation Location: [place] [address] Electronically authenticated by: [id number] Y Date: 03/19/2025 10:57 Dictated By: Lisa Rojas M.D. Signed By: 03/19/25 1100 DD/ 1057 TD/TT: Electric Meter Repairer Apprentice: RIMMA [place] CBC WITH AUTO DIFFon 88-14-0008DWLERQDPK ABSOLUTE AUTO0.1NOMS HealthcareBasophils/100 WBC (Bld)0.5 %0.2 - 2.0 %NOMS HealthcareEosinophils/100 WBC (Bld)0.8 %Low0.9 - 7.0 %NOMS HealthcareErythrocyte distribution width (RBC) [Ratio]12.7 %11.0 - 15.0 %NOMS HealthcareHematocrit (Bld) [Volume fraction]29.8 %Low36.0 - 48.0 %NOMS HealthcareHemoglobin (Bld) [Mass/Vol]10.0 g/dLLow12.0 - 16.0 g/dLResearch Medical Center-Brookside CampusIMMATURE GRANULOCYTES ABS AUTO0.19HighResearch Medical Center-Brookside Campus Immature granulocytes/100 WBC (Bld)1.9 %High0.0 - 0.5 %[facility] Interpretation and review of laboratory resultsAbnoGuthrie Clinic LYMPHOCYTES ABSOLUTE AUTO1.7[facility]okside CampusLymphocytes/100 WBC (Bld)17.1 %Low 20.5 - 60.0 %[facility] HospitalH (RBC) [Entitic mass]29.7 pg26.7 - 34.0 pgSalem Memorial District HospitalHC (RBC) [Mass/Vol]33.6 g/dL29.9 - 35.2 g/dLSalem Memorial District HospitalV (RBC) [Entitic vol]88.4 fL81.0 - 99.0 fLResearch Medical Center-Brookside CampusMONOCYTES ABSOLUTE AUTO0.8NOCedar County Memorial HospitalMonocytes/100 WBC (Bld)7.5 %1.7 - 12.0 %[facility] CampusNEUTROPHILS ABSOLUTE AUTO7.3HighResearch Medical Center-Brookside CampusNeutrophils/100 WBC (Bld)72.2 %43.0 - 75.0 % [facility] CampusPlatelet mean volume (Bld) [Entitic vol]9.7 fL9.5 - 13.5 fLResearch Medical Center-Brookside CampusTB EO #0.1NOMS [facility] CenterTB MIF749YCDAFulton Medical Center- Fulton RBC3.37LowNOFulton Medical Center- [facility] WBC10.0NOCedar County Memorial HospitalCLINISYNCNPike County Memorial HospitalUrinalysis macro (dipstick) panel (U)on 23-37-3401Puwmxcvtk, UANegativeNegative - 4(70) +++ mg/dL [facility] CampusBlood, UANegativeNegative - 50 Clarke/mcLPRIMARY CHILDREN'S HOSPITAL HealthcareClarity, UA ClearNOUT HealthcareColor, UAYellowNOUT HealthcareGlucose, UANegativeNegative - 2000(110) ++++ mg/dLResearch Medical Center-Brookside CampusInterpretation and review of laboratory resultsAbnormConemaugh Meyersdale Medical CenterKetones, UANegativeNegative - 160(16) ++++ mg/dL [facility] CampusLeukocytes, UAPositiveNegative - 500+++ Kamaljit/mcLPRIMARY CHILDREN'S HOSPITAL Healthcare Comment on above:2+Nitrite, UANegativeNegative - PositiveNOMS HealthcarepH, UA 8.05 - 9NOMS HealthcareProtein, UANegativeNegative - 1999(20) ++++ mg/dLNOMS HealthcareSpec Grav, UA1.0101 - 1.03NOMS HealthcareUrobilinogen, UA0.20.2 - 12 mg/dLNOMS HealthcareNOMS HealthcareUS OB FOLLOW UP TRANSABDOMINAL APPROACHon 37-12-9441UI OB FOLLOW UP TRANSABDOMINAL APPROACHFINDINGS: A single, [...] Delivery: 04/29/25 Gestational Age as of 02/11/2025: 12f7iNdfmhpcaye macro (dipstick) panel (U)on 06-77-9610Irlhysnef, UANegativeNegative - 4(70) +++ mg/dLNOMS HealthcareBlood, UANegativeNegative [...] HealthcareNOMS Healthcare Urinalysis macro (dipstick) panel (U)on 05-51-7301Fodfenxew, UANegativeNegative - 4(70) +++ mg/dLNOMS HealthcareBlood, UANegativeNegative [...] 12 mg/dLNOMS HealthcareNOMS HealthcareGLUCOSE TOLERANCE 3 HOURon 89-18-1229CAQXRPW TOLERANCE 3 HOURmg/dLNOMS HealthcareComment on above:GLU FAST [...] ++++ mg/dLNOMS HealthcareInterpretation and review of laboratory resultsAbnormalNOUT Healthcare Ketones, UANegativeNegative - 160(16) ++++ mg/dLNOMS HealthcareLeukocytes, UA PositiveNegative - 500+++ Kamaljit/mcLNOMS HealthcareComment on above:3+Nitrite, UA NegativeNegative - PositiveNOMS HealthcarepH, UA6.55 - 9NOMS HealthcareProtein, UANegativeNegative - 2000(20) ++++ mg/dLNOMS HealthcareSpec Grav, UA1.011 - 1.03 NOMS HealthcareUrobilinogen, UA0.20.2 - 12 mg/dLNOUT HealthcareNOUT Healthcare GLUCOSE 1 HOURon 62-83-0125Rqixuze [Mass/Vol]150 mg/dLHighNINF - 130 mg/dLNOMS HealthcareInterpretation and review of laboratory resultsAbnormalNOUT Healthcare CLINISYNCNOUT HealthcareOffice Visiton 41-13-3805Jfpsrv-up [id number] Daphney Al 2000 F Date Provider Department Center 01/24/2025 [id number]-SLCCMVKAY [place] [facility] Family History Problem Relation Age of Onset Hypertension Father Family Status - Relation Status Age at Mother Alive Father Alive Level of Service:26142 [place] OFFICE/OUTPATIENT NEW LOW MDM 30 MINUTES Reason for Visit and Comments: New Patient [632] - Patient is here today as a new patient to establish care with cariology Syncope [506] Palpitations [843709] 26 weeks [Other][facility] CenterCA ECHO DOPPLER COMPLETEon 93-17-4402[address] [address] Cardiology Report Signed Patient: DAPHNEY AL MR#: [id number] : 2000 Acct:[id number] Age/Sex: 24 / F ADM Date: 01/20/25 Loc: CARD Attending Dr: Jayla Art Ordering Physician: Jayla Art Date of Service: 01/20/25 Procedure(s): [place] echo doppler complete Accession Number(s): [id number] cc: Jayla Art; Alberto Mayes M.D. Patient Name: DAPHNEY AL MR#: [id number] : 2000 Exam Date: 01/20/2025 Ordering Doctor: [...] Marie M.D. Signed By: 01/21/2559 DD/ TD/TT: Electric Meter Repairer Apprentice:TBHRadiology, Radiologist, - 01/21/2025 [place] [address] Cardiology Report Signed Patient: DAPHNEY AL MR#: [id number] : 2000 Acct:[id number] Age/Sex: 24 / F ADM Date: 01/20/25 Loc: CARD Attending Dr: Jayla Art Ordering Physician: Jayla Art Date of Service: 01/20/25 Procedure(s): CA echo doppler complete Accession Number(s): [id number] cc: Jayla Art; Alberto Mayes M.D. Patient Name: DAPHNEY AL MR#: [id number] : 2000 Exam Date: 01/20/2025 Ordering Doctor: [...] M.D. Signed By: 01/21/25958 DD/ 7 TD/TT: Electric Meter Repairer Apprentice: [facility] CampusRadiology Study observation (narrative)[facility] ECHO DOPPLER COMPLETEOrdered By: Radiologist Radiology on 96-01-6467SLZZResearch Medical Center-Brookside Campus Work Phone: Urinalysis macro (dipstick) panel (U)on 01-16-2025 Bilirubin, UANegativeNegative - 4(70) +++ mg/dLNOMS HealthcareBlood, UAPositive Negative - 50 Clarke/mcLNOMS HealthcareComment on above:3+Clarity, UAClearNOUT HealthcareColor, UAYellowNOMS HealthcareGlucose, UANegativeNegative - 1999(110) ++++ mg/dLNOUT HealthcareInterpretation and review of laboratory resultsAbnormal [facility] HealthcareKetones, UANegativeNegative - 160(16) ++++ mg/dLNOUT Healthcare Leukocytes, UAPositiveNegative - 500+++ Kamaljit/mcLNOMS HealthcareComment [...] HealthcareNOMS Healthcare Urinalysis macro (dipstick) panel (U)on 90-28-3572Kpwargdhc, UANegativeNegative - 4(70) +++ mg/dLNOMS HealthcareBlood, UANegativeNegative - 50 Clarke/mcLNOMS HealthcareClarity, UAClearNOMS HealthcareColor, UAYellowNOMS HealthcareGlucose, UANegativeNegative - 2000(110) ++++ mg/dLNOMS HealthcareInterpretation and review of laboratory resultsAbnormalNOMS HealthcareKetones, UANegativeNegative - 160(16) ++++ mg/dLNOMS HealthcareLeukocytes, UANegativeNegative - 500+++ Kamaljit/mcLNOUT HealthcareNitrite, UANegativeNegative - PositiveNOMS HealthcarepH, UA65 - 9NOMS HealthcareProtein, UANegativeNegative - 2000(20) ++++ mg/dLNOMS HealthcareSpec Grav, UA1.011 - 1.03NOMS HealthcareUrobilinogen, UA1.00.2 - 12 mg/dLNOMS HealthcareNOMS HealthcareUrinalysis macro (dipstick) panel (U)on 56-80-6876Ghmsxukxh, UANegativeNegative - 4(70) +++ mg/dLNOMS HealthcareBlood, UANegativeNegative - 50 Clarke/mcLNOMS HealthcareClarity, UAClearNOMS Healthcare Color, UAYellowNOUT HealthcareGlucose, UANegativeNegative - 2000(110) ++++ mg/dL [facility] HealthcareInterpretation and review of laboratory resultsAbnormalNOMS HealthcareKetones, UANegativeNegative - 160(16) ++++ mg/dLPRIMARY CHILDREN'S [facility]OSPITAL Healthcare Leukocytes, UAPositiveNegative - 500+++ Kamaljit/mcLPRIMARY CHILDREN'S HOSPITAL HealthcareComment on above: SmallNitrite, UANegativeNegative - PositiveNOMS HealthcarepH, UA75 - 9NOMS HealthcareProtein, UANegativeNegative - 2000(20) ++++ mg/dLPRIMARY CHILDREN'S [facility]OS[facility]ITAL HealthcareSpec Grav, UA1.011 - 1.03NOUT HealthcareUrobilinogen, UA1.00.2 - 12 mg/dLNOCedar County Memorial HospitalNOUT HealthcareFetal Free Cell DNA (Non-[facility] Send Out)on 14-34-9586JalLtfbsh Health SystemPATHOLOGY REQUEST FOR LAB CORPon 11-12-2024 PATHOLOGY REQUEST FOR LAB CORPPRIMARY CHILDREN'S [facility]OSPITAL HealthcareComment on above:See report. Scanned copy available in EMR.SKIN TAGFIRELANDSPRIMARY CHILDREN'S HOSPITAL HealthcareIGP,APTIMA HPV,AGE GDLNon 79-01-0343SOB GDLN ACOG TESTINGNote.[facility] HealthcareComment on above: TESTS RESULT FLAG UNITS REF RANGE LAB Clinician Provided Cytology Information Source.............Cervix No. of containers..01 ThinPrep Vial Age Algo ACOG Nery... -12 06 FLAG LEGEND: L-Low Normal,H-High Normal,LL-Alert Low,HH-Alert High <-Panic Low,>-Panic High,A-Abnormal,AA-Critical Abnormal Performed at: 01 =G [facility] [place] [address] Gypsy Mtz MD, IGP, RFX APTIMA HPV ASCUNote.NOMS HealthcareComment on above:TESTS RESULT FLAG UNITS REF RANGE LAB DIAGNOSIS: 02 NEGATIVE FOR INTRAEPITHELIAL LESION OR MALIGNANCY. THIS SPECIMEN WAS RESCREENED PART OF OUR CRAFT CENTER DIRECTOR PROGRAM. Specimen adequacy: 02 Satisfactory for evaluation. Endocervical and/or squamous metaplastic cells (endocervical component) are present. Performed by: 02 Felicity Rosen, Base Filler (ASCP) QC reviewed by: 02 Esme Mahoney, Base Filler (ASCP) . 02 Note: Note 02 The [...] <-Panic Low,>-Panic High,A-Abnormal,AA-Critical Abnormal Performed at: [address] [address] Gypsy Mtz MD, Performed at: = - [facility] [address] [id number] Mining Helper: Gypsy Mtz MD, Phone: [phone] Performed at: - [facility] [id number] Mining Helper: Gypsy Mtz MD, Phone: [phone] SPATULA-ALONE CERVIX CLINISYNCNOMS HealthcareRECURRENT VAGINITIS (HTRX)on 16-67-4184KZGTOWJOD VAGINAE 0NOMS HealthcareATOPOBIUM VAGINAENot detectedNOMS HealthcareBVAB 2,3 (BACTERIAL VAGINOSIS ASSOCIATED BACTERIA 2, 3); MOBILUNCUS TQX0FJRO HealthcareBVAB 2,3 (BACTERIAL VAGINOSIS ASSOCIATED BACTERIA 2, 3); MOBILUNCUS SPPNot detectedNOMS HealthcareCANDIDA ALBICANS, PARAPSILOSIS, USHPDHOSDN1KGJN HealthcareCANDIDA ALBICANS, PARAPSILOSIS, TROPICALISNot detectedNOMS HealthcareCANDIDA GLABRATA0 NOMS HealthcareCANDIDA GLABRATANot detectedNOMS HealthcareCANDIDA YXCTOJ9YBYL HealthcareCANDIDA KRUSEINot detectedNOMS HealthcareCHLAMYDIA NZXGFMZNWKE0WTDL HealthcareCHLAMYDIA TRACHOMATISNot detectedNOMS HealthcareGARDNERELLA VAGINALIS0 NOMS HealthcareGARDNERELLA VAGINALISNot detectedNOMS HealthcareMEGASPHAERA (TYPES 1, 2)0NOMS HealthcareMEGASPHAERA (TYPES 1, 2)Not detectedNOMS Healthcare MYCOPLASMA SIXNQASFZD1UGUD HealthcareMYCOPLASMA GENITALIUMNot detectedNOMS HealthcareNEISSERIA AEMCXQLNVNE0KUGJ HealthcareNEISSERIA GONORRHOEAENot detected NOMS HealthcareTRICHOMONAS IXMJTJXEF3EYLR HealthcareTRICHOMONAS VAGINALISNot detectedNOMS HealthcareNOMS HealthcarePathology Request for Lab Corpon 01-06-3998Nkqiqulwl Request for Lab [facility] Comment on above:Order Comment: SKIN TAGResult Comment: See report. Scanned copy available in EMR. PERFORMED BY: [facility] [place] [address] PATHOLOGIST BODY FORMER JOSUÉ VALENZUELA M.D.Performed By: #### PROG #### [facility] ,Urinalysis macro (dipstick) panel (U)on 41-31-0835Accenuijy, UANegativeNegative - 4(70) +++ mg/dLNOMS HealthcareBlood, UANegativeNegative [...] mg/dLNOMS HealthcareNOMS HealthcareUrinalysis macro (dipstick) panel (U)on 88-88-0595Gckmuzlmf, UANegativeNegative - 4(70) +++ mg/dLNOMS HealthcareBlood, UANegativeNegative - 50 Clarke/mcLNOMS HealthcareClarity, UAClearNOMS Healthcare Color, UAYellowNOMS HealthcareGlucose, UANegativeNegative - 2000(110) ++++ mg/dL NOMS HealthcareInterpretation and review of laboratory resultsAbnormalNOMS HealthcareKetones, UANegativeNegative - 160(16) ++++ mg/dLNOMS Healthcare Leukocytes, UATraceNegative - 500+++ Kamaljit/mcLNOMS HealthcareNitrite, UANegative Negative - PositiveNOMS HealthcarepH, UA65 - 9NOMS HealthcareProtein, UANegative Negative - 1999(20) ++++ mg/dLNOUT HealthcareSpec Grav, UA1.021 - 1.03NOUT HealthcareUrobilinogen, UA0.20.2 - 12 mg/dLNOCedar County Memorial HospitalNOUT HealthcareMLR HEMOGLOBIN A1Con 45-28-8804Vkjdhnd [Mass/Vol]100 mg/dLResearch Medical Center-Brookside CampusHbA1c (Bld) [Mass fraction]5.1 %4.5 - 6.2 %NOMS HealthcareComment on above:ADA RECOMMENDED LIMIT 4.0 - 6.0 ADA THERAPEUTIC TARGET < 7.0 ACTION SUGGESTED > 7.0 CLINISYNCNOUT HealthcareHCG ( test) Ql (U)on 20-10-1272Tgovauiamlfltr and review of laboratory resultsAbnormalNOUT HealthcarePreg Test, UrPositive NegativeNOUniversity of Missouri Health Care HealthcareUS OB TRANSVAGINALon 97-33-7901FE OB TRANSVAGINALEXAM: US OB TRANSVAGINAL HISTORY: Dating/viability. [...] II, MD, PHD at 22-Sep-2024 08:21:[address] [facility] [employer] TeleradiologyNormalNot AvailableComment on above:Order Comment: US OB TRANSVAGINAL No LMP recorded.Urinalysis macro (dipstick) panel (U)on 19-41-1332Wsggdkbdy, UA NegativeNegative - 4(70) +++ mg/dLNOMS HealthcareBlood, [...] II, MD, PHD at 28-Aug-2024 11:25:24 [address] [employer]-[facility] TeleradiologyNormalNot AvailableComment on above:Order Comment: US OB TRANSVAGINAL No LMP recorded.TB PREG QUANT HCGon 71-58-1201FAQ NQRYHFINYWWY5039uZC/mLNOMS HealthcareComment on above:5-50 0.2-1 WEEK 50-500 1-2 WEEKS 100-5,000 2-3 WEEKS 500-10,000 3-4 WEEKS 1,000-50,000 4-5 WEEKS 10,000-100,000 5-6 WEEKS 15,000-200,000 6-8 WEEKS 10,000-100,000 2-3 MONTHS CLINISYNCNOMS HealthcareTB PREG QUANT HCGon 02-98-5366SQL SPBQVHGWNQUV566mVE/mL NOMS HealthcareComment on above:5-50 0.2-1 WEEK 50-500 1-2 WEEKS 100-5,000 2-3 WEEKS 500-10,000 3-4 WEEKS 1,000-50,000 4-5 WEEKS 10,000-100,000 5-6 WEEKS 15,000-200,000 6-8 WEEKS 10,000-100,000 2-3 MONTHS CLINISYNCNOMS HealthcareTB PREG QUANT HCGon 32-07-4145CCO XNJBWZTFCZHE459kXV/mL NOMS HealthcareComment on above:5-50 0.2-1 WEEK 50-500 1-2 WEEKS 100-5,000 2-3 WEEKS 500-10,000 3-4 WEEKS 1,000-50,000 4-5 WEEKS 10,000-100,000 5-6 WEEKS 15,000-200,000 6-8 WEEKS 10,000-100,000 2-3 [facility] PREG QUANT HCGon 05-89-7187CJD FELPUHCDNQNN293eWK/mL NOMS HealthcareComment on above:5-50 0.2-1 WEEK 50-500 1-2 WEEKS 100-5,000 2-3 WEEKS 500-10,000 3-4 WEEKS 1,000-50,000 4-5 WEEKS 10,000-100,000 5-6 WEEKS 15,000-200,000 6-8 WEEKS 10,000-100,000 2-3 MONTHS [facility] PREG QUANT HCGon 34-87-2291JYH LYQPZMPNOFFO61zHO/mL NOMS HealthcareComment on above:5-50 0.2-1 WEEK 50-500 1-2 WEEKS 100-5,000 2-3 WEEKS 500-10,000 3-4 WEEKS 1,000-50,000 4-5 WEEKS 10,000-100,000 5-6 WEEKS 15,000-200,000 6-8 WEEKS 10,000-100,000 2-3 MONTHS [facility] PREG QUANT HCGon 57-48-9399MRF PMUJADSLLDFG4pAA/mL NOMS HealthcareComment on above:5-50 0.2-1 WEEK 50-500 1-2 WEEKS 100-5,000 2-3 WEEKS 500-10,000 3-4 WEEKS 1,000-50,000 4-5 WEEKS 10,000-100,000 5-6 WEEKS 15,000-200,000 6-8 WEEKS 10,000-100,000 2-[address] [facility] PROGESTERONEon 81-50-6133YFVOASUYOKGA28.8 ng/mL.NOMS HealthcareComment on above:Follicular phase 0.1 - 0.9 Luteal phase 1.8 - 23.9 Ovulation phase 0.1 - 12.0 First trimester 11.0 - 44.3 Second trimester 25.4 - 83.3 Third trimester 58.7 - 214.0 Postmenopausal 0.0 - 0.1 Performed at: [address] [id number] Mining Helper: Jordin Rao PhD, Phone: [phone] [facility] BRANCHcopygramSaint John's [facility] PROGESTERONEon 23-12-3669DWJKCMOUPNZP82.6 ng/mL.NOMS HealthcareComment on above:Follicular phase 0.1 - 0.9 Luteal phase 1.8 - 23.9 Ovulation phase 0.1 - 12.0 First trimester 11.0 - 44.3 Second trimester 25.4 - 83.3 Third trimester 58.7 - 214.0 Postmenopausal 0.0 - 0.1 Performed at: [address] [id number] Mining Helper: Jordin Rao PhD, Phone: [phone] [facility] PREG QUANT HCGon 68-79-4058NKO QUANTITATIVE<1mIU/mL NOMS HealthcareComment on above:5-50 0.2-1 WEEK 50-500 1-2 WEEKS 100-5,000 2-3 WEEKS 500-10,000 3-4 WEEKS 1,000-50,000 4-5 WEEKS 10,000-100,000 5-6 WEEKS 15,000-200,000 6-8 WEEKS 10,000-100,000 2-3 MONTHS [facility]Cr[facility] PROGESTERONEon 90-44-2106FXOXGTAQBRNL53.9 ng/mL.NOMS HealthcareComment on above:Follicular phase 0.1 - 0.9 Luteal phase 1.8 - 23.9 Ovulation phase 0.1 - 12.0 First trimester 11.0 - 44.3 Second trimester 25.4 - 83.3 Third trimester 58.7 - 214.0 Postmenopausal 0.0 - 0.1 Performed at: [address] [id number] Mining Helper: Jordin Rao PhD, Phone: [phone] [facility] BRANCHkWhOURSMoccasin Bend Mental [facility] Institute HEMOGLOBIN A1Con 04-56-3348Fdhtmpc [Mass/Vol]88 mg/dLNOCedar County Memorial HospitalXxwlhibovyWwK0f (Bld) [Mass fraction]4.7 %4.5 - 6.2 %[facility] Healthcare Comment on above:ADA RECOMMENDED LIMIT 4.0 - 6.0 ADA THERAPEUTIC TARGET < 7.0 ACTION SUGGESTED > 7.0 CLINISYNCNOMS HealthcareChoriogonadotropin.beta subunit [Units/volume] in Serum or PlasmaOrdered By: Jack Wodos on 82-35-8012JXQ.beta subunit Qn4.96 m[IU]/mL [facility] HospitalComment on above:Approximate Approximate hCG Gestational Age Range (mIU/ml) (weeks)0.2-1 5-50 1-2 50-500 2-3 100-5,000 3-4 500-10,000 4-5 1,000-50,000 5-6 10,000-100,000 6-8 15,000-200,000 8-12 10,000-100,000HCG,Quantitativeon 66-49-6172PJO,Quantitative4.96 m[iU]/mLNormal [facility] Physician GroupComment on above:Result Comment: Approximate Approximate hCG Gestational Age Range (mIU/ml) (weeks) 0.2-1 5-50 1-2 50-500 2-3 100-5,000 3-4 500-10,000 4-5 1,000-50,000 5-6 10,000-100,000 6-8 15,000-200,000 8-12 10,000-100,000 PERFORMED BY: [place] [address] PATHOLOGIST BODY FORMER TO ANAYA M.D.Performed By: #### HCGQNT #### [place] [address] USAChoriogonadotropin.beta subunit [Units/volume] in Serum or PlasmaOrdered By: Jack Woods on 64-52-2020EOJ.beta subunit Qn108.32 m[IU]/mL [facility] HospitalComment on above:Approximate Approximate hCG Gestational Age Range (mIU/ml) (weeks)0.2-1 5-50 1-2 50-500 2-3 100-5,000 3-4 500-10,000 4-5 1,000-50,000 5-6 10,000-100,000 6-8 15,000-200,000 8-12 10,000-100,000HCG,Quantitativeon 27-92-8521WNY,Fbjydomgcboy720.32 m[iU]/mLNormal [facility] Physician GroupComment on above:Result Comment: Approximate Approximate hCG Gestational Age Range (mIU/ml) (weeks) 0.2-1 5-50 1-2 50-500 2-3 100-5,000 3-4 500-10,000 4-5 1,000-50,000 5-6 10,000-100,000 6-8 15,000-200,000 8-12 10,000-100,000 PERFORMED BY: [place] [id number] PATHOLOGIST BODY FORMER TO ANAYA M.D.Performed By: #### HCGQNT #### [place] [id number] USAChoriogonadotropin.beta subunit [Units/volume] in Serum or PlasmaOrdered By: Jack Woods on 74-80-3872TGM.beta subunit Cd2199.88 m[IU]/mL [facility] HospitalComment on above:Approximate Approximate hCG Gestational Age Range (mIU/ml) (weeks)0.2-1 5-50 1-2 50-500 2-3 100-5,000 3-4 500-10,000 4-5 1,000-50,000 5-6 10,000-100,000 6-8 15,000-200,000 8-12 10,000-100,000HCG,Quantitativeon 70-06-8411BVS,Hhjlzvfexcgv9598.88 m[iU]/mL NormalThe Carolinaeast Medical Center Physician GroupComment on above:Result Comment: Approximate Approximate hCG Gestational Age Range (mIU/ml) (weeks) 0.2-1 5-50 1-2 50-500 2-3 100-5,000 3-4 500-10,000 4-5 1,000-50,000 5-6 10,000-100,000 6-8 15,000-200,000 8-12 10,000-100,000 PERFORMED BY: [place] [id number] PATHOLOGIST BODY FORMER TO ANAYA M.D.Performed By: #### HCGQNT #### [address] [address] USAChoriogonadotropin.beta subunit [Units/volume] in Serum or PlasmaOrdered By: Jack Woods on 20-80-7484VIG.beta subunit Qn988.06 m[IU]/mL [facility] HospitalComment on above:Approximate Approximate hCG Gestational Age Range (mIU/ml) (weeks)0.2-1 5-50 1-2 50-500 2-3 100-5,000 3-4 500-10,000 4-5 1,000-50,000 5-6 10,000-100,000 6-8 15,000-200,000 8-12 10,000-100,000HCG,Quantitativeon 82-51-6451DUM,Upykwsfdwvzq029.06 m[iU]/mLNormal [facility] Physician GroupComment on above:Result Comment: Approximate Approximate hCG Gestational Age Range (mIU/ml) (weeks) 0.2-1 5-50 1-2 50-500 2-3 100-5,000 3-4 500-10,000 4-5 1,000-50,000 5-6 10,000-100,000 6-8 15,000-200,000 8-12 10,000-100,000 PERFORMED BY: [address] [address] PATHOLOGIST BODY FORMER TO ANAYA M.D.Performed By: #### HCGQNT #### [address] [address] USAUS OB transvaginalon 71-53-5551SW OB transvaginalTHE [facility]RO[facility] Main [address] [address] Ultrasound Report Signed Patient: Daphney Al MR#: [id number] : 2000 Acct:[id number] Age/Sex: 23 / F ADM Date: 12/20/23 Loc: Room: Type: REG CLI Attending Dr: Jack Peggy DO Ordering Provider: Jack Woods Date of Service: 12/20/23 US/US OB <= 14 weeks fetus: N92.6 ([id number]) US/US OB transvaginal: N92.6 Copies to: Jack [...] Lisa Rojas M.D.12/20/2023 5:46 PM Dictation Location: [place] [address] Tech: Deb Farhan Transcribed By: FLETCHER 12/20/23 174 Dictated By: Lisa Rojas MD 12/20/23 173 Signed By: 12/20/23 1746NoRandolph Health Physician GroupChoriogonadotropin.beta subunit [Units/volume] in Serum or PlasmaOrdered By: Jack Woods on 52-74-1902STE.beta subunit Qn295.86 m[IU]/mLGreen Cross HospitalComment on above: Approximate Approximate hCG Gestational Age Range (mIU/ml) (weeks)0.2-1 5-50 1-2 50-500 2-3 100-5,000 3-4 500-10,000 4-5 1,000-50,000 5-6 10,000-100,000 6-8 15,000-200,000 8-12 10,000-100,000HCG,Quantitativeon 84-08-7425MTW,Quantitative 295.86 m[iU]/mLNUNC Health Lenoir Physician GroupComment on above:Result Comment: Approximate Approximate hCG Gestational Age Range (mIU/ml) (weeks) 0.2-1 5-50 1-2 50-500 2-3 100-5,000 3-4 500-10,000 4-5 1,000-50,000 5-6 10,000-100,000 6-8 15,000-200,000 8-12 10,000-100,000 PERFORMED BY: [place] [address] PATHOLOGIST BODY FORMER TO ANAYA M.D.Performed By: #### HCGQNT #### [place] [address] USAChoriogonadotropin.beta subunit [Units/volume] in Serum or PlasmaOrdered By: Jack Woods on 70-70-8547YEC.beta subunit Qn135.80 m[IU]/mL [facility] HospitalComment on above:Approximate Approximate hCG Gestational Age Range (mIU/ml) (weeks)0.2-1 5-50 1-2 50-500 2-3 100-5,000 3-4 500-10,000 4-5 1,000-50,000 5-6 10,000-100,000 6-8 15,000-200,000 8-12 10,000-100,000HCG,Quantitativeon 24-53-5741TOU,Ibgrkdnoznxb741.80 m[iU]/mLNormal [facility] Physician GroupComment on above:Result Comment: Approximate Approximate hCG Gestational Age Range (mIU/ml) (weeks) 0.2-1 5-50 1-2 50-500 2-3 100-5,000 3-4 500-10,000 4-5 1,000-50,000 5-6 10,000-100,000 6-8 15,000-200,000 8-12 10,000-100,000 PERFORMED BY: [place] [address] PATHOLOGIST BODY FORMER TO ANAYA M.D.Performed By: #### HCGQNT #### [place] [address] USAChoriogonadotropin.beta subunit [Units/volume] in Serum or PlasmaOrdered By: ANT Reardon on 11-93-3939CUK.beta subunit Qn69.85 m[IU]/mLGreen Cross HospitalComment on above:Approximate Approximate hCG Gestational Age Range (mIU/ml) (weeks)0.2-1 5-50 1-2 50-500 2-3 100-5,000 3-4 500-10,000 4-5 1,000-50,000 5-6 10,000-100,000 6-8 15,000-200,000 8-12 10,000-100,000HCG,Quantitativeon 11-75-0739YAT,Xueycxnhqqlv34.85 m[iU]/mL NormalThe [facility]east Medical Center Physician GroupComment on above:Result Comment: Approximate Approximate hCG Gestational Age Range (mIU/ml) (weeks) 0.2-1 5-50 1-2 50-500 2-3 100-5,000 3-4 500-10,000 4-5 1,000-50,000 5-6 10,000-100,000 6-8 15,000-200,000 8-12 10,000-100,000 PERFORMED BY: [place] [address] PATHOLOGIST BODY FORMER TO ANAYA M.D.Performed By: #### HCGQNT #### [place] [address] USAProgesteroneon 99-52-9339Mlyygmerpecm52.5 ng/mLNormal.[facility] Physician GroupComment on above:Result Comment: Follicular phase 0.1 - 0.9 Luteal phase 1.8 - 23.9 Ovulation phase 0.1 - 12.0 First trimester 11.0 - 44.3 Second trimester 25.4 - 83.3 Third trimester 58.7 - 214.0 Postmenopausal 0.0 - 0.1 Performed at: [employer] [place] [address] [place], [place] [id number] Mining Helper: Jordin Rao PhD, Phone: [phone] PERFORMED BY: [place] [address] PATHOLOGIST BODY FORMER TO ANAYA M.D.Performed By: #### PROG #### [facility] ,Serum or plasma progesterone measurement (mass/volume)Ordered By: Jack Woods on 63-59-7998Hovjqiemksom [Mass/Vol]26.5 ng/mL.[facility] Comment on above:Follicular phase 0.1 - 0.9 Luteal phase 1.8 - 23.9 Ovulation phase 0.1 - 12.0 First trimester 11.0 - 44.3 Second trimester 25.4 - 83.3 Third trimester 58.7 - 214.0 Postmenopausal 0.0 - 0.1Performed at: [employer] BiopharmaceuticalsChilton Memorial HospitalXlexmm[address] [place], [place] [id number] Director: Jordin Muhammad, Phone: [phone].beta subunit [Units/volume] in Serum or PlasmaOrdered By: ANT Reardon on 25-00-8792EMT.beta subunit Qn12.64 m[IU]/mLGreen Cross HospitalComment on above:Approximate Approximate hCG Gestational Age Range (mIU/ml) (weeks)0.2-1 5-50 1-2 50-500 2-3 100-5,000 3-4 500-10,000 4-5 1,000-50,000 5-6 10,000-100,000 6-8 15,000-200,000 8-12 10,000-100,000HCG,Quantitativeon 64-27-2652WKQ,Luabpegnqvgb19.64 m[iU]/mL NormalThe [facility]east [facility] Center Physician GroupComment on above:Result Comment: Approximate Approximate hCG Gestational Age Range (mIU/ml) (weeks) 0.2-1 5-50 1-2 50-500 2-3 100-5,000 3-4 500-10,000 4-5 1,000-50,000 5-6 10,000-100,000 6-8 15,000-200,000 8-12 10,000-100,000 PERFORMED BY: [facility] [address] [place] [address] PATHOLOGIST BODY FORMER TO ANAYA M.D.Performed By: #### HCGQNT #### [facility] [address] [place] [address] USAOperative Reporton 01-98-6998Dumpmntuo Report [id number]#[id number] City HospitalQuick Strepon 03-21-2023S. pyogenes Org specific cx Ql (Throat)Negative [facility] [employer] Other Quick [facility] [employer] Other [facility] Auto Differentialon 90-80-3514Doqmlxhen (Bld) [#/Vol]0.00 10*3/[place] [facility], KYBasophils/100 WBC (Bld)0 %0 - 2 %[employer] [facility], KYDifferential TypeYESMSelect Medical Specialty Hospital - [place], KYEosinophils (Bld) [#/Vol] 0.20 10*3/uLMerTrutap [facility] [place], KYEosinophils/100 WBC (Bld)2 %0 - 5 %[facility]- [place], KYErythrocyte distribution width (RBC) [Ratio]12.6 %12.1 - 15.2 %[facility]- [place], USHAHematocrit (Bld) [Volume fraction]39.8 %36 - 46 %[facility]- [place], USHAHemoglobin (Bld) [Mass/Vol]13.8 g/dL12 - 16 g/dLSalem City Hospital- [place], USHA Interpretation and review of laboratory resultsAbnormalSalem City Hospital- [place], [place] Lymphocytes (Bld) [#/Vol]1.70 10*3/uLSalem City Hospital- [place], KYLymphocytes/100 WBC (Bld)14 %Low15 - 40 %[facility]- [place], USHAMCH (RBC) [Entitic mass]31.5 pg26 - 34 pgSalem City Hospital- [place], USHAMCHC (RBC) [Mass/Vol]34.6 g/dL31 - 37 g/dLSalem City Hospital- [place], USHAMCV (RBC) [Entitic vol]91.2 fL80 - 100 fLSalem City Hospital- [place], KYMonocytes (Bld) [#/Vol]0.60 10*3/[facility]- [place], USHAMonocytes/100 WBC (Bld)5 %4 - 8 % [facility]- [place], USHAPlatelet mean volume (Bld) [Entitic vol]NOT REPORTED6 - 12 fLSalem City Hospital- [place], KYPlatelets (Bld) [#/Vol]NOT REPORTEDSalem City Hospital- [place], USHA Platelets (Bld) [#/Vol]287 10*3/[facility]- [place], KYRBC (Bld) [#/Vol]4.37 10*6/uL4 - 5.2 m/[facility]- [place], KYRBC morphology finding Nom (Bld)NOT REPORTEDSalem [facility] Hospital- [place], KYSegmented neutrophils/100 WBC (Bld)79 %High47 - 75 % [facility]- [place], KYSegs Absolute9.50HighSalem City Hospital- [place], KYWBC (Bld) [#/Vol] 12.0 10*3/[facility]- [place], KYWBC (Bld) [#/Vol]NOT REPORTEDper 100 WBCSalem City Hospital- [place], KYWBC MorphologyNOT REPORTEDSelect Medical [facility], [facility]ITALC with Diffon [id number]. Basophil0.00 k/uLNormal0.0-0.2MSt. Mary's Medical Center on above:Performed By: #### CP, CDP #### [facility] [address] [id number] Mining Helper: José Higgins.Neutrophil (Seg)9.50 k/uLHigh2.5-7.0[facility] on above:Performed By: #### CP, CDP #### [facility] [address] [phone] Mining Helper: Maya Higgins Diff PerformedYESNormOhioHealth Hardin Memorial Hospital on above:Performed By: #### CP, CDP #### [facility] [address] [phone] Mining Helper: Jonathan Chisholm MDBasophils/100 WBC (Bld)0 %Normal0-2MMercy Health St. Anne HospitalComment on above:Performed By: #### CP, CDP #### [facility] [address] [id number] Mining Helper: Jonathan Chisholm MDEosinophils (Bld) [#/Vol]0.20 10*3/uLNormal 0.0-0.4[facility] on above:Performed By: #### CP, CDP #### [facility] [address] [place], [place] [phone] Mining Helper: CHRISTINE Higginsosinophils/100 WBC (Bld)2 %Normal0-5[facility] on above:Performed By: #### CP, CDP #### [facility] [address] [place] [address] Mining Helper: Jonathan Chisholm MDErythrocyte distribution width (RBC) [Ratio]12.6 %Uowohi29.1-15.2MMercy Health St. Anne HospitalComment on above:Performed By: #### CP, CDP #### [facility] [address] [phone] Mining Helper: Jonathan Chisholm MDHematocrit (Bld) [Volume fraction]39.8 %Normal 36-46[facility] HospitalComment on above:Performed By: #### CP, CDP #### [facility] [address] [phone] Mining Helper: Jonathan Chisholm MDHemoglobin (Bld) [Mass/Vol]13.8 g/dLNormal 12.0-16.0[facility]aritan Medical CenterComment on above:Performed By: #### CP, CDP #### [facility] [address] [phone] Mining Helper: Jonathan Chisholm MDLymphocytes (Bld) [#/Vol]1.70 10*3/uLNormal 1.2-5.2MUC Health HospitalComment on above:Performed By: #### CP, CDP #### [facility] [address] [phone] Mining Helper: Jamie Higginsmphocytes/100 WBC (Bld)14 %Bze70-76DnxufUniversity Hospitals Samaritan Medical CenterComment on above:Performed By: #### CP, CDP #### [facility] [address] [phone] Mining Helper: MEETA HigginsCH (RBC) [Entitic mass]31.5 vpVvbqtl41-84Oxegh Willard HospitalComment on above:Performed By: #### CP, CDP #### [facility] [address] [phone] Mining Helper: AWA HigginsC (RBC) [Mass/Vol]34.6 g/dPJvanvt94-15Twudg Willard HospitalComment on above:Performed By: #### CP, CDP #### [facility] [address] [place], [place] [phone] ([phone]) Mining Helper: MEETA HigginsCV (RBC) [Entitic vol]91.2 zVHkvlio87-343LtkrsUniversity Hospitals Samaritan Medical CenterComment on above:Performed By: #### CP, CDP #### [facility] [address] [place], [place] [phone] ([phone]) Mining Helper: MEETA Higginsonocytes (Bld) [#/Vol]0.60 10*3/uLNormal0.0-1.0 [facility] Medical CenterComuniversity of michigan health on above:Performed By: #### CP, CDP #### [facility] [address] [place], [place] [phone] (375) Mining Helper: MEETA Higginsonocytes/100 WBC (Bld)5 %Normal4-8[facility] Samaritan Medical CenterComment on above:Performed By: #### CP, CDP #### [facility] [address] [place] [address] Mining Helper: Zachary Higginsophil (Seg)79 %Dede42-66KidtcUniversity Hospitals Samaritan Medical CenterComment on above:Performed By: #### CP, CDP #### [facility] [address] [place], [place] [phone] (130) Mining Helper: Ynes Higginstebrain (Bld) [#/Vol]287 10*3/pQMsnalo786-738 [facility] Medical CenterComuniversity of michigan health on above:Performed By: #### CP, CDP #### [facility] [address] [place] [address] Mining Helper: SONJA HigginsBC (Bld) [#/Vol]4.37 10*6/uLNormal4.0-5.2MMercy Health St. Anne HospitalComment on above:Performed By: #### CP, CDP #### [facility] [address] [place], [place] [phone] Mining Helper: REED HigginsBC (Bld) [#/Vol]12.0 10*3/uLNormal4.5-13.5[facility]aritan Medical CenterComment on above:Performed By: #### CP, CDP #### [facility] [address] [place], [place] [phone] Mining Helper: José Higgins.Imm.GranulocyteNOT REPORTEDNormal0.00-0.30 [facility]aritan Medical CenterComment on above:Performed By: #### CP, CDP #### [facility] [address] [place] [address] Mining Helper: Jonathan Chisholm MDImmature granulocytes (Bld) [#/Vol]NOT REPORTED Adozsg5FlpmtRegency Hospital Companyment on above:Performed By: #### CP, CDP #### [facility] [address] [phone] Mining Helper: NAHDI Higgins AutomatedNOT REPORTEDNormalUniversity Hospitals Samaritan Medical CenterComment on above:Performed By: #### CP, CDP #### [facility] [address] [phone] Mining Helper: Ynes Higginsteserena mean volume (Bld) [Entitic vol]NOT REPORTEDNormal6.0-12.0[facility] Medical CenterComment on above:Performed By: #### CP, CDP #### [facility] [address] [place] [address] Mining Helper: Ynes Higginstelets (Bld) [#/Vol]NOT REPORTEDNormalRegency Hospital Companyment on above:Performed By: #### CP, CDP #### [facility] [address] [place], [place] [phone] Mining Helper: COURT Higgins morphology finding Nom (Bld)NOT REPORTED NormalMercy Playa Del Rey HospitalComment on above:Performed By: #### CP, CDP #### [facility] [address] [place] [address] Mining Helper: REED Higgins MorphologyNOT REPORTEDNormalUniversity Hospitals Samaritan Medical CenterComment on above:Performed By: #### CP, CDP #### [facility] [address] [place] [address] Mining Helper: HODAN Higginslone peak hospital Metabolic Profon 02-01-2019(cont.)Normal [facility]ar[facility] Medical CenterComuniversity of michigan health on above:Result Comment: Average GFR for 20-29 years old: 116 mL/min/1.73sq m Chronic Kidney Disease: <60 mL/min/1.73sq m Kidney failure: <15 mL/min/1.73sq m eGFR calculated using average adult body mass. Additional eGFR calculator available at: http://www.[employer]/multiple_crcl_2011.htmPerformed By: #### CP, CDP #### [facility] [address] [place] [address] Mining Helper: Jonathan Chisholm MDAlbumin [Mass/Vol]4.1 g/dLNormal3.5-5.2Mhighland district hospitaly Memorial Hospital At GulfportComment on above:Performed By: #### CP, CDP #### [facility] [address] [place] [address] Mining Helper: Hector Higginsline Phos63 U/CChfcgu40-339VtdafUniversity Hospitals Samaritan Medical CenterComment on above:Performed By: #### CP, CDP #### [facility] [address] [place] [address] Mining Helper: Jonathan Chisholm MDALT [Catalytic activity/Vol]8 U/LNormal5-33[facility] on above:Performed By: #### CP, CDP #### [facility] [address] [place] [address] Mining Helper: Jonathan Chisholm MDAnion gap [Moles/Vol]12 mmol/LNormal9-17[facility] Medical CenterComment on above:Performed By: #### CP, CDP #### [facility] [address] [place], [place] [phone] Mining Helper: Jonathan Chisholm MDAST [Catalytic activity/Vol]13 U/LNormal<32[facility] Medical CenterComment on above:Performed By: #### CP, CDP #### [facility] [address] [phone] Mining Helper: Jonathan Chisholm MDBilirubin Ql (U)0.40 mg/dLNormal0.30-1.20[facility] Medical CenterComment on above:Performed By: #### CP, CDP #### [facility] [address] [phone] Mining Helper: Jonathan Chisholm MDBUN/CRE Wknfh78Umzygk7-54Rtfgr [facility] Comment on above:Performed By: #### CP, CDP #### [facility] [address] [phone] Mining Helper: Jonathan Chisholm MDCalcium [Mass/Vol]9.1 mg/dLNormal8.6-10.4[facility] Medical CenterComment on above:Performed By: #### CP, CDP #### [facility] [address] [phone] Mining Helper: Jonathan Chisholm, MDChloride [Moles/Vol]103 mmol/WHorlao07-029JkoveUniversity Hospitals Samaritan Medical CenterComment on above:Performed By: #### CP, CDP #### [facility] [address] [place], [place] 8068090 Mining Helper: Jonathan Chisholm, MDCO2 [Moles/Vol]24 mmol/NEjgmgd03-10HknztUniversity Hospitals Samaritan Medical CenterComment on above:Performed By: #### CP, CDP #### [facility] [address] [place], [place] [phone] Mining Helper: HODAN Higginsreatinine [Mass/Vol]0.61 mg/dLNormal0.50-0.90 [facility] Medical CenterComment on above:Performed By: #### CP, CDP #### [facility] [address] [phone] Mining Helper: Jonathan Chisholm MDGFR, Amer>60Normal>60[facility] Del Rey HospitalComment on above:Performed By: #### CP, CDP #### [facility] [address] [place] [address] Mining Helper: Jonathan Chisholm MDGFR,non Amer>60Normal>60[facility] Del Rey HospitalComment on above:Performed By: #### CP, CDP #### [facility] [address] [phone] Mining Helper: Jonathan Chisholm MDGlucose [Mass/Vol]94 mg/bHWznysy81-88Kyist Willard HospitalComment on above:Performed By: #### CP, CDP #### [facility] [address] [phone] Mining Helper: GAGE Higginsotassium [Moles/Vol]3.8 mmol/LNormal3.7-5.3Mhighland district hospitaly Playa Del Rey HospitalComment on above:Performed By: #### CP, CDP #### [facility] [address] [place] [address] Mining Helper: Jonathan Chisholm MDProtein [Mass/Vol]7.1 g/dLNormal6.4-8.3[facility] Del Rey HospitalComment on above:Performed By: #### CP, CDP #### [facility] [address] [place], [place] [phone] Mining Helper: Jonathan Chisholm MDSodium [Moles/Vol]139 mmol/YRdsige683-733MwgcfUniversity Hospitals Samaritan Medical CenterComment on above:Performed By: #### CP, CDP #### [facility] [address] [place] [address] Mining Helper: Jonathan Chisholm MDUrea nitrogen [Mass/Vol]8 mg/dLNormal6-20[facility] Medical CenterComment on above:Performed By: #### CP, CDP #### [facility] [address] [place] [address] Mining Helper: Jonathan Chisholm MDAlbumin/Globulin [Mass ratio]NOT REPORTEDNormal 1.0-2.5[facility] Medical CenterComment on above:Performed By: #### CP, CDP #### [facility] [address] [place] [address] Mining Helper: KARLENE Higginstaging:NOT REPORTEDNormalUniversity Hospitals Samaritan Medical Center Comment on above:Performed By: #### CP, CDP #### [facility] [address] [place] [address] Mining Helper: Jonathan Chisholm [facility] – TULSAomprehensive Metabolic Panelon [id number] [Mass/Vol]4.1 g/dL3.5 - 5.2 g/dLSalem City Hospital- [place], KYAlbumin/Globulin [Mass ratio]NOT REPORTEDSalem City Hospital- [place], KYALP [Catalytic activity/Vol]63 U/L35 - 104 U/LMercy Health- [place], KYALT [Catalytic activity/Vol]8 U/L5 - 33 U/LMercy Health- [place], KYAnion gap [Moles/Vol]12 mmol/L9 - 17 mmol/LMercy Health- [place], KYAST [Catalytic activity/Vol]13 U/L<32[facility]- [place], KYBilirubin Ql (U)0.40 mg/dL 0.3 - 1.2 mg/dLMer Health- [place], KYBun/Cre Helho80[facility]- [place], KYCalcium [Mass/Vol]9.1 mg/dL8.6 - 10.4 mg/dLMercy Health- [place], KYChloride [Moles/Vol]103 mmol/L98 - 107 mmol/[facility], KYCO2 [Moles/Vol]24 mmol/L20 - 31 mmol/L [facility], KYCreatinine [Mass/Vol]0.61 mg/dL0.5 - 0.9 mg/dLSelect Medical [facility], KYGFR >60>60 mL/minSelect Medical [facility], KYGFR Non->60>60 mL/minSelect Medical [facility], KYGFR/1.73 sq M predicted among non- blacks MDRD (S/P/Bld) [Vol rate/Area]NOT REPORTEDSelect Medical [facility], KYGFR/1.73 sq M predicted among non-blacks MDRD (S/P/Bld) [Vol rate/Area][facility], [place] Comment on above:Average GFR for 20-29 years old: 116 mL/min/1.73sq m Chronic Kidney Disease: <60 mL/min/1.73sq m Kidney failure: <15 mL/min/1.73sq m eGFR calculated using average adult body mass. Additional eGFR calculator available at: http://www.[employer]multiple_crcl_2011.htm Glucose [Mass/Vol]94 mg/dL70 - 99 mg/dLSelect [facility], KYPotassium [Moles/Vol] 3.8 mmol/L3.7 - 5.3 mmol/[facility], KYProtein [Mass/Vol]7.1 g/dL6.4 - 8.3 g/dLSelect [facility], KYSodium [Moles/Vol]139 mmol/L135 - 144 mmol/[facility], KYUrea nitrogen [Mass/Vol]8 mg/dL6 - 20 mg/dLSelect [facility], [place] HCG, ,Urineon [id number] HCG ( test) Ql (U)NegativeNormal NEGUniversity Hospitals Samaritan Medical CenterComment on above:Performed By: #### [facility], UA #### [facility] [address] [place] [address] Mining Helper: Jonathan Phan, MDMicroscopic Urinalysison [id number], UA NOT REPORTEDNoneMercy Health- [place], KYBacteria, UA3+AbnormalNoneMercy [...] (Bld) [#/Vol]NOT REPORTEDMercy Health- [place], KYPregnancy, Urineon [id number] HCG ( test) Ql (U)NegativeNEGATIVEMercy Health- [place], KYUrinalysison [id number] UrineNegativeNEGATIVEMercy Health- [place], [place] Color, UAYELLOWYELLOWMercy Health- [place], KYGlucose, UrNegativeNEGATIVEMercy Health- [place], KYInterpretation and review of laboratory resultsAbnormalMercy Health- [place], KYKetones Ql (U)TRACEAbnormalNEGATIVEMercy Health- [place], KYLeukocyte esterase Test strip Ql (U)NegativeNEGATIVEMercy Health- [place], KYNitrite, Urine NegativeNEGATIVEMercy Health- [place], KYpH, UA6.0[facility]- [place], KYProtein (U) [Mass/Vol]1+AbnormalNEGATIVEMercy Health- [place], KYSpecific [place], UA1.020[facility]- [place], KYTurbidity UACLEARCLEARMercy Health- [place], KYUrinalysis CommentsMercy Health- [place], KYUrine Hgb3+AbnormalNEGATIVEMercy Health- [place], KYUrobilinogen, UrineNormalNormJ.W. Ruby [facility] Hospital, KYUrinalysis, Routineon 95-31-1230Eaoqjtqvxtp Acid,UrTRACEAbnormalNEGUniversity Hospitals Samaritan Medical CenterComuniversity of michigan health on above:Performed By: #### [facility], UA #### [facility] [address] [place] [address] Mining Helper: Jonathan Chisholm MDBilirubin, SemiQt,UrNegativeNormalNEGUniversity Hospitals Samaritan Medical CenterComment on above:Performed By: #### [facility], UA #### [facility] [address] [place] [address] Mining Helper: HODAN Higginsolor (U)YELLOWNoAvita Health System Galion Hospital Comment on above:Performed By: #### [facility], UA #### [facility] [address] [place] [address] Mining Helper: HODAN HigginsommentNoCleveland Clinic Euclid HospitalComuniversity of mich[facility] health on above:Performed By: #### [facility] [place], UA #### [facility] [address] [place] [address] Mining Helper: Jonathan Chisholm MDGlucose Ql (U)NegativeNormalThe [facility] on above:Performed By: #### [facility], UA #### [facility] [address] [place] [address] Mining Helper: Jonathan Chisholm MDHemoglobin, Ur3+AbnormalHighland District Hospital Comment on above:Performed By: #### [facility], UA #### [facility] [address] [place] [address] Mining Helper: Jonathan Chisholm MDLeukocyte esterase Test strip Ql (U)Negative NormalNEGUniversity Hospitals Samaritan Medical CenterComuniversity of [place] health on above:Performed By: #### [facility], UA #### [facility] [address] [place] [address] Mining Helper: Elizabeth Higgins,UrNegativeNormAshtabula General Hospital Comment on above:Performed By: #### [facility], UA #### [facility] [address] [place] [address] Mining Helper: Gage Higgins (U)6.0 [pH]Normal5.0-8.0[facility] Comment on above:Performed By: #### [facility], UA #### [facility] [address] [place] [address] Mining Helper: GAGE Higginscooper university hospital Ql (U)1+AbnormalHighland District Hospital Comment on above:Performed By: #### [facility], UA #### [facility] [address] [place] [address] Mining Helper: KARLENE Higginspecific gravity (U) [Rel density]1.020Normal 1.005-1.030[facility] Medical CenterComment on above:Performed By: #### [facility], UA #### [facility] [address] [place] [address] Mining Helper: ALFREDO HigginsurbidityCLEARNoalCCleveland Clinic Euclid Hospital Comment on above:Performed By: #### [facility], UA #### [facility] [address] [place] [address] Mining Helper: Yrn HigginsUrNormalNormalCleveland Clinic Mercy HospitalComment on above:Performed By: #### [facility], UA #### [facility] [address] [place] [address] Mining Helper: Jonathan Chisholm MDUrinalysis,Microon 02-01-2019-----NormalMercy Playa Del Rey HospitalComment on above:Performed By: #### [facility] [place], [facility] #### [facility] [address] [place] [address] Mining Helper: Jonathan Chisholm MDBacteria LM.HPF (Urine sed) [#/Area]3+Abnormal NONEMerThe University of Toledo Medical Center HospitalComment on above:Performed By: #### [facility], [facility]A #### [facility] [address] [place] [address] Mining Helper: Jonathan Chisholm MDEpithelial cells LM.HPF (Urine sed) [#/Area]20 TO 50NormalMercy Health Springfield Regional Medical Center HospitalComment on above:Performed By: #### [facility] [place] #### [facility] [address] [place] [address] Mining Helper: MEETA Higginsucus Strands2+AbnormalNONEMeCleveland Clinic Comment on above:Performed By: #### [facility] [place] #### [facility] [address] [place] [address] Mining Helper: SONJA HigginsBC (U) [#/Vol]2 TO 2Ehxkbc4-7Reiho Memorial Hospital At GulfportComment on above:Performed By: #### [facility] [place], [facility] #### [facility] [address] [place] [address] Mining Helper: Jonathan Chisholm MDWBC (U) [#/Vol]2 TO 4Uwjcjt1Vjeex Memorial Hospital At GulfportComment on above:Performed By: #### [facility], [facility]A #### [facility] [address] [place] [address] Mining Helper: Jonathan Chisholm MDAmorphous sediment LM Ql (Urine sed)NOT REPORTED NormalNONEMeEast [facility] Regional Hospital HospitalComment on above:Performed By: #### [facility] [place] #### [facility] [address] [place] [address] Mining Helper: HODAN Higginsasts LM.LPF (Urine sed) [#/Area]NOT REPORTED NormalMercy Playa Del Rey HospitalComment on above:Performed By: #### [facility] [place] #### [facility] [address] [place] [address] Mining Helper: HODAN Higginsrystals LM Nom (Urine sed)NOT REPORTEDNormalNONE [facility] HospitalComment on above:Performed By: #### [facility], [facility]A #### [facility] [address] [place] [address] Mining Helper: Jonathan Chisholm MDEpithelial, RenalNOT HVCCLCRCIsefns3Wrjoo Willard HospitalComment on above:Performed By: #### [facility], [facility]A #### [facility] [address] [place] [address] Mining Helper: Jonathan Chisholm MDOther ObservationsNOT REPORTEDNormalNREQMercy Health Springfield [facility] Center HospitalComment on above:Performed By: #### [facility], UA #### [facility] [address] [place] [address] Mining Helper: Jonathan Chisholm MDTrichomonasNOT REPORTEDNormalNONEMercOhioHealth Arthur [facility] HospitalComment on above:Performed By: #### [facility]MICANeville [facility] [place], [facility] #### [facility] [address] [place] [address] Mining Helper: Jonathan Chisholm MDYeast LM Ql (Urine sed)NOT REPORTEDNormalNONE [facility] HospitalComment on above:Performed By: #### [facility] [place] #### [facility] [address] [place] [address] Mining Helper: Jonathan Chisholm MD Vital Signs Date TimeVital SignValuePerforming QitrcgrrgQmpqumyc96-87-8570 14:49-0400Body mass index (BMI) [Ratio]30.55 kg/x0KzyrdtmwHazel Romero VOIP NETWORK TECHNICIAN Work Phone: [phone])931-[address] [place], [place] [address]Kdqwawxejm03-66-4206 14:49-0400Body asrtvk15.84 kgKrdayton Romero VOIP NETWORK TECHNICIAN Work Phone: [phone])[facility] [place], [place] [address]Ocqpzjrrxd62-76-1818 14:49-0400Diastolic blood mm[Hg]Hazeldayton Romero VOIP NETWORK TECHNICIAN Work Phone: [phone])[facility] [place], [place] [address]Ovbouvrbau05-52-6750 14:49-0400Systolic blood qecrakbj480 mm[Hg]Hazeldayton Romero VOIP NETWORK TECHNICIAN Work Phone: 1(252)[facility] [place], [place] [address]Bittinodgp02-46-3688 14:14-0400Body mass index (BMI) [Ratio]30.67 kg/t9Xjfwa Peggy DO Work Phone: 1(759)[facility] [place], [place] [address]Hqqtwealje67-26-0217 14:14-0400Body .18 kgCorey Peggy DO Work Phone: [phone])[facility] [place], [place] [address]Oflnbkgrle09-83-8560 14:14-0400Diastolic blood ekonwsyy12 mm[Hg]Jack Peggy DO Work Phone: 1(676)[facility] [place], [place] [address]Usskirdvdk77-54-0978 14:14-0400Systolic blood osywigwx780 mm[Hg]Jack Peggy DO Work Phone: 1([phone])[facility] [place], [place] [address]Wgcbbatyqu47-11-7386 09:59-0400Body mass index (BMI) [Ratio]30.18 kg/x3LuzujqtoHazel Romero VOIP NETWORK TECHNICIAN Work Phone: 1(251)[facility] [place], [place] [address]Qfuphsuslc36-12-2538 09:59-0400Body etelwx85.82 kgKrvenancioa Heather VOIP NETWORK TECHNICIAN Work Phone: 1(805)[facility] [place], [place] [address]Sthbfmnoqh02-58-9999 09:59-0400Diastolic blood jqosjirb06 mm[Hg]Hazel Romero VOIP NETWORK TECHNICIAN Work Phone: [facility] CampusEgbdectsdg65-51-0674 09:59-0400Systolic blood mlapullg968 mm[Hg]Hazel Romero VOIP NETWORK TECHNICIAN Work Phone: 1(281)740-[address] [place], [place] [address]Bduxrdmhbl52-16-1573 08:54-0400Body mass index (BMI) [Ratio]30.22 kg/m2Jayla DA SILVA Work Phone: 1(739)931-[address] [place], [place] [address]Nfwmvnfvii92-03-9788 08:54-0400Body arzdhx82.94 kgAmy Cali DA SILVA Work Phone: [place] [address]Fzedtgyfiq30-41-5499 08:54-0400Diastolic blood ybzkalch05 mm[Hg]Jayla DA SILVA Work Phone: 1(637)672-[address] [place], [place] [address]Mufgtrqbur61-57-5101 08:54-0400Systolic blood ufchhyvl889 mm[Hg]Jayla DA SILVA Work Phone: [phone] [place], [place] [address]Evpvbdhgja31-21-4295 09:38-0400Body mass index (BMI) [Ratio]29.67 kg/m4Wrmpd Peggy DO Work Phone: 1(919)983-[address] [place], [place] [address]Yoqpdqfoti85-87-0179 09:38-0400Body nrtqed23.37 kgCorey Peggy DO Work Phone: 1(512)808-[address] [place], [place] [address]Vfechtdytt07-71-8361 09:38-0400Diastolic blood juxvzlov09 mm[Hg]Jack Peggy DO Work Phone: 1(906)925-[address] [place], [place] [address]Qxoonquabc44-52-1162 09:38-0400Systolic blood xmlqxisz073 mm[Hg]Jack Peggy DO Work Phone: 1(891)451-[address] [place], [place] [address]Lejsjagrct39-32-1530 14:30-0400Body mass index (BMI) [Ratio]29.83 kg/h0Pzkgm Peggy DO Work Phone: 1([phone])347-[address] [place] [address]-19-2025 14:30-0400Body nyhnqt36.83 kgCorey Peggy DO Work Phone: [facility] CampusOibhavjnfi56-32-6549 14:30-0400Diastolic blood pgxmsipg15 mm[Hg]Jack Peggy DO Work Phone: [facility] CampusUnadodqffo74-83-0697 14:30-0400Systolic blood lrzbzauk456 mm[Hg]Jack Peggy DO Work Phone: [facility] CampusMqikekepkx99-34-3325 13:26-0400Body mass index (BMI) [Ratio]28.29 kg/m2Jayla DA SILVA Work Phone: [facility] CampusBoqotwzlom62-57-6762 13:26-0400Body wrwdex28.49 kgJayla DA SILVA Work Phone: [facility] CampusBxwispfoqy65-17-0423 13:26-0400Diastolic blood silmlydo11 mm[Hg]Jayla DA SILVA Work Phone: [facility] CampusVqhnksuogk16-63-8272 13:26-0400Systolic blood spasurha250 mm[Hg]Jayla DA SILVA Work Phone: [facility] CampusLexzvljicy91-66-0198 08:47-0400Body .6 cmGuadalupe Peres MD Work Phone: [phone] [place], [place] 8751007-01-2025 08:47-0400Body mass index (BMI) [Ratio]27.48 kg/m2Guadalupe Peres MD Work Phone: [phone])[address] [place], [place] 8751007-01-2025 08:47-0400Body gpmsfy20.2 kgGuadalupe Peres MD Work Phone: [phone] [place], [place] 8751007-01-2025 08:47-0400Diastolic blood cdumfvkb74 mm[Hg]Guadalupe Peres MD Work Phone: [phone] [place], [place] 8751007-01-2025 08:47-0400Heart rate 90 /Zahra Peres MD Work Phone: [phone] [place], [place] 8751007-01-2025 08:47-0400Systolic blood locjrvyi193 mm[Hg]Guadalupe Peres MD Work Phone: [phone] [place], [place] 8751006-24-2025 14:10-0400Body mass index (BMI) [Ratio]27.02 kg/l1Gbnte Peggy DO Work Phone: [phone] [place], [place] 5945606-24-2025 14:10-0400Body sbuquo53.93 kgCorey Peggy DO Work Phone: [phone] [place], [place] 5945606-24-2025 14:10-0400Diastolic blood qoatzsgf31 mm[Hg]Jack Peggy DO Work Phone: 1([phone])[facility] [place], [place] [address]Uosvrbzlfi92-56-4703 14:10-0400Systolic blood didskhyj730 mm[Hg]Jack Peggy DO Work Phone: 1([phone] [place], [place] 5945605-27-2025 14:35-0400Body mass index (BMI) [Ratio]27.41 kg/u6Myjzx Peggy DO Work Phone: 1(204)[address] [place], [place] 5945605-27-2025 14:35-0400Body libgsm65.02 kgCorey Peggy DO Work Phone: [phone] [place], [place] 5945605-27-2025 14:35-0400Diastolic blood pygbwbhc10 mm[Hg]Jack Peggy DO Work Phone: 1([phone] [place], [place] 5945605-27-2025 14:35-0400Systolic blood cmrlusqn131 mm[Hg]Jack Peggy DO Work Phone: 1(157)[address] [place], [place] 5945605-08-2025 13:34-0400Body mass index (BMI) [Ratio]26.95 kg/m2[facility]05-08-2025 13:34-0400Body ubwjgv63.75 [facility]2025 13:34-0400Diastolic blood futvtcsx66 mm[Hg][facility]05-08-2025 13:34-0400Systolic blood ixywwmad691 mm[Hg][facility]11-27-2024 11:05-0500Body mass index (BMI) [Ratio]27.6 kg/v4Lorgh Peggy DO Work Phone: [phone] [place], [place] 5945611-27-2024 11:05-0500Body nbwyal19.56 kgCorey Peggy DO Work Phone: [phone] [place], [place] [address]Hjojfivwbk22-78-5944 11:05-0500Diastolic blood vasdcyiq21 mm[Hg]Jack Peggy DO Work Phone: [facility] CampusWvfhmqealb00-42-3504 11:05-0500Systolic blood tvoopikx548 mm[Hg]Jack Peggy DO Work Phone: [facility] CampusWxuyusbbch20-99-3543 13:52-0400Body peufng470.6 cmCorey Peggy DO Work Phone: [facility] CampusXifgodcpqs87-60-9187 13:52-0400Body mass index (BMI) [Ratio]26.6 kg/t0Omhpg Peggy DO Work Phone: [facility] CampusCyewjlnwfu27-07-5368 13:52-0400Body ncujhj20.75 kgCorey Peggy DO Work Phone: [facility] CampusCwxcbdaysw81-84-8783 13:52-0400Diastolic blood yynsqepp37 mm[Hg]Jack Peggy DO Work Phone: [facility] CampusPsaecrqhoq58-34-4350 13:52-0400Systolic blood yshykidr244 mm[Hg]Jack Peggy DO Work Phone: [facility] CampusGbhvmrljfo59-83-2270 18:10-0500Body eugnii675.64 cmAcelestina Anton Other [employer] Other 11-07-2023 18:10-0500Body mass index (BMI) [Ratio] 26.95 kg/f2TzqheRina Anton Other [employer] Other 11-07-2023 18:10-0500Body roudyumragi78.9 [degF]Rina Anton Other [employer] Other 11-07-2023 18:10-0500Body .75 kgRina Anton Other [employer] Other 11-07-2023 18:10-0500Respiratory rate18 /minRina Anton Other [employer] Other 11-07-2023 18:10-1059BrW8% (BldA) [Mass fraction]97 % Rina Anton Other [employer] Other 867960-03-3428 06:41-0400BP Tdkeztdjb71 mm[Hg][facility] [employer] [facility], IQ73-91-5943 06:41-0400BP Krashudc193 mm[Hg][facility] [employer] [facility], NI07-79-4873 06:41-0400Pulse (Heart Rate)64 /min [facility] [employer] [facility], UP32-29-3388 04:30-0400Body Kwgousbcuki22.01 [degF][facility], SU40-21-3288 04:30-0400Body ajzjsh59.92 kgM[facility] [employer] [facility], KG40-32-6877 04:30-0400Pulse Wlmvaynj073 % [facility], VH63-35-9747 04:30-0400Respiratory Rate18 /min [facility], ID Encounters Encounter DateEncounter TypeCare ProviderFacilityStart: 03-19-2025 End: 63-07-2660Ohozphmvw Result EncounterCorey Peggy DO Work Phone: noms External Department UnsolicitedStart: 03-19-2025 End: 41-48-6701Rzdlhstsw Result EncounterCorey Peggy DO Work Phone: noms External Department UnsolicitedStart: 03-17-2025 End: 05-64-9332Pbhkjsuwx Result EncounterHazel Romero NP Work Phone: noms External Department UnsolicitedStart: 03-17-2025 End: 04-11-7964Yboqiyvzt Result EncounterHazel Romero NP Work Phone: no External Department UnsolicitedStart: 03-12-2025 End: 77-51-7712Wwmgmkrg flow sheetKristina Heather VOIP NETWORK TECHNICIAN Work Phone: [facility] OBGYNComment on above:Hemorrhoids, unspecified hemorrhoid type (Primary Dx); Third trimester ([facility]); 33 weeks gestation of ([facility])Start: 03-12-2025 End: 84-78-7128ienglkutfuIJGDGUYF EBERLYNot AvailableStart: 03-12-2025 End: 68-66-1067Mvbvch flowsheetKristina Heather VOIP NETWORK TECHNICIAN Work Phone: [facility] [place] OBGYNStart: 03-12-2025 End: 14-18-2611Zlgvvc flowsheetKristina Heather VOIP NETWORK TECHNICIAN Work Phone: [facility] [place] OBGYNStart: 02-27-2025 End: 24-23-4861kewtfeltmhURHDI FAZIONot AvailableStart: 02-25-2025 End: 06-69-6625Ovprgx flowsheetCorey Peggy DO Work Phone: [facility] [facility]BGYNStart: 02-25-2025 End: 90-18-2031Dsvxce flowsheetCorey Peggy DO Work Phone: [facility] [place] OBGYNStart: 02-25-2025 End: 29-53-0309Dbahqsgw flow sheetCorey Peggy DO Work Phone: [facility] [place] OBGYNComment on above:Third trimester ([facility]); 31 weeks gestation of ([facility]); POTS (postural orthostatic tachycardia syndrome); Pain of right lower extremityStart: 02-25-2025 End: 63-77-6194krkyxbdwtbTYPDS FAZIONot AvailableStart: 02-11-2025 End: 70-38-0756Oxgkrf flowsheetKristina Heather VOIP NETWORK TECHNICIAN Work Phone: [facility] [place] OBGYNStart: 02-11-2025 End: 22-63-2003Cxeutr flowsMoedayton Heather PURCELL Work Phone: [facility] [place] OBGYNStart: 02-11-2025 End: 71-90-1222Rckbxydh flow Lea Sanchezerly VOIP NETWORK TECHNICIAN Work Phone: [facility] [place] OBGYNComment on above: size inconsistent with dates ([facility]) (Primary Dx); Third trimester ([facility]); 29 weeks gestation of ([facility])Start: 02-11-2025 End: 46-25-0947ucsqifcdxfIVZWDCAF EBBANDARNot AvailableStart: 01-29-2025 End: 98-84-7170Netguqxqa Result EncounterJayla DA SILVA Work Phone: [facility] External Department UnsolicitedStart: 01-29-2025 End: 88-68-5473Raqfwqrjp Result EncounterJayla DA SILVA Work Phone: [facility] External Department UnsolicitedStart: 01-28-2025 End: 57-51-6500Gmtuoj Izzy DA SILVA Work Phone: [facility] [place] OBGYNStart: 01-28-2025 End: 17-78-4311Yfqgbu Izzy DA SILVA Work Phone: [facility] [place] [facility]BGYNStart: 01-28-2025 End: 70-55-3536Mvonrxos flow Nathaniel DA SILVA Work Phone: [facility] [place] OBGYNComment on above:Second trimester ([facility]); 27 weeks gestation of ([facility]); Elevated glucose tolerance testStart: 01-28-2025 End: 46-35-6922tmogjiowsiQWT RAMEYNot AvailableStart: 01-27-2025 End: 81-49-7778Bxvsqxdnk Result EncounterCorey Peggy DO Work Phone: [facility] External Department UnsolicitedStart: 01-27-2025 End: 54-76-2869Oboaaztav Result EncounterCorey Peggy DO Work Phone: [facility] External Department UnsolicitedStart: 01-24-2025 End: 10-66-3153ummcrczsmiDOLUCUniversity Hospitals Lake West Medical Centertart: 01-21-2025 End: 76-47-8225Famuadult Result EncounterJayla DA SILVA Work Phone: [facility] External Department UnsolicitedStart: 01-21-2025 End: 35-91-2177Aanvvnaxs Result EncounterJayla DA SILVA Work Phone: [facility] External Department UnsolicitedStart: 01-16-2025 End: 20-95-5247Xfddsc flowsheetCorey Peggy DO Work Phone: [facility] [place] [facility]BGYNStart: 01-16-2025 End: 48-11-8630Vzckkb flowsheetCorey Peggy DO Work Phone: [facility] [place] [facility]BGYNStart: 01-16-2025 End: 44-48-0990Japsrlmk flow sheetCorey Peggy DO Work Phone: [facility] [place] OBGYNComment on above:25 weeks gestation of ([facility]); Second trimester ([facility]); Palpitations; Syncope, unspecified syncope type; Gastroesophageal reflux in ([facility])Start: 01-16-2025 End: 12-69-0360njulgycnauJKDAY FAZIONot AvailableStart: 01-07-2025 End: 00-56-9643Vzvodt Izzy DA SILVA Work Phone: [facility] [place] [facility]BGYNStart: 01-07-2025 End: 64-58-2324Tmgagt Izzy DA SILVA Work Phone: [facility] [place] [facility]BGYNStart: 01-07-2025 End: 61-30-5552Rumgtavv flow sheetJayla DA SILVA Work Phone: [facility] [place] OBGYNComment on above:Second trimester ([facility]); 23 weeks gestation of ([facility]); Palpitations; TachycardiaStart: 01-07-2025 End: 72-68-8841cffveaatifNLC RAMEYNot AvailableStart: 12-31-2024 End: 71-58-7978Urcvulju flow sheetCorey Peggy DO Work Phone: [facility] [place] OBGYNComment on above:Second trimester ([facility]); 23 weeks gestation of ([facility]); Diabetes mellitus screeningStart: 12-31-2024 End: 57-12-9077utuyrzltysZOXCI FAZIONot AvailableStart: 12-31-2024 End: 58-74-7197Hykcrr flowsheetCorey Peggy DO Work Phone: [facility] [place] [facility]BGYNStart: 12-31-2024 End: 21-30-2227Bijcbf flowsheetCorey Peggy DO Work Phone: [facility] [place] OBGYNStart: 12-10-2024 End: 99-37-3571cwitijwawrGDYHG R FAZIOProMedica [facility] HospitalStart: 12-03-2024 End: 69-34-1847Sknoes flowsheetJayla DA SILVA Work Phone: [facility] BCP OBStart: 12-03-2024 End: 16-63-1109Qpswvu flowsheetJayla DA SILVA Work Phone: [facility] OBStart: 12-03-2024 End: 25-59-4363Iqkxzhez flow sheetJayla DA SILVA Work Phone: [facility] BCP OBComment on above:Second trimester ([facility]); 19 weeks gestation of ([facility])Start: 12-03-2024 End: 82-95-6878ylndgdfkomPFV RAMEYNot AvailableStart: 11-12-2024 End: 57-30-8575Otnhqd consultation new/estab patient 58 Zahra Peres MD Work Phone: [phone]-[facility] Comment on above:Adnexal mass (Primary Dx); 16 weeks gestation of ; Uterine fibroids affecting in second trimester; Localized swelling of right lower extremityStart: 11-12-2024 End: 22-22-9245Viskey OnlyAmy Marmaduke LPNMaternal- Medicine at [facility] HospitalComment on above:Adnexal mass (Primary Dx); Uterine fibroids affecting in second trimester; Localized swelling of right lower extremityStart: 11-05-2024 End: 26-82-3395Kcftab flowsheetCorey Peggy DO Work Phone: noms BCP OBStart: 11-05-2024 End: 42-06-9771Simxlm flowsheetCorey Peggy DO Work Phone: noms BCP OBStart: 11-05-2024 End: 11-78-1686Pwqujiscm Result EncounterCorey Peggy DO Work Phone: noms External Department UnsolicitedStart: 11-05-2024 End: 34-11-5822Absjysvj Result EncounterCorey Peggy DO Work Phone: noms External Department UnsolicitedStart: 11-05-2024 End: 72-77-2063Gzrelxg encounter procedureCorey Peggy DO Work Phone: [facility] Work Phone: Start: 11-05-2024 End: 61-15-5488Psfazmtw preventive med est patient 18-39 yrsCorey Peggy DO Work Phone: noms BCP OBComment on above:Well woman exam with routine gynecological exam; Second trimester ([facility]); 15 weeks gestation of ([facility]); Vaginal discharge; STD exposureStart: 11-05-2024 End: 57-67-6505ghnvafbnyoFzilu [facility] Work Phone: Start: 11-05-2024 End: 38-69-2882Dxkbqdnv ReferredCorey Peggy-LAB Path Spec [place] HospStart: 10-08-2024 End: 42-08-9642Eqxyncap flow sheetCorey Peggy DO Work Phone: noms BCP OBComment on above:11 weeks gestation of ; First trimester ; Other constipation; Gastroesophageal reflux in pregnancyStart: 10-08-2024 End: 40-04-3885evcaywdtmgHMPOB FAZIONot AvailableStart: 10-08-2024 End: 54-99-0214Uayvbn flowsheetCorey Peggy DO Work Phone: NOQA BCP OBStart: 10-08-2024 End: 61-43-9075Zjkreo flowsheetCorey Peggy DO Work Phone: NOLM BCP OBStart: 09-24-2024 End: 96-24-7907Qgutvgjey Result EncounterCorey Peggy DO Work Phone: NOM[facility] External Department UnsolicitedStart: 09-24-2024 End: 41-37-7592Bahsndnzz Result EncounterCorey Peggy DO Work Phone: noms External Department UnsolicitedStart: 09-19-2024 End: 34-67-9883Ubcsyc outpatient visit 5 minutesNoms Bcp Ob Peggy NurseNOMS BCP OBComment on above:GA: 8z4zTxbco: 09-19-2024 End: 35-59-4261nrglrufmziPJSIK FAZIONot AvailableStart: 08-28-2024 End: 33-82-2376ebqfjarqxdKLHCO FAZIONot AvailableStart: 08-26-2024 End: 14-56-5605Esmjnjzga Result EncounterCorey Peggy DO Work Phone: NOMW External Department UnsolicitedStart: 08-26-2024 End: 30-77-3942Qewzlbymn Result EncounterCorey Peggy DO Work Phone: NOUG External Department UnsolicitedStart: 08-24-2024 End: 64-07-7144Uqgeaterl Result EncounterCorey Peggy DO Work Phone: NO External Department UnsolicitedStart: 08-24-2024 End: 62-90-0164Dsampfpmg Result EncounterCorey Peggy DO Work Phone: NOFM External Department UnsolicitedStart: 08-22-2024 End: 50-67-4613Vranjuexm Result EncounterCorey Peggy DO Work Phone: NOKK External Department UnsolicitedStart: 08-22-2024 End: 59-86-3437Iskfvplso Result EncounterCorey Peggy DO Work Phone: NOMS External Department UnsolicitedStart: 08-20-2024 End: 37-13-9458Zsstbaxmn Result EncounterCorey Peggy DO Work Phone: NOMS External Department UnsolicitedStart: 08-20-2024 End: 89-51-7907Jlbjhamzm Result EncounterCorey Peggy DO Work Phone: NOMS External Department UnsolicitedStart: 08-17-2024 End: 98-48-2151Xyntmdetu Result EncounterCorey Peggy DO Work Phone: NOMS External Department UnsolicitedStart: 08-17-2024 End: 19-78-8463Azdjxxuvg Result EncounterCorey Peggy DO Work Phone: NOMS External Department UnsolicitedStart: 08-15-2024 End: 06-38-1178Oxjcezcly Result EncounterCorey Peggy DO Work Phone: NOMS External Department UnsolicitedStart: 08-15-2024 End: 01-43-1654Lkvwuatkr Result EncounterCorey Peggy DO Work Phone: NOMS External Department UnsolicitedStart: 06-14-2024 End: 87-52-4762Arxmrzuhi Result EncounterCorey Peggy DO Work Phone: NOMS External Department UnsolicitedStart: 06-14-2024 End: 44-23-1643Yzjjkvpdo Result EncounterCorey Peggy DO Work Phone: NOMS External Department UnsolicitedStart: 04-18-2024 End: 13-78-5258Gmnsugxgb Result EncounterCorey Peggy DO Work Phone: NOMS External Department UnsolicitedStart: 04-18-2024 End: 86-38-6334Fptshodfh Result EncounterCorey Peggy DO Work Phone: noms External Department UnsolicitedStart: 04-10-2024 End: 22-96-4355Yvvkpb flowsheetCorey Peggy DO Work Phone: NOEX BCP OBStart: 04-10-2024 End: 89-40-4764Bkauys flowsheetCorey Peggy DO Work Phone: NOQR BCP OBStart: 04-10-2024 End: 92-42-9471Qsvsba outpatient visit 15 minutesCorey Peggy DO Work Phone: noms BCP OBComment on above:Encounter for infertility; Hormone disorderStart: 04-10-2024 End: 52-53-9991qqilgghsdeVBTQX FAZIONot AvailableStart: 03-21-2024 End: 82-74-9907Xuwwzblnl Result EncounterCorey Peggy DO Work Phone: noms External Department UnsolicitedStart: 03-21-2024 End: 11-70-7903Bzawxgkhc Result EncounterCorey Peggy DO Work Phone: noms External Department UnsolicitedStart: 02-17-2024 End: 71-53-3090Dvhnzutzt Result EncounterCorey Peggy DO Work Phone: noms External Department UnsolicitedStart: 02-17-2024 End: 83-69-3541Xallxrwlq Result EncounterCorey Peggy DO Work Phone: noms External Department UnsolicitedStart: 2024 End: 16-07-3773Yuybehapf Result EncounterCorey Peggy DO Work Phone: NOEU External Department UnsolicitedStart: 2024 End: 32-22-0932Bpzbxyubm Result EncounterCorey Peggy DO Work Phone: noms External Department UnsolicitedStart: 2024 End: 57-01-5001Nbitop outpatient visit 15 minutesCorey Peggy DO Work Phone: NOXW BCP OBComment on above:Female infertility; History of miscarriageStart: 01-05-2024 End: 96-49-4433Kvzgxhq encounter procedureMD Zachary Mayes Work Phone: [facility] C[facility]-Lab [facility] [place] Work Phone: Start: 01-05-2024 End: 87-39-9341fjuiazedqbUS Zachary Alvarez [place] Work Phone: [phone] [place] [address] Ctr Work Phone: Start: 12-28-2023 End: 35-69-7735Apdgdmg encounter procedureMD Zachary Mayes Work Phone: [phone] [place] [address] Ctr-Lab [facility] Work Phone: Start: 12-28-2023 End: 65-36-0184nyamsdrqmfLB Zachary Alvarez [place] Work Phone: [phone] [place] [address] Ctr Work Phone: Start: 12-22-2023 End: 05-53-5963Rukoqtt encounter procedureMD Zachary Mayes Work Phone: [phone] [place] [address] Ctr-Lab [facility] [place] Work Phone: Start: 12-22-2023 End: 10-83-3932btlmwamaokVV Zachary Alvarez [place] Work Phone: [phone] [place] [address] Ctr Work Phone: Start: 12-20-2023 End: 82-41-0842Pywaysi encounter procedureMD Zachary Mayes Work Phone: [facility] Ctr-Ultrasound [facility] [place] Work Phone: Start: 12-20-2023 End: 49-08-5626fvdszecgrrSQ Zachary Alvarez [place] Work Phone: [phone] [place] [address] Ctr Work Phone: Start: 12-09-2023 End: 24-64-7633Qylefjs encounter procedureMD Zachary Mayes Work Phone: [facility] C[facility]-Lab [facility] [place] Work Phone: Start: 12-09-2023 End: 57-66-0890youcbwagdxRF Zachary Mayes Work Phone: [facility] Ctr Work Phone: Start: 12-07-2023 End: 70-81-8853Vvbompl encounter procedureMD Zachary Mayes Work Phone: [phone] [place] [address] Medical Ctr-Lab [facility] Work Phone: Start: 12-07-2023 End: 24-83-6691ggqjpmxukvBV Zachary Mayes Work Phone: [phone] [place] [address] Medical Ctr Work Phone: Start: 12-05-2023 End: 03-97-0034Ubzdlsw encounter procedureMD Zachary Mayes Work Phone: [phone] [place] [address] Medical Ctr-Lab [facility] Work Phone: Start: 12-05-2023 End: 37-33-9614zbogjnnmwgBW Zachary Mayes Work Phone: [phone] [place] [address] Ctr Work Phone: Start: 12-02-2023 End: 46-64-8839ycdixwmwuvYT Zachary Mayes Work Phone: [phone] [place] [address] Ctr Work Phone: Start: 12-02-2023 End: 74-07-2083Chkvqjy encounter procedureMD Zachary Mayes Work Phone: [facility] C[facility]-Lab [facility] [place] Work Phone: Start: 05-01-2023 End: 96-92-2102Lyjddoncy to same day surgery centerMD Zachary Mayes Work Phone: [phone] [place] [address] Ctr-XRay [facility] [place] Work Phone: Start: 05-01-2023 End: 54-99-7524egmvkujcofGE Zachary Mayes Work Phone: [facility] Work Phone: Start: 03-21-2023 End: 31-99-7105xfklslxsqjMrjjn Keller Other [employer] Other Start: 17-02-9216Mlbuwe outpatient new 30 minutesAmber DeseanFPG Urgent Care ClydeStart: 02-01-2019 End: 39-08-2612Ljxmwgmbf department patient visitVESMUNSON MED[facility] DIMITROVMercy Covington County Hospitaltart: 02-01-2019 End: 16-10-6425Pypcporpl department patient visitVesgreenbrier valley medical center Dago Work Phone: [facility] EDComment on above:Abdominal pain, right lower quadrant (Primary Dx); History of ovarian cyst Procedures DateProcedureProcedure DetailPerforming ClinicianStart: 85-14-2303TL OB CERVICAL LENGTHCorey Peggy DO Work Phone: Start: 28-00-1458GP OB BPP W NON-STRESSCorey Peggy DO Work Phone: Start: 83-23-7248FR OB PLACENTACorey Peggy DO Work Phone: Start: 44-69-3240OUN CBC WITH AUTO DIFFKristina Heather VOIP NETWORK TECHNICIAN Work Phone: Start: 92-02-9692Wggns dip stick/tablet rgnt non-auto w/o micrscpKristina Heather VOIP NETWORK TECHNICIAN Work Phone: Start: 15-11-3217Wtyge dip stick/tablet rgnt non-auto w/o micrscpCorey Peggy DO Work Phone: Start: 26-30-7159Zvlcf dip stick/tablet rgnt non-auto w/o micrscpKristina Heather VOIP NETWORK TECHNICIAN Work Phone: Start: 31-54-9059THNNOMF TOLERANCE 3 HOURJayla DA SILVA Work Phone: Start: 07-16-5278Qnurh dip stick/tablet rgnt non-auto w/o micrscpCorey Peggy DO Work Phone: Start: 61-98-4870WHMHULX 1 HOURCorey Peggy DO Work Phone: Start: 03-47-0816BR ECHO DOPPLER COMPLETEJayla DA SILVA Work Phone: Start: 54-81-6944Jolyv dip stick/tablet rgnt non-auto w/o micrscpCorey Peggy DO Work Phone: Start: 22-99-7638Muizs dip stick/tablet rgnt non-auto w/o micrscpAmy Cali DA SILVA Work Phone: Start: 02-60-6182Tzsak dip stick/tablet rgnt non-auto w/o micrscpCorey Peggy DO Work Phone: Start: 76-69-8334Eyuoc dip stick/tablet rgnt non-auto w/o micrscpAmy Cali DA SILVA Work Phone: Start: 98-02-2278XPQNR FREE CELL DNA (NON-[facility] SEND OUT)Not In System Ref ProvStart: 11-18-8595RBZWIGWJX VAGINITIS (HTRX)Jack Peggy DO Work Phone: Start: 58-89-7545Omtlb dip stick/tablet rgnt non-auto w/o micrscpCorey Peggy DO Work Phone: Start: 52-19-6225XCO,APTIMA HPV,AGE GDLNCorey Peggy DO Work Phone: Start: 48-86-3933ZJSJIPLMH REQUEST FOR LAB CORPCorey Peggy DO Work Phone: Start: 30-92-2717Coaxt dip stick/tablet rgnt non-auto w/o micrscpCorey Peggy DO Work Phone: Start: 63-10-2943HHH HEMOGLOBIN K5BLkmaj Peggy DO Work Phone: Start: 81-33-4061Uhcpk dip stick/tablet rgnt non-auto w/o micrscpCorey Peggy DO Work Phone: Start: 51-82-1569PRC PREG QUANT HCGCorey Peggy DO Work Phone: Start: 12-76-7024JLX PREG QUANT HCGCorey Peggy DO Work Phone: Start: 36-98-5183HYO PREG QUANT HCGCorey Peggy DO Work Phone: Start: 25-13-0540IRI PREG QUANT HCGCorey Peggy DO Work Phone: Start: 95-95-6877JIR PREG QUANT HCGCorey Peggy DO Work Phone: Start: 77-02-2470RYB PREG QUANT HCGCorey Peggy DO Work Phone: Start: 83-11-4779JHR PROGESTERONECorey Peggy DO Work Phone: Start: 85-02-6058UVN PROGESTERONECorey Peggy DO Work Phone: Start: 36-96-5064LBD PREG QUANT HCGCorey Peggy DO Work Phone: Start: 91-74-0061EMK PROGESTERONECorey Peggy DO Work Phone: Start: 82-86-5593SBD HEMOGLOBIN B5WOulqk Peggy DO Work Phone: Start: 51-42-9108Ceurpxxylw ultrasound of gravid uterusMD Zachary Mayes Work Phone: Start: 70-51-4340Bpxoacwvfb microscopic onlyVESELIN DIMITROVStart: 42-90-0926Xipfx test visual color cmprsn methsVESELIN DIMITROVStart: 77-23-7491Etcfe dip stick/tablet rgnt auto w/o microscopyVESELIN DIMITROVStart: 19-59-2356Bztew count complete auto&auto difrntl wbcVESELIN DIMITROVStart: 67-63-7347Wfilwnlsvflfk metabolic panelVESELIN DIMITROVStart: 72-35-3269Vxxglmilwf microscopic onlyVeselin Dago Work Phone: start: 95-72-8743Rurjz test visual color cmprsn methsVeselin Dago Work Phone: start: 45-36-0752Fthdy dip stick/tablet rgnt auto w/o microscopyVeselin Dago Work Phone: start: 86-34-9916Nmlzl count complete auto&auto difrntl wbcVeselin Dago Work Phone: start: 31-86-3882Cujjzuazuyomw metabolic panelVeselin Dago Work Phone: Plan of Treatment DateCare ActivityDetailAuthorStart: 08-82-1069Jvuyc BMI ScreeningAdult BMI ScreeningProJoint Township District Memorial Hospitalca Health SystemStart: 15-34-5317Lysyxco ScreeningTobacco ScreeningProJoint Township District [facility] Hospitalca Health SystemStart: 03-26-2025 End: 46-39-1245Lnzcznz encounter ksixfnjcz41/12/2025 2:40 PM EST Routine [facility] [place] [address] [facility] [place], [id number] Jack Woods DO [address] [place] [address] NOMS [facility] OBGYNStart: 03-12-2025 End: 09-62-7997Hfcbsbj encounter procedureNOMS Sachin Waltersment on above: ArrivedStart: 02-27-2025 End: 38-13-1819Miajxeloxsmd / ancillary services iezuyudbxg59/16/2025 11:00 AM EDT Ancillary Procedure [facility] [address] [facility] [place] [address] NOMS [place] OBGYNStart: 02-25-2025 End: 24-93-1838YO.doppler Lower extremity vein - rightVascular US lower extremity venous duplex right Imaging Routine Pain of right lower extremity Expected: 02/25/2025, Expires: 02/25/2026[facility] Work Phone: comment on above:Expected: 02/25/2025, Expires: 02/25/2026Start: 02-25-2025 End: 61-27-5649Hibswzq encounter procedureNOMS [place] OBGYNComment on above: ArrivedStart: 02-19-2025 End: 08-26-3519Qecxkemaqszv / ancillary services uhesxfvdkh06/08/2025 11:30 AM EDT Ancillary Procedure [facility] [address] [place] [address] [place] [address] NOMS [place] OBGYNStart: 02-11-2025 End: 33-18-7982GV for pregnancyUS OB follow up transabdominal approach Imaging Routine size inconsistent with dates ([facility]) Expected: 02/11/2025, Expires: 06/13/2025[facility] Work Phone: comment on above:Expected: 02/11/2025, Expires: 06/13/2025Start: 02-11-2025 End: 81-39-6752Ihuwsqp encounter procedureNOMS [place] OBGYNComment on above: ArrivedStart: 01-28-2025 End: 77-42-5687Pjublftrzjs of glucose 3 hours after glucose challenge for glucose tolerance testGlucose tolerance, 3 hours Lab Routine Elevated glucose tolerance test Expected: 01/28/2025 (Approximate), Expires: 01/28/2026[facility] Work Phone: comment on above:Expected: 01/28/2025 (Approximate), Expires: 01/28/2026Start: 01-28-2025 End: 88-15-9666Txwivrd encounter procedureNOMS [place] OBGYNComment on above: ArrivedStart: 01-21-2025 End: 76-91-0106Cqhwnhm encounter emlrnyryz57/09/2025 8:40 AM EDT Office Visit [facility] [address] [facility] [place] [phone] Jack Woods, DO [address] [place] [address] NOMS [facility] OBGYNStart: 01-16-2025 End: 64-72-3215Rncavcc encounter onshhyakx78/04/2025 9:20 AM EDT Office Visit [facility] [address] [facility] [place] [address] Jack Woods, DO [address] [place] [address] ArrivedNOMS Sachin OBGYNComment on above:ArrivedStart: 99-23-9393Cnryyfory vaccinationInfluenza VaccineBrown Memorial Hospital SystemStart: 01-07-2025 End: lead ECGECG 12 lead unit performed ECG Routine Palpitations Expected: 01/07/2025 (Approximate), Expires: 01/07/2026[facility] Work Phone: comment on above:Expected: 01/07/2025 (Approximate), Expires: 01/07/2026Start: 01-07-2025 End: 97-30-5656Jcxlngphwdypfd 2D completeEchocardiogram 2D complete Echocardiography Routine Palpitations Tachycardia Expected: 01/07/2025 (A pproximate), Expires: 01/07/2027[facility] HealthcareComment on above:Expected: 01/07/2025 (Approximate), Expires: 01/07/2027Start: 01-07-2025 End: 10-60-2299Dfufpji encounter dwmwjxnha61/26/2025 1:50 PM EDT Office Visit [facility] [address] [facility] [place] [phone] Jayla Art PA [address] [place] [address] ArrivedRIMMA [place] OBGYNComment on above:ArrivedStart: 12-31-2024 End: 90-71-7532Mjrqovv encounter htdwptole80/19/2025 2:10 PM EDT Routine [facility] [address] [facility] [address] [place], [id number] Jack Woods, [address] [facility] [address] [place] [address] ArrivedRIMMA [place] OBGYNComment on above:ArrivedStart: 12-31-2024 End: 92-67-2728RGJ panel - Blood by Automated countCBC Lab Routine Diabetes mellitus screening Expected: 12/31/2024 (Approximate), Expires: 12/31/2025[facility] Work Phone: comment on above:Expected: 12/31/2024 (Approximate), Expires: 12/31/2025Start: 12-31-2024 End: 32-06-1506Jcvlrrwqoyi of glucose 1 hour after glucose challenge for glucose tolerance testGlucose tolerance, 1 hour Lab Routine Diabetes mellitus screening Expected: 12/31/2024 (Approximate), Expires: 12/31/2025[facility] HealthcareComment on above:Expected: 12/31/2024 (Approximate), Expires: 12/31/2025Start: 12-10-2024 End: 88-78-8967Wkriucu encounter kzavkqdxt28/29/2025 1:30 PM EDT Appointment Maternal Medicine [place] [address] [place] [address] [facility]: 12-03-2024 End: 45-94-1305Jbebcrb encounter procedureNO [facility] OBComment on above:Second trimester ([facility])Start: 11-12-2024 End: 62-50-9984UB Pelvis WO contrastMR pelvis without contrast Imaging Routine Adnexal mass 16 weeks gestation of Expected: 11/12/2024, Expires: 11/12/2025[facility] Work Phone: comment on above:Expected: 11/12/2024, Expires: 11/12/2025Start: 11-12-2024 End: 04-53-2772EF MFM with or without consultUS MFM with or without consult Imaging Routine Adnexal mass Uterine fibroids affecting insecond trimester Localized swelling of right lower extremity Expected: 11/12/2024, Expires: 11/12/2025[facility] Work Phone: comment on above:Expected: 11/12/2024, Expires: 11/12/2025Start: 11-12-2024 End: 94-97-2202GG.doppler Lower extremity vein - rightVas venous duplex insufficiency lwr rt Vascular Ultrasound Routine Localized swelling of right lower extremity Expected: 11/12/2024, Expires: 11/12/2025[facility] Comment on above:Expected: 11/12/2024, Expires: 11/12/2025Start: 11-05-2024 End: 29-07-3706Qhoag fetoprotein, maternalAlpha fetoprotein, maternal Lab Routine Second trimester ([facility]) 15 weeks gestation of ([facility]) Expected: 11/05/2024 (Approximate), Expires: 05/07/2025[facility] Comment on above:Expected: 11/05/2024 (Approximate), Expires: 05/07/2025Start: 11-05-2024 End: 30-38-4047Goiooqo encounter procedureNOMS BCP OBComment on above:Arrived Start: 16-74-6611EktemedtlAshtabula County Medical Centertart: 10-08-2024 End: 73-13-1597Uyinyij encounter procedureNOMS BCP OBComment on above:Arrived Start: 09-19-2024 End: 23-38-5389PGF/RhABO/Rh Lab Routine Missed menses , unspecified gestational age Expected: 09/19/2024 (Approximate), Expires: 09/19/2025[facility] HealthcareComment on above:Expected: 09/19/2024 (Approximate), Expires: 09/19/2025Start: 09-19-2024 End: 97-84-4148Jrmqh type and Indirect antibody screen panel - BloodType and screen Lab Routine Missed menses , unspecified gestational age Expected: 09/19/2024 (Approximate), Expires: 09/19/2025[facility] Work Phone: comment on above:Expected: 09/19/2024 (Approximate), Expires: 09/19/2025Start: 09-19-2024 End: 43-14-2238Yzlsn of abuse panel - Urine by Screen methodRapid drug screen, urine Lab Routine , unspecified gestational age Encounter for supervision of normal first in first trimester Expected: 09/19/2024 (Approximate), Expires: 09/19/2025[facility] HealthcareComment on above:Expected: 09/19/2024 (Approximate), Expires: 09/19/2025Start: 09-19-2024 End: 67-93-7860okremzolpl50/08/2025 1:30 PM EDT Initial [facility] [place] [address] BRQD BCP OBStart: 09-19-2024 End: 03-15-0529Cutghmvtcnkc / ancillary services pidkblxaom08/08/2025 1:00 PM EDT Ancillary Procedure [facility] [place] [address] QOXV BCP OBStart: 08-28-2024 End: 83-03-9058Okyisnpilayw / ancillary services tqogkpovom54/16/2025 8:30 AM EDT Ancillary Procedure [facility] [place] [address] IYQC BCP OBStart: 04-10-2024 End: 85-28-2336Ioglpqymespbd hormone (AMH)Antimullerian hormone (AMH) Lab Routine Hormone disorder Expected: 04/10/2024 (Approximate), Expires: 04/10/2025 [facility] Work Phone: comment on above:Expected: 04/10/2024 (Approximate), Expires: 04/10/2025Start: 04-10-2024 End: 10-80-7843Uoioeqw encounter wbgtpiszw24/27/2024 11:10 AM EST Office Visit [facility] OB [address] [facility] [facility] [place] [phone] Jack Woods, DO [address] [place] [address] ArrivedPROVIDENCE HOL[facility] OBComment on above:ArrivedStart: 2024 End: 37-21-1464Kgyvwjq encounter /24/2024 1:20 PM EDT Office Visit [facility] OB [address] [facility] [place] [address] Jack Woods, DO [address] [place] [address] NOMS [facility] OBStart: 78-17-8926YYgV,Tdap and Td Vaccines (2 - Td or Tdap)DTaP,Tdap and Td Vaccines (2 - Td or Tdap)[facility]: 67-99-2345Utjkpgrjo for malignant neoplasm of cervixPap Smear [facility]: 20-43-9584Dqryymeqk vaccinationFlu vaccine (#1) [facility]: 16-26-3438Fluip BMI Follow Up PlanAdult BMI Follow Up PlanAtrium Healthtart: 85-88-7372Gjqxusfrds ScreeningDepression ScreeningCleveland Clinic Avon HospitalBacteria identified in Urine by CultureUrine culture Microbiology Routine Missed menses Ordered: 09/19/2024[facility] Comment on above:Ordered: 5CBC W Auto Differential panel - BloodCBC and differential Lab Routine Missed menses , unspecified gestational age Ordered: 09/19/2024[facility] HealthcareComment on above:Ordered: 5CBC W Auto Differential panel - BloodCBC and differential Lab Routine Third trimester ([facility]) Ordered: 03/12/2025[facility] Work Phone: comment on above:Ordered: 03/12/2025HLAMYDIA TRACHOMATIS (GENITO/STI)CHLAMYDIA TRACHOMATIS (GENITO/STI) Lab Routine STD exposure Ordered: 11/05/2024[facility] HealthcareComment on above:Ordered: 11/05/2024 Cytology Cervical or vaginal smear or scraping studyPap Smear Pathology and Cytology Routine Well woman exam with routine gynecological exam Ordered: [facility] HealthcareComment on above:Ordered: 11/05/2024Hemoglobin A1c/Hemoglobin.total in BloodHemoglobin A1c Lab Routine Missed menses , unspecified gestational age Ordered: 09/19/2024[facility] HealthcareComment on above: Ordered: 09/19/2024Hepatitis B virus surface Ag [Presence] in Serum or Plasma by ImmunoassayHepatitis B surface antigen Lab Routine Missed menses , unspecified gestational age Ordered: 09/19/2024[facility] HealthcareComment on above: Ordered: 09/19/2024Hepatitis C virus Ab [Presence] in Serum or Plasma by ImmunoassayHepatitis C antibody Lab Routine Missed menses , unspecified gestational age Ordered: 09/19/2024[facility] HealthcareComment on above:Ordered: 09/19/2024HIV-1/HIV-2 antigen/antibody combination immunoassayHIV-1 and HIV-2 antibodies Lab Routine Missed menses , unspecified gestational age Ordered: 09/19/2024[facility] HealthcareComment on above:Ordered: 09/19/2024Neisseria gonorrhoeae DNA [Presence] in Unspecified specimen by DARIUS with probe detection Neisseria gonorrhea DNA probe, direct Lab Routine STD exposure Ordered: 11/05/2024[facility] HealthcareComment on above:Ordered: 11/05/2024Progesterone [Mass/volume] in Serum or PlasmaGreen Cross HospitalReagin Ab [Presence] in Serum by RPRRPR Lab Routine Missed menses , unspecified gestational age Ordered: 09/19/2024[facility] HealthcareComment on above:Ordered: 09/19/2024Rubella antibody, IgGRubella antibody, IgG Lab Routine Missed menses , unspecified gestational age Ordered: 09/19/2024[facility] HealthcareComment on above:Ordered: 09/19/2024SURESWAB(R) ADVANCED VAGINITIS PLUS, TMASURESWAB(R) ADVANCED VAGINITIS PLUS, TMA Pathology and Cytology Routine Vaginal discharge Ordered: 11/05/2024[facility] Work Phone: comment on above:Ordered: 11/05/2024 Immunizations Immunization DateImmunizationNotesCare IuyqlmbtWthhjqhk82-77-0655duhaqwgxs virus vaccine, unspecified formulationGuadalupe Peres MD Work Phone: [facility] Payers DatePayer CategoryPayerPolicy [id number] - PPOANTHEM Member Subscriber Plan / Payer (Effective 2024-Present) Name: Daphney Al Relation to Subscriber: Self Name: Daphney Al PayerID: [id number] (NA) Type: Not on file Address: [address] [place] [id number] [facility] 1.2.840.050213.1.13.693.2.7.9.722571.52029[id number] 38-00-7032Trjngzc Health [id number] 2.16.840.3.828605.1941-20-2024 Ciww-bmsr9e72928-6q49jqtl9h19156-3b67-6n38-7x26-4u76004zo56x87-99-1632Vbombbr Health Insurance 1.2.840.705976.1.13.693.2.7.3.013330.621[id number] UnknownBCBS BCBS - [place] PPO xxxxxxxxxxxx 2014-Present [address] [place], [place] [address]jljsncwetttm 1.2.840.330258.1.13.239.2.7.3.250808.77868-41-4279Uqzpekp [id number] 2.16840.1.878429.3.57[id number] 2.16840.1.709017.3.57[id number] 2.16840.1.325102.3.579.[id number] 2.16840.1.008798.3.57[id number] 2.16840.1.076109.3.579.[id number] 2.16840.1.843633.3.57[id number] 2.16840.1.234608.3.579.2.0[id number] 2.16840.1.542328.3.57[id number] 2.16840.1.512327.3.579.2.235290-69-7411Giqbnal34216330 2.16840.1.948226.3.579.2.697298-66-8501Vevbtqf52250454 2.16840.1.218904.3.579.2.441604-15-5221Gkoclts35917430 2.16840.1.816134.3.579.2.665679-27-1634Lxkqeai84263268 2..1.856166.3.579.2.721280-24-4107Kvosdeg83578708 2..1.249447.3.579.2.941280-59-4372Knxgmhb9639911 2..1.610524.3.579.2.785343-07-8178Yexgxgl3986578 2..1.723984.3.579.2.473000-75-8523Znyjpbc2638735 2..1.562053.3.579.2.707232-21-9084Wxesrrl5702742 2..1.646441.3.579.2.844771-90-6241Aneohxh6239109 2..1.990271.3.579.2.3609ManucoyRRK543727346299 58h2o551-x14n-41dl-fw50-4a45p298o7eyMsaqflcTwrvor /[id number] 93we7x21-3858-4aj0-u83w-[id number] ..1.281834.3.579.2.996Rdwhduv06869314 2..1.483850.3.579.2.531 Kmfrofx28299256 ..1.129354.3.579.2.031Bglxquu30133316 2..1.972005.3.579.2.163Tuekics46661807 2..1.105855.3.579.2.531 Zsrlscb95021019 2..1.245627.3.579.2.650Fomnxwm98456908 2..1.654308.3.579.2.446Tuojvlb42191437 2.16.840.1.737742.3.579.2.531 Yfpiufz94785614 2.16.840.1.477815.3.579.2.531 Social History DateTypeDetailFacilityStart: 02-01-2019 End: 05-12-9783Rmldrjr smoking status NHISNever smokerAshtabula County Medical Centertart: 02-01-2019 End: 95-99-4901Ybmzkna intakeNot [facility]: 2000 Sex Assigned At BirthNot on [facility]: 50-76-7255Bfa Assigned At BirthFeWexner Medical Centertart: 2024 End: 27-65-8563Zudjlhenr beverage intakeLifetime non-drinker (finding)[facility] HealthcareStart: 04-28-2023 End: 70-20-4004Cohfoci of Social functionNOUT HealthcareStart: 55-79-3459Miacwps CommentCaffeine intake: 3-4 cups per dayPR[facility]ILDREN'S [facility] HealthcareStart: 08-06-2024 PregnancyNOUT HealthcareStart: 94-12-1231ZyzKqjyfx (finding)[facility] Medical Centertart: 98-57-2877Yuvrrc the past 12 months we worried whether our food would run out before we got money to buy more.Never [facility] Clinical Notes 03-21-2023 to 03-12-2025 Note Date & EqqcDhxvCmwdxryh42-44-1243 History of Present illness Narrative* Hazel Romero, [...] HOURS NEEDED FOR NAUSEA AND VOMITING Vit w/Wf-Iosfowmlr-YH (PNV PO) ALLERGIES Allergies Allergen Reactions Cephalexin [...] nursing note reviewed. Exam conducted with a packaging coordinator present. Vitals: Estimated body mass index is 30.55 kg/m as calculated from the following: Height as of 02/06/24: 5' 6 . Weight as of this encounter: 189 lb 4 oz. BP: 102/72 Patient's last menstrual period was 07/23/2024. Assessment/Plan ICD-10-CM 1. Third trimester ([facility]) Z34.93 POCT urinalysis dipstick manually resulted 2. 33 weeks gestation of ([facility]) Z3A.33 Return OB: Patient presents today for [...] of: Hazel Romero NP documented in this encounterResearch Medical Center-Brookside CampusQqsptybmms90-01-9990 History of Present illness Narrative* Lisa Prasad [...] 6 hours as needed for nausea. Vit w/Vd-Ijcguowcc-JL (PNV PO) ALLERGIES Allergies[1] PROBLEMS Active Ambulatory Problems Diagnosis Date Noted No Active Ambulatory Problems Resolved Ambulatory Problems Diagnosis Date Noted No Resolved Ambulatory Problems Past Medical History: Diagnosis Date Acne vulgaris Endometriosis History of medical problems Miscarriage ([facility]) Ovarian cyst HISTORY PAST MEDICAL HISTORY SOCIAL [...] nursing note reviewed. Exam conducted with a packaging coordinator present. Vitals: Estimated body mass index is 30.67 kg/m as calculated from the following: Height as of 02/06/24: 5' 6 . Weight as of this encounter: 190 lb. BP: 120/70 Patient's last menstrual period was 07/23/2024. ASSESSMENT & PLAN ICD-10-CM 1. Third trimester ([facility]) Z34.93 POCT urinalysis dipstick manually resulted 2. 31 weeks gestation of ([facility]) Z3A.31 3. POTS (postural orthostatic tachycardia [...] Lisa Prasad LPN on behalf of: Jack oWods DO [1] Allergies Allergen Reactions Cephalexin Nausea [...] Diagnostic lap-endometriosis TONSILLECTOMY 11/03/2016 documented in this encounterResearch Medical Center-Brookside CampusGennjyvwyp64-94-7713 History of Present illness Narrative* Hazel Romero [...] 6 hours as needed for nausea. Vit w/Tp-Kmjbujxun-CP (PNV PO) ALLERGIES Allergies Allergen Reactions Cephalexin [...] History of medical problems Miscarriage ([facility]) Ovarian cyst HISTORY PAST MEDICAL HISTORY SOCIAL HISTORY Past Medical History: Diagnosis Date Acne vulgaris Endometriosis History of medical problems recurrent strep Miscarriage ([facility]) Ovarian cyst Social History Tobacco Use Smoking [...] nursing note reviewed. Exam conducted with a packaging coordinator present. Vitals: Estimated body mass index is 30.18 kg/m as calculated from the following: Height as of 02/06/24: 5' 6 . Weight as of this encounter: 187 lb. BP: 118/72 Patient's last menstrual period was 07/23/2024. ASSESSMENT & PLAN ICD-10-CM 1. Third trimester ([facility]) Z34.93 POCT urinalysis dipstick manually resulted 2. 29 weeks gestation of ([facility]) Z3A.29 Return OB: Patient presents today for a routine obstetrics appointment. Patient is currently 29w0d . Patient states she is doing well but has complaints of being tired due to current . Patient has verbalizes frequent movement. labor precautions was discussed/given and patient was instructed to perform kick counts three times a day. Patient has been evaluated by [facility] Cardiology with a history of syncopal [...] of: Hazel Romero NP documented in this encounterResearch Medical Center-Brookside CampusMfbxvxkmug78-66-1649 History of Present illness Narrative* REKHA Ott [...] 6 hours as needed for nausea. Vit w/Ow-Buxgketud-PW (PNV PO) ALLERGIES Allergies Allergen Reactions Cephalexin [...] ASSESSMENT & PLAN ICD-10-CM 1. Second trimester ([facility]) Z34.92 POCT urinalysis dipstick manually resulted 2. 27 weeks gestation of ([facility]) Z3A.27 3. Elevated glucose tolerance test R73.09 [...] behalf of: REKHA Ott documented in this encounterResearch Medical Center-Brookside CampusZtgcjnhgtq82-27-3814 [facility] Reason for [...] negative for PE or any abnormalities. Her boat joiner helper ordered echo which came back normal. A [...] she cannot go b (more content not included)...[facility]09-04-2025 History of Present illness Narrative* Kelley Sepulveda, GUEST RELATIONS EXECUTIVE - 01/16/2025 9:20 AM EDT Reason for Appointment: Patient ID: Daphney Al is a 24 y.o. female who presents for Routine Visit Patient presents today for Return OB appointment. MEDICATIONS Current Outpatient Medications Medication Instructions aspirin 81 MG oral suspension ondansetron (ZOFRAN) 4 mg, Oral, Every 6 hours PRN, Take 1 tablet by mouth every 6 hours as needed for nausea. Vit w/Zf-Acamlskja-EX (PNV PO) ALLERGIES Allergies Allergen Reactions Cephalexin [...] nursing note reviewed. Exam conducted with a packaging coordinator present. Vitals: Estimated body mass index is 29.67 kg/m as calculated from the following: Height as of 02/06/24: 5' 6 . Weight as of this encounter: 183 lb 12.8 oz. BP: 120/78 Patient's last menstrual period was 07/23/2024. ASSESSMENT & PLAN ICD-10-CM 1. 25 weeks gestation of ([facility]) Z3A.25 POCT urinalysis dipstick manually resulted 2. Second trimester ([facility]) Z34.92 POCT urinalysis dipstick manually resulted 3. Palpitations R00.2 4. Syncope, unspecified syncope type R55 5. Gastroesophageal reflux in ([facility]) O99.619 K21.9 Patient presents today for a routine obstetrics appointment. Patient is currently 25w2d with a Estimated Date of Delivery: 04/29/25. Patient had spells where she passed out. Patient to have Cardiac Consult hopefully within the next week. Referral will be made today to Cardiology at [facility]. Patient has a EKG scheduled for Monday at 1pm. Patient voiced that she sees stars and then gets dizzy.Advised to increase protein and to remain off work until cleared by Cardiology. Patient to return to clinic 1 week. Documented by Kelley Sepulveda LPN on behalf of: Jack Woods DO documented in this encounterResearch Medical Center-Brookside CampusRlqcctquda24-16-2486 History of Present illness Narrative* REKHA Ott [...] 6 hours as needed for nausea. Vit w/Vb-Xsgputdhe-DA (PNV PO) pyridoxine (VITAMIN B-6) 25 mg, [...] History of medical problems Miscarriage ([facility]) Ovarian cyst HISTORY PAST MEDICAL HISTORY SOCIAL [...] ASSESSMENT & PLAN ICD-10-CM 1. Second trimester ([facility]) Z34.92 POCT urinalysis dipstick manually resulted iron polysaccharides (ProFe) 391.3 (180 Fe) MG capsule 2. 23 weeks gestation of ([facility]) Z3A.23 3. Palpitations R00.2 ECG 12 lead [...] behalf of: REKHA Ott documented in this encounterResearch Medical Center-Brookside CampusDezbymnfed69-22-3522 History of Present illness Narrative* Lisa Prasad, GUEST RELATIONS EXECUTIVE - 12/31/2024 2:10 PM EDT Reason for [...] 6 hours as needed for nausea. Vit w/Du-Chzjtsbmc-WO (PNV PO) pyridoxine (VITAMIN B-6) 25 mg, [...] nursing note reviewed. Exam conducted with a packaging coordinator present. Vitals: Estimated body mass index is 29.83 kg/m as calculated from the following: Height as of 02/06/24: 5' 6 . Weight as of this encounter: 184 lb 12.8 oz. BP: 112/62 Patient's last menstrual period was 07/23/2024. ASSESSMENT & PLAN ICD-10-CM 1. Second trimester ([facility]) Z34.92 POCT urinalysis dipstick manually resulted 2. 23 weeks gestation of ([facility]) Z3A.23 POCT urinalysis dipstick manually resulted 3. [...] of: Jack Woods DO documented in this encounterResearch Medical Center-Brookside CampusRgjwfhfyxd92-71-7217 History of Present illness Narrative* REKHA Ott [...] 6 hours as needed for nausea. Vit w/My-Dwoibfasr-EC (PNV PO) pyridoxine (VITAMIN B-6) 25 mg, [...] ASSESSMENT & PLAN ICD-10-CM 1. Second trimester ([facility]) Z34.92 POCT urinalysis dipstick manually resulted 2. 19 weeks gestation of ([facility]) Z3A.19 Return OB: Patient presents today for [...] behalf of: REKHA Ott documented in this encounterResearch Medical Center-Brookside CampusQgxngeqkyx26-22-5682 History of Present illness Narrative* Guadalupe Peres [...] nausea or vomiting., Disp: , Rfl: PNV 59-fton-udgkzthdsswe-dha 29 mg iron-1 mg -350 mg comb [...] (2019) Romero's maternal- medicine :principles and practice [place] [place], [place] : [employer] Sonographic diagnosis of ovarian torsion: accuracy and predictive factors. Monica R, Jeff N, Zion N, Sohan-Chelsea G, Bright I. J Ultrasound Med. 2011 Jan;30(9):1205-10. Adnexal masses in : An updated review. Olivia AM, Dorie I, Adelaide DOMÍNGUEZ, Nory H, Alexi AbernathyTanja VT. [facility] J Med. 2017 Feb-Apr;7(4):153-157. doi: 10.4103/aj.AJM_[id number]_17. PMID: [id number] Uterine fibroids, affecting I reviewed the uterine [...] and evaluation of bilateral adnexal masses, through [facility] Recommend repeat growth ultrasound in the 3rd trimester, through primary OB, given known uterine fibroid Anticipate term vaginal delivery at local hospital Precautions regarding shortness of breath and chest pain were reviewed with the patient today DISPOSITION: At this point the patient is in complete care of her boat joiner helper. Thank you for allowing me to participate in the care of Daphney Al. If there any questions please do not hesitate to contact us. Guadalupe Peres MD Maternal- Medicine [place] [id number] [facility] [address] [place] [address] This document was created with [employer] technology. Though I make every effort to review the dictation as it is transcribed, on occasion the spoken word can be misinterpreted by the technology leading to inappropriate words, phrases, or sentences. This note is addressed to the requesting provider as a consultation for clinical guidance. Specificmedical abbreviations are occasionally used and those are generally approved by the [place]?Board of?Obstetrics and?Gynecology?as well as?Graham chan abbreviations. The above plan of care was based solely on the diagnoses for which a consultation was requested. ?More frequent testing may be indicated based on her other medical/obstetrical conditions. The management of other or medical conditions is beyond the scope of requested consultation and will c mick to be followed by the primary boat joiner helper or primary care provider. Note to patient: [...] risk Have you been seen here at [facility] in a previous ? No Recent ER visits or hospitalizations? No Bring blood sugar log or meter with you today? (Please bring them with you for every visit at [facility]) N/A Flu vaccine (Mar-July)? N/A Any concerns that you would like me to mention to the provider today? R calf bruising, +Homans sign, wants to make sure about cysts, feeling nervous about cervix being short, has never been this far along. Right calf = 36.4cm, Left calf = 39.0cm [facility] History of Present illness Narrative* Lisa [...] 6 hours as needed for nausea. Vit w/Ww-Ywnzwotbl-NU (PNV PO) pyridoxine (VITAMIN B-6) 25 mg, [...] nursing note reviewed. Exam conducted with a packaging coordinator present. Vitals: Estimated body mass index is 27.02 kg/m as calculated from the following: Height as of 02/06/24: 5' 6 . Weight as of this encounter: 167 lb 6.4 oz. BP: 106/68 Patient's last menstrual period was 07/23/2024. ASSESSMENT & PLAN ICD-10-CM 1. Well woman exam with routine gynecological exam Z01.419 Pap Smear 2. Second trimester ([facility]) Z34.92 POCT urinalysis dipstick manually resulted Alpha fetoprotein, maternal Alpha fetoprotein, maternal 3. 15 weeks gestation of ([facility]) Z3A.15 POCT urinalysis dipstick manually resulted Alpha fetoprotein, maternal Alpha fetoprotein, maternal 4. Vaginal discharge N89.8 SURESWAB(R) ADVANCED VAGINITIS PLUS, TMA 5. STD exposure Z20.2 CHLAMYDIA TRACHOMATIS (GENITO/STI) Neisseria gonorrhea DNA probe, direct Return OB/Annual Exam: Patient presents today for a annual exam/routine obstetrics appointment. Patient is currently [id number]. Patient states she is doing well but [...] of: Jack Woods DO documented in this encounterResearch [facility] Center-[facility] [id number] History of Present illness Narrative* Lisa Prasad [...] 6 hours as needed for nausea. Vit w/Uk-Pnjfmdgqt-WA (PNV PO) pyridoxine (VITAMIN B-6) 25 mg, [...] nursing note reviewed. Exam conducted with a packaging coordinator present. Vitals: Estimated body mass index is [...] or undercooked meat, and stay away from [facility]. Patient has been consulted regarding any [...] of: Jack Woods DO documented in this encounterResearch Medical Center-Brookside [id number] History of Present illness Narrative* Manjula Elias [...] the following prescription(s): aspirin, omeprazole, ondansetron, vit w/om-dwndnpznl-cv, and progesterone. Medical History: Active Ambulatory Problems [...] or undercooked meat, and stay away from [facility]. Patient has also been advised to [...] by: Manjula Elias MA documented in this encounterResearch Medical Center-Brookside [id number] History of Present illness Narrative* Lisa Prasad, BRIANA - 04/10/2024 11:10 AM EST Reason for Appointment: Patient ID: Daphney Al is a 24 y.o. female who presents for Infertility Patient presents today for Fertility Follow Up appointment. MEDICATIONS Current Outpatient Medications Medication Instructions aspirin 81 MG oral suspension Vit w/Ly-Glhidizbn-AV (PNV PO) ALLERGIES Allergies Allergen Reactions Cephalexin [...] nursing note reviewed. Exam conducted with a packaging coordinator present. Vitals: Estimated body mass index is [...] Pt voiced understanding. Discussed LAST referral towards [place]. Documented by Lisa Prasad LPN on behalf of: Jack Woods DO documented in this encounterResearch Medical Center-Brookside [id number] History of Present illness Narrative* Lisa Prasad LPN - 2024 1:20 PM EDT Reason for Appointment: Patient ID: Daphney Al is a 23 y.o. female who presents for Infertility Patient presents today for Fertility Follow Up appointment. MEDICATIONS Current Outpatient Medications Medication Instructions aspirin 81 MG oral suspension Vit w/Ch-Csfhmxaxl-MW (PNV PO) ALLERGIES Allergies Allergen Reactions Cephalexin [...] nursing note reviewed. Exam conducted with a packaging coordinator present. Vitals: Estimated body mass index is [...] of: Jack Woods DO documented in this encounterResearch Medical Center-Brookside [id number] Evaluation note* Encounter Date Diagnosis Assessment Notes [...] treatment plan. Patient left in stable condition [facility] Other Evaluation noteNo assessment information available [facility] Work Phone: Evaluation note* Diagnosis Encounter for infertility Hormone disorder Unspecified endocrine disorder documented [facility] encounter [facility]* Diagnosis Female infertility Female infertility of unspecified origin History of miscarriage Personal history of other genital system and obstetric disorders [facility]* Diagnosis Missed menses , unspecified gestational age Encounter for supervision of normal first in first trimester Gastroesophageal reflux in Nausea and vomiting during documented in this encounter [facility]* Diagnosis 11 weeks gestation of First trimester state, incidental Other constipation Gastroesophageal reflux in documented in this encounter [facility]* Diagnosis Adnexal mass- Primary Other specified symptom associated with female genital organs 16 weeks gestation of Uterine fibroids affecting in second trimester Localized swelling of right lower extremity [facility] Diagnosis Adnexal mass- Primary Other specified symptom associated with female genital organs Uterine fibroids affecting in second trimester Localized swelling of right lower extremity [facility]* Diagnosis Well woman exam with routine gynecological exam Routine gynecological examination Second trimester ([facility]) state, incidental 15 weeks gestation of ([facility]) Vaginal discharge Leukorrhea, not specified as infective STD exposure documented [facility]* Diagnosis Second trimester ([facility]) state, incidental 19 weeks gestation of ([facility]) documented in this encounter [facility]* Diagnosis Second trimester ([facility]) state, [...] Description Date Surgical History tonsillectomy Surgical Historylaparoscopy [facility] Other InstructionsNot on filedocumented in this encounter [facility] SystemInstructionsNot on filedocumented in this encounter [facility] SystemReason for referral (narrative)No reason for referral information availableFirelands [facility] Work Phone: Summary Purpose Family History Relationship Condition Age at Onset Recorded Date/T juliette father Congestive heart failure Unknown Advance Directives TypeDate RecordedPatient RepresentativeExplanationAdvance Directives and Living WillPower of Mis Director Advance Directive Response Recorded Date/ Time Advance Directives No August 08 7:47am Advance Directive Response Recorded Date/ Time Advance Directives No August 08 8:47am Discharge Instructions * Instructions* Keyla Leyva MD - 02/01/2019 Follow-up with MANA[employer] * Attachments The following attachments cannot be sent through Care Everywhere. * Abdominal Pain (Dominican) * Appendicitis (Dominican) documented in this encounter Assessments Diagnosis Abdominal [...] content) DATE CREATED AUTHOR 02/01/2019 [facility] DATE CREATED AUTHOR AUTHOR'S ORGANIZ ATION 05/05/2023 [facility] DATE CREATED AUTHOR AUTHOR'S ORGANIZ ATION 11/13/2024 [facility] DATE CREATED AUTHOR AUTHOR'S ORGANIZ ATION 11/13/2024 [facility] DATE CREATED AUTHOR AUTHOR'S ORGANIZ ATION 12/12/[address] [facility] DATE CREATED AUTHOR AUTHOR'S ORGANIZ ATION 01/26/2025 [facility] DATE CREATED AUTHOR AUTHOR'S ORGANIZ ATION 03/14/2025 [facility] EPIC Reason for Visit (unrecogniz ed section and content) ReasonCommentsRoutine VisitSpecialtyDiagnoses / ProceduresReferred By ContactReferred To ContactObstetrics and Gynecology Diagnoses Enlarged & Heterogeneous Bilateral Ovaries 2.3cm Isoechoic Left-sided Lesion Possible Endometrioma Procedures [place] [facility] [address] [place] [address] Jack Woods, DO [address] [place] [address] [place] [address] Phone: tel: fax: Referral IDStatusReasonStart DateExpiration DateVisits RequestedVisits [id number] PainRLQ pain x 1 hourReasonCommentsInfertilityReasonCommentsAmenorrheaReasonCommentsEnlarged & Heterogeneous [...] Start: December 20, 2023 End: December 19orey Epggy , DOAttending ProviderActiveStart: December 20, 2023 End: [...] MemberRelationshipSpecialtyStart DateEnd Alberto Mayes MD [address] [place] [phone] PCP - Pzqgtyg50/19/23 Paloma Vazquez DO [address] [place] [address] Referring PhysicianObstetrics and Nmapwbjqnn77/12/23Te MemberRelationship SpecialtyStart DateEnd Alberto Mayes MD [address] [place] [phone] PCP [facility]05/02/23 Paloma Vazquez DO [address] [place] [address] Referring PhysicianObstetrics and Krncwuwptj16/12/23Te MemberRelationship SpecialtyStart DateEnd Date Alberto Mayes MD [address] [place] [phone] PCP Vqiguaz59/19/23 Paloma Vazquez DO [address] [place] [address] Referring PhysicianObstetrics and Rxeqxqcexf23/12/23Te MemberRelationship SpecialtyStart DateEnd Date Alberto Mayes MD [address] [place] [phone] PCP - Mezamhn58/19/23 Paloma Vazquez DO [address] [place] [address] Referring PhysicianObstetrics and Cfcjvdteyu38/12/23Te MemberRelationship SpecialtyStart DateEnd Date Alberto Mayes MD [address] [place], [place] [address] [place] [phone] PCP - Wibvdrg42/19/23 Paloma Vazquez DO [address] [place] [address] Referring PhysicianObstetrics and Tpcqbnqifj17/12/23Te MemberRelationship SpecialtyStart DateEnd Date Alberto Mayes MD [address] [place], [place] [address] [phone] PCP - Loreiym59/19/23 Paloma Vazquez DO [address] [place] [address] Referring PhysicianObstetrics and Klksjrqjyh65/12/23Te MemberRelationship SpecialtyStart DateEnd Date Alberto Mayes MD [address] [place] [address] PCP - Augpqbb82/19/23 Paloma Vazquez DO [address] [place] [address] Referring PhysicianObstetrics and Ffxpcxdgzw27/12/23Te MemberRelationship SpecialtyStart DateEnd Date Alberto Mayes MD [address] [place] [address] PCP - Ujfvbfo37/19/23 Paloma Vazquez DO [address] [place] [address] Referring PhysicianObstetrics and Uovbclvkvj67/12/23Team MemberRelationship SpecialtyStart DateEnd Date Alberto Mayes MD [address] [place] [address] PCP - Gokdvni20/19/23 Paloma Vazquez DO [address] [place] [address] Referring PhysicianObstetrics and Glduobombc42/12/23Team MemberRelationship SpecialtyStart DateEnd Date Alberto Mayes MD [address] [place] [address] PCP - Lbzrizw49/19/23 Paloma Vazquez DO [address] [place] [address] Referring PhysicianObstetrics and Jzwmkzhftq26/12/23 Team Status: Inactive Member Role Status Dates Jack Woods DO Attending Provider Active Start : November 05, 2024 End: November 05, 2024Team MemberRelationshipSpecialtyStart DateEnd Date Alberto Mayes MD [address] [place] [address] PCP - Rcquzgh08/19/23 Paloma Vazquez DO [address] [place] [address] Referring PhysicianObstetrics and Gfmyfetqgu35/12/23Team MemberRelationship SpecialtyStart DateEnd Date Alberto Mayes MD PCP - Ribxjzu36/23Team MemberRelationshipSpecialtyStart DateEnd Date Alberto Mayes MD PCP - Khxkpbh79/23Team MemberRelationshipSpecialtyStart DateEnd Date Alberto Mayes MD PCP - Xyclprv90/Team MemberRelationshipSpecialtyStart DateEnd Date Alberto Mayes MD PCP - Vmflmke50/23Team MemberRelationshipSpecialtyStart DateEnd Date Alberto Mayes MD PCP - Acplvjl93/23Team MemberRelationshipSpecialtyStart DateEnd Date Alberto Mayes MD PCP - Podedny52/23Team MemberRelationshipSpecialtyStart DateEnd Date Alberto Mayes MD PCP - Vhdzsbt55//23Team MemberRelationshipSpecialtyStart DateEnd Date Alberto Mayes MD PCP - Mdljlyf26//23Team MemberRelationshipSpecialtyStart DateEnd Date Alberto Mayes MD PCP - Hvcgbwo13/19/23Te MemberRelationshipSpecialtyStart DateEnd Date Alberto Mayes MD [facility] - [place] [address] MemberRelationshipSpecialtyStart DateEnd Date Alberto Mayes MD [facility] - [place] [phone] MemberRelationshipSpecialtyStart DateEnd Date Alberto Mayes MD [facility] - Svarbru89/19/23 Goals (unrecognized section and content) Goals may [...] BE BASED ON THE PRIMARY CLINICAL RECORDS. [facility] [employer] [facility]. provides no warranty or guarantee of the accuracy or completeness of information in this document.
== END 2025-04-02 15:04 | disposition home or self-care (01) ==
LOC: LAB 15:03
PROVIDERS: PCP Family Medicine; Visit Provider Obstetrics & Gynecology
DX: Z34.93 Encounter for supervision of normal pregnancy, unspecified, third trimester (principal); Z3A.36 36 weeks gestation of pregnancy
CPT/HCPCS: 87081

== ENCOUNTER 2025-04-22 05:24 | Inpatient (IN) | payer BC, SELFPAY ==
[2025-04-22] VITALS (48 sets, daily range): BP systolic 80–117; BP diastolic 39–79; PULSE 63–93; TEMP 36.3–36.8; O2SAT 96–100
--- OUTSIDE RECORDS SUMMARY | 2025-04-22 05:27 | XMS_ITS | CCD ---
Author Organization [facility] Care Team Providers Care Community Program Assistant Name Role Phone KEYLA LEYVA Attending Unavailable Unavailable Primary Care Provider Unavailcasimiro Anton Rina Unavailable MD Zachary Mayes Primary Care Provider DO Paloma Vazquez Attending Provider MD Zachary Mayes Primary Care Provider MD Jackie Reardon Attending Provider DO Jack Woods Attending Provider Paloma Vazquez DO Unavailable Gerber NO, Alberto Primary Care Provider Gerber [facility], [facility] Jack Woods DO Attending Provider [phone] Unavailable Primary Care Provider UnavailZachary Tracy [...] of OnsetReaction(s) Facility (20 sources)Cephalexin; Translations: [CEPHALEXIN]Drug Ylngflw28-92-7520[place], [place] (16 sources)predniSONE; Translations: [PREDNISONE]Drug Canrlfz50-83-4652Rtgrda And [place], [place] (20 sources)Ciprofloxacin; Translations: [CIPROFLOXACIN]Drug Ubrqtvo94-35-8068 Vomiting, GI intoleranceNOOzarks Medical Center (20 sources)PrednisonePropensity to adverse -12-4724Ohpqic And VomitingSaint [facility]'s Saint [facility] Hospital (1 source)CephalexinDrug Bzanjcp68-70-4867UqisemhzxBlanchard [facility] (1 source)predniSONEDrug Bzsaplf92-43-7845CxuutdaiyBlanchard Valley [facility] Medications Current Medications MedicationDrug Class(es)DatesSig (Normalized)Sig (Original)aspirin 81 mg oral tablet (20 sources)Platelet Aggregation Inhibitor, Nonsteroidal Anti-inflammatory Drug Start: 71-93-4540ccinnox 81 MG oral suspension 10/14/2023 Activeaspirin 81 mg chewable tablet Chew 1 tablet (81 mg total) and swallow in the morning. Active bisacodyl 10 mg rectal suppository (2 sources)Stimulant LaxativeStart: 10-08-2024 End: 75-91-4508ywcbkirie (Dulcolax) 10 MG suppository Indications: Other constipation Insert 1 suppository (10 mg)into the rectum Daily for 4 days 4 suppository 10/08/2024 10/12/2024 Activedocusate sodium 100 mg oral capsule (20 sources) End: 27-50-9017ylhd 1 capsule by mouth once dailydocusate sodium (Colace) 100 MG capsule Take 100 mg by mouth Daily 01/16/2025 DiscontinuedDoxylamine Succinate, Sleep, (UNISOM PO) (20 sources) End: 25-22-8298Dmfscshkmu Succinate, Sleep, (UNISOM PO) Take by mouth [...] mg rectal suppository (6 sources)CorticosteroidStart: 03-12-2025 End: 76-27-0151ywjoastowbtlrm (Anusol-HC) 25 MG suppository Indications: Hemorrhoids, unspecified hemorrhoid type Insert 1 suppository (25 mg) into the rectum in the morning and 1 suppository (25 mg) before bedtime. 6 suppository 03/12/2025 Activeibuprofen 600 mg oral tablet (10 sources)Nonsteroidal Anti-inflammatory DrugStart: 07-87-1060vbeb 1 tablet by mouth every six hours as needed for painomeprazole 40 mg delayed release oral capsule (20 sources)Proton Pump InhibitorStart: 10-08-2024 End: 33-80-8124hfcq 1 capsule by mouth before mealtimeomeprazole (PriLOSEC) [address] capsule Indications: Gastroesophageal Reflux Disease , Heartburn Take 1 capsule (40 mg) by mouth in the morning. Take before meals. Do not crush or chew. 30 capsule 3 10/08/2024 01/16/2025 DiscontinuedStart: 09-19-2024 End: 64-37-2686qhmb 1 capsule by mouth before mealtimeomeprazole (PriLOSEC) [address] capsule Indications: Gastroesophageal Reflux Disease , Heartburn Take 1 capsule (20 mg) by mouth in the morning. Take before meals. Do not crush or chew. 30 capsule 3 09/19/2024 10/08/2024 Discontinued (Reorder)ondansetron 4 mg oral tablet (20 sources)Serotonin-3 Receptor AntagonistStart: 71-87-7024cktv 1 tablet by mouth every six hours as needed for nausea and vomitingondansetron (Zofran) 4 MG tablet Indications: Gastroesophageal reflux in ([facility]) , Nausea and vomiting during ([facility]) TAKE 1 TABLET BY MOUTH EVERY 6 HOURS NEEDED FOR NAUSEAAND VOMITING 30 tablet 3 03/10/2025 ActiveStart: 91-15-4893gmwb 1 tablet by mouth every six hours as needed for nausea and nausea, then take 1 tablet by mouthevery six hours as needed for nausea and nauseaondansetron (Zofran) 4 MG tablet Indications: Gastroesophageal reflux in ([facility]) , Nausea and vomiting during ([facility]) Take 1 tablet (4 mg) by mouth every 6 (six) hours if needed for nausea or vomiting for up to 30 doses Take 1 tablet by mouth every 6 hours as needed for nausea. 30 tablet 3 11/20/2024 ActiveStart: 80-18-8196uqib 1 tablet by mouth every six hours as needed for nausea and nausea, then take 1 tablet by mouthevery six hours as needed for nausea and nauseaondansetron (Zofran) 4 MG tablet Indications: Gastroesophageal reflux in ([facility]) , Nausea and vomiting during ([facility]) Take 1 tablet (4 mg) by mouth [...] as needed for nausea or vomiting. ActivePNV 58-jrqj-isehltujcxju-dha 29 mg iron-1 mg -350 mg comb pack,tablet DR,capsule DR (2 sources)take 1 tablet by mouth in the morningPNV 82-unmj-bgbbzxmtustj-dha 29 mg iron-1 mg -350 mg comb pack,tablet DR,capsule DR Take 1 tablet by mouth in the morning. Activepolysaccharide iron complex 391 mg oral capsule (5 sources)Start: 01-07-2025 End: 56-08-3346bfnb 1 capsule by mouth once dailyiron polysaccharides (ProFe) 391.3 (180 Fe) MG capsule Indications: Second trimester ([facility]) Take 1 capsule (391.3 mg) by mouth Daily 30 capsule 6 01/07/2025 01/16/2025 DiscontinuedpredniSONE 20 mg oral tablet (1 source)Start: 20-88-3810pkoq 1 tablet by mouth every twelve hoursprednisone 20 MG 1 tablet Orally BID for 5 Mar, ActivePrenatal Vit w/Eq-Wdnnmohhs-XZ (PNV PO) (20 sources) Vit w/Df-Hrynrobym-MY (PNV PO) ActiveProgesterone 200 MG suppository (4 sources)Start: 09-05-2024 End: 04-13-7978Kmwegvuxwzko 200 MG suppository Indications: History of miscarriage Insert 200 mg into the vagina in the morning and 200 mg before bedtime. Do all this for 15 days. 30 suppository 3 09/05/2024 09/20/2024 Active Start: 02-14-2024 End: 75-65-6513Zindbjfmvltq 200 MG suppository Indications: History of miscarriage Insert 200 mg into the vagina in the morning and 200 mg before bedtime. 30 suppository 3 02/14/2024 03/15/2024 ActiveStart: 2024 End: 13-17-6302Tbblhwltdgkq 200 MG suppository Indications: History of miscarriage Insert 200 mg into the vagina at bedtime Insert suppository vaginally every night at bedtime until 12 weeks gestation 30 suppository 3 2024 03/07/2024 Activepyridoxine hydrochloride 25 mg oral tablet (20 sources) End: 49-26-9564lmem 1 tablet by mouth once dailypyridoxine (Vitamin B-6) 25 MG tablet Take 25 mg by mouth Daily 01/16/2025 DiscontinuedtraMADol hydrochloride 50 mg oral tablet (10 sources)Opioid AgonistStart: 82-25-5660koug 1 tablet by mouth every four to six hours as needed for pain Completed/Discontinued Medications MedicationDrug Class(es)DatesSig (Normalized)Sig (Original)acetaminophen 325 mg / HYDROcodone bitartrate 5 mg oral tablet (1 source)Opioid AgonistStart: 02-01-2019 End: 77-92-0661KFBYHlbbxdk-acetaminophen (NORCO) 5-325 MG per tablet 1 tablet progesterone 200 mg oral capsule (1 source)Progesterone End: 21-69-6470cvsh 1 capsule by mouth in the morningprogesterone (PROMETRIUM) 200 mg capsule Take 1 capsule (200 mg total) by mouth in the morning. 11/12/2024 Discontinued Problems Active Problems Problem ClassificationProblemDateDocumented DateEpisodic/ChronicBenign neoplasm of uterus (2 sources)Leiomyoma of uterus, unspecified; Translations: [Leiomyoma of uterus, unspecified]Onset: 11-10-8035VkxzjcomOwqjbli dysrhythmias (2 sources)Postural orthostatic tachycardia syndrome ; Translations: [POTS (postural orthostatic tachycardia syndrome)]24-02-8012SuucjmuPxrxoyn dysrhythmias (12 sources)Palpitations; Translations: [Tachycardia]Onset: EpisodicContraceptive and procreative management (4 sources)Patient encounter status; Translations: [Encounter for procreative management, unspecified]23-60-3110QdzorqmpEydzoczv mellitus without complication (2 sources)Abnormal glucose tolerance test; Translations: [Other abnormal glucose]28-29-7064HhbsocxeMdiavh infertility (2 sources)Female infertility; Translations: [Female infertility, unspecified] 14-24-2330EkbfvjmKqwhscihjpk (2 sources)Hemorrhoids; Translations: [Unspecified hemorrhoids]03-12-2025 EpisodicImmunizations and screening for infectious disease (2 sources)Exposure to sexually transmissible disorder; Translations: [Contact with and (suspected) exposure to infections with a predominantly sexual mode of transmission]16-09-5056SohzimexWohsnbegt disorders (2 sources)Missed period; Translations: [Irregular menstruation, unspecified] Onset: 795308-96-4476DfacrkgZvrrq complications of (5 sources)Gastroesophageal reflux disease in ; Translations: [Diseases of the digestive system complicating , unspecified trimester] 00-64-9203FbvefedvTgito complications of (1 source)Vomiting of , unspecified; Translations: [Unspecified vomiting of , unspecified as to episode of care or not applicable] 84-46-1168LubdgpbxDwrcd complications of (3 sources)Uterine fibroids affecting ; Translations: [Maternal care for benign tumor of corpus uteri, second trimester]30-62-0788JzowybtnTpbpe complications of (2 sources)Maternal care for benign tumor of corpus uteri, second trimester; Translations: [Maternal care for benign tumor of corpus uteri, second trimester] Onset: 03-24-0341JdnasosnWzjnx complications of (2 sources) size does not accord with dates; Translations: [Uterine size- date discrepancy, unspecified trimester]40-21-4857IpajdrqzHpyuv connective tissue disease (4 sources)Pain in right lower limb; Translations: [Pain in right leg]02-26-2025 EpisodicOther endocrine disorders (2 sources)Disorder of endocrine system; Translations: [Endocrine disorder, unspecified]71-92-2939PzytctqcPdskg female genital disorders (2 sources)Other specified conditions associated with female genital organs and menstrual cycle; Translations:[Other specified conditions associated with female genital organs and menstrual cycle]Onset: 25-52-8153ZlidfgmuOiowc female genital disorders (2 sources)Vaginal discharge; Translations: [Other specified noninflammatory disorders of vagina]01-24-7917GhbsckqlGvvrl gastrointestinal disorders (2 sources)Constipation; Translations: [Other constipation]85-79-2331Egfmkhxf Other gastrointestinal disorders (4 sources)Mass of uterine adnexa; Translations: [Other specified conditions associated with female genital organs and menstrual cycle]60-58-3412Xfcjljse Other and delivery including normal (20 sources); Translations: [Encounter for supervision of normal , unspecified, unspecified trimester]51-61-4148SqlsrzaeXbfwp screening for suspected conditions (not mental disorders or infectious disease) (1 source)Encounter for other specified screening; Translations: [Encounter for other specified screening]Onset: 49-50-8191Dgdbfvhs Other skin disorders (4 sources)Localized swelling of right lower limb; Translations: [Localized swelling, mass and lump, right lower limb]89-61-3385NctljuddJgkna skin disorders (2 sources)Localized swelling, mass and lump, right lower limb; Translations: [Localized swelling, mass and lump, right lower limb]Onset: 55-83-3179Eczlbswz Other upper respiratory infections (2 sources)Acute pharyngitis, unspecified; Translations: [Acute upper respiratory infection, unspecified]EpisodicResidual codes; unclassified (2 sources)H/O: miscarriage; Translations: [Personal history of other complications of , childbirth and the puerperium]24-44-4671Gqhqpkua Residual codes; unclassified (2 sources)Gestation period, 11 weeks; Translations: [11 weeks gestation of ]38-20-2349KmxvealvSoghirta codes; unclassified (2 sources)Gestation period, 16 weeks; Translations: [16 weeks gestation of ]99-81-0639EqfxtnmhXfqcmmtx codes; unclassified (1 source)16 weeks gestation of ; Translations: [16 weeks gestation of ]Onset: 38-44-0054JafchjijQmownivh codes; unclassified (2 sources)Gestation period, 15 weeks; Translations: [15 weeks gestation of ]81-88-2688ZtdlqgmzDeuvhuuz codes; unclassified (2 sources)Gestation period, 19 weeks; Translations: [19 weeks gestation of ]27-57-0206UxxxjckyGybrydch codes; unclassified (4 sources)Gestation period, 23 weeks; Translations: [23 weeks gestation of ]29-84-5926FscylqxgDlulelee codes; unclassified (2 sources)Gestation period, 25 weeks; Translations: [25 weeks gestation of ]87-85-1029ZzwqmmxdZmbsckku codes; unclassified (2 sources)26 weeks gestation of ; Translations: [26 weeks gestation of ]Onset: 47-64-8469XxfeltmxJxiloxsh codes; unclassified (2 sources)Gestation period, 27 weeks; Translations: [27 weeks gestation of ]84-16-1287YjxwlcfzPwiqfuni codes; unclassified (2 sources)Gestation period, 29 weeks; Translations: [29 weeks gestation of ]29-45-5320OfmpevavXcbnuuji codes; unclassified (2 sources)Gestation period, 31 weeks; Translations: [31 weeks gestation of ]85-13-7804HcdwsmfvQurzfxpx codes; unclassified (2 sources)Gestation period, 33 weeks; Translations: [33 weeks gestation of ]09-68-6992KbxiqzxpRaewbzc (4 sources)Syncope; Translations: [Syncope and collapse]Onset: 01-24-2025 93-82-7633OmljagsjUgqncsnamkls (1 source)Enlarged & Heterogeneous Bilateral OvariesOnset: 11-12-2024 Past or Other Problems Problem ClassificationProblemDateDocumented DateEpisodic/ChronicAbdominal pain (1 source)Right lower quadrant pain; Translations: [Abdominal pain, right lower quadrant]EpisodicOther complications of (1 source)Supervision of with other poor reproductive or obstetric history, unspecified trimester; Translations: [Supervision of with other poor reproductive or obstetric history, unspecified trimester]Onset: 18-33-2410LdyeljxoYckhh female genital disorders (1 source)H/O gynecological disorder; Translations: [History of ovarian cyst] EpisodicResidual codes; unclassified (1 source)Personal history of other complications of , childbirth and the puerperium; Translations: [Personal history of other complications of , childbirth and the puerperium]Onset: 96-05-3605Swmhapyo Results Test NameValueInterpretationReference RangeFacilityNo Panel InformationOrdered By: Radiologist Radiology on 12-97-7201[facility] Work Phone: No Panel Informationon 58-13-7496Vainpwwbu Study observation (narrative)NOMS HealthcareUS OB CERVICAL LENGTHon 45-35-7949[place] [address] Ultrasound Report Signed Patient: DAPHNEY GRADY MR#: [id number] : 2000 Acct:[id number] Age/Sex: 25 / F ADM Date: Loc: [facility] Attending Dr: Jack Woods D.O. Ordering Physician: Peggy,Jack D.O. Date of Service: 03/19/25 Procedure(s): US OB cervical length Accession Number(s): [id number] cc: Alberto Mayes M.D.; Jack Woods D.O. [address] [address] Patient Name: DAPHNEY GRADY MRN: [id number] date: 2000 Sex: F Assigned Patient Location: [facility] Current Patient Location: [facility] Accession/Order Number: [id number] Exam Date: 03/19/2025 10:05 Report Date: 03/19/2025 [...] lasting at least 30 seconds [Y] 2/2 JOHN: A single deepest vertical pocket of amniotic fluid greater than 2 cm [Y] 2/2 JHON: 24.6 cm. The 95th percentile is 24.8 cm. Total score: 8/8 IMPRESSION: NORMAL BIOPHYSICAL PROFILE SCORE. BORDERLINE POLYHYDRAMNIOS. Impression dictated by: Lisa Rojas M.D. 03/19/2025 10:57 AM Dictation Location: [place] [address] Electronically authenticated by: [id number] Y Date: 03/19/2025 10:57 Dictated By: Lisa Rojas M.D. Signed By: 03/19/25 1100 DD/ 1057 TD/TT: Tobacco Sweeper:ESTEFANYadiologashish, Radiologist, - 03/19/2025 [place] [address] Ultrasound Report Signed Patient: DAPHNEY GRADY MR#: [id number] : 2000 Acct:[id number] Age/Sex: 25 / F ADM Date: Loc: [facility] 250-[address]: Jack Woods D.O. Ordering Physician: Jack Woods D.O. Date of Service: 03/19/25 Procedure(s): US OB cervical length Accession Number(s): [id number] cc: Alberto Mayes M.D.; Jack Woods D.O. [address] [place] [address] Patient Name: DAPHNEY GRADY MRN: [id number] date: 2000 Sex: F Assigned Patient Location: [facility] Current Patient Location: [facility] Accession/Order Number: [id number] Exam Date: 03/19/2025 10:05 Report Date: 03/19/2025 [...] Rojas M.D. 03/19/2025 10:57 AM Dictation Location: [place] [address] Electronically authenticated by: [id number] Y Date: 03/19/2025 10:57 Dictated By: Lisa Rojas M.D. Signed By: 03/19/251099 DD/ 105 TD/TT: Tobacco Sweeper: RIMMA Looney OB BPP W NON-STRESSon 89-16-3912TpeLog[place], [place] [address] Ultrasound Report Signed Patient: DAPHNEY GRADY MR#: [id number] : 2000 Acct:[id number] Age/Sex: 25 / F ADM Date: Loc: [facility] Attending Dr: Jack Woods D.O. Ordering Physician: Jack Woods D.O. Date of Service: 03/19/25 Procedure(s): US OB BPP w non-stress Accession Number(s): [id number] cc: Alberto Mayes M.D.; Jack Woods D.O. [place] [address] Patient Name: DAPHNEY GRADY MRN: [id number] date: 2000 Sex: F Assigned Patient Location: [facility] Current Patient Location: [facility] Accession/Order Number: [id number] Exam Date: 03/19/2025 10:05 Report Date: 03/19/2025 [...] Rojas M.D. 03/19/2025 10:57 AM Dictation Location: [place] [address] Electronically authenticated by: [id number] Y Date: 03/19/2025 10:57 Dictated By: Lisa Rojas M.D. Signed By: 03/19/25 1100 DD/ 1057 TD/TT: Tobacco Sweeper:TBHRadiology, Radiologist, - 03/19/2025 [place] [address] Ultrasound Report Signed Patient: DAPHNEY GRADY MR#: [id number] : 2000 Acct:[id number] Age/Sex: 25 / F ADM Date: Loc: [facility] 250- Attending Dr: Jack Woods D.O. Ordering Physician: Jack Woods D.O. Date of Service: 03/19/25 Procedure(s): US OB BPP w non-stress Accession Number(s): [id number] cc: Alberto Mayes M.D.; Jack Woods D.O. [address] [address] Patient Name: DAPHNEY GRADY MRN: [id number] date: 2000 Sex: F Assigned Patient Location: [facility] Current Patient Location: [facility] Accession/Order Number: [id number] Exam Date: 03/19/2025 10:05 Report Date: 03/19/2025 [...] Rojas M.D. 03/19/2025 10:57 AM Dictation Location: [place] [address] Electronically authenticated by: [id number] Y Date: 03/19/2025 10:57 Dictated By: Lisa Rojas M.D. Signed By: 03/19/25 1100 DD/ 1057 TD/TT: Tobacco Sweeper: RIMMA HOPE PLACENTAon 80-16-7658QciLogans[place], [place] [address] Ultrasound Report Signed Patient: DAPHNEY GRADY MR#: [id number] : 2000 Acct:[id number] Age/Sex: 25 / F ADM Date: Loc: [facility] 250-[address]: Jack Woods D.O. Ordering Physician: Jack Woods D.O. Date of Service: 03/19/25 Procedure(s): US OB placenta Accession Number(s): [id number] cc: Alberto Mayes M.D.; Jack Woods D.O. [place] [address] Patient Name: DAPHNEY GRADY MRN: [id number] date: 2000 Sex: F Assigned Patient Location: [facility] Current Patient Location: [facility] Accession/Order Number: [id number] Exam Date: 03/19/2025 10:05 Report Date: 03/19/2025 [...] Rojas M.D. 03/19/2025 10:57 AM Dictation Location: [place] [address] Electronically authenticated by: [id number] Y Date: 03/19/2025 10:57 Dictated By: Lisa Rojas M.D. Signed By: 03/19/251099 DD/ 56 TD/TT: Tobacco Sweeper:ESTEFANYadiologashish, Radiologist, - 03/19/2025 [place] [address] Ultrasound Report Signed Patient: DAPHNEY GRADY MR#: [id number] : 2000 Acct:[id number] Age/Sex: 25 / F ADM Date: Loc: [facility] Attending Dr: Jack Woods D.O. Ordering Physician: Jack Woods D.O. Date of Service: 03/19/25 Procedure(s): US OB placenta Accession Number(s): [id number] cc: Alberto Mayes M.D.; Jack Woods D.O. The [place] [address] Patient Name: DAPHNEY GRADY MRN: [id number] date: 2000 Sex: F Assigned Patient Location: [facility] Current Patient Location: [facility] Accession/Order Number: [id number] Exam Date: 03/19/2025 10:05 Report Date: 03/19/2025 [...] Rojas M.D. 03/19/2025 10:57 AM Dictation Location: [place] [address] Electronically authenticated by: [id number] Y Date: 03/19/2025 10:57 Dictated By: Lisa Rojas M.D. Signed By: 03/19/25 1100 DD/ 1057 TD/TT: Tobacco Sweeper: RIMMA [place] CBC WITH AUTO DIFFon 71-99-5562LJETFWUYZ ABSOLUTE AUTO0.1NOMS HealthcareBasophils/100 WBC (Bld)0.5 %0.2 - 2.0 %NOMS HealthcareEosinophils/100 WBC (Bld)0.8 %Low0.9 - 7.0 %NOMS HealthcareErythrocyte distribution width (RBC) [Ratio]12.7 %11.0 - 15.0 %NOMS HealthcareHematocrit (Bld) [Volume fraction]29.8 %Low36.0 - 48.0 %NOMS HealthcareHemoglobin (Bld) [Mass/Vol]10.0 g/dLLow12.0 - 16.0 g/dLSaint John's Saint Francis HospitalIMMATURE GRANULOCYTES ABS AUTO0.19HighSaint John's Saint Francis Hospital Immature granulocytes/100 WBC (Bld)1.9 %High0.0 - 0.5 %[facility] Interpretation and review of laboratory resultsAbnoMercy Fitzgerald Hospital LYMPHOCYTES ABSOLUTE AUTO1.7[facility] HospitalLymphocytes/100 WBC (Bld)17.1 %Low 20.5 - 60.0 %[facility] SystemH (RBC) [Entitic mass]29.7 pg26.7 - 34.0 pgSaint John's Health SystemHC (RBC) [Mass/Vol]33.6 g/dL29.9 - 35.2 g/dLSaint John's Health SystemV (RBC) [Entitic vol]88.4 fL81.0 - 99.0 fLSaint John's Saint Francis HospitalMONOCYTES ABSOLUTE AUTO0.8NOOzarks Medical CenterMonocytes/100 WBC (Bld)7.5 %1.7 - 12.0 %[facility] HospitalNEUTROPHILS ABSOLUTE AUTO7.3HighSaint John's Saint Francis HospitalNeutrophils/100 WBC (Bld)72.2 %43.0 - 75.0 % [facility] HospitalPlatelet mean volume (Bld) [Entitic vol]9.7 fL9.5 - 13.5 fLSaint John's Saint Francis HospitalTB EO #0.1N[facility]S [facility] HospitalTB CGA672SMILSaint Luke's Hospital RBC3.37LowNOSaint Luke's Hospital WBC10.0NOOzarks Medical CenterCLINISYNCNKansas City VA Medical CenterUrinalysis macro (dipstick) panel (U)on 26-18-7715Ogleuxbfh, UANegativeNegative - 4(70) +++ mg/dL [facility] HospitalBlood, UANegativeNegative - 50 Clarke/mcLCEDAR CITY HOSPITAL HealthcareClarity, UA ClearNOIL HealthcareColor, UAYellowNOIL HealthcareGlucose, UANegativeNegative - 2000(110) ++++ mg/dLSaint John's Saint Francis HospitalInterpretation and review of laboratory resultsAbnormCoatesville Veterans Affairs Medical CenterKetones, UANegativeNegative - 160(16) ++++ mg/dL [facility] HospitalLeukocytes, UAPositiveNegative - 500+++ Kamaljit/mcLCEDAR CITY HOSPITAL Healthcare Comment on above:2+Nitrite, UANegativeNegative - PositiveNOMS HealthcarepH, UA 8.05 - 9NOMS HealthcareProtein, UANegativeNegative - 1999(20) ++++ mg/dLNOMS HealthcareSpec Grav, UA1.0101 - 1.03NOMS HealthcareUrobilinogen, UA0.20.2 - 12 mg/dLNOMS HealthcareNOMS HealthcareUS OB FOLLOW UP TRANSABDOMINAL APPROACHon 73-90-5214KE OB FOLLOW UP TRANSABDOMINAL APPROACHFINDINGS: A single, [...] Delivery: 04/29/25 Gestational Age as of 02/11/2025: 75b4tXcandivxia macro (dipstick) panel (U)on 13-53-5343Vcgcutqhm, UANegativeNegative - 4(70) +++ mg/dLNOMS HealthcareBlood, UANegativeNegative [...] HealthcareNOMS Healthcare Urinalysis macro (dipstick) panel (U)on 69-84-5402Yfjjilvvf, UANegativeNegative - 4(70) +++ mg/dLNOMS HealthcareBlood, UANegativeNegative [...] 12 mg/dLNOMS HealthcareNOMS HealthcareGLUCOSE TOLERANCE 3 HOURon 46-41-9302WWVURXS TOLERANCE 3 HOURmg/dLNOMS HealthcareComment on above:GLU FAST [...] ++++ mg/dLNOMS HealthcareInterpretation and review of laboratory resultsAbnormalNOIL Healthcare Ketones, UANegativeNegative - 160(16) ++++ mg/dLNOMS HealthcareLeukocytes, UA PositiveNegative - 500+++ Kamaljit/mcLNOMS HealthcareComment on above:3+Nitrite, UA NegativeNegative - PositiveNOMS HealthcarepH, UA6.55 - 9NOMS HealthcareProtein, UANegativeNegative - 2000(20) ++++ mg/dLNOMS HealthcareSpec Grav, UA1.011 - 1.03 NOMS HealthcareUrobilinogen, UA0.20.2 - 12 mg/dLNOIL HealthcareNOIL Healthcare GLUCOSE 1 HOURon 68-06-3908Ggrbkzt [Mass/Vol]150 mg/dLHighNINF - 130 mg/dLNOMS HealthcareInterpretation and review of laboratory resultsAbnormalNOIL Healthcare CLINISYNCNOIL HealthcareOffice Visiton 05-68-2705Twvdmk-up [id number] Daphney Al 2000 F Date Provider Department Center 01/24/2025 [id number] APODACA HANNAH [facility] Family History Problem Relation Age of Onset Hypertension Father Family Status - Relation Status Age at Mother Alive Father Alive Level of Service:39337 [place] OFFICE/OUTPATIENT NEW LOW MDM 30 MINUTES Reason for Visit and Comments: New Patient [632] - Patient is here today as a new patient to establish care with cariology Syncope [506] Palpitations [199048] 26 weeks [Other][facility] CenterCA ECHO DOPPLER COMPLETEon 39-63-0142[address] [address] Cardiology Report Signed Patient: DAPHNEY AL MR#: [id number] : 2000 Acct:[id number] Age/Sex: 24 / F ADM Date: 01/20/25 Loc: CARD Attending Dr: Jayla Art Ordering Physician: Jayla Art Date of Service: 01/20/25 Procedure(s): CA echo doppler complete Accession Number(s): [id number] cc: Jayla Art; Alberto Mayes M.D. Patient Name: DAPHNEY AL MR#: [id number] : 2000 Exam Date: 01/20/2025 Ordering Doctor: [...] Marie M.D. Signed By: 01/21/2559 DD/ TD/TT: Tobacco Sweeper:TBHRadiology, Radiologist, - 01/21/2025 [place] [address] Cardiology Report Signed Patient: DAPHNEY AL MR#: [id number] : 2000 Acct:[id number] Age/Sex: 24 / F ADM Date: 01/20/25 Loc: CARD Attending Dr: Jayla Art Ordering Physician: Jayla Art Date of Service: 01/20/25 Procedure(s): CA echo doppler complete Accession Number(s): [id number] cc: Jayla Art; Alberto Mayes M.D. Patient Name: DAPHNEY AL MR#: [id number] : 2000 Exam Date: 01/20/2025 Ordering Doctor: [...] on 01/21/2025 at 09:58 Dictated By: Randy Mraie M.D. Signed By: 01/21/25958 DD/ 7 TD/TT: Tobacco Sweeper: [facility] HospitalRadiology Study observation (narrative)[facility] ECHO DOPPLER COMPLETEOrdered By: Radiologist Radiology on 71-94-0185UJNVSaint John's Saint Francis Hospital Work Phone: Urinalysis macro (dipstick) panel (U)on 01-16-2025 Bilirubin, UANegativeNegative - 4(70) +++ mg/dLNOMS HealthcareBlood, UAPositive Negative - 50 Clarke/mcLNOMS HealthcareComment on above:3+Clarity, UAClearNOIL HealthcareColor, UAYellowNOMS HealthcareGlucose, UANegativeNegative - 1999(110) ++++ mg/dLNOIL HealthcareInterpretation and review of laboratory resultsAbnormal [facility] HealthcareKetones, UANegativeNegative - 160(16) ++++ mg/dLNOIL Healthcare Leukocytes, UAPositiveNegative - 500+++ Kamaljit/mcLNOMS HealthcareComment [...] HealthcareNOMS Healthcare Urinalysis macro (dipstick) panel (U)on 77-05-0382Nvffsnnug, UANegativeNegative - 4(70) +++ mg/dLNOMS HealthcareBlood, UANegativeNegative - 50 Clarke/mcLNOMS HealthcareClarity, UAClearNOMS HealthcareColor, UAYellowNOMS HealthcareGlucose, UANegativeNegative - 2000(110) ++++ mg/dLNOMS HealthcareInterpretation and review of laboratory resultsAbnormalNOMS HealthcareKetones, UANegativeNegative - 160(16) ++++ mg/dLNOMS HealthcareLeukocytes, UANegativeNegative - 500+++ Kamaljit/mcLNOIL HealthcareNitrite, UANegativeNegative - PositiveNOMS HealthcarepH, UA65 - 9NOMS HealthcareProtein, UANegativeNegative - 2000(20) ++++ mg/dLNOMS HealthcareSpec Grav, UA1.011 - 1.03NOMS HealthcareUrobilinogen, UA1.00.2 - 12 mg/dLNOMS HealthcareNOMS HealthcareUrinalysis macro (dipstick) panel (U)on 00-93-5917Hecitflbz, UANegativeNegative - 4(70) +++ mg/dLNOMS HealthcareBlood, UANegativeNegative - 50 Clarke/mcLNOMS HealthcareClarity, UAClearNOMS Healthcare Color, UAYellowNOIL HealthcareGlucose, UANegativeNegative - 2000(110) ++++ mg/dL [facility] HealthcareInterpretation and review of laboratory resultsAbnormalNOMS HealthcareKetones, UANegativeNegative - 160(16) ++++ mg/dLCEDAR CITY HOSPITAL Healthcare Leukocytes, UAPositiveNegative - 500+++ Kamaljit/mcLCEDAR CITY HOSPITAL HealthcareComment on above: SmallNitrite, UANegativeNegative - PositiveNOMS HealthcarepH, UA75 - 9NOMS HealthcareProtein, UANegativeNegative - 2000(20) ++++ mg/dLCEDAR CITY HOSPITAL HealthcareSpec Grav, UA1.011 - 1.03NOIL HealthcareUrobilinogen, UA1.00.2 - 12 mg/dLNOOzarks Medical CenterNOIL HealthcareFetal Free Cell DNA (Non-[facility] Send Out)on 16-21-6586JcvIiqsnn Health SystemPATHOLOGY REQUEST FOR LAB CORPon 11-12-2024 PATHOLOGY REQUEST FOR LAB CORPCEDAR CITY HOSPITAL HealthcareComment on above:See report. Scanned copy available in EMR.SKIN TAGFIRELANDSCEDAR CITY HOSPITAL HealthcareIGP,APTIMA HPV,AGE GDLNon 47-20-7413INQ GDLN ACOG TESTINGNote.[facility] HealthcareComment on above: TESTS RESULT FLAG UNITS REF RANGE LAB Clinician Provided Cytology Information Source.............Cervix No. of containers..01 ThinPrep Vial Age Algo ACOG Nery... -12 06 FLAG LEGEND: L-Low Normal,H-High Normal,LL-Alert Low,HH-Alert High <-Panic Low,>-Panic High,A-Abnormal,AA-Critical Abnormal Performed at: 01 =G [facility] [place] [address] Gypsy Mtz MD, IGP, RFX APTIMA HPV ASCUNote.NOMS HealthcareComment on above:TESTS RESULT FLAG UNITS REF RANGE LAB DIAGNOSIS: 02 NEGATIVE FOR INTRAEPITHELIAL LESION OR MALIGNANCY. THIS SPECIMEN WAS RESCREENED PART OF OUR [employer]HEL GIRL PROGRAM. Specimen adequacy: 02 Satisfactory for evaluation. Endocervical and/or squamous metaplastic cells (endocervical component) are present. Performed by: 02 Felicity Rosen, Material Distributor (ASCP) QC reviewed by: 02 Esme Mahoney, Material Distributor (ASCP) . 02 Note: Note 02 The [...] Low,>-Panic High,A-Abnormal,AA-Critical Abnormal Performed at: [address] [address] Gypsy Mtz MD, Performed at: = - [facility] [address] [id number] Log Sorting Supervisor: Gypsy Mtz MD, Phone: [phone] Performed at: - [facility] [id number] Log Sorting Supervisor: Gypsy Mtz MD, Phone: [phone] SPATULA-ALONE CERVIX CLINISYNCNOMS HealthcareRECURRENT VAGINITIS (HTRX)on 06-00-2175DZGICBBYU VAGINAE 0NOMS HealthcareATOPOBIUM VAGINAENot detectedNOMS HealthcareBVAB 2,3 (BACTERIAL VAGINOSIS ASSOCIATED BACTERIA 2, 3); MOBILUNCUS UTV9PVHP HealthcareBVAB 2,3 (BACTERIAL VAGINOSIS ASSOCIATED BACTERIA 2, 3); MOBILUNCUS SPPNot detectedNOMS HealthcareCANDIDA ALBICANS, PARAPSILOSIS, TFOTVZZVQF8GVRV HealthcareCANDIDA ALBICANS, PARAPSILOSIS, TROPICALISNot detectedNOMS HealthcareCANDIDA GLABRATA0 NOMS HealthcareCANDIDA GLABRATANot detectedNOMS HealthcareCANDIDA ZVYCQC5BHTW HealthcareCANDIDA KRUSEINot detectedNOMS HealthcareCHLAMYDIA ZAHFNCDEYSA5RBTS HealthcareCHLAMYDIA TRACHOMATISNot detectedNOMS HealthcareGARDNERELLA VAGINALIS0 NOMS HealthcareGARDNERELLA VAGINALISNot detectedNOMS HealthcareMEGASPHAERA (TYPES 1, 2)0NOMS HealthcareMEGASPHAERA (TYPES 1, 2)Not detectedNOMS Healthcare MYCOPLASMA WVTKYEHCQN6RCTC HealthcareMYCOPLASMA GENITALIUMNot detectedNOMS HealthcareNEISSERIA ILEHRCOWBEM8PJXK HealthcareNEISSERIA GONORRHOEAENot detected NOMS HealthcareTRICHOMONAS SZMSOSNLM1RXOE HealthcareTRICHOMONAS VAGINALISNot detectedNOMS HealthcareNOMS HealthcarePathology Request for Lab Corpon 14-35-4401Rhbpcdjmx Request for Lab [facility] Comment on above:Order Comment: SKIN TAGResult Comment: See report. Scanned copy available in EMR. PERFORMED BY: [facility] [place] [address] PATHOLOGIST SUPERVISOR RECORDS CHANGE JOSUÉ VALENZUELA M.D.Performed By: #### PROG #### [facility] ,Urinalysis macro (dipstick) panel (U)on 91-61-0357Uxwyillna, UANegativeNegative - 4(70) +++ mg/dLNOMS HealthcareBlood, UANegativeNegative [...] mg/dLNOMS HealthcareNOMS HealthcareUrinalysis macro (dipstick) panel (U)on 89-85-1625Xdcyneuwq, UANegativeNegative - 4(70) +++ mg/dLNOMS HealthcareBlood, UANegativeNegative - 50 Clarke/mcLNOMS HealthcareClarity, UAClearNOMS Healthcare Color, UAYellowNOMS HealthcareGlucose, UANegativeNegative - 2000(110) ++++ mg/dL NOMS HealthcareInterpretation and review of laboratory resultsAbnormalNOMS HealthcareKetones, UANegativeNegative - 160(16) ++++ mg/dLNOMS Healthcare Leukocytes, UATraceNegative - 500+++ Kamaljit/mcLNOMS HealthcareNitrite, UANegative Negative - PositiveNOMS HealthcarepH, UA65 - 9NOMS HealthcareProtein, UANegative Negative - 1999(20) ++++ mg/dLNOIL HealthcareSpec Grav, UA1.021 - 1.03NOIL HealthcareUrobilinogen, UA0.20.2 - 12 mg/dLNOOzarks Medical CenterNOIL HealthcareMLR HEMOGLOBIN A1Con 86-22-2622Xsjutbe [Mass/Vol]100 mg/dLSaint John's Saint Francis HospitalHbA1c (Bld) [Mass fraction]5.1 %4.5 - 6.2 %NOMS HealthcareComment on above:ADA RECOMMENDED LIMIT 4.0 - 6.0 ADA THERAPEUTIC TARGET < 7.0 ACTION SUGGESTED > 7.0 CLINISYNCNOIL HealthcareHCG ( test) Ql (U)on 65-28-8866Hjvpqrbtvkznvs and review of laboratory resultsAbnormalNOIL HealthcarePreg Test, UrPositive NegativeNOHedrick Medical Center HealthcareUS OB TRANSVAGINALon 98-95-9389HJ OB TRANSVAGINALEXAM: US OB TRANSVAGINAL HISTORY: Dating/viability. [...] II, MD, PHD at 22-Sep-2024 08:21:31 PM [facility] TeleradiologyNormalNot AvailableComment on above:Order Comment: US OB TRANSVAGINAL No LMP recorded.Urinalysis macro (dipstick) panel (U)on 07-43-3594Wuzyypxsq, UA NegativeNegative - 4(70) +++ mg/dLNOMS HealthcareBlood, [...] II, MD, PHD at 28-Aug-2024 11:25:24 PM [facility] TeleradiologyNormalNot AvailableComment on above:Order Comment: US OB TRANSVAGINAL No LMP recorded.TB PREG QUANT HCGon 82-40-9989JPQ EAVOHKXDPRCB0137zGK/mLNOMS HealthcareComment on above:5-50 0.2-1 WEEK 50-500 1-2 WEEKS 100-5,000 2-3 WEEKS 500-10,000 3-4 WEEKS 1,000-50,000 4-5 WEEKS 10,000-100,000 5-6 WEEKS 15,000-200,000 6-8 WEEKS 10,000-100,000 2-3 MONTHS CLINISYNCNOMS HealthcareTB PREG QUANT HCGon 77-11-5231UYL KQOJILKBYELS003nCA/mL NOMS HealthcareComment on above:5-50 0.2-1 WEEK 50-500 1-2 WEEKS 100-5,000 2-3 WEEKS 500-10,000 3-4 WEEKS 1,000-50,000 4-5 WEEKS 10,000-100,000 5-6 WEEKS 15,000-200,000 6-8 WEEKS 10,000-100,000 2-3 MONTHS CLINISYNCNOMS HealthcareTB PREG QUANT HCGon 63-15-4932WQS OMQSVNUCRSJB864fHD/mL NOMS HealthcareComment on above:5-50 0.2-1 WEEK 50-500 1-2 WEEKS 100-5,000 2-3 WEEKS 500-10,000 3-4 WEEKS 1,000-50,000 4-5 WEEKS 10,000-100,000 5-6 WEEKS 15,000-200,000 6-8 WEEKS 10,000-100,000 2-3 [facility] PREG QUANT HCGon 75-16-9534DWY TGDAAADFASWB147nTK/mL NOMS HealthcareComment on above:5-50 0.2-1 WEEK 50-500 1-2 WEEKS 100-5,000 2-3 WEEKS 500-10,000 3-4 WEEKS 1,000-50,000 4-5 WEEKS 10,000-100,000 5-6 WEEKS 15,000-200,000 6-8 WEEKS 10,000-100,000 2-3 MONTHS [facility] PREG QUANT HCGon 84-50-3428LFY YDDATKDDTURG03eDB/mL NOMS HealthcareComment on above:5-50 0.2-1 WEEK 50-500 1-2 WEEKS 100-5,000 2-3 WEEKS 500-10,000 3-4 WEEKS 1,000-50,000 4-5 WEEKS 10,000-100,000 5-6 WEEKS 15,000-200,000 6-8 WEEKS 10,000-100,000 2-3 MONTHS [facility] PREG QUANT HCGon 28-19-3767HZY UTNUEORDQBPO1zXD/mL NOMS HealthcareComment on above:5-50 0.2-1 WEEK 50-500 1-2 WEEKS 100-5,000 2-3 WEEKS 500-10,000 3-4 WEEKS 1,000-50,000 4-5 WEEKS 10,000-100,000 5-6 WEEKS 15,000-200,000 6-8 WEEKS 10,000-100,000 2-3 MONTHS [facility] PROGESTERONEon 04-01-9450OASNGVWXOOHC75.8 ng/mL.NOMS HealthcareComment on above:Follicular phase 0.1 - 0.9 Luteal phase 1.8 - 23.9 Ovulation phase 0.1 - 12.0 First trimester 11.0 - 44.3 Second trimester 25.4 - 83.3 Third trimester 58.7 - 214.0 Postmenopausal 0.0 - 0.1 Performed at: [address] [id number] Log Sorting Supervisor: Jordin Rao PhD, Phone: [phone] [facility]ITALBe my eyesHedrick Medical Center PROGESTERONEon 58-58-1716EGUZGOFKIFQR13.6 ng/mL.NOMS HealthcareComment on above:Follicular phase 0.1 - 0.9 Luteal phase 1.8 - 23.9 Ovulation phase 0.1 - 12.0 First trimester 11.0 - 44.3 Second trimester 25.4 - 83.3 Third trimester 58.7 - 214.0 Postmenopausal 0.0 - 0.1 Performed at: [address] [id number] Log Sorting Supervisor: Jordin Rao PhD, Phone: [phone] [facility] PREG QUANT HCGon 98-22-2477KKL QUANTITATIVE<1mIU/mL NOMS HealthcareComment on above:5-50 0.2-1 WEEK 50-500 1-2 WEEKS 100-5,000 2-3 WEEKS 500-10,000 3-4 WEEKS 1,000-50,000 4-5 WEEKS 10,000-100,000 5-6 WEEKS 15,000-200,000 6-8 WEEKS 10,000-100,000 2-3 [facility] PROGESTERONEon 66-56-1645NUBXMBEIYNHW98.9 ng/mL.NOMS HealthcareComment on above:Follicular phase 0.1 - 0.9 Luteal phase 1.8 - 23.9 Ovulation phase 0.1 - 12.0 First trimester 11.0 - 44.3 Second trimester 25.4 - 83.3 Third trimester 58.7 - 214.0 Postmenopausal 0.0 - 0.1 Performed at: [address] [id number] Log Sorting Supervisor: Jordin Rao PhD, Phone: [phone] [facility] HOSPITALRehabDevEmerald-Hod[facility] HEMOGLOBIN A1Con 35-20-8599Vczbxrh [Mass/Vol]88 mg/dLNOOzarks Medical CenterJxmdcqortzYzP1m (Bld) [Mass fraction]4.7 %4.5 - 6.2 %NOMS Healthcare Comment on above:ADA RECOMMENDED LIMIT 4.0 - 6.0 ADA THERAPEUTIC TARGET < 7.0 ACTION SUGGESTED > 7.0 CLINISYNCNOMS HealthcareChoriogonadotropin.beta subunit [Units/volume] in Serum or PlasmaOrdered By: Jack Woods on 64-60-4556WWL.beta subunit Qn4.96 m[IU]/mL [facility]uffton HospitalComment on above:Approximate Approximate hCG Gestational Age Range (mIU/ml) (weeks)0.2-1 5-50 1-2 50-500 2-3 100-5,000 3-4 500-10,000 4-5 1,000-50,000 5-6 10,000-100,000 6-8 15,000-200,000 8-12 10,000-100,000HCG,Quantitativeon 26-68-1387GZZ,Quantitative4.96 m[iU]/mLNormal [facility] Physician GroupComment on above:Result Comment: Approximate Approximate hCG Gestational Age Range (mIU/ml) (weeks) 0.2-1 5-50 1-2 50-500 2-3 100-5,000 3-4 500-10,000 4-5 1,000-50,000 5-6 10,000-100,000 6-8 15,000-200,000 8-12 10,000-100,000 PERFORMED BY: [place] [address] PATHOLOGIST SUPERVISOR RECORDS CHANGE TO ANAYA M.D.Performed By: #### HCGQNT #### [place] [address] USAChoriogonadotropin.beta subunit [Units/volume] in Serum or PlasmaOrdered By: Jack Woods on 60-37-6258QBG.beta subunit Qn108.32 m[IU]/mL [facility]uff[facility] HospitalComment on above:Approximate Approximate hCG Gestational Age Range (mIU/ml) (weeks)0.2-1 5-50 1-2 50-500 2-3 100-5,000 3-4 500-10,000 4-5 1,000-50,000 5-6 10,000-100,000 6-8 15,000-200,000 8-12 10,000-100,000HCG,Quantitativeon 50-00-6304ITH,Atrehsiuccls084.32 m[iU]/mLNormal [facility] Physician GroupComment on above:Result Comment: Approximate Approximate hCG Gestational Age Range (mIU/ml) (weeks) 0.2-1 5-50 1-2 50-500 2-3 100-5,000 3-4 500-10,000 4-5 1,000-50,000 5-6 10,000-100,000 6-8 15,000-200,000 8-12 10,000-100,000 PERFORMED BY: [place] [id number] PATHOLOGIST SUPERVISOR RECORDS CHANGE TO ANAYA M.D.Performed By: #### HCGQNT #### [place] [id number] USAChoriogonadotropin.beta subunit [Units/volume] in Serum or PlasmaOrdered By: Jack Woods on 89-60-0160YUH.beta subunit Tb1413.88 m[IU]/mL [facility] HospitalComment on above:Approximate Approximate hCG Gestational Age Range (mIU/ml) (weeks)0.2-1 5-50 1-2 50-500 2-3 100-5,000 3-4 500-10,000 4-5 1,000-50,000 5-6 10,000-100,000 6-8 15,000-200,000 8-12 10,000-100,000HCG,Quantitativeon 78-57-1180YCY,Lyodvpwclncu0951.88 m[iU]/mL NormalThe [facility] Physician GroupComment on above:Result Comment: Approximate Approximate hCG Gestational Age Range (mIU/ml) (weeks) 0.2-1 5-50 1-2 50-500 2-3 100-5,000 3-4 500-10,000 4-5 1,000-50,000 5-6 10,000-100,000 6-8 15,000-200,000 8-12 10,000-100,000 PERFORMED BY: [place] [id number] PATHOLOGIST SUPERVISOR RECORDS CHANGE TO ANAYA M.D.Performed By: #### HCGQNT #### [address] [address] USAChoriogonadotropin.beta subunit [Units/volume] in Serum or PlasmaOrdered By: Jack Woods on 70-16-5513LJG.beta subunit Qn988.06 m[IU]/mL [facility] HospitalComment on above:Approximate Approximate hCG Gestational Age Range (mIU/ml) (weeks)0.2-1 5-50 1-2 50-500 2-3 100-5,000 3-4 500-10,000 4-5 1,000-50,000 5-6 10,000-100,000 6-8 15,000-200,000 8-12 10,000-100,000HCG,Quantitativeon 06-16-2919JPT,Skztdwtetygp740.06 m[iU]/mLNormal [facility] Physician GroupComment on above:Result Comment: Approximate Approximate hCG Gestational Age Range (mIU/ml) (weeks) 0.2-1 5-50 1-2 50-500 2-3 100-5,000 3-4 500-10,000 4-5 1,000-50,000 5-6 10,000-100,000 6-8 15,000-200,000 8-12 10,000-100,000 PERFORMED BY: [address] [address] PATHOLOGIST SUPERVISOR RECORDS CHANGE TO ANAYA M.D.Performed By: #### HCGQNT #### [address] [address] USAUS OB transvaginalon 13-87-4371GO OB transvaginalWOOSTER COMM[facility] Main [address] [address] Ultrasound Report Signed Patient: Daphney Al MR#: [id number] : 2000 Acct:[id number] Age/Sex: 23 / F ADM Date: 12/20/23 Loc: Room: Type: REG CLI Attending Dr: Jack Peggy DO Ordering Provider: Jack Woods Date of Service: 12/20/23 US/US OB <= 14 weeks fetus: N92.6 ([id number]) US/US OB transvaginal: N92.6 Copies to: Jack [...] Lisa Rojas M.D.12/20/2023 5:46 PM Dictation Location: [place] [address] Tech: Deb Farhan Transcribed By: FLETCHER 12/20/23 174 Dictated By: Lisa Rojas MD 12/20/23 173 Signed By: 12/20/23 1746NoAlleghany Health Physician GroupChoriogonadotropin.beta subunit [Units/volume] in Serum or PlasmaOrdered By: Jack Woods on 51-96-6295FHH.beta subunit Qn295.86 m[IU]/mLBlanchard Valley [facility] System Bluffton HospitalComment on above: Approximate Approximate hCG Gestational Age Range (mIU/ml) (weeks)0.2-1 5-50 1-2 50-500 2-3 100-5,000 3-4 500-10,000 4-5 1,000-50,000 5-6 10,000-100,000 6-8 15,000-200,000 8-12 10,000-100,000HCG,Quantitativeon 44-39-5778EVX,Quantitative 295.86 m[iU]/mLNFormerly [facility] Physician GroupComment on above:Result Comment: Approximate Approximate hCG Gestational Age Range (mIU/ml) (weeks) 0.2-1 5-50 1-2 50-500 2-3 100-5,000 3-4 500-10,000 4-5 1,000-50,000 5-6 10,000-100,000 6-8 15,000-200,000 8-12 10,000-100,000 PERFORMED BY: [place] [address] PATHOLOGIST SUPERVISOR RECORDS CHANGE TO ANAYA M.D.Performed By: #### HCGQNT #### [place] [address] USAChoriogonadotropin.beta subunit [Units/volume] in Serum or PlasmaOrdered By: Jack Woods on 98-80-8426FID.beta subunit Qn135.80 m[IU]/mL [facility] HospitalComment on above:Approximate Approximate hCG Gestational Age Range (mIU/ml) (weeks)0.2-1 5-50 1-2 50-500 2-3 100-5,000 3-4 500-10,000 4-5 1,000-50,000 5-6 10,000-100,000 6-8 15,000-200,000 8-12 10,000-100,000HCG,Quantitativeon 25-02-3519CFF,Emupzomlgjur000.80 m[iU]/mLNormal [facility] Physician GroupComment on above:Result Comment: Approximate Approximate hCG Gestational Age Range (mIU/ml) (weeks) 0.2-1 5-50 1-2 50-500 2-3 100-5,000 3-4 500-10,000 4-5 1,000-50,000 5-6 10,000-100,000 6-8 15,000-200,000 8-12 10,000-100,000 PERFORMED BY: [place] [address] PATHOLOGIST SUPERVISOR RECORDS CHANGE TO ANAYA M.D.Performed By: #### HCGQNT #### [place] [address] USAChoriogonadotropin.beta subunit [Units/volume] in Serum or PlasmaOrdered By: ANT Reardon on 73-31-7563PYO.beta subunit Qn69.85 m[IU]/mLBlanchard Valley [facility] System Bluffton HospitalComment on above:Approximate Approximate hCG Gestational Age Range (mIU/ml) (weeks)0.2-1 5-50 1-2 50-500 2-3 100-5,000 3-4 500-10,000 4-5 1,000-50,000 5-6 10,000-100,000 6-8 15,000-200,000 8-12 10,000-100,000HCG,Quantitativeon 98-61-5446ZCS,Clymmpdbmgfn39.85 m[iU]/mL NormalThe [facility] Physician GroupComment on above:Result Comment: Approximate Approximate hCG Gestational Age Range (mIU/ml) (weeks) 0.2-1 5-50 1-2 50-500 2-3 100-5,000 3-4 500-10,000 4-5 1,000-50,000 5-6 10,000-100,000 6-8 15,000-200,000 8-12 10,000-100,000 PERFORMED BY: [place] [address] PATHOLOGIST SUPERVISOR RECORDS CHANGE TO ANAYA M.D.Performed By: #### HCGQNT #### [place] [address] USAProgesteroneon 99-41-7063Tgsgaqpigtvh45.5 ng/mLNormal.[facility] Physician GroupComment on above:Result Comment: Follicular phase 0.1 - 0.9 Luteal phase 1.8 - 23.9 Ovulation phase 0.1 - 12.0 First trimester 11.0 - 44.3 Second trimester 25.4 - 83.3 Third trimester 58.7 - 214.0 Postmenopausal 0.0 - 0.1 Performed at: [employer] [place] [address] [place], [place] [id number] Log Sorting Supervisor: Jordin Rao PhD, Phone: [phone] PERFORMED BY: [place] [address] PATHOLOGIST SUPERVISOR RECORDS CHANGE TO ANAYA M.D.Performed By: #### PROG #### [facility] ,Serum or plasma progesterone measurement (mass/volume)Ordered By: Jack Woods on 99-59-0086Kwandqwlvbiu [Mass/Vol]26.5 ng/mL.[facility] Comment on above:Follicular phase 0.1 - 0.9 Luteal phase 1.8 - 23.9 Ovulation phase 0.1 - 12.0 First trimester 11.0 - 44.3 Second trimester 25.4 - 83.3 Third trimester 58.7 - 214.0 Postmenopausal 0.0 - 0.1Performed at: [facility]SS[facility] CenterRjwdvc[address] [place], [place] [id number] Director: Jordin Muhammad, Phone: [phone].beta subunit [Units/volume] in Serum or PlasmaOrdered By: ANT Reardon on 85-58-3856IIF.beta subunit Qn12.64 m[IU]/mLBlanchard Valley Health System Bluffton HospitalComment on above:Approximate Approximate hCG Gestational Age Range (mIU/ml) (weeks)0.2-1 5-50 1-2 50-500 2-3 100-5,000 3-4 500-10,000 4-5 1,000-50,000 5-6 10,000-100,000 6-8 15,000-200,000 8-12 10,000-100,000HCG,Quantitativeon 50-99-5819FOZ,Foezbwudzbqo75.64 m[iU]/mL NormalThe [facility] Physician GroupComment on above:Result Comment: Approximate Approximate hCG Gestational Age Range (mIU/ml) (weeks) 0.2-1 5-50 1-2 50-500 2-3 100-5,000 3-4 500-10,000 4-5 1,000-50,000 5-6 10,000-100,000 6-8 15,000-200,000 8-12 10,000-100,000 PERFORMED BY: [facility] [address] [place] [address] PATHOLOGIST SUPERVISOR RECORDS CHANGE TO ANAYA M.D.Performed By: #### HCGQNT #### [facility] [address] [place] [address] USAOperative Reporton 80-14-7493Mpovyjsna Report [id number]#1.00TIFFCleveland Clinic Hillcrest HospitalQuick Strepon 03-21-2023S. pyogenes Org specific cx Ql (Throat)Negative [facility] INDOM Other Quick [facility] INDOM Other [facility] Auto Differentialon [id number] (Bld) [#/Vol]0.00 10*3/[employer] [facility] [place], KYBasophils/100 WBC (Bld)0 %0 - 2 %[employer] [facility] [place], KYDifferential TypeYESMKeenan Private Hospital [place], [place]YEosinophils (Bld) [#/Vol] 0.20 10*3/uLMermention [facility] [place], [place]YEosinophils/100 WBC (Bld)2 %0 - 5 %[facility]- [place], KYErythrocyte distribution width (RBC) [Ratio]12.6 %12.1 - 15.2 %[facility]- [place], USHAHematocrit (Bld) [Volume fraction]39.8 %36 - 46 %[facility]- [place], USHAHemoglobin (Bld) [Mass/Vol]13.8 g/dL12 - 16 g/dLAshtabula County Medical Center- [place], USHA Interpretation and review of laboratory resultsAbnormalAshtabula County Medical Center- [place], [place] Lymphocytes (Bld) [#/Vol]1.70 10*3/uLAshtabula County Medical Center- [place], KYLymphocytes/100 WBC (Bld)14 %Low15 - 40 %[facility]- [place], USHAMCH (RBC) [Entitic mass]31.5 pg26 - 34 pgAshtabula County Medical Center- [place], USHAMCHC (RBC) [Mass/Vol]34.6 g/dL31 - 37 g/dLAshtabula County Medical Center- [place], USHAMCV (RBC) [Entitic vol]91.2 fL80 - 100 fLAshtabula County Medical Center- [place], KYMonocytes (Bld) [#/Vol]0.60 10*3/[facility]- [place], USHAMonocytes/100 WBC (Bld)5 %4 - 8 % [facility]- [place], USHAPlatelet mean volume (Bld) [Entitic vol]NOT REPORTED6 - 12 fLAshtabula County Medical Center- [place], KYPlatelets (Bld) [#/Vol]NOT REPORTEDAshtabula County Medical Center- [place], USHA Platelets (Bld) [#/Vol]287 10*3/[facility]- [place], KYRBC (Bld) [#/Vol]4.37 10*6/uL4 - 5.2 m/[facility]- [place], KYRBC morphology finding Nom (Bld)NOT REPORTEDAshtabula County [facility]- [place], KYSegmented neutrophils/100 WBC (Bld)79 %High47 - 75 % [facility]- [place], KYSegs Absolute9.50HighAshtabula County Medical Center- [place], KYWBC (Bld) [#/Vol] 12.0 10*3/[facility]- [place], [place]WBC (Bld) [#/Vol]NOT REPORTEDper 100 WBCAshtabula County Medical Center- [place], KYWBC MorphologyNOT REPORTEDCincinnati [facility], [facility]ERC with Diffon [id number]. Basophil0.00 k/uLNormal0.0-0.2MOhioHealth [facility] on above:Performed By: #### CP, CDP #### [facility] [address] [phone] Log Sorting Supervisor: José Higgins.Neutrophil (Seg)9.50 k/uLHigh2.5-7.0[facility] on above:Performed By: #### CP, CDP #### [facility] [address] [phone] Log Sorting Supervisor: Maya Higgins Diff PerformedYESNormKettering Health Washington Township on above:Performed By: #### CP, CDP #### [facility] [address] [phone] Log Sorting Supervisor: Jonathan Chisholm MDBasophils/100 WBC (Bld)0 %Normal0-2MAshtabula County Medical CenterComment on above:Performed By: #### CP, CDP #### [facility] [address] [phone] Log Sorting Supervisor: Jonathan Chisholm MDEosinophils (Bld) [#/Vol]0.20 10*3/uLNormal 0.0-0.4[facility] on above:Performed By: #### CP, CDP #### [facility] [address] [place], [place] [phone] Log Sorting Supervisor: CHRISTINE Higginsosinophils/100 WBC (Bld)2 %Normal0-5[facility] on above:Performed By: #### CP, CDP #### [facility] [address] [place] [address] Log Sorting Supervisor: Jonathan Chisholm MDErythrocyte distribution width (RBC) [Ratio]12.6 %Fpkhfg48.1-15.2MAshtabula County Medical CenterComment on above:Performed By: #### CP, CDP #### [facility] [address] [phone] Log Sorting Supervisor: Jonathan Chisholm MDHematocrit (Bld) [Volume fraction]39.8 %Normal 36-46[facility] HospitalComment on above:Performed By: #### CP, CDP #### [facility] [address] [phone] Log Sorting Supervisor: Jonathan Chisholm MDHemoglobin (Bld) [Mass/Vol]13.8 g/dLNormal 12.0-16.0Prom[facility]edo HospitalComment on above:Performed By: #### CP, CDP #### [facility] [address] [phone] Log Sorting Supervisor: Jonathan Chisholm MDLymphocytes (Bld) [#/Vol]1.70 10*3/uLNormal 1.2-5.2MGerman Hospital HospitalComment on above:Performed By: #### CP, CDP #### [facility] [address] [phone] Log Sorting Supervisor: Jamie Higginsmphocytes/100 WBC (Bld)14 %Bnc31-15CrhokPromedica Toledo HospitalComment on above:Performed By: #### CP, CDP #### [facility] [address] [phone] Log Sorting Supervisor: MEETA HigginsCH (RBC) [Entitic mass]31.5 sjFvpofo18-22Yiuks Willard HospitalComment on above:Performed By: #### CP, CDP #### [facility] [address] [phone] Log Sorting Supervisor: AWA HigginsC (RBC) [Mass/Vol]34.6 g/cYRxpnsa98-68Xspey Willard HospitalComment on above:Performed By: #### CP, CDP #### [facility] [address] [place], [place] [phone] ([phone]) Log Sorting Supervisor: MEETA HigginsCV (RBC) [Entitic vol]91.2 mOPekcxq93-552YgkdxPromedica Toledo HospitalComment on above:Performed By: #### CP, CDP #### [facility] [address] [place], [place] [phone] ([phone]) Log Sorting Supervisor: MEETA Higginsonocytes (Bld) [#/Vol]0.60 10*3/uLNormal0.0-1.0 [facility] HospitalComaspirus keweenaw hospital on above:Performed By: #### CP, CDP #### [facility] [address] [place], [place] [phone] ([phone]) Log Sorting Supervisor: MEETA Higginsonocytes/100 WBC (Bld)5 %Normal4-8Prom[facility]edo HospitalComment on above:Performed By: #### CP, CDP #### [facility] [address] [place] [address] Log Sorting Supervisor: Zachary Higginsophil (Seg)79 %Ujvz11-37IywooPromedica Toledo HospitalComment on above:Performed By: #### CP, CDP #### [facility] [address] [place], [place] [phone] (552) Log Sorting Supervisor: Ynes Higginstebrain (Bld) [#/Vol]287 10*3/kJQkzcrc220-716 [facility] HospitalComaspirus keweenaw hospital on above:Performed By: #### CP, CDP #### [facility] [address] [place] [address] Log Sorting Supervisor: SONJA HigginsBC (Bld) [#/Vol]4.37 10*6/uLNormal4.0-5.2MAshtabula County Medical CenterComment on above:Performed By: #### CP, CDP #### [facility] [address] [place], [place] [phone] Log Sorting Supervisor: REED HigginsBC (Bld) [#/Vol]12.0 10*3/uLNormal4.5-13.5Prom[facility]edo HospitalComment on above:Performed By: #### CP, CDP #### [facility] [address] [place], [place] [phone] Log Sorting Supervisor: José Higgins.Imm.GranulocyteNOT REPORTEDNormal0.00-0.30 [facility] HospitalComment on above:Performed By: #### CP, CDP #### [facility] [address] [place] [address] Log Sorting Supervisor: Jonathan Chisholm MDImmature granulocytes (Bld) [#/Vol]NOT REPORTED Aplbie4MnxbkMercy Health – The Jewish Hospitalment on above:Performed By: #### CP, CDP #### [facility] [address] [phone] Log Sorting Supervisor: NAHID Higgins AutomatedNOT REPORTEDNormalPromedica Toledo HospitalComment on above:Performed By: #### CP, CDP #### [facility] [address] [phone] Log Sorting Supervisor: Ynes Higginsteserena mean volume (Bld) [Entitic vol]NOT REPORTEDNormal6.0-12.0[facility] HospitalComment on above:Performed By: #### CP, CDP #### [facility] [address] [place] [address] Log Sorting Supervisor: Ynes Higginstelets (Bld) [#/Vol]NOT REPORTEDNormalMercy Health – The Jewish Hospitalment on above:Performed By: #### CP, CDP #### [facility] [address] [place], [place] [phone] Log Sorting Supervisor: COURT Higgins morphology finding Nom (Bld)NOT REPORTED NormalMercy Hernesto HospitalComment on above:Performed By: #### CP, CDP #### [facility] [address] [place] [address] Log Sorting Supervisor: REED Higgins MorphologyNOT REPORTEDNormalPromedica Toledo HospitalComment on above:Performed By: #### CP, CDP #### [facility] [address] [place] [address] Log Sorting Supervisor: HODAN Higginsbeaver valley hospital Metabolic Profon 02-01-2019(cont.)Normal [facility] HospitalComaspirus keweenaw hospital on above:Result Comment: Average GFR for 20-29 years old: 116 mL/min/1.73sq m Chronic Kidney Disease: <60 mL/min/1.73sq m Kidney failure: <15 mL/min/1.73sq m eGFR calculated using average adult body mass. Additional eGFR calculator available at: http://www.M-DAQ.Burstly/multiple_crcl_2011.htmPerformed By: #### CP, CDP #### [facility] [address] [place] [address] Log Sorting Supervisor: Jonathan Chisholm MDAlbumin [Mass/Vol]4.1 g/dLNormal3.5-5.2Mcommunity memorial hospitaly [facility] Behavioral HealthComment on above:Performed By: #### CP, CDP #### [facility] [address] [place] [address] Log Sorting Supervisor: Hector Higginsline Phos63 U/GMvxldc41-219BbqyePromedica Toledo HospitalComment on above:Performed By: #### CP, CDP #### [facility] [address] [place] [address] Log Sorting Supervisor: Jonathan Chisholm MDALT [Catalytic activity/Vol]8 U/LNormal5-33[facility] on above:Performed By: #### CP, CDP #### [facility] [address] [place] [address] Log Sorting Supervisor: Jonathan Chisholm MDAnion gap [Moles/Vol]12 mmol/LNormal9-17[facility] HospitalComment on above:Performed By: #### CP, CDP #### [facility] [address] [place], [place] [phone] Log Sorting Supervisor: Jonathan Chisholm MDAST [Catalytic activity/Vol]13 U/LNormal<32[facility] HospitalComment on above:Performed By: #### CP, CDP #### [facility] [address] [phone] Log Sorting Supervisor: Jonathan Chisholm MDBilirubin Ql (U)0.40 mg/dLNormal0.30-1.20[facility] HospitalComment on above:Performed By: #### CP, CDP #### [facility] [address] [phone] Log Sorting Supervisor: Jonathan Chisholm MDBUN/CRE Hoaqr07Ifcoct1-33Pxhkg [facility] Comment on above:Performed By: #### CP, CDP #### [facility] [address] [phone] Log Sorting Supervisor: Jonathan Chisholm MDCalcium [Mass/Vol]9.1 mg/dLNormal8.6-10.4[facility] HospitalComment on above:Performed By: #### CP, CDP #### [facility] [address] [phone] Log Sorting Supervisor: Jonathan Chisholm, MDChloride [Moles/Vol]103 mmol/VSvnscm79-097BpnzyPromedica Toledo HospitalComment on above:Performed By: #### CP, CDP #### [facility] [address] [place], [place] [phone] Log Sorting Supervisor: Jonathan Chisholm, MDCO2 [Moles/Vol]24 mmol/TEuwakz66-13PrwewPromedica Toledo HospitalComment on above:Performed By: #### CP, CDP #### [facility] [address] [place], [place] [phone] Log Sorting Supervisor: HODAN Higginsreatinine [Mass/Vol]0.61 mg/dLNormal0.50-0.90 [facility] HospitalComment on above:Performed By: #### CP, CDP #### [facility] [address] [phone] Log Sorting Supervisor: Jonathan Chisholm MDGFR, Amer>60Normal>60Mer[facility]ckett HospitalComment on above:Performed By: #### CP, CDP #### [facility] [address] [place] [address] Log Sorting Supervisor: Jonathan Chisholm MDGFR,non Amer>60Normal>60Mer[facility] Crockett HospitalComment on above:Performed By: #### CP, CDP #### [facility] [address] [phone] Log Sorting Supervisor: Jonathan Chisholm MDGlucose [Mass/Vol]94 mg/fULoqcbm24-59Dbsad Willard HospitalComment on above:Performed By: #### CP, CDP #### [facility] [address] [phone] Log Sorting Supervisor: GAGE Higginsotassium [Moles/Vol]3.8 mmol/LNormal3.7-5.3Mcommunity memorial hospitaly Crockett HospitalComment on above:Performed By: #### CP, CDP #### [facility] [address] [place] [address] Log Sorting Supervisor: Jonathan Chisholm MDProtein [Mass/Vol]7.1 g/dLNormal6.4-8.3Mercy Crockett HospitalComment on above:Performed By: #### CP, CDP #### [facility] [address] [place], [place] 00485[address] Log Sorting Supervisor: Jonathan Chisholm MDSodium [Moles/Vol]139 mmol/YDcztli767-935DkyvhPromedica Toledo HospitalComment on above:Performed By: #### CP, CDP #### [facility] [address] [place] [address] Log Sorting Supervisor: Jonathan Chisholm MDUrea nitrogen [Mass/Vol]8 mg/dLNormal6-20[facility] HospitalComment on above:Performed By: #### CP, CDP #### [facility] [address] [place] [address] Log Sorting Supervisor: Jonathan Chisholm MDAlbumin/Globulin [Mass ratio]NOT REPORTEDNormal 1.0-2.5[facility] HospitalComment on above:Performed By: #### CP, CDP #### [facility] [address] [place] [address] Log Sorting Supervisor: KARLENE Higginstaging:NOT REPORTEDNormalPromedica Toledo Hospital Comment on above:Performed By: #### CP, CDP #### [facility] [address] [place] [address] Log Sorting Supervisor: Jonathan Chisholm [facility] TISHOMINGOomprehensive Metabolic Panelon [id number] [Mass/Vol]4.1 g/dL3.5 - 5.2 g/dLAshtabula [facility]- [place], KYAlbumin/Globulin [Mass ratio]NOT REPORTEDAshtabula [facility]- [place], KYALP [Catalytic activity/Vol]63 U/L35 - 104 U/LMercy Health- [place], KYALT [Catalytic activity/Vol]8 U/L5 - 33 U/LMercy Health- [place], KYAnion gap [Moles/Vol]12 mmol/L9 - 17 mmol/LMercy Health- [place], KYAST [Catalytic activity/Vol]13 U/L<32[facility]- [place], KYBilirubin Ql (U)0.40 mg/dL 0.3 - 1.2 mg/dLMer Health- [place], KYBun/Cre Jwekm66Lhfmc Health- [place], KYCalcium [Mass/Vol]9.1 mg/dL8.6 - 10.4 mg/dLMercy Health- [place], KYChloride [Moles/Vol]103 mmol/L98 - 107 mmol/[facility], KYCO2 [Moles/Vol]24 mmol/L20 - 31 mmol/L [facility], KYCreatinine [Mass/Vol]0.61 mg/dL0.5 - 0.9 mg/dLCincinnati Children's Hospital [facility], KYGFR >60>60 mL/minCincinnati [facility], KYGFR Non->60>60 mL/minCincinnati [facility], KYGFR/1.73 sq M predicted among non- blacks MDRD (S/P/Bld) [Vol rate/Area]NOT REPORTEDCinc[facility], KYGFR/1.73 sq M predicted among non-blacks MDRD (S/P/Bld) [Vol rate/Area][facility], [place] Comment on above:Average GFR for 20-29 years old: 116 mL/min/1.73sq m Chronic Kidney Disease: <60 mL/min/1.73sq m Kidney failure: <15 mL/min/1.73sq m eGFR calculated using average adult body mass. Additional eGFR calculator available at: http://www.Membersuite/multiple_crcl_2011.htm Glucose [Mass/Vol]94 mg/dL70 - 99 mg/dLCincinnati Children's Hospital [facility] Center, KYPotassium [Moles/Vol] 3.8 mmol/L3.7 - 5.3 mmol/[facility], KYProtein [Mass/Vol]7.1 g/dL6.4 - 8.3 g/dLCincinnati Children's Hospital [facility] Center, KYSodium [Moles/Vol]139 mmol/L135 - 144 mmol/[facility], KYUrea nitrogen [Mass/Vol]8 mg/dL6 - 20 mg/dLCincinnati Children's Hospital [facility] Center, [place] HCG, ,Urineon [id number] HCG ( test) Ql (U)NegativeNormal NEGPromedica Toledo HospitalComment on above:Performed By: #### [facility] [place], UA #### [facility] [address] [place] [address] Log Sorting Supervisor: Jonathan Phan, MDMicroscopic Urinalysison 04-31-9084Ienqwweki, UA NOT REPORTEDNoneMercy Health- [place], KYBacteria, UA3+AbnormalNoneMercy [...] (Bld) [#/Vol]NOT REPORTEDMercy Health- [place], KYPregnancy, Urineon [id number] HCG ( test) Ql (U)NegativeNEGATIVEMercy Health- [place], KYUrinalysison [id number] UrineNegativeNEGATIVEMercy Health- [place], [place] Color, UAYELLOWYELLOWMercy Health- [place], KYGlucose, UrNegativeNEGATIVEMercy Health- [place], KYInterpretation and review of laboratory resultsAbnormalMercy Health- [place], KYKetones Ql (U)TRACEAbnormalNEGATIVEMercy Health- [place], KYLeukocyte esterase Test strip Ql (U)NegativeNEGATIVEMercy Health- [place], KYNitrite, Urine NegativeNEGATIVEMercy Health- [place], KYpH, UA6.0[facility]- [place], KYProtein (U) [Mass/Vol]1+AbnormalNEGATIVEMercy Health- [place], KYSpecific Higganum, UA1.020[facility]- [place], KYTurbidity UACLEARCLEARMercy Health- [place], KYUrinalysis CommentsMercy Health- [place], KYUrine Hgb3+AbnormalNEGATIVEMercy Health- [place], KYUrobilinogen, UrineNormalNormSt. Elizabeth Hospital, KYUrinalysis, Routineon [id number] Acid,UrTRACEAbnormalNEGPromedica Toledo HospitalComaspirus keweenaw hospital on above:Performed By: #### [facility] [place], UA #### [facility] [address] [place] [address] Log Sorting Supervisor: Jonathan Chisholm MDBilirubin, SemiQt,UrNegativeNormalNEGPromedica Toledo HospitalComment on above:Performed By: #### [facility] [place], UA #### [facility] [address] [place] [address] Log Sorting Supervisor: HODAN Higginsolor (U)YELLOWNoBerger Hospital Comment on above:Performed By: #### [facility] [place], UA #### [facility] [address] [place] [address] Log Sorting Supervisor: HODAN HigginsommentNoWayne HospitalComaspirus keweenaw hospital on above:Performed By: #### [facility] [place], UA #### [facility] [address] [place] [address] Log Sorting Supervisor: Jonathan Chisholm MDGlucose Ql (U)NegativeNormalWilson Memorial Hospital on above:Performed By: #### [facility] [place], UA #### [facility] [address] [place] [address] Log Sorting Supervisor: Jonathan Chisholm MDHemoglobin, Ur3+AbnormalMiddletown Hospital Comment on above:Performed By: #### [facility] [place], UA #### [facility] [address] [place] [address] Log Sorting Supervisor: Jonathan Chisholm MDLeukocyte esterase Test strip Ql (U)Negative NormalNEGPromedica Toledo HospitalComaspirus keweenaw hospital on above:Performed By: #### [facility] [place], UA #### [facility] [address] [place] [address] Log Sorting Supervisor: Elizabeth Higgins,UrNegativeNormSelect Medical Special[facility] Comment on above:Performed By: #### [facility] [place], UA #### [facility] [address] [place] [address] Log Sorting Supervisor: Gage Higgins (U)6.0 [pH]Normal5.0-8.0[facility] Comment on above:Performed By: #### [facility] [place], UA #### [facility] [address] [place] [address] Log Sorting Supervisor: GAGE Higginskindred hospital at morris Ql (U)1+AbnormalMiddletown Hospital Comment on above:Performed By: #### [facility] [place], UA #### [facility] [address] [place] [address] Log Sorting Supervisor: KARLENE Higginspecific gravity (U) [Rel density]1.020Normal 1.005-1.030Prom[facility]ica Toledo HospitalComment on above:Performed By: #### [facility] [place], UA #### [facility] [address] [place] [address] Log Sorting Supervisor: ALFREDO HigginsurbidityCLEARNoalCGenesis Hospital Comment on above:Performed By: #### [facility] [place], UA #### [facility] [address] [place] [address] Log Sorting Supervisor: Yrn HigginsUrNormalNormalSelect Medical Specialty Hospital - TrumbullComment on above:Performed By: #### [facility] [place], UA #### [facility] [address] [place] [address] Log Sorting Supervisor: Jonathan Chisholm MDUrinalysis,Microon 02-01-2019-----NormalMercy Crockett HospitalComment on above:Performed By: #### [facility] [place], UA #### [facility] [address] [place] [address] Log Sorting Supervisor: Jonathan Chisholm MDBacteria LM.HPF (Urine sed) [#/Area]3+Abnormal NONEMerParkview Health Bryan Hospital HospitalComment on above:Performed By: #### [facility] [place], UA #### [facility] [address] [place] [address] Log Sorting Supervisor: Jonathan Chisholm MDEpithelial cells LM.HPF (Urine sed) [#/Area]20 TO 50NormalDayton Osteopathic Hospital HospitalComment on above:Performed By: #### [facility] [place], UA #### [facility] [address] [place] [address] Log Sorting Supervisor: MEETA Higginsucus Strands2+AbnormalNONEMeMercy Memorial Hospital Comment on above:Performed By: #### [facility] #### [facility] [address] [place] [address] Log Sorting Supervisor: SONJA HigginsBC (U) [#/Vol]2 TO 2Nljvxi2-6Eqvao [facility] Behavioral HealthComment on above:Performed By: #### [facility] [place], UA #### [facility] [address] [place] [address] Log Sorting Supervisor: Jonathan Chisholm MDWBC (U) [#/Vol]2 TO 2Ytdpnq2Fwalz [facility]al HealthComment on above:Performed By: #### [facility] [place], UA #### [facility] [address] [place] [address] Log Sorting Supervisor: Jonathan Chisholm MDAmorphous sediment LM Ql (Urine sed)NOT REPORTED NormalNONEMeMemorial Health System HospitalComment on above:Performed By: #### [facility] [place], [place]A #### [facility] [address] [place] [address] Log Sorting Supervisor: HODAN Higginsasts LM.LPF (Urine sed) [#/Area]NOT REPORTED NormalMercy Crockett HospitalComment on above:Performed By: #### [facility] [place], UA #### [facility] [address] [place] [address] Log Sorting Supervisor: HODAN Higginsrystals LM Nom (Urine sed)NOT REPORTEDNormalNONE [facility] HospitalComment on above:Performed By: #### [facility] [place], UA #### [facility] [address] [place] [address] Log Sorting Supervisor: Jonathan Chisholm MDEpithelial, RenalNOT JEGYENEKGroznx9Hepxc [facility] HospitalComment on above:Performed By: #### [facility] [place], UA #### [facility] [address] [place] [address] Log Sorting Supervisor: Jonathan Chisholm MDOther ObservationsNOT REPORTEDNormalNREQDayton Osteopathic Hospital HospitalComment on above:Performed By: #### [facility] [place], UA #### [facility] [address] [place] [address] Log Sorting Supervisor: Jonathan Chisholm MDTrichomonasNOT REPORTEDNormalNONEMercAdams County Regional Medical Center HospitalComment on above:Performed By: #### UMICANeville [facility] [place], UA #### [facility] [address] [place] [address] Log Sorting Supervisor: Jonathan Chisholm MDYeast LM Ql (Urine sed)NOT REPORTEDNormalNONE [facility] HospitalComment on above:Performed By: #### [facility] [place], UA #### [facility] [address] [place] [address] Log Sorting Supervisor: Jonathan Chisholm MD Vital Signs Date TimeVital SignValuePerforming XreiutrqjLvjianav83-49-6859 14:49-0400Body mass index (BMI) [Ratio]30.55 kg/z9GodxppsaaHzel Romero SENIOR SUPPLIER QUALITY ENGINEER Work Phone: [phone] [place], [place] [address]Biggjkeagy00-95-1880 14:49-0400Body kpajri94.84 kgKrdayton Romero SENIOR SUPPLIER QUALITY ENGINEER Work Phone: [phone])[facility] [place], [place] [address]Ecmtshgkfu17-24-1333 14:49-0400Diastolic blood tloebyga46 mm[Hg]Hazeldayton Romero SENIOR SUPPLIER QUALITY ENGINEER Work Phone: [phone])[facility] [place], [place] [address]Stekyvxzpa98-31-2180 14:49-0400Systolic blood ehkgmmyn823 mm[Hg]Hazeldayton Romero SENIOR SUPPLIER QUALITY ENGINEER Work Phone: [phone])[facility] [place], [place] [address]Zbueufdqro62-07-9456 14:14-0400Body mass index (BMI) [Ratio]30.67 kg/p0Anpku Peggy DO Work Phone: [phone])[facility] [place], [place] [address]Wopdnvfibl39-52-9150 14:14-0400Body pkxqwi68.18 kgCorey Peggy DO Work Phone: [phone])[facility] [place], [place] [address]Joeumyxyza78-36-4068 14:14-0400Diastolic blood mm[Hg]Jack Peggy DO Work Phone: [phone])[facility] [place], [place] [address]Ecwvsmihgh35-01-1621 14:14-0400Systolic blood fawwcbut898 mm[Hg]Jack Peggy DO Work Phone: [phone])[facility] [place], [place] [address]Awnqqfofnw28-55-3049 09:59-0400Body mass index (BMI) [Ratio]30.18 kg/s7UayoaxarHazel Romero SENIOR SUPPLIER QUALITY ENGINEER Work Phone: 1(286)[facility] [place], [place] [address]Glvbkxqnjc65-50-9154 09:59-0400Body .82 kgKrvenancioa Heather SENIOR SUPPLIER QUALITY ENGINEER Work Phone: 1(471)[facility] [place], [place] [address]Vjisgnynor06-40-0932 09:59-0400Diastolic blood vxfvujoe83 mm[Hg]Hazel Romero SENIOR SUPPLIER QUALITY ENGINEER Work Phone: [facility] HospitalRenivcyheb80-59-0026 09:59-0400Systolic blood rcvwncem938 mm[Hg]Hazel Romero SENIOR SUPPLIER QUALITY ENGINEER Work Phone: [phone] [place], [place] [address]Zmvcuetiln13-92-3058 08:54-0400Body mass index (BMI) [Ratio]30.22 kg/m2Jayla DA SILVA Work Phone: [phone] [place], [place] [address]Mmwcgpplpi41-23-7356 08:54-0400Body lyfeuu61.94 kgAmy Cali DA SILVA Work Phone: [place] [address]Gepwupllij09-75-1563 08:54-0400Diastolic blood mm[Hg]Jayla DA SILVA Work Phone: [phone] [place], [place] [address]Ntletrynfq77-04-2106 08:54-0400Systolic blood ptiwtqak176 mm[Hg]Jayla DA SILVA Work Phone: [phone] [place], [place] [address]Ncyvwqnfbn21-51-9657 09:38-0400Body mass index (BMI) [Ratio]29.67 kg/o1Bmolk Peggy DO Work Phone: [phone] [place], [place] [address]Hngrtzjxyf47-96-4268 09:38-0400Body avcbkg66.37 kgCorey Peggy DO Work Phone: 1([phone])693-[address] [place], [place] [address]Bjrkbyylgh61-92-2283 09:38-0400Diastolic blood wzffgkac14 mm[Hg]Jack Peggy DO Work Phone: 1([phone])795-[address] [place], [place] [address]Hmoivdrhlc95-00-6018 09:38-0400Systolic blood omlbvqnr691 mm[Hg]Jack Peggy DO Work Phone: [phone] [place], [place] [address]Guavehdixh73-65-4345 14:30-0400Body mass index (BMI) [Ratio]29.83 kg/t0Itxzy Peggy DO Work Phone: 1([phone] [place] [address]-19-2025 14:30-0400Body sfhlhi02.83 kgCorey Peggy DO Work Phone: [facility] HospitalTkriqjidnp26-09-8713 14:30-0400Diastolic blood xnlzensy58 mm[Hg]Jack Peggy DO Work Phone: [facility] HospitalGntgctpisq54-23-2014 14:30-0400Systolic blood lupwuvtr793 mm[Hg]Jack Peggy DO Work Phone: [facility] HospitalWynfhicjpc27-73-7214 13:26-0400Body mass index (BMI) [Ratio]28.29 kg/m2Jayla DA SILVA Work Phone: [facility] HospitalKjfakvdoci69-97-7616 13:26-0400Body nfialx46.49 kgJayla DA SILVA Work Phone: [facility] HospitalArdzquuxrj86-21-4134 13:26-0400Diastolic blood gzscxjoo55 mm[Hg]Jayla DA SILVA Work Phone: [facility] HospitalDhrhfaxaqq30-84-0726 13:26-0400Systolic blood rkpfuxvw690 mm[Hg]Jayla DA SILVA Work Phone: [facility] HospitalVemsyigcpc66-09-2039 08:47-0400Body qadmua140.6 cmGuadalupe Peres MD Work Phone: [phone] [place], [place] 2283507-01-2025 08:47-0400Body mass index (BMI) [Ratio]27.48 kg/m2Guadalupe Peres MD Work Phone: [phone] [place], [place] 2283507-01-2025 08:47-0400Body rvqiir02.2 kgGuadalupe Peres MD Work Phone: [phone] [place], [place] 2283507-01-2025 08:47-0400Diastolic blood mm[Hg]Guadalupe Peres MD Work Phone: [phone] [place], [place] 2283507-01-2025 08:47-0400Heart rate 90 /Zahra Peres MD Work Phone: [phone] [place], [place] 2283507-01-2025 08:47-0400Systolic blood xwfyatll449 mm[Hg]Guadalupe Peres MD Work Phone: [phone] [place], [place] 2283506-24-2025 14:10-0400Body mass index (BMI) [Ratio]27.02 kg/e6Wfdsb Peggy DO Work Phone: [phone])[address] [place], [place] 3004506-24-2025 14:10-0400Body utjunb26.93 kgCorey Peggy DO Work Phone: [phone])[address] [place], [place] 3004506-24-2025 14:10-0400Diastolic blood lpjweslp07 mm[Hg]Jack Peggy DO Work Phone: [phone] [place], [place] [address]Mxkfsgtvug77-77-6284 14:10-0400Systolic blood chiwmomv799 mm[Hg]Jack Peggy DO Work Phone: 1(333)[address] [place], [place] 3004505-27-2025 14:35-0400Body mass index (BMI) [Ratio]27.41 kg/t5Kyqls Peggy DO Work Phone: 1(017)[address] [place], [place] 3004505-27-2025 14:35-0400Body ukrdmb67.02 kgCorey Peggy DO Work Phone: 1(066)[address] [place], [place] 3004505-27-2025 14:35-0400Diastolic blood hlqsgeaf01 mm[Hg]Jack Peggy DO Work Phone: 1(851)[address] [place], [place] 3004505-27-2025 14:35-0400Systolic blood whpjytsa550 mm[Hg]Jack Peggy DO Work Phone: 1(196)[address] [place], [place] 3004505-08-2025 13:34-0400Body mass index (BMI) [Ratio]26.95 kg/m2[facility]05-08-2025 13:34-0400Body ocuhib54.75 [facility]Jeff[facility]05-08-2025 13:34-0400Diastolic blood fajktzhw65 mm[Hg][facility]05-08-2025 13:34-0400Systolic blood trirqidi118 mm[Hg][facility]11-27-2024 11:05-0500Body mass index (BMI) [Ratio]27.6 kg/r1Hgtjc Peggy DO Work Phone: 1(069)[address] [place], [place] 3004511-27-2024 11:05-0500Body kbxleo56.56 kgCorey Peggy DO Work Phone: [phone] [place], [place] [address]Hvtbvibnaj13-47-3581 11:05-0500Diastolic blood zvzqsojh71 mm[Hg]Jack Peggy DO Work Phone: [facility] HospitalMirjqtdhwb78-31-8624 11:05-0500Systolic blood mm[Hg]Jack Peggy DO Work Phone: [facility] HospitalDvghwhcvhr99-73-9041 13:52-0400Body qciynv099.6 cmCorey Peggy DO Work Phone: [facility] HospitalRyhoqrfrey89-33-0520 13:52-0400Body mass index (BMI) [Ratio]26.6 kg/u9Bchcd Peggy DO Work Phone: [facility] HospitalRpgdimjqfs88-14-7754 13:52-0400Body novccw69.75 kgCorey Peggy DO Work Phone: [facility] HospitalOeisilfjwz08-61-2866 13:52-0400Diastolic blood igvbjwze14 mm[Hg]Jack Peggy DO Work Phone: [facility] HospitalTelijtryqe19-25-6978 13:52-0400Systolic blood yfkjndes923 mm[Hg]Jack Peggy DO Work Phone: [facility] HospitalNoobqwqnip69-89-5703 18:10-0500Body blaldy547.64 cmAcelestina Anton Other [employer] Other 11-07-2023 18:10-0500Body mass index (BMI) [Ratio] 26.95 kg/u8NcikzRina Anton Other [employer] Other 11-07-2023 18:10-0500Body rkfvxnkhosq15.9 [degF]Rina Anton Other [employer] Other 11-07-2023 18:10-0500Body hlfeqt39.75 kgRina Anton Other [employer] Other 11-07-2023 18:10-0500Respiratory rate18 /minRina Anton Other [employer] Other 11-07-2023 18:10-6136FpK1% (BldA) [Mass fraction]97 % Rina Anton Other [employer] Other 219165-16-8644 06:41-0400BP Indcefcgv46 mm[Hg][facility] [place] [facility], [place]74-80-1811 06:41-0400BP Suwtzrin764 mm[Hg][facility] [place] [facility], DJ05-82-8545 06:41-0400Pulse (Heart Rate)64 /min [facility] [place] [facility], ZO43-34-2902 04:30-0400Body Mvwofczbvri11.01 [degF][facility], OI83-02-8040 04:30-0400Body rzhzbu19.92 kgCap[facility] [place] [facility], PR54-16-1572 04:30-0400Pulse Qqovyvyh558 % [facility], JE66-12-2002 04:30-0400Respiratory Rate18 /min [facility] HospitalCon[facility], [place] Encounters Encounter DateEncounter TypeCare ProviderFacilityStart: 03-19-2025 End: 78-72-1171Yhgpnfzni Result EncounterCorey Peggy DO Work Phone: noms External Department UnsolicitedStart: 03-19-2025 End: 32-06-2569Uptmyrdww Result EncounterCorey Peggy DO Work Phone: noms External Department UnsolicitedStart: 03-17-2025 End: 33-25-4557Qczphikbp Result EncounterHazel Romero NP Work Phone: noms External Department UnsolicitedStart: 03-17-2025 End: 89-29-6781Bzlqpzdmc Result EncounterHazel Romero NP Work Phone: no External Department UnsolicitedStart: 03-12-2025 End: 73-70-8806Jfasgtaf flow sheetKristina Heather SENIOR SUPPLIER QUALITY ENGINEER Work Phone: [facility] OBGYNComment on above:Hemorrhoids, unspecified hemorrhoid type (Primary Dx); Third trimester ([facility]); 33 weeks gestation of ([facility])Start: 03-12-2025 End: 38-46-3240rhgwxthotnDWQOXYDU EBERLYNot AvailableStart: 03-12-2025 End: 96-51-4009Extkek flowsheetKristina Heather SENIOR SUPPLIER QUALITY ENGINEER Work Phone: [facility] [place] OBGYNStart: 03-12-2025 End: 82-46-3279Aheczq flowsheetKristina Heather SENIOR SUPPLIER QUALITY ENGINEER Work Phone: [facility]BGYNStart: 02-27-2025 End: 49-47-5768vpttnelgecJPTBD FAZIONot AvailableStart: 02-25-2025 End: 38-09-3139Jftyhm flowsheetCorey Peggy DO Work Phone: [facility]BGYNStart: 02-25-2025 End: 86-84-3506Nmjzcn flowsheetCorey Peggy DO Work Phone: [facility] [place] [facility]BGYNStart: 02-25-2025 End: 16-85-5590Giijjixu flow sheetCorey Peggy DO Work Phone: [facility] OBGYNComment on above:Third trimester ([facility]); 31 weeks gestation of ([facility]); POTS (postural orthostatic tachycardia syndrome); Pain of right lower extremityStart: 02-25-2025 End: 47-41-0268sfrcakvocdIVUMQ FAZIONot AvailableStart: 02-11-2025 End: 05-65-2365Zzmrsf flowsheetKristina Heather SENIOR SUPPLIER QUALITY ENGINEER Work Phone: [facility] [place] [facility]BGYNStart: 02-11-2025 End: 00-32-7377Qwonfk flowsMoedayton Heather PURCELL Work Phone: [facility] [facility]BGYNStart: 02-11-2025 End: 24-99-3646Igtgizxc flow Lea Sanchezerly SENIOR SUPPLIER QUALITY ENGINEER Work Phone: [facility] [place] OBGYNComment on above: size inconsistent with dates ([facility]) (Primary Dx); Third trimester ([facility]); 29 weeks gestation of ([facility])Start: 02-11-2025 End: 58-25-4664wnamydkvwqZBMUDVQP EBBANDARNot AvailableStart: 01-29-2025 End: 10-93-6669Sokpdkoum Result EncounterJayla DA SILVA Work Phone: [facility] External Department UnsolicitedStart: 01-29-2025 End: 81-16-6278Slbuwgavo Result EncounterJayla DA SILVA Work Phone: [facility] External Department UnsolicitedStart: 01-28-2025 End: 31-59-6606Tyxuln Izzy DA SILVA Work Phone: [facility] [place] OBGYNStart: 01-28-2025 End: 85-24-5989Pcnrbp Izzy DA SILVA Work Phone: [facility] [facility]BGYNStart: 01-28-2025 End: 29-01-5760Zjwntkhc flow Nathaniel DA SILVA Work Phone: [facility] [place] OBGYNComment on above:Second trimester ([facility]); 27 weeks gestation of ([facility]); Elevated glucose tolerance testStart: 01-28-2025 End: 35-55-5379labcummmceGMK RAMEYNot AvailableStart: 01-27-2025 End: 90-40-7008Zhzpdmgib Result EncounterCorey Peggy DO Work Phone: [facility] External Department UnsolicitedStart: 01-27-2025 End: 01-68-3864Fvtplhbio Result EncounterCorey Peggy DO Work Phone: [facility] External Department UnsolicitedStart: 01-24-2025 End: 66-76-8116ghuohsjruuSKZLCAultman Alliance Community Hospitaltart: 01-21-2025 End: 43-12-9688Fjvatywwz Result EncounterJayla DA SILVA Work Phone: [facility] External Department UnsolicitedStart: 01-21-2025 End: 56-02-5783Oanxhwzvz Result EncounterJayla DA SILVA Work Phone: [facility] External Department UnsolicitedStart: 01-16-2025 End: 67-94-2637Vqjsry flowsheetCorey Peggy DO Work Phone: [facility] [place] [facility]BGYNStart: 01-16-2025 End: 89-48-4731Kacjni flowsheetCorey Peggy DO Work Phone: [facility] [place] [facility]BGYNStart: 01-16-2025 End: 04-73-4248Hiooiezn flow sheetCorey Peggy DO Work Phone: [facility] [place] OBGYNComment on above:25 weeks gestation of ([facility]); Second trimester ([facility]); Palpitations; Syncope, unspecified syncope type; Gastroesophageal reflux in ([facility])Start: 01-16-2025 End: 54-32-8215ekcuygbxcbIWGHK FAZIONot AvailableStart: 01-07-2025 End: 80-44-0960Bduurl Izzy DA SILVA Work Phone: [facility] [facility]BGYNStart: 01-07-2025 End: 23-60-9786Xbywyx Izzy DA SILVA Work Phone: [facility] [place] [facility]BGYNStart: 01-07-2025 End: 64-65-8253Vnegaciv flow sheetJayla DA SILVA Work Phone: [facility] [place] OBGYNComment on above:Second trimester ([facility]); 23 weeks gestation of ([facility]); Palpitations; TachycardiaStart: 01-07-2025 End: 96-23-8680myeavnyvurYZV RAMEYNot AvailableStart: 12-31-2024 End: 36-95-8581Lkrlgbtd flow sheetCorey Peggy DO Work Phone: [facility] [place] OBGYNComment on above:Second trimester ([facility]); 23 weeks gestation of ([facility]); Diabetes mellitus screeningStart: 12-31-2024 End: 46-09-7641gkfewqgsciCLIEI FAZIONot AvailableStart: 12-31-2024 End: 13-25-5208Syehrb flowsheetCorey Peggy DO Work Phone: [facility] [place] [facility]BGYNStart: 12-31-2024 End: 39-44-4019Rurcfq flowsheetCorey Peggy DO Work Phone: [facility] [place] [facility]BGYNStart: 12-10-2024 End: 04-83-1138expbjllaqrXTSVG R FAZIOProMedica [facility] HospitalStart: 12-03-2024 End: 35-19-8871Onbind flowsheetJayla DA SILVA Work Phone: [facility] OBStart: 12-03-2024 End: 05-13-7263Kvrseu flowsheetJayla DA SILVA Work Phone: [facility] OBStart: 12-03-2024 End: 33-73-6354Vwdvqblw flow sheetJayla DA SILVA Work Phone: [facility] OBComment on above:Second trimester ([facility]); 19 weeks gestation of ([facility])Start: 12-03-2024 End: 39-28-7045gunrafmzfmEBX RAMEYNot AvailableStart: 11-12-2024 End: 45-89-5015Jwzuai consultation new/estab patient 58 Zahra Peres MD Work Phone: [phone]-[facility]i [facility] Comment on above:Adnexal mass (Primary Dx); 16 weeks gestation of ; Uterine fibroids affecting in second trimester; Localized swelling of right lower extremityStart: 11-12-2024 End: 04-53-1671Fkfenl OnlyAmy Fabrice LPNMaternal- [facility] at [facility] CampusComment on above:Adnexal mass (Primary Dx); Uterine fibroids affecting in second trimester; Localized swelling of right lower extremityStart: 11-05-2024 End: 87-78-6598Wiiziu flowsheetCorey Peggy DO Work Phone: [facility] BCP OBStart: 11-05-2024 End: 26-85-8796Swkyut flowsheetCorey Peggy DO Work Phone: [facility] BCP OBStart: 11-05-2024 End: 51-57-1140Irqkykemc Result EncounterCorey Peggy DO Work Phone: noms External Department UnsolicitedStart: 11-05-2024 End: 81-82-5195Nnvrdkft Result EncounterCorey Peggy DO Work Phone: noms External Department UnsolicitedStart: 11-05-2024 End: 80-47-3164Ofmaoep encounter procedureCorey Peggy DO Work Phone: [facility] Work Phone: Start: 11-05-2024 End: 66-52-0648Hoaxvwib preventive med est patient 18-39 yrsCorey Peggy DO Work Phone: noms BCP OBComment on above:Well woman exam with routine gynecological exam; Second trimester ([facility]); 15 weeks gestation of ([facility]); Vaginal discharge; STD exposureStart: 11-05-2024 End: 46-05-6513cvqabmzpcfIdour [facility] Work Phone: Start: 11-05-2024 End: 43-51-0497Vnaisrwl ReferredCorey Peggy-LAB Path [facility] [place] HospStart: 10-08-2024 End: 66-16-8359Nzuvgebc flow sheetCorey Peggy DO Work Phone: noms BCP OBComment on above:11 weeks gestation of ; First trimester ; Other constipation; Gastroesophageal reflux in pregnancyStart: 10-08-2024 End: 80-07-2498kryvwtgcqiBOYUM FAZIONot AvailableStart: 10-08-2024 End: 02-68-7116Sjpkep flowsheetCorey Peggy DO Work Phone: NOKY BCP OBStart: 10-08-2024 End: 58-09-9262Qohuir flowsheetCorey Peggy DO Work Phone: NOED BCP OBStart: 09-24-2024 End: 96-33-9904Sdkrwkggm Result EncounterCorey Peggy DO Work Phone: [facility] External Department UnsolicitedStart: 09-24-2024 End: 87-08-2881Vhbgivuxm Result EncounterCorey Peggy DO Work Phone: noms External Department UnsolicitedStart: 09-19-2024 End: 25-49-6925Caqswh outpatient visit 5 minutesNoms Bcp Ob Peggy NurseNOMS BCP OBComment on above:[place]: 0j6sDkrju: 09-19-2024 End: 26-97-5191yewftethtyRXSQR FAZIONot AvailableStart: 08-28-2024 End: 97-81-5222wuacghblsfUYKVE FAZIONot AvailableStart: 08-26-2024 End: 87-87-5661Upslhkwss Result EncounterCorey Peggy DO Work Phone: NOHR External Department UnsolicitedStart: 08-26-2024 End: 52-98-7532Ippxiivxv Result EncounterCorey Peggy DO Work Phone: NOOH External Department UnsolicitedStart: 08-24-2024 End: 64-29-7297Hejxvwaho Result EncounterCorey Peggy DO Work Phone: NOKX External Department UnsolicitedStart: 08-24-2024 End: 05-61-4528Ibyuyvmfe Result EncounterCorey Peggy DO Work Phone: NOAR External Department UnsolicitedStart: 08-22-2024 End: 57-72-6964Xsfmrdtzs Result EncounterCorey Peggy DO Work Phone: NONL External Department UnsolicitedStart: 08-22-2024 End: 58-00-3805Nmprgzjgp Result EncounterCorey Peggy DO Work Phone: NOM[facility] External Department UnsolicitedStart: 08-20-2024 End: 65-07-1749Aeacgikcc Result EncounterCorey Peggy DO Work Phone: NOMS External Department UnsolicitedStart: 08-20-2024 End: 36-97-6356Ztwqfkbtx Result EncounterCorey Peggy DO Work Phone: NOMS External Department UnsolicitedStart: 08-17-2024 End: 76-19-3702Jrcwblvrg Result EncounterCorey Peggy DO Work Phone: NOM[facility] External Department UnsolicitedStart: 08-17-2024 End: 75-51-1127Ayeoixmkm Result EncounterCorey Peggy DO Work Phone: NOM[facility] External Department UnsolicitedStart: 08-15-2024 End: 65-03-0117Unkpimpwm Result EncounterCorey Peggy DO Work Phone: NOM[facility] External Department UnsolicitedStart: 08-15-2024 End: 35-73-9235Cgecdgfsa Result EncounterCorey Peggy DO Work Phone: NOMS External Department UnsolicitedStart: 06-14-2024 End: 43-28-4379Tzvesprkm Result EncounterCorey Peggy DO Work Phone: NOM[facility] External Department UnsolicitedStart: 06-14-2024 End: 76-77-9189Cqhggnmeo Result EncounterCorey Peggy DO Work Phone: NOMS External Department UnsolicitedStart: 04-18-2024 End: 86-76-1461Ggzmjihog Result EncounterCorey Peggy DO Work Phone: NOMS External Department UnsolicitedStart: 04-18-2024 End: 54-72-4406Ebggpgnem Result EncounterCorey Peggy DO Work Phone: noms External Department UnsolicitedStart: 04-10-2024 End: 62-31-8782Feuvit flowsheetCorey Peggy DO Work Phone: NOGG BCP OBStart: 04-10-2024 End: 57-54-1096Nuyels flowsheetCorey Peggy DO Work Phone: NOBM BCP OBStart: 04-10-2024 End: 84-27-1183Qaqwmi outpatient visit 15 minutesCorey Peggy DO Work Phone: noms BCP OBComment on above:Encounter for infertility; Hormone disorderStart: 04-10-2024 End: 59-87-9882fuwxeqmkhmNAJEP FAZIONot AvailableStart: 03-21-2024 End: 10-68-1789Bqhtmdsqh Result EncounterCorey Peggy DO Work Phone: noms External Department UnsolicitedStart: 03-21-2024 End: 59-94-6969Rzktwkymf Result EncounterCorey Peggy DO Work Phone: noms External Department UnsolicitedStart: 02-17-2024 End: 43-40-9788Zvkmjlgiw Result EncounterCorey Peggy DO Work Phone: noms External Department UnsolicitedStart: 02-17-2024 End: 11-88-0466Dugsbynzc Result EncounterCorey Peggy DO Work Phone: noms External Department UnsolicitedStart: 2024 End: 11-88-6704Mndetznlw Result EncounterCorey Peggy DO Work Phone: NOVK External Department UnsolicitedStart: 2024 End: 76-53-4471Hmxyrcrxr Result EncounterCorey Peggy DO Work Phone: noms External Department UnsolicitedStart: 2024 End: 40-42-7910Voonsn outpatient visit 15 minutesCorey Peggy DO Work Phone: NOMT BCP OBComment on above:Female infertility; History of miscarriageStart: 01-05-2024 End: 79-69-9851Sfizlrn encounter procedureMD Zachary Mayes Work Phone: [facility] [place] Work Phone: Start: 01-05-2024 End: 42-84-2534xrpyxqualqBE Zachary Alvarez Gerber Work Phone: [phone] [place] [address] Ctr Work Phone: Start: 12-28-2023 End: 87-45-8409Gbnbhej encounter procedureMD Zachary Mayes Work Phone: [phone] [place] [address] Ctr[facility] [place] Work Phone: Start: 12-28-2023 End: 45-90-0297tqtobrhokxDC Zachary Alvarez Gerber Work Phone: [phone] [place] [address] Ctr Work Phone: Start: 12-22-2023 End: 70-03-4717Mtjyeem encounter procedureMD Zachary Mayes Work Phone: [phone] [place] [address] Ctr[facility] [place] Work Phone: Start: 12-22-2023 End: 60-31-0686tiggglqomqKO Zachary Alvarez Gerber Work Phone: [phone] [place] [address] Ctr Work Phone: Start: 12-20-2023 End: 99-46-3337Ibynvvl encounter procedureMD Zachary Mayes Work Phone: [facility] C[facility]-Ultrasound [place] Work Phone: Start: 12-20-2023 End: 61-74-2174wanuvoalasAK Zachary Alvarez Gerber Work Phone: [phone] [place] [address] Ctr Work Phone: Start: 12-09-2023 End: 27-51-0557Nfnjrwx encounter procedureMD Zachary Mayes Work Phone: [facility] [place] Work Phone: Start: 12-09-2023 End: 77-86-8943kzxznlvwlaCU Zachary Mayes Work Phone: [facility]tr Work Phone: Start: 12-07-2023 End: 28-60-1430Rjtkkvx encounter procedureMD Zachary Mayes Work Phone: [phone] [place] [address] Medical Ctr[facility] [place] Work Phone: Start: 12-07-2023 End: 67-32-1738euyaucfshqWB Zachary Mayes Work Phone: [phone] [place] [address] Medical Ctr Work Phone: Start: 12-05-2023 End: 90-09-8455Gvmqebh encounter procedureMD Zachary Mayes Work Phone: [phone] [place] [address] Medical Ctr[facility] [place] Work Phone: Start: 12-05-2023 End: 44-92-1976xbssbzlmafMM Zachary Mayes Work Phone: [phone] [place] [address] Ctr Work Phone: Start: 12-02-2023 End: 46-34-0536otqagskqxiXK Zachary Mayes Work Phone: [phone] [place] [address] Ctr Work Phone: Start: 12-02-2023 End: 40-53-7370Yjgzkog encounter procedureMD Zachary Mayes Work Phone: [facility] [place] Work Phone: Start: 05-01-2023 End: 01-14-1111Gtsxqvnqf to same day surgery centerMD Zachary Mayes Work Phone: [phone] [place] [address] Ctr-XRay [facility] [place] Work Phone: Start: 05-01-2023 End: 65-42-5421vmlppwlwaiOE Zachary Mayes Work Phone: [facility] Work Phone: Start: 03-21-2023 End: 32-14-8308ysbqxuadplIukkw Keller Other [employer] Other Start: 50-96-2785Nzrfzh outpatient new 30 minutesAmber DeseanFPG Urgent Care ClydeStart: 02-01-2019 End: 85-89-4460Gtorjxqwi department patient visitVESSTRAITH [facility] DIMITROVMercy Merit Health Woman's Hospitaltart: 02-01-2019 End: 14-34-1573Newsudahp department patient visitVespleasant valley hospital Dago Work Phone: [facility] EDComment on above:Abdominal pain, right lower quadrant (Primary Dx); History of ovarian cyst Procedures DateProcedureProcedure DetailPerforming ClinicianStart: 39-06-9762VO OB CERVICAL LENGTHCorey Peggy DO Work Phone: Start: 29-54-7774OJ OB BPP W NON-STRESSCorey Peggy DO Work Phone: Start: 74-59-2360NZ OB PLACENTACorey Peggy DO Work Phone: Start: 78-35-6187GIY CBC WITH AUTO DIFFKristina Heather SENIOR SUPPLIER QUALITY ENGINEER Work Phone: Start: 62-12-8682Dvizi dip stick/tablet rgnt non-auto w/o micrscpKristina Heather SENIOR SUPPLIER QUALITY ENGINEER Work Phone: Start: 30-91-2871Kflog dip stick/tablet rgnt non-auto w/o micrscpCorey Peggy DO Work Phone: Start: 12-72-1004Yuvoa dip stick/tablet rgnt non-auto w/o micrscpKristina Heather SENIOR SUPPLIER QUALITY ENGINEER Work Phone: Start: 91-56-5119OYTFNAJ TOLERANCE 3 HOURJayla DA SILVA Work Phone: Start: 99-90-9763Ftuvu dip stick/tablet rgnt non-auto w/o micrscpCorey Peggy DO Work Phone: Start: 17-88-8575HBXPWWY 1 HOURCorey Peggy DO Work Phone: Start: 96-56-0010KO ECHO DOPPLER COMPLETEJayla DA SILVA Work Phone: Start: 29-92-6415Javum dip stick/tablet rgnt non-auto w/o micrscpCorey Peggy DO Work Phone: Start: 27-51-4248Dfbrz dip stick/tablet rgnt non-auto w/o micrscpAmy Cali DA SILVA Work Phone: Start: 48-50-0150Tiwzs dip stick/tablet rgnt non-auto w/o micrscpCorey Peggy DO Work Phone: Start: 99-50-9274Aikns dip stick/tablet rgnt non-auto w/o micrscpAmy Cali DA SILVA Work Phone: Start: 34-31-3908CQOAF FREE CELL DNA (NON-[facility] SEND OUT)Not In System Ref ProvStart: 11-64-0010MPPLCFAFI VAGINITIS (HTRX)Jack Peggy DO Work Phone: Start: 85-16-1662Baofc dip stick/tablet rgnt non-auto w/o micrscpCorey Peggy DO Work Phone: Start: 88-54-6442QWW,APTIMA HPV,AGE GDLNCorey Peggy DO Work Phone: Start: 08-16-5736UREQCOJRP REQUEST FOR LAB CORPCorey Peggy DO Work Phone: Start: 33-27-2408Sqeyr dip stick/tablet rgnt non-auto w/o micrscpCorey Peggy DO Work Phone: Start: 50-75-8313LTS HEMOGLOBIN F3QXxjhw Peggy DO Work Phone: Start: 85-73-7647Vpcrl dip stick/tablet rgnt non-auto w/o micrscpCorey Peggy DO Work Phone: Start: 18-33-3602WIG PREG QUANT HCGCorey Peggy DO Work Phone: Start: 89-45-7387JZE PREG QUANT HCGCorey Peggy DO Work Phone: Start: 64-66-5017WMZ PREG QUANT HCGCorey Peggy DO Work Phone: Start: 38-27-7835HMC PREG QUANT HCGCorey Peggy DO Work Phone: Start: 96-21-7625DFL PREG QUANT HCGCorey Peggy DO Work Phone: Start: 22-00-5874HPD PREG QUANT HCGCorey Peggy DO Work Phone: Start: 47-42-9468LHU PROGESTERONECorey Peggy DO Work Phone: Start: 42-76-5571ZFT PROGESTERONECorey Peggy DO Work Phone: Start: 03-40-5920XIC PREG QUANT HCGCorey Peggy DO Work Phone: Start: 77-86-4099XSQ PROGESTERONECorey Peggy DO Work Phone: Start: 82-63-1361TLD HEMOGLOBIN W5LLeorp Peggy DO Work Phone: Start: 04-62-7493Ttfrqzkqzi ultrasound of gravid uterusMD Zachary Mayes Work Phone: Start: 23-50-1096Gunvajsnkp microscopic onlyVESELIN DIMITROVStart: 21-11-9670Gaydp test visual color cmprsn methsVESELIN DIMITROVStart: 99-55-3127Stsfi dip stick/tablet rgnt auto w/o microscopyVESELIN DIMITROVStart: 84-38-0601Tvxru count complete auto&auto difrntl wbcVESELIN DIMITROVStart: 30-34-9251Utjufuetejimf metabolic panelVESELIN DIMITROVStart: 62-61-7876Ejxavfstss microscopic onlyVeselin Dago Work Phone: start: 73-31-7594Odgwe test visual color cmprsn methsVeselin Dago Work Phone: start: 07-82-6449Fifve dip stick/tablet rgnt auto w/o microscopyVeselin Dago Work Phone: start: 91-53-0253Sqjcf count complete auto&auto difrntl wbcVeselin Dago Work Phone: start: 87-70-8509Uzkympjijlvxt metabolic panelVeselin Dago Work Phone: Plan of Treatment DateCare ActivityDetailAuthorStart: 22-05-3918Jrnnw BMI ScreeningAdult BMI ScreeningProOhiohealth Nelsonville Health Centerca Health SystemStart: 67-26-5860Fvvtapg ScreeningTobacco ScreeningProOhiohealth Nelsonville Health Centerca Health SystemStart: 03-26-2025 End: 68-56-8327Ehzzmur encounter ardbaapfl01/12/2025 2:40 PM EST Routine [facility] [address] [place], [id number] Jack Woods DO [address] [address] N[facility] OBGYNStart: 03-12-2025 End: 86-77-8871Ijvuqdr encounter procedureNOMS Sachin Waltersment on above: ArrivedStart: 02-27-2025 End: 64-72-4534Lwzaluxklcor / ancillary services welbtoziga58/16/2025 11:00 AM EDT Ancillary Procedure [facility] [address] [place] [place] [address] N[facility] [place] OBGYNStart: 02-25-2025 End: 23-32-7221EZ.doppler Lower extremity vein - rightVascular US lower extremity venous duplex right Imaging Routine Pain of right lower extremity Expected: 02/25/2025, Expires: 02/25/2026[facility] Work Phone: comment on above:Expected: 02/25/2025, Expires: 02/25/2026Start: 02-25-2025 End: 86-91-1112Uqzfwop encounter procedureNOMS [place] OBGYNComment on above: ArrivedStart: 02-19-2025 End: 97-33-3556Poztfibwukph / ancillary services sgawhgjcaj02/08/2025 11:30 AM EDT Ancillary Procedure [facility] [address] [place] [address] [place] [address] [facility] [place] OBGYNStart: 02-11-2025 End: 00-31-0069TM for pregnancyUS OB follow up transabdominal approach Imaging Routine size inconsistent with dates ([facility]) Expected: 02/11/2025, Expires: 06/13/2025[facility] Work Phone: comment on above:Expected: 02/11/2025, Expires: 06/13/2025Start: 02-11-2025 End: 10-20-1972Qgowxwp encounter procedureNOMS [place] OBGYNComment on above: ArrivedStart: 01-28-2025 End: 65-10-7513Rcrgycdifqh of glucose 3 hours after glucose challenge for glucose tolerance testGlucose tolerance, 3 hours Lab Routine Elevated glucose tolerance test Expected: 01/28/2025 (Approximate), Expires: 01/28/2026[facility] Work Phone: comment on above:Expected: 01/28/2025 (Approximate), Expires: 01/28/2026Start: 01-28-2025 End: 85-87-9615Jvweiuy encounter procedureNOMS Stephenson OBGYNComment on above: ArrivedStart: 01-21-2025 End: 47-70-2344Zvznojm encounter pdhzrylon52/09/2025 8:40 AM EDT Office Visit [facility] [address] [place] [place] [address] Jack Woods, DO [address] [place] [address] N[facility] OBGYNStart: 01-16-2025 End: 40-92-2541Whyqrwd encounter wvelsvanu91/04/2025 9:20 AM EDT Office Visit [facility] [address] [place] [place] [address] Jack Woods, DO [address] [place] [address] ArrivedNOMS Sachin OBGYNComment on above:ArrivedStart: 59-90-9889Bqygpxhhc vaccinationInfluenza VaccineTrinity Health System East Campus SystemStart: 01-07-2025 End: lead ECGECG 12 lead unit performed ECG Routine Palpitations Expected: 01/07/2025 (Approximate), Expires: 01/07/2026[facility] Work Phone: comment on above:Expected: 01/07/2025 (Approximate), Expires: 01/07/2026Start: 01-07-2025 End: 07-18-5997Qldvhcvukucmum 2D completeEchocardiogram 2D complete Echocardiography Routine Palpitations Tachycardia Expected: 01/07/2025 (A pproximate), Expires: 01/07/2027[facility] HealthcareComment on above:Expected: 01/07/2025 (Approximate), Expires: 01/07/2027Start: 01-07-2025 End: 94-82-3986Lbcrnnh encounter ykacscqmp62/26/2025 1:50 PM EDT Office Visit [facility] [address] [place] [phone] Jayla Art PA [address] [place] [address] ArrivedRIMMA [place] OBGYNComment on above:ArrivedStart: 12-31-2024 End: 75-73-2990Ruuwvrs encounter xgdkjuhnw53/19/2025 2:10 PM EDT Routine [facility] [address] [place], [id number] Jack Woods, [address] [place] [address] ArrivedRIMMA [place] OBGYNComment on above:ArrivedStart: 12-31-2024 End: 80-64-2056QIX panel - Blood by Automated countCBC Lab Routine Diabetes mellitus screening Expected: 12/31/2024 (Approximate), Expires: 12/31/2025[facility] Work Phone: comment on above:Expected: 12/31/2024 (Approximate), Expires: 12/31/2025Start: 12-31-2024 End: 64-56-8695Lenwsxtvxkj of glucose 1 hour after glucose challenge for glucose tolerance testGlucose tolerance, 1 hour Lab Routine Diabetes mellitus screening Expected: 12/31/2024 (Approximate), Expires: 12/31/2025[facility] HealthcareComment on above:Expected: 12/31/2024 (Approximate), Expires: 12/31/2025Start: 12-10-2024 End: 00-60-6722Sbjwhsp encounter asfhgtwst56/29/2025 1:30 PM EDT Appointment [facility] [place] [address] [place] [address] Ghifwqvr Medicine [facility] Hospitaltart: 12-03-2024 End: 74-59-2577Tdjdwey encounter procedureNO [facility] OBComment on above:Second trimester ([facility])Start: 11-12-2024 End: 59-95-1000KU Pelvis WO contrastMR pelvis without contrast Imaging Routine Adnexal mass 16 weeks gestation of Expected: 11/12/2024, Expires: 11/12/2025[facility] Work Phone: comment on above:Expected: 11/12/2024, Expires: 11/12/2025Start: 11-12-2024 End: 24-73-1237GV MFM with or without consultUS MFM with or without consult Imaging Routine Adnexal mass Uterine fibroids affecting insecond trimester Localized swelling of right lower extremity Expected: 11/12/2024, Expires: 11/12/2025[employer] Work Phone: comment on above:Expected: 11/12/2024, Expires: 11/12/2025Start: 11-12-2024 End: 82-52-9415TY.doppler Lower extremity vein - rightVas venous duplex insufficiency lwr rt Vascular Ultrasound Routine Localized swelling of right lower extremity Expected: 11/12/2024, Expires: 11/12/2025[facility] Comment on above:Expected: 11/12/2024, Expires: 11/12/2025Start: 11-05-2024 End: 18-61-0286Rmsoc fetoprotein, maternalAlpha fetoprotein, maternal Lab Routine Second trimester ([facility] 15 weeks gestation of ([facility]) Expected: 11/05/2024 (Approximate), Expires: 05/07/2025[facility] Comment on above:Expected: 11/05/2024 (Approximate), Expires: 05/07/2025Start: 11-05-2024 End: 94-81-4018Dxbchws encounter procedureNOMS BCP OBComment on above:Arrived Start: 26-75-7273PxssgfyojOhioHealth Marion General Hospitaltart: 10-08-2024 End: 91-95-9101Fisjlsw encounter procedureNOMS BCP OBComment on above:Arrived Start: 09-19-2024 End: 79-60-5715YOK/RhABO/Rh Lab Routine Missed menses , unspecified gestational age Expected: 09/19/2024 (Approximate), Expires: 09/19/2025[facility] HealthcareComment on above:Expected: 09/19/2024 (Approximate), Expires: 09/19/2025Start: 09-19-2024 End: 57-45-1047Ahvuw type and Indirect antibody screen panel - BloodType and screen Lab Routine Missed menses , unspecified gestational age Expected: 09/19/2024 (Approximate), Expires: 09/19/2025[facility] Work Phone: comment on above:Expected: 09/19/2024 (Approximate), Expires: 09/19/2025Start: 09-19-2024 End: 31-01-7851Cjber of abuse panel - Urine by Screen methodRapid drug screen, urine Lab Routine , unspecified gestational age Encounter for supervision of normal first in first trimester Expected: 09/19/2024 (Approximate), Expires: 09/19/2025[facility] HealthcareComment on above:Expected: 09/19/2024 (Approximate), Expires: 09/19/2025Start: 09-19-2024 End: 22-75-4485whqidovvtb12/08/2025 1:30 PM EDT Initial [facility] [place] [address] JRZX BCP OBStart: 09-19-2024 End: 98-13-8342Dkmzkzrlcijd / ancillary services ebtbkrbhzg92/08/2025 1:00 PM EDT Ancillary Procedure [facility] [place] [address] ATGR BCP OBStart: 08-28-2024 End: 14-81-5506Ofjhpqxjrsme / ancillary services /16/2025 8:30 AM EDT Ancillary Procedure [facility] [place] [address] GEJE BCP OBStart: 04-10-2024 End: 85-77-5272Lvtzyjqeclbis hormone (AMH)Antimullerian hormone (AMH) Lab Routine Hormone disorder Expected: 04/10/2024 (Approximate), Expires: 04/10/2025 [facility] Work Phone: comment on above:Expected: 04/10/2024 (Approximate), Expires: 04/10/2025Start: 04-10-2024 End: 58-90-6512Zoflyqq encounter zmbohvxof98/27/2024 11:10 AM EST Office Visit [facility] [address] [place] [phone] Jack Woods, DO [address] [place] [address] ArrivedLOMA LINDA UNIV[facility] OBComment on above:ArrivedStart: 2024 End: 29-92-9786Ajvsmap encounter lyelhtupu14/24/2024 1:20 PM EDT Office Visit [facility] OB [address] [place] [place] [address] Jack Woods, DO [address] [place] [address] [facility] OBStart: 82-45-9707YNuG,Tdap and Td Vaccines (2 - Td or Tdap)DTaP,Tdap and Td Vaccines (2 - Td or Tdap)[facility]: 73-76-6297Ijtadkhcp for malignant neoplasm of cervixPap Smear [facility] Regionaltart: 87-08-1213Zkxpqagmg vaccinationFlu vaccine (#1) [facility]: 24-60-2899Nmtfu BMI Follow Up PlanAdult BMI Follow Up PlanCone Health Alamance Regionaltart: 37-70-1980Umnuzqqsyq ScreeningDepression ScreeningMarymount HospitalBacteria identified in Urine by CultureUrine culture Microbiology Routine Missed menses Ordered: 09/19/2024[facility] Comment on above:Ordered: 5CBC W Auto Differential panel - BloodCBC and differential Lab Routine Missed menses , unspecified gestational age Ordered: 09/19/2024[facility] HealthcareComment on above:Ordered: 5CBC W Auto Differential panel - BloodCBC and differential Lab Routine Third trimester ([facility]) Ordered: 03/12/2025[facility] Work Phone: comment on above:Ordered: 03/12/2025HLAMYDIA TRACHOMATIS (GENITO/STI)CHLAMYDIA TRACHOMATIS (GENITO/STI) Lab Routine STD exposure Ordered: 11/05/2024[facility] HealthcareComment on above:Ordered: 11/05/2024 Cytology Cervical or vaginal smear or scraping studyPap Smear Pathology and Cytology Routine Well woman exam with routine gynecological exam Ordered: [facility] HealthcareComment on above:Ordered: 11/05/2024Hemoglobin A1c/Hemoglobin.total in BloodHemoglobin A1c Lab Routine Missed menses , unspecified gestational age Ordered: 09/19/2024[facility] HealthcareComment on above: Ordered: 09/19/2024Hepatitis B virus surface Ag [Presence] in Serum or Plasma by ImmunoassayHepatitis B surface antigen Lab Routine Missed menses , unspecified gestational age Ordered: 09/19/2024[facility] HealthcareComment on above: Ordered: 09/19/2024Hepatitis C virus Ab [Presence] in Serum or Plasma by ImmunoassayHepatitis C antibody Lab Routine Missed menses , unspecified gestational age Ordered: 09/19/2024[facility] HealthcareComment on above:Ordered: 09/19/2024HIV-1/HIV-2 antigen/antibody combination immunoassayHIV-1 and HIV-2 antibodies Lab Routine Missed menses , unspecified gestational age Ordered: 09/19/2024[facility] HealthcareComment on above:Ordered: 09/19/2024Neisseria gonorrhoeae DNA [Presence] in Unspecified specimen by DARIUS with probe detection Neisseria gonorrhea DNA probe, direct Lab Routine STD exposure Ordered: 11/05/2024[facility] HealthcareComment on above:Ordered: 11/05/2024Progesterone [Mass/volume] in Serum or PlasmaBlanchard Valley Health System Bluffton HospitalReagin Ab [Presence] in Serum by RPRRPR Lab Routine Missed menses , unspecified gestational age Ordered: 09/19/2024[facility] HealthcareComment on above:Ordered: 09/19/2024Rubella antibody, IgGRubella antibody, IgG Lab Routine Missed menses , unspecified gestational age Ordered: 09/19/2024[facility] HealthcareComment on above:Ordered: 09/19/2024SURESWAB(R) ADVANCED VAGINITIS PLUS, TMASURESWAB(R) ADVANCED VAGINITIS PLUS, TMA Pathology and Cytology Routine Vaginal discharge Ordered: 11/05/2024[facility] Work Phone: comment on above:Ordered: 11/05/2024 Immunizations Immunization DateImmunizationNotesCare XebnhjhjPofajqjp96-13-8732hopzdhotw virus vaccine, unspecified formulationGuadalupe Peres MD Work Phone: [facility] Payers DatePayer CategoryPayerPolicy [id number][facility] of [facility] - PPOANTHEM Member Subscriber Plan / Payer (Effective 2024-Present) Name: Daphney Al Relation to Subscriber: Self Name: Daphney Al PayerID: [id number] (NA) Type: Not on file Address: [address] [place] [id number] [facility] 1.2.840.066841.1.13.693.2.7.9.509320.80732[id number] 11-84-3050Dnhztiq Health [id number] 2.16.840.9.148197.1470-20-2024 Frlg-ibpg2f41050-5y30vegn1m41407-3u68-1p86-9v69-4x08752nr50l31-81-2589Vpgcanm Health Insurance 1.2.840.840603.1.13.693.2.7.3.369216.149[id number] UnknownBCBS BCBS - [place] PPO xxxxxxxxxxxx 2014-Present [address] [place], [place] [address]ppyjtuklebba 1.2.840.412051.1.13.239.2.7.3.606882.08298-93-5241Tzymffx [id number] 2.16840.1.402750.3.57[id number] 2.16840.1.949290.3.579.2.[id number] 2.16840.1.393089.3.579.[id number] 2.16840.1.718627.3.579.2.787269-62-0240Jvtaifg95238726 2.16840.1.288607.3.579.2.433930-12-7458Qjnowwu15016311 2.16840.1.615493.3.57[id number] 2.16840.1.768809.3.579.2.033028-47-0238Iiduvoi44574695 2.16840.1.178571.3.579.2.892316-37-3565Lsuiscd56310738 2.16840.1.895518.3.579.2.[id number] 2.16840.1.326381.3.579.2.583481-09-3721Akroalm18794203 2.16840.1.136418.3.579.2.419708-60-4540Mnbkubm56733003 2.16840.1.308691.3.579.2.053869-87-7719Cbtwwjp01459011 2..1.946723.3.579.2.752575-34-5753Enulxgt09936153 2..1.826080.3.579.2.090188-13-3585Hnfymdd1257283 2..1.214743.3.579.2.637013-87-3477Cxrwvck9035104 2..1.725880.3.579.2.458084-40-0644Miwwxyb2758314 2..1.124057.3.579.2.160944-13-7621Bvvrclb5434322 2..1.018817.3.579.2.795300-16-6611Lstcejq7049337 2..1.035477.3.579.[id number] 32o3l650-o83f-75rn-no59-2t46o951z9lkEcedirsMwkqyi /BQKZQ111K17100 05os7d19-4796-8dt6-z85t-967b7uia2940Edvgedj03440884 ..1.918159.3.579.2.727Creijhz67390667 2..1.566713.3.579.2.531 Qnqfuth00892337 ..1.441278.3.579.2.270Ienkccy56209351 2..1.048725.3.579.2.210Uyvbqgc00674456 2..1.540551.3.579.2.531 Ocqvndf12926059 2..1.517446.3.579.2.582Hcxmtyb13098109 2..1.816592.3.579.2.412Clvxfsm21651871 2.16.840.1.972707.3.579.2.531 Mpssebm14538916 2.16.840.1.221181.3.579.2.531 Social History DateTypeDetailFacilityStart: 02-01-2019 End: 22-75-8516Riiouiy smoking status NHISNever smokerOhioHealth Marion General Hospitaltart: 02-01-2019 End: 66-28-3298Hhbbasy intakeNot [facility]: 2000 Sex Assigned At BirthNot on [facility]: 64-40-7212Tfp Assigned At BirthFeWVUMedicine Barnesville Hospitaltart: 2024 End: 62-71-1226Fcjstbpaa beverage intakeLifetime non-drinker (finding)NOM HealthcareStart: 04-28-2023 End: 98-47-8477Uxhhdrf of Social functionNOIL HealthcareStart: 35-39-6797Wmhftmz CommentCaffeine intake: 3-4 cups per dayCEDAR CITY HOSPITAL HealthcareStart: 08-06-2024 PregnancyNOIL HealthcareStart: 07-17-7308NihFvoelx (finding)[facility] Hospitaltart: 61-33-1556Ngahfq the past 12 months we worried whether our food would run out before we got money to buy more.Never [facility] Clinical Notes 03-21-2023 to 03-12-2025 Note Date & MoxlYakjMrpgyrgq39-09-5350 History of Present illness Narrative* Hazel Romero, [...] HOURS NEEDED FOR NAUSEA AND VOMITING Vit w/Da-Qmixfaxaa-VU (PNV PO) ALLERGIES Allergies Allergen Reactions Cephalexin [...] nursing note reviewed. Exam conducted with a staying machine operator present. Vitals: Estimated body mass index is 30.55 kg/m as calculated from the following: Height as of 02/06/24: 5' 6 . Weight as of this encounter: 189 lb 4 oz. BP: 102/72 Patient's last menstrual period was 07/23/2024. Assessment/Plan ICD-10-CM 1. Third trimester ([facility]) Z34.93 POCT urinalysis dipstick manually resulted 2. 33 weeks gestation of ([facility]) Z3A.33 Return OB: Patient presents today [...] of: Hazel Romero NP documented in this encounterSaint John's Saint Francis HospitalJxlfbmsaqu36-42-4532 History of Present illness Narrative* Lisa Prasad [...] 6 hours as needed for nausea. Vit w/Gy-Gqoudhvdl-CN (PNV PO) ALLERGIES Allergies[1] PROBLEMS Active Ambulatory Problems Diagnosis Date Noted No Active Ambulatory Problems Resolved Ambulatory Problems Diagnosis Date Noted No Resolved Ambulatory Problems Past Medical History: Diagnosis Date Acne vulgaris Endometriosis History of medical problems Miscarriage ([facility]) Ovarian cyst HISTORY PAST MEDICAL HISTORY [...] nursing note reviewed. Exam conducted with a staying machine operator present. Vitals: Estimated body mass index is 30.67 kg/m as calculated from the following: Height as of 02/06/24: 5' 6 . Weight as of this encounter: 190 lb. BP: 120/70 Patient's last menstrual period was 07/23/2024. ASSESSMENT & PLAN ICD-10-CM 1. Third trimester ([facility]) Z34.93 POCT urinalysis dipstick manually resulted 2. 31 weeks gestation of ([facility]) Z3A.31 3. POTS (postural orthostatic tachycardia [...] Diagnostic lap-endometriosis TONSILLECTOMY 11/03/2016 documented in this encounterSaint John's Saint Francis HospitalEnltwicaqt04-38-4807 History of Present illness Narrative* Hazel Romero [...] 6 hours as needed for nausea. Vit w/Bw-Qfymtgbfl-GM (PNV PO) ALLERGIES Allergies Allergen Reactions Cephalexin [...] vulgaris Endometriosis History of medical problems Miscarriage ([facility]) Ovarian cyst HISTORY PAST MEDICAL HISTORY SOCIAL HISTORY Past Medical History: Diagnosis Date Acne vulgaris Endometriosis History of medical problems recurrent strep Miscarriage ([facility]) Ovarian cyst Social History Tobacco Use Smoking [...] nursing note reviewed. Exam conducted with a staying machine operator present. Vitals: Estimated body mass index is 30.18 kg/m as calculated from the following: Height as of 02/06/24: 5' 6 . Weight as of this encounter: 187 lb. BP: 118/72 Patient's last menstrual period was 07/23/2024. ASSESSMENT & PLAN ICD-10-CM 1. Third trimester ([facility]) Z34.93 POCT urinalysis dipstick manually resulted 2. 29 weeks gestation of ([facility]) Z3A.29 Return OB: Patient presents today for a routine obstetrics appointment. Patient is currently 29w0d . Patient states she is doing well but has complaints of being tired due to current . Patient has verbalizes frequent movement. labor precautions was discussed/given and patient was instructed to perform kick counts three times a day. Patient has been evaluated [facility] Cardiology with a history of syncopal [...] of: Hazel Romero NP documented in this encounterSaint John's Saint Francis HospitalPplytzobxv57-17-6806 History of Present illness Narrative* REKHA Ott [...] 6 hours as needed for nausea. Vit w/Zc-Guvjivlqm-UF (PNV PO) ALLERGIES Allergies Allergen Reactions Cephalexin [...] & PLAN ICD-10-CM 1. Second trimester ([facility]) Z34.92 POCT urinalysis dipstick manually resulted 2. 27 weeks gestation of ([facility]) Z3A.27 3. Elevated glucose tolerance test R73.09 [...] behalf of: REKHA Ott documented in this encounterSaint John's Saint Francis HospitalMsblixmfsl50-28-8820 [facility] Note Reason for [...] negative for PE or any abnormalities. Her spool fixer ordered echo which came back normal. A [...] she cannot go b (more content not included)...[facility]09-04-2025 History of Present illness Narrative* Kelley Sepulveda, FNP - 01/16/2025 9:20 AM EDT Reason for Appointment: Patient ID: Daphney Al is a 24 y.o. female who presents for Routine Visit Patient presents today for Return OB appointment. MEDICATIONS Current Outpatient Medications Medication Instructions aspirin 81 MG oral suspension ondansetron (ZOFRAN) 4 mg, Oral, Every 6 hours PRN, Take 1 tablet by mouth every 6 hours as needed for nausea. Vit w/Hm-Xhgnsgxfb-HA (PNV PO) ALLERGIES Allergies Allergen Reactions Cephalexin [...] nursing note reviewed. Exam conducted with a staying machine operator present. Vitals: Estimated body mass index is 29.67 kg/m as calculated from the following: Height as of 02/06/24: 5' 6 . Weight as of this encounter: 183 lb 12.8 oz. BP: 120/78 Patient's last menstrual period was 07/23/2024. ASSESSMENT & PLAN ICD-10-CM 1. 25 weeks gestation of ([facility]) Z3A.25 POCT urinalysis dipstick manually resulted 2. Second trimester ([facility]) Z34.92 POCT urinalysis dipstick manually resulted 3. Palpitations R00.2 4. Syncope, unspecified syncope type R55 5. Gastroesophageal reflux in ([facility]) O99.619 K21.9 Patient presents today for a routine obstetrics appointment. Patient is currently 25w2d with a Estimated Date of Delivery: 04/29/25. Patient had spells where she passed out. Patient to have Cardiac Consult hopefully within the next week. Referral will be made today to Cardiology at [facility]. Patient has a EKG scheduled for Monday at 1pm. Patient voiced that she sees stars and then gets dizzy.Advised to increase protein and to remain off work until cleared by Cardiology. Patient to return to clinic 1 week. Documented by Kelley Sepulveda LPN on behalf of: Jack Woods DO documented in this encounterSaint John's Saint Francis HospitalSqtjlyhhll47-68-8736 History of Present illness Narrative* REKHA Ott [...] 6 hours as needed for nausea. Vit w/Bn-Sdqbfeswz-FK (PNV PO) pyridoxine (VITAMIN B-6) 25 mg, [...] vulgaris Endometriosis History of medical problems Miscarriage ([facility]) Ovarian cyst HISTORY PAST MEDICAL HISTORY SOCIAL [...] & PLAN ICD-10-CM 1. Second trimester ([facility]) Z34.92 POCT urinalysis dipstick manually resulted iron polysaccharides (ProFe) 391.3 (180 Fe) MG capsule 2. 23 weeks gestation of ([facility]) Z3A.23 3. Palpitations R00.2 ECG 12 [...] behalf of: REKHA Ott documented in this encounterSaint John's Saint Francis HospitalYlniykjiyg70-58-6412 History of Present illness Narrative* Lisa Prasad, FNP - 12/31/2024 2:10 PM EDT Reason for [...] 6 hours as needed for nausea. Vit w/Iu-Epevavxni-DL (PNV PO) pyridoxine (VITAMIN B-6) 25 mg, [...] nursing note reviewed. Exam conducted with a staying machine operator present. Vitals: Estimated body mass index is 29.83 kg/m as calculated from the following: Height as of 02/06/24: 5' 6 . Weight as of this encounter: 184 lb 12.8 oz. BP: 112/62 Patient's last menstrual period was 07/23/2024. ASSESSMENT & PLAN ICD-10-CM 1. Second trimester ([facility]) Z34.92 POCT urinalysis dipstick manually resulted 2. 23 weeks gestation of ([facility]) Z3A.23 POCT urinalysis dipstick manually resulted [...] of: Jack Woods DO documented in this encounterSaint John's Saint Francis HospitalUunlmdgzxv82-23-2546 History of Present illness Narrative* REKHA Ott [...] 6 hours as needed for nausea. Vit w/Ss-Zdezcsddc-DR (PNV PO) pyridoxine (VITAMIN B-6) 25 mg, [...] & PLAN ICD-10-CM 1. Second trimester ([facility]) Z34.92 POCT urinalysis dipstick manually resulted 2. 19 weeks gestation of ([facility]) Z3A.19 Return OB: Patient presents today [...] behalf of: REKHA Ott documented in this encounterSaint John's Saint Francis [id number] History of Present illness Narrative* Guadalupe Peres [...] nausea or vomiting., Disp: , Rfl: PNV 83-sjwa-arqdtwtntfhi-dha 29 mg iron-1 mg -350 mg comb [...] (2019) [facility]- medicine :principles and practice [place], [place] : Hall/Elsevier Sonographic diagnosis of ovarian torsion: accuracy and predictive factors. Monica R, Jeff N, Zion N, Sohan-Chelsea G, Bright I. J Ultrasound Med. 2011 Jan;30(9):1205-10. Adnexal masses in : An updated review. Olivia AM, Dorie I, Adelaide DOMÍNGUEZ, Nory H, Alexi AbernathyTanja MT. [facility] J Med. 2017 Feb-Apr;7(4):153-157. doi: 10.4103/[email or web address]. PMID: [id number] Uterine fibroids, affecting I reviewed the uterine [...] and evaluation of bilateral adnexal masses, through [facility] Recommend repeat growth ultrasound in the 3rd trimester, through primary OB, given known uterine fibroid Anticipate term vaginal delivery at local hospital Precautions regarding shortness of breath and chest pain were reviewed with the patient today DISPOSITION: At this point the patient is in complete care of her spool fixer. Thank you for allowing me to participate in the care of Daphney Al. If there any questions please do not hesitate to contact us. Guadalupe Peres MD Maternal- Medicine [place] [id number] [facility] 1st [place] [address] This document was created with [employer] technology. Though I make every effort to review the dictation as it is transcribed, on occasion the spoken word can be misinterpreted by the technology leading to inappropriate words, phrases, or sentences. This note is addressed to the requesting provider as a consultation for clinical guidance. Specificmedical abbreviations are occasionally used and those are generally approved by the [place]?Board of?Obstetrics and?Gynecology?as well as?Graham chan abbreviations. The above plan of care was based solely on the diagnoses for which a consultation was requested. ?More frequent testing may be indicated based on her other medical/obstetrical conditions. The management of other or medical conditions is beyond the scope of requested consultation and will c mick to be followed by the primary spool fixer or primary care provider. Note to patient: [...] risk Have you been seen here at [facility] in a previous ? No Recent ER visits or hospitalizations? No Bring blood sugar log or meter with you today? (Please bring them with you for every visit at [facility]) N/A Flu vaccine (Mar-July)? N/A Any concerns that you would like me to mention to the provider today? R calf bruising, +Homans sign, wants to make sure about cysts, feeling nervous about cervix being short, has never been this far along. Right calf = 36.4cm, Left calf = 39.0cm documented in this encounterMary[facility] Hospital06-[facility] History of Present illness Narrative* Lisa [...] 6 hours as needed for nausea. Vit w/Yb-Zimnvzezg-YG (PNV PO) pyridoxine (VITAMIN B-6) 25 mg, [...] nursing note reviewed. Exam conducted with a staying machine operator present. Vitals: Estimated body mass index is 27.02 kg/m as calculated from the following: Height as of 02/06/24: 5' 6 . Weight as of this encounter: 167 lb 6.4 oz. BP: 106/68 Patient's last menstrual period was 07/23/2024. ASSESSMENT & PLAN ICD-10-CM 1. Well woman exam with routine gynecological exam Z01.419 Pap Smear 2. Second trimester ([facility]) Z34.92 POCT urinalysis dipstick manually resulted Alpha fetoprotein, maternal Alpha fetoprotein, maternal 3. 15 weeks gestation of ([facility]) Z3A.15 POCT urinalysis dipstick manually resulted Alpha fetoprotein, maternal Alpha fetoprotein, maternal 4. Vaginal discharge N89.8 SURESWAB(R) ADVANCED VAGINITIS PLUS, TMA 5. STD exposure Z20.2 CHLAMYDIA TRACHOMATIS (GENITO/STI) Neisseria gonorrhea DNA probe, direct Return OB/Annual Exam: Patient presents today for a annual exam/routine obstetrics appointment. Patient is currently [id number]. Patient states she is doing well but [...] of: Jack Woods DO documented in this encounterSaint John's Saint Francis [id number] History of Present illness Narrative* Lisa Prasad [...] 6 hours as needed for nausea. Vit w/Or-Uebrbytwm-AC (PNV PO) pyridoxine (VITAMIN B-6) 25 mg, [...] nursing note reviewed. Exam conducted with a staying machine operator present. Vitals: Estimated body mass index is [...] meat, and stay away from [facility]. Patient has been consulted regarding any [...] of: Jack Woods DO documented in this encounterSaint John's Saint Francis [id number] History of Present illness Narrative* Manjula Elias [...] the following prescription(s): aspirin, omeprazole, ondansetron, vit w/un-jjnywevwm-oc, and progesterone. Medical History: Active Ambulatory Problems [...] meat, and stay away from [facility]. Patient has also been advised to [...] by: Manjula Elias MA documented in this encounterSaint John's Saint Francis [id number] History of Present illness Narrative* Lisa Prasad, BRIANA - 04/10/2024 11:10 AM EST Reason for Appointment: Patient ID: Daphney Al is a 24 y.o. female who presents for Infertility Patient presents today for Fertility Follow Up appointment. MEDICATIONS Current Outpatient Medications Medication Instructions aspirin 81 MG oral suspension Vit w/Mt-Iwlfjfrfd-TG (PNV PO) ALLERGIES Allergies Allergen Reactions Cephalexin [...] nursing note reviewed. Exam conducted with a staying machine operator present. Vitals: Estimated body mass index is [...] Pt voiced understanding. Discussed LAST referral towards [place]. Documented by Lisa Prasad LPN on behalf of: Jack Woods DO documented in this encounterSaint John's Saint Francis HospitalHwvdgbvqlc52-99-7129 History of Present illness Narrative* Lisa Prasad LPN - 2024 1:20 PM EDT Reason for Appointment: Patient ID: Daphney Al is a 23 y.o. female who presents for Infertility Patient presents today for Fertility Follow Up appointment. MEDICATIONS Current Outpatient Medications Medication Instructions aspirin 81 MG oral suspension Vit w/Fn-Livlsbopa-RX (PNV PO) ALLERGIES Allergies Allergen Reactions Cephalexin [...] nursing note reviewed. Exam conducted with a staying machine operator present. Vitals: Estimated body mass index is [...] of: Jack Woods DO documented in this encounterSaint John's Saint Francis HospitalPcgdzrdzlk84-73-9461 Evaluation note* Encounter Date Diagnosis Assessment Notes [...] treatment plan. Patient left in stable condition AYLIEN Other Evaluation noteNo assessment information available [facility] Work Phone: Evaluation note* Diagnosis Encounter for infertility Hormone disorder Unspecified endocrine disorder documented in this encounter [facility]* Diagnosis Female infertility Female infertility of unspecified origin History of miscarriage Personal history of other genital system and obstetric disorders documented in this encounter [facility]* Diagnosis Missed menses , unspecified gestational age Encounter for supervision of normal first in first trimester Gastroesophageal reflux in Nausea and vomiting during documented in this encounter [facility] HealthcareEvaluation note* Diagnosis 11 weeks gestation of First trimester state, incidental Other constipation Gastroesophageal reflux in documented in this encounter [facility] HealthcareEvaluation note* Diagnosis Adnexal mass- Primary Other [...] gestation of ([facility]) documented in this encounter [facility] HealthcareEvaluation note* Diagnosis Second trimester ([facility]-HCC) state, [...] Description Date Surgical History tonsillectomy Surgical Historylaparoscopy AYLIEN Other InstructionsNot on filedocumented in this encounter [facility]Smart[employer] SystemInstructionsNot on filedocumented in this encounter [facility] SystemReason for referral (narrative)No reason for referral information availableFisher[facility] Work Phone: Summary Purpose Family History Relationship Condition Age at Onset Recorded Date/T juliette father Congestive heart failure Unknown Advance Directives TypeDate RecordedPatient RepresentativeExplanationAdvance Directives and Living WillPower of Correspondence School Teacher Advance Directive Response Recorded Date/ Time Advance Directives No August 08 7:47am Advance Directive Response Recorded Date/ Time Advance Directives No August 08 8:47am Discharge Instructions * Instructions* Keyla Leyva MD - 02/01/2019 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 * Abdominal Pain (Slovenian) * Appendicitis (Slovenian) documented in this encounter Assessments Diagnosis Abdominal [...] section and content) DATE CREATED AUTHOR 02/01/2019 [facility] DATE CREATED AUTHOR AUTHOR'S ORGANIZ ATION 05/05/2023 [facility] DATE CREATED AUTHOR AUTHOR'S ORGANIZ ATION 11/13/2024 [facility] DATE CREATED AUTHOR AUTHOR'S ORGANIZ ATION 11/13/2024 [facility] DATE CREATED AUTHOR AUTHOR'S ORGANIZ ATION 12/12/2024 [facility] DATE CREATED AUTHOR AUTHOR'S ORGANIZ ATION 01/26/2025 [facility] DATE CREATED AUTHOR AUTHOR'S ORGANIZ ATION 03/14/2025 [facility] EPIC Reason for Visit (unrecogniz ed section and content) ReasonCommentsRoutine VisitSpecialtyDiagnoses / ProceduresReferred By ContactReferred To ContactObstetrics and Gynecology Diagnoses Enlarged & Heterogeneous Bilateral Ovaries 2.3cm Isoechoic Left-sided Lesion Possible Endometrioma Procedures [place] UNLISTED EVALUATION AND MANAGEMENT SERVICE [facility] [address] [place] [address] Jack Woods, DO [address] [address] [place] [address] Phone: tel: fax: Referral IDStatusReasonStart DateExpiration DateVisits RequestedVisits [id number] PainRLQ pain x 1 hourReasonCommentsInfertilityReasonCommentsAmenorrheaReasonCommentsEnlarged & Heterogeneous [...] Status: Inactive Member Role Status Dates Zachary aMyes MD Primary Care Provider Active Start: January 05, 2024 End: January 04gal Woods DOAttending ProviderActiveStart: January 05, 2024 End: January 05, 2024Team MemberRelationshipSpecialtyStart DateEnd Alberto Mayes MD [address] [place] [phone] PCP - Bocvpef60/19/23 Paloma Vazquez DO [address] [place] [address] Referring PhysicianObstetrics and Hebwlrofkd62/12/23Te MemberRelationship SpecialtyStart DateEnd Alberto Mayes MD [address] [phone] PCP [facility]05/02/23 Paloma Vazquez DO [address] [place] [address] Referring PhysicianObstetrics and Rrkdxkdoge32/12/23Te MemberRelationship SpecialtyStart DateEnd Date Alberto Mayes MD [address] [place] [phone] PCP Jtbgozk53/19/23 Paloma Vazquez DO [address] [place] [address] Referring PhysicianObstetrics and Bopdefvvui07/12/23Te MemberRelationship SpecialtyStart DateEnd Date Alberto Mayes MD [address] [place] [phone] PCP - Crhhwpy02/19/23 Paloma Vazquez DO [address] [place] [address] Referring PhysicianObstetrics and Rddcprreem16/12/23Te MemberRelationship SpecialtyStart DateEnd Date Alberto Mayes MD [address] [place], [place] [address] [phone] PCP - Hxtfvlv08/19/23 Paloma Vazquez DO [address] [place] [address] Referring PhysicianObstetrics and Jfmwcxgquc63/12/23Te MemberRelationship SpecialtyStart DateEnd Date Alberto Mayes MD [address] [place], [place] [address] [phone] PCP - Qvgffdk98/19/23 Paloma Vazquez DO [address] [place] [address] Referring PhysicianObstetrics and Hfpkapgzqq74/12/23Te MemberRelationship SpecialtyStart DateEnd Date Alberto Mayes MD [address] [place] [address] PCP - Lfglodc33/19/23 Paloma Vazquez DO [address] [place] [address] Referring PhysicianObstetrics and Evedfyrkjk26/12/23Te MemberRelationship SpecialtyStart DateEnd Date Alberto Mayes MD [address] [place] [address] PCP - Ilwidgy11/19/23 Paloma Vazquez DO [address] [place] [address] Referring PhysicianObstetrics and Wltgjrqcun45/12/23Team MemberRelationship SpecialtyStart DateEnd Date Alberto Mayes MD [address] [place] [address] PCP - Qwuszej13/19/23 Paloma Vazquez DO [address] [place] [address] Referring PhysicianObstetrics and Gcwsygdwzp06/12/23Team MemberRelationship SpecialtyStart DateEnd Date Alberto Mayes MD [address] [place] [address] PCP - Zcaixrd65/19/23 Paloma Vazquez DO [address] [place] [address] Referring PhysicianObstetrics and Juzeofjvvc30/12/23 Team Status: Inactive Member Role Status Dates Jack Woods DO Attending Provider Active Start : November 05, 2024 End: November 05, 2024Team MemberRelationshipSpecialtyStart DateEnd Date Alberto Mayes MD [address] [place] [address] PCP - Txfupwr48/19/23 Paloma Vazquez DO [address] [place] [address] Referring PhysicianObstetrics and Cieoeuawie21/12/23Team MemberRelationship SpecialtyStart DateEnd Date Alberto Mayes MD PCP - Ysyyylr68/23Team MemberRelationshipSpecialtyStart DateEnd Date Alberto Mayes MD PCP - Jdbhppm65/23Team MemberRelationshipSpecialtyStart DateEnd Date Alberto Mayes MD PCP - Kcofxeu38/Team MemberRelationshipSpecialtyStart DateEnd Date Alberto Mayes MD PCP - Vqhkatd99/23Team MemberRelationshipSpecialtyStart DateEnd Date Alberto Mayes MD PCP - Vzikakr21/23Team MemberRelationshipSpecialtyStart DateEnd Date Alberto Mayes MD PCP - Bctkczd85/23Team MemberRelationshipSpecialtyStart DateEnd Date Alberto Mayes MD PCP - Numszmp71//23Team MemberRelationshipSpecialtyStart DateEnd Date Alberto Mayes MD PCP - Otvarjs70//23Team MemberRelationshipSpecialtyStart DateEnd Date Alberto Mayes MD PCP - Ykkpaij45/19/23Te MemberRelationshipSpecialtyStart DateEnd Date Alberto Mayes MD [facility] - [place] [address]Te MemberRelationshipSpecialtyStart DateEnd Date Alberto Mayes MD [facility] - [place] [address]Te MemberRelationshipSpecialtyStart DateEnd Date Alberto Mayes MD [facility] - Dmnmztj90/19/23 Goals (unrecognized section and content) Goals may [...] BE BASED ON THE PRIMARY CLINICAL RECORDS. [facility]. provides no warranty or guarantee of the accuracy or completeness of information in this document.
[2025-04-22] MEDS: 0.9 % SODIUM CHLORIDE 1,000 ML 1000 ML IV ×2 (06:00→06:32)
[2025-04-22 06:15] LABS: Hematocrit 32.4 % (36.0-48.0); Hemoglobin 10.8 g/dL (12.0-16.0); Immature Granulocytes Abs Auto 0.07 10^3/uL (0.00-0.03); Immature Granulocytes Pct Auto 0.9 % (0.0-0.5); Lymphocytes Absolute Auto 1.7 10^3/uL (1.2-3.8); Mean Corpuscular HGB Conc 33.3 g/dL (29.9-35.2); Mean Corpuscular Hemoglobin 28.3 pg (26.7-34.0); Mean Corpuscular Volume 84.8 fL (81.0-99.0); Platelet Count 306 10^3/uL (150-450); Red Blood Count 3.82 10^6/uL (4.20-5.40); White Blood Count 7.9 10^3/uL (4.0-11.0)
[2025-04-22 06:19] LABS: Glucose Urine UA NEGATIVE (NEGATIVE)
[2025-04-22] MEDS: FAMOTIDINE/PF 20 MG/2 ML VIAL IV (06:22)
[2025-04-22] MEDS: METOCLOPRAMIDE HCL 10 MG/2 ML VIAL IVP (06:22)
[2025-04-22] MEDS: CITRIC ACID/SODIUM CITRATE 30 ML SOLUTION ORACIT SHOHL'S SOLN PO (06:22)
[2025-04-22 06:32] LABS: Cast Seen? NONE SEEN #/LPF (NONE SEEN); Crystals Seen? Seen #/HPF (None Seen); Urine Culture Indicated YES-FRMC
[2025-04-22 06:42] LABS: Cannabinoid Screen Urine NEGATIVE (NEGATIVE); Methamphetamines Screen Urine NEGATIVE (NEGATIVE); Tricyclic Antidepressant Urine NEGATIVE (NEGATIVE)
[2025-04-22] MEDS: CEFAZOLIN SODIUM/DEXTROSE,ISO 2 GM/50 ML PIGGYBACK IV ×2 (07:29→13:03)
--- NOTE | 2025-04-22 08:20 | PM.ONB ---
Brief Operative Note Date of procedure: 04/22/25 Pre-op diagnosis general: iup at 39wks, pots syndrome, refusing trial of labor Post-op diagnosis: same as pre-op Procedure: NAME OF PROCEDURE: [ section ] PROCEDURE: Patient was taken back to the Operating Room where she was given a spinal anesthesia with Duramorph without difficulty. She was prepped and draped in the normal sterile fashion. A Pfannenstiel skin incision was then made 2 cm above the symphysis pubis and carried down to underlying rectus fascia using a Bovie. The fascia was incised in the midline and extended laterally using Arana scissors. Two Renee clamps were placed on the superior aspect of the fascia and dissected off the underlying rectus muscles. The same was performed on the inferior aspect as well. The muscles were then in the midline. Peritoneum was identified and entered bluntly. The peritoneum was then extended superiorly and inferiorly with good visualization of the bladder. The bladder blade was inserted. A low transverse incision was made on the patient's uterus and extended laterally digitally. The infant was then delivered atraumatically after the bladder blade was removed in the cephalic position. The cord was clamped and cut. Cord blood was obtained. The infant was handed off to awaiting team. The patient's placenta was spontaneously delivered. The uterus was then exteriorized. The uterus was cleared of all clots and debris. The bladder blade was reinserted. The patient's uterine incision was closed using #0 Vicryl in a running lock fashion. Excellent hemostasis was assured. The uterus was then returned to the patient's abdomen. The patient's abdomen was copiously irrigated using warm saline. Peritoneal gutters were cleared of all clots and debris. Again excellent hemostasis was assured. The patient's peritoneum was closed using 3-0 Vicryl in a running fashion. The patient's fascia was closed using #0 Vicryl in a running fashion. The patient's skin was closed using 4-0 Vicryl subcuticularly. The patient tolerated the procedure well. Sponge, lap, and needle counts were correct x2. The patient was taken to the Recovery Room in stable condition. Anesthesia: spinal Surgeon: Jack Woods Auto Damage Trainee: Nuria Chen Estimated blood loss (mL): 575 Pathology: none sent Condition: stable Disposition: PACU Urinary Catheter Management Urinary Catheter Management Urethral: Cath placed during this visit: no
--- NOTE | 2025-04-22 08:22 | PM.OBPRCCS ---
Procedure Pre-op/Post-op diagnoses: Pre-Op/Post-Op Diagnoses Operation Date: 04/22/25 07:30 <No data on this case meets the specified criteria> Procedure: Procedures Operation Date: 04/22/25 07:30 Actual Procedure Side Surgeon p Primary Not Applicable Jack Woods DO Piping Design Specialist: Nuria Chen Estimated blood loss (mL): 575 Disposition: PACU Anesthesia type: Spinal
[2025-04-22] MEDS: 0.9 % SODIUM CHLORIDE 1,000 ML 125 ML IV (10:51)
[2025-04-22] MEDS: KETOROLAC TROMETHAMINE 30 MG/ML VIAL IVP ×2 (14:16→20:42)
[2025-04-22] MEDS: ACETAMINOPHEN 500 MG TABLET 1000 MG PO (17:33)
--- NOTE | 2025-04-22 19:22 | W.PC.ACHO ---
Registration Status: ADM IN Primary Language: Bots[place] Preferred Language: [place]an Report given to Bambi TERRAZAS at 1915. Care relinquished. Active Medications Generic Name Dose Route Start Last Admin Trade Name Freq PRN Reason Stop Dose Admin Acetaminophen 1,000 mg 04/22/25 17:00 04/22/25 17:33 Acetaminophen 500 Mg Tablet PO 04/24/25 16:48 1,000 mg Q8H VALDO Administration Al Hydroxide/Mg Hydroxide 2,400 mg 04/22/25 08:23 Magnesium Hydroxide 2,400 Mg/10 Ml Oral.Susp PO Q6H PRN Dyspepsia Diphenhydramine HCl 25 mg 04/22/25 08:23 Diphenhydramine Hcl 50 Mg/Ml Vial IV 04/23/25 08:23 Q6H PRN Itching Diphtheria/Tetanus/Acell Pertussis 0.5 ml 04/24/25 09:00 Diphth,Pertuss(Acell),Tet Vac 0.5 Ml Syringe IM 04/24/25 09:01 .ONCE ONE Docusate Sodium 100 mg 04/23/25 09:00 Docusate Sodium 100 Mg Capsule PO BID VALDO Enoxaparin Sodium 40 mg 04/22/25 21:00 Enoxaparin Sodium 40 Mg/0.4 Ml Syringe SUBQ Q24H VALDO Oxytocin/Sodium Chloride 20 units in 1,000 mls @ 125 mls/hr 04/22/25 05:29 Pitocin 20 Unit/1,000 Ml-Ns IV Q8H PRN POST DELIVERY Promethazine HCl 25 mg/ Sodium 51 mls @ 204 mls/hr 04/22/25 08:23 Chloride IV Q6H PRN Nausea And Vomiting Sodium Chloride 1,000 mls @ 125 mls/hr 04/22/25 08:23 04/22/25 15:00 Sodium Chloride 0.9% 1,000 Ml IV Infused .Q8H PRN Infusion IF NOT TOLERATING PO FLUIDS OR Ibuprofen 800 mg 04/22/25 08:23 Ibuprofen 400 Mg Tablet PO Q8H PRN Pain Ketorolac Tromethamine 30 mg 04/22/25 08:23 04/22/25 14:16 Ketorolac Tromethamine 30 Mg/Ml Vial IVP 04/24/25 08:24 30 mg Q6H PRN Administration Pain Measles/Mumps/Rubella Vaccine Live 0.5 ml 04/24/25 09:00 Measles,Mumps,Rubella Vacc/Pf 0.5 Ml Vial SQ 04/24/25 09:01 .ONCE ONE Nalbuphine HCl 10 mg 04/22/25 08:23 Nalbuphine Hcl 10 Mg/Ml Ampule IV 04/23/25 08:23 Q3H PRN Itching Ondansetron HCl 4 mg 04/22/25 08:23 Ondansetron Pf 4 Mg/2 Ml Vial IV Q6H PRN Nausea And Vomiting Ondansetron HCl 4 mg 04/22/25 08:23 Ondansetron 4 Mg Rapdis Tablet PO Q6H PRN Nausea And Vomiting Oxycodone/Acetaminophen 1 tab 04/22/25 08:23 Oxycodone Hcl/Acetaminophen 5mg/325mg PO Q4H PRN Pain Scale 4-6 Oxycodone/Acetaminophen 2 tab 04/22/25 08:23 Oxycodone Hcl/Acetaminophen 5mg/325mg PO Q4H PRN Pain Scale 7-10 Senna 17.2 mg 04/22/25 20:00 Sennosides 8.6 Mg Tablet PO QHS PRN Constipation Simethicone 80 mg 04/22/25 08:23 Simethicone 80 Mg Tab.Chew PO QID PRN Abdominal Distention Diet Category Date Time Status Regular Consistency Diet Diet 04/22/25 08:23 Active Consults Category Date Time Status Consult to Anesthesiology Routine Cons 04/22/25 Ordered IV Insertion/Site Date of IV Line Insertion [20g 04/22/25 right Forearm] IV Insertion Time [20g right 05:55 Forearm] Neurology Patient orientation (short person,place,time,situation list) Respiratory Pulse Oximetry 98 Pulse Oximetry 98 Pulse Oximetry 98 Pulse Oximetry 98 Pulse Oximetry 98 Pulse Oximetry 97 Pulse Oximetry 97 Pulse Oximetry 97 Pulse Oximetry 98 Pulse Oximetry 97 Pulse Oximetry 97 Pulse Oximetry 97 Pulse Oximetry 98 Pulse Oximetry 98 Pulse Oximetry 98 Pulse Oximetry 97 Pulse Oximetry 97 Pulse Oximetry 98 Pulse Oximetry 98 Pulse Oximetry 98 Pulse Oximetry 97 Pulse Oximetry 98 Pulse Oximetry 98 Pulse Oximetry 98 Pulse Oximetry 98 Pulse Oximetry 98 Pulse Oximetry 98 Pulse Oximetry 98 Pulse Oximetry 98 Pulse Oximetry 98 Pulse Oximetry 98 Pulse Oximetry 97 Pulse Oximetry 98 Pulse Oximetry 99 Pulse Oximetry 100 Pulse Oximetry 99 Pulse Oximetry 98 Pulse Oximetry 98 Pulse Oximetry 97 Pulse Oximetry 97 Pulse Oximetry 96 Pulse Oximetry 96 Pulse Oximetry 97 Oxygen Delivery Method Room Air Oxygen Delivery Method Room Air Oxygen Delivery Method Room Air Oxygen Delivery Method Room Air Oxygen Delivery Method Room Air Oxygen Delivery Method Room Air Oxygen Delivery Method Room Air Oxygen Delivery Method Room Air Cardiology Heart Sounds Regular,Strong Heart Sounds Regular Bowels Bowel Pattern No Bowel Movement Bowel Pattern No Bowel Movement Catheter Urinary Catheter Date of 04/22/25 Insertion [Urethral] Urinary Catheter Time of 07:45 Insertion [Urethral]
[2025-04-22] MEDS: ENOXAPARIN SODIUM 40 MG/0.4 ML SYRINGE SUBQ (20:42)
[2025-04-23] VITALS (8 sets, daily range): BP systolic 89–110; BP diastolic 55–71; PULSE 67–83; TEMP 36.6–36.9; O2SAT 96–97
[2025-04-23] MEDS: ACETAMINOPHEN 500 MG TABLET 1000 MG PO ×3 (03:06→20:34)
[2025-04-23] MEDS: KETOROLAC TROMETHAMINE 30 MG/ML VIAL IVP ×3 (06:11→18:00)
[2025-04-23 06:16] LABS: Hematocrit 26.3 % (36.0-48.0); Hemoglobin 8.7 g/dL (12.0-16.0); Immature Granulocytes Abs Auto 0.15 10^3/uL (0.00-0.03); Immature Granulocytes Pct Auto 1.1 % (0.0-0.5); Lymphocytes Absolute Auto 2.6 10^3/uL (1.2-3.8); Mean Corpuscular HGB Conc 33.1 g/dL (29.9-35.2); Mean Corpuscular Hemoglobin 28.5 pg (26.7-34.0); Mean Corpuscular Volume 86.2 fL (81.0-99.0); Platelet Count 237 10^3/uL (150-450); Red Blood Count 3.05 10^6/uL (4.20-5.40); White Blood Count 13.1 10^3/uL (4.0-11.0)
--- NOTE | 2025-04-23 07:36 | P.OBPN_ITS ---
OB - PN: Subj Subjective Patient comments: no complaints and pain well controlled [place] status: doing well Exam Constitutional Vital Signs, click to edit/add: Last Vital Signs Temp 97.9 F 04/23/25 06:00 Pulse 72 04/23/25 06:00 Resp 16 04/23/25 06:00 BP 100/67 04/23/25 06:00 Pulse Ox 97 04/23/25 06:00 O2 Del Method Room Air 04/23/25 06:00 Documenting provider has reviewed patient's vital signs: yes Common normals: no apparent distress Respiratory Common normals: normal respiratory effort and clear to auscultation bilaterally Cardio Common normals: regular rate and regular rhythm GI Common normals: Normal to inspection, nondistended, normoactive bowel sounds present Extremity Common normals: no clubbing, cyanosis or edema and no calf tenderness Results Labs Labs: Short CBC 04/23/25 Range/Units 06:09 WBC 13.1 H (4.0-11.0) 10^3/uL Hgb 8.7 L (12.0-16.0) g/dL Hct 26.3 L (36.0-48.0) % Plt Count 237 (150-450) 10^3/uL Urinary Catheter Management Urinary Catheter Management Urethral: Cath placed during this visit: yes, but has since been removed by the rox se Insertion date: 04/22/25 Insertion time: 07:45 Removal date: 04/23/25 Removal time: 06:20 OB - PN: A/P Plan - day: 1 Plan: routine postop care Time Spent with Patient Time: Total time spent is greater than 50% in coordination of care (as documented) at patient's floor/unit and/or counseling patient: Total time spent with greater than 50% in coordination of care (as documented) at patient's floor/unit and/or counseling patient: less than 15 minutes
[2025-04-23] MEDS: DOCUSATE SODIUM 100 MG CAPSULE PO ×2 (09:42→20:34)
[2025-04-23] MEDS: SENNOSIDES 8.6 MG TABLET 17.2 MG PO (18:00)
[2025-04-23] MEDS: ENOXAPARIN SODIUM 40 MG/0.4 ML SYRINGE SUBQ (20:34)
[2025-04-23] MEDS: SIMETHICONE 80 MG TAB.CHEW PO (20:39)
[2025-04-24 00:30] VITALS: BP 124/82; PULSE 82; TEMP 36.7
[2025-04-24] MEDS: SIMETHICONE 80 MG TAB.CHEW PO ×2 (01:57→09:15)
[2025-04-24] MEDS: KETOROLAC TROMETHAMINE 30 MG/ML VIAL IVP ×2 (01:57→09:15)
[2025-04-24 09:02] VITALS: BP 115/80; PULSE 89; TEMP 36.9
[2025-04-24] MEDS: DOCUSATE SODIUM 100 MG CAPSULE PO (09:15)
[2025-04-24 09:20] VITALS: O2SAT 97
--- NOTE | 2025-04-24 12:05 | PM.OBDS ---
DS: Providers Provider Date of admission: 04/22/25 05:24 Primary care physician: Alberto Mayes MD Admitting clinician: Jack Woods Attending physician on admission: Jack Woods Consults: 04/22/25 Consult to Anesthesiology Routine Consulting Provider: Jack Woods Reason for consultation: c/s Has provider been notified: Yes Attending physician on discharge: KAELA GARCIA Discharging clinician: KAELA GARCIA Anticipated date of discharge: 04/24/25 DS: Diagnosis Discharge Diagnosis (1) History of primary section: Onset Date: ~04/22/25 Assessment and plan: done for refusal of labor home today (2) Anemia affecting : Assessment and plan: ferrous sulfate bid Qualifiers: Trimester: unspecified trimester Qualified Code(s): O99.019 - Anemia complicating , unspecified trimester OB - DS: Summary Hospital Course Hospital Course: 25 yo now P1 presented at 39 weeks with refusal of trial of labor for a primary . She was on iron once a day for anemia but still presented with anemia and was anemic after delivery. She will go home with iron twice daily. She delivered via primary LTCS a 7 lb 3 oz with Apgars of 9 and 9 at 1 and 5 minutes. 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 She will keep trying different pumping techniques and working with that side. Peripartum Data - Procedures: Procedures Operation Date: 04/22/25 07:30 Actual Procedure Side Surgeon p Primary Not Applicable Jack Woods DO Peripartum Data - Vaginal Delivery Procedures: Procedures Operation Date: 04/22/25 07:30 Actual Procedure Side Surgeon p Primary Not Applicable Jack Woods DO Complications complications: none Delivery method: section Gender: male Discharge plan: home Status at Discharge Functional status at discharge: independent ambulation Overall status at discharge: patient is progressing back to baseline Time Spent with Patient Time attestation: Total time spent providing and/or coordinating discharge services: Time spent: less than 30 minutes Exam Constitutional Vital Signs, click to edit/add: Last Vital Signs Temp 98.4 F 04/24/25 09:02 Pulse 89 04/24/25 09:02 Resp 16 04/24/25 09:20 BP 115/80 04/24/25 09:02 Pulse Ox 97 04/24/25 09:20 O2 Del Method Room Air 04/24/25 09:20 Documenting provider has reviewed patient's vital signs: yes Common normals: no apparent distress, healthy appearing, alert and well nourished General appearance: cooperative and well kempt HENMT Common normals: normocephalic Face and sinus: normal facial exam Eye Common normals: EOMs intact bilaterally Respiratory Common normals: normal respiratory effort and no retractions GI Palpation: soft Other: Fundus firm below umbilicus Incision is clean/ dry/ intact with steri-strips in place Back & Pelvis Common normals: no CVA tenderness Extremity Common normals: no pedal edema Neuro Common normals: oriented x3 Psych Common normals: mental status grossly normal Judgement: judgment good DS: Data Data Completed and Pending Labs on day of discharge: Preliminary micro results at discharge 04/22/25 05:45 Urine Culture - Preliminary Urine,Clean Catch Pending - Specimen sent to [facility] Discharge Plan Discharge Disposition: Home, Self-Care Condition: Good Discharge Medications: New ibuprofen 800 mg tablet 800 mg PO Q8H PRN (Reason: pain) 14 Days Qty: 40 0RF oxycodone-acetaminophen [Percocet] 5-325 mg tablet 1 tab PO Q6H PRN (Reason: pain) 5 Days Qty: 20 0RF Rx Instructions: g89.18 ferrous sulfate 325 mg (65 mg iron) Tablet 325 mg PO BID Qty: 120 0RF Continued ondansetron HCl 4 mg tablet 4 mg PO Q6H PRN (Reason: nausea and vomiting) omeprazole 40 mg capsule,delayed release(DR/EC) 40 mg PO DAILY PNV no.95-ferrous fumarate-FA [] 28 mg iron- 800 mcg tablet 1 tab PO DAILY aspirin 81 mg capsule 81 mg PO DAILY ondansetron HCl 4 mg tablet 4 mg PO Q6H PRN (Reason: nausea) cephalexin 500 mg capsule 500 mg PO TID 10 Days Qty: 30 0RF clindamycin HCl [Cleocin HCl] 300 mg capsule 300 mg PO TID 7 Days Qty: 21 0RF Activity: increase activity as tolerated and other Activity Detail: no driving for 2 weeks. no sexual activity for 6 weeks. no sitting in a tub for 6 weeks but showers are fine. minimal stairs for 2 weeks. Diet: regular diet Print Language: Moroccan Forms: Portal Instructions Follow Up Appointments: 2 weeks for post-op check and 6 weeks for post visit Discharge location: home
[2025-04-24] MEDS: ACETAMINOPHEN 500 MG TABLET 1000 MG PO (13:05)
[2025-04-24] MEDS: IBUPROFEN 400 MG TABLET 800 MG PO (16:57)
[2025-04-24] MEDS: DIPHTH,PERTUSS(ACELL),TET VAC 0.5 ML SYRINGE IM (17:12)
== END 2025-04-24 17:15 | disposition home or self-care (01) | DRG 788 ==
PROVIDERS: Admitting Provider Obstetrics & Gynecology; PCP Family Medicine; Visit Provider Obstetrics & Gynecology
PROC: 10D00Z1 Extraction of Products of Conception, Low, Open Approach (ICD-10-PCS; CPT 59514; principal; 2025-04-22 07:30)
DX: O99.354 Diseases of the nervous system complicating childbirth (principal); Z3A.39 39 weeks gestation of pregnancy; Z37.0 Single live birth; G90.A Postural orthostatic tachycardia syndrome [POTS]; O99.02 Anemia complicating childbirth; D64.9 Anemia, unspecified
CPT/HCPCS: 36415; 64488; 80307; 81001; 85025; 86850; 86900; 86901; 87086; 87088; 90715; 94667; 94668; J0131; J0665; J0690; J1100; J1200; J1650; J1885; J2274; J2371; J2405; J2590; J2765; J3490

== ENCOUNTER 2025-04-29 08:07 | Outpatient (OUT) | payer BC, SELFPAY ==
--- NOTE | 2025-04-29 12:23 | PC.NURSE ---
Daphney, Morteza and 7 day old Guy arrive for follow up appointment. Daphney arrives very pale and with shaking hands. has not been keeping any fluids or food down since early AM 04/26/2025. Taking her prescribed Zofran every 4 hours and continues to vomit even with medication. also has pain in her stomach. No fever, or body aches. No one in close contact has been ill. Pt is planning to go to ED after this appointment for evaluation. Daphney has many questions about . remains at 10% weight loss. Right breast hard and engorged. Had lump removed from under areola previously, has incision around the areola. Unable to hand express, pump or express any milk. Baby very frustrated on right breast. Discussed feeding plan of feeding from left breast only. Cabbage to right breast to relieve engorgement and shut down milk producing cell. Verbalize understanding. Daphney describes nursing Guy on left breast easily. Has been using the shield but not needed today as baby latches with minimal effort. pumps after feed and generally obtains 8 ml of milk. Gives pumped milk back to infant due to weight. Unclear if low supply is related to inability to take in food or fluids or if naturally has lower supply. Will continue to nurse Guy every 2-2.5 hours, for as long as he is active and then will offer supplemental bottle of formula up to 30 ml while Daphney pumps left breast for additional stimulation. Both verbalize understanding. Demo of slow paced feeding for Morteza and mixing formula booklet given as well. Guy looks well, VSS and assessment WNL except for 10% weight loss. Daphney with VSS , call placed to Dr Woods in his office. Nurse Aguilera given complaints of pt and VS to relay to Dr Woods. Calls back and Dr Woods prefers pt to be seen in ED as planned. , and Daphney to ED, declines wheelchair. To return 05/02/2025 for further support.
== END 2025-04-29 12:52 | disposition home or self-care (01) ==
LOC: FBCO 08:11
PROVIDERS: PCP Family Medicine; Visit Provider Obstetrics & Gynecology
DX: Z39.1 Encounter for care and examination of lactating mother (principal)

== ENCOUNTER 2025-04-29 10:07 | Emergency (ER) | payer BC, SELFPAY ==
[2025-04-29 10:14] VITALS: BP 120/76; PULSE 66; TEMP 36.4; O2SAT 98; BMI 29.1
[2025-04-29 10:19] VITALS: O2SAT 99
[2025-04-29 10:20] VITALS: BP 120/76; O2SAT 99
[2025-04-29] MEDS: 0.9 % SODIUM CHLORIDE 1,000 ML 1000 ML IV (10:39)
[2025-04-29 10:51] LABS: Hematocrit 38.3 % (36.0-48.0); Hemoglobin 12.4 g/dL (12.0-16.0); Immature Granulocytes Abs Auto 0.17 10^3/uL (0.00-0.03); Immature Granulocytes Pct Auto 1.5 % (0.0-0.5); Lymphocytes Absolute Auto 1.7 10^3/uL (1.2-3.8); Mean Corpuscular HGB Conc 32.4 g/dL (29.9-35.2); Mean Corpuscular Hemoglobin 28.3 pg (26.7-34.0); Mean Corpuscular Volume 87.4 fL (81.0-99.0); Platelet Count 413 10^3/uL (150-450); Red Blood Count 4.38 10^6/uL (4.20-5.40); White Blood Count 11.5 10^3/uL (4.0-11.0)
[2025-04-29] MEDS: PROCHLORPERAZINE 10 MG/2 ML VIAL IV (10:55)
[2025-04-29 11:33] LABS: Alanine Aminotransferase 7 U/L (14-59); Albumin Globulin Ratio 0.7; Albumin Level 2.9 g/dL (3.4-5.0); Alkaline Phosphatase 144 U/L (46-116); Anion Gap 13.4; Aspartate Amino Transferase 15 U/L (15-37); Blood Urea Nitrogen 6.0 mg/dL (7.0-18.0); Calcium 8.6 mg/dL (8.5-10.1); Carbon Dioxide 28.1 mmol/L (21.0-32.0); Chloride 102 mmol/L (98-107); Estimated GFR (African America >60 (>=60 mL/min/1.73m^2); Estimated GFR (Non-African Ame >60 (>=60 mL/min/1.73m^2); Globulin 3.9 g/dL; Glucose 85 mg/dL (74-106); Potassium 3.5 mmol/L (3.5-5.1); Sodium 140 mmol/L (136-145); Total Protein 6.8 g/dL (6.4-8.2)
[2025-04-29 12:13] VITALS: O2SAT 98
[2025-04-29 12:14] VITALS: BP 121/82
--- NOTE | 2025-04-29 12:54 | ED.NAVMDI1 ---
HPI - Nausea/Vomiting/Diarrhea General Chief complaint: Nausea/Vomiting/Diarrhea Stated complaint: POST OP NAUSEA VOMITING Time Seen by Provider: 04/29/25 10:27 Source: patient Mode of arrival: walk-in History of Present Illness HPI Narrative: Patient just had a almost a week ago presenting to the ER after she started having nausea vomiting on Monday, she mentioned that she was already called to be started on antibiotic mostly Macrobid when she had a urine in the hospital before delivery and urine culture. The patient herself did not have any urinary symptoms but her main concern with nausea and vomiting and not able to keep anything in for the last 2 days No abdominal pain no blood in urine no other concerns Related Data Home Medications ?Medication ?Instructions ?Recorded ?Confirmed ondansetron HCl 4 mg tablet 4 mg PO Q6H PRN nausea and vomiting 11/12/24 04/29/25 vit no.95-ferrous 1 tab PO DAILY 11/12/24 04/29/25 fumarate 28 mg-folic acid 800 mcg tablet () ondansetron HCl 4 mg tablet 4 mg PO Q6H PRN nausea 04/22/25 04/22/25 Previous Rx's ?Medication ?Instructions ?Recorded ibuprofen 800 mg tablet 800 mg PO Q8H PRN pain 14 days #40 04/23/25 tabs ferrous sulfate 325 mg (65 mg 325 mg PO BID #120 tabs 04/24/25 iron) tablet ondansetron 4 mg disintegrating 4 mg PO Q8H PRN nausea and 04/29/25 tablet vomiting 5 days #20 tabs promethazine 25 mg tablet 12.5 mg (1/2 x 25 mg) PO TID PRN 04/29/25 nausea and vomiting #10 tabs Allergies Allergy/AdvReac Type Severity Reaction Status Date / Time cephalexin (From Keflex) Allergy Nausea Verified 04/29/25 10:12 ciprofloxacin (From Cipro) AdvReac Intermediate N/V Verified 04/29/25 10:12 prednisone AdvReac Intermediate n/v Verified 04/29/25 10:12 Review of Systems ROS Status of ROS 10 or more systems reviewed and unremarkable except as noted in history and below [facility] Medical History (Updated 04/29/25 @ 13:05 by Lizet Reddy MD) Myalgia ?M79.10 - Myalgia, unspecified site (ICD-10) Near syncope ?R55 - Syncope and collapse (ICD-10) Dehydration ?E86.0 - Dehydration (ICD-10) Fibroadenoma of right breast ?D24.1 - Benign neoplasm of right breast (ICD-10) Endometriosis ?N80.9 - Endometriosis, unspecified (ICD-10) Surgical History (Updated 04/28/25 @ 00:00 by ) S/P excision of fibroadenoma of breast ?Z98.890 - Other specified postprocedural states (ICD-10) ?Z86.018 - Personal history of other benign neoplasm (ICD-10) Family History (Updated 04/22/25 @ 06:12 by Rina Petit) Mother Family history of diabetes mellitus Father Family history of hypertension Other Family history of CHF (congestive heart failure) Social History (Updated 04/22/25 @ 06:13 by Rina Petit) Within the past year, how often did you have a drink containing alcohol: never Score interpretation: A score less than 3 is consistent with normal alcohol consumption. 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 General: Well-appearing and in no apparent distress. Skin: Warm, dry, no pallor noted. No rash. Head: Normocephalic, atraumatic. Neck: Supple, non-tender. Cardiovascular: Regular Rate and Rhythm without murmur, gallop or rub. Respiratory: No accessory muscle use or respiratory distress. Lungs are clear to auscultation, no wheezing, rales or rhonchi Chest Wall: no tenderness Back: No midline thoracic or lumbar vertebral tenderness. No CVA tenderness Musculoskeletal: normal ROM, no calf or popliteal tenderness, no lower extremity edema/swelling GI: Abdomen is soft, non-distended. Normal bowel sounds. No masses appreciated. No tenderness to palpation. No rebound, guarding, or rigidity noted. Clean wound that is healing well Neurological: A&O x4. No cranial nerve dysfunction observed. No truncal ataxia. Moves all extremities. Sensation intact. Psychiatric: Cooperative and interactive. Normal mood and affect. Constitutional Vital Signs, click to edit/add: Last Vital Signs Temp 97.5 F L 04/29/25 10:14 Pulse 66 04/29/25 10:14 Resp 16 04/29/25 10:14 BP 121/82 04/29/25 12:14 Pulse Ox 98 04/29/25 12:13 O2 Del Method Room Air 04/29/25 10:14 Course Vital Signs Vital signs: Vital Signs Temperature 97.5 F L 04/29/25 10:14 Pulse Rate 66 04/29/25 10:14 Respiratory Rate 16 04/29/25 10:14 Blood Pressure 120/76 04/29/25 10:14 Pulse Oximetry 98 04/29/25 10:14 Oxygen Delivery Method Room Air 04/29/25 10:14 Temperature 97.5 F L 04/29/25 10:14 Pulse Rate 66 04/29/25 10:14 Respiratory Rate 16 04/29/25 10:14 Blood Pressure 121/82 04/29/25 12:14 Pulse Oximetry 98 04/29/25 12:13 Oxygen Delivery Method Room Air 04/29/25 10:14 MDM - Nausea/Vomiting/Diarrhea MDM Narrative Medical decision making narrative: CBC and chemistry showed no acute significant pathology Patient tolerated IV fluid and she was provided with at least 1 L of fluid here in the ER and initially the Zofran at home was not working and she was provided with 1 dose of Compazine after explained to her the side effect and since she is breast-feeding the fact that it might pass in the breast in case she continues to have that more than 1 dose After 1 dose the patient is feeling much better she is able to tolerate p.o. intake right now I did explain to the patient that Zofran is the main stay of treatment and Phenergan will be another way to control her nausea and vomiting The patient does not have any urinary symptoms she is still to take the Macrobid but not right now she will have to wait few days until she tolerate p.o. intake and the plan was to be discharged on disintegrating Zofran and that will be much help than the p.o. that she was using but in case the patient needed Phenergan then she have to stop breast-feeding because of the side effect that could cause her baby The patient understand that well and I did confirm that with the pharmacist Right now the patient just to continue hydration and take the disintegrating Zofran in case any she needed the Phenergan she will stop breast-feeding until she is done but she will continue to pump and dump the milk without feeding her kids But in case the patient continue using Zofran then no changes on the plan The patient to follow-up with the primary care within 2 to 3 days and to come back to the ER in case of any worsening of the current symptoms or any new symptoms or concerns Lab Data Labs: Lab Results 04/29/25 Range/Units 10:44 WBC 11.5 H (4.0-11.0) 10^3/uL RBC 4.38 (4.20-5.40) 10^6/uL Hgb 12.4 (12.0-16.0) g/dL Hct 38.3 (36.0-48.0) % MCV 87.4 (81.0-99.0) fL MCH 28.3 (26.7-34.0) pg MCHC 32.4 (29.9-35.2) g/dL RDW 13.4 (11.0-15.0) % Plt Count 413 (150-450) 10^3/uL MPV 9.5 (9.5-13.5) fL Neut % (Auto) 76.4 H (43.0-75.0) % Lymph % (Auto) 14.5 L (20.5-60.0) % Ralls % (Auto) 5.8 (1.7-12.0) % Eos % (Auto) 1.1 (0.9-7.0) % Baso % (Auto) 0.7 (0.2-2.0) % Neut # (Auto) 8.8 H (1.4-6.5) 10^3/uL Lymph # (Auto) 1.7 (1.2-3.8) 10^3/uL Ralls # (Auto) 0.7 (0.3-0.8) 10^3/uL Eos # (Auto) 0.1 (0.0-0.7) 10^3/uL Baso # (Auto) 0.1 (0.0-0.1) 10^3/uL Abs Immat Gran (auto) 0.17 H (0.00-0.03) 10^3/uL Imm/Tot Granulo (auto) 1.5 H (0.0-0.5) % Sodium 140 (136-145) mmol/L Potassium 3.5 (3.5-5.1) mmol/L Chloride 102 (98-107) mmol/L Carbon Dioxide 28.1 (21.0-32.0) mmol/L Anion Gap 13.4 BUN 6.0 L (7.0-18.0) mg/dL Creatinine 0.61 (0.55-1.02) mg/dL Est GFR ( Amer) >60 (>=60 mL/min/1.73m^2) Est GFR (Non-Af Amer) >60 (>=60 mL/min/1.73m^2) BUN/Creatinine Ratio 9.8 Glucose 85 (74-106) mg/dL Calcium 8.6 (8.5-10.1) mg/dL Total Bilirubin 0.3 (0.2-1.0) mg/dL AST 15 (15-37) U/L ALT 7 L (14-59) U/L Alkaline Phosphatase 144 H (46-116) U/L Total Protein 6.8 (6.4-8.2) g/dL Albumin 2.9 L (3.4-5.0) g/dL Globulin 3.9 g/dL Albumin/Globulin Ratio 0.7 Discharge Plan Discharge Chief Complaint: Nausea/Vomiting/Diarrhea Clinical Impression: Gastroenteritis Patient Disposition: Home, Self-Care Time of Disposition Decision: 13:01 Condition: Good Prescriptions / Home Meds: New ondansetron 4 mg tablet,disintegrating 4 mg PO Q8H PRN (Reason: nausea and vomiting) 5 Days Qty: 20 0RF promethazine 25 mg tablet 12.5 mg PO TID PRN (Reason: nausea and vomiting) Qty: 10 0RF Rx Instructions: 3 doses during day; last dose no later than 4 hr before bedtime No Action ondansetron HCl 4 mg tablet 4 mg PO Q6H PRN (Reason: nausea and vomiting) PNV no.95-ferrous fumarate-FA [] 28 mg iron- 800 mcg tablet 1 tab PO DAILY ondansetron HCl 4 mg tablet 4 mg PO Q6H PRN (Reason: nausea) ibuprofen 800 mg tablet 800 mg PO Q8H PRN (Reason: pain) 14 Days Qty: 40 0RF ferrous sulfate 325 mg (65 mg iron) Tablet 325 mg PO BID Qty: 120 0RF Print Language: Kyrgyz Instructions: Acute Nausea and Vomiting (DC) Referrals: Alberto Mayes MD [Primary Care Provider] - 1 week Discharge Date/Time: 04/29/25 13:21
== END 2025-04-29 13:21 | disposition home or self-care (01) ==
PROVIDERS: Emergency Provider Emergency Medicine; PCP Family Medicine
DX: O99.63 Diseases of the digestive system complicating the puerperium (principal); K52.9 Noninfective gastroenteritis and colitis, unspecified
CPT/HCPCS: 36415; 80053; 85025; 96361; 96374; 96375; 99284; J0780; J2405

== ENCOUNTER 2025-05-03 12:06 | Emergency (ER) | payer BC, SELFPAY ==
[2025-05-03 12:11] VITALS: BP 121/85; PULSE 82; TEMP 36.4; O2SAT 97; BMI 29.1
--- NOTE | 2025-05-03 12:22 | US_ITS ---
[place] [address] Patient Name: KORIN GRADY MRN: [id number] date: 2000 Sex: F Assigned Patient Location: ER Current Patient Location: ED.MAIN Accession/Order Number: [id number] Exam Date: 05/03/2025 12:49 Report Date: 05/03/2025 13:54 At the request of: REMBERTO LUU MD Procedure: US right upper quadrant LIMITED ABDOMINAL ULTRASOUND: CLINICAL HISTORY: Pain, recent delivery COMPARISON: None TECHNIQUE: Grayscale and color Doppler images of the right upper quadrant organs were obtained. FINDINGS: Pancreas: Visualized portions appear normal. Liver: Unremarkable. Gallbladder: Unremarkable. CBD: 2.9 mm RT KIDNEY: No Hydronephrosis US/US right upper quadrant IMPRESSION: NO ACUTE PROCESS. . Impression dictated by: Renan Reyna Jr., D.O. 05/03/2025 1:54 PM Dictation Location: [place] [id number] Electronically authenticated by: [id number] Y Date: 05/03/2025 13:54
--- NOTE | 2025-05-03 12:24 | ED.GENADUL1 ---
HPI HPI - General Adult General Chief complaint: Nausea/Vomiting/Diarrhea Stated complaint: NAUSEA & VOMITING Time Seen by Provider: 05/03/25 12:08 Source: patient Mode of arrival: walk-in Limitations: no limitations History of Present Illness HPI narrative: 25-year-old female who had a earlier this month presents for nausea and vomiting and some pain in her right upper quadrant. 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 She had been seen here few days ago and had blood work but did not have an ultrasound. No fever or hematemesis. She is breast-feeding. Related Data Home Medications ?Medication ?Instructions ?Recorded ?Confirmed ondansetron HCl 4 mg tablet 4 mg PO Q6H PRN nausea and vomiting 11/12/24 04/29/25 vit no.95-ferrous 1 tab PO DAILY 11/12/24 04/29/25 fumarate 28 mg-folic acid 800 mcg tablet () ondansetron HCl 4 mg tablet 4 mg PO Q6H PRN nausea 04/22/25 04/22/25 Previous Rx's ?Medication ?Instructions ?Recorded ibuprofen 800 mg tablet 800 mg PO Q8H PRN pain 14 days #40 04/23/25 tabs ferrous sulfate 325 mg (65 mg 325 mg PO BID #120 tabs 04/24/25 iron) tablet ondansetron 4 mg disintegrating 4 mg PO Q8H PRN nausea and 04/29/25 tablet vomiting 5 days #20 tabs promethazine 25 mg tablet 12.5 mg (1/2 x 25 mg) PO TID PRN 04/29/25 nausea and vomiting #10 tabs metoclopramide HCl 10 mg tablet 10 mg PO Q6H PRN nausea and 05/03/25 (Reglan) vomiting #20 tabs Allergies Allergy/AdvReac Type Severity Reaction Status Date / Time cephalexin (From Keflex) Allergy Nausea Verified 05/03/25 12:11 ciprofloxacin (From Cipro) AdvReac Intermediate N/V Verified 05/03/25 12:11 prednisone AdvReac Intermediate n/v Verified 05/03/25 12:11 Opioid HPI Opioid Management Most Recent Opioid Data: Last Pain Scale 5 Today, 12:11 Ur Phencyclidine Scrn, (NEGATIVE) Negative 04/22/25, 05:45 Review of Systems ROS Narrative A ten point review of systems is negative except as noted above. PFSH COUNT INCLUDES THE [facility] Medical History (Updated 05/03/25 @ 14:04 by Desean Montano MD) Myalgia ?M79.10 - Myalgia, unspecified site (ICD-10) Near syncope ?R55 - Syncope and collapse (ICD-10) Dehydration ?E86.0 - Dehydration (ICD-10) Fibroadenoma of right breast ?D24.1 - Benign neoplasm of right breast (ICD-10) Endometriosis ?N80.9 - Endometriosis, unspecified (ICD-10) Surgical History (Updated 04/28/25 @ 00:00 by ) S/P excision of fibroadenoma of breast ?Z98.890 - Other specified postprocedural states (ICD-10) ?Z86.018 - Personal history of other benign neoplasm (ICD-10) Family History (Updated 04/22/25 @ 06:12 by Rina Petit) Mother Family history of diabetes mellitus Father Family history of hypertension Other Family history of CHF (congestive heart failure) Social History (Updated 04/22/25 @ 06:13 by Rnia Petit) Within the past year, how often did you have a drink containing alcohol: never Score interpretation: A score less than 3 is consistent with normal alcohol consumption. 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 Patient is resting comfortably on cart. Skin:Warm, dry, no pallor noted.There is no rash noted. Head:Normocephalic, atraumatic Eye: Normal conjunctiva, no drainage Ears, Nose, Mouth, and Throat: oral mucosa is moist. Nares patent. Cardiovascular:Regular Rate and Rhythm Respiratory:Patient is in no distress, no accessory muscle use, lungs are clear to auscultation, no wheezing, rales or rhonchi Back:non-tender GI: Soft, nondistended, surgical wound healing well. Some tenderness present in the right upper abdomen Musculoskeletal: The patient has no evidence of calf tenderness, no pitting edema, symmetrical pulses noted bilaterally Neurological:A&O, normal speech Psychiatric:Cooperative Constitutional Vital Signs, click to edit/add: Last Vital Signs Temp 97.6 F 05/03/25 12:11 Pulse 82 05/03/25 12:11 Resp 15 05/03/25 12:11 BP 121/85 05/03/25 12:11 Pulse Ox 97 05/03/25 12:11 O2 Del Method Room Air 05/03/25 12:11 Course Vital Signs Vital signs: Vital Signs Temperature 97.6 F 05/03/25 12:11 Pulse Rate 82 05/03/25 12:11 Respiratory Rate 15 05/03/25 12:11 Blood Pressure 121/85 05/03/25 12:11 Pulse Oximetry 97 05/03/25 12:11 Oxygen Delivery Method Room Air 05/03/25 12:11 Temperature 97.6 F 05/03/25 12:11 Pulse Rate 82 05/03/25 12:11 Respiratory Rate 15 05/03/25 12:11 Blood Pressure 121/85 05/03/25 12:11 Pulse Oximetry 97 05/03/25 12:11 Oxygen Delivery Method Room Air 05/03/25 12:11 Medical Decision Making MDM Narrative Medical decision making narrative: Blood work is nonspecific. Her gallbladder ultrasound shows no acute findings. BUN is 7. She is not clinically dehydrated or by laboratory analysis. She was given IV fluids. We discussed treatment options. Zofran does not seem to be helping her and Phenergan made her infants sleepy. We will try Reglan and she will follow-up with her doctor. Treatment diagnosis and follow-up were discussed with the patient. Differential Diagnosis Differential Diagnosis: Nausea and vomiting, dehydration Lab Data Lab results reviewed: Yes I reviewed the patient's lab results Labs: Lab Results 05/03/25 Range/Units 12:25 WBC 10.3 (4.0-11.0) 10^3/uL RBC 4.85 (4.20-5.40) 10^6/uL Hgb 13.6 (12.0-16.0) g/dL Hct 42.0 (36.0-48.0) % MCV 86.6 (81.0-99.0) fL MCH 28.0 (26.7-34.0) pg MCHC 32.4 (29.9-35.2) g/dL RDW 13.4 (11.0-15.0) % Plt Count 442 (150-450) 10^3/uL MPV 10.0 (9.5-13.5) fL Neut % (Auto) 70.7 (43.0-75.0) % Lymph % (Auto) 18.4 L (20.5-60.0) % Sequoyah % (Auto) 7.2 (1.7-12.0) % Eos % (Auto) 1.6 (0.9-7.0) % Baso % (Auto) 0.7 (0.2-2.0) % Neut # (Auto) 7.3 H (1.4-6.5) 10^3/uL Lymph # (Auto) 1.9 (1.2-3.8) 10^3/uL Sequoyah # (Auto) 0.7 (0.3-0.8) 10^3/uL Eos # (Auto) 0.2 (0.0-0.7) 10^3/uL Baso # (Auto) 0.1 (0.0-0.1) 10^3/uL Abs Immat Gran (auto) 0.14 H (0.00-0.03) 10^3/uL Imm/Tot Granulo (auto) 1.4 H (0.0-0.5) % Sodium 139 (136-145) mmol/L Potassium 4.4 (3.5-5.1) mmol/L Chloride 102 (98-107) mmol/L Carbon Dioxide 25.5 (21.0-32.0) mmol/L Anion Gap 15.9 BUN 7.0 (7.0-18.0) mg/dL Creatinine 0.57 (0.55-1.02) mg/dL Est GFR ( Amer) >60 (>=60 mL/min/1.73m^2) Est GFR (Non-Af Amer) >60 (>=60 mL/min/1.73m^2) BUN/Creatinine Ratio 12.3 Glucose 75 (74-106) mg/dL Calcium 9.2 (8.5-10.1) mg/dL Total Bilirubin 0.5 (0.2-1.0) mg/dL Direct Bilirubin 0.1 (0.0-0.2) mg/dL AST 24 (15-37) U/L ALT 19 (14-59) U/L Alkaline Phosphatase 151 H (46-116) U/L Total Protein 7.2 (6.4-8.2) g/dL Albumin 3.2 L (3.4-5.0) g/dL Globulin 4.0 g/dL Albumin/Globulin Ratio 0.8 Amylase 44 (25-115) U/L Lipase 32.0 (16.0-77.0) U/L Discharge Plan Discharge Chief Complaint: Nausea/Vomiting/Diarrhea Clinical Impression: Nausea & vomiting Patient Disposition: Home, Self-Care Time of Disposition Decision: 14:04 Condition: Good Mode of Transportation: Private Vehicle Prescriptions / Home Meds: New metoclopramide HCl [Reglan] 10 mg tablet 10 mg PO Q6H PRN (Reason: nausea and vomiting) Qty: 20 0RF No Action ondansetron HCl 4 mg tablet 4 mg PO Q6H PRN (Reason: nausea and vomiting) PNV no.95-ferrous fumarate-FA [] 28 mg iron- 800 mcg tablet 1 tab PO DAILY ondansetron HCl 4 mg tablet 4 mg PO Q6H PRN (Reason: nausea) ibuprofen 800 mg tablet 800 mg PO Q8H PRN (Reason: pain) 14 Days Qty: 40 0RF ferrous sulfate 325 mg (65 mg iron) Tablet 325 mg PO BID Qty: 120 0RF ondansetron 4 mg tablet,disintegrating 4 mg PO Q8H PRN (Reason: nausea and vomiting) 5 Days Qty: 20 0RF promethazine 25 mg tablet 12.5 mg PO TID PRN (Reason: nausea and vomiting) Qty: 10 0RF Rx Instructions: 3 doses during day; last dose no later than 4 hr before bedtime Print Language: Ecuadorean Instructions: Acute Nausea and Vomiting (ED) Referrals: Alberto Mayes MD [Primary Care Provider] - 1 week
[2025-05-03] MEDS: 0.9 % SODIUM CHLORIDE 1,000 ML 1000 ML IV (12:38)
[2025-05-03 12:52] LABS: Hematocrit 42.0 % (36.0-48.0); Hemoglobin 13.6 g/dL (12.0-16.0); Immature Granulocytes Abs Auto 0.14 10^3/uL (0.00-0.03); Immature Granulocytes Pct Auto 1.4 % (0.0-0.5); Lymphocytes Absolute Auto 1.9 10^3/uL (1.2-3.8); Mean Corpuscular HGB Conc 32.4 g/dL (29.9-35.2); Mean Corpuscular Hemoglobin 28.0 pg (26.7-34.0); Mean Corpuscular Volume 86.6 fL (81.0-99.0); Platelet Count 442 10^3/uL (150-450); Red Blood Count 4.85 10^6/uL (4.20-5.40); White Blood Count 10.3 10^3/uL (4.0-11.0)
[2025-05-03 12:57] LABS: Anion Gap 15.9; Blood Urea Nitrogen 7.0 mg/dL (7.0-18.0); Calcium 9.2 mg/dL (8.5-10.1); Carbon Dioxide 25.5 mmol/L (21.0-32.0); Chloride 102 mmol/L (98-107); Estimated GFR (African America >60 (>=60 mL/min/1.73m^2); Estimated GFR (Non-African Ame >60 (>=60 mL/min/1.73m^2); Glucose 75 mg/dL (74-106); Potassium 4.4 mmol/L (3.5-5.1); Sodium 139 mmol/L (136-145)
[2025-05-03 13:08] LABS: Alanine Aminotransferase 19 U/L (14-59); Albumin Globulin Ratio 0.8; Albumin Level 3.2 g/dL (3.4-5.0); Alkaline Phosphatase 151 U/L (46-116); Amylase 44 U/L (25-115); Aspartate Amino Transferase 24 U/L (15-37); Globulin 4.0 g/dL; Lipase 32.0 U/L (16.0-77.0); Total Protein 7.2 g/dL (6.4-8.2)
== END 2025-05-03 14:30 | disposition home or self-care (01) ==
PROVIDERS: Emergency Provider Emergency Medicine; PCP Family Medicine
DX: O90.89 Other complications of the puerperium, not elsewhere classified (principal); R11.2 Nausea with vomiting, unspecified
CPT/HCPCS: 36415; 76705; 80048; 80076; 82150; 83690; 85025; 96361; 96374; 99284; 99285; J2405

== ENCOUNTER 2025-05-05 08:21 | Outpatient (OUT) | payer BC, SELFPAY ==
--- NOTE | 2025-05-05 11:21 | PC.NURSE ---
Daphney and 13 day old Guy arrive for support. Daphney reports is finally able to keep fluids and food down. States all testing was negative and doctors assume just a viral infection that lingered. States is much better, eating normal last PM and today. States baby feeds every 2-3 hours. Is only feeding on 1 breast as right breast not producing due to previous breast surgery. Has been using a shield as baby had hard time latching due to tongue tie and lip tie. Mother's breast edematous as well. Mom states has not been pumping consistently as just now feeling better. Continues to uses shield as she tried to latch without at home and was unsuccessful. output has increased to 6-8 wet diapers and 3-4 stools daily. to breast, minimal assist to latch without shield, active with sucking, not vigorous. Intermittent swallowing noted. Post feed weight up 10 grams. Discussed with mom, voices understanding of low intake. Feeding plan made with Daphney includes: 1) Continue to feed every 2-3 hours, sooner if baby signals. 2) pump immediately after feed to increase stimulation, wanting to push production in single breast as much as possible. 3) give infant 30ml of pumped milk if available or use formula of choice is has not pumped enough. Voices understanding of feeding plan and states feels is workable. Daphney states she has seen dusky area around infant mouth various times, even has picture. minimal color change in picture but is noted. Daphney requests RN listen to infant heart and lungs. This specification writer auscultates heart, no obvious murmur noted. Lungs clear throughout as well. Pt to discuss with PCP in appointment 05/06/2025. Will return for LC support 05/12/2025. Leaves for home.
== END 2025-05-05 11:50 | disposition home or self-care (01) ==
LOC: FBCO 08:22
PROVIDERS: PCP Family Medicine; Visit Provider Obstetrics & Gynecology
DX: Z39.1 Encounter for care and examination of lactating mother (principal)
CPT/HCPCS: G0463

== ENCOUNTER 2025-05-12 08:37 | Outpatient (OUT) | payer BC, SELFPAY ==
--- OUTSIDE RECORDS SUMMARY | 2025-05-12 08:45 | XMS_ITS | Clinical Summary ---
Author Organization [facility] Address [address] [place] [address] Care Team Providers Care Flexboard Operator Name Role Phone Alberto Mayes MD Primary Care Provider [phone] Allergies Active AllergyReactionsCriticalityNoted DateCommentsCephalexinNausea And WfbmnxbdSya97/20/2019 Other Reaction(s): severe vomiting Other Reaction(s): Vomiting Other Reaction(s): severe vomiting ??Other Reaction(s): Vomiting CiprofloxacinGI scumezqxxnaBqb26/22/2019 Other Reaction(s): GI Intolerance Pt states projectile vomiting. Other Reaction(s): Vomiting PROJECTILE VOMITING PROJECTILE VOMITING Other Reaction(s): GI Intolerance ??Pt states projectile vomiting. ??Other Reaction(s): Vomiting ??PROJECTILE VOMITING Pt states projectile vomiting. PrednisoneNausea And AjouzyctRfj43/20/2019 Other Reaction(s): severe vomiting Other Reaction(s): Vomiting Other Reaction(s): severe vomiting ??Other Reaction(s): Vomiting Medications MedicationSigDispense QuantityRefillsLast FilledStart DateEnd DateStatus Vit w/Fw-Emqbypplu-EI (PNV PO) Active ondansetron (Zofran) 4 MG tablet Indications:Gastroesophageal reflux in ([facility]),Nausea and vomiting during ([facility])TAKE 1 TABLET BY MOUTH EVERY 6 HOURS NEEDED FOR NAUSEA AND VOMITING 30 tablet 5Active hydrocortisone (Anusol-HC) 25 MG suppository Indications:Hemorrhoids, unspecified hemorrhoid typeInsert 1 suppository (25 mg) into the rectum in the morning and 1 suppository (25 mg) before bedtime. 6 suppository 5Active iron polysaccharides (ProFe) 391.3 (180 Fe) MG capsule Indications:Low hemoglobinTake 1 capsule (391.3 mg) by mouth Daily 30 capsule 615106/19/2024Expired nitrofurantoin, macrocrystal-monohydrate, (Macrobid) 100 MG capsule Indications:Urinary tract infection in mother during third trimester of ([facility])Take 1 capsule (100 mg) by mouth in the morning and 1 capsule (100 mg) before bedtime. Do all this for 7 days. 14 capsule Expired Encounters DateTypeDepartmentCare DwoyJtyacfcecht56/16/2025[place] [phone] Gaby Woods, DO 04/28/2025[place] [address] Gaby Woods, DO 04/25/2025Telephone [facility] [address] [place] [address] Bianca Gentile MA 04/23/2025linisync Result Encounter NOMS External Department Unsolicited Gaby Woods, DO 04/22/2025External Result Encounter NOMS External Department Unsolicited Gaby Woods, DO 04/22/2025linisync Result Encounter NOMS External Department Unsolicited Gaby Woods, DO 04/16/2025 2:30 [place] [phone] Gaby Woods, DO Third trimester ([facility]); 38 weeks gestation of ([facility])04/16/2025amboo flowsheet [place] [address] Gaby Woods, DO 5Abstract [facility] [place] [facility] [address] [place] [address] Gaby Woods, DO 04/08/2025 2:30 PM ESTRoutine [facility] [place] [facility] [address] [place] [address] Jayla Leiva PA Third trimester ([facility]); 37 weeks gestation of ([facility])04/08/2025bstract [facility] [place] [address] Gaby oWods, DO 5Bamboo flowsheet [facility] [place] [address] [address] [place] [address] Jayla Leiva PA 04/02/2025 11:20 AM ESTRoutine [facility] [place] [facility] [address] [place] [address] Gaby Woods, DO 36 weeks gestation of ([facility]); Third trimester ([facility]); Low hemoglobin; POTS (postural orthostatic tachycardia syndrome); Hemorrhoids, unspecified hemorrhoid type04/02/2025linisync Result Encounter [facility]OMS External Department Unsolicited Gaby Woods, DO 5Bamb flowsheet [facility] [place] [facility] [address] [place] [address] Gaby Woods, DO 03/26/2025 2:40 PM ESTRoutine [facility] [place] [facility] [address] [place] [address] Gaby Woods, DO 35 weeks gestation of ([facility]); Third trimester ([facility]); Low hemoglobin; POTS (postural orthostatic tachycardia syndrome); Hemorrhoids, unspecified hemorrhoid type11/12/2025Bamboo flowsheet [facility] [place] [facility] [address] [place] [address] Gaby Woods, DO 03/20/2025Telephone [facility] [place] [facility] [address] [place] [address] Gaby Woods, DO 03/19/2025Telephone [facility] [place] [facility] [address] [place] [address] Vielka Romero, JAZZY 03/19/2025linisync Result Encounter NOMS External Department Unsolicited Gaby Woods, DO 03/19/2025linisync Result Encounter NOMS External Department Unsolicited Gaby Woods, DO 5Clinisync Result Encounter [facility]OM[facility] External Department Unsolicited Gaby Woods, DO 5Clinisync Result Encounter NOMS External Department Unsolicited Vielka Romero, JAZZY 03/12/2025 2:40 PM EDTRoutine [facility] [place] [facility] [address] [place] [address] Vielka Romero, JAZZY Hemorrhoids, unspecified hemorrhoid type (Primary Dx); Third trimester ([facility]); 33 weeks gestation of ([facility])03/12/2025amboo flowsheet [facility] [place] [facility] [address] [place] [address] Vielka Romero, JAZZY 03/08/2025Refill [facility] [place] [facility] [address] [place] [address] Gaby Woods, DO Gastroesophageal reflux in ([facility]); Nausea and vomiting during ([facility])02/27/2025 11:00 AM EDTAncillary Procedure [facility] [place] [facility] [address] [place] [address] size inconsistent with dates ([facility])02/25/2025 1:50 PM EDTRoutine [facility] [place] [address] [place] [address] Gaby Woods, Third trimester ([facility]); 31 weeks gestation of ([facility]); POTS (postural orthostatic tachycardia syndrome); Pain of right lower btnbhtauw07/14/2025amboo flowsheet [facility] [place] [facility] [address] [place] [address] Gaby Woods DO 02/11/2025 9:50 AM EDTRoutine [facility] [place] [address] [place] [address] [place] [phone] Vielka Romero, JAZZY size inconsistent with dates ([facility]) (Primary Dx); Third trimester ([facility]); 29 weeks gestation of ([facility])02/11/2025amb flowsheet [facility] [place] [facility] [address] [place] [address] [place] [phone] Vielka Romero NP from Last 3 Months Family History Medical HistoryRelationNameCommentsHypertensionFatherDavidHeart diseaseMaternal GrandfatherDiabetesMaternal GrandmotherWildaKidney failurePaternal Grandfather liver failurePaternal GrandfatherHeart diseasePaternal GrandmotherRelationName StatusCommentsFatherDavidAliveMaternal GrandfatherDeceasedMaternal Grandmother WildaDeceasedMotherAlivePaternal GrandfatherDeceasedPaternal GrandmotherDeceased Social History Tobacco UseTypesPacks/DayYears UsedDateSmoking Tobacco: Never Tobacco Cessation:Counseling Given: Not Answered Alcohol UseStandard Drinks/WeekCommentsNever0 (1 standard drink = 0.6 oz pure alcohol)Caffeine intake: 3-4 cups per dayEstimated Date of Delivery PgaoljnxUes73/16/2025Based on last menstrual period of 07/23/2024Sex and Gender InformationValueDate RecordedSex Assigned at BirthNot on fileLegal SexFemale 07/27/2022 7:33 PM EDTGender IdentityNot on fileSexual OrientationNot on file Last Filed Vital Signs Vital SignReadingTime TakenCommentsBlood Kuhpiqxu115/6404/16/2025 2:57 PM EST Pulse--Temperature--Respiratory Rate--Oxygen Saturation--Inhaled Oxygen Concentration--Sosxgh96.8 kg (198 lb)04/16/2025 2:57 PM LKOGsazce876.6 cm (5' 6 )2024 1:52 PM EDTBody Mass Index31.9609 1:52 PM EDT Plan of Treatment Not on file Procedures Procedure NamePriorityDate/TimeAssociated DiagnosisCommentsALL CBC WITH AUTO CNZMNcrjdrz97/10/2025 6:09 AM EST ALL CBC WITH AUTO MKOYMnpfjlw09/09/2025 5:55 AM EST [facility] DRUG SCREEN RAPID (URINE)Yxdubeh9404/22/2025 5:45 AM EST URINE CULTURE - JRUWRjnpqgs02/09/2025 5:45 AM EST [facility] URINALYSIS, WITH ROMUQQWWLKDHnqqxkt47/09/2025 5:45 AM EST CULTURE, URINE, BCASIIEXguqcnm33/09/2025 5:45 AM EST POCT URINALYSIS RDOIJXZGBxutxvq65/03/2025 3:00 PM EST Third trimester ([facility]) 38 weeks gestation of ([facility]) POCT URINALYSIS QEBABBPFAqoimtc13/25/2025 3:01 PM EST 37 weeks gestation of ([facility]) POCT URINALYSIS DAHEWAHOHsldfgf91/19/2025 11:58 AM EST 36 weeks gestation of ([facility]) Third trimester ([facility]) STREP GP B CULTURE+CUVUYdjkhls46/19/2025 11:26 AM EST POCT URINALYSIS XCOKPGQLXwafgpy69/12/2025 3:03 PM EST 35 weeks gestation of ([facility]) Third trimester ([facility]) US OB CERVICAL WCDVHP4003/19/2025 10:57 AM EST US OB BPP W NON-EUUZWP8903/19/2025 10:57 AM EST US OB GOEHHIMS77/05/2025 10:57 AM EST URINE CULTURE, FFWMFEBVtpwfjk14/05/2025 9:05 AM EST [facility] URINE MICROSCOPIC XPOHWcbjulo49/05/2025 9:05 AM EST [facility] UA (CLEAN/CATCH) VIDEO GAME TESTER/MICRO IF IND.Yptabzo2903/19/2025 9:05 AM EST ALL CBC WITH AUTO YNGSGjlzvhh79/03/2025 2:34 PM EST POCT URINALYSIS AVJIYJQYJyrkaqa48/29/2025 2:55 PM EDT Third trimester ([facility]) US OB FOLLOW UP TRANSABDOMINAL KVOQFNRXLqvwmpd36/16/2025 11:33 AM EDT size inconsistent with dates ([facility]) POCT URINALYSIS EQOJTBCOPemsvgf81/14/2025 2:15 PM EDT Third trimester ([facility]) POCT URINALYSIS SCKEJMHSBcqrctv88/30/2025 9:59 AM EDT Third trimester ([facility]) from Last 3 Months Results * (ABNORMAL) ALL CBC WITH AUTO DIFF (04/23/2025 6:09 AM EST) Only the most recent of3 resultswithin the time period is included. ComponentValueRef RangeTest MethodAnalysis TimePerformed AtPathologist Signature [facility] WBC13.1(H)4.0 - 11.0 10 3/uLTBHTBH RBC3.05(L)4.20 - 5.40 10 6/uLTBHTBH HGB 8.7(L)12.0 - 16.0 g/dLTBHTBH HCT26.3(L)36.0 - 48.0 %TBHTBH MCV86.281.0 - 99.0 fL TBHTBH MCH28.526.7 - 34.0 pgTBHTBH MCHC33.129.9 - 35.2 g/dLTBHTBH RDW13.111.0 - 15.0 %TBHTBH TEK436286 - 450 10 3/uLTBHTBH MPV10.39.5 - 13.5 fLTBHNEUTROPHILS PERCENT AUTO68.943.0 - 75.0 %TBHLYMPHOCYTES PERCENT AUTO19.6(L)20.5 - 60.0 %TBH MONOCYTES PERCENT AUTO9.81.7 - 12.0 %TBHTBH EO %0.2(L)0.9 - 7.0 %TBHBASOPHILS PERCENT AUTO0.40.2 - 2.0 %TBHIMMATURE GRANULOCYTES PCT AUTO1.1(H)0.0 - 0.5 %[facility] NEUTROPHILS ABSOLUTE AUTO9.0(H)1.4 - 6.5 10 3/uLTBHLYMPHOCYTES ABSOLUTE AUTO2.6 1.2 - 3.8 10 3/uLTBHMONOCYTES ABSOLUTE AUTO1.3(H)0.3 - 0.8 10 3/uLTBHTBH EO #0.0 0.0 - 0.7 10 3/uLTBHBASOPHILS ABSOLUTE AUTO0.10.0 - 0.1 10 3/uLTBHIMMATURE GRANULOCYTES ABS AUTO0.15(H)0.00 - 0.03 10 3/uLTBHSpecimen (Source)Anatomical Location / LateralityCollection Method / VolumeCollection TimeReceived Time 04/23/2025 6:09 AM EST04/23/2025 6:13 AM EST Narrative CLINISYNC - 04/23/2025 6:21 AM EST Authorizing ProviderResult TypeResult StatusCorey Peggy DOCLINISYNCFinal Result Performing OrganizationAddressCity/State/ZIP CodePhone Number [facility] * (ABNORMAL) URINE CULTURE - [facility] (04/22/2025 5:45 AM EST)ComponentValueRef RangeTest MethodAnalysis TimePerformed AtPathologist SignatureURINE CULTURE - [facility] ??Urine Culture - FR SEEFR FR RESULT^[facility] RESULT (A)TBHURINE CULTURE - [facility] SEE SCANNED REPORT, ABNORMAL^SEE SCANNED REPORT, ABNORMAL(A)TBHSpecimen (Source)Anatomical Location / LateralityCollection Method / VolumeCollection TimeReceived Time04/22/2025 5:45 AM EST04/22/2025 6:11 AM EST Narrative CLINISYTN - 04/24/2025 4:52 PM EST Authorizing ProviderResult TypeResult StatusCorey Peggy DOLAB BLOOD ORDERABLES Final ResultPerforming OrganizationAddressCity/State/ZIP CodePhone Number [facility] * [facility] DRUG SCREEN RAPID (URINE) (04/22/2025 5:45 AM EST)ComponentValueRef Range Test MethodAnalysis TimePerformed AtPathologist SignatureCANNABINOID SCREEN URINENEGATIVENEGATIVETBHPHENCYCLIDINE SCREEN URINENEGATIVENEGATIVETBHCOCAINE SCREEN URINENEGATIVENEGATIVETBHMETHAMPHETAMINES SCREEN URINENEGATIVENEGATIVE TBHOPIATE SCREEN URINENEGATIVENEGATIVETBHAMPHETAMINE SCREEN URINENEGATIVE NEGATIVETBHBENZODIAZEPINES SCREEN URINENEGATIVENEGATIVETBHTRICYCLIC ANTIDEPRESSANT URINENEGATIVENEGATIVETBHMETHADONE SCREEN URINENEGATIVENEGATIVE TBHBARBITURATES SCREEN URINENEGATIVENEGATIVETBHOXYCODONE SCREEN URINENEGATIVE NEGATIVETBHBUPRENORPHINE SCREEN URINENEGATIVENEGATIVETBHComment: DRUG CLASS TEST SYSTEM CUT-OFF CONCENTRATIONS ARE FOLLOWS: AMP (Amphetamine): 500 ng/mL BAR (Barbiturates): 200 ng/mL BZO (Benzodiazepines): 150 ng/mL BUP (Buprenorphine): 10 ng/mL GORDY (Cocaine): 150 ng/mL mAMP (Methamphetamine): 500 ng/mL MTD (Methadone): 200 ng/mL OPI (Opiates): 100 ng/mL OXY (Oxycodone): 100 ng/mL PCP (Phencyclidine): 25 ng/mL THC (Cannabinoids): 50 ng/mL TCA (Trycyclic Antidepressants): 300 ng/mL Specimen (Source)Anatomical Location / LateralityCollection Method / Volume Collection TimeReceived Time04/22/2025 5:45 AM EST04/22/2025 6:11 AM EST Narrative CLINISYNC - 04/22/2025 6:42 AM EST Authorizing ProviderResult TypeResult StatusCorey Peggy DOCLINISYNCFinal Result Performing OrganizationAddressCity/State/ZIP CodePhone Number [facility] TB * (ABNORMAL) [facility] URINALYSIS, WITH MICROSCOPIC (04/22/2025 5:45 AM EST)Component ValueRef RangeTest MethodAnalysis TimePerformed AtPathologist SignatureCOLOR URINEYELLOWYELLOWTBHCLARITY URINECLEARCLEARTBHSPECIFIC GRAVITY URINE1.0251.005 - 1.025TBHPH URINE6.05.0 - 9.0TBHPROTEIN URINETRACENEG/TRACE mg/dLTBHGLUCOSE URINE UANEGATIVENEGATIVE mg/dLTBHBILIRUBIN URINENEGATIVENEGATIVETBHKETONES URINENEGATIVENEGATIVE mg/dLTBHBLOOD URINENEGATIVENEGATIVETBHNITRITE URINE NEGATIVENEGATIVETBHUROBILINOGEN URINE0.20.2 - 1.0 EU/dLTBHLEUKOCYTE ESTERASE URINESMALL(A)NEGATIVETBHTBH WBC5-10(A)NONE SEEN #/HPFTBHTBH RBCNONE SEEN0 - 2 #/HPFTBHBACTERIA URINESMALL(A)NONE SEEN #/HPFTBHMUCUS URINENONE SEENNONE SEEN TBHSQUAMOUS EPITHELIAL CELL URINEFEW(A)NONE/RARE #/LPFTBHCRYSTALS SEEN?Seen(A) None Seen #/HPFTBHTBH CALCIUM OXALATE CRYSTALS URINERARETBHCAST SEEN?NONE SEEN NONE SEEN #/LPFTBHURINE CULTURE INDICATEDYES-FRMCTBHSpecimen (Source) Anatomical Location / LateralityCollection Method / VolumeCollection Time Received Time04/22/2025 5:45 AM EST04/22/2025 6:11 AM EST Narrative CLINISYNC - 04/22/2025 6:32 AM EST Authorizing ProviderResult TypeResult StatusCorey Peggy DOCLINISYNCFinal Result Performing OrganizationAddressCity/State/ZIP CodePhone Number [facility]INISYNC [facility] * Urine culture (04/22/2025 5:45 AM EST)ComponentValueRef RangeTest Method Analysis TimePerformed AtPathologist SignatureFRMC ORGANISMLactobacillus wtveixcf35/11/2025 10:27 AM [facility] CtrCOLONY COUNT >100,0049106/25/2024 10:27 AM [facility] CtrORGANISM COMMENTS Organism not Routinely Tested for Uxapegbupgfrvfak97/11/2025 10:27 AM EST [facility] CtrSpecimen (Source)Anatomical Location / LateralityCollection Method / VolumeCollection TimeReceived TimeUrineUrine specimen obtained by clean catch procedure / Unxsrti8704/22/2025 5:45 AM EST 04/22/2025 1:00 PM ESTComment:Not Otherwise Specified Narrative Authorizing ProviderResult TypeResult StatusCorey Peggy DOLAB MICROBIOLOGY - GENERAL ORDERABLESFinal ResultPerforming OrganizationAddressty/[facility]/ZIP Code Phone Number [facility] [address] [place] [address], [facility] [address] [place] [address] * (ABNORMAL) POCT urinalysis dipstick manually resulted (04/16/2025 3:00 PM EST) Only the most recent of7 resultswithin the time period is included. ComponentValueRef RangeTest MethodAnalysis TimePerformed AtPathologist Signature Color, UAYellowClarity, UAClearGlucose, UANegativeNegative - 2000(110) ++++ mg/dLBilirubin, UANegativeNegative - 4(70) +++ mg/dLKetones, UANegativeNegative - 160(16) ++++ mg/dLSpec Grav, UA1.0201 - 1.03Blood, UANegativeNegative - 50 Clarke/mcLpH, UA6.05 - 9Protein, UATraceNegative - 2000(20) ++++ mg/dLUrobilinogen, UA0.20.2 - 12 mg/dLLeukocytes, UA3+Negative - 500+++ Kamaljit/mcLNitrite, UANegative Negative - PositiveSpecimen (Source)Anatomical Location / LateralityCollection Method / VolumeCollection TimeReceived MtdcJurcq87/03/2025 3:00 PM EST Narrative Authorizing ProviderResult TypeResult StatusCorey Peggy DOPOINT OF CARE TEST ENTER/EDIT ORDERABLESFinal Result * STREP GP B CULTURE+RFLX (04/02/2025 11:26 AM EST)ComponentValueRef RangeTest MethodAnalysis TimePerformed AtPathologist SignatureSTREP GP B CULTURE+RFLX ??Strep Gp B Culture+Rflx TBHSTREP GP B CULTURE+RFLXNegativeTBHSTREP GP B CULTURE+RFLXCenters for Disease Control and Prevention (CDC) andTBHSTREP GP B CULTURE+RFLXAmeradventist health vallejo Congress of Obstetricians and GynecologistsTBHSTREP GP B CULTURE+RFLX(ACOG) guidelines for prevention of group BTBHSTREP GP B CULTURE+RFLXstreptococcal (GBS) disease specify co-collection ofTBHSTREP GP B CULTURE+RFLXa vaginal and rectal swab specimen to maximizeTBHSTREP GP B CULTURE+RFLXsensitivity of GBS detection. Per the CDC and ACOG,TBHSTREP GP B CULTURE+RFLXswabbing both the lower vagina and rectumTBHSTREP GP B CULTURE+RFLXsubstantially increases the yield of detectionTBHSTREP GP B CULTURE+RFLXcompared with sampling the vagina alone.TBH STREP GP B CULTURE+RFLXPenicillin G, ampicillin, or cefazolin are indicatedTBH STREP GP B CULTURE+RFLXfor intrapartum prophylaxis of GBSTBHSTREP GP B CULTURE+RFLXcolonization. Reflex susceptibility testing should beTBHSTREP GP B CULTURE+RFLXperformed prior to use of clindamycin only on GBSTBHSTREP GP B CULTURE+RFLXisolates from penicillin-allergic women who areTBHSTREP GP B CULTURE+RFLXconsidered a high risk for anaphylaxis. Treatment withTBHSTREP GP B CULTURE+RFLXvancomycin without additional testing is warranted ifTBHSTREP GP B CULTURE+RFLXresistance to clindamycin is noted.TBHSTREP GP B CULTURE+RFLX Performed at: [facility]TBHST[facility]P GP B CULTURE+[id number] [place], [place] [id number] GP B CULTURE+RFLXLab Director: Jordin Rao PhD, Phone: [phone] (Source)Anatomical Location / Laterality Collection Method / VolumeCollection TimeReceived Time04/02/2025 11:26 AM EST 04/02/2025 3:30 PM EST Narrative CLINISYNC - 04/06/2025 5:08 PM EST Authorizing ProviderResult TypeResult StatusCorey Peggy DOLAB BLOOD ORDERABLES Final ResultPerforming OrganizationAddressCity/State/ZIP CodePhone Number CLINISYNC [facility] * US OB PLACENTA (03/19/2025 10:57 AM EST)Anatomical RegionLateralityModality OtherSpecimen (Source)Anatomical Location / LateralityCollection Method / VolumeCollection TimeReceived Time03/19/2025 10:57 AM EST Narrative 03/19/2025 11:00 AM EST [facility] ?[address] ? [place], [facility] ? Ultrasound Report ? Signed ? Patient: DAPHNEY GRADY ?MR#: [id number] ?? : 2000 ?Acct:[id number] ?? Age/Sex: 25 / F ?ADM Date: ?? Loc: [facility] ??250- ? Attending Dr: Gaby Woods D.O. ? Ordering Physician: Gaby Woods D.O. ?? Date of Service: 03/19/25 ?? Procedure(s): US OB placenta ?? Accession Number(s): [id number] ? cc: Alberto Mayes M.D.; Gaby Woods D.O. ? [facility] ? [address] ? [place] [address] ? Patient Name: ?? DAPHNEY GRADY ? MRN: [id number] ? date: 2000 ?Sex: F ?? Assigned Patient Location: [facility] ?? Current Patient Location: [facility] ?? Accession/Order Number: [id number] ?? Exam Date: 03/19/2025 ??10:05 ?Report Date: 03/19/2025 ??10:57 ? At the request of: ?? GABY ??PEGGY ??DO ? Procedure: ??US OB BPP w non-stress ? CLINICAL DATA: patient with vaginal bleeding for the past day. ? ULTRASOUND OB CERVICAL LENGTH ? The cervix was evaluated with a transvaginal probe. ??The cervix is closed with ?? estimated length of 5.1 cm. ??There is no evidence of previa. ? US/US OB placenta ?? IMPRESSION: ? UNREMARKABLE CLOSED CERVIX. ? ULTRASOUND OB PLACENTA ? The placenta is fundal. ??Appearance is within normal limits. ??There is no ?? evidence of previa or abruption. ? IMPRESSION: ? NO SIGNIFICANT PLACENTAL ABNORMALITIES. ? BIOPHYSICAL PROFILE: ? COMPARISON: None ? There is a single live intrauterine gestation in transverse presentation, head ?? to the maternal right. ??There is cardiac and somatic activity with heart ?? rate of 139 bpm. ??The reported gestational age is 34 weeks 1 day. ? FINDINGS: ? TONE: 1 or more episodes of activity extension and flexion of ?? extremity or opening and closing of the hand ?[Y] ? 2/2 ?? GROSS BODY MOVEMENTS: 3 or more discrete body or limb movements ?[Y] ? 2/2 ?? BREATHING MOVEMENTS: 1 or more episodes of breathing lasting at ?? least 30 seconds ? [Y] ? 2/2 ?? JHON: A single deepest vertical pocket of amniotic fluid greater than 2 cm ? [Y] ? 2/2 ?JHON: 24.6 cm. ??The 95th percentile is 24.8 cm. ? Total score: ? 8/8 ? IMPRESSION: ? NORMAL BIOPHYSICAL PROFILE SCORE. ? BORDERLINE POLYHYDRAMNIOS. ? Impression dictated by: Lisa Rojas M.D. ??03/19/2025 10:57 AM ? Dictation Location: RADIO-PC-02 ? Electronically authenticated by: [id number] ??Y ?? Date: 03/19/2025 ??10:57 ? Dictated By: ?Lisa Rojas M.D. ? Signed By: ?03/19/25 1100 ? DD/ 1057 ? TD/TT: ? Licensed Social Worker: Procedure Note Radiology, Radiologist, - 03/19/2025 [place] [address] Ultrasound Report Signed Patient: DAPHNEY GRADY JMR#: [id number] : 2000Acct:[id number] Age/Sex: 25 FADM Date: Loc: [facility] 250-[address]: Gaby Woods D.O. Ordering Physician: Gaby Woods D.O. Date of Service: 03/19/25 Procedure(s): US OB placenta Accession Number(s): [id number] cc: Alberto Mayes M.D.; Gaby Woods D.O. [address] [address] Patient Name: DAPHNEY GRADY MRN: [id number] date: 2000 Sex: F Assigned Patient Location: [facility] Current Patient Location: [facility] Accession/Order Number: [id number] Exam Date: 03/19/2025 10:05 Report Date: 03/19/2025 10:57 At the request of: GABY WOODS DO Procedure: US OB BPP w non-stress CLINICAL DATA: patient with vaginal bleeding for the past day. ULTRASOUND OB CERVICAL LENGTH The cervix was evaluated with a transvaginal probe. The cervix is closedwith estimated length of 5.1 cm. There is no evidence of previa. US/US OB placenta IMPRESSION: UNREMARKABLE CLOSED CERVIX. ULTRASOUND OB PLACENTA The placenta is fundal. Appearance is within normal limits. There is no evidence of previa or abruption. IMPRESSION: NO SIGNIFICANT PLACENTAL ABNORMALITIES. BIOPHYSICAL PROFILE: COMPARISON: None There is a single live intrauterine gestation in transverse presentation,head to the maternal right. There is cardiac and somatic activity withheart rate of 139 bpm. The reported gestational age is 34 weeks 1 day. FINDINGS: TONE: 1 or more episodes of activity extension and flexion of extremity or opening and closing of the hand [Y] 2/2 GROSS BODY MOVEMENTS: 3 or more discrete body or limb movements [Y] 2/2 BREATHING MOVEMENTS: 1 or more episodes of breathing lastingat least 30 seconds [Y] 2/2 JHON: A single deepest vertical pocket of amniotic fluid greater than 2 cm [Y] 2/2 JHON: 24.6 cm. The 95th percentile is 24.8 cm. Total score: 8/8 IMPRESSION: NORMAL BIOPHYSICAL PROFILE SCORE. BORDERLINE POLYHYDRAMNIOS. Impression dictated by: Lisa Rojas M.D. 03/19/2025 10:57 AM Dictation Location: [place] [address] Electronically authenticated by: [id number] Y Date: 0:57 Dictated By: Lisa Rojas M.D. Signed By:03/19/25 1100 DD/ 1057 TD/TT: Licensed Social Worker: Authorizing ProviderResult TypeResult StatusCorey Peggy DOCLINISYNC IMAGINGFinal Result * US OB BPP W NON-STRESS (03/19/2025 10:57 AM EST)Anatomical Region LateralityModalityOtherSpecimen (Source)Anatomical Location / Laterality Collection Method / VolumeCollection TimeReceived Time03/19/2025 10:57 AM EST Narrative 03/19/2025 11:00 AM EST [facility] ?[address] ? [place] [address] ? Ultrasound Report ? Signed ? Patient: GRADY,EDDIE ?MR#: [id number] ?? : 2000 ?Acct:[id number] ?? Age/Sex: 25 / F ?ADM Date: ?? Loc: [facility] ??250-1 ? Attending Dr: Gaby Woods D.O. ? Ordering Physician: Gaby Woods D.O. ?? Date of Service: 03/19/25 ?? Procedure(s): US OB BPP w non-stress ?? Accession Number(s): [id number] ? cc: Alberto Mayes M.D.; Gaby Woods D.O. ? [facility] ? [address] ? [place] [address] ? Patient Name: ?? DAPHNEY GRADY ? MRN: [facility]:[id number] ? date: 2000 ?Sex: F ?? Assigned Patient Location: [facility] ?? Current Patient Location: FB ?? Accession/Order Number: [id number] ?? Exam Date: 03/19/2025 ??10:05 ?Report Date: 03/19/2025 ??10:57 ? At the request of: ?? GABY ??PEGGY ??DO ? Procedure: ??US OB BPP w non-stress ? CLINICAL DATA: patient with vaginal bleeding for the past day. ? ULTRASOUND OB CERVICAL LENGTH ? The cervix was evaluated with a transvaginal probe. ??The cervix is closed with ?? estimated length of 5.1 cm. ??There is no evidence of previa. ? US/US OB BPP w non-stress ?? IMPRESSION: ? UNREMARKABLE CLOSED CERVIX. ? ULTRASOUND OB PLACENTA ? The placenta is fundal. ??Appearance is within normal limits. ??There is no ?? evidence of previa or abruption. ? IMPRESSION: ? NO SIGNIFICANT PLACENTAL ABNORMALITIES. ? BIOPHYSICAL PROFILE: ? COMPARISON: None ? There is a single live intrauterine gestation in transverse presentation, head ?? to the maternal right. ??There is cardiac and somatic activity with heart ?? rate of 139 bpm. ??The reported gestational age is 34 weeks 1 day. ? FINDINGS: ? TONE: 1 or more episodes of activity extension and flexion of ?? extremity or opening and closing of the hand ?[Y] ? 2/2 ?? GROSS BODY MOVEMENTS: 3 or more discrete body or limb movements ?[Y] ? 2/2 ?? BREATHING MOVEMENTS: 1 or more episodes of breathing lasting at ?? least 30 seconds ? [Y] ? 2/2 ?? JHON: A single deepest vertical pocket of amniotic fluid greater than 2 cm ? [Y] ? 2/2 ?JHON: 24.6 cm. ??The 95th percentile is 24.8 cm. ? Total score: ? 8/8 ? IMPRESSION: ? NORMAL BIOPHYSICAL PROFILE SCORE. ? BORDERLINE POLYHYDRAMNIOS. ? Impression dictated by: Lisa Rojas M.D. ??03/19/2025 10:57 AM ? Dictation Location: RADIO-PC-02 ? Electronically authenticated by: [id number] ??Y ?? Date: 03/19/2025 ??10:57 ? Dictated By: ?Lisa Rojas M.D. ? Signed By: ?11/05/25 1100 ? DD/ 1057 ? TD/TT: ? Licensed Social Worker: Procedure Note Radiology, Radiologist, MD - 03/19/2025 [place] [address] Ultrasound Report Signed Patient: DAPHNEY GRADY JMR#: [id number] : 2000Acct:[id number] Age/Sex: 25 / FADM Date: Loc: [facility] 250-[address]: Gaby Woods D.O. Ordering Physician: Gaby oWods D.O. Date of Service: 03/19/25 Procedure(s): US OB BPP w non-stress Accession Number(s): [id number] cc: Alberto Mayes M.D.; Gaby Woods D.O. The [address] [address] Patient Name: DAPHNEY GRADY MRN: [facility]:[id number] date: 2000 Sex: F Assigned Patient Location: [facility] Current Patient Location: [facility] Accession/Order Number: [id number] Exam Date: 03/19/2025 10:05 Report Date: 03/19/2025 10:57 At the request of: GABY WOODS DO Procedure: US OB BPP w non-stress CLINICAL DATA: patient with vaginal bleeding for the past day. ULTRASOUND OB CERVICAL LENGTH The cervix was evaluated with a transvaginal probe. The cervix is closedwith estimated length of 5.1 cm. There is no evidence of previa. US/US OB BPP w non-stress IMPRESSION: UNREMARKABLE CLOSED CERVIX. ULTRASOUND OB PLACENTA The placenta is fundal. Appearance is within normal limits. There is no evidence of previa or abruption. IMPRESSION: NO SIGNIFICANT PLACENTAL ABNORMALITIES. BIOPHYSICAL PROFILE: COMPARISON: None There is a single live intrauterine gestation in transverse presentation,head to the maternal right. There is cardiac and somatic activity withheart rate of 139 bpm. The reported gestational age is 34 weeks 1 day. FINDINGS: TONE: 1 or more episodes of activity extension and flexion of extremity or opening and closing of the hand [Y] 2/2 GROSS BODY MOVEMENTS: 3 or more discrete body or limb movements [Y] 2/2 BREATHING MOVEMENTS: 1 or more episodes of breathing lastingat least 30 seconds [Y] 2/2 JHON: A single deepest vertical pocket of amniotic fluid greater than 2 cm [Y] 2/2 JHON: 24.6 cm. The 95th percentile is 24.8 cm. Total score: 8/8 IMPRESSION: NORMAL BIOPHYSICAL PROFILE SCORE. BORDERLINE POLYHYDRAMNIOS. Impression dictated by: Lisa Rojas M.D. 03/19/2025 10:57 AM Dictation Location: [place] [address] Electronically authenticated by: [id number] Y Date: 0:57 Dictated By: Lisa Rojas M.D. Signed By:03/19/25 1100 DD/ 1057 TD/TT: Licensed Social Worker: Authorizing ProviderResult TypeResult StatusCorey Peggy DOCLINISYNC IMAGINGFinal Result * US OB CERVICAL LENGTH (03/19/2025 10:57 AM EST)Anatomical RegionLaterality ModalityOtherSpecimen (Source)Anatomical Location / LateralityCollection Method / VolumeCollection TimeReceived Time03/19/2025 10:57 AM EST Narrative 03/19/2025 11:00 AM EST [facility] ?[address] ? [place] [address] ? Ultrasound Report ? Signed ? Patient: GRADY,EDDIE ?MR#: [id number] ?? : 2000 ?Acct:[id number] ?? Age/Sex: 25 / F ?ADM Date: ?? Loc: [facility] ??250-1 ? Attending Dr: Gaby Woods D.O. ? Ordering Physician: Gaby Woods D.O. ?? Date of Service: 03/19/25 ?? Procedure(s): US OB cervical length ?? Accession Number(s): [id number] ? cc: Alberto Mayes M.D.; Gaby Woods D.O. ? [facility] ? [address] ? [place] [address] ? Patient Name: ?? DAPHNEY GRADY ? MRN: [facility]:[id number] ? date: 2000 ?Sex: F ?? Assigned Patient Location: [facility] ?? Current Patient Location: [facility] ?? Accession/Order Number: [id number] ?? Exam Date: 03/19/2025 ??10:05 ?Report Date: 03/19/2025 ??10:57 ? At the request of: ?? GABY ??PEGGY ??DO ? Procedure: ??US OB BPP w non-stress ? CLINICAL DATA: patient with vaginal bleeding for the past day. ? ULTRASOUND OB CERVICAL LENGTH ? The cervix was evaluated with a transvaginal probe. ??The cervix is closed with ?? estimated length of 5.1 cm. ??There is no evidence of previa. ? US/US OB cervical length ?? IMPRESSION: ? UNREMARKABLE CLOSED CERVIX. ? ULTRASOUND OB PLACENTA ? The placenta is fundal. ??Appearance is within normal limits. ??There is no ?? evidence of previa or abruption. ? IMPRESSION: ? NO SIGNIFICANT PLACENTAL ABNORMALITIES. ? BIOPHYSICAL PROFILE: ? COMPARISON: None ? There is a single live intrauterine gestation in transverse presentation, head ?? to the maternal right. ??There is cardiac and somatic activity with heart ?? rate of 139 bpm. ??The reported gestational age is 34 weeks 1 day. ? FINDINGS: ? TONE: 1 or more episodes of activity extension and flexion of ?? extremity or opening and closing of the hand ?[Y] ? 2/2 ?? GROSS BODY MOVEMENTS: 3 or more discrete body or limb movements ?[Y] ? 2/2 ?? BREATHING MOVEMENTS: 1 or more episodes of breathing lasting at ?? least 30 seconds ? [Y] ? 2/2 ?? JHON: A single deepest vertical pocket of amniotic fluid greater than 2 cm ? [Y] ? 2/2 ?JHON: 24.6 cm. ??The 95th percentile is 24.8 cm. ? Total score: ? 8/8 ? IMPRESSION: ? NORMAL BIOPHYSICAL PROFILE SCORE. ? BORDERLINE POLYHYDRAMNIOS. ? Impression dictated by: Lisa Rojas M.D. ??03/19/2025 10:57 AM ? Dictation Location: RADIO-PC-02 ? Electronically authenticated by: [id number] ??Y ?? Date: 03/19/2025 ??10:57 ? Dictated By: ?Lisa Rojas M.D. ? Signed By: ?11/05/25 1100 ? DD/ 1057 ? TD/TT: ? Licensed Social Worker: Procedure Note Radiology, Radiologist, - 03/19/2025 [place] [address] Ultrasound Report Signed Patient: DAPHNEY GRADY JMR#: [id number] : 2000Acct:[id number] Age/Sex: 25 / FADM Date: Loc: [facility] 250-[address]: Gaby Woods D.O. Ordering Physician: Gaby Woods D.O. Date of Service: 03/19/25 Procedure(s): US OB cervical length Accession Number(s): [id number] cc: Alberto Mayes M.D.; Gaby Woods D.O. The [place] [id number] Patient Name: DAPHNEY GRADY MRN: [facility]:[id number] date: 2000 Sex: F Assigned Patient Location: [facility] Current Patient Location: [facility] Accession/Order Number: [id number] Exam Date: 03/19/2025 10:05 Report Date: 03/19/2025 10:57 At the request of: GABY WOODS DO Procedure: US OB BPP w non-stress CLINICAL DATA: patient with vaginal bleeding for the past day. ULTRASOUND OB CERVICAL LENGTH The cervix was evaluated with a transvaginal probe. The cervix is closedwith estimated length of 5.1 cm. There is no evidence of previa. US/US OB cervical length IMPRESSION: UNREMARKABLE CLOSED CERVIX. ULTRASOUND OB PLACENTA The placenta is fundal. Appearance is within normal limits. There is no evidence of previa or abruption. IMPRESSION: NO SIGNIFICANT PLACENTAL ABNORMALITIES. BIOPHYSICAL PROFILE: COMPARISON: None There is a single live intrauterine gestation in transverse presentation,head to the maternal right. There is cardiac and somatic activity withheart rate of 139 bpm. The reported gestational age is 34 weeks 1 day. FINDINGS: TONE: 1 or more episodes of activity extension and flexion of extremity or opening and closing of the hand [Y] 2/2 GROSS BODY MOVEMENTS: 3 or more discrete body or limb movements [Y] 2/2 BREATHING MOVEMENTS: 1 or more episodes of breathing lastingat least 30 seconds [Y] 2/2 JHON: A single deepest vertical pocket of amniotic fluid greater than 2 cm [Y] 2/2 JHON: 24.6 cm. The 95th percentile is 24.8 cm. Total score: 8/8 IMPRESSION: NORMAL BIOPHYSICAL PROFILE SCORE. BORDERLINE POLYHYDRAMNIOS. Impression dictated by: Lisa Rojas M.D. 03/19/2025 10:57 AM Dictation Location: [place] [address] Electronically authenticated by: [id number] Y Date: 0:57 Dictated By: Lisa Rojas M.D. Signed By:03/19/25 1100 DD/ 1057 TD/TT: Licensed Social Worker: Authorizing ProviderResult TypeResult StatusCorey Peggy DOCLINISYNC IMAGINGFinal Result * URINE CULTURE, ROUTINE (03/19/2025 9:05 AM EST)ComponentValueRef RangeTest MethodAnalysis TimePerformed AtPathologist SignatureURINE CULTURE, ROUTINE ??Urine Culture, Routine TBHURINE CULTURE, ROUTINECulture shows less than 10,000 colony forming units of bacteria perTBHURINE CULTURE, ROUTINEmilliliter of urine. This colony count is not generally consideredTBHURINE CULTURE, ROUTINEto be clinically significant. TBHURINE CULTURE, ROUTINEPerformed at: [facility] HospitalTBHURINE CULTURE, [id number] [place], [place] [id number] CULTURE, ROUTINELab Director: Jordin Rao PhD, Phone: [phone] (Source)Anatomical Location / LateralityCollection Method / VolumeCollection TimeReceived Time 03/19/2025 9:05 AM EST03/19/2025 9:29 AM EST Narrative CLINISYNC - 03/20/2025 11:08 PM EST Authorizing ProviderResult TypeResult StatusCorey Peggy DOLAB BLOOD ORDERABLES Final ResultPerforming OrganizationAddressCity/State/ZIP CodePhone Number CLINISYNC [facility] * (ABNORMAL) [facility] URINE MICROSCOPIC ONLY (03/19/2025 9:05 AM EST)ComponentValue Ref RangeTest MethodAnalysis TimePerformed AtPathologist SignatureTBH WBC5-10 (A)NONE SEEN #/HPFTBHTBH RBC5-10(A)0 - 2 #/HPFTBHBACTERIA URINESMALL(A)NONE SEEN #/HPFTBHMUCUS URINENONE SEENNONE SEENTBHSQUAMOUS EPITHELIAL CELL URINE MODERATE(A)NONE/RARE #/LPFTBHCRYSTALS SEEN?None SeenNone Seen #/HPFTBHCAST SEEN?NONE SEENNONE SEEN #/LPFTBHURINE CULTURE INDICATEDYES-LCTBHSpecimen (Source)Anatomical Location / LateralityCollection Method / VolumeCollection TimeReceived Time03/19/2025 9:05 AM EST03/19/2025 9:29 AM EST Narrative ALANTN - 03/19/2025 9:44 AM EST Authorizing ProviderResult TypeResult StatusCorey Peggy DOCLINISYNCFinal Result Performing OrganizationAddressCity/State/ZIP CodePhone Number CLINISYNC [facility] * (ABNORMAL) [facility] UA (CLEAN/CATCH) VIDEO GAME TESTER/MICRO IF IND. (03/19/2025 9:05 AM EST) ComponentValueRef RangeTest MethodAnalysis TimePerformed AtPathologist SignatureCOLOR URINELT. YELLOWYELLOWTBHCLARITY URINECLEARCLEARTBHSPECIFIC GRAVITY URINE1.0101.005 - 1.025TBHPH URINE8.05.0 - 9.0TBHPROTEIN URINENEGATIVE NEG/TRACE mg/dLTBHGLUCOSE URINE UANEGATIVENEGATIVE mg/dLTBHBILIRUBIN URINE NEGATIVENEGATIVETBHKETONES URINETRACE(A)NEGATIVE mg/dLTBHBLOOD URINEMODERATE (A)NEGATIVETBHNITRITE URINENEGATIVENEGATIVETBHUROBILINOGEN URINE0.20.2 - 1.0 EU/dLTBHLEUKOCYTE ESTERASE URINESMALL(A)NEGATIVETBHURINE MICROSCOPIC INDICATED YESTBHSpecimen (Source)Anatomical Location / LateralityCollection Method / VolumeCollection TimeReceived Time03/19/2025 9:05 AM EST03/19/2025 9:29 AM EST Narrative CLINISYNC - 03/19/2025 9:44 AM EST Authorizing ProviderResult TypeResult StatusCorey Peggy DOCLINISYNCFinal Result Performing OrganizationAddressCity/State/ZIP CodePhone Number CLINAUNG [facility] * US OB follow up transabdominal approach [...] MD Authorizing ProviderResult TypeResult StatusVielka Romero NPIMG [facility] PROCEDURESFinal Result from Last 3 Months Insurance * Guarantor: Daphney GradyAccohi TypeRelation to PatientDate of BirthPhoneBilling AddressPersonal/XplcttZpgf2000 [address] [address] Care Teams Team MemberRelationshipSpecialtyStart DateEnd Alberto Mayes MD [address] [place] [address] [place] [address] PCP - Ykinvdh85/19/23
--- OUTSIDE RECORDS SUMMARY | 2025-05-12 08:45 | XMS_ITS | Encounter Summary ---
Author Organization [facility] Address [address] [place] [address] Care Team Providers Care Extrusion Press Adjuster Name Role Phone Alberto Mayes MD Primary Care Provider Encounter Details DateTypeDepartmentCare Team (Latest Contact Info)Gjfcuxxzdct27/16/2025Telephone [facility] [address] [facility] [place] [phone] Jack Woods DO [address] [facility] [address] [facility] [address] [place], [facility] Social History Tobacco UseTypesPacks/DayYears UsedDateSmoking Tobacco: NeverAlcohol UseStandard Drinks/WeekCommentsNever0 (1 standard drink = 0.6 oz pure alcohol)Caffeine intake: 3-4 cups per dayEstimated Date of OgkltaeeLuldeihkCyg94/16/2025 Based on last menstrual period of 07/23/2024Sex and Gender InformationValueDate RecordedSex Assigned at BirthNot on fileLegal KlmYasipo43/15/2023 7:33 PM EDT Gender IdentityNot on fileSexual OrientationNot on filedocumented as of this encounter Miscellaneous Notes * Telephone Encounter - Ale Erwin LPN - 04/29/2025 9:48 AM EST Maki from [facility] called and she states that patient was seen there today she has not kept anything down since Monday fluids or food. Patient is bringing up Bile she did have upper back pain which isnow gone. She does not have any Pre-E symptoms. Pressure is good 112/74 doing zofran every 4 hours not keeping down wants to know if she should send to ER as patient was planning on going there anyway but would like Dr carroll goodwin in. Spoke with provider states she does need to report to ER as does not have direct admit privilege anymore. Maki voiced understanding and patient will be sent to ER. documented in this encounter Plan of Treatment Not on file documented as of this encounter Visit Diagnoses Not on filedocumented in this encounter Care Teams Team MemberRelationshipSpecialtyStart DateEnd Date Alberto Mayes MD [address] [place] [address] [place] [address] PCP - Qapubof17/19/23documented as of this encounter
--- OUTSIDE RECORDS SUMMARY | 2025-05-12 08:45 | XMS_ITS | Encounter Summary ---
Author Organization [facility] Address [address] [place] [address] Care Team Providers Care Order Make Up Clerk Name Role Phone Alberto Mayes MD Primary Care Provider Encounter Details DateTypeDepartmentCare Team (Latest Contact Info)Yzajplsfhst77/15/2025Telephone [facility] [address] [place] [phone] Jack Woods DO [address] [facility] [address] [place], [facility]11 Social History Tobacco UseTypesPacks/DayYears UsedDateSmoking Tobacco: NeverAlcohol UseStandard Drinks/WeekCommentsNever0 (1 standard drink = 0.6 oz pure alcohol)Caffeine intake: 3-4 cups per dayEstimated Date of VjxjjyrqAyykhehtRrf71/16/2025 Based on last menstrual period of 07/23/2024Sex and Gender InformationValueDate RecordedSex Assigned at BirthNot on fileLegal VsoOlapmp51/15/2023 7:33 PM EDT Gender IdentityNot on fileSexual OrientationNot on filedocumented as of this encounter Miscellaneous Notes * Telephone Encounter - Ale Erwin LPN - 04/28/2025 10:49 AM EST After speaking with Patient was called and she states that she did have the upper back pain andshe started having the nausea and not able to hold anything down and she did try the Zofran and herstomach is not as sore today and she encouraged to try to get something small in and then take the medications. She states she thinks its from to many Nsaids. * Telephone Encounter - Ale Erwin LPN - 04/28/2025 9:59 AM EST I am just looking to talk to a nurse. It is been throwing up for several days since I have been discharged for C section. Um, and I just wanted to talk to someone about my symptoms and see what they advise. documented in this encounter Plan of Treatment Not on file documented as of this encounter Visit Diagnoses Not on filedocumented in this encounter Care Teams Team MemberRelationshipSpecialtyStart DateEnd Date Alberto Mayes MD [address] [place] [address] [place] [address] PCP - Oyjecym83/19/23documented as of this encounter
--- OUTSIDE RECORDS SUMMARY | 2025-05-12 08:45 | XMS_ITS | Encounter Summary ---
Author Organization [facility] Address [address] [place] [address] Care Team Providers Care Corporate Logistics Manager Name Role Phone Alberto Mayes MD Primary Care Provider Encounter Details DateTypeDepartmentCare Team (Latest Contact Info)Ldjmtrhhiho13/10/2025linisync Result Encounter [facility] Unsolicited Jack Woods, DO [address] [facility] [place] [address] Social History Tobacco UseTypesPacks/DayYears UsedDateSmoking Tobacco: NeverAlcohol UseStandard Drinks/WeekCommentsNever0 (1 standard drink = 0.6 oz pure alcohol)Caffeine intake: 3-4 cups per dayEstimated Date of RwyyhaorZkhapfvcWbn94/16/2025 Based on last menstrual period of 07/23/2024Sex and Gender InformationValueDate RecordedSex Assigned at BirthNot on fileLegal SkuTgmfir32/15/2023 7:33 PM EDT Gender IdentityNot on fileSexual OrientationNot on filedocumented as of this encounter Plan of Treatment Not on file documented as of this encounter Procedures Procedure NamePriorityDate/TimeAssociated DiagnosisCommentsALL CBC WITH AUTO NXHZAibnbwb06/10/2025 6:09 AM EST documented in this encounter Results * (ABNORMAL) ALL CBC WITH AUTO DIFF (04/23/2025 6:09 AM EST)ComponentValueRef RangeTest MethodAnalysis TimePerformed AtPathologist SignatureTBH WBC13.1(H) 4.0 - 11.0 10 3/uLTBHTBH RBC3.05(L)4.20 - 5.40 10 6/uLTBHTBH HGB8.7(L)12.0 - 16.0 g/dLTBHTBH HCT26.3(L)36.0 - 48.0 %TBHTBH MCV86.281.0 - 99.0 fLTBHTBH MCH 28.526.7 - 34.0 pgTBHTBH MCHC33.129.9 - 35.2 g/dLTBHTBH RDW13.111.0 - 15.0 % TBHTBH [id number] - 450 10 3/uLTBHTBH MPV10.39.5 - 13.5 fLTBHNEUTROPHILS PERCENT AUTO68.943.0 - 75.0 %TBHLYMPHOCYTES PERCENT AUTO19.6(L)20.5 - 60.0 % TBHMONOCYTES PERCENT AUTO9.81.7 - 12.0 %TBHTBH EO %0.2(L)0.9 - 7.0 %TBH BASOPHILS PERCENT AUTO0.40.2 - 2.0 %TBHIMMATURE GRANULOCYTES PCT AUTO1.1(H)0.0 - 0.5 %TBHNEUTROPHILS ABSOLUTE AUTO9.0(H)1.4 - 6.5 10 3/uLTBHLYMPHOCYTES ABSOLUTE AUTO2.61.2 - 3.8 10 3/uLTBHMONOCYTES ABSOLUTE AUTO1.3(H)0.3 - 0.8 10 3/uLTBHTBH EO #0.00.0 - 0.7 10 3/uLTBHBASOPHILS ABSOLUTE AUTO0.10.0 - 0.1 10 3/uLTBHIMMATURE GRANULOCYTES ABS AUTO0.15(H)0.00 - 0.03 10 3/uLTBHSpecimen (Source)Anatomical Location / LateralityCollection Method / VolumeCollection TimeReceived Time04/23/2025 6:09 AM EST04/23/2025 6:13 AM EST Narrative [facility]IN[facility]NC - 04/23/2025 6:21 AM EST Authorizing ProviderResult TypeResult StatusCorey Peggy DOCLINISYNCFinal Result Performing OrganizationAddressCity/State/ZIP CodePhone Number CLINIS[facility]NC [facility] documented in this encounter Visit Diagnoses Not on filedocumented in this encounter Care Teams Team MemberRelationshipSpecialtyStart DateEnd Date Alberto Mayes MD [address] [place] [address] [place] [address] PCP - Horuqks54/19/23documented as of this encounter
--- OUTSIDE RECORDS SUMMARY | 2025-05-12 08:48 | XMS_ITS | CCD ---
Author Organization [facility] Care Team Providers Care Qa Reviewer Name Role Phone KEYLA LEYVA Attending Unavailable Unavailable Primary Care Provider Unavailcasimiro Anton Rina Unavailable MD Zachary Mayes Primary Care Provider DO Paloma Vazquez Attending Provider MD Zachary Mayes Primary Care Provider MD Jackie Reardon Attending Provider [phone] DO Jack Woods Attending Provider Paloma Vazquez DO Unavailable Gerber NO, Alberto Primary Care Provider [facility] [phone] Jack Woods DO Attending Provider Unavailable Primary [...] Unavailable Alberto Mayes MD Primary Care Provider [phone] PEGGY, JACK R Referring Unavailable KAY BENTLEY [...] of OnsetReaction(s) Facility (20 sources)Cephalexin; Translations: [CEPHALEXIN]Drug Xpnpupl63-58-3600Qlphmk [place] (16 sources)predniSONE; Translations: [PREDNISONE]Drug Afesqfp85-38-0291Rxmyez [place] (20 sources)Ciprofloxacin; Translations: [CIPROFLOXACIN]Drug Wxbasve51-94-5246 Vomiting, GI intoleranceNOMissouri Baptist Medical Center (20 sources)PrednisonePropensity to adverse mwmgyekkh33-67-7349Qqhrxj And VomitingMoberly Regional Medical Center (1 source)CephalexinDrug Tpldoht81-20-2819BgwdfkhjvOhiohealth Nelsonville [facility] Center Repository (1 source)predniSONEDrug Jixlcem43-81-9832IdtnbsnqdOhiohealth Nelsonville [facility] Center Repository Medications Current Medications MedicationDrug Class(es)DatesSig (Normalized)Sig (Original)aspirin 81 mg oral tablet (20 sources)Platelet Aggregation Inhibitor, Nonsteroidal Anti-inflammatory Drug Start: 63-94-8717shdkeef 81 MG oral suspension 10/14/2023 Activeaspirin 81 mg chewable tablet Chew 1 tablet (81 mg total) and swallow in the morning. Active bisacodyl 10 mg rectal suppository (2 sources)Stimulant LaxativeStart: 10-08-2024 End: 06-57-5536vxijjwmux (Dulcolax) 10 MG suppository Indications: Other constipation Insert 1 suppository (10 mg)into the rectum Daily for 4 days 4 suppository 10/08/2024 10/12/2024 Activedocusate sodium 100 mg oral capsule (20 sources) End: 42-46-3150lbbo 1 capsule by mouth once dailydocusate sodium (Colace) 100 MG capsule Take 100 mg by mouth Daily 01/16/2025 DiscontinuedDoxylamine Succinate, Sleep, (UNISOM PO) (20 sources) End: 01-79-1205Glhpzmohxh Succinate, Sleep, (UNISOM PO) Take by mouth [...] mg rectal suppository (6 sources)CorticosteroidStart: 03-12-2025 End: 59-66-4083sdeluuchjslxiw (Anusol-HC) 25 MG suppository Indications: Hemorrhoids, unspecified hemorrhoid type Insert 1 suppository (25 mg) into the rectum in the morning and 1 suppository (25 mg) before bedtime. 6 suppository 03/12/2025 Activeibuprofen 600 mg oral tablet (10 sources)Nonsteroidal Anti-inflammatory DrugStart: 48-05-0542ehhc 1 tablet by mouth every six hours as needed for painomeprazole 40 mg delayed release oral capsule (20 sources)Proton Pump InhibitorStart: 10-08-2024 End: 50-60-2935czqz 1 capsule by mouth before mealtimeomeprazole (PriLOSEC) [address] capsule Indications: Gastroesophageal Reflux Disease , Heartburn Take 1 capsule (40 mg) by mouth in the morning. Take before meals. Do not crush or chew. 30 capsule 3 10/08/2024 01/16/2025 DiscontinuedStart: 09-19-2024 End: 01-62-1664khhx 1 capsule by mouth before mealtimeomeprazole (PriLOSEC) [address] capsule Indications: Gastroesophageal Reflux Disease , Heartburn Take 1 capsule (20 mg) by mouth in the morning. Take before meals. Do not crush or chew. 30 capsule 3 09/19/2024 10/08/2024 Discontinued (Reorder)ondansetron 4 mg oral tablet (20 sources)Serotonin-3 Receptor AntagonistStart: 31-67-8349ccfv 1 tablet by mouth every six hours as needed for nausea and vomitingondansetron (Zofran) 4 MG tablet Indications: Gastroesophageal reflux in ([facility] , Nausea and vomiting during ([facility] TAKE 1 TABLET BY MOUTH EVERY 6 HOURS NEEDED FOR NAUSEAAND VOMITING 30 tablet 3 03/10/2025 ActiveStart: 80-21-1611eqfr 1 tablet by mouth every six hours as needed for nausea and nausea, then take 1 tablet by mouthevery six hours as needed for nausea and nauseaondansetron (Zofran) 4 MG tablet Indications: Gastroesophageal reflux in ([facility]) , Nausea and vomiting during ([facility]) Take 1 tablet (4 mg) by mouth every 6 (six) hours if needed for nausea or vomiting for up to 30 doses Take 1 tablet by mouth every 6 hours as needed for nausea. 30 tablet 3 11/20/2024 ActiveStart: 71-12-4582tvqh 1 tablet by mouth every six hours as needed for nausea and nausea, then take 1 tablet by mouthevery six hours as needed for nausea and nauseaondansetron (Zofran) 4 MG tablet Indications: Gastroesophageal reflux in ([facility]) , Nausea and vomiting during ([facility]) Take 1 tablet (4 mg) by mouth [...] as needed for nausea or vomiting. ActivePNV 20-stkh-gnxzwsbjaohi-dha 29 mg iron-1 mg -350 mg comb pack,tablet DR,capsule DR (2 sources)take 1 tablet by mouth in the morningPNV 84-jfkj-btforasytwny-dha 29 mg iron-1 mg -350 mg comb pack,tablet DR,capsule DR Take 1 tablet by mouth in the morning. Activepolysaccharide iron complex 391 mg oral capsule (5 sources)Start: 01-07-2025 End: 30-11-6591aqwd 1 capsule by mouth once dailyiron polysaccharides (ProFe) 391.3 (180 Fe) MG capsule Indications: Second trimester ([facility]) Take 1 capsule (391.3 mg) by mouth Daily 30 capsule 6 01/07/2025 01/16/2025 DiscontinuedpredniSONE 20 mg oral tablet (1 source)Start: 58-65-2047ylpx 1 tablet by mouth every twelve hoursprednisone 20 MG 1 tablet Orally BID for 5 Mar, ActivePrenatal Vit w/Lk-Wbgzufqnp-KJ (PNV PO) (20 sources) Vit w/Ip-Wswikhtdl-BU (PNV PO) ActiveProgesterone 200 MG suppository (4 sources)Start: 09-05-2024 End: 69-71-4836Jebtcywzuxpi 200 MG suppository Indications: History of miscarriage Insert 200 mg into the vagina in the morning and 200 mg before bedtime. Do all this for 15 days. 30 suppository 3 09/05/2024 09/20/2024 Active Start: 02-14-2024 End: 79-34-4696Dqercqvdpfko 200 MG suppository Indications: History of miscarriage Insert 200 mg into the vagina in the morning and 200 mg before bedtime. 30 suppository 3 02/14/2024 03/15/2024 ActiveStart: 2024 End: 95-88-0598Udlwcwvyufqb 200 MG suppository Indications: History of miscarriage Insert 200 mg into the vagina at bedtime Insert suppository vaginally every night at bedtime until 12 weeks gestation 30 suppository 3 2024 03/07/2024 Activepyridoxine hydrochloride 25 mg oral tablet (20 sources) End: 26-83-1896leya 1 tablet by mouth once dailypyridoxine (Vitamin B-6) 25 MG tablet Take 25 mg by mouth Daily 01/16/2025 DiscontinuedtraMADol hydrochloride 50 mg oral tablet (10 sources)Opioid AgonistStart: 83-83-6498ibos 1 tablet by mouth every four to six hours as needed for pain Completed/Discontinued Medications MedicationDrug Class(es)DatesSig (Normalized)Sig (Original)acetaminophen 325 mg / HYDROcodone bitartrate 5 mg oral tablet (1 source)Opioid AgonistStart: 02-01-2019 End: 32-98-6904NLZDVmrvxzg-acetaminophen (NORCO) 5-325 MG per tablet 1 tablet progesterone 200 mg oral capsule (1 source)Progesterone End: 00-62-7173epzu 1 capsule by mouth in the morningprogesterone (PROMETRIUM) 200 mg capsule Take 1 capsule (200 mg total) by mouth in the morning. 11/12/2024 Discontinued Problems Active Problems Problem ClassificationProblemDateDocumented DateEpisodic/ChronicBenign neoplasm of uterus (2 sources)Leiomyoma of uterus, unspecified; Translations: [Leiomyoma of uterus, unspecified]Onset: 12-45-5034ImtdgzisVcyibng dysrhythmias (2 sources)Postural orthostatic tachycardia syndrome ; Translations: [POTS (postural orthostatic tachycardia syndrome)]46-07-9118MfacsjnRabvtod dysrhythmias (12 sources)Palpitations; Translations: [Tachycardia]Onset: EpisodicContraceptive and procreative management (4 sources)Patient encounter status; Translations: [Encounter for procreative management, unspecified]32-51-7057GuwsouqpJcruhsqd mellitus without complication (2 sources)Abnormal glucose tolerance test; Translations: [Other abnormal glucose]41-78-9097FbzscgvdFqlgky infertility (2 sources)Female infertility; Translations: [Female infertility, unspecified] 19-09-9457ReyklvgAynyxcfcwbc (2 sources)Hemorrhoids; Translations: [Unspecified hemorrhoids]03-12-2025 EpisodicImmunizations and screening for infectious disease (2 sources)Exposure to sexually transmissible disorder; Translations: [Contact with and (suspected) exposure to infections with a predominantly sexual mode of transmission]92-16-8359PeqswecuXzadjandg disorders (2 sources)Missed period; Translations: [Irregular menstruation, unspecified] Onset: 405808-96-0574DtwonvbZepfm complications of (5 sources)Gastroesophageal reflux disease in ; Translations: [Diseases of the digestive system complicating , unspecified trimester] 37-34-9323YjbpmyqjPjfsx complications of (1 source)Vomiting of , unspecified; Translations: [Unspecified vomiting of , unspecified as to episode of care or not applicable] 18-82-4227NfqzrhonMtxjp complications of (3 sources)Uterine fibroids affecting ; Translations: [Maternal care for benign tumor of corpus uteri, second trimester]15-68-6089SykouydrPmyyl complications of (2 sources)Maternal care for benign tumor of corpus uteri, second trimester; Translations: [Maternal care for benign tumor of corpus uteri, second trimester] Onset: 18-57-5809KjqsfmksAhudr complications of (2 sources) size does not accord with dates; Translations: [Uterine size- date discrepancy, unspecified trimester]48-06-6918TakxidobIakqz connective tissue disease (4 sources)Pain in right lower limb; Translations: [Pain in right leg]02-26-2025 EpisodicOther endocrine disorders (2 sources)Disorder of endocrine system; Translations: [Endocrine disorder, unspecified]79-33-0520OdwzqzifSvxyc female genital disorders (2 sources)Other specified conditions associated with female genital organs and menstrual cycle; Translations:[Other specified conditions associated with female genital organs and menstrual cycle]Onset: 17-74-5137QzwrtfmaCvvds female genital disorders (2 sources)Vaginal discharge; Translations: [Other specified noninflammatory disorders of vagina]73-55-1679AshqcrfaHrptq gastrointestinal disorders (2 sources)Constipation; Translations: [Other constipation]94-16-5767Nrjycmbw Other gastrointestinal disorders (4 sources)Mass of uterine adnexa; Translations: [Other specified conditions associated with female genital organs and menstrual cycle]84-05-4668Bqowglgg Other and delivery including normal (20 sources); Translations: [Encounter for supervision of normal , unspecified, unspecified trimester]94-96-5673ZrvlbecwRxhhs screening for suspected conditions (not mental disorders or infectious disease) (1 source)Encounter for other specified screening; Translations: [Encounter for other specified screening]Onset: 34-13-0088Bumsbzxi Other skin disorders (4 sources)Localized swelling of right lower limb; Translations: [Localized swelling, mass and lump, right lower limb]59-36-8744HdahuylhMmfzk skin disorders (2 sources)Localized swelling, mass and lump, right lower limb; Translations: [Localized swelling, mass and lump, right lower limb]Onset: 34-94-5518Xhoaezuc Other upper respiratory infections (2 sources)Acute pharyngitis, unspecified; Translations: [Acute upper respiratory infection, unspecified]EpisodicResidual codes; unclassified (2 sources)H/O: miscarriage; Translations: [Personal history of other complications of , childbirth and the puerperium]97-26-7531Prapfedt Residual codes; unclassified (2 sources)Gestation period, 11 weeks; Translations: [11 weeks gestation of ]01-17-7394OcgiybizHhumhxzv codes; unclassified (2 sources)Gestation period, 16 weeks; Translations: [16 weeks gestation of ]88-91-3938JstoklnwCxesngja codes; unclassified (1 source)16 weeks gestation of ; Translations: [16 weeks gestation of ]Onset: 53-70-4549AcdkpeqiWmqztyqg codes; unclassified (2 sources)Gestation period, 15 weeks; Translations: [15 weeks gestation of ]81-84-2289NvunoxxlTppvlyjn codes; unclassified (2 sources)Gestation period, 19 weeks; Translations: [19 weeks gestation of ]55-91-6281JfytlkhiTzmqahct codes; unclassified (4 sources)Gestation period, 23 weeks; Translations: [23 weeks gestation of ]40-34-8466YfwlghlxJxaeeihy codes; unclassified (2 sources)Gestation period, 25 weeks; Translations: [25 weeks gestation of ]22-35-7904BxdcypsgJycvwcbx codes; unclassified (2 sources)26 weeks gestation of ; Translations: [26 weeks gestation of ]Onset: 43-62-8292VwpofbtlCkqzevke codes; unclassified (2 sources)Gestation period, 27 weeks; Translations: [27 weeks gestation of ]27-02-5320WhdbadyjYmjozhpj codes; unclassified (2 sources)Gestation period, 29 weeks; Translations: [29 weeks gestation of ]12-11-9167XwucxnbqUyfjinkd codes; unclassified (2 sources)Gestation period, 31 weeks; Translations: [31 weeks gestation of ]20-99-5731NsaqvdbiCwqmhvir codes; unclassified (2 sources)Gestation period, 33 weeks; Translations: [33 weeks gestation of ]07-54-1086OpehxnpcBdrflfe (4 sources)Syncope; Translations: [Syncope and collapse]Onset: 01-24-2025 28-47-6715LixuomyvAfyihijadnbi (1 source)Enlarged & Heterogeneous Bilateral OvariesOnset: 11-12-2024 Past or Other Problems Problem ClassificationProblemDateDocumented DateEpisodic/ChronicAbdominal pain (1 source)Right lower quadrant pain; Translations: [Abdominal pain, right lower quadrant]EpisodicOther complications of (1 source)Supervision of with other poor reproductive or obstetric history, unspecified trimester; Translations: [Supervision of with other poor reproductive or obstetric history, unspecified trimester]Onset: 49-91-4320RklmlejqXhqdd female genital disorders (1 source)H/O gynecological disorder; Translations: [History of ovarian cyst] EpisodicResidual codes; unclassified (1 source)Personal history of other complications of , childbirth and the puerperium; Translations: [Personal history of other complications of , childbirth and the puerperium]Onset: 75-16-5096Cjsfidxh Results Test NameValueInterpretationReference RangeFacilityNo Panel InformationOrdered By: Radiologist Radiology on 13-92-3697[facility] Work Phone: No Panel Informationon 93-52-4003Suddbzbjo Study observation (narrative)NOMS HealthcareUS OB CERVICAL LENGTHon 06-47-3675[place]zkFort [place] [address] Ultrasound Report Signed Patient: DAPHNEY GRADY MR#: [id number] : 2000 Acct:[id number] Age/Sex: 25 / F ADM Date: Loc: [facility] Attending Dr: Jack Woods D.O. Ordering Physician: Peggy,Jack D.O. Date of Service: 03/19/25 Procedure(s): US OB cervical length Accession Number(s): [id number] cc: Alberto Mayes M.D.; Jack Woods D.O. [address] [address] Patient Name: DAPHNEY GRADY MRN: [id number] date: 2000 Sex: F Assigned Patient Location: [facility] Current Patient Location: [facility] Accession/Order Number: [id number] Exam Date: 03/19/2025 10:05 Report Date: 03/19/2025 [...] Rojas M.D. 03/19/2025 10:57 AM Dictation Location: [place] [address] Electronically authenticated by: [id number] Y Date: 03/19/2025 10:57 Dictated By: Lisa Rojas M.D. Signed By: 03/19/25 1100 DD/ 1057 TD/TT: Events Intern:ESTEFANYadiologashish, Radiologist, - 03/19/2025 [place] [address] Ultrasound Report Signed Patient: DAPHNEY GRADY MR#: [id number] : 2000 Acct:[id number] Age/Sex: 25 / F ADM Date: Loc: [facility] 250-[address]: Jack Woods D.O. Ordering Physician: Jack Woods D.O. Date of Service: 03/19/25 Procedure(s): US OB cervical length Accession Number(s): [id number] cc: Alberto Mayes M.D.; Jack Woods D.O. [place] [address] Patient Name: DAPHNEY GRADY MRN: [id number] date: 2000 Sex: F Assigned Patient Location: [facility] Current Patient Location: [facility] Accession/Order Number: [id number] Exam Date: 03/19/2025 10:05 Report Date: 03/19/2025 [...] Rojas M.D. 03/19/2025 10:57 AM Dictation Location: [place] [address] Electronically authenticated by: [id number] Y Date: 03/19/2025 10:57 Dictated By: Lisa Rojas M.D. Signed By: 03/19/251099 DD/ 105 TD/TT: Events Intern: RIMMA Looney OB BPP W NON-STRESSon 25-22-0833Lew[place] [address] Ultrasound Report Signed Patient: DAPHNEY GRADY MR#: [id number] : 2000 Acct:[id number] Age/Sex: 25 / F ADM Date: Loc: [facility] Attending Dr: Jack Woods D.O. Ordering Physician: Jack Woods D.O. Date of Service: 03/19/25 Procedure(s): US OB BPP w non-stress Accession Number(s): [id number] cc: Alberto Mayes M.D.; Jack Woods D.O. [place] [address] Patient Name: DAPHNEY GRADY MRN: [id number] date: 2000 Sex: F Assigned Patient Location: [facility] Current Patient Location: [facility] Accession/Order Number: [id number] Exam Date: 03/19/2025 10:05 Report Date: 03/19/2025 [...] Rojas M.D. 03/19/2025 10:57 AM Dictation Location: [place] [address] Electronically authenticated by: [id number] Y Date: 03/19/2025 10:57 Dictated By: Lisa Rojas M.D. Signed By: 03/19/25 1100 DD/ 1057 TD/TT: Events Intern:TBHRadiology, Radiologist, - 03/19/2025 [place] [address] Ultrasound Report Signed Patient: DAPHNEY GRADY MR#: [id number] : 2000 Acct:[id number] Age/Sex: 25 / F ADM Date: Loc: [facility] 250- Attending Dr: Jack Woods D.O. Ordering Physician: Jack Woods D.O. Date of Service: 03/19/25 Procedure(s): US OB BPP w non-stress Accession Number(s): [id number] cc: Alberto Mayes M.D.; Jack Woods D.O. [address] [address] Patient Name: DAPHNEY GRADY MRN: [id number] date: 2000 Sex: F Assigned Patient Location: [facility] Current Patient Location: [facility] Accession/Order Number: [id number] Exam Date: 03/19/2025 10:05 Report Date: 03/19/2025 [...] Rojas M.D. 03/19/2025 10:57 AM Dictation Location: [place] [address] Electronically authenticated by: [id number] Y Date: 03/19/2025 10:57 Dictated By: Lisa Rojas M.D. Signed By: 03/19/25 1100 DD/ 1057 TD/TT: Events Intern: RIMMA HOPE PLACENTAon 86-75-9054WbcFort [place] [address] Ultrasound Report Signed Patient: DAPHNEY GRADY MR#: [id number] : 2000 Acct:[id number] Age/Sex: 25 / F ADM Date: Loc: [facility] 250-[address]: Jack Woods D.O. Ordering Physician: Jack Woods D.O. Date of Service: 03/19/25 Procedure(s): US OB placenta Accession Number(s): [id number] cc: Alberto Mayes M.D.; Jack Woods D.O. [place] [address] Patient Name: DAPHNEY GRADY MRN: [id number] date: 2000 Sex: F Assigned Patient Location: [facility] Current Patient Location: [facility] Accession/Order Number: [id number] Exam Date: 03/19/2025 10:05 Report Date: 03/19/2025 [...] Rojas M.D. 03/19/2025 10:57 AM Dictation Location: [place] [address] Electronically authenticated by: [id number] Y Date: 03/19/2025 10:57 Dictated By: Lisa Rojas M.D. Signed By: 03/19/251099 DD/ 56 TD/TT: Events Intern:ESTEFANYadiologashish, Radiologist, - 03/19/2025 [place] [address] Ultrasound Report Signed Patient: DAPHNEY GRADY MR#: [id number] : 2000 Acct:[id number] Age/Sex: 25 / F ADM Date: Loc: [facility] Attending Dr: Jack Woods D.O. Ordering Physician: Jack Woods D.O. Date of Service: 03/19/25 Procedure(s): US OB placenta Accession Number(s): [id number] cc: Alberto Mayes M.D.; Jack Woods D.O. [place] [address] Patient Name: DAPHNEY GRADY MRN: [id number] date: 2000 Sex: F Assigned Patient Location: [facility] Current Patient Location: [facility] Accession/Order Number: [id number] Exam Date: 03/19/2025 10:05 Report Date: 03/19/2025 [...] Rojas M.D. 03/19/2025 10:57 AM Dictation Location: [place] [address] Electronically authenticated by: [id number] Y Date: 03/19/2025 10:57 Dictated By: Lisa Rojas M.D. Signed By: 03/19/25 1100 DD/ 1057 TD/TT: Events Intern: RIMMA [place] CBC WITH AUTO DIFFon 92-46-0867KZDQFKPLF ABSOLUTE AUTO0.1NOMS HealthcareBasophils/100 WBC (Bld)0.5 %0.2 - 2.0 %NOMS HealthcareEosinophils/100 WBC (Bld)0.8 %Low0.9 - 7.0 %NOMS HealthcareErythrocyte distribution width (RBC) [Ratio]12.7 %11.0 - 15.0 %NOMS HealthcareHematocrit (Bld) [Volume fraction]29.8 %Low36.0 - 48.0 %NOMS HealthcareHemoglobin (Bld) [Mass/Vol]10.0 g/dLLow12.0 - 16.0 g/dLMoberly Regional Medical CenterIMMATURE GRANULOCYTES ABS AUTO0.19HighMoberly Regional Medical Center Immature granulocytes/100 WBC (Bld)1.9 %High0.0 - 0.5 %[facility] Interpretation and review of laboratory resultsAbnoWellSpan Surgery & Rehabilitation Hospital LYMPHOCYTES ABSOLUTE AUTO1.7Moberly Regional Medical CenterLymphocytes/100 WBC (Bld)17.1 %Low 20.5 - 60.0 %[facility] HospitalH (RBC) [Entitic mass]29.7 pg26.7 - 34.0 pgSaint John's Saint Francis HospitalHC (RBC) [Mass/Vol]33.6 g/dL29.9 - 35.2 g/dLSaint John's Saint Francis HospitalV (RBC) [Entitic vol]88.4 fL81.0 - 99.0 fLMoberly Regional Medical CenterMONOCYTES ABSOLUTE AUTO0.8NOMissouri Baptist Medical CenterMonocytes/100 WBC (Bld)7.5 %1.7 - 12.0 %[facility] CenterNEUTROPHILS ABSOLUTE AUTO7.3HighMoberly Regional Medical CenterNeutrophils/100 WBC (Bld)72.2 %43.0 - 75.0 % [facility] CenterPlatelet mean volume (Bld) [Entitic vol]9.7 fL9.5 - 13.5 fLMoberly Regional Medical CenterTB EO #0.1NOMS [facility] HospitalTB QQD100WUKUTenet St. Louis RBC3.37LowNOTenet St[address] Louis WBC10.0NOMissouri Baptist Medical CenterCLINISYNCNLake Regional Health SystemUrinalysis macro (dipstick) panel (U)on 24-46-2554Bcgmtlovz, UANegativeNegative - 4(70) +++ mg/dL [facility] CenterBlood, UANegativeNegative - 50 Clarke/mcLSALT LAKE BE[facility]IORAL [facility] HealthcareClarity, UA ClearNONC HealthcareColor, UAYellowNONC HealthcareGlucose, UANegativeNegative - 2000(110) ++++ mg/dLMoberly Regional Medical CenterInterpretation and review of laboratory resultsAbnormEncompass Health Rehabilitation Hospital of YorkKetones, UANegativeNegative - 160(16) ++++ mg/dL [facility] CenterLeukocytes, UAPositiveNegative - 500+++ Kamaljit/mcLSALT LAKE BE[facility]AVIORAL [facility] Healthcare Comment on above:2+Nitrite, UANegativeNegative - PositiveNOMS HealthcarepH, UA 8.05 - 9NOMS HealthcareProtein, UANegativeNegative - 1999(20) ++++ mg/dLNOMS HealthcareSpec Grav, UA1.0101 - 1.03NOMS HealthcareUrobilinogen, UA0.20.2 - 12 mg/dLNOMS HealthcareNOMS HealthcareUS OB FOLLOW UP TRANSABDOMINAL APPROACHon 46-59-5586BO OB FOLLOW UP TRANSABDOMINAL APPROACHFINDINGS: A single, [...] Delivery: 04/29/25 Gestational Age as of 02/11/2025: 37r3gLzmgaxiuya macro (dipstick) panel (U)on 17-71-5792Ilxzsncfh, UANegativeNegative - 4(70) +++ mg/dLNOMS HealthcareBlood, UANegativeNegative [...] HealthcareNOMS Healthcare Urinalysis macro (dipstick) panel (U)on 16-59-9929Atkxxjbon, UANegativeNegative - 4(70) +++ mg/dLNOMS HealthcareBlood, UANegativeNegative [...] 12 mg/dLNOMS HealthcareNOMS HealthcareGLUCOSE TOLERANCE 3 HOURon 76-98-1742TPJOXZG TOLERANCE 3 HOURmg/dLNOMS HealthcareComment on above:GLU FAST [...] ++++ mg/dLNOMS HealthcareInterpretation and review of laboratory resultsAbnormalNONC Healthcare Ketones, UANegativeNegative - 160(16) ++++ mg/dLNOMS HealthcareLeukocytes, UA PositiveNegative - 500+++ Kamaljit/mcLNOMS HealthcareComment on above:3+Nitrite, UA NegativeNegative - PositiveNOMS HealthcarepH, UA6.55 - 9NOMS HealthcareProtein, UANegativeNegative - 2000(20) ++++ mg/dLNOMS HealthcareSpec Grav, UA1.011 - 1.03 NOMS HealthcareUrobilinogen, UA0.20.2 - 12 mg/dLNONC HealthcareNONC Healthcare GLUCOSE 1 HOURon 90-69-0852Lhbjinb [Mass/Vol]150 mg/dLHighNINF - 130 mg/dLNOMS HealthcareInterpretation and review of laboratory resultsAbnormalNONC Healthcare CLINISYNCNONC HealthcareOffice Visiton 60-50-2867Ivedgk-up [id number] Daphney Al 2000 F Date Provider Department Center 01/24/2025 68[address]-YDCREBKAY APODACA HANNAH [facility] Family History Problem Relation Age of Onset Hypertension Father Family Status - Relation Status Age at Mother Alive Father Alive Level of Service:23413 [place] OFFICE/OUTPATIENT NEW LOW MDM 30 MINUTES Reason for Visit and Comments: New Patient [632] - Patient is here today as a new patient to establish care with cariology Syncope [506] Palpitations [500913] 26 weeks [Other][facility] ECHO DOPPLER COMPLETEon 03-55-9713S[address] [address] Cardiology Report Signed Patient: DAPHNEY AL MR#: [id number] : 2000 Acct:[id number] Age/Sex: 24 / F ADM Date: 01/20/25 Loc: CARD Attending Dr: Jayla Art Ordering Physician: Jayla Art Date of Service: 01/20/25 Procedure(s): [place] echo doppler complete Accession Number(s): [id number] cc: Jayla Art; Alberto Mayes M.D. Patient Name: DAPHNEY AL MR#: [id number] : 2000 Exam Date: 01/20/2025 Ordering Doctor: [...] Marie M.D. Signed By: 01/21/2559 DD/ TD/TT: Events Intern:TBHRadiology, Radiologist, - 01/21/2025 [place] [address] Cardiology Report Signed Patient: DAPHNEY AL MR#: [id number] : 2000 Acct:[id number] Age/Sex: 24 / F ADM Date: 01/20/25 Loc: CARD Attending Dr: Jayla Art Ordering Physician: Jayla Art Date of Service: 01/20/25 Procedure(s): CA echo doppler complete Accession Number(s): [id number] cc: Jayla Art; Alberto Mayes M.D. Patient Name: DAPHNEY AL MR#: [id number] : 2000 Exam Date: 01/20/2025 Ordering Doctor: [...] M.D. Signed By: 01/21/25958 DD/ 7 TD/TT: Events [facility]: [facility] CenterRad[facility] observation (narrative)[facility] ECHO DOPPLER COMPLETEOrdered By: Radiologist Radiology on 46-44-3912NHMTMoberly Regional Medical Center Work Phone: Urinalysis macro (dipstick) panel (U)on 01-16-2025 Bilirubin, UANegativeNegative - 4(70) +++ mg/dLNOMS HealthcareBlood, UAPositive Negative - 50 Clarke/mcLNOMS HealthcareComment on above:3+Clarity, UAClearNONC HealthcareColor, UAYellowNOMS HealthcareGlucose, UANegativeNegative - 1999(110) ++++ mg/dLNONC HealthcareInterpretation and review of laboratory resultsAbnormal [facility] HealthcareKetones, UANegativeNegative - 160(16) ++++ mg/dLNONC Healthcare Leukocytes, UAPositiveNegative - 500+++ Kamaljit/mcLNOMS HealthcareComment [...] HealthcareNOMS Healthcare Urinalysis macro (dipstick) panel (U)on 47-45-1417Qbhifengy, UANegativeNegative - 4(70) +++ mg/dLNOMS HealthcareBlood, UANegativeNegative - 50 Clarke/mcLNOMS HealthcareClarity, UAClearNOMS HealthcareColor, UAYellowNOMS HealthcareGlucose, UANegativeNegative - 2000(110) ++++ mg/dLNOMS HealthcareInterpretation and review of laboratory resultsAbnormalNOMS HealthcareKetones, UANegativeNegative - 160(16) ++++ mg/dLNOMS HealthcareLeukocytes, UANegativeNegative - 500+++ Kamaljit/mcLNONC HealthcareNitrite, UANegativeNegative - PositiveNOMS HealthcarepH, UA65 - 9NOMS HealthcareProtein, UANegativeNegative - 2000(20) ++++ mg/dLNOMS HealthcareSpec Grav, UA1.011 - 1.03NOMS HealthcareUrobilinogen, UA1.00.2 - 12 mg/dLNOMS HealthcareNOMS HealthcareUrinalysis macro (dipstick) panel (U)on 82-77-7020Vksbzulxj, UANegativeNegative - 4(70) +++ mg/dLNOMS HealthcareBlood, UANegativeNegative - 50 Clarke/mcLNOMS HealthcareClarity, UAClearNOMS Healthcare Color, UAYellowNONC HealthcareGlucose, UANegativeNegative - 2000(110) ++++ mg/dL [facility] HealthcareInterpretation and review of laboratory resultsAbnormalNOMS HealthcareKetones, UANegativeNegative - 160(16) ++++ mg/dLSALT LAKE BE[facility]IORAL [facility] Healthcare Leukocytes, UAPositiveNegative - 500+++ Kamaljit/mcLSALT LAKE [facility] HealthcareComment on above: SmallNitrite, UANegativeNegative - PositiveNOMS HealthcarepH, UA75 - 9NOMS HealthcareProtein, UANegativeNegative - 2000(20) ++++ mg/dLSALT LAKE [facility]AL [facility] HealthcareSpec Grav, UA1.011 - 1.03NONC HealthcareUrobilinogen, UA1.00.2 - 12 mg/dLNOMissouri Baptist Medical CenterNONC HealthcareFetal Free Cell DNA (Non-[facility] Send Out)on 69-89-9179HewNvcprw Health SystemPATHOLOGY REQUEST FOR LAB CORPon 11-12-2024 PATHOLOGY REQUEST FOR LAB CORPSALT [facility]KE [facility] HealthcareComment on above:See report. Scanned copy available in EMR.SKIN TAGFIRELANDSSALT LAKE BEHAVIORAL HEALTH HOSPITAL HealthcareIGP,APTIMA HPV,AGE GDLNon 12-88-4943XWA GDLN ACOG TESTINGNote.[facility] HealthcareComment on above: TESTS RESULT FLAG UNITS REF RANGE LAB Clinician Provided Cytology Information Source.............Cervix No. of containers..01 ThinPrep Vial Age Algo ACOG Nery... -12 06 FLAG LEGEND: L-Low Normal,H-High Normal,LL-Alert Low,HH-Alert High <-Panic Low,>-Panic High,A-Abnormal,AA-Critical Abnormal Performed at: 01 =G [facility] [place] [address] Gypsy Mtz MD, IGP, RFX APTIMA HPV ASCUNote.NOMS HealthcareComment on above:TESTS RESULT FLAG UNITS REF RANGE LAB DIAGNOSIS: 02 NEGATIVE FOR INTRAEPITHELIAL LESION OR MALIGNANCY. THIS SPECIMEN WAS RESCREENED PART OF OUR GUEST REQUEST RUNNER PROGRAM. Specimen adequacy: 02 Satisfactory for evaluation. Endocervical and/or squamous metaplastic cells (endocervical component) are present. Performed by: 02 Felicity Rosen, [employer] De[employer] Remover (ASCP) QC reviewed by: 02 Esme Mahoney, [employer] Remover (ASCP) . 02 Note: Note 02 The [...] <-Panic Low,>-Panic High,A-Abnormal,AA-Critical Abnormal Performed at: [address] [address] Gypsy Mtz MD, Performed at: = - [facility] [address] [id number] Fender Repairer: Gypsy Mtz MD, Phone: [phone] Performed at: - [facility] [id number] Fender Repairer: Gypsy Mtz MD, Phone: [phone] SPATULA-ALONE CERVIX CLINISYNCNOMS HealthcareRECURRENT VAGINITIS (HTRX)on 33-32-2686KHBRUSCWU VAGINAE 0NOMS HealthcareATOPOBIUM VAGINAENot detectedNOMS HealthcareBVAB 2,3 (BACTERIAL VAGINOSIS ASSOCIATED BACTERIA 2, 3); MOBILUNCUS EKV1UOLL HealthcareBVAB 2,3 (BACTERIAL VAGINOSIS ASSOCIATED BACTERIA 2, 3); MOBILUNCUS SPPNot detectedNOMS HealthcareCANDIDA ALBICANS, PARAPSILOSIS, ZVPAFOVVVG2ARZL HealthcareCANDIDA ALBICANS, PARAPSILOSIS, TROPICALISNot detectedNOMS HealthcareCANDIDA GLABRATA0 NOMS HealthcareCANDIDA GLABRATANot detectedNOMS HealthcareCANDIDA CXWYFB3ADWX HealthcareCANDIDA KRUSEINot detectedNOMS HealthcareCHLAMYDIA MEWIUZBQIWF5OZXS HealthcareCHLAMYDIA TRACHOMATISNot detectedNOMS HealthcareGARDNERELLA VAGINALIS0 NOMS HealthcareGARDNERELLA VAGINALISNot detectedNOMS HealthcareMEGASPHAERA (TYPES 1, 2)0NOMS HealthcareMEGASPHAERA (TYPES 1, 2)Not detectedNOMS Healthcare MYCOPLASMA UEYHPSRCIV6CVFE HealthcareMYCOPLASMA GENITALIUMNot detectedNOMS HealthcareNEISSERIA SCOVJIFGLRV5OBSX HealthcareNEISSERIA GONORRHOEAENot detected NOMS HealthcareTRICHOMONAS HWXDHZNEB8ZJME HealthcareTRICHOMONAS VAGINALISNot detectedNOMS HealthcareNOMS HealthcarePathology Request for Lab Corpon 04-71-8796Xpcpesbxk Request for Lab [facility] Comment on above:Order Comment: SKIN TAGResult Comment: See report. Scanned copy available in EMR. PERFORMED BY: [facility] [place] [address] PATHOLOGIST [employer] JOSUÉ VALENZUELA M.D.Performed By: #### PROG #### [facility] ,Urinalysis macro (dipstick) panel (U)on 95-34-8787Vehtzaryj, UANegativeNegative - 4(70) +++ mg/dLNOMS HealthcareBlood, UANegativeNegative [...] mg/dLNOMS HealthcareNOMS HealthcareUrinalysis macro (dipstick) panel (U)on 15-98-1476Ocvlobmal, UANegativeNegative - 4(70) +++ mg/dLNOMS HealthcareBlood, UANegativeNegative - 50 Clarke/mcLNOMS HealthcareClarity, UAClearNOMS Healthcare Color, UAYellowNOMS HealthcareGlucose, UANegativeNegative - 2000(110) ++++ mg/dL NOMS HealthcareInterpretation and review of laboratory resultsAbnormalNOMS HealthcareKetones, UANegativeNegative - 160(16) ++++ mg/dLNOMS Healthcare Leukocytes, UATraceNegative - 500+++ Kamaljit/mcLNOMS HealthcareNitrite, UANegative Negative - PositiveNOMS HealthcarepH, UA65 - 9NOMS HealthcareProtein, UANegative Negative - 1999(20) ++++ mg/dLNONC HealthcareSpec Grav, UA1.021 - 1.03NONC HealthcareUrobilinogen, UA0.20.2 - 12 mg/dLNOMissouri Baptist Medical CenterNONC HealthcareMLR HEMOGLOBIN A1Con 63-83-5056Lntldze [Mass/Vol]100 mg/dLMoberly Regional Medical CenterHbA1c (Bld) [Mass fraction]5.1 %4.5 - 6.2 %NOMS HealthcareComment on above:ADA RECOMMENDED LIMIT 4.0 - 6.0 ADA THERAPEUTIC TARGET < 7.0 ACTION SUGGESTED > 7.0 CLINISYNCNONC HealthcareHCG ( test) Ql (U)on 13-54-9774Zrzmndbuynehyt and review of laboratory resultsAbnormalNONC HealthcarePreg Test, UrPositive NegativeNOLafayette Regional Health Center HealthcareUS OB TRANSVAGINALon 26-42-3474RA OB TRANSVAGINALEXAM: US OB TRANSVAGINAL HISTORY: Dating/viability. [...] PHD at 22-Sep-2024 08:21:31 PM [facility] TeleradiologyNormalNot AvailableComment on above:Order Comment: US OB TRANSVAGINAL No LMP recorded.Urinalysis macro (dipstick) panel (U)on 92-37-5629Dgkcvhgug, UA NegativeNegative - 4(70) +++ mg/dLNOMS HealthcareBlood, [...] II, MD, PHD at 28-Aug-2024 11:25:24 PM [facility] TeleradiologyNormalNot AvailableComment on above:Order Comment: US OB TRANSVAGINAL No LMP recorded.TB PREG QUANT HCGon 40-11-2131DSJ WZUDDXLLVMVH7515uKN/mLNOMS HealthcareComment on above:5-50 0.2-1 WEEK 50-500 1-2 WEEKS 100-5,000 2-3 WEEKS 500-10,000 3-4 WEEKS 1,000-50,000 4-5 WEEKS 10,000-100,000 5-6 WEEKS 15,000-200,000 6-8 WEEKS 10,000-100,000 2-3 MONTHS CLINISYNCNOMS HealthcareTB PREG QUANT HCGon 61-15-3740UXL GKFYZPBTSHEC627hFF/mL NOMS HealthcareComment on above:5-50 0.2-1 WEEK 50-500 1-2 WEEKS 100-5,000 2-3 WEEKS 500-10,000 3-4 WEEKS 1,000-50,000 4-5 WEEKS 10,000-100,000 5-6 WEEKS 15,000-200,000 6-8 WEEKS 10,000-100,000 2-3 MONTHS CLINISYNCNOMS HealthcareTB PREG QUANT HCGon 78-89-1420XSJ XMAUKYZCBFBP623vXF/mL NOMS HealthcareComment on above:5-50 0.2-1 WEEK 50-500 1-2 WEEKS 100-5,000 2-3 WEEKS 500-10,000 3-4 WEEKS 1,000-50,000 4-5 WEEKS 10,000-100,000 5-6 WEEKS 15,000-200,000 6-8 WEEKS 10,000-100,000 2-3 [facility] QUANT HCGon 76-13-9605WYI CUOKNUOWHNXN077kZH/mL NOMS HealthcareComment on above:5-50 0.2-1 WEEK 50-500 1-2 WEEKS 100-5,000 2-3 WEEKS 500-10,000 3-4 WEEKS 1,000-50,000 4-5 WEEKS 10,000-100,000 5-6 WEEKS 15,000-200,000 6-8 WEEKS 10,000-100,000 2-3 MONTHS [facility] PREG QUANT HCGon 54-63-3530ZBE RWSRUCDLFKNR69nWL/mL NOMS HealthcareComment on above:5-50 0.2-1 WEEK 50-500 1-2 WEEKS 100-5,000 2-3 WEEKS 500-10,000 3-4 WEEKS 1,000-50,000 4-5 WEEKS 10,000-100,000 5-6 WEEKS 15,000-200,000 6-8 WEEKS 10,000-100,000 2-3 MONTHS [facility] PREG QUANT HCGon 12-27-7506BPF IHVKUAGDKETV8zQZ/mL NOMS HealthcareComment on above:5-50 0.2-1 WEEK 50-500 1-2 WEEKS 100-5,000 2-3 WEEKS 500-10,000 3-4 WEEKS 1,000-50,000 4-5 WEEKS 10,000-100,000 5-6 WEEKS 15,000-200,000 6-8 WEEKS 10,000-100,000 2-3 MONTHS [facility] PROGESTERONEon 13-99-1163TOKRVBNGCQBD43.8 ng/mL.NOMS HealthcareComment on above:Follicular phase 0.1 - 0.9 Luteal phase 1.8 - 23.9 Ovulation phase 0.1 - 12.0 First trimester 11.0 - 44.3 Second trimester 25.4 - 83.3 Third trimester 58.7 - 214.0 Postmenopausal 0.0 - 0.1 Performed at: [address] [id number] Fender Repairer: Jordin Rao PhD, Phone: [phone] [facility] HOSPITALYotpoI-[facility] PROGESTERONEon 78-25-5036MHOJOUXBAJQW97.6 ng/mL.NOMS HealthcareComment on above:Follicular phase 0.1 - 0.9 Luteal phase 1.8 - 23.9 Ovulation phase 0.1 - 12.0 First trimester 11.0 - 44.3 Second trimester 25.4 - 83.3 Third trimester 58.7 - 214.0 Postmenopausal 0.0 - 0.1 Performed at: [address] [id number] Fender Repairer: Jordin Rao PhD, Phone: [phone] [facility] PREG QUANT HCGon 04-95-2872YUD QUANTITATIVE<1mIU/mL NOMS HealthcareComment on above:5-50 0.2-1 WEEK 50-500 1-2 WEEKS 100-5,000 2-3 WEEKS 500-10,000 3-4 WEEKS 1,000-50,000 4-5 WEEKS 10,000-100,000 5-6 WEEKS 15,000-200,000 6-8 WEEKS 10,000-100,000 2-3 [facility] PROGESTERONEon 58-35-4543FQJVPLJRKXHV42.9 ng/mL.NOMS HealthcareComment on above:Follicular phase 0.1 - 0.9 Luteal phase 1.8 - 23.9 Ovulation phase 0.1 - 12.0 First trimester 11.0 - 44.3 Second trimester 25.4 - 83.3 Third trimester 58.7 - 214.0 Postmenopausal 0.0 - 0.1 Performed at: [address] [id number] Fender Repairer: Jordin Rao PhD, Phone: [phone] [facility] HOSPITALMotley Travels and LogisticsBaptist Hospital HEMOGLOBIN A1Con 30-19-6355Coknanj [Mass/Vol]88 mg/dLNOMissouri Baptist Medical CenterVcrmjnoknzDlE7w (Bld) [Mass fraction]4.7 %4.5 - 6.2 %NOMS Healthcare Comment on above:ADA RECOMMENDED LIMIT 4.0 - 6.0 ADA THERAPEUTIC TARGET < 7.0 ACTION SUGGESTED > 7.0 CLINISYNCNOMS HealthcareChoriogonadotropin.beta subunit [Units/volume] in Serum or PlasmaOrdered By: Jack Woods on 03-88-2530TMI.beta subunit Qn4.96 m[IU]/mL [facility] CenterComment on above:Approximate Approximate hCG Gestational Age Range (mIU/ml) (weeks)0.2-1 5-50 1-2 50-500 2-3 100-5,000 3-4 500-10,000 4-5 1,000-50,000 5-6 10,000-100,000 6-8 15,000-200,000 8-12 10,000-100,000HCG,Quantitativeon 32-93-7030YVL,Quantitative4.96 m[iU]/mLNormal [facility] Physician GroupComment on above:Result Comment: Approximate Approximate hCG Gestational Age Range (mIU/ml) (weeks) 0.2-1 5-50 1-2 50-500 2-3 100-5,000 3-4 500-10,000 4-5 1,000-50,000 5-6 10,000-100,000 6-8 15,000-200,000 8-12 10,000-100,000 PERFORMED BY: [place] [address] PATHOLOGIST [employer] TO ANAYA M.D.Performed By: #### HCGQNT #### [place] [address] USAChoriogonadotropin.beta subunit [Units/volume] in Serum or PlasmaOrdered By: Jack Woods on 35-44-5990FES.beta subunit Qn108.32 m[IU]/mL [facility] CenterComment on above:Approximate Approximate hCG Gestational Age Range (mIU/ml) (weeks)0.2-1 5-50 1-2 50-500 2-3 100-5,000 3-4 500-10,000 4-5 1,000-50,000 5-6 10,000-100,000 6-8 15,000-200,000 8-12 10,000-100,000HCG,Quantitativeon 14-50-2987RNZ,Rmkqaxrmdghp760.32 m[iU]/mLNormal [facility] Physician GroupComment on above:Result Comment: Approximate Approximate hCG Gestational Age Range (mIU/ml) (weeks) 0.2-1 5-50 1-2 50-500 2-3 100-5,000 3-4 500-10,000 4-5 1,000-50,000 5-6 10,000-100,000 6-8 15,000-200,000 8-12 10,000-100,000 PERFORMED BY: [place] [id number] PATHOLOGIST [employer] TO ANAYA M.D.Performed By: #### HCGQNT #### [place] [id number] USAChoriogonadotropin.beta subunit [Units/volume] in Serum or PlasmaOrdered By: Jack Woods on 97-97-4228YPY.beta subunit Fh6428.88 m[IU]/mL [facility] CenterComment on above:Approximate Approximate hCG Gestational Age Range (mIU/ml) (weeks)0.2-1 5-50 1-2 50-500 2-3 100-5,000 3-4 500-10,000 4-5 1,000-50,000 5-6 10,000-100,000 6-8 15,000-200,000 8-12 10,000-100,000HCG,Quantitativeon 11-59-4197CYC,Jmztzbaiinbq7344.88 m[iU]/mL NormalThe [facility]atham Physician GroupComment on above:Result Comment: Approximate Approximate hCG Gestational Age Range (mIU/ml) (weeks) 0.2-1 5-50 1-2 50-500 2-3 100-5,000 3-4 500-10,000 4-5 1,000-50,000 5-6 10,000-100,000 6-8 15,000-200,000 8-12 10,000-100,000 PERFORMED BY: [place] [id number] PATHOLOGIST ELECT[employer] ENG[employer] TO ANAYA M.D.Performed By: #### HCGQNT #### [address] [address] USAChoriogonadotropin.beta subunit [Units/volume] in Serum or PlasmaOrdered By: Jack Woods on 17-57-5247YPS.beta subunit Qn988.06 m[IU]/mL [facility] CenterComment on above:Approximate Approximate hCG Gestational Age Range (mIU/ml) (weeks)0.2-1 5-50 1-2 50-500 2-3 100-5,000 3-4 500-10,000 4-5 1,000-50,000 5-6 10,000-100,000 6-8 15,000-200,000 8-12 10,000-100,000HCG,Quantitativeon 91-06-2140YJR,Mlowbfhshwqw509.06 m[iU]/mLNormal [facility] Physician GroupComment on above:Result Comment: Approximate Approximate hCG Gestational Age Range (mIU/ml) (weeks) 0.2-1 5-50 1-2 50-500 2-3 100-5,000 3-4 500-10,000 4-5 1,000-50,000 5-6 10,000-100,000 6-8 15,000-200,000 8-12 10,000-100,000 PERFORMED BY: [address] [address] PATHOLOGIST [employer]LECT[employer] ENGINE[employer] TO ANAYA M.D.Performed By: #### HCGQNT #### [address] [address] USAUS OB transvaginalon 10-99-4468KT OB transvaginalHOLZER HEALTH SYSTEM Main [address] [address] Ultrasound Report Signed Patient: Daphney Al MR#: [id number] : 2000 Acct:[id number] Age/Sex: 23 / F ADM Date: 12/20/23 Loc: Room: Type: REG CLI Attending Dr: Jack Peggy DO Ordering Provider: Jack Woods Date of Service: 12/20/23 US/US OB <= 14 weeks fetus: N92.6 ([id number]) US/US OB transvaginal: N92.6 Copies to: Jack [...] Lisa Rojas M.D.12/20/2023 5:46 PM Dictation Location: [place] [address] Tech: Deb Farhan Transcribed By: FLETCHER 12/20/23 174 Dictated By: Lisa Rojas MD 12/20/23 173 Signed By: 12/20/23 1746NoFirstHealth Montgomery [facility] Hospital Physician GroupChoriogonadotropin.beta subunit [Units/volume] in Serum or PlasmaOrdered By: Jack Woods on 01-15-3768VXL.beta subunit Qn295.86 m[IU]/mLOhiohealth Nelsonville Health CenterComment on above: Approximate Approximate hCG Gestational Age Range (mIU/ml) (weeks)0.2-1 5-50 1-2 50-500 2-3 100-5,000 3-4 500-10,000 4-5 1,000-50,000 5-6 10,000-100,000 6-8 15,000-200,000 8-12 10,000-100,000HCG,Quantitativeon 53-19-2500OUZ,Quantitative 295.86 m[iU]/mLNCentral Harnett Hospital Physician GroupComment on above:Result Comment: Approximate Approximate hCG Gestational Age Range (mIU/ml) (weeks) 0.2-1 5-50 1-2 50-500 2-3 100-5,000 3-4 500-10,000 4-5 1,000-50,000 5-6 10,000-100,000 6-8 15,000-200,000 8-12 10,000-100,000 PERFORMED BY: [place] [address] PATHOLOGIST E[employer] TO ANAYA M.D.Performed By: #### HCGQNT #### [place] [address] USAChoriogonadotropin.beta subunit [Units/volume] in Serum or PlasmaOrdered By: Jack Woods on 09-30-1612CMO.beta subunit Qn135.80 m[IU]/mL [facility] CenterComment on above:Approximate Approximate hCG Gestational Age Range (mIU/ml) (weeks)0.2-1 5-50 1-2 50-500 2-3 100-5,000 3-4 500-10,000 4-5 1,000-50,000 5-6 10,000-100,000 6-8 15,000-200,000 8-12 10,000-100,000HCG,Quantitativeon 05-83-5610SBX,Pillsrkggvpm819.80 m[iU]/mLNormal The [facility] Physician GroupComment on above:Result Comment: Approximate Approximate hCG Gestational Age Range (mIU/ml) (weeks) 0.2-1 5-50 1-2 50-500 2-3 100-5,000 3-4 500-10,000 4-5 1,000-50,000 5-6 10,000-100,000 6-8 15,000-200,000 8-12 10,000-100,000 PERFORMED BY: [place] [address] PATHOLOGIST [employer]LECT[employer] ENG[employer] TO ANAYA M.D.Performed By: #### HCGQNT #### [place] [address] USAChoriogonadotropin.beta subunit [Units/volume] in Serum or PlasmaOrdered By: ANT Reardon on 66-89-8982KAS.beta subunit Qn69.85 m[IU]/mLOhiohealth Nelsonville Health CenterComment on above:Approximate Approximate hCG Gestational Age Range (mIU/ml) (weeks)0.2-1 5-50 1-2 50-500 2-3 100-5,000 3-4 500-10,000 4-5 1,000-50,000 5-6 10,000-100,000 6-8 15,000-200,000 8-12 10,000-100,000HCG,Quantitativeon 89-57-5936XYO,Azgotvtxtcln29.85 m[iU]/mL NormalThe [facility] Physician GroupComment on above:Result Comment: Approximate Approximate hCG Gestational Age Range (mIU/ml) (weeks) 0.2-1 5-50 1-2 50-500 2-3 100-5,000 3-4 500-10,000 4-5 1,000-50,000 5-6 10,000-100,000 6-8 15,000-200,000 8-12 10,000-100,000 PERFORMED BY: [place] [address] PATHOLOGIST ELECT[employer] ENGINEERS TO ANAYA M.D.Performed By: #### HCGQNT #### [place] [address] USAProgesteroneon 55-66-4023Dbwkdqtetmod14.5 ng/mLNormal.The [facility] Physician GroupComment on above:Result Comment: Follicular phase 0.1 - 0.9 Luteal phase 1.8 - 23.9 Ovulation phase 0.1 - 12.0 First trimester 11.0 - 44.3 Second trimester 25.4 - 83.3 Third trimester 58.7 - 214.0 Postmenopausal 0.0 - 0.1 Performed at: [employer] [place] [address] [place], [place] [id number] Fender Repairer: Jordin Rao PhD, Phone: [phone] PERFORMED BY: [place] [address] PATHOLOGIST ELECT[employer] ENGINEERS TO ANAYA M.D.Performed By: #### PROG #### [facility] ,Serum or plasma progesterone measurement (mass/volume)Ordered By: Jack Woods on 78-01-9294S[place] [Mass/Vol]26.5 ng/mL.[facility] Comment on above:Follicular phase 0.1 - 0.9 Luteal phase 1.8 - 23.9 Ovulation phase 0.1 - 12.0 First trimester 11.0 - 44.3 Second trimester 25.4 - 83.3 Third trimester 58.7 - 214.0 Postmenopausal 0.0 - 0.1Performed at: VariableV[facility] Voor[facility]esKxupqs[address] [place], [place] [id number] Director: Jordin Muhammad, Phone: [phone].beta subunit [Units/volume] in Serum or PlasmaOrdered By: ANT Reardon on 49-52-8114AIR.beta subunit Qn12.64 m[IU]/mLOhiohealth Nelsonville Health CenterComment on above:Approximate Approximate hCG Gestational Age Range (mIU/ml) (weeks)0.2-1 5-50 1-2 50-500 2-3 100-5,000 3-4 500-10,000 4-5 1,000-50,000 5-6 10,000-100,000 6-8 15,000-200,000 8-12 10,000-100,000HCG,Quantitativeon 81-92-1381YND,Laelrrygcuya09.64 m[iU]/mL NormalThe [facility] Physician GroupComment on above:Result Comment: Approximate Approximate hCG Gestational Age Range (mIU/ml) (weeks) 0.2-1 5-50 1-2 50-500 2-3 100-5,000 3-4 500-10,000 4-5 1,000-50,000 5-6 10,000-100,000 6-8 15,000-200,000 8-12 10,000-100,000 PERFORMED BY: [facility] [address] [place] [address] PATHOLOGIST ELECT[employer] ENGINEERS TO ANAYA M.D.Performed By: #### HCGQNT #### [facility] [address] [place] [address] USAOperative Reporton 22-10-7112Evdvxnweu Report [id number]#1.00TIFFJoint Township District Memorial HospitalQuick Strepon 03-21-2023S. pyogenes Org specific cx Ql (Throat)Negative [facility] [employer] Other [facility] [employer] Other [facility] Auto Differentialon 59-76-1902Pywnuqfax (Bld) [#/Vol]0.00 10*3/[employer] [facility], KYBasophils/100 WBC (Bld)0 %0 - 2 %[employer] [facility], KYDifferential TypeYESMDunlap Memorial Hospital [place], KYEosinophils (Bld) [#/Vol] 0.20 10*3/uLMerMercateo [facility] [place], [place]YEosinophils/100 WBC (Bld)2 %0 - 5 %[facility]- [place], KYErythrocyte distribution width (RBC) [Ratio]12.6 %12.1 - 15.2 %[facility]- [place], USHAHematocrit (Bld) [Volume fraction]39.8 %36 - 46 %[facility]- [place], USHAHemoglobin (Bld) [Mass/Vol]13.8 g/dL12 - 16 g/dLMetrohealth Parma Medical Center- [place], [place]HA Interpretation and review of laboratory resultsAbnormalMetrohealth [facility]- [place], [place] Lymphocytes (Bld) [#/Vol]1.70 10*3/uLMetrohealth Parma Medical Center- [place], KYLymphocytes/100 WBC (Bld)14 %Low15 - 40 %[facility]- [place], USHAMCH (RBC) [Entitic mass]31.5 pg26 - 34 pgMetrohealth Parma Medical Center- [place], USHAMCHC (RBC) [Mass/Vol]34.6 g/dL31 - 37 g/dLMetrohealth Parma Medical Center- [place], USHAMCV (RBC) [Entitic vol]91.2 fL80 - 100 fLMetrohealth Parma Medical Center- [place], [place]Monocytes (Bld) [#/Vol]0.60 10*3/[facility]- [place], USHAMonocytes/100 WBC (Bld)5 %4 - 8 % [facility]- [place], USHAPlatelet mean volume (Bld) [Entitic vol]NOT REPORTED6 - 12 fLMetrohealth Parma Medical Center- [place], KYPlatelets (Bld) [#/Vol]NOT REPORTEDMet[facility]health [facility]- [place], USHA Platelets (Bld) [#/Vol]287 10*3/[facility]- [place], KYRBC (Bld) [#/Vol]4.37 10*6/uL4 - 5.2 m/[facility]- [place], KYRBC morphology finding Nom (Bld)NOT REPORTEDMet[facility]health [facility]- [place], KYSegmented neutrophils/100 WBC (Bld)79 %High47 - 75 % [facility]- [place], KYSegs Absolute9.50HighMetrohealth [facility]- [place], KYWBC (Bld) [#/Vol] 12.0 10*3/[facility]- [place], KYWBC (Bld) [#/Vol]NOT REPORTEDper 100 WBCMetrohealth Parma Medical Center- [place], KYWBC MorphologyNOT REPORTEDUniversity Hospitals [facility], K[facility]ITALC with Diffon [id number]. Basophil0.00 k/uLNormal0.0-0.2MMercy Health [facility] on above:Performed By: #### CP, CDP #### [facility] [address] [id number] Fender Repairer: José Higgins.Neutrophil (Seg)9.50 k/uLHigh2.5-7.0[place] [facility] on above:Performed By: #### CP, CDP #### [facility] [address] [id number] Fender Repairer: Maya Higgins Diff PerformedYESNormCleveland Clinic Lutheran Hospital on above:Performed By: #### CP, CDP #### [facility] [address] [id number] Fender Repairer: Jonathan Chisholm MDBasophils/100 WBC (Bld)0 %Normal0-2MParma Community General HospitalComment on above:Performed By: #### CP, CDP #### [facility] [address] [id number] Fender Repairer: Jonathan Chisholm MDEosinophils (Bld) [#/Vol]0.20 10*3/uLNormal 0.0-0.4[facility] on above:Performed By: #### CP, CDP #### [facility] [address] [place], [place] [id number] Fender Repairer: CHRISTINE Higginsosinophils/100 WBC (Bld)2 %Normal0-5[facility] on above:Performed By: #### CP, CDP #### [facility] [address] [place] [address] Fender Repairer: Jonathan Chisholm MDErythrocyte distribution width (RBC) [Ratio]12.6 %Gkkrti82.1-15.2MParma Community General HospitalComment on above:Performed By: #### CP, CDP #### [facility] [address] [id number] Fender Repairer: Jonathan Chisholm MDHematocrit (Bld) [Volume fraction]39.8 %Normal 36-46[facility] HospitalComment on above:Performed By: #### CP, CDP #### [facility] [address] [phone] Fender Repairer: Jonathan Chisholm MDHemoglobin (Bld) [Mass/Vol]13.8 g/dLNormal 12.0-16.0Prom[facility] Regional HospitalComment on above:Performed By: #### CP, CDP #### [facility] [address] [id number] Fender Repairer: Jonathan Chisholm MDLymphocytes (Bld) [#/Vol]1.70 10*3/uLNormal 1.2-5.2MHolmes County Joel Pomerene [facility] Hospital HospitalComment on above:Performed By: #### CP, CDP #### [facility] [address] [id number] Fender Repairer: Jamie Higginsmphocytes/100 WBC (Bld)14 %Dyl66-13VffudPromedica Defiance Regional HospitalComment on above:Performed By: #### CP, CDP #### [facility] [address] [phone] Fender Repairer: MEETA HigginsCH (RBC) [Entitic mass]31.5 loCkyvbq45-39Xzjyj Willard HospitalComment on above:Performed By: #### CP, CDP #### [facility] [address] [phone] Fender Repairer: AWA HigginsC (RBC) [Mass/Vol]34.6 g/vJKsgpul59-03Dpziq Willard HospitalComment on above:Performed By: #### CP, CDP #### [facility] [address] [place], [place] [phone] (541) Fender Repairer: MEETA HigginsCV (RBC) [Entitic vol]91.2 aWHsjytb94-190EadguPromedica Defiance Regional HospitalComment on above:Performed By: #### CP, CDP #### [facility] [address], [place] [phone] (033) Fender Repairer: MEETA Higginsonocytes (Bld) [#/Vol]0.60 10*3/uLNormal0.0-1.0 [facility] HospitalComhenry [facility] on above:Performed By: #### CP, CDP #### [facility] [address] [place], [place] [phone] (514) Fender Repairer: MEETA Higginsonocytes/100 WBC (Bld)5 %Normal4-8Prom[facility]iance Regional HospitalComment on above:Performed By: #### CP, CDP #### [facility] [address] [place] [address] Fender Repairer: Zachary Higginsophil (Seg)79 %Xfgw74-25OlhizPromedica Defiance Regional HospitalComment on above:Performed By: #### CP, CDP #### [facility] [address] [place], [place] [phone] (749) Fender Repairer: Ynes Higginstebrain (Bld) [#/Vol]287 10*3/gSJycgyc418-461 [facility] HospitalComhenry ford [facility] on above:Performed By: #### CP, CDP #### [facility] [address] [place] [address] Fender Repairer: SONJA HigginsBC (Bld) [#/Vol]4.37 10*6/uLNormal4.0-5.2MParma Community General HospitalComment on above:Performed By: #### CP, CDP #### [facility] [address] [place], [place] [id number] Fender Repairer: REED HigginsBC (Bld) [#/Vol]12.0 10*3/uLNormal4.5-13.5[facility] Regional HospitalComment on above:Performed By: #### CP, CDP #### [facility] [address] [place], [place] [phone] Fender Repairer: José Higgins.Imm.GranulocyteNOT REPORTEDNormal0.00-0.30 [facility] Regional HospitalComment on above:Performed By: #### CP, CDP #### [facility] [address] [place] [address] Fender Repairer: Jonathan Chisholm MDImmature granulocytes (Bld) [#/Vol]NOT REPORTED Mvobhb7TawggMcCullough-Hyde Memorial Hospitalment on above:Performed By: #### CP, CDP #### [facility] [address] [phone] Fender Repairer: NAHID Higgins AutomatedNOT REPORTEDNormalPromedica Defiance Regional HospitalComment on above:Performed By: #### CP, CDP #### [facility] [address] [phone] Fender Repairer: Ynes Higginsteserena mean volume (Bld) [Entitic vol]NOT REPORTEDNormal6.0-12.0[facility] Regional HospitalComment on above:Performed By: #### CP, CDP #### [facility] [address] [place] [address] Fender Repairer: Ynes Higginstelets (Bld) [#/Vol]NOT REPORTEDNormalMcCullough-Hyde Memorial Hospitalment on above:Performed By: #### CP, CDP #### [facility] [address] [place], [place] [phone] Fender Repairer: COURT Higgins morphology finding Nom (Bld)NOT REPORTED NormalMercy Mount Horeb HospitalComment on above:Performed By: #### CP, CDP #### [facility] [address] [place] [address] Fender Repairer: REED Higgins MorphologyNOT REPORTEDNormalPromedica Defiance Regional HospitalComment on above:Performed By: #### CP, CDP #### [facility] [address] [place] [address] Fender Repairer: HODAN Higginsmoab regional hospital Metabolic Profon 02-01-2019(cont.)Normal [facility] HospitalComhenry [facility] on above:Result Comment: Average GFR for 20-29 years old: 116 mL/min/1.73sq m Chronic Kidney Disease: <60 mL/min/1.73sq m Kidney failure: <15 mL/min/1.73sq m eGFR calculated using average adult body mass. Additional eGFR calculator available at: http://www.[employer]BTC.sx/multiple_crcl_2011.htmPerformed By: #### CP, CDP #### [facility] [address] [place] [address] Fender Repairer: Jonathan Chisholm MDAlbumin [Mass/Vol]4.1 g/dLNormal3.5-5.2Meast [facility] hospitaly [facility] Hospital Of MeridianComment on above:Performed By: #### CP, CDP #### [facility] [address] [place] [address] Fender Repairer: Hector Higginsline Phos63 U/CRigefh00-496YjknuPromedica Defiance Regional HospitalComment on above:Performed By: #### CP, CDP #### [facility] [address] [place] [address] Fender Repairer: Jonathan Chisholm MDALT [Catalytic activity/Vol]8 U/LNormal5-33[facility] on above:Performed By: #### CP, CDP #### [facility] [address] [place] [address] Fender Repairer: Jonathan Chisholm MDAnion gap [Moles/Vol]12 mmol/LNormal9-17[facility] Regional HospitalComment on above:Performed By: #### CP, CDP #### [facility] [address] [place], [place] [phone] Fender Repairer: Jonathan Chisholm MDAST [Catalytic activity/Vol]13 U/LNormal<32[facility] Regional HospitalComment on above:Performed By: #### CP, CDP #### [facility] [address] [phone] Fender Repairer: Jonathan Chisholm MDBilirubin Ql (U)0.40 mg/dLNormal0.30-1.20[facility] HospitalComment on above:Performed By: #### CP, CDP #### [facility] [address] [address] Fender Repairer: Jonathan Chisholm MDBUN/CRE Irvva90Rybxir2-95Ngreb [facility] Comment on above:Performed By: #### CP, CDP #### [facility] [address] [address] Fender Repairer: Jonathan Chisholm MDCalcium [Mass/Vol]9.1 mg/dLNormal8.6-10.4[facility] Regional HospitalComment on above:Performed By: #### CP, CDP #### [facility] [address] [address] Fender Repairer: Jonathan Chisholm, MDChloride [Moles/Vol]103 mmol/YVgghcu97-045CtvcoPromedica Defiance Regional HospitalComment on above:Performed By: #### CP, CDP #### [facility] [address] [place], [place] [phone] Fender Repairer: Jonathan Chisholm, MDCO2 [Moles/Vol]24 mmol/MAepqwa55-05UmbhgPromedica Defiance Regional HospitalComment on above:Performed By: #### CP, CDP #### [facility] [address] [place], [place] [phone] Fender Repairer: HODAN Higginsreatinine [Mass/Vol]0.61 mg/dLNormal0.50-0.90 [facility] Regional HospitalComment on above:Performed By: #### CP, CDP #### [facility] [address] [address] Fender Repairer: Jonathan Chisholm MDGFR, Amer>60Normal>60[facility]oreb HospitalComment on above:Performed By: #### CP, CDP #### [facility] [address] [place] [address] Fender Repairer: Jonathan Chisholm MDGFR,non Amer>60Normal>60[facility]oreb HospitalComment on above:Performed By: #### CP, CDP #### [facility] [address] [address] Fender Repairer: Jonathan Chisholm MDGlucose [Mass/Vol]94 mg/wKYebpgb20-41Drqki Willard HospitalComment on above:Performed By: #### CP, CDP #### [facility] [address] [address] Fender Repairer: GAGE Higginsotassium [Moles/Vol]3.8 mmol/LNormal3.7-5.3Meast liver[facility] city hospitaly [facility]oreb HospitalComment on above:Performed By: #### CP, CDP #### [facility] [address] [place] [address] Fender Repairer: Jonathan Chisholm MDProtein [Mass/Vol]7.1 g/dLNormal6.4-8.3[facility]oreb HospitalComment on above:Performed By: #### CP, CDP #### [facility] [address] [place], [place] [phone] Fender Repairer: Jonathan Chisholm MDSodium [Moles/Vol]139 mmol/EKfgluf101-603NztitPromedica Defiance Regional HospitalComment on above:Performed By: #### CP, CDP #### [facility] [address] [place] [address] Fender Repairer: Jonathan Chisholm MDUrea nitrogen [Mass/Vol]8 mg/dLNormal6-20[facility] HospitalComment on above:Performed By: #### CP, CDP #### [facility] [address] [place] [address] Fender Repairer: Jonathan Chisholm MDAlbumin/Globulin [Mass ratio]NOT REPORTEDNormal 1.0-2.5[facility] HospitalComment on above:Performed By: #### CP, CDP #### [facility] [address] [place] [address] Fender Repairer: KARLENE Higginstaging:NOT REPORTEDNormalPromedica Defiance Regional Hospital Comment on above:Performed By: #### CP, CDP #### [facility] [address] [place] [address] Fender Repairer: Jonathan Chisholm [facility] HOLDENVILLEomprehensive Metabolic Panelon [id number] [Mass/Vol]4.1 g/dL3.5 - 5.2 g/dLMetrohealth Parma Medical Center- [place], KYAlbumin/Globulin [Mass ratio]NOT REPORTEDMetrohealth Par[facility]- [place], KYALP [Catalytic activity/Vol]63 U/L35 - 104 U/LMercy Health- [place], KYALT [Catalytic activity/Vol]8 U/L5 - 33 U/LMercy Health- [place], KYAnion gap [Moles/Vol]12 mmol/L9 - 17 mmol/LMercy Health- [place], KYAST [Catalytic activity/Vol]13 U/L<32[facility]- [place], KYBilirubin Ql (U)0.40 mg/dL 0.3 - 1.2 mg/dLMer Health- [place], KYBun/Cre Nwpbi30[facility]- [place], KYCalcium [Mass/Vol]9.1 mg/dL8.6 - 10.4 mg/dLMercy Health- [place], KYChloride [Moles/Vol]103 mmol/L98 - 107 mmol/[facility], KYCO2 [Moles/Vol]24 mmol/L20 - 31 mmol/L [facility], KYCreatinine [Mass/Vol]0.61 mg/dL0.5 - 0.9 mg/dLUniversity [facility]als [facility], KYGFR >60>60 mL/minUniversity Hospitals Samar[facility], KYGFR Non->60>60 mL/minUniversity Hospitals Samar[facility], KYGFR/1.73 sq M predicted among non- blacks MDRD (S/P/Bld) [Vol rate/Area]NOT REPORTEDUniversity Hospitals [facility], KYGFR/1.73 sq M predicted among non-blacks MDRD (S/P/Bld) [Vol rate/Area][facility], [place] Comment on above:Average GFR for 20-29 years old: 116 mL/min/1.73sq m Chronic Kidney Disease: <60 mL/min/1.73sq m Kidney failure: <15 mL/min/1.73sq m eGFR calculated using average adult body mass. Additional eGFR calculator available at: http://www.[employer]/multiple_crcl_2011.htm Glucose [Mass/Vol]94 mg/dL70 - 99 mg/dLUniversity Hospitals [facility], KYPotassium [Moles/Vol] 3.8 mmol/L3.7 - 5.3 mmol/[facility], KYProtein [Mass/Vol]7.1 g/dL6.4 - 8.3 g/dLUniversity Hospitals [facility], KYSodium [Moles/Vol]139 mmol/L135 - 144 mmol/[facility], KYUrea nitrogen [Mass/Vol]8 mg/dL6 - 20 mg/dLUniversity [facility]als [facility], [place] HCG, ,Urineon [id number] HCG ( test) Ql (U)NegativeNormal NEGPromedica Defiance Regional HospitalComment on above:Performed By: #### [facility], UA #### [facility] [address] [place] [address] Fender Repairer: Jonathan Phan, MDMicroscopic Urinalysison [id number], UA NOT REPORTEDNoneMercy Health- [place], KYBacteria, UA3+AbnormalNoneMercy [...] (Bld) [#/Vol]NOT REPORTEDMercy Health- [place], KYPregnancy, Urineon [id number] HCG ( test) Ql (U)NegativeNEGATIVEMercy Health- [place], KYUrinalysison [id number] UrineNegativeNEGATIVEMercy Health- [place], [place] Color, UAYELLOWYELLOWMercy Health- [place], KYGlucose, UrNegativeNEGATIVEMercy Health- [place], KYInterpretation and review of laboratory resultsAbnormalMercy Health- [place], KYKetones Ql (U)TRACEAbnormalNEGATIVEMercy Health- [place], KYLeukocyte esterase Test strip Ql (U)NegativeNEGATIVEMercy Health- [place], KYNitrite, Urine NegativeNEGATIVEMercy Health- [place], KYpH, UA6.0[facility]- [place], KYProtein (U) [Mass/Vol]1+AbnormalNEGATIVEMercy Health- [place], KYSpecific [place], UA1.020[facility]- [place], KYTurbidity UACLEARCLEARMercy Health- [place], KYUrinalysis CommentsMercy Health- [place], KYUrine Hgb3+AbnormalNEGATIVEMercy Health- [place], KYUrobilinogen, UrineNormalNormWooster Community Hospital, KYUrinalysis, Routineon [id number] Acid,UrTRACEAbnormalNEGPromedica Defiance Regional HospitalComhenry [facility] on above:Performed By: #### [facility], UA #### [facility] [address] [place] [address] Fender Repairer: Jonathan Chisholm MDBilirubin, SemiQt,UrNegativeNormalNEGPromedica Defiance Regional HospitalComment on above:Performed By: #### [facility], UA #### [facility] [address] [place] [address] Fender Repairer: HODAN Higginsolor (U)YELLOWNoJoint Township District Memorial Hospital Comment on above:Performed By: #### [facility], UA #### [facility] [address] [place] [address] Fender Repairer: HODAN HigginsommentNoHocking Valley Community HospitalComhenry [facility] on above:Performed By: #### [facility], UA #### [facility] [address] [place] [address] Fender Repairer: Jonathan Chisholm MDGlucose Ql (U)NegativeNormalBlanchard Valley Health System [facility] on above:Performed By: #### [facility], UA #### [facility] [address] [place] [address] Fender Repairer: Jonathan Chisholm MDHemoglobin, Ur3+AbnormalNationwide Children's Hospital Comment on above:Performed By: #### [facility], UA #### [facility] [address] [place] [address] Fender Repairer: Jonathan Chisholm MDLeukocyte esterase Test strip Ql (U)Negative NormalNEGPromedica Defiance Regional HospitalComhenry [facility] on above:Performed By: #### [facility], UA #### [facility] [address] [place] [address] Fender Repairer: Elizabeth Higgins,UrNegativeNormSt. John of God Hospital Comment on above:Performed By: #### [facility], UA #### [facility] [address] [place] [address] Fender Repairer: Gage Higgins (U)6.0 [pH]Normal5.0-8.0[facility] Comment on above:Performed By: #### [facility], UA #### [facility] [address] [place] [address] Fender Repairer: GAGE Higginscommunity medical center Ql (U)1+AbnormalNationwide Children's Hospital Comment on above:Performed By: #### [facility], UA #### [facility] [address] [place] [address] Fender Repairer: KARLENE Higginspecific gravity (U) [Rel density]1.020Normal 1.005-1.030Prom[facility] Regional HospitalComment on above:Performed By: #### [facility], UA #### [facility] [address] [place] [address] Fender Repairer: ALFREDO HigginsurbidityCLEARNoalCThe [facility] System Comment on above:Performed By: #### [facility], UA #### [facility] [address] [place] [address] Fender Repairer: Yrn HigginsUrNormalNormalTrumbull Memorial HospitalComment on above:Performed By: #### [facility], UA #### [facility] [address] [place] [address] Fender Repairer: Jonathan Chisholm MDUrinalysis,Microon 02-01-2019-----NormalMercy Mount Horeb HospitalComment on above:Performed By: #### [facility], UA #### [facility] [address] [place] [address] Fender Repairer: Jonathan Chisholm MDBacteria LM.HPF (Urine sed) [#/Area]3+Abnormal NONEMerTriHealth HospitalComment on above:Performed By: #### [facility], UA #### [facility] [address] [place] [address] Fender Repairer: Jonathan Chisholm MDEpithelial cells LM.HPF (Urine sed) [#/Area]20 TO 50NormalPaulding County Hospital HospitalComment on above:Performed By: #### [facility], UA #### [facility] [address] [place] [address] Fender Repairer: MEETA Higginsucus Strands2+AbnormalNONEMeOhioHealth Arthur [facility] Comment on above:Performed By: #### [facility] [place] #### [facility] [address] [place] [address] Fender Repairer: SONJA HigginsBC (U) [#/Vol]2 TO 0Mczcya6-5Qufme [facility] Hospital Of MeridianComment on above:Performed By: #### [facility], UA #### [facility] [address] [place] [address] Fender Repairer: Jonathan Chisholm MDWBC (U) [#/Vol]2 TO 6Abfpcm9Obipg [facility] Of MeridianComment on above:Performed By: #### [facility], UA #### [facility] [address] [place] [address] Fender Repairer: Jonathan Chisholm MDAmorphous sediment LM Ql (Urine sed)NOT REPORTED NormalNONEMeMarietta Osteopathic Clinic HospitalComment on above:Performed By: #### [facility]INH [facility], UA #### [facility] [address] [place] [address] Fender Repairer: HODAN Higginsasts LM.LPF (Urine sed) [#/Area]NOT REPORTED NormalMercy Mount Horeb HospitalComment on above:Performed By: #### [facility], UA #### [facility] [address] [place] [address] Fender Repairer: HODAN Higginsrystals LM Nom (Urine sed)NOT REPORTEDNormalNONE [facility] HospitalComment on above:Performed By: #### [facility], UA #### [facility] [address] [place] [address] Fender Repairer: Jonathan Chisholm MDEpithelial, RenalNOT HVDGRNCTNwuyst0Ycyjy Willard HospitalComment on above:Performed By: #### [facility], UA #### [facility] [address] [place] [address] Fender Repairer: Jonathan Chisholm MDOther ObservationsNOT REPORTEDNormalNREQPaulding County Hospital HospitalComment on above:Performed By: #### [facility], UA #### [facility] [address] [place] [address] Fender Repairer: Jonathan Chisholm MDTrichomonasNOT REPORTEDNormalNONEMercOhio State East Hospital HospitalComment on above:Performed By: #### UMICANeville [facility], UA #### [facility] [address] [place] [address] Fender Repairer: Jonathan Chisholm MDYeast LM Ql (Urine sed)NOT REPORTEDNormalNONE [facility] HospitalComment on above:Performed By: #### [facility]INH [facility], UA #### [facility] [address] [place] [address] Fender Repairer: Jonathan Chisholm MD Vital Signs Date TimeVital SignValuePerforming AxniwmaeuYuvpmdhb32-10-9848 14:49-0400Body mass index (BMI) [Ratio]30.55 kg/n0XcjjnxseHazel Romero 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 Phone: [phone] [place], [place] [address]Dwuagwlchj23-40-6459 14:49-0400Body zmcuah44.84 kgKrdayton Romero 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 Phone: [phone])[facility] [place], [place] [address]Bxaxywqyzj17-00-7577 14:49-0400Diastolic blood pwoitdad70 mm[Hg]Hazeldayton Romero 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 Phone: 1(675)[facility] [place], [place] [address]Wvqpeiwxgu83-96-3144 14:49-0400Systolic blood qjpkirvc812 mm[Hg]Hazeldayton Romero 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 Phone: 1([phone])[facility] [place], [place] [address]Xhnwcrbpll23-74-5281 14:14-0400Body mass index (BMI) [Ratio]30.67 kg/t8Hwbft Peggy DO Work Phone: [phone])[facility] [place], [place] [address]Nkmliehsxz66-41-4330 14:14-0400Body ilnaqw24.18 kgCorey Peggy DO Work Phone: [phone])[facility] [place], [place] [address]Mfbpzwdzdt58-37-6310 14:14-0400Diastolic blood lzqmffju70 mm[Hg]Jack Peggy DO Work Phone: 1(859)[facility] [place], [place] [address]Kqgiszywup75-26-4115 14:14-0400Systolic blood mm[Hg]Jack Peggy DO Work Phone: [phone])[facility] [place], [place] [address]Phjfqdkngi83-46-2165 09:59-0400Body mass index (BMI) [Ratio]30.18 kg/o5AojjxokbHazel Romero 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 Phone: 1(289)[facility] [place], [place] [address]Htrzvdaoyu94-61-9225 09:59-0400Body rrhitd92.82 kgKrvenancioa Heather 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 Phone: 1([phone])[facility] [place], [place] [address]Dzoaawncix84-57-1338 09:59-0400Diastolic blood skullkdy71 mm[Hg]Hazel Romero 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 Phone: [facility] CenterBgjxzjcpvm94-44-4776 09:59-0400Systolic blood vbqxwihl956 mm[Hg]Hazel Romero 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 Phone: [phone])256-[address] [place], [place] [address]Otnoqzovss14-93-8477 08:54-0400Body mass index (BMI) [Ratio]30.22 kg/m2Jayla DA SILVA Work Phone: 1(627)777-[address] [place], [place] [address]Zwnetyfbbb96-92-3178 08:54-0400Body hkjurk27.94 kgAmy Cali DA SILVA Work Phone: [place] [address]Ymtnbfsxqk22-47-7010 08:54-0400Diastolic blood mm[Hg]Jayla DA SILVA Work Phone: [phone])929-[address] [place], [place] [address]Avnrqmsgek81-80-9361 08:54-0400Systolic blood ygaihlje732 mm[Hg]Jayla DA SILVA Work Phone: [phone])[address] [place], [place] [address]Cyrkckjuru81-99-1633 09:38-0400Body mass index (BMI) [Ratio]29.67 kg/c8Eeoii Peggy DO Work Phone: 1(253)363-[address] [place], [place] [address]Nchtmiamgv38-87-7443 09:38-0400Body pnylya25.37 kgCorey Peggy DO Work Phone: [phone])666-[address] [place], [place] [address]Zgcxnavwlm79-32-5112 09:38-0400Diastolic blood hqmujacy15 mm[Hg]Jack Peggy DO Work Phone: 1(609)645-[address] [place], [place] [address]Ynbmutduky93-76-7707 09:38-0400Systolic blood mqdeaekw721 mm[Hg]Jack Peggy DO Work Phone: 1(589)923-[address] [place], [place] [address]Kwwmpyqyce62-79-6947 14:30-0400Body mass index (BMI) [Ratio]29.83 kg/p3Hvhpb Peggy DO Work Phone: 1([phone])293-[address] [place] [address]-19-2025 14:30-0400Body zaincq04.83 kgCorey Peggy DO Work Phone: [facility] CenterOlvuhajlfk94-56-5762 14:30-0400Diastolic blood stsibbvi02 mm[Hg]Jack Peggy DO Work Phone: [facility] CenterUhbwxbwgmf22-99-9354 14:30-0400Systolic blood bejctgwk829 mm[Hg]Jack Peggy DO Work Phone: [facility] CenterMcsakszmdx47-25-7480 13:26-0400Body mass index (BMI) [Ratio]28.29 kg/m2Jayla DA SILVA Work Phone: [facility] CenterFmfyzznvmy89-79-3041 13:26-0400Body aoilxw92.49 kgJayla DA SILVA Work Phone: [facility] CenterPjexpfnyjv02-20-2820 13:26-0400Diastolic blood qgryrxdj43 mm[Hg]Jayla DA SILVA Work Phone: [facility] CenterUaynmmwbqm83-50-2669 13:26-0400Systolic blood xlmvivit535 mm[Hg]aJyla DA SILVA Work Phone: [facility] CenterDnluqnnjab19-77-5672 08:47-0400Body ezfdzm955.6 cmGuadalupe Peres MD Work Phone: [phone] [place], [place] 9322507-01-2025 08:47-0400Body mass index (BMI) [Ratio]27.48 kg/m2Guadalupe Peres MD Work Phone: [phone])[address] [place], [place] 9322507-01-2025 08:47-0400Body zvriqa04.2 kgGuadalupe Peres MD Work Phone: [phone] [place], [place] 9322507-01-2025 08:47-0400Diastolic blood uxdxbkcp69 mm[Hg]Guadalupe Peres MD Work Phone: [phone] [place], [place] 9322507-01-2025 08:47-0400Heart rate 90 /Zahra Peres MD Work Phone: [phone] [place], [place] 9322507-01-2025 08:47-0400Systolic blood pklxqflu690 mm[Hg]Guadalupe Peres MD Work Phone: [phone] [place], [place] 9322506-24-2025 14:10-0400Body mass index (BMI) [Ratio]27.02 kg/e3Pclwu Peggy DO Work Phone: 1(783)[address] [place], [place] 9556706-24-2025 14:10-0400Body .93 kgCorey Peggy DO Work Phone: 1(182)[address] [place], [place] 9556706-24-2025 14:10-0400Diastolic blood mnvhvhyq20 mm[Hg]Jack Peggy DO Work Phone: 1(129)[facility] [place], [place] [address]Lekjpmtrew79-93-5918 14:10-0400Systolic blood oyrimeqo468 mm[Hg]Jack Peggy DO Work Phone: 1(832)[address] [place], [place] 9556705-27-2025 14:35-0400Body mass index (BMI) [Ratio]27.41 kg/p4Wjjoh Peggy DO Work Phone: 1(298)[address] [place], [place] 9556705-27-2025 14:35-0400Body dpgefx46.02 kgCorey Peggy DO Work Phone: 1(009)[address] [place], [place] 9556705-27-2025 14:35-0400Diastolic blood ntnvrimn43 mm[Hg]Jack Peggy DO Work Phone: 1(551)[address] [place], [place] 9556705-27-2025 14:35-0400Systolic blood cijyvdqj297 mm[Hg]Jack Peggy DO Work Phone: 1(064)[address] [place], [place] 9556705-08-2025 13:34-0400Body mass index (BMI) [Ratio]26.95 kg/m2[facility]05-08-2025 13:34-0400Body mvujsa62.75 [facility]Fre[facility]05-08-2025 13:34-0400Diastolic blood mm[Hg][facility]05-08-2025 13:34-0400Systolic blood ybyknyyq061 mm[Hg][facility]11-27-2024 11:05-0500Body mass index (BMI) [Ratio]27.6 kg/j0Dgxrp Peggy DO Work Phone: 1(547)[address] [place], [place] 9556711-27-2024 11:05-0500Body .56 kgCorey Peggy DO Work Phone: [phone] [place], [place] [address]Uquslhgryn85-34-3410 11:05-0500Diastolic blood mfxvufpc64 mm[Hg]Jack Peggy DO Work Phone: [facility] CenterRnndolivud90-55-2127 11:05-0500Systolic blood mm[Hg]Jack Peggy DO Work Phone: [facility] CenterHcybklokwi58-57-2026 13:52-0400Body .6 cmCorey Peggy DO Work Phone: [facility] CenterArxsfpotsw78-48-8288 13:52-0400Body mass index (BMI) [Ratio]26.6 kg/r2Kvrvk Peggy DO Work Phone: [facility] CenterEuzeezzoct99-87-6372 13:52-0400Body xetume34.75 kgCorey Peggy DO Work Phone: [facility] CenterJcdzamgsht87-07-8063 13:52-0400Diastolic blood mm[Hg]Jack Peggy DO Work Phone: [facility] CenterQdxzpjvpmt02-40-9727 13:52-0400Systolic blood jobjkamt210 mm[Hg]Jack Peggy DO Work Phone: [facility] CenterMyqqbofoiv63-82-3701 18:10-0500Body ntttce517.64 cmAcelestina Anton Other [employer] Other 11-07-2023 18:10-0500Body mass index (BMI) [Ratio] 26.95 kg/r8MqslrRina Anton Other [employer] Other 11-07-2023 18:10-0500Body vaveijenjlo67.9 [degF]Rina Anton Other [employer] Other 11-07-2023 18:10-0500Body .75 kgRina Anton Other [employer] Other 11-07-2023 18:10-0500Respiratory rate18 /minRina Anton Other [employer] Other 11-07-2023 18:10-6739MlU2% (BldA) [Mass fraction]97 % Rina Anton Other [employer] Other 602031-86-3316 06:41-0400BP Qjtfjidmt12 mm[Hg][facility] [employer] [facility], OF57-43-6032 06:41-0400BP Cnkxeiot371 mm[Hg][facility] [employer] [facility], GI79-09-6477 06:41-0400Pulse (Heart Rate)64 /min [facility] [employer] [facility], NW99-63-3270 04:30-0400Body Vykostzptfa75.01 [degF][facility], LE11-78-9122 04:30-0400Body .92 kgH[facility] [employer] [facility], ZC57-19-2728 04:30-0400Pulse Buhhuttd049 % [facility], VL83-37-9398 04:30-0400Respiratory Rate18 /min [facility], [place] Encounters Encounter DateEncounter TypeCare ProviderFacilityStart: 03-19-2025 End: 72-66-2509Mgntpefpl Result EncounterCorey Peggy DO Work Phone: noms External Department UnsolicitedStart: 03-19-2025 End: 78-94-1398Tsfnyolws Result EncounterCorey Peggy DO Work Phone: noms External Department UnsolicitedStart: 03-17-2025 End: 50-33-8132Xraxzuebu Result EncounterHazel Romero NP Work Phone: noms External Department UnsolicitedStart: 03-17-2025 End: 86-65-3788Idlhoswsk Result EncounterHazel Romero NP Work Phone: no External Department UnsolicitedStart: 03-12-2025 End: 61-25-3986Ymtofdrt flow sheetKristina Heather 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 Phone: [facility] OBGYNComment on above:Hemorrhoids, unspecified hemorrhoid type (Primary Dx); Third trimester ([facility] 33 weeks gestation of ([facility])Start: 03-12-2025 End: 16-34-1062fkkgvtilbwJODEZHHJ EBERLYNot AvailableStart: 03-12-2025 End: 87-75-4476Cjdnhy flowsheetKristina Heather 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 Phone: [facility] OBGYNStart: 03-12-2025 End: 04-04-7215Fjdkbl flowsheetKristina Heather 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 Phone: [facility] OBGYNStart: 02-27-2025 End: 52-55-8488bgggchkotkRXUHV FAZIONot AvailableStart: 02-25-2025 End: 07-69-7718Mbxtqc flowsheetCorey Peggy DO Work Phone: [facility]BGYNStart: 02-25-2025 End: 79-75-8454Hzcxck flowsheetCorey Peggy DO Work Phone: [facility]BGYNStart: 02-25-2025 End: 09-76-0186Nzpbfzas flow sheetCorey Peggy DO Work Phone: [facility] OBGYNComment on above:Third trimester ([facility]); 31 weeks gestation of ([facility]); POTS (postural orthostatic tachycardia syndrome); Pain of right lower extremityStart: 02-25-2025 End: 10-47-2951iqlghxrwgsGEKYI FAZIONot AvailableStart: 02-11-2025 End: 83-45-7376Iiifds flowsheetKristina Heather 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 Phone: [facility]BGYNStart: 02-11-2025 End: 86-87-6458Usyynq flowsMoedayton Heather PURCELL Work Phone: [facility] OBGYNStart: 02-11-2025 End: 13-64-7924Prtjbqtf flow Lea Sanchezerly 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 Phone: [facility] OBGYNComment on above: size inconsistent with dates ([facility]) (Primary Dx); Third trimester ([facility]); 29 weeks gestation of ([facility])Start: 02-11-2025 End: 39-76-2073klpmgztaqzYIBVONXC EBBANDARNot AvailableStart: 01-29-2025 End: 54-21-4412Lmmibqepu Result EncounterJayla DA SILVA Work Phone: [facility] External Department UnsolicitedStart: 01-29-2025 End: 03-56-9308Wwgzxvvjb Result EncounterJayla DA SILVA Work Phone: [facility] External Department UnsolicitedStart: 01-28-2025 End: 64-33-1585Lexora Izzy DA SILVA Work Phone: [facility] OBGYNStart: 01-28-2025 End: 50-46-2287Dtksnu Izzy DA SILVA Work Phone: [facility]BGYNStart: 01-28-2025 End: 96-60-1458Pvvaapqi flow Nathaniel DA SILVA Work Phone: [facility] OBGYNComment on above:Second trimester ([facility]); 27 weeks gestation of ([facility]); Elevated glucose tolerance testStart: 01-28-2025 End: 65-87-4886zbsxtyyelhEBL RAMEYNot AvailableStart: 01-27-2025 End: 25-80-4341Wuaoricqr Result EncounterCorey Peggy DO Work Phone: [facility] External Department UnsolicitedStart: 01-27-2025 End: 67-77-3936Nexaabkxr Result EncounterCorey Peggy DO Work Phone: [facility] External Department UnsolicitedStart: 01-24-2025 End: 09-40-0958aizrhhpbksBGBLSOhioHealthtart: 01-21-2025 End: 91-92-6570Uwrnvrqgk Result EncounterJayla DA SILVA Work Phone: [facility] External Department UnsolicitedStart: 01-21-2025 End: 82-11-3523Elwnmshel Result EncounterJayla DA SILVA Work Phone: [facility] External Department UnsolicitedStart: 01-16-2025 End: 46-74-6192Cudjfa flowsheetCorey Peggy DO Work Phone: [facility] [facility]BGYNStart: 01-16-2025 End: 31-00-1006Mmtaqu flowsheetCorey Peggy DO Work Phone: [facility] [facility]BGYNStart: 01-16-2025 End: 85-11-8040Wckahrlk flow sheetCorey Peggy DO Work Phone: [facility] OBGYNComment on above:25 weeks gestation of ([facility]); Second trimester ([facility]); Palpitations; Syncope, unspecified syncope type; Gastroesophageal reflux in ([facility])Start: 01-16-2025 End: 12-08-7969obhgvfjhslBDXKF FAZIONot AvailableStart: 01-07-2025 End: 88-93-0321Tkbroy Izzy DA SILVA Work Phone: [facility]BGYNStart: 01-07-2025 End: 33-57-7000Cqxckb Izzy DA SILVA Work Phone: [facility] [facility]BGYNStart: 01-07-2025 End: 39-41-0795Kytuzmrv flow sheetJayla DA SILVA Work Phone: [facility] OBGYNComment on above:Second trimester ([facility]); 23 weeks gestation of ([facility]); Palpitations; TachycardiaStart: 01-07-2025 End: 89-56-2458nregpwxhliPMQ RAMEYNot AvailableStart: 12-31-2024 End: 78-24-1053Swwssfsz flow sheetCorey Peggy DO Work Phone: [facility] OBGYNComment on above:Second trimester ([facility]); 23 weeks gestation of ([facility]); Diabetes mellitus screeningStart: 12-31-2024 End: 15-48-5580bthnedbdrfLICOR FAZIONot AvailableStart: 12-31-2024 End: 57-86-9755Azkfxi flowsheetCorey Peggy DO Work Phone: [facility] [facility]BGYNStart: 12-31-2024 End: 89-08-5029Rxwvxb flowsheetCorey Peggy DO Work Phone: [facility]BGYNStart: 12-10-2024 End: 37-51-5717rewjyprokvNYPQM R FAZIOProMedica Valleywise [facility] HospitalStart: 12-03-2024 End: 00-35-1210Ppvcuk flowsheetJayla DA SILVA Work Phone: [facility] BCP OBStart: 12-03-2024 End: 92-69-7358Fkxwja flowsheetJayla DA SILVA Work Phone: [facility] OBStart: 12-03-2024 End: 07-02-2505Dmsynomq flow sheetJayla DA SILVA Work Phone: [facility] BCP OBComment on above:Second trimester ([facility]); 19 weeks gestation of ([facility])Start: 12-03-2024 End: 14-85-0578hasfvddcecAXA RAMEYNot AvailableStart: 11-12-2024 End: 15-16-6939Jbaybs consultation new/estab patient 58 Zahra Peres MD Work Phone: [phone]-Yhxpx [facility] at [facility] Comment on above:Adnexal mass (Primary Dx); 16 weeks gestation of ; Uterine fibroids affecting in second trimester; Localized swelling of right lower extremityStart: 11-12-2024 End: 71-81-4062Owogxj OnlyAmy [place] LPNMaternal- Medicine at [facility] HospitalComment on above:Adnexal mass (Primary Dx); Uterine fibroids affecting in second trimester; Localized swelling of right lower extremityStart: 11-05-2024 End: 64-56-7927Uphpxs flowsheetCorey Peggy DO Work Phone: noms BCP OBStart: 11-05-2024 End: 57-11-5591Tajuti flowsheetCorey Peggy DO Work Phone: noms BCP OBStart: 11-05-2024 End: 55-49-1751Xdyxgikyu Result EncounterCorey Peggy DO Work Phone: noms External Department UnsolicitedStart: 11-05-2024 End: 12-34-5964Juzabbik Result EncounterCorey Peggy DO Work Phone: noms External Department UnsolicitedStart: 11-05-2024 End: 52-46-4179Veqcaxm encounter procedureCorey Peggy DO Work Phone: [facility] Work Phone: Start: 11-05-2024 End: 55-03-8434Wijdqmlh preventive med est patient 18-39 yrsCorey Peggy DO Work Phone: noms BCP OBComment on above:Well woman exam with routine gynecological exam; Second trimester ([facility]); 15 weeks gestation of ([facility]); Vaginal discharge; STD exposureStart: 11-05-2024 End: 01-97-8639czmphczrbaOhqiw [facility] Work Phone: Start: 11-05-2024 End: 20-09-5785Hkyaaemx ReferredCorey Peggy-LAB Path Spec [facility] HospStart: 10-08-2024 End: 59-19-1469Mibvsofp flow sheetCorey Peggy DO Work Phone: noms BCP OBComment on above:11 weeks gestation of ; First trimester ; Other constipation; Gastroesophageal reflux in pregnancyStart: 10-08-2024 End: 58-96-9247oqamtxmlbnDDUTB FAZIONot AvailableStart: 10-08-2024 End: 05-02-2191Gsxfng flowsheetCorey Peggy DO Work Phone: NOTV BCP OBStart: 10-08-2024 End: 94-19-6724Ziklbj flowsheetCorey Peggy DO Work Phone: NOZH BCP OBStart: 09-24-2024 End: 17-27-2723Ifxoxpoly Result EncounterCorey Peggy DO Work Phone: NOM[facility] External Department UnsolicitedStart: 09-24-2024 End: 54-29-0561Jlwlbwxdg Result EncounterCorey Peggy DO Work Phone: noms External Department UnsolicitedStart: 09-19-2024 End: 97-12-7665Qookpv outpatient visit 5 minutesNoms Bcp Ob Peggy NurseNOMS BCP OBComment on above:GA: 9n1cGpmeq: 09-19-2024 End: 58-31-5328fewkrgklnsTKXOE FAZIONot AvailableStart: 08-28-2024 End: 13-02-5534ssdhskiqxbDENVB FAZIONot AvailableStart: 08-26-2024 End: 74-52-7608Ggpdzaxmc Result EncounterCorey Peggy DO Work Phone: NOIO External Department UnsolicitedStart: 08-26-2024 End: 43-91-5133Cfqgaldjf Result EncounterCorey Peggy DO Work Phone: NOGI External Department UnsolicitedStart: 08-24-2024 End: 49-38-8663Nmyyasadj Result EncounterCorey Peggy DO Work Phone: NOLY External Department UnsolicitedStart: 08-24-2024 End: 71-21-1795Uecmtprmr Result EncounterCorey Peggy DO Work Phone: NOZG External Department UnsolicitedStart: 08-22-2024 End: 64-17-8733Bwydworfy Result EncounterCorey Peggy DO Work Phone: NOFK External Department UnsolicitedStart: 08-22-2024 End: 05-54-0508Nwpsujwps Result EncounterCorey Peggy DO Work Phone: NOMS External Department UnsolicitedStart: 08-20-2024 End: 56-13-2680Aybafmjik Result EncounterCorey Peggy DO Work Phone: NOMS External Department UnsolicitedStart: 08-20-2024 End: 08-93-2577Hbqixddrj Result EncounterCorey Peggy DO Work Phone: NOMS External Department UnsolicitedStart: 08-17-2024 End: 58-92-8999Wyzofvfpi Result EncounterCorey Peggy DO Work Phone: NOMS External Department UnsolicitedStart: 08-17-2024 End: 73-62-9815Ooickrlqt Result EncounterCorey Peggy DO Work Phone: NOMS External Department UnsolicitedStart: 08-15-2024 End: 29-07-2403Gumpaxixj Result EncounterCorey Peggy DO Work Phone: NOMS External Department UnsolicitedStart: 08-15-2024 End: 43-83-6115Otmtqgczn Result EncounterCorey Peggy DO Work Phone: NOMS External Department UnsolicitedStart: 06-14-2024 End: 29-22-0654Hppputkov Result EncounterCorey Peggy DO Work Phone: NOMS External Department UnsolicitedStart: 06-14-2024 End: 05-97-2773Rjfullxsq Result EncounterCorey Peggy DO Work Phone: NOMS External Department UnsolicitedStart: 04-18-2024 End: 38-61-2190Uwgrljnuh Result EncounterCorey Peggy DO Work Phone: NOMS External Department UnsolicitedStart: 04-18-2024 End: 53-21-1457Ztlbraquo Result EncounterCorey Peggy DO Work Phone: noms External Department UnsolicitedStart: 04-10-2024 End: 85-25-8463Fhvayz flowsheetCorey Peggy DO Work Phone: NOLY BCP OBStart: 04-10-2024 End: 83-48-2145Kgdfab flowsheetCorey Peggy DO Work Phone: NOWM BCP OBStart: 04-10-2024 End: 20-17-4672Qlzlem outpatient visit 15 minutesCorey Peggy DO Work Phone: noms BCP OBComment on above:Encounter for infertility; Hormone disorderStart: 04-10-2024 End: 31-22-6766ketxydcqkwVJTWB FAZIONot AvailableStart: 03-21-2024 End: 21-40-5761Xfgjavrlm Result EncounterCorey Peggy DO Work Phone: noms External Department UnsolicitedStart: 03-21-2024 End: 96-17-5417Tjjkpgism Result EncounterCorey Peggy DO Work Phone: noms External Department UnsolicitedStart: 02-17-2024 End: 70-67-3741Cxcpdlvbs Result EncounterCorey Peggy DO Work Phone: noms External Department UnsolicitedStart: 02-17-2024 End: 39-25-0899Klpxowgjc Result EncounterCorey Peggy DO Work Phone: noms External Department UnsolicitedStart: 2024 End: 52-68-8107Jfdaaucmk Result EncounterCorey Peggy DO Work Phone: NOGV External Department UnsolicitedStart: 2024 End: 69-89-9294Yhoyiujdt Result EncounterCorey Peggy DO Work Phone: noms External Department UnsolicitedStart: 2024 End: 07-17-1688Rolkle outpatient visit 15 minutesCorey Peggy DO Work Phone: NOZR BCP OBComment on above:Female infertility; History of miscarriageStart: 01-05-2024 End: 75-10-6508Zjkqchj encounter procedureMD Zachary Mayes Work Phone: [facility] [place] Work Phone: Start: 01-05-2024 End: 61-46-1033hiticqzgkwCR Zachary Alvarez [place] Work Phone: [phone] [place] [address] Ctr Work Phone: Start: 12-28-2023 End: 63-59-5944Gwskczs encounter procedureMD Zachary Mayes Work Phone: [phone] [place] [address] Ctr-[facility] [place] Work Phone: Start: 12-28-2023 End: 86-66-2710zhwxyepcuvJL Zachary Alvarez [place] Work Phone: [phone] [place] [address] Ctr Work Phone: Start: 12-22-2023 End: 06-98-9916Jghfces encounter procedureMD Zachary Mayes Work Phone: [phone] [place] [address] Ctr-[facility] [place] Work Phone: Start: 12-22-2023 End: 97-15-1841ulzegdzcogEW Zachary Alvarez [place] Work Phone: [phone] [place] [address] Ctr Work Phone: Start: 12-20-2023 End: 29-39-0752Bzkelkw encounter procedureMD Zachary Mayes Work Phone: [facility] [place] Work Phone: Start: 12-20-2023 End: 45-37-7657bnhkfnyntlAR Zachary Alvarez [place] Work Phone: [phone] [place] [address] Ctr Work Phone: Start: 12-09-2023 End: 58-36-7074Vagrutj encounter procedureMD Zachary Mayes Work Phone: [facility] [place] Work Phone: Start: 12-09-2023 End: 84-76-5621zqrdougmbqZW Zachary Mayes Work Phone: [facility] Work Phone: Start: 12-07-2023 End: 34-05-2324Gyvedym encounter procedureMD Zachary Mayes Work Phone: [phone] [place] [address] Medical Ctr-[facility] [place] Work Phone: Start: 12-07-2023 End: 69-77-6651kwodedlgyvPV Zachary Mayes Work Phone: [phone] [place] [address] Medical Ctr Work Phone: Start: 12-05-2023 End: 88-31-6576Tjfyafz encounter procedureMD Zachary Mayes Work Phone: [phone] [place] [address] Medical [facility]tr[facility] [place] Work Phone: Start: 12-05-2023 End: 09-99-7273hmwpyslbrjET Zachary Mayes Work Phone: [phone] [place] [address] Ctr Work Phone: Start: 12-02-2023 End: 69-28-6882ynhvfsndmtDX Zachary Mayes Work Phone: [phone] [place] [address] Ctr Work Phone: Start: 12-02-2023 End: 29-49-8454Ggrjynd encounter procedureMD Zachary Mayes Work Phone: [facility] [place] Work Phone: Start: 05-01-2023 End: 20-29-3396Emhliwykp to same day surgery centerMD Zachary Mayes Work Phone: [phone] [place] [address] Ctr-XRay [facility] [place] Work Phone: Start: 05-01-2023 End: 77-86-6212slqtphhnxmLU Zachary Mayes Work Phone: [facility] Work Phone: Start: 03-21-2023 End: 43-35-9034hyzzugpxbiVschg Keller Other [employer] Other Start: 41-71-9916Cqjsrf outpatient new 30 minutesAmber DeseanFPG Urgent Care ClydeStart: 02-01-2019 End: 73-44-8317Dfhzjbqcw department patient visitVESSINAI-[facility] DIMITROVMercy Methodist Olive Branch Hospitaltart: 02-01-2019 End: 61-62-8702Ejjweglvf department patient visitVessummersville memorial hospital Dago Work Phone: [facility] EDComment on above:Abdominal pain, right lower quadrant (Primary Dx); History of ovarian cyst Procedures DateProcedureProcedure DetailPerforming ClinicianStart: 82-14-7984XM OB CERVICAL LENGTHCorey Peggy DO Work Phone: Start: 90-50-4476MT OB BPP W NON-STRESSCorey Peggy DO Work Phone: Start: 13-19-6362ZF OB PLACENTACorey Peggy DO Work Phone: Start: 82-09-7148RKJ CBC WITH AUTO DIFFKristina Heather 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 Phone: Start: 61-41-0809Aikra dip stick/tablet rgnt non-auto w/o micrscpKristina Heather 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 Phone: Start: 87-38-5025Oysmi dip stick/tablet rgnt non-auto w/o micrscpCorey Peggy DO Work Phone: Start: 01-75-8434Yinoj dip stick/tablet rgnt non-auto w/o micrscpKristina Heather 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 Phone: Start: 24-56-1278IONVBHM TOLERANCE 3 HOURJayla DA SILVA Work Phone: Start: 53-35-9442Ubtbp dip stick/tablet rgnt non-auto w/o micrscpCorey Peggy DO Work Phone: Start: 67-48-9986HHNGIDP 1 HOURCorey Peggy DO Work Phone: Start: 66-99-0673YM ECHO DOPPLER COMPLETEJayla DA SILVA Work Phone: Start: 72-82-4006Cgsoo dip stick/tablet rgnt non-auto w/o micrscpCorey Peggy DO Work Phone: Start: 59-93-5421Hcnfb dip stick/tablet rgnt non-auto w/o micrscpAmy Cali DA SILVA Work Phone: Start: 16-40-0041Narcz dip stick/tablet rgnt non-auto w/o micrscpCorey Peggy DO Work Phone: Start: 97-70-8786Tdalp dip stick/tablet rgnt non-auto w/o micrscpAmy Cali DA SILVA Work Phone: Start: 63-82-8547RVCHK FREE CELL DNA (NON-[facility] SEND OUT)Not In System Ref ProvStart: 38-60-8822USRXRQAFN VAGINITIS (HTRX)Jack Peggy DO Work Phone: Start: 08-87-4782Jcrva dip stick/tablet rgnt non-auto w/o micrscpCorey Peggy DO Work Phone: Start: 70-65-1582MPR,APTIMA HPV,AGE GDLNCorey Peggy DO Work Phone: Start: 75-18-4503VQKIJHVJI REQUEST FOR LAB CORPCorey Peggy DO Work Phone: Start: 67-80-8608Rnolu dip stick/tablet rgnt non-auto w/o micrscpCorey Peggy DO Work Phone: Start: 37-52-5459AJT HEMOGLOBIN U8AHpnfl Peggy DO Work Phone: Start: 86-28-7403Fovis dip stick/tablet rgnt non-auto w/o micrscpCorey Peggy DO Work Phone: Start: 35-21-6166KOW PREG QUANT HCGCorey Peggy DO Work Phone: Start: 78-43-2499MCN PREG QUANT HCGCorey Peggy DO Work Phone: Start: 93-22-0881TOX PREG QUANT HCGCorey Peggy DO Work Phone: Start: 71-44-6286PDE PREG QUANT HCGCorey Peggy DO Work Phone: Start: 83-10-1621BHS PREG QUANT HCGCorey Peggy DO Work Phone: Start: 20-16-3487FXY PREG QUANT HCGCorey Peggy DO Work Phone: Start: 71-13-7371OAS PROGESTERONECorey Peggy DO Work Phone: Start: 51-56-1623RLI PROGESTERONECorey Peggy DO Work Phone: Start: 24-08-0916TUE PREG QUANT HCGCorey Peggy DO Work Phone: Start: 71-21-6892KZN PROGESTERONECorey Peggy DO Work Phone: Start: 67-88-3295ZJR HEMOGLOBIN D2EWkouo Peggy DO Work Phone: Start: 82-51-0543Yniepokgnw ultrasound of gravid uterusMD Zachary Mayes Work Phone: Start: 93-26-4712Gstiuqarwu microscopic onlyVESELIN DIMITROVStart: 08-75-5687Ugveb test visual color cmprsn methsVESELIN DIMITROVStart: 40-49-9845Wlmau dip stick/tablet rgnt auto w/o microscopyVESELIN DIMITROVStart: 45-10-3034Rnbrd count complete auto&auto difrntl wbcVESELIN DIMITROVStart: 60-61-6875Muhcixujnjudt metabolic panelVESELIN DIMITROVStart: 84-24-2023Mdfucpljto microscopic onlyVeselin Dago Work Phone: start: 22-10-2511Bgffh test visual color cmprsn methsVeselin Dago Work Phone: start: 75-31-1381Pegkr dip stick/tablet rgnt auto w/o microscopyVeselin Dago Work Phone: start: 85-94-1760Wyfsm count complete auto&auto difrntl wbcVeselin Dago Work Phone: start: 37-31-1281Bqtmfbpmyxgat metabolic panelVeselin Dago Work Phone: Plan of Treatment DateCare ActivityDetailAuthorStart: 37-24-0216Pacsr BMI ScreeningAdult BMI ScreeningProMercy Health Allen Hospitalca Health SystemStart: 44-30-4235Nredpvv ScreeningTobacco ScreeningProMercy Health Allen Hospitalca Health SystemStart: 03-26-2025 End: 31-74-6011Pxvemth encounter bpcpdarrm81/12/2025 2:40 PM EST Routine NOMS [facility] SILVESTREN [address] [facility] [address] [place], [phone] Jack Woods DO [address] [place] [address] NOMS Sachin OBGYNStart: 03-12-2025 End: 97-75-8899Ocekxdh encounter procedureNOMS Sachin Waltersment on above: ArrivedStart: 02-27-2025 End: 82-02-6728Huwlpzvgcvzw / ancillary services jcshhenycv99/16/2025 11:00 AM EDT Ancillary Procedure [facility] OBGYN [address] [facility] [place] [address] NOMS [place] OBGYNStart: 02-25-2025 End: 43-75-3596ED.doppler Lower extremity vein - rightVascular US lower extremity venous duplex right Imaging Routine Pain of right lower extremity Expected: 02/25/2025, Expires: 02/25/2026[facility] Work Phone: comment on above:Expected: 02/25/2025, Expires: 02/25/2026Start: 02-25-2025 End: 51-33-2014Zzqatri encounter procedureNOMS [place] OBGYNComment on above: ArrivedStart: 02-19-2025 End: 43-75-4161Gfjxhwnmptzs / ancillary services fweffaoabs97/08/2025 11:30 AM EDT Ancillary Procedure [facility] OBGYN [address] [place] [address] [place] [address] NOMS [place] OBGYNStart: 02-11-2025 End: 96-48-1055BG for pregnancyUS OB follow up transabdominal approach Imaging Routine size inconsistent with dates ([facility]) Expected: 02/11/2025, Expires: 06/13/2025[facility] Work Phone: comment on above:Expected: 02/11/2025, Expires: 06/13/2025Start: 02-11-2025 End: 75-91-5988Peytrdk encounter procedureNOMS [place] OBGYNComment on above: ArrivedStart: 01-28-2025 End: 03-23-8556Bezsradjqtb of glucose 3 hours after glucose challenge for glucose tolerance testGlucose tolerance, 3 hours Lab Routine Elevated glucose tolerance test Expected: 01/28/2025 (Approximate), Expires: 01/28/2026[facility] Work Phone: comment on above:Expected: 01/28/2025 (Approximate), Expires: 01/28/2026Start: 01-28-2025 End: 15-01-5463Oyauufh encounter procedureNOMS [place] OBGYNComment on above: ArrivedStart: 01-21-2025 End: 02-29-5384Ojfahjm encounter renigicrn89/09/2025 8:40 AM EDT Office Visit [facility] OBGYN [address] [facility] [place] [phone] Jack Woods, DO [address] [place] [address] NOMS Sachin OBGYNStart: 01-16-2025 End: 36-46-4210Wduxdkb encounter uwwqajqix78/04/2025 9:20 AM EDT Office Visit [facility] OBGYN [address] [facility] [place] [address] Jack Woods, DO [address] [place] [address] ArrivedNOMS Sachin OBGYNComment on above:ArrivedStart: 37-55-0462Sipnlahzn vaccinationInfluenza VaccineAdena Fayette Medical Center SystemStart: 01-07-2025 End: lead ECGECG 12 lead unit performed ECG Routine Palpitations Expected: 01/07/2025 (Approximate), Expires: 01/07/2026[facility] Work Phone: comment on above:Expected: 01/07/2025 (Approximate), Expires: 01/07/2026Start: 01-07-2025 End: 66-44-2336Ytcdlyejatutoo 2D completeEchocardiogram 2D complete Echocardiography Routine Palpitations Tachycardia Expected: 01/07/2025 (A pproximate), Expires: 01/07/2027[facility] HealthcareComment on above:Expected: 01/07/2025 (Approximate), Expires: 01/07/2027Start: 01-07-2025 End: 79-40-4633Cdyvfrv encounter mvezxiofu68/26/2025 1:50 PM EDT Office Visit [facility] OBGYN [address] [facility] [place] [phone] Jayla Art PA [address] [place] [address] ArrivedRIMMA [place] OBGYNComment on above:ArrivedStart: 12-31-2024 End: 26-28-5287Vghhkja encounter bminwdvwf25/19/2025 2:10 PM EDT Routine [facility] OBGYN [address] [facility] [address] [place], [id number] Jack Woods, [address] [place] [address] ArrivedRIMMA [place] OBGYNComment on above:ArrivedStart: 12-31-2024 End: 42-79-9193EUJ panel - Blood by Automated countCBC Lab Routine Diabetes mellitus screening Expected: 12/31/2024 (Approximate), Expires: 12/31/2025[facility] Work Phone: comment on above:Expected: 12/31/2024 (Approximate), Expires: 12/31/2025Start: 12-31-2024 End: 95-17-6055Simlatrnlei of glucose 1 hour after glucose challenge for glucose tolerance testGlucose tolerance, 1 hour Lab Routine Diabetes mellitus screening Expected: 12/31/2024 (Approximate), Expires: 12/31/2025[facility] HealthcareComment on above:Expected: 12/31/2024 (Approximate), Expires: 12/31/2025Start: 12-10-2024 End: 17-06-5464Gnboxfh encounter sipjmurpx49/29/2025 1:30 PM EDT Appointment [facility] [place] [address] [place] [address] [facility]qblmuk [facility]: 12-03-2024 End: 85-40-7342Ludjiuw encounter procedureNO [facility] OBComment on above:Second trimester ([facility])Start: 11-12-2024 End: 59-88-9766DC Pelvis WO contrastMR pelvis without contrast Imaging Routine Adnexal mass 16 weeks gestation of Expected: 11/12/2024, Expires: 11/12/2025[facility] Work Phone: comment on above:Expected: 11/12/2024, Expires: 11/12/2025Start: 11-12-2024 End: 90-99-8277KG MFM with or without consultUS MFM with or without consult Imaging Routine Adnexal mass Uterine fibroids affecting insecond trimester Localized swelling of right lower extremity Expected: 11/12/2024, Expires: 11/12/2025[facility] Work Phone: comment on above:Expected: 11/12/2024, Expires: 11/12/2025Start: 11-12-2024 End: 20-29-3091PP.doppler Lower extremity vein - rightVas venous duplex insufficiency lwr rt Vascular Ultrasound Routine Localized swelling of right lower extremity Expected: 11/12/2024, Expires: 11/12/2025[facility] Hospital[facility] Comment on above:Expected: 11/12/2024, Expires: 11/12/2025Start: 11-05-2024 End: 94-65-6599Cbawq fetoprotein, maternalAlpha fetoprotein, maternal Lab Routine Second trimester ([facility]) 15 weeks gestation of ([facility]) Expected: 11/05/2024 (Approximate), Expires: 05/07/2025[facility] Comment on above:Expected: 11/05/2024 (Approximate), Expires: 05/07/2025Start: 11-05-2024 End: 13-76-5692Xncxjaz encounter procedureNOMS BCP OBComment on above:Arrived Start: 16-09-8320CbatxsbzwChillicothe VA Medical Centertart: 10-08-2024 End: 17-63-4776Ujaxtij encounter procedureNOMS BCP OBComment on above:Arrived Start: 09-19-2024 End: 64-11-5792ZBM/RhABO/Rh Lab Routine Missed menses , unspecified gestational age Expected: 09/19/2024 (Approximate), Expires: 09/19/2025NOM[facility] HealthcareComment on above:Expected: 09/19/2024 (Approximate), Expires: 09/19/2025Start: 09-19-2024 End: 32-07-1596Hydob type and Indirect antibody screen panel - BloodType and screen Lab Routine Missed menses , unspecified gestational age Expected: 09/19/2024 (Approximate), Expires: 09/19/2025[facility] Work Phone: comment on above:Expected: 09/19/2024 (Approximate), Expires: 09/19/2025Start: 09-19-2024 End: 86-66-6987Tedov of abuse panel - Urine by Screen methodRapid drug screen, urine Lab Routine , unspecified gestational age Encounter for supervision of normal first in first trimester Expected: 09/19/2024 (Approximate), Expires: 09/19/2025NOMS HealthcareComment on above:Expected: 09/19/2024 (Approximate), Expires: 09/19/2025Start: 09-19-2024 End: 71-27-8137gvepsqweti12/08/2025 1:30 PM EDT Initial NOMS [facility] OB [facility] [place] [address] EUZD BCP OBStart: 09-19-2024 End: 92-12-3585Obqldcjqpwse / ancillary services qmmrnxrgva24/08/2025 1:00 PM EDT Ancillary Procedure NOM[facility] [place] [address] AVIR BCP OBStart: 08-28-2024 End: 43-95-2003Enbpngijgkcb / ancillary services zqczdolhyu06/16/2025 8:30 AM EDT Ancillary Procedure NOM[facility] [place] [address] VXCS BCP OBStart: 04-10-2024 End: 51-74-6623Kvsewfprfoycb hormone (AMH)Antimullerian hormone (AMH) Lab Routine Hormone disorder Expected: 04/10/2024 (Approximate), Expires: 04/10/2025 [facility] Work Phone: comment on above:Expected: 04/10/2024 (Approximate), Expires: 04/10/2025Start: 04-10-2024 End: 85-42-3077Lhewjfu encounter kzhzvwvex31/27/2024 11:10 AM EST Office Visit NOMS [facility] OB [address] [facility] [facility] [place] [phone] Jack Woods, DO [address] [place] [address] ArrivedST. JOHN[facility] OBComment on above:ArrivedStart: 2024 End: 60-57-0931Dxedqrc encounter kypnvqttp44/24/2024 1:20 PM EDT Office Visit NOMS BCP OB [address] [facility] [place] [address] Jack Woods, DO [address] [place] [address] NOMS [facility] OBStart: 59-25-2176YZyU,Tdap and Td Vaccines (2 - Td or Tdap)DTaP,Tdap and Td Vaccines (2 - Td or Tdap)[facility]: 03-89-5384Pkolbdsec for malignant neoplasm of cervixPap Smear [facility]: 15-24-7625Bpofvslwp vaccinationFlu vaccine (#1) [facility]: 85-84-0694Xwdzj BMI Follow Up PlanAdult BMI Follow Up PlanAtrium Healthtart: 36-08-1190Nhfbmcjjvh ScreeningDepression ScreeningLicking Memorial HospitalBacteria identified in Urine by CultureUrine culture Microbiology Routine Missed menses Ordered: 09/19/2024[facility] Comment on above:Ordered: 5CBC W Auto Differential panel - BloodCBC and differential Lab Routine Missed menses , unspecified gestational age Ordered: 09/19/2024[facility] HealthcareComment on above:Ordered: 5CBC W Auto Differential panel - BloodCBC and differential Lab Routine Third trimester ([facility]) Ordered: 03/12/2025[facility] Healthcare Work Phone: comment on above:Ordered: 03/12/2025HLAMYDIA TRACHOMATIS (GENITO/STI)CHLAMYDIA TRACHOMATIS (GENITO/STI) Lab Routine STD exposure Ordered: 11/05/2024[facility] HealthcareComment on above:Ordered: 11/05/2024 Cytology Cervical or vaginal smear or scraping studyPap Smear Pathology and Cytology Routine Well woman exam with routine gynecological exam Ordered: [facility] HealthcareComment on above:Ordered: 11/05/2024Hemoglobin A1c/Hemoglobin.total in BloodHemoglobin A1c Lab Routine Missed menses , unspecified gestational age Ordered: 09/19/2024[facility] HealthcareComment on above: Ordered: 09/19/2024Hepatitis B virus surface Ag [Presence] in Serum or Plasma by ImmunoassayHepatitis B surface antigen Lab Routine Missed menses , unspecified gestational age Ordered: 09/19/2024[facility] HealthcareComment on above: Ordered: 09/19/2024Hepatitis C virus Ab [Presence] in Serum or Plasma by ImmunoassayHepatitis C antibody Lab Routine Missed menses , unspecified gestational age Ordered: 09/19/2024[facility] HealthcareComment on above:Ordered: 09/19/2024HIV-1/HIV-2 antigen/antibody combination immunoassayHIV-1 and HIV-2 antibodies Lab Routine Missed menses , unspecified gestational age Ordered: 09/19/2024[facility] HealthcareComment on above:Ordered: 09/19/2024Neisseria gonorrhoeae DNA [Presence] in Unspecified specimen by DARIUS with probe detection Neisseria gonorrhea DNA probe, direct Lab Routine STD exposure Ordered: 11/05/2024[facility] HealthcareComment on above:Ordered: 11/05/2024Progesterone [Mass/volume] in Serum or PlasmaOhiohealth Nelsonville Health CenterReagin Ab [Presence] in Serum by RPRRPR Lab Routine Missed menses , unspecified gestational age Ordered: 09/19/2024[facility] HealthcareComment on above:Ordered: 09/19/2024Rubella antibody, IgGRubella antibody, IgG Lab Routine Missed menses , unspecified gestational age Ordered: 09/19/2024[facility] HealthcareComment on above:Ordered: 09/19/2024SURESWAB(R) ADVANCED VAGINITIS PLUS, TMASURESWAB(R) ADVANCED VAGINITIS PLUS, TMA Pathology and Cytology Routine Vaginal discharge Ordered: 11/05/2024[facility] Work Phone: comment on above:Ordered: 11/05/2024 Immunizations Immunization DateImmunizationNotesCare MhyyywpuQtniolvi26-76-4773ewaydkzly virus vaccine, unspecified formulationGuadalupe Peres MD Work Phone: [facility] Payers DatePayer CategoryPayerPolicy [id number] Medical Center Care - PPOANTHEM Member Subscriber Plan / Payer (Effective 2024-Present) Name: Daphney Al Relation to Subscriber: Self Name: Daphney Al PayerID: [id number] (NA) Type: Not on file Address: [address] [place] [id number] [id number].9.013596.5550[id number] 93-49-0731Bcbymwh Health [id number] 2.16.840.4.074276.1365-20-2024 Ddar-[id number]tnxd Health Insurance 1.2.840.125876.1.13.693.2.7.3.892573.590[id number] UnknownBCBS BCBS - [place] PPO xxxxxxxxxxxx 2014-Present [address] [place], [place] [address]evoiocdspglx 1.2.840.827268.1.13.239.2.7.3.469729.54114-49-3933Fthoibz [id number] 2.16840.1.444903.3.57[id number] 2.16840.1.757262.3.579.[id number] 2.16840.1.186030.3.57[id number] 2.16840.1.085105.3.57[id number] 2.16840.1.227500.3.579.2.91[id number] 2.16840.1.223528.3.579.2.550[id number] 2.16840.1.057339.3.579.2.303120-56-9936Eeclala44454881 2.16840.1.591481.3.579.2.463939-30-9109Fcrhnoi57537253 2.16840.1.227330.3.579.2.299973-35-9761Wvakvdc80207148 2.16840.1.459269.3.579.2.284753-98-0979Cgdjqia89638995 2.16840.1.177217.3.579.2.293776-27-6101Reamrgc20002766 2.16840.1.853010.3.57[id number] 2..1.340768.3.579.2.021[id number] 2..1.391642.3.579.2.491249-91-3063Jebmdib1707449 2..1.719937.3.579.2.143083-83-4582Wlirfzv2890890 2..1.195207.3.579.2.105838-35-4968Gpdtzhe0975097 2..1.985538.3.579.2.168331-24-6466Xjtdwno2097418 2..1.075844.3.579.2.813632-79-3154Yzmobvm1839353 2..1.756510.[id number] 26m8c045-t72o-96kl-xj38-8l15p581c9dsDmjnzxwEmdsfm /[id number] 75vq2n71-7543-7wf4-i47m-[id number] ..1.285452.3.579.2.347Gwqetib01274336 2..1.087921.3.579.2.531 Aikchjs70613460 ..1.252540.3.579.2.516Tgabexr12394295 2..1.407451.3.579.2.477Ekpetyq23965673 2..1.531269.3.579.2.531 Bhgkxwt50368712 2..1.246540.3.579.2.277Mahbudk30674468 2..1.703023.3.579.2.999Rmvxpal33305356 2.16.840.1.974067.3.579.2.531 Ggcpuer47343573 2.16.840.1.513300.3.579.2.531 Social History DateTypeDetailFacilityStart: 02-01-2019 End: 50-60-5991Ilonviz smoking status NHISNever smokerChillicothe VA Medical Centertart: 02-01-2019 End: 69-51-7272Apdamrt intakeNot [facility]: 2000 Sex Assigned At BirthNot on [facility]: 85-10-3553Oef Assigned At BirthFeProvidence Hospitaltart: 2024 End: 03-60-1132Roguffyfh beverage intakeLifetime non-drinker (finding)NOM HealthcareStart: 04-28-2023 End: 34-76-6208Aoawpdx of Social functionNONC HealthcareStart: 25-78-9788Iqevoyg CommentCaffeine intake: 3-4 cups per daySALT LAKE BE[facility]IORAL HEALTH [facility] HealthcareStart: 08-06-2024 PregnancyNONC HealthcareStart: 17-71-5574VeaBewgvf (finding)[facility] Centertart: 85-51-6497Lzwadt the past 12 months we worried whether our food would run out before we got money to buy more.Never [facility] Clinical Notes 03-21-2023 to 03-12-2025 Note Date & EgyxAtqyAzqoemsq45-60-3861 History of Present illness Narrative* Hazel Romero, [...] HOURS NEEDED FOR NAUSEA AND VOMITING Vit w/Ez-Gydmmqbdo-DQ (PNV PO) ALLERGIES Allergies Allergen Reactions Cephalexin [...] nursing note reviewed. Exam conducted with a cotton program technician present. Vitals: Estimated body mass index is 30.55 kg/m as calculated from the following: Height as of 02/06/24: 5' 6 . Weight as of this encounter: 189 lb 4 oz. BP: 102/72 Patient's last menstrual period was 07/23/2024. Assessment/Plan ICD-10-CM 1. Third trimester ([facility]) Z34.93 POCT urinalysis dipstick manually resulted 2. 33 weeks gestation of ([facility]) Z3A.33 Return OB: Patient presents today [...] of: Hazel Romero NP documented in this encounterMoberly Regional Medical CenterSplewbmmtd97-87-7512 History of Present illness Narrative* Lisa Prasad [...] 6 hours as needed for nausea. Vit w/My-Yfxnjylgz-CW (PNV PO) ALLERGIES Allergies[1] PROBLEMS Active Ambulatory Problems Diagnosis Date Noted No Active Ambulatory Problems Resolved Ambulatory Problems Diagnosis Date Noted No Resolved Ambulatory Problems Past Medical History: Diagnosis Date Acne vulgaris Endometriosis History of medical problems Miscarriage ([facility]) Ovarian cyst HISTORY PAST MEDICAL [...] nursing note reviewed. Exam conducted with a cotton program technician present. Vitals: Estimated body mass index is 30.67 kg/m as calculated from the following: Height as of 02/06/24: 5' 6 . Weight as of this encounter: 190 lb. BP: 120/70 Patient's last menstrual period was 07/23/2024. ASSESSMENT & PLAN ICD-10-CM 1. Third trimester ([facility]) Z34.93 POCT urinalysis dipstick manually resulted 2. 31 weeks gestation of ([facility]) Z3A.31 3. POTS (postural orthostatic tachycardia syndrome) [...] Diagnostic lap-endometriosis TONSILLECTOMY 11/03/2016 documented in this encounterMoberly Regional Medical CenterCkbsewnxvs66-77-0091 History of Present illness Narrative* Hazel Romero [...] 6 hours as needed for nausea. Vit w/Mm-Swawoafmk-HP (PNV PO) ALLERGIES Allergies Allergen Reactions Cephalexin [...] vulgaris Endometriosis History of medical problems Miscarriage ([facility]) Ovarian cyst HISTORY PAST MEDICAL HISTORY SOCIAL HISTORY Past Medical History: Diagnosis Date Acne vulgaris Endometriosis History of medical problems recurrent strep Miscarriage ([facility]) Ovarian cyst Social History Tobacco Use [...] nursing note reviewed. Exam conducted with a cotton program technician present. Vitals: Estimated body mass index is 30.18 kg/m as calculated from the following: Height as of 02/06/24: 5' 6 . Weight as of this encounter: 187 lb. BP: 118/72 Patient's last menstrual period was 07/23/2024. ASSESSMENT & PLAN ICD-10-CM 1. Third trimester ([facility]) Z34.93 POCT urinalysis dipstick manually resulted 2. 29 weeks gestation of ([facility]) Z3A.29 Return OB: Patient presents today for a routine obstetrics appointment. Patient is currently 29w0d . Patient states she is doing well but has complaints of being tired due to current . Patient has verbalizes frequent movement. labor precautions was discussed/given and patient was instructed to perform kick counts three times a day. Patient has been evaluated by [facility] Cardiology with a history of syncopal [...] of: Hazel Romero NP documented in this encounterMoberly Regional Medical CenterHuynbzcgrn64-26-3616 History of Present illness Narrative* REKHA Ott [...] 6 hours as needed for nausea. Vit w/Ou-Tvcvilkkh-GF (PNV PO) ALLERGIES Allergies Allergen Reactions Cephalexin [...] ASSESSMENT & PLAN ICD-10-CM 1. Second trimester ([facility]) Z34.92 POCT urinalysis dipstick manually resulted 2. 27 weeks gestation of ([facility]) Z3A.27 3. Elevated glucose tolerance test [...] behalf of: REKHA Ott documented in this encounterMoberly Regional Medical CenterQzdpqkqzkc19-55-4856 NoteB[facility] Note Reason for [...] negative for PE or any abnormalities. Her receptionist secretary ordered echo which came back normal. A [...] she cannot go b (more content not included)...[facility]09-04-20[facility] History of Present illness Narrative* Kelley Sepulveda, AVIONICS TECHNICIAN - 01/16/2025 9:20 AM EDT Reason for Appointment: Patient ID: Daphney Al is a 24 y.o. female who presents for Routine Visit Patient presents today for Return OB appointment. MEDICATIONS Current Outpatient Medications Medication Instructions aspirin 81 MG oral suspension ondansetron (ZOFRAN) 4 mg, Oral, Every 6 hours PRN, Take 1 tablet by mouth every 6 hours as needed for nausea. Vit w/Mk-Lzeivplrd-DB (PNV PO) ALLERGIES Allergies Allergen Reactions Cephalexin [...] nursing note reviewed. Exam conducted with a cotton program technician present. Vitals: Estimated body mass index is 29.67 kg/m as calculated from the following: Height as of 02/06/24: 5' 6 . Weight as of this encounter: 183 lb 12.8 oz. BP: 120/78 Patient's last menstrual period was 07/23/2024. ASSESSMENT & PLAN ICD-10-CM 1. 25 weeks gestation of ([facility]) Z3A.25 POCT urinalysis dipstick manually resulted 2. Second trimester ([facility]) Z34.92 POCT urinalysis dipstick manually resulted 3. Palpitations R00.2 4. Syncope, unspecified syncope type R55 5. Gastroesophageal reflux in ([facility]) O99.619 K21.9 Patient presents today for a routine obstetrics appointment. Patient is currently 25w2d with a Estimated Date of Delivery: 04/29/25. Patient had spells where she passed out. Patient to have Cardiac Consult hopefully within the next week. Referral will be made today to Cardiology at [facility]. Patient has a EKG scheduled for Monday at 1pm. Patient voiced that she sees stars and then gets dizzy.Advised to increase protein and to remain off work until cleared by Cardiology. Patient to return to clinic 1 week. Documented by Kelely Sepulveda LPN on behalf of: Jack Woods DO documented in this encounterMoberly Regional Medical CenterCvwhpotckt14-20-1657 History of Present illness Narrative* REKHA Ott [...] 6 hours as needed for nausea. Vit w/Zh-Caatnokco-EX (PNV PO) pyridoxine (VITAMIN B-6) 25 mg, [...] vulgaris Endometriosis History of medical problems Miscarriage ([facility]) Ovarian cyst HISTORY PAST MEDICAL HISTORY [...] ASSESSMENT & PLAN ICD-10-CM 1. Second trimester ([facility]) Z34.92 POCT urinalysis dipstick manually resulted iron polysaccharides (ProFe) 391.3 (180 Fe) MG capsule 2. 23 weeks gestation of ([facility]) Z3A.23 3. Palpitations R00.2 ECG [...] behalf of: REKHA Ott documented in this encounterMoberly Regional Medical CenterMmcrfxpnha97-21-1950 History of Present illness Narrative* Lisa Prasad, AVIONICS TECHNICIAN - 12/31/2024 2:10 PM EDT Reason for [...] 6 hours as needed for nausea. Vit w/Ko-Xqsleuclq-VR (PNV PO) pyridoxine (VITAMIN B-6) 25 mg, [...] nursing note reviewed. Exam conducted with a cotton program technician present. Vitals: Estimated body mass index is 29.83 kg/m as calculated from the following: Height as of 02/06/24: 5' 6 . Weight as of this encounter: 184 lb 12.8 oz. BP: 112/62 Patient's last menstrual period was 07/23/2024. ASSESSMENT & PLAN ICD-10-CM 1. Second trimester ([facility]) Z34.92 POCT urinalysis dipstick manually resulted 2. 23 weeks gestation of ([facility]) Z3A.23 POCT urinalysis dipstick manually [...] of: Jack Woods DO documented in this encounterMoberly Regional Medical CenterXpcdhpfosb82-74-9652 History of Present illness Narrative* REKHA Ott [...] 6 hours as needed for nausea. Vit w/Ph-Iwjhqbqvv-SG (PNV PO) pyridoxine (VITAMIN B-6) 25 mg, [...] ASSESSMENT & PLAN ICD-10-CM 1. Second trimester ([facility]) Z34.92 POCT urinalysis dipstick manually resulted 2. 19 weeks gestation of ([facility]) Z3A.19 Return OB: Patient presents [...] behalf of: REKHA Ott documented in this encounterMoberly Regional Medical CenterQnpakzjyps39-67-6601 History of Present illness Narrative* Guadalupe Peres [...] nausea or vomiting., Disp: , Rfl: PNV 03-gjqp-vljmopytcyri-dha 29 mg iron-1 mg -350 mg comb [...] (2019) [facility] maternal- medicine :principles and practice [place], [place] : Hall/Elsevier Sonographic diagnosis of ovarian torsion: accuracy and predictive factors. Monica R, Jeff N, Zion N, Sohan-Chelsea G, Bright I. J Ultrasound Med. 2011 Jan;30(9):1205-10. Adnexal masses in : An updated review. Olivia AM, Dorie I, Adelaide DOMÍNGUEZ, Nory H, Alexi AbernathyTanja RI. [facility] J Med. 2017 Feb-Apr;7(4):153-157. doi: 10.4103/aj.AJM_22_17. PMID: [id number] Uterine fibroids, affecting I reviewed the uterine [...] and evaluation of bilateral adnexal masses, through [facility] Recommend repeat growth ultrasound in the 3rd trimester, through primary OB, given known uterine fibroid Anticipate term vaginal delivery at local hospital Precautions regarding shortness of breath and chest pain were reviewed with the patient today DISPOSITION: At this point the patient is in complete care of her receptionist secretary. Thank you for allowing me to participate in the care of Daphney Al. If there any questions please do not hesitate to contact us. Guadalupe Peres MD Maternal- Medicine [place] [id number] [facility] 1st [place] [address] This document was created with [employer] technology. Though I make every effort to review the dictation as it is transcribed, on occasion the spoken word can be misinterpreted by the technology leading to inappropriate words, phrases, or sentences. This note is addressed to the requesting provider as a consultation for clinical guidance. Specificmedical abbreviations are occasionally used and those are generally approved by the [place]?Board of?Obstetrics and?Gynecology?as well as?Graham chan abbreviations. The above plan of care was based solely on the diagnoses for which a consultation was requested. ?More frequent testing may be indicated based on her other medical/obstetrical conditions. The management of other or medical conditions is beyond the scope of requested consultation and will c mick to be followed by the primary receptionist secretary or primary care provider. Note to patient: [...] risk Have you been seen here at [facility] in a previous ? No Recent ER visits or hospitalizations? No Bring blood sugar log or meter with you today? (Please bring them with you for every visit at [facility]) N/A Flu vaccine (Mar-July)? N/A Any concerns that you would like me to mention to the provider today? R calf bruising, +Homans sign, wants to make sure about cysts, feeling nervous about cervix being short, has never been this far along. Right calf = 36.4cm, Left calf = 39.0cm [facility] History of Present illness Narrative* Lisa [...] 6 hours as needed for nausea. Vit w/Yp-Svfzbpcis-BN (PNV PO) pyridoxine (VITAMIN B-6) 25 mg, [...] nursing note reviewed. Exam conducted with a cotton program technician present. Vitals: Estimated body mass index is 27.02 kg/m as calculated from the following: Height as of 02/06/24: 5' 6 . Weight as of this encounter: 167 lb 6.4 oz. BP: 106/68 Patient's last menstrual period was 07/23/2024. ASSESSMENT & PLAN ICD-10-CM 1. Well woman exam with routine gynecological exam Z01.419 Pap Smear 2. Second trimester ([facility]) Z34.92 POCT urinalysis dipstick manually resulted Alpha fetoprotein, maternal Alpha fetoprotein, maternal 3. 15 weeks gestation of ([facility]) Z3A.15 POCT urinalysis dipstick manually resulted Alpha fetoprotein, maternal Alpha fetoprotein, maternal 4. Vaginal discharge N89.8 SURESWAB(R) ADVANCED VAGINITIS PLUS, TMA 5. STD exposure Z20.2 CHLAMYDIA TRACHOMATIS (GENITO/STI) Neisseria gonorrhea DNA probe, direct Return OB/Annual Exam: Patient presents today for a annual exam/routine obstetrics appointment. Patient is currently [id number]. Patient states she is doing well but [...] of: Jack Woods DO documented in this encounterMoberly [facility] [id number] History of Present illness Narrative* Lisa Prasad [...] 6 hours as needed for nausea. Vit w/Vz-Duldqrmak-AO (PNV PO) pyridoxine (VITAMIN B-6) 25 mg, [...] nursing note reviewed. Exam conducted with a cotton program technician present. Vitals: Estimated body mass index [...] or undercooked meat, and stay away from [facility]. Patient has been consulted regarding any [...] of: Jack Woods DO documented in this encounterMoberly Regional Medical [id number] History of Present illness Narrative* Manjula Elias [...] the following prescription(s): aspirin, omeprazole, ondansetron, vit w/bu-gxxeqgetb-et, and progesterone. Medical History: Active Ambulatory Problems [...] or undercooked meat, and stay away from [facility]. Patient has also been advised to [...] by: Manjula Elias MA documented in this encounterMoberly Regional Medical [id number] History of Present illness Narrative* Lisa Prasad, BRIANA - 04/10/2024 11:10 AM EST Reason for Appointment: Patient ID: Daphney Al is a 24 y.o. female who presents for Infertility Patient presents today for Fertility Follow Up appointment. MEDICATIONS Current Outpatient Medications Medication Instructions aspirin 81 MG oral suspension Vit w/Ke-Xcdqqjvmr-FJ (PNV PO) ALLERGIES Allergies Allergen Reactions Cephalexin [...] nursing note reviewed. Exam conducted with a cotton program technician present. Vitals: Estimated body mass index [...] Pt voiced understanding. Discussed LAST referral towards [facility]. Documented by Lisa Prasad LPN on behalf of: Jack Woods DO documented in this encounterMoberly Regional Medical [id number] History of Present illness Narrative* Lisa Prasad LPN - 2024 1:20 PM EDT Reason for Appointment: Patient ID: Daphney Al is a 23 y.o. female who presents for Infertility Patient presents today for Fertility Follow Up appointment. MEDICATIONS Current Outpatient Medications Medication Instructions aspirin 81 MG oral suspension Vit w/Mq-Qmephkepz-IX (PNV PO) ALLERGIES Allergies Allergen Reactions Cephalexin [...] nursing note reviewed. Exam conducted with a cotton program technician present. Vitals: Estimated body mass index [...] standing order of HCG. Documented by Lisa Prasda LPN on behalf of: Jack Woods DO documented in this encounterMoberly Regional Medical [id number] Evaluation note* Encounter Date Diagnosis Assessment Notes [...] treatment plan. Patient left in stable condition 1Ring Other Evaluation noteNo assessment information available [facility] Work Phone: Evaluation note* Diagnosis Encounter for infertility Hormone disorder Unspecified endocrine disorder documented in this encounter [facility]* Diagnosis Female infertility Female infertility of unspecified origin History of miscarriage Personal history of other genital system and obstetric disorders documented in this encounter [facility]* Diagnosis Missed menses , unspecified gestational age Encounter for supervision of normal first in first trimester Gastroesophageal reflux in Nausea and vomiting during documented in this encounter [facility]* Diagnosis 11 weeks gestation of First trimester state, incidental Other constipation Gastroesophageal reflux in documented in this encounter [facility]* Diagnosis Adnexal mass- Primary Other specified symptom associated with female genital organs 16 weeks gestation of Uterine fibroids affecting in second trimester Localized swelling of right lower extremity documented in this [facility]* Diagnosis Adnexal mass- Primary Other specified symptom associated with female genital organs Uterine fibroids affecting in second trimester Localized swelling of right lower extremity documented in this encounter [facility] note* Diagnosis Well woman exam with routine gynecological exam Routine gynecological examination Second trimester ([facility]) state, incidental 15 weeks gestation of ([facility]) Vaginal discharge Leukorrhea, not specified as infective STD exposure documented [facility] encounter [facility]* Diagnosis Second trimester ([facility]) state, incidental 19 weeks gestation of ([facility]) documented in this encounter [facility]Evaluation [facility]* Diagnosis Second trimester ([facility]) [...] Description Date Surgical History tonsillectomy Surgical Historylaparoscopy 1Ring Other InstructionsNot on filedocumented in this encounter [facility] [employer] SystemInstructionsNot on filedocumented in this encounter [facility] SystemReason for referral (narrative)No reason for referral information availableCity [facility]tr Work Phone: Summary Purpose Family History Relationship Condition Age at Onset Recorded Date/T juliette father Congestive heart failure Unknown Advance Directives TypeDate RecordedPatient RepresentativeExplanationAdvance Directives and Living WillPower of Cd 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 * Abdominal Pain (Mauritian) * Appendicitis (Mauritian) documented in this encounter Assessments Diagnosis Abdominal [...] and content) DATE CREATED AUTHOR 02/01/2019 [facility] DATE CREATED AUTHOR AUTHOR'S ORGANIZ ATION 05/05/2023 [facility] DATE CREATED AUTHOR AUTHOR'S ORGANIZ ATION 11/13/2024 [facility] DATE CREATED AUTHOR AUTHOR'S ORGANIZ ATION 11/13/2024 [facility] DATE CREATED AUTHOR AUTHOR'S ORGANIZ ATION 12/12/2024 [facility] DATE CREATED AUTHOR AUTHOR'S ORGANIZ ATION 01/26/2025 [facility] DATE CREATED AUTHOR AUTHOR'S ORGANIZ ATION 03/14/2025 [facility] EPIC Reason for Visit (unrecogniz ed section and content) ReasonCommentsRoutine VisitSpecialtyDiagnoses / ProceduresReferred By ContactReferred To ContactObstetrics and Gynecology Diagnoses Enlarged & Heterogeneous Bilateral Ovaries 2.3cm Isoechoic Left-sided Lesion Possible Endometrioma Procedures [place] [facility]NA[facility] [address] [place] [address] Jack Woods, DO [address] [place] [address] [place] [address] Phone: tel: fax: Referral IDStatusReasonStart DateExpiration DateVisits RequestedVisits [id number] PainRLQ pain x 1 hourReasonCommentsInfertilityReasonCommentsAmenorrheaReasonCommentsEnlarged & Heterogeneous [...] MemberRelationshipSpecialtyStart DateEnd Alberto Mayes MD [address] [place] [phone] PCP - Fpfwxon59/19/23 Paloma Vazquez DO [address] [place] [address] Referring PhysicianObstetrics and Oaxlnqxfdr86/12/23Te MemberRelationship SpecialtyStart DateEnd Alberto Mayes MD [address] [phone] PCP [facility]05/02/23 Paloma Vazquez DO [address] [place] [address] Referring PhysicianObstetrics and Pwwpagdwlj67/12/23Te MemberRelationship SpecialtyStart DateEnd Date Alberto Mayes MD [address] [place] [phone] PCP Aljazla04/19/23 Paloma Vazquez DO [address] [place] [address] Referring PhysicianObstetrics and Hyvidazikj36/12/23Te MemberRelationship SpecialtyStart DateEnd Date Alberto Mayes MD [address] [place] [phone] PCP - Tsmpjgu17/19/23 Paloma Vazquez DO [address] [place] [address] Referring PhysicianObstetrics and Jstebyfedh65/12/23Te MemberRelationship SpecialtyStart DateEnd Date Alberto Mayes MD [address] [place], [place] [address] [place] [phone] PCP - Cronkik94/19/23 Paloma Vazquez DO [address] [place] [address] Referring PhysicianObstetrics and Crqerybfyk07/12/23Te MemberRelationship SpecialtyStart DateEnd Date Alberto Mayes MD [address] [place], [place] [address] [phone] PCP - Olrwtxq97/19/23 Paloma Vazquez DO [address] [place] [address] Referring PhysicianObstetrics and Kxtrrjrrij36/12/23Te MemberRelationship SpecialtyStart DateEnd Date Alberto Mayes MD [address] [place] [address] PCP - Lwasvvo81/19/23 Paloma Vazquez DO [address] [place] [address] Referring PhysicianObstetrics and Tloltiokuv93/12/23Te MemberRelationship SpecialtyStart DateEnd Date Alberto Mayes MD [address] [place] [address] PCP - Tnytrsb01/19/23 Paloma Vazquez DO [address] [place] [address] Referring PhysicianObstetrics and Vhebeovkwb40/12/23Team MemberRelationship SpecialtyStart DateEnd Date Alberto Mayes MD [address] [place] [address] PCP - Lcwasip01/19/23 Paloma Vazquez DO [address] [place] [address] Referring PhysicianObstetrics and Dlhkkgcnqk68/12/23Team MemberRelationship SpecialtyStart DateEnd Date Alberto Mayes MD [address] [place] [address] PCP - Abbjwsx70/19/23 Paloma Vazquez DO [address] [place] [address] Referring PhysicianObstetrics and Ijzxgfnvjm09/12/23 Team Status: Inactive Member Role Status Dates Jack Woods DO Attending Provider Active Start : November 05, 2024 End: November 05, 2024Team MemberRelationshipSpecialtyStart DateEnd Date Alberto Maeys MD [address] [place] [address] PCP - Odjeaog47/19/23 Paloma Vazquez DO [address] [place] [address] Referring PhysicianObstetrics and Ycwntykifq01/12/23Team MemberRelationship SpecialtyStart DateEnd Date Alberto Mayes MD PCP - Gxqwtvz75/23Team MemberRelationshipSpecialtyStart DateEnd Date Alberto Mayes MD PCP - Bucvfka77/23Team MemberRelationshipSpecialtyStart DateEnd Date Alberto Mayes MD PCP - Xkokoao82/Team MemberRelationshipSpecialtyStart DateEnd Date Alberto Mayes MD PCP - Uvtxjiy86/23Team MemberRelationshipSpecialtyStart DateEnd Date Alberto Mayes MD PCP - Kzmysfe84/23Team MemberRelationshipSpecialtyStart DateEnd Date Alberto Mayes MD PCP - Qkiyaib73/23Team MemberRelationshipSpecialtyStart DateEnd Date Alberto Mayes MD PCP - Gpkawbj93//23Team MemberRelationshipSpecialtyStart DateEnd Date Alberto Mayes MD PCP - Bsrjxsp16//23Team MemberRelationshipSpecialtyStart DateEnd Date Alberto Mayes MD PCP - Myegwfm78/19/23Te MemberRelationshipSpecialtyStart DateEnd Date Alberto Mayes MD [facility] - [place] [phone] MemberRelationshipSpecialtyStart DateEnd Date Alberto Mayes MD [facility] - [place] [address] MemberRelationshipSpecialtyStart DateEnd Date Alberto Mayes MD [facility] - Tpaniju05/19/23 Goals (unrecognized section and content) Goals may [...] BE BASED ON THE PRIMARY CLINICAL RECORDS. [facility] [employer] [facility]. provides no warranty or guarantee of the accuracy or completeness of information in this document.
--- NOTE | 2025-05-12 09:38 | PC.NURSE ---
Daphney and Guy arrive for support. Daphney states formula supplementation causes baby to want long stretches between feeds, and is too sleepy to wake. Continues to feed every 2-3 hours. Has been feeding baby from left breast only and using shield until can have pediatric dentist evaluate for tongue and lip tie. States feels like using shield helps baby stay at breast longer and is more active with feed. Has been nursing 20-30 minutes per feed. Obtains 15ml - 30ml post feed. Baby does not always take supplement when offered. Weight today is returned to weight (7-3), up 3 oz from PCP weight of 7-0 05/07/2025. Plan for feeds includes: feeding on demand, or every 3 hours as infant signals. Use nipple shield for latching . Call and schedule evaluation with pediatric dentist. and continue offering supplemental breastmilk via bottle when infant needs based on hunger cues. Daphney diaz feels good with feeding plan Will return 05/19/2025 for further support. Couplet home at this time.
== END 2025-05-12 09:47 | disposition home or self-care (01) ==
LOC: FBCO 08:42
PROVIDERS: PCP Family Medicine; Visit Provider Obstetrics & Gynecology
DX: Z39.1 Encounter for care and examination of lactating mother (principal)
CPT/HCPCS: G0463